=== PATIENT | female | born 1970 | race Caucasian/White ===

== ENCOUNTER 2017-08-28 12:02 | Emergency (ER) | payer BC ==
--- NOTE | 2017-08-28 12:58 | RAD REPORT ---
EXAM DESCRIPTION: CT - Head Brain Wo Cont - 08/28/2017 12:39 pm CLINICAL HISTORY: Numbness left-sided COMPARISON: 2015 TECHNIQUE: Computed axial tomography of the head was obtained. IV contrast was not requested. All CT scans are performed using dose optimization technique as appropriate and may include automated exposure control or mA/KV adjustment according to patient size. FINDINGS: An intracranial bleed is not seen . The ventricles are normal in caliber. No extra-axial fluid collection is noted. Fluid within the sinuses/ mastoids is not seen. IMPRESSION: No acute intracranial abnormality is seen. If patient's symptoms persist MRI of the bra in would be recommended.
--- NOTE | 2017-08-28 13:27 | RAD REPORT ---
EXAM DESCRIPTION: RAD - Chest Single View - 08/28/2017 1:04 pm CLINICAL HISTORY: Left-sided chest pain COMPARISON: September 2016 TECHNIQUE: AP portable chest image was obtained 1243 hours . FINDINGS: Lung volumes are low. Lung kerr are clear. No failure or volume overload. Lung markings are similar to comparison. Heart and vasculature are normal. No measurable pleural effusion and no pn eumothorax. No gross bony abnormality seen. No acute aortic findings suspected. IMPRESSION: No acute cardiopulmonary process. No significant change from comparison.
--- NOTE | 2017-08-28 13:34 | EKG ---
Test Date: 2017-08-28 Test Time: 12:09:00 Timber Selector: DEVIKA MEASUREMENT RESULTS: Intervals: Rate: 91 CT: 182 QRSD: 92 QT: 368 QTc: 452 [place]: P: 49 CT: 182 QRS: 24 T: 16 INTERPRETIVE STATEMENTS: Normal sinus rhythm Normal ECG Compared to ECG 10/17/2016 19:26:30 No significant changes Electronically Signed On 08-28-17 13:34:09 CDT by Eleazar Maxwell
[2017-08-28 14:02] LABS: Absolute Monocytes 0.7 K/uL (0.1-1.3); Absolute Neutrophil 6.9 K/uL (1.8-8.0); Basophils % 0.2 % (0-1.3); Eosinophils % 1.1 % (0-4.4); Hematocrit 40.4 % (36.0-45.0); Lymphocytes % 20.4 % (15.3-44.8); MCH 26.6 pg (27.0-35.0); MPV 9.1 fL (7.6-11.3); Monocytes % 7.3 % (3.3-12.3); RBC Red Blood Cell Count 4.99 M/uL (3.86-4.86)
[2017-08-28 14:05] LABS: Protime INR 1.01
[2017-08-28 14:09] LABS: Potassium 4.1 mEq/L (3.6-5.0)
[2017-08-28 14:15] LABS: Albumin 3.9 g/dL (3.2-5.5); Bilirubin Direct 0.1 mg/dL (0-0.2); Bilirubin Total 0.5 mg/dL (0.3-1.2); Protein, Total 7.4 g/dL (6.0-8.3)
[2017-08-28] MEDS ORDERED: FENTANYL CITR 100 MCG/2 ML ONE (14:37)
[2017-08-28] MEDS ORDERED: INSULIN -REGULAR HUMAN 50 UNIT/0.5 ML ML ONE ×2 (14:37→18:06)
[2017-08-28] MEDS ORDERED: NA CHLORIDE 0.9% 1,000 ML ONE ×2 (14:37→18:06)
[2017-08-28] MEDS ORDERED: ONDANSETRON 4 MG/2 ML VIAL ONE (16:02)
[2017-08-28] MEDS ORDERED: ASPIRIN 81 MG CHEWABLE TABLET ONE (16:28)
[2017-08-28 17:15] LABS: Urine Blood NEGATIVE (NEG); Urine Glucose 3+ (NEG); Urine Protein 1+ (NEG); Urine Specific Gravity 1.025 (1.005-1.030)
--- NOTE | 2017-08-28 17:22 | ER ---
Nurse's Notes [facility] Name: Elly Clarke Age: 47 yrs Sex: Female : 1970 Arrival Date: 08/28/2017 Time: 12:03 Bed 8 Private MD: Pavel Curran T Diagnosis: Suspected CVA;Hyperglycemia, unspecified Presentation: 08/28 12:04 Presenting complaint: EMS states: at 0300 this morning pt reports numbness to the left sg side, CP, and nausea. pt denies F/V/D, reports chronic pain, chronic pancreatitis, Diabetes, hypertension, changes made in BP medications, new BP medications made but cannot remember the names of the meds, was taken off the propranolol. Transition of care: patient was not received from another setting of care. Onset of symptoms was August 28, 2017. Risk Assessment: Do you want to hurt yourself or someone else? Patient reports no desire to harm self or others. Initial Sepsis Screen: Does the patient meet any 2 criteria? No. Patient's initial sepsis screen is negative. Does the patient have a suspected source of infection? No. Patient's initial sepsis screen is negative. Care prior to arrival: Medication(s) given: ASA, 325 mg, Glucose check: 390. 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 12:04 Method Of Arrival: EMS: [facility] sg 12:04 Acuity: HANNAH 3 sg Historical: - Allergies: 12:10 Claritin (insomnia); sg 12:10 Compazine (Seizures); sg 12:10 Demerol (HEART RACING); sg 12:10 (Hives); sg 12:10 Morphine (RACING HEART); sg 12:10 mushrooms; sg - Home Meds: 12:10 Klonopin 0.5 mg Oral tab 1 tab 2 times per day [Active]; Metformin Oral [Active]; sg Abilify Oral [Active]; Celexa Oral [Active]; tizanidine Oral BID [Active]; - PMHx: 12:10 Arthritis; Chrohns; Chronic pain; Diabetes - NIDDM; Dramatic migraine events; sg Gastroparesis; High Cholesterol; Hypertension; Pancreatitis; spinal stenosis; - PSHx: 12:10 Tonsillectomy; Hysterectomy; Knee surgery; Cholecystectomy; sg - Immunization history:: Adult Immunizations up to date. - Social history:: Smoking status: Patient/guardian denies using tobacco. - Ebola Screening: : Patient negative for fever greater than or equal to 101.5 degrees Fahrenheit, and additional compatible Ebola Virus Disease symptoms Patient denies exposure to infectious person Patient denies travel to an Ebola-affected area in the 21 days before illness onset No symptoms or risks identified at this time. Screenin:12 Abuse screen: Denies threats or abuse. Denies injuries from another. Nutritional sg screening: No deficits noted. Tuberculosis screening: No symptoms or risk factors identified. Never had TB. Fall Risk None identified. 13:00 The patient has not been NPO before screening. The patient is alert, able to follow sg commands. The patient does not exhibit slurred or garbled speech The patient is not exhibiting difficulty speaking. The patient does not exhibit difficulty understanding words. The patient is able to swallow own secretions with no drooling or need for suction. Patient tolerated one teaspoon of water. No drooling, immediate coughing, gurgling, or clearing of the throat was noted. The patient tolerated 90mL of water. No drooling, immediate coughing, gurgling, or clearing of the throat was noted. The patient passed the bedside swallow screening. Oral medications may be given as ordered. Contact Physician for further diet orders. Provider notified of bedside swallow screening results: Lj CHOWDARY. Assessment: 12:10 General: Appears in no apparent distress. comfortable, well groomed, well developed, sg well nourished, Behavior is cooperative, appropriate for age, anxious. Pain: Complains of pain in chest, left arm and left leg Pain currently is 10 out of 10 on a pain scale. Quality of pain is described as aching. Pain: Pain does not radiate. Pain began 0300. Neuro: Level of Consciousness is awake, alert, obeys commands, Oriented to person, place, time, situation, Insulator Technician are equal bilaterally Moves all extremities. Speech is normal, Facial symmetry appears normal. Cardiovascular: Heart tones S1 S2 present Capillary refill is brisk in bilateral fingers Patient's skin is warm and dry. Chest pain is denied. Respiratory: Airway is patent Respiratory effort is even, unlabored, Respiratory pattern is regular, symmetrical. GI: No signs and/or symptoms were reported involving the gastrointestinal system. : No signs and/or symptoms were reported regarding the genitourinary system. EENT: No signs and/or symptoms were reported regarding the EENT system. Derm: Skin is pink, warm \\T\\ dry. Musculoskeletal: Reports numbness in left arm and left leg. 12:10 Neuro: Reports numbness in left arm and left leg describes the sensation in legs as a sg "stepping on sharp pins feeling." Denies weakness blurred vision dizziness, difficulty swallowing, headache photophobia diplopia. 14:38 Reassessment: Patient appears in no apparent distress at this time. Patient and/or sg family updated on plan of care and expected duration. Pain level reassessed. at bedside at this time Patient states symptoms have not improved. 15:50 Reassessment: Patient appears in no apparent distress at this time. Patient and/or sg family updated on plan of care and expected duration. Pain level reassessed. Patient is alert, oriented x 3, equal unlabored respirations, skin warm/dry/pink. pt reports numbness continues, denies worsening s/s at this time, will continue to monitor Patient states symptoms have not improved. 16:20 Reassessment: Patient appears in no apparent distress at this time. Patient and/or sg family updated on plan of care and expected duration. Pain level reassessed. Patient is alert, oriented x 3, equal unlabored respirations, skin warm/dry/pink. pt requesting more pain medication at this time, Lj CHOWDARY notified, awaiting new orders at this time. 17:49 Reassessment: pt assisted to the restroom, pt ambulatory to wheelchair, no problems sg encountered while using the restroom per pt report, pt assisted back to bed, placed back to monitors, bed in low and locked position, call light within reach, srx2, no new orders received at this time. Vital Signs: 12:11 BP 107 / 60; Pulse 90; Resp 19 S; Temp 98.4; Pulse Ox 96% ; Weight 81.65 kg (R); Pain sg 10/10; 17:47 BP 106 / 82; Pulse 78; Resp 16; Pulse Ox 98% on R/A; Pain 6/10; sg Bird Coma Score: 12:20 Eye Response: spontaneous(4). Verbal Response: oriented(5). Motor Response: obeys sg commands(6). Total: 15. NIH Stroke Scale Scores: 16:57 NIHSS Score: 1 jr8 ED Course: 12:03 Patient arrived in ED. sg 12:03 Pavel Curran MD is Private Physician. sg 12:03 Arm band placed on. sg 12:08 Triage completed. sg 12:09 Lj Love PA is PHCP. jr8 12:09 Norman Pollack MD is Attending Physician. jr8 12:10 Patient has correct armband on for positive identification. cafeteria monitor on. Pulse sg ox on. NIBP on. 12:15 EKG done, by echo vascular technologist. reviewed by Lj CHOWDARY. at1 12:[address] via wheelchair. sw 12:38 CT completed. Patient tolerated procedure well. Patient moved back from CT. sj 12:39 CT Head Brain wo Cont In Process Unspecified. EDMS 12:52 Pillow given. bd 12:55 Missed attempt(s): 24 gauge in right hand. Bleeding controlled, band aid applied, dh3 catheter tip intact. 13:03 Missed attempt(s): 24 gauge in right elbow. Bleeding controlled, band aid applied, dh3 catheter tip intact. 13:05 XRAY Chest (1 view) In Process Unspecified. EDMS 13:08 X-ray completed. Portable x-ray completed in exam room. Patient tolerated procedure mh1 well. 13:10 Missed attempt(s): 20 gauge in right upper arm. Bleeding controlled, band aid applied, aa5 catheter tip intact. 13:13 Missed attempt(s): 24 gauge in right upper arm. Bleeding controlled, band aid applied, aa5 catheter tip intact. 13:14 Facundo Martinez, RN is Primary Nurse. sg 13:15 Missed attempt(s): 22 gauge in left forearm. Bleeding controlled, band aid applied, aa5 catheter tip intact. 13:30 Initial lab(s) drawn, by me, sent to lab. Inserted saline lock: 22 gauge in left sv antecubital area, using aseptic technique. ,using aseptic technique. diffusics Blood collected. Flushed left antecubital with 5 ml normal saline. 14:26 Notified Nurse Practitioner and/or Physician Fighting Vehicle Systems Maintainer of a critical lab result(s), aa5 glucose 534. 16:48 Urine collected: clean catch specimen, sediment noted, orange. dh3 18:50 No provider procedures requiring assistance completed. Patient transferred, IV remains sg in place. intact, No redness/swelling at site. Pressure dressing applied. Patient maintains SpO2 saturation greater than 95% on room air. Administered Medications: 14:40 Drug: fentaNYL (PF) 25 mcg Route: IVP; Site: left antecubital; sg 15:45 Follow up: Response: No adverse reaction; Pain is decreased sg 14:40 Drug: NS 0.9% 1000 ml Route: IV; Rate: 1000 ml; Site: left antecubital; sg 14:50 Drug: Insulin Regular Human 10 units {Co-Signature: yesika (Julianne Mariee RN).} Route: sg IVP; Site: left antecubital; 16:34 Follow up: Response: Blood sugar is lowered sg 16:00 Drug: Zofran 4 mg Route: IVP; Site: left antecubital; sg 16:33 Follow up: Response: No adverse reaction; Nausea is decreased sg 16:33 Drug: Aspirin Chewable Tablet 324 mg Route: PO; sg 17:15 Follow up: Response: No adverse reaction sg 17:30 Drug: fentaNYL (PF) 25 mcg Route: IVP; Site: left antecubital; sg 18:00 Drug: Insulin Regular Human 5 units {Co-Signature: sv (Julianne Mariee RN).} Route: sg Sub-Q; Site: right upper arm; 18:00 Drug: Rocephin - (cefTRIAXone) 2 grams Route: IVPB; Infused Over: 30 mins; Site: left sg antecubital; 18:22 Drug: NS 0.9% 1000 ml Route: IV; Rate: 75 ml/hr; Site: left antecubital; sg 18:25 Drug: LanTUS 15 units Route: Sub-Q; Site: right upper arm; Point of Care Testing: Blood Glucose: 16:20 Blood Glucose: 308 mg/dL; dh3 Ranges: Outcome: 17:21 ER care complete, transfer ordered by MD. rushing 18:50 Transferred by ground EMS to [facility], Transfer form completed. sg 18:50 Condition: stable 18:50 Instructed on the need for transfer, safety practices, Demonstrated understanding of instructions. 18:57 Patient left the ED. NIH Stroke Scale - NIH Stroke Score Date: 08/28/2017 Time: 16:57 Total Score = 1 1a. Level of Consciousness (LOC) - 0(Alert) 1b. Level of Consciousness (LOC) (Year \\T\\ Age) - 0(Both) 1c. LOC Commands (Open \\T\\ Closes Eyes/Director Of Quality) - 0(Both) 2. Best Gaze (Lateral Gaze Paresis) - 0(Normal) 3. Visual Field Loss - 0(No visual loss) 4. Facial Palsy - 0(Normal) 5a. Left Arm: Motor (10-second hold) - 0(No drift) 5b. Right Arm: Motor (10-second hold) - 0(No drift) 6a. Left Leg: Motor (5-second hold - always test supine) - 0(No drift) 6b. Right Leg: Motor (5-second hold - always test supine) - 0(No drift) 7. Limb Ataxia (finger/nose \\T\\ heel/salazar - test with eyes open) - 1(Present in one limb) 8. Sensory Loss (pinprick arms/legs/face) - 0(Normal) 9. Best Language: Aphasia (description/naming/reading) - 0(No aphasia) 10. Dysarthria (speech clarity - read or repeat words) - 0(Normal) 11. Extinction and Inattention (visual/tactile/auditory/spatial/personal) - 0(No abnormality) Initials: сергей Addendum: 09/02/2017 17:51 Addendum: Culture Results: Positive urine culture. Phone call Attempt #[address] [facility] who state that patient has been discharged home. PT had no complaints of UTI. Signatures: Dispatcher [employer] EDMS Maribel Marin Stephanie, RN RN sv Facundo Martinez RN RN sg Aliza Tariq Susan sj Calderon, Audri, RN RN earl5 Akiko Meyers RN RN Lj Love PA PA jrDeanna neville, day care provider EKG Tat1 Keily Cuenca Deanna 3 Julianne Mariee RN sv Corrections: (The following items were deleted from the chart) 08/28 14:51 14:40 fentaNYL (PF) 50 mcg IVP in left antecubital sg sg
--- NOTE | 2017-08-28 17:22 | EDPHYS ---
Physician Documentation [facility] Name: Elly Clarke Age: 47 yrs Sex: Female : 1970 Arrival Date: 08/28/2017 Time: 12:03 Bed 8 Private MD: Pavel Curran T ED Physician Norman Pollack HPI: 08/28 13:59 This 47 yrs old Female presents to ER via EMS with complaints of Chest Pain > jr8 29 y/o, Numbness. 13:59 The patient or guardian reports chest pain that is located primarily in the anterior jr8 chest wall, left. Onset: acutely, today. The pain radiates to the left arm. Associated signs and symptoms: Pertinent positives: numbness and weakness of left arm. The chest pain is described as a pressure. Duration: The patient or guardian reports a single episode. Modifying factors: The symptoms are alleviated by nothing. the symptoms are aggravated by nothing. Severity of pain: At its worst the pain was moderate in the emergency department the pain is unchanged. The patient has not experienced similar symptoms in the past. The patient has not recently seen a physician. 14:06 Patient stated that s/s started early this morning around 3 am . jr8 Historical: - Allergies: 12:10 Claritin (insomnia); sg 12:10 Compazine (Seizures); sg 12:10 Demerol (HEART RACING); sg 12:10 (Hives); sg 12:10 Morphine (RACING HEART); sg 12:10 mushrooms; sg - Home Meds: 12:10 Klonopin 0.5 mg Oral tab 1 tab 2 times per day [Active]; Metformin Oral [Active]; sg Abilify Oral [Active]; Celexa Oral [Active]; tizanidine Oral BID [Active]; - PMHx: 12:10 Arthritis; Chrohns; Chronic pain; Diabetes - NIDDM; Dramatic migraine events; sg Gastroparesis; High Cholesterol; Hypertension; Pancreatitis; spinal stenosis; - PSHx: 12:10 Tonsillectomy; Hysterectomy; Knee surgery; Cholecystectomy; sg - Immunization history:: Adult Immunizations up to date. - Social history:: Smoking status: Patient/guardian denies using tobacco. - Ebola Screening: : Patient negative for fever greater than or equal to 101.5 degrees Fahrenheit, and additional compatible Ebola Virus Disease symptoms Patient denies exposure to infectious person Patient denies travel to an Ebola-affected area in the 21 days before illness onset No symptoms or risks identified at this time. ROS: 13:59 Eyes: Negative for injury, pain, redness, and discharge, ENT: Negative for injury, jr8 pain, and discharge, Neck: Negative for injury, pain, and swelling, Respiratory: Negative for shortness of breath, cough, wheezing, and pleuritic chest pain, Abdomen/GI: Negative for abdominal pain, nausea, vomiting, diarrhea, and constipation, Back: Negative for injury and pain, MS/Extremity: Negative for injury and deformity, Skin: Negative for injury, rash, and discoloration. 13:59 Cardiovascular: Positive for chest pain, Negative for edema, orthopnea, palpitations, paroxysmal nocturnal dyspnea. 13:59 Neuro: Positive for numbness, weakness, of the left arm. Exam: 13:59 Eyes: Pupils equal round and reactive to light, extra-ocular motions intact. Lids and jr8 lashes normal. Conjunctiva and sclera are non-icteric and not injected. Cornea within normal limits. Periorbital areas with no swelling, redness, or edema. ENT: Nares patent. No nasal discharge, no septal abnormalities noted. Tympanic membranes are normal and external auditory canals are clear. Oropharynx with no redness, swelling, or masses, exudates, or evidence of obstruction, uvula midline. Mucous membranes moist. Neck: Trachea midline, no thyromegaly or masses palpated, and no cervical lymphadenopathy. Supple, full range of motion without nuchal rigidity, or vertebral point tenderness. No Meningismus. Cardiovascular: Regular rate and rhythm with a normal S1 and S2. No gallops, murmurs, or rubs. Normal PMI, no JVD. No pulse deficits. Respiratory: Lungs have equal breath sounds bilaterally, clear to auscultation and percussion. No rales, rhonchi or wheezes noted. No increased work of breathing, no retractions or nasal flaring. Abdomen/GI: Soft, non-tender, with normal bowel sounds. No distension or tympany. No guarding or rebound. No evidence of tenderness throughout. Back: No spinal tenderness. No costovertebral tenderness. Full range of motion. Skin: Warm, dry with normal turgor. Normal color with no rashes, no lesions, and no evidence of cellulitis. MS/ Extremity: Pulses equal, no cyanosis. Neurovascular intact. Full, normal range of motion. 13:59 Neuro: Orientation: to person, place \T\ time. Mentation: is normal, Memory: is normal, Cranial nerves: CN I not tested, CN II- XII are normal as tested, visual kerr are intact. extraocular movements are intact, Facial palsy and sensory deficits are absent. Nystagmus is absent. Speech is clear and appropriate. Tongue strength is normal, Cerebellar function: normal finger to nose testing, heel to salazar testing is normal, Motor: moves all fours, strength is 5/5 in the right arm, strength is 4/5 in the left arm, Sensation: no obvious gross deficits, seizure activity, is not displayed by the patient, Abnormal movements: there are no abnormal movements. Vital Signs: 12:11 BP 107 / 60; Pulse 90; Resp 19 S; Temp 98.4; Pulse Ox 96% ; Weight 81.65 kg (R); Pain sg 10/10; 17:47 BP 106 / 82; Pulse 78; Resp 16; Pulse Ox 98% on R/A; Pain 6/10; sg NIH Stroke Scale Scores: 16:57 NIHSS Score: 1 jr8 Bird Coma Score: 12:20 Eye Response: spontaneous(4). Verbal Response: oriented(5). Motor Response: obeys sg commands(6). Total: 15. MDM: 12:09 Patient medically screened. 8 16:04 HEART Score: History: Moderately Suspicious (1), ECG: Normal (0), Age: > 45 and < 65 jr8 years (1), Risk Factors: 1 or 2 risk factors (1), [Hypertension] [DM]. The patient was given aspirin in the Emergency Department. Data reviewed: vital signs, nurses notes, lab test result(s), EKG, radiologic studies, CT scan, plain films. 17:18 ED course: Discussed plan of care with Dr. Parker and patient. Patient consented to 8 being transferred since she has metal in abdomen and near spine and kidneys are too bad to do CTA head. Dr. Montenegro accepted at [facility] . ED course: Patient with suspected stroke but well outside TPA window. No TPA given for that reason . 08/28 12:10 Order name: Basic Metabolic Panel; Complete Time: 14:28 08/28 12:10 Order name: BNP; Complete Time: 15:27 08/28 12:10 Order name: CBC with Diff; Complete Time: 14:28 08/28 12:10 Order name: CPK; Complete Time: 14:28 08/28 12:10 Order name: LFT's; Complete Time: 14:28 08/28 12:10 Order name: Magnesium; Complete Time: 14:28 08/28 12:10 Order name: PT-INR; Complete Time: 14:28 08/28 12:10 Order name: Troponin (emerg Dept Use Only); Complete Time: 14:28 08/28 12:10 Order name: XRAY Chest (1 view); Complete Time: 13:28 08/28 12:10 Order name: CT Head Brain wo Cont; Complete Time: 13:12 08/28 16:48 Order name: Urine Microscopic Only; Complete Time: 17:46 3 08/28 17:14 Order name: Urine Dipstick--Ancillary (enter results); Complete Time: 17:21 5 08/28 17:14 Order name: Urine --Ancillary (enter results); Complete Time: 17:21 08/28 17:24 Order name: Urine Culture [facility] 08/28 12:10 Order name: EKG; Complete Time: 12:10 08/28 12:10 Order name: Cardiac monitoring; Complete Time: 13:49 08/28 12:10 Order name: EKG - Nurse/Tech; Complete Time: 13:49 08/28 12:10 Order name: IV Saline Lock; Complete Time: 13:43 08/28 12:10 Order name: Labs collected and sent; Complete Time: 13:43 08/28 12:10 Order name: O2 Per Protocol; Complete Time: 13:49 08/28 12:10 Order name: O2 Sat Monitoring; Complete Time: 13:49 08/28 12:10 Order name: Urine Dipstick-Ancillary (obtain specimen); Complete Time: 14:45 Administered Medications: 14:40 Drug: fentaNYL (PF) 25 mcg Route: IVP; Site: left antecubital; sg 15:45 Follow up: Response: No adverse reaction; Pain is decreased sg 14:40 Drug: NS 0.9% 1000 ml Route: IV; Rate: 1000 ml; Site: left antecubital; sg 14:50 Drug: Insulin Regular Human 10 units {Co-Signature: yesika (Julianne Mariee RN).} Route: sg IVP; Site: left antecubital; 16:34 Follow up: Response: Blood sugar is lowered sg 16:00 Drug: Zofran 4 mg Route: IVP; Site: left antecubital; sg 16:33 Follow up: Response: No adverse reaction; Nausea is decreased sg 16:33 Drug: Aspirin Chewable Tablet 324 mg Route: PO; sg 17:15 Follow up: Response: No adverse reaction sg 17:30 Drug: fentaNYL (PF) 25 mcg Route: IVP; Site: left antecubital; sg 18:00 Drug: Insulin Regular Human 5 units {Co-Signature: sv (Julianne Mariee RN).} Route: sg Sub-Q; Site: right upper arm; 18:00 Drug: Rocephin - (cefTRIAXone) 2 grams Route: IVPB; Infused Over: 30 mins; Site: left sg antecubital; 18:22 Drug: NS 0.9% 1000 ml Route: IV; Rate: 75 ml/hr; Site: left antecubital; sg 18:25 Drug: LanTUS 15 units Route: Sub-Q; Site: right upper arm; sg Point of Care Testing: Blood Glucose: 16:20 Blood Glucose: 308 mg/dL; dh3 Ranges: Critical Glucose Levels:Adult <50 mg/dl or >400 mg/dl <40 mg/dl or >180 mg/dl Disposition: 08/28/17 17:21 Transfer ordered to [facility]. Diagnosis are Suspected CVA, Hyperglycemia, unspecified. - Reason for transfer: Higher level of care. - Accepting physician is Lan. - Condition is Stable. - Problem is new. - Symptoms have improved. NIH Stroke Scale - NIH Stroke Score Date: 08/28/2017 Time: 16:57 Total Score = 1 1a. Level of Consciousness (LOC) - 0(Alert) 1b. Level of Consciousness (LOC) (Year \T\ Age) - 0(Both) 1c. LOC Commands (Open \T\ Closes Eyes/Corner Cutter Machine Operator) - 0(Both) 2. Best Gaze (Lateral Gaze Paresis) - 0(Normal) 3. Visual Field Loss - 0(No visual loss) 4. Facial Palsy - 0(Normal) 5a. Left Arm: Motor (10-second hold) - 0(No drift) 5b. Right Arm: Motor (10-second hold) - 0(No drift) 6a. Left Leg: Motor (5-second hold - always test supine) - 0(No drift) 6b. Right Leg: Motor (5-second hold - always test supine) - 0(No drift) 7. Limb Ataxia (finger/nose \T\ heel/salazar - test with eyes open) - 1(Present in one limb) 8. Sensory Loss (pinprick arms/legs/face) - 0(Normal) 9. Best Language: Aphasia (description/naming/reading) - 0(No aphasia) 10. Dysarthria (speech clarity - read or repeat words) - 0(Normal) 11. Extinction and Inattention (visual/tactile/auditory/spatial/personal) - 0(No abnormality) Initials: jr8 Addendum: 08/30/2017 13:30 Co-signature as Attending Physician, Norman Pollack MD. Signatures: Dispatcher [employer] EDNM Facundo Martinez RN RN Marie Alegria RN RN aa5 Lj Love PA PA jr8 Norman Pollack MD MD Julianne Mariee RN sv Corrections: (The following items were deleted from the chart) 08/28 13:18 13:13 Brain Wo Cont+[email or web address].RAD.[email or web address] ordered. EDNM EDMS 16:58 12:09 NIHSS Score: 0 jr8 jr8 18:57 17:21 08/28/2017 17:21 Transfer ordered to [facility]. sg Diagnosis is Suspected CVA; Hyperglycemia, unspecified. Reason for transfer: Higher level of care. Accepting physician is Lan. Condition is Stable. Problem is new. Symptoms have improved. jr8
[2017-08-28 17:23] LABS: Urine Bacteria 20-50 /HPF (<20); Urine Culture Reflex Order REFLEXED; Urine RBC <5 /HPF (NONE SEEN)
[2017-08-28] MEDS ORDERED: CEFTRIAXONE/SWI 1gm 2 GM/20 ML SYR ONE (18:08)
[2017-08-28] MEDS ORDERED: INSULIN DETEMIR 100 UNIT/1 ML INSULIN SQ ONE (18:48)
[2017-08-28 19:01] VITALS: TEMP 98.4
[2017-08-28 19:02] VITALS: BP 106/82; O2SAT 98
== END 2017-08-28 18:57 | disposition short-term general hospital (02) ==
LOC: ER 12:02
DX: E11.65 Type 2 diabetes mellitus with hyperglycemia (principal); R07.9 Chest pain, unspecified; I10 Essential (primary) hypertension; E78.00 Pure hypercholesterolemia, unspecified; Z88.5 Allergy status to narcotic agent; Z88.8 Allergy status to other drugs, medicaments and biological substances; Z91.018 Allergy to other foods
CPT/HCPCS: 36415; 70450; 71045; 80048; 80076; 81003; 81015; 81025; 82550; 82962; 83735; 83880; 84484; 85025; 85610; 87077; 87086; 87088; 87186; 93005; 96372; 96374; 96375; 99285; J0696; J2405; J3010; J7030

== ENCOUNTER 2017-11-03 18:25 | Emergency (ER) | payer BC, SELFPAY ==
--- OUTSIDE RECORDS SUMMARY | 2017-11-03 18:28 | XMS REPORT ---
:1970 Author Organization [facility] Address [address] [place] [address] Dr. Kumar [address] [place] [address] Care Team Providers Name Role Phone HARINI HUTTON Unavailable Unavailable Problems This patient has no known problems. Allergies, Adverse Reactions, Alerts This patient has no known allergies or adverse reactions. Medications This patient has no known medications. Results Test Description Test Time Test Comments Text Results Atomic Results Result Comments POCT-GLUCOSE METER 2017-09-01 17:07:00 Test Item Value Reference Range Comments POC-GLUCOSE METER (BEAKER) (test 298 mg/dL 70-110 TESTED AT [address] vphf=5053) [place] [id number] POCT-GLUCOSE [id number] 12:11:00 Test Item Value Reference Range Comments POC-GLUCOSE METER (BEAKER) 331 mg/dL 70-110 Notified NAT SOUZA/TESTED AT [facility] (test dyhy=2414) [address] [place], [place] [id number] POCT-GLUCOSE [id number] 10:55:00 Test Item Value Reference Range Comments POC-GLUCOSE METER (BEAKER) 365 mg/dL 70-110 TESTED AT [address] (test qdgd=5173) [place] [id number] POCT-GLUCOSE [id number] 08:44:00 Test Item Value Reference Range Comments POC-GLUCOSE METER (BEAKER) 291 mg/dL 70-110 TESTED AT [address] (test kncq=3443) [place] [address] LIPID [id number] 05:56:00 Test Item Value Reference Range Comments TRIGLYCERIDES (BEAKER) (test hhfn=425) 279 mg/dL CHOLESTEROL (BEAKER) (test dawn=927) 119 mg/dL HDL CHOLESTEROL (BEAKER) (test wbwe=684) 22 mg/dL LDL CHOLESTEROL CALCULATED (BEAKER) (test 41 mg/dL qwjh=722) Triglyceride Reference Range: Low Risk <150 Borderline 150- 199 High Risk 200-499 Very High Risk >=500Cholesterol Reference Range: Low Risk <200 Borderline 200-239 High Risk > 240HDL Cholesterol Reference Range: Low Risk >=60 High Risk <40LDL Cholesterol Reference Range: Optimal <100 Near Optimal 100-129 Borderline 130-159 High 160-189 Very High >=190POCT-GLUCOSE [id number] 21:50:00 Test Item Value Reference Range Comments POC-GLUCOSE METER (BEAKER) 318 mg/dL 70-110 TESTED AT [address] (test plap=8700) [place] [id number] POCT-GLUCOSE [id number] 18:04:00 Test Item Value Reference Range Comments POC-GLUCOSE METER (BEAKER) 238 mg/dL 70-110 TESTED AT [address] (test chej=1712) [facility] [address] POCT-GLUCOSE [id number] 12:22:00 Test Item Value Reference Range Comments POC-GLUCOSE METER (BEAKER) 290 mg/dL 70-110 TESTED AT [address] (test bcua=4954) [facility] [address] POCT-GLUCOSE [id number] 09:20:00 Test Item Value Reference Range Comments POC-GLUCOSE METER (BEAKER) 293 mg/dL 70-110 TESTED AT [address] (test zwhv=2528) [place] [id number] POCT-GLUCOSE [id number] 21:00:00 Test Item Value Reference Range Comments POC-GLUCOSE METER (BEAKER) 225 mg/dL 70-110 TESTED AT [address] (test qhnv=2707) [facility] [address] CT, CAROTID, [id number] 18:01:00FINAL REPORT CT angiogram of the upper chest, neck, and head Comparison: Head CT August 29 Reason for exam: Stroke Discussion: Multiple axial CT images of the upper chest, neck, and head were obtained using CT angiography technique. 2-D and 3-D reconstructed images were provided. 3D MIP images were generated. NASCET criteria are utilized when considering stenosis. Please note that CTA is inherently insensitive in evaluating the cavernous and skullbase portions of the internal carotid arteries because of adjacent bone and venous opacification. Dose modulation, iterative reconstruction, and/or weight based adjustment of the mA/kV was utilized to reduce the radiation doseto as low as reasonably achievable. There are suspected subtle microvascular changes but no specific evidence of acute abnormality. While I see no definitive acute large vessel infarction, please notethat CT is not sensitive in detecting or distinguishing acute ischemic disease. Normal flow upper chest aortic branches. Normal flow cervical segment vertebral arteries. There is mild atherosclerotic left carotid bulb plaque but no stenosis by NASCET criteria. Otherwise unremarkable cervical carotid systems. Normal flow intracranial internal carotid arteries and in the carotid terminus branches proximally. Normal vertebrobasilar and proximal posterior cerebral artery flow. There are prominent posterior communicating arteries. Normal flow intracranial venous drainage pathways. Impressions: Unremarkable CTA upper chest, neck, head. Signed: Iqra Petersen Verified Date/Time: 08/30/2017 18:01:31 Reading Location: [address] Neuro Reading [facility] [id number] 18:01:00FINAL REPORT CT angiogram of the upper chest, neck, and head Comparison: Head CT August 29 Reason for exam: Stroke Discussion: Multiple axial CT images of the upper chest, neck, and head were obtained using CT angiography technique. 2-D and 3-D reconstructed images were provided. 3D MIP images were generated. NASCET criteria are utilized when considering stenosis. Please note that CTA is inherently insensitive in evaluating the cavernous and skullbase portions of the internal carotid arteries because of adjacent bone and venous opacification. Dose modulation, iterative reconstruction, and/or weight based adjustment of the mA/kV was utilized to reduce the radiation doseto as low as reasonably achievable. There are suspected subtle microvascular changes but no specific evidence of acute abnormality. While I see no definitive acute large vessel infarction, please notethat CT is not sensitive in detecting or distinguishing acute ischemic disease. Normal flow upper chest aortic branches. Normal flow cervical segment vertebral arteries. There is mild atherosclerotic left carotid bulb plaque but no stenosis by NASCET criteria. Otherwise unremarkable cervical carotid systems. Normal flow intracranial internal carotid arteries and in the carotid terminus branches proximally. Normal vertebrobasilar and proximal posterior cerebral artery flow. There are prominent posterior communicating arteries. Normal flow intracranial venous drainage pathways. Impressions: Unremarkable CTA upper chest, neck, head. Signed: Iqra Peterseneport Verified Date/Time: 08/30/2017 18:01:31 Reading Location: [facility] [id number] Neuro Reading Room POCT-GLUCOSE [id number] 17:21: 00 Test Item Value Reference Range Comments POC-GLUCOSE METER (BEAKER) 256 mg/dL 70-110 TESTED AT [address] (test lkan=3162) [place] [address] POCT-GLUCOSE [id number] 12:00:00 Test Item Value Reference Range Comments POC-GLUCOSE METER (BEAKER) 289 mg/dL 70-110 TESTED AT [address] (test cmog=9734) [place] [address] BASIC METABOLIC [id number] 10:12:00 Test Item Value Reference Range Comments SODIUM (BEAKER) (test 137 meq/L 136-145 cgbb=212) POTASSIUM (BEAKER) (test 4.1 meq/L 3.5-5.1 gbox=944) CHLORIDE (BEAKER) (test 106 meq/L 98-107 zilu=407) CO2 (BEAKER) (test 24 meq/L 22-29 pxbo=341) BLOOD UREA NITROGEN 11 mg/dL 7-21 (BEAKER) (test igno=303) CREATININE (BEAKER) (test 0.81 mg/dL 0.57-1.25 hxry=673) GLUCOSE RANDOM (BEAKER) 264 mg/dL 70-105 (test jbfs=681) CALCIUM (BEAKER) (test 9.1 mg/dL 8.4-10.2 pazm=786) EGFR (BEAKER) (test 75 mL/min/1.73 sq m ESTIMATED GFR IS NOT qmnm=7094) ACCURATE CREATININE CLEARANCE IN PREDICTING GLOMERULAR FILTRATION RATE. ESTIMATED GFR IS NOT APPLICABLE FOR DIALYSIS PATIENTS. POCT-GLUCOSE [id number] 08:42:00 Test Item Value Reference Range Comments POC-GLUCOSE METER (BEAKER) 259 mg/dL 70-110 TESTED AT [address] (test nemi=0460) [place] [id number] TROPONIN [id number] 06:14:00 Test Item Value Reference Range Comments TROPONIN I (BEAKER) (test uqho=545) < ng/mL 0.00-0.03 Troponin I (TnI) levels must be interpreted in the context of the presenting symptoms and the clinical findings. Elevated TnI levels indicate myocardial damage, but are not specific for ischemic heart disease. Elevated TnI levels are seen in patients with other cardiac conditions (including myocarditis and congestive heart failure), and slight TnI elevations occur in patients with other conditions, including sepsis, renal failure, acidosis, acute neurological disease, and persistent tachyarrhythmia.CBC W/PLT COUNT & AUTO [id number] 06:09:00 Test Item Value Reference Range Comments WHITE BLOOD CELL COUNT (BEAKER) (test gxxl=896) 6.6 K/ L 3.5-10.5 RED BLOOD CELL COUNT (BEAKER) (test rgat=666) 4.40 M/ L 3.93-5.22 HEMOGLOBIN (BEAKER) (test klws=822) 11.8 GM/DL 11.2-15.7 HEMATOCRIT (BEAKER) (test ubzs=704) 36.1 % 34.1-44.9 MEAN CORPUSCULAR VOLUME (BEAKER) (test nfzx=801) 82.0 fL 79.4-94.8 MEAN CORPUSCULAR HEMOGLOBIN (BEAKER) (test 26.8 pg 25.6-32.2 ofjc=816) MEAN CORPUSCULAR HEMOGLOBIN CONC (BEAKER) (test 32.7 GM/DL 32.2-35.5 yfxl=941) RED CELL DISTRIBUTION WIDTH (BEAKER) (test 13.2 % 11.7-14.4 qdrl=582) PLATELET COUNT (BEAKER) (test robs=436) 231 K/CU MM 150-450 MEAN PLATELET VOLUME (BEAKER) (test ogic=346) 10.9 fL 9.4-12.3 NUCLEATED RED BLOOD CELLS (BEAKER) (test 0 /100 WBC 0-0 jwoi=975) NEUTROPHILS RELATIVE PERCENT (BEAKER) (test 50 % xaeh=682) LYMPHOCYTES RELATIVE PERCENT (BEAKER) (test 41 % iqjo=437) MONOCYTES RELATIVE PERCENT (BEAKER) (test 6 % nqeo=384) EOSINOPHILS RELATIVE PERCENT (BEAKER) (test 2 % hmom=388) BASOPHILS RELATIVE PERCENT (BEAKER) (test 1 % ysnc=525) NEUTROPHILS ABSOLUTE COUNT (BEAKER) (test 3.34 K/ L 1.56-6.13 vmbh=999) LYMPHOCYTES ABSOLUTE COUNT (BEAKER) (test 2.67 K/ L 1.18-3.74 tfnw=413) MONOCYTES ABSOLUTE COUNT (BEAKER) (test 0.40 K/ L 0.24-0.36 rfdg=630) EOSINOPHILS ABSOLUTE COUNT (BEAKER) (test 0.15 K/ L 0.04-0.36 vlfv=163) BASOPHILS ABSOLUTE COUNT (BEAKER) (test 0.03 K/ L 0.01-0.08 xrfa=716) IMMATURE GRANULOCYTES-RELATIVE PERCENT (BEAKER) 0 % 0-1 (test hjcv=4157) RAD, CHEST, 1 VIEW, NON [id number] 04:23:00Reason for exam:->chest painShould this be performed at the bedside?->YesFINAL REPORT Comparison examination: None No pneumothorax, focal pulmonary consolidation, or significant pleural effusion. Normal cardiomediastinal contours. Normal skeleton and soft tissues. Impression: No acute abnormality. Signed: Ervin Jenkins Verified Date/Time: 08/30/2017 04:23 :04 Reading Location: [address] Reading Room POCT-GLUCOSE [id number] 21:18:00 Test Item Value Reference Range Comments POC-GLUCOSE METER (BEAKER) 151 mg/dL 70-110 TESTED AT [address] (test nuer=3810) [facility] [address] POCT-GLUCOSE [id number] 17:59:00 Test Item Value Reference Range Comments POC-GLUCOSE METER (BEAKER) 146 mg/dL 70-110 TESTED AT [facility] [address] [facility] (test uyde=9826) [facility] [address] HEMOGLOBIN [id number] 15:56:00 Test Item Value Reference Range Comments HEMOGLOBIN A1C (BEAKER) (test oqjt=266) 13.7 % 4.3-6.1 CT, BRAIN, WITHOUT [id number] 14:52:00FINAL REPORT CT head without contrast. Comparisons: No Reason for exam: Follow up on stroke. Discussion: Multiple axial CT images of the head are provided without contrast evaluated in brain and bone windows. Dose modulation, iterative reconstruction, and/or weight based adjustment of the mA/kV was utilized to reduce the radiation dose to as low as reasonably achievable. There is no CT evidence of intracranial hemorrhage, mass-effect, hydrocephalus, shift, or extra-axial collections. While I see no definitive acute large vessel infarction, please note that CT is not sensitive in detecting or distinguishing acute ischemic disease. The visualized dural sinus regions, orbital contents, paranasal sinuses, bones and surrounding soft tissues are unremarkable. Impressions: 1. No specific evidence of acute intracranial abnormality. Consider follow-up MRI if appropriate. Signed: Iqra Petersen Verified Date/Time: 08/29/2017 14:52:09 Reading Location: [address] Neuro Reading Room POCT-GLUCOSE [id number] 14:17:00 Test Item Value Reference Range Comments POC-GLUCOSE METER (BEAKER) 423 mg/dL 70-110 Notified NAT SOUZA/TESTED AT [facility] (test fkcg=8269) [address] [facility] [address] VITAMIN [id number] 06:48:00 Test Item Value Reference Range Comments VITAMIN B12 (BEAKER) (test adfp=951) 300 pg/mL 213-816 TSH/FREE T4 IF [id number] 06:48:00 Test Item Value Reference Range Comments THYROID STIMULATING HORMONE (BEAKER) (test 1.55 uIU/mL 0.35-4.94 lgea=592) CBC W/PLT COUNT & AUTO [id number] 05:10:00 Test Item Value Reference Range Comments WHITE BLOOD CELL COUNT (BEAKER) (test stmz=327) 8.6 K/ L 3.5-10.5 RED BLOOD CELL COUNT (BEAKER) (test ulmt=900) 4.62 M/ L 3.93-5.22 HEMOGLOBIN (BEAKER) (test oatg=960) 12.2 GM/DL 11.2-15.7 HEMATOCRIT (BEAKER) (test riwz=536) 42.2 % 34.1-44.9 MEAN CORPUSCULAR VOLUME (BEAKER) (test lmaw=023) 91.3 fL 79.4-94.8 MEAN CORPUSCULAR HEMOGLOBIN (BEAKER) (test 26.4 pg 25.6-32.2 ppmp=999) MEAN CORPUSCULAR HEMOGLOBIN CONC (BEAKER) (test 28.9 GM/DL 32.2-35.5 rukg=100) RED CELL DISTRIBUTION WIDTH (BEAKER) (test 13.2 % 11.7-14.4 zfrt=225) PLATELET COUNT (BEAKER) (test jhpb=452) 80 K/CU MM 150-450 MEAN PLATELET VOLUME (BEAKER) (test tkcf=567) 10.9 fL 9.4-12.3 NUCLEATED RED BLOOD CELLS (BEAKER) (test 0 /100 WBC 0-0 oefb=510) NEUTROPHILS RELATIVE PERCENT (BEAKER) (test 45 % jnum=573) LYMPHOCYTES RELATIVE PERCENT (BEAKER) (test 46 % kpfq=855) MONOCYTES RELATIVE PERCENT (BEAKER) (test 6 % hkft=214) EOSINOPHILS RELATIVE PERCENT (BEAKER) (test 2 % vnix=357) BASOPHILS RELATIVE PERCENT (BEAKER) (test 1 % fgmo=886) NEUTROPHILS ABSOLUTE COUNT (BEAKER) (test 3.91 K/ L 1.56-6.13 rroa=399) LYMPHOCYTES ABSOLUTE COUNT (BEAKER) (test 3.95 K/ L 1.18-3.74 ttms=304) MONOCYTES ABSOLUTE COUNT (BEAKER) (test wfav=979) 0.54 K/ L 0.24-0.36 EOSINOPHILS ABSOLUTE COUNT (BEAKER) (test 0.13 K/ L 0.04-0.36 cldl=888) BASOPHILS ABSOLUTE COUNT (BEAKER) (test ysha=182) 0.07 K/ L 0.01-0.08 IMMATURE GRANULOCYTES-RELATIVE PERCENT (BEAKER) 0 % 0-1 (test wbwy=7602) URINALYSIS W/ [id number] 23:32:00 Test Item Value Reference Range Comments COLOR (BEAKER) (test szpe=994) Brown CLARITY (BEAKER) (test hlym=546) Hazy SPECIFIC GRAVITY UA (BEAKER) (test iept=973) 1.016 1.001-1.035 PH UA (BEAKER) (test bzqi=979) 5.0 5.0-8.0 PROTEIN UA (BEAKER) (test smfi=475) 30 mg/dL Negative GLUCOSE UA (BEAKER) (test qrcr=221) 300 mg/dL Negative KETONES UA (BEAKER) (test rein=254) Negative Negative BILIRUBIN UA (BEAKER) (test gjdj=538) Positive Negative BLOOD UA (BEAKER) (test ypaj=493) Negative Negative NITRITE UA (BEAKER) (test aqmd=830) Positive Negative LEUKOCYTE ESTERASE UA (BEAKER) (test vocp=257) Small Negative UROBILINOGEN UA (BEAKER) (test jhvq=090) 3.0 mg/dL 0.2-1.0 RBC UA (BEAKER) (test spjc=158) 2 /HPF WBC UA (BEAKER) (test cetr=125) 24 /HPF BACTERIA (BEAKER) (test xryv=002) Many MUCUS (BEAKER) (test ctci=7005) Rare SQUAMOUS EPITHELIAL (BEAKER) (test tvuu=546) 7 /HPF HYALINE CASTS (BEAKER) (test bnjz=382) 16 /LPF CASTS (BEAKER) (test iftz=8910) 16 /LPF YEAST (BEAKER) (test unzv=7602) Occasional SOURCE(BEAKER) (test umdq=3962) TROPONIN [id number] 23:12:00 Test Item Value Reference Range Comments TROPONIN I (BEAKER) (test tggb=506) < ng/mL 0.00-0.03 Troponin I (TnI) levels must be interpreted in the context of the presenting symptoms and the clinical findings. Elevated TnI levels indicate myocardial damage, but are not specific for ischemic heart disease. Elevated TnI levels are seen in patients with other cardiac conditions (including myocarditis and congestive heart failure), and slight TnI elevations occur in patients with other conditions, including sepsis, renal failure, acidosis, acute neurological disease, and persistent tachyarrhythmia.BASIC METABOLIC [id number] 23:05:00 Test Item Value Reference Range Comments SODIUM (BEAKER) (test 128 meq/L 136-145 hplg=803) POTASSIUM (BEAKER) (test 4.9 meq/L 3.5-5.1 Specimen moderately yrnr=437) hemolyzed CHLORIDE (BEAKER) (test 100 meq/L 98-107 mgft=183) CO2 (BEAKER) (test 13 meq/L 22-29 dhom=401) BLOOD UREA NITROGEN 29 mg/dL 7-21 (BEAKER) (test tkey=655) CREATININE (BEAKER) (test 1.55 mg/dL 0.57-1.25 Specimen moderately gjmn=486) hemolyzed GLUCOSE RANDOM (BEAKER) 326 mg/dL 70-105 (test hmnt=245) CALCIUM (BEAKER) (test 9.6 mg/dL 8.4-10.2 oqai=544) EGFR (BEAKER) (test 36 mL/min/1.73 sq m ESTIMATED GFR IS NOT orcw=9545) ACCURATE CREATININE CLEARANCE IN PREDICTING GLOMERULAR FILTRATION RATE. ESTIMATED GFR IS NOT APPLICABLE FOR DIALYSIS PATIENTS. POCT-GLUCOSE [id number] 20:49:00 Test Item Value Reference Range Comments POC-GLUCOSE METER (BEAKER) 376 mg/dL 70-110 Notified NAT SOUZA/TESTED AT [facility] (test wsmq=0164) [address] [place] [address]
--- OUTSIDE RECORDS SUMMARY | 2017-11-03 18:28 | XMS REPORT | Clinical Summary ---
:1970 Author Organization [facility] Address [address] [place] [address] Phone Care Team Providers Name Role Phone Unavailable Primary Care Provider Unavailable Allergies Active Allergy Reactions Severity Noted Date Comments Loratadine-Pseudoephedrine Other (See Comments) 08/28/2017 hyperactivity Prochlorperazine Other (See Comments) 08/28/2017 Seizures Meperidine Rash Low 08/28/2017 Slfsckboe-Ntqipf-Iuuvsnrf-Scop Itching, Rash Low 08/28/2017 Morphine Rash Low 08/28/2017 Current Medications Prescription Sig. Disp. Refills Start End Date Status Date traMADol (ULTRAM) Take 50 mg by Active 50 mg tablet mouth 2 (two) times daily. butorphanol 1 spray by Nasal Active (STADOL) 10 mg/mL route every 4 nasal spray (four) hours as needed for Pain. amitriptyline Take 10 mg by Active (ELAVIL) 10 MG mouth nightly. tablet tiZANidine Take 4 mg by mouth Active (ZANAFLEX) 2 MG every 6 (six) tablet hours as needed. aspirin 81 MG Take 1 tablet (81 30 tablet 09/03/19 Active chewable tablet mg total) by mouth 8 19 daily. atorvastatin Take 1 tablet (20 30 tablet 09/02/19 Active (LIPITOR) 20 MG mg total) by mouth 8 19 tablet nightly. gabapentin Take 1 capsule 90 capsule 09/02/19 Active (NEURONTIN) 300 MG (300 mg total) by 8 19 capsule mouth 3 (three) times daily. zolpidem (AMBIEN) Take 10 mg by 09/02/19 Discontinued 10 mg tablet mouth every night 18 as needed for Insomnia. promethazine Take 1 tablet 30 tablet 0 09/09/19 (PHENERGAN) 12.5 (12.5 mg total) by 8 18 MG tablet mouth every 6 (six) hours as needed for up to 7 days. zolpidem (AMBIEN) Take 1 tablet (5 30 tablet 0 10/02/19 5 MG tablet mg total) by mouth 8 18 every night as needed for Insomnia for up to 30 days. Max Daily Amount: 5 mg insulin glargine Inject 15 Units 9 mL 0 10/02/19 (LANTUS) 100 subcutaneously 2 8 18 unit/mL injection (two) times daily for 30 days Use as directed. 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);Neuropathic pain after 11/02/2016 Social History Tobacco Use Types Packs/Day Years Used Date Never Smoker Smokeless Tobacco: Never Used Sex Assigned at Date Recorded Not on file Last Filed Vital Signs Vital Sign Reading Time Taken Blood Pressure 129/64 09/01/2017 3:03 PM CDT Pulse 78 09/01/2017 3:03 PM CDT Temperature 36.6 C (97.8 F) 09/01/2017 3:03 PM CDT Respiratory Rate 18 09/01/2017 3:03 PM CDT Oxygen Saturation 94% 09/01/2017 3:03 PM CDT Inhaled Oxygen Concentration - - Weight - - Height - - Body Mass Index - - Plan of Treatment Not on file Results RHYTHM STRIP - SCAN (09/02/2017 12:41 PM)POC-Glucose meter (09/01/2017 4:51 PM) Only the most recent of16 resultswithin the time period is included. Component Value Ref Range POC-Glucose Meter 298 (H)Comment: TESTED AT [facility] [address] [facility] 70 - 110 mg/[place] [address] Specimen Performing Laboratory Blood [facility] [address] [place] [address] Lipid panel (09/01/2017 4:59 AM) Component Value Ref Range Triglycerides 279 mg/dL Cholesterol 119 mg/dL HDL 22 mg/dL LDL Calculated 41 mg/dL Specimen Performing Laboratory Blood [facility] [address] [place] [address] Narrative Triglyceride Reference Range: Low Risk <150 [id number] High Risk 200-499 Very High Risk>=500 Cholesterol Reference Range: Low Risk <200 Ymrstcqkuk250-346 High Risk>240 HDL Cholesterol Reference Range: Low Risk >=60 High Risk <40 LDL Cholesterol Reference Range: Optimal<100 Near Kzprnym132-672 Kobnsjbpnj196-395 [id number] Very High >=190 CTA carotid (08/30/2017 6:05 PM) Specimen Performing Laboratory GE RIS Narrative FINAL REPORT CT angiogram of the upper chest, neck, and head Comparison:Head CT August 29 Reason for exam: Stroke Discussion: Multiple axial CT images of the upper chest, neck, and head were obtained using CT angiography technique. 2-D and 3-D reconstructed images were provided.3D MIPimages were generated. NASCET criteria are utilized when considering stenosis. Please note that CTA is inherently insensitive in evaluating the cavernous and skullbase portions of the internal carotid arteries because of adjacent bone and venous opacification. Dose modulation, iterative reconstruction, and/or weight based adjustment of the mA/kV was utilized to reduce the radiation dose to as low as reasonably achievable. There are [...] CTA upper chest, neck, head. Signed: Iqra Hall MD Report Verified Date/Time:08/30/2017 18:01:31 Reading Location: [address] Neuro Reading Room Procedure Note Interface, External Ris In - 08/31/2017 10:37 PM CDT FINAL REPORT CT angiogram of the upper chest, [...] to as low as reasonably achievable. There are [...] CTA upper chest, neck, head. Signed: Iqra Hall MD Report Verified Date/Time: 08/30/2017 18:01:31 Reading Location: [address] Neuro Reading Room brain (08/30/2017 6:05 PM) Specimen Performing Laboratory Runner RIS Narrative FINAL REPORT CT angiogram of the upper chest, neck, and head Comparison:Head CT August 29 Reason for exam: Stroke Discussion: Multiple axial CT images of the upper chest, neck, and head were obtained using CT angiography technique. 2-D and 3-D reconstructed images were provided.3D MIPimages were generated. NASCET criteria are utilized when considering stenosis. Please note that CTA is inherently insensitive in evaluating the cavernous and skullbase portions of the internal carotid arteries because of adjacent bone and venous opacification. Dose modulation, iterative reconstruction, and/or weight based adjustment of the mA/kV was utilized to reduce the radiation dose to as low as reasonably achievable. There are [...] CTA upper chest, neck, head. Signed: Iqra Hall MD Report Verified Date/Time:08/30/2017 18:01:31 Reading Location: [facility] C013 Neuro Reading Room Procedure Note Interface, External Ris In - 08/30/2017 6:05 PM CDT FINAL REPORT CT angiogram of the upper chest, [...] to as low as reasonably achievable. There are [...] CTA upper chest, neck, head. Signed: Iqra Hall MD Report Verified Date/Time: 08/30/2017 18:01:31 Reading Location: [facility] C013V Neuro Reading Room CARDIOGRAM REPORT - SCAN (08/30/2017 2:50 PM)Basic Metabolic Panel (2017 9:00 AM)Only the most recent of2 resultswithin the time period is included. Component Value Ref Range Sodium 137 136 - 145 meq/L Potassium 4.1 3.5 - 5.1 meq/L Chloride 106 98 - 107 meq/L CO2 24 22 - 29 meq/L BUN 11 7 - 21 mg/dL Creatinine 0.81 0.57 - 1.25 mg/dL Glucose 264 (H) 70 - 105 mg/dL Calcium 9.1 8.4 - 10.2 mg/dL EGFR 75Comment: ESTIMATED GFR IS NOT ACCURATE mL/min/1.73 sq m CREATININE CLEARANCE IN PREDICTING GLOMERULAR FILTRATION RATE. ESTIMATED GFR IS NOT APPLICABLE FOR DIALYSIS PATIENTS. Specimen Performing Laboratory Blood [facility] [address] [address] CBC with platelet count + automated diff (08/30/2017 5:10 AM)Only the most recent of2 resultswithin the time period is included. Component Value Ref Range WBC 6.6 3.5 - 10.5 K/L RBC 4.40 3.93 - 5.22 M/L Hemoglobin 11.8 11.2 - 15.7 GM/DL Hematocrit 36.1 34.1 - 44.9 % MCV 82.0 79.4 - 94.8 fL MCH 26.8 25.6 - 32.2 pg MCHC 32.7 32.2 - 35.5 GM/DL RDW 13.2 11.7 - 14.4 % Platelets 231 150 - 450 K/CU MM MPV 10.9 9.4 - 12.3 fL nRBC 0 0 - 0 /100 WBC % Neutros 50 % % Lymphs 41 % % Monos 6 % % Eos 2 % % Baso 1 % # Neutros 3.34 1.56 - 6.13 K/L # Lymphs 2.67 1.18 - 3.74 K/L # Monos 0.40 (H) 0.24 - 0.36 K/L # Eos 0.15 0.04 - 0.36 K/L # Baso 0.03 0.01 - 0.08 K/L Immature Granulocytes-Relative 0 0 - 1 % Specimen Performing Laboratory Blood [address] [address] Troponin I (08/30/2017 5:10 AM)Only the most recent of2 resultswithin the time period is included. Component Value Ref Range Troponin I <0.01 0.00 - 0.03 ng/mL Specimen Performing Laboratory Blood [address] [address] Narrative Troponin I (TnI) levels must be interpreted [...] failure, acidosis, acute neurological disease, and persistent tachyarrhythmia. CBC with platelet count + automated diff (08/30/2017 5:10 AM)Only the most recent of2 resultswithin the time period is included. Specimen Performing Laboratory Blood Narrative The following orders were created for panel order CBC with platelet count + automated diff. Procedure Abnormality Status --------- ------ CBC with platelet count ...[[id number]]AbnormalFinal result Please view results for these tests on the individual orders. XR chest 1 view portable / bedside (08/30/2017 4:15 AM) Specimen Performing Laboratory GE RIS Narrative FINAL REPORT Comparison examination: None No pneumothorax, focal pulmonary consolidation, or significant pleural effusion. Normal cardiomediastinal contours. Normal skeleton and soft tissues. Impression: No acute abnormality. Signed: Ervin Jenkins MD Report Verified Date/Time:08/30/2017 04:23:04 Reading Location: [address] Reading Room Procedure Note Interface, External Ris In - 08/30/2017 4:25 AM CDT FINAL REPORT Comparison examination: None No pneumothorax, focal pulmonary consolidation, or significant pleural effusion. Normal cardiomediastinal contours. Normal skeleton and soft tissues. Impression: No acute abnormality. Signed: Ervin Jenkins MD Report Verified Date/Time: 08/30/2017 04:23:04 Reading Location: [address] Reading Room 2D Echo W/Doppler(CW/PW/Color) (08/29/2017 3:24 PM) Component Value Ref Range Ejection Fraction Specimen Performing Laboratory [facility] E[facility] MKCKESSON CPACS Narrative Transthoracic Echocardiography Report (TTE) Demographics Patient Name RHONA CORNEJO Date of Study 08/29/2017 ALESIA [id number] Female Visit Number [id number] Room Number [id number] Number Date of Birth1970Referring Physician Vipul Riley Age47 year(s)Vehicle And Equipment Cleaner Laura Quijanoerpreting Bebeto Manning Physician Procedure Type of Study TTE procedure:2DECHO W DOPPLER(CW/PW/COLOR) (Pending Discharge) Indications:Suspected cardiac source of emboli. Clinical History HTN Contrast Medium: Bubble Study. Height: 67 inches Weight: 96.62 kg (213 lbs) BSA: 2.08 m^2 BMI: 33.36 kg/m^2 HR: 75 bpm BP: 104/57 mmHg Summary IV saline contrast injection was negative for a PFO (patent foramen ovale) at rest and post Valsalva . Regular sinus rhythm during the exam. The left ventricle is chamber size (by PSLAX dimension) is normal (male - LVIDd 4.2-5.8cm) . Mild concentric LV hypertrophy. All of the LV segments contract normally . Global LV systolic function normal . Estimated LVEF by qualitative assessment is normal (60%) . Normal (cardiac index 2-3 L/min/m2) cardiac output state at rest is noted. Grade 1 diastolic dysfunction (impaired relaxation and low-normal LA pressure). Otherwise, essentially normal exam. Previous Study No prior exam available for comparison. Signature Findings Rhythm/BPRegular sinus rhythm during the exam. Left Ventricle The left ventricle is chamber size (by PSLAX dimension) is normal (male - LVIDd 4.2-5.8cm) . Mild concentric LV hypertrophy. All of the LV segments contract normally . Global LV systolic function normal . Estimated LVEF by qualitative assessment is normal (60%) . Normal (cardiac index 2-3 L/min /m2) cardiac output state at rest is noted. Grade 1 diastolic dysfunction (impaired relaxation and low-normal LA pressure). Left AtriumLA size is normal (16-34 ml/m2) . Right VentricleThe right ventricular chamber size and systolic function are within normal limits. Right Atrium RA cavity size is normal . Atrial SeptumIV saline contrast injection was negative for a PFO (patent foramen ovale) at rest and post Valsalva . Aortic Valve Normal AoV structure and function. Mitral Valve Normal MV structure. Tricuspid ValveTV structure is normal. Unable to estimate peak systolic PA pressure; inadequate TR velocity signal. Pulmonic Valve Normal PV structure and function. AortaAortic root size (SInus of Valsalva diameter) is normal . Proximal ascending aorta size is normal . PericardiumNo significant pericardial effusion is visualized. IVC/SVC/PA/PV/PleuralThe right upper pulmonary vein (RUPV) is normal . The estimated RA pressure by IVC dynamics 0-5mmHg . Chambers/Structures Left Atrium LA Volume: 47.52 ml LA Area: 16.98 cm^ 2 LA Vol. Index: 23 ml/m^2 Left Ventricle LVIDd: 4.38 cm LV Septum Diastolic: 1.44 cm LV PW Diastolic: 1.33 cm LVOT Diameter: 2.25 cm Right Ventricle TAPSE: 1.6 cm Aorta Ao Root S of Nicole.: 3.22 cmAscending Aorta: 3.52 cm Doppler/Quantitative Measurements Mitral Valve MV Peak E-Wave: 0.61 m/sMV Peak A-Wave: 0.78 m/s E/ A Ratio: 0.78 Peak Gradient: 1.48 mmHg Deceleration Time: 246.6 msec MV Hay. Peak: Tissue Doppler E' Lateral Velocity: 0.1 m/sE/E': 5.88 LVOT Peak Velocity: 0.91 m/s Peak Gradient: 3.32 mmHg Mean Velocity: 0.62 m/s Mean Gradient: 1.79 mmHg LVOT Diameter: 2.25 cmLVOT VTI: 14.65 cm LVOT Area: 3.98 cm^2LVOT SV:58.22 ml LVOT CO: 4.37 l/min LVOT CI: 2.1 l/min/m^2 Procedure Note Interface, External Ris In - 08/30/2017 2:07 PM CDT Transthoracic Echocardiography Report (TTE) Demographics Patient Name RHONA CORNEJO Date of Study 08/29/2017 ALESIA Gender Female Visit Number [id number] Race Unknown Room Number [id number] Number Date of 1970 Referring Physician Vipul Riley Age 47 year(s) Vehicle And Equipment Cleaner Animal Trainer Supervisor Cailin Hernandez Interpreting Bebeto Manning, Physician Procedure Type of Study TTE procedure:2DECHO W DOPPLER(CW/PW/COLOR) (Pending Discharge) Indications:Suspected cardiac source of emboli. Clinical History HTN Contrast Medium: Bubble Study. Height: 67 inches Weight: 96.62 kg (213 lbs) BSA: 2.08 m^2 BMI: 33.36 kg/m^2 HR: 75 bpm BP: 104/57 mmHg Summary IV saline contrast injection was negative for a PFO (patent foramen ovale) at rest and post Valsalva . Regular sinus rhythm during the exam. The left ventricle is chamber size (by PSLAX dimension) is normal (male - LVIDd 4.2-5.8cm) . Mild concentric LV hypertrophy. All of the LV segments contract normally . Global LV systolic function normal . Estimated LVEF by qualitative assessment is normal (60%) . Normal (cardiac index 2-3 L/min/m2) cardiac output state at rest is noted. Grade 1 diastolic dysfunction (impaired relaxation and low-normal LA pressure). Otherwise, essentially normal exam. Previous Study No prior exam available for comparison. Signature Findings Rhythm/BP Regular sinus rhythm during the exam. Left Ventricle The left ventricle is chamber size (by PSLAX dimension) is normal (male - LVIDd 4.2-5.8cm) . Mild concentric LV hypertrophy. All of the LV segments contract normally . Global LV systolic function normal . Estimated LVEF by qualitative assessment is normal (60%) . Normal (cardiac index 2-3 L/min/m2) cardiac output state at rest is noted. Grade 1 diastolic dysfunction (impaired relaxation and low-normal LA pressure). Left Atrium LA size is normal (16-34 ml/m2) . Right Ventricle The right ventricular chamber size and systolic function are within normal limits. Right Atrium RA cavity size is normal . Atrial Septum IV saline contrast injection was negative for a PFO (patent foramen ovale) at rest and post Valsalva . Aortic Valve Normal AoV structure and function. Mitral Valve Normal MV structure. Tricuspid Valve TV structure is normal. Unable to estimate peak systolic PA pressure; inadequate TR velocity signal. Pulmonic Valve Normal PV structure and function. Aorta Aortic root size (SInus of Valsalva diameter) is normal . Proximal ascending aorta size is normal . Pericardium No significant pericardial effusion is visualized. IVC/SVC/PA/PV/Pleural The right upper pulmonary vein (RUPV) is normal . The estimated RA pressure by IVC dynamics 0-5mmHg . Chambers/Structures Left Atrium LA Volume: 47.52 ml LA Area: 16.98 cm^2 LA Vol. Index: 23 ml/m^2 Left Ventricle LVIDd: 4.38 cm LV Septum Diastolic: 1.44 cm LV PW Diastolic: 1.33 cm LVOT Diameter: 2.25 cm Right Ventricle TAPSE: 1.6 cm Aorta Ao Root S of Nicole.: 3.22 cm Ascending Aorta: 3.52 cm Doppler/Quantitative Measurements Mitral Valve MV Peak E-Wave: 0.61 m/s MV Peak A-Wave: 0.78 m/s E/A Ratio: 0.78 Peak Gradient: 1.48 mmHg Deceleration Time: 246.6 msec MV Hay. Peak: Tissue Doppler E' Lateral Velocity: 0.1 m/s E/E': 5.88 LVOT Peak Velocity: 0.91 m/s Peak Gradient: 3.32 mmHg Mean Velocity: 0.62 m/s Mean Gradient: 1.79 mmHg LVOT Diameter: 2.25 cm LVOT VTI: 14.65 cm LVOT Area: 3.98 cm^2 LVOT SV:58.22 ml LVOT CO: 4.37 l/min LVOT CI: 2.1 l/min/m^2 CT brain without IV contrast (08/29/2017 1:41 PM) Specimen Performing Laboratory [facility] Narrative FINAL REPORT CT head without contrast. Comparisons: No [...] intracranial hemorrhage, mass-effect, hydrocephalus, shift, or extra-axial collections.While I see no definitive acute large vessel infarction, please note that CT is not sensitive in detecting or distinguishing acute ischemic disease.The visualized dural sinus regions, orbital contents, paranasal sinuses, bones and surrounding soft tissues are unremarkable. Impressions: 1. No specific evidence of acute intracranial abnormality. Consider follow-up MRI if appropriate. Signed: Iqra Hall MD Report Verified Date/Time:08/29/2017 14:52:09 Reading Location: [facility] C0[facility] Neuro Reading Room Procedure Note Interface, External Ris In - 08/29/2017 2:54 PM CDT FINAL REPORT CT head without contrast. Comparisons: No [...] Consider follow-up MRI if appropriate. Signed: Iqra Hall MD Report Verified Date/Time: 08/29/2017 14:52:09 Reading Location: [address] Neuro Reading Room PHERAL VASCULAR REPORT - SCAN (08/29/2017 10:20 AM)Carotid doppler bilateral (08/29/2017 8:57 AM) Component Value Ref Range Ejection Fraction Specimen Performing Laboratory [facility] ECHO HEART[facility] MKCKESSON CPACS Impressions Right Impression 1. The internal, common and external carotid arteries are within normal limits. 2. The vertebral artery flow is antegrade and normal. 3. The subclavian artery is within normal limits where visualized. Left Impression 1. The internal, common and external carotid arteries are within normal limits. 2. The vertebral artery flow is antegrade and normal. 3. The subclavian artery is within normal limits where visualized. Conclusions Summary Carotid duplex scanning and color flow imaging were performed bilaterally. The arteries were well visualized and no areas of stenosis were found bilaterally. Doppler flow velocities were within normal range bilaterally. The vertebral artery flow was antegrade and normal bilaterally. Signature Velocities are measured in cm/s ; Diameters are measured in cm Narrative PV LAB - Carotid Duplex Study Demographics Patient Name Tone CORNEJO of Study 08/29/2017 ALESIA [id number] Age 47 Visit Number [id number] Gender Female Accession Number [id number] [facility] 1970 [id number] Physician SonographerMando Giordano MD, [place] Physician LIZETH Procedure Type of Study: Cerebral: Carotid, CAROTID DOPPLER, BILATERAL. Indications for Study:Pre-syncope . Patient Status:Routine. Study Location:Vascular Lab. Technical Quality:Good visualization. Risk Factors History of Disease +---------+----+ + !Diagnosis!Date!Comments ! +---------+----+ + !Other!!Left arm weakness ! +---------+----+ + - The patient's risk factor(s) include: obesity and arterial hypertension. Procedure Note Interface, External Ris In - 08/29/2017 9:53 AM CDT PV LAB - Carotid Duplex Study Demographics Patient Name RHONA CORNEJO Date of Study 08/29/2017 ALESIA Age 47 Visit Number [id number] Gender Female Accession Number [id number] Date of 1970 Referring [facility] Room Number 2261 Physician Vehicle And Equipment Cleaner Mando Giordano MD, [place] Physician RPVI Procedure Type of Study: Cerebral: Carotid, CAROTID DOPPLER, BILATERAL. Indications for Study:Pre-syncope . Patient Status:Routine. Study Location:Vascular Lab. Technical Quality:Good visualization. Risk Factors History of Disease +---------+----+ + !Diagnosis!Date!Comments ! +---------+----+ + !Other ! !Left arm weakness ! +---------+----+ + - The patient's risk factor(s) include: obesity and arterial hypertension. Impressions Right Impression 1. The internal, common and external carotid arteries are within normal limits. 2. The vertebral artery flow is antegrade and normal. 3. The subclavian artery is within normal limits where visualized. Left Impression 1. The internal, common and external carotid arteries are within normal limits. 2. The vertebral artery flow is antegrade and normal. 3. The subclavian artery is within normal limits where visualized. Conclusions Summary Carotid duplex scanning and color flow imaging were performed bilaterally. The arteries were well visualized and no areas of stenosis were found bilaterally. Doppler flow velocities were within normal range bilaterally. The vertebral artery flow was antegrade and normal bilaterally. Signature Velocities are measured in cm/s ; Diameters are measured in cm TSH/Free T4 If Indicated (08/29/2017 4:55 AM) Component Value Ref Range TSH 1.55 0.35 - 4.94 uIU/mL Specimen Performing Laboratory Blood [address] [address] Hemoglobin A1c (08/29/2017 4:55 AM) Component Value Ref Range Hemoglobin A1C 13.7 (H) 4.3 - 6.1 % Specimen Performing Laboratory [address] [address] Vitamin B12 (08/29/2017 4:55 AM) Component Value Ref Range Vitamin B12 300 213 - 816 pg/mL Specimen Performing Laboratory [address] [address] Urinalysis w/Microscopic (08/28/2017 11:16 PM) Component Value Ref Range Color, UA Brown Clarity, UA Hazy Specific Newborn, UA 1.016 1.001 - 1.035 pH, UA 5.0 5.0 - 8.0 Protein, UA 30 mg/dL (A) Negative Glucose, UA 300 mg/dL (A) Negative Ketones, UA Negative Negative Bilirubin, UA Positive (A) Negative Blood, UA Negative Negative Nitrite, UA Positive (A) Negative Leukocytes, UA Small (A) Negative Urobilinogen, UA 3.0 (H) 0.2 - 1.0 mg/dL RBC, UA 2 /HPF WBC, UA 24 /HPF Bacteria, UA Many Mucus Rare Squam Epithel, UA 7 /HPF Hyaline Casts, UA 16 /LPF Casts 16 /LPF Yeast Occasional Specimen Source Specimen Performing Laboratory Urine [facility] [address] [address] ECG 12 lead (08/28/2017 9:44 PM) Specimen Performing Laboratory GE MUSE Narrative Ventricular Rate 69 BPM Atrial Rate 69 BPM P-R Interval 182 ms QRS Duration 88 ms Q-T Interval 410 ms QTC Calculation(Bazett) 439 ms P Dennison 19 degrees R Dennison 18 degrees T Dennison 21 degrees Normal sinus rhythm Normal ECG No previous ECGs available Confirmed by MD GARCIA D. RICHARD ([id number]) on 08/29/2017 10:54:52 AM Procedure Note Interface, External Ris In - 08/29/2017 10:54 AM CDT Ventricular Rate 69 BPM Atrial Rate 69 BPM P-R Interval 182 ms QRS Duration 88 ms Q-T Interval 410 ms QTC Calculation(Bazett) 439 ms P Dennison 19 degrees R Dennison 18 degrees T Dennison 21 degrees Normal sinus rhythm Normal ECG No previous ECGs available Confirmed by MD GARCIA D. RICHARD ([id number]) on 08/29/2017 10:54:52 AM after 11/02/2016
[2017-11-03] MEDS ORDERED: PROMETHAZINE 25 MG TABLET ONE (19:30)
[2017-11-03] MEDS ORDERED: TRAMADOL HCL 50 MG TAB ONE (19:31)
--- NOTE | 2017-11-03 20:17 | RAD REPORT ---
EXAM DESCRIPTION: RAD - Lumbar Spine 3 Views - 11/03/2017 7:54 pm CLINICAL HISTORY: Back pain FINDINGS: The alignment of the lumbar spine is satisfactory. No fracture or dislocation is seen. Mild disc space narrowing involves L5-S1
--- NOTE | 2017-11-03 20:25 | ER ---
Nurse's Notes [facility] Name: Elly Clarke Age: 47 yrs Sex: Female : 1970 Arrival Date: 11/03/2017 Time: 18:28 Bed 30 Private MD: Pavel Curran T Diagnosis: Chronic Back Pain;Migraine Headache Presentation: 11/03 18:47 Presenting complaint: Patient states: Migraine and low back pain after mechanical fall hb from standing onto buttocks 2 weeks ago. Transition of care: patient was not received from another setting of care. Onset of symptoms is unknown. Risk Assessment: Do you want to hurt yourself or someone else? Patient reports no desire to harm self or others. Care prior to arrival: Medication(s) given: Motrin, at 1230. 18:47 Method Of Arrival: Ambulatory hb 18:47 Acuity: HANNAH 3 hb 19:04 Initial Sepsis Screen: Does the patient meet any 2 criteria? No. Patient's initial rv sepsis screen is negative. Does the patient have a suspected source of infection? No. Patient's initial sepsis screen is negative. 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 N/A - Hysterectomy hb Historical: - Allergies: 18:49 Claritin (insomnia); hb 18:49 Compazine (Seizures); hb 18:49 Demerol (HEART RACING); hb 18:49 (Hives); hb 18:49 Morphine (RACING HEART); hb 18:49 mushrooms; hb - Home Meds: 18:49 Abilify Oral [Active]; Celexa Oral [Active]; Klonopin 0.5 mg Oral tab 1 tab 2 times per hb day [Active]; Metformin Oral [Active]; tizanidine Oral BID [Active]; - PMHx: 18:49 Chrohns; Chronic pain; Diabetes - NIDDM; Dramatic migraine events; Gastroparesis; High hb Cholesterol; Hypertension; Pancreatitis; spinal stenosis; Arthritis; Migraines; - PSHx: 18:49 Hysterectomy; Knee surgery; Cholecystectomy; Tonsillectomy; hb - Immunization history:: Adult Immunizations up to date. - Social history:: Smoking status: Patient/guardian denies using tobacco. - Ebola Screening: : No symptoms or risks identified at this time. Screenin:03 Abuse screen: Denies threats or abuse. Denies injuries from another. Nutritional rv screening: No deficits noted. Tuberculosis screening: No symptoms or risk factors identified. Fall Risk None identified. Assessment: 19:02 General: Appears in no apparent distress. comfortable, Behavior is calm, cooperative, rv appropriate for age. Pain: Complains of pain in back. Neuro: Level of Consciousness is awake, alert, obeys commands, Oriented to person, place, time, situation. Cardiovascular: Capillary refill < 3 seconds. Respiratory: Airway is patent. GI: No signs and/or symptoms were reported involving the gastrointestinal system. : No signs and/or symptoms were reported regarding the genitourinary system. EENT: No signs and/or symptoms were reported regarding the EENT system. Derm: Skin is intact. Musculoskeletal: No signs and/or symptoms reported regarding the musculoskeletal system. Vital Signs: 18:49 BP 149 / 100; Pulse 88; Resp 16; Temp 97.2; Pulse Ox 100% on R/A; Pain 8/10; hb 19:21 BP 169 / 115; Pulse 94; Pulse Ox 98% on R/A; rv 20:17 BP 141 / 101; Pulse 94; Pulse Ox 98% ; rv ED Course: 18:28 Patient arrived in ED. rg4 18:28 Pavel Curran MD is Private Physician. rg4 18:48 Triage completed. hb 18:49 Arm band placed on right wrist. hb 18:53 Fran Santiago PA is PHCP. jmm 18:53 Wil Patterson MD is Attending Physician. jmm 18:59 Bed in low position. Call light in reach. Side rails up X 1. Pulse ox on. NIBP on. jp3 19:29 Urine --Ancillary (enter results) Sent. rv 19:29 Urine Dipstick--Ancillary (enter results) Sent. rv 19:54 X-ray completed. Patient tolerated procedure well. Patient moved back from radiology. 1 20:18 Awaiting radiology results. rv 20:24 Pavel Curran MD is Referral Physician. [facility] 20:43 No provider procedures requiring assistance completed. Patient did not have IV access rv during this emergency room visit. Administered Medications: 19:29 Drug: traMADol 50 mg Route: PO; rv 19:44 Follow up: Response: No adverse reaction; Pain is decreased rv 19:29 Drug: Promethazine 25 mg Route: PO; rv 19:43 Follow up: Response: No adverse reaction rv Outcome: 20:24 Discharge ordered by MD. spears 20:43 Discharged to home ambulatory. rv 20:43 Condition: good 20:43 Discharge instructions given to patient, Instructed on discharge instructions, follow up and referral plans. medication usage, Prescriptions given X 3. 20:43 Patient left the ED. rv Signatures: Fran Santiago PA PA jmm Harvey, Martha mh1 Radha Mancuso, RN RN Lety Lopez rg4 Karan Christian, NAT RN rv Bebeto Jacobs jp3
--- NOTE | 2017-11-03 20:25 | EDPHYS ---
Physician Documentation [facility] Name: Elly Clarke Age: 47 yrs Sex: Female : 1970 Arrival Date: 11/03/2017 Time: 18:28 Bed 30 Private MD: Pavel Curran T ED Physician Wil Patterson HPI: 11/03 19:11 This 47 yrs old Female presents to ER via Ambulatory with complaints of jmm MIGRAINE, Back Pain. 19:11 The patient presents with pain that is chronic. The symptoms are located in the low jmm back. Onset: The symptoms/episode began/occurred acutely, 2 week(s) ago. The pain does not radiate. Associated signs and symptoms: Pertinent positives: headache, Pertinent negatives: fever. 19:11 This is a 47 year old female with a history of chronic back pain, migraine headache, jmm DM, that presents to the ED with lower back pain which was exacerbated after she fell on her buttocks 2 weeks prior. Patient also complains of migraine headache which is similar in nature to previous headache. Patient denies numbness weakness, urinary retention or fecal incontinence. . 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 LMP N/A - Hysterectomy hb Historical: - Allergies: 18:49 Claritin (insomnia); hb 18:49 Compazine (Seizures); hb 18:49 Demerol (HEART RACING); hb 18:49 (Hives); hb 18:49 Morphine (RACING HEART); hb 18:49 mushrooms; hb - Home Meds: 18:49 Abilify Oral [Active]; Celexa Oral [Active]; Klonopin 0.5 mg Oral tab 1 tab 2 times per hb day [Active]; Metformin Oral [Active]; tizanidine Oral BID [Active]; - PMHx: 18:49 Chrohns; Chronic pain; Diabetes - NIDDM; Dramatic migraine events; Gastroparesis; High hb Cholesterol; Hypertension; Pancreatitis; spinal stenosis; Arthritis; Migraines; - PSHx: 18:49 Hysterectomy; Knee surgery; Cholecystectomy; Tonsillectomy; hb - Immunization history:: Adult Immunizations up to date. - Social history:: Smoking status: Patient/guardian denies using tobacco. - Ebola Screening: : No symptoms or risks identified at this time. ROS: 19:11 Constitutional: Negative for fever, chills, and weight loss, Cardiovascular: Negative [facility] for chest pain, palpitations, and edema, Respiratory: Negative for shortness of breath, cough, wheezing, and pleuritic chest pain, Abdomen/GI: Negative for abdominal pain, nausea, vomiting, diarrhea, and constipation. 19:11 Back: Positive for pain at rest, pain with movement. 19:11 Neuro: Positive for headache. 19:11 All other systems are negative. Exam: 19:11 Head/Face: atraumatic. Chest/axilla: Normal chest wall appearance and motion. [facility] Cardiovascular: Regular rate and rhythm. No edema appreciated Respiratory: Normal respirations, no respiratory distress appreciated Abdomen/GI: Non distended, soft 19:11 Constitutional: The patient appears in no acute distress, alert, awake. 19:11 Back: pain, that is moderate, ROM is painful, vertebral tenderness, is not appreciated, right paraspinal tenderness. 19:11 Musculoskeletal/extremity: ROM: intact in all extremities. 19:11 Skin: Appearance: Color: normal in color. 19:11 Neuro: Orientation: is normal, Mentation: is normal, Memory: is normal, Gait: is steady. 19:11 Psych: Behavior/mood is pleasant, cooperative. Vital Signs: 18:49 BP 149 / 100; Pulse 88; Resp 16; Temp 97.2; Pulse Ox 100% on R/A; Pain 8/10; hb 19:21 BP 169 / 115; Pulse 94; Pulse Ox 98% on R/A; rv 20:17 BP 141 / 101; Pulse 94; Pulse Ox 98% ; rv MDM: 19:11 Patient medically screened. [facility] 19:33 Data reviewed: vital signs, nurses notes. [facility] 20:20 ED course: Patient's PE findings are not concerning for cord compression or cauda jmm equina. Patient has a steady gait. Migraine is similar to previous headache. . 20:23 Counseling: I had a detailed discussion with the patient and/or guardian regarding: the [facility] historical points, exam findings, and any diagnostic results supporting the discharge/admit diagnosis, radiology results, the need for outpatient follow up, to return to the emergency department if symptoms worsen or persist or if there are any questions or concerns that arise at home. 11/03 19:02 Order name: Urine Dipstick--Ancillary (enter results) rg2 11/03 19:02 Order name: Urine --Ancillary (enter results) [facility] 11/03 19:34 Order name: XRAY Lumbar Spine (3 Views) [facility] 11/03 20:17 Order name: RAD; Complete Time: 20:23 EDMS Administered Medications: 19:29 Drug: traMADol 50 mg Route: PO; rv 19:44 Follow up: Response: No adverse reaction; Pain is decreased rv 19:29 Drug: Promethazine 25 mg Route: PO; rv 19:43 Follow up: Response: No adverse reaction rv Disposition: 11/04 07:08 Co-signature as Attending Physician, Wil Patterson MD. rn Disposition: 11/03/17 20:24 Discharged to Home. Impression: Chronic Back Pain, Migraine Headache. - Condition is Stable. - Discharge Instructions: Chronic Back Pain, Migraine Headache. - Prescriptions for Ultram 50 mg Oral Tablet - take 1 tablet by ORAL route every 6 hours As needed; 20 tablet. Zanaflex 4 mg Oral Tablet - take 1 tablet by ORAL route every 8 hours As needed; 20 tablet. promethazine 25 mg Oral Tablet - take 1 tablet by ORAL route every 6 hours As needed; 20 tablet. - Medication Reconciliation Form, Thank You Letter, Antibiotic Education, Prescription Opioid Use form. - Follow up: Pavel Curran MD; When: 2 - 3 days; Reason: Recheck today's complaints, Continuance of care, Re-evaluation by your physician. Signatures: Dispatcher [employer] EDMS Fran Santiago PA PA [facility] Wil Patterson MD MD rn Baxter, Heather, RN RN hb Vicente, Ronaldo, RN RN rv Corrections: (The following items were deleted from the chart) 11/03 20:43 20:24 11/03/2017 20:24 Discharged to Home. Impression: Chronic Back Pain; Migraine rv Headache. Condition is Stable. Forms are Medication Reconciliation Form, Thank You Letter, Antibiotic Education, Prescription Opioid Use. Follow up: Pavel Curran; When: 2 - 3 days; Reason: Recheck today's complaints, Continuance of care, Re-evaluation by your physician. [facility]
[2017-11-03 20:48] VITALS: TEMP 97.2; O2SAT 98
[2017-11-03 20:49] VITALS: BP 141/101
[2017-11-03 21:06] LABS: Urine Blood NEGATIVE (NEG); Urine Glucose 2+ (NEG); Urine Protein NEGATIVE (NEG); Urine pH 5.5 (5.0-7.0)
== END 2017-11-03 20:43 | disposition home or self-care (01) ==
LOC: ER 18:25
DX: G43.909 Migraine, unspecified, not intractable, without status migrainosus (principal); I10 Essential (primary) hypertension; E11.9 Type 2 diabetes mellitus without complications; E78.00 Pure hypercholesterolemia, unspecified; Z88.5 Allergy status to narcotic agent; Z88.6 Allergy status to analgesic agent; Z91.018 Allergy to other foods
CPT/HCPCS: 72100; 81003; 81025; 99284

== ENCOUNTER 2017-12-04 14:45 | Emergency (ER) | payer OTHER, SELFPAY ==
--- OUTSIDE RECORDS SUMMARY | 2017-12-04 14:48 | XMS REPORT | Clinical Summary ---
:1970 [facility] Address [address] [place] [address] Phone Care Team Providers Name Role Phone Unavailable Primary Care Provider Unavailable Allergies Active Allergy Reactions Severity Noted Date Comments Loratadine-Pseudoephedrine Other (See Comments) 08/28/2017 hyperactivity Prochlorperazine Other (See Comments) 08/28/2017 Seizures Meperidine Rash Low 08/28/2017 Sfcwpwswp-Ukluyk-Hivyiuqm-Scop Itching, Rash Low 08/28/2017 Morphine Rash Low [...] due to diabetes mellitus (HCC);Neuropathic pain after 12/03/2016 Social History Tobacco Use Types Packs/Day Years [...] Range POC-Glucose Meter 298 (H)Comment: TESTED AT [facility] [address] [facility] 70 - 110 mg/[place] [address] Specimen Performing Laboratory Blood [facility] [address] [place] [address] Lipid panel (09/01/2017 4:59 AM) Component Value Ref Range Triglycerides 279 mg/dL Cholesterol 119 mg/dL HDL 22 mg/dL LDL Calculated 41 mg/dL Specimen Performing Laboratory Blood [facility] [address] [place] [address] Narrative Triglyceride Reference Range: Low Risk <150 [id number] High Risk 200-499 Very High Risk>=500 Cholesterol Reference Range: Low Risk <200 [id number] High Risk>240 HDL Cholesterol Reference Range: Low Risk >=60 High Risk <40 LDL Cholesterol Reference Range: Optimal<100 Near [id number] Dlmhjlasjy222-290 Iqvd603-233 Very High >=190 CTA carotid (08/30/2017 6:05 [...] MD Report Verified Date/Time:08/30/2017 18:01:31 Reading Location: [address] Neuro Reading Room Procedure Note Interface, [...] Report Verified Date/Time: 08/30/2017 18:01:31 Reading Location: [address] Neuro Reading Room brain (08/30/2017 6:05 PM) Specimen Performing Laboratory [facility] RIS Narrative FINAL REPORT CT angiogram of [...] MD Report Verified Date/Time:08/30/2017 18:01:31 Reading Location: [facility] C013 Neuro Reading Room Procedure Note Interface, [...] Report Verified Date/Time: 08/30/2017 18:01:31 Reading Location: [facility] C013V Neuro Reading Room CARDIOGRAM REPORT - [...] DIALYSIS PATIENTS. Specimen Performing Laboratory Blood [facility] [address] [address] CBC with platelet count + automated diff [...] - 1 % Specimen Performing Laboratory Blood [address] [address] Troponin I (08/30/2017 5:10 AM)Only the most recent of2 resultswithin the time period is included. Component Value Ref Range Troponin I <0.01 0.00 - 0.03 ng/mL Specimen Performing Laboratory Blood [address] [address] Narrative Troponin I (TnI) levels must be [...] Status --------- ------ CBC with platelet count ...[[id number]]AbnormalFinal result Please view results for these tests on the individual orders. XR chest 1 view portable / bedside (08/30/2017 4:15 AM) Specimen Performing Laboratory GE RIS Narrative FINAL REPORT Comparison examination: None No pneumothorax, focal pulmonary consolidation, or significant pleural effusion. Normal cardiomediastinal contours. Normal skeleton and soft tissues. Impression: No acute abnormality. Signed: Ervin Jenkins MD Report Verified Date/Time:08/30/2017 04:23:04 Reading Location: [address] Reading Room Procedure Note Interface, External Ris In - 08/30/2017 4:25 AM CDT FINAL REPORT Comparison examination: None No pneumothorax, focal pulmonary consolidation, or significant pleural effusion. Normal cardiomediastinal contours. Normal skeleton and soft tissues. Impression: No acute abnormality. Signed: Ervin Jenkins MD Report Verified Date/Time: 08/30/2017 04:23:04 Reading Location: [address] Reading Room 2D Echo W/Doppler(CW/PW/Color) (08/29/2017 3:24 PM) Component Value Ref Range Ejection Fraction Specimen Performing Laboratory [facility] ECHO HEARTLAB MKCKESSON CPACS Narrative Transthoracic Echocardiography Report (TTE) Demographics Patient Name RHONA CORNEJO Date of Study 08/29/2017 [place] [id number] Female Visit Number [id number] Room Number [id number] Number Date of Birth1970Referring Physician Vipul Riley Age47 year(s)Modern Languages Professor Laura Quijanoerpreting Bebeto Manning Physician Procedure Type [...] Study 08/29/2017 [place] Gender Female Visit Number [id number] Race Unknown Room Number 2261 Number Date of 1970 Referring Physician Vipul Riley Age 47 year(s) Modern Languages Professor Hvac Technician Cailin Hernandez Interpreting Bebeto Manning, Physician Procedure [...] contrast (08/29/2017 1:41 PM) Specimen Performing Laboratory [facility] Narrative FINAL REPORT CT head without contrast. [...] MD Report Verified Date/Time:08/29/2017 14:52:09 Reading Location: [facility] C0[facility] Neuro Reading Room Procedure Note [...] Report Verified Date/Time: 08/29/2017 14:52:09 Reading Location: [address] Neuro Reading Room PHERAL VASCULAR REPORT - SCAN (08/29/2017 10:20 AM)Carotid doppler bilateral (08/29/2017 8:57 AM) Component Value Ref Range Ejection Fraction Specimen Performing Laboratory [facility] ECHO HEARTLAB MKCKESSON CPACS Impressions [...] Name Tone CORNEJO of Study 08/29/2017 [place] [id number] Age 47 Visit Number [id number] Gender Female Accession Number [id number] [facility] 1970 [facility] Phys[facility] SonographerMando Giordano MD, [place] [...] Study 08/29/2017 [place] Age 47 Visit Number [id number] Gender Female Accession Number [id number] Date of [address] [facility] Room Number 2261 Physician Modern Languages Professor Mando Giordano MD, [place] Physician RPVI Procedure [...] - 4.94 uIU/mL Specimen Performing Laboratory Blood [address] [address] Hemoglobin A1c (08/29/2017 4:55 AM) Component Value Ref Range Hemoglobin A1C 13.7 (H) 4.3 - 6.1 % Specimen Performing Laboratory [address] [address] Vitamin B12 (08/29/2017 4:55 AM) Component Value Ref Range Vitamin B12 300 213 - 816 pg/mL Specimen Performing Laboratory [address] [address] Urinalysis w/Microscopic (08/28/2017 11:16 PM) Component Value Ref Range Color, UA Brown Clarity, UA Hazy Specific [place], UA 1.016 1.001 - 1.035 pH, UA [...] Specimen Source Specimen Performing Laboratory Urine [facility] [address] [address] ECG 12 lead (08/28/2017 9:44 PM) Specimen Performing Laboratory GE MUSE Narrative Ventricular Rate 69 BPM Atrial Rate 69 BPM P-R Interval 182 ms QRS Duration 88 ms Q-T Interval 410 ms QTC Calculation(Bazett) 439 ms P [place] 19 degrees R [place] 18 degrees T [place] 21 degrees Normal sinus rhythm Normal ECG No previous ECGs available Confirmed by MD GARCIA D. RICHARD ([id number]) on 08/29/2017 10:54:52 AM Procedure Note Interface, External Ris In - 08/29/2017 10:54 AM CDT Ventricular Rate 69 BPM Atrial Rate 69 BPM P-R Interval 182 ms QRS Duration 88 ms Q-T Interval 410 ms QTC Calculation(Bazett) 439 ms P [place] 19 degrees R [place] 18 degrees T [place] 21 degrees Normal sinus rhythm Normal ECG No previous ECGs available Confirmed by MD GARCIA D. RICHARD ([id number]) on 08/29/2017 10:54:52 AM after 12/03/2016
--- OUTSIDE RECORDS SUMMARY | 2017-12-04 14:48 | XMS REPORT ---
:1970 Author Organization [facility] Address [address] [place] [address] Dr. Kumar [address] [place] [address] Care Team Providers Name Role Phone HARINI [...] (BEAKER) (test 298 mg/dL 70-110 TESTED AT [address] styd=3141) [place] [id number] POCT-GLUCOSE [id number] 12:11:00 Test Item Value Reference Range Comments POC-GLUCOSE METER (BEAKER) 331 mg/dL 70-110 Notified NAT SOUZA/TESTED AT [facility] (test ubvn=1916) [address] [place], [place] [id number] POCT-GLUCOSE [id number] 10:55:00 Test Item Value Reference Range Comments POC-GLUCOSE METER (BEAKER) 365 mg/dL 70-110 TESTED AT [address] (test ahxk=8477) [place] [id number] POCT-GLUCOSE [id number] 08:44:00 Test Item Value Reference Range Comments POC-GLUCOSE METER (BEAKER) 291 mg/dL 70-110 TESTED AT [address] (test olmw=6407) [place] [address] LIPID [id number] 05:56:00 Test Item Value Reference Range Comments TRIGLYCERIDES (BEAKER) (test xhmv=610) 279 mg/dL CHOLESTEROL (BEAKER) (test orbi=957) 119 mg/dL HDL CHOLESTEROL (BEAKER) (test cluy=205) 22 mg/dL LDL CHOLESTEROL CALCULATED (BEAKER) (test 41 mg/dL tems=168) Triglyceride Reference Range: Low Risk <150 Borderline 150- 199 High Risk 200-499 Very High Risk >=500Cholesterol Reference Range: Low Risk <200 Borderline 200-239 High Risk > 240HDL Cholesterol Reference Range: Low Risk >=60 High Risk <40LDL Cholesterol Reference Range: Optimal <100 Near Optimal 100-129 Borderline 130-159 High 160-189 Very High >=190POCT-GLUCOSE [id number] 21:50:00 Test Item Value Reference Range Comments POC-GLUCOSE METER (BEAKER) 318 mg/dL 70-110 TESTED AT [address] (test gqcr=3604) [place] [id number] POCT-GLUCOSE [id number] 18:04:00 Test Item Value Reference Range Comments POC-GLUCOSE METER (BEAKER) 238 mg/dL 70-110 TESTED AT [address] (test xlgz=4510) [facility] [address] POCT-GLUCOSE [id number] 12:22:00 Test Item Value Reference Range Comments POC-GLUCOSE METER (BEAKER) 290 mg/dL 70-110 TESTED AT [address] (test xyqe=0515) [facility] [address] POCT-GLUCOSE [id number] 09:20:00 Test Item Value Reference Range Comments POC-GLUCOSE METER (BEAKER) 293 mg/dL 70-110 TESTED AT [address] (test apdi=1463) [place] [id number] POCT-GLUCOSE [id number] 21:00:00 Test Item Value Reference Range Comments POC-GLUCOSE METER (BEAKER) 225 mg/dL 70-110 TESTED AT [address] (test vjpm=3072) [facility] [address] [address], CAROTID, [id number] 18:01:00FINAL REPORT CT angiogram of the upper [...] Petersen Verified Date/Time: 08/30/2017 18:01:31 Reading Location: [address] Neuro Reading Room [facility] [id number] 18:01:00FINAL REPORT CT angiogram of the upper [...] [place] Verified Date/Time: 08/30/2017 18:01:31 Reading Location: [facility] C013V Neuro Reading Room POCT-GLUCOSE [id number] 17:21: 00 Test Item Value Reference Range Comments POC-GLUCOSE METER (BEAKER) 256 mg/dL 70-110 TESTED AT [address] (test pmdt=1474) [place] [address] POCT-GLUCOSE [id number] 12:00:00 Test Item Value Reference Range Comments POC-GLUCOSE METER (BEAKER) 289 mg/dL 70-110 TESTED AT [address] (test xvdw=8549) [place] [address] BASIC METABOLIC [id number] 10:12:00 Test Item Value Reference Range Comments SODIUM (BEAKER) (test 137 meq/L 136-145 dnxz=819) POTASSIUM (BEAKER) (test 4.1 meq/L 3.5-5.1 lyjm=647) CHLORIDE (BEAKER) (test 106 meq/L 98-107 ywpk=371) CO2 (BEAKER) (test 24 meq/L 22-29 nihh=809) BLOOD UREA NITROGEN 11 mg/dL 7-21 (BEAKER) (test nhio=227) CREATININE (BEAKER) (test 0.81 mg/dL 0.57-1.25 sivh=720) GLUCOSE RANDOM (BEAKER) 264 mg/dL 70-105 (test moyc=657) CALCIUM (BEAKER) (test 9.1 mg/dL 8.4-10.2 qcxr=176) EGFR (BEAKER) (test 75 mL/min/1.73 sq m ESTIMATED GFR IS NOT vzcy=6488) ACCURATE CREATININE CLEARANCE IN PREDICTING GLOMERULAR FILTRATION RATE. ESTIMATED GFR IS NOT APPLICABLE FOR DIALYSIS PATIENTS. POCT-GLUCOSE [id number] 08:42:00 Test Item Value Reference Range Comments POC-GLUCOSE METER (BEAKER) 259 mg/dL 70-110 TESTED AT [address] (test ouoq=9102) [place] [id number] TROPONIN [id number] 06:14:00 Test Item Value Reference Range Comments TROPONIN I (BEAKER) (test jroa=950) < ng/mL 0.00-0.03 Troponin I (TnI) levels [...] and persistent tachyarrhythmia.CBC W/PLT COUNT & AUTO [id number] 06:09:00 Test Item Value Reference Range Comments WHITE BLOOD CELL COUNT (BEAKER) (test yngu=432) 6.6 K/ L 3.5-10.5 RED BLOOD CELL COUNT (BEAKER) (test talw=071) 4.40 M/ L 3.93-5.22 HEMOGLOBIN (BEAKER) (test ohdc=533) 11.8 GM/DL 11.2-15.7 HEMATOCRIT (BEAKER) (test pifa=268) 36.1 % 34.1-44.9 MEAN CORPUSCULAR VOLUME (BEAKER) (test kftc=906) 82.0 fL 79.4-94.8 MEAN CORPUSCULAR HEMOGLOBIN (BEAKER) (test 26.8 pg 25.6-32.2 nibd=993) MEAN CORPUSCULAR HEMOGLOBIN CONC (BEAKER) (test 32.7 GM/DL 32.2-35.5 krkw=888) RED CELL DISTRIBUTION WIDTH (BEAKER) (test 13.2 % 11.7-14.4 adtd=512) PLATELET COUNT (BEAKER) (test ejgy=887) 231 K/CU MM 150-450 MEAN PLATELET VOLUME (BEAKER) (test xmqb=678) 10.9 fL 9.4-12.3 NUCLEATED RED BLOOD CELLS (BEAKER) (test 0 /100 WBC 0-0 cmlv=125) NEUTROPHILS RELATIVE PERCENT (BEAKER) (test 50 % tofq=981) LYMPHOCYTES RELATIVE PERCENT (BEAKER) (test 41 % rfxt=483) MONOCYTES RELATIVE PERCENT (BEAKER) (test 6 % iith=005) EOSINOPHILS RELATIVE PERCENT (BEAKER) (test 2 % vzon=617) BASOPHILS RELATIVE PERCENT (BEAKER) (test 1 % satg=893) NEUTROPHILS ABSOLUTE COUNT (BEAKER) (test 3.34 K/ L 1.56-6.13 osze=902) LYMPHOCYTES ABSOLUTE COUNT (BEAKER) (test 2.67 K/ L 1.18-3.74 srnj=338) MONOCYTES ABSOLUTE COUNT (BEAKER) (test 0.40 K/ L 0.24-0.36 oezz=150) EOSINOPHILS ABSOLUTE COUNT (BEAKER) (test 0.15 K/ L 0.04-0.36 ybdl=807) BASOPHILS ABSOLUTE COUNT (BEAKER) (test 0.03 K/ L 0.01-0.08 ylor=115) IMMATURE GRANULOCYTES-RELATIVE PERCENT (BEAKER) 0 % 0-1 (test musn=0270) RAD, CHEST, 1 VIEW, NON [id number] 04:23:00Reason for exam:->chest painShould this be performed at the bedside?->YesFINAL REPORT Comparison examination: None No pneumothorax, focal pulmonary consolidation, or significant pleural effusion. Normal cardiomediastinal contours. Normal skeleton and soft tissues. Impression: No acute abnormality. Signed: Ervin Jenkins Verified Date/Time: 08/30/2017 04:23 :04 Reading Location: [address] Reading Room POCT-GLUCOSE [id number] 21:18:00 Test Item Value Reference Range Comments POC-GLUCOSE METER (BEAKER) 151 mg/dL 70-110 TESTED AT [address] (test fqgq=0002) [facility] [address] POCT-GLUCOSE [id number] 17:59:00 Test Item Value Reference Range Comments POC-GLUCOSE METER (BEAKER) 146 mg/dL 70-110 TESTED AT [facility] [address] [facility] (test asvw=0805) [facility] [address] HEMOGLOBIN [id number] 15:56:00 Test Item Value Reference Range Comments HEMOGLOBIN A1C (BEAKER) (test keoe=905) 13.7 % 4.3-6.1 CT, BRAIN, WITHOUT [id number] 14:52:00FINAL REPORT CT head without contrast. Comparisons: [...] Petersen Verified Date/Time: 08/29/2017 14:52:09 Reading Location: [address] Neuro Reading Room POCT-GLUCOSE [id number] 14:17:00 Test Item Value Reference Range Comments POC-GLUCOSE METER (BEAKER) 423 mg/dL 70-110 Notified NAT SOUZA/TESTED AT [facility] (test xqib=1551) [address] [facility] [address] VITAMIN [id number] 06:48:00 Test Item Value Reference Range Comments VITAMIN B12 (BEAKER) (test amox=083) 300 pg/mL 213-816 TSH/FREE T4 IF [id number] 06:48:00 Test Item Value Reference Range Comments THYROID STIMULATING HORMONE (BEAKER) (test 1.55 uIU/mL 0.35-4.94 lfvj=812) CBC W/PLT COUNT & AUTO [id number] 05:10:00 Test Item Value Reference Range Comments WHITE BLOOD CELL COUNT (BEAKER) (test kleo=954) 8.6 K/ L 3.5-10.5 RED BLOOD CELL COUNT (BEAKER) (test ikip=876) 4.62 M/ L 3.93-5.22 HEMOGLOBIN (BEAKER) (test raou=583) 12.2 GM/DL 11.2-15.7 HEMATOCRIT (BEAKER) (test zbcx=954) 42.2 % 34.1-44.9 MEAN CORPUSCULAR VOLUME (BEAKER) (test yprk=398) 91.3 fL 79.4-94.8 MEAN CORPUSCULAR HEMOGLOBIN (BEAKER) (test 26.4 pg 25.6-32.2 nsah=984) MEAN CORPUSCULAR HEMOGLOBIN CONC (BEAKER) (test 28.9 GM/DL 32.2-35.5 yiqd=409) RED CELL DISTRIBUTION WIDTH (BEAKER) (test 13.2 % 11.7-14.4 lokr=759) PLATELET COUNT (BEAKER) (test lngi=757) 80 K/CU MM 150-450 MEAN PLATELET VOLUME (BEAKER) (test wwjm=504) 10.9 fL 9.4-12.3 NUCLEATED RED BLOOD CELLS (BEAKER) (test 0 /100 WBC 0-0 cgxj=964) NEUTROPHILS RELATIVE PERCENT (BEAKER) (test 45 % qxpn=032) LYMPHOCYTES RELATIVE PERCENT (BEAKER) (test 46 % bkgc=541) MONOCYTES RELATIVE PERCENT (BEAKER) (test 6 % swef=310) EOSINOPHILS RELATIVE PERCENT (BEAKER) (test 2 % trpt=692) BASOPHILS RELATIVE PERCENT (BEAKER) (test 1 % ozpt=395) NEUTROPHILS ABSOLUTE COUNT (BEAKER) (test 3.91 K/ L 1.56-6.13 hprr=867) LYMPHOCYTES ABSOLUTE COUNT (BEAKER) (test 3.95 K/ L 1.18-3.74 umps=084) MONOCYTES ABSOLUTE COUNT (BEAKER) (test wjoz=236) 0.54 K/ L 0.24-0.36 EOSINOPHILS ABSOLUTE COUNT (BEAKER) (test 0.13 K/ L 0.04-0.36 uvyr=300) BASOPHILS ABSOLUTE COUNT (BEAKER) (test xtyy=633) 0.07 K/ L 0.01-0.08 IMMATURE GRANULOCYTES-RELATIVE PERCENT (BEAKER) 0 % 0-1 (test jqcn=2050) URINALYSIS W/ [id number] 23:32:00 Test Item Value Reference Range Comments COLOR (BEAKER) (test plmt=799) Brown CLARITY (BEAKER) (test vmun=636) Hazy SPECIFIC GRAVITY UA (BEAKER) (test atlm=497) 1.016 1.001-1.035 PH UA (BEAKER) (test ohqs=804) 5.0 5.0-8.0 PROTEIN UA (BEAKER) (test wdxp=790) 30 mg/dL Negative GLUCOSE UA (BEAKER) (test lobf=363) 300 mg/dL Negative KETONES UA (BEAKER) (test jxcr=874) Negative Negative BILIRUBIN UA (BEAKER) (test foah=091) Positive Negative BLOOD UA (BEAKER) (test yapt=246) Negative Negative NITRITE UA (BEAKER) (test tcps=360) Positive Negative LEUKOCYTE ESTERASE UA (BEAKER) (test wjjj=611) Small Negative UROBILINOGEN UA (BEAKER) (test ybge=644) 3.0 mg/dL 0.2-1.0 RBC UA (BEAKER) (test fpck=990) 2 /HPF WBC UA (BEAKER) (test qszh=841) 24 /HPF BACTERIA (BEAKER) (test idhi=973) Many MUCUS (BEAKER) (test xkbk=6139) Rare SQUAMOUS EPITHELIAL (BEAKER) (test cdaa=076) 7 /HPF HYALINE CASTS (BEAKER) (test czne=226) 16 /LPF CASTS (BEAKER) (test yshk=6740) 16 /LPF YEAST (BEAKER) (test javi=5043) Occasional SOURCE(BEAKER) (test nkqd=0593) TROPONIN [id number] 23:12:00 Test Item Value Reference Range Comments TROPONIN I (BEAKER) (test ljrn=255) < ng/mL 0.00-0.03 Troponin I (TnI) levels [...] acute neurological disease, and persistent tachyarrhythmia.BASIC METABOLIC [id number] 23:05:00 Test Item Value Reference Range Comments SODIUM (BEAKER) (test 128 meq/L 136-145 wjaf=686) POTASSIUM (BEAKER) (test 4.9 meq/L 3.5-5.1 Specimen moderately nudl=541) hemolyzed CHLORIDE (BEAKER) (test 100 meq/L 98-107 gxez=974) CO2 (BEAKER) (test 13 meq/L 22-29 zipu=039) BLOOD UREA NITROGEN 29 mg/dL 7-21 (BEAKER) (test wpqa=923) CREATININE (BEAKER) (test 1.55 mg/dL 0.57-1.25 Specimen moderately rrti=376) hemolyzed GLUCOSE RANDOM (BEAKER) 326 mg/dL 70-105 (test nznt=860) CALCIUM (BEAKER) (test 9.6 mg/dL 8.4-10.2 roxd=166) EGFR (BEAKER) (test 36 mL/min/1.73 sq m ESTIMATED GFR IS NOT hqhn=9374) ACCURATE CREATININE CLEARANCE IN PREDICTING GLOMERULAR FILTRATION RATE. ESTIMATED GFR IS NOT APPLICABLE FOR DIALYSIS PATIENTS. POCT-GLUCOSE [id number] 20:49:00 Test Item Value Reference Range Comments POC-GLUCOSE METER (BEAKER) 376 mg/dL 70-110 Notified NAT SOUZA/TESTED AT [facility] (test ydjt=3338) [address] [place] [address]
[2017-12-04] MEDS ORDERED: ONDANSETRON 4 MG/2 ML VIAL ONE (15:34)
[2017-12-04] MEDS ORDERED: NA CHLORIDE 0.9% 1,000 ML ONE (15:34)
[2017-12-04] MEDS ORDERED: FENTANYL CITR 100 MCG/2 ML ONE (15:45)
[2017-12-04 15:56] LABS: Urine Blood NEGATIVE (NEG); Urine Glucose TRACE (NEG); Urine Protein TRACE (NEG); Urine pH 5.5 (5.0-7.0)
[2017-12-04 16:29] LABS: Absolute Lymphocytes (CBC) 3.9 K/uL (0.7-4.9); Absolute Monocytes 0.6 K/uL (0.1-1.3); Absolute Neutrophil 5.7 K/uL (1.8-8.0); Basophils % 0.7 % (0-1.3); Eosinophils % 2.2 % (0-4.4); Hematocrit 46.4 % (36.0-45.0); Lymphocytes % 36.9 % (15.3-44.8); MCH 27.3 pg (27.0-35.0); MCV 81.5 fL (80-100); MPV 9.6 fL (7.6-11.3); Monocytes % 5.8 % (3.3-12.3); RBC Red Blood Cell Count 5.69 M/uL (3.86-4.86)
[2017-12-04 16:33] LABS: ALT/SGPT 40 U/L (12-78); AST/SGOT 30 U/L (15-37); Albumin 4.2 g/dL (3.4-5.0); Alkaline Phosphatase 104 U/L (45-117); Amylase Level 38 U/L (25-115); BUN Blood Urea Nitrogen 12 mg/dL (7-18); Bicarbonate 24 mmol/L (21-32); Bilirubin Direct < 0.1 mg/dL (0-0.2); Bilirubin Total 0.5 mg/dL (0.2-1.0); Glucose Level 310 mg/dL (74-106); Lipase 180 U/L (73-393); Potassium 4.6 mmol/L (3.5-5.1); Protein, Total 8.2 g/dL (6.4-8.2); Sodium Level 135 mmol/L (136-145)
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
--- NOTE | 2017-12-04 18:57 | ER ---
Nurse's Notes [facility] Name: Elly Clarke Age: 47 yrs Sex: Female : 1970 Arrival Date: 12/04/2017 Time: 14:48 Bed 28 Private MD: Pavel Curarn T Diagnosis: Generalized abdominal pain Presentation: 12/04 14:53 Presenting complaint: Patient states: Abdominal cramping that started yesterday. Normal aj bowel habits. Patient also reports sore throat, grandson DX with strep throat recently. Transition of care: patient was not received from another setting of care. Onset of symptoms was December 04, 2017. Risk Assessment: Do you want to hurt yourself or someone else? Patient reports no desire to harm self or others. Initial Sepsis Screen: Does the patient meet any 2 criteria? No. Patient's initial sepsis screen is negative. Does the patient have a suspected source of infection? No. Patient's initial sepsis screen is negative. Care prior to arrival: None. 14:53 Method Of Arrival: Ambulatory 14:53 Acuity: HANNAH 3 aj Triage Assessment: 14:55 General: Appears in no apparent distress. comfortable, Behavior is calm, cooperative, aj appropriate for age. Pain: Complains of pain in umbilical area, right upper quadrant and left upper quadrant. EENT: Reports pain when swallowing. Neuro: Level of Consciousness is awake, alert, obeys commands, Oriented to person, place, time, situation, Appropriate for age. Respiratory: Airway is patent Respiratory effort is even, unlabored, Respiratory pattern is regular, symmetrical. GI: Abdomen is non-distended, obese. GI: Reports upper abdominal pain. Derm: Skin is intact, is healthy with good turgor, Skin is pink, warm \T\ dry. normal. 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 - Hysterectomy aj Historical: - Allergies: 14:55 Claritin (insomnia); aj 14:55 Compazine (Seizures); aj 14:55 Demerol (HEART RACING); aj 14:55 (Hives); aj 14:55 Morphine (RACING HEART); aj 14:55 mushrooms; aj - Home Meds: 14:55 Abilify Oral [Active]; Celexa Oral [Active]; Klonopin 0.5 mg Oral tab 1 tab 2 times per aj day [Active]; Metformin Oral [Active]; tizanidine Oral BID [Active]; - PMHx: 14:55 Arthritis; Chrohns; Chronic pain; Diabetes - NIDDM; Dramatic migraine events; aj Gastroparesis; High Cholesterol; Hypertension; Migraines; Pancreatitis; spinal stenosis; - PSHx: 14:55 Hysterectomy; Knee surgery; Cholecystectomy; Tonsillectomy; aj - Immunization history:: Adult Immunizations up to date. - Social history:: Smoking status: Patient/guardian denies using tobacco. - Ebola Screening: : Patient negative for fever greater than or equal to 101.5 degrees Fahrenheit, and additional compatible Ebola Virus Disease symptoms Patient denies exposure to infectious person Patient denies travel to an Ebola-affected area in the 21 days before illness onset No symptoms or risks identified at this time. Screenin:46 Abuse screen: Denies threats or abuse. Denies injuries from another. Nutritional mg2 screening: No deficits noted. Tuberculosis screening: No symptoms or risk factors identified. Fall Risk IV access (20 points). Assessment: 15:46 General: Appears uncomfortable, Behavior is calm, cooperative. Pain: Complains of pain mg2 in left upper quadrant and right upper quadrant Pain does not radiate. Pain currently is 10 out of 10 on a pain scale. Quality of pain is described as aching, Pain began gradually, Is intermittent. Neuro: Level of Consciousness is awake, alert, obeys commands, Oriented to person, place, time, situation. Cardiovascular: Capillary refill < 3 seconds Patient's skin is warm and dry. Respiratory: Airway is patent Respiratory effort is even, unlabored, Respiratory pattern is. GI: Abdomen is non-distended, Reports lower abdominal pain, upper abdominal pain. : Urine is clear. EENT: No signs and/or symptoms were reported regarding the EENT system. Derm: Skin is intact, Skin is pink, warm \T\ dry. normal. Musculoskeletal: No signs and/or symptoms reported regarding the musculoskeletal system. 16:12 Reassessment: Patient appears in no apparent distress at this time. Patient and/or mg2 family updated on plan of care and expected duration. Pain level reassessed. Patient is alert, oriented x 3, equal unlabored respirations, skin warm/dry/pink. 17:52 Reassessment: patient sent to ct scan. mg2 19:14 GI: Bowel sounds present X 4 quads. Abd is soft. mg2 Vital Signs: 14:55 BP 146 / 91; Pulse 109; Resp 16; Temp 98.6; Pulse Ox 98% on R/A; Weight 97.07 kg; aj Height 5 ft. 7 in. (170.18 cm); 16:09 BP 130 / 88; Pulse 92; Resp 18; Pulse Ox 95% on R/A; mg2 17:33 BP 130 / 96; Pulse 85; Resp 18; Pulse Ox 100% on R/A; Pain 2/10; mg2 18:30 BP 129 / 78; Pulse 80; Resp 18; Pulse Ox 100% on R/A; Pain 0/10; mg2 14:55 Body Mass Index 33.52 (97.07 kg, 170.18 cm) aj ED Course: 14:48 Patient arrived in ED. sb2 14:48 Pavel Curran MD is Private Physician. sb2 14:54 Triage completed. aj 14:55 Arm band placed on right wrist. Patient placed in an exam room. aj 14:57 Cookie Walker FNP-C is PHCP. kb 14:57 George Stern MD is Attending Physician. kb 15:05 Urine collected: clean catch specimen, clear, drea colored, Amount Voided: 20mL. jp3 15:06 Kong Brock, NAT is Primary Nurse. mg2 15:25 Bed in low position. Call light in reach. Side rails up X 1. Warm blanket given. jp3 15:46 Inserted saline lock: 24 gauge in left wrist, using aseptic technique. Blood collected. mg2 16:15 Throat Culture Sent. mg2 17:[address] via wheelchair. vr 17:56 CT Abd/Pelvis - W/Contrast In Process Unspecified. EDMS 18:07 Inserted saline lock: 22 gauge in right antecubital area, using aseptic technique. by mg2 NAT Zarate. 18:58 IV discontinued, intact, bleeding controlled, No redness/swelling at site. Pressure jp3 dressing applied, 24-gauge removed. 19:05 IV discontinued, intact, bleeding controlled, No redness/swelling at site. Pressure jp3 dressing applied, 22-gauge in Right Arm. 19:14 No provider procedures requiring assistance completed. mg2 19:14 IV discontinued. mg2 Administered Medications: 15:37 Drug: NS 0.9% 1000 ml Route: IV; Rate: 1000 ml; Site: left wrist; mg2 19:22 Follow up: Response: No adverse reaction; IV Status: Completed infusion mg2 15:37 Drug: Zofran 4 mg Route: IVP; Site: right wrist; mg2 16:41 Follow up: Response: No adverse reaction; Marked relief of symptoms mg2 15:45 Drug: fentaNYL (PF) 50 mcg Route: IVP; Site: left wrist; mg2 16:41 Follow up: Response: No adverse reaction; Marked relief of symptoms mg2 18:06 Drug: fentaNYL (PF) 50 mcg Route: IVP; Site: right antecubital; mg2 19:07 Follow up: Response: No adverse reaction; Marked relief of symptoms mg2 Point of Care Testing: Blood Glucose: 17:33 Blood Glucose: 274 mg/dL; mg2 Ranges: Outcome: 18:55 Discharge ordered by . kb 19:14 Discharged to home ambulatory. mg2 19:14 Condition: stable 19:14 Discharge instructions given to patient, Instructed on discharge instructions, follow up and referral plans. medication usage, Demonstrated understanding of instructions, follow-up care, medications, Prescriptions given X 2. 19:21 Patient left the ED. mg2 Signatures: Dispatcher [employer] EDMS Cookie Walker, CUSTODIAN-C CUSTODIAN-CkDeanna Kyle, RN Fátima Castellon Sheri sb2 Kong Brock RN RN mg2 Bebeto Jacobs jp3
--- NOTE | 2017-12-04 18:57 | EDPHYS ---
Physician Documentation [facility] Name: Elly Clarke Age: 47 yrs Sex: Female : 1970 Arrival Date: 12/04/2017 Time: 14:48 Bed 28 Private MD: Pavel Curran T ED Physician George Stern HPI: 12/04 15:50 This 47 yrs old Female presents to ER via Ambulatory with complaints of kb Abdominal Pain, Cough, Fever. 15:50 The patient presents with abdominal pain that is diffuse. Onset: The symptoms/episode kb began/occurred last night. The symptoms do not radiate. Associated signs and symptoms: Pertinent positives: nausea, sore throat. The symptoms are described as constant. Modifying factors: The symptoms are alleviated by nothing, the symptoms are aggravated by pressure. Severity of pain: At its worst the pain was moderate in the emergency department the pain is unchanged. The patient has experienced similar episodes in the past. The patient has not recently seen a physician. 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 N/A - Hysterectomy aj Historical: - Allergies: 14:55 Claritin (insomnia); aj 14:55 Compazine (Seizures); aj 14:55 Demerol (HEART RACING); aj 14:55 (Hives); aj 14:55 Morphine (RACING HEART); aj 14:55 mushrooms; aj - Home Meds: 14:55 Abilify Oral [Active]; Celexa Oral [Active]; Klonopin 0.5 mg Oral tab 1 tab 2 times per aj day [Active]; Metformin Oral [Active]; tizanidine Oral BID [Active]; - PMHx: 14:55 Arthritis; Chrohns; Chronic pain; Diabetes - NIDDM; Dramatic migraine events; aj Gastroparesis; High Cholesterol; Hypertension; Migraines; Pancreatitis; spinal stenosis; - PSHx: 14:55 Hysterectomy; Knee surgery; Cholecystectomy; Tonsillectomy; aj - Immunization history:: Adult Immunizations up to date. - Social history:: Smoking status: Patient/guardian denies using tobacco. - Ebola Screening: : Patient negative for fever greater than or equal to 101.5 degrees Fahrenheit, and additional compatible Ebola Virus Disease symptoms Patient denies exposure to infectious person Patient denies travel to an Ebola-affected area in the 21 days before illness onset No symptoms or risks identified at this time. ROS: 15:46 Constitutional: Negative for fever, chills, and weight loss, Cardiovascular: Negative kb for chest pain, palpitations, and edema, Respiratory: Negative for shortness of breath, cough, wheezing, and pleuritic chest pain, Back: Negative for injury and pain, : Negative for injury, bleeding, discharge, and swelling, MS/Extremity: Negative for injury and deformity, Skin: Negative for injury, rash, and discoloration, Neuro: Negative for headache, weakness, numbness, tingling, and seizure. 15:46 Abdomen/GI: Positive for abdominal pain, nausea, Negative for vomiting, diarrhea, constipation. 15:48 ENT: Positive for sore throat. kb Exam: 15:46 Constitutional: This is a well developed, well nourished patient who is awake, alert, kb and in no acute distress. Head/Face: Normocephalic, atraumatic. ENT: Nares patent. No nasal discharge, no septal abnormalities noted. Tympanic membranes are normal and external auditory canals are clear. Oropharynx with no redness, swelling, or masses, exudates, or evidence of obstruction, uvula midline. Mucous membranes moist. Neck: Trachea midline, no thyromegaly or masses palpated, and no cervical lymphadenopathy. Supple, full range of motion without nuchal rigidity, or vertebral point tenderness. No Meningismus. Chest/axilla: Normal chest wall appearance and motion. Nontender with no deformity. No lesions are appreciated. Cardiovascular: Regular rate and rhythm with a normal S1 and S2. No gallops, murmurs, or rubs. Normal PMI, no JVD. No pulse deficits. Respiratory: Lungs have equal breath sounds bilaterally, clear to auscultation and percussion. No rales, rhonchi or wheezes noted. No increased work of breathing, no retractions or nasal flaring. Skin: Warm, dry with normal turgor. Normal color with no rashes, no lesions, and no evidence of cellulitis. MS/ Extremity: Pulses equal, no cyanosis. Neurovascular intact. Full, normal range of motion. Neuro: Awake and alert, GCS 15, oriented to person, place, time, and situation. Cranial nerves II-XII grossly intact. Motor strength 5/5 in all extremities. Sensory grossly intact. Cerebellar exam normal. Normal gait. 15:46 Abdomen/GI: Inspection: abdomen appears normal, Bowel sounds: normal, in all quadrants, Palpation: soft, in all quadrants, moderate abdominal tenderness, in all quadrants. Vital Signs: 14:55 BP 146 / 91; Pulse 109; Resp 16; Temp 98.6; Pulse Ox 98% on R/A; Weight 97.07 kg; aj Height 5 ft. 7 in. (170.18 cm); 16:09 BP 130 / 88; Pulse 92; Resp 18; Pulse Ox 95% on R/A; mg2 17:33 BP 130 / 96; Pulse 85; Resp 18; Pulse Ox 100% on R/A; Pain 2/10; mg2 18:30 BP 129 / 78; Pulse 80; Resp 18; Pulse Ox 100% on R/A; Pain 0/10; mg2 14:55 Body Mass Index 33.52 (97.07 kg, 170.18 cm) aj MDM: 14:57 Patient medically screened. kb 15:48 Data reviewed: vital signs, nurses notes. Data interpreted: Pulse oximetry: on room air kb is 98 %. Interpretation: normal. 18:55 Counseling: I had a detailed discussion with the patient and/or guardian regarding: the kb historical points, exam findings, and any diagnostic results supporting the discharge/admit diagnosis, lab results, radiology results, the need for outpatient follow up, a family practitioner, to return to the emergency department if symptoms worsen or persist or if there are any questions or concerns that arise at home. 12/04 15:21 Order name: Amylase, Serum; Complete Time: 16:35 kb 12/04 15:21 Order name: Basic Metabolic Panel; Complete Time: 16:35 kb 12/04 15:21 Order name: CBC with Diff; Complete Time: 16:31 kb 12/04 15:21 Order name: Hepatic Function; Complete Time: 16:35 kb 12/04 15:21 Order name: Lipase; Complete Time: 16:35 kb 12/04 15:21 Order name: Strep; Complete Time: 15:56 kb 12/04 15:51 Order name: Urine Dipstick--Ancillary (enter results); Complete Time: 15:57 eb 12/04 15:51 Order name: Urine --Ancillary (enter results); Complete Time: 15:57 eb 12/04 15:56 Order name: Throat Culture EDMS 12/04 17:18 Order name: CT Abd/Pelvis - W/Contrast; Complete Time: 18:46 kb 12/04 15:21 Order name: IV Saline Lock; Complete Time: 15:26 kb 12/04 15:21 Order name: Labs collected and sent; Complete Time: 15:26 kb 12/04 15:21 Order name: Urine Dipstick-Ancillary (obtain specimen); Complete Time: 15:26 kb 12/04 17:18 Order name: Blood Glucose Level; Complete Time: 17:33 kb Administered Medications: 15:37 Drug: NS 0.9% 1000 ml Route: IV; Rate: 1000 ml; Site: left wrist; mg2 19:22 Follow up: Response: No adverse reaction; IV Status: Completed infusion mg2 15:37 Drug: Zofran 4 mg Route: IVP; Site: right wrist; mg2 16:41 Follow up: Response: No adverse reaction; Marked relief of symptoms mg2 15:45 Drug: fentaNYL (PF) 50 mcg Route: IVP; Site: left wrist; mg2 16:41 Follow up: Response: No adverse reaction; Marked relief of symptoms mg2 18:06 Drug: fentaNYL (PF) 50 mcg Route: IVP; Site: right antecubital; mg2 19:07 Follow up: Response: No adverse reaction; Marked relief of symptoms mg2 Point of Care Testing: Blood Glucose: 17:33 Blood Glucose: 274 mg/dL; mg2 Ranges: Critical Glucose Levels:Adult <50 mg/dl or >400 mg/dl <40 mg/dl or >180 mg/dl Disposition: 12/04/17 18:55 Discharged to Home. Impression: Generalized abdominal pain. - Condition is Stable. - Discharge Instructions: Abdominal Pain, Adult, [id number]. - Prescriptions for Zofran 4 mg Oral Tablet - take 1 tablet by ORAL route every 6 hours As needed; 20 tablet. Tramadol 50 mg Oral Tablet - take 1 tablet by ORAL route every 8 hours as needed; 12 tablet. - Medication Reconciliation Form, Thank You Letter, Antibiotic Education, Prescription Opioid Use form. - Follow up: Private Physician; When: 2 - 3 days; Reason: Recheck today's complaints, Continuance of care, Re-evaluation by your physician. Follow up: Emergency Department; When: As needed; Reason: Worsening of condition. Signatures: Dispatcher [employer] EDMS Cookie Walker, TRADING MANAGER-C TRADING MANAGER-Kyleb Deanna Ramachandran, RN RN aj Kong Brock, RN RN mg2 Corrections: (The following items were deleted from the chart) 19:21 18:55 12/04/2017 18:55 Discharged to Home. Impression: Generalized abdominal pain. mg2 Condition is Stable. Forms are Medication Reconciliation Form, Thank You Letter, Antibiotic Education, Prescription Opioid Use. Follow up: Private Physician; When: 2 - 3 days; Reason: Recheck today's complaints, Continuance of care, Re-evaluation by your physician. Follow up: Emergency Department; When: As needed; Reason: Worsening of condition. kb
[2017-12-04 19:41] VITALS: TEMP 98.6
[2017-12-04 19:44] VITALS: BP 130/96; O2SAT 100
== END 2017-12-04 19:21 | disposition home or self-care (01) ==
LOC: ER 14:45
DX: R10.84 Generalized abdominal pain (principal); I10 Essential (primary) hypertension; E11.9 Type 2 diabetes mellitus without complications; E78.00 Pure hypercholesterolemia, unspecified; Z88.1 Allergy status to other antibiotic agents; Z88.5 Allergy status to narcotic agent; Z88.8 Allergy status to other drugs, medicaments and biological substances; Z91.018 Allergy to other foods
CPT/HCPCS: 36415; 74177; 80048; 80076; 81003; 81025; 82150; 82962; 83690; 85025; 87070; 87081; 99284; J2405; J3010; J7030; Q9967

== ENCOUNTER 2018-02-07 18:35 | Emergency (ER) | payer OTHER ==
--- OUTSIDE RECORDS SUMMARY | 2018-02-07 18:37 | XMS REPORT | Clinical Summary ---
:1970 Author Organization [facility] Address [address] [place] [address] Care Team Providers Name Role Phone Pavel Curran MD Primary Care Provider Allergies Active Allergy Reactions Severity Noted Date Comments Loratadine-Pseudoephedrine Other (See Comments) 08/28/2017 hyperactivity Prochlorperazine Other (See Comments) 08/28/2017 Seizures Meperidine Rash Low 08/28/2017 Kkrexolav-Ljdocv-Ubzxidpn-Scop Itching, Rash Low 08/28/2017 Morphine Rash Low 08/28/2017 Medications Medication Sig Dispensed Refills Start End Date Status Date traMADol (ULTRAM) Take 50 mg by 0 Active 50 mg tablet mouth 2 (two) times daily. butorphanol 1 spray by Nasal 0 Active (STADOL) 10 mg/mL route every 4 nasal spray (four) hours as needed for Pain. amitriptyline Take 10 mg by 0 Active (ELAVIL) 10 MG mouth nightly. tablet tiZANidine Take 4 mg by mouth 0 Active (ZANAFLEX) 2 MG every 6 (six) [...] daily. 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 Last Filed Vital Signs Vital Sign Reading [...] - Plan of Treatment Not on file Procedures Procedure Name Priority Date/Time Associated Comments Diagnosis RHYTHM STRIP - SCAN 09/02/2017 12:41 PM CDT POCT-GLUCOSE METER Routine 09/01/2017 4:51 Results for this PM CDT procedure are in the results section. POCT-GLUCOSE METER Routine 09/01/2017 12:05 Results for this PM CDT procedure are in the results section. POCT-GLUCOSE METER Routine 09/01/2017 10:52 Results for this AM CDT procedure are in the results section. POCT-GLUCOSE METER Routine 09/01/2017 7:45 Results for this AM CDT procedure are in the results section. LIPID PANEL Routine 09/01/2017 4:59 Results for this AM CDT procedure are in the results section. POCT-GLUCOSE METER Routine 08/31/2017 9:43 Results for this PM CDT procedure are in the results section. POCT-GLUCOSE METER Routine 08/31/2017 5:29 Results for this PM CDT procedure are in the results section. POCT-GLUCOSE METER Routine 08/31/2017 12:19 Results for this PM CDT procedure are in the results section. POCT-GLUCOSE METER Routine 08/31/2017 7:26 Results for this AM CDT procedure are in the results section. POCT-GLUCOSE METER Routine 08/30/2017 8:58 Results for this PM CDT procedure are in the results section. CT/CTA BRAIN Routine 08/30/2017 6:05 Results for this PM CDT procedure are in the results section. CT/CTA CAROTID Routine 08/30/2017 6:05 Results for this PM CDT procedure are in the results section. POCT-GLUCOSE METER Routine 08/30/2017 4:58 Results for this PM CDT procedure are in the results section. ECHOCARDIOGRAM REPORT 08/30/2017 2:50 - SCAN PM CDT POCT-GLUCOSE METER Routine 08/30/2017 11:55 Results for this AM CDT procedure are in the results section. BASIC METABOLIC PANEL Routine 08/30/2017 9:00 Results for this (7) AM CDT procedure are in the results section. POCT-GLUCOSE METER Routine 08/30/2017 8:04 Results for this AM CDT procedure are in the results section. CBC W/PLT COUNT & AUTO Routine 08/30/2017 5:10 Results for this DIFFERENTIAL AM CDT procedure are in the results section. TROPONIN I Routine 08/30/2017 5:10 Results for this AM CDT procedure are in the results section. CBC W/PLT COUNT & AUTO Routine 08/30/2017 5:10 Results for this DIFFERENTIAL AM CDT procedure are in the results section. XR CHEST 1 VIEW STAT 08/30/2017 4:15 Results for this PORTABLE/BEDSIDE AM CDT procedure are in the results section. POCT-GLUCOSE METER Routine 08/29/2017 9:07 Results for this PM CDT procedure are in the results section. POCT-GLUCOSE METER Routine 08/29/2017 5:51 Results for this PM CDT procedure are in the results section. 2D ECHO W/ DOPPLER Routine 08/29/2017 3:24 Results for this (CW/PW/COLOR) PM CDT procedure are in the results section. POCT-GLUCOSE METER Routine 08/29/2017 2:13 Results for this PM CDT procedure are in the results section. CT BRAIN WITHOUT IV Routine 08/29/2017 1:41 Results for this CONTRAST PM CDT procedure are in the results section. PERIPHERAL VASCULAR 08/29/2017 10:20 REPORT - SCAN AM CDT CAROTID DOPPLER Routine 08/29/2017 8:57 Results for this BILATERAL AM CDT procedure are in the results section. CBC W/PLT COUNT & AUTO Routine 08/29/2017 4:55 Results for this DIFFERENTIAL AM CDT procedure are in the results section. VITAMIN B12 Routine 08/29/2017 4:55 Results for this AM CDT procedure are in the results section. TSH/FREE T4 IF Routine 08/29/2017 4:55 Results for this INDICATED AM CDT procedure are in the results section. HEMOGLOBIN A1C AP Routine 08/29/2017 4:55 Results for this AM CDT procedure are in the results section. CBC W/PLT COUNT & AUTO Routine 08/29/2017 4:55 Results for this DIFFERENTIAL AM CDT procedure are in the results section. URINALYSIS W/ Routine 08/28/2017 11:16 Results for this MICROSCOPIC PM CDT procedure are in the results section. TROPONIN I STAT 08/28/2017 10:36 Results for this PM CDT procedure are in the results section. BASIC METABOLIC PANEL Routine 08/28/2017 10:36 Results for this (7) PM CDT procedure are in the results section. ECG 12-LEAD Routine 08/28/2017 9:44 Results for this PM CDT procedure are in the results section. POCT-GLUCOSE METER Routine 08/28/2017 8:33 Results for this PM CDT procedure are in the results section. after 02/06/2017 Results RHYTHM STRIP - SCAN (09/02/2017 12:41 PM CDT) Narrative Performed At POC-Glucose meter (09/01/2017 4:51 PM CDT)Only the most recent of16 resultswithin the time period is included. POC-Glucose Meter 298 (H)Comment: TESTED AT 70 - 110 mg/dL [facility] [address] [place], [place] [id number] Specimen Blood Performing Organization Address [facility] [place] Phone Number [address] [phone] [place] Lipid panel (09/01/2017 4:59 AM CDT) Triglycerides 279 mg/dL [facility] Cholesterol 119 mg/dL [facility] HDL 22 mg/dL [facility] LDL Calculated 41 mg/dL [facility] Specimen Blood Narrative Performed At [facility] Triglyceride Reference Range: Low Risk <150 [id number] High Risk 200-499 Very High Risk>=500 Cholesterol Reference Range: Low Risk <200 [id number] High Risk>240 HDL Cholesterol Reference Range: Low Risk >=60 High Risk <40 LDL Cholesterol Reference Range: Optimal<100 Near [id number] Tlffsvkfes247-124 Ivqh461-343 Very High >=[address] [facility] [place] Phone Number [address] [phone] [place] CTA carotid (08/30/2017 6:05 PM CDT) Narrative Performed At FINAL REPORT [facility] CT angiogram of the upper chest, neck, [...] upper chest, neck, head. Signed: Iqra Petersen MD Report Verified Date/Time:08/30/2017 18:01:31 Reading Location: [facility] C013 Neuro Reading Room Procedure Note [...] upper chest, neck, head. Signed: Iqra Petersen MD Report Verified Date/Time: 08/30/2017 18:01:31 Reading Location: [facility] C013 Neuro Reading Room Performing Organization Address City/State/Zipcode Phone Number [facility] CTA brain (08/30/2017 6:05 PM CDT) Narrative Performed At FINAL REPORT [facility] CT angiogram of the upper chest, neck, [...] upper chest, neck, head. Signed: Iqra Petersen MD Report Verified Date/Time:08/30/2017 18:01:31 Reading Location: [facility] B1 C013 Neuro Reading Room Procedure Note Interface, [...] upper chest, neck, head. Signed: Iqra Petersen MD Report Verified Date/Time: 08/30/2017 18:01:31 Reading Location: [address] Neuro Reading Room Performing Organization Address City/State/Zipcode Phone Number [facility] ECHOCARDIOGRAM REPORT - SCAN (08/30/2017 2:50 PM CDT) Narrative Performed At Basic Metabolic Panel (08/30/2017 9:00 AM CDT)Only the most recent of2 resultswithin the time period is included. Sodium 137 136 - 145 meq/L [facility] Potassium 4.1 3.5 - 5.1 meq/L [facility] Chloride 106 98 - 107 meq/L [facility] CO2 24 22 - 29 meq/L [facility] BUN 11 7 - 21 mg/dL [facility] Creatinine 0.81 0.57 - 1.25 mg/dL [facility] Glucose 264 (H) 70 - 105 mg/dL [facility] Calcium 9.1 8.4 - 10.2 mg/dL [facility] EGFR 75Comment: ESTIMATED GFR IS mL/min/1.73 sq m [facility] NOT ACCURATE [facility] CLEARANCE IN PREDICTING GLOMERULAR FILTRATION RATE. ESTIMATED GFR IS NOT APPLICABLE FOR DIALYSIS PATIENTS. Specimen Blood Performing Organization Address City/State/Zipcode Phone Number [facility] [address] [place] [address] CENTER CBC with platelet count + automated diff (08/30/2017 5:10 AM CDT)Only the most recent of2 resultswithin the time period is included. WBC 6.6 3.5 - 10.5 K/L [facility] RBC 4.40 3.93 - 5.22 M/L [facility] Hemoglobin 11.8 11.2 - 15.7 GM/DL [facility] Hematocrit 36.1 34.1 - 44.9 % [facility] MCV 82.0 79.4 - 94.8 fL [facility] MCH 26.8 25.6 - 32.2 pg [facility] MCHC 32.7 32.2 - 35.5 GM/DL [facility] RDW 13.2 11.7 - 14.4 % [facility] Platelets 231 150 - 450 K/CU MM [facility] MPV 10.9 9.4 - 12.3 fL [facility] nRBC 0 0 - 0 /100 WBC [facility] % Neutros 50 % [facility] % Lymphs 41 % [facility] % Monos 6 % [facility] % Eos 2 % [facility] % Baso 1 % [facility] # Neutros 3.34 1.56 - 6.13 K/L [facility] # Lymphs 2.67 1.18 - 3.74 K/L [facility] # Monos 0.40 (H) 0.24 - 0.36 K/L [facility] # Eos 0.15 0.04 - 0.36 K/L [facility] # Baso 0.03 0.01 - 0.08 K/L [facility] Immature Granulocytes-Relative 0 0 - 1 % [facility] Specimen Blood Performing Organization Address City/[facility]/Zipcode Phone Number [address] [address] [place] Troponin I (08/30/2017 5:10 AM CDT)Only the most recent of2 resultswithin the time period is included. Troponin I <0.01 0.00 - 0.03 ng/mL [facility] Specimen Blood Narrative Performed At [facility] Troponin I (TnI) levels must be interpreted [...] acidosis, acute neurological disease, and persistent tachyarrhythmia. Performing Organization Address City/State/Zipcode Phone Number [address] [address] [place] XR chest 1 view portable / bedside (08/30/2017 4:15 AM CDT) Narrative Performed At FINAL REPORT [facility] Comparison examination: None No pneumothorax, focal pulmonary consolidation, or significant pleural effusion. Normal cardiomediastinal contours. Normal skeleton and soft tissues. Impression: No acute abnormality. Signed: Ervin Jenkins MD Report Verified Date/Time:08/30/2017 04:23:04 Reading Location: [address] Reading Room Procedure Note Interface, External Ris In - 08/30/2017 4:25 AM CDT FINAL REPORT Comparison examination: None No pneumothorax, focal pulmonary consolidation, or significant pleural effusion. Normal cardiomediastinal contours. Normal skeleton and soft tissues. Impression: No acute abnormality. Signed: Ervin Jenkins MD Report Verified Date/Time: 08/30/2017 04:23:04 Reading Location: [address] Reading Room Performing Organization Address City/State/Zipcode Phone Number [facility] 2D Echo W/Doppler(CW/PW/Color) (08/29/2017 3:24 PM CDT) Ejection Fraction [facility]airyMEM[facility] Narrative Performed At Transthoracic Echocardiography Report (TTE) [facility] Demographics Patient Name RHONA CORNEJO Date of Study 08/29/2017 ALES[place] [id number] GenderFemale Visit Number [id number] Unknown [id number] Room Number [id number] Number Date of Birth1970Referring Physician Vipul Riley Age47 year(s)Steam Fitter AndreatIrosalie Manning Physician Procedure Type of Study TTE [...] left ventricle is chamber size (by PSLAX di mension) is normal (male - LVIDd 4.2-5.8cm) . Mi ld concentric LV hypertrophy. All of the LV se gments contract normally . Global LV systolic fu nction normal . Estimated LVEF by qualitative as sessment is normal (60%) . No rmal (cardiac index 2-3 L/min/m2) cardiac output st ate at rest is noted. Grade 1 diastolic dy sfunction (impaired relaxation and low-normal LA pr essure). Left AtriumLA size is normal (16-34 ml/m2) . Right VentricleThe right ventricular chamber size and systolic fu nction are within normal limits. Right Atrium RA cavity size is normal . Atrial SeptumIV saline contrast injection was negative for a PFO (p atent foramen ovale) at rest and post Valsalva . Aortic Valve Normal AoV structure and function. Mitral Valve Normal MV structure. Tricuspid ValveTV structure is normal. Un able to estimate peak systolic PA pressure; in adequate TR velocity signal. Pulmonic Valve Normal PV structure and function. AortaAortic root size (SInus of Valsalva diameter) is no rmal . Pr oximal ascending aorta size is normal . PericardiumNo significant pericardial effusion is visualized. IVC/SVC/PA/PV/PleuralThe right upper pulmonary vein (RUPV) is normal . 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 Comparisons: No Reason [...] follow-up MRI if appropriate. Signed: Iqra Petersen MD Report Verified Date/Time:08/29/2017 14:52:09 Reading Location: [address] Neuro Reading Room Procedure Note Interface, [...] follow-up MRI if appropriate. Signed: Iqra Petersen MD Report Verified Date/Time: 08/29/2017 14:52:09 Reading Location: [address] Neuro Reading Room Performing Organization Address City/State/Zipcode Phone Number [facility] PERIPHERAL VASCULAR REPORT - SCAN (08/29/2017 10:20 AM CDT) Narrative Performed At Carotid doppler bilateral (08/29/2017 8:57 AM CDT) Ejection Fraction [facility] E[facility]ART[facility] MKCKESSON CPACS Impressions Performed At Right Impression [facility] MKCKESSON CPACS 1. The internal, common and external carotid [...] ; Diameters are measured in cm Narrative Performed At PV LAB - Carotid Duplex Study [facility] MKCKESSON [facility] Demographics Patient Name Tone CORNEJO of Study 08/29/2017 ALESIA [id number] Age 47 Visit Number [id number] GenderFemale Accession Number [id number] Date of 1970 [facility] Number [id number] Physician SonographerMando Giordano MD, [place] [...] Study 08/29/2017 ALESIA Age 47 Visit Number [id number] Gender Female Accession Number [id number] Date of 1970 Referring [facility] Room Number [id number] Physician Steam Fitter Mando Giordano MD, [place] Physician RPVI Procedure [...] cm/s ; Diameters are measured in cm Performing Organization Address City/[facility] Phone Number [facility] MKCKESSON CPACS TSH/Free T4 If Indicated (08/29/2017 4:55 AM CDT) TSH 1.55 0.35 - 4.94 uIU/mL [facility] Specimen Blood Performing Organization Address City/[facility] Phone Number [address] [address] [phone] CENTER Hemoglobin A1c (08/29/2017 4:55 AM CDT) Hemoglobin A1C 13.7 (H) 4.3 - 6.1 % [facility] Specimen Blood Performing Organization Address City/[facility]/Zipcode Phone Number [address] [address] [place] Vitamin B12 (08/29/2017 4:55 AM CDT) Vitamin B12 300 213 - 816 pg/mL [facility] Specimen Blood Performing Organization Address [facility] Phone Number [address] [address] [place] Urinalysis w/Microscopic (08/28/2017 11:16 PM CDT) Color, UA Brown [facility] Clarity, UA Hazy [facility] Specific [place], UA 1.016 1.001 - 1.035 [facility] pH, UA 5.0 5.0 - 8.0 [facility] Protein, UA 30 mg/dL (A) Negative [facility] Glucose, UA 300 mg/dL (A) Negative [facility] Ketones, UA Negative Negative [facility] Bilirubin, UA Positive (A) Negative [facility] Blood, UA Negative Negative [facility] Nitrite, UA Positive (A) Negative [facility] Leukocytes, UA Small (A) Negative [facility] Urobilinogen, UA 3.0 (H) 0.2 - 1.0 mg/dL [facility] RBC, UA 2 /HPF [facility] WBC, UA 24 /HPF [facility] Bacteria, UA Many [facility] Mucus Rare [facility] Squam Epithel, UA 7 /HPF [facility] Hyaline Casts, UA 16 /LPF [facility] Casts 16 /LPF [facility] Yeast Occasional [facility] Specimen Source [facility] Specimen Urine Performing Organization Address City/State/Zipcode Phone Number [facility] [address] [place] [address] CENTER ECG 12 lead (08/28/2017 9:44 PM CDT) Narrative Performed At Ventricular Rate 69 BPM GE MUSE Atrial Rate 69 BPM P-R Interval 182 ms QRS Duration 88 ms Q-T Interval 410 ms QTC Calculation(Bazett) 439 ms P [place] 19 degrees R [place]one 18 degrees T [place] 21 degrees Normal sinus rhythm Normal ECG No previous ECGs available Confirmed by MD GARCIA D. RICHARD ([id number]) on 08/29/2017 10:54:52 AM Procedure Note Interface, External Ris In - 08/29/2017 10:54 AM CDT Ventricular Rate 69 BPM Atrial Rate 69 BPM P-R Interval 182 ms QRS Duration 88 ms Q-T Interval 410 ms QTC Calculation(Bazett) 439 ms P [place] 19 degrees R [place] 18 degrees T [place] 21 degrees Normal sinus rhythm Normal ECG No previous ECGs available Confirmed by MD GARCIA D. RICHARD ([id number]) on 08/29/2017 10:54:52 AM Performing Organization Address City/State/Zipcode Phone Number GE MUSE after 02/06/2017 Insurance Payer Benefit Plan / Subscriber ID Type Phone Address Group BLUE CROSS/BLUE BCBS PPO POS EPO xxxxxxxxxxxx PPO [phone] [address] [place] [address] ([place]) [place] [address] Advance Directives For more information, please contact:[place] [phone] HernadezjacquesTall[place], [place] [phone] Code Status Date Activated Date Inactivated Comments Full Code 08/28/2017 9:21 PM 09/01/2017 8:22 PM This code status was determined by: Patient
--- OUTSIDE RECORDS SUMMARY | 2018-02-07 18:38 | XMS REPORT ---
:1970 Author Organization [facility] Address [address] [place] [address] Dr. Kumar [address] [place] [address] Care Team Providers Name Role Phone HARINI [...] (BEAKER) (test 298 mg/dL 70-110 TESTED AT [address] lkpp=0921) [place] [id number] POCT-GLUCOSE [id number] 12:11:00 Test Item Value Reference Range Comments POC-GLUCOSE METER (BEAKER) 331 mg/dL 70-110 Notified NAT SOUZA/TESTED AT [facility] (test jtko=3796) [address] [place], [place] [id number] POCT-GLUCOSE [id number] 10:55:00 Test Item Value Reference Range Comments POC-GLUCOSE METER (BEAKER) 365 mg/dL 70-110 TESTED AT [address] (test emfv=6528) [place] [id number] POCT-GLUCOSE [id number] 08:44:00 Test Item Value Reference Range Comments POC-GLUCOSE METER (BEAKER) 291 mg/dL 70-110 TESTED AT [address] (test aamq=2153) [place] [address] LIPID [id number] 05:56:00 Test Item Value Reference Range Comments TRIGLYCERIDES (BEAKER) (test hpio=962) 279 mg/dL CHOLESTEROL (BEAKER) (test kgju=346) 119 mg/dL HDL CHOLESTEROL (BEAKER) (test lmnf=084) 22 mg/dL LDL CHOLESTEROL CALCULATED (BEAKER) (test 41 mg/dL enkw=961) Triglyceride Reference Range: Low Risk <150 Borderline 150- 199 High Risk 200-499 Very High Risk >=500Cholesterol Reference Range: Low Risk <200 Borderline 200-239 High Risk > 240HDL Cholesterol Reference Range: Low Risk >=60 High Risk <40LDL Cholesterol Reference Range: Optimal <100 Near Optimal 100-129 Borderline 130-159 High 160-189 Very High >=190POCT-GLUCOSE [id number] 21:50:00 Test Item Value Reference Range Comments POC-GLUCOSE METER (BEAKER) 318 mg/dL 70-110 TESTED AT [address] (test ywmk=5913) [place] [id number] POCT-GLUCOSE [id number] 18:04:00 Test Item Value Reference Range Comments POC-GLUCOSE METER (BEAKER) 238 mg/dL 70-110 TESTED AT [address] (test knfo=2301) [facility] [address] POCT-GLUCOSE [id number] 12:22:00 Test Item Value Reference Range Comments POC-GLUCOSE METER (BEAKER) 290 mg/dL 70-110 TESTED AT [address] (test xuax=1291) [facility] [address] POCT-GLUCOSE [id number] 09:20:00 Test Item Value Reference Range Comments POC-GLUCOSE METER (BEAKER) 293 mg/dL 70-110 TESTED AT [address] (test tsla=0598) [place] [id number] POCT-GLUCOSE [id number] 21:00:00 Test Item Value Reference Range Comments POC-GLUCOSE METER (BEAKER) 225 mg/dL 70-110 TESTED AT [address] (test hodu=0671) [facility] [address] [address], CAROTID, [id number] 18:01:00FINAL REPORT CT angiogram of the upper [...] Petersen Verified Date/Time: 08/30/2017 18:01:31 Reading Location: [address] Neuro Reading Room [facility] [id number] 18:01:00FINAL REPORT CT angiogram of the upper [...] [place] Verified Date/Time: 08/30/2017 18:01:31 Reading Location: [facility] C013V Neuro Reading Room POCT-GLUCOSE [id number] 17:21: 00 Test Item Value Reference Range Comments POC-GLUCOSE METER (BEAKER) 256 mg/dL 70-110 TESTED AT [address] (test aqvs=9779) [place] [address] POCT-GLUCOSE [id number] 12:00:00 Test Item Value Reference Range Comments POC-GLUCOSE METER (BEAKER) 289 mg/dL 70-110 TESTED AT [address] (test jyxn=2866) [place] [address] BASIC METABOLIC [id number] 10:12:00 Test Item Value Reference Range Comments SODIUM (BEAKER) (test 137 meq/L 136-145 ozxw=898) POTASSIUM (BEAKER) (test 4.1 meq/L 3.5-5.1 xdgd=958) CHLORIDE (BEAKER) (test 106 meq/L 98-107 auwq=024) CO2 (BEAKER) (test 24 meq/L 22-29 ovoj=846) BLOOD UREA NITROGEN 11 mg/dL 7-21 (BEAKER) (test skee=238) CREATININE (BEAKER) (test 0.81 mg/dL 0.57-1.25 pryf=242) GLUCOSE RANDOM (BEAKER) 264 mg/dL 70-105 (test odlg=288) CALCIUM (BEAKER) (test 9.1 mg/dL 8.4-10.2 yrxq=193) EGFR (BEAKER) (test 75 mL/min/1.73 sq m ESTIMATED GFR IS NOT xval=7032) ACCURATE CREATININE CLEARANCE IN PREDICTING GLOMERULAR FILTRATION RATE. ESTIMATED GFR IS NOT APPLICABLE FOR DIALYSIS PATIENTS. POCT-GLUCOSE [id number] 08:42:00 Test Item Value Reference Range Comments POC-GLUCOSE METER (BEAKER) 259 mg/dL 70-110 TESTED AT [address] (test dekt=5672) [place] [id number] TROPONIN [id number] 06:14:00 Test Item Value Reference Range Comments TROPONIN I (BEAKER) (test hapn=641) < ng/mL 0.00-0.03 Troponin I (TnI) levels [...] and persistent tachyarrhythmia.CBC W/PLT COUNT & AUTO [id number] 06:09:00 Test Item Value Reference Range Comments WHITE BLOOD CELL COUNT (BEAKER) (test ekht=828) 6.6 K/ L 3.5-10.5 RED BLOOD CELL COUNT (BEAKER) (test scuh=295) 4.40 M/ L 3.93-5.22 HEMOGLOBIN (BEAKER) (test jrje=232) 11.8 GM/DL 11.2-15.7 HEMATOCRIT (BEAKER) (test hxje=312) 36.1 % 34.1-44.9 MEAN CORPUSCULAR VOLUME (BEAKER) (test tghm=833) 82.0 fL 79.4-94.8 MEAN CORPUSCULAR HEMOGLOBIN (BEAKER) (test 26.8 pg 25.6-32.2 yjnu=514) MEAN CORPUSCULAR HEMOGLOBIN CONC (BEAKER) (test 32.7 GM/DL 32.2-35.5 lauc=115) RED CELL DISTRIBUTION WIDTH (BEAKER) (test 13.2 % 11.7-14.4 pmsi=831) PLATELET COUNT (BEAKER) (test lowj=777) 231 K/CU MM 150-450 MEAN PLATELET VOLUME (BEAKER) (test krkj=636) 10.9 fL 9.4-12.3 NUCLEATED RED BLOOD CELLS (BEAKER) (test 0 /100 WBC 0-0 fxjp=457) NEUTROPHILS RELATIVE PERCENT (BEAKER) (test 50 % coog=084) LYMPHOCYTES RELATIVE PERCENT (BEAKER) (test 41 % dgdx=662) MONOCYTES RELATIVE PERCENT (BEAKER) (test 6 % mryz=692) EOSINOPHILS RELATIVE PERCENT (BEAKER) (test 2 % wpct=075) BASOPHILS RELATIVE PERCENT (BEAKER) (test 1 % koto=707) NEUTROPHILS ABSOLUTE COUNT (BEAKER) (test 3.34 K/ L 1.56-6.13 iwbb=780) LYMPHOCYTES ABSOLUTE COUNT (BEAKER) (test 2.67 K/ L 1.18-3.74 lfme=417) MONOCYTES ABSOLUTE COUNT (BEAKER) (test 0.40 K/ L 0.24-0.36 gwvc=560) EOSINOPHILS ABSOLUTE COUNT (BEAKER) (test 0.15 K/ L 0.04-0.36 zsqe=259) BASOPHILS ABSOLUTE COUNT (BEAKER) (test 0.03 K/ L 0.01-0.08 aqvh=521) IMMATURE GRANULOCYTES-RELATIVE PERCENT (BEAKER) 0 % 0-1 (test qqlo=6922) RAD, CHEST, 1 VIEW, NON [id number] 04:23:00Reason for exam:->chest painShould this be performed at the bedside?->YesFINAL REPORT Comparison examination: None No pneumothorax, focal pulmonary consolidation, or significant pleural effusion. Normal cardiomediastinal contours. Normal skeleton and soft tissues. Impression: No acute abnormality. Signed: Ervin Jenkins Verified Date/Time: 08/30/2017 04:23 :04 Reading Location: [address] Reading Room POCT-GLUCOSE [id number] 21:18:00 Test Item Value Reference Range Comments POC-GLUCOSE METER (BEAKER) 151 mg/dL 70-110 TESTED AT [address] (test mron=8161) [facility] [address] POCT-GLUCOSE [id number] 17:59:00 Test Item Value Reference Range Comments POC-GLUCOSE METER (BEAKER) 146 mg/dL 70-[address] [facility] [address] [facility] (test jetx=2401) [facility] [address] HEMOGLOBIN [id number] 15:56:00 Test Item Value Reference Range Comments HEMOGLOBIN A1C (BEAKER) (test znop=412) 13.7 % 4.3-6.1 CT, BRAIN, WITHOUT [id number] 14:52:00FINAL REPORT CT head without contrast. Comparisons: [...] Petersen Verified Date/Time: 08/29/2017 14:52:09 Reading Location: [address] Neuro Reading Room POCT-GLUCOSE [id number] 14:17:00 Test Item Value Reference Range Comments POC-GLUCOSE METER (BEAKER) 423 mg/dL 70-110 Notified NAT SOUZA/TESTED AT [facility] (test nihg=7122) [address] [facility] [address] VITAMIN [id number] 06:48:00 Test Item Value Reference Range Comments VITAMIN B12 (BEAKER) (test ovsy=023) 300 pg/mL 213-816 TSH/FREE T4 IF [id number] 06:48:00 Test Item Value Reference Range Comments THYROID STIMULATING HORMONE (BEAKER) (test 1.55 uIU/mL 0.35-4.94 ebhu=946) CBC W/PLT COUNT & AUTO [id number] 05:10:00 Test Item Value Reference Range Comments WHITE BLOOD CELL COUNT (BEAKER) (test pbve=677) 8.6 K/ L 3.5-10.5 RED BLOOD CELL COUNT (BEAKER) (test ilcq=697) 4.62 M/ L 3.93-5.22 HEMOGLOBIN (BEAKER) (test ekwl=493) 12.2 GM/DL 11.2-15.7 HEMATOCRIT (BEAKER) (test jmem=098) 42.2 % 34.1-44.9 MEAN CORPUSCULAR VOLUME (BEAKER) (test roel=498) 91.3 fL 79.4-94.8 MEAN CORPUSCULAR HEMOGLOBIN (BEAKER) (test 26.4 pg 25.6-32.2 ffri=706) MEAN CORPUSCULAR HEMOGLOBIN CONC (BEAKER) (test 28.9 GM/DL 32.2-35.5 kqtf=928) RED CELL DISTRIBUTION WIDTH (BEAKER) (test 13.2 % 11.7-14.4 lmqd=792) PLATELET COUNT (BEAKER) (test oekf=193) 80 K/CU MM 150-450 MEAN PLATELET VOLUME (BEAKER) (test dbbj=802) 10.9 fL 9.4-12.3 NUCLEATED RED BLOOD CELLS (BEAKER) (test 0 /100 WBC 0-0 xkhg=117) NEUTROPHILS RELATIVE PERCENT (BEAKER) (test 45 % rudz=905) LYMPHOCYTES RELATIVE PERCENT (BEAKER) (test 46 % iawz=210) MONOCYTES RELATIVE PERCENT (BEAKER) (test 6 % rpsk=738) EOSINOPHILS RELATIVE PERCENT (BEAKER) (test 2 % dtzz=004) BASOPHILS RELATIVE PERCENT (BEAKER) (test 1 % tswd=585) NEUTROPHILS ABSOLUTE COUNT (BEAKER) (test 3.91 K/ L 1.56-6.13 nmmd=543) LYMPHOCYTES ABSOLUTE COUNT (BEAKER) (test 3.95 K/ L 1.18-3.74 vvbk=431) MONOCYTES ABSOLUTE COUNT (BEAKER) (test pqah=527) 0.54 K/ L 0.24-0.36 EOSINOPHILS ABSOLUTE COUNT (BEAKER) (test 0.13 K/ L 0.04-0.36 xyoi=066) BASOPHILS ABSOLUTE COUNT (BEAKER) (test wzge=515) 0.07 K/ L 0.01-0.08 IMMATURE GRANULOCYTES-RELATIVE PERCENT (BEAKER) 0 % 0-1 (test vtvx=6838) URINALYSIS W/ [id number] 23:32:00 Test Item Value Reference Range Comments COLOR (BEAKER) (test cyeu=501) Brown CLARITY (BEAKER) (test lael=153) Hazy SPECIFIC GRAVITY UA (BEAKER) (test eqex=155) 1.016 1.001-1.035 PH UA (BEAKER) (test zmjo=723) 5.0 5.0-8.0 PROTEIN UA (BEAKER) (test irpi=263) 30 mg/dL Negative GLUCOSE UA (BEAKER) (test igry=015) 300 mg/dL Negative KETONES UA (BEAKER) (test bdso=797) Negative Negative BILIRUBIN UA (BEAKER) (test bggw=063) Positive Negative BLOOD UA (BEAKER) (test lned=607) Negative Negative NITRITE UA (BEAKER) (test zkrv=143) Positive Negative LEUKOCYTE ESTERASE UA (BEAKER) (test ecpe=256) Small Negative UROBILINOGEN UA (BEAKER) (test tsuz=498) 3.0 mg/dL 0.2-1.0 RBC UA (BEAKER) (test rejs=202) 2 /HPF WBC UA (BEAKER) (test gknj=745) 24 /HPF BACTERIA (BEAKER) (test ncjq=924) Many MUCUS (BEAKER) (test lvjf=4818) Rare SQUAMOUS EPITHELIAL (BEAKER) (test xkra=832) 7 /HPF HYALINE CASTS (BEAKER) (test gzvf=856) 16 /LPF CASTS (BEAKER) (test cgbp=3587) 16 /LPF YEAST (BEAKER) (test vvgi=9909) Occasional SOURCE(BEAKER) (test mqsl=5346) TROPONIN [id number] 23:12:00 Test Item Value Reference Range Comments TROPONIN I (BEAKER) (test kpyt=262) < ng/mL 0.00-0.03 Troponin I (TnI) levels [...] acute neurological disease, and persistent tachyarrhythmia.BASIC METABOLIC [id number] 23:05:00 Test Item Value Reference Range Comments SODIUM (BEAKER) (test 128 meq/L 136-145 imcu=706) POTASSIUM (BEAKER) (test 4.9 meq/L 3.5-5.1 Specimen moderately zrht=144) hemolyzed CHLORIDE (BEAKER) (test 100 meq/L 98-107 anim=362) CO2 (BEAKER) (test 13 meq/L 22-29 enns=021) BLOOD UREA NITROGEN 29 mg/dL 7-21 (BEAKER) (test dpkt=451) CREATININE (BEAKER) (test 1.55 mg/dL 0.57-1.25 Specimen moderately zrvt=611) hemolyzed GLUCOSE RANDOM (BEAKER) 326 mg/dL 70-105 (test eoud=624) CALCIUM (BEAKER) (test 9.6 mg/dL 8.4-10.2 wvoq=807) EGFR (BEAKER) (test 36 mL/min/1.73 sq m ESTIMATED GFR IS NOT pihd=8123) ACCURATE CREATININE CLEARANCE IN PREDICTING GLOMERULAR FILTRATION RATE. ESTIMATED GFR IS NOT APPLICABLE FOR DIALYSIS PATIENTS. POCT-GLUCOSE [id number] 20:49:00 Test Item Value Reference Range Comments POC-GLUCOSE METER (BEAKER) 376 mg/dL 70-110 Notified NAT SOUZA/TESTED AT [facility] (test ytgw=4237) [address] [place] [address]
[2018-02-07] MEDS ORDERED: NA CHLORIDE 0.9% 1,000 ML ONE (20:26)
[2018-02-07] MEDS ORDERED: FENTANYL CITR 100 MCG/2 ML ONE (20:26)
[2018-02-07] MEDS ORDERED: ONDANSETRON 4 MG/2 ML VIAL ONE (20:26)
[2018-02-07 20:58] LABS: Absolute Lymphocytes (CBC) 2.4 K/uL (0.7-4.9); Absolute Monocytes 0.5 K/uL (0.1-1.3); Absolute Neutrophil 2.5 K/uL (1.8-8.0); Basophils % 0.6 % (0-1.3); Eosinophils % 0.9 % (0-4.4); Hematocrit 41.3 % (36.0-45.0); Lymphocytes % 44.7 % (15.3-44.8); MCH 27.1 pg (27.0-35.0); MCV 80.6 fL (80-100); Monocytes % 8.3 % (3.3-12.3); RBC Red Blood Cell Count 5.13 M/uL (3.86-4.86)
[2018-02-07 21:15] LABS: ALT/SGPT 39 U/L (12-78); AST/SGOT 18 U/L (15-37); Albumin 3.1 g/dL (3.4-5.0); Alkaline Phosphatase 118 U/L (45-117); BUN Blood Urea Nitrogen 10 mg/dL (7-18); Bicarbonate 26 mmol/L (21-32); Bilirubin Direct < 0.1 mg/dL (0-0.2); Bilirubin Total 0.2 mg/dL (0.2-1.0); Glucose Level 383 mg/dL (74-106); Lipase 244 U/L (73-393); Potassium 3.4 mmol/L (3.5-5.1); Protein, Total 6.8 g/dL (6.4-8.2); Sodium Level 137 mmol/L (136-145)
[2018-02-07] MEDS ORDERED: PROMETHAZINE 25 MG/ML VIAL ONE (21:42)
[2018-02-07] MEDS ORDERED: NA CHLORIDE 0.9% 50 ML IV ONE (21:43)
--- NOTE | 2018-02-07 22:04 | EDPHYS ---
Physician Documentation [facility] Name: Elly Clarke Age: 47 yrs Sex: Female : 1970 Arrival Date: 02/07/2018 Time: 18:52 Bed 23 Private MD: Pavel Curran T ED Physician Wil Patterson HPI: 02/07 20:00 This 47 yrs old Female presents to ER via Ambulatory with complaints of pm1 Abdominal Pain, vomiting and diarrhea. 20:00 The patient presents with abdominal pain in the left upper quadrant. Onset: The pm1 symptoms/episode began/occurred 2 day(s) ago. The symptoms do not radiate. Associated signs and symptoms: Pertinent positives: nausea, vomiting, and diarrhea, Pertinent negatives: chest pain, dysuria, fever, shortness of breath. The symptoms are described as crampy. Modifying factors: The symptoms are alleviated by nothing, the symptoms are aggravated by nothing. Severity of pain: in the emergency department the pain is actually worse. The patient has experienced similar episodes in the past, multiple times. The patient has not recently seen a physician. Patient's family with the same symptoms of vomiting and diarrhea for the past few days. She is one of three in the family with the "stomach virus". 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 - Hysterectomy aj Historical: - Allergies: 18:57 Claritin (insomnia); aj 18:57 Compazine (Seizures); aj 18:57 Demerol (HEART RACING); aj 18:57 (Hives); aj 18:57 Morphine (RACING HEART); aj 18:57 mushrooms; aj - Home Meds: 18:57 Abilify Oral [Active]; Celexa Oral [Active]; Klonopin 0.5 mg Oral tab 1 tab 2 times per aj day [Active]; Metformin Oral [Active]; tizanidine Oral BID [Active]; gabapentin oral oral [Active]; - PMHx: 18:57 Arthritis; Chrohns; Chronic pain; Diabetes - NIDDM; Dramatic migraine events; aj Gastroparesis; High Cholesterol; Hypertension; Migraines; Pancreatitis; spinal stenosis; - PSHx: 18:57 Hysterectomy; Knee surgery; Cholecystectomy; Tonsillectomy; aj - Immunization history:: Adult Immunizations up to date. - Social history:: Smoking status: Patient/guardian denies using tobacco. - Ebola Screening: : Patient negative for fever greater than or equal to 101.5 degrees Fahrenheit, and additional compatible Ebola Virus Disease symptoms Patient denies exposure to infectious person Patient denies travel to an Ebola-affected area in the 21 days before illness onset No symptoms or risks identified at this time. ROS: 20:00 Constitutional: Negative for fever, chills, and weight loss, Eyes: Negative for injury, pm1 pain, redness, and discharge, ENT: Negative for injury, pain, and discharge, Neck: Negative for injury, pain, and swelling, Cardiovascular: Negative for chest pain, palpitations, and edema, Respiratory: Negative for shortness of breath, cough, wheezing, and pleuritic chest pain, Back: Negative for injury and pain. 20:00 : Negative for injury, bleeding, discharge, and swelling, MS/Extremity: Negative for injury and deformity, Skin: Negative for injury, rash, and discoloration. 20:00 Neuro: Negative for headache, weakness, numbness, tingling, and seizure. 20:00 Abdomen/GI: Positive for abdominal pain, nausea, vomiting, and diarrhea. Exam: 20:00 Constitutional: This is a well developed, well nourished patient who is awake, alert, pm1 and in no acute distress. Head/Face: Normocephalic, atraumatic. Eyes: Pupils equal round and reactive to light, extra-ocular motions intact. Lids and lashes normal. Conjunctiva and sclera are non-icteric and not injected. Cornea within normal limits. Periorbital areas with no swelling, redness, or edema. ENT: Nares patent. No nasal discharge, no septal abnormalities noted. Tympanic membranes are normal and external auditory canals are clear. Oropharynx with no redness, swelling, or masses, exudates, or evidence of obstruction, uvula midline. Mucous membranes moist. Neck: Trachea midline, no thyromegaly or masses palpated, and no cervical lymphadenopathy. Supple, full range of motion without nuchal rigidity, or vertebral point tenderness. No Meningismus. Chest/axilla: Normal chest wall appearance and motion. Nontender with no deformity. No lesions are appreciated. Cardiovascular: Regular rate and rhythm with a normal S1 and S2. No gallops, murmurs, or rubs. Normal PMI, no JVD. No pulse deficits. Respiratory: Lungs have equal breath sounds bilaterally, clear to auscultation and percussion. No rales, rhonchi or wheezes noted. No increased work of breathing, no retractions or nasal flaring. Abdomen/GI: Soft, non-tender, with normal bowel sounds. No distension or tympany. No guarding or rebound. No evidence of tenderness throughout. Back: No spinal tenderness. No costovertebral tenderness. Full range of motion. Skin: Warm, dry with normal turgor. Normal color with no rashes, no lesions, and no evidence of cellulitis. MS/ Extremity: Pulses equal, no cyanosis. Neurovascular intact. Full, normal range of motion. 20:00 Neuro: Orientation: is normal, Motor: is normal, moves all fours, Sensation: is normal, no obvious gross deficits. Vital Signs: 18:57 BP 159 / 96; Pulse 103; Resp 19; Temp 98.0; Pulse Ox 98% on R/A; Weight 95.25 kg; aj Height 5 ft. 7 in. (170.18 cm); 18:57 Body Mass Index 32.89 (95.25 kg, 170.18 cm) aj MDM: 19:13 Patient medically screened. pm1 20:00 Data reviewed: vital signs. pm1 22:02 Data interpreted: Pulse oximetry: on room air is 98 %. Interpretation: normal. pm1 Counseling: I had a detailed discussion with the patient and/or guardian regarding: the historical points, exam findings, and any diagnostic results supporting the discharge/admit diagnosis, lab results, the need for outpatient follow up, to return to the emergency department if symptoms worsen or persist or if there are any questions or concerns that arise at home. 02/07 20:12 Order name: Basic Metabolic Panel; Complete Time: 21:18 pm1 02/07 20:12 Order name: CBC with Diff; Complete Time: 21:11 pm1 02/07 20:12 Order name: Hepatic Function; Complete Time: 21:18 pm1 02/07 20:12 Order name: Lipase; Complete Time: 21:18 pm1 02/07 21:37 Order name: Urine Dipstick--Ancillary (enter results); Complete Time: 22:09 ms 02/07 21:43 Order name: Urine --Ancillary (enter results) ms 02/07 20:12 Order name: IV Saline Lock; Complete Time: 20:34 pm1 02/07 20:12 Order name: Labs collected and sent; Complete Time: 20:34 pm1 02/07 20:13 Order name: Urine Dipstick-Ancillary (obtain specimen); Complete Time: 21:38 pm1 02/07 20:13 Order name: Urine Test (obtain specimen); Complete Time: 21:38 pm1 Administered Medications: 20:33 Drug: Zofran 4 mg Route: IVP; Site: right forearm; mg2 22:16 Follow up: Response: Nausea is decreased tl3 20:34 Drug: NS 0.9% 1000 ml Route: IV; Rate: 1000 ml; Site: right forearm; mg2 22:17 Follow up: IV Status: Completed infusion; IV Intake: 500ml tl3 20:34 Drug: fentaNYL (PF) 25 mcg Route: IVP; Site: right forearm; mg2 22:17 Follow up: Response: Pain is decreased tl3 21:40 Drug: Phenergan 25 mg Route: IVP; Site: right forearm; mg2 22:16 Follow up: Response: No adverse reaction; Nausea is decreased tl3 Disposition: 22:28 Co-signature as Attending Physician, Wil Patterson MD. rn Disposition: 02/07/18 22:04 Discharged to Home. Impression: Diarrhea, unspecified, Vomiting, viral gastroenteritis. - Condition is Stable. - Discharge Instructions: Food Choices to Help Relieve Diarrhea, Adult, Diarrhea, Adult, Nausea and Vomiting, Adult, Viral Gastroenteritis, Adult. - Prescriptions for Phenergan 25 mg Rectal Suppository - insert 1 suppository by RECTAL route every 6 hours As needed; 12 suppository. promethazine 25 mg Oral Tablet - take 1 tablet by ORAL route every 6 hours As needed; 20 tablet. - Medication Reconciliation Form, Thank You Letter, Antibiotic Education, Prescription Opioid Use form. - Follow up: Emergency Department; When: As needed; Reason: Worsening of condition. Follow up: Private Physician; When: 2 - 3 days; Reason: Recheck today's complaints, Continuance of care, Re-evaluation by your physician. - Problem is new. - Symptoms have improved. Signatures: Dispatcher [employer] EDDeanna Martins RN RN aj Nieto, Roman, MD MD rn Marinas, Patrick, DENTAL EQUIPMENT MECHANIC DENTAL EQUIPMENT MECHANIC pm1 Heather, Che, RN RN tl3 Kong Brock, RN RN mg2 Corrections: (The following items were deleted from the chart) 22:19 22:04 02/07/2018 22:04 Discharged to Home. Impression: Diarrhea, unspecified; Vomiting; tl3 viral gastroenteritis. Condition is Stable. Forms are Medication Reconciliation Form, Thank You Letter, Antibiotic Education, Prescription Opioid Use. Follow up: Emergency Department; When: As needed; Reason: Worsening of condition. Follow up: Private Physician; When: 2 - 3 days; Reason: Recheck today's complaints, Continuance of care, Re-evaluation by your physician. Problem is new. Symptoms have improved. pm1
--- NOTE | 2018-02-07 22:04 | ER ---
Nurse's Notes [facility] Name: Elly Clarke Age: 47 yrs Sex: Female : 1970 Arrival Date: 02/07/2018 Time: 18:52 Bed 23 Private MD: Pavel Curran T Diagnosis: Diarrhea, unspecified;Vomiting;viral gastroenteritis Presentation: 02/07 18:55 Presenting complaint: Patient states: Upper abdominal pain and N/V since Thursday. aj Transition of care: patient was not received from another setting of care. Onset of symptoms was February 03, 2018. Risk Assessment: Do you want to hurt yourself or someone else? Patient reports no desire to harm self or others. Initial Sepsis Screen: Does the patient meet any 2 criteria? No. Patient's initial sepsis screen is negative. Does the patient have a suspected source of infection? No. Patient's initial sepsis screen is negative. Care prior to arrival: None. 18:55 Method Of Arrival: Ambulatory aj 18:55 Acuity: HANNAH 3 aj Triage Assessment: 18:57 General: Appears in no apparent distress. comfortable, Behavior is calm, cooperative, aj appropriate for age. Pain: Complains of pain in right upper quadrant and left upper quadrant. Neuro: Level of Consciousness is awake, alert, obeys commands, Oriented to person, place, time, situation, Appropriate for age. Respiratory: Airway is patent Respiratory effort is even, unlabored, Respiratory pattern is regular, symmetrical. GI: Reports upper abdominal pain, nausea, vomiting. Derm: Skin is intact, is healthy with good turgor, Skin is dry, Skin is normal, Skin temperature is warm. 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 N/A - Hysterectomy aj Historical: - Allergies: 18:57 Claritin (insomnia); aj 18:57 Compazine (Seizures); aj 18:57 Demerol (HEART RACING); aj 18:57 (Hives); aj 18:57 Morphine (RACING HEART); aj 18:57 mushrooms; aj - Home Meds: 18:57 Abilify Oral [Active]; Celexa Oral [Active]; Klonopin 0.5 mg Oral tab 1 tab 2 times per aj day [Active]; Metformin Oral [Active]; tizanidine Oral BID [Active]; gabapentin oral oral [Active]; - PMHx: 18:57 Arthritis; Chrohns; Chronic pain; Diabetes - NIDDM; Dramatic migraine events; aj Gastroparesis; High Cholesterol; Hypertension; Migraines; Pancreatitis; spinal stenosis; - PSHx: 18:57 Hysterectomy; Knee surgery; Cholecystectomy; Tonsillectomy; aj - Immunization history:: Adult Immunizations up to date. - Social history:: Smoking status: Patient/guardian denies using tobacco. - Ebola Screening: : Patient negative for fever greater than or equal to 101.5 degrees Fahrenheit, and additional compatible Ebola Virus Disease symptoms Patient denies exposure to infectious person Patient denies travel to an Ebola-affected area in the 21 days before illness onset No symptoms or risks identified at this time. Screenin:40 Abuse screen: Denies threats or abuse. Nutritional screening: No deficits noted. tl3 Tuberculosis screening: No symptoms or risk factors identified. Fall Risk None identified. Assessment: 19:40 General: Appears uncomfortable, well groomed, well developed, well nourished, Behavior tl3 is calm, cooperative, appropriate for age. Pain: Complains of pain in abdomen and left upper quadrant and right upper quadrant. Neuro: Level of Consciousness is awake, alert, obeys commands, Oriented to person, place, time, situation, Appropriate for age. Cardiovascular: Patient's skin is warm and dry. Respiratory: Airway is patent. GI: Bowel sounds present X 4 quads. Abd is soft and non tender. : No signs and/or symptoms were reported regarding the genitourinary system. EENT: No signs and/or symptoms were reported regarding the EENT system. Derm: No signs and/or symptoms reported regarding the dermatologic system. 22:16 Reassessment: Patient and/or family updated on plan of care and expected duration. Pain tl3 level reassessed. Patient is alert, oriented x 3, equal unlabored respirations, skin warm/dry/pink. pt in no distress. Vital Signs: 18:57 BP 159 / 96; Pulse 103; Resp 19; Temp 98.0; Pulse Ox 98% on R/A; Weight 95.25 kg; aj Height 5 ft. 7 in. (170.18 cm); 18:57 Body Mass Index 32.89 (95.25 kg, 170.18 cm) ED Course: 18:52 Patient arrived in ED. mr 18:53 Pavel Curran MD is Private Physician. mr 18:56 Triage completed. aj 18:57 Arm band placed on left wrist. Patient placed in waiting room, Patient notified of wait aj time. 19:11 Che Romero, RN is Primary Nurse. tl3 19:13 Jose A Leung, [email or web address] is PHCP. pm1 19:13 Wil Patterson MD is Attending Physician. pm1 19:40 Patient has correct armband on for positive identification. Bed in low position. Call tl3 light in reach. Pulse ox on. NIBP on. 19:40 No provider procedures requiring assistance completed. tl3 20:00 Inserted saline lock: 20 gauge in right antecubital area, using aseptic technique. tl3 Blood collected. 22:18 IV discontinued, intact, bleeding controlled, No redness/swelling at site. Pressure tl3 dressing applied. Administered Medications: 20:33 Drug: Zofran 4 mg Route: IVP; Site: right forearm; mg2 22:16 Follow up: Response: Nausea is decreased tl3 20:34 Drug: NS 0.9% 1000 ml Route: IV; Rate: 1000 ml; Site: right forearm; mg2 22:17 Follow up: IV Status: Completed infusion; IV Intake: 500ml tl3 20:34 Drug: fentaNYL (PF) 25 mcg Route: IVP; Site: right forearm; mg2 22:17 Follow up: Response: Pain is decreased tl3 21:40 Drug: Phenergan 25 mg Route: IVP; Site: right forearm; mg2 22:16 Follow up: Response: No adverse reaction; Nausea is decreased tl3 Intake: 22:17 IV: 500ml; Total: 500ml. tl3 Outcome: 22:04 Discharge ordered by . pm1 22:18 Discharged to home ambulatory. tl3 22:18 Condition: stable 22:18 Discharge instructions given to patient, Instructed on discharge instructions, follow up and referral plans. medication usage, Demonstrated understanding of instructions, follow-up care, medications, Prescriptions given X 2. 22:19 Patient left the ED. tl3 Signatures: Deanna Ramachandran, RN NAT catherine Ronald Angelika mr MadhuJose A, TANKER DRIVER TANKER DRIVER pm1 Che Romero, RN RN tl3 Kong Brock RN RN mg2
[2018-02-07 22:07] LABS: Urine Blood NEGATIVE (NEG); Urine Glucose NEGATIVE (NEG); Urine Protein NEGATIVE (NEG)
[2018-02-08 00:44] VITALS: BP 159/96; TEMP 98; O2SAT 98
== END 2018-02-07 22:19 | disposition home or self-care (01) ==
LOC: ER 18:35
DX: A08.4 Viral intestinal infection, unspecified (principal); E78.00 Pure hypercholesterolemia, unspecified; E11.43 Type 2 diabetes mellitus with diabetic autonomic (poly)neuropathy; K31.84 Gastroparesis; K50.90 Crohn's disease, unspecified, without complications; I10 Essential (primary) hypertension; M19.90 Unspecified osteoarthritis, unspecified site; G89.29 Other chronic pain; Z79.84 Long term (current) use of oral hypoglycemic drugs; Z79.899 Other long term (current) drug therapy
CPT/HCPCS: 36415; 80048; 80076; 81003; 81025; 83690; 85025; 96361; 96374; 96375; 99284; J2405; J2550; J3010; J7030

== ENCOUNTER 2018-04-13 17:01 | Emergency (ER) | payer OTHER ==
--- OUTSIDE RECORDS SUMMARY | 2018-04-13 17:05 | XMS REPORT | Clinical Summary ---
:1970 Author Organization [facility] [employer] Address [address] [place] [address] Care Team Providers Name Role Phone Pavel Curran MD Primary Care Provider Allergies Active Allergy Reactions Severity Noted Date Comments Loratadine-Pseudoephedrine Other (See Comments) 08/28/2017 hyperactivity Prochlorperazine Other (See Comments) 08/28/2017 Seizures Meperidine Rash Low 08/28/2017 Quupdmvja-Wonnsg-Cefkffaq-Scop Itching, Rash Low 08/28/2017 Morphine Rash Low [...] (Primary Dx); 09/01/2017 Medicine MD Neurological symptoms; Elvaercesia, Left arm weakness; Jamilah Left arm numbness; MD Alisa Brachial plexopathy; 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 after 04/12/2017 Results RHYTHM STRIP - SCAN (09/02/2017 12:41 PM CDT) Narrative Performed At POC-Glucose meter (09/01/2017 4:51 PM CDT)Only the most recent of16 resultswithin the time period is included. POC-Glucose Meter 298 (H)Comment: TESTED AT 70 - 110 mg/dL [facility] [address] [place], [place] [id number] Specimen Blood Performing Organization Address [facility] [place] [address] [phone] [place] Lipid panel (09/01/2017 4:59 AM CDT) Triglycerides 279 mg/dL [facility] Cholesterol 119 mg/dL [facility] HDL 22 mg/dL [facility] LDL Calculated 41 mg/dL [facility] Specimen Blood Narrative Performed At [facility] Triglyceride Reference Range: Low Risk <150 [id number] High Risk 200-499 Very High Risk>=500 Cholesterol Reference Range: Low Risk <200 [id number] High Risk>240 HDL Cholesterol Reference Range: Low Risk >=60 High Risk <40 LDL Cholesterol Reference Range: Optimal<100 Near Tdalijo250-273 [id number] Cufq364-518 Very High >=190 Performing Organization Address [facility] [place] Number [address] [phone] [place] CTA carotid (08/30/2017 6:05 PM CDT) Narrative Performed At FINAL REPORT Remical[facility] CT angiogram of the upper chest, neck, [...] MD Report Verified Date/Time:08/30/2017 18:01:31 Reading Location: [facility] C013 Neuro Reading Room Procedure Note [...] Report Verified Date/Time: 08/30/2017 18:01:31 Reading Location: [facility] C013 Neuro Reading Room Performing Organization Address City/State/Zipcode Phone Number [facility] CTA brain (08/30/2017 6:05 PM CDT) Narrative Performed At FINAL REPORT [facility] CT angiogram of the upper chest, [...] MD Report Verified Date/Time:08/30/2017 18:01:31 Reading Location: [facility] B1 C013 Neuro Reading Room Procedure Note [...] Report Verified Date/Time: 08/30/2017 18:01:31 Reading Location: [address] Neuro Reading Room Performing Organization Address City/State/Zipcode Phone Number [facility] ECHOCARDIOGRAM REPORT - SCAN (08/30/2017 2:50 PM CDT) Narrative Performed At Basic Metabolic Panel (08/30/2017 9:00 AM CDT)Only the most recent of2 resultswithin the time period is included. Sodium 137 136 - 145 meq/L [facility] Potassium 4.1 3.5 - 5.1 meq/L [facility] Chloride 106 98 - 107 meq/L [facility] CO2 24 22 - 29 meq/L [facility] BUN 11 7 - 21 mg/dL [facility] Creatinine 0.81 0.57 - 1.25 mg/dL [facility] Glucose 264 (H) 70 - 105 mg/dL [facility] Calcium 9.1 8.4 - 10.2 mg/dL [facility] EGFR 75Comment: ESTIMATED GFR IS mL/min/1.73 sq m [facility] NOT ACCURATE [facility] CLEARANCE IN PREDICTING GLOMERULAR FILTRATION RATE. ESTIMATED GFR IS NOT APPLICABLE FOR DIALYSIS PATIENTS. Specimen Blood Performing Organization Address City/State/Zipcode Phone Number [facility] [address] [place] [address] CENTER CBC with platelet count + automated diff (08/30/2017 5:10 AM CDT)Only the most recent of2 resultswithin the time period is included. WBC 6.6 3.5 - 10.5 K/L [facility] RBC 4.40 3.93 - 5.22 M/L [facility] Hemoglobin 11.8 11.2 - 15.7 GM/DL [facility] Hematocrit 36.1 34.1 - 44.9 % [facility] MCV 82.0 79.4 - 94.8 fL [facility] MCH 26.8 25.6 - 32.2 pg [facility] MCHC 32.7 32.2 - 35.5 GM/DL [facility] RDW 13.2 11.7 - 14.4 % [facility] Platelets 231 150 - 450 K/CU MM [facility] MPV 10.9 9.4 - 12.3 fL [facility] nRBC 0 0 - 0 /100 WBC [facility] % Neutros 50 % [facility] % Lymphs 41 % [facility] % Monos 6 % [facility] % Eos 2 % [facility] % Baso 1 % [facility] # Neutros 3.34 1.56 - 6.13 K/L [facility] # Lymphs 2.67 1.18 - 3.74 K/L [facility] # Monos 0.40 (H) 0.24 - 0.36 K/L [facility] # Eos 0.15 0.04 - 0.36 K/L [facility] # Baso 0.03 0.01 - 0.08 K/L [facility] Immature Granulocytes-Relative 0 0 - 1 % [facility] Specimen Blood Performing Organization Address City/[facility]/Zipcode Phone Number [address] [address] [phone] [place] Troponin I (08/30/2017 5:10 AM CDT)Only the most recent of2 resultswithin the time period is included. Troponin I <0.01 0.00 - 0.03 ng/mL [facility] Specimen Blood Narrative Performed At [facility] Troponin I (TnI) levels must be interpreted [...] tachyarrhythmia. Performing Organization Address City/State/Zipcode Phone Number [address] [phone] [place] XR chest 1 view portable / bedside (08/30/2017 4:15 AM CDT) Narrative Performed At FINAL REPORT [facility] Comparison examination: None No pneumothorax, focal pulmonary consolidation, or significant pleural effusion. Normal cardiomediastinal contours. Normal skeleton and soft tissues. Impression: No acute abnormality. Signed: Ervin Jenkins MD Report Verified Date/Time:08/30/2017 04:23:04 Reading Location: [address] Reading Room Procedure Note Interface, External Ris In - 08/30/2017 4:25 AM CDT FINAL REPORT Comparison examination: None No pneumothorax, focal pulmonary consolidation, or significant pleural effusion. Normal cardiomediastinal contours. Normal skeleton and soft tissues. Impression: No acute abnormality. Signed: Ervin Jenkins MD Report Verified Date/Time: 08/30/2017 04:23:04 Reading Location: [address] Reading Room Performing Organization Address City/State/Zipcode Phone Number [facility] 2D Echo W/Doppler(CW/PW/Color) (08/29/2017 3:24 PM CDT) Ejection Fraction [facility] Narrative Performed At Transthoracic Echocardiography Report (TTE) [facility] Demographics Patient Name RHONA CORNEJO Date of Study 08/29/2017 ALESIA [id number] GenderFemale Visit Number [id number] Unknown [id number] Room Number [id number] Number Date of Birth1970Referring Physician Vipul Riley Age47 year(s)Electric Cell Tender AndreatIrosalie Manning Physician Procedure Type of Study [...] Study 08/29/2017 ALESIA Gender Female Visit Number [id number] Race Unknown Room Number 2261 Number Date of 1970 Referring Physician Vipul Riley Age 47 year(s) Electric Cell Tender Test Department Helper Cailin Hernandez Interpreting Bebeto Manning, Physician Procedure [...] City/State/Zipcode Phone Number [facility] CT brain without IV contrast (08/29/2017 1:41 PM CDT) Narrative Performed At FINAL REPORT Remicalm CT head without contrast. Comparisons: No Reason [...] MD Report Verified Date/Time:08/29/2017 14:52:09 Reading Location: [address] Neuro Reading Room Procedure Note Interface, [...] Report Verified Date/Time: 08/29/2017 14:52:09 Reading Location: [address] Neuro Reading Room Performing Organization Address City/State/Zipcode Phone Number [facility] PERIPHERAL VASCULAR REPORT - SCAN (08/29/2017 10:20 AM CDT) Narrative Performed At Carotid doppler bilateral (08/29/2017 8:57 AM CDT) Ejection Fraction [facility]ACS Impressions Performed At Right Impression [facility] 1. The internal, [...] At PV LAB - Carotid Duplex Study [facility] Demographics Patient Name Tone CORNEJO of Study 08/29/2017 ALESIA [id number] Age 47 Visit Number [id number] GenderFemale Accession Number [id number] Date of 1970 [facility] Number [id number] Physician SonographerMando Giordano MD, [...] Study 08/29/2017 ALESIA Age 47 Visit Number [id number] Gender Female Accession Number [id number] Date of 1970 Referring [facility] Room Number [id number] Physician Electric Cell Tender Mando Giordano MD, [place] Physician RPVI Procedure [...] are measured in cm Performing Organization Address City/[facility] Cent[facility] Phone Number [facility] TSH/Free T4 If Indicated (08/29/2017 4:55 AM CDT) TSH 1.55 0.35 - 4.94 uIU/mL [facility] Specimen Blood Performing Organization Address City/[facility] Cent[facility] Phone Number [address] [phone] CENTER Hemoglobin A1c (08/29/2017 4:55 AM CDT) Hemoglobin A1C 13.7 (H) 4.3 - 6.1 % [facility] Specimen Blood Performing Organization Address City/[facility]/Zipcode Phone Number [address] [address] [place] Vitamin B12 (08/29/2017 4:55 AM CDT) Vitamin B12 300 213 - 816 pg/mL [facility] Specimen Blood Performing Organization Address [facility] Centerconj Phone Number [address] [address] [phone] [place] Urinalysis w/Microscopic (08/28/2017 11:16 PM CDT) Color, UA Brown [facility] Clarity, UA Hazy [facility] Specific [place], UA 1.016 1.001 - 1.035 [facility] pH, UA 5.0 5.0 - 8.0 [facility] Protein, UA 30 mg/dL (A) Negative [facility] Glucose, UA 300 mg/dL (A) Negative [facility] Ketones, UA Negative Negative [facility] Bilirubin, UA Positive (A) Negative [facility] Blood, UA Negative Negative [facility] Nitrite, UA Positive (A) Negative [facility] Leukocytes, UA Small (A) Negative [facility] Urobilinogen, UA 3.0 (H) 0.2 - 1.0 mg/dL [facility] RBC, UA 2 /HPF [facility] WBC, UA 24 /HPF [facility] Bacteria, UA Many [facility] Mucus Rare [facility] Squam Epithel, UA 7 /HPF [facility] Hyaline Casts, UA 16 /LPF [facility] Casts 16 /LPF [facility] Yeast Occasional [facility] Specimen Source [facility] Specimen Urine Performing Organization Address City/State/Zipcode Phone Number [facility] [address] [place] [address] [phone] CENTER ECG 12 lead (08/28/2017 9:44 PM CDT) Narrative Performed At Ventricular Rate 69 BPM GE MUSE Atrial Rate 69 BPM P-R Interval 182 ms QRS Duration 88 ms Q-T Interval 410 ms QTC Calculation(Bazett) 439 ms P [place] 19 degrees R [place] 18 degrees T [place] 21 degrees Normal sinus rhythm Normal ECG No previous ECGs available Confirmed by MD GARCIA D. RICHARD ([id number]) on 08/29/2017 10:54:52 AM Procedure Note Interface, External Ris In - 08/29/2017 10:54 AM CDT Ventricular Rate 69 BPM Atrial Rate 69 BPM P-R Interval 182 ms QRS Duration 88 ms Q-T Interval 410 ms QTC Calculation(Bazett) 439 ms P [place] 19 degrees R [place] 18 degrees T [place] 21 degrees Normal sinus rhythm Normal ECG No previous ECGs available Confirmed by MD GARCIA D. RICHARD ([id number]) on 08/29/2017 10:54:52 AM Performing Organization Address City/State/Zipcode Phone Number DARRYL MUSE after 04/12/2017 Insurance Payer Benefit Plan / Subscriber ID Type Phone Address Group BLUE CROSS/BLUE BCBS PPO POS EPO xxxxxxxxxxxx PPO [phone] [address] [place] [address] (Leslie) [place] [address] Advance Directives For more information, please contact:[place] [phone] [place], [place] [phone] Code Status Date Activated Date Inactivated Comments Full Code 08/28/2017 9:21 PM 09/01/2017 8:22 PM This code status was determined by: Patient
--- OUTSIDE RECORDS SUMMARY | 2018-04-13 17:05 | XMS REPORT ---
:1970 Author Organization [facility] Address [address] [place] [address] Dr. Kumar [address] [place] [address] Care Team Providers Name Role Phone HARINI [...] (BEAKER) (test 298 mg/dL 70-110 TESTED AT [address] lipg=3323) [place] [id number] POCT-GLUCOSE [id number] 12:11:00 Test Item Value Reference Range Comments POC-GLUCOSE METER (BEAKER) 331 mg/dL 70-110 Notified NAT SOUZA/TESTED AT [facility] (test qukb=9304) [address] [place], [place] [id number] POCT-GLUCOSE [id number] 10:55:00 Test Item Value Reference Range Comments POC-GLUCOSE METER (BEAKER) 365 mg/dL 70-110 TESTED AT [address] (test rlej=0073) [place] [id number] POCT-GLUCOSE [id number] 08:44:00 Test Item Value Reference Range Comments POC-GLUCOSE METER (BEAKER) 291 mg/dL 70-110 TESTED AT [address] (test lnjh=5860) [place] [address] LIPID [id number] 05:56:00 Test Item Value Reference Range Comments TRIGLYCERIDES (BEAKER) (test yhnm=024) 279 mg/dL CHOLESTEROL (BEAKER) (test wjqq=020) 119 mg/dL HDL CHOLESTEROL (BEAKER) (test xihw=179) 22 mg/dL LDL CHOLESTEROL CALCULATED (BEAKER) (test 41 mg/dL ibil=131) Triglyceride Reference Range: Low Risk <150 Borderline 150- 199 High Risk 200-499 Very High Risk >=500Cholesterol Reference Range: Low Risk <200 Borderline 200-239 High Risk > 240HDL Cholesterol Reference Range: Low Risk >=60 High Risk <40LDL Cholesterol Reference Range: Optimal <100 Near Optimal 100-129 Borderline 130-159 High 160-189 Very High >=190POCT-GLUCOSE [id number] 21:50:00 Test Item Value Reference Range Comments POC-GLUCOSE METER (BEAKER) 318 mg/dL 70-110 TESTED AT [address] (test uavj=7433) [place] [id number] POCT-GLUCOSE [id number] 18:04:00 Test Item Value Reference Range Comments POC-GLUCOSE METER (BEAKER) 238 mg/dL 70-110 TESTED AT [address] (test jmyk=8132) [facility] [address] POCT-GLUCOSE [id number] 12:22:00 Test Item Value Reference Range Comments POC-GLUCOSE METER (BEAKER) 290 mg/dL 70-110 TESTED AT [address] (test tujl=5922) [facility] [address] POCT-GLUCOSE [id number] 09:20:00 Test Item Value Reference Range Comments POC-GLUCOSE METER (BEAKER) 293 mg/dL 70-110 TESTED AT [address] (test tzhs=3558) [place] [id number] POCT-GLUCOSE [id number] 21:00:00 Test Item Value Reference Range Comments POC-GLUCOSE METER (BEAKER) 225 mg/dL 70-110 TESTED AT [address] (test xvhb=6084) [facility] [address] [address], CAROTID, [id number] 18:01:00FINAL REPORT CT angiogram of the upper [...] [place] Verified Date/Time: 08/30/2017 18:01:31 Reading Location: [address] Neuro Reading Room [facility] [id number] 18:01:00FINAL REPORT CT angiogram of the upper [...] [place] Verified Date/Time: 08/30/2017 18:01:31 Reading Location: [facility] C013V Neuro Reading Room POCT-GLUCOSE [id number] 17:21: 00 Test Item Value Reference Range Comments POC-GLUCOSE METER (BEAKER) 256 mg/dL 70-110 TESTED AT [address] (test wyto=4883) [place] [address] POCT-GLUCOSE [id number] 12:00:00 Test Item Value Reference Range Comments POC-GLUCOSE METER (BEAKER) 289 mg/dL 70-110 TESTED AT [address] (test fuxp=6987) [place] [address] BASIC METABOLIC [id number] 10:12:00 Test Item Value Reference Range Comments SODIUM (BEAKER) (test 137 meq/L 136-145 tydp=664) POTASSIUM (BEAKER) (test 4.1 meq/L 3.5-5.1 najo=368) CHLORIDE (BEAKER) (test 106 meq/L 98-107 ztap=157) CO2 (BEAKER) (test 24 meq/L 22-29 kldz=025) BLOOD UREA NITROGEN 11 mg/dL 7-21 (BEAKER) (test qvup=303) CREATININE (BEAKER) (test 0.81 mg/dL 0.57-1.25 hivz=349) GLUCOSE RANDOM (BEAKER) 264 mg/dL 70-105 (test zicr=568) CALCIUM (BEAKER) (test 9.1 mg/dL 8.4-10.2 degb=728) EGFR (BEAKER) (test 75 mL/min/1.73 sq m ESTIMATED GFR IS NOT ysao=2911) ACCURATE CREATININE CLEARANCE IN PREDICTING GLOMERULAR FILTRATION RATE. ESTIMATED GFR IS NOT APPLICABLE FOR DIALYSIS PATIENTS. POCT-GLUCOSE [id number] 08:42:00 Test Item Value Reference Range Comments POC-GLUCOSE METER (BEAKER) 259 mg/dL 70-110 TESTED AT [address] (test puff=6672) [place] [id number] TROPONIN [id number] 06:14:00 Test Item Value Reference Range Comments TROPONIN I (BEAKER) (test nmgq=128) < ng/mL 0.00-0.03 Troponin I (TnI) levels [...] and persistent tachyarrhythmia.CBC W/PLT COUNT & AUTO [id number] 06:09:00 Test Item Value Reference Range Comments WHITE BLOOD CELL COUNT (BEAKER) (test hkrr=852) 6.6 K/ L 3.5-10.5 RED BLOOD CELL COUNT (BEAKER) (test somg=255) 4.40 M/ L 3.93-5.22 HEMOGLOBIN (BEAKER) (test irnh=256) 11.8 GM/DL 11.2-15.7 HEMATOCRIT (BEAKER) (test abws=745) 36.1 % 34.1-44.9 MEAN CORPUSCULAR VOLUME (BEAKER) (test bljt=344) 82.0 fL 79.4-94.8 MEAN CORPUSCULAR HEMOGLOBIN (BEAKER) (test 26.8 pg 25.6-32.2 abye=191) MEAN CORPUSCULAR HEMOGLOBIN CONC (BEAKER) (test 32.7 GM/DL 32.2-35.5 uhzj=588) RED CELL DISTRIBUTION WIDTH (BEAKER) (test 13.2 % 11.7-14.4 hdgt=269) PLATELET COUNT (BEAKER) (test egzs=198) 231 K/CU MM 150-450 MEAN PLATELET VOLUME (BEAKER) (test sskk=894) 10.9 fL 9.4-12.3 NUCLEATED RED BLOOD CELLS (BEAKER) (test 0 /100 WBC 0-0 fioa=971) NEUTROPHILS RELATIVE PERCENT (BEAKER) (test 50 % dckg=291) LYMPHOCYTES RELATIVE PERCENT (BEAKER) (test 41 % uinq=000) MONOCYTES RELATIVE PERCENT (BEAKER) (test 6 % euxa=701) EOSINOPHILS RELATIVE PERCENT (BEAKER) (test 2 % cztd=169) BASOPHILS RELATIVE PERCENT (BEAKER) (test 1 % xwkx=057) NEUTROPHILS ABSOLUTE COUNT (BEAKER) (test 3.34 K/ L 1.56-6.13 qbbf=720) LYMPHOCYTES ABSOLUTE COUNT (BEAKER) (test 2.67 K/ L 1.18-3.74 rcpc=518) MONOCYTES ABSOLUTE COUNT (BEAKER) (test 0.40 K/ L 0.24-0.36 lece=180) EOSINOPHILS ABSOLUTE COUNT (BEAKER) (test 0.15 K/ L 0.04-0.36 ztkd=827) BASOPHILS ABSOLUTE COUNT (BEAKER) (test 0.03 K/ L 0.01-0.08 nyot=493) IMMATURE GRANULOCYTES-RELATIVE PERCENT (BEAKER) 0 % 0-1 (test zncl=0849) RAD, CHEST, 1 VIEW, NON [id number] 04:23:00Reason for exam:->chest painShould this be performed at the bedside?->YesFINAL REPORT Comparison examination: None No pneumothorax, focal pulmonary consolidation, or significant pleural effusion. Normal cardiomediastinal contours. Normal skeleton and soft tissues. Impression: No acute abnormality. Signed: Ervin Jenkins Verified Date/Time: 08/30/2017 04:23 :04 Reading Location: [address] Reading Room POCT-GLUCOSE [id number] 21:18:00 Test Item Value Reference Range Comments POC-GLUCOSE METER (BEAKER) 151 mg/dL 70-110 TESTED AT [address] (test isxv=4342) [facility] [address] POCT-GLUCOSE [id number] 17:59:00 Test Item Value Reference Range Comments POC-GLUCOSE METER (BEAKER) 146 mg/dL 70-110 TESTED AT [facility] [address] [facility] (test iree=9144) [facility] [address] HEMOGLOBIN [id number] 15:56:00 Test Item Value Reference Range Comments HEMOGLOBIN A1C (BEAKER) (test qfud=635) 13.7 % 4.3-6.1 CT, BRAIN, WITHOUT [id number] 14:52:00FINAL REPORT CT head without contrast. Comparisons: [...] [place] Verified Date/Time: 08/29/2017 14:52:09 Reading Location: [address] Neuro Reading Room POCT-GLUCOSE [id number] 14:17:00 Test Item Value Reference Range Comments POC-GLUCOSE METER (BEAKER) 423 mg/dL 70-110 Notified NAT SOUZA/TESTED AT [facility] (test kwyk=8637) [address] [facility] [address] VITAMIN [id number] 06:48:00 Test Item Value Reference Range Comments VITAMIN B12 (BEAKER) (test lbnr=414) 300 pg/mL 213-816 TSH/FREE T4 IF [id number] 06:48:00 Test Item Value Reference Range Comments THYROID STIMULATING HORMONE (BEAKER) (test 1.55 uIU/mL 0.35-4.94 fboq=883) CBC W/PLT COUNT & AUTO [id number] 05:10:00 Test Item Value Reference Range Comments WHITE BLOOD CELL COUNT (BEAKER) (test hzhf=300) 8.6 K/ L 3.5-10.5 RED BLOOD CELL COUNT (BEAKER) (test gfbw=312) 4.62 M/ L 3.93-5.22 HEMOGLOBIN (BEAKER) (test msvf=903) 12.2 GM/DL 11.2-15.7 HEMATOCRIT (BEAKER) (test zzvq=738) 42.2 % 34.1-44.9 MEAN CORPUSCULAR VOLUME (BEAKER) (test mvve=063) 91.3 fL 79.4-94.8 MEAN CORPUSCULAR HEMOGLOBIN (BEAKER) (test 26.4 pg 25.6-32.2 mquq=947) MEAN CORPUSCULAR HEMOGLOBIN CONC (BEAKER) (test 28.9 GM/DL 32.2-35.5 tvhu=128) RED CELL DISTRIBUTION WIDTH (BEAKER) (test 13.2 % 11.7-14.4 xwes=951) PLATELET COUNT (BEAKER) (test mvow=166) 80 K/CU MM 150-450 MEAN PLATELET VOLUME (BEAKER) (test hztv=988) 10.9 fL 9.4-12.3 NUCLEATED RED BLOOD CELLS (BEAKER) (test 0 /100 WBC 0-0 esfs=866) NEUTROPHILS RELATIVE PERCENT (BEAKER) (test 45 % vwbm=692) LYMPHOCYTES RELATIVE PERCENT (BEAKER) (test 46 % xbhk=755) MONOCYTES RELATIVE PERCENT (BEAKER) (test 6 % mrio=432) EOSINOPHILS RELATIVE PERCENT (BEAKER) (test 2 % zuva=623) BASOPHILS RELATIVE PERCENT (BEAKER) (test 1 % ficg=040) NEUTROPHILS ABSOLUTE COUNT (BEAKER) (test 3.91 K/ L 1.56-6.13 kywz=226) LYMPHOCYTES ABSOLUTE COUNT (BEAKER) (test 3.95 K/ L 1.18-3.74 fhpk=216) MONOCYTES ABSOLUTE COUNT (BEAKER) (test fyji=390) 0.54 K/ L 0.24-0.36 EOSINOPHILS ABSOLUTE COUNT (BEAKER) (test 0.13 K/ L 0.04-0.36 conf=276) BASOPHILS ABSOLUTE COUNT (BEAKER) (test sgcq=779) 0.07 K/ L 0.01-0.08 IMMATURE GRANULOCYTES-RELATIVE PERCENT (BEAKER) 0 % 0-1 (test yerf=9439) URINALYSIS W/ [id number] 23:32:00 Test Item Value Reference Range Comments COLOR (BEAKER) (test xwgb=875) Brown CLARITY (BEAKER) (test ycrh=587) Hazy SPECIFIC GRAVITY UA (BEAKER) (test odxn=750) 1.016 1.001-1.035 PH UA (BEAKER) (test kijw=752) 5.0 5.0-8.0 PROTEIN UA (BEAKER) (test qcxk=398) 30 mg/dL Negative GLUCOSE UA (BEAKER) (test eqqz=144) 300 mg/dL Negative KETONES UA (BEAKER) (test bxph=588) Negative Negative BILIRUBIN UA (BEAKER) (test oaod=096) Positive Negative BLOOD UA (BEAKER) (test mnrk=254) Negative Negative NITRITE UA (BEAKER) (test sija=915) Positive Negative LEUKOCYTE ESTERASE UA (BEAKER) (test fnxd=532) Small Negative UROBILINOGEN UA (BEAKER) (test zjbq=708) 3.0 mg/dL 0.2-1.0 RBC UA (BEAKER) (test esfq=589) 2 /HPF WBC UA (BEAKER) (test rwoo=124) 24 /HPF BACTERIA (BEAKER) (test zaad=634) Many MUCUS (BEAKER) (test fvkp=6346) Rare SQUAMOUS EPITHELIAL (BEAKER) (test rxaf=898) 7 /HPF HYALINE CASTS (BEAKER) (test ojyn=586) 16 /LPF CASTS (BEAKER) (test lcri=2973) 16 /LPF YEAST (BEAKER) (test fcod=4920) Occasional SOURCE(BEAKER) (test xbll=8188) TROPONIN [id number] 23:12:00 Test Item Value Reference Range Comments TROPONIN I (BEAKER) (test dpiy=983) < ng/mL 0.00-0.03 Troponin I (TnI) levels [...] acute neurological disease, and persistent tachyarrhythmia.BASIC METABOLIC [id number] 23:05:00 Test Item Value Reference Range Comments SODIUM (BEAKER) (test 128 meq/L 136-145 jgwj=908) POTASSIUM (BEAKER) (test 4.9 meq/L 3.5-5.1 Specimen moderately diwk=943) hemolyzed CHLORIDE (BEAKER) (test 100 meq/L 98-107 hivk=755) CO2 (BEAKER) (test 13 meq/L 22-29 nlcb=515) BLOOD UREA NITROGEN 29 mg/dL 7-21 (BEAKER) (test iktt=293) CREATININE (BEAKER) (test 1.55 mg/dL 0.57-1.25 Specimen moderately kznq=702) hemolyzed GLUCOSE RANDOM (BEAKER) 326 mg/dL 70-105 (test uish=015) CALCIUM (BEAKER) (test 9.6 mg/dL 8.4-10.2 ojli=948) EGFR (BEAKER) (test 36 mL/min/1.73 sq m ESTIMATED GFR IS NOT usld=7874) ACCURATE CREATININE CLEARANCE IN PREDICTING GLOMERULAR FILTRATION RATE. ESTIMATED GFR IS NOT APPLICABLE FOR DIALYSIS PATIENTS. POCT-GLUCOSE [id number] 20:49:00 Test Item Value Reference Range Comments POC-GLUCOSE METER (BEAKER) 376 mg/dL 70-110 Notified NAT SOZUA/TESTED AT [facility] (test bctd=2979) [address] [place] [address]
[2018-04-13] MEDS ORDERED: NA CHLORIDE 0.9% 1,000 ML ONE (18:13)
[2018-04-13] MEDS ORDERED: ONDANSETRON 4 MG/2 ML VIAL ONE ×2 (18:13→19:12)
[2018-04-13] MEDS ORDERED: FENTANYL CITR 100 MCG/2 ML ONE (18:13)
[2018-04-13 18:24] LABS: Urine Blood NEGATIVE (NEG); Urine Glucose 2+ (NEG); Urine Protein NEGATIVE (NEG)
[2018-04-13 18:31] LABS: Absolute Monocytes 0.5 K/uL (0.1-1.3); Absolute Neutrophil 4.6 K/uL (1.8-8.0); Basophils % 0.6 % (0-1.3); Eosinophils % 0.8 % (0-4.4); Hematocrit 43.5 % (36.0-45.0); Lymphocytes % 36.3 % (15.3-44.8); MPV 8.7 fL (7.6-11.3); Monocytes % 6.3 % (3.3-12.3); RBC Red Blood Cell Count 5.54 M/uL (3.86-4.86)
[2018-04-13 18:55] LABS: ALT/SGPT 27 U/L (12-78); AST/SGOT 13 U/L (15-37); Albumin 3.5 g/dL (3.4-5.0); Alkaline Phosphatase 113 U/L (45-117); BUN Blood Urea Nitrogen 8 mg/dL (7-18); Bicarbonate 26 mmol/L (21-32); Bilirubin Direct < 0.1 mg/dL (0-0.2); Bilirubin Total 0.2 mg/dL (0.2-1.0); Glucose Level 319 mg/dL (74-106); Lipase 240 U/L (73-393); Potassium 3.5 mmol/L (3.5-5.1); Protein, Total 7.6 g/dL (6.4-8.2); Sodium Level 139 mmol/L (136-145)
[2018-04-13] MEDS ORDERED: metroNIDAZOLE 500 MG TABLET ONE (19:21)
[2018-04-13] MEDS ORDERED: CIPROFLOXACIN HCL 500 MG TAB ONE (19:21)
--- NOTE | 2018-04-13 20:01 | ER ---
Nurse's Notes [facility] Name: Elly Clarke Age: 48 yrs Sex: Female : 1970 Arrival Date: 04/13/2018 Time: 17:03 Bed 30 Private MD: Pavel Curran T Diagnosis: Crohn's disease [regional enteritis];Abdominal and pelvic pain Presentation: 04/13 17:24 Presenting complaint: Patient states: N/V/D for 3 days with "stabbing pain" to abdomen. aj Transition of care: patient was not received from another setting of care. Onset of symptoms was April 10, 2018. Risk Assessment: Do you want to hurt yourself or someone else? Patient reports no desire to harm self or others. Initial Sepsis Screen: Does the patient meet any 2 criteria? No. Patient's initial sepsis screen is negative. Does the patient have a suspected source of infection? No. Patient's initial sepsis screen is negative. Care prior to arrival: None. 17:24 Method Of Arrival: Ambulatory aj 17:24 Acuity: HANNAH 3 aj Triage Assessment: 17:29 General: Appears in no apparent distress. comfortable, Behavior is calm, cooperative, aj appropriate for age. Pain: Complains of pain in abdomen. Neuro: Level of Consciousness is awake, alert, obeys commands, Oriented to person, place, time, situation, Appropriate for age. Respiratory: Airway is patent Respiratory effort is even, unlabored, Respiratory pattern is regular, symmetrical. GI: Reports lower abdominal pain, upper abdominal pain, diarrhea, nausea, vomiting. Derm: Skin is intact, is healthy with good turgor, Skin is pink, warm \\T\\ dry. normal. DICTAPHONE TYPIST: 20:18 LMP N/A - Hysterectomy tl3 Historical: - Allergies: 17:29 Claritin (insomnia); aj 17:29 Compazine (Seizures); aj 17:29 Demerol (HEART RACING); aj 17:29 (Hives); aj 17:29 Morphine (RACING HEART); aj 17:29 mushrooms; aj - Home Meds: 17:29 Abilify Oral [Active]; Celexa Oral [Active]; Klonopin 0.5 mg Oral tab 1 tab 2 times per aj day [Active]; gabapentin Oral [Active]; Metformin Oral [Active]; tizanidine Oral BID [Active]; - PMHx: 17:29 Arthritis; Chrohns; Chronic pain; Diabetes - NIDDM; Dramatic migraine events; aj Gastroparesis; High Cholesterol; Hypertension; Migraines; Pancreatitis; spinal stenosis; - PSHx: 17:29 Hysterectomy; Knee surgery; Tonsillectomy; Cholecystectomy; aj - Immunization history:: Adult Immunizations up to date. - Social history:: Smoking status: Patient/guardian denies using tobacco. - Ebola Screening: : Patient negative for fever greater than or equal to 101.5 degrees Fahrenheit, and additional compatible Ebola Virus Disease symptoms Patient denies exposure to infectious person Patient denies travel to an Ebola-affected area in the 21 days before illness onset No symptoms or risks identified at this time. Screenin:45 Abuse screen: Denies threats or abuse. Nutritional screening: No deficits noted. tl3 Tuberculosis screening: No symptoms or risk factors identified. Fall Risk None identified. Assessment: 18:45 General: Appears distressed, uncomfortable, well groomed, well developed, well tl3 nourished, Behavior is calm, cooperative, appropriate for age. Pain: Complains of pain in abdomen diffusely and abdomen Pain currently is 10 out of 10 on a pain scale. Neuro: Level of Consciousness is awake, alert, Oriented to person, place, time, situation, Appropriate for age. Cardiovascular: Patient's skin is warm and dry. Respiratory: Airway is patent Respiratory effort is even, unlabored, Respiratory pattern is regular, symmetrical. GI: Bowel sounds present X 4 quads. Abdomen is tender to palpation X 4 quads. : Urine is clear. EENT: No signs and/or symptoms were reported regarding the EENT system. Derm: No signs and/or symptoms reported regarding the dermatologic system. 19:27 Reassessment: No changes from previously documented assessment. Patient and/or family tl3 updated on plan of care and expected duration. Pain level reassessed. Patient is alert, oriented x 3, equal unlabored respirations, skin warm/dry/pink. pt reports pain returning. 20:16 Reassessment: Patient appears in no apparent distress at this time. No changes from tl3 previously documented assessment. Patient and/or family updated on plan of care and expected duration. Pain level reassessed. Patient is alert, oriented x 3, equal unlabored respirations, skin warm/dry/pink. Vital Signs: 17:29 BP 172 / 101; Pulse 110; Resp 20; Temp 99.1; Pulse Ox 97% on R/A; Weight 96.16 kg; aj Height 5 ft. 7 in. (170.18 cm); 19:14 BP 152 / 102; Pulse 90; Resp 18; Pulse Ox 95% on R/A; mg2 19:27 BP 172 / 117; Pulse 88; Resp 18; Pulse Ox 97% on R/A; tl3 20:16 BP 184 / 127; Pulse 89; Resp 18; Pulse Ox 100% on R/A; tl3 17:29 Body Mass Index 33.20 (96.16 kg, 170.18 cm) aj ED Course: 17:03 Patient arrived in ED. sb2 17:03 Pavel Curran MD is Private Physician. sb2 17:24 Deanna Ramachandran, RN is Primary Nurse. aj 17:24 Lj Love PA is PHCP. jr8 17:24 Norman Pollack MD is Attending Physician. jr8 17:25 Triage completed. aj 17:29 Arm band placed on left wrist. Patient placed in an exam room, on a stretcher. aj 17:59 Che Romero, NAT is Primary Nurse. tl3 18:45 Patient has correct armband on for positive identification. Bed in low position. Call tl3 light in reach. Side rails up X 1. Pulse ox on. NIBP on. 18:45 No provider procedures requiring assistance completed. Initial lab(s) drawn, by wv, tl3 sent to lab. Inserted saline lock: 24 gauge in left wrist, using aseptic technique. Blood collected. 20:16 IV discontinued, intact, bleeding controlled, No redness/swelling at site. Pressure tl3 dressing applied. 20:22 Basic Metabolic Panel Sent. tl3 20:22 CBC with Diff Sent. tl3 20:22 Creatinine for Radiology Sent. tl3 20:22 Hepatic Function Sent. tl3 20:22 Lipase Sent. tl3 20:22 Urine --Ancillary (enter results) Sent. tl3 20:22 Urine Dipstick--Ancillary (enter results) Sent. tl3 Administered Medications: 18:32 Drug: fentaNYL (PF) 50 mcg Route: IVP; Infused Over: 2 mins; Site: left wrist; tl3 19:28 Follow up: Response: No adverse reaction; Pain is decreased tl3 18:33 Drug: NS 0.9% 1000 ml Route: IV; Rate: 1000 ml; Site: left wrist; Delivery: Primary tl3 tubing; 20:22 Follow up: IV Status: Completed infusion; IV Intake: 500ml tl3 18:33 Drug: Zofran 4 mg Route: IVP; Infused Over: 2 mins; Site: left wrist; tl3 19:29 Follow up: Response: No adverse reaction tl3 19:03 Not Given (Duplicate Order): Zofran 4 mg IVP once; over 2 minutes mg2 19:04 Drug: Zofran 4 mg Route: IVP; Site: left wrist; mg2 19:28 Follow up: Response: No adverse reaction tl3 19:13 Drug: Cipro 500 mg Route: PO; mg2 19:28 Follow up: Response: No adverse reaction tl3 19:13 Drug: Flagyl 500 mg Route: PO; mg2 19:28 Follow up: Response: No adverse reaction tl3 20:00 Drug: fentaNYL (PF) 50 mcg Route: IVP; Infused Over: 2 mins; Site: left wrist; tl3 20:21 Follow up: Response: Medication administered at discharge. tl3 Intake: 20:22 IV: 500ml; Total: 500ml. tl3 Outcome: 19:58 Discharge ordered by . jr8 20:16 Discharged to home with family. tl3 20:16 Condition: stable 20:16 Discharge instructions given to patient, Instructed on discharge instructions, follow up and referral plans. Demonstrated understanding of instructions, follow-up care, Prescriptions given X 2. 20:21 Patient left the ED. tl3 Signatures: Deanna Ramachandran RN RN Lj Bourgeois PA PA jr8 Frida Aranda sb2 Che Romero RN RN tl3 Kong Brock RN RN mg2 Corrections: (The following items were deleted from the chart) 19:16 19:14 Pulse 90bpm; Resp 18bpm; Pulse Ox 95% RA; mg2 mg2 20:19 20:18 LMP 2018 tl3 tl3
--- NOTE | 2018-04-13 20:02 | EDPHYS ---
Physician Documentation [facility] Name: Elly Clarke Age: 48 yrs Sex: Female : 1970 Arrival Date: 04/13/2018 Time: 17:03 Bed 30 Private MD: Pavel Curran T ED Physician Norman Pollack HPI: 04/13 17:37 This 48 yrs old Female presents to ER via Ambulatory with complaints of jr8 Abdominal Pain - crohn's. 17:37 The patient presents with abdominal pain that is diffuse. Onset: The symptoms/episode jr8 began/occurred gradually, 3 day(s) ago. The symptoms do not radiate. Associated signs and symptoms: Pertinent positives: nausea, vomiting, and diarrhea. The symptoms are described as crampy. Modifying factors: The symptoms are alleviated by nothing, the symptoms are aggravated by nothing. Severity of pain: At its worst the pain was moderate in the emergency department the pain is unchanged. The patient has experienced similar episodes in the past, a few times. The patient has not recently seen a physician. history of Crohn's disease. Feels that she is having another flare up. Currently switching GI doctors to one in outing. 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 N/A - Hysterectomy tl3 Historical: - Allergies: 17:29 Claritin (insomnia); aj 17:29 Compazine (Seizures); aj 17:29 Demerol (HEART RACING); aj 17:29 (Hives); aj 17:29 Morphine (RACING HEART); aj 17:29 mushrooms; aj - Home Meds: 17:29 Abilify Oral [Active]; Celexa Oral [Active]; Klonopin 0.5 mg Oral tab 1 tab 2 times per aj day [Active]; gabapentin Oral [Active]; Metformin Oral [Active]; tizanidine Oral BID [Active]; - PMHx: 17:29 Arthritis; Chrohns; Chronic pain; Diabetes - NIDDM; Dramatic migraine events; aj Gastroparesis; High Cholesterol; Hypertension; Migraines; Pancreatitis; spinal stenosis; - PSHx: 17:29 Hysterectomy; Knee surgery; Tonsillectomy; Cholecystectomy; aj - Immunization history:: Adult Immunizations up to date. - Social history:: Smoking status: Patient/guardian denies using tobacco. - Ebola Screening: : Patient negative for fever greater than or equal to 101.5 degrees Fahrenheit, and additional compatible Ebola Virus Disease symptoms Patient denies exposure to infectious person Patient denies travel to an Ebola-affected area in the 21 days before illness onset No symptoms or risks identified at this time. ROS: 17:37 Eyes: Negative for injury, pain, redness, and discharge, ENT: Negative for injury, jr8 pain, and discharge, Neck: Negative for injury, pain, and swelling, Cardiovascular: Negative for chest pain, palpitations, and edema, Respiratory: Negative for shortness of breath, cough, wheezing, and pleuritic chest pain, Back: Negative for injury and pain, MS/Extremity: Negative for injury and deformity, Skin: Negative for injury, rash, and discoloration, Neuro: Negative for headache, weakness, numbness, tingling, and seizure. 17:37 Abdomen/GI: Positive for abdominal pain, nausea, vomiting, and diarrhea, Negative for abdominal distension, anorexia, dysphagia, hematemesis, black/tarry stool, rectal pain, rectal bleeding, bowel incontinence, flatulence. Exam: 17:37 Eyes: Pupils equal round and reactive to light, extra-ocular motions intact. Lids and jr8 lashes normal. Conjunctiva and sclera are non-icteric and not injected. Cornea within normal limits. Periorbital areas with no swelling, redness, or edema. ENT: Nares patent. No nasal discharge, no septal abnormalities noted. Tympanic membranes are normal and external auditory canals are clear. Oropharynx with no redness, swelling, or masses, exudates, or evidence of obstruction, uvula midline. Mucous membranes moist. Neck: Trachea midline, no thyromegaly or masses palpated, and no cervical lymphadenopathy. Supple, full range of motion without nuchal rigidity, or vertebral point tenderness. No Meningismus. Cardiovascular: Regular rate and rhythm with a normal S1 and S2. No gallops, murmurs, or rubs. Normal PMI, no JVD. No pulse deficits. Respiratory: Lungs have equal breath sounds bilaterally, clear to auscultation and percussion. No rales, rhonchi or wheezes noted. No increased work of breathing, no retractions or nasal flaring. Back: No spinal tenderness. No costovertebral tenderness. Full range of motion. Skin: Warm, dry with normal turgor. Normal color with no rashes, no lesions, and no evidence of cellulitis. MS/ Extremity: Pulses equal, no cyanosis. Neurovascular intact. Full, normal range of motion. Neuro: Awake and alert, GCS 15, oriented to person, place, time, and situation. Cranial nerves II-XII grossly intact. Motor strength 5/5 in all extremities. Sensory grossly intact. Cerebellar exam normal. Normal gait. 17:37 Abdomen/GI: Inspection: obese Bowel sounds: active, all quadrants, Palpation: soft, in all quadrants, mild abdominal tenderness, in the abdomen diffusely, mass, is not appreciated, rebound tenderness, is not appreciated, voluntary guarding, is not appreciated, involuntary guarding, is not appreciated, no appreciated organomegaly, Indicators: McBurney's point is not tender, Turcios's sign is negative, Rovsing's sign is negative, Liver: tenderness, is not appreciated. Vital Signs: 17:29 BP 172 / 101; Pulse 110; Resp 20; Temp 99.1; Pulse Ox 97% on R/A; Weight 96.16 kg; aj Height 5 ft. 7 in. (170.18 cm); 19:14 BP 152 / 102; Pulse 90; Resp 18; Pulse Ox 95% on R/A; mg2 19:27 BP 172 / 117; Pulse 88; Resp 18; Pulse Ox 97% on R/A; tl3 20:16 BP 184 / 127; Pulse 89; Resp 18; Pulse Ox 100% on R/A; tl3 17:29 Body Mass Index 33.20 (96.16 kg, 170.18 cm) aj MDM: 17:25 Patient medically screened. [facility] 19:57 Data reviewed: vital signs, nurses notes, lab test result(s), and as a result, I will [facility] discharge patient. Data interpreted: Pulse oximetry: on room air is 97 %. Interpretation: normal. 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 Response to treatment: the patient's symptoms have markedly improved after treatment. 04/13 17:35 Order name: Basic Metabolic Panel [facility] 04/13 17:35 Order name: CBC with Diff 04/13 17:35 Order name: Creatinine for Radiology 04/13 17:35 Order name: Hepatic Function 04/13 17:35 Order name: Lipase [facility] 04/13 18:12 Order name: Urine Dipstick--Ancillary (enter results) ms 04/13 18:12 Order name: Urine --Ancillary (enter results) ms 04/13 18:25 Order name: Urine --Ancillary; Complete Time: 18:28 EDMS 04/13 18:25 Order name: Urine Dipstick-Ancillary; Complete Time: 18:28 EDMS 04/13 18:34 Order name: CBC with Automated Diff; Complete Time: 18:34 EDMS 04/13 18:55 Order name: Creatinine (Radiology Only); Complete Time: 19:00 EDMS 04/13 18:56 Order name: Basic Metabolic Panel; Complete Time: 19:00 EDMS 04/13 18:56 Order name: Liver (Hepatic) Function; Complete Time: 19:00 EDMS 04/13 18:56 Order name: Lipase; Complete Time: 19:00 EDMS 04/13 17:35 Order name: IV Saline Lock; Complete Time: 18:33 [facility] 04/13 17:35 Order name: Labs collected and sent; Complete Time: 18:33 [facility] Administered Medications: 18:32 Drug: fentaNYL (PF) 50 mcg Route: IVP; Infused Over: 2 mins; Site: left wrist; tl3 19:28 Follow up: Response: No adverse reaction; Pain is decreased tl3 18:33 Drug: NS 0.9% 1000 ml Route: IV; Rate: 1000 ml; Site: left wrist; Delivery: Primary tl3 tubing; 20:22 Follow up: IV Status: Completed infusion; IV Intake: 500ml tl3 18:33 Drug: Zofran 4 mg Route: IVP; Infused Over: 2 mins; Site: left wrist; tl3 19:29 Follow up: Response: No adverse reaction tl3 19:03 Not Given (Duplicate Order): Zofran 4 mg IVP once; over 2 minutes mg2 19:04 Drug: Zofran 4 mg Route: IVP; Site: left wrist; mg2 19:28 Follow up: Response: No adverse reaction tl3 19:13 Drug: Cipro 500 mg Route: PO; mg2 19:28 Follow up: Response: No adverse reaction tl3 19:13 Drug: Flagyl 500 mg Route: PO; mg2 19:28 Follow up: Response: No adverse reaction tl3 20:00 Drug: fentaNYL (PF) 50 mcg Route: IVP; Infused Over: 2 mins; Site: left wrist; tl3 20:21 Follow up: Response: Medication administered at discharge. tl3 Disposition: 04/13/18 19:58 Discharged to Home. Impression: Crohn's disease [regional enteritis], Abdominal and pelvic pain. - Condition is Stable. - Discharge Instructions: Abdominal Pain, Adult. - Prescriptions for Cipro 500 mg Oral Tablet - take 1 tablet by ORAL route every 12 hours for 10 days; 20 tablet. Flagyl 500 mg Oral Tablet - take 1 tablet by ORAL route every 6 hours for 10 days; 40 tablet. Zofran 4 mg Oral Tablet - take 1 tablet by ORAL route every 12 hours As needed; 20 tablet. - Medication Reconciliation Form, Thank You Letter, Antibiotic Education, Prescription Opioid Use form. - Follow up: Private Physician; When: 5 - 6 days; Reason: Recheck today's complaints, Continuance of care, Re-evaluation by your physician. - Problem is new. - Symptoms have improved. Addendum: 04/16/2018 01:35 Co-signature as Attending Physician, Norman Pollack MD. g s Signatures: Dispatcher [employer] EDMS Deanna Ramachandran RN Lj Potter PA PA jr8 Norman Pollack MD MD Che Romero RN RN tl3 Kong Brock RN RN mg2 Corrections: (The following items were deleted from the chart) 04/13 20:21 19:58 04/13/2018 19:58 Discharged to Home. Impression: Crohn's disease [regional tl3 enteritis]; Abdominal and pelvic pain. Condition is Stable. Forms are Medication Reconciliation Form, Thank You Letter, Antibiotic Education, Prescription Opioid Use. Follow up: Private Physician; When: 5 - 6 days; Reason: Recheck today's complaints, Continuance of care, Re-evaluation by your physician. Problem is new. Symptoms have improved. jr8
[2018-04-13 21:06] VITALS: BP 184/127; O2SAT 100
[2018-04-13 21:17] VITALS: TEMP 99.5
== END 2018-04-13 20:21 | disposition home or self-care (01) ==
LOC: ER 17:01
DX: K50.90 Crohn's disease, unspecified, without complications (principal); R10.2 Pelvic and perineal pain; E78.00 Pure hypercholesterolemia, unspecified; I10 Essential (primary) hypertension; E11.43 Type 2 diabetes mellitus with diabetic autonomic (poly)neuropathy; K31.84 Gastroparesis; M19.90 Unspecified osteoarthritis, unspecified site; G89.29 Other chronic pain; Z79.84 Long term (current) use of oral hypoglycemic drugs; Z79.899 Other long term (current) drug therapy
CPT/HCPCS: 36415; 80048; 80076; 81003; 81025; 83690; 85025; 96361; 96374; 96375; 99284; J2405; J3010; J7030

== ENCOUNTER 2018-08-15 09:11 | Emergency (ER) | payer OTHER ==
--- OUTSIDE RECORDS SUMMARY | 2018-08-15 09:14 | XMS REPORT | Clinical Summary ---
:1970 Author Organization [facility] Address [address] [place] [address] Care Team Providers Name Role Phone Pavel Curran MD Primary Care Provider Allergies Active Allergy Reactions Severity Noted Date Comments Loratadine-Pseudoephedrine Other (See Comments) 08/28/2017 hyperactivity Prochlorperazine Other (See Comments) 08/28/2017 Seizures Meperidine Rash Low 08/28/2017 Bbisunzml-Umoxsg-Neroolcc-Scop Itching, Rash Low 08/28/2017 Morphine Rash Low [...] to diabetes mellitus (HCC); Neuropathic pain after 08/14/2017 Social History Tobacco Use Types Packs/Day Years [...] procedure are in the results section. after 08/14/2017 Results RHYTHM STRIP - SCAN (09/02/2017 12:41 PM CDT) Narrative Performed At POC-Glucose meter (09/01/2017 4:51 PM CDT)Only the most recent of16 resultswithin the time period is included. POC-Glucose Meter 298 (H)Comment: TESTED AT 70 - 110 mg/dL [facility] [address] [place], [place] [id number] Specimen Blood Performing Organization Address [facility] Phone Number [address] [phone] [place] Lipid panel (09/01/2017 4:59 AM CDT) Triglycerides 279 mg/dL [facility] Cholesterol 119 mg/dL [facility] HDL 22 mg/dL [facility] LDL Calculated 41 mg/dL [facility] Specimen Blood Narrative Performed At [facility] Triglyceride Reference Range: Low Risk <150 [id number] High Risk 200-499 Very High Risk>=500 Cholesterol Reference Range: Low Risk <200 Uwiqwvbdbs115-059 High Risk>240 HDL Cholesterol Reference Range: Low Risk >=60 High Risk <40 LDL Cholesterol Reference Range: Optimal<100 Near Hohgjok635-254 Orycglabpg653-871 [id number] Very High >=190 Performing Organization Address [facility] Phone Number [address] [phone] [place] CTA carotid (08/30/2017 6:05 PM CDT) Specimen Narrative Performed At FINAL REPORT [facility] angiogram of the upper chest, neck, [...] MD Report Verified Date/Time:08/30/2017 18:01:31 Reading Location: [address] Neuro Reading Room Procedure Note Interface, [...] Report Verified Date/Time: 08/30/2017 18:01:31 Reading Location: [facility] Neuro Reading Room Performing Organization Address City/State/Zipcode Phone Number [employer] [facility] CTA brain (08/30/2017 6:05 PM CDT) Specimen Narrative Performed At FINAL REPORT [employer] [facility] CT angiogram of the upper [...] MD Report Verified Date/Time:08/30/2017 18:01:31 Reading Location: [facility] Neuro Reading Room Procedure Note Interface, External [...] Verified Date/Time: 08/30/2017 18:01:31 Reading Location: [address] Neuro Reading Room Performing Organization Address City/State/Zipcode Phone Number [facility] ECHOCARDIOGRAM REPORT - SCAN (08/30/2017 2:50 PM CDT) Narrative Performed At Basic Metabolic Panel (08/30/2017 9:00 AM CDT)Only the most recent of2 resultswithin the time period is included. Sodium 137 136 - 145 meq/L [facility] Potassium 4.1 3.5 - 5.1 meq/L [facility] Chloride 106 98 - 107 meq/L [facility] CO2 24 22 - 29 meq/L [facility] BUN 11 7 - 21 mg/dL [facility] Creatinine 0.81 0.57 - 1.25 mg/dL [facility] Glucose 264 (H) 70 - 105 mg/dL [facility] Calcium 9.1 8.4 - 10.2 mg/dL [facility] EGFR 75Comment: ESTIMATED GFR IS mL/min/1.73 sq m [facility] NOT ACCURATE [facility] CLEARANCE IN PREDICTING GLOMERULAR FILTRATION RATE. ESTIMATED GFR IS NOT APPLICABLE FOR DIALYSIS PATIENTS. Specimen Blood Performing Organization Address City/State/Zipcode Phone Number [facility] [address] [place] [address] CENTER CBC with platelet count + automated diff (08/30/2017 5:10 AM CDT)Only the most recent of2 resultswithin the time period is included. WBC 6.6 3.5 - 10.5 K/L [facility] RBC 4.40 3.93 - 5.22 M/L [facility] Hemoglobin 11.8 11.2 - 15.7 GM/DL [facility] Hematocrit 36.1 34.1 - 44.9 % [facility] MCV 82.0 79.4 - 94.8 fL [facility] MCH 26.8 25.6 - 32.2 pg [facility] MCHC 32.7 32.2 - 35.5 GM/DL [facility] RDW 13.2 11.7 - 14.4 % [facility] Platelets 231 150 - 450 K/CU MM [facility] MPV 10.9 9.4 - 12.3 fL [facility] nRBC 0 0 - 0 /100 WBC [facility] % Neutros 50 % [facility] % Lymphs 41 % [facility] % Monos 6 % [facility] % Eos 2 % [facility] % Baso 1 % [facility] # Neutros 3.34 1.56 - 6.13 K/L [facility] # Lymphs 2.67 1.18 - 3.74 K/L [facility] # Monos 0.40 (H) 0.24 - 0.36 K/L [facility] # Eos 0.15 0.04 - 0.36 K/L [facility] # Baso 0.03 0.01 - 0.08 K/L [facility] Immature Granulocytes-Relative 0 0 - 1 % [facility] Specimen Blood Performing Organization Address City/State/[facility] Phone Number [address] [address] CENTER Troponin I (08/30/2017 5:10 AM CDT)Only the most recent of2 resultswithin the time period is included. Troponin I <0.01 0.00 - 0.03 ng/mL [facility] Specimen Blood Narrative Performed At [facility] Troponin I (TnI) levels must be interpreted [...] tachyarrhythmia. Performing Organization Address City/State/Zipcode Phone Number [address] [address] [phone] [place] XR chest 1 view portable / bedside (08/30/2017 4:15 AM CDT) Specimen Narrative Performed At FINAL REPORT [facility] Comparison examination: None No pneumothorax, focal pulmonary consolidation, or significant pleural effusion. Normal cardiomediastinal contours. Normal skeleton and soft tissues. Impression: No acute abnormality. Signed: Ervin Jenkins MD Report Verified Date/Time:08/30/2017 04:23:04 Reading Location: [address] Reading Room Procedure Note Interface, External Ris In - 08/30/2017 4:25 AM CDT FINAL REPORT Comparison examination: None No pneumothorax, focal pulmonary consolidation, or significant pleural effusion. Normal cardiomediastinal contours. Normal skeleton and soft tissues. Impression: No acute abnormality. Signed: Ervin Jenkins MD Report Verified Date/Time: 08/30/2017 04:23:04 Reading Location: [address] Reading Room Performing Organization Address City/State/Zipcode Phone Number [facility] 2D Echo W/Doppler(CW/PW/Color) (08/29/2017 3:24 PM CDT) Ejection Fraction [facility] Total EclipseON [facility] Specimen Narrative Performed At Transthoracic Echocardiography Report (TTE) [facility] SkemA [facility] Demographics Patient Name RHONA CORNEJO Date of Study 08/29/2017 AL[place] [id number] GenderFemale Visit Number [id number] Unknown [id number] Room Number [id number] Number Date of Birth1970Referring Physician Vipul Riley Age47 year(s)Human Resources Clerk AnalystIrosalie ArauzpreCipriano Manning Physician Procedure Type of Study TTE [...] Study 08/29/2017 ALES[place] Gender Female Visit Number [id number] Race Unknown Room Number 2261 Number Date of 1970 Referring Physician Vipul Riley Age 47 year(s) Human Resources Clerk Flanging Roll Operator Cailin Hernandez Interpreting Bebeto Manning Physician Procedure Type of Study [...] City/State/Zipcode Phone Number [facility] MKCKESSON [facility] CT brain without IV contrast (08/29/2017 1:41 PM CDT) Specimen Narrative Performed At FINAL REPORT [facility] head without contrast. Comparisons: No Reason [...] Report Verified Date/Time:08/29/2017 14:52:09 Reading Location: [address] Neuro Reading Room Procedure Note Interface, [...] Verified Date/Time: 08/29/2017 14:52:09 Reading Location: [address] Neuro Reading Room Performing Organization Address City/State/Zipcode Phone Number [facility] PERIPHERAL VASCULAR REPORT - SCAN (08/29/2017 10:20 AM CDT) Narrative Performed At Carotid doppler bilateral (08/29/2017 8:57 AM CDT) Ejection Fraction [facility] MKCKESSON [facility] Specimen Impressions Performed At Right Impression [facility] MKCKESSON [facility] 1. The internal, [...] At PV LAB - Carotid Duplex Study [facility] Demographics Patient Name Tone CORNEJO of Study 08/29/2017 [place] [id number] Age 47 Visit Number [id number] GenderFemale Accession Number [id number] Date of [address] [facility] Number [id number] Physician SonographerFalisa Giordano MD, [place] Physician LIZETH Procedure Type [...] Study 08/29/2017 ALESIA Age 47 Visit Number [id number] Gender Female Accession Number [id number] Date of 1970 Referring [facility] Room Number 2261 Physician Human Resources Clerk Mando Giordano MD, [place] Physician RPVI Procedure [...] are measured in cm Performing Organization Address City/[facility] Phone Number [facility] MKCKESSON [facility] TSH/Free T4 If Indicated (08/29/2017 4:55 AM CDT) TSH 1.55 0.35 - 4.94 uIU/mL [facility] Specimen Blood Performing Organization Address City/State/Zipcode Phone Number [address] [address] CENTER Hemoglobin A1c (08/29/2017 4:55 AM CDT) Hemoglobin A1C 13.7 (H) 4.3 - 6.1 % [facility] Specimen Blood Performing Organization Address City/[facility] Mex[facility] Phone Number [address] [address] [phone] [place] Vitamin B12 (08/29/2017 4:55 AM CDT) Vitamin B12 300 213 - 816 pg/mL [facility] Specimen Blood Performing Organization Address [facility] Phone Number [address] [address] [phone] [place] Urinalysis w/Microscopic (08/28/2017 11:16 PM CDT) Color, UA Brown [facility] Clarity, UA Hazy [facility] Specific [place], UA 1.016 1.001 - 1.035 [facility] pH, UA 5.0 5.0 - 8.0 [facility] Protein, UA 30 mg/dL (A) Negative [facility] Glucose, UA 300 mg/dL (A) Negative [facility] Ketones, UA Negative Negative [facility] Bilirubin, UA Positive (A) Negative [facility] Blood, UA Negative Negative [facility] Nitrite, UA Positive (A) Negative [facility] Leukocytes, UA Small (A) Negative [facility] Urobilinogen, UA 3.0 (H) 0.2 - 1.0 mg/dL [facility] RBC, UA 2 /HPF [facility] WBC, UA 24 /HPF [facility] Bacteria, UA Many [facility] Mucus Rare [facility] Squam Epithel, UA 7 /HPF [facility] Hyaline Casts, UA 16 /LPF [facility] Casts 16 /LPF [facility] Yeast Occasional [facility] Specimen Source [facility] Specimen Urine Performing Organization Address City/State/Zipcode Phone Number [facility] [address] [place] [address] CENTER ECG 12 lead (08/28/2017 9:44 PM CDT) Specimen Narrative Performed At Ventricular Rate 69 BPM GE MUSE Atrial Rate 69 BPM P-R Interval 182 ms QRS Duration 88 ms Q-T Interval 410 ms QTC Calculation(Bazett) 439 ms P [place] 19 degrees R [place] 18 degrees T [place] 21 degrees Normal sinus rhythm Normal ECG No previous ECGs available Confirmed by MD GARCIA D. RICHARD ([id number]) on 08/29/2017 10:54:52 AM Procedure Note Interface, External Ris In - 08/29/2017 10:54 AM CDT Ventricular Rate 69 BPM Atrial Rate 69 BPM P-R Interval 182 ms QRS Duration 88 ms Q-T Interval 410 ms QTC Calculation(Bazett) 439 ms P [place] 19 degrees R [place] 18 degrees T [place] 21 degrees Normal sinus rhythm Normal ECG No previous ECGs available Confirmed by MD GARCIA D. RICHARD ([id number]) on 08/29/2017 10:54:52 AM Performing Organization Address City/State/Zipcode Phone Number GE MUSE after 08/14/2017 Insurance Payer Benefit Plan / Subscriber ID Type Phone Address Group BLUE CROSS/BLUE BCBS PPO POS EPO xxxxxxxxxxxx PPO [phone] [address] [place] [address] ([place]) [place] [address] Advance Directives For more information, please contact:[place] [address], [place] [phone] Code Status Date Activated Date Inactivated Comments Full Code 08/28/2017 9:21 PM 09/01/2017 8:22 PM This code status was determined by: Patient
--- OUTSIDE RECORDS SUMMARY | 2018-08-15 09:14 | XMS REPORT ---
:1970 Author Organization [facility] Address [address] [place] [address] Dr. Kumar [address] [place] [address] Care Team Providers Name Role Phone HARINI [...] (BEAKER) (test 298 mg/dL 70-110 TESTED AT [address] licw=1580) [place] [id number] POCT-GLUCOSE [id number] 12:11:00 Test Item Value Reference Range Comments POC-GLUCOSE METER (BEAKER) 331 mg/dL 70-110 Notified NAT SOUZA/TESTED AT [facility] (test agws=7779) [address] [place], [place] [id number] POCT-GLUCOSE [id number] 10:55:00 Test Item Value Reference Range Comments POC-GLUCOSE METER (BEAKER) 365 mg/dL 70-110 TESTED AT [address] (test mqxv=8099) [place] [id number] POCT-GLUCOSE [id number] 08:44:00 Test Item Value Reference Range Comments POC-GLUCOSE METER (BEAKER) 291 mg/dL 70-110 TESTED AT [address] (test cxlq=3045) [place] [address] LIPID [id number] 05:56:00 Test Item Value Reference Range Comments TRIGLYCERIDES (BEAKER) (test lvqs=147) 279 mg/dL CHOLESTEROL (BEAKER) (test twtx=704) 119 mg/dL HDL CHOLESTEROL (BEAKER) (test xcpd=422) 22 mg/dL LDL CHOLESTEROL CALCULATED (BEAKER) (test 41 mg/dL awax=385) Triglyceride Reference Range: Low Risk <150 Borderline 150- 199 High Risk 200-499 Very High Risk >=500Cholesterol Reference Range: Low Risk <200 Borderline 200-239 High Risk > 240HDL Cholesterol Reference Range: Low Risk >=60 High Risk <40LDL Cholesterol Reference Range: Optimal <100 Near Optimal 100-129 Borderline 130-159 High 160-189 Very High >=190POCT-GLUCOSE [id number] 21:50:00 Test Item Value Reference Range Comments POC-GLUCOSE METER (BEAKER) 318 mg/dL 70-110 TESTED AT [address] (test nkec=1482) [place] [id number] POCT-GLUCOSE [id number] 18:04:00 Test Item Value Reference Range Comments POC-GLUCOSE METER (BEAKER) 238 mg/dL 70-110 TESTED AT [address] (test krjk=1399) [facility] [address] POCT-GLUCOSE [id number] 12:22:00 Test Item Value Reference Range Comments POC-GLUCOSE METER (BEAKER) 290 mg/dL 70-110 TESTED AT [address] (test zdzi=4358) [facility] [address] POCT-GLUCOSE [id number] 09:20:00 Test Item Value Reference Range Comments POC-GLUCOSE METER (BEAKER) 293 mg/dL 70-110 TESTED AT [address] (test phwz=3908) [place] [id number] POCT-GLUCOSE [id number] 21:00:00 Test Item Value Reference Range Comments POC-GLUCOSE METER (BEAKER) 225 mg/dL 70-110 TESTED AT [address] (test qdqn=8398) [facility] [address] CT, CAROTID, [id number] 18:01:00FINAL REPORT CT angiogram of the upper [...] Petersen Verified Date/Time: 08/30/2017 18:01:31 Reading Location: [address] Neuro Reading Room ER [facility] [id number] 18:01:00FINAL REPORT CT angiogram of the upper [...] [place] Verified Date/Time: 08/30/2017 18:01:31 Reading Location: [facility] C013V Neuro Reading Room POCT-GLUCOSE [id number] 17:21: 00 Test Item Value Reference Range Comments POC-GLUCOSE METER (BEAKER) 256 mg/dL 70-110 TESTED AT [address] (test sykc=5825) [place] [address] POCT-GLUCOSE [id number] 12:00:00 Test Item Value Reference Range Comments POC-GLUCOSE METER (BEAKER) 289 mg/dL 70-110 TESTED AT [address] (test kujk=7067) [place] [address] BASIC METABOLIC [id number] 10:12:00 Test Item Value Reference Range Comments SODIUM (BEAKER) (test 137 meq/L 136-145 kgdc=822) POTASSIUM (BEAKER) (test 4.1 meq/L 3.5-5.1 xwvr=123) CHLORIDE (BEAKER) (test 106 meq/L 98-107 yawe=148) CO2 (BEAKER) (test 24 meq/L 22-29 supp=586) BLOOD UREA NITROGEN 11 mg/dL 7-21 (BEAKER) (test mbvq=099) CREATININE (BEAKER) (test 0.81 mg/dL 0.57-1.25 ccxb=456) GLUCOSE RANDOM (BEAKER) 264 mg/dL 70-105 (test bpxv=844) CALCIUM (BEAKER) (test 9.1 mg/dL 8.4-10.2 abbv=889) EGFR (BEAKER) (test 75 mL/min/1.73 sq m ESTIMATED GFR IS NOT zcve=7494) ACCURATE CREATININE CLEARANCE IN PREDICTING GLOMERULAR FILTRATION RATE. ESTIMATED GFR IS NOT APPLICABLE FOR DIALYSIS PATIENTS. POCT-GLUCOSE [id number] 08:42:00 Test Item Value Reference Range Comments POC-GLUCOSE METER (BEAKER) 259 mg/dL 70-110 TESTED AT [address] (test pujc=2812) [place] [id number] TROPONIN [id number] 06:14:00 Test Item Value Reference Range Comments TROPONIN I (BEAKER) (test pood=539) < ng/mL 0.00-0.03 Troponin I (TnI) levels [...] and persistent tachyarrhythmia.CBC W/PLT COUNT & AUTO [id number] 06:09:00 Test Item Value Reference Range Comments WHITE BLOOD CELL COUNT (BEAKER) (test ofqp=466) 6.6 K/ L 3.5-10.5 RED BLOOD CELL COUNT (BEAKER) (test vcxx=258) 4.40 M/ L 3.93-5.22 HEMOGLOBIN (BEAKER) (test ufcm=914) 11.8 GM/DL 11.2-15.7 HEMATOCRIT (BEAKER) (test dxcm=291) 36.1 % 34.1-44.9 MEAN CORPUSCULAR VOLUME (BEAKER) (test gkbu=140) 82.0 fL 79.4-94.8 MEAN CORPUSCULAR HEMOGLOBIN (BEAKER) (test 26.8 pg 25.6-32.2 dqmt=905) MEAN CORPUSCULAR HEMOGLOBIN CONC (BEAKER) (test 32.7 GM/DL 32.2-35.5 hawu=217) RED CELL DISTRIBUTION WIDTH (BEAKER) (test 13.2 % 11.7-14.4 qzzb=228) PLATELET COUNT (BEAKER) (test yhkv=507) 231 K/CU MM 150-450 MEAN PLATELET VOLUME (BEAKER) (test awee=231) 10.9 fL 9.4-12.3 NUCLEATED RED BLOOD CELLS (BEAKER) (test 0 /100 WBC 0-0 srhz=705) NEUTROPHILS RELATIVE PERCENT (BEAKER) (test 50 % umlk=404) LYMPHOCYTES RELATIVE PERCENT (BEAKER) (test 41 % wzai=670) MONOCYTES RELATIVE PERCENT (BEAKER) (test 6 % xozb=150) EOSINOPHILS RELATIVE PERCENT (BEAKER) (test 2 % gylc=285) BASOPHILS RELATIVE PERCENT (BEAKER) (test 1 % hrcs=217) NEUTROPHILS ABSOLUTE COUNT (BEAKER) (test 3.34 K/ L 1.56-6.13 qrdf=165) LYMPHOCYTES ABSOLUTE COUNT (BEAKER) (test 2.67 K/ L 1.18-3.74 ykfw=682) MONOCYTES ABSOLUTE COUNT (BEAKER) (test 0.40 K/ L 0.24-0.36 ywpd=827) EOSINOPHILS ABSOLUTE COUNT (BEAKER) (test 0.15 K/ L 0.04-0.36 zurv=390) BASOPHILS ABSOLUTE COUNT (BEAKER) (test 0.03 K/ L 0.01-0.08 cgho=496) IMMATURE GRANULOCYTES-RELATIVE PERCENT (BEAKER) 0 % 0-1 (test wymu=2439) RAD, CHEST, 1 VIEW, NON [id number] 04:23:00Reason for exam:->chest painShould this be performed at the bedside?->YesFINAL REPORT Comparison examination: None No pneumothorax, focal pulmonary consolidation, or significant pleural effusion. Normal cardiomediastinal contours. Normal skeleton and soft tissues. Impression: No acute abnormality. Signed: Ervin Jenkins Verified Date/Time: 08/30/2017 04:23 :04 Reading Location: [address] Reading Room POCT-GLUCOSE [id number] 21:18:00 Test Item Value Reference Range Comments POC-GLUCOSE METER (BEAKER) 151 mg/dL 70-110 TESTED AT [address] (test splu=6972) [facility] [address] POCT-GLUCOSE [id number] 17:59:00 Test Item Value Reference Range Comments POC-GLUCOSE METER (BEAKER) 146 mg/dL 70-110 TESTED AT [facility] [address] (test txgk=2867) [facility] [address] HEMOGLOBIN [id number] 15:56:00 Test Item Value Reference Range Comments HEMOGLOBIN A1C (BEAKER) (test mvzk=841) 13.7 % 4.3-6.1 CT, BRAIN, WITHOUT [id number] 14:52:00FINAL REPORT CT head without contrast. Comparisons: [...] [place]en Verified Date/Time: 08/29/2017 14:52:09 Reading Location: [address] Neuro Reading Room POCT-GLUCOSE [id number] 14:17:00 Test Item Value Reference Range Comments POC-GLUCOSE METER (BEAKER) 423 mg/dL 70-110 Notified NAT SOUZA/TESTED AT [facility] (test eixe=7149) [address] [facility] [address] VITAMIN [id number] 06:48:00 Test Item Value Reference Range Comments VITAMIN B12 (BEAKER) (test imfx=967) 300 pg/mL 213-816 TSH/FREE T4 IF [id number] 06:48:00 Test Item Value Reference Range Comments THYROID STIMULATING HORMONE (BEAKER) (test 1.55 uIU/mL 0.35-4.94 uavh=523) CBC W/PLT COUNT & AUTO [id number] 05:10:00 Test Item Value Reference Range Comments WHITE BLOOD CELL COUNT (BEAKER) (test oydl=885) 8.6 K/ L 3.5-10.5 RED BLOOD CELL COUNT (BEAKER) (test cfen=619) 4.62 M/ L 3.93-5.22 HEMOGLOBIN (BEAKER) (test ztvl=519) 12.2 GM/DL 11.2-15.7 HEMATOCRIT (BEAKER) (test dqca=740) 42.2 % 34.1-44.9 MEAN CORPUSCULAR VOLUME (BEAKER) (test ltkd=622) 91.3 fL 79.4-94.8 MEAN CORPUSCULAR HEMOGLOBIN (BEAKER) (test 26.4 pg 25.6-32.2 ycwj=316) MEAN CORPUSCULAR HEMOGLOBIN CONC (BEAKER) (test 28.9 GM/DL 32.2-35.5 xqfr=284) RED CELL DISTRIBUTION WIDTH (BEAKER) (test 13.2 % 11.7-14.4 vjzt=367) PLATELET COUNT (BEAKER) (test cxbb=478) 80 K/CU MM 150-450 MEAN PLATELET VOLUME (BEAKER) (test veld=068) 10.9 fL 9.4-12.3 NUCLEATED RED BLOOD CELLS (BEAKER) (test 0 /100 WBC 0-0 giln=787) NEUTROPHILS RELATIVE PERCENT (BEAKER) (test 45 % cmwx=540) LYMPHOCYTES RELATIVE PERCENT (BEAKER) (test 46 % tadw=438) MONOCYTES RELATIVE PERCENT (BEAKER) (test 6 % iyba=640) EOSINOPHILS RELATIVE PERCENT (BEAKER) (test 2 % rkps=235) BASOPHILS RELATIVE PERCENT (BEAKER) (test 1 % mcel=771) NEUTROPHILS ABSOLUTE COUNT (BEAKER) (test 3.91 K/ L 1.56-6.13 ngxf=663) LYMPHOCYTES ABSOLUTE COUNT (BEAKER) (test 3.95 K/ L 1.18-3.74 pval=068) MONOCYTES ABSOLUTE COUNT (BEAKER) (test fgnj=800) 0.54 K/ L 0.24-0.36 EOSINOPHILS ABSOLUTE COUNT (BEAKER) (test 0.13 K/ L 0.04-0.36 dfdg=138) BASOPHILS ABSOLUTE COUNT (BEAKER) (test ouzs=088) 0.07 K/ L 0.01-0.08 IMMATURE GRANULOCYTES-RELATIVE PERCENT (BEAKER) 0 % 0-1 (test xzgp=8113) URINALYSIS W/ [id number] 23:32:00 Test Item Value Reference Range Comments COLOR (BEAKER) (test ugxj=305) Brown CLARITY (BEAKER) (test qgip=809) Hazy SPECIFIC GRAVITY UA (BEAKER) (test pwub=688) 1.016 1.001-1.035 PH UA (BEAKER) (test bqug=000) 5.0 5.0-8.0 PROTEIN UA (BEAKER) (test gstq=660) 30 mg/dL Negative GLUCOSE UA (BEAKER) (test ilwf=277) 300 mg/dL Negative KETONES UA (BEAKER) (test srph=257) Negative Negative BILIRUBIN UA (BEAKER) (test wcnq=296) Positive Negative BLOOD UA (BEAKER) (test grxg=727) Negative Negative NITRITE UA (BEAKER) (test znnb=145) Positive Negative LEUKOCYTE ESTERASE UA (BEAKER) (test oour=774) Small Negative UROBILINOGEN UA (BEAKER) (test zhkc=107) 3.0 mg/dL 0.2-1.0 RBC UA (BEAKER) (test zlvb=633) 2 /HPF WBC UA (BEAKER) (test bcra=149) 24 /HPF BACTERIA (BEAKER) (test qpjx=106) Many MUCUS (BEAKER) (test zbqs=7173) Rare SQUAMOUS EPITHELIAL (BEAKER) (test drpy=293) 7 /HPF HYALINE CASTS (BEAKER) (test sobg=981) 16 /LPF CASTS (BEAKER) (test bfxq=3944) 16 /LPF YEAST (BEAKER) (test xuzs=4474) Occasional SOURCE(BEAKER) (test uqsd=1520) TROPONIN [id number] 23:12:00 Test Item Value Reference Range Comments TROPONIN I (BEAKER) (test xtei=514) < ng/mL 0.00-0.03 Troponin I (TnI) levels [...] acute neurological disease, and persistent tachyarrhythmia.BASIC METABOLIC [id number] 23:05:00 Test Item Value Reference Range Comments SODIUM (BEAKER) (test 128 meq/L 136-145 lasp=292) POTASSIUM (BEAKER) (test 4.9 meq/L 3.5-5.1 Specimen moderately vifi=060) hemolyzed CHLORIDE (BEAKER) (test 100 meq/L 98-107 fiyb=932) CO2 (BEAKER) (test 13 meq/L 22-29 mepf=238) BLOOD UREA NITROGEN 29 mg/dL 7-21 (BEAKER) (test iayo=023) CREATININE (BEAKER) (test 1.55 mg/dL 0.57-1.25 Specimen moderately woeq=718) hemolyzed GLUCOSE RANDOM (BEAKER) 326 mg/dL 70-105 (test txvo=974) CALCIUM (BEAKER) (test 9.6 mg/dL 8.4-10.2 iaad=129) EGFR (BEAKER) (test 36 mL/min/1.73 sq m ESTIMATED GFR IS NOT wvvx=2826) ACCURATE CREATININE CLEARANCE IN PREDICTING GLOMERULAR FILTRATION RATE. ESTIMATED GFR IS NOT APPLICABLE FOR DIALYSIS PATIENTS. POCT-GLUCOSE [id number] 20:49:00 Test Item Value Reference Range Comments POC-GLUCOSE METER (BEAKER) 376 mg/dL 70-110 Notified NAT SOUZA/TESTED AT [facility] (test fmiq=0981) [address] [place] [address]
[2018-08-15 10:31] LABS: Urine Blood NEGATIVE (NEG); Urine Glucose 2+ (NEG); Urine Protein 2+ (NEG); Urine Specific Gravity 1.015 (1.005-1.030); Urine pH 5.5 (5.0-7.0)
[2018-08-15] MEDS ORDERED: KETOROLAC 30 MG/ML INJ ONE (10:31)
[2018-08-15 10:49] LABS: Absolute Lymphocytes (CBC) 3.4 K/uL (0.7-4.9); Absolute Monocytes 0.6 K/uL (0.1-1.3); Absolute Neutrophil 3.7 K/uL (1.8-8.0); Basophils % 1.2 % (0-1.3); Eosinophils % 2.5 % (0-4.4); Hematocrit 42.4 % (36.0-45.0); Lymphocytes % 42.9 % (15.3-44.8); MPV 9.4 fL (7.6-11.3); Monocytes % 7.2 % (3.3-12.3); RBC Red Blood Cell Count 5.25 M/uL (3.86-4.86)
[2018-08-15] MEDS ORDERED: ONDANSETRON 4 MG/2 ML VIAL ONE (11:11)
[2018-08-15 11:17] LABS: Urine Bacteria 20-50 /HPF (<20); Urine Culture Reflex Order REFLEXED; Urine RBC <5 /HPF (NONE SEEN)
[2018-08-15 11:23] LABS: ALT/SGPT 30 U/L (12-78); AST/SGOT 25 U/L (15-37); Albumin 3.3 g/dL (3.4-5.0); Alkaline Phosphatase 135 U/L (45-117); BUN Blood Urea Nitrogen 9 mg/dL (7-18); Bicarbonate 27 mmol/L (21-32); Bilirubin Direct < 0.1 mg/dL (0-0.2); Bilirubin Total 0.3 mg/dL (0.2-1.0); Lipase 138 U/L (73-393); Potassium 3.9 mmol/L (3.5-5.1); Protein, Total 7.5 g/dL (6.4-8.2)
[2018-08-15 11:25] LABS: Sodium Level 137 mmol/L (136-145)
[2018-08-15 11:27] LABS: Glucose Level 537 mg/dL (74-106)
[2018-08-15] MEDS ORDERED: NA CHLORIDE 0.9% 1,000 ML ONE (11:47)
[2018-08-15] MEDS ORDERED: INSULIN -REGULAR HUMAN 50 UNIT/0.5 ML ML ONE (11:47)
--- NOTE | 2018-08-15 11:57 | RAD REPORT ---
EXAM DESCRIPTION: RAD - Chest Pa And Lat (2 Views) - 08/15/2018 10:44 am CLINICAL HISTORY: COUGH Chest pain. COMPARISON: Chest Single View dated 08/28/2017; Abdomen Acute Series dated 06/10/2017; Chest Single Vie w dated 10/17/2016; Chest Single View dated 08/24/2015 FINDINGS: The lungs are clear. The heart is normal in size. No displaced fractures. IMPRESSION: No acute or concerning finding suspected.
[2018-08-15] MEDS ORDERED: DIPHENHYDRAMINE 50 MG/ML VIAL ONE (12:29)
[2018-08-15] MEDS ORDERED: HALOPERIDOL LACT 5 MG/ML INJ ONE (12:29)
--- NOTE | 2018-08-15 13:19 | EDPHYS ---
Physician Documentation [facility] Name: Elly Clarke Age: 48 yrs Sex: Female : 1970 Arrival Date: 08/15/2018 Time: 09:13 Bed 17 Private MD: ED Physician Norman Pollack HPI: 08/15 13:10 This 48 yrs old Female presents to ER via Ambulatory with complaints of gs Abdominal Pain, Cough. 13:10 The patient presents with abdominal pain in the lower abdomen. gs 13:13 Onset: The symptoms/episode began/occurred yesterday. The symptoms do not radiate. gs Associated signs and symptoms: Pertinent negatives:. 13:13 Associated signs and symptoms: Pertinent negatives: blood in stools, vomiting, vomiting gs blood. The symptoms are described as crampy. Severity of pain: At its worst the pain was moderate in the emergency department the pain is unchanged. The patient has experienced similar episodes in the past, multiple times. 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 - Hysterectomy em Historical: - Allergies: 09:40 Claritin (insomnia); em 09:40 Compazine (Seizures); em 09:40 Demerol (HEART RACING); em 09:40 (Hives); em 09:40 Morphine (RACING HEART); em 09:40 mushrooms; em - Home Meds: 09:40 Abilify Oral [Active]; Celexa Oral [Active]; gabapentin Oral [Active]; Klonopin 0.5 mg em Oral tab 1 tab 2 times per day [Active]; Metformin Oral [Active]; tizanidine Oral BID [Active]; - PMHx: 09:40 Arthritis; Chrohns; Chronic pain; Diabetes - NIDDM; Dramatic migraine events; em Gastroparesis; High Cholesterol; Hypertension; Migraines; Pancreatitis; spinal stenosis; - PSHx: 09:40 Hysterectomy; Appendectomy; Cholecystectomy; Tonsillectomy; em - Immunization history:: Adult Immunizations up to date. - Social history:: Smoking status: unknown. - Ebola Screening: : Patient negative for fever greater than or equal to 101.5 degrees Fahrenheit, and additional compatible Ebola Virus Disease symptoms Patient denies exposure to infectious person Patient denies travel to an Ebola-affected area in the 21 days before illness onset No symptoms or risks identified at this time. ROS: 13:13 All other systems are negative. gs 13:13 Respiratory: Positive for cough, SEEN BY PCP. gs Exam: 13:13 Head/Face: Normocephalic, atraumatic. Eyes: Pupils equal round and reactive to light, gs extra-ocular motions intact. Lids and lashes normal. Conjunctiva and sclera are non-icteric and not injected. Cornea within normal limits. Periorbital areas with no swelling, redness, or edema. ENT: Nares patent. No nasal discharge, no septal abnormalities noted. Tympanic membranes are normal and external auditory canals are clear. Oropharynx with no redness, swelling, or masses, exudates, or evidence of obstruction, uvula midline. Mucous membranes moist. Neck: Trachea midline, no thyromegaly or masses palpated, and no cervical lymphadenopathy. Supple, full range of motion without nuchal rigidity, or vertebral point tenderness. No Meningismus. Chest/axilla: Normal chest wall appearance and motion. Nontender with no deformity. No lesions are appreciated. Cardiovascular: Regular rate and rhythm with a normal S1 and S2. No gallops, murmurs, or rubs. Normal PMI, no JVD. No pulse deficits. Respiratory: Lungs have equal breath sounds bilaterally, clear to auscultation and percussion. No rales, rhonchi or wheezes noted. No increased work of breathing, no retractions or nasal flaring. Back: No spinal tenderness. No costovertebral tenderness. Full range of motion. Skin: Warm, dry with normal turgor. Normal color with no rashes, no lesions, and no evidence of cellulitis. MS/ Extremity: Pulses equal, no cyanosis. Neurovascular intact. Full, normal range of motion. Neuro: Awake and alert, GCS 15, oriented to person, place, time, and situation. Cranial nerves II-XII grossly intact. Motor strength 5/5 in all extremities. Sensory grossly intact. Cerebellar exam normal. Normal gait. 13:13 Constitutional: The patient appears alert, awake. 13:13 Abdomen/GI: Palpation: mild abdominal tenderness, in the right lower quadrant and left lower quadrant, rebound tenderness, is not appreciated. Vital Signs: 09:40 BP 134 / 77; Pulse 97; Resp 18; Temp 98.3(O); Pulse Ox 98% on R/A; Pain 10/10; em 10:53 BP 125 / 72; Pulse 95; Resp 18; Pulse Ox 95% on R/A; em 12:29 BP 112 / 75; Pulse 88; Resp 18; Temp 98.2(O); Pulse Ox 95% on R/A; Pain 9/10; mh5 13:36 BP 118 / 68; Pulse 86; Resp 18; Pulse Ox 95% on R/A; Pain 10/10; em MDM: 09:43 Patient medically screened. 13:13 Differential diagnosis: non-specific abd pain, urinary tract infection. Data reviewed: vital signs, nurses notes. Counseling: I had a detailed discussion with the patient and/or guardian regarding: the historical points, exam findings, and any diagnostic results supporting the discharge/admit diagnosis, the need for outpatient follow up. Response to treatment: the patient's symptoms have markedly improved after treatment, the patient's condition has returned to base line. 08/15 10:02 Order name: Basic Metabolic Panel; Complete Time: 12:18 08/15 10:02 Order name: CBC with Diff; Complete Time: 11:04 08/15 10:02 Order name: Hepatic Function; Complete Time: 12:18 08/15 10:02 Order name: Lipase; Complete Time: 12:18 08/15 10:02 Order name: Urine Microscopic Only; Complete Time: 11:22 08/15 10:04 Order name: Urine Dipstick--Ancillary (enter results); Complete Time: 11:04 08/15 10:02 Order name: XRAY Chest Pa And Lat (2 Views); Complete Time: 12:18 08/15 11:19 Order name: Urine Culture [facility] 08/15 12:41 Order name: Glucose, Ancillary Testing; Complete Time: 13:27 [facility] 08/15 10:02 Order name: IV Saline Lock; Complete Time: 10:49 08/15 10:02 Order name: Labs collected and sent; Complete Time: 10:48 08/15 10:02 Order name: Urine Dipstick-Ancillary (obtain specimen); Complete Time: 10:10 08/15 10:02 Order name: Urine Test (obtain specimen); Complete Time: 10:10 08/15 12:33 Order name: Fingerstick Glucose; Complete Time: 12:39 gs Administered Medications: 10:40 Drug: TORadol - Ketorolac 15 mg Route: IVP; Site: left antecubital; iw 10:55 Follow up: Response: No adverse reaction; Pain is unchanged, physician notified em 11:05 Drug: Zofran 4 mg Route: IVP; Site: left antecubital; iw 12:12 Follow up: Response: No adverse reaction; Nausea is decreased em 11:47 Drug: NS 0.9% 1000 ml Route: IV; Rate: 1 bolus; Site: left antecubital; iw 13:37 Follow up: IV Status: Completed infusion; IV Intake: 1000ml em 11:47 Drug: Insulin Regular Human 5 units {Co-Signature: em (Storm Chaparro LVN).} Route: IVP; iw Site: left antecubital; 13:37 Follow up: Response: No adverse reaction; Blood sugar is lowered em 12:20 Not Given (Patient Refused; states, "it made me anxious for 2 days"): HALdol 2.5 mg IVP em once 12:21 Not Given (Physician Discretion): Benadryl 25 mg IVP once em Point of Care Testing: Blood Glucose: 12:40 Blood Glucose: 404 mg/dL; em Ranges: Critical Glucose Levels:Adult <50 mg/dl or >400 mg/dl <40 mg/dl or >180 mg/dl Disposition: 08/15/18 13:18 Discharged to Home. Impression: Crohn's disease [regional enteritis]. - Condition is Stable. - Discharge Instructions: Crohn Disease. - Prescriptions for Pentasa 500 mg Oral capsule, extended release - take 2 capsule by ORAL route 4 times per day; 80 capsule. - Medication Reconciliation Form, Thank You Letter, Antibiotic Education, Prescription Opioid Use form. - Follow up: Private Physician; When: 2 - 3 days; Reason: Re-evaluation by your physician. Signatures: Dispatcher [employer] Storm Valentine LVN LVN em Kenisha Prince RN RN iw Norman Pollack MD MD Storm Chaparro LVN em Corrections: (The following items were deleted from the chart) 13:52 13:18 08/15/2018 13:18 Discharged to Home. Impression: Crohn's disease [regional em enteritis]. Condition is Stable. Forms are Medication Reconciliation Form, Thank You Letter, Antibiotic Education, Prescription Opioid Use. Follow up: Private Physician; When: 2 - 3 days; Reason: Re-evaluation by your physician. gs
--- NOTE | 2018-08-15 13:19 | ER ---
Nurse's Notes [facility] Name: Elly Clarke Age: 48 yrs Sex: Female : 1970 Arrival Date: 08/15/2018 Time: 09:13 Bed 17 [facility] MD: Diagnosis: Crohn's disease [regional enteritis] Presentation: 08/15 09:36 Presenting complaint: Patient states: abd pain that started last night, reports nausea em and diarrhea, hx of Crohns, also reports waking up this morning with a cough and was coughing up blood. Transition of care: patient was not received from another setting of care. Onset of symptoms was August 14, 2018. Risk Assessment: Do you want to hurt yourself or someone else? Patient reports no desire to harm self or others. Initial Sepsis Screen: Does the patient meet any 2 criteria? No. Patient's initial sepsis screen is negative. Does the patient have a suspected source of infection? No. Patient's initial sepsis screen is negative. Care prior to arrival: None. 09:36 Method Of Arrival: Ambulatory em 09:50 Acuity: HANNAH 3 iw Triage Assessment: 09:40 General: Appears in no apparent distress. uncomfortable, Behavior is cooperative, em Denies fever. Pain: Complains of pain in suprapubic area Pain currently is 10 out of 10 on a pain scale. GI: Abdomen is flat. 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:40 LMP N/A - Hysterectomy em Historical: - Allergies: 09:40 Claritin (insomnia); em 09:40 Compazine (Seizures); em 09:40 Demerol (HEART RACING); em 09:40 (Hives); em 09:40 Morphine (RACING HEART); em 09:40 mushrooms; em - Home Meds: 09:40 Abilify Oral [Active]; Celexa Oral [Active]; gabapentin Oral [Active]; Klonopin 0.5 mg em Oral tab 1 tab 2 times per day [Active]; Metformin Oral [Active]; tizanidine Oral BID [Active]; - PMHx: 09:40 Arthritis; Chrohns; Chronic pain; Diabetes - NIDDM; Dramatic migraine events; em Gastroparesis; High Cholesterol; Hypertension; Migraines; Pancreatitis; spinal stenosis; - PSHx: 09:40 Hysterectomy; Appendectomy; Cholecystectomy; Tonsillectomy; em - Immunization history:: Adult Immunizations up to date. - Social history:: Smoking status: unknown. - Ebola Screening: : Patient negative for fever greater than or equal to 101.5 degrees Fahrenheit, and additional compatible Ebola Virus Disease symptoms Patient denies exposure to infectious person Patient denies travel to an Ebola-affected area in the 21 days before illness onset No symptoms or risks identified at this time. Screenin:42 Abuse screen: Denies threats or abuse. Nutritional screening: No deficits noted. em Tuberculosis screening: No symptoms or risk factors identified. Fall Risk None identified. Assessment: 09:40 General: Appears in no apparent distress. uncomfortable, Behavior is calm, cooperative, em Reports chills for 12-24 hours. Pain: Complains of pain in suprapubic area Pain currently is 8 out of 10 on a pain scale. Pain began 1 day ago. Neuro: Level of Consciousness is awake, alert, obeys commands, Oriented to person, place, time, situation. Cardiovascular: Denies chest pain, Capillary refill < 3 seconds. Respiratory: Reports cough that is productive, bloody Airway is patent Respiratory effort is even, unlabored, Respiratory pattern is regular, symmetrical, Breath sounds are clear bilaterally. Denies shortness of breath pain with cough. GI: Abdomen is round non-distended, Bowel sounds present X 4 quads. Abd is soft X 4 quads Abdomen is tender to palpation in right lower quadrant and left lower quadrant. : Denies burning with urination. EENT: Denies nasal congestion, nasal discharge. Derm: Skin is intact, is healthy with good turgor, Skin is pink, warm \\T\\ dry. Musculoskeletal: Capillary refill < 3 seconds, Range of motion: intact in all extremities. 10:50 Reassessment: request pain medication, states Toradol did not help, provider notified. em 11:30 Reassessment: Patient appears in no apparent distress at this time. Patient and/or em family updated on plan of care and expected duration. Pain level reassessed. Patient is alert, oriented x 3, equal unlabored respirations, skin warm/dry/pink. request pain medication, provider notified, no new orders received. 12:30 Reassessment: reports Haldol makes her anxious for 2 days and does not like the way if em feels, medication not given, provider notified, no new orders received. 13:43 Reassessment: provider at bedside. em Vital Signs: 09:40 BP 134 / 77; Pulse 97; Resp 18; Temp 98.3(O); Pulse Ox 98% on R/A; Pain 10/10; em 10:53 BP 125 / 72; Pulse 95; Resp 18; Pulse Ox 95% on R/A; em 12:29 BP 112 / 75; Pulse 88; Resp 18; Temp 98.2(O); Pulse Ox 95% on R/A; Pain 9/10; mh5 13:36 BP 118 / 68; Pulse 86; Resp 18; Pulse Ox 95% on R/A; Pain 10/10; em ED Course: 09:13 Patient arrived in ED. as 09:24 Norman Pollack MD is Attending Physician. gs 09:40 Arm band placed on. em 09:42 Patient has correct armband on for positive identification. Placed in gown. Bed in low em position. Call light in reach. Pulse ox on. NIBP on. 09:50 Triage completed. iw 10:40 Initial lab(s) drawn, by me, sent to lab. Inserted saline lock: 22 gauge in left em antecubital area, using aseptic technique. Blood collected. 10:43 XRAY Chest Pa And Lat (2 Views) In Process Unspecified. EDMS 11:23 Notified ED physician of a critical lab result(s). glucose 537. em 11:46 Kenisha Prince, RN is Primary Nurse. iw 13:51 No provider procedures requiring assistance completed. IV discontinued, intact, em bleeding controlled, No redness/swelling at site. Pressure dressing applied. Administered Medications: 10:40 Drug: TORadol - Ketorolac 15 mg Route: IVP; Site: left antecubital; iw 10:55 Follow up: Response: No adverse reaction; Pain is unchanged, physician notified em 11:05 Drug: Zofran 4 mg Route: IVP; Site: left antecubital; iw 12:12 Follow up: Response: No adverse reaction; Nausea is decreased em 11:47 Drug: NS 0.9% 1000 ml Route: IV; Rate: 1 bolus; Site: left antecubital; iw 13:37 Follow up: IV Status: Completed infusion; IV Intake: 1000ml em 11:47 Drug: Insulin Regular Human 5 units {Co-Signature: em (Storm Chaparro SCALDER).} Route: IVP; Site: left antecubital; 13:37 Follow up: Response: No adverse reaction; Blood sugar is lowered em 12:20 Not Given (Patient Refused; states, "it made me anxious for 2 days"): HALdol 2.5 mg IVP em once 12:21 Not Given (Physician Discretion): Benadryl 25 mg IVP once em Point of Care Testing: Blood Glucose: 12:40 Blood Glucose: 404 mg/dL; em Ranges: Intake: 13:37 IV: 1000ml; Total: 1000ml. em Outcome: 13:18 Discharge ordered by . 13:51 Discharged to home ambulatory. em 13:51 Condition: good 13:51 Discharge instructions given to patient, Instructed on discharge instructions, follow up and referral plans. medication usage, Demonstrated understanding of instructions, follow-up care, medications, Prescriptions given X 1. 13:52 Patient left the ED. em Signatures: Dispatcher [employer] Storm Valentine, SCALDER SCALDER em Lashell Boykin Irene, RN RN Glory Boykin 5 Norman Pollack MD MD Storm Chaparro SCALDER em Corrections: (The following items were deleted from the chart) 11:17 09:23 Kenisha Prince, RN is Primary Nurse. em
[2018-08-15 15:28] VITALS: O2SAT 95
[2018-08-15 15:30] VITALS: TEMP 98.2
[2018-08-15 15:31] VITALS: BP 118/68
== END 2018-08-15 13:52 | disposition home or self-care (01) ==
LOC: ER 09:11
DX: K50.90 Crohn's disease, unspecified, without complications (principal); I10 Essential (primary) hypertension; E11.9 Type 2 diabetes mellitus without complications; E78.00 Pure hypercholesterolemia, unspecified; Z88.5 Allergy status to narcotic agent; Z88.8 Allergy status to other drugs, medicaments and biological substances; Z91.018 Allergy to other foods
CPT/HCPCS: 36415; 71046; 80048; 80076; 81003; 81015; 82962; 83690; 85025; 87086; 87088; 96361; 96374; 96375; 99284; J1630; J2405; J7030

== ENCOUNTER 2018-09-26 05:58 | Emergency (ER) | payer OTHER ==
[2011-12-22 05:16] VITALS: BP 114/69
--- OUTSIDE RECORDS SUMMARY | 2018-09-26 06:01 | XMS REPORT | Clinical Summary ---
:1970 Author Organization [facility] Address [address] [place] [address] Care Team Providers Name Role Phone Pavel Curran MD Primary Care Provider Allergies Active Allergy Reactions Severity Noted Date Comments Loratadine-Pseudoephedrine Other (See Comments) 08/28/2017 hyperactivity Prochlorperazine Other (See Comments) 08/28/2017 Seizures Meperidine Rash Low 08/28/2017 Sesucbooi-Chfcvl-Oayoatnj-Scop Itching, Rash Low 08/28/2017 Morphine Rash Low 08/28/2017 Medications Medication Sig Dispensed Refills Start Date End Date Status traMADol (ULTRAM) Take 50 mg by mouth 0 Active 50 mg tablet 2 (two) times daily. butorphanol 1 spray by Nasal 0 Active (STADOL) 10 mg/mL route every 4 (four) nasal spray hours as needed for Pain. amitriptyline Take 10 mg by mouth 0 Active (ELAVIL) 10 MG nightly. tablet tiZANidine Take 4 mg by mouth 0 Active (ZANAFLEX) 2 MG every 6 (six) hours tablet as needed. aspirin 81 MG Take 1 tablet (81 mg 30 tablet 09/02/2017 chewable tablet total) by mouth 9 daily. atorvastatin Take 1 tablet (20 mg 30 tablet 09/01/2017 (LIPITOR) 20 MG total) by mouth 9 tablet nightly. gabapentin Take 1 capsule (300 90 capsule 09/01/2017 (NEURONTIN) 300 MG mg total) by mouth 3 9 capsule (three) times daily. zolpidem (AMBIEN) 5 Take 1 tablet (5 mg 30 tablet 0 09/01/2017 MG tablet total) by mouth 8 every night as needed for Insomnia for up to 30 days. Max Daily Amount: 5 mg insulin glargine Inject 15 Units 9 mL 0 09/01/2017 (LANTUS) 100 subcutaneously 2 8 unit/mL injection (two) times daily for 30 days Use as directed. Active Problems Problem Noted Date Left sided numbness 08/29/2017 Neurological symptoms 08/28/2017 Social History Tobacco Use Types Packs/Day Years Used Date Never Smoker Smokeless Tobacco: Never Used Sex Assigned at Date Recorded Not on file Job Start Date Occupation Industry Not on file Not on file Not on file Travel History Travel Start Travel End No recent travel history available. Last Filed Vital Signs Not on file Plan of Treatment Not on file Results Not on fileafter 09/25/2017 Insurance Payer Benefit Plan / Subscriber ID Type Phone Address Group BLUE CROSS/BLUE BCBS PPO POS EPO xxxxxxxxxxxx PPO [phone] [address] [place] [address] (Home) [place] [address] Advance Directives For more information, please contact:[address] [phone] Code Status Date Activated Date Inactivated Comments Full Code 08/28/2017 9:21 PM 09/01/2017 8:22 PM This code status was determined by: Patient
--- OUTSIDE RECORDS SUMMARY | 2018-09-26 06:02 | XMS REPORT ---
:1970 Author Organization [facility] Address [address] [place] [address] [address]. [address] [place] [address] Care Team Providers Name Role Phone HARINI [...] (BEAKER) (test 298 mg/dL 70-110 TESTED AT [address] hdfz=1017) [place] [id number] POCT-GLUCOSE [id number] 12:11:00 Test Item Value Reference Range Comments POC-GLUCOSE METER (BEAKER) 331 mg/dL 70-110 Notified NAT SOUZA/TESTED AT [facility] (test thkc=0782) [address] [place], [place] [id number] POCT-GLUCOSE [id number] 10:55:00 Test Item Value Reference Range Comments POC-GLUCOSE METER (BEAKER) 365 mg/dL 70-110 TESTED AT [address] (test juha=0240) [place] [id number] POCT-GLUCOSE [id number] 08:44:00 Test Item Value Reference Range Comments POC-GLUCOSE METER (BEAKER) 291 mg/dL 70-110 TESTED AT [address] (test nlwb=3241) [place] [address] LIPID [id number] 05:56:00 Test Item Value Reference Range Comments TRIGLYCERIDES (BEAKER) (test iqje=903) 279 mg/dL CHOLESTEROL (BEAKER) (test sijk=492) 119 mg/dL HDL CHOLESTEROL (BEAKER) (test idrb=817) 22 mg/dL LDL CHOLESTEROL CALCULATED (BEAKER) (test 41 mg/dL tozw=123) Triglyceride Reference Range: Low Risk <150 Borderline 150- 199 High Risk 200-499 Very High Risk >=500Cholesterol Reference Range: Low Risk <200 Borderline 200-239 High Risk > 240HDL Cholesterol Reference Range: Low Risk >=60 High Risk <40LDL Cholesterol Reference Range: Optimal <100 Near Optimal 100-129 Borderline 130-159 High 160-189 Very High >=190POCT-GLUCOSE [id number] 21:50:00 Test Item Value Reference Range Comments POC-GLUCOSE METER (BEAKER) 318 mg/dL 70-110 TESTED AT [address] (test ygmq=3912) [place] [id number] POCT-GLUCOSE [id number] 18:04:00 Test Item Value Reference Range Comments POC-GLUCOSE METER (BEAKER) 238 mg/dL 70-110 TESTED AT [address] (test pwnb=8363) [facility] [address] POCT-GLUCOSE [id number] 12:22:00 Test Item Value Reference Range Comments POC-GLUCOSE METER (BEAKER) 290 mg/dL 70-110 TESTED AT [address] (test weox=5930) [facility] [address] POCT-GLUCOSE [id number] 09:20:00 Test Item Value Reference Range Comments POC-GLUCOSE METER (BEAKER) 293 mg/dL 70-110 TESTED AT [address] (test ntgz=0620) [place] [id number] POCT-GLUCOSE [id number] 21:00:00 Test Item Value Reference Range Comments POC-GLUCOSE METER (BEAKER) 225 mg/dL 70-110 TESTED AT [address] (test buto=0949) [facility] [address] CT, CAROTID, [id number] 18:01:00FINAL REPORT CT angiogram of the upper [...] Verified Date/Time: 08/30/2017 18:01:31 Reading Location: [address] Neuro Reading Room [facility] [id number] 18:01:00FINAL REPORT CT angiogram of the upper [...] [place] Verified Date/Time: 08/30/2017 18:01:31 Reading Location: [facility] C013V Neuro Reading Room POCT-GLUCOSE [id number] 17:21: 00 Test Item Value Reference Range Comments POC-GLUCOSE METER (BEAKER) 256 mg/dL 70-110 TESTED AT [address] (test xilk=3253) [place] [address] POCT-GLUCOSE [id number] 12:00:00 Test Item Value Reference Range Comments POC-GLUCOSE METER (BEAKER) 289 mg/dL 70-110 TESTED AT [address] (test rxye=0926) [place] [address] BASIC METABOLIC [id number] 10:12:00 Test Item Value Reference Range Comments SODIUM (BEAKER) (test 137 meq/L 136-145 elck=152) POTASSIUM (BEAKER) (test 4.1 meq/L 3.5-5.1 fzos=454) CHLORIDE (BEAKER) (test 106 meq/L 98-107 wetr=486) CO2 (BEAKER) (test 24 meq/L 22-29 iopc=393) BLOOD UREA NITROGEN 11 mg/dL 7-21 (BEAKER) (test uwio=490) CREATININE (BEAKER) (test 0.81 mg/dL 0.57-1.25 raps=188) GLUCOSE RANDOM (BEAKER) 264 mg/dL 70-105 (test devh=782) CALCIUM (BEAKER) (test 9.1 mg/dL 8.4-10.2 quck=458) EGFR (BEAKER) (test 75 mL/min/1.73 sq m ESTIMATED GFR IS NOT kwlm=8866) ACCURATE CREATININE CLEARANCE IN PREDICTING GLOMERULAR FILTRATION RATE. ESTIMATED GFR IS NOT APPLICABLE FOR DIALYSIS PATIENTS. POCT-GLUCOSE [id number] 08:42:00 Test Item Value Reference Range Comments POC-GLUCOSE METER (BEAKER) 259 mg/dL 70-110 TESTED AT [address] (test nybi=7992) [place] [id number] TROPONIN [id number] 06:14:00 Test Item Value Reference Range Comments TROPONIN I (BEAKER) (test ulkr=642) < ng/mL 0.00-0.03 Troponin I (TnI) levels [...] and persistent tachyarrhythmia.CBC W/PLT COUNT & AUTO [id number] 06:09:00 Test Item Value Reference Range Comments WHITE BLOOD CELL COUNT (BEAKER) (test uzva=341) 6.6 K/ L 3.5-10.5 RED BLOOD CELL COUNT (BEAKER) (test gpso=156) 4.40 M/ L 3.93-5.22 HEMOGLOBIN (BEAKER) (test kccp=974) 11.8 GM/DL 11.2-15.7 HEMATOCRIT (BEAKER) (test vjxk=621) 36.1 % 34.1-44.9 MEAN CORPUSCULAR VOLUME (BEAKER) (test vbyk=414) 82.0 fL 79.4-94.8 MEAN CORPUSCULAR HEMOGLOBIN (BEAKER) (test 26.8 pg 25.6-32.2 zgng=293) MEAN CORPUSCULAR HEMOGLOBIN CONC (BEAKER) (test 32.7 GM/DL 32.2-35.5 qcee=982) RED CELL DISTRIBUTION WIDTH (BEAKER) (test 13.2 % 11.7-14.4 fwmj=118) PLATELET COUNT (BEAKER) (test ibcw=969) 231 K/CU MM 150-450 MEAN PLATELET VOLUME (BEAKER) (test hlud=542) 10.9 fL 9.4-12.3 NUCLEATED RED BLOOD CELLS (BEAKER) (test 0 /100 WBC 0-0 ctqq=909) NEUTROPHILS RELATIVE PERCENT (BEAKER) (test 50 % fqzn=877) LYMPHOCYTES RELATIVE PERCENT (BEAKER) (test 41 % qcnf=860) MONOCYTES RELATIVE PERCENT (BEAKER) (test 6 % sjyj=717) EOSINOPHILS RELATIVE PERCENT (BEAKER) (test 2 % dodb=509) BASOPHILS RELATIVE PERCENT (BEAKER) (test 1 % agfc=977) NEUTROPHILS ABSOLUTE COUNT (BEAKER) (test 3.34 K/ L 1.56-6.13 cfnb=659) LYMPHOCYTES ABSOLUTE COUNT (BEAKER) (test 2.67 K/ L 1.18-3.74 mokn=692) MONOCYTES ABSOLUTE COUNT (BEAKER) (test 0.40 K/ L 0.24-0.36 wyso=530) EOSINOPHILS ABSOLUTE COUNT (BEAKER) (test 0.15 K/ L 0.04-0.36 qhvm=156) BASOPHILS ABSOLUTE COUNT (BEAKER) (test 0.03 K/ L 0.01-0.08 ylge=844) IMMATURE GRANULOCYTES-RELATIVE PERCENT (BEAKER) 0 % 0-1 (test esjl=1431) RAD, CHEST, 1 VIEW, NON [id number] 04:23:00Reason for exam:->chest painShould this be performed at the bedside?->YesFINAL REPORT Comparison examination: None No pneumothorax, focal pulmonary consolidation, or significant pleural effusion. Normal cardiomediastinal contours. Normal skeleton and soft tissues. Impression: No acute abnormality. Signed: Ervin Jenkins Verified Date/Time: 08/30/2017 04:23 :04 Reading Location: [address] Reading Room POCT-GLUCOSE [id number] 21:18:00 Test Item Value Reference Range Comments POC-GLUCOSE METER (BEAKER) 151 mg/dL 70-110 TESTED AT [address] (test zjmm=1167) [facility] [address] POCT-GLUCOSE [id number] 17:59:00 Test Item Value Reference Range Comments POC-GLUCOSE METER (BEAKER) 146 mg/dL 70-[address] [facility] [address] [facility] (test viwi=1565) [facility] [address] HEMOGLOBIN [id number] 15:56:00 Test Item Value Reference Range Comments HEMOGLOBIN A1C (BEAKER) (test poth=941) 13.7 % 4.3-6.1 CT, BRAIN, WITHOUT [id number] 14:52:00FINAL REPORT CT head without contrast. Comparisons: [...] Verified Date/Time: 08/29/2017 14:52:09 Reading Location: [address] Neuro Reading Room POCT-GLUCOSE [id number] 14:17:00 Test Item Value Reference Range Comments POC-GLUCOSE METER (BEAKER) 423 mg/dL 70-110 Notified NAT OSUZA/TESTED AT [facility] (test nndt=2897) [address] [facility] [address] VITAMIN [id number] 06:48:00 Test Item Value Reference Range Comments VITAMIN B12 (BEAKER) (test cvnm=708) 300 pg/mL 213-816 TSH/FREE T4 IF [id number] 06:48:00 Test Item Value Reference Range Comments THYROID STIMULATING HORMONE (BEAKER) (test 1.55 uIU/mL 0.35-4.94 oysq=315) CBC W/PLT COUNT & AUTO [id number] 05:10:00 Test Item Value Reference Range Comments WHITE BLOOD CELL COUNT (BEAKER) (test nguj=305) 8.6 K/ L 3.5-10.5 RED BLOOD CELL COUNT (BEAKER) (test bbex=905) 4.62 M/ L 3.93-5.22 HEMOGLOBIN (BEAKER) (test nzwl=617) 12.2 GM/DL 11.2-15.7 HEMATOCRIT (BEAKER) (test qtjx=527) 42.2 % 34.1-44.9 MEAN CORPUSCULAR VOLUME (BEAKER) (test htcj=748) 91.3 fL 79.4-94.8 MEAN CORPUSCULAR HEMOGLOBIN (BEAKER) (test 26.4 pg 25.6-32.2 rbkl=911) MEAN CORPUSCULAR HEMOGLOBIN CONC (BEAKER) (test 28.9 GM/DL 32.2-35.5 qsfv=733) RED CELL DISTRIBUTION WIDTH (BEAKER) (test 13.2 % 11.7-14.4 fqlz=087) PLATELET COUNT (BEAKER) (test dmnd=321) 80 K/CU MM 150-450 MEAN PLATELET VOLUME (BEAKER) (test mgzx=320) 10.9 fL 9.4-12.3 NUCLEATED RED BLOOD CELLS (BEAKER) (test 0 /100 WBC 0-0 twyz=501) NEUTROPHILS RELATIVE PERCENT (BEAKER) (test 45 % zjou=776) LYMPHOCYTES RELATIVE PERCENT (BEAKER) (test 46 % mcpq=563) MONOCYTES RELATIVE PERCENT (BEAKER) (test 6 % vcyw=638) EOSINOPHILS RELATIVE PERCENT (BEAKER) (test 2 % kwqb=869) BASOPHILS RELATIVE PERCENT (BEAKER) (test 1 % ejck=507) NEUTROPHILS ABSOLUTE COUNT (BEAKER) (test 3.91 K/ L 1.56-6.13 oyvk=776) LYMPHOCYTES ABSOLUTE COUNT (BEAKER) (test 3.95 K/ L 1.18-3.74 eprq=458) MONOCYTES ABSOLUTE COUNT (BEAKER) (test zhfw=056) 0.54 K/ L 0.24-0.36 EOSINOPHILS ABSOLUTE COUNT (BEAKER) (test 0.13 K/ L 0.04-0.36 wvji=297) BASOPHILS ABSOLUTE COUNT (BEAKER) (test ijrg=691) 0.07 K/ L 0.01-0.08 IMMATURE GRANULOCYTES-RELATIVE PERCENT (BEAKER) 0 % 0-1 (test ckuj=9771) URINALYSIS W/ [id number] 23:32:00 Test Item Value Reference Range Comments COLOR (BEAKER) (test pubg=177) Brown CLARITY (BEAKER) (test makf=179) Hazy SPECIFIC GRAVITY UA (BEAKER) (test drur=141) 1.016 1.001-1.035 PH UA (BEAKER) (test nzap=163) 5.0 5.0-8.0 PROTEIN UA (BEAKER) (test xusc=435) 30 mg/dL Negative GLUCOSE UA (BEAKER) (test ojzx=160) 300 mg/dL Negative KETONES UA (BEAKER) (test hkxh=481) Negative Negative BILIRUBIN UA (BEAKER) (test leqa=369) Positive Negative BLOOD UA (BEAKER) (test pphi=753) Negative Negative NITRITE UA (BEAKER) (test vgcn=836) Positive Negative LEUKOCYTE ESTERASE UA (BEAKER) (test whif=498) Small Negative UROBILINOGEN UA (BEAKER) (test mdpq=768) 3.0 mg/dL 0.2-1.0 RBC UA (BEAKER) (test kzaa=297) 2 /HPF WBC UA (BEAKER) (test peme=904) 24 /HPF BACTERIA (BEAKER) (test xotk=618) Many MUCUS (BEAKER) (test bgxt=7448) Rare SQUAMOUS EPITHELIAL (BEAKER) (test fuzj=763) 7 /HPF HYALINE CASTS (BEAKER) (test gyts=399) 16 /LPF CASTS (BEAKER) (test rtac=7026) 16 /LPF YEAST (BEAKER) (test cyxs=0369) Occasional SOURCE(BEAKER) (test xhtp=3743) TROPONIN [id number] 23:12:00 Test Item Value Reference Range Comments TROPONIN I (BEAKER) (test vxnh=895) < ng/mL 0.00-0.03 Troponin I (TnI) levels [...] acute neurological disease, and persistent tachyarrhythmia.BASIC METABOLIC [id number] 23:05:00 Test Item Value Reference Range Comments SODIUM (BEAKER) (test 128 meq/L 136-145 asrf=063) POTASSIUM (BEAKER) (test 4.9 meq/L 3.5-5.1 Specimen moderately aujd=089) hemolyzed CHLORIDE (BEAKER) (test 100 meq/L 98-107 fmlt=027) CO2 (BEAKER) (test 13 meq/L 22-29 hmuo=808) BLOOD UREA NITROGEN 29 mg/dL 7-21 (BEAKER) (test wvwk=746) CREATININE (BEAKER) (test 1.55 mg/dL 0.57-1.25 Specimen moderately esoi=206) hemolyzed GLUCOSE RANDOM (BEAKER) 326 mg/dL 70-105 (test hctf=945) CALCIUM (BEAKER) (test 9.6 mg/dL 8.4-10.2 reua=788) EGFR (BEAKER) (test 36 mL/min/1.73 sq m ESTIMATED GFR IS NOT jzcx=3808) ACCURATE CREATININE CLEARANCE IN PREDICTING GLOMERULAR FILTRATION RATE. ESTIMATED GFR IS NOT APPLICABLE FOR DIALYSIS PATIENTS. POCT-GLUCOSE [id number] 20:49:00 Test Item Value Reference Range Comments POC-GLUCOSE METER (BEAKER) 376 mg/dL 70-110 Notified NAT SOUZA/TESTED AT [facility] (test dsek=1855) [address] [place] [address]
[2018-09-26] MEDS ORDERED: HYDROCODONE/APAP 10/325 TAB ONE (07:51)
--- NOTE | 2018-09-26 08:17 | RAD REPORT ---
EXAM DESCRIPTION: US - Extremity Venous Uni Ltd - 09/26/2018 8:05 am CLINICAL HISTORY: PAIN Leg swelling and edema. COMPARISON: EXT VENOUS W COMPRESSION SILVIA dated 01/28/2015 FINDINGS: Left lower extremity venous system was interrogated with Doppler technique. Normal flow, c ompressibility and augmentation was noted. There is no DVT present. IMPRESSION: No evidence of left lower extremity deep venous thrombosis.
--- NOTE | 2018-09-26 08:25 | ER ---
Nurse's Notes [facility] Name: Elly Clarke Age: 48 yrs Sex: Female : 1970 Arrival Date: 09/26/2018 Time: 06:02 Bed 13 Private MD: Pavel Curran T Diagnosis: Pain in left foot Presentation: 09/26 06:36 Presenting complaint: Patient states: Pt states she woke up Thursday with foot pain that ea radiates up the leg. Denies injury. Transition of care: patient was not received from another setting of care. Onset of symptoms was September 26, 2018. Risk Assessment: Do you want to hurt yourself or someone else? Patient reports no desire to harm self or others. Initial Sepsis Screen: Does the patient meet any 2 criteria? No. Patient's initial sepsis screen is negative. Does the patient have a suspected source of infection? No. Patient's initial sepsis screen is negative. Care prior to arrival: None. 06:36 Method Of Arrival: Ambulatory ea 06:36 Acuity: HANNAH 4 ea Triage Assessment: 06:45 General: Appears in no apparent distress. ea Historical: - Allergies: 06:42 Claritin (insomnia); ea 06:42 Compazine (Seizures); ea 06:42 Demerol (HEART RACING); ea 06:42 (Hives); ea 06:42 Morphine (RACING HEART); ea 06:42 mushrooms; ea - Home Meds: 06:42 Abilify Oral [Active]; Celexa Oral [Active]; gabapentin Oral [Active]; tizanidine Oral ea BID [Active]; Metformin Oral [Active]; Klonopin 0.5 mg Oral tab 1 tab 2 times per day [Active]; - PMHx: 06:42 spinal stenosis; Pancreatitis; Migraines; Hypertension; High Cholesterol; ea Gastroparesis; Dramatic migraine events; Diabetes - NIDDM; Chronic pain; Chrohns; Arthritis; - PSHx: 06:42 Tonsillectomy; Cholecystectomy; Appendectomy; Hysterectomy; ea - Immunization history:: Adult Immunizations up to date. - Social history:: Smoking status: Patient/guardian denies using tobacco. - Ebola Screening: : No symptoms or risks identified at this time. Screenin:38 Abuse screen: Denies threats or abuse. Nutritional screening: No deficits noted. ea Tuberculosis screening: No symptoms or risk factors identified. Fall Risk None identified. Assessment: 06:43 General: Appears in no apparent distress. Behavior is calm, cooperative, appropriate ea for age. Pain: Complains of pain in left foot Pain radiates to left leg Quality of pain is described as stabbing. Neuro: Level of Consciousness is awake, alert, obeys commands, Oriented to person, place, time, situation. Cardiovascular: Patient's skin is warm and dry. Respiratory: Airway is patent Respiratory effort is even, unlabored, Respiratory pattern is regular, symmetrical. Derm: Skin is pink, warm \T\ dry. 07:00 General: Appears in no apparent distress. Behavior is calm, cooperative. Pain: rb1 Complains of pain in left foot Pain radiates to left leg Pain currently is 8 out of 10 on a pain scale. Quality of pain is described as stabbing. Neuro: Level of Consciousness is awake, alert, obeys commands, Oriented to person, place, time, situation. Cardiovascular: Capillary refill < 3 seconds is brisk. Respiratory: Airway is patent Respiratory effort is even, unlabored, Respiratory pattern is regular, symmetrical. GI: No signs and/or symptoms were reported involving the gastrointestinal system. : No signs and/or symptoms were reported regarding the genitourinary system. Derm: Skin is pink, warm \T\ dry. 07:00 Musculoskeletal: Range of motion: intact in all extremities. rb1 07:45 Reassessment: US is at the pt. bedside. rb1 08:00 Reassessment: Patient appears in no apparent distress at this time. No changes from rb1 previously documented assessment. 08:30 Reassessment: Patient appears in no apparent distress at this time. Patient and/or rb1 family updated on plan of care and expected duration. Pain level reassessed. Patient is alert, oriented x 3, equal unlabored respirations, skin warm/dry/pink. pain 7/10. Vital Signs: 06:42 BP 188 / 108; Pulse 85; Resp 18; Pulse Ox 98% on R/A; Weight 91.17 kg; Height 5 ft. 7 ea in. (170.18 cm); 07:30 BP 173 / 105; Pulse 80; Resp 17; Pulse Ox 96% on R/A; Pain 8/10; rb1 08:30 BP 172 / 105; Pulse 82; Resp 16; Temp 98.3(O); Pulse Ox 97% on R/A; Pain 7/10; rb1 06:42 Body Mass Index 31.48 (91.17 kg, 170.18 cm) ea ED Course: 06:02 Patient arrived in ED. do 06:02 Pavel Curran MD is Private Physician. do 06:07 Kari Walker FNP-C is [facility]. kb 06:07 Norman Pollack MD is Attending Physician. kb 06:37 Triage completed. ea 06:37 Patient has correct armband on for positive identification. Bed in low position. Call ea light in reach. Side rails up X 1. 06:37 Arm band placed on right wrist. Patient placed in an exam room, on a stretcher, on ea pulse oximetry. 07:34 Hortensia Ryder, RN is Primary Nurse. rb1 08:05 Ultrasound completed. Patient tolerated well. Notified ACCOUNTING ADMINISTRATOR/PA KARI. sg3 08:07 US Extremity Venous Unilateral Ltd In Process Unspecified. EDMS 08:24 Pavel Curran MD is Referral Physician. kb 08:45 No provider procedures requiring assistance completed. Patient did not have IV access rb1 during this emergency room visit. Administered Medications: 07:45 Drug: [place] 10 mg-325 mg 1 tabs Route: PO; rb1 08:30 Follow up: Response: No adverse reaction; Pain is decreased rb1 Outcome: 08:25 Discharge ordered by MD. kb 08:45 Discharged to home ambulatory. rb1 08:45 Condition: stable 08:45 Discharge instructions given to patient, Instructed on discharge instructions, follow up and referral plans. medication usage, Demonstrated understanding of instructions, follow-up care, medications, Prescriptions given X 1. 08:46 Patient left the ED. rb1 Signatures: Dispatcher [employer] EDTX Kari Walker FNP-C FNP-Hortensia Castillo RN Shavonne Andrade Elena, RN RN ea Godinez, Sarah sg3 Corrections: (The following items were deleted from the chart) 07:48 07:00 : No signs and/or symptoms were reported regarding the genitourinary system. [id number]
--- NOTE | 2018-09-26 08:26 | EDPHYS ---
Physician Documentation [facility] Name: Elly Clarke Age: 48 yrs Sex: Female : 1970 Arrival Date: 09/26/2018 Time: 06:02 Bed 13 Private MD: Pavel Curran T ED Physician Norman Pollack HPI: 09/26 06:47 This 48 yrs old Female presents to ER via Ambulatory with complaints of Foot kb Pain, Leg Pain. 06:47 The patient presents with pain, that is acute. The complaints affect the left foot. kb Context: The problem was sustained at home, resulted from an unknown cause, the patient can fully bear weight, the patient is able to ambulate, without difficulty. Onset: The symptoms/episode began/occurred 6 day(s) ago. Modifying factors: The symptoms are alleviated by nothing, the symptoms are aggravated by nothing. Associated signs and symptoms: The patient has no apparent associated signs or symptoms. Severity of symptoms: At their worst the symptoms were moderate, in the emergency department the symptoms are unchanged. The patient has not experienced similar symptoms in the past. The patient has not recently seen a physician. Pt reports she woke up with left foot pain on Thursday. States the pain is intermittent and radiates up leg. Reports when the pain comes on it feels like a hammer to the foot or like she's being electrocuted. Denies injury or trauma. Has not had this pain before. 06:52 Has tramadol from pain management that she has been taking without relief. kb Historical: - Allergies: 06:42 Claritin (insomnia); ea 06:42 Compazine (Seizures); ea 06:42 Demerol (HEART RACING); ea 06:42 (Hives); ea 06:42 Morphine (RACING HEART); ea 06:42 mushrooms; ea - Home Meds: 06:42 Abilify Oral [Active]; Celexa Oral [Active]; gabapentin Oral [Active]; tizanidine Oral ea BID [Active]; Metformin Oral [Active]; Klonopin 0.5 mg Oral tab 1 tab 2 times per day [Active]; - PMHx: 06:42 spinal stenosis; Pancreatitis; Migraines; Hypertension; High Cholesterol; ea Gastroparesis; Dramatic migraine events; Diabetes - NIDDM; Chronic pain; Chrohns; Arthritis; - PSHx: 06:42 Tonsillectomy; Cholecystectomy; Appendectomy; Hysterectomy; ea - Immunization history:: Adult Immunizations up to date. - Social history:: Smoking status: Patient/guardian denies using tobacco. - Ebola Screening: : No symptoms or risks identified at this time. ROS: 06:47 Constitutional: Negative for fever, chills, and weight loss, Neck: Negative for injury, kb pain, and swelling, Cardiovascular: Negative for chest pain, palpitations, and edema, Respiratory: Negative for shortness of breath, cough, wheezing, and pleuritic chest pain, Abdomen/GI: Negative for abdominal pain, nausea, vomiting, diarrhea, and constipation, Back: Negative for injury and pain, Skin: Negative for injury, rash, and discoloration, Neuro: Negative for headache, weakness, numbness, tingling, and seizure. 06:47 MS/extremity: Positive for pain, of the left foot. Exam: 06:47 Constitutional: This is a well developed, well nourished patient who is awake, alert, kb and in no acute distress. Head/Face: Normocephalic, atraumatic. Neck: Trachea midline, no thyromegaly or masses palpated, and no cervical lymphadenopathy. Supple, full range of motion without nuchal rigidity, or vertebral point tenderness. No Meningismus. Chest/axilla: Normal chest wall appearance and motion. Nontender with no deformity. No lesions are appreciated. Cardiovascular: Regular rate and rhythm with a normal S1 and S2. No gallops, murmurs, or rubs. Normal PMI, no JVD. No pulse deficits. Respiratory: Lungs have equal breath sounds bilaterally, clear to auscultation and percussion. No rales, rhonchi or wheezes noted. No increased work of breathing, no retractions or nasal flaring. Abdomen/GI: Soft, non-tender, with normal bowel sounds. No distension or tympany. No guarding or rebound. No evidence of tenderness throughout. Back: No spinal tenderness. No costovertebral tenderness. Full range of motion. Skin: Warm, dry with normal turgor. Normal color with no rashes, no lesions, and no evidence of cellulitis. MS/ Extremity: Pulses equal, no cyanosis. Neurovascular intact. Full, normal range of motion. Neuro: Awake and alert, GCS 15, oriented to person, place, time, and situation. Cranial nerves II-XII grossly intact. Motor strength 5/5 in all extremities. Sensory grossly intact. Cerebellar exam normal. Normal gait. Vital Signs: 06:42 BP 188 / 108; Pulse 85; Resp 18; Pulse Ox 98% on R/A; Weight 91.17 kg; Height 5 ft. 7 ea in. (170.18 cm); 07:30 BP 173 / 105; Pulse 80; Resp 17; Pulse Ox 96% on R/A; Pain 8/10; rb1 08:30 BP 172 / 105; Pulse 82; Resp 16; Temp 98.3(O); Pulse Ox 97% on R/A; Pain 7/10; rb1 06:42 Body Mass Index 31.48 (91.17 kg, 170.18 cm) ea MDM: 06:26 Patient medically screened. kb 06:52 Data reviewed: vital signs, nurses notes. Data interpreted: Pulse oximetry: on room air kb is 98 %. Interpretation: normal. 08:24 Counseling: I had a detailed discussion with the patient and/or guardian regarding: the kb historical points, exam findings, and any diagnostic results supporting the discharge/admit diagnosis, radiology results, the need for outpatient follow up, a family practitioner, to return to the emergency department if symptoms worsen or persist or if there are any questions or concerns that arise at home. 06 06:26 Order name: US Extremity Venous Unilateral Ltd; Complete Time: 08:24 kb Administered Medications: 07:45 Drug: [place] 10 mg-325 mg 1 tabs Route: PO; rb1 08:30 Follow up: Response: No adverse reaction; Pain is decreased rb1 Disposition: 19:37 Co-signature as Attending Physician, Norman Pollack MD. Disposition: 09/26/18 08:25 Discharged to Home. Impression: Pain in left foot. - Condition is Stable. - Discharge Instructions: Foot Pain. - Prescriptions for Neurontin 300 mg Oral Capsule - take 1 capsule by ORAL route At bedtime; 20 capsule. - Medication Reconciliation Form, Thank You Letter, Antibiotic Education, Prescription Opioid Use form. - Follow up: Emergency Department; When: As needed; Reason: Worsening of condition. Follow up: Pavel Curran MD; When: 2 - 3 days; Reason: Recheck today's complaints, Continuance of care, Re-evaluation by your physician. Signatures: Dispatcher [employer] EDMS Cookie Walker, JAQUAN-C BATCH WEIGHER-Hortensia Castillo, RN RN Ruthann Guevara RN RN ea Starr, Gregory, MD MD gs Corrections: (The following items were deleted from the chart) 08:46 08:25 09/26/2018 08:25 Discharged to Home. Impression: Pain in left foot. Condition is rb1 Stable. Forms are Medication Reconciliation Form, Thank You Letter, Antibiotic Education, Prescription Opioid Use. Follow up: Emergency Department; When: As needed; Reason: Worsening of condition. Follow up: Pavel Curran; When: 2 - 3 days; Reason: Recheck today's complaints, Continuance of care, Re-evaluation by your physician. kb
== END 2018-09-26 08:46 | disposition home or self-care (01) ==
LOC: ER 05:58
DX: M79.672 Pain in left foot (principal); I10 Essential (primary) hypertension; E78.00 Pure hypercholesterolemia, unspecified; E11.9 Type 2 diabetes mellitus without complications; K50.90 Crohn's disease, unspecified, without complications; Z88.5 Allergy status to narcotic agent; Z88.8 Allergy status to other drugs, medicaments and biological substances; Z79.84 Long term (current) use of oral hypoglycemic drugs
CPT/HCPCS: 93971; 99284

== ENCOUNTER 2018-11-13 21:06 | Emergency (ER) | payer OTHER ==
--- OUTSIDE RECORDS SUMMARY | 2018-11-13 21:08 | XMS REPORT | Clinical Summary ---
:1970 Author Organization [facility] [employer] Address [address] [place] [address] Care Team Providers Name Role Phone Pavel Curran MD Primary Care Provider Allergies Active Allergy Reactions Severity Noted Date Comments Loratadine-Pseudoephedrine Other (See Comments) 08/28/2017 hyperactivity Prochlorperazine Other (See Comments) 08/28/2017 Seizures Meperidine Rash Low 08/28/2017 Obzttztpf-Ajvfag-Uorhmktj-Scop Itching, Rash Low 08/28/2017 Morphine Rash Low 08/28/2017 Medications Medication Sig Dispensed Refills Start Date End Date Status traMADol (ULTRAM) 50 Take 50 mg by 0 Active mg tablet mouth 2 (two) times daily. butorphanol (STADOL) 1 spray by 0 Active 10 mg/mL nasal spray Nasal route every 4 (four) hours as needed for Pain. amitriptyline Take 10 mg by 0 Active (ELAVIL) 10 MG tablet mouth nightly. tiZANidine (ZANAFLEX) Take 4 mg by 0 Active 2 MG tablet mouth every 6 (six) hours as needed. aspirin 81 MG Take 1 tablet 30 tablet 11 09/02/2017 09/02/2018 chewable tablet (81 mg total) by mouth daily. atorvastatin Take 1 tablet 30 tablet 09/01/2017 09/01/2018 (LIPITOR) 20 MG (20 mg total) tablet by mouth nightly. gabapentin Take 1 capsule 90 capsule 09/01/2017 09/01/2018 (NEURONTIN) 300 MG (300 mg total) capsule by mouth 3 (three) times daily. Active Problems Problem Noted Date Left sided [...] Not on file Results Not on fileafter 11/12/2017 Insurance Payer Benefit Plan / Subscriber ID Type Phone Address Group BLUE CROSS/BLUE [employer] PPO POS EPO xxxxxxxxxxxx PPO [phone] [address] [place] [address] (Home) [place] [address] Advance Directives For more information, please contact:[address] [phone] Code Status Date Activated Date Inactivated Comments Full Code 08/28/2017 9:21 PM 09/01/2017 8:22 PM This code status was determined by: Patient
--- OUTSIDE RECORDS SUMMARY | 2018-11-13 21:09 | XMS REPORT ---
:1970 Author Organization [facility] Address [address] [place] [address] Dr. Kumar [address] [place] [address] Care Team Providers Name Role Phone HARINI [...] (BEAKER) (test 298 mg/dL 70-110 TESTED AT [address] wlbq=8356) [place] [id number] POCT-GLUCOSE [id number] 12:11:00 Test Item Value Reference Range Comments POC-GLUCOSE METER (BEAKER) 331 mg/dL 70-110 Notified NAT SOUZA/TESTED AT [facility] (test jxnv=1130) [address] [place], [place] [id number] POCT-GLUCOSE [id number] 10:55:00 Test Item Value Reference Range Comments POC-GLUCOSE METER (BEAKER) 365 mg/dL 70-110 TESTED AT [address] (test rfxt=0646) [place] [id number] POCT-GLUCOSE [id number] 08:44:00 Test Item Value Reference Range Comments POC-GLUCOSE METER (BEAKER) 291 mg/dL 70-110 TESTED AT [address] (test qfik=5362) [place] [address] LIPID [id number] 05:56:00 Test Item Value Reference Range Comments TRIGLYCERIDES (BEAKER) (test sboo=480) 279 mg/dL CHOLESTEROL (BEAKER) (test geup=362) 119 mg/dL HDL CHOLESTEROL (BEAKER) (test dgdw=988) 22 mg/dL LDL CHOLESTEROL CALCULATED (BEAKER) (test 41 mg/dL nqtj=685) Triglyceride Reference Range: Low Risk <150 Borderline 150- 199 High Risk 200-499 Very High Risk >=500Cholesterol Reference Range: Low Risk <200 Borderline 200-239 High Risk > 240HDL Cholesterol Reference Range: Low Risk >=60 High Risk <40LDL Cholesterol Reference Range: Optimal <100 Near Optimal 100-129 Borderline 130-159 High 160-189 Very High >=190POCT-GLUCOSE [id number] 21:50:00 Test Item Value Reference Range Comments POC-GLUCOSE METER (BEAKER) 318 mg/dL 70-110 TESTED AT [address] (test snjn=9457) [place] [id number] POCT-GLUCOSE [id number] 18:04:00 Test Item Value Reference Range Comments POC-GLUCOSE METER (BEAKER) 238 mg/dL 70-110 TESTED AT [address] (test pzek=1225) [facility] [address] POCT-GLUCOSE [id number] 12:22:00 Test Item Value Reference Range Comments POC-GLUCOSE METER (BEAKER) 290 mg/dL 70-110 TESTED AT [address] (test tugf=0388) [facility] [address] POCT-GLUCOSE [id number] 09:20:00 Test Item Value Reference Range Comments POC-GLUCOSE METER (BEAKER) 293 mg/dL 70-110 TESTED AT [address] (test ctsp=3724) [place] [id number] POCT-GLUCOSE [id number] 21:00:00 Test Item Value Reference Range Comments POC-GLUCOSE METER (BEAKER) 225 mg/dL 70-110 TESTED AT [address] (test zaww=6261) [facility] [address] CT, CAROTID, [id number] 18:01:00FINAL REPORT CT angiogram of the upper [...] Petersen Verified Date/Time: 08/30/2017 18:01:31 Reading Location: [address] Neuro Reading Room [facility] [id number] 18:01:00FINAL REPORT CT angiogram of the upper [...] Unremarkable CTA upper chest, neck, head. Signed: Iqar Peterseneport Verified Date/Time: 08/30/2017 18:01:31 Reading Location: [facility] C013V Neuro Reading Room POCT-GLUCOSE [id number] 17:21: 00 Test Item Value Reference Range Comments POC-GLUCOSE METER (BEAKER) 256 mg/dL 70-110 TESTED AT [address] (test qrza=4301) [place] [address] POCT-GLUCOSE [id number] 12:00:00 Test Item Value Reference Range Comments POC-GLUCOSE METER (BEAKER) 289 mg/dL 70-110 TESTED AT [address] (test yeon=5919) [place] [address] BASIC METABOLIC [id number] 10:12:00 Test Item Value Reference Range Comments SODIUM (BEAKER) (test 137 meq/L 136-145 hleh=260) POTASSIUM (BEAKER) (test 4.1 meq/L 3.5-5.1 pxft=686) CHLORIDE (BEAKER) (test 106 meq/L 98-107 lfqv=989) CO2 (BEAKER) (test 24 meq/L 22-29 qnce=813) BLOOD UREA NITROGEN 11 mg/dL 7-21 (BEAKER) (test bpus=495) CREATININE (BEAKER) (test 0.81 mg/dL 0.57-1.25 lkrc=177) GLUCOSE RANDOM (BEAKER) 264 mg/dL 70-105 (test eduk=927) CALCIUM (BEAKER) (test 9.1 mg/dL 8.4-10.2 tnwv=787) EGFR (BEAKER) (test 75 mL/min/1.73 sq m ESTIMATED GFR IS NOT aflz=9958) ACCURATE CREATININE CLEARANCE IN PREDICTING GLOMERULAR FILTRATION RATE. ESTIMATED GFR IS NOT APPLICABLE FOR DIALYSIS PATIENTS. POCT-GLUCOSE [id number] 08:42:00 Test Item Value Reference Range Comments POC-GLUCOSE METER (BEAKER) 259 mg/dL 70-110 TESTED AT [address] (test irge=9828) [place] [id number] TROPONIN [id number] 06:14:00 Test Item Value Reference Range Comments TROPONIN I (BEAKER) (test nebz=498) < ng/mL 0.00-0.03 Troponin I (TnI) levels [...] and persistent tachyarrhythmia.CBC W/PLT COUNT & AUTO [id number] 06:09:00 Test Item Value Reference Range Comments WHITE BLOOD CELL COUNT (BEAKER) (test peeo=147) 6.6 K/ L 3.5-10.5 RED BLOOD CELL COUNT (BEAKER) (test srfu=144) 4.40 M/ L 3.93-5.22 HEMOGLOBIN (BEAKER) (test wrtz=674) 11.8 GM/DL 11.2-15.7 HEMATOCRIT (BEAKER) (test ujon=042) 36.1 % 34.1-44.9 MEAN CORPUSCULAR VOLUME (BEAKER) (test hgak=717) 82.0 fL 79.4-94.8 MEAN CORPUSCULAR HEMOGLOBIN (BEAKER) (test 26.8 pg 25.6-32.2 fhkt=677) MEAN CORPUSCULAR HEMOGLOBIN CONC (BEAKER) (test 32.7 GM/DL 32.2-35.5 crpz=806) RED CELL DISTRIBUTION WIDTH (BEAKER) (test 13.2 % 11.7-14.4 fxmg=102) PLATELET COUNT (BEAKER) (test shiz=804) 231 K/CU MM 150-450 MEAN PLATELET VOLUME (BEAKER) (test qpei=225) 10.9 fL 9.4-12.3 NUCLEATED RED BLOOD CELLS (BEAKER) (test 0 /100 WBC 0-0 jzge=486) NEUTROPHILS RELATIVE PERCENT (BEAKER) (test 50 % tzlo=935) LYMPHOCYTES RELATIVE PERCENT (BEAKER) (test 41 % xncg=860) MONOCYTES RELATIVE PERCENT (BEAKER) (test 6 % uktf=879) EOSINOPHILS RELATIVE PERCENT (BEAKER) (test 2 % ajbw=657) BASOPHILS RELATIVE PERCENT (BEAKER) (test 1 % nbvu=370) NEUTROPHILS ABSOLUTE COUNT (BEAKER) (test 3.34 K/ L 1.56-6.13 xmap=336) LYMPHOCYTES ABSOLUTE COUNT (BEAKER) (test 2.67 K/ L 1.18-3.74 pggw=408) MONOCYTES ABSOLUTE COUNT (BEAKER) (test 0.40 K/ L 0.24-0.36 zcvc=970) EOSINOPHILS ABSOLUTE COUNT (BEAKER) (test 0.15 K/ L 0.04-0.36 xjgh=550) BASOPHILS ABSOLUTE COUNT (BEAKER) (test 0.03 K/ L 0.01-0.08 fggn=973) IMMATURE GRANULOCYTES-RELATIVE PERCENT (BEAKER) 0 % 0-1 (test abfo=3939) RAD, CHEST, 1 VIEW, NON [id number] 04:23:00Reason for exam:->chest painShould this be performed at the bedside?->YesFINAL REPORT Comparison examination: None No pneumothorax, focal pulmonary consolidation, or significant pleural effusion. Normal cardiomediastinal contours. Normal skeleton and soft tissues. Impression: No acute abnormality. Signed: Ervin Jenkins Verified Date/Time: 08/30/2017 04:23 :04 Reading Location: [address] Reading Room POCT-GLUCOSE [id number] 21:18:00 Test Item Value Reference Range Comments POC-GLUCOSE METER (BEAKER) 151 mg/dL 70-110 TESTED AT [address] (test ewui=5889) [facility] [address] POCT-GLUCOSE [id number] 17:59:00 Test Item Value Reference Range Comments POC-GLUCOSE METER (BEAKER) 146 mg/dL 70-[address] [facility] [address] [facility] (test rexg=8403) [facility] [address] HEMOGLOBIN [id number] 15:56:00 Test Item Value Reference Range Comments HEMOGLOBIN A1C (BEAKER) (test naek=079) 13.7 % 4.3-6.1 CT, BRAIN, WITHOUT [id number] 14:52:00FINAL REPORT CT head without contrast. Comparisons: [...] Petersen Verified Date/Time: 08/29/2017 14:52:09 Reading Location: [address] Neuro Reading Room POCT-GLUCOSE [id number] 14:17:00 Test Item Value Reference Range Comments POC-GLUCOSE METER (BEAKER) 423 mg/dL 70-110 Notified NAT SOUZA/TESTED AT [facility] (test louj=8942) [address] [facility] [address] VITAMIN [id number] 06:48:00 Test Item Value Reference Range Comments VITAMIN B12 (BEAKER) (test gope=525) 300 pg/mL 213-816 TSH/FREE T4 IF [id number] 06:48:00 Test Item Value Reference Range Comments THYROID STIMULATING HORMONE (BEAKER) (test 1.55 uIU/mL 0.35-4.94 cujl=044) CBC W/PLT COUNT & AUTO [id number] 05:10:00 Test Item Value Reference Range Comments WHITE BLOOD CELL COUNT (BEAKER) (test cejo=366) 8.6 K/ L 3.5-10.5 RED BLOOD CELL COUNT (BEAKER) (test ovcn=638) 4.62 M/ L 3.93-5.22 HEMOGLOBIN (BEAKER) (test piby=698) 12.2 GM/DL 11.2-15.7 HEMATOCRIT (BEAKER) (test nvdw=749) 42.2 % 34.1-44.9 MEAN CORPUSCULAR VOLUME (BEAKER) (test mhgz=944) 91.3 fL 79.4-94.8 MEAN CORPUSCULAR HEMOGLOBIN (BEAKER) (test 26.4 pg 25.6-32.2 mxvs=365) MEAN CORPUSCULAR HEMOGLOBIN CONC (BEAKER) (test 28.9 GM/DL 32.2-35.5 xnvx=424) RED CELL DISTRIBUTION WIDTH (BEAKER) (test 13.2 % 11.7-14.4 cguv=693) PLATELET COUNT (BEAKER) (test lefz=832) 80 K/CU MM 150-450 MEAN PLATELET VOLUME (BEAKER) (test bpxe=080) 10.9 fL 9.4-12.3 NUCLEATED RED BLOOD CELLS (BEAKER) (test 0 /100 WBC 0-0 ztaw=418) NEUTROPHILS RELATIVE PERCENT (BEAKER) (test 45 % jxue=274) LYMPHOCYTES RELATIVE PERCENT (BEAKER) (test 46 % zmsg=151) MONOCYTES RELATIVE PERCENT (BEAKER) (test 6 % thfx=014) EOSINOPHILS RELATIVE PERCENT (BEAKER) (test 2 % mega=705) BASOPHILS RELATIVE PERCENT (BEAKER) (test 1 % oxmc=283) NEUTROPHILS ABSOLUTE COUNT (BEAKER) (test 3.91 K/ L 1.56-6.13 vbva=252) LYMPHOCYTES ABSOLUTE COUNT (BEAKER) (test 3.95 K/ L 1.18-3.74 cadk=491) MONOCYTES ABSOLUTE COUNT (BEAKER) (test bzek=213) 0.54 K/ L 0.24-0.36 EOSINOPHILS ABSOLUTE COUNT (BEAKER) (test 0.13 K/ L 0.04-0.36 gxiz=602) BASOPHILS ABSOLUTE COUNT (BEAKER) (test tntu=790) 0.07 K/ L 0.01-0.08 IMMATURE GRANULOCYTES-RELATIVE PERCENT (BEAKER) 0 % 0-1 (test chxh=5089) URINALYSIS W/ [id number] 23:32:00 Test Item Value Reference Range Comments COLOR (BEAKER) (test mxcg=010) Brown CLARITY (BEAKER) (test hmxk=873) Hazy SPECIFIC GRAVITY UA (BEAKER) (test xqin=070) 1.016 1.001-1.035 PH UA (BEAKER) (test mywb=590) 5.0 5.0-8.0 PROTEIN UA (BEAKER) (test rjbj=111) 30 mg/dL Negative GLUCOSE UA (BEAKER) (test ercn=992) 300 mg/dL Negative KETONES UA (BEAKER) (test rhxr=652) Negative Negative BILIRUBIN UA (BEAKER) (test vliv=619) Positive Negative BLOOD UA (BEAKER) (test apwk=953) Negative Negative NITRITE UA (BEAKER) (test bqzx=582) Positive Negative LEUKOCYTE ESTERASE UA (BEAKER) (test csnw=350) Small Negative UROBILINOGEN UA (BEAKER) (test ivjj=666) 3.0 mg/dL 0.2-1.0 RBC UA (BEAKER) (test kcis=727) 2 /HPF WBC UA (BEAKER) (test lcuo=761) 24 /HPF BACTERIA (BEAKER) (test jljs=028) Many MUCUS (BEAKER) (test rddq=1801) Rare SQUAMOUS EPITHELIAL (BEAKER) (test yqfc=015) 7 /HPF HYALINE CASTS (BEAKER) (test jsnp=621) 16 /LPF CASTS (BEAKER) (test qrzs=9676) 16 /LPF YEAST (BEAKER) (test zlhn=4284) Occasional SOURCE(BEAKER) (test wndq=7496) TROPONIN [id number] 23:12:00 Test Item Value Reference Range Comments TROPONIN I (BEAKER) (test wwon=976) < ng/mL 0.00-0.03 Troponin I (TnI) levels [...] acute neurological disease, and persistent tachyarrhythmia.BASIC METABOLIC [id number] 23:05:00 Test Item Value Reference Range Comments SODIUM (BEAKER) (test 128 meq/L 136-145 llao=679) POTASSIUM (BEAKER) (test 4.9 meq/L 3.5-5.1 Specimen moderately eadm=294) hemolyzed CHLORIDE (BEAKER) (test 100 meq/L 98-107 orae=831) CO2 (BEAKER) (test 13 meq/L 22-29 gqrc=497) BLOOD UREA NITROGEN 29 mg/dL 7-21 (BEAKER) (test jrew=273) CREATININE (BEAKER) (test 1.55 mg/dL 0.57-1.25 Specimen moderately tzqd=813) hemolyzed GLUCOSE RANDOM (BEAKER) 326 mg/dL 70-105 (test okvy=441) CALCIUM (BEAKER) (test 9.6 mg/dL 8.4-10.2 idcm=469) EGFR (BEAKER) (test 36 mL/min/1.73 sq m ESTIMATED GFR IS NOT xlmx=3657) ACCURATE CREATININE CLEARANCE IN PREDICTING GLOMERULAR FILTRATION RATE. ESTIMATED GFR IS NOT APPLICABLE FOR DIALYSIS PATIENTS. POCT-GLUCOSE [id number] 20:49:00 Test Item Value Reference Range Comments POC-GLUCOSE METER (BEAKER) 376 mg/dL 70-110 Notified NAT SOUZA/TESTED AT [facility] (test sodl=2997) [address] [place] [address]
[2018-11-13] MEDS ORDERED: ONDANSETRON 4 MG/2 ML VIAL ONE ×2 (21:56→23:41)
[2018-11-13] MEDS ORDERED: FENTANYL CITR 100 MCG/2 ML ONE (21:56)
--- NOTE | 2018-11-13 22:17 | RAD REPORT ---
EXAM DESCRIPTION: RAD - Abdomen 1 View (KUB) - 11/13/2018 10:07 pm CLINICAL HISTORY: Abdomen pain. FINDINGS: The bowel gas pattern is unremarkable. A moderate amount of stool is present the colon. No significant abnormal calcification is displayed. Surgical clips right upper quadrant. Metallic fragments right pelvis
[2018-11-13 23:25] LABS: ALT/SGPT 31 U/L (12-78); AST/SGOT 24 U/L (15-37); Albumin 4.1 g/dL (3.4-5.0); Alkaline Phosphatase 108 U/L (45-117); BUN Blood Urea Nitrogen 12 mg/dL (7-18); Bicarbonate 25 mmol/L (21-32); Bilirubin Direct < 0.1 mg/dL (0-0.2); Bilirubin Total 0.3 mg/dL (0.2-1.0); Glucose Level 270 mg/dL (74-106); Lipase 152 U/L (73-393); Sodium Level 139 mmol/L (136-145)
[2018-11-13 23:57] LABS: Absolute Lymphocytes (CBC) 4.6 K/uL (0.7-4.9); Basophils % 0.7 % (0-1.3); Hematocrit 42.9 % (36.0-45.0); Lymphocytes % 49.4 % (15.3-44.8); MPV 8.5 fL (7.6-11.3)
[2018-11-14 00:04] LABS: Urine Blood NEGATIVE (NEG); Urine Glucose TRACE (NEG); Urine Protein TRACE (NEG); Urine Specific Gravity 1.015 (1.005-1.030); Urine pH 5.5 (5.0-7.0)
[2018-11-14 00:20] LABS: Blood Morphology Comment NOT SEEN (NOT SEEN); Platelet Estimate ADEQ
--- NOTE | 2018-11-14 00:27 | ER ---
Nurse's Notes [facility] Name: Elly Clarke Age: 48 yrs Sex: Female : 1970 Arrival Date: 11/13/2018 Time: 21:09 Bed 15 Private MD: Pavel Curran T Diagnosis: Abdominal and pelvic pain Presentation: 11/13 21:23 Presenting complaint: Patient states: abd cramps and vomiting since Thursday. ak1 Transition of care: patient was not received from another setting of care. Onset of symptoms is unknown. Risk Assessment: Do you want to hurt yourself or someone else? Patient reports no desire to harm self or others. Initial Sepsis Screen: Does the patient meet any 2 criteria? No. Patient's initial sepsis screen is negative. Does the patient have a suspected source of infection? No. Patient's initial sepsis screen is negative. Care prior to arrival: None. 21:23 Method Of Arrival: Ambulatory ak1 21:23 Acuity: HANNAH 3 ak1 Triage Assessment: 21:26 General: Appears in no apparent distress. Behavior is calm, cooperative. Pain: ak1 Complains of pain in abdomen. EENT: No signs and/or symptoms were reported regarding the EENT system. Neuro: No deficits noted. GI: Reports lower abdominal pain, upper abdominal pain, cramping, nausea, vomiting. 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 N/A - Hysterectomy ak1 Historical: - Allergies: 21:26 Claritin (insomnia); ak1 21:26 Compazine (Seizures); ak1 21:26 Demerol (HEART RACING); ak1 21:26 (Hives); ak1 21:26 Morphine (RACING HEART); ak1 21:26 mushrooms; ak1 - Home Meds: 21:26 Metformin Oral [Active]; Klonopin 0.5 mg Oral tab 1 tab 2 times per day [Active]; ak1 tizanidine Oral BID [Active]; gabapentin Oral [Active]; Celexa Oral [Active]; Abilify Oral [Active]; tramadol Oral [Active]; - PMHx: 21:26 Arthritis; Chrohns; Chronic pain; Diabetes - NIDDM; Dramatic migraine events; ak1 Gastroparesis; High Cholesterol; Hypertension; Migraines; Pancreatitis; spinal stenosis; - PSHx: 21:26 Tonsillectomy; Cholecystectomy; Appendectomy; Hysterectomy; pancratic sx; knee sx; ak1 - Immunization history:: Adult Immunizations unknown. - Social history:: Smoking status: Patient/guardian denies using tobacco. - Ebola Screening: : No symptoms or risks identified at this time. Screenin:27 Abuse screen: Denies threats or abuse. Denies injuries from another. Nutritional ak1 screening: No deficits noted. Tuberculosis screening: No symptoms or risk factors identified. Fall Risk None identified. Assessment: 21:30 General: Appears in no apparent distress. uncomfortable, Behavior is calm, cooperative, aa1 appropriate for age. Pain: Complains of pain in abdomen Quality of pain is described as crampy, Pain began 2-3 days ago. Neuro: Level of Consciousness is awake, alert, obeys commands, Oriented to person, place, time, situation, Moves all extremities. Gait is steady. Cardiovascular: Heart tones S1 S2 present Rhythm is regular. Respiratory: Airway is patent Respiratory effort is even, unlabored, Respiratory pattern is regular, symmetrical. GI: Abdomen is non-distended, Bowel sounds present X 4 quads. Abd is soft X 4 quads Reports cramping, nausea, vomiting. : No signs and/or symptoms were reported regarding the genitourinary system. EENT: No signs and/or symptoms were reported regarding the EENT system. Derm: Skin is intact, is healthy with good turgor, Skin is pink, warm \T\ dry. Musculoskeletal: Circulation, motion, and sensation intact. Capillary refill < 3 seconds. 22:07 Reassessment: Patient appears in no apparent distress at this time. Patient and/or aa1 family updated on plan of care and expected duration. Pain level reassessed. Patient is alert, oriented x 3, equal unlabored respirations, skin warm/dry/pink. Pt taken to x-ray at this time. 22:15 Reassessment: Pt back from x-ray at this time. aa1 23:40 Reassessment: Patient appears in no apparent distress at this time. Patient and/or aa1 family updated on plan of care and expected duration. Pain level reassessed. Patient is alert, oriented x 3, equal unlabored respirations, skin warm/dry/pink. Pt requesting more pain and nausea medication. Awaiting CBC results. 11/14 00:36 Reassessment: Patient appears in no apparent distress at this time. Patient is alert, aa1 oriented x 3, equal unlabored respirations, skin warm/dry/pink. Discussed d/c \T\ f/u instructions with pt; denies questions or concerns at this time. Ambulatory to lobby with steady gait Patient states feeling better. Patient states symptoms have improved. Vital Signs: 11/13 21:22 BP 158 / 107; Pulse 103; Resp 18; Temp 97.1; Pulse Ox 97% on R/A; Weight 95.25 kg (R); ak1 Height 5 ft. 7 in. (170.18 cm) (R); Pain 8/10; 21:33 BP 150 / 89; Pulse 99; Resp 18; Pulse Ox 96% on R/A; aa1 22:30 BP 162 / 102; Pulse 97; Resp 22; Pulse Ox 94% on R/A; Pain 6/10; aa1 23:40 BP 145 / 104; Pulse 94; Resp 20; Pulse Ox 95% on R/A; Pain 9/10; aa1 21:22 Body Mass Index 32.89 (95.25 kg, 170.18 cm) ak1 ED Course: 21:09 Patient arrived in ED. es 21:10 Pavel Curran MD is Private Physician. es 21:15 [facility] jr8 21:15 Wayne Saavedra MD is Attending Physician. jr8 21:22 Arm band placed on Patient placed in an exam room, on a stretcher, on pulse oximetry, ak1 Patient notified of wait time. 21:23 Triage completed. ak1 21:28 Patient has correct armband on for positive identification. Bed in low position. Call ak1 light in reach. Side rails up X 1. Pulse ox on. NIBP on. 21:31 Abril Oneal, NAT is Primary Nurse. aa1 22:00 Inserted saline lock: 22 gauge in left forearm, using aseptic technique. Blood aa1 collected. 22:08 XRAY KUB In Process Unspecified. EDMS 11/14 00:36 No provider procedures requiring assistance completed. IV discontinued, intact, aa1 bleeding controlled, No redness/swelling at site. Pressure dressing applied. Administered Medications: 11/13 22:00 Drug: Zofran 4 mg Route: IVP; Site: left forearm; aa1 23:00 Follow up: Response: No adverse reaction; Nausea is decreased aa1 22:02 Drug: fentaNYL (PF) 50 mcg Route: IVP; Site: left forearm; aa1 23:00 Follow up: Response: No adverse reaction; Pain is decreased aa1 23:00 Follow up: Response: RASS: Alert and Calm (0) aa1 23:45 Drug: fentaNYL (PF) 50 mcg Route: IVP; Site: left forearm; aa1 11/14 00:36 Follow up: Response: No adverse reaction; Pain is decreased; RASS: Alert and Calm (0) aa1 11/13 23:45 Drug: Zofran 4 mg Route: IVP; Site: left forearm; aa1 11/14 00:35 Follow up: Response: No adverse reaction; Nausea is decreased aa1 Outcome: 00:12 Discharge ordered by . сергей 00:36 Discharged to home ambulatory, with significant other. aa1 00:36 Condition: good 00:36 Discharge instructions given to patient, Instructed on discharge instructions, follow up and referral plans. medication usage, Demonstrated understanding of instructions, follow-up care, medications, Prescriptions given X 1. 00:37 Patient left the ED. aa1 Signatures: Dispatcher [employer] EDAbril Cm RN RN aa1 Lucille Smith Josh, PA PA jr8 Aaliyah Ruiz RN RN ak1 Corrections: (The following items were deleted from the chart) 00:35 11/13 03:50 fentaNYL (PF) 50 mcg IVP in left forearm aa1 aa1
--- NOTE | 2018-11-14 00:30 | EDPHYS ---
Physician Documentation [facility] Name: Elly Clarke Age: 48 yrs Sex: Female : 1970 Arrival Date: 11/13/2018 Time: 21:09 Bed 15 Private MD: Pavel Curran T ED Physician Wayne Saavedra HPI: 11/13 21:56 This 48 yrs old Female presents to ER via Ambulatory with complaints of jr8 Vomiting, Abdominal Pain. 21:56 The patient presents to the emergency department with nausea, vomiting, abdominal pain, jr8 of the abdomen diffusely, described as crampy, and does not radiate. Onset: The symptoms/episode began/occurred gradually, 3 day(s) ago. Possible causes: unknown. The symptoms are aggravated by nothing. The symptoms are alleviated by nothing. Associated signs and symptoms: The patient has no apparent associated signs or symptoms. Severity of symptoms: At their worst the symptoms were moderate in the emergency department the symptoms are unchanged. The patient has experienced similar episodes in the past, several times. The patient has not recently seen a physician. Patient with history of Crohn's disease and chronic abdominal pain. Started with n/v and abdominal discomfort this past Thursday. Stated that she has not had relief with home medications . [employer]: 21:22 LMP N/A - Hysterectomy ak1 Historical: - Allergies: 21:26 Claritin (insomnia); ak1 21:26 Compazine (Seizures); ak1 21:26 Demerol (HEART RACING); ak1 21:26 (Hives); ak1 21:26 Morphine (RACING HEART); ak1 21:26 mushrooms; ak1 - Home Meds: 21:26 Metformin Oral [Active]; Klonopin 0.5 mg Oral tab 1 tab 2 times per day [Active]; ak1 tizanidine Oral BID [Active]; gabapentin Oral [Active]; Celexa Oral [Active]; Abilify Oral [Active]; tramadol Oral [Active]; - PMHx: 21:26 Arthritis; Chrohns; Chronic pain; Diabetes - NIDDM; Dramatic migraine events; ak1 Gastroparesis; High Cholesterol; Hypertension; Migraines; Pancreatitis; spinal stenosis; - PSHx: 21:26 Tonsillectomy; Cholecystectomy; Appendectomy; Hysterectomy; pancratic sx; knee sx; ak1 - Immunization history:: Adult Immunizations unknown. - Social history:: Smoking status: Patient/guardian denies using tobacco. - Ebola Screening: : No symptoms or risks identified at this time. ROS: 21:56 Eyes: Negative for injury, pain, redness, and discharge, ENT: Negative for injury, jr8 pain, and discharge, Neck: Negative for injury, pain, and swelling, Cardiovascular: Negative for chest pain, palpitations, and edema, Respiratory: Negative for shortness of breath, cough, wheezing, and pleuritic chest pain, Back: Negative for injury and pain, MS/Extremity: Negative for injury and deformity, Skin: Negative for injury, rash, and discoloration, Neuro: Negative for headache, weakness, numbness, tingling, and seizure. 21:56 Abdomen/GI: Positive for abdominal pain, nausea and vomiting, abdominal cramps, Negative for abdominal distension, anorexia, dysphagia, hematemesis, black/tarry stool, rectal pain, rectal bleeding, bowel incontinence, flatulence. Exam: 21:56 Eyes: Pupils equal round and reactive to light, extra-ocular motions intact. Lids and jr8 lashes normal. Conjunctiva and sclera are non-icteric and not injected. Cornea within normal limits. Periorbital areas with no swelling, redness, or edema. ENT: Nares patent. No nasal discharge, no septal abnormalities noted. Tympanic membranes are normal and external auditory canals are clear. Oropharynx with no redness, swelling, or masses, exudates, or evidence of obstruction, uvula midline. Mucous membranes moist. Neck: Trachea midline, no thyromegaly or masses palpated, and no cervical lymphadenopathy. Supple, full range of motion without nuchal rigidity, or vertebral point tenderness. No Meningismus. Cardiovascular: Regular rate and rhythm with a normal S1 and S2. No gallops, murmurs, or rubs. Normal PMI, no JVD. No pulse deficits. Respiratory: Lungs have equal breath sounds bilaterally, clear to auscultation and percussion. No rales, rhonchi or wheezes noted. No increased work of breathing, no retractions or nasal flaring. Abdomen/GI: Soft, non-tender, with normal bowel sounds. No distension or tympany. No guarding or rebound. No evidence of tenderness throughout. Back: No spinal tenderness. No costovertebral tenderness. Full range of motion. Skin: Warm, dry with normal turgor. Normal color with no rashes, no lesions, and no evidence of cellulitis. MS/ Extremity: Pulses equal, no cyanosis. Neurovascular intact. Full, normal range of motion. Neuro: Awake and alert, GCS 15, oriented to person, place, time, and situation. Cranial nerves II-XII grossly intact. Motor strength 5/5 in all extremities. Sensory grossly intact. Cerebellar exam normal. Normal gait. Vital Signs: 21:22 BP 158 / 107; Pulse 103; Resp 18; Temp 97.1; Pulse Ox 97% on R/A; Weight 95.25 kg (R); ak1 Height 5 ft. 7 in. (170.18 cm) (R); Pain 8/10; 21:33 BP 150 / 89; Pulse 99; Resp 18; Pulse Ox 96% on R/A; aa1 22:30 BP 162 / 102; Pulse 97; Resp 22; Pulse Ox 94% on R/A; Pain 6/10; aa1 23:40 BP 145 / 104; Pulse 94; Resp 20; Pulse Ox 95% on R/A; Pain 9/10; aa1 21:22 Body Mass Index 32.89 (95.25 kg, 170.18 cm) ak1 MDM: 21:23 Patient medically screened. 8 11/14 00:09 Data reviewed: vital signs, nurses notes, lab test result(s), radiologic studies, plain jr8 films. Data interpreted: Pulse oximetry: on room air is 95 %. Interpretation: normal. Counseling: I had a detailed discussion with the patient and/or guardian regarding: the historical points, exam findings, and any diagnostic results supporting the discharge/admit diagnosis, lab results, radiology results, the need for outpatient follow up, a family practitioner, a fighter pilot, to return to the emergency department if symptoms worsen or persist or if there are any questions or concerns that arise at home. Response to treatment: the patient's symptoms have markedly improved after treatment. ED course: No acute findings on labs or KUB. Abdominal exam initially and upon reassessment was soft and without tenderness, guarding, or peritoneal sings. Recommended f/u with GI and FM to patient which she is good with. 11/13 21:21 Order name: Basic Metabolic Panel [facility] 11/13 21:21 Order name: CBC with Diff; Complete Time: 00:26 [facility] 11/13 21:21 Order name: Hepatic Function; Complete Time: 23:49 [facility] 11/13 21:21 Order name: Lipase; Complete Time: 23:49 [facility] 11/13 21:22 Order name: Basic Metabolic Panel; Complete Time: 23:49 EDMS 11/13 21:21 Order name: IV Saline Lock; Complete Time: 21:53 [facility] 11/13 21:28 Order name: Urine Dipstick--Ancillary (enter results); Complete Time: 00:09 ar5 11/13 21:53 Order name: XRCELESTE MARKSB; Complete Time: 22:42 [facility] 11/13 23:59 Order name: Manual Differential; Complete Time: 00:26 EDMS 11/13 21:21 Order name: Labs collected and sent; Complete Time: 22:51 [facility] 11/13 21:21 Order name: Urine Test (obtain specimen); Complete Time: 21:32 [facility] 11/13 21:21 Order name: Urine Dipstick-Ancillary (obtain specimen); Complete Time: 21:32 Administered Medications: 11/13 22:00 Drug: Zofran 4 mg Route: IVP; Site: left forearm; aa1 23:00 Follow up: Response: No adverse reaction; Nausea is decreased aa1 22:02 Drug: fentaNYL (PF) 50 mcg Route: IVP; Site: left forearm; aa1 23:00 Follow up: Response: No adverse reaction; Pain is decreased aa1 23:00 Follow up: Response: RASS: Alert and Calm (0) aa1 23:45 Drug: fentaNYL (PF) 50 mcg Route: IVP; Site: left forearm; aa1 11/14 00:36 Follow up: Response: No adverse reaction; Pain is decreased; RASS: Alert and Calm (0) aa1 11/13 23:45 Drug: Zofran 4 mg Route: IVP; Site: left forearm; aa1 11/14 00:35 Follow up: Response: No adverse reaction; Nausea is decreased aa1 Disposition: 06:00 Co-signature as Attending Physician, Wayne Saavedra MD I agree with the assessment and tw4 plan of care. Disposition: 11/14/18 00:12 Discharged to Home. Impression: Abdominal and pelvic pain. - Condition is Stable. - Discharge Instructions: Abdominal Pain, Adult, Crohn Disease. - Prescriptions for Zofran 4 mg Oral Tablet - take 1 tablet by ORAL route every 12 hours As needed; 20 tablet. - Medication Reconciliation Form, Thank You Letter, Antibiotic Education, Prescription Opioid Use form. - Follow up: Private Physician; When: 2 - 3 days; Reason: Recheck today's complaints, Continuance of care, Re-evaluation by your physician. - Problem is new. - Symptoms have improved. Signatures: Dispatcher [employer] [facility] Abril Oneal RN RN aa1 Lj Love PA PA jr8 Aaliyah Ruiz RN RN ak1 Wayne Saavedra MD MD tw4 Corrections: (The following items were deleted from the chart) 11/13 22:34 21:22 Creatinine for Radiology+C.LAB.BRZ ordered. [facility] 11/14 00:37 00:12 11/14/2018 00:12 Discharged to Home. Impression: Abdominal and pelvic pain. aa1 Condition is Stable. Forms are Medication Reconciliation Form, Thank You Letter, Antibiotic Education, Prescription Opioid Use. Follow up: Private Physician; When: 2 - 3 days; Reason: Recheck today's complaints, Continuance of care, Re-evaluation by your physician. Problem is new. Symptoms have improved. jr8
[2018-11-14 02:32] VITALS: TEMP 97.1
[2018-11-14 02:39] VITALS: BP 145/104; O2SAT 95
== END 2018-11-14 00:37 | disposition home or self-care (01) ==
LOC: ER 21:06
DX: R10.2 Pelvic and perineal pain (principal); I10 Essential (primary) hypertension; E11.9 Type 2 diabetes mellitus without complications; E78.00 Pure hypercholesterolemia, unspecified; Z88.5 Allergy status to narcotic agent; Z88.8 Allergy status to other drugs, medicaments and biological substances; Z91.018 Allergy to other foods
CPT/HCPCS: 85025; 80048; 36415; 80076; 81003; 83690; 74018; 96375; 96374; 99284; J3010; J2405 ×2

== ENCOUNTER 2018-12-30 20:59 | Emergency (ER) | payer OTHER ==
[2018-12-30] MEDS ORDERED: METOPROLOL TAR 25 MG TAB ONE (23:05)
[2018-12-30] MEDS ORDERED: INSULIN -REGULAR HUMAN 50 UNIT/0.5 ML ML ONE (23:06)
[2018-12-30 23:28] LABS: Barbiturates NEGATIVE (NEGATIVE); Benzodiazepines NEGATIVE (NEGATIVE); Cocaine NEGATIVE (NEGATIVE); METHAMPHETAM NEGATIVE (NEGATIVE); Methadone NEGATIVE (NEGATIVE); Opiates NEGATIVE (NEGATIVE); Phencyclidine NEGATIVE (NEGATIVE); THC Cannibis NEGATIVE (NEGATIVE)
[2018-12-30] MEDS ORDERED: ONDANSETRON 4 MG (ODT) TAB ONE (23:34)
[2018-12-30 23:54] LABS: Urine Bacteria <20 /HPF (<20); Urine Culture Reflex Order NOT NEEDED; Urine RBC <5 /HPF (NONE SEEN)
[2018-12-30 23:57] LABS: Urine Blood NEGATIVE (NEG); Urine Glucose 1+ (NEG); Urine Protein NEGATIVE (NEG); Urine Specific Gravity <1.005 (1.005-1.030); Urine pH 5.5 (5.0-7.0)
--- NOTE | 2018-12-30 23:59 | EDPHYS ---
Physician Documentation [facility] Name: Elly Clarke Age: 48 yrs Sex: Female : 1970 Arrival Date: 12/30/2018 Time: 21:03 Bed 6 Private MD: Pavel Curran T ED Physician Jaswinder Heart HPI: 12/30 22:54 This 48 yrs old Female presents to ER via Ambulatory with complaints of snw Fever, Sore Throat. 22:54 The patient reports fever, denies fever. Onset: The symptoms/episode began/occurred snw suddenly, 2 day(s) ago, and became persistent. Modifying factors: pain management. Associated signs and symptoms: Pertinent positives: abdominal pain, sore throat. Severity of symptoms: At their worst the symptoms were moderate. It is unknown whether or not the patient has had similar symptoms in the past. It is unknown whether or not the patient has recently seen a physician. [employer]: 21:52 LMP N/A - Hysterectomy fc Historical: - Allergies: 21:52 Claritin (insomnia); fc 21:52 Demerol (HEART RACING); fc 21:52 (Hives); fc 21:52 Compazine (Seizures); fc 21:52 Morphine (RACING HEART); fc - Home Meds: 21:52 metformin 500 mg oral tab 1 tab 2 times per day [Active]; tizanidine 2 mg oral cap 2 fc caps twice a day [Active]; tramadol 50 mg oral tab 1 tab three times a day [Active]; Lantus 100 unit/mL Sub-Q soln 60 unit twice a day [Active]; - PMHx: 21:52 Arthritis; Chronic pain; Diabetes - NIDDM; Gastroparesis; High Cholesterol; fc Hypertension; Migraines; spinal stenosis; Pancreatitis; Dramatic migraine events; Chrohns; - PSHx: 21:52 Tonsillectomy; Cholecystectomy; Appendectomy; Hysterectomy; pancratic sx; knee sx; fc - Immunization history:: Last tetanus immunization: unknown, Flu vaccine is not up to date. It has been more than one year since last vaccine. - Social history:: Smoking status: Patient/guardian denies using tobacco, Patient/guardian denies using alcohol, street drugs. - Ebola Screening: : Patient negative for fever greater than or equal to 101.5 degrees Fahrenheit, and additional compatible Ebola Virus Disease symptoms Patient denies exposure to infectious person Patient denies travel to an Ebola-affected area in the 21 days before illness onset. ROS: 22:52 Constitutional: Negative for fever, chills, and weight loss, Eyes: Negative for injury, snw pain, redness, and discharge. 22:52 Neck: Negative for injury, pain, and swelling, Cardiovascular: Negative for chest pain, palpitations, and edema, Respiratory: Negative for shortness of breath, cough, wheezing, and pleuritic chest pain. 22:52 Back: Negative for injury and pain, : Negative for injury, bleeding, discharge, and swelling, MS/Extremity: Negative for injury and deformity, Skin: Negative for injury, rash, and discoloration, Neuro: Negative for headache, weakness, numbness, tingling, and seizure, Psych: Negative for depression, anxiety, suicide ideation, homicidal ideation, and hallucinations. 22:52 ENT: Positive for sore throat. 22:52 Abdomen/GI: Positive for abdominal pain, of the suprapubic area. Exam: 22:51 Head/Face: Normocephalic, atraumatic. Eyes: Pupils equal round and reactive to light, snw extra-ocular motions intact. Lids and lashes normal. Conjunctiva and sclera are non-icteric and not injected. Cornea within normal limits. Periorbital areas with no swelling, redness, or edema. Neck: Trachea midline, no thyromegaly or masses palpated, and no cervical lymphadenopathy. Supple, full range of motion without nuchal rigidity, or vertebral point tenderness. No Meningismus. Chest/axilla: Normal chest wall appearance and motion. Nontender with no deformity. No lesions are appreciated. 22:51 Respiratory: Lungs have equal breath sounds bilaterally, clear to auscultation and percussion. No rales, rhonchi or wheezes noted. No increased work of breathing, no retractions or nasal flaring. Back: No spinal tenderness. No costovertebral tenderness. Full range of motion. 22:51 Constitutional: The patient appears awake, appears drugged 22:51 ENT: External ear(s): are unremarkable, Ear canal(s): are normal, TM's: are normal, Nose: is normal, Mouth: Oral mucosa: dry, Posterior pharynx: is normal, Voice: is normal. 22:51 Cardiovascular: Rate: tachycardic. 22:51 Abdomen/GI: Inspection: abdomen appears normal, obese Bowel sounds: normal, Palpation: mild abdominal tenderness, in the suprapubic area. Vital Signs: 21:52 BP 165 / 116 RA Sitting; Pulse 107; Resp 20; Temp 99.1(O); Pulse Ox 97% on R/A; Weight fc 92.08 kg (R); Height 5 ft. 7 in. (170.18 cm) (R); Pain 8/10; 21:52 BP 170 / 113 LA Sitting; fc 23:00 BP 145 / 90; Pulse 102; Resp 18; Pulse Ox 97% ; ak1 23:44 BP 160 / 94; Pulse 100; Resp 20; Pulse Ox 97% ; ak1 21:52 Body Mass Index 31.79 (92.08 kg, 170.18 cm) fc MDM: 21:57 Patient medically screened. snw 23:59 Data reviewed: vital signs, nurses notes. Data interpreted: Pulse oximetry: on room air snw is 97 %. Interpretation: normal. Counseling: I had a detailed discussion with the patient and/or guardian regarding: the historical points, exam findings, and any diagnostic results supporting the discharge/admit diagnosis, lab results, the need for outpatient follow up, to return to the emergency department if symptoms worsen or persist or if there are any questions or concerns that arise at home. Special discussion: Based on the patient's Hx, exam, and Dx evaluation, there is no indication for emergent surgery or inpatient Tx. It is understood by the patient/guardian that if the Sx's persist or worsen they need to return immediately for re-evaluation. Based on the history and exam findings, there is no indication for further emergent testing or inpatient evaluation. I discussed with the patient/guardian the need to see the primary care provider for further evaluation of the symptoms. 12/31 01:07 Response to treatment: pt is extremely upset that she is not getting Dilaudid for her snw crohn's pain. Pt has repeatedly been asked to stay in her stretcher with siderails up. Pt repeatedly gets up without assistance and slips to dai or floor. Pt demands pain medication for her crohn's because the pain management doctor only gives her tramadol for her knee pain, stadol nose spray for her migraines, and a muscle relaxer for her shoulder and back pain. Demands Dilaudid for her crohn's pain. . 12/30 21:13 Order name: Strep; Complete Time: 23:10 snw 12/30 21:13 Order name: Flu; Complete Time: 23:10 snw 12/30 22:33 Order name: Glucometer Result Nova; Complete Time: 23:04 ak1 12/30 22:56 Order name: Urine Drug Screen; Complete Time: 23:34 snw 12/30 22:56 Order name: Urine Culture snw 12/30 22:56 Order name: Urine Microscopic Only; Complete Time: 23:56 snw 12/30 22:02 Order name: FSBS; Complete Time: 22:33 snw 12/30 22:56 Order name: Urine Dipstick-Ancillary (obtain specimen); Complete Time: 23:00 snw 12/30 23:08 Order name: Throat Culture EDMS 12/30 23:25 Order name: Urine Dipstick--Ancillary (enter results); Complete Time: 23:57 ar5 Administered Medications: 12/30 23:10 Drug: Metoprolol 25 mg Route: PO; ak1 23:47 Follow up: Response: No adverse reaction ak1 23:10 Drug: Insulin Regular Human 5 units {Co-Signature: bb (Bianka Lema RN).} Route: ak1 Sub-Q; Site: left upper arm; 23:48 Follow up: Response: No adverse reaction ak1 23:39 Drug: Zofran 4 mg Route: PO; ak1 23:48 Follow up: Response: No adverse reaction ak1 Disposition: 12/30/18 23:57 Discharged to Home. Impression: Acute pharyngitis, Lower abdominal pain, unspecified, Hyperglycemia, unspecified. - Condition is Stable. - Discharge Instructions: Abdominal Pain, Adult, Diabetes and Sick Day Management, Hyperglycemia, Hypertension, Blood Glucose Monitoring, Adult, Rehydration, Adult. - Medication Reconciliation Form, Thank You Letter, Antibiotic Education, Prescription Opioid Use form. - Follow up: Pavel Curran; When: Tomorrow; Reason: Recheck today's complaints, Continuance of care, Re-evaluation by your physician. Follow up: Emergency Department; When: As needed; Reason: Worsening of condition. Addendum: 01/05/2019 06:55 Co-signature as Attending Physician, Jaswinder Heart MD Available for consultation at p s1 all times . Signatures: Dispatcher [employer] Shira Partida, JAQUAN[facility] [place], RN RN Bianka Esposito RN RN bb Aaliyah Ruiz RN RN akJaswinder Ascencio MD MD [facility] Karan Christian RN RN Bianka Lema RN bb Corrections: (The following items were deleted from the chart) 12/31 00:29 12/30 23:57 12/30/2018 23:57 Discharged to Home. Impression: Acute pharyngitis; Lower bb abdominal pain, unspecified; Hyperglycemia, unspecified. Condition is Stable. Forms are Medication Reconciliation Form, Thank You Letter, Antibiotic Education, Prescription Opioid Use. Follow up: Pavel Curran; When: Tomorrow; Reason: Recheck today's complaints, Continuance of care, Re-evaluation by your physician. Follow up: Emergency Department; When: As needed; Reason: Worsening of condition. snw
--- NOTE | 2018-12-30 23:59 | ER ---
Nurse's Notes [facility] Name: Elly Clarke Age: 48 yrs Sex: Female : 1970 Arrival Date: 12/30/2018 Time: 21:03 Bed 6 Private MD: Pavel Curran T Diagnosis: Acute pharyngitis;Lower abdominal pain, unspecified;Hyperglycemia, unspecified Presentation: 12/30 21:53 Presenting complaint: Patient states: that she is having problems with her crohn's, has fc left knee pain, arm pain, fever and sore throat. All started yesterday. Transition of care: patient was not received from another setting of care. Onset of symptoms was December 29, 2018. Risk Assessment: Do you want to hurt yourself or someone else? Patient reports no desire to harm self or others. Initial Sepsis Screen: Does the patient meet any 2 criteria? HR > 90 bpm. Yes Does the patient have a suspected source of infection? No. Patient's initial sepsis screen is negative. Care prior to arrival: None. 21:53 Method Of Arrival: Ambulatory 21:53 Acuity: HANNAH 3 Triage Assessment: 22:48 General: Appears in no apparent distress. Behavior is anxious, crying. Pain: Complains ak1 of pain in abdomen. EENT: Throat is clear. 22:55 Neuro: Level of Consciousness is awake, alert, obeys commands, Oriented to person, ak1 place, time, situation, Dental Hygiene Instructor are equal bilaterally Moves all extremities. Full function Gait is unsteady, Speech is normal. Cardiovascular: No deficits noted. Respiratory: No deficits noted. GI: Abdomen is round distended, Reports lower abdominal pain, upper abdominal pain. GI:. : No signs and/or symptoms were reported regarding the genitourinary system. Derm: No signs and/or symptoms reported regarding the dermatologic system. Musculoskeletal: No signs and/or symptoms reported regarding the musculoskeletal system. 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 N/A - Hysterectomy fc Historical: - Allergies: 21:52 Claritin (insomnia); fc 21:52 Demerol (HEART RACING); fc 21:52 (Hives); fc 21:52 Compazine (Seizures); fc 21:52 Morphine (RACING HEART); fc - Home Meds: 21:52 metformin 500 mg oral tab 1 tab 2 times per day [Active]; tizanidine 2 mg oral cap 2 fc caps twice a day [Active]; tramadol 50 mg oral tab 1 tab three times a day [Active]; Lantus 100 unit/mL Sub-Q soln 60 unit twice a day [Active]; - PMHx: 21:52 Arthritis; Chronic pain; Diabetes - NIDDM; Gastroparesis; High Cholesterol; fc Hypertension; Migraines; spinal stenosis; Pancreatitis; Dramatic migraine events; Chrohns; - PSHx: 21:52 Tonsillectomy; Cholecystectomy; Appendectomy; Hysterectomy; pancratic sx; knee sx; fc - Immunization history:: Last tetanus immunization: unknown, Flu vaccine is not up to date. It has been more than one year since last vaccine. - Social history:: Smoking status: Patient/guardian denies using tobacco, Patient/guardian denies using alcohol, street drugs. - Ebola Screening: : Patient negative for fever greater than or equal to 101.5 degrees Fahrenheit, and additional compatible Ebola Virus Disease symptoms Patient denies exposure to infectious person Patient denies travel to an Ebola-affected area in the 21 days before illness onset. Screenin:47 Abuse screen: Denies threats or abuse. Denies injuries from another. Nutritional ak1 screening: No deficits noted. Tuberculosis screening: No symptoms or risk factors identified. Fall Risk Gait- Impaired (20 pts.). Assessment: 22:58 Respiratory: Airway is patent Respiratory effort is even, unlabored. ak1 23:17 Reassessment: pt continues to request pain medication. provider informed. pt stated ak1 Stadol and Dilaudid are the only medications she can have. pt with"unsteady" gait and informed that she will need to wait for pain medications due to unsteady gait and no ride home. 12/31 00:05 Reassessment: pt continues to c/o pain, provider notified. pt has no ride at this time. ak1 pt is on home pain management per provider. 00:24 Reassessment: on discharge pt upset states she needs pain medication Shira Sims NP bb notified and at bedside for discussion of need to follow up with her pain management physician. Pt still upset so Dr Heart discussed need for follow-up with pain management physician as well. Pt given discharge instructions and escorted to exit. Vital Signs: 12/30 21:52 BP 165 / 116 RA Sitting; Pulse 107; Resp 20; Temp 99.1(O); Pulse Ox 97% on R/A; Weight fc 92.08 kg (R); Height 5 ft. 7 in. (170.18 cm) (R); Pain 8/10; 21:52 BP 170 / 113 LA Sitting; fc 23:00 BP 145 / 90; Pulse 102; Resp 18; Pulse Ox 97% ; ak1 23:44 BP 160 / 94; Pulse 100; Resp 20; Pulse Ox 97% ; ak1 21:52 Body Mass Index 31.79 (92.08 kg, 170.18 cm) ED Course: 21:03 Patient arrived in ED. mr 21:03 Pavel Curran MD is Private Physician. mr 21:05 Sh[facility] Sim[facility]C [facility]. snw 21:05 Jaswinder Heart MD is Attending Physician. snw 21:53 Arm band placed on Patient placed in an exam room, on a stretcher. fc 21:54 Triage completed. fc 22:33 Aaliyah Ruiz, RN is Primary Nurse. ak1 22:57 Patient has correct armband on for positive identification. Bed in low position. Call ak1 light in reach. Side rails up X2. pt refused to keep BP cuff and pulse ox on. 23:57 Pavel Curran MD is Referral Physician. snw 12/31 00:05 No provider procedures requiring assistance completed. Patient did not have IV access ak1 during this emergency room visit. Administered Medications: 12/30 23:10 Drug: Metoprolol 25 mg Route: PO; ak1 23:47 Follow up: Response: No adverse reaction ak1 23:10 Drug: Insulin Regular Human 5 units {Co-Signature: radha (Bianka Lema RN).} Route: ak1 Sub-Q; Site: left upper arm; 23:48 Follow up: Response: No adverse reaction ak1 23:39 Drug: Zofran 4 mg Route: PO; ak1 23:48 Follow up: Response: No adverse reaction ak1 Outcome: 23:57 Discharge ordered by . snw 12/31 00:05 Condition: good ak1 00:28 Discharged to home ambulatory. bb 00:28 Discharge instructions given to patient, Instructed on discharge instructions, follow up and referral plans. Demonstrated understanding of instructions, follow-up care. 00:29 Patient left the ED. bb Signatures: Shira Sims, JAQUAN-C FIGURINE MAKER-Csnw RonaldAngelika mr Anthony, [place], RN RN fc Bianka Lema RN RN bb Aaliyah Ruiz RN RN ak1 Bianka Lema RN bb
[2018-12-31 01:46] VITALS: TEMP 99.1; O2SAT 97
[2018-12-31 01:49] VITALS: BP 160/94
== END 2018-12-31 00:29 | disposition home or self-care (01) ==
LOC: ER 20:59
DX: E11.65 Type 2 diabetes mellitus with hyperglycemia (principal); J02.9 Acute pharyngitis, unspecified; I10 Essential (primary) hypertension; E78.00 Pure hypercholesterolemia, unspecified; Z79.4 Long term (current) use of insulin; Z88.1 Allergy status to other antibiotic agents; Z88.5 Allergy status to narcotic agent; Z88.8 Allergy status to other drugs, medicaments and biological substances
CPT/HCPCS: 36415; 80307; 81003; 81015; 82962; 87070; 87077; 87081; 87086; 87088; 87186; 87804; 96372; 99283

== ENCOUNTER 2019-01-15 13:27 | Emergency (ER) | payer OTHER ==
[2019-01-15 13:53] LABS: Urine Blood NEGATIVE (NEG); Urine Glucose 1+ (NEG); Urine Protein NEGATIVE (NEG)
[2019-01-15 14:04] LABS: Urine Bacteria <20 /HPF (<20); Urine Culture Reflex Order NOT NEEDED; Urine RBC <5 /HPF (NONE SEEN)
[2019-01-15] MEDS ORDERED: HYDROMORPHONE HCL 1 MG/ML INJ ONE (14:30)
[2019-01-15] MEDS ORDERED: NA CHLORIDE 0.9% 50 ML IV ONE (14:30)
[2019-01-15] MEDS ORDERED: DIPHENHYDRAMINE 50 MG/ML VIAL ONE (14:43)
[2019-01-15 14:57] LABS: Absolute Lymphocytes (CBC) 3.2 K/uL (0.7-4.9); Hematocrit 43.1 % (36.0-45.0); Lymphocytes % 38.7 % (15.3-44.8); MPV 8.2 fL (7.6-11.3); RBC Red Blood Cell Count 5.42 M/uL (3.86-4.86)
[2019-01-15 15:14] LABS: ALT/SGPT 22 U/L (12-78); AST/SGOT 13 U/L (15-37); Albumin 3.8 g/dL (3.4-5.0); Alkaline Phosphatase 89 U/L (45-117); BUN Blood Urea Nitrogen 6 mg/dL (7-18); Bicarbonate 26 mmol/L (21-32); Bilirubin Direct < 0.1 mg/dL (0-0.2); Bilirubin Total 0.2 mg/dL (0.2-1.0); Glucose Level 222 mg/dL (74-106); Lipase 213 U/L (73-393); Potassium 3.2 mmol/L (3.5-5.1); Protein, Total 7.6 g/dL (6.4-8.2); Sodium Level 138 mmol/L (136-145)
--- NOTE | 2019-01-15 15:47 | ER ---
Nurse's Notes [facility] Name: Elly Clarke Age: 48 yrs Sex: Female : 1970 Arrival Date: 01/15/2019 Time: 13:29 Bed 24 Private MD: Diagnosis: Generalized abdominal pain Presentation: 01/15 13:43 Presenting complaint: Patient states: "I think it's deacon Crohns' acting up, but i've had ss abdominal pain and diarrhea for about a week and a half now. The diarrhea has gotten better, but the pain is getting worse.". Transition of care: patient was not received from another setting of care. Onset of symptoms was January 03, 2019. Risk Assessment: Do you want to hurt yourself or someone else? Patient reports no desire to harm self or others. Initial Sepsis Screen: Does the patient meet any 2 criteria? No. Patient's initial sepsis screen is negative. Does the patient have a suspected source of infection? No. Patient's initial sepsis screen is negative. Care prior to arrival: None. 13:43 Method Of Arrival: Ambulatory ss 13:43 Acuity: HANNAH 3 ss Historical: - Allergies: 13:46 Claritin (insomnia); ss 13:46 Compazine (Seizures); ss 13:46 Demerol (HEART RACING); ss 13:46 (Hives); ss 13:46 Morphine (RACING HEART); ss - PMHx: 13:46 Arthritis; Chrohns; Chronic pain; Diabetes - NIDDM; Dramatic migraine events; ss Gastroparesis; High Cholesterol; Hypertension; Migraines; Pancreatitis; spinal stenosis; - PSHx: 13:46 Tonsillectomy; Cholecystectomy; Appendectomy; Hysterectomy; pancratic sx; knee sx; ss - Immunization history:: Adult Immunizations up to date. - Social history:: Smoking status: Patient/guardian denies using tobacco. - Ebola Screening: : Patient denies exposure to infectious person Patient denies travel to an Ebola-affected area in the 21 days before illness onset. Screenin:57 Abuse screen: Denies threats or abuse. Nutritional screening: No deficits noted. em Tuberculosis screening: No symptoms or risk factors identified. Fall Risk None identified. Assessment: 14:01 General: Appears in no apparent distress. comfortable, Behavior is calm, cooperative. em Pain: Complains of pain in abdomen Pain currently is 8 out of 10 on a pain scale. Neuro: Level of Consciousness is awake, alert, obeys commands, Oriented to person, place, time, situation. Cardiovascular: Capillary refill < 3 seconds Patient's skin is warm and dry. Respiratory: Airway is patent Respiratory effort is even, unlabored, Respiratory pattern is regular, symmetrical. GI: Abdomen is flat, Bowel sounds present X 4 quads. Abd is soft X 4 quads Abdomen is tender to palpation X 4 quads. Reports diarrhea, nausea, vomiting. Derm: Skin is intact, is healthy with good turgor, Skin is pink, warm \\T\\ dry. Musculoskeletal: Capillary refill < 3 seconds, Range of motion: intact in all extremities. 15:05 Reassessment: Patient appears in no apparent distress at this time. Patient and/or em family updated on plan of care and expected duration. Pain level reassessed. Patient is alert, oriented x 3, equal unlabored respirations, skin warm/dry/pink. 15:30 Reassessment: Patient appears in no apparent distress at this time. rates pain 4/10, em denies nausea Patient denies pain at this time. Patient states feeling better. Patient states symptoms have improved. 15:41 Reassessment: The previous assessment is accurate. Call light remains within reach. Vital Signs: 13:45 BP 175 / 110; Pulse 75; Pulse Ox 99% on R/A; jp3 13:46 BP 176 / 115; Pulse 81; Resp 16; Temp 97.8(TE); Pulse Ox 100% on R/A; Weight 123.38 kg; ss Height 5 ft. 7 in. (170.18 cm); Pain 8/10; 14:30 BP 154 / 93; Pulse 75; Resp 16; Pulse Ox 97% on R/A; Pain 8/10; em 15:30 BP 160 / 115; Pulse 85; Resp 20; Pulse Ox 99% ; Pain 4/10; em 13:46 Body Mass Index 42.60 (123.38 kg, 170.18 cm) ss 15:30 was unable to take BP medication this morning, reports will go home and take BP em medication if discharged, provider notified ED Course: 13:29 Patient arrived in ED. as 13:31 Storm Chaparro LVN is Primary Nurse. em 13:32 Norman Pollack MD is Attending Physician. 13:45 Triage completed. ss 13:46 Arm band placed on left wrist. ss 13:48 Bed in low position. Call light in reach. Side rails up X 1. Warm blanket given. Verbal jp3 reassurance given. Pulse ox on. NIBP on. 13:50 Urine collected: clean catch specimen, clear, drea colored. Patient maintains SpO2 jp3 saturation greater than 95% on room air. 14:30 Initial lab(s) drawn, by me, sent to lab. Inserted saline lock: 22 gauge in left em antecubital area, using aseptic technique. Blood collected. 16:08 No provider procedures requiring assistance completed. IV discontinued, intact, em bleeding controlled, No redness/swelling at site. Pressure dressing applied. Administered Medications: 14:48 Drug: Benadryl 25 mg Route: IVP; Site: left antecubital; ss 15:30 Follow up: Response: No adverse reaction; Nausea is decreased em 14:50 Drug: Dilaudid 1 mg {Note: given in 50 bag of NS.} Route: IVP; Site: left antecubital; ss 15:30 Follow up: Response: No adverse reaction; Pain is decreased em Outcome: 15:47 Discharge ordered by . 16:09 Discharged to home ambulatory. em 16:09 Condition: good 16:09 Discharge instructions given to patient, Instructed on discharge instructions, follow up and referral plans. Demonstrated understanding of instructions, follow-up care. 16:12 Patient left the ED. em Signatures: Storm Chaparro LVN LVN em Lashell Boykin Shelby, NAT RN Norman Pollack MD MD Bebeto Jacobs jp3
--- NOTE | 2019-01-15 15:48 | EDPHYS ---
Physician Documentation [facility] Name: Elly Clarke Age: 48 yrs Sex: Female : 1970 Arrival Date: 01/15/2019 Time: 13:29 Bed 24 Private MD: ED Physician Norman Pollack HPI: 01/15 16:05 This 48 yrs old Female presents to ER via Ambulatory with complaints of gs Abdominal Pain, Nausea, Diarrhea. 16:05 The patient presents to the emergency department with nausea, vomiting, diarrhea. gs 16:05 Onset: The symptoms/episode began/occurred 1 week(s) ago. Possible causes: flare up of gs bowel problem, Crohn's disease. The symptoms are aggravated by nothing. The symptoms are alleviated by nothing. Associated signs and symptoms: Pertinent negatives: fever. Severity of symptoms: At their worst the symptoms were moderate in the emergency department the symptoms are unchanged. The patient has experienced similar episodes in the past, chronically. Historical: - Allergies: 13:46 Claritin (insomnia); ss 13:46 Compazine (Seizures); ss 13:46 Demerol (HEART RACING); ss 13:46 (Hives); ss 13:46 Morphine (RACING HEART); ss - PMHx: 13:46 Arthritis; Chrohns; Chronic pain; Diabetes - NIDDM; Dramatic migraine events; ss Gastroparesis; High Cholesterol; Hypertension; Migraines; Pancreatitis; spinal stenosis; - PSHx: 13:46 Tonsillectomy; Cholecystectomy; Appendectomy; Hysterectomy; pancratic sx; knee sx; ss - Immunization history:: Adult Immunizations up to date. - Social history:: Smoking status: Patient/guardian denies using tobacco. - Ebola Screening: : Patient denies exposure to infectious person Patient denies travel to an Ebola-affected area in the 21 days before illness onset. ROS: 16:05 All other systems are negative. gs Exam: 16:05 Head/Face: Normocephalic, atraumatic. Eyes: Pupils equal round and reactive to light, gs extra-ocular motions intact. Lids and lashes normal. Conjunctiva and sclera are non-icteric and not injected. Cornea within normal limits. Periorbital areas with no swelling, redness, or edema. ENT: Nares patent. No nasal discharge, no septal abnormalities noted. Tympanic membranes are normal and external auditory canals are clear. Oropharynx with no redness, swelling, or masses, exudates, or evidence of obstruction, uvula midline. Mucous membranes moist. Neck: Trachea midline, no thyromegaly or masses palpated, and no cervical lymphadenopathy. Supple, full range of motion without nuchal rigidity, or vertebral point tenderness. No Meningismus. Chest/axilla: Normal chest wall appearance and motion. Nontender with no deformity. No lesions are appreciated. Cardiovascular: Regular rate and rhythm with a normal S1 and S2. No gallops, murmurs, or rubs. Normal PMI, no JVD. No pulse deficits. Respiratory: Lungs have equal breath sounds bilaterally, clear to auscultation and percussion. No rales, rhonchi or wheezes noted. No increased work of breathing, no retractions or nasal flaring. Back: No spinal tenderness. No costovertebral tenderness. Full range of motion. Skin: Warm, dry with normal turgor. Normal color with no rashes, no lesions, and no evidence of cellulitis. MS/ Extremity: Pulses equal, no cyanosis. Neurovascular intact. Full, normal range of motion. Neuro: Awake and alert, GCS 15, oriented to person, place, time, and situation. Cranial nerves II-XII grossly intact. Motor strength 5/5 in all extremities. Sensory grossly intact. Cerebellar exam normal. Normal gait. 16:05 Constitutional: The patient appears alert, awake. 16:05 Abdomen/GI: Palpation: mild abdominal tenderness, in all quadrants, rebound tenderness, is not appreciated. Vital Signs: 13:45 BP 175 / 110; Pulse 75; Pulse Ox 99% on R/A; jp3 13:46 BP 176 / 115; Pulse 81; Resp 16; Temp 97.8(TE); Pulse Ox 100% on R/A; Weight 123.38 kg; ss Height 5 ft. 7 in. (170.18 cm); Pain 8/10; 14:30 BP 154 / 93; Pulse 75; Resp 16; Pulse Ox 97% on R/A; Pain 8/10; em 15:30 BP 160 / 115; Pulse 85; Resp 20; Pulse Ox 99% ; Pain 4/10; em 13:46 Body Mass Index 42.60 (123.38 kg, 170.18 cm) ss 15:30 was unable to take BP medication this morning, reports will go home and take BP em medication if discharged, provider notified MDM: 14:09 Patient medically screened. gs 16:05 Differential diagnosis: pancreatitis, viral gastroenteritis, gastroenteritis, crohns gs flare. Data reviewed: vital signs, nurses notes, old medical records, lab test result(s). Response to treatment: the patient's symptoms have markedly improved after treatment, the patient's condition has returned to base line, and as a result, I will discharge patient. 01/15 13:32 Order name: Urine Microscopic Only; Complete Time: 14:09 01/15 13:48 Order name: Urine Dipstick--Ancillary (enter results); Complete Time: 14:09 01/15 13:48 Order name: Urine --Ancillary (enter results); Complete Time: 14:09 01/15 14:28 Order name: Basic Metabolic Panel; Complete Time: 15:44 01/15 14:28 Order name: CBC with Diff; Complete Time: 15:44 01/15 14:28 Order name: Hepatic Function; Complete Time: 15:44 01/15 13:32 Order name: Urine Test (obtain specimen); Complete Time: 13:45 01/15 13:32 Order name: Urine Dipstick-Ancillary (obtain specimen); Complete Time: 13:45 01/15 14:28 Order name: Lipase; Complete Time: 15:44 01/15 14:28 Order name: IV Saline Lock; Complete Time: 14:53 01/15 14:28 Order name: Labs collected and sent; Complete Time: 14:53 gs Administered Medications: 14:48 Drug: Benadryl 25 mg Route: IVP; Site: left antecubital; ss 15:30 Follow up: Response: No adverse reaction; Nausea is decreased em 14:50 Drug: Dilaudid 1 mg {Note: given in 50 bag of NS.} Route: IVP; Site: left antecubital; ss 15:30 Follow up: Response: No adverse reaction; Pain is decreased em Disposition: 01/15/19 15:47 Discharged to Home. Impression: Generalized abdominal pain. - Condition is Stable. - Discharge Instructions: Abdominal Pain, Adult. - Medication Reconciliation Form, Thank You Letter, Antibiotic Education, Prescription Opioid Use form. - Follow up: Private Physician; When: 2 - 3 days; Reason: Re-evaluation by your physician. Signatures: Dispatcher [employer] Storm Valentine, Akiko Atkinson LVN, RN RN ss Starr, Gregory, MD MD gs Corrections: (The following items were deleted from the chart) 16:12 15:47 01/15/2019 15:47 Discharged to Home. Impression: Generalized abdominal pain. em Condition is Stable. Forms are Medication Reconciliation Form, Thank You Letter, Antibiotic Education, Prescription Opioid Use. Follow up: Private Physician; When: 2 - 3 days; Reason: Re-evaluation by your physician. gs
[2019-01-15 18:37] VITALS: TEMP 97.8
[2019-01-15 18:41] VITALS: BP 160/115; O2SAT 99
== END 2019-01-15 16:12 | disposition home or self-care (01) ==
LOC: ER 13:27
DX: R10.84 Generalized abdominal pain (principal); I10 Essential (primary) hypertension; Z88.1 Allergy status to other antibiotic agents; Z88.5 Allergy status to narcotic agent; Z88.8 Allergy status to other drugs, medicaments and biological substances
CPT/HCPCS: 85025; 80048; 36415; 81025; 80076; 83690; 96375; 96374; 99284; J1200; J1170; 81003; 81015

== ENCOUNTER 2019-04-11 13:29 | Emergency (ER) | payer OTHER ==
--- OUTSIDE RECORDS SUMMARY | 2019-04-11 13:41 | XMS REPORT ---
:1970 Author Organization [facility] Address [address] [place] [address] Dr. Kumar [address] [place] [address] Care Team Providers Name Role Phone HARINI [...] (BEAKER) (test 298 mg/dL 70-110 TESTED AT [address] vvbr=1179) [place] [id number] POCT-GLUCOSE [id number] 12:11:00 Test Item Value Reference Range Comments POC-GLUCOSE METER (BEAKER) 331 mg/dL 70-110 Notified NAT SOUZA/TESTED AT [facility] (test wkbg=0204) [address] [place], [place] [id number] POCT-GLUCOSE [id number] 10:55:00 Test Item Value Reference Range Comments POC-GLUCOSE METER (BEAKER) 365 mg/dL 70-110 TESTED AT [address] (test ntew=2236) [place] [id number] POCT-GLUCOSE [id number] 08:44:00 Test Item Value Reference Range Comments POC-GLUCOSE METER (BEAKER) 291 mg/dL 70-110 TESTED AT [address] (test pmit=1962) [place] [address] LIPID [id number] 05:56:00 Test Item Value Reference Range Comments TRIGLYCERIDES (BEAKER) (test wwss=795) 279 mg/dL CHOLESTEROL (BEAKER) (test pcqr=111) 119 mg/dL HDL CHOLESTEROL (BEAKER) (test ixgf=461) 22 mg/dL LDL CHOLESTEROL CALCULATED (BEAKER) (test 41 mg/dL mmst=123) Triglyceride Reference Range: Low Risk <150 Borderline 150- 199 High Risk 200-499 Very High Risk >=500Cholesterol Reference Range: Low Risk <200 Borderline 200-239 High Risk > 240HDL Cholesterol Reference Range: Low Risk >=60 High Risk <40LDL Cholesterol Reference Range: Optimal <100 Near Optimal 100-129 Borderline 130-159 High 160-189 Very High >=190POCT-GLUCOSE [id number] 21:50:00 Test Item Value Reference Range Comments POC-GLUCOSE METER (BEAKER) 318 mg/dL 70-110 TESTED AT [address] (test tdsh=7515) [place] [address] POCT-GLUCOSE [id number] 18:04:00 Test Item Value Reference Range Comments POC-GLUCOSE METER (BEAKER) 238 mg/dL 70-110 TESTED AT [address] (test bnrg=4869) [facility] [address] POCT-GLUCOSE [id number] 12:22:00 Test Item Value Reference Range Comments POC-GLUCOSE METER (BEAKER) 290 mg/dL 70-110 TESTED AT [address] (test gkuw=7138) [facility] [address] POCT-GLUCOSE [id number] 09:20:00 Test Item Value Reference Range Comments POC-GLUCOSE METER (BEAKER) 293 mg/dL 70-110 TESTED AT [address] (test mbdb=6416) [place] [address] POCT-GLUCOSE [id number] 21:00:00 Test Item Value Reference Range Comments POC-GLUCOSE METER (BEAKER) 225 mg/dL 70-110 TESTED AT [address] (test pgzo=6222) [facility] [address] CT, CAROTID, [id number] 18:01:00FINAL REPORT CT angiogram of the upper [...] [place] Verified Date/Time: 08/30/2017 18:01:31 Reading Location: [address] Neuro Reading Room [facility] [id number] 18:01:00FINAL REPORT CT angiogram of the upper [...] [place] Verified Date/Time: 08/30/2017 18:01:31 Reading Location: [facility] C013V Neuro Reading Room POCT-GLUCOSE [id number] 17:21: 00 Test Item Value Reference Range Comments POC-GLUCOSE METER (BEAKER) 256 mg/dL 70-110 TESTED AT [address] (test idum=4292) [place] [address] POCT-GLUCOSE [id number] 12:00:00 Test Item Value Reference Range Comments POC-GLUCOSE METER (BEAKER) 289 mg/dL 70-110 TESTED AT [address] (test zsgz=8558) [place] [address] BASIC METABOLIC [id number] 10:12:00 Test Item Value Reference Range Comments SODIUM (BEAKER) (test 137 meq/L 136-145 nqhl=775) POTASSIUM (BEAKER) (test 4.1 meq/L 3.5-5.1 hlra=822) CHLORIDE (BEAKER) (test 106 meq/L 98-107 ibiv=039) CO2 (BEAKER) (test 24 meq/L 22-29 rero=940) BLOOD UREA NITROGEN 11 mg/dL 7-21 (BEAKER) (test qlct=164) CREATININE (BEAKER) (test 0.81 mg/dL 0.57-1.25 oimw=992) GLUCOSE RANDOM (BEAKER) 264 mg/dL 70-105 (test eprf=966) CALCIUM (BEAKER) (test 9.1 mg/dL 8.4-10.2 hvdy=247) EGFR (BEAKER) (test 75 mL/min/1.73 sq m ESTIMATED GFR IS NOT giju=1516) ACCURATE CREATININE CLEARANCE IN PREDICTING GLOMERULAR FILTRATION RATE. ESTIMATED GFR IS NOT APPLICABLE FOR DIALYSIS PATIENTS. POCT-GLUCOSE [id number] 08:42:00 Test Item Value Reference Range Comments POC-GLUCOSE METER (BEAKER) 259 mg/dL 70-110 TESTED AT [address] (test tzki=8610) [place] [address] TROPONIN [id number] 06:14:00 Test Item Value Reference Range Comments TROPONIN I (BEAKER) (test uqns=081) < ng/mL 0.00-0.03 Troponin I (TnI) levels [...] and persistent tachyarrhythmia.CBC W/PLT COUNT & AUTO [id number] 06:09:00 Test Item Value Reference Range Comments WHITE BLOOD CELL COUNT (BEAKER) (test uxqy=101) 6.6 K/ L 3.5-10.5 RED BLOOD CELL COUNT (BEAKER) (test gcop=609) 4.40 M/ L 3.93-5.22 HEMOGLOBIN (BEAKER) (test zzcg=618) 11.8 GM/DL 11.2-15.7 HEMATOCRIT (BEAKER) (test ozzt=189) 36.1 % 34.1-44.9 MEAN CORPUSCULAR VOLUME (BEAKER) (test rccv=276) 82.0 fL 79.4-94.8 MEAN CORPUSCULAR HEMOGLOBIN (BEAKER) (test 26.8 pg 25.6-32.2 ufti=794) MEAN CORPUSCULAR HEMOGLOBIN CONC (BEAKER) (test 32.7 GM/DL 32.2-35.5 euun=225) RED CELL DISTRIBUTION WIDTH (BEAKER) (test 13.2 % 11.7-14.4 sjxp=925) PLATELET COUNT (BEAKER) (test acon=858) 231 K/CU MM 150-450 MEAN PLATELET VOLUME (BEAKER) (test xhig=853) 10.9 fL 9.4-12.3 NUCLEATED RED BLOOD CELLS (BEAKER) (test 0 /100 WBC 0-0 cshr=803) NEUTROPHILS RELATIVE PERCENT (BEAKER) (test 50 % ykhl=801) LYMPHOCYTES RELATIVE PERCENT (BEAKER) (test 41 % hxxl=604) MONOCYTES RELATIVE PERCENT (BEAKER) (test 6 % arhj=772) EOSINOPHILS RELATIVE PERCENT (BEAKER) (test 2 % nywr=748) BASOPHILS RELATIVE PERCENT (BEAKER) (test 1 % uyqj=445) NEUTROPHILS ABSOLUTE COUNT (BEAKER) (test 3.34 K/ L 1.56-6.13 ihgr=008) LYMPHOCYTES ABSOLUTE COUNT (BEAKER) (test 2.67 K/ L 1.18-3.74 bjde=744) MONOCYTES ABSOLUTE COUNT (BEAKER) (test 0.40 K/ L 0.24-0.36 aqid=297) EOSINOPHILS ABSOLUTE COUNT (BEAKER) (test 0.15 K/ L 0.04-0.36 vziy=336) BASOPHILS ABSOLUTE COUNT (BEAKER) (test 0.03 K/ L 0.01-0.08 iwhg=195) IMMATURE GRANULOCYTES-RELATIVE PERCENT (BEAKER) 0 % 0-1 (test siuj=3740) RAD, CHEST, 1 VIEW, NON [id number] 04:23:00Reason for exam:->chest painShould this be performed at the bedside?->YesFINAL REPORT Comparison examination: None No pneumothorax, focal pulmonary consolidation, or significant pleural effusion. Normal cardiomediastinal contours. Normal skeleton and soft tissues. Impression: No acute abnormality. Signed: Ervin Jenkins Verified Date/Time: 08/30/2017 04:23 :04 Reading Location: [address] Reading Room POCT-GLUCOSE [id number] 21:18:00 Test Item Value Reference Range Comments POC-GLUCOSE METER (BEAKER) 151 mg/dL 70-110 TESTED AT [address] (test wldr=5152) [facility] [address] POCT-GLUCOSE [id number] 17:59:00 Test Item Value Reference Range Comments POC-GLUCOSE METER (BEAKER) 146 mg/dL 70-110 TESTED AT [facility] [address] [facility] (test fpwm=3557) [facility] [address] HEMOGLOBIN [id number] 15:56:00 Test Item Value Reference Range Comments HEMOGLOBIN A1C (BEAKER) (test drwb=125) 13.7 % 4.3-6.1 CT, BRAIN, WITHOUT [id number] 14:52:00FINAL REPORT CT head without contrast. Comparisons: [...] Petersen Verified Date/Time: 08/29/2017 14:52:09 Reading Location: [address] Neuro Reading Room POCT-GLUCOSE [id number] 14:17:00 Test Item Value Reference Range Comments POC-GLUCOSE METER (BEAKER) 423 mg/dL 70-110 Notified NAT SOUZA/TESTED AT [facility] (test bgzw=5953) [address] [facility] [address] VITAMIN [id number] 06:48:00 Test Item Value Reference Range Comments VITAMIN B12 (BEAKER) (test iyrw=307) 300 pg/mL 213-816 TSH/FREE T4 IF [id number] 06:48:00 Test Item Value Reference Range Comments THYROID STIMULATING HORMONE (BEAKER) (test 1.55 uIU/mL 0.35-4.94 nwoc=797) CBC W/PLT COUNT & AUTO [id number] 05:10:00 Test Item Value Reference Range Comments WHITE BLOOD CELL COUNT (BEAKER) (test ziac=431) 8.6 K/ L 3.5-10.5 RED BLOOD CELL COUNT (BEAKER) (test psob=530) 4.62 M/ L 3.93-5.22 HEMOGLOBIN (BEAKER) (test ewon=139) 12.2 GM/DL 11.2-15.7 HEMATOCRIT (BEAKER) (test hjpv=120) 42.2 % 34.1-44.9 MEAN CORPUSCULAR VOLUME (BEAKER) (test wcni=458) 91.3 fL 79.4-94.8 MEAN CORPUSCULAR HEMOGLOBIN (BEAKER) (test 26.4 pg 25.6-32.2 vtsy=989) MEAN CORPUSCULAR HEMOGLOBIN CONC (BEAKER) (test 28.9 GM/DL 32.2-35.5 rjgg=142) RED CELL DISTRIBUTION WIDTH (BEAKER) (test 13.2 % 11.7-14.4 ribd=772) PLATELET COUNT (BEAKER) (test kuux=086) 80 K/CU MM 150-450 MEAN PLATELET VOLUME (BEAKER) (test batd=168) 10.9 fL 9.4-12.3 NUCLEATED RED BLOOD CELLS (BEAKER) (test 0 /100 WBC 0-0 gdba=666) NEUTROPHILS RELATIVE PERCENT (BEAKER) (test 45 % nkod=791) LYMPHOCYTES RELATIVE PERCENT (BEAKER) (test 46 % tppf=204) MONOCYTES RELATIVE PERCENT (BEAKER) (test 6 % oqoa=817) EOSINOPHILS RELATIVE PERCENT (BEAKER) (test 2 % ogrm=384) BASOPHILS RELATIVE PERCENT (BEAKER) (test 1 % ztyk=589) NEUTROPHILS ABSOLUTE COUNT (BEAKER) (test 3.91 K/ L 1.56-6.13 eodb=020) LYMPHOCYTES ABSOLUTE COUNT (BEAKER) (test 3.95 K/ L 1.18-3.74 mvkw=076) MONOCYTES ABSOLUTE COUNT (BEAKER) (test phqy=759) 0.54 K/ L 0.24-0.36 EOSINOPHILS ABSOLUTE COUNT (BEAKER) (test 0.13 K/ L 0.04-0.36 tbuc=422) BASOPHILS ABSOLUTE COUNT (BEAKER) (test pxny=037) 0.07 K/ L 0.01-0.08 IMMATURE GRANULOCYTES-RELATIVE PERCENT (BEAKER) 0 % 0-1 (test wmcj=2649) URINALYSIS W/ [id number] 23:32:00 Test Item Value Reference Range Comments COLOR (BEAKER) (test khnj=740) Brown CLARITY (BEAKER) (test xwps=346) Hazy SPECIFIC GRAVITY UA (BEAKER) (test nnzk=464) 1.016 1.001-1.035 PH UA (BEAKER) (test gpqb=052) 5.0 5.0-8.0 PROTEIN UA (BEAKER) (test wsja=606) 30 mg/dL Negative GLUCOSE UA (BEAKER) (test semb=639) 300 mg/dL Negative KETONES UA (BEAKER) (test sppi=033) Negative Negative BILIRUBIN UA (BEAKER) (test jwto=971) Positive Negative BLOOD UA (BEAKER) (test tgxb=242) Negative Negative NITRITE UA (BEAKER) (test hyxd=099) Positive Negative LEUKOCYTE ESTERASE UA (BEAKER) (test ydps=769) Small Negative UROBILINOGEN UA (BEAKER) (test pfmh=516) 3.0 mg/dL 0.2-1.0 RBC UA (BEAKER) (test tfcs=779) 2 /HPF WBC UA (BEAKER) (test zxon=061) 24 /HPF BACTERIA (BEAKER) (test ldok=309) Many MUCUS (BEAKER) (test fqps=7657) Rare SQUAMOUS EPITHELIAL (BEAKER) (test shyz=349) 7 /HPF HYALINE CASTS (BEAKER) (test dwpb=530) 16 /LPF CASTS (BEAKER) (test bhkb=5989) 16 /LPF YEAST (BEAKER) (test xjaj=0062) Occasional SOURCE(BEAKER) (test jmkm=6681) TROPONIN [id number] 23:12:00 Test Item Value Reference Range Comments TROPONIN I (BEAKER) (test ofyq=680) < ng/mL 0.00-0.03 Troponin I (TnI) levels [...] acute neurological disease, and persistent tachyarrhythmia.BASIC METABOLIC [id number] 23:05:00 Test Item Value Reference Range Comments SODIUM (BEAKER) (test 128 meq/L 136-145 yivt=989) POTASSIUM (BEAKER) (test 4.9 meq/L 3.5-5.1 Specimen moderately ityc=042) hemolyzed CHLORIDE (BEAKER) (test 100 meq/L 98-107 pbwt=791) CO2 (BEAKER) (test 13 meq/L 22-29 ygwz=050) BLOOD UREA NITROGEN 29 mg/dL 7-21 (BEAKER) (test gqgq=700) CREATININE (BEAKER) (test 1.55 mg/dL 0.57-1.25 Specimen moderately aplh=899) hemolyzed GLUCOSE RANDOM (BEAKER) 326 mg/dL 70-105 (test xnqu=868) CALCIUM (BEAKER) (test 9.6 mg/dL 8.4-10.2 qvct=117) EGFR (BEAKER) (test 36 mL/min/1.73 sq m ESTIMATED GFR IS NOT nfer=0584) ACCURATE CREATININE CLEARANCE IN PREDICTING GLOMERULAR FILTRATION RATE. ESTIMATED GFR IS NOT APPLICABLE FOR DIALYSIS PATIENTS. POCT-GLUCOSE [id number] 20:49:00 Test Item Value Reference Range Comments POC-GLUCOSE METER (BEAKER) 376 mg/dL 70-110 Notified NAT SOUZA/TESTED AT [facility] (test wlwb=6176) [address] [place] [address]
[2019-04-11 14:43] LABS: Urine Bacteria <20 /HPF (<20); Urine Culture Reflex Order NOT NEEDED; Urine RBC <5 /HPF (NONE SEEN)
--- NOTE | 2019-04-11 14:59 | ER ---
Nurse's Notes [facility] Name: Elly Clarke Age: 49 yrs Sex: Female : 1970 Arrival Date: 04/11/2019 Time: 13:36 Bed 18 Private MD: Diagnosis: Low back pain;Radiculopathy, lumbar region Presentation: 04/11 13:44 Presenting complaint: Patient states: was at [employer] Thursday and there was a lot of iw stairs, has pain to spine, radiates to left leg, shooting pains. Transition of care: patient was not received from another setting of care. Onset of symptoms was April 08, 2019. Risk Assessment: Do you want to hurt yourself or someone else? Patient reports no desire to harm self or others. Initial Sepsis Screen: Does the patient meet any 2 criteria? No. Patient's initial sepsis screen is negative. Does the patient have a suspected source of infection? No. Patient's initial sepsis screen is negative. Care prior to arrival: None. 13:44 Method Of Arrival: Wheelchair iw 13:44 Acuity: HANNAH 4 iw Triage Assessment: 13:56 General: Appears in no apparent distress. comfortable, Behavior is cooperative, bp appropriate for age, anxious. Pain: Complains of pain in back. EENT: No deficits noted. Neuro: No deficits noted. Cardiovascular: No deficits noted. Respiratory: No deficits noted. GI: No signs and/or symptoms were reported involving the gastrointestinal system. : No signs and/or symptoms were reported regarding the genitourinary system. Derm: No deficits noted. Musculoskeletal: Circulation, motion, and sensation intact. Range of motion: intact in all extremities. 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 - Hysterectomy iw Historical: - Allergies: 13:46 Claritin (insomnia); iw 13:46 Compazine (Seizures); iw 13:46 Demerol (HEART RACING); iw 13:46 (Hives); iw 13:46 Morphine (RACING HEART); iw - Home Meds: 13:46 Lantus 100 unit/mL Sub-Q soln 60 unit twice a day [Active]; metformin 500 mg Oral tab 1 iw tab 2 times per day [Active]; tizanidine 2 mg Oral cap 2 caps twice a day [Active]; tramadol 50 mg Oral tab 1 tab three times a day [Active]; - PMHx: 13:46 Arthritis; Chrohns; Chronic pain; Diabetes - NIDDM; Dramatic migraine events; High iw Cholesterol; Hypertension; Migraines; Pancreatitis; Gastroparesis; spinal stenosis; - PSHx: 13:46 Tonsillectomy; Cholecystectomy; Appendectomy; Hysterectomy; pancreatic sx; knee sx; iw - Immunization history:: Adult Immunizations up to date. - Social history:: Smoking status: Patient/guardian denies using tobacco. - Ebola Screening: : Patient negative for fever greater than or equal to 101.5 degrees Fahrenheit, and additional compatible Ebola Virus Disease symptoms Patient denies exposure to infectious person Patient denies travel to an Ebola-affected area in the 21 days before illness onset No symptoms or risks identified at this time. Screenin:57 Abuse screen: Denies threats or abuse. Denies injuries from another. Nutritional bp screening: No deficits noted. Tuberculosis screening: No symptoms or risk factors identified. Fall Risk None identified. Assessment: 13:56 General: SEE TRIAGE NOTE. Neuro: Level of Consciousness is awake, alert, obeys bp commands, Oriented to person, place, time, situation, Appropriate for age Gait is steady. 15:10 Reassessment: PT ON SHOT TIME. bp 15:35 Reassessment: PT D/C HOME AMBULATORY WITH FAMILY, DX WITH MUSCULOSKELETAL PAIN. bp Vital Signs: 13:46 BP 138 / 108; Pulse 69; Resp 16; Temp 97.5; Pulse Ox 98% on R/A; Weight 95.71 kg; iw Height 5 ft. 7 in. (170.18 cm); Pain 7/10; 15:03 BP 120 / 76; Pulse 63; Resp 16; Pulse Ox 99% ; bp 13:46 Body Mass Index 33.05 (95.71 kg, 170.18 cm) iw ED Course: 13:36 Patient arrived in ED. mr 13:44 Shira Sims F[facility]-C [facility] snw 13:44 Wil [place] MD is Attending Physician. snw 13:45 Triage completed. iw 13:46 Arm band placed on. iw 13:56 Real Muro, NAT is Primary Nurse. bp 13:57 Patient has correct armband on for positive identification. Bed in low position. Call bp light in reach. Side rails up X2. 14:25 Urine Culture Sent. lt1 14:25 Urine Microscopic Only Sent. lt1 15:36 No provider procedures requiring assistance completed. Patient did not have IV access bp during this emergency room visit. Administered Medications: 15:10 Drug: TORadol 30 mg Route: IM; Site: left deltoid; bp 15:36 Follow up: Response: Pain is decreased bp Outcome: 14:59 Discharge ordered by MD. nicolas 15:36 Discharged to home ambulatory, with family. bp 15:36 Condition: stable 15:36 Discharge instructions given to patient, Instructed on discharge instructions, follow up and referral plans. medication usage, Demonstrated understanding of instructions, follow-up care, medications, Prescriptions given X 2. 15:37 Patient left the ED. bp Signatures: Shira Sims, [employer]-C [employer] HOSTESS-Kelsyw Angelika Cardenas Kenisha Prince, RN Real Villagomez RN RN bp Tran, Leah lt1
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
[2019-04-11] MEDS ORDERED: KETOROLAC 30 MG/ML INJ ONE (15:14)
[2019-04-11 17:19] VITALS: TEMP 97.5
[2019-04-11 17:21] VITALS: BP 120/76; O2SAT 99
[2019-04-11 20:10] LABS: Urine Blood NEGATIVE (NEG); Urine Glucose 3+ (NEG); Urine Protein NEGATIVE (NEG); Urine Specific Gravity 1.015 (1.005-1.030); Urine pH 5.5 (5.0-7.0)
== END 2019-04-11 15:37 | disposition home or self-care (01) ==
LOC: ER 13:29
DX: M54.16 Radiculopathy, lumbar region (principal); Z88.6 Allergy status to analgesic agent; Z88.8 Allergy status to other drugs, medicaments and biological substances; E11.9 Type 2 diabetes mellitus without complications; I10 Essential (primary) hypertension; E78.00 Pure hypercholesterolemia, unspecified
CPT/HCPCS: 81003; 81015; 87086; 87088; 96372; 99283

== ENCOUNTER 2019-04-24 20:53 | Emergency (ER) | payer OTHER ==
--- OUTSIDE RECORDS SUMMARY | 2019-04-24 20:56 | XMS REPORT ---
:1970 Author Organization [facility] Address [address] [place] [address] [address]. Kumar [address] [place] [address] Care Team Providers Name Role Phone HARINI [...] (BEAKER) (test 298 mg/dL 70-110 TESTED AT [address] tzeo=1988) [place] [id number] POCT-GLUCOSE [id number] 12:11:00 Test Item Value Reference Range Comments POC-GLUCOSE METER (BEAKER) 331 mg/dL 70-110 Notified NAT SOUZA/TESTED AT [facility] (test nzro=8566) [address] [place], [place] [id number] POCT-GLUCOSE [id number] 10:55:00 Test Item Value Reference Range Comments POC-GLUCOSE METER (BEAKER) 365 mg/dL 70-110 TESTED AT [address] (test oulp=2184) [place] [id number] POCT-GLUCOSE [id number] 08:44:00 Test Item Value Reference Range Comments POC-GLUCOSE METER (BEAKER) 291 mg/dL 70-110 TESTED AT [address] (test njzp=9496) [place] [address] LIPID [id number] 05:56:00 Test Item Value Reference Range Comments TRIGLYCERIDES (BEAKER) (test floe=057) 279 mg/dL CHOLESTEROL (BEAKER) (test ydms=371) 119 mg/dL HDL CHOLESTEROL (BEAKER) (test vhnj=206) 22 mg/dL LDL CHOLESTEROL CALCULATED (BEAKER) (test 41 mg/dL nrlb=929) Triglyceride Reference Range: Low Risk <150 Borderline 150- 199 High Risk 200-499 Very High Risk >=500Cholesterol Reference Range: Low Risk <200 Borderline 200-239 High Risk > 240HDL Cholesterol Reference Range: Low Risk >=60 High Risk <40LDL Cholesterol Reference Range: Optimal <100 Near Optimal 100-129 Borderline 130-159 High 160-189 Very High >=190POCT-GLUCOSE [id number] 21:50:00 Test Item Value Reference Range Comments POC-GLUCOSE METER (BEAKER) 318 mg/dL 70-110 TESTED AT [address] (test wiyi=6411) [place] [id number] POCT-GLUCOSE [id number] 18:04:00 Test Item Value Reference Range Comments POC-GLUCOSE METER (BEAKER) 238 mg/dL 70-110 TESTED AT [address] (test jthg=0973) [facility] [address] POCT-GLUCOSE [id number] 12:22:00 Test Item Value Reference Range Comments POC-GLUCOSE METER (BEAKER) 290 mg/dL 70-110 TESTED AT [address] (test jyqc=4631) [facility] [address] POCT-GLUCOSE [id number] 09:20:00 Test Item Value Reference Range Comments POC-GLUCOSE METER (BEAKER) 293 mg/dL 70-110 TESTED AT [address] (test wrec=1774) [place] [address] POCT-GLUCOSE [id number] 21:00:00 Test Item Value Reference Range Comments POC-GLUCOSE METER (BEAKER) 225 mg/dL 70-110 TESTED AT [address] (test vkpu=6356) [facility] [address] [address], CAROTID, [id number] 18:01:00FINAL REPORT CT angiogram of the upper [...] Petersen Verified Date/Time: 08/30/2017 18:01:31 Reading Location: [address] Neuro Reading Room [facility] [id number] 18:01:00FINAL REPORT CT angiogram of the upper [...] Unremarkable CTA upper chest, neck, head. Signed: Irqa Peterseneport Verified Date/Time: 08/30/2017 18:01:31 Reading Location: [facility] C013V Neuro Reading Room POCT-GLUCOSE [id number] 17:21: 00 Test Item Value Reference Range Comments POC-GLUCOSE METER (BEAKER) 256 mg/dL 70-110 TESTED AT [address] (test hggd=9145) [place] [address] POCT-GLUCOSE [id number] 12:00:00 Test Item Value Reference Range Comments POC-GLUCOSE METER (BEAKER) 289 mg/dL 70-110 TESTED AT [address] (test ixij=8157) [place] [address] BASIC METABOLIC [id number] 10:12:00 Test Item Value Reference Range Comments SODIUM (BEAKER) (test 137 meq/L 136-145 kncv=528) POTASSIUM (BEAKER) (test 4.1 meq/L 3.5-5.1 mwqf=293) CHLORIDE (BEAKER) (test 106 meq/L 98-107 ubzw=599) CO2 (BEAKER) (test 24 meq/L 22-29 jcgz=722) BLOOD UREA NITROGEN 11 mg/dL 7-21 (BEAKER) (test lity=408) CREATININE (BEAKER) (test 0.81 mg/dL 0.57-1.25 tckj=268) GLUCOSE RANDOM (BEAKER) 264 mg/dL 70-105 (test mnjc=474) CALCIUM (BEAKER) (test 9.1 mg/dL 8.4-10.2 zruq=372) EGFR (BEAKER) (test 75 mL/min/1.73 sq m ESTIMATED GFR IS NOT anem=3192) ACCURATE CREATININE CLEARANCE IN PREDICTING GLOMERULAR FILTRATION RATE. ESTIMATED GFR IS NOT APPLICABLE FOR DIALYSIS PATIENTS. POCT-GLUCOSE [id number] 08:42:00 Test Item Value Reference Range Comments POC-GLUCOSE METER (BEAKER) 259 mg/dL 70-110 TESTED AT [address] (test lqet=1188) [place] [id number] TROPONIN [id number] 06:14:00 Test Item Value Reference Range Comments TROPONIN I (BEAKER) (test kcwk=406) < ng/mL 0.00-0.03 Troponin I (TnI) levels [...] and persistent tachyarrhythmia.CBC W/PLT COUNT & AUTO [id number] 06:09:00 Test Item Value Reference Range Comments WHITE BLOOD CELL COUNT (BEAKER) (test fevt=158) 6.6 K/ L 3.5-10.5 RED BLOOD CELL COUNT (BEAKER) (test dcfz=055) 4.40 M/ L 3.93-5.22 HEMOGLOBIN (BEAKER) (test sotc=707) 11.8 GM/DL 11.2-15.7 HEMATOCRIT (BEAKER) (test mjmy=016) 36.1 % 34.1-44.9 MEAN CORPUSCULAR VOLUME (BEAKER) (test tdzq=324) 82.0 fL 79.4-94.8 MEAN CORPUSCULAR HEMOGLOBIN (BEAKER) (test 26.8 pg 25.6-32.2 fmqx=652) MEAN CORPUSCULAR HEMOGLOBIN CONC (BEAKER) (test 32.7 GM/DL 32.2-35.5 vjgh=448) RED CELL DISTRIBUTION WIDTH (BEAKER) (test 13.2 % 11.7-14.4 xzjh=545) PLATELET COUNT (BEAKER) (test qyna=587) 231 K/CU MM 150-450 MEAN PLATELET VOLUME (BEAKER) (test qdnd=647) 10.9 fL 9.4-12.3 NUCLEATED RED BLOOD CELLS (BEAKER) (test 0 /100 WBC 0-0 zcha=570) NEUTROPHILS RELATIVE PERCENT (BEAKER) (test 50 % uccc=863) LYMPHOCYTES RELATIVE PERCENT (BEAKER) (test 41 % oipj=866) MONOCYTES RELATIVE PERCENT (BEAKER) (test 6 % ofgr=454) EOSINOPHILS RELATIVE PERCENT (BEAKER) (test 2 % phmq=245) BASOPHILS RELATIVE PERCENT (BEAKER) (test 1 % drsh=028) NEUTROPHILS ABSOLUTE COUNT (BEAKER) (test 3.34 K/ L 1.56-6.13 affm=465) LYMPHOCYTES ABSOLUTE COUNT (BEAKER) (test 2.67 K/ L 1.18-3.74 inlk=897) MONOCYTES ABSOLUTE COUNT (BEAKER) (test 0.40 K/ L 0.24-0.36 gzer=480) EOSINOPHILS ABSOLUTE COUNT (BEAKER) (test 0.15 K/ L 0.04-0.36 ywpz=043) BASOPHILS ABSOLUTE COUNT (BEAKER) (test 0.03 K/ L 0.01-0.08 yhhl=771) IMMATURE GRANULOCYTES-RELATIVE PERCENT (BEAKER) 0 % 0-1 (test fxba=4903) RAD, CHEST, 1 VIEW, NON [id number] 04:23:00Reason for exam:->chest painShould this be performed at the bedside?->YesFINAL REPORT Comparison examination: None No pneumothorax, focal pulmonary consolidation, or significant pleural effusion. Normal cardiomediastinal contours. Normal skeleton and soft tissues. Impression: No acute abnormality. Signed: Ervin Jenkins Verified Date/Time: 08/30/2017 04:23 :04 Reading Location: [address] Reading Room POCT-GLUCOSE [id number] 21:18:00 Test Item Value Reference Range Comments POC-GLUCOSE METER (BEAKER) 151 mg/dL 70-110 TESTED AT [address] (test ygsy=6937) [facility] [address] POCT-GLUCOSE [id number] 17:59:00 Test Item Value Reference Range Comments POC-GLUCOSE METER (BEAKER) 146 mg/dL 70-[address] [facility] [address] [facility] (test pqdr=5892) [facility] [address] HEMOGLOBIN [id number] 15:56:00 Test Item Value Reference Range Comments HEMOGLOBIN A1C (BEAKER) (test quoy=175) 13.7 % 4.3-6.1 CT, BRAIN, WITHOUT [id number] 14:52:00FINAL REPORT CT head without contrast. Comparisons: [...] Petersen Verified Date/Time: 08/29/2017 14:52:09 Reading Location: [address] Neuro Reading Room POCT-GLUCOSE [id number] 14:17:00 Test Item Value Reference Range Comments POC-GLUCOSE METER (BEAKER) 423 mg/dL 70-110 Notified NAT SUOZA/TESTED AT [facility] (test kjck=3245) [address] [facility] [address] VITAMIN [id number] 06:48:00 Test Item Value Reference Range Comments VITAMIN B12 (BEAKER) (test idia=526) 300 pg/mL 213-816 TSH/FREE T4 IF [id number] 06:48:00 Test Item Value Reference Range Comments THYROID STIMULATING HORMONE (BEAKER) (test 1.55 uIU/mL 0.35-4.94 payl=418) CBC W/PLT COUNT & AUTO [id number] 05:10:00 Test Item Value Reference Range Comments WHITE BLOOD CELL COUNT (BEAKER) (test dxqj=956) 8.6 K/ L 3.5-10.5 RED BLOOD CELL COUNT (BEAKER) (test idmx=810) 4.62 M/ L 3.93-5.22 HEMOGLOBIN (BEAKER) (test hqpb=851) 12.2 GM/DL 11.2-15.7 HEMATOCRIT (BEAKER) (test ptpe=429) 42.2 % 34.1-44.9 MEAN CORPUSCULAR VOLUME (BEAKER) (test evrv=528) 91.3 fL 79.4-94.8 MEAN CORPUSCULAR HEMOGLOBIN (BEAKER) (test 26.4 pg 25.6-32.2 szyu=868) MEAN CORPUSCULAR HEMOGLOBIN CONC (BEAKER) (test 28.9 GM/DL 32.2-35.5 ubgj=831) RED CELL DISTRIBUTION WIDTH (BEAKER) (test 13.2 % 11.7-14.4 jhws=640) PLATELET COUNT (BEAKER) (test hrtw=545) 80 K/CU MM 150-450 MEAN PLATELET VOLUME (BEAKER) (test klrf=481) 10.9 fL 9.4-12.3 NUCLEATED RED BLOOD CELLS (BEAKER) (test 0 /100 WBC 0-0 bzal=294) NEUTROPHILS RELATIVE PERCENT (BEAKER) (test 45 % lheb=693) LYMPHOCYTES RELATIVE PERCENT (BEAKER) (test 46 % ymeg=176) MONOCYTES RELATIVE PERCENT (BEAKER) (test 6 % kklo=439) EOSINOPHILS RELATIVE PERCENT (BEAKER) (test 2 % oqsd=897) BASOPHILS RELATIVE PERCENT (BEAKER) (test 1 % lmfi=106) NEUTROPHILS ABSOLUTE COUNT (BEAKER) (test 3.91 K/ L 1.56-6.13 fyzj=473) LYMPHOCYTES ABSOLUTE COUNT (BEAKER) (test 3.95 K/ L 1.18-3.74 pttx=862) MONOCYTES ABSOLUTE COUNT (BEAKER) (test eunf=501) 0.54 K/ L 0.24-0.36 EOSINOPHILS ABSOLUTE COUNT (BEAKER) (test 0.13 K/ L 0.04-0.36 jmwx=821) BASOPHILS ABSOLUTE COUNT (BEAKER) (test mtcs=756) 0.07 K/ L 0.01-0.08 IMMATURE GRANULOCYTES-RELATIVE PERCENT (BEAKER) 0 % 0-1 (test tuje=1744) URINALYSIS W/ [id number] 23:32:00 Test Item Value Reference Range Comments COLOR (BEAKER) (test vdsw=892) Brown CLARITY (BEAKER) (test iprw=564) Hazy SPECIFIC GRAVITY UA (BEAKER) (test mpsm=731) 1.016 1.001-1.035 PH UA (BEAKER) (test qvjk=088) 5.0 5.0-8.0 PROTEIN UA (BEAKER) (test gofl=447) 30 mg/dL Negative GLUCOSE UA (BEAKER) (test bzrr=491) 300 mg/dL Negative KETONES UA (BEAKER) (test tyyi=285) Negative Negative BILIRUBIN UA (BEAKER) (test kfay=972) Positive Negative BLOOD UA (BEAKER) (test xqmn=224) Negative Negative NITRITE UA (BEAKER) (test dlxr=365) Positive Negative LEUKOCYTE ESTERASE UA (BEAKER) (test xmha=591) Small Negative UROBILINOGEN UA (BEAKER) (test kwwp=466) 3.0 mg/dL 0.2-1.0 RBC UA (BEAKER) (test vhtw=373) 2 /HPF WBC UA (BEAKER) (test ctbi=594) 24 /HPF BACTERIA (BEAKER) (test uxgr=210) Many MUCUS (BEAKER) (test mguy=0601) Rare SQUAMOUS EPITHELIAL (BEAKER) (test jzhj=295) 7 /HPF HYALINE CASTS (BEAKER) (test ydgr=994) 16 /LPF CASTS (BEAKER) (test ccwe=2603) 16 /LPF YEAST (BEAKER) (test xmlm=4395) Occasional SOURCE(BEAKER) (test ufrj=6449) TROPONIN [id number] 23:12:00 Test Item Value Reference Range Comments TROPONIN I (BEAKER) (test skow=835) < ng/mL 0.00-0.03 Troponin I (TnI) levels [...] acute neurological disease, and persistent tachyarrhythmia.BASIC METABOLIC [id number] 23:05:00 Test Item Value Reference Range Comments SODIUM (BEAKER) (test 128 meq/L 136-145 yomt=679) POTASSIUM (BEAKER) (test 4.9 meq/L 3.5-5.1 Specimen moderately ogvn=171) hemolyzed CHLORIDE (BEAKER) (test 100 meq/L 98-107 ivaa=016) CO2 (BEAKER) (test 13 meq/L 22-29 eqqu=953) BLOOD UREA NITROGEN 29 mg/dL 7-21 (BEAKER) (test jylm=688) CREATININE (BEAKER) (test 1.55 mg/dL 0.57-1.25 Specimen moderately wcml=550) hemolyzed GLUCOSE RANDOM (BEAKER) 326 mg/dL 70-105 (test fbvw=986) CALCIUM (BEAKER) (test 9.6 mg/dL 8.4-10.2 kxhu=030) EGFR (BEAKER) (test 36 mL/min/1.73 sq m ESTIMATED GFR IS NOT efku=0152) ACCURATE CREATININE CLEARANCE IN PREDICTING GLOMERULAR FILTRATION RATE. ESTIMATED GFR IS NOT APPLICABLE FOR DIALYSIS PATIENTS. POCT-GLUCOSE [id number] 20:49:00 Test Item Value Reference Range Comments POC-GLUCOSE METER (BEAKER) 376 mg/dL 70-110 Notified NAT SOUZA/TESTED AT [facility] (test prvj=2590) [address] [place] [address]
--- NOTE | 2019-04-24 22:34 | EDPHYS ---
Physician Documentation [facility] Name: Elly Clarke Age: 49 yrs Sex: Female : 1970 Arrival Date: 04/24/2019 Time: 20:55 Bed 14 Private MD: ED Physician Wil Patterson HPI: 04/24 22:29 This 49 yrs old Female presents to ER via Ambulatory with complaints of Fall rn Injury, tailbone pain. 22:29 Details of fall: The patient fell from an upright position. rn 22:29 Onset: The symptoms/episode began/occurred 1 week(s) ago. Associated injuries: The rn patient sustained injury to the low back. Severity of symptoms: At their worst the symptoms were mild, in the emergency department the symptoms are unchanged. The patient has not experienced similar symptoms in the past. The patient has not recently seen a physician. Tripped over toy last week, + tailbone pain, hurts to sit, no other injury. No bowel or bladder problems.. 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 N/A - Hysterectomy rv Historical: - Allergies: 21:32 Claritin (insomnia); rv 21:32 Compazine (Seizures); rv 21:32 Demerol (HEART RACING); rv 21:32 (Hives); rv 21:32 Morphine (RACING HEART); rv - Home Meds: 22:23 Lantus 100 unit/mL Sub-Q soln 60 unit twice a day [Active]; metformin 500 mg Oral tab 1 mg2 tab 2 times per day [Active]; tizanidine 2 mg Oral cap 2 caps twice a day [Active]; tramadol 50 mg Oral tab 1 tab three times a day [Active]; - PMHx: 21:32 Arthritis; Chrohns; Chronic pain; Diabetes - NIDDM; Dramatic migraine events; rv Gastroparesis; High Cholesterol; Hypertension; Migraines; Pancreatitis; spinal stenosis; - PSHx: 21:32 Hysterectomy; Knee surgery; Appendectomy; Cholecystectomy; rv - Immunization history:: Adult Immunizations up to date. - Coronavirus screen:: The patient has NOT traveled to [place], [place], or [place] in the past 14 days. Proceed with normal triage process as indicated. The patient has NOT had contact with known/suspected case of Coronavirus? Proceed with normal triage procedures. - Immunization history: Last tetanus immunization: unknown. - Social history:: Smoking status: Patient denies any tobacco usage or history of. - Family history:: not pertinent. - Ebola Screening: : No symptoms or risks identified at this time. - Hospitalizations: : No recent hospitalization is reported. ROS: 22:29 Constitutional: Negative for fever, chills, and weight loss, Back: + tailbone pain and rn injury : Negative for injury, bleeding, discharge, and swelling, MS/Extremity: Negative for injury and deformity, Neuro: Negative for headache, weakness, numbness, tingling, and seizure. Exam: 22:29 Constitutional: This is a well developed, well nourished patient who is awake, alert, rn and in no acute distress. Back: No spinal tenderness. No costovertebral tenderness. Full range of motion. + mild coccyx pain with palpation MS/ Extremity: Pulses equal, no cyanosis. Neurovascular intact. Full, normal range of motion. Equal circumference. Vital Signs: 21:30 BP 158 / 111; Pulse 98; Resp 19; Temp 97; Pulse Ox 98% ; Weight 93.44 kg; Height 5 ft. rv 7 in. (170.18 cm); Pain 7/10; 22:41 BP 145 / 70; Pulse 90; Resp 18; Temp 98; Pulse Ox 100% on R/A; mg2 21:30 Body Mass Index 32.26 (93.44 kg, 170.18 cm) rv [place] Coma Score: 22:21 Eye Response: spontaneous(4). Verbal Response: oriented(5). Motor Response: obeys mg2 commands(6). Total: 15. 22:42 Eye Response: spontaneous(4). Verbal Response: oriented(5). Motor Response: obeys mg2 commands(6). Total: 15. Trauma Score (Adult): 22:21 Eye Response: spontaneous(1); Verbal Response: oriented(1); Motor Response: obeys mg2 commands(2); Systolic BP: > 89 mm Hg(4); Respiratory Rate: 10 to 29 per min(4); [place] Score: 15; Trauma Score: 12 22:42 Eye Response: spontaneous(1); Verbal Response: oriented(1); Motor Response: obeys mg2 commands(2); Systolic BP: > 89 mm Hg(4); Respiratory Rate: 10 to 29 per min(4); Bird Score: 15; Trauma Score: 12 MDM: 22:02 Patient medically screened. rn 22:29 Differential diagnosis: contusion, fracture, sprain. Data reviewed: vital signs, nurses rn notes, radiologic studies, plain films. Test interpretation: by ED physician or midlevel provider: plain radiologic studies, Xray lumbar and coccyx neg for acute fracture. Counseling: I had a detailed discussion with the patient and/or guardian regarding: the historical points, exam findings, and any diagnostic results supporting the discharge/admit diagnosis, radiology results, the need for outpatient follow up, to return to the emergency department if symptoms worsen or persist or if there are any questions or concerns that arise at home. Special discussion: I discussed with the patient/guardian in detail that at this point there is no indication for admission to the hospital. It is understood, however, that if the symptoms persist or worsen the patient needs to return immediately for re-evaluation. 04/24 21:44 Order name: XRAY Lumbar Spine (3 Views) rn 04/24 21:44 Order name: XRAY Sacrum And Coccyx rn Administered Medications: No medications were administered Disposition: 04/24/19 22:32 Discharged to Home. Impression: Contusion of Coccyx. - Condition is Stable. - Discharge Instructions: Tailbone Injury. - Medication Reconciliation Form, Thank You Letter, Antibiotic Education, Prescription Opioid Use form. - Follow up: Private Physician; When: As needed; Reason: Recheck today's complaints, Re-evaluation by your physician. - Problem is new. - Symptoms have improved. Signatures: Dispatcher [employer] EDMS Wil Patterson MD MD rn Gardose, Michele, RN RN mg2 Karan Christian RN RN rv Corrections: (The following items were deleted from the chart) 22:43 22:32 04/24/2019 22:32 Discharged to Home. Impression: Contusion of Coccyx. Condition mg2 is Stable. Forms are Medication Reconciliation Form, Thank You Letter, Antibiotic Education, Prescription Opioid Use. Follow up: Private Physician; When: As needed; Reason: Recheck today's complaints, Re-evaluation by your physician. Problem is new. Symptoms have improved. rn
--- NOTE | 2019-04-24 22:34 | ER ---
Nurse's Notes [facility] Name: Elly Clarke Age: 49 yrs Sex: Female : 1970 Arrival Date: 04/24/2019 Time: 20:55 Bed 14 Private MD: Diagnosis: Contusion of Coccyx Presentation: 04/24 21:27 Presenting complaint: Patient states: last Thursday, fell backwards hitting on my rv bottom and head on carpeted floor. denies LOC and headache after the fall. pain on the tailbone is not going away even doses of tramadol. Transition of care: patient was not received from another setting of care. Onset of symptoms was April 20, 2019 at 08:00. Risk Assessment: Do you want to hurt yourself or someone else? Patient reports no desire to harm self or others. Initial Sepsis Screen: Does the patient meet any 2 criteria? No. Patient's initial sepsis screen is negative. Does the patient have a suspected source of infection? No. Patient's initial sepsis screen is negative. Care prior to arrival: None. 21:27 Method Of Arrival: Ambulatory rv : Acuity: HANNAH 4 rv 22:23 Mechanism of Injury: Fall. mg2 22:24 Trauma event details: Injury occurred in the [facility]. 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 N/A - Hysterectomy rv Trauma Activation: Not Applicable Physician: ED Physician; Name: ; Notified At: ; Arrived At: Physician: General Surgeon; Name: ; Notified At: ; Arrived At: Physician: Radiology; Name: ; Notified At: ; Arrived At: Physician: Respiratory; Name: ; Notified At: ; Arrived At: Physician: Lab; Name: ; Notified At: ; Arrived At: Historical: - Allergies: 21:32 Claritin (insomnia); rv 21:32 Compazine (Seizures); rv 21:32 Demerol (HEART RACING); rv 21:32 (Hives); rv 21:32 Morphine (RACING HEART); rv - Home Meds: 22:23 Lantus 100 unit/mL Sub-Q soln 60 unit twice a day [Active]; metformin 500 mg Oral tab 1 mg2 tab 2 times per day [Active]; tizanidine 2 mg Oral cap 2 caps twice a day [Active]; tramadol 50 mg Oral tab 1 tab three times a day [Active]; - PMHx: 21:32 Arthritis; Chrohns; Chronic pain; Diabetes - NIDDM; Dramatic migraine events; rv Gastroparesis; High Cholesterol; Hypertension; Migraines; Pancreatitis; spinal stenosis; - PSHx: 21:32 Hysterectomy; Knee surgery; Appendectomy; Cholecystectomy; rv - Immunization history:: Adult Immunizations up to date. - Coronavirus screen:: The patient has NOT traveled to [place], [place], or [place] in the past 14 days. Proceed with normal triage process as indicated. The patient has NOT had contact with known/suspected case of Coronavirus? Proceed with normal triage procedures. - Immunization history: Last tetanus immunization: unknown. - Social history:: Smoking status: Patient denies any tobacco usage or history of. - Family history:: not pertinent. - Ebola Screening: : No symptoms or risks identified at this time. - Hospitalizations: : No recent hospitalization is reported. Screenin:20 Abuse screen: Denies threats or abuse. Denies injuries from another. Nutritional mg2 screening: No deficits noted. Tuberculosis screening: No symptoms or risk factors identified. 22:40 Fall Risk Fall in past 12 months (25 points). mg2 Primary Survey: 22:19 NO uncontrolled hemorrhage observed. A: The patient is alert. Airway: patent, No mg2 supplemental oxygen in use on arrival. Breathing/Chest: Respiratory pattern: regular, Respiratory effort: spontaneous, unlabored, Breath sounds: clear. Circulation: Skin color: pink. Disability Alert. Exposure/Environment: All clothing and personal items were removed. Forensic evidence collection is not deemed to be indicated at this time. Items placed in patient belonging bag. There is no evidence of uncontrolled external bleeding. No obvious injuries are noted at this time. A warming method has been applied: A warm blanket has been provided to the patient. 22:40 Reassessment Airway Airway Patent Breathing/Chest Respiratory pattern Circulation Color mg2 [address] Disability Alert. Secondary Survey: 22:19 HEENT: No deficits noted. Gastrointestinal: No deficits noted. : No signs and/or mg2 symptoms were reported regarding the genitourinary system. Musculoskeletal: Reports pain in back. Assessment: 22:17 General: Appears in no apparent distress. comfortable, Behavior is calm, cooperative. mg2 Pain: Complains of pain in back. Neuro: Level of Consciousness is awake, alert, obeys commands, Oriented to person, place, time, situation. EENT: No signs and/or symptoms were reported regarding the EENT system. Cardiovascular: Capillary refill < 3 seconds Patient's skin is warm and dry. Respiratory: Airway is patent Respiratory effort is even, unlabored, Respiratory pattern is regular, symmetrical. GI: No signs and/or symptoms were reported involving the gastrointestinal system. : No signs and/or symptoms were reported regarding the genitourinary system. Derm: Skin is intact, is healthy with good turgor, Skin is pink, warm \T\ dry. normal. Musculoskeletal: Circulation, motion, and sensation intact. Capillary refill < 3 seconds, Reports pain in back. Vital Signs: 21:30 BP 158 / 111; Pulse 98; Resp 19; Temp 97; Pulse Ox 98% ; Weight 93.44 kg; Height 5 ft. rv 7 in. (170.18 cm); Pain 7/10; 22:41 BP 145 / 70; Pulse 90; Resp 18; Temp 98; Pulse Ox 100% on R/A; mg2 21:30 Body Mass Index 32.26 (93.44 kg, 170.18 cm) rv [place] Coma Score: 22:21 Eye Response: spontaneous(4). Verbal Response: oriented(5). Motor Response: obeys mg2 commands(6). Total: 15. 22:42 Eye Response: spontaneous(4). Verbal Response: oriented(5). Motor Response: obeys mg2 commands(6). Total: 15. Trauma Score (Adult): 22:21 Eye Response: spontaneous(1); Verbal Response: oriented(1); Motor Response: obeys mg2 commands(2); Systolic BP: > 89 mm Hg(4); Respiratory Rate: 10 to 29 per min(4); [place] Score: 15; Trauma Score: 12 22:42 Eye Response: spontaneous(1); Verbal Response: oriented(1); Motor Response: obeys mg2 commands(2); Systolic BP: > 89 mm Hg(4); Respiratory Rate: 10 to 29 per min(4); [place] Score: 15; Trauma Score: 12 ED Course: 20:55 Patient arrived in ED. ds1 21:30 Triage completed. rv 21:33 Arm band placed on. rv 21:52 Kong Brock, NAT is Primary Nurse. mg2 22:02 Wil Patterson MD is Attending Physician. rn 22:19 XRAY Lumbar Spine (3 Views) In Process Unspecified. EDMS 22:19 XRAY Sacrum And Coccyx In Process Unspecified. EDMS 22:20 Patient has correct armband on for positive identification. mg2 22:20 Patient maintains SpO2 saturation greater than 95% on room air. mg2 22:23 Thermoregulation: warm blanket given to patient. mg2 22:42 No provider procedures requiring assistance completed. Patient did not have IV access mg2 during this emergency room visit. Administered Medications: No medications were administered Intake: 22:21 PO: 0ml; Total: 0ml. mg2 Outcome: 22:32 Discharge ordered by MD. rn 22:42 Discharged to home ambulatory. mg2 22:42 Condition: stable 22:42 Discharge instructions given to patient, Instructed on discharge instructions, follow up and referral plans. Demonstrated understanding of instructions, follow-up care. 22:43 Patient's length of stay was not longer than 2 hours. mg2 22:43 Patient left the ED. mg2 Signatures: Dispatcher [employer] EDID Consuelo Varela ds1 Wil Patterson MD MD rn Gardose, Michele, RN RN mg2 Karan Christian RN RN rv
[2019-04-24 22:50] VITALS: BP 145/70; TEMP 98; O2SAT 100
--- NOTE | 2019-04-25 07:51 | RAD REPORT ---
EXAM DESCRIPTION: RAD - Lumbar Spine 3 Views - 04/24/2019 10:18 pm CLINICAL HISTORY: Back pain FINDINGS: The alignment of the lumbar spine is satisfactory. No fracture or dislocation is seen. The bones appear osteoporotic Mild spondylosis involves the lumbar spine
--- NOTE | 2019-04-25 07:52 | RAD REPORT ---
EXAM DESCRIPTION: RADSacrum And Coccyx04/24/2019 10:19 pm CLINICAL HISTORY: Back pain status post fall FINDINGS: No fracture is seen. Bones appear osteoporotic
== END 2019-04-24 22:43 | disposition home or self-care (01) ==
LOC: ER 20:53
DX: S30.0XXA Contusion of lower back and pelvis, initial encounter (principal); W18.30XA Fall on same level, unspecified, initial encounter; Y93.9 Activity, unspecified; Y92.9 Unspecified place or not applicable; Z88.6 Allergy status to analgesic agent; E11.9 Type 2 diabetes mellitus without complications; I10 Essential (primary) hypertension
CPT/HCPCS: 72100; 72220; 99284

== ENCOUNTER 2019-07-29 18:04 | Emergency (ER) | payer OTHER ==
--- OUTSIDE RECORDS SUMMARY | 2019-07-29 18:08 | XMS REPORT ---
:1970 Author Organization [facility] t Address [address] [place] [address] Dr. Kumar [address] [place] [id number] Care Team Providers Name Role Phone BRENNEN Unavailable Unavailable Problems This patient has no known problems. Allergies, Adverse Reactions, Alerts This patient has no known allergies or adverse reactions. Medications This patient has no known medications. Results Test Description Test Time Test Comments Text Results Atomic Results Result Comments POCT-GLUCOSE METER 2017-09-01 17:07:00 Test Item Value Reference Range Comments POC-GLUCOSE METER (BEAKER) (test 298 mg/dL 70-110 TESTED AT [address] code = 1538) [facility] [address] POCT-GLUCOSE [id number] 12:11:00 Test Item Value Reference Range Comments POC-GLUCOSE METER (BEAKER) 331 mg/dL 70-110 Notif iefer JOHNS MD/TESTED AT [facility] (test code = 1538) [address] [place] [address] POCT-GLUCOSE [id number] 10:55:00 Test Item Value Reference Range Comments POC-GLUCOSE METER (BEAKER) 365 mg/dL 70-110 TESTE D AT [address] (test code = 1538) [place] [address]30 POCT-GLUCOSE [id number] 08:44:00 Test Item Value Reference Range Comments POC-GLUCOSE METER (BEAKER) 291 mg/dL 70-110 TESTE D AT [address] (test code = 1538) [place] [address]30 LIPID [id number] 05:56:00 Test Item Value Reference Range Comments TRIGLYCERIDES (BEAKER) (test code = 540) 279 mg/dL CHOLESTEROL (BEAKER) (test code = 631) 119 mg/dL HDL CHOLESTEROL (BEAKER) (test code = 976) 22 mg/dL LDL CHOLESTEROL CALCULATED (BEAKER) (test code = 41 mg/dL 633) Triglyceride Reference Range: Low Risk <150 Borderline 150-199 High Risk 200-499 Very High Risk >=500Cholesterol Reference Range: Low Risk <200 Borderline 200-239 High Risk >240HDL Cholesterol Reference Range: Low Risk >=60 High Risk <40LDL Cholesterol Reference Range: Optimal <100 Near Optimal 100-129 Borderline 130-159 High 160-189 Very High >=190POCT-GLUCOSE [id number] 21:50:00 Test Item Value Reference Range Comments POC-GLUCOSE METER (BEAKER) 318 mg/dL 70-110 TESTE D AT [address] (test code = 1538) [place] [address]30 POCT-GLUCOSE [id number] 18:04:00 Test Item Value Reference Range Comments POC-GLUCOSE METER (BEAKER) 238 mg/dL 70-110 TESTE D AT [address] (test code = 1538) [place] [address]30 POCT-GLUCOSE [id number] 12:22:00 Test Item Value Reference Range Comments POC-GLUCOSE METER (BEAKER) 290 mg/dL 70-110 TESTE D AT [address] (test code = 1538) [place] [address]30 POCT-GLUCOSE [id number] 09:20:00 Test Item Value Reference Range Comments POC-GLUCOSE METER (BEAKER) 293 mg/dL 70-110 TESTE D AT [address] (test code = 1538) [place] [address]30 POCT-GLUCOSE [id number] 21:00:00 Test Item Value Reference Range Comments POC-GLUCOSE METER (BEAKER) 225 mg/dL 70-110 TESTE D AT [address] (test code = 1538) [place] [address], CAROTID, [id number] 18:01:00FINAL REPORT CT angiogram of the upper [...] upper chest, neck, head. Signed: Iqra Hall Verified Date/Time: 08/30/2017 18:01:31 Reading Location: [address] Neuro Reading Room , CTANGIO [id number] 18:01:00FINAL REPORT CT angiogram of the upper [...] CTA upper chest, neck, head. Signed: Iqra [place] Verified Date/Time: 08/30/2017 18:01:31 Reading Location: [facility] B1 C013V Neuro Reading Room -GLUCOSE [id number] 17:21:00 Test Item Value Reference Range Comments POC-GLUCOSE METER (BEAKER) 256 mg/dL 70-110 TESTE D AT [address] (test code = 1538) [place] [address]30 POCT-GLUCOSE [id number] 12:00:00 Test Item Value Reference Range Comments POC-GLUCOSE METER (BEAKER) 289 mg/dL 70-110 TESTE D AT [address] (test code = 1538) [place] [address]30 BASIC METABOLIC [id number] 10:12:00 Test Item Value Reference Range Comments SODIUM (BEAKER) (test 137 meq/L 136-145 code = 381) POTASSIUM (BEAKER) (test 4.1 meq/L 3.5-5.1 code = 379) CHLORIDE (BEAKER) (test 106 meq/L 98-107 code = 382) CO2 (BEAKER) (test code = 24 meq/L 22-29 355) BLOOD UREA NITROGEN 11 mg/dL 7-21 (BEAKER) (test code = 354) CREATININE (BEAKER) (test 0.81 mg/dL 0.57-1.25 code = 358) GLUCOSE RANDOM (BEAKER) 264 mg/dL 70-105 (test code = 652) CALCIUM (BEAKER) (test 9.1 mg/dL 8.4-10.2 code = 697) EGFR (BEAKER) (test code 75 mL/min/1.73 sq m EST IMATED GFR IS NOT = 1092) ACCURATE CREA TININE CLEARANCE IN PRE DICTING GLOMERULAR FILTR ATION RATE. ESTIMATED GFR IS NOT APPLICABLE F OR DIALYSIS PATIENT S. POCT-GLUCOSE [id number] 08:42:00 Test Item Value Reference Range Comments POC-GLUCOSE METER (BEAKER) 259 mg/dL 70-110 TESTE D AT [place] [address] [address] (test code = 1538) [facility] [address] TROPONIN [id number] 06:14:00 Test Item Value Reference Range Comments TROPONIN I (BEAKER) (test code = 397) < ng/mL 0.00-0.03 Troponin I (TnI) levels [...] and persistent tachyarrhythmia.CBC W/PLT COUNT & AUTO DIFFERENTIAL 2017-08-30 06:09:00 Test Item Value Reference Range Comments WHITE BLOOD CELL COUNT (BEAKER) (test code = 6.6 K/ L 3.5 -10.5 775) RED BLOOD CELL COUNT (BEAKER) (test code = 761) 4.40 M/ L 3.93-5.22 HEMOGLOBIN (BEAKER) (test code = 410) 11.8 GM/DL 11.2-15.7 HEMATOCRIT (BEAKER) (test code = 411) 36.1 % 34.1-44.9 MEAN CORPUSCULAR VOLUME (BEAKER) (test code = 82.0 fL 79 .4-94.8 753) MEAN CORPUSCULAR HEMOGLOBIN (BEAKER) (test code 26.8 pg 25.6-32.2 = 751) MEAN CORPUSCULAR HEMOGLOBIN CONC (BEAKER) (test 32.7 GM/DL 32.2-35.5 code = 752) RED CELL DISTRIBUTION WIDTH (BEAKER) (test code 13.2 % 11.7-14.4 = 412) PLATELET COUNT (BEAKER) (test code = 756) 231 K/CU MM 150-45 0 MEAN PLATELET VOLUME (BEAKER) (test code = 754) 10.9 fL 9.4-12.3 NUCLEATED RED BLOOD CELLS (BEAKER) (test code = 0 /100 WBC 0-0 413) NEUTROPHILS RELATIVE PERCENT (BEAKER) (test code 50 % = 429) LYMPHOCYTES RELATIVE PERCENT (BEAKER) (test code 41 % = 430) MONOCYTES RELATIVE PERCENT (BEAKER) (test code = 6 % 431) EOSINOPHILS RELATIVE PERCENT (BEAKER) (test code 2 % = 432) BASOPHILS RELATIVE PERCENT (BEAKER) (test code = 1 % 437) NEUTROPHILS ABSOLUTE COUNT (BEAKER) (test code = 3.34 K/ L 1.56-6.13 670) LYMPHOCYTES ABSOLUTE COUNT (BEAKER) (test code = 2.67 K/ L 1.18-3.74 414) MONOCYTES ABSOLUTE COUNT (BEAKER) (test code = 0.40 K/ L 0 .24-0.36 415) EOSINOPHILS ABSOLUTE COUNT (BEAKER) (test code = 0.15 K/ L 0.04-0.36 416) BASOPHILS ABSOLUTE COUNT (BEAKER) (test code = 0.03 K/ L 0 .01-0.08 417) IMMATURE GRANULOCYTES-RELATIVE PERCENT (BEAKER) 0 % 0-1 (test code = 2801) RAD, CHEST, 1 VIEW, NON [id number] 04:23:00Reason for exam:->chest painShould this be performed at the bedside?->YesFINAL REPORT Comparison examination: None No pneumothorax, focal pulmonary co nsolidation, or significant pleural effusion. Normal cardiomediastinal contours. Normal skeleton and soft tissues. Impression: No acute abnormality. Signed: Ervin Jenkins Verified Date/Time: 08/30/2017 04:23:04 Reading Location: [address] Reading Room POCT-GLUCOSE [id number] 21:18:00 Test Item Value Reference Range Comments POC-GLUCOSE METER (BEAKER) 151 mg/dL 70-[address] [facility] [address] [facility] (test code = 1538) [place] [address] POCT-GLUCOSE [id number] 17:59:00 Test Item Value Reference Range Comments POC-GLUCOSE METER (BEAKER) 146 mg/dL 70-110 TESTE D AT [place] [id number] (test code = 1538) [place] [address] HEMOGLOBIN [id number] 15:56:00 Test Item Value Reference Range Comments HEMOGLOBIN A1C (BEAKER) (test code = 368) 13.7 % 4.3-6. 1 CT, BRAIN, WITHOUT [id number] 14:52:00FINAL REPORT CT head without contrast. Comparisons: [...] bones and surrounding soft tissues are unremarkable. Imp ressions: 1. No specific evidence of acute intracranial abnormality. Consider follow-up MRI if appropriate. Signed: Iqra Hall Verified Date/Time: 08/29/2017 14:52:09 Reading Location: [address] Neuro Reading Room POCT-GLUCOSE [id number] 14:17:00 Test Item Value Reference Range Comments POC-GLUCOSE METER ([employer]) 423 mg/dL 70-110 Notif dayday JOHNS MD/TESTED AT [facility] (test code = 1538) [address] [facility] [address] VITAMIN [id number] 06:48:00 Test Item Value Reference Range Comments VITAMIN B12 (BEAKER) (test code = 774) 300 pg/mL 213-816 TSH/FREE T4 IF [id number] 06:48:00 Test Item Value Reference Range Comments THYROID STIMULATING HORMONE (BEAKER) (test code 1.55 uIU/mL 0.35-4.94 = 772) CBC W/PLT COUNT & AUTO [id number] 05:10:00 Test Item Value Reference Range Comments WHITE BLOOD CELL COUNT (BEAKER) (test code = 775) 8.6 K/ L 3.5-10.5 RED BLOOD CELL COUNT (BEAKER) (test code = 761) 4.62 M/ L 3.93-5.22 HEMOGLOBIN (BEAKER) (test code = 410) 12.2 GM/DL 11.2-15.7 HEMATOCRIT (BEAKER) (test code = 411) 42.2 % 34.1-44.9 MEAN CORPUSCULAR VOLUME (BEAKER) (test code = 91.3 fL 79 .4-94.8 753) MEAN CORPUSCULAR HEMOGLOBIN (BEAKER) (test code = 26.4 pg 25.6-32.2 751) MEAN CORPUSCULAR HEMOGLOBIN CONC (BEAKER) (test 28.9 GM/DL 32.2-35.5 code = 752) RED CELL DISTRIBUTION WIDTH (BEAKER) (test code = 13.2 % 11.7-14.4 412) PLATELET COUNT (BEAKER) (test code = 756) 80 K/CU MM 150-45 0 MEAN PLATELET VOLUME (BEAKER) (test code = 754) 10.9 fL 9.4-12.3 NUCLEATED RED BLOOD CELLS (BEAKER) (test code = 0 /100 WBC 0-0 413) NEUTROPHILS RELATIVE PERCENT (BEAKER) (test code 45 % = 429) LYMPHOCYTES RELATIVE PERCENT (BEAKER) (test code 46 % = 430) MONOCYTES RELATIVE PERCENT (BEAKER) (test code = 6 % 431) EOSINOPHILS RELATIVE PERCENT (BEAKER) (test code 2 % = 432) BASOPHILS RELATIVE PERCENT (BEAKER) (test code = 1 % 437) NEUTROPHILS ABSOLUTE COUNT (BEAKER) (test code = 3.91 K/ L 1.56-6.13 670) LYMPHOCYTES ABSOLUTE COUNT (BEAKER) (test code = 3.95 K/ L 1.18-3.74 414) MONOCYTES ABSOLUTE COUNT (BEAKER) (test code = 0.54 K/ L 0 .24-0.36 415) EOSINOPHILS ABSOLUTE COUNT (BEAKER) (test code = 0.13 K/ L 0.04-0.36 416) BASOPHILS ABSOLUTE COUNT (BEAKER) (test code = 0.07 K/ L 0 .01-0.08 417) IMMATURE GRANULOCYTES-RELATIVE PERCENT (BEAKER) 0 % 0-1 (test code = 2801) URINALYSIS W/ [id number] 23:32:00 Test Item Value Reference Range Comments COLOR (BEAKER) (test code = 470) Brown CLARITY (BEAKER) (test code = 469) Hazy SPECIFIC GRAVITY UA (BEAKER) (test code = 468) 1.016 1 .001-1.035 PH UA (BEAKER) (test code = 467) 5.0 5.0-8.0 PROTEIN UA (BEAKER) (test code = 464) 30 mg/dL Negative GLUCOSE UA (BEAKER) (test code = 365) 300 mg/dL Negative KETONES UA (BEAKER) (test code = 371) Negative Negative BILIRUBIN UA (BEAKER) (test code = 462) Positive Negative BLOOD UA (BEAKER) (test code = 461) Negative Negative NITRITE UA (BEAKER) (test code = 465) Positive Negative LEUKOCYTE ESTERASE UA (BEAKER) (test code = 466) Small Negative UROBILINOGEN UA (BEAKER) (test code = 463) 3.0 mg/dL 0.2-1 .0 RBC UA (BEAKER) (test code = 519) 2 /HPF WBC UA (BEAKER) (test code = 520) 24 /HPF BACTERIA (BEAKER) (test code = 517) Many MUCUS (BEAKER) (test code = 1574) Rare SQUAMOUS EPITHELIAL (BEAKER) (test code = 516) 7 /HPF HYALINE CASTS (BEAKER) (test code = 514) 16 /LPF CASTS (BEAKER) (test code = 1579) 16 /LPF YEAST (BEAKER) (test code = 1585) Occasional SOURCE(BEAKER) (test code = 2795) TROPONIN [id number] 23:12:00 Test Item Value Reference Range Comments TROPONIN I (BEAKER) (test code = 397) < ng/mL 0.00-0.03 Troponin I (TnI) levels [...] acute neurological disease, and persistent tachyarrhythmia.BASIC METABOLIC [id number] 23:05:00 Test Item Value Reference Range Comments SODIUM (BEAKER) (test 128 meq/L 136-145 code = 381) POTASSIUM (BEAKER) (test 4.9 meq/L 3.5-5.1 Specime n moderately code = 379) hemolyzed CHLORIDE (BEAKER) (test 100 meq/L 98-107 code = 382) CO2 (BEAKER) (test code = 13 meq/L 22-29 355) BLOOD UREA NITROGEN 29 mg/dL 7-21 (BEAKER) (test code = 354) CREATININE (BEAKER) (test 1.55 mg/dL 0.57-1.25 Specim en moderately code = 358) hemolyzed GLUCOSE RANDOM (BEAKER) 326 mg/dL 70-105 (test code = 652) CALCIUM (BEAKER) (test 9.6 mg/dL 8.4-10.2 code = 697) EGFR (BEAKER) (test code 36 mL/min/1.73 sq m EST IMATED GFR IS NOT = 1092) ACCURATE CREA TININE CLEARANCE IN PRE DICTING GLOMERULAR FILTR ATION RATE. ESTIMATED GFR IS NOT APPLICABLE F OR DIALYSIS PATIENT S. POCT-GLUCOSE [id number] 20:49:00 Test Item Value Reference Range Comments POC-GLUCOSE METER (BEAKER) 376 mg/dL 70-110 Notif dayday JOHNS MD/TESTED AT [facility] (test code = 1538) [address] [place] [address]
[2019-07-29] MEDS ORDERED: PROMETHAZINE INJ 25 MG/ML AMP ONE ×2 (18:47→20:27)
[2019-07-29] MEDS ORDERED: NA CHLORIDE 0.9% 1,000 ML ONE ×2 (18:47→20:27)
[2019-07-29] MEDS ORDERED: FENTANYL CITR 100 MCG/2 ML ONE (19:19)
[2019-07-29 19:21] LABS: ALT/SGPT 27 U/L (12-78); AST/SGOT 15 U/L (15-37); Alkaline Phosphatase 108 U/L (45-117); BUN Blood Urea Nitrogen 10 mg/dL (7-18); Bicarbonate 26 mmol/L (21-32); Bilirubin Direct < 0.1 mg/dL (0-0.2); Bilirubin Total 0.4 mg/dL (0.2-1.0); Glucose Level 341 mg/dL (74-106); Lipase 115 U/L (73-393); Potassium 3.4 mmol/L (3.5-5.1); Sodium Level 134 mmol/L (136-145)
[2019-07-29 19:45] LABS: Absolute Lymphocytes (CBC) 3.4 K/uL (0.7-4.9); Basophils % 0.5 % (0-1.3); Hematocrit 48.1 % (36.0-45.0); Lymphocytes % 32.8 % (15.3-44.8); MPV 9.8 fL (7.6-11.3); RBC Red Blood Cell Count 6.03 M/uL (3.86-4.86)
--- NOTE | 2019-07-29 20:41 | RAD REPORT ---
EXAM DESCRIPTION: CTAbdomen Pelvis W Contrast - 07/29/2019 8:30 pm CLINICAL HISTORY: Abdominal pain. ABD PAIN COMPARISON: Abdomen Pelvis W Contrast dated 12/04/2017; Abdomen Pelvis W Contrast dated 11/23/2016; Abdomen Pelvis W Contrast dated 08/08/2016; Abdomen Pelvis W Contrast dated 04/13/2016 TECHNIQUE: Biphasic CT imaging of the abdomen and pelvis was performed with 100 ml non-ionic IV cont rast. All CT scans are performed using dose optimization technique as appropriate and may include automated exposure control or mA/KV adjustment according to patient size. FINDINGS: The lung bases are clear.Cholecystectomy clips. The liver, spleen, pancreas, adrenal glands and kidneys are within normal limits. No bowel obstruction, free air, free fluid or abscess. Mild sigmoid diverticulosis without diverticul itis. The appendix is normal. No evidence of significant lymphadenopathy. No suspicious bony findings. Urinary bladder wall appears thickened. IMPRESSION: Urinary bladder wall thickening is seen which could indicate cystitis. Sigmoid diverticulosis without diverticulitis.
[2019-07-29 21:12] LABS: Urine Bacteria 20-50 /HPF (<20); Urine Culture Reflex Order REFLEXED; Urine RBC 20-50 /HPF (NONE SEEN)
[2019-07-29] MEDS ORDERED: CEFTRIAXONE/SWI 1gm 1 GM/10 ML SYR ONE (21:25)
[2019-07-29 21:36] LABS: Urine Blood 2+ (NEG); Urine Glucose 2+ (NEG); Urine Protein 2+ (NEG); Urine Specific Gravity 1.015 (1.005-1.030)
--- NOTE | 2019-07-29 21:53 | ER ---
Nurse's Notes [facility] Name: Elly Clarke Age: 49 yrs Sex: Female : 1970 Arrival Date: 07/29/2019 Time: 18:07 Bed 6 Private MD: Pavel Curran T Diagnosis: Dehydration;Cystitis Presentation: 07/28 18:10 Chief complaint: Patient states: abd cramping, n/v since Thu. Coronavirus screen: sv Proceed with normal triage. Patient denies a cough. Patient denies shortness of breath or difficulty breathing. Patient denies measured and/or subjective temperature greater than 100.4F prior to today's visit. Patient denies travel on a cruise ship or to a country the [facility] currently lists as an affected area. Patient denies contact with known and/or suspected case of COVID-19. Ebola Screen: No symptoms or risks identified at this time. Risk Assessment: Do you want to hurt yourself or someone else? Patient reports no desire to harm self or others. Onset of symptoms was July 27, 2019. 18:10 Method Of Arrival: Wheelchair sv 18:10 Acuity: HANNAH 2 sv 18:10 Initial Sepsis Screen: Does the patient meet any 2 criteria? RR > 20 per min. HR > 90 sv bpm. Yes Does the patient have a suspected source of infection? Yes: Acute abdominal pain. Triage Assessment: 18:14 General: Appears distressed, uncomfortable, Behavior is cooperative, appropriate for sv age, anxious. Pain: Complains of pain in abdomen. Neuro: Level of Consciousness is awake, alert, obeys commands. GI: Reports lower abdominal pain, upper abdominal pain, nausea, vomiting. 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 - Social history:: Smoking status: unknown. Screenin:50 Abuse screen: Denies threats or abuse. Nutritional screening: No deficits noted. em Tuberculosis screening: No symptoms or risk factors identified. Fall Risk None identified. Assessment: 18:50 General: Appears in no apparent distress. uncomfortable, ill, Behavior is anxious, em crying. Pain: Complains of pain in abdomen Pain currently is 10 out of 10 on a pain scale. Neuro: Level of Consciousness is awake, alert, obeys commands, Oriented to person, place, time, situation, Appropriate for age. Cardiovascular: Capillary refill < 3 seconds Rhythm is sinus tachycardia. Respiratory: Airway is patent Respiratory effort is even, unlabored, Respiratory pattern is regular, symmetrical, Ventilator assessment:. GI: Abdomen is round non-distended, Bowel sounds Abd is soft X 4 quads Abdomen is tender to palpation X 4 quads. Derm: Skin is intact, is fragile, Skin is clammy, Skin is pink, Skin temperature is cool. Musculoskeletal: Capillary refill < 3 seconds, Range of motion: intact in all extremities. 20:30 Reassessment: Patient appears in no apparent distress at this time. complaints of rr5 nausea and vomiting. ED provider aware with order made and carried out. 21:00 Reassessment: Patient appears in no apparent distress at this time. Patient is alert, rr5 oriented x 3, equal unlabored respirations, skin warm/dry/pink. nausea and vomiting resolved Patient states symptoms have improved. 21:10 Reassessment: Patient appears in no apparent distress at this time. complaints of the rr5 abdominal pain came back. ED provider aware with order and and carried out. 22:00 Reassessment: Patient appears in no apparent distress at this time. Patient is alert, rr5 oriented x 3, equal unlabored respirations, skin warm/dry/pink. for discharge after IV fluid infusion. 22:40 Reassessment: Patient appears in no apparent distress at this time. Patient is alert, rr5 oriented x 3, equal unlabored respirations, skin warm/dry/pink. discharge instruction given and explained without complaints made. Vital Signs: 18:10 BP 154 / 92; Pulse 119; Resp 30; Pulse Ox 100% ; Weight 96.62 kg; Height 5 ft. 7 in. sv (170.18 cm); 19:10 BP 135 / 109; Pulse 122; Resp 31; Temp 98.3; Pulse Ox 99% on R/A; Pain 10/10; bp 20:00 BP 141 / 90; Pulse 95; Resp 17; Pulse Ox 99% on R/A; rr5 21:00 BP 133 / 77; Pulse 85; Resp 19; Pulse Ox 99% ; rr5 22:00 BP 171 / 95; Pulse 89; Resp 16; Temp 98; Pulse Ox 99% ; Pain 5/10; rr5 22:40 BP 161 / 85; Pulse 80; Resp 17; Pulse Ox 100% ; Pain 5/10; rr5 18:10 Body Mass Index 33.36 (96.62 kg, 170.18 cm) sv ED Course: 18:07 Patient arrived in ED. ag5 18:07 Pavel Curran MD is Private Physician. ag5 18:11 Triage completed. sv 18:11 Arm band placed on. sv 18:21 Cookie Walker [facility]C [facility]. kb 18:21 Kam Parker MD is Attending Physician. kb 18:41 Storm Chaparro RN is Primary Nurse. em 18:50 Patient has correct armband on for positive identification. Bed in low position. Call em light in reach. Pulse ox on. NIBP on. 18:50 Initial lab(s) drawn, by me, sent to lab. Inserted saline lock: 20 gauge in left em antecubital area, using aseptic technique. Blood collected. 20:30 CT Abd/Pelvis - IV Contrast Only In Process Unspecified. EDMS 22:40 No provider procedures requiring assistance completed. IV discontinued, intact, rr5 bleeding controlled, No redness/swelling at site. Pressure dressing applied. Administered Medications: 18:50 Drug: NS 0.9% 1000 ml Route: IV; Rate: 1000 ml; Site: left antecubital; em 21:25 Follow up: Response: No adverse reaction; IV Status: Completed infusion; IV Intake: rr5 1000ml 18:50 Drug: Phenergan 12.5 mg Route: IVP; Site: left antecubital; em 19:30 Follow up: Response: No adverse reaction; Marked relief of symptoms rr5 19:12 Drug: fentaNYL (PF) 50 mcg {Note: RASS 0.} Route: IVP; Site: left antecubital; bp 20:10 Follow up: Response: No adverse reaction; RASS: Alert and Calm (0) rr5 20:30 Drug: Phenergan 12.5 mg Route: IVP; Site: left antecubital; rr5 21:30 Follow up: Response: No adverse reaction; Marked relief of symptoms rr5 21:23 Drug: NS 0.9% 1000 ml Route: IV; Rate: 1000 ml; Site: left antecubital; rr5 22:34 Follow up: Response: No adverse reaction; IV Status: Completed infusion; IV Intake: rr5 1000ml 21:23 Drug: fentaNYL (PF) 50 mcg {Note: rass 0.} Route: IVP; Site: left antecubital; rr5 22:20 Follow up: Response: No adverse reaction; Pain is decreased; RASS: Alert and Calm (0) rr5 21:25 Drug: Rocephin 1 grams Route: IV; Rate: bolus; Site: left antecubital; rr5 22:00 Follow up: Response: No adverse reaction; IV Status: Completed infusion; IV Intake: [id number] 21:25 CANCELLED (Duplicate Order): Rocephin 1 grams IV at calculated rate once; Given slow IV rr5 push per pharmacy instructions Intake: 21:25 IV: 1000ml; Total: 1000ml. rr5 22:00 IV: 10ml; Total: 1010ml. rr5 22:34 IV: 1000ml; Total: 2010ml. rr5 Outcome: 21:53 Discharge ordered by . kb 22:40 Discharged to home via wheelchair, with family. rr5 22:40 Condition: stable 22:40 Discharge instructions given to patient, Instructed on discharge instructions, follow up and referral plans. medication usage, Demonstrated understanding of instructions, follow-up care, medications, Prescriptions given X 2. 22:44 Patient left the ED. rr5 Signatures: Dispatcher [employer] EDCookie Savage, BOOKER PARTIDA-Julianne Yusuf RN RN sv Munoz, Edgar, RN RN em Peltier, Brian, RN RN bp Roque, Raymond, RN RN rr5 Dar Minaya ag5 Corrections: (The following items were deleted from the chart) 18:13 18:10 Acuity: HANNAH 3 sv sv 18:14 18:10 Pulse 119bpm; Resp 30bpm; Pulse Ox 100%; 96.62 kg; Height 5 ft. 7 in.; BMI: 33.3; sv sv
--- NOTE | 2019-07-29 21:54 | EDPHYS ---
Physician Documentation [facility] Name: Elly Clarke Age: 49 yrs Sex: Female : 1970 Arrival Date: 07/29/2019 Time: 18:07 Bed 6 Private MD: Pavel Curran T ED Physician Kam Parker HPI: 07/28 19:03 This 49 yrs old Female presents to ER via Wheelchair with complaints of kb Abdominal Pain, Nausea/Vomiting, Dizziness. 19:03 The patient presents with abdominal pain that is diffuse. Onset: The symptoms/episode kb began/occurred 3 day(s) ago. The symptoms do not radiate. Associated signs and symptoms: Pertinent positives: nausea, vomiting, and diarrhea, Pertinent negatives: anorexia, blood in stools, chest pain, constipation, dysuria, fever, headache, hematuria, palpitations, shortness of breath, vaginal discharge, vomiting blood. The symptoms are described as crampy. Modifying factors: The symptoms are alleviated by nothing, the symptoms are aggravated by nothing. Severity of pain: At its worst the pain was moderate in the emergency department the pain is unchanged. The patient has not experienced similar symptoms in the past. The patient has not recently seen a physician. Pt reports n/v/d and abd pain. States she hasn't been able to tolerate anything by mouth in 2 days. c/o abd cramping as well. States this feels different than abd pain she has had in the past from crohns or gastroparesis. Reports she gets dizzy when changing positions.. 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 - Social history:: Smoking status: unknown. ROS: 19:02 Constitutional: Negative for fever, chills, and weight loss, ENT: Negative for injury, kb pain, and discharge, Neck: Negative for injury, pain, and swelling, Cardiovascular: Negative for chest pain, palpitations, and edema, Respiratory: Negative for shortness of breath, cough, wheezing, and pleuritic chest pain, Back: Negative for injury and pain, MS/Extremity: Negative for injury and deformity, Skin: Negative for injury, rash, and discoloration. 19:02 Abdomen/GI: Positive for abdominal pain, nausea, vomiting, and diarrhea, abdominal cramps. 19:02 Neuro: Positive for dizziness, Negative for altered mental status, gait disturbance, headache, hearing loss, loss of consciousness, numbness, seizure activity, speech changes, syncope, near syncope, tingling, tinnitus, tremor, visual changes, weakness. Exam: 21:52 Head/Face: Normocephalic, atraumatic. Chest/axilla: Normal chest wall appearance and kb motion. Nontender with no deformity. No lesions are appreciated. Cardiovascular: Regular rate and rhythm with a normal S1 and S2. No gallops, murmurs, or rubs. Normal PMI, no JVD. No pulse deficits. Respiratory: Lungs have equal breath sounds bilaterally, clear to auscultation and percussion. No rales, rhonchi or wheezes noted. No increased work of breathing, no retractions or nasal flaring. Abdomen/GI: Soft, non-tender, with normal bowel sounds. No distension or tympany. No guarding or rebound. No evidence of tenderness throughout. Skin: Warm, dry with normal turgor. Normal color with no rashes, no lesions, and no evidence of cellulitis. MS/ Extremity: Pulses equal, no cyanosis. Neurovascular intact. Full, normal range of motion. Neuro: Awake and alert, GCS 15, oriented to person, place, time, and situation. Cranial nerves II-XII grossly intact. Motor strength 5/5 in all extremities. Sensory grossly intact. Cerebellar exam normal. Normal gait. 21:52 Constitutional: The patient appears alert, awake, uncomfortable. Vital Signs: 18:10 BP 154 / 92; Pulse 119; Resp 30; Pulse Ox 100% ; Weight 96.62 kg; Height 5 ft. 7 in. sv (170.18 cm); 19:10 BP 135 / 109; Pulse 122; Resp 31; Temp 98.3; Pulse Ox 99% on R/A; Pain 10/10; bp 20:00 BP 141 / 90; Pulse 95; Resp 17; Pulse Ox 99% on R/A; rr5 21:00 BP 133 / 77; Pulse 85; Resp 19; Pulse Ox 99% ; rr5 22:00 BP 171 / 95; Pulse 89; Resp 16; Temp 98; Pulse Ox 99% ; Pain 5/10; rr5 22:40 BP 161 / 85; Pulse 80; Resp 17; Pulse Ox 100% ; Pain 5/10; rr5 18:10 Body Mass Index 33.36 (96.62 kg, 170.18 cm) sv MDM: 18:21 Patient medically screened. kb 19:03 Data reviewed: vital signs, nurses notes. Data interpreted: Pulse oximetry: on room air kb is 100 %. Interpretation: normal. 21:52 Counseling: I had a detailed discussion with the patient and/or guardian regarding: the kb historical points, exam findings, and any diagnostic results supporting the discharge/admit diagnosis, lab results, radiology results, the need for outpatient follow up, a family practitioner, to return to the emergency department if symptoms worsen or persist or if there are any questions or concerns that arise at home. Response to treatment: the patient's symptoms have markedly improved after treatment. 07/28 18:21 Order name: Basic Metabolic Panel; Complete Time: 19:23 kb 07/28 18:21 Order name: CBC with Diff; Complete Time: 19:51 kb 07/28 18:21 Order name: Hepatic Function; Complete Time: 19:23 kb 07/28 18:21 Order name: Lipase; Complete Time: 19:23 kb 07/28 20:51 Order name: Urine Microscopic Only; Complete Time: 21:12 ar5 07/28 21:10 Order name: Urine Dipstick--Ancillary (enter results); Complete Time: 21:46 ar5 07/28 19:52 Order name: CT Abd/Pelvis - IV Contrast Only; Complete Time: 20:45 kb 07/28 21:14 Order name: Urine Culture EDNE 07/28 18:21 Order name: IV Saline Lock; Complete Time: 19:03 kb 07/28 18:21 Order name: Labs collected and sent; Complete Time: 19:03 kb 07/28 20:46 Order name: Urine Dipstick-Ancillary (obtain specimen); Complete Time: 21:09 kb Administered Medications: 18:50 Drug: NS 0.9% 1000 ml Route: IV; Rate: 1000 ml; Site: left antecubital; em 21:25 Follow up: Response: No adverse reaction; IV Status: Completed infusion; IV Intake: rr5 1000ml 18:50 Drug: Phenergan 12.5 mg Route: IVP; Site: left antecubital; em 19:30 Follow up: Response: No adverse reaction; Marked relief of symptoms rr5 19:12 Drug: fentaNYL (PF) 50 mcg {Note: RASS 0.} Route: IVP; Site: left antecubital; bp 20:10 Follow up: Response: No adverse reaction; RASS: Alert and Calm (0) rr5 20:30 Drug: Phenergan 12.5 mg Route: IVP; Site: left antecubital; rr5 21:30 Follow up: Response: No adverse reaction; Marked relief of symptoms rr5 21:23 Drug: NS 0.9% 1000 ml Route: IV; Rate: 1000 ml; Site: left antecubital; rr5 22:34 Follow up: Response: No adverse reaction; IV Status: Completed infusion; IV Intake: rr5 1000ml 21:23 Drug: fentaNYL (PF) 50 mcg {Note: rass 0.} Route: IVP; Site: left antecubital; rr5 22:20 Follow up: Response: No adverse reaction; Pain is decreased; RASS: Alert and Calm (0) rr5 21:25 Drug: Rocephin 1 grams Route: IV; Rate: bolus; Site: left antecubital; rr5 22:00 Follow up: Response: No adverse reaction; IV Status: Completed infusion; IV Intake: [id number] 21:25 CANCELLED (Duplicate Order): Rocephin 1 grams IV at calculated rate once; Given slow IV rr5 push per pharmacy instructions Disposition: 07/29 14:33 Co-signature as Attending Physician, Kam Parker MD I agree with the assessment and zoe plan of care. Disposition: 07/29/19 21:53 Discharged to Home. Impression: Dehydration, Cystitis. - Condition is Stable. - Discharge Instructions: Urinary Tract Infection, Adult, Nesv-hy-Ttzt, Dehydration, Adult, Fimv-kp-Bamv. - Prescriptions for Macrobid 100 mg Oral Capsule - take 1 capsule by ORAL route every 12 hours for 7 days; 14 capsule. promethazine 25 mg Oral Tablet - take 1 tablet by ORAL route every 8 hours As needed; 20 tablet. - Medication Reconciliation Form, Thank You Letter, Antibiotic Education, Prescription Opioid Use form. - Follow up: Emergency Department; When: As needed; Reason: Worsening of condition. Follow up: Private Physician; When: 2 - 3 days; Reason: Recheck today's complaints, Continuance of care, Re-evaluation by your physician. Signatures: Dispatcher [employer] EDMS Cookie Walker, JAQUAN-C CARGO INSPECTOR-Julianne Yusuf, RN RN Kam Rodriguez MD MD cha Munoz, Edgar, RN RN Real Pierson RN RN Bebeto Jordan, RN RN rr5 Corrections: (The following items were deleted from the chart) 07/28 21:25 21:25 Rocephin 1 grams IV at calculated rate once; Given slow IV push per pharmacy rr5 instructions ordered. kb 22:44 21:53 07/29/2019 21:53 Discharged to Home. Impression: Dehydration; Cystitis. Condition rr5 is Stable. Forms are Medication Reconciliation Form, Thank You Letter, Antibiotic Education, Prescription Opioid Use. Follow up: Emergency Department; When: As needed; Reason: Worsening of condition. Follow up: Private Physician; When: 2 - 3 days; Reason: Recheck today's complaints, Continuance of care, Re-evaluation by your physician. kb
[2019-07-29 23:52] VITALS: TEMP 98.3; O2SAT 99
[2019-07-30 00:08] VITALS: BP 133/77
== END 2019-07-29 22:44 | disposition home or self-care (01) ==
LOC: ER 18:04
DX: E86.0 Dehydration (principal); N30.90 Cystitis, unspecified without hematuria; I10 Essential (primary) hypertension; Z88.5 Allergy status to narcotic agent; Z88.8 Allergy status to other drugs, medicaments and biological substances; R11.2 Nausea with vomiting, unspecified
CPT/HCPCS: 96365; 96361; 87088; 85025; 87086; 80048; 36415; 80076; 83690; 74177; 96375; 99284; Q9967; J2550 ×2; J3010; J0696; J7030 ×2; 81003; 81015

== ENCOUNTER 2019-08-18 17:00 | Emergency (ER) | payer OTHER ==
--- OUTSIDE RECORDS SUMMARY | 2019-08-18 17:33 | XMS REPORT | Summary of Care ---
:1970 Author Organization [facility] Address [address] [place] [id number] Care Team Providers Name Role Phone Fahad Curran Primary Care Provider Reason for Visit Reason Comments Error Encounter Details Date Type Department Care Team Description 08/06/2019 Telephone ACCESS CENTER Apoorva Barragan RN Error [address] [phone] [place] [address] Allergies Active Allergy Reactions Severity Noted Date Comments Loratadine Palpitations 04/22/2015 Prochlorperazine Edisylate Other - See comments 2015 seizures Meperidine Hcl Rash 04/22/2015 Npkppnkfs-Ijroww-Fqzgomjo-Scop Anaphylaxis 04/22/2015 Morphine Rash 04/22/2015 Mushroom Hives 03/28/2016 documented as of this encounter (statuses as of 08/06/2019) Medications Medication Sig Dispensed Refills Start Date End Date Status ARIPiprazole (ABILIFY) Take 2 mg by 0 Active 2 mg tablet mouth daily. tiZANidine (ZANAFLEX) 4 Take 4 mg by 0 Active mg capsule mouth 2 (two) times daily. citalopram (CELEXA) 40 Take 40 mg by 0 Active mg tablet mouth daily. clonazePAM (KLONOPIN) Take by mouth 2 0 Active 0.5 mg disintegrating (two) times daily tablet as needed for Anxiety. ZN GLUC/PUMP SEED Take by mouth. 0 Active OIL/SAW PAL (PROPALMEX ORAL) propranolol (INDERAL) Take 60 mg by 0 Active 60 mg tablet mouth daily. butorphanol (STADOL) 10 Use 1 [place] in 0 Active mg/mL nasal spray each nostril as needed for Pain. METFORMIN HCL Take 500 mg by 0 A ctive (METFORMIN ORAL) mouth 2 (two) times daily. HYDROcodone-acetaminoph Take 1 Tab by 30 Tab 0 04/28/2015 Active en (NORCO) 10-325 mg mouth every 6 tablet (six) hours as needed for Pain (scale 4-6) or Pain (scale 7-10). zolpidem 12.5 mg CR Take 12.5 mg by 0 Active tablet mouth at bedtime as needed for Sleep. metroNIDAZOLE (FLAGYL) Take 1 tablet by 30 tablet 0 03/29/2016 Active 500 mg tablet mouth every 8 (eight) hours. levoFLOXacin 500 mg Take 1 tablet by 10 tablet 0 03/29/2016 Active tablet mouth every 24 (twenty-four) hours. traMADOL 50 mg tablet Take 2 tablets by 60 tablet 1 06/01/2016 Active mouth every 6 (six) hours as needed for Pain (scale 4-6) or Pain (scale 7-10). acetaminophen 650 mg CR Take 1 tablet by 20 tablet 0 0 Active tabletIndications: mouth every 8 Migraine equivalent (eight) hours as needed for Pain or Fever. brompheniramine-pseudoe Take 10 mL by 120 mL 0 08/04/2019 Active phedrine-DM (BROMFED mouth 4 (four) DM) 2-30-10 mg/5 mL times daily as syrupIndications: Cough needed for Cough. Bismuth Subsalicylate Take 1 tablet by 30 tablet 1 08/04/2019 Active (PEPTO-BISMOL) 262 mg mouth 4 (four) tabletIndications: times daily as Loose stools needed (diarrhea). proMETHazine 25 mg Take 1 tablet by 30 tablet 0 08/04/2019 Active tabletIndications: mouth every 6 Nausea (six) hours as needed for Nausea and Vomiting (N/V). 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 documented as of this encounter Last Filed Vital Signs Not on filedocumented in this encounter Plan of Treatment Health Maintenance Due Date Last Done Comments PNEUMOCOCCAL 0-64 YEARS COMBINED 1975 SERIES (1 of 1 - PPSV23) EYE EXAM 1979 LDL-C 1979 URINE MICROALBUMIN 1979 DTaP,Tdap,and Td Vaccines (1 - 02/22/1980 Tdap) FOOT EXAM 1987 PAP SMEAR 1990 Breast Cancer Screening 2009 (MAMMOGRAM) HgA1C 09/26/2016 03/28/2016 CREATININE (SERUM) 08/24/2017 08/24/2016, 05/31/2016, 05/30/2016, Additional history exists COLONOSCOPY 2019 Zoster Recombinant Vaccine 2019 (SHINGRIX) (1 of 2) INFLUENZA VACCINE (Season Ended) 2019 06/01/2016 documented as of this encounter Results Not on filedocumented in this encounter
--- OUTSIDE RECORDS SUMMARY | 2019-08-18 17:33 | XMS REPORT | Summary of Care ---
:1970 Author Organization [facility] Address [address] [place] [id number] Care Team Providers Name Role Phone Fahad Curran Primary Care Provider Reason for Visit Reason Comments Results Encounter Details Date Type Department Care Team Description 08/05/2019 Telephone ACCESS CENTER Jinny Box RN Results [address] [phone] [place] [address] Allergies Active Allergy Reactions Severity Noted Date Comments Loratadine Palpitations 04/22/2015 Prochlorperazine Edisylate Other - See comments 2015 seizures Meperidine Hcl Rash 04/22/2015 Gtknmfeet-Fkaavr-Njmufewi-Scop Anaphylaxis 04/22/2015 Morphine Rash 04/22/2015 Mushroom Hives [...] mouth daily. butorphanol (STADOL) 10 Use 1 [place] in 0 Active mg/mL nasal spray each [...]
--- OUTSIDE RECORDS SUMMARY | 2019-08-18 17:33 | XMS REPORT ---
:1970 Author Organization [facility] t Address [address] [place] [address] Care Team Providers Name Role Phone Laurel JOHNS Attending Clinician Unavailable Isauro JOHNS Attending Clinician Unavailable BRENNEN Attending Clinician Unavailable BRENNEN Admitting Clinician Unavailable Problems This patient has no known problems. Allergies, Adverse Reactions, Alerts This patient has no known allergies or adverse reactions. Medications This patient has no known medications. Procedures This patient has no known procedures. Encounters Start End Encounter Admission Attending Care Care Encounter Source Date/Time Date/Time Type Type Clinicians Facility Department ID 2019-08-06 2019-08-06 Telephone IQRA Barragan [id number] 00:00:00 00:00:00 Apoorva GREGORY [id number] [place] [id number] 2019-08-06 2019-08-06 Telephone IQRA [id number] 00:00:00 00:00:00 Jinny GREGORY [id number] 2019-08-05 2019-08-05 Telephone IQRA [id number] 00:00:00 00:00:00 Jinny ZHOUY [id number] [place] [id number] Results Test Description Test Time Test Comments Results Result Comments Source POCT-GLUCOSE METER 2017-09-01 17:07:00 Test Item Value Reference Range Interpretation Comme nts POC-GLUCOSE METER ([facility]) (test 298 mg/dL 70-110 H TESTED AT [address] code = 1538) [facility] 7703 0 POCT-GLUCOSE [id number] 12:11:00 Test Item Value Reference Range Interpretation Comments POC-GLUCOSE METER 331 mg/dL 70-110 H Notified Rina Low MD/TESTED ([facility]) (test code = AT [address] 1538) [facility] 7703 0 POCT-GLUCOSE [id number] 10:55:00 Test Item Value Reference Range Interpretation Comments POC-GLUCOSE METER 365 mg/dL 70-110 H TESTED AT [place] [address] ([facility]) (test code = ELIZABETH Flynn [facility] 1538) [address] POCT-GLUCOSE [id number] 08:44:00 Test Item Value Reference Range Interpretation Comments POC-GLUCOSE METER 291 mg/dL 70-110 H TESTED AT [place] [address] ([facility]) (test code = ELIZABETH Flynn [facility] 1538) [address] LIPID [id number] 05:56:00 Test Item Value Reference Range Interpretation Comments TRIGLYCERIDES ([facility]) (test code = 279 mg/dL 540) CHOLESTEROL ([facility]) (test code = 119 mg/dL 631) HDL CHOLESTEROL ([facility]) (test code 22 mg/dL = 976) LDL CHOLESTEROL CALCULATED ([facility]) 41 mg/dL (test code = 633) Triglyceride Reference Range: Low Risk <150 Borderline 150-199 High Risk 200-499 Very High Risk >=500Cholesterol Reference Range: Low Risk <200 Borderline 200-239 High Risk >240HDL Cholesterol Reference Range: Low Risk >=60 High Risk <40LDL Cholesterol Reference Range: Optimal <100 Near Optimal 100-129 Borderline 130-159 High 160-189 Very High >=190POCT-GLUCOSE [id number] 21:50:00 Test Item Value Reference Range Interpretation Comments POC-GLUCOSE METER 318 mg/dL 70-110 H TESTED AT [place] [address] ([facility]) (test code = ELIZABETH Flynn [facility] 1538) [address] POCT-GLUCOSE [id number] 18:04:00 Test Item Value Reference Range Interpretation Comments POC-GLUCOSE METER 238 mg/dL 70-110 H TESTED AT [place] [address] ([facility]) (test code = ELIZABETH [place] 1538) [address] POCT-GLUCOSE [id number] 12:22:00 Test Item Value Reference Range Interpretation Comments POC-GLUCOSE METER 290 mg/dL 70-110 H TESTED AT [place] [address] ([facility]) (test code = ELIZABETH [place] 1538) [address] POCT-GLUCOSE [id number] 09:20:00 Test Item Value Reference Range Interpretation Comments POC-GLUCOSE METER 293 mg/dL 70-110 H TESTED AT [place] [address] ([facility]) (test code = ELIZABETH [place] 1538) [address] POCT-GLUCOSE [id number] 21:00:00 Test Item Value Reference Range Interpretation Comments POC-GLUCOSE METER 225 mg/dL 70-110 H TESTED AT [place] [address] ([facility]) (test code = ELIZABETH [place] 1538) [address] CT, CAROTID, [id number] 18:01:00FINAL REPORT CT angiogram of the upper [...] Hall Verified Date/Time: 08/30/2017 18:01:31 Reading Location: [address] Neuro Reading Room , CTANGIO [id number] 18:01:00FINAL REPORT CT angiogram of the upper [...] Hall Verified Date/Time: 08/30/2017 18:01:31 Reading Location: [address] Neuro Reading Room -GLUCOSE [id number] 17:21:00 Test Item Value Reference Range Interpretation Comments POC-GLUCOSE METER 256 mg/dL 70-[address] [facility] 67 (JESSICA) (test code = ELIAZBETH [place] 1538 [address] POCT-GLUCOSE [id number] 12:00:00 Test Item Value Reference Range Interpretation Comments POC-GLUCOSE METER 289 mg/dL 70-110 H TESTED AT [place] [address] ([facility]) (test code = ELIZABETH [place] 1538) [address] BASIC METABOLIC [id number] 10:12:00 Test Item Value Reference Range Interpretation Comments SODIUM (BEAKER) 137 meq/L 136-145 (test code = 381) POTASSIUM (BEAKER) 4.1 meq/L 3.5-5.1 (test code = 379) CHLORIDE (BEAKER) 106 meq/L 98-107 (test code = 382) CO2 (BEAKER) (test 24 meq/L 22-29 code = 355) BLOOD UREA NITROGEN 11 mg/dL 7-21 (BEAKER) (test code = 354) CREATININE (BEAKER) 0.81 mg/dL 0.57-1.25 (test code = 358) GLUCOSE RANDOM 264 mg/dL 70-105 H (BEAKER) (test code = 652) CALCIUM (BEAKER) 9.1 mg/dL 8.4-10.2 (test code = 697) EGFR (BEAKER) (test 75 mL/min/1.73 ESTIMA JENY GFR IS code = 1092) sq m NOT ACCURATE CREATININE CLEARANCE IN PREDICTING GLOMERULAR FILTRATION RATE . ESTIMATED GFR I S NOT APPLICABLE FOR DIALYSIS PATIEN TS. POCT-GLUCOSE [id number] 08:42:00 Test Item Value Reference Range Interpretation Comments POC-GLUCOSE METER 259 mg/dL 70-110 H TESTED AT [place] [id number] ([facility]) (test code = ELIZABETH Flynn [place] 1538) [address] TROPONIN [id number] 06:14:00 Test Item Value Reference Range Interpretation Comments TROPONIN I (BEAKER) (test code = [...] 2017-08-30 06:09:00 Test Item Value Reference Range Interpretation Comments WHITE BLOOD CELL COUNT (BEAKER) 6.6 K/ L 3.5-10.5 (test code = 775) RED BLOOD CELL COUNT (BEAKER) 4.40 M/ L 3.93-5.22 (test code = 761) HEMOGLOBIN (BEAKER) (test code = 11.8 GM/DL 11.2-15.7 410) HEMATOCRIT (BEAKER) (test code = 36.1 % 34.1-44.9 411) MEAN CORPUSCULAR VOLUME (BEAKER) 82.0 fL 79.4-94.8 (test code = 753) MEAN CORPUSCULAR HEMOGLOBIN 26.8 pg 25.6-32.2 (BEAKER) (test code = 751) MEAN CORPUSCULAR HEMOGLOBIN CONC 32.7 GM/DL 32.2-35.5 (BEAKER) (test code = 752) RED CELL DISTRIBUTION WIDTH 13.2 % 11.7-14.4 (BEAKER) (test code = 412) PLATELET COUNT (BEAKER) (test 231 K/CU MM 150-450 code = 756) MEAN PLATELET VOLUME (BEAKER) 10.9 fL 9.4-12.3 (test code = 754) NUCLEATED RED BLOOD CELLS 0 /100 WBC 0-0 (BEAKER) (test code = 413) NEUTROPHILS RELATIVE PERCENT 50 % (BEAKER) (test code = 429) LYMPHOCYTES RELATIVE PERCENT 41 % (BEAKER) (test code = 430) MONOCYTES RELATIVE PERCENT 6 % (BEAKER) (test code = 431) EOSINOPHILS RELATIVE PERCENT 2 % (BEAKER) (test code = 432) BASOPHILS RELATIVE PERCENT 1 % (BEAKER) (test code = 437) NEUTROPHILS ABSOLUTE COUNT 3.34 K/ L 1.56-6.13 (BEAKER) (test code = 670) LYMPHOCYTES ABSOLUTE COUNT 2.67 K/ L 1.18-3.74 (BEAKER) (test code = 414) MONOCYTES ABSOLUTE COUNT (BEAKER) 0.40 K/ L 0.24-0.36 H (test code = 415) EOSINOPHILS ABSOLUTE COUNT 0.15 K/ L 0.04-0.36 (BEAKER) (test code = 416) BASOPHILS ABSOLUTE COUNT (BEAKER) 0.03 K/ L 0.01-0.08 (test code = 417) IMMATURE GRANULOCYTES-RELATIVE 0 % 0-1 PERCENT (JESSICA) (test code = 2801) RAD, CHEST, 1 VIEW, NON [id number] 04:23:00Reason for exam:->chest painShould this be performed at the bedside?->YesFINAL REPORT Comparison examination: None No pneumothorax, focal pulmonary co nsolidation, or significant pleural effusion. Normal cardiomediastinal contours. Normal skeleton and soft tissues. Impression: No acute abnormality. Signed: Ervin Jenkins MDReport Verified Date/Time: 08/30/2017 04:23:04 Reading Location: [address] Reading Room POCT-GLUCOSE [id number] 21:18:00 Test Item Value Reference Range Interpretation Comments POC-GLUCOSE METER 151 mg/dL 70-110 H TESTED AT [place] [address] ([facility]) (test code = [facility] 1538) [address] POCT-GLUCOSE [id number] 17:59:00 Test Item Value Reference Range Interpretation Comments POC-GLUCOSE METER 146 mg/dL 70-110 H TESTED AT [place] [address] ([facility]) (test code = [facility] 1538) [address] HEMOGLOBIN [id number] 15:56:00 Test Item Value Reference Range Interpretation Comments HEMOGLOBIN A1C ([facility]) (test code = 13.7 % 4.3-6.1 H 368) CT, BRAIN, WITHOUT [id number] 14:52:00FINAL REPORT CT head without contrast. Comparisons: [...] Hall Verified Date/Time: 08/29/2017 14:52:09 Reading Location: [facility] C013V Neuro Reading Room POCT-GLUCOSE [id number] 14:17:00 Test Item Value Reference Range Interpretation Comments POC-GLUCOSE METER 423 mg/dL 70-110 Notified R N MD/TESTED (BEAKER) (test code = AT [facility] [address] [facility] 1538) [place] [address] VITAMIN [id number] 06:48:00 Test Item Value Reference Range Interpretation Comments VITAMIN B12 (BEAKER) (test code = 300 pg/mL 213-816 774) TSH/FREE T4 IF [id number] 06:48:00 Test Item Value Reference Range Interpretation Comments THYROID STIMULATING HORMONE 1.55 uIU/mL 0.35-4.94 (BEAKER) (test code = 772) CBC W/PLT COUNT & AUTO [id number] 05:10:00 Test Item Value Reference Range Interpretation Comments WHITE BLOOD CELL COUNT (BEAKER) 8.6 K/ L 3.5-10.5 (test code = 775) RED BLOOD CELL COUNT (BEAKER) 4.62 M/ L 3.93-5.22 (test code = 761) HEMOGLOBIN (BEAKER) (test code = 12.2 GM/DL 11.2-15.7 410) HEMATOCRIT (BEAKER) (test code = 42.2 % 34.1-44.9 411) MEAN CORPUSCULAR VOLUME (BEAKER) 91.3 fL 79.4-94.8 (test code = 753) MEAN CORPUSCULAR HEMOGLOBIN 26.4 pg 25.6-32.2 (BEAKER) (test code = 751) MEAN CORPUSCULAR HEMOGLOBIN CONC 28.9 GM/DL 32.2-35.5 L (BEAKER) (test code = 752) RED CELL DISTRIBUTION WIDTH 13.2 % 11.7-14.4 (BEAKER) (test code = 412) PLATELET COUNT (BEAKER) (test code 80 K/CU MM 150-450 L = 756) MEAN PLATELET VOLUME (BEAKER) 10.9 fL 9.4-12.3 (test code = 754) NUCLEATED RED BLOOD CELLS (BEAKER) 0 /100 WBC 0-0 (test code = 413) NEUTROPHILS RELATIVE PERCENT 45 % (BEAKER) (test code = 429) LYMPHOCYTES RELATIVE PERCENT 46 % (BEAKER) (test code = 430) MONOCYTES RELATIVE PERCENT 6 % (BEAKER) (test code = 431) EOSINOPHILS RELATIVE PERCENT 2 % (BEAKER) (test code = 432) BASOPHILS RELATIVE PERCENT 1 % (BEAKER) (test code = 437) NEUTROPHILS ABSOLUTE COUNT 3.91 K/ L 1.56-6.13 (BEAKER) (test code = 670) LYMPHOCYTES ABSOLUTE COUNT 3.95 K/ L 1.18-3.74 H (BEAKER) (test code = 414) MONOCYTES ABSOLUTE COUNT (BEAKER) 0.54 K/ L 0.24-0.36 H (test code = 415) EOSINOPHILS ABSOLUTE COUNT 0.13 K/ L 0.04-0.36 (BEAKER) (test code = 416) BASOPHILS ABSOLUTE COUNT (BEAKER) 0.07 K/ L 0.01-0.08 (test code = 417) IMMATURE GRANULOCYTES-RELATIVE 0 % 0-1 PERCENT (BEAKER) (test code = 2801) URINALYSIS W/ [id number] 23:32:00 Test Item Value Reference Range Interpretation Comments COLOR (BEAKER) (test code = 470) Brown CLARITY (BEAKER) (test code = 469) Hazy SPECIFIC GRAVITY UA (BEAKER) (test 1.016 1.001-1.035 code = 468) PH UA (BEAKER) (test code = 467) 5.0 5.0-8.0 PROTEIN UA (BEAKER) (test code = 30 mg/dL Negative A 464) GLUCOSE UA (BEAKER) (test code = 300 mg/dL Negative A 365) KETONES UA (BEAKER) (test code = Negative Negative 371) BILIRUBIN UA (BEAKER) (test code = Positive Negative A 462) BLOOD UA (BEAKER) (test code = Negative Negative 461) NITRITE UA (BEAKER) (test code = Positive Negative A 465) LEUKOCYTE ESTERASE UA (BEAKER) Small Negative A (test code = 466) UROBILINOGEN UA (BEAKER) (test 3.0 mg/dL 0.2-1.0 H code = 463) RBC UA (BEAKER) (test code = 519) 2 /HPF WBC UA (BEAKER) (test code = 520) 24 /HPF BACTERIA (BEAKER) (test code = Many 517) MUCUS (BEAKER) (test code = 1574) Rare SQUAMOUS EPITHELIAL (BEAKER) (test 7 /HPF code = 516) HYALINE CASTS (BEAKER) (test code 16 /LPF = 514) CASTS (BEAKER) (test code = 1579) 16 /LPF YEAST (BEAKER) (test code = 1585) Occasional SOURCE(BEAKER) (test code = 2795) TROPONIN [id number] 23:12:00 Test Item Value Reference Range Interpretation Comments TROPONIN I (BEAKER) (test code = [...] acute neurological disease, and persistent tachyarrhythmia.BASIC METABOLIC [id number] 23:05:00 Test Item Value Reference Range Interpretation Comments SODIUM (BEAKER) 128 meq/L 136-145 L (test code = 381) POTASSIUM (BEAKER) 4.9 meq/L 3.5-5.1 Specimen moderately (test code = 379) hemolyzed CHLORIDE (BEAKER) 100 meq/L 98-107 (test code = 382) CO2 (BEAKER) (test 13 meq/L 22-29 L code = 355) BLOOD UREA NITROGEN 29 mg/dL 7-21 H (BEAKER) (test code = 354) CREATININE (BEAKER) 1.55 mg/dL 0.57-1.25 H Specimen moderately (test code = 358) hemolyzed GLUCOSE RANDOM 326 mg/dL 70-105 H (BEAKER) (test code = 652) CALCIUM (BEAKER) 9.6 mg/dL 8.4-10.2 (test code = 697) EGFR (BEAKER) (test 36 mL/min/1.73 ESTIMA JENY GFR IS code = 1092) sq m NOT ACCURATE CREATININE CLEARANCE IN PREDICTING GLOMERULAR FILTRATION RATE . ESTIMATED GFR I S NOT APPLICABLE FOR DIALYSIS PATIEN TS. POCT-GLUCOSE [id number] 20:49:00 Test Item Value Reference Range Interpretation Comments POC-GLUCOSE METER 376 mg/dL 70-110 H Notified R Devante SOUZA/TESTED (JESSICA) (test code = AT [facility] [address] [address]) [facility] [address]
--- OUTSIDE RECORDS SUMMARY | 2019-08-18 17:33 | XMS REPORT | Summary of Care ---
:1970 Author Organization [facility] - [facility] Address [address] [place] [address] Care Team Providers Name Role Phone Fahad Curran Primary Care Provider Reason for Visit Reason Comments Nausea Headache Chills Cough Diarrhea Encounter Details Date Type Department Care Team Description 08/04/2019 Urgent Care [facility] Family Rl Chaparro MD [address] [place] [address] Migraine equivalent (Primary Dx); [place] [address], Acute Care [facility] Loss of taste; [address] [facility] Asa [facility]ley Nausea; [place], [place] Cough; [address] Dehydration; [phone] Loose stools Allergies Active Allergy Reactions Severity Noted Date Comments Loratadine Palpitations 04/22/2015 Prochlorperazine Edisylate Other - See comments 2015 seizures Meperidine Hcl Rash 04/22/2015 Zlbotbbyd-Odcjwa-Vdvhitbi-Scop Anaphylaxis 04/22/2015 Morphine Rash 04/22/2015 Mushroom Hives 03/28/2016 documented as of this encounter (statuses as of 08/04/2019) Medications Medication Sig Dispensed Refills Start Date End Date Status ARIPiprazole Take 2 mg by 0 Acti ve (ABILIFY) 2 mg mouth daily. tablet tiZANidine Take 4 mg by 0 Active (ZANAFLEX) 4 mg mouth 2 (two) capsule times daily. citalopram (CELEXA) Take 40 mg by 0 Active 40 mg tablet mouth daily. clonazePAM Take by 0 Active (KLONOPIN) 0.5 mg mouth 2 (two) disintegrating times daily tablet as needed for Anxiety. ZN GLUC/PUMP SEED Take by 0 Ac tive OIL/SAW PAL mouth. (PROPALMEX ORAL) propranolol Take 60 mg by 0 Acti ve (INDERAL) 60 mg mouth daily. tablet butorphanol Use 1 Omar 0 Active (STADOL) 10 mg/mL in each nasal spray nostril as needed for Pain. METFORMIN HCL Take 500 mg 0 Acti ve (METFORMIN ORAL) by mouth 2 (two) times daily. HYDROcodone-acetami Take 1 Tab by 30 Tab 0 04/28/2015 Active nophen (NORCO) mouth every 6 10-325 mg tablet (six) hours as needed for Pain (scale 4-6) or Pain (scale 7-10). zolpidem 12.5 mg CR Take 12.5 mg 0 Active tablet by mouth at bedtime as needed for Sleep. metroNIDAZOLE Take 1 tablet 30 tablet 0 03/29/2016 A ctive (FLAGYL) 500 mg by mouth tablet every 8 (eight) hours. levoFLOXacin 500 mg Take 1 tablet 10 tablet 0 03/29/2016 Active tablet by mouth every 24 (twenty-four) hours. traMADOL 50 mg Take 2 60 tablet 1 06/01/2016 Acti ve tablet tablets by mouth every 6 (six) hours as needed for Pain (scale 4-6) or Pain (scale 7-10). acetaminophen 650 Take 1 tablet 20 tablet 0 08/04/2019 Active mg CR by mouth tabletIndications: every 8 Migraine equivalent (eight) hours as needed for Pain or Fever. brompheniramine-pse Take 10 mL by 120 mL 0 08/04/2019 Active udoephedrine-DM mouth 4 (BROMFED DM) (four) times 2-30-10 mg/5 mL daily as syrupIndications: needed for Cough Cough. Bismuth Take 1 tablet 30 tablet 1 08/04/2019 Activ e Subsalicylate by mouth 4 (PEPTO-BISMOL) 262 (four) times mg daily as tabletIndications: needed Loose stools (diarrhea). proMETHazine 25 mg Take 1 tablet 30 tablet 0 08/04/2019 Active tabletIndications: by mouth Nausea every 6 (six) hours as needed for Nausea and Vomiting (N/V). proMETHazine 25 mg Take 1 tablet 30 tablet 0 03/29/2016 Discontinued tablet by mouth 0 (Reorder) every 6 (six) hours as needed for Nausea and Vomiting (N/V). 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 documented as of this encounter (statuses as of 08/04/2019) Immunizations Name Administration Dates Next Due Influenza [...] of this encounter Last Filed Vital Signs Vital Sign Reading Time Taken Comments Blood Pressure 133/91 08/04/2019 2:56 PM CDT Pulse 107 08/04/2019 2:47 PM CDT Temperature 37.1 C (98.7 F) 08/04/2019 2:47 PM CDT Respiratory Rate 20 08/04/2019 2:47 PM CDT Oxygen Saturation 100% 08/04/2019 2:47 PM CDT Inhaled Oxygen Concentration - - Weight 98 kg (216 lb) 08/04/2019 2:47 PM CDT Height 170.2 cm (5' 7") 08/04/2019 2:47 PM CDT Body Mass Index 33.83 08/04/2019 2:47 PM CDT documented in this encounter Patient Instructions Patient InstructionsEdJosr elmore MD - 08/04/2019 3:00 PM CDTSelf Care Guidelines pending COVID-19 Screen Result - Increase fluid intake - Self quarantine until otherwise instructed - Call clinic/911 or go to ER should symptoms worsen or fail to improve - Sipping on warm water with lemon juice is effective at helping clear post nasal drip from back of throat -Turn on hot shower water, close the bathroom door, sit down, and inhale the steam -Use a vaporizer/humidifier to increase humidity in rooms -Use Tylenol as directed on bottle for pain/fever. - Steph [place] Day/Night Cold and Flu Severe is a good multi symptom cold medication, however do nottake extra Tylenol in addition to these. -Sipping hot water or warm drinks may be more soothing to the nasal passages than ice cold drinks. -Avoid extremely cool and dry air. -Nasal saline rinses may provide temporary relief of congestion and help remove post nasal drip fromback of throat (use distilled water only) -Drinking 8 or more 8-oz glasses of water, juice, or noncaffeinated beverages daily may help to thinmucous secretions and replace fluid losses. -Home-care measures to relieve throat symptoms include warm saline gargles, which may reduce associated edema; lozenges; popsicles; and cold and slushy beverages. -An upright or semiupright posture, such as sleeping with the head and shoulders raised, may decrease cough related to pharyngeal secretions. documented in this encounter Progress Notes Josr Chaparro MD - 08/04/2019 3:00 PM CDT Cc: Chief Complaint Patient presents with Nausea Headache Chills Cough Elly Clarke is a 49 year old female presents with PMH migraine, Crohn and as noted below presents with c/o GERBER, cough, chills, loss of taste, loose stools and nausea. Patient reports Sx started about a week ago, was seen at external ER, diagnosed and treated for UTI, received IV fluid x 4 bags at the time and discharged home on antibiotics, which she is currently taking. Patient lives with her family, all doing well. Patient denies known sick contacts or exposure to COVID-19. She denies recent travel, domestic or international. Allergies Elly is allergic to claritin [loratadine]; compazine [prochlorperazine edisylate]; demerol [meperidine hcl]; [hehgczuql-wmzphs-wxqvznhi-scop]; morphine; and mushroom. Medications Outpatient Medications Prior to Visit Medication Sig Dispense Refill traMADOL 50 mg tablet Take 2 tablets by mouth every 6 (six) hours as needed for Pain (scale 4-6)or Pain (scale 7-10). 60 tablet 1 levoFLOXacin 500 mg tablet Take 1 tablet by mouth every 24 (twenty-four) hours. 10 tablet 0 metroNIDAZOLE (FLAGYL) 500 mg tablet Take 1 tablet by mouth every 8 (eight) hours. 30 tablet 0 proMETHazine 25 mg tablet Take 1 tablet by mouth every 6 (six) hours as needed for Nausea and Vomiting (N/V). 30 tablet 0 zolpidem 12.5 mg CR tablet Take 12.5 mg by mouth at bedtime as needed for Sleep. HYDROcodone-acetaminophen (NORCO) 10-325 mg tablet Take 1 Tab by mouth every 6 (six) hours as needed for Pain (scale 4-6) or Pain (scale 7-10). 30 Tab 0 ARIPiprazole (ABILIFY) 2 mg tablet Take 2 mg by mouth daily. butorphanol (STADOL) 10 mg/mL nasal spray Use 1 Omar in each nostril as needed for Pain. citalopram (CELEXA) 40 mg tablet Take 40 mg by mouth daily. METFORMIN HCL (METFORMIN ORAL) Take 500 mg by mouth 2 (two) times daily. propranolol (INDERAL) 60 mg tablet Take 60 mg by mouth daily. tiZANidine (ZANAFLEX) 4 mg capsule Take 4 mg by mouth 2 (two) times daily. ZN GLUC/PUMP SEED OIL/SAW PAL (PROPALMEX ORAL) Take by mouth. clonazePAM (KLONOPIN) 0.5 mg disintegrating tablet Take by mouth 2 (two) times daily as needed for Anxiety. No facility-administered medications prior to visit. Histories Past Medical History: Diagnosis Date Arthritis Crohn's colitis Endometriosis H/O: hysterectomy HTN (hypertension) Hx of non-insulin dependent diabetes mellitus Migraine Pancreatitis Past Surgical History: Procedure Laterality Date COLONOSCOPY N/A 04/26/2015 Surgeon: Clement Sarmiento MD; [place] [facility] [place] N[place]A 11/29/2015 Surgeon: Facundo Faria [place]; [place] [facility] [place],FULGURATE/EXCISE LESIONS age 15-20 Multiple for endometriosis TONSILLECTOMY TOTAL ABDOMINAL HYSTERECTOMY TOTAL KNEE ARTHROPLASTY Social History Socioeconomic History Marital status: Spouse name: Not on file Number of children: Not on file Years of education: Not on file Highest education level: Not on file Occupational History Not on file Social Needs Financial resource strain: Not on file Food insecurity: Worry: Not on file Inability: Not on file Transportation needs: Medical: Not on file Non-medical: Not on file Tobacco Use Smoking status: Never Smoker Smokeless tobacco: Never Used Substance and Sexual Activity Alcohol use: Not on file Drug use: Not on file Sexual activity: Not on file Lifestyle Physical activity: Days per week: Not on file Minutes per session: Not on file Stress: Not on file Relationships Social connections: Talks on phone: Not on file Gets together: Not on file Attends zoroastrianism service: Not on file Active member of club or organization: Not on file Attends meetings of clubs or organizations: Not on file Relationship status: Not on file Intimate partner violence: Fear of current or ex partner: Not on file Emotionally abused: Not on file Physically abused: Not on file Forced sexual activity: Not on file Other Topics Concern Not on file Social History Narrative Not on file No family history on file. Review of Systems Constitutional: Negative for chills and fever. HENT: Negative for congestion, postnasal drip, rhinorrhea and sore throat. Respiratory: Positive for cough. Negative for chest tightness and shortness of breath. Cardiovascular: Negative for chest pain and palpitations. Gastrointestinal: Positive for diarrhea. Musculoskeletal: Negative for arthralgias and myalgias. Neurological: Positive for headaches. Negative for weakness. Vital Signs BP (!) 133/91 (BP Location: Left arm, Patient Position: Sitting, BP CUFF SIZE: Adult Large) | [id number] | Temp 37.1 C (98.7 F) (Oral) | Resp 20 | Ht 5' 7" (1.702 m) | Wt 216 lb (98 kg) | [id number]% | BMI 33.83 kg/m Physical Exam Constitutional: She is oriented to person, place, and time. No distress. Eyes: Pupils are equal, round, and reactive to light. EOM are normal. Neck: Normal range of motion. Neck supple. Cardiovascular: Normal rate and regular rhythm. Pulmonary/Chest: Effort normal and breath sounds normal. Abdominal: Soft. Bowel sounds are normal. There is no tenderness. Musculoskeletal: Normal range of motion. Neurological: She is alert and oriented to person, place, and time. Skin: Skin is warm and dry. Capillary refill takes less than 2 seconds. Pallor: Psychiatric: She has a normal mood and affect. Her behavior is normal. Nursing note and vitals reviewed. Assessment/Plan Migraine equivalent - Complicated by dehydration, s/p IV NS x 4. Encouraged to maintain good hydration - acetaminophen 650 mg CR tablet; Take 1 tablet by mouth every 8 (eight) hours as needed for Pain orFever. Dispense: 20 tablet; Refill: 0 Cough - kfdplsdcbhnkhtg-rmeyogzpchcludi-TQ (BROMFED DM) 2-30-10 mg/5 mL syrup; Take 10 mL by mouth 4 (four) times daily as needed for Cough. Dispense: 120 mL; Refill: 0 Loss of taste - Anticipatory guidance discussed - CORONAVIRUS COVID-19 TESTING; Future - CORONAVIRUS COVID-19 TESTING Nausea - proMETHazine 25 mg tablet; Take 1 tablet by mouth every 6 (six) hours as needed for Nausea and Vomiting (N/V). Dispense: 30 tablet; Refill: 0 Loose stools - Bismuth Subsalicylate (PEPTO-BISMOL) 262 mg tablet; Take 1 tablet by mouth 4 (four) times daily asneeded (diarrhea). Dispense: 30 tablet; Refill: 1 Preventive Care: Medication reconciliation, patient education and anticipatory guidance completed. All questions and concerns addressed. AVS given, handout on Dehydration and Headache provided. Return if symptoms worsen or fail to improve. Follow up with PCP as scheduled . Josr Chaparro MD, MPH, [facility] Shirt Line Operator, Department of Family Medicine [facility] [address] [place] [address] [address] [place] [id number] Office: 08/04/2019 3:56 PM documented in this encounter Plan of Treatment Name Type Priority Associated Diagnoses Order S chedule CORONAVIRUS COVID-19 LAB Routine Loss of tas te Expected: 08/04/2019, TESTING Nausea Expires: 2020 Health Maintenance Due Date Last Done Comments [...] Results Not on filedocumented in this encounter Visit Diagnoses Diagnosis Migraine equivalent - Primary Variants of migraine, not elsewhere clas sified, without mention of intractable migraine without mention of status migra inosus Loss of taste Disturbances of sensation of smell and t aste Nausea Nausea alone Cough Dehydration Loose stools Abnormal feces documented in this encounter
--- OUTSIDE RECORDS SUMMARY | 2019-08-18 17:33 | XMS REPORT | Summary of Care ---
:1970 Author Organization [facility] - [facility] Address [address] [place] [address] Care Team Providers Name Role Phone Fahad Curran Primary Care Provider Reason for Visit Reason Comments Results Encounter Details Date Type Department Care Team Description 08/06/2019 Telephone [facility] Jinny Box RN Results [address] [phone] [place] [address] Allergies Active Allergy Reactions Severity Noted Date Comments Loratadine Palpitations 04/22/2015 Prochlorperazine Edisylate Other - See comments 2015 seizures Meperidine Hcl Rash 04/22/2015 Bbyjvbjcn-Emfgof-Gfssdful-Scop Anaphylaxis 04/22/2015 Morphine Rash 04/22/2015 Mushroom Hives [...] mouth daily. butorphanol (STADOL) 10 Use 1 [place] in 0 Active mg/mL nasal spray each [...]
--- OUTSIDE RECORDS SUMMARY | 2019-08-18 17:33 | XMS REPORT | Summary of Care ---
:1970 Author Organization [facility] - [facility] Address [address] [place] [address] Care Team Providers Name Role Phone Fahad Curran Primary Care Provider Reason for Visit Reason Comments Results Encounter Details Date Type Department Care Team Description 08/05/2019 Telephone [facility] Family Medicine Josr Hernández MD Results - [address] [place] [address] [place] [address] [phone] Allergies Active Allergy Reactions Severity Noted Date Comments Loratadine Palpitations 04/22/2015 Prochlorperazine Edisylate Other - See comments 2015 seizures Meperidine Hcl Rash 04/22/2015 Scyqvofen-Sfibox-Dywjfdho-Scop Anaphylaxis 04/22/2015 Morphine Rash 04/22/2015 Mushroom Hives 03/28/2016 documented as of this encounter (statuses as of 08/05/2019) Medications Medication Sig Dispensed Refills Start Date [...] mouth daily. 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
--- OUTSIDE RECORDS SUMMARY | 2019-08-18 17:33 | XMS REPORT | Summary of Care ---
:1970 Author Organization [facility] - [facility] Address [address] [place] [address] Care Team Providers Name Role Phone Fahad Curran Primary Care Provider Reason for Visit Reason Comments Results Encounter Details Date Type Department Care Team Description 08/05/2019 Telephone ACCESS CENTER Jinny Box RN Results [address] [phone] [place] [address] Allergies Active Allergy Reactions Severity Noted Date Comments Loratadine Palpitations 04/22/2015 Prochlorperazine Edisylate Other - See comments 2015 seizures Meperidine Hcl Rash 04/22/2015 Eodsqdhtv-Nplmfr-Szhmsgfn-Scop Anaphylaxis 04/22/2015 Morphine Rash 04/22/2015 Mushroom Hives [...] mouth daily. butorphanol (STADOL) 10 Use 1 [place] in 0 Active mg/mL nasal spray each [...]
--- OUTSIDE RECORDS SUMMARY | 2019-08-18 17:33 | XMS REPORT | Summary of Care ---
:1970 Author Organization [facility] - [facility] Address [address] [place] [address] Care Team Providers Name Role Phone Fahad Curran Primary Care Provider Reason for Visit Reason Comments Results Encounter Details Date Type Department Care Team Description 08/05/2019 Telephone [facility] Family Medicine Josr Hernández MD Results - [address] [place] [address] [place] [address] [phone] Allergies Active Allergy Reactions Severity Noted Date Comments Loratadine Palpitations 04/22/2015 Prochlorperazine Edisylate Other - See comments 2015 seizures Meperidine Hcl Rash 04/22/2015 Ssznytxmc-Leuynd-Njstxppc-Scop Anaphylaxis 04/22/2015 Morphine Rash 04/22/2015 Mushroom Hives [...] mouth daily. butorphanol (STADOL) 10 Use 1 [place] in 0 Active mg/mL nasal spray each [...]
--- OUTSIDE RECORDS SUMMARY | 2019-08-18 17:33 | XMS REPORT | Clinical Summary ---
:1970 Author Organization [facility] Address [address] [place] [address] Care Team Providers Name Role Phone Fahad Curran MD Primary Care Provider Allergies Active Allergy Reactions Severity Noted Date Comments Loratadine-Pseudoephedrine Other (See Comments) 2017 hyperactivity Prochlorperazine Other (See Comments) 08/28/2017 Sei [place] Meperidine Rash Low 08/28/2017 Jguhypnst-Lqclaf-Iwolopcq-Scop Itching, Rash Low 8 Morphine Rash Low 08/28/2017 Medications Medication Sig Dispensed Refills Start Date End Date Status traMADol (ULTRAM) 50 Take 50 mg by 0 Active mg tablet mouth 2 (two) times daily. butorphanol (STADOL) 1 spray by 0 Active 10 mg/mL nasal spray Nasal route every 4 (four) hours as needed for Pain. amitriptyline Take 10 mg by 0 Ac tive (ELAVIL) 10 MG tablet mouth nightly. tiZANidine (ZANAFLEX) Take 4 mg by 0 Active 2 MG tablet mouth every 6 (six) hours as needed. aspirin 81 MG Take 1 tablet 30 tablet 11 09/02/2017 09/02/2018 chewable tablet (81 mg total) by mouth daily. atorvastatin Take 1 tablet 30 tablet 09/01/2017 09/01/2018 E xpired (LIPITOR) 20 MG (20 mg total) tablet by mouth nightly. gabapentin Take 1 capsule 90 capsule 09/01/2017 09/01/2018 E xpired (NEURONTIN) 300 MG (300 mg total) capsule [...] Not on file Results Not on fileafter 08/17/2018 Insurance Payer Benefit Plan / Subscriber ID Type Phone Address Group BLUE CROSS/BLUE BCBS PPO POS EPO xxxxxxxxxxxx PPO [phone] [address] [place] [address] (Home) [place] [address] Advance Directives For more information, please contact:[place] [address] [address] [place], [place] [phone] Code Status Date Activated Date Inactivated Comments Full Code 08/28/2017 9:21 PM 09/01/2017 8:22 PM This code status was determined by: Patient
[2019-08-18] MEDS ORDERED: ONDANSETRON 4 MG/2 ML VIAL ONE (18:20)
[2019-08-18] MEDS ORDERED: FENTANYL CITR 100 MCG/2 ML ONE (18:20)
[2019-08-18] MEDS ORDERED: NA CHLORIDE 0.9% 1,000 ML ONE (18:20)
[2019-08-18] MEDS ORDERED: PROMETHAZINE INJ 25 MG/ML AMP ONE (18:51)
[2019-08-18] MEDS ORDERED: HYDROMORPHONE HCL 1 MG/ML INJ ONE ×2 (18:54→19:38)
[2019-08-18 19:33] LABS: Urine Blood NEGATIVE (NEG); Urine Glucose 2+ (NEG); Urine Protein 2+ (NEG); Urine Specific Gravity 1.015 (1.005-1.030); Urine pH 5.5 (5.0-7.0)
[2019-08-18 19:39] LABS: ALT/SGPT 27 U/L (12-78); AST/SGOT 15 U/L (15-37); Albumin 3.4 g/dL (3.4-5.0); Alkaline Phosphatase 81 U/L (45-117); BUN Blood Urea Nitrogen 12 mg/dL (7-18); Bicarbonate 22 mmol/L (21-32); Bilirubin Direct < 0.1 mg/dL (0-0.2); Bilirubin Total 0.4 mg/dL (0.2-1.0); Glucose Level 382 mg/dL (74-106); Lipase 155 U/L (73-393); Protein, Total 7.7 g/dL (6.4-8.2); Sodium Level 139 mmol/L (136-145)
[2019-08-18 19:41] LABS: Basophils % 0.8 % (0-1.3); Hematocrit 41.1 % (36.0-45.0); RBC Red Blood Cell Count 5.24 M/uL (3.86-4.86)
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
--- NOTE | 2019-08-18 21:19 | ER ---
Nurse's Notes [facility] Name: Elly Clarke Age: 49 yrs Sex: Female : 1970 Arrival Date: 08/18/2019 Time: 17:02 Bed 4 Private MD: Diagnosis: Abdominal and pelvic pain Presentation: 08/17 17:33 Chief complaint: Patient states: RLQ pain since around July 29, 2019 N/V/D. Pt reports jl7 seeing Dr. Curran today and Dr. Curran read the CT report that was done and the report read "The appendix is normal." Pt states "I had my appendix out when I was 11.". Coronavirus screen: Proceed with normal triage. Patient denies a cough. Patient denies shortness of breath or difficulty breathing. Patient denies measured and/or subjective temperature greater than 100.4F prior to today's visit. Patient denies travel on a cruise ship or to a country the [facility] currently lists as an affected area. Patient denies contact with known and/or suspected case of COVID-19. Ebola Screen: No symptoms or risks identified at this time. Initial Sepsis Screen: Does the patient meet any 2 criteria? No. Patient's initial sepsis screen is negative. Does the patient have a suspected source of infection? No. Patient's initial sepsis screen is negative. Risk Assessment: Do you want to hurt yourself or someone else? Patient reports no desire to harm self or others. Onset of symptoms was July 29, 2019. Care prior to arrival: None. 17:33 Method Of Arrival: Wheelchair [facility] 17:33 Acuity: HANNAH 3 jl7 Triage Assessment: 17:37 General: Appears in no apparent distress. uncomfortable, ill, Behavior is cooperative, jl7 anxious. Pain: Complains of pain in right lower quadrant Pain currently is 8 out of 10 on a pain scale. GI: Reports diarrhea, nausea, vomiting. [employer]: 17:37 LMP N/A - Hysterectomy jl7 Historical: - Allergies: 17:37 Claritin (insomnia); jl7 17:37 Compazine (Seizures); jl7 17:37 Demerol (HEART RACING); jl7 17:37 (Hives); jl7 17:37 Morphine (RACING HEART); jl7 - Home Meds: 17:37 Lantus 100 unit/mL Sub-Q soln 60 unit twice a day [Active]; metformin 500 mg Oral tab 1 jl7 tab 2 times per day [Active]; tizanidine 2 mg Oral cap 2 caps twice a day [Active]; tramadol 50 mg Oral tab 1 tab three times a day [Active]; - PMHx: 17:37 Arthritis; Chrohns; Chronic pain; Diabetes - NIDDM; Dramatic migraine events; jl7 Gastroparesis; High Cholesterol; Hypertension; Migraines; Pancreatitis; spinal stenosis; - PSHx: 17:37 Hysterectomy; Knee surgery; Appendectomy; Cholecystectomy; jl7 - Immunization history:: Adult Immunizations up to date. - Social history:: Smoking status: Patient denies any tobacco usage or history of. Screenin:00 Abuse screen: Denies threats or abuse. Denies injuries from another. Nutritional bp screening: No deficits noted. Tuberculosis screening: No symptoms or risk factors identified. Fall Risk None identified. Assessment: 18:00 General: SEE TRIAGE NOTE. GI: Abdomen is non-distended. bp 18:50 Reassessment: PHLEBOTOMY CONTACTED FOR LAB DRAW. bp 19:06 Reassessment: PHLEBOTOMY AT B/S FOR REDRAW. bp 19:10 Reassessment: Patient appears in no apparent distress at this time. Patient and/or jb4 family updated on plan of care and expected duration. Pain level reassessed. Patient is alert, oriented x 3, equal unlabored respirations, skin warm/dry/pink. 19:30 Reassessment: Pt refusing to go to CT unless she receives pain medication. Reports jb4 prior dose of medication did not help at all. Provider notified, see MAR for orders. 20:30 Reassessment: Patient appears in no apparent distress at this time. Patient and/or jb4 family updated on plan of care and expected duration. Pain level reassessed. Patient is alert, oriented x 3, equal unlabored respirations, skin warm/dry/pink. Pt reports pain has decreased to 5/10 Patient states feeling better. 21:29 Reassessment: Patient appears in no apparent distress at this time. Patient and/or jb4 family updated on plan of care and expected duration. Pain level reassessed. Patient is alert, oriented x 3, equal unlabored respirations, skin warm/dry/pink. PT reports pain is still present but has decreased to a 4/10. Pt verbalized understanding of d/c and follow up instructions. Denies questions or concerns. Ambulated out of ED with steady gait. Patient states feeling better. Vital Signs: 17:33 BP 147 / 104; Pulse 120; Resp 21 S; Temp 98.6(O); Pulse Ox 97% on R/A; Weight 92.99 kg jl7 (R); Height 5 ft. 7 in. (170.18 cm) (R); Pain 8/10; 18:49 BP 155 / 111; Pulse 112; Resp 16; Pulse Ox 98% ; bp 19:46 BP 168 / 92; Pulse 102; Resp 18; Pulse Ox 100% on R/A; mg2 20:20 BP 150 / 87; Pulse 100; Resp 16; Pulse Ox 97% on R/A; jb4 21:30 BP 156 / 102; Pulse 96; Resp 16; Pulse Ox 98% on R/A; Pain 4/10; jb4 17:33 Body Mass Index 32.11 (92.99 kg, 170.18 cm) jl7 ED Course: 17:02 Patient arrived in ED. as 17:36 Triage completed. jl7 17:37 Arm band placed on right wrist. jl7 17:44 Lj Love PA is PHCP. jr8 17:44 George Stern MD is Attending Physician. jr8 17:54 Real Muro, NAT is Primary Nurse. bp 18:00 Patient has correct armband on for positive identification. Bed in low position. Call bp light in reach. Side rails up X2. 18:10 Inserted saline lock: 20 gauge in left antecubital area, using aseptic technique. Blood bp collected. 20:07 CT Abd/Pelvis - IV Contrast Only In Process Unspecified. EDMS 21:17 Gunner Ruiz MD is Referral Physician. jr8 Administered Medications: 18:10 Drug: NS 0.9% 1000 ml Route: IV; Rate: 1000 ml; Site: left antecubital; bp 18:10 Drug: Zofran (Ondansetron) 4 mg Route: IVP; Site: left antecubital; bp 18:48 Follow up: Response: Nausea is decreased bp 18:10 Drug: fentaNYL (PF) 50 mcg Route: IVP; Site: left antecubital; bp 18:48 Follow up: Response: No adverse reaction; Pain is decreased bp 18:45 Drug: Promethazine 12.5 mg Route: IVP; Site: left antecubital; bp 18:49 Follow up: Response: Nausea is decreased bp 18:45 Drug: Dilaudid 1 mg Route: IVP; Site: left antecubital; bp 20:23 Follow up: Response: No adverse reaction mg2 19:37 Drug: Dilaudid 1 mg {Note: Rass score 0.} Route: IVP; Site: left antecubital; jb4 20:23 Follow up: Response: No adverse reaction mg2 Outcome: 21:18 Discharge ordered by . сергей 21:30 Patient left the ED. sg Signatures: Dispatcher [employer] EDMS Facundo Martinez RN RN Lashell Benitez Josh, PA PA jr8 Yonis Cameron RN RN jb4 Nighat Peraza RN RN jl7 Real Muro RN RN bp Kong Brock RN RN mg2
--- NOTE | 2019-08-18 21:19 | EDPHYS ---
Physician Documentation [facility] Name: Elly Clarke Age: 49 yrs Sex: Female : 1970 Arrival Date: 08/18/2019 Time: 17:02 Bed 4 Private MD: ED Physician George Stern HPI: 08/17 19:15 This 49 yrs old Female presents to ER via Wheelchair with complaints of jr8 Vomiting, Abdominal Pain. 19:15 The patient presents to the emergency department with nausea, vomiting, abdominal pain. jr8 Onset: The symptoms/episode began/occurred gradually, 2 week(s) ago, and became worse and became persistent. Possible causes: unknown. The symptoms are aggravated by nothing. The symptoms are alleviated by nothing. Associated signs and symptoms: The patient has no apparent associated signs or symptoms. Severity of symptoms: At their worst the symptoms were moderate in the emergency department the symptoms are unchanged. The patient has not experienced similar symptoms in the past. The patient has been recently seen by a physician:. 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 CHECKER: 17:37 LMP N/A - Hysterectomy jl7 Historical: - Allergies: 17:37 Claritin (insomnia); jl7 17:37 Compazine (Seizures); jl7 17:37 Demerol (HEART RACING); jl7 17:37 (Hives); jl7 17:37 Morphine (RACING HEART); jl7 - Home Meds: 17:37 Lantus 100 unit/mL Sub-Q soln 60 unit twice a day [Active]; metformin 500 mg Oral tab 1 jl7 tab 2 times per day [Active]; tizanidine 2 mg Oral cap 2 caps twice a day [Active]; tramadol 50 mg Oral tab 1 tab three times a day [Active]; - PMHx: 17:37 Arthritis; Chrohns; Chronic pain; Diabetes - NIDDM; Dramatic migraine events; jl7 Gastroparesis; High Cholesterol; Hypertension; Migraines; Pancreatitis; spinal stenosis; - PSHx: 17:37 Hysterectomy; Knee surgery; Appendectomy; Cholecystectomy; jl7 - Immunization history:: Adult Immunizations up to date. - Social history:: Smoking status: Patient denies any tobacco usage or history of. ROS: 19:15 Eyes: Negative for injury, pain, redness, and discharge, ENT: Negative for injury, jr8 pain, and discharge, Neck: Negative for injury, pain, and swelling, Cardiovascular: Negative for chest pain, palpitations, and edema, Respiratory: Negative for shortness of breath, cough, wheezing, and pleuritic chest pain, Back: Negative for injury and pain, MS/Extremity: Negative for injury and deformity, Skin: Negative for injury, rash, and discoloration, Neuro: Negative for headache, weakness, numbness, tingling, and seizure. 19:15 Abdomen/GI: Positive for abdominal pain, nausea and vomiting, Negative for diarrhea, constipation, abdominal cramps, abdominal distension. Exam: 19:15 Eyes: Pupils equal round and reactive to light, extra-ocular motions intact. Lids and jr8 lashes normal. Conjunctiva and sclera are non-icteric and not injected. Cornea within normal limits. Periorbital areas with no swelling, redness, or edema. ENT: Nares patent. No nasal discharge, no septal abnormalities noted. Tympanic membranes are normal and external auditory canals are clear. Oropharynx with no redness, swelling, or masses, exudates, or evidence of obstruction, uvula midline. Mucous membranes moist. Neck: Trachea midline, no thyromegaly or masses palpated, and no cervical lymphadenopathy. Supple, full range of motion without nuchal rigidity, or vertebral point tenderness. No Meningismus. Cardiovascular: Regular rate and rhythm with a normal S1 and S2. No gallops, murmurs, or rubs. Normal PMI, no JVD. No pulse deficits. Respiratory: Lungs have equal breath sounds bilaterally, clear to auscultation and percussion. No rales, rhonchi or wheezes noted. No increased work of breathing, no retractions or nasal flaring. Back: No spinal tenderness. No costovertebral tenderness. Full range of motion. Skin: Warm, dry with normal turgor. Normal color with no rashes, no lesions, and no evidence of cellulitis. MS/ Extremity: Pulses equal, no cyanosis. Neurovascular intact. Full, normal range of motion. Neuro: Awake and alert, GCS 15, oriented to person, place, time, and situation. Cranial nerves II-XII grossly intact. Motor strength 5/5 in all extremities. Sensory grossly intact. Cerebellar exam normal. Normal gait. 19:15 Abdomen/GI: Inspection: obese Bowel sounds: active, all quadrants, Palpation: soft, in all quadrants, moderate abdominal tenderness, in the right lower quadrant, mass, is not appreciated, rebound tenderness, is not appreciated, voluntary guarding, is elicited in the right lower quadrant, involuntary guarding, is not appreciated, no appreciated organomegaly, Indicators: McBurney's point is not tender, Turcios's sign is negative, Rovsing's sign is negative, Liver: tenderness, is not appreciated. Vital Signs: 17:33 BP 147 / 104; Pulse 120; Resp 21 S; Temp 98.6(O); Pulse Ox 97% on R/A; Weight 92.99 kg jl7 (R); Height 5 ft. 7 in. (170.18 cm) (R); Pain 8/10; 18:49 BP 155 / 111; Pulse 112; Resp 16; Pulse Ox 98% ; bp 19:46 BP 168 / 92; Pulse 102; Resp 18; Pulse Ox 100% on R/A; mg2 20:20 BP 150 / 87; Pulse 100; Resp 16; Pulse Ox 97% on R/A; jb4 21:30 BP 156 / 102; Pulse 96; Resp 16; Pulse Ox 98% on R/A; Pain 4/10; jb4 17:33 Body Mass Index 32.11 (92.99 kg, 170.18 cm) jl7 MDM: 17:44 Patient medically screened. jr8 21:15 Data reviewed: vital signs, nurses notes, lab test result(s), radiologic studies, CT jr8 scan. Data interpreted: Pulse oximetry: on room air is 97 %. Interpretation: normal. 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 Response to treatment: the patient's symptoms have markedly improved after treatment. Special discussion: Based on the patient's Hx, exam, and Dx evaluation, there is no indication for emergent surgery or inpatient Tx. It is understood by the patient/guardian that if the Sx's persist or worsen they need to return immediately for re-evaluation. 08/17 17:44 Order name: Basic Metabolic Panel; Complete Time: 19:48 08/17 17:44 Order name: CBC with Diff; Complete Time: 19:48 08/17 17:44 Order name: Hepatic Function; Complete Time: 19:48 08/17 17:44 Order name: Lipase; Complete Time: 19:48 08/17 18:51 Order name: Urine Dipstick--Ancillary (enter results); Complete Time: 19:48 tt3 08/17 19:03 Order name: CT Abd/Pelvis - IV Contrast Only; Complete Time: 21:14 08/17 17:44 Order name: IV Saline Lock; Complete Time: 18:21 08/17 17:44 Order name: Labs collected and sent; Complete Time: 18:20 08/17 17:44 Order name: Urine Dipstick-Ancillary (obtain specimen); Complete Time: 18:48 08/17 18:22 Order name: Labs - recollect needed: light green and lavender need recollected.; tt3 Complete Time: 19:05 Administered Medications: 18:10 Drug: NS 0.9% 1000 ml Route: IV; Rate: 1000 ml; Site: left antecubital; bp 18:10 Drug: Zofran (Ondansetron) 4 mg Route: IVP; Site: left antecubital; bp 18:48 Follow up: Response: Nausea is decreased bp 18:10 Drug: fentaNYL (PF) 50 mcg Route: IVP; Site: left antecubital; bp 18:48 Follow up: Response: No adverse reaction; Pain is decreased bp 18:45 Drug: Promethazine 12.5 mg Route: IVP; Site: left antecubital; bp 18:49 Follow up: Response: Nausea is decreased bp 18:45 Drug: Dilaudid 1 mg Route: IVP; Site: left antecubital; bp 20:23 Follow up: Response: No adverse reaction mg2 19:37 Drug: Dilaudid 1 mg {Note: Rass score 0.} Route: IVP; Site: left antecubital; jb4 20:23 Follow up: Response: No adverse reaction mg2 Disposition: 08/18 12:34 Co-signature as Attending Physician, George Stern MD I agree with the assessment and kdr plan of care. Disposition: 08/18/19 21:18 Discharged to Home. Impression: Abdominal and pelvic pain. - Condition is Stable. - Discharge Instructions: Abdominal Pain, Adult. - Medication Reconciliation Form, Thank You Letter, Antibiotic Education, Prescription Opioid Use form. - Follow up: Gunner Ruiz MD; When: 2 - 3 days; Reason: Recheck today's complaints, Continuance of care, Re-evaluation by your physician. - Problem is new. - Symptoms have improved. Signatures: Dispatcher [employer] EDMS Facundo Martinez RN RN sg George Stern MD MD [facility] Lj Love PA PA jr8 Yonis Cameron RN RN jb4 Nighat Peraza RN RN jl7 Real Muro RN RN bp [place] tt3 Kong Brock RN mg2 Corrections: (The following items were deleted from the chart) 08/17 21:30 21:18 08/18/2019 21:18 Discharged to Home. Impression: Abdominal and pelvic pain. sg Condition is Stable. Forms are Medication Reconciliation Form, Thank You Letter, Antibiotic Education, Prescription Opioid Use. Follow up: Gunner Ruiz; When: 2 - 3 days; Reason: Recheck today's complaints, Continuance of care, Re-evaluation by your physician. Problem is new. Symptoms have improved. jr8
[2019-08-18 21:52] VITALS: TEMP 98.6
[2019-08-18 21:58] VITALS: BP 156/102; O2SAT 98
== END 2019-08-18 21:30 | disposition home or self-care (01) ==
LOC: ER 17:00
DX: R10.9 Unspecified abdominal pain (principal); R10.2 Pelvic and perineal pain; G89.29 Other chronic pain; E11.9 Type 2 diabetes mellitus without complications; Z88.6 Allergy status to analgesic agent; Z88.8 Allergy status to other drugs, medicaments and biological substances; Z79.4 Long term (current) use of insulin
CPT/HCPCS: 85025; 80048; 36415; 80076; 81003; 83690; 74177; 96375; 96374; 99284; Q9967; J2550; J3010; J1170 ×2; J7030; J2405

== ENCOUNTER 2019-09-17 19:43 | Emergency (ER) | payer OTHER ==
--- OUTSIDE RECORDS SUMMARY | 2019-09-17 19:46 | XMS REPORT | Clinical Summary ---
:1970 [facility] Address [address] [place] [address] Care Team Providers Name Role Phone Fahad Curran MD Primary Care Provider Allergies Active Allergy Reactions Severity Noted Date Comments Loratadine-Pseudoephedrine Other (See Comments) 2017 hyperactivity Prochlorperazine Other (See Comments) 08/28/2017 i chelsea Meperidine Rash Low 08/28/2017 Mrlffszcv-Cvsxok-Gaebpdek-Scop Itching, Rash Low 8 Morphine Rash Low 08/28/2017 Medications Medication Sig Dispensed Refills Start Date End Date Status traMADol (ULTRAM) 50 mg Take 50 mg by 0 Active tablet mouth 2 (two) times daily. butorphanol (STADOL) 10 1 spray by Nasal 0 Active mg/mL nasal spray route every 4 (four) hours as needed for Pain. amitriptyline (ELAVIL) Take 10 mg by 0 Active 10 MG tablet mouth nightly. tiZANidine (ZANAFLEX) 2 Take 4 mg by 0 Active MG tablet mouth every 6 (six) hours as needed. Active Problems Problem Noted Date Left sided [...] Not on file Results Not on fileafter 09/16/2018 Insurance Payer Benefit Plan / Subscriber ID Type Phone Address Group BLUE CROSS/BLUE BCBS PPO POS EPO xxxxxxxxxxxx PPO [phone] [address] [place] [address] Advance Directives For more information, please contact:[place] [id number] [facility] Services[facility] [address] [place], [place] [phone] Code Status Date Activated Date Inactivated Comments Full Code 08/28/2017 9:21 PM 09/01/2017 8:22 PM This code status was determined by: Patient
--- OUTSIDE RECORDS SUMMARY | 2019-09-17 19:47 | XMS REPORT | Continuity of Care Document ---
:1970 Author Organization [facility] t Address [address] [place] [address] Care Team Providers Name Role Phone Fahad Curran MD Primary Care Physician Olinda SOUZA S Attending Clinician Laurel JOHNS Attending Clinician Unavailable Isauro JOHNS Attending Clinician Unavailable BRENNEN Attending Clinician Unavailable BRENNEN Admitting Clinician Unavailable Problems Condition Condition Condition Status Onset Resolution Last Treating Co mments Source Name Details Category Date Date Treatment Clinician Date Left sided Left sided Disease Active [facility] numbness [facility] 08-29 [facility] - [facility]: Medical 00 [facility] Neurologic Neurologic Disease Active [facility] 08-28 [facility] - symptoms symptoms 00:00: Medica l 00 Center Allergies, Adverse Reactions, Alerts Allergy Allergy Status Severity Reaction(s) Onset Inactive Treating Comm ents Source Name Type Date Date Clinician Baldo Shorti Active Other (See hyperacti [facility] ne-Pseud ty to Comments) 08-28 [facility] - oephedri adverse 00:00: Medical ne reaction 00 [facility] Procpricilla Shorti Active Other (See Seizures [facility] perazine ty to Comments) 08-28 [facility] - adverse 00:00: Medical reaction 00 Center s Meperidi Propensi Active Rash [facility] ne ty to 08-28 [facility] - adverse 00:00: Medical reaction 00 [facility] s Phenobar Drug Active Itching, [facility] b-Hyoscy Allergy Rash 08-28 [facility] - -Atropin 00:00: Medical e-Scop 00 [facility] Morphine Propensi Active Rash [facility] St ty to 08-28 [facility] - adverse 00:00: Medical reaction 00 [facility] s Social History Social Habit Start Date Stop Date Quantity Comments Source Sex Assigned At [facility] Smoking Status Start Date Stop Date [facility] Ordered Filled Start Stop Current Ordering Indication Dosage Frequency Signature Comments Components Source Medication Medication Date Date Medication? Clinician (SIG) Name Name butorphanol Yes 1{spray [address] [facility] (STADOL) 10 08-28 } Nasal [facility] - mg/mL nasal 22:25: route Medic al spray 24 every 4 Center (four) hours as needed for Pain. amitriptyli Yes 10mg QD Take [address] [facility] ne (ELAVIL) 08-28 by mouth [facility] - 10 MG 22:25: nightly. Medical tablet 24 Center tiZANidine Yes 4mg Take [address] (ZANAFLEX) 08-28 by mouth [facility] - 2 MG tablet 22:25: every 6 Med ical 24 (six) Center hours as needed. traMADol Yes 50mg Q.5D Take [address] [facility] (ULTRAM) 50 08-28 by mouth 2 Yu kes - mg tablet 22:25: (two) Medical 23 times Center daily. Procedures This patient has no known procedures. Encounters Start End Encounter Admission Attending Care Care Encounter Source Date/Time Date/Time Type Type Clinicians Facility Department ID 2019-08-21 2019-08-22 [facility] [id number] 23:48:04 02:26:00 Jose Cruz Suarez [id number] [place] [id number] [place] [id number] 2019-08-06 2019-08-06 Telephone IQRA Barragan [id number] 00:00:00 00:00:00 Apoorva [facility] [id number] [facility] [id number] 2019-08-06 2019-08-06 Telephone IQRA Box [id number] 00:00:00 00:00:00 Jinny [facility] [id number] [facility] [id number] 2019-08-05 2019-08-05 Telephone IQRA Box [id number] 00:00:00 00:00:00 Jinny JENKINS [id number] [facility] [id number] Results Test Description Test Time Test Comments Results Result Comments Source POCT-GLUCOSE METER 2017-09-01 17:07:00 Test Item Value Reference Range Interpretation Comme nts POC-GLUCOSE METER ([facility]) (test 298 mg/dL 70-110 H TESTED AT [address] code = 1538) [facility] 7[address] 0 POCT-GLUCOSE [id number] 12:11:00 Test Item Value Reference Range Interpretation Comments POC-GLUCOSE METER 331 mg/dL 70-110 H Notified Rina Low MD/TESTED ([facility]) (test code = AT [address] 1538) [facility] 7703 0 POCT-GLUCOSE [id number] 10:55:00 Test Item Value Reference Range Interpretation Comments POC-GLUCOSE METER 365 mg/dL 70-110 H TESTED AT [place] [address] ([facility]) (test code = ELIZABETH Flynn [facility] 1538) [id number] POCT-GLUCOSE [id number] 08:44:00 Test Item Value Reference Range Interpretation Comments POC-GLUCOSE METER 291 mg/dL 70-110 H TESTED AT [place] [address] ([facility]) (test code = ELIZABETH Flynn [facility] 1538) [address] LIPID [id number] 05:56:00 Test Item Value Reference Range Interpretation Comments TRIGLYCERIDES ([facility]) (test code = 279 mg/dL 540) CHOLESTEROL ([facility]) (test code = 119 mg/dL 631) HDL CHOLESTEROL ([facility]) (test code 22 mg/dL = 976) LDL CHOLESTEROL CALCULATED ([facility]) 41 mg/dL (test code = 633) Triglyceride Reference Range: Low Risk <150 Borderline 150-199 High Risk 200-499 Very High Risk >=500Cholesterol Reference Range: Low Risk <200 Borderline 200-239 High Risk >240HDL Cholesterol Reference Range: Low Risk >=60 High Risk <40LDL Cholesterol Reference Range: Optimal <100 Near Optimal 100-129 Borderline 130-159 High 160-189 Very High >=190POCT-GLUCOSE [id number] 21:50:00 Test Item Value Reference Range Interpretation Comments POC-GLUCOSE METER 318 mg/dL 70-110 H TESTED AT [place] [address] ([facility]) (test code = ELIZABETH Flynn [place] 1538) [address] POCT-GLUCOSE [id number] 18:04:00 Test Item Value Reference Range Interpretation Comments POC-GLUCOSE METER 238 mg/dL 70-110 H TESTED AT [place] [address] ([facility]) (test code = ELIZABETH Flynn [place] 1538) [address] POCT-GLUCOSE [id number] 12:22:00 Test Item Value Reference Range Interpretation Comments POC-GLUCOSE METER 290 mg/dL 70-110 H TESTED AT [place] [address] ([facility]) (test code = ELIZABETH Flynn [place] 1538) [address] POCT-GLUCOSE [id number] 09:20:00 Test Item Value Reference Range Interpretation Comments POC-GLUCOSE METER 293 mg/dL 70-110 H TESTED AT [place] [address] ([facility]) (test code = ELIZABETH Flynn [place] 1538) [address] POCT-GLUCOSE [id number] 21:00:00 Test Item Value Reference Range Interpretation Comments POC-GLUCOSE METER 225 mg/dL 70-110 H TESTED AT [place] [address] ([facility]) (test code = ELIZABETH Flynn [place] 1538) [address] CT, CAROTID, [id number] 18:01:00FINAL REPORT CT angiogram of the upper [...] Petersen Verified Date/Time: 08/30/2017 18:01:31 Reading Location: [address] Neuro Reading Room , CTANGIO [id number] 18:01:00FINAL REPORT CT angiogram of the upper [...] [place] Verified Date/Time: 08/30/2017 18:01:31 Reading Location: [address] Neuro Reading Room -GLUCOSE [id number] 17:21:00 Test Item Value Reference Range Interpretation Comments POC-GLUCOSE METER 256 mg/dL 70-[address] [facility] 6720 (BEAKER) (test code = ELIZABETH Flynn [facility] 1538) [address] POCT-GLUCOSE [id number] 12:00:00 Test Item Value Reference Range Interpretation Comments POC-GLUCOSE METER 289 mg/dL 70-[address] [facility] 6720 (BEAKER) (test code = ELIZABETH Flynn [facility] 1538) [address] BASIC METABOLIC [id number] 10:12:00 Test Item Value Reference Range Interpretation [...] NOT APPLICABLE FOR DIALYSIS PATIEN TS. POCT-GLUCOSE [id number] 08:42:00 Test Item Value Reference Range Interpretation Comments POC-GLUCOSE METER 259 mg/dL 70-[address] [facility] 6720 (BEAKER) (test code = ELIZABETH [place] 1538) [address] TROPONIN [id number] 06:14:00 Test Item Value Reference Range Interpretation [...] 0-1 PERCENT (BEAKER) (test code = 2801) RAD, CHEST, 1 VIEW, NON [id number] 04:23:00Reason for exam:->chest painShould this be performed at the bedside?->YesFINAL REPORT Comparison examination: None No pneumothorax, focal pulmonary co nsolidation, or significant pleural effusion. Normal cardiomediastinal contours. Normal skeleton and soft tissues. Impression: No acute abnormality. Signed: Ervin Jenkins Verified Date/Time: 08/30/2017 04:23:04 Reading Location: [address] Reading Room POCT-GLUCOSE [id number] 21:18:00 Test Item Value Reference Range Interpretation Comments POC-GLUCOSE METER 151 mg/dL 70-[address] [facility] 6720 ([facility]) (test code = ELIZABETH Flynn [place] 1538) [address] POCT-GLUCOSE [id number] 17:59:00 Test Item Value Reference Range Interpretation Comments POC-GLUCOSE METER 146 mg/dL 70-[address] [facility] 6720 ([facility]) (test code = ELIZABETH Flynn [place] 1538) [address] HEMOGLOBIN [id number] 15:56:00 Test Item Value Reference Range Interpretation Comments HEMOGLOBIN A1C (BEAKER) (test code = 13.7 % 4.3-6.1 H 368) CT, BRAIN, WITHOUT [id number] 14:52:00FINAL REPORT CT head without contrast. Comparisons: [...] Petersen Verified Date/Time: 08/29/2017 14:52:09 Reading Location: [address] Neuro Reading Room POCT-GLUCOSE [id number] 14:17:00 Test Item Value Reference Range Interpretation Comments POC-GLUCOSE METER 423 mg/dL 70-110 Notified Rina Low MD/TESTED (JESSICA) (test code = AT [facility] 67[address] [facility] 1538) [facility] 7[address] 0 VITAMIN [id number] 06:48:00 Test Item Value Reference Range Interpretation Comments VITAMIN B12 (JESSICA) (test code = 300 pg/mL 213-816 774) TSH/FREE T4 IF [id number] 06:48:00 Test Item Value Reference Range Interpretation Comments THYROID STIMULATING HORMONE 1.55 uIU/mL 0.35-4.94 (JESSICA) (test code = 772) CBC W/PLT COUNT & AUTO [id number] 05:10:00 Test Item Value Reference Range Interpretation Comments [facility] BLOOD CE[facility] 8.6 K/ L 3.5-10.5 (test code = 775) RED BLOOD CELL COUNT ([facility]) 4.62 M/ L 3.93-5.22 (test code = [...] (BEAKER) (test code = 2801) URINALYSIS W/ [id number] 23:32:00 Test Item Value Reference Range Interpretation [...] Occasional SOURCE(BEAKER) (test code = 2795) TROPONIN [id number] 23:12:00 Test Item Value Reference Range Interpretation [...] acute neurological disease, and persistent tachyarrhythmia.BASIC METABOLIC [id number] 23:05:00 Test Item Value Reference Range Interpretation [...] NOT APPLICABLE FOR DIALYSIS PATIEN TS. POCT-GLUCOSE [id number] 20:49:00 Test Item Value Reference Range Interpretation Comments POC-GLUCOSE METER 376 mg/dL 70-110 H Notified R Devante SOUZA/TESTED (BEAKER) (test code = AT [facility] [address] [address]25) [facility] 7[address] 0
--- OUTSIDE RECORDS SUMMARY | 2019-09-17 19:50 | XMS REPORT | Summary of Care ---
:1970 Author Organization [facility] - [facility] Address [address] [place] [id number] Care Team Providers Name Role Phone Fahad Curran Primary Care Provider Reason for Referral Other (MANFRED) Status Reason Specialty Diagnoses / Referred By Referred To Procedures Contact Contact New Request Diagnoses Chronic abdominal pain Jose Cruz Prakash, Guillermina, Procedures Discharge Follow-up: Specialty Provider AMY RATLIFF; 3-5 Days MD Amy Kelly MD [address] [facility] [address] [id number] [address] [place], [place] Phone: [phone] Phone: Fax: Reason for Visit Reason Comments Abdominal Pain Vomiting Auth/Cert Status Reason Specialty Diagnoses / Referred By Referred To Procedures Contact Contact Emergency Medicine [facility] Em ergency Dept [address] [facility] [place] [address] Fax: Encounter Details Date Type Department Care Team Description 08/21/2019 - Emergency ADC-Emergency Jose Cruz Prakash Chronic abdo neelam pain (Primary Dx); 08/22/2019 Department MD Nica Fever in adult; [address] [place] [address] Dr [address] [facility] Nausea, vomiting and diarrhe a; [place] [address] [id number] Uncontrolled type 2 diabetes mellitus wi th hyperglycemia [phone] [place] [address] [phone] Allergies Active Allergy Reactions Severity Noted Date Comments Loratadine Palpitations 04/22/2015 Prochlorperazine Edisylate Other - See comments 2015 seizures Meperidine Hcl Rash 04/22/2015 Jonhhsrgc-Zjclhz-Sowktnni-Scop Anaphylaxis 04/22/2015 Morphine Rash 04/22/2015 Mushroom Hives 03/28/2016 documented as of this encounter (statuses as of 08/22/2019) Medications Medication Sig Dispensed Refills Start Date [...] mouth daily. butorphanol (STADOL) 10 Use 1 [place] in 0 Active mg/mL nasal spray each [...] as needed for Nausea and Vomiting (N/V). carvediloL 12.5 mg Take 12.5 mg by 0 Active tablet mouth 2 (two) times daily with meals. dicyclomine 20 mg Take 1 tablet by 20 tablet 0 08/22/2019 Active tabletIndications: mouth every 6 Fever in adult (six) hours as needed for Abdominal pain. proMETHazine 25 mg Take 1 tablet by 12 tablet 0 08/22/2019 Active tabletIndications: mouth every 6 Nausea, vomiting and (six) hours as diarrhea needed for Nausea and Vomiting (N/V). dicyclomine 20 mg Take 1 tablet by 20 tablet 0 08/22/2019 Active tabletIndications: mouth every 6 Chronic abdominal pain (six) hours as needed for Abdominal pain. 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 COVID-19 Exposure Response Date Recorded In the last month, have you been in contact with No / Unsure 08/21/2019 11:49 PM CDT someone who was confirmed or suspected to have Coronavirus / COVID-19? documented as of this encounter Last Filed Vital Signs Vital Sign Reading Time Taken Comments Blood Pressure 165/127 08/22/2019 2:00 AM CDT Pulse 99 08/22/2019 2:00 AM CDT Temperature 37.5 C (99.5 F) 08/21/2019 11:58 PM CDT Respiratory Rate 14 08/22/2019 2:00 AM CDT Oxygen Saturation 97% 08/22/2019 2:00 AM CDT Inhaled Oxygen Concentration - - Weight 93 kg (205 lb) 08/21/2019 11:58 PM CDT Height - - Body Mass Index 32.11 08/04/2019 2:47 PM CDT documented in this encounter Discharge Instructions Jose Cruz Mcmullen MD - 08/22/2019 DIAGNOSIS Diagnoses that have been ruled out: None Diagnoses that are still under consideration: None Final diagnoses: Fever in adult Chronic abdominal pain Nausea, vomiting and diarrhea Uncontrolled type 2 diabetes mellitus with hyperglycemia NO LIFE-THREATENING FINDINGS ON TODAY'S EXAM. PROCEDURES IN THE ER TODAY: Orders Placed This Encounter Procedures COVID-19 (ID NOW RAPID TESTING) CBC WITH DIFF COMP. METABOLIC PANEL (34735) LIPASE BLOOD CULTURE SCREEN BLOOD CULTURE SCREEN URINALYSIS CBC WITH DIFFERENTIAL MEDICATIONS ADMINISTERED IN THE ER TODAY AND DISCHARGE MEDICATIONS: Orders Placed This Encounter Medications proMETHazine (PHENERGAN) 25 mg in NaCl 0.9% (NS) 50 mL piggyback FENTanyl PF (SUBLIMAZE (PF)) injection 75 mcg carvediloL 12.5 mg tablet FENTanyl PF (SUBLIMAZE (PF)) injection 50 mcg dicyclomine 20 mg tablet insulin regular human (HUMULIN R) injection 5 Units proMETHazine 25 mg tablet dicyclomine 20 mg tablet FOLLOW-UP RECOMMENDATIONS: RECOMMEND FOLLOW-UP WITH YOUR PRIMARY CARE PROVIDER OR WITH DR RATLIFF GASTROENTEROLOGY SPECIALIST IN 2-5 DAYS, ESPECIALLY IF NO IMPROVEMENT IN SYMPTOMS. MAY FOLLOW-UP WITH A PROVIDER OF YOUR CHOICE, SUCH : 1. A PHYSICIAN OF YOUR CHOICE 2. [facility], . LOCATIONS IN [facility] 3. [facility], [address] [place], [place]; [phone] OR, IF YOU WISH TO FOLLOW-UP WITHIN THE [facility], MAY TRY THESE OPTIONS (CLINIC APPOINTMENTS AVAILABLE ON [id number] BASIS): 1. SCHEDULE AN APPOINTMENT ONLINE AT [facility] 2. OR CALL THE [facility] ACCESS CENTER AT OR 3. OR CALL YOUR [facility] PHYSICIAN'S OFFICE DIRECTLY IF YOU ARE ALREADY AN ESTABLISHED [facility] PATIENT. RETURN TO ER FOR WORSENING OF SYMPTOMS documented in this encounter Plan of Treatment Name Type Priority Associated Diagnoses Date/Ti me BLOOD CULTURE SCREEN LAB STAT Fever in adult 08/21 12:18 AM CDT BLOOD CULTURE SCREEN LAB STAT Fever in adult 08/21 12:18 AM CDT Name Type Priority Associated Diagnoses Order S chedule BLOOD CULTURE SCREEN LAB Routine Fever in adult ONCE for 1 Occurrences starting 2019 until 08/22/2019 BLOOD CULTURE SCREEN LAB Routine Fever in adult ONCE for 1 Occurrences starting 2019 until 08/22/2019 Health Maintenance Due Date Last Done Comments PNEUMOCOCCAL 0-64 YEARS COMBINED 1975 SERIES (1 of 1 - PPSV23) EYE EXAM 1979 LDL-C 1979 URINE MICROALBUMIN 1979 DTaP,Tdap,and Td Vaccines (1 - 02/22/1980 Tdap) FOOT EXAM 1987 PAP SMEAR 1990 Breast Cancer Screening 2009 (MAMMOGRAM) HgA1C 09/26/2016 03/28/2016 COLONOSCOPY 2019 Zoster Recombinant Vaccine 2019 (SHINGRIX) (1 of 2) INFLUENZA VACCINE (Season Ended) 2019 06/01/2016 CREATININE (SERUM) 08/21/2020 08/22/2019, 08/24/2016, 05/31/2016, Additional history exists documented as of this encounter Procedures Procedure Name Priority Date/Time Associated Comments Diagnosis POCT GLUCOSE Routine 08/22/2019 2:05 Results for this (AUTOMATED) AM CDT procedure are i n the results section. CBC WITH DIFFERENTIAL STAT 08/22/2019 12:18 Fever in adult Results for this AM CDT procedure are i n the results section. CBC WITH DIFFERENTIAL STAT 08/22/2019 12:18 Fever in adult Results for this AM CDT procedure are i n the results section. COMP. METABOLIC PANEL STAT 08/22/2019 12:18 Fever in adult Results for this (20218) AM CDT procedure are i n the results section. LIPASE STAT 08/22/2019 12:18 Fever in adult Results f or this AM CDT procedure are i n the results section. URINALYSIS STAT 08/22/2019 12:05 Fever in adult Results f or this AM CDT procedure are i n the results section. COVID-19 (ID NOW STAT 08/22/2019 12:04 Fever in adult Resul ts for this RAPID TESTING) AM CDT procedure are in the results section. ASSIGNMENT OF Routine 08/21/2019 11:32 BENEFITS PM CDT NOTICE OF PRIVACY Routine 08/21/2019 11:32 PRACTICES PM CDT CONSENT/REFUSAL FOR Routine 08/21/2019 11:31 DIAGNOSIS AND PM CDT TREATMENT documented in this encounter Results POCT GLUCOSE (AUTOMATED) (08/22/2019 2:05 AM CDT) Pathologist Sig nature POCT GLU 290 (H) 70 - 110 mg/dL [facility] Specimen Blood Performing Organization Address City/State/Zipcode Phone Number [facility] CLIA: [id number], [address] [place], [place] [address] CBC WITH DIFFERENTIAL (08/22/2019 12:18 AM CDT) Pathologist Sig nature WBC 10.90 4.30 - 11.10 [facility] 10*3/L [facility] RBC 5.17 3.93 - 5.25 [facility] 10*6/L [facility] HGB 13.6 11.6 - 15.0 [facility] g/dL [facility] HCT 40.8 35.7 - 45.2 % [facility] MCV 78.9 (L) 80.6 - 95.5 fL [facility] MCH 26.3 25.9 - 32.8 pg [facility] MCHC 33.3 31.6 - 35.1 [facility] g/dL [facility] RDW-SD 37.7 (L) 39.0 - 49.9 fL [facility] RDW-CV 13.3 12.0 - 15.5 % [facility] PLT 259 166 - 358 [facility] 10*3/L [facility] MPV 11.2 9.5 - 12.9 fL [facility] NRBC/100 WBC 0.0 0.0 - 10.0 /100 [facility] WBCs [facility] NRBC x10^3 <0.01 10*3/L [facility] GRAN MAT (NEUT) % 57.4 % [facility] IMM GRAN % 0.50 % [facility] LYMPH % 33.7 % [facility] MONO % 6.6 % [facility] EOS % 1.3 % [facility] BASO % 0.5 % [facility] GRAN MAT x10^3(ANC) 6.27 1.88 - 7.09 [facility] 10*3/uL [facility] IMM GRAN x10^3 0.05 0.00 - 0.06 [facility] 10*3/uL [facility] LYMPH x10^3 3.67 (H) 1.32 - 3.29 [facility] 10*3/uL [facility] MONO x10^3 0.72 0.33 - 0.92 [facility] 10*3/uL [facility] EOS x10^3 0.14 0.03 - 0.39 [facility] 10*3/uL [facility] BASO x10^3 0.05 0.01 - 0.07 [facility] 10*3/uL [facility] Specimen Blood - VENOUS Performing Organization Address City/State/Zipcode Phone Number [facility] CLIA: [id number], [address] [place], [place] [address] LIPASE (08/22/2019 12:18 AM CDT) Pathologist Sig nature LIPASE 174 0 - 220 U/L [facility] Specimen Blood - VENOUS Performing Organization Address City/State/Zipcode Phone Number [facility] CLIA: [id number], [address] [place], [place] [address] COMP. METABOLIC PANEL (19048) (08/22/2019 12:18 AM CDT) Pathologist Sig nature NA 139 135 - 145 [facility] mmol/L [facility] K 4.5 3.5 - 5.0 [facility] mmol/L [facility] CL 103 98 - 108 mmol/L [facility] CO2 TOTAL 25 23 - 31 mmol/L [facility] AGAP 11 2 - 16 [facility] BUN 7 7 - 23 mg/dL [facility] GLUCOSE 312 (H) 70 - 110 mg/dL [facility] CREATININE 0.55 0.50 - 1.04 [facility] mg/dL [facility] TOTAL BILI 0.7 0.1 - 1.1 mg/dL [facility] CALCIUM 10.0 8.6 - 10.6 [facility] mg/dL [facility] T PROTEIN 8.4 (H) 6.3 - 8.2 g/dL [facility] ALBUMIN 4.7 3.5 - 5.0 g/dL [facility] ALK PHOS 82 34 - 122 U/L [facility] ALTv 18 5 - 35 U/L [facility] AST(SGOT) 34 13 - 40 U/L [facility] eGFR Calculation 117.0 mL/min/1.73m2 [facility] (Non-[facility] [place]) eGFR Calculation 141.8 mL/min/1.73m2 [facility] () [facility] Specimen Blood - VENOUS Narrative Performed At Association of Glomerular Filtration Rate (GFR) [facility] and Staging of Kidney Disease* + + +- + | GFR (mL/min/1.73 m2) | With Kidney Damage | Without Kidney Damage + + +- + | >90 | Stage one | Normal + + +- + | 60-89 | Stage two | Decreased GFR + + +- + | 30-59 | Stage three | Stage three + + +- + | 15-29 | Stage four | Stage four + + +- + | <15 (or dialysis) | Stage five | Stage five + + +- + *Each stage assumes the associated GFR level has been in effect for at least three months. Stages 1 to 5, with or without kidney disease, indicate chronic kidney disease. Notes: Determination of stages one and two (with eGFR >59mL/min/1.73 m2) requires estimation of kidney damage for at least three months as defined by structural or functional abnormalities of the kidney, manifested by either: Pathological abnormalities or Markers of kidney damage (including abnormalities in the composition of the blood or urine or abnormalities in imaging tests). Performing Organization Address [facility] Phone Number [facility] CLIA: [id number], [address] [place] [address] URINALYSIS (08/22/2019 12:05 AM CDT) APPEARANCE Clear Clear [facility] COLOR Straw (A) Yellow [facility] PH 6.0 4.8 - 8.0 [facility] SP GRAVITY 1.005 1.003 - 1.030 [facility] GLU U QUAL 500 mg/dL (A) Normal [facility] BLOOD NegativeComment: Negative [facility] INTERFERENCE FROM HOSPITAL LABORATORY ASCORBIC ACID MAY CAUSE FALSE NEGATIVE RESULT KETONES Negative Negative [facility] PROTEIN Negative Negative [facility] UROBILIN Normal Normal [facility] BILIRUBIN Negative Negative [facility] NITRITE Negative Negative [facility] [place] Negative Negative [facility] RBC/HPF <1 0 - 3 HPF [facility] WBC/HPF 1 0 - 5 HPF [facility] BACTERIA Few (A) Negative [facility] MUCOUS Slight (A) Negative LPF [facility] SQ EPITH 1 HPF [facility] Specimen Urine - URINE, CLEAN CATCH Performing Organization Address [facility] Phone Number [facility] CLIA: [id number], [address] [place], [place] [address] COVID-19 (ID NOW RAPID TESTING) (08/22/2019 12:04 AM CDT) Pathologist [facility] SARS-CoV-2 Rapid ID Not Detected Not Detected [facility] Specimen Swab - NASOPHARYNGEAL SWAB Narrative Performed At [facility] [facility] COVID-19 Assay is an isothermal nucleic [facility] acid amplification test intended for the qualitative detection of nucleic acid from SARS-CoV-2 viral RNA in nasopharyngeal ([employer]) specimens. It is used under Emergency Use Authorization (EUA) by FDA. The limit of detection (LOD) of the assay is 125 Genome Equivalents/mL. A positive result is indicative of the presence of SARS-CoV-2 RNA. Clinical correlation with patient history and other diagnostic information is necessary to determine patient infection status. A negative (Not Detected) result does not preclude SARS-CoV-2 infection. In patients with clinical symptoms and other tests that are consistent with SARS-CoV-2 infection, negative results should be treated as presumptive negative and a new specimen should be tested with alternative PCR molecular test. Invalid: Please collect a new specimen for repeat patient testing if clinically indicated. Performing Organization Address City/State/Zipcode Phone Number [facility] CLIA: [id number], [address] [place], [place] [address] documented in this encounter Visit Diagnoses Diagnosis Chronic abdominal pain - Primary Abdominal pain, unspecified site Fever in adult Nausea, vomiting and diarrhea Nausea with vomiting Uncontrolled type 2 diabetes mellitus wi th hyperglycemia documented in this encounter Administered Medications Medication Order MAR Action Action Date Dose Rate Site FENTanyl PF (SUBLIMAZE (PF)) Given 08/22/2019 2:05 AM CDT 50 mc g injection 50 mcg 50 mcg, Slow IV Push, ONCE, 1 dose, 08/22/19 at 0230, Routine FENTanyl PF (SUBLIMAZE (PF)) injection 75 Given 08/22/2019 12:20 AM CDT 75 mcg mcg 75 mcg, Slow IV Push, ONCE, 1 dose, 08/22/19 at 0115, Routine insulin regular human (HUMULIN R) Given 08/22/2019 2:05 AM CDT 5 Units Abdomen-SC injection 5 Units 5 Units, Subcutaneous, ONCE, 1 dose, 08/22/19 at 0300, Routine proMETHazine (PHENERGAN) 25 mg in NaCl 0.9% Given 08/22/2019 12:20 AM CDT 25 mg (NS) 50 mL piggyback 25 mg, IV Piggyback, ONCE, 1 dose, 08/22/19 at 0115, 50 mL documented in this encounter [phone] [id number] (Work) documented as of this encounter"
[2019-09-17] MEDS ORDERED: PROMETHAZINE INJ 25 MG/ML AMP ONE ×2 (20:40→21:17)
[2019-09-17] MEDS ORDERED: NA CHLORIDE 0.9% 1,000 ML ONE (20:40)
[2019-09-17] MEDS ORDERED: FENTANYL CITR 100 MCG/2 ML ONE (20:40)
[2019-09-17 20:43] LABS: Absolute Lymphocytes (CBC) 2.5 K/uL (0.7-4.9); Basophils % 1.1 % (0-1.3); Hematocrit 41.3 % (36.0-45.0); Lymphocytes % 33.3 % (15.3-44.8); MPV 9.3 fL (7.6-11.3); RBC Red Blood Cell Count 5.16 M/uL (3.86-4.86)
[2019-09-17 20:58] LABS: ALT/SGPT 23 U/L (12-78); AST/SGOT 17 U/L (15-37); Albumin 3.6 g/dL (3.4-5.0); Alkaline Phosphatase 100 U/L (45-117); BUN Blood Urea Nitrogen 11 mg/dL (7-18); Bicarbonate 25 mmol/L (21-32); Bilirubin Direct < 0.1 mg/dL (0-0.2); Bilirubin Total 0.3 mg/dL (0.2-1.0); Glucose Level 337 mg/dL (74-106); Lipase 259 U/L (73-393); Potassium 3.9 mmol/L (3.5-5.1); Sodium Level 138 mmol/L (136-145)
[2019-09-17] MEDS ORDERED: HYDROMORPHONE HCL 1 MG/ML INJ ONE (21:18)
--- NOTE | 2019-09-17 23:44 | ER ---
Nurse's Notes [facility] Name: Elly Clarke Age: 49 yrs Sex: Female : 1970 Arrival Date: 09/17/2019 Time: 20:01 Bed 5 Private MD: Pavel Curran T; Justino Gupta M Diagnosis: Unspecified abdominal pain Presentation: 09/16 20:06 Chief complaint: Patient states: Mid abd pain with N/V/D for over [address] gonzalez BENEDICT Has more tests ordered for . No fever. Coronavirus screen: Proceed with normal triage. Patient denies a cough. Patient denies shortness of breath or difficulty breathing. Patient denies measured and/or subjective temperature greater than 100.4F prior to today's visit. Patient denies travel on a cruise ship or to a country the [facility] currently lists as an affected area. Patient denies contact with known and/or suspected case of COVID-19. Initial Sepsis Screen: Does the patient meet any 2 criteria? HR > 90 bpm. No. Patient's initial sepsis screen is negative. Risk Assessment: Do you want to hurt yourself or someone else? Patient reports no desire to harm self or others. Onset of symptoms was July 18, 2019. 20:06 Method Of Arrival: Wheelchair ll1 20:06 Acuity: HANNAH 3 ll1 20:54 Ebola Screen: No symptoms or risks identified at this time. Initial Sepsis Screen: Does mg2 the patient have a suspected source of infection? No. Patient's initial sepsis screen is negative. Historical: - Allergies: 20:04 Claritin (insomnia); ll1 20:04 Compazine (Seizures); ll1 20:04 (Hives); ll1 20:04 Demerol (HEART RACING); ll1 20:04 Morphine (RACING HEART); ll1 - Home Meds: 20:55 Lantus 100 unit/mL Sub-Q soln 60 unit twice a day [Active]; metformin 500 mg Oral tab 1 mg2 tab 2 times per day [Active]; tizanidine 2 mg Oral cap 2 caps twice a day [Active]; tramadol 50 mg Oral tab 1 tab three times a day [Active]; - PMHx: 20:04 Arthritis; Chrohns; Chronic pain; Diabetes - NIDDM; Dramatic migraine events; ll1 Gastroparesis; High Cholesterol; Hypertension; Migraines; Pancreatitis; spinal stenosis; - PSHx: 20:04 Hysterectomy; Knee surgery; Appendectomy; Cholecystectomy; ll1 - Immunization history:: Flu vaccine status is unknown. - Social history:: Patient/guardian denies using alcohol, street drugs, tobacco products, Smoking status: unknown. Screenin:53 Abuse screen: Denies threats or abuse. Denies injuries from another. Nutritional mg2 screening: No deficits noted. Tuberculosis screening: No symptoms or risk factors identified. Fall Risk IV access (20 points). Assessment: 20:30 General: Appears uncomfortable, Behavior is cooperative, crying. mg2 20:30 Pain: Complains of pain in abdomen Pain currently is 10 out of 10 on a pain scale. mg2 Quality of pain is described as aching, Pain began gradually, Is intermittent. Neuro: Level of Consciousness is awake, alert, obeys commands, Oriented to person, place, time, situation. Cardiovascular: Capillary refill < 3 seconds Patient's skin is warm and dry. Respiratory: Airway is patent Respiratory effort is even, unlabored, Respiratory pattern is regular, symmetrical. GI: Reports lower abdominal pain, upper abdominal pain, nausea, vomiting. : No signs and/or symptoms were reported regarding the genitourinary system. EENT: Derm: Skin is intact, is healthy with good turgor, Skin is pink, warm \T\ dry. normal. Musculoskeletal: Circulation, motion, and sensation intact. Capillary refill < 3 seconds. 22:13 Reassessment: Patient appears in no apparent distress at this time. Patient and/or mg2 family updated on plan of care and expected duration. Pain level reassessed. Patient is alert, oriented x 3, equal unlabored respirations, skin warm/dry/pink. Patient states feeling better. 22:29 Reassessment: Patient appears in no apparent distress at this time. mg2 Vital Signs: 20:08 BP 137 / 88; Pulse 115; Resp 18; Temp 97.0; Pulse Ox 100% ; Pain 8/10; ll1 22:29 BP 140 / 90; Pulse 112; Resp 18; Pulse Ox 100% on R/A; mg2 23:35 BP 146 / 89; Pulse 102; Resp 19; Temp 97.5(TE); Pulse Ox 100% ; mg2 ED Course: 20:01 Patient arrived in ED. es 20:04 Jose A Leung, [id number] is PHCP. pm1 20:04 Kam Parker MD is Attending Physician. pm1 20:04 Kong Brock, NAT is Primary Nurse. mg2 20:04 Arm band placed on Patient placed in an exam room, on a stretcher. ll1 20:07 Triage completed. ll1 20:35 Inserted saline lock: 22 gauge in left antecubital area, using aseptic technique. Blood ll1 collected. 20:41 Pavel Curran MD is Private Physician. sg 20:41 Justino Gupta MD is Private Physician. sg 20:54 Patient has correct armband on for positive identification. Pulse ox on. NIBP on. Door mg2 closed. Warm blanket given. 20:54 No provider procedures requiring assistance completed. mg2 22:16 CT Abd/Pelvis - IV Contrast Only In Process Unspecified. EDMS 23:43 Justino Gupta MD is Referral Physician. pm1 06 00:04 IV discontinued, intact, bleeding controlled, No redness/swelling at site. Pressure mg2 dressing applied. Administered Medications: 09/16 20:40 Drug: Phenergan 12.5 mg Route: IVP; Site: left antecubital; mg2 22:14 Follow up: Response: No adverse reaction; Marked relief of symptoms mg2 20:42 Drug: fentaNYL (PF) 50 mcg Route: IVP; Site: left antecubital; mg2 22:14 Follow up: Response: No adverse reaction; Marked relief of symptoms; RASS: Alert and mg2 Calm (0) 20:49 Drug: NS 0.9% 1000 ml Route: IV; Rate: 1000 ml; Site: left antecubital; mg2 22:14 Follow up: Response: No adverse reaction; IV Status: Completed infusion; IV Intake: mg2 1000ml 21:15 Drug: Phenergan 12.5 mg Route: IVP; Site: left antecubital; ah 22:14 Follow up: Response: No adverse reaction; Marked relief of symptoms mg2 21:16 Drug: Dilaudid 1 mg Route: IVP; Site: left antecubital; ah 22:14 Follow up: Response: No adverse reaction; Marked relief of symptoms mg2 23:57 Drug: Dilaudid 1 mg Route: IVP; Site: left antecubital; mg2 23:57 Follow up: Response: No adverse reaction; Medication administered at discharge. mg2 Intake: 22:14 IV: 1000ml; Total: 1000ml. mg2 Outcome: 23:43 Discharge ordered by . pm1 09/17 00:03 Discharged to home via wheelchair. mg2 Discharge instructions given to patient, Instructed on discharge instructions, follow up and referral plans. medication usage, Demonstrated understanding of instructions, follow-up care, medications, Prescriptions given X 1. 00:03 Condition: stable mg2 00:04 Patient left the ED. mg2 Signatures: Dispatcher [employer] EDMS Facundo Martinez RN RN Lucille Paige Patrick, NP COMMODITY ANALYST pm1 Kong Brock RN RN mg2 Emmy Maxwell RN RN Dimas Tomlin RN RN ll1
--- NOTE | 2019-09-17 23:44 | EDPHYS ---
Physician Documentation [facility] Name: Elly Clarke Age: 49 yrs Sex: Female : 1970 Arrival Date: 09/17/2019 Time: 20:01 Bed 5 Private MD: Pavel Curran T; Justino Gupta M ED Physician Kam Parker HPI: 09/16 20:16 This 49 yrs old Female presents to ER via Wheelchair with complaints of pm1 Abdominal Pain, Nausea/Vomiting. 20:16 The patient presents with abdominal pain in the upper abdomen. Onset: The pm1 symptoms/episode began/occurred 2 month(s) ago. The symptoms do not radiate. Associated signs and symptoms: Pertinent positives: nausea and vomiting, Pertinent negatives: chest pain, diarrhea, fever, shortness of breath. The symptoms are described as sharp. Modifying factors: The symptoms are alleviated by nothing, the symptoms are aggravated by nothing. Severity of pain: in the emergency department the pain is actually worse. The patient has experienced similar episodes in the past, multiple times. The patient has been recently seen by a physician: Dr. Gupta. Had endoscopy and colonoscopy completed within the last 3 weeks. Historical: - Allergies: 20:04 Claritin (insomnia); ll1 20:04 Compazine (Seizures); ll1 20:04 (Hives); ll1 20:04 Demerol (HEART RACING); ll1 20:04 Morphine (RACING HEART); ll1 - Home Meds: 20:55 Lantus 100 unit/mL Sub-Q soln 60 unit twice a day [Active]; metformin 500 mg Oral tab 1 mg2 tab 2 times per day [Active]; tizanidine 2 mg Oral cap 2 caps twice a day [Active]; tramadol 50 mg Oral tab 1 tab three times a day [Active]; - PMHx: 20:04 Arthritis; Chrohns; Chronic pain; Diabetes - NIDDM; Dramatic migraine events; ll1 Gastroparesis; High Cholesterol; Hypertension; Migraines; Pancreatitis; spinal stenosis; - PSHx: 20:04 Hysterectomy; Knee surgery; Appendectomy; Cholecystectomy; ll1 - Immunization history:: Flu vaccine status is unknown. - Social history:: Patient/guardian denies using alcohol, street drugs, tobacco products, Smoking status: unknown. ROS: 20:16 Constitutional: Negative for fever, chills, and weight loss, Cardiovascular: Negative pm1 for chest pain, palpitations, and edema, Respiratory: Negative for shortness of breath, cough, wheezing, and pleuritic chest pain. 20:16 Back: Negative for injury and pain, : Negative for injury, bleeding, discharge, and swelling, MS/Extremity: Negative for injury and deformity, Skin: Negative for injury, rash, and discoloration, Neuro: Negative for headache, weakness, numbness, tingling, and seizure. 20:16 Abdomen/GI: Positive for abdominal pain, nausea and vomiting, Negative for diarrhea, constipation. Exam: 20:16 Constitutional: This is a well developed, well nourished patient who is awake, alert, pm1 and in no acute distress. Head/Face: Normocephalic, atraumatic. Chest/axilla: Normal chest wall appearance and motion. Nontender with no deformity. No lesions are appreciated. 20:16 Back: No spinal tenderness. No costovertebral tenderness. Full range of motion. Skin: Warm, dry with normal turgor. Normal color with no rashes, no lesions, and no evidence of cellulitis. MS/ Extremity: Pulses equal, no cyanosis. Neurovascular intact. Full, normal range of motion. 20:16 Cardiovascular: Rate: normal, Rhythm: regular, Pulses: no pulse deficits are appreciated. 20:16 Respiratory: Exam negative for acute changes, respiratory distress, shortness of breath. 20:16 Abdomen/GI: Inspection: abdomen appears normal, Palpation: soft, in all quadrants, mild abdominal tenderness, in the epigastric area, mass, is not appreciated, rebound tenderness, is not appreciated. 20:16 Neuro: Exam negative for acute changes, Orientation: is normal, Mentation: is normal, Motor: is normal, moves all fours. Vital Signs: 20:08 BP 137 / 88; Pulse 115; Resp 18; Temp 97.0; Pulse Ox 100% ; Pain 8/10; ll1 22:29 BP 140 / 90; Pulse 112; Resp 18; Pulse Ox 100% on R/A; mg2 23:35 BP 146 / 89; Pulse 102; Resp 19; Temp 97.5(TE); Pulse Ox 100% ; mg2 MDM: 20:06 Patient medically screened. pm1 23:42 Data reviewed: vital signs. Data interpreted: Pulse oximetry: on room air is 100 %. pm1 Interpretation: normal. 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 23:47 ED course: Patient reports that Tramadol and Bentyl do not work well for her pain at pm1 home as prescribed by Candy, but codeine sometimes works. Reports that she just ran out of her Zofran, but Phenergan PO works better. Instructed patient to follow up with Dr. Gupta for additional tests. Patient recently had colonoscopy and EGD within the past 3 weeks with him. 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 Unable to prescribe any narcotic medications because she pm1 had Stadol and tramadol 28 days filled to her on 09/06/2019. 09/16 20:11 Order name: Basic Metabolic Panel; Complete Time: 21:07 pm1 09/16 20:11 Order name: CBC with Diff; Complete Time: 21:07 pm1 09/16 20:11 Order name: Hepatic Function; Complete Time: 21:07 pm1 09/16 20:11 Order name: Lipase; Complete Time: 21:07 pm1 09/16 20:11 Order name: CT Abd/Pelvis - IV Contrast Only pm1 09/16 20:11 Order name: IV Saline Lock; Complete Time: 20:49 pm1 09/16 20:11 Order name: Labs collected and sent; Complete Time: 20:49 pm1 Administered Medications: 20:40 Drug: Phenergan 12.5 mg Route: IVP; Site: left antecubital; mg2 22:14 Follow up: Response: No adverse reaction; Marked relief of symptoms mg2 20:42 Drug: fentaNYL (PF) 50 mcg Route: IVP; Site: left antecubital; mg2 22:14 Follow up: Response: No adverse reaction; Marked relief of symptoms; RASS: Alert and mg2 Calm (0) 20:49 Drug: NS 0.9% 1000 ml Route: IV; Rate: 1000 ml; Site: left antecubital; mg2 22:14 Follow up: Response: No adverse reaction; IV Status: Completed infusion; IV Intake: mg2 1000ml 21:15 Drug: Phenergan 12.5 mg Route: IVP; Site: left antecubital; 22:14 Follow up: Response: No adverse reaction; Marked relief of symptoms mg2 21:16 Drug: Dilaudid 1 mg Route: IVP; Site: left antecubital; 22:14 Follow up: Response: No adverse reaction; Marked relief of symptoms mg2 23:57 Drug: Dilaudid 1 mg Route: IVP; Site: left antecubital; mg2 23:57 Follow up: Response: No adverse reaction; Medication administered at discharge. mg2 Disposition: 09/17 04:24 Co-signature as Attending Physician, Kam Parker MD I agree with the assessment and zoe plan of care. Disposition: 09/17/19 23:43 Discharged to Home. Impression: Unspecified abdominal pain. - Condition is Stable. - Discharge Instructions: Abdominal Pain, Adult. - Prescriptions for promethazine 25 mg Oral Tablet - take 1 tablet by ORAL route every 6 hours As needed; 20 tablet. - Medication Reconciliation Form, Thank You Letter, Antibiotic Education, Prescription Opioid Use form. - Follow up: Justino Gupta MD; When: 2 - 3 days; Reason: Recheck today's complaints, Continuance of care, Re-evaluation by your physician. - Problem is new. - Symptoms have improved. Signatures: Dispatcher [employer] EDKam Sparks MD MD cha Marinas, Patrick, SYSTEM TECHNOLOGIST SYSTEM TECHNOLOGIST pm1 Kong Brock RN RN [facility] [place] Emmy Maxwell RN RN Dimas Tomlin RN RN 1 Corrections: (The following items were deleted from the chart) 00:04 09/16 23:43 09/17/2019 23:43 Discharged to Home. Impression: Unspecified abdominal mg2 pain. Condition is Stable. Forms are Medication Reconciliation Form, Thank You Letter, Antibiotic Education, Prescription Opioid Use. Follow up: Justino Gupta; When: 2 - 3 days; Reason: Recheck today's complaints, Continuance of care, Re-evaluation by your physician. Problem is new. Symptoms have improved. pm1
[2019-09-18] MEDS ORDERED: HYDROMORPHONE HCL 1 MG/ML INJ ONE (00:02)
[2019-09-18 00:34] VITALS: BP 140/90; O2SAT 100
[2019-09-18 00:35] VITALS: TEMP 97
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
== END 2019-09-18 00:04 | disposition home or self-care (01) ==
LOC: ER 19:43
DX: R10.10 Upper abdominal pain, unspecified (principal); R11.2 Nausea with vomiting, unspecified; I10 Essential (primary) hypertension; E11.9 Type 2 diabetes mellitus without complications; E78.00 Pure hypercholesterolemia, unspecified; Z79.4 Long term (current) use of insulin; Z88.1 Allergy status to other antibiotic agents; Z88.5 Allergy status to narcotic agent; Z88.8 Allergy status to other drugs, medicaments and biological substances
CPT/HCPCS: 96361; 85025; 80048; 36415; 80076; 83690; 74177; 96375; 96374; 99284; Q9967; J2550 ×2; J3010; J1170 ×2; J7030

== ENCOUNTER 2019-12-16 10:55 | Emergency (ER) | payer SELFPAY ==
--- OUTSIDE RECORDS SUMMARY | 2019-12-16 10:57 | XMS REPORT | Continuity of Care Document ---
:1970 Author Organization [facility] t Address [address] [place] [address] Care Team Providers Name Role Phone Fahad [...] numbness 08-29 [facility] - 00:[facility]: Medical 00 [facility] Neurologic Neurologic Disease Active [facility] 08-28 [facility] - symptoms symptoms 00:00: Medica l 00 Center Allergies, Adverse Reactions, Alerts Allergy Allergy Status Severity Reaction(s) Onset Inactive Treating Comm ents Source Name Type Date Date Clinician Baldo Shorti Active Other (See hyperacti [facility] ne-Pseud ty to Comments) 08-28 vity [facility] - oephedri adverse 00:00: Medical ne reaction 00 [facility] Procpricilla Shorti Active Other (See Seizures [facility] perazine ty to Comments) 08-28 [facility] - adverse 00:00: Medical reaction 00 Center s Meperidi Propensi Active Rash [facility] ne ty to 08-28 [facility] - adverse 00:00: Medical reaction 00 [facility] Phenobar Drug Active Itching, [facility] b-Hyoscy Allergy Rash 08-28 [facility] - -Atropin 00:00: Medical e-Scop 00 [facility] Morphine Propensi Active Rash [facility] ty to 08-28 [facility] - adverse 00:00: Medical reaction 00 [facility] Social History Social Habit Start Date Stop Date Quantity Comments Source Sex Assigned At [facility] Smoking Status Start Date Stop Date Source [facility] Medications Ordered Filled Start Stop Current Ordering [...] Clinicians Facility Department ID 2019-08-21 2019-08-22 [facility] [id number] 23:48:04 02:26:00 Jose Cruz Suarez [id number] [place] [id number] [place] [id number] 2019-08-06 2019-08-06 Telephone IQRA Barragan [id number] 00:00:00 00:00:00 Apoorva [facility] [id number] [facility] [id number] 2019-08-06 2019-08-06 Telephone IQRA Box [id number] 00:00:00 00:00:00 Jinny [facility] [id number] [facility] [id number] 2019-08-05 2019-08-05 Telephone IQRA Box [id number] 00:00:00 00:00:00 Jinny [facility] [id number] [facility] [id number] Results Test Description Test Time Test Comments Results Result Comments Source POCT-GLUCOSE METER 2017-09-01 17:07:00 Test Item Value Reference Range Interpretation Comme nts POC-GLUCOSE METER ([facility]) (test 298 mg/dL 70-110 H TESTED AT [address] code = 1538) [facility] 7[address] 0 POCT-GLUCOSE [id number] 12:11:00 Test Item Value Reference Range Interpretation Comments POC-GLUCOSE METER 331 mg/dL 70-110 H Notified Rina Low MD/TESTED ([facility]) (test code = AT [address] 1538) [facility] 7703 0 POCT-GLUCOSE [id number] 10:55:00 Test Item Value Reference Range Interpretation Comments POC-GLUCOSE METER 365 mg/dL 70-110 H TESTED AT [place] [address] ([facility]) (test code = ELIZABETH Flynn [facility] 1538) [address] POCT-GLUCOSE [id number] 08:44:00 Test Item Value Reference Range Interpretation Comments POC-GLUCOSE METER 291 mg/dL 70-110 H TESTED AT [place] [address] ([facility]) (test code = ELIZABETH Flynn [facility] 1538) [address] LIPID [id number] 05:56:00 Test Item Value Reference Range Interpretation Comments TRIGLYCERIDES ([facility]) (test code = 279 mg/dL 540) CHOLESTEROL ([facility]) (test code = 119 mg/dL 631) HDL CHOLESTEROL ([facility]) (test code 22 mg/dL = 976) LDL CHOLESTEROL CALCULATED ([facility]) 41 mg/dL (test code = 633) Triglyceride Reference Range: Low Risk <150 Borderline 150-199 High Risk 200-499 Very High Risk >=500Cholesterol Reference Range: Low Risk <200 Borderline 200-239 High Risk >240HDL Cholesterol Reference Range: Low Risk >=60 High Risk <40LDL Cholesterol Reference Range: Optimal <100 Near Optimal 100-129 Borderline 130-159 High 160-189 Very High >=190POCT-GLUCOSE [id number] 21:50:00 Test Item Value Reference Range Interpretation Comments POC-GLUCOSE METER 318 mg/dL 70-110 H TESTED AT [place] [address] ([facility]) (test code = ELIZABETH Flynn [place] 1538) [address] POCT-GLUCOSE [id number] 18:04:00 Test Item Value Reference Range Interpretation Comments POC-GLUCOSE METER 238 mg/dL 70-110 H TESTED AT [place] [address] ([facility]) (test code = ELIZABETH Flynn [place] 1538) [address] POCT-GLUCOSE [id number] 12:22:00 Test Item Value Reference Range Interpretation Comments POC-GLUCOSE METER 290 mg/dL 70-110 H TESTED AT [place] [address] ([facility]) (test code = ELIZABETH Flynn [place] 1538) [address] POCT-GLUCOSE [id number] 09:20:00 Test Item Value Reference Range Interpretation Comments POC-GLUCOSE METER 293 mg/dL 70-110 H TESTED AT [place] [address] ([facility]) (test code = ELIZABETH Flynn [place] 1538) [address] POCT-GLUCOSE [id number] 21:00:00 Test Item Value Reference Range Interpretation Comments POC-GLUCOSE METER 225 mg/dL 70-110 H TESTED AT [place] [address] ([facility]) (test code = ELIZABETH Flynn [place] 1538) [address] CT, CAROTID, [id number] 18:01:00FINAL REPORT CT angiogram of the upper [...] Petersen Verified Date/Time: 08/30/2017 18:01:31 Reading Location: [address] Neuro Reading Room , CTANGIO [id number] 18:01:00FINAL REPORT CT angiogram of the upper [...] [place] Verified Date/Time: 08/30/2017 18:01:31 Reading Location: [address] Neuro Reading Room -GLUCOSE [id number] 17:21:00 Test Item Value Reference Range Interpretation Comments POC-GLUCOSE METER 256 mg/dL 70-110 H TESTED AT [facility] 6720 (BEAKER) (test code = ELIZABETH Flynn [facility] 1538) [address] POCT-GLUCOSE [id number] 12:00:00 Test Item Value Reference Range Interpretation Comments POC-GLUCOSE METER 289 mg/dL 70-110 H TESTED AT [facility] 6720 (BEAKER) (test code = ELIZABETH Flynn [facility] 1538) [address] BASIC METABOLIC [id number] 10:12:00 Test Item Value Reference Range Interpretation [...] NOT APPLICABLE FOR DIALYSIS PATIEN TS. POCT-GLUCOSE [id number] 08:42:00 Test Item Value Reference Range Interpretation Comments POC-GLUCOSE METER 259 mg/dL 70-110 H TESTED AT [facility] 6720 (BEAKER) (test code = ELIZABETH [place] 1538) [address] TROPONIN [id number] 06:14:00 Test Item Value Reference Range Interpretation [...] = 2801) RAD, CHEST, 1 VIEW, NON [id number] 04:23:00Reason for exam:->chest painShould this be performed at the bedside?->YesFINAL REPORT Comparison examination: None No pneumothorax, focal pulmonary co nsolidation, or significant pleural effusion. Normal cardiomediastinal contours. Normal skeleton and soft tissues. Impression: No acute abnormality. Signed: Ervin Jenkins Verified Date/Time: 08/30/2017 04:23:04 Reading Location: [address] Reading Room POCT-GLUCOSE [id number] 21:18:00 Test Item Value Reference Range Interpretation Comments POC-GLUCOSE METER 151 mg/dL 70-110 H TESTED AT [facility] 6720 ([facility]) (test code = ELIZABETH [place] 1538) [address] POCT-GLUCOSE [id number] 17:59:00 Test Item Value Reference Range Interpretation Comments POC-GLUCOSE METER 146 mg/dL 70-110 H TESTED AT [facility] 6720 ([facility]) (test code = ELIZABETH [place] 1538) [address] HEMOGLOBIN [id number] 15:56:00 Test Item Value Reference Range Interpretation Comments HEMOGLOBIN A1C (BEAKER) (test code = 13.7 % 4.3-6.1 H 368) CT, BRAIN, WITHOUT [id number] 14:52:00FINAL REPORT CT head without contrast. Comparisons: [...] Petersen Verified Date/Time: 08/29/2017 14:52:09 Reading Location: [address] Neuro Reading Room POCT-GLUCOSE [id number] 14:17:00 Test Item Value Reference Range Interpretation Comments POC-GLUCOSE METER 423 mg/dL 70-110 Notified Rina Low MD/TESTED (JESSICA) (test code = AT [facility] [address] [facility] 1538) [facility] 7703 0 VITAMIN [id number] 06:48:00 Test Item Value Reference Range Interpretation Comments VITAMIN B12 (JESSICA) (test code = 300 pg/mL 213-816 774) TSH/FREE T4 IF [id number] 06:48:00 Test Item Value Reference Range Interpretation Comments THYROID STIMULATING HORMONE 1.55 uIU/mL 0.35-4.94 (JESSICA) (test code = 772) CBC W/PLT COUNT & AUTO [id number] 05:10:00 Test Item Value Reference Range Interpretation Comments WHITE BLOOD CELL COUNT ([facility] 8.6 K/ L 3.5-10.5 (test code = 775) RED BLOOD CELL COUNT ([facility]) 4.62 M/ L 3.93-5.22 (test [...] (BEAKER) (test code = 2801) URINALYSIS W/ [id number] 23:32:00 Test Item Value Reference Range Interpretation [...] Occasional SOURCE(BEAKER) (test code = 2795) TROPONIN [id number] 23:12:00 Test Item Value Reference Range Interpretation [...] acute neurological disease, and persistent tachyarrhythmia.BASIC METABOLIC [id number] 23:05:00 Test Item Value Reference Range Interpretation [...] NOT APPLICABLE FOR DIALYSIS PATIEN TS. POCT-GLUCOSE [id number] 20:49:00 Test Item Value Reference Range Interpretation Comments POC-GLUCOSE METER 376 mg/dL 70-110 H Notified R Devante SOUZA/TESTED (BEAKER) (test code = AT [facility] [address] [address]) [facility] 7[address] 0
--- OUTSIDE RECORDS SUMMARY | 2019-12-16 10:57 | XMS REPORT | Clinical Summary ---
:1970 Author [facility] Address [address] [place] [address] Care Team Providers Name Role Phone Fahad Curran MD Primary Care Provider Allergies Active Allergy Reactions Severity Noted Date Comments Loratadine-Pseudoephedrine Other (See Comments) 2017 hyperactivity Prochlorperazine Other (See Comments) 08/28/2017 Sei chelsea Meperidine Rash Low 08/28/2017 Tnlsowmsg-Betdbi-Oewkdlfu-Scop Itching, Rash Low 8 Morphine Rash Low [...] Not on file Results Not on fileafter 12/15/2018 Insurance Payer Benefit Plan / Subscriber ID Type Phone Address Group BLUE CROSS/BLUE BCBS PPO POS EPO xxxxxxxxxxxx PPO [phone] [address] [place] [address] Advance Directives For more information, please contact:[place] [phone] [facility] Centerruf[facility] [address] [place], [place] [phone] Code Status Date Activated Date Inactivated Comments Full Code 08/28/2017 9:21 PM 09/01/2017 8:22 PM This code status was determined by: Patient
[2019-12-16] MEDS ORDERED: BUTORPHANOL 1 MG/ML INJ IV ONE (11:30)
[2019-12-16] MEDS ORDERED: ONDANSETRON 4 MG/2 ML VIAL ONE ×2 (11:37→12:56)
[2019-12-16] MEDS ORDERED: NA CHLORIDE 0.9% 1,000 ML ONE (11:37)
--- NOTE | 2019-12-16 11:59 | RAD REPORT ---
EXAM DESCRIPTION: CT - Head Brain Wo Cont - 12/16/2019 11:39 am CLINICAL HISTORY: HEADACHE, multiple falls COMPARISON: Head Brain Wo Cont dated 08/28/2017 TECHNIQUE: Axial 5 mm thick images of the head were obtained without IV contrast. All CT scans are performed using dose optimization technique as appropriate and may include automated exposure control or mA/KV adjustment according to patient size. FINDINGS: No intracranial hemorrhage, mass, edema or shift of mid-line structures. No acute infarcti on changes seen. No abnormal extra-axial fluid collections. Ventricles are normal. Mastoid air cells and visualized portions of the paranasal sinuses are clear. No acute bony findings. No significant changes from comparison. IMPRESSION: Negative non-contrast CT head examination.
[2019-12-16] MEDS ORDERED: NA CHLORIDE 0.9% 500 ML ONE (12:56)
[2019-12-16] MEDS ORDERED: BUTORPHANOL 1 MG/ML INJ ONE (13:54)
--- NOTE | 2019-12-16 14:30 | ER ---
Nurse's Notes [facility] Name: Elly Clarke Age: 49 yrs Sex: Female : 1970 Arrival Date: 12/16/2019 Time: 10:58 Bed 20 Private MD: Pavel Curran T Diagnosis: Migraine Presentation: 12/15 11:01 Chief complaint: Patient states: started with a migraine yesterday and then started sv feeling dizzy and has had mx falls since yesterday. Coronavirus screen: Client denies travel out of the [place] in the last 14 days. At this time, the client does not indicate any symptoms associated with coronavirus-19. Ebola Screen: No symptoms or risks identified at this time. Risk Assessment: Do you want to hurt yourself or someone else? Patient reports no desire to harm self or others. Onset of symptoms was December 15, 2019. 11:01 Method Of Arrival: Wheelchair sv 11:01 Acuity: HANNAH 2 sv 11:03 Initial Sepsis Screen: Does the patient meet any 2 criteria? No. Patient's initial sv sepsis screen is negative. Does the patient have a suspected source of infection? No. Patient's initial sepsis screen is negative. Triage Assessment: 11:38 Headache History: The patient has had previous headaches and this one is similar to ca1 previous episodes. General: Appears. Pain: Also complains of nausea, dizziness. 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 - Social history:: Smoking status: . Screenin:16 Abuse screen: Denies threats or abuse. Denies injuries from another. Nutritional ca1 screening: No deficits noted. Tuberculosis screening: No symptoms or risk factors identified. Fall Risk IV access (20 points). Assessment: 11:15 Reassessment: Informed Dr Stern of the pt's reason for visit and vitals at this time. sv 11:16 General: Appears in no apparent distress. uncomfortable, Behavior is calm, cooperative, ca1 appropriate for age. Pain: Complains of pain in forehead Pain does not radiate. Pain currently is 8 out of 10 on a pain scale. Pain began 2-3 days ago. Neuro: Level of Consciousness is awake, alert, obeys commands, Oriented to person, place, time, situation, Reports dizziness, headache. Cardiovascular: Heart tones S1 S2 present Capillary refill < 3 seconds Patient's skin is warm and dry. Respiratory: Airway is patent Respiratory effort is even, unlabored, Respiratory pattern is regular, symmetrical, Breath sounds are clear bilaterally. GI: Abdomen is round non-distended, Bowel sounds present X 4 quads. Abd is soft and non tender X 4 quads. Reports nausea. : No signs and/or symptoms were reported regarding the genitourinary system. EENT: No signs and/or symptoms were reported regarding the EENT system. Derm: Skin is intact, is healthy with good turgor, Skin is pink, warm \\T\\ dry. Musculoskeletal: Circulation, motion, and sensation intact. Capillary refill < 3 seconds. 11:36 Reassessment: PT at CT. ca1 12:10 Reassessment: Patient appears in no apparent distress at this time. Patient and/or ca1 family updated on plan of care and expected duration. Pain level reassessed. Patient is alert, oriented x 3, equal unlabored respirations, skin warm/dry/pink. Patient states feeling better. 12:47 Reassessment: Pt states, "my migraine and nausea is coming back". Notified provider. VO ca1 meds ordered and given. 13:50 Reassessment: Patient appears in no apparent distress at this time. Patient and/or ca1 family updated on plan of care and expected duration. Pain level reassessed. Patient is alert, oriented x 3, equal unlabored respirations, skin warm/dry/pink. 14:44 Reassessment: Pt states, "I am still dizzy. Nausea and headache better but still ca1 dizzy". Appears with unsteady gait going to the restroom. Notified provider. VO meclizine 25MG. 15:12 Reassessment: Patient appears in no apparent distress at this time. Patient is alert, ca1 oriented x 3, equal unlabored respirations, skin warm/dry/pink. Patient states feeling better. Patient states symptoms have improved. Vital Signs: 11:03 BP 73 / 55; Pulse 66; Resp 18; Temp 97; Pulse Ox 95% ; sv 11:22 BP 95 / 63; Pulse 66; Resp 18 S; Pulse Ox 99% ; ca1 11:50 BP 107 / 63; Pulse 67; Resp 16 S; Pulse Ox 99% on R/A; ca1 12:10 BP 101 / 56; Pulse 55; Resp 16 S; Pulse Ox 95% on R/A; ca1 12:12 Pain 4/10; ca1 13:30 BP 102 / 69; Pulse 55; Resp 15 S; Pulse Ox 95% on R/A; ca1 14:30 BP 110 / 78; Pulse 65; Resp 15 S; Pulse Ox 100% on R/A; ca1 15:13 BP 112 / 75; Pulse 65; Resp 15 S; Pulse Ox 99% on R/A; ca1 ED Course: 10:58 Patient arrived in ED. mr 10:58 Pavel Curran MD is Private Physician. mr 11:02 Triage completed. sv 11:03 Arm band placed on. sv 11:11 Patient placed in an exam room, on a stretcher, on pulse oximetry. sv 11:15 George Stern MD is Attending Physician. kdr 11:16 Patient has correct armband on for positive identification. Placed in gown. Bed in low ca1 position. Call light in reach. Side rails up X2. Pulse ox on. NIBP on. Door closed. Noise minimized. Lights dimmed. Warm blanket given. 11:19 Katia Wan, RN is Primary Nurse. ca1 11:32 Initial lab(s) drawn, by me, held in ED. Inserted saline lock: 22 gauge in left ca1 antecubital area, using aseptic technique. Blood collected. 11:39 CT Head Brain wo Cont In Process Unspecified. EDMS 14:29 Pavel Curran MD is Referral Physician. kdr 15:13 No provider procedures requiring assistance completed. IV discontinued, intact, ca1 bleeding controlled, No redness/swelling at site. Pressure dressing applied. Administered Medications: 11:32 Drug: NS 0.9% 1000 ml Route: IV; Rate: 1 bolus; Site: left antecubital; ca1 12:37 Follow up: Response: No adverse reaction; IV Status: Completed infusion; IV Intake: ca1 1000ml 11:35 Drug: Zofran (Ondansetron) 4 mg Route: IVP; Site: left antecubital; ca1 12:12 Follow up: Response: No adverse reaction; Nausea is decreased ca1 11:50 Drug: Stadol 1 mg Route: IVP; Site: left antecubital; ca1 12:12 Follow up: Pain 4/10 Adult; Response: No adverse reaction; Pain is decreased; RASS: ca1 Alert and Calm (0) 12:44 Drug: NS 0.9% 500 ml Route: IV; Rate: bolus; Site: left antecubital; ca1 13:30 Follow up: Response: No adverse reaction; IV Status: Completed infusion; IV Intake: ca1 500ml 12:46 Drug: Zofran (Ondansetron) 4 mg Route: IVP; Site: left antecubital; ca1 14:37 Follow up: Response: No adverse reaction; Nausea is decreased ca1 13:45 Drug: Stadol 0.5 mg {Note: rass 0.} Route: IVP; Site: left antecubital; ca1 14:38 Follow up: Response: No adverse reaction; Pain is decreased; RASS: Alert and Calm (0) ca1 14:46 Drug: Meclizine 25 mg Route: PO; ca1 15:12 Follow up: Response: No adverse reaction; Marked relief of symptoms ca1 Intake: 12:37 IV: 1000ml; Total: 1000ml. ca1 13:30 IV: 500ml; Total: 1500ml. ca1 Outcome: 14:29 Discharge ordered by . kdr 15:13 Discharged to home via wheelchair, with family. ca1 15:13 Condition: stable 15:13 Discharge instructions given to patient, Instructed on discharge instructions, follow up and referral plans. no drinking with medication, no driving heavy equipment, medication usage, Demonstrated understanding of instructions, follow-up care, medications, Prescriptions given X 2. 15:14 Patient left the ED. ca1 Signatures: Dispatcher [employer] EDJulianne Palacios RN RN sv George Stern MD MD kdr Rivera, Mary mr Acob, Cheryl, RN RN ca1 Corrections: (The following items were deleted from the chart) 11:06 11:01 Acuity: HANNAH 3 sv sv 12:22 12:10 Reassessment: Patient appears in no apparent distress at this time. Patient ca1 and/or family updated on plan of care and expected duration. Pain level reassessed. Patient is alert, oriented x 3, equal unlabored respirations, skin warm/dry/pink. ca1
--- NOTE | 2019-12-16 14:30 | EDPHYS ---
Physician Documentation [facility] Name: Elly Clarke Age: 49 yrs Sex: Female : 1970 Arrival Date: 12/16/2019 Time: 10:58 Bed 20 Private MD: Pavel Curran T ED Physician George Stern HPI: 12/15 14:32 This 49 yrs old Female presents to ER via Wheelchair with complaints of kdr Headache, Dizziness, Fall Injury. 14:32 The patient complains of pain to the top of head and forehead. The patient describes kdr the headache as aching, constant, pounding, a pressure, unrelenting. Onset: The symptoms/episode began/occurred yesterday. Associated signs and symptoms: Pertinent positives: dizziness, Pertinent negatives: neck stiffness, paresthesias, Photophobia rash, sinus congestion, sinus tenderness, vision changes, vision loss, vomiting. Severity of symptoms: At its worst the pain was severe, incapacitating, just prior to arrival, "similar to past headaches", in the emergency department the pain has improved, mildly. Headache History: The patient has had previous headaches and this one is similar to previous episodes, and this one is more severe than previous episodes. The symptoms are alleviated by nothing. the symptoms are aggravated by nothing. The patient has experienced similar episodes in the past, multiple times. The patient has not recently seen a physician. 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 - Social history:: Smoking status: . ROS: 14:32 Constitutional: Negative for fever, chills, and weight loss, Eyes: Negative for injury, kdr pain, redness, and discharge, Neck: Negative for injury, pain, and swelling, Cardiovascular: Negative for chest pain, palpitations, and edema, Respiratory: Negative for shortness of breath, cough, wheezing, and pleuritic chest pain, Abdomen/GI: Negative for abdominal pain, nausea, vomiting, diarrhea, and constipation, Back: Negative for injury and pain, : Negative for injury, bleeding, discharge, and swelling, MS/Extremity: Negative for injury and deformity, Skin: Negative for injury, rash, and discoloration, Psych: Negative for depression, anxiety, suicide ideation, homicidal ideation, and hallucinations, Allergy/Immunology: Negative for hives, rash, and allergies, Endocrine: Negative for neck swelling, polydipsia, polyuria, polyphagia, and marked weight changes, Hematologic/Lymphatic: Negative for swollen nodes, abnormal bleeding, and unusual bruising. 14:32 Neuro: Positive for headache. Exam: 14:32 Constitutional: This is a well developed, well nourished patient who is awake, alert, kdr and in no acute distress. Head/Face: Normocephalic, atraumatic. Eyes: Pupils equal round and reactive to light, extra-ocular motions intact. Lids and lashes normal. Conjunctiva and sclera are non-icteric and not injected. Cornea within normal limits. Periorbital areas with no swelling, redness, or edema. Neck: Trachea midline, no thyromegaly or masses palpated, and no cervical lymphadenopathy. Supple, full range of motion without nuchal rigidity, or vertebral point tenderness. No Meningismus. Chest/axilla: Normal chest wall appearance and motion. Nontender with no deformity. No lesions are appreciated. Cardiovascular: Regular rate and rhythm with a normal S1 and S2. No gallops, murmurs, or rubs. Normal PMI, no JVD. No pulse deficits. Respiratory: Lungs have equal breath sounds bilaterally, clear to auscultation and percussion. No rales, rhonchi or wheezes noted. No increased work of breathing, no retractions or nasal flaring. Abdomen/GI: Soft, non-tender, with normal bowel sounds. No distension or tympany. No guarding or rebound. No evidence of tenderness throughout. Back: No spinal tenderness. No costovertebral tenderness. Full range of motion. Skin: Warm, dry with normal turgor. Normal color with no rashes, no lesions, and no evidence of cellulitis. MS/ Extremity: Pulses equal, no cyanosis. Neurovascular intact. Full, normal range of motion. Neuro: Awake and alert, GCS 15, oriented to person, place, time, and situation. Cranial nerves II-XII grossly intact. Motor strength 5/5 in all extremities. Sensory grossly intact. Cerebellar exam normal. Normal gait. Psych: Awake, alert, with orientation to person, place and time. Behavior, mood, and affect are within normal limits. Vital Signs: 11:03 BP 73 / 55; Pulse 66; Resp 18; Temp 97; Pulse Ox 95% ; sv 11:22 BP 95 / 63; Pulse 66; Resp 18 S; Pulse Ox 99% ; ca1 11:50 BP 107 / 63; Pulse 67; Resp 16 S; Pulse Ox 99% on R/A; ca1 12:10 BP 101 / 56; Pulse 55; Resp 16 S; Pulse Ox 95% on R/A; ca1 12:12 Pain 4/10; ca1 13:30 BP 102 / 69; Pulse 55; Resp 15 S; Pulse Ox 95% on R/A; ca1 14:30 BP 110 / 78; Pulse 65; Resp 15 S; Pulse Ox 100% on R/A; ca1 15:13 BP 112 / 75; Pulse 65; Resp 15 S; Pulse Ox 99% on R/A; ca1 MDM: 14:29 Patient medically screened. kdr 14:32 Data reviewed: vital signs, nurses notes. Counseling: I had a detailed discussion with kdr the patient and/or guardian regarding: the historical points, exam findings, and any diagnostic results supporting the discharge/admit diagnosis, the need for outpatient follow up. ED course: The patient was much improved with the interventions given. She was happy with the care provided and the plan for discharge and follow-up. 12/15 11:23 Order name: CT Head Brain wo Cont kdr Administered Medications: 11:32 Drug: NS 0.9% 1000 ml Route: IV; Rate: 1 bolus; Site: left antecubital; ca1 12:37 Follow up: Response: No adverse reaction; IV Status: Completed infusion; IV Intake: ca1 1000ml 11:35 Drug: Zofran (Ondansetron) 4 mg Route: IVP; Site: left antecubital; ca1 12:12 Follow up: Response: No adverse reaction; Nausea is decreased ca1 11:50 Drug: Stadol 1 mg Route: IVP; Site: left antecubital; ca1 12:12 Follow up: Pain 4/10 Adult; Response: No adverse reaction; Pain is decreased; RASS: ca1 Alert and Calm (0) 12:44 Drug: NS 0.9% 500 ml Route: IV; Rate: bolus; Site: left antecubital; ca1 13:30 Follow up: Response: No adverse reaction; IV Status: Completed infusion; IV Intake: ca1 500ml 12:46 Drug: Zofran (Ondansetron) 4 mg Route: IVP; Site: left antecubital; ca1 14:37 Follow up: Response: No adverse reaction; Nausea is decreased ca1 13:45 Drug: Stadol 0.5 mg {Note: rass 0.} Route: IVP; Site: left antecubital; ca1 14:38 Follow up: Response: No adverse reaction; Pain is decreased; RASS: Alert and Calm (0) ca1 14:46 Drug: Meclizine 25 mg Route: PO; ca1 15:12 Follow up: Response: No adverse reaction; Marked relief of symptoms ca1 Disposition: 12/16/19 14:29 Discharged to Home. Impression: Migraine. - Condition is Stable. - Discharge Instructions: Migraine Headache, [id number], Dizziness, [id number]. - Prescriptions for Tramadol 50 mg Oral Tablet - take 1 tablet by ORAL route every 8 hours as needed; 12 tablet. Meclizine 25 mg Oral Tablet - take 1 tablet by ORAL route every 8 hours As needed; 30 tablet. - Medication Reconciliation Form, Thank You Letter, Prescription Opioid Use form. - Follow up: Pavel Curran MD; When: 2 - 3 days; Reason: If symptoms return, Further diagnostic work-up, Recheck today's complaints, Continuance of care, Re-evaluation by your physician. - Problem is an acute exacerbation. - Symptoms have improved. Signatures: Dispatcher [employer] Julinane Zheng RN RN sv Rittger, Kevin, MD MD kdr Williams, Irene, RN RN iw Katia Wan RN RN ca1 Corrections: (The following items were deleted from the chart) 15:14 14:29 12/16/2019 14:29 Discharged to Home. Impression: Migraine. Condition is Stable. ca1 Forms are Medication Reconciliation Form, Thank You Letter, Antibiotic Education, Prescription Opioid Use. Follow up: Pavel Curran; When: 2 - 3 days; Reason: If symptoms return, Further diagnostic work-up, Recheck today's complaints, Continuance of care, Re-evaluation by your physician. Problem is an acute exacerbation. Symptoms have improved. kdr
[2019-12-16] MEDS ORDERED: MECLIZINE HCL 12.5 MG TAB ONE (14:55)
[2019-12-16 19:00] VITALS: TEMP 97
[2019-12-16 19:15] VITALS: BP 112/75; O2SAT 99
== END 2019-12-16 15:14 | disposition home or self-care (01) ==
LOC: ER 10:55
DX: G43.909 Migraine, unspecified, not intractable, without status migrainosus (principal); I10 Essential (primary) hypertension; W19.XXXA Unspecified fall, initial encounter; Y93.9 Activity, unspecified; Y92.9 Unspecified place or not applicable; Z88.5 Allergy status to narcotic agent; Z88.6 Allergy status to analgesic agent; Z88.8 Allergy status to other drugs, medicaments and biological substances
CPT/HCPCS: 70450; 96361; 96374; 96375; 99284; J0595; J2405; J7030; J7040; J8597

== ENCOUNTER 2019-12-19 11:15 | Emergency (ER) | payer SELFPAY ==
--- OUTSIDE RECORDS SUMMARY | 2019-12-19 11:23 | XMS REPORT | Continuity of Care Document ---
:1970 Author Organization [facility] t Address [address] [place] [address] Care Team Providers Name Role Phone Fahad [...] numbness 08-29 [facility] - 00:00: Medical 00 [place] Neurologic Neurologic Disease Active C [facility] al 08-28 [facility] - symptoms symptoms 00:00: Medica l 00 Center Allergies, Adverse Reactions, Alerts Allergy Allergy Status Severity Reaction(s) Onset Inactive Treating Comm ents Source Name Type Date Date Clinician Baldo Shorti Active Other (See hyperacti [facility] ne-Pseud ty to Comments) 08-28 vity [facility] - oephedri adverse 00:00: Medical ne reaction 00 [place] s Procpricilla Shorti Active Other (See Seizures [facility] perazine ty to Comments) 08-28 [facility] - adverse 00:00: Medical reaction 00 Center s Meperidi Propensi Active Rash [facility] ne ty to 08-28 [facility] - adverse 00:00: Medical reaction 00 [place] s Phenobar Drug Active Itching, [facility] b-Hyoscy Allergy Rash 08-28 [facility] - -Atropin 00:00: Medical e-Scop 00 [place] Morphine Propensi Active Rash [facility] St ty to 08-28 [facility] - adverse 00:00: Medical reaction 00 [place] s Social History Social Habit Start Date Stop Date Quantity Comments Source Sex Assigned At [facility] Smoking Status Start Date Stop Date Source [facility] [place] Medications Ordered Filled Start Stop Current Ordering [...] Clinicians Facility Department ID 2019-08-21 2019-08-22 [facility] [id number] 23:48:04 02:26:00 Jose Cruz Suarez [id number] [place] [id number] [place] [id number] 2019-08-06 2019-08-06 Telephone IQRA Barragan [id number] 00:00:00 00:00:00 Apoorva JENKINS [id number] [facility] [id number] 2019-08-06 2019-08-06 Telephone IQRA Box [id number] 00:00:00 00:00:00 Jinny JENKINS [id number] HOSPITAL [id number] 2019-08-05 2019-08-05 Telephone IQRA Box [id number] 00:00:00 00:00:00 Jinny JENKINS [id number] [facility] [id number] Results Test Description Test Time Test Comments Results Result Comments Source POCT-GLUCOSE METER 2017-09-01 17:07:00 Test Item Value Reference Range Interpretation Comme nts POC-GLUCOSE METER ([facility]) (test 298 mg/dL 70-110 H TESTED AT [address] code = 1538) [facility] 7703 0 POCT-GLUCOSE [id number] 12:11:00 Test Item Value Reference Range Interpretation Comments POC-GLUCOSE METER 331 mg/dL 70-110 H Notified Rina Low MD/TESTED ([facility]) (test code = AT [address] 1538) [facility] 7703 0 POCT-GLUCOSE [id number] 10:55:00 Test Item Value Reference Range Interpretation Comments POC-GLUCOSE METER 365 mg/dL 70-110 H TESTED AT [place] [address] ([facility]) (test code = EL[facility]ABETH Flynn [facility] 1538) [address] POCT-GLUCOSE [id number] 08:44:00 Test Item Value Reference Range Interpretation Comments POC-GLUCOSE METER 291 mg/dL 70-110 H TESTED AT [place] [address] ([facility]) (test code = [facility]ETH Flynn [facility] 1538) [address] LIPID [id number] 05:56:00 Test Item Value Reference Range Interpretation Comments TRIGLYCERIDES ([facility]) (test code = 279 mg/dL 540) CHOLESTEROL ([facility]) (test code = 119 mg/dL 631) HDL CHOLESTEROL ([facility]) (test code 22 mg/dL = 976) LDL CHOLESTEROL CALCULATED ([facility]) 41 mg/dL (test code = 633) Triglyceride Reference Range: Low Risk <150 Borderline 150-199 High Risk 200-499 Very High Risk >=500Cholesterol Reference Range: Low Risk <200 Borderline 200-239 High Risk >240HDL Cholesterol Reference Range: Low Risk >=60 High Risk <40LDL Cholesterol Reference Range: Optimal <100 Near Optimal 100-129 Borderline 130-159 High 160-189 Very High >=190POCT-GLUCOSE [id number] 21:50:00 Test Item Value Reference Range Interpretation Comments POC-GLUCOSE METER 318 mg/dL 70-110 H TESTED AT [place] [address] ([facility]) (test code = ELIZABETH Flynn [place] 1538) [address] POCT-GLUCOSE [id number] 18:04:00 Test Item Value Reference Range Interpretation Comments POC-GLUCOSE METER 238 mg/dL 70-110 H TESTED AT [place] [address] ([facility]) (test code = ELIZABETH Flynn [place] 1538) [address] POCT-GLUCOSE [id number] 12:22:00 Test Item Value Reference Range Interpretation Comments POC-GLUCOSE METER 290 mg/dL 70-110 H TESTED AT [place] [address] ([facility]) (test code = ELIZABETH Flynn [place] 1538) [address] POCT-GLUCOSE [id number] 09:20:00 Test Item Value Reference Range Interpretation Comments POC-GLUCOSE METER 293 mg/dL 70-110 H TESTED AT [place] [address] ([facility]) (test code = ELIZABETH Flynn [place] 1538) [address] POCT-GLUCOSE [id number] 21:00:00 Test Item Value Reference Range Interpretation Comments POC-GLUCOSE METER 225 mg/dL 70-110 H TESTED AT [place] [address] ([facility]) (test code = ELIZABETH Flynn [place] 1538) [address] CT, CAROTID, [id number] 18:01:00FINAL REPORT CT angiogram of the upper [...] Petersen Verified Date/Time: 08/30/2017 18:01:31 Reading Location: [address] Neuro Reading Room , CTANGIO [id number] 18:01:00FINAL REPORT CT angiogram of the upper [...] [place] Verified Date/Time: 08/30/2017 18:01:31 Reading Location: [address] Neuro Reading Room -GLUCOSE [id number] 17:21:00 Test Item Value Reference Range Interpretation Comments POC-GLUCOSE METER 256 mg/dL 70-110 H TESTED AT [facility] [address] (BEAKER) (test code = [facility]ABETH Flynn [facility] 1538) [address] POCT-GLUCOSE [id number] 12:00:00 Test Item Value Reference Range Interpretation Comments POC-GLUCOSE METER 289 mg/dL 70-110 H TESTED AT [facility] [address] (BEAKER) (test code = [facility] 1538) [address] BASIC METABOLIC [id number] 10:12:00 Test Item Value Reference Range Interpretation [...] NOT APPLICABLE FOR DIALYSIS PATIEN TS. POCT-GLUCOSE [id number] 08:42:00 Test Item Value Reference Range Interpretation Comments POC-GLUCOSE METER 259 mg/dL 70-110 H TESTED AT [facility] [address] (BEAKER) (test code = [facility]ETH [place] 1538) [address] TROPONIN [id number] 06:14:00 Test Item Value Reference Range Interpretation [...] = 2801) RAD, CHEST, 1 VIEW, NON [id number] 04:23:00Reason for exam:->chest painShould this be performed at the bedside?->YesFINAL REPORT Comparison examination: None No pneumothorax, focal pulmonary co nsolidation, or significant pleural effusion. Normal cardiomediastinal contours. Normal skeleton and soft tissues. Impression: No acute abnormality. Signed: Ervin Jenkins Verified Date/Time: 08/30/2017 04:23:04 Reading Location: [address] Reading Room POCT-GLUCOSE [id number] 21:18:00 Test Item Value Reference Range Interpretation Comments POC-GLUCOSE METER 151 mg/dL 70-110 H TESTED AT [facility] [address] ([facility]) (test code = ELIZABETH Flynn [place] 1538) [address] POCT-GLUCOSE [id number] 17:59:00 Test Item Value Reference Range Interpretation Comments POC-GLUCOSE METER 146 mg/dL 70-110 H TESTED AT [facility] [address] ([facility]) (test code = ELIZABETH Flynn [place] 1538) [address] HEMOGLOBIN [id number] 15:56:00 Test Item Value Reference Range Interpretation Comments HEMOGLOBIN A1C (BEAKER) (test code = 13.7 % 4.3-6.1 H 368) CT, BRAIN, WITHOUT [id number] 14:52:00FINAL REPORT CT head without contrast. Comparisons: [...] Petersen Verified Date/Time: 08/29/2017 14:52:09 Reading Location: [address] Neuro Reading Room POCT-GLUCOSE [id number] 14:17:00 Test Item Value Reference Range Interpretation Comments POC-GLUCOSE METER 423 mg/dL 70-110 Notified Rina Low MD/TESTED ([facility]ESS[facility]) (test code = AT [facility] [address] [facility] 1538) [facility] 7703 0 VITAMIN [id number] 06:48:00 Test Item Value Reference Range Interpretation Comments VITAMIN B12 ([facility]ESSICA) (test code = 300 pg/mL 213-816 774) TSH/FREE T4 IF [id number] 06:48:00 Test Item Value Reference Range Interpretation Comments THYROID STIMULATING HORMONE 1.55 uIU/mL 0.35-4.94 (JESSICA) (test code = 772) CBC W/PLT COUNT & AUTO [id number] 05:10:00 Test Item Value Reference Range Interpretation Comments WH[facility] BLOOD CELL COUNT ([facility] 8.6 K/ L 3.5-10.5 (test code = 775) RED BLOOD CELL COUNT ([facility]) 4.62 M/ L 3.93-5.22 (test code = [...] (BEAKER) (test code = 2801) URINALYSIS W/ [id number] 23:32:00 Test Item Value Reference Range Interpretation [...] Occasional SOURCE(BEAKER) (test code = 2795) TROPONIN [id number] 23:12:00 Test Item Value Reference Range Interpretation [...] acute neurological disease, and persistent tachyarrhythmia.BASIC METABOLIC [id number] 23:05:00 Test Item Value Reference Range Interpretation [...] NOT APPLICABLE FOR DIALYSIS PATIEN TS. POCT-GLUCOSE [id number] 20:49:00 Test Item Value Reference Range Interpretation Comments POC-GLUCOSE METER 376 mg/dL 70-110 H Notified R Devante SOUZA/TESTED (BEAKER) (test code = AT [facility] [address] [address]) [facility] 7703 0
--- OUTSIDE RECORDS SUMMARY | 2019-12-19 11:23 | XMS REPORT | Clinical Summary ---
:1970 [facility] Address [address] [place] [address] Care Team Providers Name Role Phone Fahad Curran MD Primary Care Provider Allergies Active Allergy Reactions Severity Noted Date Comments Loratadine-Pseudoephedrine Other (See Comments) 2017 hyperactivity Prochlorperazine Other (See Comments) 08/28/2017 Sei chelsea Meperidine Rash Low 08/28/2017 Slyceviut-Ulxdlv-Slgthtau-Scop Itching, Rash Low 8 Morphine Rash Low [...] Not on file Results Not on fileafter 12/18/2018 Insurance Payer Benefit Plan / Subscriber ID Type Phone Address Group BLUE CROSS/BLUE BCBS PPO POS EPO xxxxxxxxxxxx PPO [phone] [address] [place] [address] Advance Directives For more information, please contact:[place] [phone] [facility] [address] [place], [place] [phone] Code Status Date Activated Date Inactivated Comments Full Code 08/28/2017 9:21 PM 09/01/2017 8:22 PM This code status was determined by: Patient
[2019-12-19] MEDS ORDERED: PROMETHAZINE INJ 25 MG/ML AMP ONE (12:04)
[2019-12-19] MEDS ORDERED: BUTORPHANOL 1 MG/ML INJ ONE ×2 (12:04→17:22)
[2019-12-19] MEDS ORDERED: NA CHLORIDE 0.9% 1,000 ML ONE ×2 (12:04→13:53)
--- NOTE | 2019-12-19 12:17 | RAD REPORT ---
EXAM DESCRIPTION: RAD - Chest Single View - 12/19/2019 12:10 pm CLINICAL HISTORY: CHEST PAIN Chest pain. COMPARISON: Abdomen 1 View (KUB) dated 11/13/2018; Chest Pa And Lat (2 Views) dated 08/15/2018; Chest Single View dated 08/28/2017; Abdomen Acute Series dated 06/10/2017 FINDINGS: Portable technique limits examination quality. The lungs are underinflated but grossly clear. The heart is normal in size. No displaced fractures. IMPRESSION: Underinflated lungs.
[2019-12-19 12:21] LABS: Absolute Lymphocytes (CBC) 2.7 K/uL (0.7-4.9); Basophils % 0.6 % (0-1.3); Hematocrit 44.4 % (36.0-45.0); Lymphocytes % 24.8 % (15.3-44.8); RBC Red Blood Cell Count 5.49 M/uL (3.86-4.86)
[2019-12-19 12:22] LABS: Protime INR 0.98
--- NOTE | 2019-12-19 12:22 | RAD REPORT ---
EXAM DESCRIPTION: CT - Head Brain Wo Cont - 12/19/2019 12:12 pm CLINICAL HISTORY: HEADACHE Headache, drowsiness, history of fall COMPARISON: Head Brain Wo Cont dated 12/16/2019; Head Brain Wo Cont dated 08/28/2017 TECHNIQUE: All CT scans are performed using dose optimization technique as appropriate and may inclu de automated exposure control or mA/KV adjustment according to patient size. FINDINGS: No intracranial hemorrhage, hydrocephalus or extra-axial fluid collection.No areas of brai n edema or evidence of midline shift. The paranasal sinuses and mastoids are clear. The calvarium is intact. Small left posterior scalp hem atoma. IMPRESSION: No acute intracranial abnormality.
[2019-12-19 12:42] LABS: Albumin 3.6 g/dL (3.4-5.0); Bilirubin Direct 0.1 mg/dL (0-0.2); Bilirubin Total 0.4 mg/dL (0.2-1.0); Magnesium 1.8 mg/dL (1.8-2.4); Potassium 4.5 mmol/L (3.5-5.1); Protein, Total 8.1 g/dL (6.4-8.2); Troponin (Emerg Dept Use Only) 0.04 ng/mL (0.0-0.045)
[2019-12-19] MEDS ORDERED: INSULIN -REGULAR HUMAN 50 UNIT/0.5 ML ML ONE ×2 (13:53→16:23)
--- NOTE | 2019-12-19 17:20 | ER ---
Nurse's Notes [facility] Name: Elly Clarke Age: 49 yrs Sex: Female : 1970 Arrival Date: 12/19/2019 Time: 11:17 Bed 5 Private MD: Pavel Curran T Diagnosis: Hyperglycemia, unspecified;Migraine Presentation: 12/18 11:42 Chief complaint: Patient states: has had a migraine, nausea, dizziness and keep falling iw because she is so dizzy, room spins when she lifts her head, symptoms started , was seen here Thursday, was feeling better but now symptoms have returned. Coronavirus screen: At this time, the client does not indicate any symptoms associated with coronavirus-19. Ebola Screen: Patient negative for fever greater than or equal to 101.5 degrees Fahrenheit, and additional compatible Ebola Virus Disease symptoms Patient denies exposure to infectious person. Patient denies travel to an Ebola-affected area in the 21 days before illness onset. No symptoms or risks identified at this time. Initial Sepsis Screen: Does the patient meet any 2 criteria? No. Patient's initial sepsis screen is negative. Does the patient have a suspected source of infection? No. Patient's initial sepsis screen is negative. Risk Assessment: Do you want to hurt yourself or someone else? Patient reports no desire to harm self or others. Onset of symptoms was December 15, 2019. 11:42 Method Of Arrival: Wheelchair iw 11:42 Acuity: HANNAH 3 iw Triage Assessment: 11:45 Headache History: The patient has had previous headaches and this one is similar to bp previous episodes. General: Appears distressed, uncomfortable, obese, Behavior is cooperative, appropriate for age, anxious, crying. Pain: Complains of pain in head Pain currently is 10 out of 10 on a pain scale. Pain began 2-3 days ago. Also complains of nausea. EENT: No deficits noted. Neuro: Level of Consciousness is awake, alert, obeys commands, Oriented to person, place, time, situation, Appropriate for age Reports headache. Cardiovascular: No deficits noted. Respiratory: No deficits noted. GI: No signs and/or symptoms were reported involving the gastrointestinal system. : No signs and/or symptoms were reported regarding the genitourinary system. Derm: No deficits noted. Musculoskeletal: No deficits noted. MILLER KILN DRIED SALT: 11:44 LMP N/A - iw Historical: - Allergies: 11:44 Claritin (insomnia); iw 11:44 Compazine (Seizures); iw 11:44 Demerol (HEART RACING); iw 11:44 (Hives); iw 11:44 Morphine (RACING HEART); iw - Home Meds: :44 tizanidine 2 mg Oral cap 2 caps twice a day [Active]; iw - PMHx: 11:44 Arthritis; Chrohns; Chronic pain; Diabetes - NIDDM; Dramatic migraine events; iw Gastroparesis; High Cholesterol; Hypertension; Migraines; Pancreatitis; spinal stenosis; - PSHx: 11:44 Hysterectomy; Knee surgery; Appendectomy; Cholecystectomy; iw - Immunization history:: Adult Immunizations not up to date. - Social history:: Smoking status: Patient denies any tobacco usage or history of. Screenin:45 Abuse screen: Denies threats or abuse. Denies injuries from another. Nutritional bp screening: No deficits noted. Tuberculosis screening: No symptoms or risk factors identified. Fall Risk None identified. Assessment: 11:45 General: SEE TRIAGE NOTE. Pain: Complains of pain in head. bp 13:30 Reassessment: BGL GROSSLY ABNORMAL, IVF INFUSING. bp 15:00 Reassessment: BGL IMPROVED. VS STABLE ON MONITOR. bp 16:00 Reassessment: PT MILDLY HYPOTENSIVE ON MONITOR. ALL CURRENT ORDERS COMPLETED, REPEAT bp BGL PENDING. 17:00 Reassessment: BGL IMPROVED 308, LMP NOTIFIED. bp 17:40 Reassessment: PT D/C HOME VIA W/C, DX WITH HYPERGLYCEMIA AND MIGRAINE. bp Vital Signs: 11:45 BP 83 / 59; Pulse 63; Resp 16 S; Temp 96.9; Pulse Ox 98% on R/A; Weight 93.89 kg; iw Height 5 ft. 9 in. (175.26 cm); Pain 8/10; 12:30 BP 86 / 53; Pulse 63; Resp 13; Pulse Ox 98% ; bp 13:30 BP 96 / 51; Pulse 70; Resp 13; Pulse Ox 99% ; bp 15:00 BP 108 / 70; Pulse 73; Resp 14; Pulse Ox 100% ; bp 16:00 BP 96 / 54; Pulse 98; Resp 20; Pulse Ox 100% ; bp 17:00 BP 101 / 62; Pulse 80; Resp 18; Pulse Ox 93% ; bp 11:45 Body Mass Index 30.57 (93.89 kg, 175.26 cm) ED Course: 11:17 Patient arrived in ED. mr 11:18 Pavel Curran MD is Private Physician. mr 11:33 [facility] pm1 11:33 Wil Patterson MD is Attending Physician. pm1 11:44 Triage completed. iw 11:45 Arm band placed on. iw 11:45 Patient has correct armband on for positive identification. Bed in low position. Call bp light in reach. Side rails up X2. 11:49 Real Muro, NAT is Primary Nurse. bp 12:00 Inserted saline lock: 20 gauge in left antecubital area, using aseptic technique. Blood bp collected. 12:05 XRAY Chest (1 view) In Process Unspecified. EDMS 12:12 CT Head Brain wo Cont In Process Unspecified. EDMS 12:57 EKG done, by ED staff, reviewed by Jose A Leung NP. dh3 17:40 No provider procedures requiring assistance completed. IV discontinued, intact, bp bleeding controlled, No redness/swelling at site. Pressure dressing applied. Administered Medications: 12:00 Drug: Stadol 1 mg Route: IVP; Site: left antecubital; bp 13:36 Follow up: Response: Pain is decreased bp 12:00 Drug: Phenergan 12.5 mg Route: IVP; Site: left antecubital; bp 13:36 Follow up: Response: No adverse reaction bp 12:00 Drug: NS 0.9% 1000 ml Route: IV; Rate: 1000 ml; Site: left antecubital; bp 17:43 Follow up: IV Status: Completed infusion; IV Intake: 1000ml bp 13:30 Drug: Insulin Regular Human 10 units {Co-Signature: em (Storm Chaparro RN).} Route: IVP; bp Site: left antecubital; 16:06 Follow up: Response: Blood sugar is lowered bp 13:30 Drug: NS 0.9% 1000 ml Route: IV; Rate: 1000 ml; Site: left antecubital; bp 17:43 Follow up: IV Status: Completed infusion; IV Intake: 1000ml bp 16:24 Drug: Insulin Regular Human 5 units {Co-Signature: iw Alexander Prince RN).} Route: IVP; bp Site: left antecubital; 17:17 Follow up: Response: Blood sugar is lowered bp 17:15 Drug: Stadol 1 mg Route: IVP; Site: left antecubital; bp 17:43 Follow up: Response: Pain is decreased bp Intake: 17:43 IV: 1000ml; Total: 1000ml. bp 17:43 IV: 1000ml; Total: 2000ml. bp Outcome: 17:20 Discharge ordered by . pm1 17:40 Discharged to home via wheelchair. bp 17:40 Condition: stable 17:40 Discharge instructions given to patient, Instructed on discharge instructions, follow up and referral plans. medication usage, Demonstrated understanding of instructions, follow-up care, medications, Prescriptions given X 2. 17:44 Patient left the ED. bp Signatures: Dispatcher [employer] NARESH RonaldAngelika Irene, RN RN iw Jose A Leung, MASTER OCEAN MASTER OCEAN pm1 Sejal Starkey 3 Real Muro RN RN bp Storm Chaparro RN Kenisha Prince RN iw Corrections: (The following items were deleted from the chart) 11:47 11:45 Pulse 63bpm; Resp 16bpm; Spontaneous; Pulse Ox 98% RA; Temp 96.9F; 93.89 kg; iw Height 5 ft. 9 in.; BMI: 30.5; Pain 8/10; iw
--- NOTE | 2019-12-19 17:20 | EDPHYS ---
Physician Documentation [facility] Name: Elly Clarke Age: 49 yrs Sex: Female : 1970 Arrival Date: 12/19/2019 Time: 11:17 Bed 5 Private MD: Pavel Curran T ED Physician Wil Patterson HPI: 12/18 12:03 This 49 yrs old Female presents to ER via Wheelchair with complaints of pm1 Headache, Nausea, Dizziness. 12:03 The patient complains of pain to the top of head and forehead. The patient describes pm1 the headache as constant, throbbing. Onset: The symptoms/episode began/occurred 4 day(s) ago. Associated signs and symptoms: Pertinent positives: dizziness, nausea, vomiting, Chest pain with standing up. Severity of symptoms: in the emergency department the pain is actually worse. Headache History: Other Has seen her pain management for the same headache is typically given Stadol for her pain. The symptoms are alleviated by nothing. the symptoms are aggravated by lights, noise. The patient has been recently seen at the [facility] Emergency Department, for similar complaints CT scan was performed. 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 - Social history:: Smoking status: Patient denies any tobacco usage or history of. ROS: 12:03 Constitutional: Negative for fever, chills, and weight loss, Respiratory: Negative for pm1 shortness of breath, cough, wheezing, and pleuritic chest pain. 12:03 Back: Negative for injury and pain, MS/Extremity: Negative for injury and deformity, Skin: Negative for injury, rash, and discoloration. 12:03 Cardiovascular: Positive for chest pain, Negative for edema, palpitations. 12:03 Abdomen/GI: Positive for nausea and vomiting, Negative for abdominal pain, diarrhea. 12:03 Neuro: Positive for dizziness, headache. Exam: 12:03 Constitutional: This is a well developed, well nourished patient who is awake, alert, pm1 and in no acute distress. Head/Face: Normocephalic, atraumatic. Neck: Trachea midline, no thyromegaly or masses palpated, and no cervical lymphadenopathy. Supple, full range of motion without nuchal rigidity, or vertebral point tenderness. No Meningismus. Chest/axilla: Normal chest wall appearance and motion. Nontender with no deformity. No lesions are appreciated. Cardiovascular: Regular rate and rhythm with a normal S1 and S2. No gallops, murmurs, or rubs. Normal PMI, no JVD. No pulse deficits. Respiratory: Lungs have equal breath sounds bilaterally, clear to auscultation and percussion. No rales, rhonchi or wheezes noted. No increased work of breathing, no retractions or nasal flaring. 12:03 Back: No spinal tenderness. No costovertebral tenderness. Full range of motion. Skin: Warm, dry with normal turgor. Normal color with no rashes, no lesions, and no evidence of cellulitis. MS/ Extremity: Pulses equal, no cyanosis. Neurovascular intact. Full, normal range of motion. 12:03 Abdomen/GI: Exam negative for acute changes, Inspection: abdomen appears normal, Palpation: abdomen is soft and non-tender, in all quadrants. 12:03 Neuro: Exam negative for acute changes, Orientation: is normal, Mentation: is normal, Motor: is normal, moves all fours. Vital Signs: 11:45 BP 83 / 59; Pulse 63; Resp 16 S; Temp 96.9; Pulse Ox 98% on R/A; Weight 93.89 kg; iw Height 5 ft. 9 in. (175.26 cm); Pain 8/10; 12:30 BP 86 / 53; Pulse 63; Resp 13; Pulse Ox 98% ; bp 13:30 BP 96 / 51; Pulse 70; Resp 13; Pulse Ox 99% ; bp 15:00 BP 108 / 70; Pulse 73; Resp 14; Pulse Ox 100% ; bp 16:00 BP 96 / 54; Pulse 98; Resp 20; Pulse Ox 100% ; bp 17:00 BP 101 / 62; Pulse 80; Resp 18; Pulse Ox 93% ; bp 11:45 Body Mass Index 30.57 (93.89 kg, 175.26 cm) iw MDM: 11:39 Patient medically screened. pm1 13:03 ED course: Anion gap = 10. Corrected sodium due to hyperglycemia = 138. pm1 15:57 Data reviewed: vital signs. Data interpreted: Pulse oximetry: on room air is 100 %. pm1 Interpretation: normal. 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 17:24 ED course: CODING AND REIMBURSEMENT SPECIALIST Aware reviewed. Patient has finished her tramadol from 12/16/2019. pm1 12/18 11:46 Order name: Basic Metabolic Panel; Complete Time: 12:57 pm1 12/18 11:46 Order name: CBC with Diff; Complete Time: 12:27 pm1 12/18 11:46 Order name: LFT's; Complete Time: 12:57 pm1 12/18 11:46 Order name: Magnesium; Complete Time: 12:57 pm1 12/18 11:46 Order name: NT PRO-BNP; Complete Time: 12:57 pm1 12/18 11:46 Order name: PT-INR; Complete Time: 12:27 pm1 12/18 11:46 Order name: Troponin (emerg Dept Use Only); Complete Time: 12:57 pm1 12/18 11:46 Order name: XRAY Chest (1 view); Complete Time: 12:21 pm1 12/18 11:46 Order name: CT Head Brain wo Cont; Complete Time: 12:27 pm1 12/18 15:19 Order name: Glucose, Ancillary Testing; Complete Time: 15:37 EDMS 12/18 17:25 Order name: Glucose, Ancillary Testing; Complete Time: 17:34 EDMS 12/18 11:46 Order name: EKG; Complete Time: 11:47 pm1 12/18 11:46 Order name: Cardiac monitoring; Complete Time: 12:08 pm1 12/18 11:46 Order name: EKG - Nurse/Tech; Complete Time: 13:05 pm1 12/18 11:46 Order name: IV Saline Lock; Complete Time: 12:08 pm1 12/18 11:46 Order name: Labs collected and sent; Complete Time: 12:08 pm1 12/18 11:46 Order name: O2 Per Protocol; Complete Time: 11:50 pm1 12/18 11:46 Order name: O2 Sat Monitoring; Complete Time: 11:49 pm1 12/18 14:45 Order name: Glucose Level; Complete Time: 15:11 pm1 Administered Medications: 12:00 Drug: Stadol 1 mg Route: IVP; Site: left antecubital; bp 13:36 Follow up: Response: Pain is decreased bp 12:00 Drug: Phenergan 12.5 mg Route: IVP; Site: left antecubital; bp 13:36 Follow up: Response: No adverse reaction bp 12:00 Drug: NS 0.9% 1000 ml Route: IV; Rate: 1000 ml; Site: left antecubital; bp 17:43 Follow up: IV Status: Completed infusion; IV Intake: 1000ml bp 13:30 Drug: Insulin Regular Human 10 units {Co-Signature: em (Storm Chaparro RN).} Route: IVP; bp Site: left antecubital; 16:06 Follow up: Response: Blood sugar is lowered bp 13:30 Drug: NS 0.9% 1000 ml Route: IV; Rate: 1000 ml; Site: left antecubital; bp 17:43 Follow up: IV Status: Completed infusion; IV Intake: 1000ml bp 16:24 Drug: Insulin Regular Human 5 units {Co-Signature: iw (Kenisha Prince RN).} Route: IVP; bp Site: left antecubital; 17:17 Follow up: Response: Blood sugar is lowered bp 17:15 Drug: Stadol 1 mg Route: IVP; Site: left antecubital; bp 17:43 Follow up: Response: Pain is decreased bp Disposition: 17:49 Co-signature as Attending Physician, Wil Patterson MD. rn Disposition: 12/19/19 17:20 Discharged to Home. Impression: Hyperglycemia, unspecified, Migraine. - Condition is Stable. - Discharge Instructions: Migraine Headache, Hyperglycemia, Blood Glucose Monitoring, Adult, Diabetes and Exercise. - Prescriptions for Tramadol 50 mg Oral Tablet - take 1 tablet by ORAL route every 8 hours as needed; 12 tablet. promethazine 25 mg Oral Tablet - take 1 tablet by ORAL route every 6 hours As needed; 20 tablet. - Medication Reconciliation Form, Thank You Letter, Antibiotic Education, Prescription Opioid Use form. - Follow up: Emergency Department; When: As needed; Reason: Worsening of condition. Follow up: Private Physician; When: 2 - 3 days; Reason: Recheck today's complaints, Continuance of care, Re-evaluation by your physician. - Problem is new. - Symptoms have improved. Signatures: Dispatcher [employer] Kenisha Gil RN RN iw Wil Patterson MD MD rn Marinas, Patrick, KRZYSZTOF DEMAND GENERATOR MANAGER pm1 Real Muro RN RN bp Storm Chaparro RN em Kenisha Prince RN iw Corrections: (The following items were deleted from the chart) 17:44 17:20 12/19/2019 17:20 Discharged to Home. Impression: Hyperglycemia, unspecified; bp Migraine. Condition is Stable. Forms are Medication Reconciliation Form, Thank You Letter, Antibiotic Education, Prescription Opioid Use. Follow up: Emergency Department; When: As needed; Reason: Worsening of condition. Follow up: Private Physician; When: 2 - 3 days; Reason: Recheck today's complaints, Continuance of care, Re-evaluation by your physician. Problem is new. Symptoms have improved. pm1
[2019-12-19 18:11] VITALS: TEMP 96.9
[2019-12-19 18:17] VITALS: BP 101/62; O2SAT 93
--- NOTE | 2019-12-20 12:18 | EKG ---
Test Date: 2019-12-19 Test Time: 12:57:52 C Software Engineer: JAYJAY MEASUREMENT RESULTS: Intervals: Rate: 67 ND: 158 QRSD: 94 QT: 466 QTc: 492 [place]: P: 6 ND: 158 QRS: -25 T: 56 INTERPRETIVE STATEMENTS: Normal sinus rhythm Prolonged QT Abnormal ECG Compared to ECG 08/28/2017 12:09:00 Prolonged QT interval now present Electronically Signed On 12-20-19 12:15:14 CDT by Surendra Zhang
== END 2019-12-19 17:44 | disposition home or self-care (01) ==
LOC: ER 11:15
DX: G43.909 Migraine, unspecified, not intractable, without status migrainosus (principal); E11.65 Type 2 diabetes mellitus with hyperglycemia; I10 Essential (primary) hypertension
CPT/HCPCS: 36415; 70450; 71045; 80048; 80076; 82947; 83735; 83880; 84484; 85025; 85610; 93005; 96361; 96374; 96375; 99284; J0595; J2550; J7030

== ENCOUNTER 2020-02-29 15:08 | Emergency (ER) | payer SELFPAY ==
[2011-12-22 05:16] VITALS: BP 114/69
--- OUTSIDE RECORDS SUMMARY | 2020-02-29 15:13 | XMS REPORT | Continuity of Care Document ---
:1970 Author Organization [facility] t Address [address] [place] [address] Care Team Providers Name Role Phone Fahad [...] numbness 08-29 [facility] - 00:00: Medical 00 [facility] Neurologic Neurologic Disease Active [facility] 08-28 [facility] - symptoms symptoms 00:00: Medica l 00 Center Allergies, Adverse Reactions, Alerts Allergy Allergy Status Severity Reaction(s) Onset Inactive Treating Comm ents Source Name Type Date Date Clinician Baldo Shorti Active Other (See hyperacti [facility] ne-Pseud ty to Comments) 08-28 vity [facility] - oephedri adverse 00:00: Medical ne reaction 00 [facility] Procpricilla Shorti Active Other (See Seizures [facility] perazine ty to Comments) 08-28 [facility] - adverse 00:00: Medical reaction 00 Center s Meperidi Propensi Active Rash [facility] ty to 08-28 [facility] - adverse 00:00: Medical reaction 00 Center s Phenobar Drug Active Itching, [facility] b-Hyoscy Allergy Rash 08-28 [facility] - -Atropin 00:00: Medical e-Scop 00 Center Morphine Propensi Active Rash [facility] ty to 08-28 [facility] - adverse 00:00: Medical reaction 00 Center s Social History Social Habit Start Date Stop Date Quantity Comments Source Sex Assigned At [facility] Tobacco use and 2017-08-28 2017-08-28 Never used [facility] kes - exposure 00:00:00 00:00:00 [facility] Smoking Status Start Date Stop Date Source Never smoker [facility] Medications Ordered Filled Start Stop Current Ordering Indication Dosage Frequency Signature Comments Components Source Medication Medication Date Date Medication? Clinician (SIG) Name Name traMADol 2017- Yes 50mg Q.5D Take [address] [facility] (ULTRAM) 50 6-05 by mouth 2 Yu kes - mg tablet 18:22: (two) Medical 22 times Center daily. butorphanol 2018-0 Yes 1{spray [address] [facility] (STADOL) 10 6-05 } Nasal [facility] - mg/mL nasal 18:22: route Medic al spray 22 every 4 Center (four) hours as needed for Pain. amitriptyli 2017-0 Yes 10mg QD Take [address] [facility] (ELAVIL) 6-05 by mouth Luke s - 10 MG 18:22: nightly. Medical tablet 22 Center tiZANidine Yes 4mg Take [address] (ZANAFLEX) 6-05 by mouth [facility] - 2 MG tablet 18:22: every 6 Med ical 22 (six) Center hours as needed. Procedures This patient has no known procedures. Plan of Care Planned Activity Planned Date Details Comments Source Future Scheduled 2020-09-[address] [facility] - Test 00:00:00 (procedure) [code = Medical Center 69688296] Future Scheduled 2019-11-29 INFLUENZA VACCINE (#1) [facility] Test 00:00:00 [code = INFLUENZA Medical Ce nter VACCINE (#1)] Future Scheduled 2017-11-[address] - Test 00:00:00 measurement [facility] (procedure) [code = 65202107] Future Scheduled [address] [facility] - Test 00:00:00 malignant neoplasm of [facility] cervix (procedure) [code = 043764295] Future Scheduled [address] DIABETIC EYE EXAM [facility] - Test 00:00:00 [code = DIABETIC EYE Medical Center EXAM] Future Scheduled 1979 Urine screening for [facility] - Test 00:00:00 protein (procedure) [facility] [code = 426710132] Future Scheduled [address] [facility] - Test 00:00:00 0-64 YRS (1 of 1 - Medical C enter PPSV23) [code = PNEUMOCOCCAL VACCINE 0-64 YRS (1 of 1 - PPSV23)] Future Scheduled [address] [facility] - Test 00:00:00 malignant neoplasm of [facility] breast (procedure) [code = 755650964] Future Scheduled [address] [facility] - Test 00:00:00 malignant neoplasm of [facility] colon (procedure) [code = 456647236] Encounters Start End Encounter Admission Attending Care Care Encounter Source Date/Time Date/Time Type Type Clinicians Facility Department ID 2019-08-21 2019-08-22 Emergency [facility] [id number] 23:48:04 02:26:00 Jose Cruz Suarez [id number] [place] [id number] [place] [id number] 2019-08-06 2019-08-06 Telephone IQRA Barragan [id number] 00:00:00 00:00:00 Apoorva JENKINS [id number]686 [id number] 2019-08-06 2019-08-06 Telephone IQRA Box [id number] 00:00:00 00:00:00 Jinny JENKINS [id number]686 [id number] 2019-08-05 2019-08-05 Telephone IQ[facility] Box [id number] 00:00:00 00:00:00 Jinny JENKINS [id number] [facility] [id number] Results Test Description Test Time Test Comments Results Result Comments Source POCT-GLUCOSE METER 2017-09-01 17:07:00 Test Item Value Reference Range Interpretation Comme nts POC-GLUCOSE METER ([facility]) (test 298 mg/dL 70-110 H TESTED AT [address] code = 1538) [facility] 7[address] 0 POCT-GLUCOSE [id number] 12:11:00 Test Item Value Reference Range Interpretation Comments POC-GLUCOSE METER 331 mg/dL 70-110 H Notified Rina Low MD/TESTED ([facility]) (test code = AT [address] 1538) [facility] 7703 0 POCT-GLUCOSE [id number] 10:55:00 Test Item Value Reference Range Interpretation Comments POC-GLUCOSE METER 365 mg/dL 70-110 H TESTED AT [place] [address] ([facility]) (test code = ELIZABETH Flynn [facility] 1538) [id number] POCT-GLUCOSE [id number] 08:44:00 Test Item Value Reference Range Interpretation Comments POC-GLUCOSE METER 291 mg/dL 70-110 H TESTED AT [place] [address] ([facility]) (test code = CHRISTROXANNE Flynn [facility] 1538) [address] LIPID [id number] 05:56:00 Test Item Value Reference Range Interpretation Comments TRIGLYCERIDES ([facility]) (test code = 279 mg/dL 540) CHOLESTEROL ([facility]) (test code = 119 mg/dL 631) HDL CHOLESTEROL ([facility]) (test code 22 mg/dL = 976) LDL CHOLESTEROL CALCULATED ([facility]) 41 mg/dL (test code = 633) Triglyceride Reference Range: Low Risk <150 Borderline 150-199 High Risk 200-499 Very High Risk >=500Cholesterol Reference Range: Low Risk <200 Borderline 200-239 High Risk >240HDL Cholesterol Reference Range: Low Risk >=60 High Risk <40LDL Cholesterol Reference Range: Optimal <100 Near Optimal 100-129 Borderline 130-159 High 160-189 Very High >=190POCT-GLUCOSE [id number] 21:50:00 Test Item Value Reference Range Interpretation Comments POC-GLUCOSE METER 318 mg/dL 70-110 H TESTED AT [place] [address] ([facility]) (test code = ELIZABETH Flynn [facility] 1538) [address] POCT-GLUCOSE [id number] 18:04:00 Test Item Value Reference Range Interpretation Comments POC-GLUCOSE METER 238 mg/dL 70-110 H TESTED AT [place] [address] ([facility]) (test code = ELIZABETH Flynn [facility] 1538) [address] POCT-GLUCOSE [id number] 12:22:00 Test Item Value Reference Range Interpretation Comments POC-GLUCOSE METER 290 mg/dL 70-110 H TESTED AT [place] [address] ([facility]) (test code = ELIZABETH Flynn [facility] 1538) [address] POCT-GLUCOSE [id number] 09:20:00 Test Item Value Reference Range Interpretation Comments POC-GLUCOSE METER 293 mg/dL 70-110 H TESTED AT [place] [address] ([facility]) (test code = ELIZABETH Flynn [facility] 1538) [address] POCT-GLUCOSE [id number] 21:00:00 Test Item Value Reference Range Interpretation Comments POC-GLUCOSE METER 225 mg/dL 70-110 H TESTED AT [place] [address] ([facility]) (test code = ELIZABETH Flynn [facility] 1538) [address] CT, CAROTID, [id number] 18:01:00FINAL REPORT CT angiogram of the upper [...] Petersen Verified Date/Time: 08/30/2017 18:01:31 Reading Location: [address] Neuro Reading Room , CTANGIO [id number] 18:01:00FINAL REPORT CT angiogram of the upper [...] Petersen Verified Date/Time: 08/30/2017 18:01:31 Reading Location: [address] Neuro Reading Room -GLUCOSE [id number] 17:21:00 Test Item Value Reference Range Interpretation Comments POC-GLUCOSE METER 256 mg/dL 70-[address] [facility] 67[address] [facility] (test code = [facility] 1538) [address] POCT-GLUCOSE [id number] 12:00:00 Test Item Value Reference Range Interpretation Comments POC-GLUCOSE METER 289 mg/dL 70-110 H TESTED AT [place] [address] ([facility] (test code = [facility] 1538) [address] BASIC METABOLIC [id number] 10:12:00 Test Item Value Reference Range Interpretation [...] NOT APPLICABLE FOR DIALYSIS PATIEN TS. POCT-GLUCOSE [id number] 08:42:00 Test Item Value Reference Range Interpretation Comments POC-GLUCOSE METER 259 mg/dL 70-[address] [facility] 6720 (BEAKER) (test code = [facility] 1538) [address] TROPONIN [id number] 06:14:00 Test Item Value Reference Range Interpretation [...] = 2801) RAD, CHEST, 1 VIEW, NON [id number] 04:23:00Reason for exam:->chest painShould this be performed at the bedside?->YesFINAL REPORT Comparison examination: None No pneumothorax, focal pulmonary co nsolidation, or significant pleural effusion. Normal cardiomediastinal contours. Normal skeleton and soft tissues. Impression: No acute abnormality. Signed: Ervin Jenkins Verified Date/Time: 08/30/2017 04:23:04 Reading Location: [address] Reading Room POCT-GLUCOSE [id number] 21:18:00 Test Item Value Reference Range Interpretation Comments POC-GLUCOSE METER 151 mg/dL 70-[address] [facility] 67 ([facility]) (test code = [facility] 1538) [address] POCT-GLUCOSE [id number] 17:59:00 Test Item Value Reference Range Interpretation Comments POC-GLUCOSE METER 146 mg/dL 70-[address] [facility] 6720 ([facility]) (test code = [facility] 1538) [address] HEMOGLOBIN [id number] 15:56:00 Test Item Value Reference Range Interpretation Comments HEMOGLOBIN A1C ([facility]) (test code = 13.7 % 4.3-6.1 H 368) CT, BRAIN, WITHOUT [id number] 14:52:00FINAL REPORT CT head without contrast. Comparisons: [...] Petersen Verified Date/Time: 08/29/2017 14:52:09 Reading Location: [facility] C013V Neuro Reading Room POCT-GLUCOSE [id number] 14:17:00 Test Item Value Reference Range Interpretation Comments POC-GLUCOSE METER 423 mg/dL 70-110 Notified R Devante SOU[facility]TESTED [facility] (test code = AT [facility] [address] [facility] 1538) [facility] 7703 0 VITAMIN [id number] 06:48:00 Test Item Value Reference Range Interpretation Comments VITAMIN B12 (BEAKER) (test code = 300 pg/mL 213-816 774) TSH/FREE T4 IF [id number] 06:48:00 Test Item Value Reference Range Interpretation Comments THYROID STIMULATING HORMONE 1.55 uIU/mL 0.35-4.94 (BEAKER) (test code = 772) CBC W/PLT COUNT & AUTO [id number] 05:10:00 Test Item Value Reference Range Interpretation [...] (BEAKER) (test code = 2801) URINALYSIS W/ [id number] 23:32:00 Test Item Value Reference Range Interpretation [...] Occasional SOURCE(BEAKER) (test code = 2795) TROPONIN [id number] 23:12:00 Test Item Value Reference Range Interpretation [...] acute neurological disease, and persistent tachyarrhythmia.BASIC METABOLIC [id number] 23:05:00 Test Item Value Reference Range Interpretation [...] hemolyzed GLUCOSE RANDOM 326 mg/dL 70-105 H (JESSICA) (test code = 652) CALCIUM (JESSICA) 9.6 mg/dL 8.4-10.2 (test code = 697) EGFR (JESSICA) (test 36 mL/min/1.73 ESTIMA JENY GFR IS code = 1092) sq m NOT ACCURATE CREATININE CLEARANCE IN PREDICTING GLOMERULAR FILTRATION RATE . ESTIMATED GFR I S NOT APPLICABLE FOR DIALYSIS PATIEN TS. POCT-GLUCOSE [id number] 20:49:00 Test Item Value Reference Range Interpretation Comments POC-GLUCOSE METER 376 mg/dL 70-110 H Notified R N /TESTED (JESSICA) (test code = AT [facility] [address] [facility] 5967) [facility] 7703 0
--- OUTSIDE RECORDS SUMMARY | 2020-02-29 15:13 | XMS REPORT | Clinical Summary ---
:1970 Author [facility] Address [address] [place] [address] Care Team Providers Name Role Phone Fahad Curran MD Primary Care Provider Allergies Active Allergy Reactions Severity Noted Date Comments Loratadine-Pseudoephedrine Other (See Comments) 2017 hyperactivity Prochlorperazine Other (See Comments) 08/28/2017 Sei zures Meperidine Rash Low 08/28/2017 Bjrtozwdp-Nvxfcw-Glxpgokw-Scop Itching, Rash Low 8 Morphine Rash Low [...] Not on file Last Filed Vital Signs Not on file Plan of Treatment Health Maintenance Due Date Last Done Comments BREAST CANCER SCREENING 1970 COLON CANCER SCREENING COLONOSCOPY 1969 PNEUMOCOCCAL VACCINE 0-64 YRS (1 of 1 - PPSV23) 1975 DIABETIC EYE EXAM 1979 URINE MICROALBUMIN 1979 CERVICAL CANCER SCREENING PAP ONLY (Age 21-65) 1990 HEMOGLOBIN A1C 11/29/2017 08/29/2017 INFLUENZA VACCINE (#1) 2019 LIPID PANEL 09/01/2020 09/01/2017 Results Not on fileafter 02/28/2019 Insurance Payer Benefit Plan / Subscriber ID Effective Dates Phone Addre ss Type Group BLUE BCBS PPO POS [id number]-Riky [phone] [address] [address] PPO CROSS/BLUE EPO CHOICE t 2 [facility] [phone] ([place]) [place] [address] Advance Directives For more information, please contact: [phone] Code Status Date Activated Date Inactivated Comments Full Code 08/28/2017 9:21 PM 09/01/2017 8:22 PM This code status was determined by: Patient
[2020-02-29] MEDS ORDERED: METOCLOPRAMIDE 10 MG/2mL INJ ONE (18:56)
[2020-02-29] MEDS ORDERED: KETOROLAC 30 MG/ML INJ ONE (18:56)
[2020-02-29] MEDS ORDERED: NA CHLORIDE 0.9% 1,000 ML ONE (18:56)
[2020-02-29] MEDS ORDERED: DIPHENHYDRAMINE 50 MG/ML VIAL ONE (18:56)
--- NOTE | 2020-02-29 19:33 | ER ---
Nurse's Notes [facility] Name: Elly Clarke Age: 50 yrs Sex: Female : 1970 Arrival Date: 02/29/2020 Time: 15:10 Bed 15 Private MD: Diagnosis: Migraine Presentation: 02/28 15:36 Chief complaint: Patient states: Migraine since Thursday last week. Hx of migraines. ca1 Reports neck pain, sees pain doctor, but has not been able to. Coronavirus screen:. Ebola Screen: Patient negative for fever greater than or equal to 101.5 degrees Fahrenheit, and additional compatible Ebola Virus Disease symptoms Patient denies exposure to infectious person. Patient denies travel to an Ebola-affected area in the 21 days before illness onset. No symptoms or risks identified at this time. Initial Sepsis Screen: Does the patient meet any 2 criteria? No. Patient's initial sepsis screen is negative. Does the patient have a suspected source of infection? No. Patient's initial sepsis screen is negative. Risk Assessment: Do you want to hurt yourself or someone else? Patient reports no desire to harm self or others. Onset of symptoms was February 29, 2020. 15:36 Method Of Arrival: Ambulatory ca1 15:36 Acuity: HANNAH 3 ca1 Triage Assessment: 23:26 Headache History: The patient has had previous headaches and this one is more severe zb than previous episodes. 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 - Hysterectomy ca1 Historical: - Allergies: 15:39 Claritin (insomnia); ca1 15:39 Compazine (Seizures); ca1 15:39 Demerol (HEART RACING); ca1 15:39 Morphine (RACING HEART); ca1 15:39 (Hives); ca1 - Home Meds: 15:39 metformin 500 mg Oral tab 1 tab 2 times per day [Active]; tizanidine 2 mg Oral cap 2 ca1 caps twice a day [Active]; tramadol 50 mg Oral tab 1 tab three times a day [Active]; - PMHx: 15:39 Arthritis; Chrohns; Chronic pain; Diabetes - NIDDM; Dramatic migraine events; ca1 Gastroparesis; High Cholesterol; Hypertension; Migraines; Pancreatitis; spinal stenosis; - PSHx: 15:39 Hysterectomy; Knee surgery; Appendectomy; Cholecystectomy; ca1 - Immunization history:: Adult Immunizations up to date, Flu vaccine is not up to date. - Social history:: Smoking status: Patient denies any tobacco usage or history of. Screenin:30 Abuse screen: Denies threats or abuse. Denies injuries from another. Nutritional zb screening: No deficits noted. Tuberculosis screening: No symptoms or risk factors identified. Fall Risk None identified. Assessment: 18:29 General: Appears comfortable, Behavior is calm, cooperative, appropriate for age. Pain: zb Complains of pain in top of head Pain currently is 10 out of 10 on a pain scale. Quality of pain is described as aching, pressure, Pain began 2-3 days ago. Is continuous, Also complains of nausea, photophobia. Neuro: Level of Consciousness is awake, alert, obeys commands, Oriented to person, place, time, situation, Reports headache top of head photophobia Denies blurred vision. 18:29 Cardiovascular: Heart tones S1 S2 Capillary refill < 3 seconds in bilateral fingers zb Patient's skin is warm and dry. Respiratory: Airway is patent Respiratory effort is even, unlabored, Respiratory pattern is regular. GI: No signs and/or symptoms were reported involving the gastrointestinal system. : No signs and/or symptoms were reported regarding the genitourinary system. EENT: No signs and/or symptoms were reported regarding the EENT system. Derm: Skin is intact, is healthy with good turgor, Skin is normal. Musculoskeletal: Circulation, motion, and sensation intact. Range of motion: intact in all extremities. 19:57 Reassessment: discharge pending medication. zb 20:12 Reassessment: discharge pending shot time. jd3 Vital Signs: 15:36 BP 166 / 89; Pulse 91; Resp 18 S; Temp 97.5(TE); Pulse Ox 100% on R/A; Weight 93.44 kg ca1 (R); Height 5 ft. 7 in. (170.18 cm) (R); Pain 8/10; 15:36 Body Mass Index 32.26 (93.44 kg, 170.18 cm) ca1 [place] Coma Score: 19:37 Eye Response: spontaneous(4). Verbal Response: oriented(5). Motor Response: obeys kb commands(6). Total: 15. ED Course: 15:10 Patient arrived in ED. as 15:38 Triage completed. ca1 15:39 [facility] kb 15:39 George Stern MD is Attending Physician. kb 15:39 Arm band placed on right wrist. ca1 18:29 Tori Avendaño RN is Primary Nurse. zb 19:00 Missed attempt(s): 20 gauge in left antecubital area. Bleeding controlled, band aid jd3 applied, catheter tip intact. 19:10 Missed attempt(s): 20 gauge in left antecubital area. Bleeding controlled, band aid jd3 applied, catheter tip intact. 19:18 Missed attempt(s): 20 gauge in right antecubital area. Bleeding controlled, band aid jd3 applied, catheter tip intact. 20:30 Patient has correct armband on for positive identification. Call light in reach. Side zb rails up X 1. 20:30 No provider procedures requiring assistance completed. Patient did not have IV access zb during this emergency room visit. Administered Medications: 19:20 Not Given (Other Intervention Used): NS 0.9% 1000 ml IV at 1000 ml once jd3 19:20 Not Given (Physician Discretion): TORadol - Ketorolac 15 mg IVP once jd3 19:21 Not Given (Physician Discretion): Reglan 10 mg IVP once; over 1 to 2 minutes jd3 19:21 Not Given (Physician Discretion): Benadryl 12.5 mg IVP once jd3 19:56 Drug: Ondansetron (Zofran) 4 mg Route: PO; zb 19:56 Drug: Decadron 10 mg Route: IM; Site: right gluteus; zb 20:11 Drug: Stadol 1 mg Route: IM; Site: left gluteus; zb Outcome: 19:31 Discharge ordered by . kb 20:45 Discharged to home ambulatory. zb 20:45 Condition: stable 20:45 Discharge instructions given to patient, Instructed on discharge instructions, follow up and referral plans. medication usage, Demonstrated understanding of instructions, follow-up care, medications, Prescriptions given X 1. 20:50 Patient left the ED. zb Signatures: Cookie Walker FNP-C FNP-Lashell Toledo Jonathon, RN RN jd3 Katia Wan RN RN ca1 Brown, Tori, RN RN zb Corrections: (The following items were deleted from the chart) 23:31 18:29 Neuro: Level of Consciousness is awake, alert, obeys commands, Oriented to zb person, place, time, situation, Reports headache top of head photophobia zb 23:32 18:29 Pain: Complains of pain in top of head Quality of pain is described as aching, zb pressure, Pain began 2-3 days ago. Is continuous, Also complains of nausea, photophobia, zb
--- NOTE | 2020-02-29 19:33 | EDPHYS ---
Physician Documentation [facility] Name: Elly Clarke Age: 50 yrs Sex: Female : 1970 Arrival Date: 02/29/2020 Time: 15:10 Bed 15 Private MD: ED Physician George Stern HPI: 02/28 19:35 This 50 yrs old Female presents to ER via Ambulatory with complaints of kb Headache. 19:35 The patient complains of pain to the top of head. The patient describes the headache as kb constant. Onset: The symptoms/episode began/occurred 1 week(s) ago. Associated signs and symptoms: Pertinent positives: nausea, Photophobia vomiting. Severity of symptoms: At its worst the pain was moderate, in the emergency department the pain is unchanged. Headache History: The patient has had previous headaches and this one is similar to previous episodes. The symptoms are alleviated by nothing. the symptoms are aggravated by lights, noise. The patient has experienced similar episodes in the past, chronically. The patient has not recently seen a physician. 19:35 Pt states she has had a migraine for a week. States she normally gets medication from pain management, but she lost her insurance and doesn't have the money to go. . 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 ca1 Historical: - Allergies: 15:39 Claritin (insomnia); ca1 15:39 Compazine (Seizures); ca1 15:39 Demerol (HEART RACING); ca1 15:39 Morphine (RACING HEART); ca1 15:39 (Hives); ca1 - Home Meds: 15:39 metformin 500 mg Oral tab 1 tab 2 times per day [Active]; tizanidine 2 mg Oral cap 2 ca1 caps twice a day [Active]; tramadol 50 mg Oral tab 1 tab three times a day [Active]; - PMHx: 15:39 Arthritis; Chrohns; Chronic pain; Diabetes - NIDDM; Dramatic migraine events; ca1 Gastroparesis; High Cholesterol; Hypertension; Migraines; Pancreatitis; spinal stenosis; - PSHx: 15:39 Hysterectomy; Knee surgery; Appendectomy; Cholecystectomy; ca1 - Immunization history:: Adult Immunizations up to date, Flu vaccine is not up to date. - Social history:: Smoking status: Patient denies any tobacco usage or history of. ROS: 19:37 Constitutional: Negative for fever, chills, and weight loss, Cardiovascular: Negative kb for chest pain, palpitations, and edema, Respiratory: Negative for shortness of breath, cough, wheezing, and pleuritic chest pain, Abdomen/GI: Negative for abdominal pain, nausea, vomiting, diarrhea, and constipation, MS/Extremity: Negative for injury and deformity, Skin: Negative for injury, rash, and discoloration. 19:37 Neuro: Positive for headache. Exam: 19:37 Constitutional: This is a well developed, well nourished patient who is awake, alert, kb and in no acute distress. Head/Face: Normocephalic, atraumatic. Eyes: Pupils equal round and reactive to light, extra-ocular motions intact. Lids and lashes normal. Conjunctiva and sclera are non-icteric and not injected. Cornea within normal limits. Periorbital areas with no swelling, redness, or edema. Chest/axilla: Normal chest wall appearance and motion. Nontender with no deformity. No lesions are appreciated. Cardiovascular: Regular rate and rhythm with a normal S1 and S2. No gallops, murmurs, or rubs. Normal PMI, no JVD. No pulse deficits. Respiratory: Lungs have equal breath sounds bilaterally, clear to auscultation and percussion. No rales, rhonchi or wheezes noted. No increased work of breathing, no retractions or nasal flaring. Abdomen/GI: Soft, non-tender, with normal bowel sounds. No distension or tympany. No guarding or rebound. No evidence of tenderness throughout. Skin: Warm, dry with normal turgor. Normal color with no rashes, no lesions, and no evidence of cellulitis. MS/ Extremity: Pulses equal, no cyanosis. Neurovascular intact. Full, normal range of motion. Neuro: Awake and alert, GCS 15, oriented to person, place, time, and situation. Cranial nerves II-XII grossly intact. Motor strength 5/5 in all extremities. Sensory grossly intact. Cerebellar exam normal. Normal gait. Vital Signs: 15:36 BP 166 / 89; Pulse 91; Resp 18 S; Temp 97.5(TE); Pulse Ox 100% on R/A; Weight 93.44 kg ca1 (R); Height 5 ft. 7 in. (170.18 cm) (R); Pain 8/10; 15:36 Body Mass Index 32.26 (93.44 kg, 170.18 cm) ca1 [place] Coma Score: 19:37 Eye Response: spontaneous(4). Verbal Response: oriented(5). Motor Response: obeys kb commands(6). Total: 15. MDM: 15:39 Patient medically screened. kb 19:37 Data reviewed: vital signs, nurses notes. Data interpreted: Pulse oximetry: on room air kb is 100 %. Interpretation: normal. Counseling: I had a detailed discussion with the patient and/or guardian regarding: the historical points, exam findings, and any diagnostic results supporting the discharge/admit diagnosis, the need for outpatient follow up, a family practitioner, to return to the emergency department if symptoms worsen or persist or if there are any questions or concerns that arise at home. Administered Medications: 19:20 Not Given (Other Intervention Used): NS 0.9% 1000 ml IV at 1000 ml once jd3 19:20 Not Given (Physician Discretion): TORadol - Ketorolac 15 mg IVP once jd3 19:21 Not Given (Physician Discretion): Reglan 10 mg IVP once; over 1 to 2 minutes jd3 19:21 Not Given (Physician Discretion): Benadryl 12.5 mg IVP once jd3 19:56 Drug: Ondansetron (Zofran) 4 mg Route: PO; zb 19:56 Drug: Decadron 10 mg Route: IM; Site: right gluteus; zb 20:11 Drug: Stadol 1 mg Route: IM; Site: left gluteus; zb Disposition: 03/01 07:20 Co-signature as Attending Physician, George Stern MD I agree with the assessment and kdr plan of care. Disposition: 02/29/20 19:31 Discharged to Home. Impression: Migraine. - Condition is Stable. - Discharge Instructions: Migraine Headache, [id number]. - Prescriptions for Zofran 4 mg Oral Tablet - take 1 tablet by ORAL route every 6 hours As needed; 20 tablet. - Medication Reconciliation Form, Thank You Letter, Antibiotic Education, Prescription Opioid Use form. - Follow up: Emergency Department; When: As needed; Reason: Worsening of condition. Follow up: Private Physician; When: 2 - 3 days; Reason: Recheck today's complaints, Continuance of care, Re-evaluation by your physician. Signatures: Cookie Walker, BOOKER YEP-George Boston MD MD kdr Acob, Cheryl, RN RN ca1 Brown, Zipporah, RN RN zb Davies, Jonathon RN jd3 Corrections: (The following items were deleted from the chart) 02/28 19:58 18:36 IV Saline Lock ordered. kb jd3 20:50 19:31 02/29/2020 19:31 Discharged to Home. Impression: Migraine. Condition is Stable. zb Forms are Medication Reconciliation Form, Thank You Letter, Antibiotic Education, Prescription Opioid Use. Follow up: Emergency Department; When: As needed; Reason: Worsening of condition. Follow up: Private Physician; When: 2 - 3 days; Reason: Recheck today's complaints, Continuance of care, Re-evaluation by your physician. kb
[2020-02-29] MEDS ORDERED: dexAMETHasone 10 MG/ML VIAL ONE (20:06)
[2020-02-29] MEDS ORDERED: ONDANSETRON 4 MG (ODT) TAB ONE (20:06)
[2020-02-29] MEDS ORDERED: BUTORPHANOL 1 MG/ML INJ ONE (20:12)
== END 2020-02-29 20:50 | disposition home or self-care (01) ==
LOC: ER 15:08
DX: G43.909 Migraine, unspecified, not intractable, without status migrainosus (principal); I10 Essential (primary) hypertension; E11.9 Type 2 diabetes mellitus without complications; Z88.5 Allergy status to narcotic agent; Z88.8 Allergy status to other drugs, medicaments and biological substances
CPT/HCPCS: 96372; 99283; J0595; J1100; J1200; J2765; J7030

== ENCOUNTER 2020-05-04 14:14 | Emergency (ER) | payer SELFPAY ==
--- OUTSIDE RECORDS SUMMARY | 2020-05-04 14:16 | XMS REPORT | Continuity of Care Document ---
:1970 Author Organization [facility] t Address [address] [place] [address] Care Team Providers Name Role Phone Fahad [...] numbness 08-29 [facility] Neurologic Neurologic Disease Active [facility] 08-28 [facility] - symptoms symptoms 00:00: Medica l 00 Center Allergies, Adverse Reactions, Alerts Allergy Allergy Status Severity Reaction(s) Onset Inactive Treating Comm ents Source Name Type Date Date Clinician [place] Propensi Active Other (See hyperacti [facility]-Pseud [facility] to Comments) 08-28 vity [facility] - oephedri adverse 00:00: Medical ne reaction 00 Center s Procpricilla Garciaensi Active Other (See Seizures [facility] perazine [...] Date Quantity Comments Source Sex Assigned At [facility] Tobacco use and 2017-08-28 2017-08-28 Never used [facility] - exposure 00:00:00 00:00:00 [facility] Smoking Status Start Date Stop Date Source Never smoker [facility] Medications Ordered Filled Start Stop Current Ordering Indication Dosage Frequency Signature Comments Components Source Medication Medication Date Date Medication? Clinician (SIG) Name Name traMADol Yes 50mg Q.5D Take 50 mg [...] Test 00:00:00 (procedure) [code = Medical Center 36002536] Future Scheduled 2019-11-29 INFLUENZA VACCINE (#1) [facility] - Test 00:00:00 [code = INFLUENZA Medical Ce nter VACCINE (#1)] Future Scheduled 2017-11-[address] [facility] - Test 00:00:00 measurement [facility] (procedure) [code = 52127243] Future Scheduled [address] [facility] - Test 00:00:00 [facility] cervix (procedure) [code = 882715484] Future Scheduled 1979 DIABETIC EYE EXAM [facility] - Test 00:00:00 [code = DIABETIC EYE Medical Center EXAM] Future Scheduled 1979 Urine screening for [facility] - Test 00:00:00 protein (procedure) [facility] [code = 820605505] Future Scheduled [address] [facility] - Test 00:00:00 0-64 YRS (1 of 1 - Medical C enter PPSV23) [code = PNEUMOCOCCAL VACCINE 0-64 YRS (1 of 1 - PPSV23)] Future Scheduled [address] [facility] - Test 00:00:00 [facility] breast (procedure) [code = 815420650] Future Scheduled [address] [facility] - Test 00:00:00 [facility] colon (procedure) [code = 515205405] Encounters Start End Encounter Admission Attending Care Care Encounter Source Date/Time Date/Time Type Type Clinicians Facility Department ID 2019-08-21 2019-08-22 Emergency [facility] [id number] 23:48:04 02:26:00 Jose Cruz Suarez [id number] [place] [id number] [place] [id number] 2019-08-06 2019-08-06 Telephone IQRA Barragan [id number] 00:00:00 00:00:00 Apoorva JENKINS [id number] [facility] [id number] 2019-08-06 2019-08-06 Telephone IQRA Box [id number] 00:00:00 00:00:00 Jinny JENKINS [id number] [id number] 2019-08-05 2019-08-05 Telephone [facility] Box [id number] 00:00:00 00:00:00 Jinny JENKINS [id number] [facility] [id number] Results Test Description Test Time Test Comments Results Result Comments Source POCT-GLUCOSE METER 2017-09-01 17:07:00 Test Item Value Reference Range Interpretation Comme nts POC-GLUCOSE METER ([facility]) (test 298 mg/dL 70-110 H TESTED AT [address] code = 1538) [facility] 7[address] 0 POCT-GLUCOSE [id number] 12:11:00 Test Item Value Reference Range Interpretation Comments POC-GLUCOSE METER 331 mg/dL 70-110 H Notified Rina Low MD/TESTED ([facility]) (test code = AT [address] 1538) [facility] 7703 0 POCT-GLUCOSE [id number] 10:55:00 Test Item Value Reference Range Interpretation Comments POC-GLUCOSE METER 365 mg/dL 70-110 H TESTED AT [place] [address] ([facility]) (test code = CHRISTROXANNE Flynn [facility] 1538) [address] POCT-GLUCOSE [id number] 08:44:00 Test Item Value Reference Range Interpretation Comments POC-GLUCOSE METER 291 mg/dL 70-110 H TESTED AT [place] [address] ([facility]) (test code = CHRISTROXANNE Flynn [facility] 1538) [address] LIPID [id number] 05:56:00 Test Item Value Reference Range Interpretation Comments TRIGLYCERIDES ([facility]) (test code = 279 mg/dL 540) CHOLESTEROL ([facility]) (test code = 119 mg/dL 631) HDL CHOLESTEROL ([facility]) (test code 22 mg/dL = 976) LDL CHOLESTEROL CALCULATED ([facility]) 41 mg/dL (test code = 633) Triglyceride Reference Range: Low Risk <150 Borderline 150-199 High Risk 200-499 Very High Risk >=500Cholesterol Reference Range: Low Risk <200 Borderline 200-239 High Risk >240HDL Cholesterol Reference Range: Low Risk >=60 High Risk <40LDL Cholesterol Reference Range: Optimal <100 Near Optimal 100-129 Borderline 130-159 High 160-189 Very High >=190POCT-GLUCOSE [id number] 21:50:00 Test Item Value Reference Range Interpretation Comments POC-GLUCOSE METER 318 mg/dL 70-110 H TESTED AT [place] [address] ([facility]) (test code = ELIZABETH Flynn [facility] 1538) [address] POCT-GLUCOSE [id number] 18:04:00 Test Item Value Reference Range Interpretation Comments POC-GLUCOSE METER 238 mg/dL 70-110 H TESTED AT [place] [address] ([facility]) (test code = ELIZABETH Flynn [facility] 1538) [address] POCT-GLUCOSE [id number] 12:22:00 Test Item Value Reference Range Interpretation Comments POC-GLUCOSE METER 290 mg/dL 70-110 H TESTED AT [place] [address] ([facility]) (test code = ELIZABETH Flynn [facility] 1538) [address] POCT-GLUCOSE [id number] 09:20:00 Test Item Value Reference Range Interpretation Comments POC-GLUCOSE METER 293 mg/dL 70-110 H TESTED AT [place] [address] ([facility]) (test code = ELIZABETH Flynn [facility] 1538) [address] POCT-GLUCOSE [id number] 21:00:00 Test Item Value Reference Range Interpretation Comments POC-GLUCOSE METER 225 mg/dL 70-110 H TESTED AT [place] [address] ([facility]) (test code = ELIZABETH Flynn [facility] 1538) [address] CT, CAROTID, [id number] 18:01:00FINAL REPORT CT angiogram of the upper [...] Petersen Verified Date/Time: 08/30/2017 18:01:31 Reading Location: [address] Neuro Reading Room , CTANGIO [id number] 18:01:00FINAL REPORT CT angiogram of the upper [...] Petersen Verified Date/Time: 08/30/2017 18:01:31 Reading Location: [address] Neuro Reading Room -GLUCOSE [id number] 17:21:00 Test Item Value Reference Range Interpretation Comments POC-GLUCOSE METER 256 mg/dL 70-110 H TESTED AT [facility] 67[facility] (test code = [facility] 1538) [address] POCT-GLUCOSE [id number] 12:00:00 Test Item Value Reference Range Interpretation Comments POC-GLUCOSE METER 289 mg/dL 70-110 H TESTED AT [place] [address] ([facility]) (test code = [facility] 1538) [address] BASIC METABOLIC [id number] 10:12:00 Test Item Value Reference Range Interpretation [...] NOT APPLICABLE FOR DIALYSIS PATIEN TS. POCT-GLUCOSE [id number] 08:42:00 Test Item Value Reference Range Interpretation Comments POC-GLUCOSE METER 259 mg/dL 70-110 H TESTED AT [facility] 6720 (BEAKER) (test code = [facility] 1538) [address] TROPONIN [id number] 06:14:00 Test Item Value Reference Range Interpretation [...] = 2801) RAD, CHEST, 1 VIEW, NON [id number] 04:23:00Reason for exam:->chest painShould this be performed at the bedside?->YesFINAL REPORT Comparison examination: None No pneumothorax, focal pulmonary co nsolidation, or significant pleural effusion. Normal cardiomediastinal contours. Normal skeleton and soft tissues. Impression: No acute abnormality. Signed: Ervin Jenkins Verified Date/Time: 08/30/2017 04:23:04 Reading Location: [address] Reading Room POCT-GLUCOSE [id number] 21:18:00 Test Item Value Reference Range Interpretation Comments POC-GLUCOSE METER 151 mg/dL 70-110 H TESTED AT [facility] 67 ([facility]) (test code = [facility] 1538) [address] POCT-GLUCOSE [id number] 17:59:00 Test Item Value Reference Range Interpretation Comments POC-GLUCOSE METER 146 mg/dL 70-110 H TESTED AT [facility] 6720 ([facility]) (test code = [facility] 1538) [address] HEMOGLOBIN [id number] 15:56:00 Test Item Value Reference Range Interpretation Comments HEMOGLOBIN A1C ([facility]) (test code = 13.7 % 4.3-6.1 H 368) CT, BRAIN, WITHOUT [id number] 14:52:00FINAL REPORT CT head without contrast. Comparisons: [...] Petersen Verified Date/Time: 08/29/2017 14:52:09 Reading Location: [facility] C013V Neuro Reading Room POCT-GLUCOSE [id number] 14:17:00 Test Item Value Reference Range Interpretation Comments POC-GLUCOSE METER 423 mg/dL 70-110 Notified R Devante SOUZA[facility]ED [facility] (test code = AT [facility] [address] [facility] 1538) [facility] 7703 0 VITAMIN [id number] 06:48:00 Test Item Value Reference Range Interpretation Comments VITAMIN B12 ([facility]) (test code = 300 pg/mL 213-816 774) TSH/FREE T4 IF [id number] 06:48:00 Test Item Value Reference Range Interpretation Comments THYROID STIMULATING HORMONE 1.55 uIU/mL 0.35-4.94 ([facility]) (test code = 772) CBC W/PLT COUNT & AUTO [id number] 05:10:00 Test Item Value Reference Range Interpretation [...] ([facility]ER) (test code = 2801) URINALYSIS W/ [id number] 23:32:00 Test Item Value Reference Range Interpretation [...] Occasional SOURCE(BEAKER) (test code = 2795) TROPONIN [id number] 23:12:00 Test Item Value Reference Range Interpretation [...] acute neurological disease, and persistent tachyarrhythmia.BASIC METABOLIC [id number] 23:05:00 Test Item Value Reference Range Interpretation [...] NOT APPLICABLE FOR DIALYSIS PATIEN TS. POCT-GLUCOSE [id number] 20:49:00 Test Item Value Reference Range Interpretation Comments POC-GLUCOSE METER 376 mg/dL 70-110 H Notified R N /TESTED (JESSICA) (test code = AT [facility] [address] [facility] 7091) [facility] 7703 0
--- OUTSIDE RECORDS SUMMARY | 2020-05-04 14:16 | XMS REPORT | Clinical Summary ---
:1970 [facility] Address [address] [place] [address] Care Team Providers Name Role Phone Fahad Curran MD Primary Care Provider Allergies Active Allergy Reactions Severity Noted Date Comments Loratadine-Pseudoephedrine Other (See Comments) 2017 hyperactivity Prochlorperazine Other (See Comments) 08/28/2017 Sei zures Meperidine Rash Low 08/28/2017 Ffyptamas-Ixfijn-Mndfgidd-Scop Itching, Rash Low 8 Morphine Rash Low [...] PANEL 09/01/2020 09/01/2017 Results Not on fileafter 05/04/2019 Insurance Payer Benefit Plan / Subscriber ID Effective Dates Phone Addre ss Type Group BLUE BCBS PPO POS [id number]-Riky [id number] PPO CROSS/BLUE EPO CHOICE t 2 [facility] [id number] ([place]) [place] [address] Advance Directives For more information, please contact: [phone] Code Status Date Activated Date Inactivated Comments Full Code 08/28/2017 9:21 PM 09/01/2017 8:22 PM This code status was determined by: Patient
[2020-05-04] MEDS ORDERED: HYDROMORPHONE HCL 2 MG/ML inj ONE (16:44)
[2020-05-04] MEDS ORDERED: ONDANSETRON 4 MG (ODT) TAB ONE (16:45)
--- NOTE | 2020-05-04 17:11 | EDPHYS ---
Physician Documentation [facility] Name: Elly Clarke Age: 50 yrs Sex: Female : 1970 Arrival Date: 05/04/2020 Time: 14:16 Bed 27 Private MD: Pavel Curran T ED Physician Wil Patterson HPI: 05/04 17:17 This 50 yrs old Female presents to ER via Ambulatory with complaints of jr8 Headache, Neck Pain, <24hrs Old. 17:17 Onset: The symptoms/episode began/occurred gradually, 2 month(s) ago, and became jr8 persistent. Associated signs and symptoms: Pertinent positives: neck stiffness. Headache History: The patient has had previous headaches and this one is similar to previous episodes. The patient has experienced similar episodes in the past, several times. The patient has not recently seen a physician. Patient stated that she lost her insurance and new one will not start till may. Has been out of her medications from pain management for chronic neck pain and migraines. Stated that she tried to get it to go away at home with OTC meds and other prescriptive meds she had in past but was still too bad . 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 - Social history:: Smoking status: Patient denies any tobacco usage or history of. ROS: 17:17 Eyes: Negative for injury, pain, redness, and discharge, ENT: Negative for injury, jr8 pain, and discharge, Cardiovascular: Negative for chest pain, palpitations, and edema, Respiratory: Negative for shortness of breath, cough, wheezing, and pleuritic chest pain, Abdomen/GI: Negative for abdominal pain, nausea, vomiting, diarrhea, and constipation, Back: Negative for injury and pain, MS/Extremity: Negative for injury and deformity, Skin: Negative for injury, rash, and discoloration. 17:17 Neck: Positive for pain with movement, pain at rest, stiffness, Negative for bony tenderness. 17:17 Neuro: Positive for headache. Exam: 17:17 Eyes: Pupils equal round and reactive to light, extra-ocular motions intact. Lids and jr8 lashes normal. Conjunctiva and sclera are non-icteric and not injected. Cornea within normal limits. Periorbital areas with no swelling, redness, or edema. ENT: Nares patent. No nasal discharge, no septal abnormalities noted. Tympanic membranes are normal and external auditory canals are clear. Oropharynx with no redness, swelling, or masses, exudates, or evidence of obstruction, uvula midline. Mucous membranes moist. Cardiovascular: Regular rate and rhythm with a normal S1 and S2. No gallops, murmurs, or rubs. Normal PMI, no JVD. No pulse deficits. Respiratory: Lungs have equal breath sounds bilaterally, clear to auscultation and percussion. No rales, rhonchi or wheezes noted. No increased work of breathing, no retractions or nasal flaring. Abdomen/GI: Soft, non-tender, with normal bowel sounds. No distension or tympany. No guarding or rebound. No evidence of tenderness throughout. Back: No spinal tenderness. No costovertebral tenderness. Full range of motion. Skin: Warm, dry with normal turgor. Normal color with no rashes, no lesions, and no evidence of cellulitis. MS/ Extremity: Pulses equal, no cyanosis. Neurovascular intact. Full, normal range of motion. Neuro: Awake and alert, GCS 15, oriented to person, place, time, and situation. Cranial nerves II-XII grossly intact. Motor strength 5/5 in all extremities. Sensory grossly intact. Cerebellar exam normal. Normal gait. 17:17 Neck: External neck: tenderness, that is mild, of the right trapezius, C-spine: appears grossly normal, Thyroid: appears normal, Trachea: is midline with no obvious abnormalities, ROM/movement: pain, that is mild, with any movement, limited range of motion, is not appreciated, Meningeal signs: are not present, Lymph nodes: no appreciated lymphadenopathy. Vital Signs: 14:32 BP 156 / 110; Pulse 102; Resp 18; Temp 97.5; Pulse Ox 99% on R/A; Weight 93.44 kg; em Height 5 ft. 7 in. (170.18 cm); Pain 9/10; 17:30 BP 165 / 95; Pulse 96; Resp 16 S; Pulse Ox 98% on R/A; ca1 14:32 Body Mass Index 32.26 (93.44 kg, 170.18 cm) em MDM: 16:05 Patient medically screened. jr8 17:10 Data reviewed: vital signs, nurses notes, and as a result, I will discharge patient. jr8 Data interpreted: Pulse oximetry: on room air is 99 %. Interpretation: normal. Counseling: I had a detailed discussion with the patient and/or guardian regarding: the historical points, exam findings, and any diagnostic results supporting the discharge/admit diagnosis, the need for outpatient follow up, a family practitioner, a neurologist, to return to the emergency department if symptoms worsen or persist or if there are any questions or concerns that arise at home. Administered Medications: 16:35 Drug: Dilaudid 2 mg Route: IM; Site: left ventrogluteal; iw 16:42 Drug: Zofran (Ondansetron) 4 mg Route: PO; iw Disposition: 18:24 Co-signature as Attending Physician, Wil Patterson MD. rn Disposition: 05/04/20 17:10 Discharged to Home. Impression: Migraine. - Condition is Stable. - Discharge Instructions: Migraine Headache. - Prescriptions for Ambien 10 mg Oral Tablet - take 1 tablet by ORAL route At bedtime As needed; 20 tablet. Zanaflex 4 mg Oral Tablet - take 1 tablet by ORAL route every 8 hours As needed; 20 tablet. - Medication Reconciliation Form, Thank You Letter, Antibiotic Education, Prescription Opioid Use form. - Follow up: Pavel Curran MD; When: 2 - 3 days; Reason: Recheck today's complaints, Continuance of care, Re-evaluation by your physician. - Problem is new. - Symptoms have improved. Signatures: Storm Chaparro RN RN em Kenisha Prince RN RN iw Wil Patterson MD MD rn Roszak, Josh, PA PA jr8 Katia Wan RN RN ca1 Corrections: (The following items were deleted from the chart) 17:32 17:10 05/04/2020 17:10 Discharged to Home. Impression: Migraine. Condition is Stable. ca1 Forms are Medication Reconciliation Form, Thank You Letter, Antibiotic Education, Prescription Opioid Use. Follow up: Pavel Curran; When: 2 - 3 days; Reason: Recheck today's complaints, Continuance of care, Re-evaluation by your physician. Problem is new. Symptoms have improved. jr8
--- NOTE | 2020-05-04 17:11 | ER ---
Nurse's Notes [facility] Name: Elly Clarke Age: 50 yrs Sex: Female : 1970 Arrival Date: 05/04/2020 Time: 14:16 Bed 27 Private MD: Pavel Curran T Diagnosis: Migraine Presentation: 05/04 14:32 Chief complaint: Patient states: migraine for 2 months, has recently got worse, also em reports N/V, denies fever. Coronavirus screen: Client denies travel out of the [place] in the last 14 days. Ebola Screen: Patient negative for fever greater than or equal to 101.5 degrees Fahrenheit, and additional compatible Ebola Virus Disease symptoms Patient denies exposure to infectious person. Patient denies travel to an Ebola-affected area in the 21 days before illness onset. No symptoms or risks identified at this time. Initial Sepsis Screen: Does the patient meet any 2 criteria? HR > 90 bpm. No. Patient's initial sepsis screen is negative. Does the patient have a suspected source of infection? No. Patient's initial sepsis screen is negative. Risk Assessment: Do you want to hurt yourself or someone else? Patient reports no desire to harm self or others. Onset of symptoms was May 04, 2020. 14:32 Method Of Arrival: Ambulatory em 14:32 Acuity: HANNAH 3 em Triage Assessment: 17:32 General: Appears Behavior is. Pain:. 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 - Social history:: Smoking status: Patient denies any tobacco usage or history of. Screenin:58 Abuse screen: Denies threats or abuse. Denies injuries from another. Nutritional iw screening: No deficits noted. Tuberculosis screening: No symptoms or risk factors identified. Fall Risk None identified. Assessment: 16:58 Reassessment: Patient appears in no apparent distress at this time. Patient and/or iw family updated on plan of care and expected duration. Pain level reassessed. Patient is alert, oriented x 3, equal unlabored respirations, skin warm/dry/pink. 17:30 Reassessment: Patient appears in no apparent distress at this time. Patient is alert, ca1 oriented x 3, equal unlabored respirations, skin warm/dry/pink. Patient states feeling better. Patient states symptoms have improved. Vital Signs: 14:32 BP 156 / 110; Pulse 102; Resp 18; Temp 97.5; Pulse Ox 99% on R/A; Weight 93.44 kg; em Height 5 ft. 7 in. (170.18 cm); Pain 9/10; 17:30 BP 165 / 95; Pulse 96; Resp 16 S; Pulse Ox 98% on R/A; ca1 14:32 Body Mass Index 32.26 (93.44 kg, 170.18 cm) em ED Course: 14:16 Patient arrived in ED. ag5 14:16 Pavel Curran MD is Private Physician. ag5 14:33 Triage completed. em 14:34 Arm band placed on. em 16:04 Lj Love PA is PHCP. jr8 16:04 Wil Patterson MD is Attending Physician. jr8 16:10 Kenisha Prince, NAT is Primary Nurse. iw 16:58 Patient has correct armband on for positive identification. Bed in low position. Call ca1 light in reach. Side rails up X 1. Pulse ox on. NIBP on. Door closed. Noise minimized. Lights dimmed. Warm blanket given. 17:10 Pavel Curran MD is Referral Physician. jr8 17:31 No provider procedures requiring assistance completed. Patient did not have IV access ca1 during this emergency room visit. Administered Medications: 16:35 Drug: Dilaudid 2 mg Route: IM; Site: left ventrogluteal; iw 16:42 Drug: Zofran (Ondansetron) 4 mg Route: PO; iw Outcome: 17:10 Discharge ordered by . jr8 17:31 Discharged to home ambulatory, with significant other. ca1 17:31 Condition: stable 17:31 Discharge instructions given to patient, Instructed on discharge instructions, follow up and referral plans. medication usage, Demonstrated understanding of instructions, follow-up care, medications, Prescriptions given X 2. 17:32 Patient left the ED. ca1 Signatures: Storm Chaparro, RN RN Kenisha Clancy RN RN iw Roszak, Josh, PA PA jr8 Katia Wan RN RN ca1 Rei, Dar ag5 Corrections: (The following items were deleted from the chart) 17:31 16:00 Patient has correct armband on for positive identification. Bed in low position. ca1 Call light in reach. Side rails up X 1. ca1 17:31 16:00 Pulse ox on. NIBP on. ca1 ca1 17:31 16:00 Door closed. Noise minimized. Lights dimmed. Warm blanket given. ca1 ca1
[2020-05-04 17:39] VITALS: TEMP 97.5
[2020-05-04 17:49] VITALS: BP 165/95; O2SAT 98
== END 2020-05-04 17:32 | disposition home or self-care (01) ==
LOC: ER 14:14
DX: G43.909 Migraine, unspecified, not intractable, without status migrainosus (principal); M54.2 Cervicalgia; I10 Essential (primary) hypertension; Z88.5 Allergy status to narcotic agent; Z88.8 Allergy status to other drugs, medicaments and biological substances
CPT/HCPCS: 96372; 99283; J1170

== ENCOUNTER 2020-05-12 18:30 | Emergency (ER) | payer SELFPAY ==
[2020-05-12 19:16] LABS: Absolute Lymphocytes (CBC) 2.8 K/uL (0.7-4.9); Basophils % 0.6 % (0-1.3); Hematocrit 41.1 % (36.0-45.0); Lymphocytes % 32.8 % (15.3-44.8); MPV 9.4 fL (7.6-11.3); RBC Red Blood Cell Count 5.16 M/uL (3.86-4.86)
[2020-05-12] MEDS ORDERED: PROMETHAZINE INJ 25 MG/ML AMP ONE (19:28)
[2020-05-12] MEDS ORDERED: NA CHLORIDE 0.9% 1,000 ML ONE (19:29)
[2020-05-12] MEDS ORDERED: HYDROMORPHONE HCL 1 MG/ML INJ ONE (19:29)
[2020-05-12 19:41] LABS: ALT/SGPT 31 U/L (12-78); AST/SGOT 27 U/L (15-37); Albumin 3.7 g/dL (3.4-5.0); Alkaline Phosphatase 99 U/L (45-117); BUN Blood Urea Nitrogen 9 mg/dL (7-18); Bicarbonate 26 mmol/L (21-32); Bilirubin Direct < 0.1 mg/dL (0-0.2); Bilirubin Total 0.4 mg/dL (0.2-1.0); Glucose Level 338 mg/dL (74-106); Lipase 155 U/L (73-393); Potassium 3.7 mmol/L (3.5-5.1); Sodium Level 137 mmol/L (136-145)
--- NOTE | 2020-05-12 19:44 | RAD REPORT ---
EXAM DESCRIPTION: CTAbdomen Pelvis W Contrast - 05/12/2020 7:34 pm CLINICAL HISTORY: Abdominal pain. ABD PAIN COMPARISON: Abdomen Pelvis W Contrast dated 09/17/2019; Abdomen Pelvis W Contrast dated 08/18/2019 ; Abdomen Pelvis W Contrast dated 07/29/2019; Abdomen Pelvis W Contrast dated 12/04/2017 TECHNIQUE: Biphasic CT imaging of the abdomen and pelvis was performed with 100 ml non-ionic IV cont rast. All CT scans are performed using dose optimization technique as appropriate and may include automated exposure control or mA/KV adjustment according to patient size. FINDINGS: The lung bases are clear. The liver demonstrates diffuse fatty infiltration. Cholecystectomy. Spleen, pancreas, adrenal glands and kidneys are within normal limits. No bowel obstruction, free air, free fluid or abscess. Mild sigmoid diverticulosis is noted without d iverticulitis findings. Appendectomy. No evidence of significant lymphadenopathy. No suspicious bony findings. IMPRESSION: No acute intra-abdominal or pelvic finding.
[2020-05-12 20:01] LABS: Urine Blood NEGATIVE (NEG); Urine Glucose 3+ (NEG); Urine Protein NEGATIVE (NEG); Urine Specific Gravity 1.025 (1.005-1.030)
--- NOTE | 2020-05-12 20:08 | ER ---
Nurse's Notes [facility] Name: Elly Clarke Age: 50 yrs Sex: Female : 1970 Arrival Date: 05/12/2020 Time: 18:34 Bed 20 Private MD: Diagnosis: Unspecified abdominal pain Presentation: 05/12 18:44 Chief complaint: Patient states: Lower abd pain with Nausea and diarrhea for 2 days. No ll1 fever. Believes its a chrom's flare up. Coronavirus screen: Client denies travel out of the [place] in the last 14 days. At this time, the client does not indicate any symptoms associated with coronavirus-19. Ebola Screen: Patient denies travel to an Ebola-affected area in the 21 days before illness onset. Initial Sepsis Screen: Does the patient meet any 2 criteria? HR > 90 bpm. No. Patient's initial sepsis screen is negative. Does the patient have a suspected source of infection? Yes: Acute abdominal pain. Risk Assessment: Do you want to hurt yourself or someone else? Patient reports no desire to harm self or others. Onset of symptoms was May 11, 2020. 18:44 Method Of Arrival: Ambulatory ll1 18:44 Acuity: HANNAH 3 ll1 Historical: - Allergies: 18:44 Claritin (insomnia); ll1 18:44 Compazine (Seizures); ll1 18:44 Demerol (HEART RACING); ll1 18:44 (Hives); ll1 18:44 Morphine (RACING HEART); ll1 - Home Meds: 20:01 metformin 500 mg Oral tab 1 tab 2 times per day [Active]; butorphanol tartrate 10 mg/mL sf nasal spry 1 spray as needed for Migraine [Active]; tizanidine 2 mg Oral cap 2 caps twice a day [Active]; Ambien 10 mg Oral tab 1 tab once daily for Sleep-Onset Insomnia [Active]; clonazepam 1 mg Oral tab 1 tab 2 times per day [Active]; carvedilol oral oral 1 tab 2 times per day [Active]; - PMHx: 18:44 Arthritis; Chrohns; Chronic pain; Diabetes - NIDDM; Dramatic migraine events; ll1 Gastroparesis; High Cholesterol; Hypertension; Migraines; Pancreatitis; spinal stenosis; - PSHx: 18:44 Knee surgery; Appendectomy; Hysterectomy; Cholecystectomy; ll1 - Immunization history:: Flu vaccine is not up to date. - Social history:: Smoking status: Patient denies any tobacco usage or history of. Screenin:00 Abuse screen: Denies threats or abuse. Denies injuries from another. Nutritional sf screening: No deficits noted. Tuberculosis screening: No symptoms or risk factors identified. Never had TB. Possible symptoms: None Risk factors: None. Fall Risk None identified. No fall in past 12 months (0 pts). No secondary diagnosis (0 pts). IV access (20 points). Ambulatory Aid- None/Bed Rest/Nurse Assist (0 pts). Gait- Normal/Bed Rest/Wheelchair (0 pts) Mental Status- Oriented to own ability (0 pts). Total Moreno Fall Scale indicates No Risk (0-24 pts). Assessment: 19:00 General: Appears in no apparent distress. comfortable, Behavior is calm, cooperative, sf appropriate for age. Pain: Complains of pain in suprapubic area, right lower quadrant and left lower quadrant Pain currently is 8 out of 10 on a pain scale. Neuro: No deficits noted. Level of Consciousness is awake, alert, Oriented to person, place, time, situation, Appropriate for age. Cardiovascular: No deficits noted. Patient's skin is warm and dry. Respiratory: No deficits noted. Airway is patent Respiratory effort is even, unlabored, Respiratory pattern is regular, symmetrical. GI: Abdomen is non-distended, Abdomen is tender to palpation in suprapubic area, right lower quadrant and left lower quadrant Reports lower abdominal pain, diarrhea, nausea, vomiting. 19:54 Reassessment: Patient appears in no apparent distress at this time. Patient and/or sf family updated on plan of care and expected duration. Pain level reassessed. Patient is alert, oriented x 3, equal unlabored respirations, skin warm/dry/pink. Reports decrease in nausea, pain down to 5/10 "has taken the edge off". Vitals stable. Patient states symptoms have improved. Pain: Pain currently is 5 out of 10 on a pain scale. Vital Signs: 18:44 BP 152 / 78; Pulse 104; Resp 18; Temp 97.1; Pulse Ox 97% ; Weight 93.44 kg; Height 5 ll1 ft. 7 in. (170.18 cm); Pain 8/10; 19:55 BP 156 / 95; Pulse 87; Resp 18; Pulse Ox 95% ; sf 18:44 Body Mass Index 32.26 (93.44 kg, 170.18 cm) ll1 ED Course: 18:34 Patient arrived in ED. mr 18:43 Arm band placed on Patient placed in an exam room, on a stretcher. ll1 18:46 Triage completed. ll1 18:48 Jose A Leung NP is PHCP. pm1 18:48 Kam Parker MD is Attending Physician. pm1 19:00 Facundo Dunn RN is Primary Nurse. sf 19:00 Patient has correct armband on for positive identification. Bed in low position. Call sf light in reach. Side rails up X 1. Door closed. Noise minimized. Visitors limited. Lights dimmed. Verbal reassurance given. 19:00 Initial lab(s) drawn, by me, sent to lab. Inserted saline lock: 20 gauge in left sf antecubital area, using aseptic technique. Blood collected. 19:34 CT Abd/Pelvis - IV Contrast Only In Process Unspecified. EDMS 19:52 CBC with Diff Sent. sf 20:25 No provider procedures requiring assistance completed. IV discontinued, intact, sf bleeding controlled, No redness/swelling at site. Pressure dressing applied. Administered Medications: 19:12 Drug: NS 0.9% 1000 ml Route: IV; Rate: 1000 ml; Site: left antecubital; sf 20:26 Follow up: Response: No adverse reaction; IV Status: IV converted to saline lock; IV sf Intake: 200ml 19:12 Drug: Dilaudid 1 mg Route: IVP; Site: left antecubital; sf 20:01 Follow up: Response: No adverse reaction; Pain is decreased sf 19:12 Drug: Phenergan 12.5 mg Route: IVP; Site: left antecubital; sf 20:01 Follow up: Response: No adverse reaction; Nausea is decreased sf Intake: 20:26 IV: 200ml; Total: 200ml. sf Outcome: 20:08 Discharge ordered by . pm1 20:29 Condition: stable sf 20:29 Discharge instructions given to patient, Instructed on discharge instructions, follow up and referral plans. medication usage, Demonstrated understanding of instructions, follow-up care, medications, Prescriptions given X 2. 20:29 Discharged to home ambulatory. 20:31 Patient left the ED. Signatures: Dispatcher [employer] EDMS Ronald Angelika LeungJose A, [employer] pm1 Dimas Tomlin RN RN ll1 Facundo Dunn RN RN sf Corrections: (The following items were deleted from the chart) 19:52 19:52 BASIC METABOLIC PANEL+C.LAB.BRZ drawn and sent. EDCO
--- NOTE | 2020-05-12 20:08 | EDPHYS ---
Physician Documentation [facility] Name: Elly Clarke Age: 50 yrs Sex: Female : 1970 Arrival Date: 05/12/2020 Time: 18:34 Bed 20 Private MD: Kam Dunlap HPI: 05/12 19:06 This 50 yrs old Female presents to ER via Ambulatory with complaints of pm1 Abdominal Pain, Nausea, Diarrhea. 19:06 The patient presents with abdominal pain in the lower abdomen. Onset: The pm1 symptoms/episode began/occurred 2 day(s) ago. The symptoms do not radiate. 19:06 Associated signs and symptoms: Pertinent positives: diarrhea, nausea, Pertinent pm1 negatives: chest pain, constipation, dysuria, fever, shortness of breath, vomiting. The symptoms are described as achy. Modifying factors: The symptoms are alleviated by nothing, the symptoms are aggravated by food. Severity of pain: in the emergency department the pain is actually worse. The patient has experienced similar episodes in the past, multiple times, today's symptoms are similar, to previous gastroparesis or Crohns' flare up. The patient has not recently seen a physician. Historical: - Allergies: 18:44 Claritin (insomnia); ll1 18:44 Compazine (Seizures); ll1 18:44 Demerol (HEART RACING); ll1 18:44 (Hives); ll1 18:44 Morphine (RACING HEART); ll1 - Home Meds: 20:01 metformin 500 mg Oral tab 1 tab 2 times per day [Active]; butorphanol tartrate 10 mg/mL sf nasal spry 1 spray as needed for Migraine [Active]; tizanidine 2 mg Oral cap 2 caps twice a day [Active]; Ambien 10 mg Oral tab 1 tab once daily for Sleep-Onset Insomnia [Active]; clonazepam 1 mg Oral tab 1 tab 2 times per day [Active]; carvedilol oral oral 1 tab 2 times per day [Active]; - PMHx: 18:44 Arthritis; Chrohns; Chronic pain; Diabetes - NIDDM; Dramatic migraine events; ll1 Gastroparesis; High Cholesterol; Hypertension; Migraines; Pancreatitis; spinal stenosis; - PSHx: 18:44 Knee surgery; Appendectomy; Hysterectomy; Cholecystectomy; ll1 - Immunization history:: Flu vaccine is not up to date. - Social history:: Smoking status: Patient denies any tobacco usage or history of. ROS: 19:06 Constitutional: Negative for fever, chills, and weight loss, Cardiovascular: Negative pm1 for chest pain, palpitations, and edema, Respiratory: Negative for shortness of breath, cough, wheezing, and pleuritic chest pain. 19:06 Back: Negative for injury and pain, MS/Extremity: Negative for injury and deformity, Skin: Negative for injury, rash, and discoloration. 19:06 Abdomen/GI: Positive for abdominal pain, nausea, diarrhea, Negative for vomiting, constipation. 19:06 Neuro: Positive for headache, Negative for numbness, tingling, weakness. pm1 Exam: 19:06 Constitutional: This is a well developed, well nourished patient who is awake, alert, pm1 and in no acute distress. Head/Face: Normocephalic, atraumatic. Chest/axilla: Normal chest wall appearance and motion. Nontender with no deformity. No lesions are appreciated. Cardiovascular: Regular rate and rhythm with a normal S1 and S2. No gallops, murmurs, or rubs. Normal PMI, no JVD. No pulse deficits. Respiratory: Lungs have equal breath sounds bilaterally, clear to auscultation and percussion. No rales, rhonchi or wheezes noted. No increased work of breathing, no retractions or nasal flaring. 19:06 Back: No spinal tenderness. No costovertebral tenderness. Full range of motion. Skin: Warm, dry with normal turgor. Normal color with no rashes, no lesions, and no evidence of cellulitis. MS/ Extremity: Pulses equal, no cyanosis. Neurovascular intact. Full, normal range of motion. 19:06 Abdomen/GI: Inspection: obese Palpation: soft, in all quadrants, mild abdominal tenderness, in the epigastric area. 19:06 Neuro: Exam negative for acute changes, Orientation: is normal, Mentation: is normal, Motor: is normal, moves all fours. Vital Signs: 18:44 BP 152 / 78; Pulse 104; Resp 18; Temp 97.1; Pulse Ox 97% ; Weight 93.44 kg; Height 5 ll1 ft. 7 in. (170.18 cm); Pain 8/10; 19:55 BP 156 / 95; Pulse 87; Resp 18; Pulse Ox 95% ; sf 18:44 Body Mass Index 32.26 (93.44 kg, 170.18 cm) ll1 MDM: 18:54 Patient medically screened. pm1 20:06 Data reviewed: vital signs. Data interpreted: Pulse oximetry: on room air is 95 %. pm1 Interpretation: normal. Counseling: I had a detailed discussion with the patient and/or guardian regarding: the historical points, exam findings, and any diagnostic results supporting the discharge/admit diagnosis, lab results, radiology results, the need for outpatient follow up, to return to the emergency department if symptoms worsen or persist or if there are any questions or concerns that arise at home. 20:06 ED course: Patient requested refill of her Ambien and clonazepam. [facility] Ambien prescription on 05/04/2020. I will not refill the patient's Ambien or clonazepam. Patient with abdominal pain that I will address. 05/12 18:51 Order name: CBC with Diff pm1 05/12 18:51 Order name: Hepatic Function; Complete Time: 19:50 pm1 05/12 18:51 Order name: Lipase; Complete Time: 19:50 pm1 05/12 18:52 Order name: Basic Metabolic Panel; Complete Time: 19:50 EDMS 05/12 18:52 Order name: CBC with Automated Diff; Complete Time: 19:34 EDMS 05/12 18:51 Order name: IV Saline Lock; Complete Time: 19:08 pm1 05/12 18:51 Order name: Labs collected and sent; Complete Time: 19:08 pm1 05/12 18:51 Order name: CT Abd/Pelvis - IV Contrast Only; Complete Time: 19:50 pm1 05/12 18:58 Order name: Urine Dipstick--Ancillary (enter results); Complete Time: 20:10 mw2 Administered Medications: 19:12 Drug: NS 0.9% 1000 ml Route: IV; Rate: 1000 ml; Site: left antecubital; sf 20:26 Follow up: Response: No adverse reaction; IV Status: IV converted to saline lock; IV sf Intake: 200ml 19:12 Drug: Dilaudid 1 mg Route: IVP; Site: left antecubital; sf 20:01 Follow up: Response: No adverse reaction; Pain is decreased sf 19:12 Drug: Phenergan 12.5 mg Route: IVP; Site: left antecubital; sf 20:01 Follow up: Response: No adverse reaction; Nausea is decreased sf Disposition: 05/13 14:39 Co-signature as Attending Physician, Kam Parker MD I agree with the assessment and zoe plan of care. Disposition: 05/12/20 20:08 Discharged to Home. Impression: Unspecified abdominal pain. - Condition is Stable. - Discharge Instructions: Abdominal Pain, Adult. - Prescriptions for promethazine 25 mg Oral Tablet - take 1 tablet by ORAL route every 6 hours As needed; 20 tablet. Tramadol 50 mg Oral Tablet - take 1 tablet by ORAL route every 8 hours as needed; 12 tablet. - Medication Reconciliation Form, Thank You Letter, Antibiotic Education, Prescription Opioid Use form. - Follow up: Emergency Department; When: As needed; Reason: Worsening of condition. Follow up: Private Physician; When: 2 - 3 days; Reason: Recheck today's complaints, Continuance of care, Re-evaluation by your physician. - Problem is new. - Symptoms have improved. Signatures: Dispatcher [employer] EDNY Kam Parker MD MD cha Marinas, Patrick, KRZYSZTOF DIRECTOR OF LABOR RELATIONS pm1 Dimas Tomlin RN RN ll1 Facundo Dunn RN RN sf Corrections: (The following items were deleted from the chart) 05/12 19:52 18:52 BASIC METABOLIC PANEL+C.LAB.BRZ ordered. [facility] 20:31 20:08 05/12/2020 20:08 Discharged to Home. Impression: Unspecified abdominal pain. sf Condition is Stable. Forms are Medication Reconciliation Form, Thank You Letter, Antibiotic Education, Prescription Opioid Use. Follow up: Emergency Department; When: As needed; Reason: Worsening of condition. Follow up: Private Physician; When: 2 - 3 days; Reason: Recheck today's complaints, Continuance of care, Re-evaluation by your physician. Problem is new. Symptoms have improved. pm1 05/13 00:15 05/12 19:06 Back: Negative for injury and pain, MS/Extremity: Negative for injury and pm1 deformity, Skin: Negative for injury, rash, and discoloration, Neuro: Negative for headache, weakness, numbness, tingling, and seizure, pm1
[2020-05-12 20:35] VITALS: TEMP 97.1
[2020-05-12 20:36] VITALS: BP 156/95; O2SAT 95
== END 2020-05-12 20:31 | disposition home or self-care (01) ==
LOC: ER 18:30
DX: R10.30 Lower abdominal pain, unspecified (principal); E11.43 Type 2 diabetes mellitus with diabetic autonomic (poly)neuropathy; K31.84 Gastroparesis; K50.90 Crohn's disease, unspecified, without complications; I10 Essential (primary) hypertension; E78.00 Pure hypercholesterolemia, unspecified; Z88.1 Allergy status to other antibiotic agents; Z88.5 Allergy status to narcotic agent; Z88.8 Allergy status to other drugs, medicaments and biological substances
CPT/HCPCS: 36415; 74177; 80048; 80076; 81003; 82565; 83690; 85025; 96361; 96374; 96375; 99284; J1170; J2550; J7030; Q9967

== ENCOUNTER 2020-05-23 14:06 | Emergency (ER) | payer SELFPAY ==
--- OUTSIDE RECORDS SUMMARY | 2020-05-23 14:09 | XMS REPORT | Continuity of Care Document ---
:1970 Author Organization [facility] t Address [address] [place] [address] Care Team Providers Name Role Phone Fahad Curran MD Primary Care Physician Isaias DEGROOT S Attending Clinician Nica Prakash MD Attending Clinician Laurel JOHNS Attending Clinician Unavailable [...] ents Source Name Type Date Date Clinician Gerard Bashir Active Other (See Seizures [facility] per[facility] ty to Comments) 08-28 [facility]: Medical reaction 00 Center s Lauryn Shorti Active Rash [facility] ne ty to 08-28 [facility] - adverse 00:00: Medical reaction 00 Center s Phenobar Drug Active Itching, [facility] b-Hyoscy Allergy Rash 08-28 [facility] - -Atropin 00:00: Medical e-Scop 00 Center Morphine Propensi Active Rash [facility] ty to 08-28 [facility] - adverse 00:00: Medical reaction 00 Raymond s Loratadi Propensi Active Other (See hyperacti [facility] St ne-Pseud ty to Comments) 08-28 vity [facility] - oephedri adverse 00:00: Medical ne reaction 00 Center s Social History Social Habit Start Date Stop Date Quantity Comments Source Sex Assigned At [facility] Tobacco use and 2017-08-28 2017-08-28 Never used [facility] kes - exposure 00:00:00 00:00:00 [facility] Center Smoking Status Start Date Stop Date Source [facility] Ordered Filled Start Stop Current Ordering Indication Dosage Frequency Signature Comments Components Source Medication Medication Date Date Medication? Clinician (SIG) Name Name traMADol Yes 50mg Q.5D Take [address] [facility] (ULTRAM) 50 6-05 by mouth 2 Yu kes - mg tablet 18:22: (two) Medical 22 times Center daily. butorphanol 2017- Yes 1{spray [address] [facility] [...] Test 00:00:00 (procedure) [code = Medical Center 99160957] Future Scheduled 2019-11-29 INFLUENZA VACCINE (#1) [facility] - Test 00:00:00 [code = INFLUENZA Medical Ce nter VACCINE (#1)] Future Scheduled 2017-11-[address] [facility] kes - Test 00:00:00 measurement [facility] Center (procedure) [code = 00435212] Future Scheduled [address] [facility] - Test 00:00:00 [facility] cervix (procedure) [code = 024717122] Future Scheduled 1979 DIABETIC EYE EXAM [facility] - Test 00:00:00 [code = DIABETIC EYE Medical Center EXAM] Future Scheduled 1979 Urine screening for [facility] - Test 00:00:00 protein (procedure) Medical Center [code = 487386613] Future Scheduled [address] [facility] - Test 00:00:00 0-64 YRS (1 of 1 - Medical C enter PPSV23) [code = PNEUMOCOCCAL VACCINE 0-64 YRS (1 of 1 - PPSV23)] Future Scheduled [address] [facility] - Test 00:00:00 [facility] breast (procedure) [code = 640656454] Future Scheduled [address] [facility] - Test 00:00:00 [facility] colon (procedure) [code = 625884152] Encounters Start End Encounter Admission Attending Care Care Encounter Source Date/Time Date/Time Type Type Clinicians Facility Department ID 2020-05-19 2020-05-19 Emergency [facility] [id number] 15:45:00 18:07:00 Pastora Suarez [id number] [place] [id number] [place] [address] [id number] 2019-08-21 2019-08-22 Emergency [facility] [id number] 23:48:04 02:26:00 Jose Cruz Suarez [id number] [place] [id number] [place] [id number] 2019-08-06 2019-08-06 Telephone [facility] Barragan [id number] 00:00:00 00:00:00 Apoorva JENKINS [id number] [id number] 2019-08-06 2019-08-06 Telephone [facility] Box [id number] 00:00:00 00:00:00 Jinny JENKINS [id number] [id number] 2019-08-05 2019-08-05 Telephone [facility] Box [id number] 00:00:00 00:00:00 Jinny JENKINS [id number] [id number] Results Test Description Test Time Test Comments Results Result Comments Source POCT-GLUCOSE METER 2017-09-01 17:07:00 Test Item Value Reference Range Interpretation Comme nts POC-GLUCOSE METER ([facility]) (test 298 mg/dL 70-110 [address] = 1538) [facility] 7[address] 0 POCT-GLUCOSE [id number] 12:11:00 Test Item Value Reference Range Interpretation Comments POC-GLUCOSE METER 331 mg/dL 70-110 H Notified Rina Low MD/TESTED ([facility]) (test code = AT [address] 1538) [facility] 7703 0 POCT-GLUCOSE [id number] 10:55:00 Test Item Value Reference Range Interpretation Comments POC-GLUCOSE METER 365 mg/dL 70-110 H TESTED AT [place] [address] ([facility]) (test code = ELIZABETH Flynn [facility] 1538) [address] POCT-GLUCOSE [id number] 08:44:00 Test Item Value Reference Range Interpretation Comments POC-GLUCOSE METER 291 mg/dL 70-110 H TESTED AT [place] [address] ([facility]) (test code = ELIZABETH Flynn [facility] 1538) [address] LIPID [id number] 05:56:00 Test Item Value Reference Range Interpretation Comments TRIGLYCERIDES ([facility]) (test code = 279 mg/dL 540) CHOLESTEROL ([facility]) (test code = 119 mg/dL 631) HDL CHOLESTEROL ([facility]) (test code 22 mg/dL = 976) LDL CHOLESTEROL CALCULATED ([facility]) 41 mg/dL (test code = 633) Triglyceride Reference Range: Low Risk <150 Borderline 150-199 High Risk 200-499 Very High Risk >=500Cholesterol Reference Range: Low Risk <200 Borderline 200-239 High Risk >240HDL Cholesterol Reference Range: Low Risk >=60 High Risk <40LDL Cholesterol Reference Range: Optimal <100 Near Optimal 100-129 Borderline 130-159 High 160-189 Very High >=190POCT-GLUCOSE [id number] 21:50:00 Test Item Value Reference Range Interpretation Comments POC-GLUCOSE METER 318 mg/dL 70-110 H TESTED AT [place] [address] ([facility]) (test code = ELIZABETH Flynn [facility] 1538) [address] POCT-GLUCOSE [id number] 18:04:00 Test Item Value Reference Range Interpretation Comments POC-GLUCOSE METER 238 mg/dL 70-110 H TESTED AT [place] [address] ([facility]) (test code = ELIZABETH Flynn [place] 1538) [address] POCT-GLUCOSE [id number] 12:22:00 Test Item Value Reference Range Interpretation Comments POC-GLUCOSE METER 290 mg/dL 70-110 H TESTED AT [place] [address] ([facility]) (test code = ELIZABETH Flynn [facility] 1538) [address] POCT-GLUCOSE [id number] 09:20:00 Test Item Value Reference Range Interpretation Comments POC-GLUCOSE METER 293 mg/dL 70-110 H TESTED AT [place] [address] ([facility]) (test code = ELIZABETH Flynn [place] 1538) [address] POCT-GLUCOSE [id number] 21:00:00 Test Item Value Reference Range Interpretation Comments POC-GLUCOSE METER 225 mg/dL 70-110 H TESTED AT [place] [address] ([facility]) (test code = ELIZABETH Flynn [place] 1538) [address] CT, CAROTID, [id number] 18:01:00FINAL REPORT CT angiogram of the upper [...] Hall Verified Date/Time: 08/30/2017 18:01:31 Reading Location: [address] Neuro Reading Room , CTANGIO [id number] 18:01:00FINAL REPORT CT angiogram of the upper [...] [place] Verified Date/Time: 08/30/2017 18:01:31 Reading Location: [facility] C013V Neuro Reading Room -GLUCOSE [id number] 17:21:00 Test Item Value Reference Range Interpretation Comments POC-GLUCOSE METER 256 mg/dL 70-110 H TESTED AT [place] [address] (BEAKER) (test code = [facility] 1538) [address] POCT-GLUCOSE [id number] 12:00:00 Test Item Value Reference Range Interpretation Comments POC-GLUCOSE METER 289 mg/dL 70-110 H TESTED AT [place] [address] (BEAKER) (test code = [facility] 1538) [address] BASIC METABOLIC [id number] 10:12:00 Test Item Value Reference Range Interpretation [...] NOT APPLICABLE FOR DIALYSIS PATIEN TS. POCT-GLUCOSE [id number] 08:42:00 Test Item Value Reference Range Interpretation Comments POC-GLUCOSE METER 259 mg/dL 70-110 H TESTED AT [place] [address] [facility] (test code = [facility] 1538) [address] TROPONIN [id number] 06:14:00 Test Item Value Reference Range Interpretation [...] = 2801) RAD, CHEST, 1 VIEW, NON [id number] 04:23:00Reason for exam:->chest painShould this be performed at the bedside?->YesFINAL REPORT Comparison examination: None No pneumothorax, focal pulmonary co nsolidation, or significant pleural effusion. Normal cardiomediastinal contours. Normal skeleton and soft tissues. Impression: No acute abnormality. Signed: Ervin Jenkins Verified Date/Time: 08/30/2017 04:23:04 Reading Location: [address] Reading Room POCT-GLUCOSE [id number] 21:18:00 Test Item Value Reference Range Interpretation Comments POC-GLUCOSE METER 151 mg/dL 70-110 H TESTED AT [place] [address] ([facility]) (test code = [facility] Rina [facility] 1538) [address] POCT-GLUCOSE [id number] 17:59:00 Test Item Value Reference Range Interpretation Comments POC-GLUCOSE METER 146 mg/dL 70-110 H TESTED AT [place] [id number] ([facility]) (test code = [facility] Rina [facility] 1538) [address] HEMOGLOBIN [id number] 15:56:00 Test Item Value Reference Range Interpretation Comments HEMOGLOBIN A1C ([facility]) (test code = 13.7 % 4.3-6.1 H 368) CT, BRAIN, WITHOUT [id number] 14:52:00FINAL REPORT CT head without contrast. Comparisons: [...] Hall Verified Date/Time: 08/29/2017 14:52:09 Reading Location: [address] Neuro Reading Room POCT-GLUCOSE [id number] 14:17:00 Test Item Value Reference Range Interpretation Comments POC-GLUCOSE METER 423 mg/dL 70-110 Notified Rina Low MD/TESTED (JESSICA) (test code = AT [facility] [address] [facility] 1538) [facility] 7703 0 VITAMIN [id number] 06:48:00 Test Item Value Reference Range Interpretation Comments VITAMIN B12 ([facility]) (test code = 300 pg/mL 213-540 264) TSH/FREE T4 IF [id number] 06:48:00 Test Item Value Reference Range Interpretation Comments THYROID STIMULATING HORMONE 1.55 uIU/mL 0.35-4.94 ([facility]) (test code = 772) CBC W/PLT COUNT & AUTO [id number] 05:10:00 Test Item Value Reference Range Interpretation Comments WHITE BLOOD CELL COUNT ([facility]) 8.6 K/ L 3.5-10.5 (test code = 775) RED BLOOD CELL COUNT ([facility]) 4.62 M/ L 3.93-5.22 (test code = 761) HEMOGLOBIN ([facility]) (test code = 12.2 GM/DL 11.2-15.7 410) [...] (BEAKER) (test code = 2801) URINALYSIS W/ [id number] 23:32:00 Test Item Value Reference Range Interpretation [...] Occasional SOURCE(BEAKER) (test code = 2795) TROPONIN [id number] 23:12:00 Test Item Value Reference Range Interpretation [...] acute neurological disease, and persistent tachyarrhythmia.BASIC METABOLIC [id number] 23:05:00 Test Item Value Reference Range Interpretation [...] NOT APPLICABLE FOR DIALYSIS PATIEN TS. POCT-GLUCOSE [id number] 20:49:00 Test Item Value Reference Range Interpretation Comments POC-GLUCOSE METER 376 mg/dL 70-110 H Notified R N /TESTED (BEAKER) (test code = AT [facility] [address] 3[address]) [facility] 7703 0
--- NOTE | 2020-05-23 15:48 | RAD REPORT ---
EXAM DESCRIPTION: CT - Head Brain Wo Cont - 05/23/2020 3:40 pm CLINICAL HISTORY: facial infection;Headache Headache, drowsiness COMPARISON: Head Brain Wo Cont dated 12/19/2019; Head Brain Wo Cont dated 12/16/2019 TECHNIQUE: All CT scans are performed using dose optimization technique as appropriate and may inclu de automated exposure control or mA/KV adjustment according to patient size. FINDINGS: No intracranial hemorrhage, hydrocephalus or extra-axial fluid collection.Mild brain atrop hy is seen.No areas of brain edema or evidence of midline shift. The paranasal sinuses and mastoids are clear. The calvarium is intact. IMPRESSION: No acute intracranial abnormality.
--- NOTE | 2020-05-23 16:09 | EDPHYS ---
Physician Documentation [facility] Name: Elly Clarke Age: 50 yrs Sex: Female : 1970 Arrival Date: 05/23/2020 Time: 14:07 Bed 24 Private MD: ED Physician Wil Patterson HPI: 05/23 16:04 This 50 yrs old Female presents to ER via Ambulatory with complaints of rn Facial Swelling - redness, Abscess. 16:04 the patient presents with a swollen area of the face. Description: erythematous, rn swollen. Onset: The symptoms/episode began/occurred 2 day(s) ago. Possible cause(s): unknown. Associated signs and symptoms: Pertinent positives: headache, swelling, Pertinent negatives: fever. Modifying factors: the symptoms are alleviated by nothing, the symptoms are aggravated by touching. Severity of symptoms: At their worst the symptoms were mild, in the emergency department the symptoms are unchanged. The patient has not experienced similar symptoms in the past. Reports pimple to forehead, "messed with it" the other night while laying down in bed, + increased swelling and redness, triggered a migraine of hers and sensitive to light.. 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 - Hysterectomy ca1 Historical: - Allergies: 14:24 Claritin (insomnia); ca1 14:24 Compazine (Seizures); ca1 14:24 Demerol (HEART RACING); ca1 14:24 (Hives); ca1 14:24 Morphine (RACING HEART); ca1 - Home Meds: 14:24 Ambien 10 mg Oral tab 1 tab once daily for Sleep-Onset Insomnia [Active]; butorphanol ca1 tartrate 10 mg/mL nasal spry 1 spray as needed for Migraine [Active]; carvedilol Oral 1 tab 2 times per day [Active]; clonazepam 1 mg Oral tab 1 tab 2 times per day [Active]; metformin 500 mg Oral tab 1 tab 2 times per day [Active]; tizanidine 2 mg Oral cap 2 caps twice a day [Active]; - PMHx: 14:24 Arthritis; Chronic pain; Chrohns; Diabetes - NIDDM; Dramatic migraine events; ca1 Gastroparesis; High Cholesterol; Hypertension; Migraines; Pancreatitis; spinal stenosis; - PSHx: 14:24 Knee surgery; Appendectomy; Hysterectomy; Cholecystectomy; ca1 - Immunization history:: Flu vaccine is not up to date. - Social history:: Smoking status: Patient denies any tobacco usage or history of. - Family history:: not pertinent. - Hospitalizations: : No recent hospitalization is reported. ROS: 16:04 Constitutional: Negative for fever, chills, and weight loss, Eyes: Negative for injury, rn pain, redness, and discharge, ENT: + facial swelling Cardiovascular: Negative for chest pain, palpitations, and edema, Respiratory: Negative for shortness of breath, cough, wheezing, and pleuritic chest pain, Abdomen/GI: Negative for abdominal pain, nausea, vomiting, diarrhea, and constipation, MS/Extremity: Negative for injury and deformity, Skin: Negative for injury Neuro: + headache, neg for focal weakness/numbness Exam: 16:04 Constitutional: This is a well developed, well nourished patient who is awake, alert, rn and in no acute distress. Head/Face: Normocephalic, atraumatic. Skin: Warm, + between eyebrows area of induration and erythema with central ulceration, no fluctuance, no extension to ocular areas/lids. Neuro: Awake and alert, GCS 15, oriented to person, place, time, and situation. Cranial nerves II-XII grossly intact. Motor strength 5/5 in all extremities. Sensory grossly intact. Cerebellar exam normal. Normal gait. Vital Signs: 14:20 BP 133 / 96; Pulse 89; Resp 16 S; Temp 97.3(TE); Pulse Ox 97% on R/A; Weight 93.44 kg ca1 (R); Height 5 ft. 7 in. (170.18 cm) (R); Pain 7/10; 16:41 BP 104 / 63; Pulse 88; Resp 16; Pulse Ox 93% on R/A; zb 14:20 Body Mass Index 32.26 (93.44 kg, 170.18 cm) ca1 MDM: 15:23 Patient medically screened. rn 16:04 Differential diagnosis: abscess, cellulitis. Data reviewed: vital signs, nurses notes, rn and as a result, I will discharge patient. Counseling: I had a detailed discussion with the patient and/or guardian regarding: the historical points, exam findings, and any diagnostic results supporting the discharge/admit diagnosis, lab results, radiology results, the need for outpatient follow up, to return to the emergency department if symptoms worsen or persist or if there are any questions or concerns that arise at home. Special discussion: I discussed with the patient/guardian in detail that at this point there is no indication for admission to the hospital. It is understood, however, that if the symptoms persist or worsen the patient needs to return immediately for re-evaluation. ED course: No fluctuance, ct head neg for backward extension of infection, will dc home with abx.. 05/23 15:31 Order name: CT Head Brain wo Cont; Complete Time: 15:49 rn 05/23 15:31 Order name: IV Start; Complete Time: 16:01 rn Administered Medications: 16:00 Drug: Clindamycin 600 mg Route: IVPB; Infused Over: 30 mins; Site: left antecubital; zb 16:40 Follow up: Response: No adverse reaction; IV Status: Completed infusion; IV Intake: 50mlzb 16:00 Drug: fentaNYL (PF) 50 mcg Route: IVP; Site: left antecubital; zb 16:40 Follow up: Response: No adverse reaction; Pain is decreased; RASS: Alert and Calm (0) zb 16:00 Drug: Phenergan 12.5 mg Route: IVP; Site: left antecubital; zb 16:41 Follow up: Response: No adverse reaction; Marked relief of symptoms zb Disposition: 05/23/20 16:09 Discharged to Home. Impression: Cellulitis of face. - Condition is Stable. - Discharge Instructions: Cellulitis, Adult. - Prescriptions for Clindamycin HCl 300 mg Oral Capsule - take 1 capsule by ORAL route every 6 hours for 10 days; 40 capsule. Bactrim DS 800- 160 mg Oral Tablet - take 1 tablet by ORAL route every 12 hours for 10 days; 20 tablet. Tramadol 50 mg Oral Tablet - take 1 tablet by ORAL route every 8 hours as needed; 12 tablet. - Medication Reconciliation Form, Thank You Letter, Antibiotic Education, Prescription Opioid Use form. - Follow up: Private Physician; When: As needed; Reason: Recheck today's complaints, Re-evaluation by your physician. - Problem is new. - Symptoms have improved. Signatures: Dispatcher [employer] EDMS Wil Patterson MD MD rn Acob, NAT Montalvo RN, Zipporah, RN RN zb Corrections: (The following items were deleted from the chart) 16:45 16:09 05/23/2020 16:09 Discharged to Home. Impression: Cellulitis of face. Condition is zb Stable. Forms are Medication Reconciliation Form, Thank You Letter, Antibiotic Education, Prescription Opioid Use. Follow up: Private Physician; When: As needed; Reason: Recheck today's complaints, Re-evaluation by your physician. Problem is new. Symptoms have improved. rn
--- NOTE | 2020-05-23 16:09 | ER ---
Nurse's Notes [facility] Name: Elly Clarke Age: 50 yrs Sex: Female : 1970 Arrival Date: 05/23/2020 Time: 14:07 Bed 24 Private MD: Diagnosis: Cellulitis of face Presentation: 05/23 14:20 Chief complaint: Chief complaint: Patient states: abscess between eyebrows x 2 days. ca1 reports pain of face, swelling on both eyes and blurry vision on L eye. 14:20 Coronavirus screen: Client denies travel out of the [place] in the last 14 days. At this ca1 time, the client does not indicate any symptoms associated with coronavirus-19. Ebola Screen: Patient negative for fever greater than or equal to 101.5 degrees Fahrenheit, and additional compatible Ebola Virus Disease symptoms Patient denies exposure to infectious person. Patient denies travel to an Ebola-affected area in the 21 days before illness onset. No symptoms or risks identified at this time. Initial Sepsis Screen: Does the patient meet any 2 criteria? No. Patient's initial sepsis screen is negative. Does the patient have a suspected source of infection? No. Patient's initial sepsis screen is negative. Risk Assessment: Do you want to hurt yourself or someone else? Patient reports no desire to harm self or others. Onset of symptoms was May 23, 2020. 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 - Hysterectomy ca1 Historical: - Allergies: 14:24 Claritin (insomnia); ca1 14:24 Compazine (Seizures); ca1 14:24 Demerol (HEART RACING); ca1 14:24 (Hives); ca1 14:24 Morphine (RACING HEART); ca1 - Home Meds: 14:24 Ambien 10 mg Oral tab 1 tab once daily for Sleep-Onset Insomnia [Active]; butorphanol ca1 tartrate 10 mg/mL nasal spry 1 spray as needed for Migraine [Active]; carvedilol Oral 1 tab 2 times per day [Active]; clonazepam 1 mg Oral tab 1 tab 2 times per day [Active]; metformin 500 mg Oral tab 1 tab 2 times per day [Active]; tizanidine 2 mg Oral cap 2 caps twice a day [Active]; - PMHx: 14:24 Arthritis; Chronic pain; Chrohns; Diabetes - NIDDM; Dramatic migraine events; ca1 Gastroparesis; High Cholesterol; Hypertension; Migraines; Pancreatitis; spinal stenosis; - PSHx: 14:24 Knee surgery; Appendectomy; Hysterectomy; Cholecystectomy; ca1 - Immunization history:: Flu vaccine is not up to date. - Social history:: Smoking status: Patient denies any tobacco usage or history of. - Family history:: not pertinent. - Hospitalizations: : No recent hospitalization is reported. Screenin:11 Abuse screen: Denies threats or abuse. Denies injuries from another. Nutritional zb screening: No deficits noted. Tuberculosis screening: No symptoms or risk factors identified. Fall Risk None identified. Assessment: 15:29 Reassessment: ECP at bedside. zb 16:00 General: Appears in no apparent distress. uncomfortable, Behavior is calm, cooperative, zb appropriate for age. Pain: Complains of pain in face Pain does not radiate. Pain currently is 10 out of 10 on a pain scale. Quality of pain is described as tender, throbbing. Neuro: Level of Consciousness is awake, alert, obeys commands, Oriented to person, place, time, Horticultural Technical Officer are equal bilaterally. Cardiovascular: No deficits noted. Capillary refill < 3 seconds in bilateral Patient's skin is warm and dry. Respiratory: Airway is patent Respiratory effort is even, unlabored, Respiratory pattern is regular, symmetrical. GI: Abdomen is round non-distended. : No signs and/or symptoms were reported regarding the genitourinary system. EENT: Eyes swelling noted. Reports blurred vision in left eye. Derm: Skin is intact, Skin is dry, Skin is normal, Skin temperature is warm Abscess located on forehead is nickel sized, is hot to touch, is red, is raised. Musculoskeletal: Range of motion: intact in all extremities. 16:14 Reassessment: d/c pending completion of IV medication abx. zb 16:44 Reassessment: d/c instructions given. gait steady and even up d/c. zb Vital Signs: 14:20 BP 133 / 96; Pulse 89; Resp 16 S; Temp 97.3(TE); Pulse Ox 97% on R/A; Weight 93.44 kg ca1 (R); Height 5 ft. 7 in. (170.18 cm) (R); Pain 7/10; 16:41 BP 104 / 63; Pulse 88; Resp 16; Pulse Ox 93% on R/A; zb 14:20 Body Mass Index 32.26 (93.44 kg, 170.18 cm) ca1 ED Course: 14:07 Patient arrived in ED. as 14:23 Triage completed. ca1 14:24 Arm band placed on right wrist. ca1 15:23 Wil Patterson MD is Attending Physician. rn 15:29 Tori Avendaño RN is Primary Nurse. zb 15:40 CT Head Brain wo Cont In Process Unspecified. EDMS 16:01 Inserted saline lock: 20 gauge in left antecubital area, using aseptic technique. dh4 16:14 Patient has correct armband on for positive identification. Pulse ox on. NIBP on. Door zb closed. Noise minimized. Warm blanket given. 16:45 No provider procedures requiring assistance completed. IV discontinued, intact, zb bleeding controlled, No redness/swelling at site. Pressure dressing applied. Administered Medications: 16:00 Drug: Clindamycin 600 mg Route: IVPB; Infused Over: 30 mins; Site: left antecubital; zb 16:40 Follow up: Response: No adverse reaction; IV Status: Completed infusion; IV Intake: 50mlzb 16:00 Drug: fentaNYL (PF) 50 mcg Route: IVP; Site: left antecubital; zb 16:40 Follow up: Response: No adverse reaction; Pain is decreased; RASS: Alert and Calm (0) zb 16:00 Drug: Phenergan 12.5 mg Route: IVP; Site: left antecubital; zb 16:41 Follow up: Response: No adverse reaction; Marked relief of symptoms zb Intake: 16:40 IV: 50ml; Total: 50ml. zb Outcome: 16:09 Discharge ordered by . rn 16:45 Discharged to home ambulatory. zb 16:45 Condition: stable 16:45 Discharge instructions given to patient, Instructed on discharge instructions, follow up and referral plans. medication usage, Demonstrated understanding of instructions, follow-up care, medications, Prescriptions given X 3. 16:45 Patient left the ED. zb Signatures: Dispatcher [employer] Lashell Perez Roman, MD MD rn Katia Wan RN RN ca1 Law Skelton 4 Tori Avendaño RN RN zb Corrections: (The following items were deleted from the chart) 14:20 Chief complaint: ca1 ca1
[2020-05-23] MEDS ORDERED: PROMETHAZINE INJ 25 MG/ML AMP ONE (16:10)
[2020-05-23] MEDS ORDERED: FENTANYL CITR 100 MCG/2 ML ONE (16:10)
[2020-05-23] MEDS ORDERED: CLINDAMYCIN 600MG/D5W 600 MG/50 ML BAG IV ONE (16:11)
[2020-05-23 19:01] VITALS: TEMP 97.3
[2020-05-23 19:02] VITALS: BP 104/63; O2SAT 93
== END 2020-05-23 16:45 | disposition home or self-care (01) ==
LOC: ER 14:06
DX: L03.211 Cellulitis of face (principal); E11.43 Type 2 diabetes mellitus with diabetic autonomic (poly)neuropathy; K31.84 Gastroparesis; M19.90 Unspecified osteoarthritis, unspecified site; K50.90 Crohn's disease, unspecified, without complications; G89.29 Other chronic pain; E78.00 Pure hypercholesterolemia, unspecified; I10 Essential (primary) hypertension
CPT/HCPCS: 70450; 96365; 96375; 99284; J2550; J3010

== ENCOUNTER 2020-07-11 03:15 | Emergency (ER) | payer OTHER, SELFPAY ==
--- OUTSIDE RECORDS SUMMARY | 2020-07-11 03:19 | XMS REPORT | Continuity of Care Document ---
:1970 Author Organization [facility] t Address [address] [place] [address] Care Team Providers Name Role Phone Fahad Curran MD Primary Care Physician Doctor Unassigned, Name Attending Clinician Unavailable Isaias DEGROOT S Attending Clinician Olinda SOUZA S Attending Clinician Laurel JOHNS Attending Clinician Unavailable Isauro RN Attending Clinician Unavailable BRENNEN Attending Clinician Unavailable BRENNEN Admitting Clinician Unavailable Problems Condition Condition Condition Status Onset Resolution Last Treating Co mments Source Name Details Category Date Date Treatment Clinician Date Left sided Left sided Disease Active [facility]: [facility] 00 [place] Neurologic Neurologic Disease Active [facility] - symptoms symptoms 00:00: Medica l 00 Center Allergies, Adverse Reactions, Alerts Allergy Allergy Status Severity Reaction(s) Onset Inactive Treating Comm ents Source Name Type Date Date Clinician [place] Propi Active Other (See hyperacti [facility]-Pseud [facility] to Comments) 08-28 [facility] - oephedri adverse 00:00: Medical ne reaction 00 Center s Gerard Bashir Active Other (See Seizures [facility] [...] Date Quantity Comments Source Sex Assigned At [facility] Tobacco use and 2017-08-28 2017-08-28 Never used [facility] kes - exposure 00:00:00 00:00:00 Medical Center Smoking Status Start Date Stop Date Source Never smoker [facility] edical Center Medications Ordered Filled Start Stop Current Ordering Indication Dosage Frequency Signature Comments Components Source Medication Medication Date Date Medication? Clinician (SIG) Name Name traMADol Yes 50mg Q.5D Take [address] [facility] (ULTRAM) 50 6-05 by mouth 2 Yu kes - mg tablet 18:22: (two) Medical 22 times Center daily. butorphanol Yes 1{spray 1 spray by [facility] [...] Test 00:00:00 (procedure) [code = Medical Center 83930762] Future Scheduled 2019-11-29 INFLUENZA VACCINE (#1) [facility] - Test 00:00:00 [code = INFLUENZA Medical Ce nter VACCINE (#1)] Future Scheduled 2017-11-[address] [facility] kes - Test 00:00:00 measurement Medical Center (procedure) [code = 19696485] Future Scheduled [address] [facility] - Test 00:00:00 [facility] cervix (procedure) [code = 351066185] Future Scheduled 1979 DIABETIC EYE EXAM [facility] - Test 00:00:00 [code = DIABETIC EYE Medical Center EXAM] Future Scheduled 1979 Urine screening for [facility] - Test 00:00:00 protein (procedure) Medical Center [code = 562969100] Future Scheduled [address] [facility] - Test 00:00:00 0-64 YRS (1 of 1 - Medical C enter PPSV23) [code = PNEUMOCOCCAL VACCINE 0-64 YRS (1 of 1 - PPSV23)] Future Scheduled [address] [facility] - Test 00:00:00 [facility] breast (procedure) [code = 281412284] Future Scheduled [address] [facility] - Test 00:00:00 [facility] colon (procedure) [code = 423777822] Encounters Start End Encounter Admission Attending Care Care Encounter Source Date/Time Date/Time Type Type Clinicians Facility Department ID 2020-06-17 2020-06-17 Orders Doctor IQRA [id number] 00:00:00 00:00:00 Only Unassigned, GREGORY [id number] [place] [facility] [id number] [id number] 2020-05-19 2020-05-19 Emergency [place], [facility] [id number] 15:45:00 18:07:00 Pastora Suarez [id number] [place] 4.2.7.2.686 [place] [id number] 2019-08-21 2019-08-22 Emergency [facility], [facility] [id number] 23:48:04 02:26:00 Jose Cruz Suarez [id number] [place] 4.2.7.2.686 [place] [id number] 2019-08-06 2019-08-06 Telephone IQRA Barragan [id number] 00:00:00 00:00:00 Apoorva JENKINS 350.1.13.10 [facility] [id number] [id number] 2019-08-06 2019-08-06 Telephone [facility] Box [id number] 00:00:00 00:00:00 Jinny JENKINS 350.1.13.10 [facility] 4.2.7.2.686 [id number] 2019-08-05 2019-08-05 Telephone [facility] Box [id number] 00:00:00 00:00:00 Jinny JENKINS 350.1.13.10 [facility] 4.2.7.2.686 [id number] Results Test Description Test Time Test Comments Results Result Comments Source POCT-GLUCOSE METER 2017-09-01 17:07:00 Test Item Value Reference Range Interpretation Comme nts POC-GLUCOSE METER ([facility]) (test 298 mg/dL 70-110 H TESTED AT [address] code = 1538) [facility] [address] POCT-GLUCOSE [id number] 12:11:00 Test Item Value Reference Range Interpretation Comments POC-GLUCOSE METER 331 mg/dL 70-110 H Notified R Devante SOUZA/TESTED ([facility]) (test code = AT [place] [address] [address] [address]) [facility] 7[address] 0 POCT-GLUCOSE [id number] 10:55:00 Test Item Value Reference Range Interpretation Comments POC-GLUCOSE METER 365 mg/dL 70-110 H TESTED AT [place] [address] ([facility]) (test code = ELIZABETH Flynn [facility] 1538) [address] POCT-GLUCOSE [id number] 08:44:00 Test Item Value Reference Range Interpretation Comments POC-GLUCOSE METER 291 mg/dL 70-110 H TESTED AT [place] [address] ([facility]) (test code = ELIZABETH Flynn [facility] 1538) [address] LIPID [id number] 05:56:00 Test Item Value Reference Range Interpretation Comments TRIGLYCERIDES ([facility]) (test code = 279 mg/dL 540) CHOLESTEROL ([facility]) (test code = 119 mg/dL 631) HDL CHOLESTEROL ([facility]) (test code 22 mg/dL = 976) LDL CHOLESTEROL CALCULATED ([facility]) 41 mg/dL (test code = 633) Triglyceride Reference Range: Low Risk <150 Borderline 150-199 High Risk 200-499 Very High Risk >=500Cholesterol Reference Range: Low Risk <200 Borderline 200-239 High Risk >240HDL Cholesterol Reference Range: Low Risk >=60 High Risk <40LDL Cholesterol Reference Range: Optimal <100 Near Optimal 100-129 Borderline 130-159 High 160-189 Very High >=190POCT-GLUCOSE [id number] 21:50:00 Test Item Value Reference Range Interpretation Comments POC-GLUCOSE METER 318 mg/dL 70-110 H TESTED AT [place] [address] ([facility]) (test code = ELIZABETH Flynn [place] 1538) [address] POCT-GLUCOSE [id number] 18:04:00 Test Item Value Reference Range Interpretation Comments POC-GLUCOSE METER 238 mg/dL 70-110 H TESTED AT [place] [address] ([facility]) (test code = ELIZABETH Flynn [place] 1538) [address] POCT-GLUCOSE [id number] 12:22:00 Test Item Value Reference Range Interpretation Comments POC-GLUCOSE METER 290 mg/dL 70-110 H TESTED AT [place] [address] ([facility]) (test code = CHRISTROXANNE Flynn [place] 1538) [address] POCT-GLUCOSE [id number] 09:20:00 Test Item Value Reference Range Interpretation Comments POC-GLUCOSE METER 293 mg/dL 70-110 H TESTED AT [place] [address] ([facility]) (test code = CHRISTROXANNE Flynn [place] 1538) [address] POCT-GLUCOSE [id number] 21:00:00 Test Item Value Reference Range Interpretation Comments POC-GLUCOSE METER 225 mg/dL 70-110 H TESTED AT [place] [address] ([facility]) (test code = CHRISTROXANNE Flynn [place] 1538) [address] CT, CAROTID, [id number] 18:01:00FINAL REPORT CT angiogram of the upper [...] Petersen Verified Date/Time: 08/30/2017 18:01:31 Reading Location: [address] Neuro Reading Room , CTANGIO [id number] 18:01:00FINAL REPORT CT angiogram of the upper [...] [place] Verified Date/Time: 08/30/2017 18:01:31 Reading Location: [facility] C013V Neuro Reading Room -GLUCOSE [id number] 17:21:00 Test Item Value Reference Range Interpretation Comments POC-GLUCOSE METER 256 mg/dL 70-110 H TESTED AT [place] [address] ([facility]) (test code = CHRISTROXANNE Rina [facility] 1538) [address] POCT-GLUCOSE [id number] 12:00:00 Test Item Value Reference Range Interpretation Comments POC-GLUCOSE METER 289 mg/dL 70-110 H TESTED AT [place] [address] ([facility]) (test code = CHRISTIL Rina [facility] 1538) [address] BASIC METABOLIC [id number] 10:12:00 Test Item Value Reference Range Interpretation [...] NOT APPLICABLE FOR DIALYSIS PATIEN TS. POCT-GLUCOSE [id number] 08:42:00 Test Item Value Reference Range Interpretation Comments POC-GLUCOSE METER 259 mg/dL 70-110 H TESTED AT [facility] 6720 (BEAKER) (test code = ELIZABETH [place] 1538) [address] TROPONIN [id number] 06:14:00 Test Item Value Reference Range Interpretation [...] = 2801) RAD, CHEST, 1 VIEW, NON [id number] 04:23:00Reason for exam:->chest painShould this be performed at the bedside?->YesFINAL REPORT Comparison examination: None No pneumothorax, focal pulmonary co nsolidation, or significant pleural effusion. Normal cardiomediastinal contours. Normal skeleton and soft tissues. Impression: No acute abnormality. Signed: Ervin Jenkins Verified Date/Time: 08/30/2017 04:23:04 Reading Location: [address] Reading Room POCT-GLUCOSE [id number] 21:18:00 Test Item Value Reference Range Interpretation Comments POC-GLUCOSE METER 151 mg/dL 70-110 H TESTED AT [facility] 67[address] ([facility]) (test code = ELIZABETH [place] 1538) [address] POCT-GLUCOSE [id number] 17:59:00 Test Item Value Reference Range Interpretation Comments POC-GLUCOSE METER 146 mg/dL 70-110 H TESTED AT [facility] 67[address] (JESSICA) (test code = ELIZABETH Flynn [facility] 1538) [address] HEMOGLOBIN [id number] 15:56:00 Test Item Value Reference Range Interpretation Comments HEMOGLOBIN A1C (JESSICA) (test code = 13.7 % 4.3-6.1 H 368) CT, BRAIN, WITHOUT [id number] 14:52:00FINAL REPORT CT head without contrast. Comparisons: [...] Petersen Verified Date/Time: 08/29/2017 14:52:09 Reading Location: [address] Neuro Reading Room POCT-GLUCOSE [id number] 14:17:00 Test Item Value Reference Range Interpretation Comments POC-GLUCOSE METER 423 mg/dL 70-110 HH Notified R Devante SOUZA/TESTED (JESSICA) (test code = AT [facility] [address] [facility] 1538) [facility] 7703 0 VITAMIN [id number] 06:48:00 Test Item Value Reference Range Interpretation Comments VITAMIN B12 (JESSICA) (test code = 300 pg/mL 213-840 224) TSH/FREE T4 IF [id number] 06:48:00 Test Item Value Reference Range Interpretation Comments THYROID STIMULATING HORMONE 1.55 uIU/mL 0.35-4.94 (JESSICA) (test code = 772) CBC W/PLT COUNT & AUTO [id number] 05:10:00 Test Item Value Reference Range Interpretation [...] (BEAKER) (test code = 2801) URINALYSIS W/ [id number] 23:32:00 Test Item Value Reference Range Interpretation [...] = 1585) Occasional SOURCE(BEAKER) (test code = 3140) TROPONIN [id number] 23:12:00 Test Item Value Reference Range Interpretation [...] acute neurological disease, and persistent tachyarrhythmia.BASIC METABOLIC [id number] 23:05:00 Test Item Value Reference Range Interpretation [...] NOT APPLICABLE FOR DIALYSIS PATIEN TS. POCT-GLUCOSE [id number] 20:49:00 Test Item Value Reference Range Interpretation Comments POC-GLUCOSE METER 376 mg/dL 70-110 H Notified R Devante SOUZA/TESTED (BEAKER) (test code = AT [facility] [address] [address]) [facility] 7[address] 0
[2020-07-11] MEDS ORDERED: FENTANYL CITR 100 MCG/2 ML ONE ×2 (04:37→10:00)
[2020-07-11] MEDS ORDERED: ONDANSETRON 4 MG (ODT) TAB ONE (04:38)
[2020-07-11] MEDS ORDERED: NA CHLORIDE 0.9% 1,000 ML ONE (04:38)
[2020-07-11] MEDS ORDERED: ASPIRIN 81 MG CHEWABLE TABLET ONE (05:36)
[2020-07-11 05:53] LABS: Absolute Lymphocytes (CBC) 2.3 K/uL (0.7-4.9); Hematocrit 37.6 % (36.0-45.0); Lymphocytes % 46.3 % (15.3-44.8); MPV 9.2 fL (7.6-11.3); RBC Red Blood Cell Count 4.73 M/uL (3.86-4.86)
[2020-07-11] MEDS ORDERED: ONDANSETRON 4 MG/2 ML VIAL ONE (06:12)
[2020-07-11 06:14] LABS: Protime INR 1.01
[2020-07-11] MEDS ORDERED: FAMOTIDINE 20 MG/2 ML VIAL IV ONE (06:22)
[2020-07-11 06:24] LABS: ALT/SGPT 25 U/L (12-78); AST/SGOT 10 U/L (15-37); Albumin 3.1 g/dL (3.4-5.0); Alkaline Phosphatase 105 U/L (45-117); BUN Blood Urea Nitrogen 11 mg/dL (7-18); Bicarbonate 27 mmol/L (21-32); Bilirubin Direct < 0.1 mg/dL (0-0.2); Bilirubin Total 0.2 mg/dL (0.2-1.0); Glucose Level 349 mg/dL (74-106); Magnesium 1.7 mg/dL (1.8-2.4); NT PRO-BNP 49 pg/mL (<125); Potassium 3.7 mmol/L (3.5-5.1); Protein, Total 6.7 g/dL (6.4-8.2); Sodium Level 138 mmol/L (136-145); Troponin (Emerg Dept Use Only) < 0.02 ng/mL (0.0-0.045)
[2020-07-11] MEDS ORDERED: lisinopriL 10 MG TAB ONE (06:37)
--- NOTE | 2020-07-11 06:56 | RAD REPORT ---
EXAM DESCRIPTION: RAD - Chest Single View - 07/11/2020 3:45 am CLINICAL HISTORY: CHEST PAIN COMPARISON: Portable November 2019 TECHNIQUE: AP portable chest image was obtained 07/11/2020 3:45 am . FINDINGS: Lungs are clear. Heart and vasculature are normal. No measurable pleural effusion and no p neumothorax. No acute bony abnormality seen. No acute aortic findings suspected. IMPRESSION: No acute cardiopulmonary process. No significant change from comparison study.
[2020-07-11] MEDS ORDERED: HYDROCODONE/APAP 10/325 TAB ONE (09:58)
[2020-07-11] MEDS ORDERED: PROMETHAZINE INJ 25 MG/ML AMP ONE (09:58)
--- NOTE | 2020-07-11 10:13 | EDPHYS ---
Physician Documentation [facility] Name: Elly Clarke Age: 50 yrs Sex: Female : 1970 Arrival Date: 07/11/2020 Time: 03:16 Bed 30 Private MD: ED Physician George Stern HPI: 07/11 05:51 This 50 yrs old Female presents to ER via Ambulatory with complaints of Chest zoe Pain, Headache, Nausea. 05:51 The patient or guardian reports chest pain that is located primarily in the anterior zoe chest wall, left. Onset: this morning, last night. The pain radiates to Associated signs and symptoms: Pertinent positives: nausea. The chest pain is described as a pressure. Duration: The patient or guardian reports multiple episodes, with no pattern. Modifying factors: The symptoms are alleviated by nothing. the symptoms are aggravated by nothing. Severity of pain: At its worst the pain was mild in the emergency department the pain is unchanged. The patient has not experienced similar symptoms in the past. 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 - Social history:: Smoking status: Patient denies any tobacco usage or history of. - Family history:: not pertinent. ROS: 05:51 Constitutional: Negative for fever, chills, and weight loss, Eyes: Negative for injury, zoe pain, redness, and discharge, ENT: Negative for injury, pain, and discharge, Neck: Negative for injury, pain, and swelling, Respiratory: Negative for shortness of breath, cough, wheezing, and pleuritic chest pain, Abdomen/GI: Negative for abdominal pain, nausea, vomiting, diarrhea, and constipation, Back: Negative for injury and pain, : Negative for injury, bleeding, discharge, and swelling, MS/Extremity: Negative for injury and deformity, Skin: Negative for injury, rash, and discoloration, Neuro: Negative for headache, weakness, numbness, tingling, and seizure, Psych: Negative for depression, anxiety, suicide ideation, homicidal ideation, and hallucinations, Allergy/Immunology: Negative for hives, rash, and allergies, Endocrine: Negative for neck swelling, polydipsia, polyuria, polyphagia, and marked weight changes, Hematologic/Lymphatic: Negative for swollen nodes, abnormal bleeding, and unusual bruising. 05:51 Cardiovascular: Positive for chest pain. Exam: 05:51 Constitutional: This is a well developed, well nourished patient who is awake, alert, zoe and in no acute distress. Head/Face: Normocephalic, atraumatic. Eyes: Pupils equal round and reactive to light, extra-ocular motions intact. Lids and lashes normal. Conjunctiva and sclera are non-icteric and not injected. Cornea within normal limits. Periorbital areas with no swelling, redness, or edema. ENT: Nares patent. No nasal discharge, no septal abnormalities noted. Tympanic membranes are normal and external auditory canals are clear. Oropharynx with no redness, swelling, or masses, exudates, or evidence of obstruction, uvula midline. Mucous membranes moist. Neck: Trachea midline, no thyromegaly or masses palpated, and no cervical lymphadenopathy. Supple, full range of motion without nuchal rigidity, or vertebral point tenderness. No Meningismus. Chest/axilla: Normal chest wall appearance and motion. Nontender with no deformity. No lesions are appreciated. Cardiovascular: Regular rate and rhythm with a normal S1 and S2. No gallops, murmurs, or rubs. Normal PMI, no JVD. No pulse deficits. Respiratory: Lungs have equal breath sounds bilaterally, clear to auscultation and percussion. No rales, rhonchi or wheezes noted. No increased work of breathing, no retractions or nasal flaring. Abdomen/GI: Soft, non-tender, with normal bowel sounds. No distension or tympany. No guarding or rebound. No evidence of tenderness throughout. Back: No spinal tenderness. No costovertebral tenderness. Full range of motion. Skin: Warm, dry with normal turgor. Normal color with no rashes, no lesions, and no evidence of cellulitis. MS/ Extremity: Pulses equal, no cyanosis. Neurovascular intact. Full, normal range of motion. Neuro: Awake and alert, GCS 15, oriented to person, place, time, and situation. Cranial nerves II-XII grossly intact. Motor strength 5/5 in all extremities. Sensory grossly intact. Cerebellar exam normal. Normal gait. Psych: Awake, alert, with orientation to person, place and time. Behavior, mood, and affect are within normal limits. 05:51 Musculoskeletal/extremity: ROM: no acute changes, intact in all extremities, full active range of motion, full passive range of motion, Circulation is intact in all extremities. Sensation intact. Compartment Syndrome exam of affected extremity: is normal. Weight bearing: able to fully bear weight, without difficulty, DVT Exam: No signs of deep vein thrombosis. no pain, no swelling, no tenderness, negative Homans' sign noted on exam, no appreciated bluish discoloration, no erythema, no increased warmth. 06:09 ECG was reviewed by the Attending Physician. [facility] Vital Signs: 03:25 BP 154 / 106; Pulse 93; Resp 18; Temp 98.4(O); Pulse Ox 100% on R/A; Weight 96.62 kg; em Height 5 ft. 7 in. (170.18 cm); Pain 8/10; 04:10 BP 143 / 67; Pulse 82; Resp 20; Pulse Ox 97% ; rr5 05:24 BP 133 / 75; Pulse 80; Resp 19; Pulse Ox 98% ; rr5 05:50 BP 150 / 99; Pulse 76; Resp 18; Pulse Ox 98% ; ea 06:40 BP 148 / 85; Pulse 75; Resp 17; Pulse Ox 99% ; rr5 07:50 BP 122 / 55; Pulse 74; Resp 18; Pulse Ox 98% on R/A; Pain 9/10; ld1 09:07 BP 94 / 73; Pulse 72; Resp 16; Pulse Ox 96% on R/A; ld1 09:46 BP 167 / 84; Pulse 78; Resp 16 S; iw 03:25 Body Mass Index 33.36 (96.62 kg, 170.18 cm) em Procedures: 06:06 Peripheral line: by aseptic technique a peripheral line was placed in the right [facility] external jugular vein. MDM: 04:55 Patient medically screened. zoe 05:54 Differential diagnosis: abnormal EKG, acute myocardial infarction, anxiety, chest wall zoe pain, pancreatitis, peptic ulcer disease, stable angina, unstable angina. HEART Score: History: Slightly Suspicious (0), ECG: Non specific repolarization disturbance / LBTB / PM (1), Age: > 45 and < 65 years (1), Risk Factors: > or = 3 Risk factors for atherosclerotic disease (2), [Hypertension] [DM] [+ Family HX] [Obesity] Troponin: < or = 1 x Normal Limit (0). The patient was given aspirin in the Emergency Department. The patient's deep vein thrombosis risk score was calculated as follows: Total Score: 0. This patient was found to be at low risk for a deep vein thrombosis by using the Well's assessment criteria. The patient's pulmonary embolism risk score was calculated as follows: Total Score: 0-2 points. This patient was found to be at low risk for a pulmonary embolism by using the Well's assessment criteria. [place] Risk Score: 1 - Three or more CAD risk factors, TOTAL SCORE = 1. Data reviewed: vital signs, nurses notes, lab test result(s), EKG, radiologic studies, plain films. Data interpreted: gambling monitor: rate is 98 beats/min, rhythm is regular, Pulse oximetry: on room air is 98 %. Test interpretation: by ED physician or midlevel provider: ECG, plain radiologic studies. Counseling: I had a detailed discussion with the patient and/or guardian regarding: the historical points, exam findings, and any diagnostic results supporting the discharge/admit diagnosis, lab results, radiology results, the need for outpatient follow up, for definitive care, a can cleaner, a family practitioner. 07/11 03:25 Order name: Basic Metabolic Panel; Complete Time: 08:28 em 07/11 03:25 Order name: CBC with Diff; Complete Time: :07/11 03:25 Order name: LFT's; Complete Time: :07/11 03:25 Order name: Magnesium; Complete Time: :07/11 03:25 Order name: NT PRO-BNP; Complete Time: 08:28 07/11 03:25 Order name: PT-INR; Complete Time: 08:07/11 03:25 Order name: Troponin (emerg Dept Use Only); Complete Time: 08:28 em 07/11 03:25 Order name: XRAY Chest (1 view); Complete Time: 08:28 em 07/11 06:05 Order name: Troponin (emerg Dept Use Only): 800am; Complete Time: 08:48 [facility] 07/11 08:08 Order name: D-Dimer; Complete Time: 09:10 kdr 07/11 03:25 Order name: EKG; Complete Time: 03:26 em 07/11 03:25 Order name: Cardiac monitoring; Complete Time: 03:30 em 07/11 03:25 Order name: EKG - Nurse/Tech; Complete Time: 03:30 em 07/11 03:25 Order name: IV Saline Lock; Complete Time: 04:11 em 07/11 03:25 Order name: Labs collected and sent; Complete Time: 04:11 em 07/11 03:25 Order name: O2 Per Protocol; Complete Time: 03:31 em 07/11 03:25 Order name: O2 Sat Monitoring; Complete Time: 03:31 em EC:09 Rate is 90 beats/min. Rhythm is regular. QRS [place] is Normal. HI interval is normal. QRS zoe interval is normal. QT interval is normal. No Q waves. T waves are Normal. No ST changes noted. Clinical impression: NSR w/ Non-specific ST/T Changes and No evidence of ischemia. Interpreted by me. Reviewed by me. Administered Medications: 04:24 Drug: fentaNYL (PF) 25 mcg Route: IVP; Site: left antecubital; ea 05:24 Follow up: Response: No adverse reaction; Pain is unchanged, physician notified; RASS: rr5 Alert and Calm (0) 05:47 Follow up: Response: No adverse reaction ea 04:24 Drug: Zofran (Ondansetron) 4 mg Route: IVP; Site: left antecubital; ea 05:47 Follow up: Response: No adverse reaction ea 05:48 Follow up: Response: No adverse reaction rr5 04:24 Drug: NS 0.9% 1000 ml Route: IV; Rate: 1 bolus; Site: left antecubital; ea 05:47 Follow up: Response: No adverse reaction; IV Status: Completed infusion; IV Intake: rr5 1000ml 05:24 Drug: fentaNYL (PF) 25 mcg Route: IVP; Site: left upper arm; ea 06:13 Follow up: Response: No adverse reaction ea 05:55 Drug: Zofran (Ondansetron) 4 mg Route: IVP; Site: left upper arm; rr5 06:13 Follow up: Response: No adverse reaction ea 05:58 Drug: Aspirin Chewable Tablet 324 mg Route: PO; ea 06:29 Follow up: Response: No adverse reaction rr5 06:07 Drug: Pepcid (famotidine) 20 mg Route: IVP; Site: left upper arm; ea 09:00 Follow up: Response: No adverse reaction iw 06:40 Drug: Lisinopril 10 mg Route: PO; rr5 07:40 Follow up: Response: No adverse reaction iw 09:38 Drug: [place] (HYDROcodone-acetaminophen) 10 mg-325 mg 1 tabs Route: PO; ld1 09:58 Follow up: Response: No adverse reaction ld1 09:38 Drug: Promethazine 12.5 mg Route: IVP; Site: left antecubital; ld1 09:58 Follow up: Response: No adverse reaction ld1 09:38 Drug: fentaNYL (PF) 25 mcg Route: IVP; Site: left antecubital; ld1 09:58 Follow up: Response: No adverse reaction ld1 Disposition: 07/11/20 10:12 Discharged to Home. Impression: Chest pain, unspecified, Type 2 diabetes mellitus. - Condition is Stable. - Discharge Instructions: Nonspecific Chest Pain, Nonspecific Chest Pain, [id number], Aspirin and Your Heart, Type 2 Diabetes Mellitus, Self Care, Adult, Type 2 Diabetes Mellitus, Self Care, Pediatric. - Prescriptions for Lisinopril 10 mg Oral Tablet - take 1 tablet by ORAL route once daily; 20 tablet. clonazepam 1 mg Oral tablet - take 1 tablet by ORAL route 3 times per day As needed For anxiety; 9 tablet. Tramadol 50 mg Oral Tablet - take 1 tablet by ORAL route every 8 hours as needed; 12 tablet. - Medication Reconciliation Form, Thank You Letter, Antibiotic Education, Prescription Opioid Use, SBAR form form. - Follow up: Private Physician; When: 2 - 3 days; Reason: Recheck today's complaints, Re-evaluation by your physician. - Problem is new. - Symptoms have improved. Signatures: Dispatcher [employer] EDKam Sparks MD MD cha Rittger, Kevin, MD MD kdr Chaparro, Storm, RN RN Kenisha Clancy, RN RN iw Ruthann Puentes, RN RN Bebeto Anna, RN RN rr5 Shirley Stone, NAT RN ld1 Corrections: (The following items were deleted from the chart) 10:16 10:12 07/11/2020 10:12 Discharged to Home. Impression: Chest pain, unspecified; Type 2 iw diabetes mellitus. Condition is Stable. Discharge Instructions: Nonspecific Chest Pain, Nonspecific Chest Pain, [id number], Aspirin and Your Heart, Type 2 Diabetes Mellitus, Self Care, Adult, Type 2 Diabetes Mellitus, Self Care, Pediatric. Prescriptions for Lisinopril 10 mg Oral Tablet - take 1 tablet by ORAL route once daily; 20 tablet, clonazepam 1 mg Oral tablet - take 1 tablet by ORAL route 3 times per day As needed For anxiety; 9 tablet, Tramadol 50 mg Oral Tablet - take 1 tablet by ORAL route every 8 hours as needed; 12 tablet. and Forms are SBAR form, Medication Reconciliation Form, Thank You Letter, Antibiotic Education, Prescription Opioid Use. Follow up: Private Physician; When: 2 - 3 days; Reason: Recheck today's complaints, Re-evaluation by your physician. Problem is new. Symptoms have improved. kdr
--- NOTE | 2020-07-11 10:13 | ER ---
Nurse's Notes [facility] Name: Elly Clarke Age: 50 yrs Sex: Female : 1970 Arrival Date: 07/11/2020 Time: 03:16 Bed 30 Private MD: Diagnosis: Chest pain, unspecified;Type 2 diabetes mellitus Presentation: 07/11 03:25 Chief complaint: Patient states: received the J\T\J vaccine on Thursday on the left arm, em has developed left sided chest pain that radiates into left arm and mago. legs, also reports body aches, nausea and headache, denies shortness of breath or fever. Coronavirus screen: Client denies travel out of the [place] in the last 14 days. Ebola Screen: Patient negative for fever greater than or equal to 101.5 degrees Fahrenheit, and additional compatible Ebola Virus Disease symptoms Patient denies exposure to infectious person. Patient denies travel to an Ebola-affected area in the 21 days before illness onset. No symptoms or risks identified at this time. Initial Sepsis Screen: Does the patient meet any 2 criteria? HR > 90 bpm. No. Patient's initial sepsis screen is negative. Does the patient have a suspected source of infection? No. Patient's initial sepsis screen is negative. Risk Assessment: Do you want to hurt yourself or someone else? Patient reports no desire to harm self or others. Onset of symptoms was July 09, 2020. 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 - Social history:: Smoking status: Patient denies any tobacco usage or history of. - Family history:: not pertinent. Screenin:50 Abuse screen: Denies threats or abuse. Denies injuries from another. Nutritional rr5 screening: No deficits noted. Tuberculosis screening: No symptoms or risk factors identified. Fall Risk IV access (20 points). Total More[place] Fall Scale indicates No Risk (0-24 pts). Assessment: 04:09 General: Appears in no apparent distress. uncomfortable, ill, Behavior is calm, rr5 cooperative, appropriate for age. Pain: Complains of pain in chest Pain radiates to left arm Pain currently is 8 out of 10 on a pain scale. Quality of pain is described as aching, Pain began gradually, Is intermittent. Neuro: Level of Consciousness is awake, alert, obeys commands, Oriented to person, place, time, situation. Cardiovascular: Reports chest pain, Capillary refill < 3 seconds Patient's skin is warm and dry. Respiratory: Airway is patent Respiratory effort is even, unlabored, Respiratory pattern is regular, symmetrical. GI: Abdomen is round obese, Reports nausea, vomiting. : No signs and/or symptoms were reported regarding the genitourinary system. EENT: No signs and/or symptoms were reported regarding the EENT system. Derm: Skin is intact, is healthy with good turgor, Skin temperature is warm. Musculoskeletal: Capillary refill < 3 seconds, Reports pain in chest, left arm, right leg and left leg. 05:10 Reassessment: Patient appears in no apparent distress at this time. Patient is alert, rr5 oriented x 3, equal unlabored respirations, skin warm/dry/pink. laboratory staff informed for recollect. 06:30 Reassessment: Patient appears in no apparent distress at this time. Patient is alert, rr5 oriented x 3, equal unlabored respirations, skin warm/dry/pink. awaiting for result, then for reassessment by ED provider Patient states feeling better. Patient states symptoms have improved. 07:50 Reassessment: Patient and/or family updated on plan of care and expected duration. Pain ld1 level reassessed. 07:50 Pain: Complains of pain in forehead Pain radiates to right leg and left leg Pain ld1 currently is 9 out of 10 on a pain scale. Quality of pain is described as tingling, throbbing, Pain began gradually, Is intermittent. Neuro: Level of Consciousness is awake, alert, obeys commands, Oriented to person, place, time, situation. Cardiovascular: Capillary refill < 3 seconds Patient's skin is warm and dry. Respiratory: Airway is patent Respiratory effort is even, unlabored, Respiratory pattern is regular, symmetrical. GI: Abdomen is round obese, Reports nausea. : No deficits noted. EENT: No deficits noted. Derm: Skin is intact, is healthy with good turgor, Skin temperature is warm. 07:50 Reassessment: Notified ERP of headache and bilateral leg pain level 9/10. No new orders ld1 at this time. 08:38 Reassessment: Patient appears in no apparent distress at this time. pt still c/o mago iw leg pain ,states the fentanyl worked for a while but pain has come back. D-dimer sent to lab. 09:59 Reassessment: ERP at bedside discussing POC. ld1 Vital Signs: 03:25 BP 154 / 106; Pulse 93; Resp 18; Temp 98.4(O); Pulse Ox 100% on R/A; Weight 96.62 kg; em Height 5 ft. 7 in. (170.18 cm); Pain 8/10; 04:10 BP 143 / 67; Pulse 82; Resp 20; Pulse Ox 97% ; rr5 05:24 BP 133 / 75; Pulse 80; Resp 19; Pulse Ox 98% ; rr5 05:50 BP 150 / 99; Pulse 76; Resp 18; Pulse Ox 98% ; ea 06:40 BP 148 / 85; Pulse 75; Resp 17; Pulse Ox 99% ; rr5 07:50 BP 122 / 55; Pulse 74; Resp 18; Pulse Ox 98% on R/A; Pain 9/10; ld1 09:07 BP 94 / 73; Pulse 72; Resp 16; Pulse Ox 96% on R/A; ld1 09:46 BP 167 / 84; Pulse 78; Resp 16 S; iw 03:25 Body Mass Index 33.36 (96.62 kg, 170.18 cm) em ED Course: 03:16 Patient arrived in ED. ag3 03:23 Bebeto Cid, RN is Primary Nurse. rr5 03:28 Triage completed. em 03:29 Arm band placed on. em 03:45 XRAY Chest (1 view) In Process Unspecified. EDMS 04:08 Patient has correct armband on for positive identification. Bed in low position. Call rr5 light in reach. Side rails up X2. nurse monitoring on. Pulse ox on. NIBP on. 04:08 Inserted saline lock: 24 gauge in left upper arm, using aseptic technique. Blood rr5 collected. 04:55 Kam Parker MD is Attending Physician. zoe 05:48 Inserted saline lock: 20 gauge in right EJ, using aseptic technique. ,using aseptic rr5 technique. by dr. parker Blood collected. 06:34 Attending Physician role handed off by Kam Parker MD kdr 06:34 George Stern MD is Attending Physician. kdr 06:40 No provider procedures requiring assistance completed. Patient maintains SpO2 rr5 saturation greater than 95% on room air. 08:02 Troponin (emerg Dept Use Only): 800am Sent. ld1 08:39 Inserted saline lock: 20 gauge in left antecubital area, using aseptic technique. iw 09:12 Primary Nurse role handed off by Bebeto Cid RN sv 09:36 Shirley Stone, NAT is Primary Nurse. ld1 10:01 IV discontinued, bleeding controlled, No redness/swelling at site. ld1 Administered Medications: 04:24 Drug: fentaNYL (PF) 25 mcg Route: IVP; Site: left antecubital; ea 05:24 Follow up: Response: No adverse reaction; Pain is unchanged, physician notified; RASS: rr5 Alert and Calm (0) 05:47 Follow up: Response: No adverse reaction ea 04:24 Drug: Zofran (Ondansetron) 4 mg Route: IVP; Site: left antecubital; ea 05:47 Follow up: Response: No adverse reaction ea 05:48 Follow up: Response: No adverse reaction rr5 04:24 Drug: NS 0.9% 1000 ml Route: IV; Rate: 1 bolus; Site: left antecubital; ea 05:47 Follow up: Response: No adverse reaction; IV Status: Completed infusion; IV Intake: rr5 1000ml 05:24 Drug: fentaNYL (PF) 25 mcg Route: IVP; Site: left upper arm; ea 06:13 Follow up: Response: No adverse reaction ea 05:55 Drug: Zofran (Ondansetron) 4 mg Route: IVP; Site: left upper arm; rr5 06:13 Follow up: Response: No adverse reaction ea 05:58 Drug: Aspirin Chewable Tablet 324 mg Route: PO; ea 06:29 Follow up: Response: No adverse reaction rr5 06:07 Drug: Pepcid (famotidine) 20 mg Route: IVP; Site: left upper arm; ea 09:00 Follow up: Response: No adverse reaction iw 06:40 Drug: Lisinopril 10 mg Route: PO; rr5 07:40 Follow up: Response: No adverse reaction iw 09:38 Drug: [place] (HYDROcodone-acetaminophen) 10 mg-325 mg 1 tabs Route: PO; ld1 09:58 Follow up: Response: No adverse reaction ld1 09:38 Drug: Promethazine 12.5 mg Route: IVP; Site: left antecubital; ld1 09:58 Follow up: Response: No adverse reaction ld1 09:38 Drug: fentaNYL (PF) 25 mcg Route: IVP; Site: left antecubital; ld1 09:58 Follow up: Response: No adverse reaction ld1 Intake: 05:47 IV: 1000ml; Total: 1000ml. rr5 Outcome: 10:00 Condition: stable ld1 10:00 Discharge instructions given to patient, Instructed on discharge instructions, medication usage, Demonstrated understanding of instructions, follow-up care, medications. 10:01 Discharged to home ambulatory. ld1 10:12 Discharge ordered by . kdr 10:16 Patient left the ED. iw Signatures: Dispatcher [employer] Julianne Zheng RN RN sv Anderson, Corey, MD MD cha Rittger, Kevin, MD MD kdr Munoz, Edgar, RN RN em Williams, Irene, RN RN Ruthann Puentes RN RN ea Gomez, Alice 3 Bebeto Cid RN RN rr5 Shirley Stone RN RN ld1 Corrections: (The following items were deleted from the chart) 06:26 03:25 Chief complaint: Patient states: received the J\T\J vaccine one Thursday on the left em arm, has developed left sided chest pain that radiates into left arm and mago. legs, also reports body aches, nausea and headache, denies shortness of breath or fever em
[2020-07-11 10:53] VITALS: TEMP 98.4
[2020-07-11 11:01] VITALS: O2SAT 96
[2020-07-11 11:02] VITALS: BP 167/84
--- NOTE | 2020-07-12 07:38 | EKG ---
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
== END 2020-07-11 10:16 | disposition home or self-care (01) ==
LOC: ER 03:15
PROC: 05HP33Z Insertion of Infusion Device into Right External Jugular Vein, Percutaneous Approach (ICD-10-PCS; principal; 2020-07-11)
DX: R07.9 Chest pain, unspecified (principal); E11.9 Type 2 diabetes mellitus without complications; I10 Essential (primary) hypertension; Z88.1 Allergy status to other antibiotic agents; Z88.5 Allergy status to narcotic agent; Z88.8 Allergy status to other drugs, medicaments and biological substances
CPT/HCPCS: 36415; 71045; 80048; 80076; 83735; 83880; 84484; 85025; 85379; 85610; 93005; 99285; J2405; J2550; J3010; J7030

== ENCOUNTER 2020-07-17 14:14 | Emergency (ER) | payer OTHER, SELFPAY ==
--- OUTSIDE RECORDS SUMMARY | 2020-07-17 14:19 | XMS REPORT | Continuity of Care Document ---
:1970 Author Organization [facility] t Address [address] [place] [address] Care Team Providers Name Role Phone Fahad [...] numbness 08-29 [facility] - [facility]: Medical 00 [place] [facility] Neurologic Disease Active C HI St [...] Comments Source Sex Assigned At [facility] Tobacco use and 2017-08-28 2017-08-28 Never used [facility] - exposure 00:00:00 00:00:00 Medical Center Smoking Status Start Date Stop Date Source Never smoker [facility] edical Center Medications Ordered Filled Start [...] Test 00:00:00 (procedure) [code = Medical Center 34059119] Future Scheduled 2019-11-29 INFLUENZA VACCINE (#1) [facility] Test 00:00:00 [code = INFLUENZA Medical Ce nter VACCINE (#1)] Future Scheduled 2017-11-[address] [facility] - Test 00:[facility]00 measurement [facility] (procedure) [code = 18902833] Future Scheduled [address] [facility] - Test 00:00:00 [facility] cervix (procedure) [code = 233381409] Future Scheduled 1979 DIABETIC EYE EXAM [facility] - Test 00:00:00 [code = DIABETIC EYE Medical Center EXAM] Future Scheduled 1979 Urine screening for [facility] - Test 00:00:00 protein (procedure) Medical Center [code = 888334187] Future Scheduled [address] [facility] - Test 00:00:00 0-64 YRS (1 of 1 - Medical C enter PPSV23) [code = PNEUMOCOCCAL VACCINE 0-64 YRS (1 of 1 - PPSV23)] Future Scheduled [address] [facility] - Test 00:00:00 [facility] breast (procedure) [code = 210856934] Future Scheduled [address] [facility] - Test 00:00:00 [facility] colon (procedure) [code = 364225349] Encounters Start End Encounter Admission Attending Care Care Encounter Source Date/Time Date/Time Type Type Clinicians Facility Department ID 2020-06-17 2020-06-17 Orders Doctor IQRA [id number] 00:00:00 00:00:00 Only Unassigned, GREGORY [id number] [place] [facility] [id number] [id number] 2020-05-19 2020-05-19 Emergency [place], [facility] [id number] 15:45:00 18:07:00 Pastora Suarez 350.1.13.10 [place] 4.2.7.2.686 [place] [id number] 2019-08-21 2019-08-22 Emergency [facility], [facility] [id number] 23:48:04 02:26:00 Jose Cruz Suarez 350.1.13.10 [place] 4.2.7.2.686 [place] [id number] 2019-08-06 2019-08-06 Telephone IQRA Barragan [id number] 00:00:00 00:00:00 Apoorva JENKINS 350.1.13.10 [facility] 4.2.7.2.686 [id number] 2019-08-06 2019-08-06 Telephone [facility] Box [id number] 00:00:00 00:00:00 Jinny JENKINS 350.1.13.10 [facility] 4.2.7.2.686 [id number] 2019-08-05 2019-08-05 Telephone [facility] Box [id number] 00:00:00 00:00:00 Jinny JENKINS 350.1.13.10 [facility] 4.2.7.2.686 [id number] Results Test Description Test Time Test Comments Results Result Comments Source POCT-GLUCOSE METER 2017-09-01 17:07:00 Test Item Value Reference Range Interpretation Comme nts POC-GLUCOSE METER ([facility]) (test 298 mg/dL 70-110 H TESTED AT [address] code = 1538) [facility] 7[address] 0 POCT-GLUCOSE [id number] 12:11:00 Test Item Value Reference Range Interpretation Comments POC-GLUCOSE METER 331 mg/dL 70-110 H Notified R Devante SOUZA/TESTED ([facility]) (test code = AT [place] [address] [address] [address]38) [facility] 7703 0 POCT-GLUCOSE [id number] 10:55:00 Test Item Value Reference Range Interpretation Comments POC-GLUCOSE METER 365 mg/dL 70-110 H TESTED AT [place] [address] ([facility]) (test code = ELIZABETH Flynn [facility] 1538) [address] POCT-GLUCOSE [id number] 08:44:00 Test Item Value Reference Range Interpretation Comments POC-GLUCOSE METER 291 mg/dL 70-110 H TESTED AT [place] [address] ([facility]) (test code = ELIZABETH Flynn [facility] 1538) [address] LIPID [id number] 05:56:00 Test Item Value Reference Range Interpretation [...] Borderline 130-159 High 160-189 Very High >=190POCT-GLUCOSE [id number] 21:50:00 Test Item Value Reference Range Interpretation Comments POC-GLUCOSE METER 318 mg/dL 70-110 H TESTED AT [place] [address] ([facility]) (test code = ELIZABETH Flynn [place] 1538) [address] POCT-GLUCOSE [id number] 18:04:00 Test Item Value Reference Range Interpretation Comments POC-GLUCOSE METER 238 mg/dL 70-110 H TESTED AT [place] [address] ([facility]) (test code = ELIZABETH Flynn [place] 1538) [address] POCT-GLUCOSE [id number] 12:22:00 Test Item Value Reference Range Interpretation Comments POC-GLUCOSE METER 290 mg/dL 70-110 H TESTED AT [place] [address] ([facility]) (test code = ELIZABETH Flynn [place] 1538) [address] POCT-GLUCOSE [id number] 09:20:00 Test Item Value Reference Range Interpretation Comments POC-GLUCOSE METER 293 mg/dL 70-110 H TESTED AT [place] [address] ([facility]) (test code = ELIZABETH Flynn [place] 1538) [address] POCT-GLUCOSE [id number] 21:00:00 Test Item Value Reference Range Interpretation Comments POC-GLUCOSE METER 225 mg/dL 70-110 H TESTED AT [place] [address] ([facility]) (test code = CHRISTROXANNE Flynn [place] 1538) [address] CT, CTANGIO [id number] 18:01:00FINAL REPORT CT angiogram of the upper [...] Petersen Verified Date/Time: 08/30/2017 18:01:31 Reading Location: [address] Neuro Reading Room , CAROTID, [id number] 18:01:00FINAL REPORT CT angiogram of the upper [...] [place] Verified Date/Time: 08/30/2017 18:01:31 Reading Location: [facility] C013V Neuro Reading Room -GLUCOSE [id number] 17:21:00 Test Item Value Reference Range Interpretation Comments POC-GLUCOSE METER 256 mg/dL 70-110 H TESTED AT [place] [address] ([facility] (test code = CHRISTROXANNE Rina [facility] 1538) [address] POCT-GLUCOSE [id number] 12:00:00 Test Item Value Reference Range Interpretation Comments POC-GLUCOSE METER 289 mg/dL 70-110 H TESTED AT [place] [address] ([facility]) (test code = CHRISTWI Rina [facility] 1538) [address] BASIC METABOLIC [id number] 10:12:00 Test Item Value Reference Range Interpretation [...] NOT APPLICABLE FOR DIALYSIS PATIEN TS. POCT-GLUCOSE [id number] 08:42:00 Test Item Value Reference Range Interpretation Comments POC-GLUCOSE METER 259 mg/dL 70-110 H TESTED AT [facility] 6720 (BEAKER) (test code = ELIZABETH [place] 1538) [address] TROPONIN [id number] 06:14:00 Test Item Value Reference Range Interpretation [...] = 2801) RAD, CHEST, 1 VIEW, NON [id number] 04:23:00Reason for exam:->chest painShould this be performed at the bedside?->YesFINAL REPORT Comparison examination: None No pneumothorax, focal pulmonary co nsolidation, or significant pleural effusion. Normal cardiomediastinal contours. Normal skeleton and soft tissues. Impression: No acute abnormality. Signed: Ervin Jenkins Verified Date/Time: 08/30/2017 04:23:04 Reading Location: [address] Reading Room POCT-GLUCOSE [id number] 21:18:00 Test Item Value Reference Range Interpretation Comments POC-GLUCOSE METER 151 mg/dL 70-110 H TESTED AT [facility] 6720 ([facility]) (test code = ELIZABETH [place] 1538) [address] POCT-GLUCOSE [id number] 17:59:00 Test Item Value Reference Range Interpretation Comments POC-GLUCOSE METER 146 mg/dL 70-110 H TESTED AT [facility] 6720 (JESSICA) (test code = ELIZABETH Flynn [facility] 1538) [address] HEMOGLOBIN [id number] 15:56:00 Test Item Value Reference Range Interpretation Comments HEMOGLOBIN A1C (JESSICA) (test code = 13.7 % 4.3-6.1 H 368) CT, BRAIN, WITHOUT [id number] 14:52:00FINAL REPORT CT head without contrast. Comparisons: [...] Petersen Verified Date/Time: 08/29/2017 14:52:09 Reading Location: [address] Neuro Reading Room POCT-GLUCOSE [id number] 14:17:00 Test Item Value Reference Range Interpretation Comments POC-GLUCOSE METER 423 mg/dL 70-110 HH Notified R Devante SOUZA/TESTED (JESSICA) (test code = AT [facility] [address] [facility] 1538) [facility] 7703 0 VITAMIN [id number] 06:48:00 Test Item Value Reference Range Interpretation Comments VITAMIN B12 (JESSICA) (test code = 300 pg/mL 213-382 054) TSH/FREE T4 IF [id number] 06:48:00 Test Item Value Reference Range Interpretation Comments THYROID STIMULATING HORMONE 1.55 uIU/mL 0.35-4.94 (JESSICA) (test code = 772) CBC W/PLT COUNT & AUTO [id number] 05:10:00 Test Item Value Reference Range Interpretation [...] (BEAKER) (test code = 2801) URINALYSIS W/ [id number] 23:32:00 Test Item Value Reference Range Interpretation [...] = 1585) Occasional SOURCE(BEAKER) (test code = 6992) TROPONIN [id number] 23:12:00 Test Item Value Reference Range Interpretation [...] acute neurological disease, and persistent tachyarrhythmia.BASIC METABOLIC [id number] 23:05:00 Test Item Value Reference Range Interpretation [...] NOT APPLICABLE FOR DIALYSIS PATIEN TS. POCT-GLUCOSE [id number] 20:49:00 Test Item Value Reference Range Interpretation Comments POC-GLUCOSE METER 376 mg/dL 70-110 H Notified R Devante SOUZA/TESTED (BEAKER) (test code = AT [facility] [address] [address]) [facility] 7703 0
[2020-07-17] MEDS ORDERED: METOCLOPRAMIDE 10 MG/2mL INJ ONE (17:15)
[2020-07-17] MEDS ORDERED: HYDROMORPHONE HCL 0.5 MG/0.5 ML INJ ONE ×2 (17:16→19:03)
[2020-07-17] MEDS ORDERED: LORazepam 2 MG/ML VIAL ONE (17:16)
[2020-07-17] MEDS ORDERED: DIPHENHYDRAMINE 50 MG/ML VIAL ONE (17:16)
[2020-07-17] MEDS ORDERED: NA CHLORIDE 0.9% 1,000 ML ONE (17:17)
[2020-07-17 17:18] LABS: Absolute Lymphocytes (CBC) 2.7 K/uL (0.7-4.9); Basophils % 0.7 % (0-1.3); Hematocrit 42.7 % (36.0-45.0); Lymphocytes % 40.2 % (15.3-44.8); MPV 9.2 fL (7.6-11.3)
[2020-07-17 17:25] LABS: Protime INR 1.01
--- NOTE | 2020-07-17 17:49 | RAD REPORT ---
EXAM DESCRIPTION: RAD - Chest Single View - 07/17/2020 5:23 pm CLINICAL HISTORY: weakness, sob Chest pain. COMPARISON: Chest Single View dated 07/11/2020; Chest Single View dated 12/19/2019; Abdomen 1 View (KU B) dated 11/13/2018; Chest Pa And Lat (2 Views) dated 08/15/2018 FINDINGS: Portable technique limits examination quality. The lungs are grossly clear. The heart is normal in size. No displaced fractures. IMPRESSION: No acute intrathoracic process suspected.
[2020-07-17 17:50] LABS: ALT/SGPT 30 U/L (12-78); Albumin 3.6 g/dL (3.4-5.0); Alkaline Phosphatase 112 U/L (45-117); BUN Blood Urea Nitrogen 9 mg/dL (7-18); Bicarbonate 28 mmol/L (21-32); Bilirubin Direct < 0.1 mg/dL (0-0.2); Bilirubin Total 0.3 mg/dL (0.2-1.0); Glucose Level 273 mg/dL (74-106); NT PRO-BNP 115 pg/mL (<125); Protein, Total 7.8 g/dL (6.4-8.2); Sodium Level 139 mmol/L (136-145); Troponin (Emerg Dept Use Only) < 0.02 ng/mL (0.0-0.045)
[2020-07-17 18:00] LABS: AST/SGOT 17 U/L (15-37); Magnesium 1.7 mg/dL (1.8-2.4)
[2020-07-17] MEDS ORDERED: clonazePAM 1 MG TAB ONE (18:00)
--- NOTE | 2020-07-17 19:45 | ER ---
Nurse's Notes [facility] Name: Elly Clarke Age: 50 yrs Sex: Female : 1970 Arrival Date: 07/17/2020 Time: 14:16 Bed 27 Private MD: Pavel Curran T Diagnosis: Radiculopathy;Syncope and collapse Presentation: 07/17 14:30 Chief complaint: EMS states: pt had her J\T\J vaccine last Thursday and since then has felt iw dizzy, light headed, headache, chills , and she said she fainted twice today . Pt states she also has pain shooting down her left arm, same as it was last week, when she fainted she fell and landed on her back/butt and now she has back pain, has been having shooting pains in her legs since last week. Ebola Screen: Patient negative for fever greater than or equal to 101.5 degrees Fahrenheit, and additional compatible Ebola Virus Disease symptoms Patient denies exposure to infectious person. Patient denies travel to an Ebola-affected area in the 21 days before illness onset. No symptoms or risks identified at this time. 14:30 Method Of Arrival: EMS: [facility] iw 14:30 Acuity: HANNAH 3 iw 14:49 Coronavirus screen: At this time, the client does not indicate any symptoms associated iw with coronavirus-19. Initial Sepsis Screen: Does the patient meet any 2 criteria? No. Patient's initial sepsis screen is negative. Does the patient have a suspected source of infection? No. Patient's initial sepsis screen is negative. Risk Assessment: Do you want to hurt yourself or someone else? Patient reports no desire to harm self or others. Onset of symptoms was July 09, 2020. Historical: - Allergies: 14:53 Claritin (insomnia); iw 14:53 Compazine (Seizures); iw 14:53 Demerol (HEART RACING); iw 14:53 (Hives); iw 14:53 Morphine (RACING HEART); iw - Home Meds: 14:53 Ambien 10 mg Oral tab 1 tab once daily for Sleep-Onset Insomnia [Active]; butorphanol iw tartrate 10 mg/mL nasal spry 1 spray as needed for Migraine [Active]; carvedilol Oral 1 tab 2 times per day [Active]; clonazepam 1 mg Oral tab 1 tab 2 times per day [Active]; metformin 500 mg Oral tab 1 tab 2 times per day [Active]; tizanidine 2 mg Oral cap 2 caps twice a day [Active]; - PMHx: 14:53 Arthritis; Chrohns; Chronic pain; Diabetes - NIDDM; Dramatic migraine events; iw Gastroparesis; High Cholesterol; Hypertension; Migraines; Pancreatitis; spinal stenosis; - PSHx: 14:53 Knee surgery; Hysterectomy; Appendectomy; Cholecystectomy; iw - Immunization history:: Adult Immunizations up to date. - Social history:: Smoking status: Patient denies any tobacco usage or history of. Screenin:30 Abuse screen: Denies threats or abuse. Nutritional screening: No deficits noted. aa5 Tuberculosis screening: No symptoms or risk factors identified. Fall Risk None identified. Assessment: 16:30 General: Appears uncomfortable, Behavior is anxious, crying. Pain: Complains of pain in aa5 mago arms, mago legs, and head Pain currently is 10 out of 10 on a pain scale. Is continuous. Neuro: Level of Consciousness is awake, alert, obeys commands, Oriented to person, place, time, situation. Cardiovascular: Heart tones S1 S2 present Patient's skin is warm and dry. Rhythm is regular. Respiratory: Airway is patent Respiratory effort is even, unlabored, Respiratory pattern is regular, symmetrical. GI: Abdomen is round Bowel sounds present X 4 quads. Abd is soft and non tender X 4 quads. Reports nausea. : No signs and/or symptoms were reported regarding the genitourinary system. EENT: No signs and/or symptoms were reported regarding the EENT system. Derm: Skin is pink, warm \T\ dry. Musculoskeletal: Range of motion: intact in all extremities. 17:20 Reassessment: Patient is alert, oriented x 3, equal unlabored respirations, skin aa5 warm/dry/pink. Patient states feeling better. 17:20 General: Appears comfortable, Behavior is calm, cooperative. aa5 18:40 Reassessment: Patient is alert, oriented x 3, equal unlabored respirations, skin aa5 warm/dry/pink. Pt c/o increased pain, pt requesting more pain medication, PA was notified. . 19:00 Reassessment: Patient appears in no apparent distress at this time. Patient and/or jb4 family updated on plan of care and expected duration. Pain level reassessed. Patient is alert, oriented x 3, equal unlabored respirations, skin warm/dry/pink. 19:47 Reassessment: Patient appears in no apparent distress at this time. Patient and/or jb4 family updated on plan of care and expected duration. Pain level reassessed. Patient is alert, oriented x 3, equal unlabored respirations, skin warm/dry/pink. PT ambulated to the restroom with steady gait, d/c pending completion of IV fluids. 20:32 Reassessment: Patient appears in no apparent distress at this time. Patient and/or jb4 family updated on plan of care and expected duration. Pain level reassessed. Patient is alert, oriented x 3, equal unlabored respirations, skin warm/dry/pink. Pt decided to stop IV fluids. Received approximately 650ml. Verbalized understanding of D/c and follow up instructions. Assisted to lobby to wait for ride home via wheelchair. Vital Signs: 14:49 BP 124 / 93; Pulse 86; Resp 16; Temp 98.4; Pulse Ox 100% on R/A; Weight 97.07 kg; iw Height 5 ft. 7 in. (170.18 cm); 16:30 BP 114 / 74; Pulse 86; Resp 16 S; Pulse Ox 97% on R/A; aa5 18:45 BP 122 / 79; Pulse 79; Resp 16 S; Pulse Ox 96% on R/A; aa5 19:30 BP 133 / 91; Pulse 79; Resp 16; Pulse Ox 96% on R/A; jb4 20:15 BP 130 / 95; Pulse 85; Resp 16; Pulse Ox 100% on R/A; jb4 14:49 Body Mass Index 33.52 (97.07 kg, 170.18 cm) ED Course: 14:16 Patient arrived in ED. am2 14:16 Pavel Curran MD is Private Physician. am2 14:30 Triage completed. iw 14:53 Arm band placed on. iw 16:27 Fran Santiago PA is PHCP. [facility] 16:27 Wil Patterson MD is Attending Physician. [facility] 16:30 Patient has correct armband on for positive identification. Bed in low position. Call aa5 light in reach. Side rails up X2. 16:36 Marie Alegria, NAT is Primary Nurse. aa5 16:54 Initial lab(s) drawn, by me, sent to lab. Inserted saline lock: 20 gauge in left jp3 antecubital area, using aseptic technique. Blood collected. Patient maintains SpO2 saturation greater than 95% on room air. 17:20 20 G to L AC dc'd, mild swelling noted to IV site. aa5 17:23 XRAY Chest (1 view) In Process Unspecified. EDMS 17:45 Inserted saline lock: 24 gauge in left hand, using aseptic technique. aa5 19:00 Report given to Yonis Amezcua RN. aa5 19:44 Pavel Curran MD is Referral Physician. [facility] 20:33 No provider procedures requiring assistance completed. IV discontinued, intact, jb4 bleeding controlled, No redness/swelling at site. Pressure dressing applied. Administered Medications: Discontinued: NS 0.9% 1000 ml IV at 1 bolus Per protocol; 1000 mL bolus 16:42 CANCELLED (other medication used): Zofran (Ondansetron) 4 mg IVP once; over 2 minutes jm 16:42 CANCELLED (different dose used): Dilaudid (HYDROmorphone) 2 mg IVP once; put in bolus jmm 17:00 Drug: NS 0.9% 1000 ml Route: IV; Rate: 1 bolus; Site: left antecubital; aa5 17:47 Follow up: Infusion continued to L hand aa5 20:34 Follow up: Response: No adverse reaction; IV Status: Order to discontinue infusion; IV jb4 Intake: 650ml 17:00 Drug: Reglan (metoCLOPramide) 20 mg Route: IVP; Site: left antecubital; aa5 17:20 Follow up: Response: No adverse reaction aa5 17:02 Drug: Dilaudid (HYDROmorphone) 0.5 mg Route: IVP; Site: left antecubital; aa5 17:20 Follow up: Response: No adverse reaction aa5 17:02 Drug: diphenhydrAMINE 25 mg Route: IVP; Site: left antecubital; aa5 17:20 Follow up: Response: No adverse reaction aa5 17:40 Drug: clonazePAM 1 mg Route: PO; aa5 18:40 Follow up: Response: No adverse reaction aa5 17:50 Not Given (Patient Refused): Ativan (LORazepam) 1 mg IVP once aa5 18:48 Drug: Dilaudid (HYDROmorphone) 0.5 mg Route: IVP; Site: left hand; aa5 19:08 Follow up: Response: No adverse reaction; Pain is decreased aa5 Intake: 20:34 IV: 650ml; Total: 650ml. jb4 Outcome: 19:44 Discharge ordered by . tory 20:33 Discharged to home ambulatory. jb4 20:33 Condition: stable 20:33 Discharge instructions given to patient, Instructed on discharge instructions, follow up and referral plans. medication usage, Demonstrated understanding of instructions, follow-up care, medications, Prescriptions given X 3. 20:35 Patient left the ED. jb4 Signatures: Dispatcher [employer] EDMS Fran Santiago PA PA jmm Williams, Irene, RN RN iw aMrie Alegria RN RN aa5 Yonis Cameron RN RN jb4 Deanna Rahman am2 Bebeto Jacobs jp3 Corrections: (The following items were deleted from the chart) 14:51 14:30 Chief complaint: EMS states: pt had her J\T\J vaccine last Thursday and since then iw has felt dizzy, light headed, headache, chills , and she said she fainted twice today iw 20:34 20:34 Response: No adverse reaction; IV Status: Completed infusion; IV Intake: 650ml [id number]
--- NOTE | 2020-07-17 19:45 | EDPHYS ---
Physician Documentation [facility] Name: Elly Clarke Age: 50 yrs Sex: Female : 1970 Arrival Date: 07/17/2020 Time: 14:16 Bed 27 Private MD: Pavel Curran T ED Physician Wil Patterson HPI: 07/17 16:39 This 50 yrs old Female presents to ER via EMS with complaints of General jmm Weakness, Back Pain, body aches. 16:39 The patient has experienced syncope, collapsed. Onset: The symptoms/episode jmm began/occurred acutely, today. Modifying factors: The patient symptoms are alleviated by nothing, the patient symptoms are aggravated by nothing. This is a 50 year old female with a history of crohns disease, dm, that presents to the ED with complaints of fatigue, body aches, left arm pain, left leg pain worsening since a vaccination 1 week ago. . Historical: - Allergies: 14:53 Claritin (insomnia); iw 14:53 Compazine (Seizures); iw 14:53 Demerol (HEART RACING); iw 14:53 (Hives); iw 14:53 Morphine (RACING HEART); iw - Home Meds: 14:53 Ambien 10 mg Oral tab 1 tab once daily for Sleep-Onset Insomnia [Active]; butorphanol iw tartrate 10 mg/mL nasal spry 1 spray as needed for Migraine [Active]; carvedilol Oral 1 tab 2 times per day [Active]; clonazepam 1 mg Oral tab 1 tab 2 times per day [Active]; metformin 500 mg Oral tab 1 tab 2 times per day [Active]; tizanidine 2 mg Oral cap 2 caps twice a day [Active]; - PMHx: 14:53 Arthritis; Chrohns; Chronic pain; Diabetes - NIDDM; Dramatic migraine events; iw Gastroparesis; High Cholesterol; Hypertension; Migraines; Pancreatitis; spinal stenosis; - PSHx: 14:53 Knee surgery; Hysterectomy; Appendectomy; Cholecystectomy; iw - Immunization history:: Adult Immunizations up to date. - Social history:: Smoking status: Patient denies any tobacco usage or history of. ROS: 16:39 Constitutional: Negative for fever, chills, and weight loss, Cardiovascular: Negative jmm for chest pain, palpitations, and edema. 16:39 Respiratory: Positive for shortness of breath. 16:39 MS/extremity: Positive for pain. 16:39 Neuro: Positive for headache. 16:39 All other systems are negative. Exam: 16:39 Constitutional: This is a well developed, well nourished patient who is awake, alert, jmm and in no acute distress. Head/Face: atraumatic. Eyes: EOMI, no conjunctival erythema appreciated ENT: Moist Mucus Membranes Neck: Trachea midline, Supple Chest/axilla: Normal chest wall appearance and motion. Cardiovascular: Regular rate and rhythm. No edema appreciated Respiratory: Normal respirations, no respiratory distress appreciated Abdomen/GI: Non distended, soft Back: Normal ROM Skin: General appearance color normal MS/ Extremity: Moves all extremities, no obvious deformities appreciated, no edema noted to the lower extremities Neuro: Awake and alert, normal gait Psych: Behavior is normal, Mood is normal, Patient is cooperative and pleasant 18:03 ECG was reviewed by the Attending Physician. [facility] Vital Signs: 14:49 BP 124 / 93; Pulse 86; Resp 16; Temp 98.4; Pulse Ox 100% on R/A; Weight 97.07 kg; iw Height 5 ft. 7 in. (170.18 cm); 16:30 BP 114 / 74; Pulse 86; Resp 16 S; Pulse Ox 97% on R/A; aa5 18:45 BP 122 / 79; Pulse 79; Resp 16 S; Pulse Ox 96% on R/A; aa5 19:30 BP 133 / 91; Pulse 79; Resp 16; Pulse Ox 96% on R/A; jb4 20:15 BP 130 / 95; Pulse 85; Resp 16; Pulse Ox 100% on R/A; jb4 14:49 Body Mass Index 33.52 (97.07 kg, 170.18 cm) iw MDM: 16:39 Patient medically screened. [facility] 19:43 Data reviewed: vital signs, nurses notes. Counseling: I had a detailed discussion with [facility] the patient and/or guardian regarding: the historical points, exam findings, and any diagnostic results supporting the discharge/admit diagnosis, lab results, radiology results, the need for outpatient follow up, to return to the emergency department if symptoms worsen or persist or if there are any questions or concerns that arise at home. ED course: Patient states feeling much better. Advised to follow up with pcp and otherwise given strict return precautions. patient understood and agrees with the plan of care. . 07/17 16:41 Order name: Basic Metabolic Panel; Complete Time: 18:02 [facility] 07/17 16:41 Order name: CBC with Diff; Complete Time: 17:33 [facility] 07/17 16:41 Order name: LFT's; Complete Time: 18:02 [facility] 07/17 16:41 Order name: Magnesium; Complete Time: 18:02 [facility] 07/17 16:41 Order name: NT PRO-BNP; Complete Time: 18:02 [facility] 07/17 16:41 Order name: PT-INR; Complete Time: 17:33 [facility] 07/17 16:41 Order name: Troponin (emerg Dept Use Only); Complete Time: 18:02 [facility] 07/17 16:41 Order name: XRAY Chest (1 view); Complete Time: 17:50 [facility] 07/17 16:45 Order name: D-Dimer; Complete Time: 17:33 [facility] 07/17 16:41 Order name: EKG; Complete Time: 16:42 [facility] 07/17 16:41 Order name: Cardiac monitoring; Complete Time: 17:51 [facility] 07/17 16:41 Order name: EKG - Nurse/Tech; Complete Time: 17:51 [facility] 07/17 16:41 Order name: IV Saline Lock; Complete Time: 16:55 [facility] 07/17 16:41 Order name: Labs collected and sent; Complete Time: 16:55 [facility] 07/17 16:41 Order name: O2 Per Protocol; Complete Time: 16:55 [facility] 07/17 16:41 Order name: O2 Sat Monitoring; Complete Time: 16:55 jmm EC:03 Rate is 81 beats/min. Rhythm is regular. QRS [place] is Normal. [place] interval is normal. QRS jmm interval is normal. QT interval is normal. No Q waves. T waves are Normal. No ST changes noted. Reviewed by me. Administered Medications: Discontinued: NS 0.9% 1000 ml IV at 1 bolus Per protocol; 1000 mL bolus 16:42 CANCELLED (other medication used): Zofran (Ondansetron) 4 mg IVP once; over 2 minutes [facility] 16:42 CANCELLED (different dose used): Dilaudid (HYDROmorphone) 2 mg IVP once; put in bolus [facility] 17:00 Drug: NS 0.9% 1000 ml Route: IV; Rate: 1 bolus; Site: left antecubital; aa5 17:47 Follow up: Infusion continued to L hand aa5 20:34 Follow up: Response: No adverse reaction; IV Status: Order to discontinue infusion; IV jb4 Intake: 650ml 17:00 Drug: Reglan (metoCLOPramide) 20 mg Route: IVP; Site: left antecubital; aa5 17:20 Follow up: Response: No adverse reaction aa5 17:02 Drug: Dilaudid (HYDROmorphone) 0.5 mg Route: IVP; Site: left antecubital; aa5 17:20 Follow up: Response: No adverse reaction aa5 17:02 Drug: diphenhydrAMINE 25 mg Route: IVP; Site: left antecubital; aa5 17:20 Follow up: Response: No adverse reaction aa5 17:40 Drug: clonazePAM 1 mg Route: PO; aa5 18:40 Follow up: Response: No adverse reaction aa5 17:50 Not Given (Patient Refused): Ativan (LORazepam) 1 mg IVP once aa5 18:48 Drug: Dilaudid (HYDROmorphone) 0.5 mg Route: IVP; Site: left hand; aa5 19:08 Follow up: Response: No adverse reaction; Pain is decreased aa5 Disposition: 07/18 09:37 Co-signature as Attending Physician, Wil Patterson MD. rn Disposition: 07/17/20 19:44 Discharged to Home. Impression: Radiculopathy, Syncope and collapse. - Condition is Stable. - Discharge Instructions: Cervical Radiculopathy, Sciatica, Syncope. - Prescriptions for clonazepam 1 mg Oral tablet - take 1 tablet by ORAL route 3 times per day; 12 tablet. Ultram 50 mg Oral Tablet - take 1 tablet by ORAL route every 6 hours As needed; 12 tablet. promethazine 25 mg Oral Tablet - take 1 tablet by ORAL route every 6 hours As needed; 30 tablet. - Medication Reconciliation Form, Thank You Letter, Antibiotic Education, Prescription Opioid Use form. - Follow up: Pavel Curran MD; When: 2 - 3 days; Reason: Recheck today's complaints, Continuance of care, Re-evaluation by your physician. Signatures: Dispatcher [employer] EDMS Fran Santiago PA PA [facility] Kenisha Prince, NAT RN Wil Miguel MD MD rn Calderon, Audri, RN RN aa5 Yonis Cameron, NAT RN jb4 Corrections: (The following items were deleted from the chart) 07/17 16:42 16:41 Zofran (Ondansetron) 4 mg IVP once; over 2 minutes ordered. [facility] 16:42 16:41 Dilaudid (HYDROmorphone) 2 mg IVP once; put in bolus ordered. [facility] 20:35 19:44 07/17/2020 19:44 Discharged to Home. Impression: Radiculopathy; Syncope and jb4 collapse. Condition is Stable. Forms are Medication Reconciliation Form, Thank You Letter, Antibiotic Education, Prescription Opioid Use. Follow up: Pavel Curran; When: 2 - 3 days; Reason: Recheck today's complaints, Continuance of care, Re-evaluation by your physician. xena
[2020-07-17 21:09] VITALS: TEMP 98.4
[2020-07-17 21:20] VITALS: BP 130/95; O2SAT 100
--- NOTE | 2020-07-18 16:11 | EKG ---
Test Date: 2020-07-17 Test Time: 17:08:30 Reed Maker: PARI MEASUREMENT RESULTS: Intervals: Rate: 81 OK: 164 QRSD: 86 QT: 380 QTc: 441 [place]: P: 32 OK: 164 QRS: 17 T: 29 INTERPRETIVE STATEMENTS: Normal sinus rhythm Normal ECG Compared to ECG 07/11/2020 03:28:07 Myocardial infarct finding no longer present Electronically Signed On 07-18-20 16:07:09 CDT by Surendra Zhang
== END 2020-07-17 20:35 | disposition home or self-care (01) ==
LOC: ER 14:14
DX: M54.10 Radiculopathy, site unspecified (principal); I10 Essential (primary) hypertension; Z88.5 Allergy status to narcotic agent; Z88.8 Allergy status to other drugs, medicaments and biological substances
CPT/HCPCS: 36415; 71045; 80048; 80076; 83735; 83880; 84484; 85025; 85379; 85610; 93005; 99284; J1170; J1200; J2765; J7030

== ENCOUNTER 2020-07-21 17:12 | Emergency (ER) | payer OTHER, SELFPAY ==
--- OUTSIDE RECORDS SUMMARY | 2020-07-21 17:15 | XMS REPORT | Continuity of Care Document ---
:1970 Author Organization [facility] t Address [address] [place] [address] Care Team Providers Name Role Phone Fahad [...] numbness 08-29 [facility] - 00:00: Medical 00 [facility] Neurologic Disease Active C HI St [...] Date Quantity Comments Source Sex Assigned At [facility] Tobacco use and 2017-08-28 2017-08-28 Never used [facility] kes - exposure 00:00:00 00:00:00 [...] Test 00:00:00 (procedure) [code = Medical Center 30210971] Future Scheduled 2019-11-29 INFLUENZA VACCINE (#1) [facility] - Test 00:00:00 [code = INFLUENZA Medical Ce nter VACCINE (#1)] Future Scheduled 2017-11-[address] [facility] - Test 00:00[facility]00 measurement [facility] (procedure) [code = 02308036] Future Scheduled [address] [facility] - Test 00[facility]00[facility]00 [facility] cervix (procedure) [code = 383236295] Future Scheduled 1979 DIABETIC EYE EXAM [facility] - Test 00:00:00 [code = DIABETIC EYE Medical Center EXAM] Future Scheduled 1979 Urine screening for [facility] - Test 00:00:00 protein (procedure) Medical Center [code = 443097362] Future Scheduled [address] [facility] - Test 00:00:00 0-64 YRS (1 of 1 - Medical C enter PPSV23) [code = PNEUMOCOCCAL VACCINE 0-64 YRS (1 of 1 - PPSV23)] Future Scheduled [address] [facility] - Test 00:00:00 [facility] breast (procedure[facility] [code = 749700805] Future Scheduled [address] [facility] - Test 00:00:00 [facility] colon (procedure) [code = 374669648] Encounters Start End Encounter Admission Attending Care Care Encounter Source Date/Time Date/Time Type Type Clinicians Facility Department ID 2020-06-17 2020-06-17 Orders Doctor [facility]RA [id number] 00:00:00 00:00:00 Only Unassigned, GREGORY [id number] [place] [facility] [id number] [id number] 2020-05-19 2020-05-19 Emergency [place], [facility] [id number] 15:45:00 18:07:00 Pastora Suarez [id number] [place] 4.2.7.2.686 [place] [id number] 2019-08-21 2019-08-22 Emergency [facility], [facility] [id number] 23:48:04 02:26:00 Jose Cruz Suarez [id number] [place] 4.2.7.2.686 [place] [id number] 2019-08-06 2019-08-06 Telephone IQRA Barragan [id number] 00:00:00 00:00:00 Apoorva JENKINS [id number] [facility] [id number] [id number] 2019-08-06 2019-08-06 Telephone [facility] [place] [id number] 00:00:00 00:00:00 Jinny JENKINS [id number] [facility] [id number] [id number] 2019-08-05 2019-08-05 Telephone [facility] Box [id number] 00:00:00 00:00:00 Jinny JENKINS [id number] [facility] 4.2.7.2.686 [id number] Results Test Description Test Time Test Comments Results Result Comments Source POCT-GLUCOSE METER 2017-09-01 17:07:00 Test Item Value Reference Range Interpretation Comme nts POC-GLUCOSE METER ([facility]) (test 298 mg/dL 70-110 H TESTED AT [address] code = 1538) [facility] 7[address] 0 POCT-GLUCOSE [id number] 12:11:00 Test Item Value Reference Range Interpretation Comments POC-GLUCOSE METER 331 mg/dL 70-110 H Notified R Devante SOUZA/TESTED ([facility]) (test code = AT [place] [address] [address] [address]38) [facility] 7703 0 POCT-GLUCOSE [id number] 10:55:00 Test Item Value Reference Range Interpretation Comments POC-GLUCOSE METER 365 mg/dL 70-110 H TESTED AT [place] [address] ([facility]) (test code = ELIZABETH Flynn [facility] 1538) [address] POCT-GLUCOSE [id number] 08:44:00 Test Item Value Reference Range Interpretation Comments POC-GLUCOSE METER 291 mg/dL 70-110 H TESTED AT [place] [address] ([facility]) (test code = ELIZABETH Flynn [facility] 1538) [address] LIPID [id number] 05:56:00 Test Item Value Reference Range Interpretation Comments TRIGLYCERIDES ([facility]) (test code = 279 mg/dL 540) CHOLESTEROL ([facility]) (test code = 119 mg/dL 631) HDL CHOLESTEROL ([facility]) (test code 22 mg/dL = 976) LDL CHOLESTEROL CALCULATED ([facility]) 41 mg/dL (test code = 633) Triglyceride Reference Range: Low Risk <150 Borderline 150-199 High Risk 200-499 Very High Risk >=500Cholesterol Reference Range: Low Risk <200 Borderline 200-239 High Risk >240HDL Cholesterol Reference Range: Low Risk >=60 High Risk <40LDL Cholesterol Reference Range: Optimal <100 Near Optimal 100-129 Borderline 130-159 High 160-189 Very High >=190POCT-GLUCOSE [id number] 21:50:00 Test Item Value Reference Range Interpretation Comments POC-GLUCOSE METER 318 mg/dL 70-110 H TESTED AT [place] [address] ([facility]) (test code = ELIZABETH Flynn [place] 1538) [address] POCT-GLUCOSE [id number] 18:04:00 Test Item Value Reference Range Interpretation Comments POC-GLUCOSE METER 238 mg/dL 70-110 H TESTED AT [place] [address] ([facility]) (test code = ELIZABETH Flynn [place] 1538) [address] POCT-GLUCOSE [id number] 12:22:00 Test Item Value Reference Range Interpretation Comments POC-GLUCOSE METER 290 mg/dL 70-110 H TESTED AT [place] [address] ([facility]) (test code = ELIZABETH Flynn [place] 1538) [address] POCT-GLUCOSE [id number] 09:20:00 Test Item Value Reference Range Interpretation Comments POC-GLUCOSE METER 293 mg/dL 70-110 H TESTED AT [place] [address] ([facility]) (test code = ELIZABETH Flynn [place] 1538) [address] POCT-GLUCOSE [id number] 21:00:00 Test Item Value Reference Range Interpretation Comments POC-GLUCOSE METER 225 mg/dL 70-110 H TESTED AT [place] [address] ([facility]) (test code = CHRISTROXANNE Flynn [place] 1538) [address] CT, CTANGIO [id number] 18:01:00FINAL REPORT CT angiogram of the upper [...] Petersen Verified Date/Time: 08/30/2017 18:01:31 Reading Location: [address] Neuro Reading Room , CAROTID, [id number] 18:01:00FINAL REPORT CT angiogram of the upper [...] [place] Verified Date/Time: 08/30/2017 18:01:31 Reading Location: [facility] C013V Neuro Reading Room -GLUCOSE [id number] 17:21:00 Test Item Value Reference Range Interpretation Comments POC-GLUCOSE METER 256 mg/dL 70-110 H TESTED AT [place] [address] ([facility] (test code = CHRISTROXANNE Rina [facility] 1538) [address] POCT-GLUCOSE [id number] 12:00:00 Test Item Value Reference Range Interpretation Comments POC-GLUCOSE METER 289 mg/dL 70-110 H TESTED AT [place] [address] ([facility]) (test code = CHRISTCA Rina [facility] 1538) [address] BASIC METABOLIC [id number] 10:12:00 Test Item Value Reference Range Interpretation [...] NOT APPLICABLE FOR DIALYSIS PATIEN TS. POCT-GLUCOSE [id number] 08:42:00 Test Item Value Reference Range Interpretation Comments POC-GLUCOSE METER 259 mg/dL 70-[address] [facility] [address] (BEAKER) (test code = ELIZABETH [place] 1538) [address] TROPONIN [id number] 06:14:00 Test Item Value Reference Range Interpretation [...] = 2801) RAD, CHEST, 1 VIEW, NON [id number] 04:23:00Reason for exam:->chest painShould this be performed at the bedside?->YesFINAL REPORT Comparison examination: None No pneumothorax, focal pulmonary co nsolidation, or significant pleural effusion. Normal cardiomediastinal contours. Normal skeleton and soft tissues. Impression: No acute abnormality. Signed: Ervin Jenkins Verified Date/Time: 08/30/2017 04:23:04 Reading Location: [address] Reading Room POCT-GLUCOSE [id number] 21:18:00 Test Item Value Reference Range Interpretation Comments POC-GLUCOSE METER 151 mg/dL 70-[address] [facility] [address] ([facility]) (test code = ELIZABETH [place] 1538) [address] POCT-GLUCOSE [id number] 17:59:00 Test Item Value Reference Range Interpretation Comments POC-GLUCOSE METER 146 mg/dL 70-[address] [facility] [address] (JESSICA) (test code = ELIZABETH Flynn [facility] 1538) [address] HEMOGLOBIN [id number] 15:56:00 Test Item Value Reference Range Interpretation Comments HEMOGLOBIN A1C (JESSICA) (test code = 13.7 % 4.3-6.1 H 368) CT, BRAIN, WITHOUT [id number] 14:52:00FINAL REPORT CT head without contrast. Comparisons: [...] Petersen Verified Date/Time: 08/29/2017 14:52:09 Reading Location: [address] Neuro Reading Room POCT-GLUCOSE [id number] 14:17:00 Test Item Value Reference Range Interpretation Comments POC-GLUCOSE METER 423 mg/dL 70-110 HH Notified R Devante SOUZA/TESTED (JESSICA) (test code = AT [facility] [address] [address]38) [facility] 7703 0 VITAMIN [id number] 06:48:00 Test Item Value Reference Range Interpretation Comments VITAMIN B12 (JESSICA) (test code = 300 pg/mL 213-602 554) TSH/FREE T4 IF [id number] 06:48:00 Test Item Value Reference Range Interpretation Comments THYROID STIMULATING HORMONE 1.55 uIU/mL 0.35-4.94 (JESSICA) (test code = 772) CBC W/PLT COUNT & AUTO [id number] 05:10:00 Test Item Value Reference Range Interpretation [...] (BEAKER) (test code = 2801) URINALYSIS W/ [id number] 23:32:00 Test Item Value Reference Range Interpretation [...] = 1585) Occasional SOURCE(BEAKER) (test code = 4712) TROPONIN [id number] 23:12:00 Test Item Value Reference Range Interpretation [...] acute neurological disease, and persistent tachyarrhythmia.BASIC METABOLIC [id number] 23:05:00 Test Item Value Reference Range Interpretation [...] NOT APPLICABLE FOR DIALYSIS PATIEN TS. POCT-GLUCOSE [id number] 20:49:00 Test Item Value Reference Range Interpretation Comments POC-GLUCOSE METER 376 mg/dL 70-110 H Notified R Devante SOUZA/TESTED (BEAKER) (test code = AT [facility] [address] [address]) [facility] 7703 0
--- NOTE | 2020-07-21 19:16 | RAD REPORT ---
EXAM DESCRIPTION: CT - CTHCSPWOC - 07/21/2020 7:06 pm CLINICAL HISTORY: Trauma, head and neck injury. PAIN COMPARISON: SOFT TISSUE NECK W CONTRAST dated 08/03/2010 TECHNIQUE: Axial 5 mm thick images of the head were obtained. Axial 2 mm thick images of the cervical spine were obtained with sagittal and coronal reconstruction images generated and reviewed. All CT scans are performed using dose optimization technique as appropriate and may include automated exposure control or mA/KV adjustment according to patient size. FINDINGS: CT HEAD WITHOUT CONTRAST: No acute hemorrhage, hydrocephalus or extra-axial collection is identified.No areas of brain edema or midline shift. The paranasal sinuses and mastoids are clear.The calvarium is intact. CT CERVICAL SPINE WITHOUT CONTRAST: No fracture or subluxation.Mild lower cervical degenerative changes.No prevertebral soft tissues swel ling is identified. IMPRESSION: No acute intracranial or cervical spine findings.
--- NOTE | 2020-07-21 19:19 | RAD REPORT ---
EXAM DESCRIPTION: CT - CTFB CLINICAL HISTORY: right jaw pain Facial pain and swelling COMPARISON: No comparisons TECHNIQUE: Axial 2 mm thick images of the face were obtained with sagittal and coronal reconstructio n images. All CT scans are performed using dose optimization technique as appropriate and may include automated exposure control or mA/KV adjustment according to patient size. FINDINGS: No acute facial bone fracture is seen.The mandible is intact. The globes and orbital contents are grossly unremarkable.The paranasal sinuses and mastoids are clear . IMPRESSION: Negative for facial bone fracture.
[2020-07-21 19:45] LABS: Absolute Lymphocytes (CBC) 2.7 K/uL (0.7-4.9); Basophils % 0.5 % (0-1.3); Hematocrit 39.3 % (36.0-45.0); Lymphocytes % 35.5 % (15.3-44.8); RBC Red Blood Cell Count 4.99 M/uL (3.86-4.86)
[2020-07-21 19:52] LABS: Protime INR 1.03
[2020-07-21] MEDS ORDERED: PROMETHAZINE INJ 25 MG/ML AMP ONE (19:56)
[2020-07-21] MEDS ORDERED: HYDROMORPHONE HCL 0.5 MG/0.5 ML INJ ONE ×2 (19:57→21:24)
--- NOTE | 2020-07-21 20:03 | RAD REPORT ---
EXAM DESCRIPTION: RAD - Chest Single View - 07/21/2020 7:39 pm CLINICAL HISTORY: CHEST PAIN Chest pain. COMPARISON: Chest Single View dated 07/17/2020; Chest Single View dated 07/11/2020; Chest Single View dated 12/19/2019; Abdomen 1 View (KUB) dated 11/13/2018 FINDINGS: Portable technique limits examination quality. The lungs are grossly clear. The heart is normal in size. No displaced fractures. IMPRESSION: No acute intrathoracic process suspected.
[2020-07-21 20:04] LABS: ALT/SGPT 29 U/L (12-78); AST/SGOT 11 U/L (15-37); Albumin 3.6 g/dL (3.4-5.0); Alkaline Phosphatase 118 U/L (45-117); BUN Blood Urea Nitrogen 11 mg/dL (7-18); Bicarbonate 28 mmol/L (21-32); Bilirubin Direct < 0.1 mg/dL (0-0.2); Bilirubin Total 0.3 mg/dL (0.2-1.0); Glucose Level 335 mg/dL (74-106); Magnesium 1.7 mg/dL (1.8-2.4); NT PRO-BNP 28 pg/mL (<125); Potassium 3.8 mmol/L (3.5-5.1); Protein, Total 7.6 g/dL (6.4-8.2); Sodium Level 138 mmol/L (136-145); Troponin (Emerg Dept Use Only) < 0.02 ng/mL (0.0-0.045)
--- NOTE | 2020-07-21 20:25 | ER ---
Nurse's Notes [facility] Name: Elly Clarke Age: 50 yrs Sex: Female : 1970 Arrival Date: 07/21/2020 Time: 17:15 Bed 20 Private MD: Diagnosis: Syncope and collapse;Superficial injury of head-contusion and abrasion forehead and right mandible;Contusion of right shoulder Presentation: 07/21 17:38 Chief complaint: Patient states: Still having GERBER, cold inside, nausea, chills, pains to ll1 both legs since 07/09/20. States it hasn't gotten better. States she started passing out last week. Passed out today and hit the coffee table. Abrasion to R side of forehead. Bruising R chin/jaw. R shoulder pain and redness. States she got the J\T\J covid shot 07/09/20, then all these symptoms started. Coronavirus screen: Client denies travel out of the [place] in the last 14 days. chills, congestion, cough unrelated to allergies, diarrhea, fatigue, headache, muscle pain, nausea, runny nose, shaking with chills, Client presents with at least one sign or symptom that may indicate coronavirus-19. Standard/surgical mask placed on the client. Ebola Screen: Patient denies travel to an Ebola-affected area in the 21 days before illness onset. Initial Sepsis Screen: Does the patient meet any 2 criteria? HR > 90 bpm. No. Patient's initial sepsis screen is negative. Does the patient have a suspected source of infection? No. Patient's initial sepsis screen is negative. Risk Assessment: Do you want to hurt yourself or someone else? Patient reports no desire to harm self or others. Onset of symptoms was July 09, 2020. 17:38 Method Of Arrival: Wheelchair ll1 17:38 Acuity: HANNAH 3 ll1 Triage Assessment: 17:46 General: Appears distressed, uncomfortable, Behavior is cooperative, appropriate for ll1 age, crying. Pain: Complains of pain in head Quality of pain is described as aching, Aggravated by increased activity. 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 Full function Gait is steady, Speech is normal, Facial symmetry appears normal, Reports headache paresthesias a syncopal episode weakness. Cardiovascular: Reports fatigue, lightheadedness, nausea, shortness of breath, syncope, Capillary refill < 3 seconds Clubbing of nail beds is absent JVD is absent Patient's skin is warm and dry. Respiratory: No deficits noted. GI: Abdomen is round Bowel sounds present X 4 quads. Reports nausea. Derm: pain R jaw area with bruising Reports pain abrasion R forehead. Injury Description: Head injury Bruise. Historical: - Allergies: 17:45 Claritin (insomnia); ll1 17:45 Compazine (Seizures); ll1 17:45 Demerol (HEART RACING); ll1 17:45 (Hives); ll1 17:45 Morphine (RACING HEART); ll1 - Home Meds: 19:46 tizanidine 2 mg Oral cap 2 caps twice a day [Active]; metformin 500 mg Oral tab 1 tab 2 sf times per day [Active]; clonazepam 1 mg Oral tab 1 tab 2 times per day [Active]; carvedilol Oral 1 tab 2 times per day [Active]; butorphanol tartrate 10 mg/mL nasal spry 1 spray as needed for Migraine [Active]; Ambien 10 mg Oral tab 1 tab once daily for Sleep-Onset Insomnia [Active]; - PMHx: 17:45 Arthritis; Chrohns; Chronic pain; Diabetes - NIDDM; Dramatic migraine events; ll1 Gastroparesis; High Cholesterol; Hypertension; Migraines; Pancreatitis; spinal stenosis; insomnia; Anxiety; - PSHx: 17:45 Knee surgery; Hysterectomy; Appendectomy; Cholecystectomy; ll1 - Immunization history:: Client reports receiving the 1st dose of the Covid vaccine, Flu vaccine is not up to date. - Social history:: Smoking status: Patient denies any tobacco usage or history of. Screenin:15 Abuse screen: Denies threats or abuse. Denies injuries from another. Nutritional sf screening: No deficits noted. Tuberculosis screening: No symptoms or risk factors identified. Fall Risk Fall in past 12 months (25 points). No secondary diagnosis (0 pts). IV access (20 points). Ambulatory Aid- None/Bed Rest/Nurse Assist (0 pts). Gait- Normal/Bed Rest/Wheelchair (0 pts) Mental Status- Oriented to own ability (0 pts). Total Moreno Fall Scale indicates High Risk Score (45 or more points). Fall prevention measures have been instituted. Side Rails Up X 2 Placed Close to Nursing Station Frequent Obs/Assessments Occuring. Assessment: 19:15 General: Appears uncomfortable, obese, Behavior is cooperative, crying, fussy. Pain: sf Complains of pain in face Pain currently is 9 out of 10 on a pain scale. Neuro: No deficits noted. Level of Consciousness is awake, alert, Oriented to person, place, time, situation. Cardiovascular: No deficits noted. Patient's skin is warm and dry. Rhythm is sinus rhythm. Respiratory: No deficits noted. Airway is patent Respiratory effort is even, unlabored, Respiratory pattern is regular, symmetrical. GI: No deficits noted. No signs and/or symptoms were reported involving the gastrointestinal system. : No deficits noted. No signs and/or symptoms were reported regarding the genitourinary system. Derm: No deficits noted. No signs and/or symptoms reported regarding the dermatologic system. Musculoskeletal: No deficits noted. No signs and/or symptoms reported regarding the musculoskeletal system. 20:55 Reassessment: Patient appears in no apparent distress at this time. Patient and/or sf family updated on plan of care and expected duration. Pain level reassessed. Patient is alert, oriented x 3, equal unlabored respirations, skin warm/dry/pink. Patient states feeling better. Patient states symptoms have improved. 21:43 Reassessment: Patient appears in no apparent distress at this time. Patient and/or sf family updated on plan of care and expected duration. Pain level reassessed. Patient is alert, oriented x 3, equal unlabored respirations, skin warm/dry/pink. Patient states feeling better. Patient states symptoms have improved. Vital Signs: 17:38 BP 139 / 104; Pulse 99; Resp 17; Temp 97.3; Pulse Ox 97% ; Weight 97.07 kg; Height 5 ll1 ft. 7 in. (170.18 cm); Pain 9/10; 19:30 BP 119 / 71; Pulse 85; Resp 16; Pulse Ox 96% ; sf 20:30 BP 151 / 93; Pulse 87; Resp 16; Pulse Ox 94% ; sf 20:55 Pain 6/10; sf 21:00 BP 118 / 68; Pulse 86; Resp 16; Pulse Ox 93% ; sf 21:30 BP 131 / 81; Pulse 84; Resp 16; Pulse Ox 93% ; sf 17:38 Body Mass Index 33.52 (97.07 kg, 170.18 cm) ll1 ED Course: 17:15 Patient arrived in ED. ds1 17:43 Triage completed. ll1 17:45 Arm band placed on. ll1 18:33 Dimas Tomlin RN is Primary Nurse. ll1 18:35 [facility] Leung [facility]. pm1 18:35 Kam Parker MD is Attending Physician. pm1 19:06 CT Head C Spine In Process Unspecified. EDMS 19:07 CT Facial Bones W/O Con In Process Unspecified. EDMS 19:15 Patient has correct armband on for positive identification. Bed in low position. Call sf light in reach. Side rails up X2. desk monitor on. Pulse ox on. NIBP on. Door closed. Noise minimized. Visitors limited. Lights dimmed. Warm blanket given. Verbal reassurance given. 19:20 XRAY Chest (1 view) Sent. sf 19:21 X-ray(s) taken. sf 19:30 Initial lab(s) drawn, by sc, sent to lab. Inserted saline lock: 20 gauge in left sf antecubital area, using aseptic technique. Blood collected. 19:39 XRAY Chest (1 view) In Process Unspecified. EDMS 20:15 Primary Nurse role handed off by Dimas Tomlin RN tt3 20:57 EKG done, by ED staff, reviewed by Jose A Leung NP. sf 21:43 No provider procedures requiring assistance completed. sf 22:00 IV discontinued, intact, bleeding controlled, No redness/swelling at site. Pressure sf dressing applied. Administered Medications: 19:42 Drug: Phenergan (promethazine) 12.5 mg {Note: mixed in 10 ml flush.} Route: IVP; Site: sf left antecubital; 21:01 Follow up: Response: No adverse reaction sf 19:43 Drug: Dilaudid (HYDROmorphone) 0.5 mg Route: IVP; Site: left antecubital; sf 21:02 Follow up: Response: No adverse reaction sf 20:53 Drug: NS 0.9% 1000 ml Route: IV; Rate: 1000 ml; Site: left antecubital; sf 22:00 Follow up: Response: No adverse reaction; IV Status: Completed infusion; IV Intake: sf 1000ml 21:07 Drug: Dilaudid (HYDROmorphone) 0.5 mg Route: IVP; Site: left antecubital; sf 21:44 Follow up: Response: No adverse reaction; Pain is decreased sf Intake: 22:00 IV: 1000ml; Total: 1000ml. sf Outcome: 20:25 Discharge ordered by MD. pm1 21:42 Discharged to home ambulatory. sf 21:42 Condition: stable 21:42 Discharge instructions given to patient, Instructed on discharge instructions, follow up and referral plans. medication usage, Demonstrated understanding of instructions, follow-up care, medications, Prescriptions given X 3. 22:02 Patient left the ED. sf Signatures: Dispatcher [employer] EDLA Consuelo Varela ds1 Jose A Leung, HOPPER OPERATOR HOPPER OPERATOR pm1 Dimas Tomlin RN RN ll1 [place] tt3 Facundo Dunn RN RN sf Corrections: (The following items were deleted from the chart) 19:20 19:12 To radiology for Chest Single View+[email or web address]. sf sf
--- NOTE | 2020-07-21 20:25 | EDPHYS ---
Physician Documentation [facility] Name: Elly Clarke Age: 50 yrs Sex: Female : 1970 Arrival Date: 07/21/2020 Time: 17:15 Bed 20 Private MD: ED Physician Kam Parker HPI: 07/21 19:06 This 50 yrs old Female presents to ER via Wheelchair with complaints of pm1 Passed Out Prior To Arrival, Fall Injury. 19:06 The patient has experienced syncope. Onset: The symptoms/episode began/occurred Since pm1 getting covid vaccine on 07/09/2020. Context: Just prior to the episode the patient experienced Patient reports continuous GERBER, chills, nausea, and body aches since vaccination. Associated injury: Head/face: forehead and right jaw, abrasion, contusion, Right upper extremity: anterior aspect of right shoulder, pain. Associated signs and symptoms: Pertinent positives: Decreased appetite and poor PO intake, Pertinent negatives: chest pain, diarrhea, shortness of breath, vomiting. The patient has been recently seen at the [facility] Emergency Department, this week, for similar complaints. Historical: - Allergies: 17:45 Claritin (insomnia); ll1 17:45 Compazine (Seizures); ll1 17:45 Demerol (HEART RACING); ll1 17:45 (Hives); ll1 17:45 Morphine (RACING HEART); ll1 - Home Meds: 19:46 tizanidine 2 mg Oral cap 2 caps twice a day [Active]; metformin 500 mg Oral tab 1 tab 2 sf times per day [Active]; clonazepam 1 mg Oral tab 1 tab 2 times per day [Active]; carvedilol Oral 1 tab 2 times per day [Active]; butorphanol tartrate 10 mg/mL nasal spry 1 spray as needed for Migraine [Active]; Ambien 10 mg Oral tab 1 tab once daily for Sleep-Onset Insomnia [Active]; - PMHx: 17:45 Arthritis; Chrohns; Chronic pain; Diabetes - NIDDM; Dramatic migraine events; ll1 Gastroparesis; High Cholesterol; Hypertension; Migraines; Pancreatitis; spinal stenosis; insomnia; Anxiety; - PSHx: 17:45 Knee surgery; Hysterectomy; Appendectomy; Cholecystectomy; ll1 - Immunization history:: Client reports receiving the 1st dose of the Covid vaccine, Flu vaccine is not up to date. - Social history:: Smoking status: Patient denies any tobacco usage or history of. ROS: 19:06 Eyes: Negative for injury, pain, redness, and discharge, ENT: Negative for injury, pm1 pain, and discharge, Neck: Negative for injury, pain, and swelling, Cardiovascular: Negative for chest pain, palpitations, and edema, Respiratory: Negative for shortness of breath, cough, wheezing, and pleuritic chest pain. 19:06 : Negative for injury, bleeding, discharge, and swelling, MS/Extremity: Negative for injury and deformity, Skin: Negative for injury, rash, and discoloration. 19:06 Constitutional: Positive for body aches, chills, poor PO intake, Negative for fever. 19:06 Abdomen/GI: Positive for nausea, Negative for abdominal pain, vomiting, diarrhea. 19:06 Back: Positive for Chronic low back pain from herniated discs. 19:06 Neuro: Positive for headache, syncope, Negative for numbness, tingling, weakness. Exam: 19:06 Abdomen/GI: Exam negative for acute changes, Inspection: abdomen appears normal, pm1 Palpation: abdomen is soft and non-tender, in all quadrants. 19:06 Constitutional: This is a well developed, well nourished patient who is awake, alert, and in no acute distress. Neck: Trachea midline, no thyromegaly or masses palpated, and no cervical lymphadenopathy. Supple, full range of motion without nuchal rigidity, or vertebral point tenderness. No Meningismus. Chest/axilla: Normal chest wall appearance and motion. Nontender with no deformity. No lesions are appreciated. Cardiovascular: Regular rate and rhythm with a normal S1 and S2. No gallops, murmurs, or rubs. Normal PMI, no JVD. No pulse deficits. Respiratory: Lungs have equal breath sounds bilaterally, clear to auscultation and percussion. No rales, rhonchi or wheezes noted. No increased work of breathing, no retractions or nasal flaring. Back: No spinal tenderness. No costovertebral tenderness. Full range of motion. Skin: Warm, dry with normal turgor. Normal color with no rashes, no lesions, and no evidence of cellulitis. MS/ Extremity: Pulses equal, no cyanosis. Neurovascular intact. Full, normal range of motion. 19:06 Neuro: Exam negative for acute changes, Orientation: is normal, Mentation: is normal, Motor: moves all fours, Sensation: is normal, no obvious gross deficits. 19:06 Psych: Behavior/mood is anxious, Affect is animated, Oriented to person, place, time, Patient has no thoughts/intents to harm self or others. Vital Signs: 17:38 BP 139 / 104; Pulse 99; Resp 17; Temp 97.3; Pulse Ox 97% ; Weight 97.07 kg; Height 5 ll1 ft. 7 in. (170.18 cm); Pain 9/10; 19:30 BP 119 / 71; Pulse 85; Resp 16; Pulse Ox 96% ; sf 20:30 BP 151 / 93; Pulse 87; Resp 16; Pulse Ox 94% ; sf 20:55 Pain 6/10; sf 21:00 BP 118 / 68; Pulse 86; Resp 16; Pulse Ox 93% ; sf 21:30 BP 131 / 81; Pulse 84; Resp 16; Pulse Ox 93% ; sf 17:38 Body Mass Index 33.52 (97.07 kg, 170.18 cm) ll1 MDM: 18:41 Patient medically screened. zoe 20:23 Data reviewed: vital signs. Data interpreted: Pulse oximetry: on room air is 96 %. pm1 Interpretation: normal. Counseling: I had a detailed discussion with the patient and/or guardian regarding: the historical points, exam findings, and any diagnostic results supporting the discharge/admit diagnosis, lab results, radiology results, the need for outpatient follow up, to return to the emergency department if symptoms worsen or persist or if there are any questions or concerns that arise at home. 20:36 [facility] with recent prescriptions for tramadol and pm1 clonazepam on 07/11 and 07/17. Overdose risk score of 400 on PMPAware. Patient is asking for refill of these medications for discharge today due to her anxiety and pain. Patient is high risk for potentially overdosing. Discussed with my attending and does not recommend prescribing those medications and she needs to follow up with her PCP who can prescribe and monitor her for those medications. 20:48 ED course: Discussed [employer] TWISTER aware with patient. Patient agreed to going home on a pm1 prescription for hydroxyzine, phenergan, and tizanidine. Patient used to get pain management treatment from [facility]. 07/21 18:44 Order name: Basic Metabolic Panel; Complete Time: 20:22 pm07/21 18:44 Order name: CBC with Diff; Complete Time: 19:53 pm07/21 18:44 Order name: LFT's; Complete Time: 20:22 pm07/21 18:44 Order name: Magnesium; Complete Time: 20:22 pm07/21 18:44 Order name: NT PRO-BNP; Complete Time: 20:22 pm07/21 18:44 Order name: PT-INR; Complete Time: 19:56 pm07/21 18:44 Order name: Troponin (emerg Dept Use Only); Complete Time: 20:22 pm07/21 18:44 Order name: XRAY Chest (1 view); Complete Time: 20:07 pm07/21 18:44 Order name: CT Head C Spine; Complete Time: 19:22 pm07/21 18:44 Order name: CT Facial Bones W/O Con; Complete Time: 19:22 pm07/21 18:44 Order name: EKG; Complete Time: 18:46 pm07/21 18:44 Order name: Cardiac monitoring; Complete Time: 19:35 pm07/21 18:44 Order name: EKG - Nurse/Tech; Complete Time: 21:02 pm07/21 18:44 Order name: IV Saline Lock; Complete Time: 19:35 pm07/21 18:44 Order name: Labs collected and sent; Complete Time: 19:35 pm07/21 18:44 Order name: O2 Per Protocol; Complete Time: 19:35 pm07/21 18:44 Order name: O2 Sat Monitoring; Complete Time: 19:35 pm1 Administered Medications: 19:42 Drug: Phenergan (promethazine) 12.5 mg {Note: mixed in 10 ml flush.} Route: IVP; Site: sf left antecubital; 21:01 Follow up: Response: No adverse reaction sf 19:43 Drug: Dilaudid (HYDROmorphone) 0.5 mg Route: IVP; Site: left antecubital; sf 21:02 Follow up: Response: No adverse reaction sf 20:53 Drug: NS 0.9% 1000 ml Route: IV; Rate: 1000 ml; Site: left antecubital; sf 22:00 Follow up: Response: No adverse reaction; IV Status: Completed infusion; IV Intake: sf 1000ml 21:07 Drug: Dilaudid (HYDROmorphone) 0.5 mg Route: IVP; Site: left antecubital; sf 21:44 Follow up: Response: No adverse reaction; Pain is decreased sf Disposition: 07/22 08:12 Co-signature as Attending Physician, Kam Parker MD I agree with the assessment and zoe plan of care. Disposition: 07/21/20 20:25 Discharged to Home. Impression: Syncope and collapse, Superficial injury of head - contusion and abrasion forehead and right mandible, Contusion of right shoulder. - Condition is Stable. - Discharge Instructions: Abrasion, Contusion, Facial or Scalp Contusion, Head Injury, Adult, Syncope. - Prescriptions for tizanidine 2 mg Oral tablet - take 1 tablet by ORAL route every 6 hours As needed as needed not to exceed 3 doses in 24 hours; 20 tablet. promethazine 25 mg Oral Tablet - take 1 tablet by ORAL route every 6 hours As needed; 20 tablet. Hydroxyzine HCl 25 mg Oral Tablet - take 1 tablet by ORAL route every 6 hours As needed; 12 tablet. - Medication Reconciliation Form, Thank You Letter, Antibiotic Education, Prescription Opioid Use, SBAR form form. - Follow up: Emergency Department; When: As needed; Reason: Worsening of condition. Follow up: Private Physician; When: 2 - 3 days; Reason: Recheck today's complaints, Continuance of care, Re-evaluation by your physician. - Problem is new. - Symptoms have improved. Signatures: Dispatcher [employer] Kam Corrales MD MD cha Marinas, Patrick, TREE MARKER TREE MARKER pm1 Dimas Tomlin RN RN ll1 Facundo Dunn RN RN sf Corrections: (The following items were deleted from the chart) 07/21 21:03 18:44 Orthostatics ordered. pm1 sf 22:02 20:25 07/21/2020 20:25 Discharged to Home. Impression: Syncope and collapse; sf Superficial injury of head - contusion and abrasion forehead and right mandible; Contusion of right shoulder. Condition is Stable. Forms are SBAR form, Medication Reconciliation Form, Thank You Letter, Antibiotic Education, Prescription Opioid Use. Follow up: Emergency Department; When: As needed; Reason: Worsening of condition. Follow up: Private Physician; When: 2 - 3 days; Reason: Recheck today's complaints, Continuance of care, Re-evaluation by your physician. Problem is new. Symptoms have improved. pm1
[2020-07-21] MEDS ORDERED: NA CHLORIDE 0.9% 1,000 ML ONE (21:08)
[2020-07-21 22:11] VITALS: TEMP 97.3
[2020-07-21 22:16] VITALS: O2SAT 93
[2020-07-21 22:17] VITALS: BP 131/81
--- NOTE | 2020-07-22 08:15 | EKG ---
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
== END 2020-07-21 22:02 | disposition home or self-care (01) ==
LOC: ER 17:12
DX: S00.81XA Abrasion of other part of head, initial encounter (principal); S40.011A Contusion of right shoulder, initial encounter; I10 Essential (primary) hypertension; E11.9 Type 2 diabetes mellitus without complications; Z88.5 Allergy status to narcotic agent; Z88.8 Allergy status to other drugs, medicaments and biological substances
CPT/HCPCS: 36415; 70450; 70486; 71045; 72125; 76377; 80048; 80076; 83735; 83880; 84484; 85025; 85610; 93005; 96361; 96374; 96375; 99285; J1170; J2550; J7030

== ENCOUNTER 2020-08-13 15:05 | Emergency (ER) | payer OTHER, SELFPAY ==
--- OUTSIDE RECORDS SUMMARY | 2020-08-13 15:10 | XMS REPORT | Continuity of Care Document ---
:1970 Author Organization [facility] t Address [address] [place] [address] Care Team Providers Name Role Phone Bina SOUZA [place] Primary Care Physician Eugenia FIELD REPRESENTATIVE/HEALTH EDUCATION, F Attending Clinician Doctor Unassigned, Name Attending Clinician Unavailable Isaias [...] Active [facility] 08-28 Luelaine - symptoms symptoms 00:00: Medica l 00 Center Allergies, Adverse Reactions, Alerts Allergy Allergy Status Severity Reaction(s) Onset Inactive Treating Comm ents Source Name Type Date Date Clinician Loratadi Propensi Active Other (See hyperacti [facility] to Comments) 08-28 [facility] - oephedri adverse 00:00: Medical ne reaction 00 Center s Prochlor Propensi Active Other (See Seizures [facility] perazine ty to Comments) 08-28 [facility] - adverse 00:00: Medical reaction 00 Center s Meperidi Propensi Active Rash [facility] ne ty to 08-28 [facility] - adverse 00:00: Medical reaction 00 Center s Phenobar Drug Active Itching, [facility] b-Hyoscy Allergy Rash 08-28 [facility] - -Atropin 00:00: Medical e-[facility] Center Morphine Propensi Active Rash [facility] ty to 08-28 [facility] - adverse 00:00: Medical reaction Center s Social History Social Habit Start Date Stop Date Quantity Comments Source Sex Assigned At [facility] Tobacco use and 2017-08-28 2017-08-28 Never used [facility] - exposure 00:00:00 00:00:00 [facility] Center Smoking Status Start Date Stop Date Source Never smoker [facility] Medications Ordered Filled Start Stop Current Ordering Indication Dosage Frequency Signature Comments Components Source Medication Medication Date Date Medication? Clinician (SIG) Name Name traMADol 2017- Yes 50mg Q.5D Take [address] [facility] (ULTRAM) 50 6-05 by mouth 2 Yu kes - mg tablet 18:22: (two) Medical 22 times Center daily. butorphanol 2017-0 Yes 1{spray [address] [facility] (STADOL) 10 6-05 } Nasal [facility] - mg/mL nasal 18:22: route Medic al spray 22 every 4 Center (four) hours as needed for Pain. amitriptyli 2018- Yes 10mg QD Take 10 mg [facility] [...] Comments Source Future Scheduled 2020-09-01 Lipid panel [facility] - Test 00:00:00 (procedure) [code = [facility] 53222148] Future Scheduled 2019-11-29 INFLUENZA VACCINE (#1) [facility] - Test 00:00:00 [code = INFLUENZA Medical Ce nter VACCINE (#1)] Future Scheduled 2017-11-[address] [facility] - Test 00:00:00 measurement [facility] Center (procedure) [code = 79778026] Future Scheduled [address] [facility] - Test 00:00:00 malignant [facility]oplasm of [facility] cervix (procedure) [code = 593882618] Future Scheduled 1979 DIABETIC EYE EXAM [facility] - Test 00:00:00 [code = DIABETIC EYE Medical Center EXAM] Future Scheduled 1979 Urine screening for [facility] - Test 00:00:00 protein (procedure) [facility] Center [code = 440915613] Future Scheduled [address] [facility] - Test 00:00:00 0-64 YRS (1 of 1 - Medical C enter PPSV23) [code = PNEUMOCOCCAL VACCINE 0-64 YRS (1 of 1 - PPSV23)] Future Scheduled [address] [facility] - Test 00:00:00 malignant neoplasm of [facility] breast (procedure) [code = 923636174] Future Scheduled [address] [facility] - Test 00:00:00 malignant neoplasm of [facility] colon (procedure) [code = 779444738] Encounters Start End Encounter Admission Attending Care Care Encounter Source Date/Time Date/Time Type Type Clinicians Facility Department ID 2020-08-05 2020-08-05 Emergency [facility] [id number] 20:44:00 23:55:00 Gopi Suarez [id number] [place] 4.2.7.2.686 [place] [id number] 2020-07-22 2020-07-22 Emergency [facility] [id number] 17:17:00 20:14:00 Gopi Suarez [id number] [place] 4.2.7.2.686 [place] [id number] 2020-06-17 2020-06-17 Orders Doctor ESCALONA [id number] 00:00:00 00:00:00 Only Unassigned, GREGORY 350.1.13.[address] [place] [address]686 [id number] 2020-05-19 2020-05-19 Emergency Esparza, [facility] [id number] 15:45:00 18:07:00 Pastora Curielton [id number] [place] 4.2.7.2.686 [place] [id number] 2019-08-21 2019-08-22 Emergency [facility] [id number] 23:48:04 02:26:00 Jose Cruz [place] 350.1.13.[address]686 [place] [id number] [id number] 2019-08-06 2019-08-06 Telephone IQRA Barragan [id number] 00:00:00 00:00:00 Apoorva JENKNIS [address].13.[address]686 [id number] 2019-08-06 2019-08-06 Telephone IsauroIQRA [id number] 00:00:00 00:00:00 Jinny JENKINS [address].13.[address]686 [id number] [id number] 2019-08-05 2019-08-05 Telephone IQRA Box [id number] 00:00:00 00:00:00 Jinny JENKINS [address].13.[address]686 [id number] [id number] Results Test Description Test Time Test Comments Results Result Comments Source POCT-GLUCOSE METER 2017-09-01 17:07:00 Test Item Value Reference Range Interpretation Comme edilia POC-GLUCOSE METER (JESSICA) (test 298 mg/dL 70-[address] [facility] [address] [facility] code = 1538) [facility] [address] POCT-GLUCOSE [id number] 12:11:00 Test Item Value Reference Range Interpretation Comments POC-GLUCOSE METER 331 mg/dL 70-110 H Notified R N MD/TESTED ([facility]) (test code = AT [facility] [address] 1538) [place] [address] POCT-GLUCOSE [id number] 10:55:00 Test Item Value Reference Range Interpretation Comments POC-GLUCOSE METER 365 mg/dL 70-110 H TESTED AT [place] [address] ([facility]) (test code = ELIZABETH Flynn [facility] 1538) [address] POCT-GLUCOSE [id number] 08:44:00 Test Item Value Reference Range Interpretation Comments POC-GLUCOSE METER 291 mg/dL 70-110 H TESTED AT [place] [address] ([facility]) (test code = ELIZABETH Flynn [facility] 1538) [address] LIPID [id number] 05:56:00 Test Item Value Reference Range Interpretation Comments TRIGLYCERIDES ([facility]) (test code = 279 mg/dL 540) CHOLESTEROL ([facility]) (test code = 119 mg/dL 631) HDL CHOLESTEROL ([facility]) (test code 22 mg/dL = 976) LDL CHOLESTEROL CALCULATED ([facility]) 41 mg/dL (test code = 633) Triglyceride Reference Range: Low Risk <150 Borderline 150-199 High Risk 200-499 Very High Risk >=500Cholesterol Reference Range: Low Risk <200 Borderline 200-239 High Risk >240HDL Cholesterol Reference Range: Low Risk >=60 High Risk <40LDL Cholesterol Reference Range: Optimal <100 Near Optimal 100-129 Borderline 130-159 High 160-189 Very High >=190POCT-GLUCOSE [id number] 21:50:00 Test Item Value Reference Range Interpretation Comments POC-GLUCOSE METER 318 mg/dL 70-110 H TESTED AT [place] [address] ([facility]) (test code = ELIZABETH Flynn [facility] 1538) [address] POCT-GLUCOSE [id number] 18:04:00 Test Item Value Reference Range Interpretation Comments POC-GLUCOSE METER 238 mg/dL 70-110 H TESTED AT [place] [address] ([facility]) (test code = ELIZABETH Flynn [facility] 1538) [address] POCT-GLUCOSE [id number] 12:22:00 Test Item Value Reference Range Interpretation Comments POC-GLUCOSE METER 290 mg/dL 70-110 H TESTED AT [place] [address] ([facility]) (test code = ELIZABETH [place] 1538) [address] POCT-GLUCOSE [id number] 09:20:00 Test Item Value Reference Range Interpretation Comments POC-GLUCOSE METER 293 mg/dL 70-[address] [facility] Sathish (JESSICA) (test code = ELIZABETH [place] 1538) [address] POCT-GLUCOSE [id number] 21:00:00 Test Item Value Reference Range Interpretation Comments POC-GLUCOSE METER 225 mg/dL 70-[address] [facility] Sathish (JESSICA) (test code = ELIZABETH [place] 1538) [address] CT, CAROTID, [id number] 18:01:00FINAL REPORT CT angiogram of the upper [...] Petersen Verified Date/Time: 08/30/2017 18:01:31 Reading Location: [address] Neuro Reading Room , CTANGIO [id number] 18:01:00FINAL REPORT CT angiogram of the upper [...] Petersen Verified Date/Time: 08/30/2017 18:01:31 Reading Location: [address] Neuro Reading Room -GLUCOSE [id number] 17:21:00 Test Item Value Reference Range Interpretation Comments POC-GLUCOSE METER 256 mg/dL 70-110 H TESTED AT [place] [address] ([facility]) (test code = ELIZABETH Flynn [facility] 1538) [address] POCT-GLUCOSE [id number] 12:00:00 Test Item Value Reference Range Interpretation Comments POC-GLUCOSE METER 289 mg/dL 70-[address] [facility] 6720 ([facility]) (test code = ELIZABETH Flynn [facility] 1538) [address] BASIC METABOLIC [id number] 10:12:00 Test Item Value Reference Range Interpretation [...] NOT APPLICABLE FOR DIALYSIS PATIEN TS. POCT-GLUCOSE [id number] 08:42:00 Test Item Value Reference Range Interpretation Comments POC-GLUCOSE METER 259 mg/dL 70-[address] [facility] 6720 ([facility]) (test code = [facility] 1538) [address] TROPONIN [id number] 06:14:00 Test Item Value Reference Range Interpretation [...] = 2801) RAD, CHEST, 1 VIEW, NON [id number] 04:23:00Reason for exam:->chest painShould this be performed at the bedside?->YesFINAL REPORT Comparison examination: None No pneumothorax, focal pulmonary co nsolidation, or significant pleural effusion. Normal cardiomediastinal contours. Normal skeleton and soft tissues. Impression: No acute abnormality. Signed: Ervin Jenkins Verified Date/Time: 08/30/2017 04:23:04 Reading Location: [address] Reading Room POCT-GLUCOSE [id number] 21:18:00 Test Item Value Reference Range Interpretation Comments POC-GLUCOSE METER 151 mg/dL 70-110 H TESTED AT [place] [address] ([facility]) (test code = ELIZABETH Flynn [place] 1538) [address] POCT-GLUCOSE [id number] 17:59:00 Test Item Value Reference Range Interpretation Comments POC-GLUCOSE METER 146 mg/dL 70-110 H TESTED AT [place] [address] ([facility]) (test code = ELIZABETH Flynn [facility] 1538) [address] HEMOGLOBIN [id number] 15:56:00 Test Item Value Reference Range Interpretation Comments HEMOGLOBIN A1C ([facility]) (test code = 13.7 % 4.3-6.1 H 368) CT, BRAIN, WITHOUT [id number] 14:52:00FINAL REPORT CT head without contrast. Comparisons: [...] Petersen Verified Date/Time: 08/29/2017 14:52:09 Reading Location: [facility] C0[facility] Neuro Reading Room POCT-GLUCOSE [id number] 14:17:00 Test Item Value Reference Range Interpretation Comments POC-GLUCOSE METER 423 mg/dL 70-110 Notified R Devante SOUZA/TESTED (BEAKER) (test code = AT [facility] [address] [facility] 5617) [place] [address] VITAMIN [id number] 06:48:00 Test Item Value Reference Range Interpretation Comments VITAMIN B12 (BEAKER) (test code = 300 pg/mL 213-816 774) TSH/FREE T4 IF [id number] 06:48:00 Test Item Value Reference Range Interpretation Comments THYROID STIMULATING HORMONE 1.55 uIU/mL 0.35-4.94 (BEAKER) (test code = 772) CBC W/PLT COUNT & AUTO [id number] 05:10:00 Test Item Value Reference Range Interpretation [...] (BEAKER) (test code = 2801) URINALYSIS W/ [id number] 23:32:00 Test Item Value Reference Range Interpretation [...] Occasional SOURCE(BEAKER) (test code = 2795) TROPONIN [id number] 23:12:00 Test Item Value Reference Range Interpretation [...] acute neurological disease, and persistent tachyarrhythmia.BASIC METABOLIC [id number] 23:05:00 Test Item Value Reference Range Interpretation [...] NOT APPLICABLE FOR DIALYSIS PATIEN TS. POCT-GLUCOSE [id number] 20:49:00 Test Item Value Reference Range Interpretation Comments POC-GLUCOSE METER 376 mg/dL 70-110 H Notified R Devante SOUZA/TESTED (BEAKER) (test code = AT [facility] [address] [address]) [facility] [address]
[2020-08-13 18:14] LABS: Urine Blood Negative (Negative); Urine Glucose 3+ (Negative); Urine Protein Trace (Negative); Urine Specific Gravity 1.025 (1.005-1.030); Urine pH 5.5 (5.0-7.0)
[2020-08-13 18:29] LABS: Absolute Lymphocytes (CBC) 2.2 K/uL (0.7-4.9); Basophils % 0.7 % (0-1.3); Hematocrit 43.7 % (36.0-45.0); Lymphocytes % 36.3 % (15.3-44.8); MPV 9.3 fL (7.6-11.3)
[2020-08-13 18:32] LABS: ALT/SGPT 26 U/L (12-78); AST/SGOT 12 U/L (15-37); Albumin 3.7 g/dL (3.4-5.0); Alkaline Phosphatase 101 U/L (45-117); BUN Blood Urea Nitrogen 15 mg/dL (7-18); Bicarbonate 27 mmol/L (21-32); Bilirubin Direct < 0.1 mg/dL (0-0.2); Bilirubin Total 0.3 mg/dL (0.2-1.0); Glucose Level 301 mg/dL (74-106); Lipase 193 U/L (73-393); Potassium 3.6 mmol/L (3.5-5.1); Protein, Total 7.9 g/dL (6.4-8.2); Sodium Level 137 mmol/L (136-145)
[2020-08-13] MEDS ORDERED: ONDANSETRON 4 MG/2 ML VIAL ONE (18:34)
[2020-08-13] MEDS ORDERED: NA CHLORIDE 0.9% 1,000 ML ONE (18:34)
[2020-08-13] MEDS ORDERED: HYDROMORPHONE HCL 1 MG/ML INJ ONE (18:40)
[2020-08-13] MEDS ORDERED: PROMETHAZINE INJ 25 MG/ML AMP ONE (18:40)
[2020-08-13] MEDS ORDERED: FAMOTIDINE 20 MG/2 ML VIAL IV ONE (18:41)
--- NOTE | 2020-08-13 19:08 | ER ---
Nurse's Notes [facility] Name: Elly Clarke Age: 50 yrs Sex: Female : 1970 Arrival Date: 08/13/2020 Time: 15:08 Bed 16 Private MD: Diagnosis: Gastroparesis Presentation: 08/13 15:18 Chief complaint: Patient states: my gastroparesis is acting up. Abdominal pain since ca1 yesterday. Nausea and little diarrhea. Shooting pain both legs since the last time I was here. Coronavirus screen: Client denies travel out of the [place] in the last 14 days. diarrhea, nausea, Client presents with at least one sign or symptom that may indicate coronavirus-19. Standard/surgical mask placed on the client. Provider contacted for isolation considerations. Ebola Screen: Patient negative for fever greater than or equal to 101.5 degrees Fahrenheit, and additional compatible Ebola Virus Disease symptoms Patient denies exposure to infectious person. Patient denies travel to an Ebola-affected area in the 21 days before illness onset. No symptoms or risks identified at this time. Initial Sepsis Screen: Does the patient meet any 2 criteria? No. Patient's initial sepsis screen is negative. Does the patient have a suspected source of infection? No. Patient's initial sepsis screen is negative. Risk Assessment: Do you want to hurt yourself or someone else? Patient reports no desire to harm self or others. Onset of symptoms was August 13, 2020. 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: 15:22 LMP N/A - Hysterectomy ca1 Historical: - Allergies: 15:21 Compazine (Seizures); ca1 15:21 Demerol (HEART RACING); ca1 15:21 (Hives); ca1 15:21 Morphine (RACING HEART); ca1 15:21 Claritin (insomnia); ca1 - Home Meds: 15:21 Ambien 10 mg Oral tab 1 tab once daily for Sleep-Onset Insomnia [Active]; butorphanol ca1 tartrate 10 mg/mL nasal spry 1 spray as needed for Migraine [Active]; clonazepam 1 mg Oral tab 1 tab 2 times per day [Active]; metformin 500 mg Oral tab 1 tab 2 times per day [Active]; tizanidine 2 mg Oral cap 2 caps twice a day [Active]; carvedilol Oral 1 tab 2 times per day [Active]; - PMHx: 15:21 Anxiety; Chrohns; insomnia; Hypertension; High Cholesterol; Gastroparesis; Dramatic ca1 migraine events; Diabetes - NIDDM; Chronic pain; Arthritis; Pancreatitis; Migraines; spinal stenosis; - PSHx: 15:21 Hysterectomy; Knee surgery; Appendectomy; Cholecystectomy; ca1 - Immunization history:: Sai and asi. - Social history:: Smoking status: Patient denies any tobacco usage or history of. - Family history:: not pertinent. Screenin:49 Abuse screen: Denies threats or abuse. Denies injuries from another. Nutritional tr6 screening: No deficits noted. Tuberculosis screening: No symptoms or risk factors identified. Fall Risk None identified. Assessment: 18:00 General: pt rolling around in bed, crying loudly, and clutching her abdomen. Pt states tr6 that she has not had diarrhea so she does not believe that this is a chrons flare up, but instead her gastroporesis. pt states that usually dilaudid works best for pain. MD informed. General: Appears distressed, uncomfortable, obese, Behavior is cooperative, crying, inappropriate for age. Pain: Complains of pain in c/o abdominal pain. pt states "I have gastroporesis". Neuro: No deficits noted. Cardiovascular: No deficits noted. Respiratory: No deficits noted. GI: Bowel sounds present X 4 quads. Abdomen is tender to palpation in lower abdomen Reports lower abdominal pain. : No deficits noted. EENT: No deficits noted. Derm: No deficits noted. Musculoskeletal: No deficits noted. 19:01 Reassessment: MD Skelton at bedside. Pt resting comfortably in bed. pt in no distress tr6 and reports that pain has greatly improved. Vital Signs: 15:18 BP 136 / 90; Pulse 91; Resp 15 S; Temp 97.6(TE); Pulse Ox 100% on R/A; Weight 93.89 kg ca1 (R); Height 5 ft. 7 in. (170.18 cm) (R); Pain 8/10; 18:57 Pulse 87; Resp 18; Pulse Ox 94% on R/A; tr6 19:30 Pulse 87; Resp 20; Pulse Ox 96% on R/A; kg 15:18 Body Mass Index 32.42 (93.89 kg, 170.18 cm) ca1 ED Course: 15:08 Patient arrived in ED. ds1 15:20 Triage completed. ca1 15:21 Arm band placed on right wrist. ca1 17:31 Barrington Skelton MD is Attending Physician. ma2 17:46 Citlali Gaitan, NAT is Primary Nurse. tr6 18:00 Inserted saline lock: 20 gauge in left antecubital area, using aseptic technique. Blood tr6 collected. 18:50 No provider procedures requiring assistance completed. tr6 19:02 Patient has correct armband on for positive identification. Bed in low position. Call tr6 light in reach. 19:31 IV discontinued, intact, bleeding controlled, No redness/swelling at site. Pressure kg dressing applied. Administered Medications: 17:58 Not Given (n/a): Zofran (Ondansetron) 4 mg IVP once; over 2 minutes ma2 18:18 Drug: NS 0.9% 1000 ml Route: IV; Rate: 1 bolus; Site: left antecubital; tr6 19:32 Follow up: Response: No adverse reaction; IV Status: Completed infusion; IV Intake: kg 1000ml 18:29 Drug: Pepcid (famotidine) 20 mg Route: IVP; Site: left antecubital; tr6 19:32 Follow up: Response: No adverse reaction; Marked relief of symptoms kg 18:29 Drug: Dilaudid (HYDROmorphone) 1 mg Route: IVP; Site: left antecubital; tr6 19:32 Follow up: Response: No adverse reaction; Marked relief of symptoms kg 18:29 Drug: Phenergan (promethazine) 25 mg Route: IVP; Site: left antecubital; tr6 19:34 Follow up: Response: No adverse reaction; Marked relief of symptoms kg 19:09 CANCELLED (Patient Refused): Insulin Regular Human 50 units IVP once ma2 19:17 Drug: Insulin Regular Human 5 units {Co-Signature: [email or web address] (Florencio Hunt RN).} Route: tr6 IVP; Site: left antecubital; 19:30 Follow up: Response: No adverse reaction kg Intake: 19:32 IV: 1000ml; Total: 1000ml. kg Outcome: 19:07 Discharge ordered by . ma2 19:31 Discharged to home ambulatory. kg 19:31 Condition: improved 19:31 Discharge instructions given to patient, Instructed on discharge instructions, follow up and referral plans. Demonstrated understanding of instructions, follow-up care, medications, Prescriptions given X 3. 19:34 Patient left the ED. kg Signatures: Consuelo Varela ds1 Barrington Skelton MD MD ma2 Katia Wan RN RN ca1 Citlali Gaitan RN RN tr6 Debbie Rodríguez kg Florencio Hunt RN [email or web address]
--- NOTE | 2020-08-13 19:08 | EDPHYS ---
Physician Documentation [facility] Name: Elly Clarke Age: 50 yrs Sex: Female : 1970 Arrival Date: 08/13/2020 Time: 15:08 Bed 16 Private MD: ED Physician Barrington Skelton HPI: 08/13 17:58 This 50 yrs old Female presents to ER via Ambulatory with complaints of ma2 Abdominal Pain, Leg Pain. 17:58 The complaints affect the abdomen. Onset: The symptoms/episode began/occurred ma2 gradually, 3 day(s) ago. Severity of symptoms: At their worst the symptoms were moderate, in the emergency department the symptoms are unchanged. The patient has experienced similar episodes in the past. has epigastric pain and similar to prior episodes of gastroperesis . 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 - Hysterectomy ca1 Historical: - Allergies: 15:21 Compazine (Seizures); ca1 15:21 Demerol (HEART RACING); ca1 15:21 (Hives); ca1 15:21 Morphine (RACING HEART); ca1 15:21 Claritin (insomnia); ca1 - Home Meds: 15:21 Ambien 10 mg Oral tab 1 tab once daily for Sleep-Onset Insomnia [Active]; butorphanol ca1 tartrate 10 mg/mL nasal spry 1 spray as needed for Migraine [Active]; clonazepam 1 mg Oral tab 1 tab 2 times per day [Active]; metformin 500 mg Oral tab 1 tab 2 times per day [Active]; tizanidine 2 mg Oral cap 2 caps twice a day [Active]; carvedilol Oral 1 tab 2 times per day [Active]; - PMHx: 15:21 Anxiety; Chrohns; insomnia; Hypertension; High Cholesterol; Gastroparesis; Dramatic ca1 migraine events; Diabetes - NIDDM; Chronic pain; Arthritis; Pancreatitis; Migraines; spinal stenosis; - PSHx: 15:21 Hysterectomy; Knee surgery; Appendectomy; Cholecystectomy; ca1 - Immunization history:: Sai and sai. - Social history:: Smoking status: Patient denies any tobacco usage or history of. - Family history:: not pertinent. ROS: 17:58 Constitutional: Negative for fever, chills, and weight loss. ma2 17:58 All other systems are negative. Exam: 17:58 Constitutional: This is a well developed, well nourished patient who is awake, alert, ma2 and in no acute distress. Chest/axilla: Normal chest wall appearance and motion. Nontender with no deformity. No lesions are appreciated. Cardiovascular: Regular rate and rhythm with a normal S1 and S2. No gallops, murmurs, or rubs. Normal PMI, no JVD. No pulse deficits. Respiratory: Lungs have equal breath sounds bilaterally, clear to auscultation and percussion. No rales, rhonchi or wheezes noted. No increased work of breathing, no retractions or nasal flaring. Abdomen/GI: Soft, non-tender, with normal bowel sounds. No distension or tympany. No guarding or rebound. No evidence of tenderness throughout. Skin: Warm, dry with normal turgor. Normal color with no rashes, no lesions, and no evidence of cellulitis. MS/ Extremity: Pulses equal, no cyanosis. Neurovascular intact. Full, normal range of motion. Neuro: Awake and alert, GCS 15, oriented to person, place, time, and situation. Cranial nerves II-XII grossly intact. Motor strength 5/5 in all extremities. Sensory grossly intact. Cerebellar exam normal. Normal gait. Vital Signs: 15:18 BP 136 / 90; Pulse 91; Resp 15 S; Temp 97.6(TE); Pulse Ox 100% on R/A; Weight 93.89 kg ca1 (R); Height 5 ft. 7 in. (170.18 cm) (R); Pain 8/10; 18:57 Pulse 87; Resp 18; Pulse Ox 94% on R/A; tr6 19:30 Pulse 87; Resp 20; Pulse Ox 96% on R/A; kg 15:18 Body Mass Index 32.42 (93.89 kg, 170.18 cm) ca1 MDM: 17:50 Patient medically screened. ma2 19:07 Differential diagnosis: contusion, abrasion, tendonitis. Data reviewed: vital signs, ma2 nurses notes. Counseling: I had a detailed discussion with the patient and/or guardian regarding: the historical points, exam findings, and any diagnostic results supporting the discharge/admit diagnosis, the presence of at least one elevated blood pressure reading (>120/80) during this emergency department visit. Response to treatment: the patient's symptoms have markedly improved after treatment. 08/13 17:30 Order name: Basic Metabolic Panel; Complete Time: 18:59 ma2 08/13 17:30 Order name: CBC with Diff ma2 08/13 17:30 Order name: Hepatic Function; Complete Time: 18:59 ma2 08/13 17:30 Order name: Lipase; Complete Time: 18:59 ma2 08/13 18:13 Order name: Urine Dipstick-Ancillary; Complete Time: 18:59 EDMS 08/13 17:30 Order name: IV Saline Lock; Complete Time: 18:18 ma2 08/13 17:30 Order name: Labs collected and sent; Complete Time: 18:18 ma2 08/13 17:30 Order name: Urine Dipstick-Ancillary (obtain specimen); Complete Time: 18:18 ma2 Administered Medications: 17:58 Not Given (n/a): Zofran (Ondansetron) 4 mg IVP once; over 2 minutes ma2 18:18 Drug: NS 0.9% 1000 ml Route: IV; Rate: 1 bolus; Site: left antecubital; tr6 19:32 Follow up: Response: No adverse reaction; IV Status: Completed infusion; IV Intake: kg 1000ml 18:29 Drug: Pepcid (famotidine) 20 mg Route: IVP; Site: left antecubital; tr6 19:32 Follow up: Response: No adverse reaction; Marked relief of symptoms kg 18:29 Drug: Dilaudid (HYDROmorphone) 1 mg Route: IVP; Site: left antecubital; tr6 19:32 Follow up: Response: No adverse reaction; Marked relief of symptoms kg 18:29 Drug: Phenergan (promethazine) 25 mg Route: IVP; Site: left antecubital; tr6 19:34 Follow up: Response: No adverse reaction; Marked relief of symptoms kg 19:09 CANCELLED (Patient Refused): Insulin Regular Human 50 units IVP once ma2 19:17 Drug: Insulin Regular Human 5 units {Co-Signature: [email or web address] (Florencio uHnt RN).} Route: tr6 IVP; Site: left antecubital; 19:30 Follow up: Response: No adverse reaction kg Disposition: 08/13/20 19:07 Discharged to Home. Impression: Gastroparesis. - Condition is Stable. - Discharge Instructions: Gastroparesis. - Prescriptions for promethazine 25 mg Oral Tablet - take 1 tablet by ORAL route every 6 hours As needed; 20 tablet. buspirone 5 mg Oral tablet - take 1 tablet by ORAL route 3 times per day; 60 tablet. Diclofenac Sodium 75 mg Oral Tablet Sustained Release - take 1 tablet by ORAL route 2 times per day; 30 tablet. - Medication Reconciliation Form, Thank You Letter, Antibiotic Education, Prescription Opioid Use form. - Follow up: Private Physician; When: Tomorrow; Reason: Continuance of care. Signatures: Dispatcher [employer] EDMS Barrington Skelton MD MD ma2 Katia Wan RN RN ca1 Citlali Gaitan RN RN tr6 Debbie Rodríguez kg, RN jm8 Corrections: (The following items were deleted from the chart) 19:09 19:06 Insulin Regular Human 50 units IVP once ordered. tx2 [facility] 19:34 19:07 08/13/2020 19:07 Discharged to Home. Impression: Gastroparesis. Condition is kg Stable. Discharge Instructions: Gastroparesis. Prescriptions for promethazine 25 mg Oral Tablet - take 1 tablet by ORAL route every 6 hours As needed; 20 tablet. and Forms are Medication Reconciliation Form, Thank You Letter, Antibiotic Education, Prescription Opioid Use. Follow up: Private Physician; When: Tomorrow; Reason: Continuance of care. tx2
[2020-08-13] MEDS ORDERED: INSULIN -REGULAR HUMAN 50 UNIT/0.5 ML ML ONE (19:34)
[2020-08-13 20:34] VITALS: BP 136/90; TEMP 97.6
[2020-08-13 20:35] VITALS: O2SAT 96
== END 2020-08-13 19:34 | disposition home or self-care (01) ==
LOC: ER 15:05
DX: E11.43 Type 2 diabetes mellitus with diabetic autonomic (poly)neuropathy (principal); K31.84 Gastroparesis; F41.9 Anxiety disorder, unspecified; K50.90 Crohn's disease, unspecified, without complications; G47.00 Insomnia, unspecified; I10 Essential (primary) hypertension; E78.00 Pure hypercholesterolemia, unspecified; G89.29 Other chronic pain; M19.90 Unspecified osteoarthritis, unspecified site
CPT/HCPCS: 36415; 80048; 80076; 81003; 83690; 85025; 96361; 96374; 96375; 99284; J1170; J2405; J2550; J7030

== ENCOUNTER 2020-10-06 16:22 | Emergency (ER) | payer OTHER ==
--- OUTSIDE RECORDS SUMMARY | 2020-10-06 16:25 | XMS REPORT | Continuity of Care Document ---
:1970 Author Organization [facility] t Address [address] [place] [address] Care Team Providers Name Role Phone Bina SOUZA [place] Primary Care Physician Eugenia GENETIC PHYSICIAN, F Attending Clinician Doctor Unassigned, Name Attending [...] Date Quantity Comments Source Sex Assigned At [facility] Tobacco use and 2017-08-28 2017-08-28 Never used [facility] - exposure 00:00:00 00:00:00 [facility] Smoking Status Start Date Stop Date Source Never smoker [facility] Medications Ordered Filled Start Stop [...] Clinicians Facility Department ID 2020-08-05 2020-08-05 Emergency DEV Bello [id number] 20:44:00 23:55:00 Gopi Suarez [id number] [place] [id number] [place] [id number] 2020-07-22 2020-07-22 [facility] [id number] 17:17:00 20:14:00 Gopi Suarez [id number] [place] 4.2.7.2.686 [place] [id number] 2020-06-17 2020-06-17 Orders Doctor IQRA [id number] 00:00:00 00:00:00 Only Unassigned, GREGORY [id number] [place] [facility] 4.2.7.2.686 [id number] 2020-05-19 2020-05-19 Emergency [facility] [id number] 15:45:00 18:07:00 Pastora Suarez [id number] [place] 4.2.7.2.686 [place] [id number] 2019-08-21 2019-08-22 Emergency [facility] [id number] 23:48:04 02:26:00 Jose Cruz Suarez [id number] [place] 4.2.7.2.686 [place] [id number] 2019-08-06 2019-08-06 Telephone IQRA Barragan [id number] 00:00:00 00:00:00 Apoorva JENKINS [id number] [facility] 4.2.7.2.686 [id number] 2019-08-06 2019-08-06 Telephone IQRA Box [id number] 00:00:00 00:00:00 Jinny JENKINS [id number] [facility] 4.2.7.2.686 [id number] 2019-08-05 2019-08-05 Telephone IQRA Box [id number] 00:00:00 00:00:00 Jinny JENKINS [id number] [facility] 4.2.7.2.686 [id number] Results Test Description Test Time Test Comments Results Result Comments Source POCT-GLUCOSE METER 2017-09-01 17:07:00 Test Item Value Reference Range Interpretation Comme nts POC-GLUCOSE METER ([facility]) (test 298 mg/dL 70-110 [address]) [facility] 7703 0 POCT-GLUCOSE [id number] 12:11:00 Test Item Value Reference Range Interpretation Comments POC-GLUCOSE METER 331 mg/dL 70-110 H Notified R Devante SOUZA/TESTED ([facility]) (test code = AT [address] 1538) [facility] 7703 0 POCT-GLUCOSE [id number] 10:55:00 Test Item Value Reference Range Interpretation Comments POC-GLUCOSE METER 365 mg/dL 70-110 H TESTED AT [place] [address] ([facility]) (test code = ELIZABETH Flynn [facility] 1538) [address] POCT-GLUCOSE [id number] 08:44:00 Test Item Value Reference Range Interpretation Comments POC-GLUCOSE METER 291 mg/dL 70-110 H TESTED AT [place] [address] ([facility]) (test code = ELIZABETH Flynn [facility] 1538) [address] LIPID [id number] 05:56:00 Test Item Value Reference Range Interpretation Comments TRIGLYCERIDES ([facility]) (test code = 279 mg/dL 540) CHOLESTEROL ([facility]) (test code = 119 mg/dL 631) HDL CHOLESTEROL ([facility]) (test code 22 mg/dL = 976) LDL CHOLESTEROL CALCULATED ([facility]) 41 mg/dL (test code = 633) Triglyceride Reference Range: Low Risk <150 Borderline 150-199 High Risk 200-499 Very High Risk >=500Cholesterol Reference Range: Low Risk <200 Borderline 200-239 High Risk >240HDL Cholesterol Reference Range: Low Risk >=60 High Risk <40LDL Cholesterol Reference Range: Optimal <100 Near Optimal 100-129 Borderline 130-159 High 160-189 Very High >=190POCT-GLUCOSE [id number] 21:50:00 Test Item Value Reference Range Interpretation Comments POC-GLUCOSE METER 318 mg/dL 70-110 H TESTED AT [facility] 6720 ([facility]) (test code = ELIZABETH [place] 1538) [address] POCT-GLUCOSE [id number] 18:04:00 Test Item Value Reference Range Interpretation Comments POC-GLUCOSE METER 238 mg/dL 70-110 H TESTED AT [facility] 67[address] ([facility]) (test code = ELIZABETH [place] 1538) [address] POCT-GLUCOSE [id number] 12:22:00 Test Item Value Reference Range Interpretation Comments POC-GLUCOSE METER 290 mg/dL 70-110 H TESTED AT [facility] 67 ([facility]) (test code = ELIZABETH [place] 1538) [address] POCT-GLUCOSE [id number] 09:20:00 Test Item Value Reference Range Interpretation Comments POC-GLUCOSE METER 293 mg/dL 70-110 H TESTED AT [place] [address] ([facility]) (test code = ELIZABETH [place] 1538) [address] POCT-GLUCOSE [id number] 21:00:00 Test Item Value Reference Range Interpretation Comments POC-GLUCOSE METER 225 mg/dL 70-110 H TESTED AT [place] [address] ([facility]) (test code = ELIZABETH Flynn [place] 1538) [address] CT, CAROTID, [id number] 18:01:00FINAL REPORT CT angiogram of the upper [...] Petersen Verified Date/Time: 08/30/2017 18:01:31 Reading Location: [address] Neuro Reading Room , CTANG [id number] 18:01:00FINAL REPORT CT angiogram of the upper [...] Petersen Verified Date/Time: 08/30/2017 18:01:31 Reading Location: [address] Neuro Reading Room -GLUCOSE [id number] 17:21:00 Test Item Value Reference Range Interpretation Comments POC-GLUCOSE METER 256 mg/dL 70-110 H TESTED AT [facility] 6720 (BEAKER) (test code = ELIZABETH Flynn [place] 1538) [address] POCT-GLUCOSE [id number] 12:00:00 Test Item Value Reference Range Interpretation Comments POC-GLUCOSE METER 289 mg/dL 70-110 H TESTED AT [facility] 6720 (BEAKER) (test code = [facility] Rina [facility] 1538) [address] BASIC METABOLIC [id number] 10:12:00 Test Item Value Reference Range Interpretation [...] NOT APPLICABLE FOR DIALYSIS PATIEN TS. POCT-GLUCOSE [id number] 08:42:00 Test Item Value Reference Range Interpretation Comments POC-GLUCOSE METER 259 mg/dL 70-110 H TESTED AT [facility] 6720 (BEAKER) (test code = [facility] Rina [facility] 1538) [address] TROPONIN [id number] 06:14:00 Test Item Value Reference Range Interpretation [...] = 2801) RAD, CHEST, 1 VIEW, NON [id number] 04:23:00Reason for exam:->chest painShould this be performed at the bedside?->YesFINAL REPORT Comparison examination: None No pneumothorax, focal pulmonary co nsolidation, or significant pleural effusion. Normal cardiomediastinal contours. Normal skeleton and soft tissues. Impression: No acute abnormality. Signed: Ervin Jenkins Verified Date/Time: 08/30/2017 04:23:04 Reading Location: [address] Reading Room POCT-GLUCOSE [id number] 21:18:00 Test Item Value Reference Range Interpretation Comments POC-GLUCOSE METER 151 mg/dL 70-110 H TESTED AT [facility] 67 ([facility]) (test code = ELIZABETH Flynn [facility] 1538) [address] POCT-GLUCOSE [id number] 17:59:00 Test Item Value Reference Range Interpretation Comments POC-GLUCOSE METER 146 mg/dL 70-110 H TESTED AT [facility] 6720 ([facility]) (test code = [facility] 1538) [address] HEMOGLOBIN [id number] 15:56:00 Test Item Value Reference Range Interpretation Comments HEMOGLOBIN A1C ([facility]) (test code = 13.7 % 4.3-6.1 H 368) CT, BRAIN, WITHOUT [id number] 14:52:00FINAL REPORT CT head without contrast. Comparisons: [...] Petersen Verified Date/Time: 08/29/2017 14:52:09 Reading Location: [facility] C013V Neuro Reading Room POCT-GLUCOSE [id number] 14:17:00 Test Item Value Reference Range Interpretation Comments POC-GLUCOSE METER 423 mg/dL 70-110 Notified Rina Low MD/TESTED (JESSICA) (test code = AT [facility] 67[address] [facility] 1538) [facility] 7703 0 VITAMIN [id number] 06:48:00 Test Item Value Reference Range Interpretation Comments VITAMIN B12 (BEAKER) (test code = 300 pg/mL 213-816 774) TSH/FREE T4 IF [id number] 06:48:00 Test Item Value Reference Range Interpretation Comments THYROID STIMULATING HORMONE 1.55 uIU/mL 0.35-4.94 (BEAKER) (test code = 772) CBC W/PLT COUNT & AUTO [id number] 05:10:00 Test Item Value Reference Range Interpretation [...] (BEAKER) (test code = 2801) URINALYSIS W/ [id number] 23:32:00 Test Item Value Reference Range Interpretation [...] Occasional SOURCE(BEAKER) (test code = 2795) TROPONIN [id number] 23:12:00 Test Item Value Reference Range Interpretation [...] acute neurological disease, and persistent tachyarrhythmia.BASIC METABOLIC [id number] 23:05:00 Test Item Value Reference Range Interpretation [...] NOT APPLICABLE FOR DIALYSIS PATIEN TS. POCT-GLUCOSE [id number] 20:49:00 Test Item Value Reference Range Interpretation Comments POC-GLUCOSE METER 376 mg/dL 70-110 H Notified R Devante SOUZA/TESTED (JESSICA) (test code = AT [facility] [address]) [facility] 8683 0
[2020-10-06 17:57] LABS: Absolute Lymphocytes (CBC) 2.5 K/uL (0.7-4.9); Basophils % 0.6 % (0-1.3); Hematocrit 42.6 % (36.0-45.0); Lymphocytes % 34.8 % (15.3-44.8); RBC Red Blood Cell Count 5.34 M/uL (3.86-4.86)
[2020-10-06] MEDS ORDERED: PROMETHAZINE INJ 25 MG/ML AMP ONE ×2 (18:10→20:52)
[2020-10-06] MEDS ORDERED: HYDROMORPHONE HCL 1 MG/ML INJ ONE ×2 (18:11→19:38)
[2020-10-06] MEDS ORDERED: NA CHLORIDE 0.9% 1,000 ML ONE (18:11)
[2020-10-06 18:18] LABS: ALT/SGPT 24 U/L (12-78); AST/SGOT 12 U/L (15-37); Albumin 3.7 g/dL (3.4-5.0); Alkaline Phosphatase 108 U/L (45-117); BUN Blood Urea Nitrogen 8 mg/dL (7-18); Bicarbonate 27 mmol/L (21-32); Bilirubin Direct < 0.1 mg/dL (0-0.2); Bilirubin Total 0.3 mg/dL (0.2-1.0); Glucose Level 318 mg/dL (74-106); Lipase 119 U/L (73-393); Potassium 3.7 mmol/L (3.5-5.1); Protein, Total 7.8 g/dL (6.4-8.2); Sodium Level 137 mmol/L (136-145)
[2020-10-06] MEDS ORDERED: METRONIDAZOLE 500mg IVPB 500 MG/100 ML BAG IV ONE (20:30)
[2020-10-06] MEDS ORDERED: CIPROFLOXACIN HCL 500 MG TAB ONE (20:30)
--- NOTE | 2020-10-06 20:56 | EDPHYS ---
Physician Documentation [facility] Name: Elly Clarke Age: 50 yrs Sex: Female : 1970 Arrival Date: 10/06/2020 Time: 16:25 Bed 19 Private MD: ED Physician Wayne Saavedra HPI: 10/06 16:59 This 50 yrs old Female presents to ER via Ambulatory with complaints of pm1 Abdominal Pain, Nausea/Vomiting/Diarrhea, Headache. 16:59 The patient presents with abdominal pain in the lower abdomen. Onset: The pm1 symptoms/episode began/occurred yesterday. The symptoms do not radiate. Associated signs and symptoms: Pertinent positives: nausea, vomiting, and diarrhea, Pertinent negatives: dysuria, fever. The symptoms are described as crampy. Modifying factors: The symptoms are alleviated by nothing, the symptoms are aggravated by nothing. Severity of pain: in the emergency department the pain is unchanged. The patient has experienced similar episodes in the past, today's symptoms are similar, to previous Crohns' flare up. The patient has not recently seen a physician. 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 - Social history:: Smoking status: Patient denies any tobacco usage or history of. ROS: 16:59 Constitutional: Negative for fever, chills, and weight loss, Cardiovascular: Negative pm1 for chest pain, palpitations, and edema, Respiratory: Negative for shortness of breath, cough, wheezing, and pleuritic chest pain. 16:59 Back: Negative for injury and pain, : Negative for injury, bleeding, discharge, and swelling, MS/Extremity: Negative for injury and deformity, Skin: Negative for injury, rash, and discoloration, Neuro: Negative for headache, weakness, numbness, tingling, and seizure. 16:59 Abdomen/GI: Positive for abdominal pain, nausea, vomiting, and diarrhea, Negative for constipation. 16:59 All other systems are negative. Exam: 16:59 Constitutional: This is a well developed, well nourished patient who is awake, alert, pm1 and in no acute distress. Head/Face: Normocephalic, atraumatic. 16:59 Back: No spinal tenderness. No costovertebral tenderness. Full range of motion. Skin: Warm, dry with normal turgor. Normal color with no rashes, no lesions, and no evidence of cellulitis. MS/ Extremity: Pulses equal, no cyanosis. Neurovascular intact. Full, normal range of motion. 16:59 Eyes: Periorbital structures: appear normal, Extraocular movements: no acute changes, Conjunctiva: no acute changes, no injection, Sclera: no acute changes, icterus, is not appreciated. 16:59 ENT: Mouth: Lips: normal, Oral mucosa: normal, pink and intact, moist. 16:59 Cardiovascular: Exam negative for acute changes, Rate: normal, Rhythm: regular, Pulses: no pulse deficits are appreciated. 16:59 Respiratory: Exam negative for acute changes, respiratory distress, shortness of breath. 16:59 Abdomen/GI: Exam negative for acute changes, Inspection: abdomen appears normal, Palpation: abdomen is soft and non-tender, in all quadrants. 16:59 Neuro: Exam negative for acute changes, Orientation: is normal, Mentation: is normal, Motor: is normal, moves all fours. Vital Signs: 16:38 BP 154 / 109; Pulse 114; Resp 16 S; Temp 97.9; Pulse Ox 100% on R/A; Weight 96.16 kg ca1 (R); Height 5 ft. 7 in. (170.18 cm) (R); Pain 8/10; 17:38 BP 138 / 98; Pulse 101; Resp 19; Pulse Ox 96% ; rb3 18:30 BP 157 / 97; Pulse 104; Resp 17; Pulse Ox 96% ; rb3 19:15 BP 151 / 70; Pulse 106; Resp 18; Pulse Ox 98% ; Pain 10/10; rr5 20:15 BP 149 / 89; Pulse 99; Resp 18; Pulse Ox 97% ; Pain 10/10; rr5 21:17 BP 145 / 70; Pulse 95; Resp 16; Pulse Ox 98% ; Pain 4/10; rr5 16:38 Body Mass Index 33.20 (96.16 kg, 170.18 cm) ca1 MDM: 16:53 Patient medically screened. pm1 19:36 Data reviewed: vital signs. Data interpreted: Pulse oximetry: on room air is 96 %. pm1 Interpretation: normal. 20:55 Counseling: I had a detailed discussion with the patient and/or guardian regarding: the pm1 historical points, exam findings, and any diagnostic results supporting the discharge/admit diagnosis, lab results, the need for outpatient follow up, to return to the emergency department if symptoms worsen or persist or if there are any questions or concerns that arise at home. 21:02 ED course: PMPaware reviewed. Patient received pain medicine from pain management in pm1 August 2020, therefore I will not give narcotic pain prescription. 10/06 16:55 Order name: Basic Metabolic Panel; Complete Time: 18:25 pm10/06 16:55 Order name: CBC with Diff; Complete Time: 18:25 pm10/06 16:55 Order name: Hepatic Function; Complete Time: 18:25 pm10/06 16:55 Order name: Lipase; Complete Time: 18:25 pm10/06 16:55 Order name: IV Saline Lock; Complete Time: 17:59 pm1 10/06 16:55 Order name: Labs collected and sent; Complete Time: 17:59 pm1 Administered Medications: 17:58 Drug: NS 0.9% 1000 ml Route: IV; Rate: 1000 ml; Site: left upper arm; rb3 20:00 Follow up: Response: No adverse reaction; IV Status: Completed infusion; IV Intake: rr5 1000ml 17:58 Drug: Dilaudid (HYDROmorphone) 1 mg Route: IVP; Site: left upper arm; rb3 18:12 Follow up: Response: No adverse reaction; Pain is decreased rb3 17:58 Drug: Phenergan (promethazine) 12.5 mg Route: IVP; Site: left upper arm; rb3 18:12 Follow up: Response: No adverse reaction; Nausea is decreased rb3 19:19 Drug: Dilaudid (HYDROmorphone) 1 mg {Note: rass 0.} Route: IVP; Site: left upper arm; rr5 20:20 Follow up: Response: No adverse reaction; Pain is decreased; RASS: Alert and Calm (0) rr5 20:29 Drug: Flagyl (metroNIDAZOLE) 500 mg Volume: 100 ml; Route: IVPB; Rate: 200 ml/hr; rr5 Infused Over: 30 mins; Site: left upper arm; 21:05 Follow up: Response: No adverse reaction; IV Status: Completed infusion; IV Intake: rr5 100ml 20:29 Drug: Cipro (ciprofloxacin) 500 mg Route: PO; rr5 21:14 Follow up: Response: No adverse reaction rr5 20:37 Drug: Phenergan (promethazine) 12.5 mg Route: IVP; Site: left antecubital; rr5 21:14 Follow up: Response: No adverse reaction rr5 Disposition Summary: 10/06/20 20:56 Discharge Ordered Location: Home pm1 Problem: new pm1 Symptoms: have improved pm1 Condition: Stable pm1 Diagnosis - Abdominal pain, unspecified pm1 Followup: pm1 - With: Emergency Department - When: As needed - Reason: Worsening of condition Followup: pm1 - With: Private Physician - When: 2 - 3 days - Reason: Recheck today's complaints, Continuance of care, Re-evaluation by your physician Discharge Instructions: - Discharge Summary Sheet pm1 - Abdominal Pain, Adult pm1 - Crohn's Disease pm1 Forms: - Medication Reconciliation Form pm1 - Thank You Letter pm1 - Antibiotic Education pm1 - Prescription Opioid Use pm1 Prescriptions: - Flagyl 500 mg Oral Tablet - take 1 tablet by ORAL route every 8 hours for 10 days; 30 tablet; Refills: 0, pm1 Product Selection Permitted - Cipro 500 mg Oral Tablet - take 1 tablet by ORAL route every 12 hours for 10 days; 20 tablet; Refills: 0, pm1 Product Selection Permitted - promethazine 25 mg Oral Tablet - take 1 tablet by ORAL route every 6 hours As needed; 20 tablet; Refills: 0, pm1 Product Selection Permitted - Diclofenac Sodium 75 mg Oral tablet,delayed release (DR/EC) - take 1 tablet by ORAL route 2 times per day As needed; 30 tablet; Refills: 0, pm1 Product Selection Permitted Signatures: Dispatcher [employer] EDJose A Mckay NP NATURAL GAS PLANT SUPERVISOR pm1 Bebeto Cid, RN RN rr5 Katia Wan, RN RN ca1 Hortensia Ryder, RN RN rb3
--- NOTE | 2020-10-06 20:56 | ER ---
Nurse's Notes [facility] Name: Elly Clarke Age: 50 yrs Sex: Female : 1970 Arrival Date: 10/06/2020 Time: 16:25 Bed 19 Private MD: Diagnosis: Abdominal pain, unspecified Presentation: 10/06 16:38 Chief complaint: Patient states: Hx of Crohn's. Feel like I have a flare up since ca1 yesterday. Lower abdominal pain, nausea and diarrhe. Coronavirus screen: Client denies travel out of the [place] in the last 14 days. diarrhea, nausea, Client presents with at least one sign or symptom that may indicate coronavirus-19. Standard/surgical mask placed on the client. Provider contacted for isolation considerations. Ebola Screen: Patient negative for fever greater than or equal to 101.5 degrees Fahrenheit, and additional compatible Ebola Virus Disease symptoms Patient denies exposure to infectious person. Patient denies travel to an Ebola-affected area in the 21 days before illness onset. No symptoms or risks identified at this time. Initial Sepsis Screen: Does the patient meet any 2 criteria? No. Patient's initial sepsis screen is negative. Does the patient have a suspected source of infection? No. Patient's initial sepsis screen is negative. Risk Assessment: Do you want to hurt yourself or someone else? Patient reports no desire to harm self or others. Onset of symptoms was October 06, 2020. 16:38 Method Of Arrival: Ambulatory ca1 16:38 Acuity: HANNAH 2 ca1 DELIVERY REP: 16:40 LMP N/A - Hysterectomy ca1 Historical: - Allergies: 16:40 Claritin (insomnia); ca1 16:40 Compazine (Seizures); ca1 16:40 Demerol (HEART RACING); ca1 16:40 (Hives); ca1 16:40 Morphine (RACING HEART); ca1 - PMHx: 16:40 Anxiety; Arthritis; Chrohns; Chronic pain; Diabetes - NIDDM; Dramatic migraine events; ca1 Gastroparesis; High Cholesterol; Hypertension; insomnia; Migraines; Pancreatitis; spinal stenosis; - Immunization history:: Client reports receiving the 1st dose of the Covid vaccine, larissa and larissa. - Social history:: Smoking status: Patient denies any tobacco usage or history of. Screenin:45 Abuse screen: Denies threats or abuse. Nutritional screening: No deficits noted. rb3 Tuberculosis screening: No symptoms or risk factors identified. Fall Risk None identified. Assessment: 16:45 General: Appears uncomfortable, Behavior is calm, cooperative. Pain: Complains of pain rb3 in abdomen Pain currently is 9 out of 10 on a pain scale. Neuro: Level of Consciousness is awake, alert, obeys commands, Oriented to person, place, time, situation. Cardiovascular: Patient's skin is warm and dry. Respiratory: Airway is patent Respiratory effort is even, unlabored, Respiratory pattern is regular, symmetrical. GI: Abd is soft Abdomen is tender to palpation in right lower quadrant and left lower quadrant Reports nausea. : No signs and/or symptoms were reported regarding the genitourinary system. 17:44 Reassessment: Patient appears in no apparent distress at this time. No changes from rb3 previously documented assessment. 18:39 Reassessment: Patient appears in no apparent distress at this time. Patient and/or rb3 family updated on plan of care and expected duration. Pain level reassessed. Patient is alert, oriented x 3, equal unlabored respirations, skin warm/dry/pink. 19:15 Reassessment: Patient appears in no apparent distress at this time. Patient is alert, rr5 oriented x 3, equal unlabored respirations, skin warm/dry/pink. complaints of abdominal pain, ED provider aware with order made and carriedout. 20:15 Reassessment: Patient appears in no apparent distress at this time. Patient is alert, rr5 oriented x 3, equal unlabored respirations, skin warm/dry/pink. 21:17 Reassessment: Patient appears in no apparent distress at this time. Patient is alert, rr5 oriented x 3, equal unlabored respirations, skin warm/dry/pink. discharge instruction given and explained without complaints made. Vital Signs: 16:38 BP 154 / 109; Pulse 114; Resp 16 S; Temp 97.9; Pulse Ox 100% on R/A; Weight 96.16 kg ca1 (R); Height 5 ft. 7 in. (170.18 cm) (R); Pain 8/10; 17:38 BP 138 / 98; Pulse 101; Resp 19; Pulse Ox 96% ; rb3 18:30 BP 157 / 97; Pulse 104; Resp 17; Pulse Ox 96% ; rb3 19:15 BP 151 / 70; Pulse 106; Resp 18; Pulse Ox 98% ; Pain 10/10; rr5 20:15 BP 149 / 89; Pulse 99; Resp 18; Pulse Ox 97% ; Pain 10/10; rr5 21:17 BP 145 / 70; Pulse 95; Resp 16; Pulse Ox 98% ; Pain 4/10; rr5 16:38 Body Mass Index 33.20 (96.16 kg, 170.18 cm) ca1 ED Course: 16:25 Patient arrived in ED. bp1 16:40 Triage completed. ca1 16:40 Arm band placed on right wrist. ca1 16:42 Jose A Leung NP is PHCP. pm1 16:42 Wayne Saavedra MD is Attending Physician. pm1 16:45 Patient has correct armband on for positive identification. Bed in low position. Call rb3 light in reach. Side rails up X 1. Pulse ox on. NIBP on. Warm blanket given. 16:47 Hortensia Ryder, RN is Primary Nurse. rb3 17:36 Missed attempt(s): 20 gauge in left antecubital area. Bleeding controlled, band aid rb3 applied, catheter tip intact. 17:45 Inserted saline lock: 22 gauge in left upper arm, using aseptic technique. Blood rb3 collected. 19:39 Primary Nurse role handed off by Hortensia Ryder, RN tt3 19:50 Bebeto Cid, NAT is Primary Nurse. rr5 21:18 No provider procedures requiring assistance completed. IV discontinued, intact, rr5 bleeding controlled, No redness/swelling at site. Pressure dressing applied. Administered Medications: 17:58 Drug: NS 0.9% 1000 ml Route: IV; Rate: 1000 ml; Site: left upper arm; rb3 20:00 Follow up: Response: No adverse reaction; IV Status: Completed infusion; IV Intake: rr5 1000ml 17:58 Drug: Dilaudid (HYDROmorphone) 1 mg Route: IVP; Site: left upper arm; rb3 18:12 Follow up: Response: No adverse reaction; Pain is decreased rb3 17:58 Drug: Phenergan (promethazine) 12.5 mg Route: IVP; Site: left upper arm; rb3 18:12 Follow up: Response: No adverse reaction; Nausea is decreased rb3 19:19 Drug: Dilaudid (HYDROmorphone) 1 mg {Note: rass 0.} Route: IVP; Site: left upper arm; rr5 20:20 Follow up: Response: No adverse reaction; Pain is decreased; RASS: Alert and Calm (0) rr5 20:29 Drug: Flagyl (metroNIDAZOLE) 500 mg Volume: 100 ml; Route: IVPB; Rate: 200 ml/hr; rr5 Infused Over: 30 mins; Site: left upper arm; 21:05 Follow up: Response: No adverse reaction; IV Status: Completed infusion; IV Intake: rr5 100ml 20:29 Drug: Cipro (ciprofloxacin) 500 mg Route: PO; rr5 21:14 Follow up: Response: No adverse reaction rr5 20:37 Drug: Phenergan (promethazine) 12.5 mg Route: IVP; Site: left antecubital; rr5 21:14 Follow up: Response: No adverse reaction rr5 Intake: 20:00 IV: 1000ml; Total: 1000ml. rr5 21:05 IV: 100ml; Total: 1100ml. rr5 Outcome: 20:56 Discharge ordered by . pm1 21:18 Discharged to home ambulatory. rr5 21:18 Condition: stable 21:18 Discharge instructions given to patient, Instructed on discharge instructions, follow up and referral plans. medication usage, Demonstrated understanding of instructions, follow-up care, medications, Prescriptions given X 4. 21:18 Patient left the ED. rr5 Signatures: Jose A Leung NP FOOTBALL PAD REPAIRER pm1 Bebeto Cid RN RN rr5 Katia Wan RN RN ca1 Bree Wilburn Tyler tt3 Hortensia Ryder RN RN rb3
[2020-10-06 21:36] VITALS: TEMP 97.9
[2020-10-06 21:50] VITALS: BP 145/70; O2SAT 98
== END 2020-10-06 21:18 | disposition home or self-care (01) ==
LOC: ER 16:22
DX: R10.30 Lower abdominal pain, unspecified (principal); R11.2 Nausea with vomiting, unspecified; I10 Essential (primary) hypertension; Z88.5 Allergy status to narcotic agent; Z88.8 Allergy status to other drugs, medicaments and biological substances
CPT/HCPCS: 85025; 80048; 36415; 80076; 83690; 99284; J2550 ×2; J1170 ×2; J7030

== ENCOUNTER 2020-10-09 12:41 | Emergency (ER) | payer OTHER ==
--- OUTSIDE RECORDS SUMMARY | 2020-10-09 12:45 | XMS REPORT | Continuity of Care Document ---
:1970 Author Organization [facility] t Address [address] [place] [address] Care Team Providers Name Role Phone Bina SOUZA [place] Primary Care Physician Eugenia ANTHROPOLOGICAL LINGUIST, F Attending Clinician Doctor Unassigned, Name Attending [...] Date Quantity Comments Source Sex Assigned At [facility] Tobacco use and 2017-08-28 2017-08-28 Never used [facility] - exposure 00:00:00 00:00:00 [facility] Smoking Status Start Date Stop Date Source Never smoker [facility] Medications Ordered Filled Start Stop Current [...] 2020-08-05 2020-08-05 Emergency DEV Bello [id number] 20:44:00 23:55:00 Gopi Suarez [id number] [place] 4.2.7.2.686 [place] [id number] 084 2020-07-22 2020-07-22 [facility] [id number] 17:17:00 20:14:00 Gopi Suarez [id number] [place] 4.2.7.2.686 [place] [id number] 084 2020-06-17 2020-06-17 Orders Doctor IQRA [id number] 00:00:00 00:00:00 Only Unassigned, GREGORY 350.1.13.10 [place] [facility] 4.2.7.2.686 [id number] 2020-05-19 2020-05-19 Emergency [facility] [id number] 15:45:00 18:07:00 Pastora Suarez [id number] [place] 4.2.7.2.686 [place] [id number] 084 2019-08-21 2019-08-22 Emergency [facility] [id number] 23:48:04 02:26:00 Jose Cruz Suarez 350.1.13.10 [place] 4.2.7.2.686 [place] [phone] 084 2019-08-06 2019-08-06 Telephone IQRA Barragan [id number] 00:00:00 00:00:00 Apoorva JENKINS 350.1.13.10 [facility] 4.2.7.2.686 [id number] 2019-08-06 2019-08-06 Telephone IQRA Box [id number] 00:00:00 00:00:00 Jinny JENKINS 350.1.13.10 [facility] 4.2.7.2.686 [id number] 2019-08-05 2019-08-05 Telephone IQRA Box [id number] 00:00:00 00:00:00 Jinny JENKINS 350.1.13.10 [facility] 4.2.7.2.686 [id number] [id number] Results Test Description Test Time Test Comments Results Result Comments Source POCT-GLUCOSE METER 2017-09-01 17:07:00 Test Item Value Reference Range Interpretation Comme nts POC-GLUCOSE METER ([facility]) (test 298 mg/dL 70-110 [address]) [facility] 7[address] POCT-GLUCOSE [id number] 12:11:00 Test Item Value Reference Range Interpretation Comments POC-GLUCOSE METER 331 mg/dL 70-110 H Notified R Devante SOUZA/TESTED ([facility]) (test code = AT [address] 1538) [facility] 7[address] 0 POCT-GLUCOSE [id number] 10:55:00 Test Item Value Reference Range Interpretation Comments POC-GLUCOSE METER 365 mg/dL 70-110 H TESTED AT [place] [address] ([facility]) (test code = ELIZABETH Flynn [facility] 1538) [id number] POCT-GLUCOSE [id number] 08:44:00 Test Item Value Reference Range Interpretation Comments POC-GLUCOSE METER 291 mg/dL 70-110 H TESTED AT [place] [address] ([facility]) (test code = ELIZABETH Flynn [facility] 1538) [address] LIPID [id number] 05:56:00 Test Item Value Reference Range Interpretation Comments TRIGLYCERIDES ([facility]) (test code = 279 mg/dL 540) CHOLESTEROL ([facility]) (test code = 119 mg/dL 631) HDL CHOLESTEROL ([facility]) (test code 22 mg/dL = 976) LDL CHOLESTEROL CALCULATED ([facility]) 41 mg/dL (test code = 633) Triglyceride Reference Range: Low Risk <150 Borderline 150-199 High Risk 200-499 Very High Risk >=500Cholesterol Reference Range: Low Risk <200 Borderline 200-239 High Risk >240HDL Cholesterol Reference Range: Low Risk >=60 High Risk <40LDL Cholesterol Reference Range: Optimal <100 Near Optimal 100-129 Borderline 130-159 High 160-189 Very High >=190POCT-GLUCOSE [id number] 21:50:00 Test Item Value Reference Range Interpretation Comments POC-GLUCOSE METER 318 mg/dL 70-110 H TESTED AT [facility] 6720 ([facility]) (test code = ELIZABETH [place] 1538) [address] POCT-GLUCOSE [id number] 18:04:00 Test Item Value Reference Range Interpretation Comments POC-GLUCOSE METER 238 mg/dL 70-110 H TESTED AT [facility] 6720 ([facility]) (test code = ELIZABETH [place] 1538) [address] POCT-GLUCOSE [id number] 12:22:00 Test Item Value Reference Range Interpretation Comments POC-GLUCOSE METER 290 mg/dL 70-110 H TESTED AT [facility] 67 ([facility]) (test code = ELIZABETH [place] 1538) [address] POCT-GLUCOSE [id number] 09:20:00 Test Item Value Reference Range Interpretation Comments POC-GLUCOSE METER 293 mg/dL 70-110 H TESTED AT [place] [address] ([facility]) (test code = ELIZABETH [place] 1538) [address] POCT-GLUCOSE [id number] 21:00:00 Test Item Value Reference Range Interpretation Comments POC-GLUCOSE METER 225 mg/dL 70-110 H TESTED AT [place] [address] ([facility]) (test code = ELIZABETH Flynn [place] 1538) [address] CT, CAROTID, [id number] 18:01:00FINAL REPORT CT angiogram of the upper [...] Petersen Verified Date/Time: 08/30/2017 18:01:31 Reading Location: [address] Neuro Reading Room , CTANG [id number] 18:01:00FINAL REPORT CT angiogram of the upper [...] Petersen Verified Date/Time: 08/30/2017 18:01:31 Reading Location: [address] Neuro Reading Room -GLUCOSE [id number] 17:21:00 Test Item Value Reference Range Interpretation Comments POC-GLUCOSE METER 256 mg/dL 70-110 H TESTED AT [facility] 6720 (BEAKER) (test code = ELIZABETH [place] 1538) [address] POCT-GLUCOSE [id number] 12:00:00 Test Item Value Reference Range Interpretation Comments POC-GLUCOSE METER 289 mg/dL 70-110 H TESTED AT [facility] 6720 (BEAKER) (test code = [facility] Rina [facility] 1538) [address] BASIC METABOLIC [id number] 10:12:00 Test Item Value Reference Range Interpretation [...] NOT APPLICABLE FOR DIALYSIS PATIEN TS. POCT-GLUCOSE [id number] 08:42:00 Test Item Value Reference Range Interpretation Comments POC-GLUCOSE METER 259 mg/dL 70-110 H TESTED AT [facility] 6720 (BEAKER) (test code = [facility] Rina [facility] 1538) [address] TROPONIN [id number] 06:14:00 Test Item Value Reference Range Interpretation [...] = 2801) RAD, CHEST, 1 VIEW, NON [id number] 04:23:00Reason for exam:->chest painShould this be performed at the bedside?->YesFINAL REPORT Comparison examination: None No pneumothorax, focal pulmonary co nsolidation, or significant pleural effusion. Normal cardiomediastinal contours. Normal skeleton and soft tissues. Impression: No acute abnormality. Signed: Ervin Jenkins Verified Date/Time: 08/30/2017 04:23:04 Reading Location: [address] Reading Room POCT-GLUCOSE [id number] 21:18:00 Test Item Value Reference Range Interpretation Comments POC-GLUCOSE METER 151 mg/dL 70-110 H TESTED AT [facility] 67 ([facility]) (test code = ELIZABETH Flynn [facility] 1538) [address] POCT-GLUCOSE [id number] 17:59:00 Test Item Value Reference Range Interpretation Comments POC-GLUCOSE METER 146 mg/dL 70-110 H TESTED AT [facility] 6720 ([facility]) (test [facility] = [facility] 1538) [address] HEMOGLOBIN [id number] 15:56:00 Test Item Value Reference Range Interpretation Comments HEMOGLOBIN A1C ([facility]) (test code = 13.7 % 4.3-6.1 H 368) CT, BRAIN, WITHOUT [id number] 14:52:00FINAL REPORT CT head without contrast. Comparisons: [...] Petersen Verified Date/Time: 08/29/2017 14:52:09 Reading Location: [facility] C013V Neuro Reading Room POCT-GLUCOSE [id number] 14:17:00 Test Item Value Reference Range Interpretation Comments POC-GLUCOSE METER 423 mg/dL 70-110 Notified Rina Low MD/TESTED (JESSICA) (test code = AT [facility] 67[address] [facility] 1538) [facility] 7703 0 VITAMIN [id number] 06:48:00 Test Item Value Reference Range Interpretation Comments VITAMIN B12 (BEAKER) (test code = 300 pg/mL 213-816 774) TSH/FREE T4 IF [id number] 06:48:00 Test Item Value Reference Range Interpretation Comments THYROID STIMULATING HORMONE 1.55 uIU/mL 0.35-4.94 (BEAKER) (test code = 772) CBC W/PLT COUNT & AUTO [id number] 05:10:00 Test Item Value Reference Range Interpretation [...] (BEAKER) (test code = 2801) URINALYSIS W/ [id number] 23:32:00 Test Item Value Reference Range Interpretation [...] Occasional SOURCE(BEAKER) (test code = 2795) TROPONIN [id number] 23:12:00 Test Item Value Reference Range Interpretation [...] acute neurological disease, and persistent tachyarrhythmia.BASIC METABOLIC [id number] 23:05:00 Test Item Value Reference Range Interpretation [...] NOT APPLICABLE FOR DIALYSIS PATIEN TS. POCT-GLUCOSE [id number] 20:49:00 Test Item Value Reference Range Interpretation Comments POC-GLUCOSE METER 376 mg/dL 70-110 H Notified R Devante SOUZA/TESTED (JESSICA) (test code = AT [facility] [address] 3079) [facility] 5233 0
[2020-10-09 14:25] LABS: Absolute Lymphocytes (CBC) 2.3 K/uL (0.7-4.9); Basophils % 0.5 % (0-1.3); Hematocrit 38.8 % (36.0-45.0); MPV 8.8 fL (7.6-11.3); RBC Red Blood Cell Count 4.89 M/uL (3.86-4.86)
[2020-10-09 14:28] LABS: Urine Blood Negative (Negative); Urine Glucose 2+ (Negative); Urine Protein Negative (Negative)
[2020-10-09] MEDS ORDERED: HYDROMORPHONE HCL 2 MG/ML inj ONE ×2 (14:40→16:02)
[2020-10-09] MEDS ORDERED: PROMETHAZINE INJ 25 MG/ML AMP ONE (14:40)
[2020-10-09] MEDS ORDERED: NA CHLORIDE 0.9% 1,000 ML ONE (14:41)
--- NOTE | 2020-10-09 14:44 | RAD REPORT ---
EXAM DESCRIPTION: CTAbdomen Pelvis W Contrast - 10/09/2020 2:32 pm CLINICAL HISTORY: Abdominal pain. ABD PAIN COMPARISON: Abdomen Pelvis W Contrast dated 05/12/2020; Abdomen Pelvis W Contrast dated 09/17/2019 ; Abdomen Pelvis W Contrast dated 08/18/2019; Abdomen Pelvis W Contrast dated 07/29/2019 TECHNIQUE: Biphasic CT imaging of the abdomen and pelvis was performed with 100 ml non-ionic IV cont rast. All CT scans are performed using dose optimization technique as appropriate and may include automated exposure control or mA/KV adjustment according to patient size. FINDINGS: The lung bases are clear. Hepatomegaly. No focal liver lesions are identified. Cholecystectomy. Moderate stool in the colon. No bowel obstruction. A few colonic diverticula. No evidence acute diver ticulitis. No evidence of active inflammatory changes involving either the small bowel or colon. Dwight endectomy. No evidence of significant lymphadenopathy. Metallic foreign bodies present in the right hip and musculature. No acute fractures. IMPRESSION: No acute intra-abdominal or pelvic finding. Incidental findings as noted above.
[2020-10-09 14:56] LABS: ALT/SGPT 30 U/L (12-78); AST/SGOT 20 U/L (15-37); Albumin 3.3 g/dL (3.4-5.0); Alkaline Phosphatase 106 U/L (45-117); BUN Blood Urea Nitrogen 12 mg/dL (7-18); Bicarbonate 25 mmol/L (21-32); Bilirubin Direct < 0.1 mg/dL (0-0.2); Bilirubin Total 0.2 mg/dL (0.2-1.0); Glucose Level 284 mg/dL (74-106); Lipase 147 U/L (73-393); Potassium 3.8 mmol/L (3.5-5.1); Protein, Total 6.9 g/dL (6.4-8.2); Sodium Level 139 mmol/L (136-145)
--- NOTE | 2020-10-09 16:43 | EDPHYS ---
Physician Documentation [facility] Name: Elly Clarke Age: 50 yrs Sex: Female : 1970 Arrival Date: 10/09/2020 Time: 12:47 Bed 23 Private MD: ED Physician Wil Patterson HPI: 10/09 13:39 This 50 yrs old Female presents to ER via Ambulatory with complaints of pm1 Crohns flare up. 13:39 The patient presents with abdominal pain in the lower abdomen. Onset: The pm1 symptoms/episode began/occurred 4 day(s) ago. The symptoms do not radiate. Associated signs and symptoms: Pertinent positives: nausea, vomiting, and diarrhea, blood in stool today. The symptoms are described as achy, crampy. Modifying factors: The symptoms are alleviated by nothing, the symptoms are aggravated by nothing. Severity of pain: in the emergency department the pain is actually worse. The patient has experienced similar episodes in the past, multiple times. The patient has been recently seen at the [facility], for similar complaints labs were performed, was given a prescription for pain medications, was given a prescription for an antiemetic. 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/A - Hysterectomy ap3 Historical: - Allergies: 13:06 Claritin (insomnia); hb 13:06 Compazine (Seizures); hb 13:06 Demerol (HEART RACING); hb 13:06 (Hives); hb 13:06 Morphine (RACING HEART); hb - Home Meds: 14:59 Ambien 10 mg Oral tab 1 tab once daily for Sleep-Onset Insomnia [Active]; butorphanol ap3 tartrate 10 mg/mL nasal spry 1 spray as needed for Migraine [Active]; carvedilol Oral 1 tab 2 times per day [Active]; clonazepam 1 mg Oral tab 1 tab 2 times per day [Active]; metformin 500 mg Oral tab 1 tab 2 times per day [Active]; tizanidine 2 mg Oral cap 2 caps twice a day [Active]; - PMHx: 13:06 Anxiety; Arthritis; Chrohns; Chronic pain; Diabetes - NIDDM; Dramatic migraine events; hb Gastroparesis; High Cholesterol; Hypertension; insomnia; Migraines; Pancreatitis; spinal stenosis; - Immunization history:: Client reports receiving the 2nd dose of the Covid vaccine. - Social history:: Smoking status: Patient denies any tobacco usage or history of. ROS: 13:39 Constitutional: Negative for fever, chills, and weight loss, Eyes: Negative for injury, pm1 pain, redness, and discharge, ENT: Negative for injury, pain, and discharge, Neck: Negative for injury, pain, and swelling, Cardiovascular: Negative for chest pain, palpitations, and edema, Respiratory: Negative for shortness of breath, cough, wheezing, and pleuritic chest pain. 13:39 Back: Negative for injury and pain, : Negative for injury, bleeding, discharge, and swelling, MS/Extremity: Negative for injury and deformity, Skin: Negative for injury, rash, and discoloration, Neuro: Negative for headache, weakness, numbness, tingling, and seizure. 13:39 Abdomen/GI: Positive for abdominal pain, nausea, vomiting, and diarrhea, rectal bleeding. Exam: 13:39 Constitutional: This is a well developed, well nourished patient who is awake, alert, pm1 and in no acute distress. Head/Face: Normocephalic, atraumatic. 13:39 Back: No spinal tenderness. No costovertebral tenderness. Full range of motion. Skin: Warm, dry with normal turgor. Normal color with no rashes, no lesions, and no evidence of cellulitis. MS/ Extremity: Pulses equal, no cyanosis. Neurovascular intact. Full, normal range of motion. 13:39 Eyes: Exam is negative for acute changes, Periorbital structures: appear normal, Extraocular movements: intact throughout, Conjunctiva: no acute changes, no injection. 13:39 ENT: Exam is negative for acute changes, Mouth: Lips: normal, Oral mucosa: normal, pink and intact, moist. 13:39 Cardiovascular: Exam negative for acute changes, Rate: normal, Rhythm: regular, Pulses: no pulse deficits are appreciated. 13:39 Respiratory: Exam negative for acute changes, respiratory distress, shortness of breath. 13:39 Abdomen/GI: Inspection: obese Palpation: abdomen is soft and non-tender, in all quadrants, Rectal exam: 13:39 Neuro: Exam negative for acute changes, Orientation: is normal, Mentation: is normal, Motor: is normal, moves all fours. 15:56 Abdomen/GI: Rectal exam: rectal tone normal, Stool: brown, guaiac negative, pm1 hemorrhoid(s), external, with inflammation, without bleeding, without thrombosis, without pain, tenderness, is not appreciated, Deanna JOHNS, abrasions present 12 o'clock of anus. Vital Signs: 13:05 BP 167 / 101; Pulse 94; Resp 16; Temp 97.9; Pulse Ox 100% on R/A; Pain 8/10; hb 14:55 BP 151 / 100; Pulse 94; Resp 17; Pulse Ox 98% on R/A; ap3 15:54 BP 149 / 112; Pulse 76; Resp 16; Pulse Ox 98% on R/A; ap3 MDM: 13:31 Patient medically screened. pm1 16:36 ED course: PMPAware reviewed. Patient asking for ambien and clonazepam refills since pm1 she does not currently have a PCP. Patient received a 20 day prescription for ambien on 10/01/2020. I will not prescribe the patient clonazepam or ambien. She is here for abdominal pain and I will treat that. On FIRST COOK aware patient currently does not have any narcotics but has sedatives remaining. Will give the patient tramadol for pain which she reports is effective for her pain. 17:20 Data reviewed: vital signs. Data interpreted: Pulse oximetry: on room air is 98 %. pm1 Interpretation: normal. 17:22 ED course: Patient currently on abx. Pending urine culture before changing or adding pm1 abx therapy. Patient denies urinary symptoms. 10/09 13:31 Order name: Basic Metabolic Panel; Complete Time: 14:57 pm1 10/09 13:31 Order name: CBC with Diff; Complete Time: 14:38 pm1 10/09 13:31 Order name: Hepatic Function; Complete Time: 14:57 pm1 10/09 13:31 Order name: Lipase; Complete Time: 14:57 pm1 10/09 13:32 Order name: Urine Microscopic Only; Complete Time: 17:20 pm1 10/09 14:27 Order name: Urine Dipstick-Ancillary; Complete Time: 14:38 EDMS 10/09 13:31 Order name: IV Saline Lock; Complete Time: 14:28 pm1 10/09 13:31 Order name: Labs collected and sent; Complete Time: 14:28 pm1 10/09 13:31 Order name: CT Abd/Pelvis - IV Contrast Only; Complete Time: 14:45 pm1 10/09 15:56 Order name: Shawna; Complete Time: 17:20 mt 10/09 17:10 Order name: Urine Culture EDUT 10/09 13:32 Order name: Urine Dipstick-Ancillary (obtain specimen); Complete Time: 15:01 pm1 Administered Medications: 14:27 Drug: Dilaudid (HYDROmorphone) 1 mg {Note: patient awake, alert. Pain is 8/10 pain.} ap3 Route: IVP; Site: left forearm; 17:23 Follow up: Response: No adverse reaction; Pain is decreased; RASS: Alert and Calm (0) ap3 14:28 Drug: Phenergan (promethazine) 12.5 mg Route: IVP; Site: left forearm; ap3 17:23 Follow up: Response: No adverse reaction; Nausea is decreased ap3 14:28 Drug: NS 0.9% 1000 ml Route: IV; Rate: 1000 ml; Site: left forearm; ap3 17:23 Follow up: Response: No adverse reaction; IV Status: Completed infusion ap3 Disposition: 18:40 Co-signature as Attending Physician, Wil Patterson MD I agree with the assessment and rn plan of care. Attestation: The patient's history, exam findings, diagnostics, and a summary of any interventions or procedures was reviewed in detail with Jose A Leung NP. Disposition Summary: 10/09/20 16:42 Discharge Ordered Location: Home pm1 Problem: new pm1 Symptoms: have improved pm1 Condition: Stable pm1 Diagnosis - Abdominal pain, unspecified pm1 Followup: pm1 - With: Emergency Department - When: As needed - Reason: Worsening of condition Followup: pm1 - With: Private Physician - When: 2 - 3 days - Reason: Recheck today's complaints, Continuance of care, Re-evaluation by your physician Discharge Instructions: - Discharge Summary Sheet pm1 - Abdominal Pain, Adult pm1 - Crohn's Disease pm1 Forms: - Medication Reconciliation Form pm1 - Thank You Letter pm1 - Antibiotic Education pm1 - Prescription Opioid Use pm1 Prescriptions: - Tramadol 50 mg Oral Tablet - take 1 tablet by ORAL route every 8 hours as needed; 12 tablet; Refills: 0, pm1 Product Selection Permitted - promethazine 25 mg Oral Tablet - take 1 tablet by ORAL route every 6 hours As needed; 20 tablet; Refills: 0, pm1 Product Selection Permitted Signatures: Dispatcher [employer] Wil Desir MD MD rn Marinas, Patrick, PATENT EXAMINER PATENT EXAMINER pm1 Radha Mancuso RN RN Deanna Barajas RN RN ap3 Corrections: (The following items were deleted from the chart) 15:01 13:32 Urine Test ordered. pm1 ap3
--- NOTE | 2020-10-09 16:43 | ER ---
Nurse's Notes [facility] Name: Elly Clarke Age: 50 yrs Sex: Female : 1970 Arrival Date: 10/09/2020 Time: 12:47 Bed 23 Private MD: Diagnosis: Abdominal pain, unspecified Presentation: 10/09 13:05 Chief complaint: Lower abdominal pain x 5 days, rectal bleeding since this morning. hb Seen in ED for same s/s this weekend, on Cipro and Flagyl Day 3. Coronavirus screen: Client presents with at least one sign or symptom that may indicate coronavirus-19. Standard/surgical mask placed on the client. Provider contacted for isolation considerations. Ebola Screen: No symptoms or risks identified at this time. Initial Sepsis Screen: Does the patient meet any 2 criteria? HR > 90 bpm. No. Patient's initial sepsis screen is negative. Does the patient have a suspected source of infection? No. Patient's initial sepsis screen is negative. Risk Assessment: Do you want to hurt yourself or someone else? Patient reports no desire to harm self or others. Onset of symptoms was October 02, 2020. 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 N/A - Hysterectomy ap3 Historical: - Allergies: 13:06 Claritin (insomnia); hb 13:06 Compazine (Seizures); hb 13:06 Demerol (HEART RACING); hb 13:06 (Hives); hb 13:06 Morphine (RACING HEART); hb - Home Meds: 14:59 Ambien 10 mg Oral tab 1 tab once daily for Sleep-Onset Insomnia [Active]; butorphanol ap3 tartrate 10 mg/mL nasal spry 1 spray as needed for Migraine [Active]; carvedilol Oral 1 tab 2 times per day [Active]; clonazepam 1 mg Oral tab 1 tab 2 times per day [Active]; metformin 500 mg Oral tab 1 tab 2 times per day [Active]; tizanidine 2 mg Oral cap 2 caps twice a day [Active]; - PMHx: 13:06 Anxiety; Arthritis; Chrohns; Chronic pain; Diabetes - NIDDM; Dramatic migraine events; hb Gastroparesis; High Cholesterol; Hypertension; insomnia; Migraines; Pancreatitis; spinal stenosis; - Immunization history:: Client reports receiving the 2nd dose of the Covid vaccine. - Social history:: Smoking status: Patient denies any tobacco usage or history of. Screenin:58 Abuse screen: Denies threats or abuse. Nutritional screening: No deficits noted. ap3 Tuberculosis screening: No symptoms or risk factors identified. Fall Risk None identified. Assessment: 14:25 General: Appears in no apparent distress. uncomfortable, Behavior is calm, cooperative, ap3 appropriate for age. 14:25 Pain: Complains of pain in abdomen Pain does not radiate. Pain currently is 7 out of 10 ap3 on a pain scale. Pain began suddenly, weeks ago. Neuro: Level of Consciousness is awake, alert, obeys commands, Oriented to person, place, time, situation, Appropriate for age Moves all extremities. Gait is steady, Speech is normal. Cardiovascular: Capillary refill < 3 seconds. Respiratory: Airway is patent Respiratory effort is even, unlabored, Respiratory pattern is regular, symmetrical. GI: Bowel sounds present X 4 quads. Abd is soft and non tender X 4 quads. GI: Reports rectal bleeding, bloody stool, since 10/09/20. : No signs and/or symptoms were reported regarding the genitourinary system. Vital Signs: 13:05 BP 167 / 101; Pulse 94; Resp 16; Temp 97.9; Pulse Ox 100% on R/A; Pain 8/10; hb 14:55 BP 151 / 100; Pulse 94; Resp 17; Pulse Ox 98% on R/A; ap3 15:54 BP 149 / 112; Pulse 76; Resp 16; Pulse Ox 98% on R/A; ap3 ED Course: 12:47 Patient arrived in ED. mr 13:06 Triage completed. hb 13:06 Arm band placed on. hb 13:19 Jose A Leung, [id number] is PHCP. pm1 13:19 Wil Patterson MD is Attending Physician. pm1 13:37 Deanna Barajas, NAT is Primary Nurse. ap3 14:[address] via wheelchair. ap3 14:32 CT Abd/Pelvis - IV Contrast Only In Process Unspecified. EDMS 14:58 Patient has correct armband on for positive identification. Bed in low position. Call ap3 light in reach. Side rails up X2. Pulse ox on. NIBP on. Door closed. Noise minimized. 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 ap3 17:22 IV discontinued, intact, bleeding controlled, No redness/swelling at site. Pressure ap3 dressing applied. Administered Medications: 14:27 Drug: Dilaudid (HYDROmorphone) 1 mg {Note: patient awake, alert. Pain is 8/10 pain.} ap3 Route: IVP; Site: left forearm; 17:23 Follow up: Response: No adverse reaction; Pain is decreased; RASS: Alert and Calm (0) ap3 14:28 Drug: Phenergan (promethazine) 12.5 mg Route: IVP; Site: left forearm; ap3 17:23 Follow up: Response: No adverse reaction; Nausea is decreased ap3 14:28 Drug: NS 0.9% 1000 ml Route: IV; Rate: 1000 ml; Site: left forearm; ap3 17:23 Follow up: Response: No adverse reaction; IV Status: Completed infusion ap3 Outcome: 16:42 Discharge ordered by MD. pm1 17:22 Discharged to home ambulatory. ap3 17:22 Condition: good 17:22 Discharge instructions given to patient, Instructed on discharge instructions, follow up and referral plans. medication usage, Demonstrated understanding of instructions, follow-up care, medications, Prescriptions given X 2. 17:23 Patient left the ED. ap3 Signatures: Dispatcher [employer] NARESH RonaldAngelika mr LeungJose A, CONTINUITY COORDINATOR CONTINUITY COORDINATOR pm1 Radha Mancuso RN RN Deanna Barajas RN RN ap3
[2020-10-09 17:10] LABS: Urine Bacteria >50 /HPF (<20); Urine RBC <5 /HPF (NONE SEEN)
[2020-10-09 18:06] VITALS: TEMP 97.9
[2020-10-09 18:07] VITALS: O2SAT 98
[2020-10-09 18:10] VITALS: BP 149/112
== END 2020-10-09 17:23 | disposition home or self-care (01) ==
LOC: ER 12:41
DX: R10.30 Lower abdominal pain, unspecified (principal); K50.90 Crohn's disease, unspecified, without complications; I10 Essential (primary) hypertension; E11.9 Type 2 diabetes mellitus without complications; Z88.5 Allergy status to narcotic agent; Z88.8 Allergy status to other drugs, medicaments and biological substances
CPT/HCPCS: 96361; 87088; 85025; 87086; 80048; 36415; 80076; 82272; 83690; 74177; 96375; 96374; 99284; Q9967; J2550; J1170 ×2; J7030; 81003; 81015

== ENCOUNTER 2020-10-20 00:32 | Emergency (ER) | payer OTHER ==
--- OUTSIDE RECORDS SUMMARY | 2020-10-20 00:37 | XMS REPORT | Continuity of Care Document ---
:1970 Author Organization [facility] t Address [address] [place] [address] Care Team Providers Name Role Phone Bina SOUZA [place] Primary Care Physician Eugenia JACKER, F Attending Clinician Doctor Unassigned, Name Attending [...] Date Quantity Comments Source Sex Assigned At [facility] Tobacco use and 2017-08-28 2017-08-28 Never used [facility] - exposure 00:00:00 00:00:00 [facility] Smoking Status Start Date Stop Date Source Never smoker [facility] Medications Ordered Filled Start Stop Current [...] 2020-08-05 2020-08-05 Emergency DEV Bello 1.2.840.114 [id number] 20:44:00 23:55:00 Gopi Suarez 350.1.13.10 [place] 4.2.7.2.686 [place] [id number] 2020-07-22 2020-07-22 [facility] 1.2.840.114 [id number] 17:17:00 20:14:00 Gopi Suarez 350.1.13.10 [place] 4.2.7.2.686 [place] [id number] 2020-06-17 2020-06-17 Orders Doctor IQRA [id number] [id number] 00:00:00 00:00:00 Only Unassigned, GREGORY 350.1.13.10 [facility] 4.2.7.2.686 [id number] 2020-05-19 2020-05-19 Emergency [facility] [id number] 15:45:00 18:07:00 Pastora Suarez 350.1.13.10 [place] 4.2.7.2.686 [place] [id number] 2019-08-21 2019-08-22 Emergency [facility] [id number] 23:48:04 02:26:00 Jose Cruz Suarez 350.1.13.10 [place] 4.2.7.2.686 [place] [id number] 2019-08-06 2019-08-06 Telephone IQRA Barragan 1.2.840.114 [id number] 00:00:00 00:00:00 Apoorva [facility]ENK[facility]13.10 [facility] 4.2.7.2.686 [id number] 2019-08-06 2019-08-06 Telephone IQRA Box [id number] 00:00:00 00:00:00 Jinny JENKINS 350.1.13.10 [facility] 4.2.7.2.686 [id number] 2019-08-05 2019-08-05 Telephone IQRA Box [id number] 00:00:00 00:00:00 Jinny JENKINS 350.1.13.10 [facility] 4.2.7.2.686 [id number] Results Test Description Test Time Test Comments Results Result Comments Source POCT-GLUCOSE METER 2017-09-01 17:07:00 Test Item Value Reference Range Interpretation Comme nts POC-GLUCOSE METER ([facility]) (test 298 mg/dL 70-110 [address]) [facility] 7703 0 POCT-GLUCOSE [id number] 12:11:00 Test Item Value Reference Range Interpretation Comments POC-GLUCOSE METER 331 mg/dL 70-110 H Notified R Devante SOUZA/TESTED ([facility]) (test code = AT [address] 1538) [facility] 7703 0 POCT-GLUCOSE [id number] 10:55:00 Test Item Value Reference Range Interpretation Comments POC-GLUCOSE METER 365 mg/dL 70-110 H TESTED AT [place] [address] ([facility]) (test code = ELIZABETH Flynn [facility] 1538) [address] POCT-GLUCOSE [id number] 08:44:00 Test Item Value Reference Range Interpretation Comments POC-GLUCOSE METER 291 mg/dL 70-110 H TESTED AT [place] [address] ([facility]) (test code = ELIZABETH Flynn [facility] 1538) [address] LIPID [id number] 05:56:00 Test Item Value Reference Range Interpretation Comments TRIGLYCERIDES ([facility]) (test code = 279 mg/dL 540) CHOLESTEROL ([facility]) (test code = 119 mg/dL 631) HDL CHOLESTEROL ([facility]) (test code 22 mg/dL = 976) LDL CHOLESTEROL CALCULATED ([facility]) 41 mg/dL (test code = 633) Triglyceride Reference Range: Low Risk <150 Borderline 150-199 High Risk 200-499 Very High Risk >=500Cholesterol Reference Range: Low Risk <200 Borderline 200-239 High Risk >240HDL Cholesterol Reference Range: Low Risk >=60 High Risk <40LDL Cholesterol Reference Range: Optimal <100 Near Optimal 100-129 Borderline 130-159 High 160-189 Very High >=190POCT-GLUCOSE [id number] 21:50:00 Test Item Value Reference Range Interpretation Comments POC-GLUCOSE METER 318 mg/dL 70-[address] [facility] [address] ([facility]) (test code = ELIZABETH [place] 1538) [address] POCT-GLUCOSE [id number] 18:04:00 Test Item Value Reference Range Interpretation Comments POC-GLUCOSE METER 238 mg/dL 70-[address] [facility] [address] ([facility]) (test code = ELIZABETH [place] 1538) [address] POCT-GLUCOSE [id number] 12:22:00 Test Item Value Reference Range Interpretation Comments POC-GLUCOSE METER 290 mg/dL 70-[address] [facility] [address] ([facility]) (test code = ELIZABETH [place] 1538) [address] POCT-GLUCOSE [id number] 09:20:00 Test Item Value Reference Range Interpretation Comments POC-GLUCOSE METER 293 mg/dL 70-110 H TESTED AT [place] [address] ([facility]) (test code = ELIZABETH [place] 1538) [address] POCT-GLUCOSE [id number] 21:00:00 Test Item Value Reference Range Interpretation Comments POC-GLUCOSE METER 225 mg/dL 70-110 H TESTED AT [place] [address] ([facility]) (test code = ELIZABETH Flynn [place] 1538) [address] CT, CAROTID, [id number] 18:01:00FINAL REPORT CT angiogram of the upper [...] Petersen Verified Date/Time: 08/30/2017 18:01:31 Reading Location: [address] Neuro Reading Room , CTANG [id number] 18:01:00FINAL REPORT CT angiogram of the upper [...] Petersen Verified Date/Time: 08/30/2017 18:01:31 Reading Location: [address] Neuro Reading Room -GLUCOSE [id number] 17:21:00 Test Item Value Reference Range Interpretation Comments POC-GLUCOSE METER 256 mg/dL 70-[address] [facility] (BEAKER) (test code = ELIZABETH Flynn [place] 1538) [address] POCT-GLUCOSE [id number] 12:00:00 Test Item Value Reference Range Interpretation Comments POC-GLUCOSE METER 289 mg/dL 70-[address] [facility] (BEAKER) (test code = [facility] Rina [facility] 1538) [address] BASIC METABOLIC [id number] 10:12:00 Test Item Value Reference Range Interpretation [...] NOT APPLICABLE FOR DIALYSIS PATIEN TS. POCT-GLUCOSE [id number] 08:42:00 Test Item Value Reference Range Interpretation Comments POC-GLUCOSE METER 259 mg/dL 70-[address] [facility] (BEAKER) (test code = [facility] Rina [facility] 1538) [address] TROPONIN [id number] 06:14:00 Test Item Value Reference Range Interpretation [...] = 2801) RAD, CHEST, 1 VIEW, NON [id number] 04:23:00Reason for exam:->chest painShould this be performed at the bedside?->YesFINAL REPORT Comparison examination: None No pneumothorax, focal pulmonary co nsolidation, or significant pleural effusion. Normal cardiomediastinal contours. Normal skeleton and soft tissues. Impression: No acute abnormality. Signed: Ervin Jenkins Verified Date/Time: 08/30/2017 04:23:04 Reading Location: [address] Reading Room POCT-GLUCOSE [id number] 21:18:00 Test Item Value Reference Range Interpretation Comments POC-GLUCOSE METER 151 mg/dL 70-[address] [facility] ([facility]) (test code = ELIZABETH Flynn [facility] 1538) [address] POCT-GLUCOSE [id number] 17:59:00 Test Item Value Reference Range Interpretation Comments POC-GLUCOSE METER 146 mg/dL 70-[address] [facility] ([facility]) (test code = [facility] 1538) [address] HEMOGLOBIN [id number] 15:56:00 Test Item Value Reference Range Interpretation Comments HEMOGLOBIN A1C ([facility]) (test code = 13.7 % 4.3-6.1 H 368) CT, BRAIN, WITHOUT [id number] 14:52:00FINAL REPORT CT head without contrast. Comparisons: [...] Petersen Verified Date/Time: 08/29/2017 14:52:09 Reading Location: [facility] C013V Neuro Reading Room POCT-GLUCOSE [id number] 14:17:00 Test Item Value Reference Range Interpretation Comments POC-GLUCOSE METER 423 mg/dL 70-110 Notified Rina Low MD/TESTED (JESSICA) (test code = AT [facility] [address] [facility] 1538) [facility] 7703 0 VITAMIN [id number] 06:48:00 Test Item Value Reference Range Interpretation Comments VITAMIN B12 (BEAKER) (test code = 300 pg/mL 213-816 774) TSH/FREE T4 IF [id number] 06:48:00 Test Item Value Reference Range Interpretation Comments THYROID STIMULATING HORMONE 1.55 uIU/mL 0.35-4.94 (BEAKER) (test code = 772) CBC W/PLT COUNT & AUTO [id number] 05:10:00 Test Item Value Reference Range Interpretation [...] (BEAKER) (test code = 2801) URINALYSIS W/ [id number] 23:32:00 Test Item Value Reference Range Interpretation [...] Occasional SOURCE(BEAKER) (test code = 2795) TROPONIN [id number] 23:12:00 Test Item Value Reference Range Interpretation [...] acute neurological disease, and persistent tachyarrhythmia.BASIC METABOLIC [id number] 23:05:00 Test Item Value Reference Range Interpretation [...] NOT APPLICABLE FOR DIALYSIS PATIEN TS. POCT-GLUCOSE [id number] 20:49:00 Test Item Value Reference Range Interpretation Comments POC-GLUCOSE METER 376 mg/dL 70-110 H Notified R Devante SOUZA/TESTED (JESSICA) (test code = AT [facility] [address] 5079) [facility] 8053 0
[2020-10-20 01:44] LABS: Urine Blood 3+ (Negative); Urine Glucose 2+ (Negative); Urine Protein Negative (Negative); Urine Specific Gravity 1.015 (1.005-1.030)
[2020-10-20 02:02] LABS: Urine Specific Gravity/Preg 1.015 (1.005-1.030)
[2020-10-20 03:05] LABS: Absolute Lymphocytes (CBC) 3.7 K/uL (0.7-4.9); Basophils % 1.1 % (0-1.3); Hematocrit 41.8 % (36.0-45.0); Lymphocytes % 40.4 % (15.3-44.8); MPV 8.4 fL (7.6-11.3); RBC Red Blood Cell Count 5.25 M/uL (3.86-4.86)
[2020-10-20] MEDS ORDERED: HYDROMORPHONE HCL 1 MG/ML INJ ONE ×2 (03:48→05:54)
[2020-10-20] MEDS ORDERED: NA CHLORIDE 0.9% 1,000 ML ONE ×2 (03:48→08:40)
[2020-10-20] MEDS ORDERED: PROMETHAZINE INJ 25 MG/ML AMP ONE ×3 (03:48→11:01)
[2020-10-20 03:49] LABS: ALT/SGPT 49 U/L (12-78); Albumin 3.7 g/dL (3.4-5.0); Alkaline Phosphatase 123 U/L (45-117); BUN Blood Urea Nitrogen 14 mg/dL (7-18); Bicarbonate 26 mmol/L (21-32); Bilirubin Direct < 0.1 mg/dL (0-0.2); Bilirubin Total 0.3 mg/dL (0.2-1.0); Lipase 229 U/L (73-393); Protein, Total 7.7 g/dL (6.4-8.2); Sodium Level 136 mmol/L (136-145)
[2020-10-20 03:50] LABS: AST/SGOT 33 U/L (15-37); Glucose Level 415 mg/dL (74-106); Potassium 4.3 mmol/L (3.5-5.1)
[2020-10-20] MEDS ORDERED: FAMOTIDINE 20 MG/2 ML VIAL IV ONE (05:14)
--- NOTE | 2020-10-20 07:18 | ER ---
Nurse's Notes [facility] Name: Elly Clarke Age: 50 yrs Sex: Female : 1970 Arrival Date: 10/20/2020 Time: 00:37 Bed 18 Private MD: Pavel Curran T Diagnosis: Vomiting;GI Bleed/ Gastrointestinal hemorrhage, unspecified;Crohn's disease, unspecified, without complications;Type 2 diabetes mellitus with hyperglycemia-poorly controlled;Gastroparesis Presentation: 10/20 01:12 Chief complaint: Patient states: she is having abdominal pain, nausea and vomiting bb starting today. Coronavirus screen: vomiting. Client presents with at least one sign or symptom that may indicate coronavirus-19. Standard/surgical mask placed on the client. Ebola Screen: No symptoms or risks identified at this time. Initial Sepsis Screen: Does the patient meet any 2 criteria? No. Patient's initial sepsis screen is negative. Does the patient have a suspected source of infection? No. Patient's initial sepsis screen is negative. Risk Assessment: Do you want to hurt yourself or someone else? Patient reports no desire to harm self or others. Onset of symptoms was October 19, 2020. 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/A - Hysterectomy bb Historical: - Allergies: 01:15 Claritin (insomnia); bb 01:15 Compazine (Seizures); bb 01:15 Demerol (HEART RACING); bb 01:15 (Hives); bb 01:15 Morphine (RACING HEART); bb - Home Meds: 01:15 Ambien 10 mg Oral tab 1 tab once daily for Sleep-Onset Insomnia [Active]; butorphanol bb tartrate 10 mg/mL nasal spry 1 spray as needed for Migraine [Active]; carvedilol Oral 1 tab 2 times per day [Active]; clonazepam 1 mg Oral tab 1 tab 2 times per day [Active]; metformin 500 mg Oral tab 1 tab 2 times per day [Active]; tizanidine 2 mg Oral cap 2 caps twice a day [Active]; - PMHx: 01:15 Anxiety; Arthritis; Chrohns; Chronic pain; Diabetes - NIDDM; Dramatic migraine events; bb Gastroparesis; High Cholesterol; Hypertension; insomnia; Migraines; Pancreatitis; spinal stenosis; - Immunization history:: Adult Immunizations up to date, Client reports receiving the 1st dose of the Covid vaccine. - Social history:: Smoking status: Patient denies any tobacco usage or history of. Screenin:57 Abuse screen: Denies threats or abuse. Nutritional screening: No deficits noted. ea Tuberculosis screening: No symptoms or risk factors identified. Fall Risk Assessment: 02:58 General: Appears uncomfortable, Behavior is crying, restless. Pain: Complains of pain ea in abdomen. Neuro: Level of Consciousness is awake, alert, obeys commands, Oriented to person, place, time. Respiratory: Airway is patent Respiratory effort is even, unlabored, Respiratory pattern is regular, symmetrical. GI: Abdomen is round. Derm: Skin is pink, warm \T\ dry. 03:44 Reassessment: Patient and/or family updated on plan of care and expected duration. Pain ea level reassessed. Patient is alert, oriented x 3, equal unlabored respirations, skin warm/dry/pink. 05:16 Reassessment: pt to CT scan via wheelchair accompanied by line maintenance technician. bb 05:51 Reassessment: Patient and/or family updated on plan of care and expected duration. Pain ea level reassessed. Patient is alert, oriented x 3, equal unlabored respirations, skin warm/dry/pink. 06:26 Reassessment: Patient and/or family updated on plan of care and expected duration. Pain ea level reassessed. Patient is alert, oriented x 3, equal unlabored respirations, skin warm/dry/pink. 07:00 Reassessment: Patient and/or family updated on plan of care and expected duration. Pain ea level reassessed. Patient is alert, oriented x 3, equal unlabored respirations, skin warm/dry/pink. Provider at bedside updating pt on plan of care. 07:53 Reassessment: Patient is sitting up in bed, talking on the phone. Patient is A/O X's 4. ap3 Respirations are even and unlabored at this time. Bed is locked in lowest position, side rails are up Xs 1. Call light is within reach. Patient states patient is improved. 09:19 Reassessment: called report to receiving facility. ap3 11:04 GI: ap3 11:05 GI: Abdomen is tender to palpation in suprapubic area. ap3 Vital Signs: 01:12 BP 176 / 106; Pulse 110; Resp 20 S; Temp 100(O); Pulse Ox 100% on R/A; Weight 94.8 kg bb (R); Height 5 ft. 7 in. (170.18 cm) (R); Pain 8/10; 02:10 BP 144 / 89; Pulse 102; Resp 20; Pulse Ox 99% on R/A; tt3 04:15 BP 154 / 94; Pulse 105; Resp 20 S; Temp 98.4(O); Pulse Ox 96% on R/A; bb 07:54 BP 163 / 101; Pulse 98; Resp 19; Pulse Ox 97% on R/A; ap3 01:12 Body Mass Index 32.73 (94.80 kg, 170.18 cm) bb ED Course: 00:37 Patient arrived in ED. am2 00:38 Pavel Curran MD is Private Physician. am2 01:15 Triage completed. bb 01:15 Arm band placed on Patient placed in waiting room, Patient notified of wait time. bb 02:46 Justin Oshea MD is Attending Physician. [facility] 02:55 Ruthann Puentes, NAT is Primary Nurse. ea 02:57 Inserted saline lock: 20 gauge in left antecubital area, using aseptic technique. Blood ea collected. 02:58 Patient has correct armband on for positive identification. Bed in low position. Call ea light in reach. Side rails up X 1. 05:36 CT Abd/Pelvis - IV Contrast Only In Process Unspecified. EDMS 07:12 Attending Physician role handed off by Justin Oshea MD zoe 07:12 Kam Parker MD is Attending Physician. zoe 07:15 initiated a transfer with Molly from the [facility]. eb 07:49 per Polly from the [facility], [facility] is declining eb the transfer due to being at capacity / She will try [facility]. 07:53 per Molly at the [facility], Denia Daniel Cheryl is declining the eb transfer due to being at capacity. She will try [facility]. 08:[address] commissioner for [facility] with Dr. Keith agrawal for patient transfer consultation. 08:45 administrative approval given by Molly Major Rn// patient has been accepted to [facility] Medical Floor [address]m. Dr. Christie has accepted the patient in transfer/ report to be called to [phone]. 11:04 No provider procedures requiring assistance completed. Patient transferred, IV remains ap3 in place. Administered Medications: 03:31 Drug: Dilaudid (HYDROmorphone) 1 mg Route: IVP; Site: left antecubital; ea 04:00 Follow up: Response: No adverse reaction ea 03:31 Drug: Phenergan (promethazine) 12.5 mg Route: IVP; Site: left antecubital; ea 04:00 Follow up: Response: No adverse reaction ea 04:56 Drug: Pepcid (famotidine) 20 mg Route: IVP; Site: left antecubital; ea 05:44 Follow up: Response: No adverse reaction ea 05:43 Drug: Dilaudid (HYDROmorphone) 1 mg Route: IVP; Site: left antecubital; ea 06:26 Follow up: Response: No adverse reaction; Pain is decreased ea 06:19 Drug: NS 0.9% 1000 ml Route: IV; Rate: 1000 ml; Site: left antecubital; ea 07:37 Follow up: IV Status: Completed infusion; IV Intake: 1000ml ap3 07:37 Drug: ProTONIX (pantoprazole) 80 mg Route: IVP; Site: left antecubital; ap3 08:13 Follow up: Response: No adverse reaction ap3 08:00 Drug: ProTONIX (pantoprazole) 8 mg/hr Route: IV; Rate: 25 ml/hr; Site: left antecubital;ap3 11:06 Follow up: IV Status: Infusion continued upon transfer ap3 08:30 Drug: Flagyl (metroNIDAZOLE) 500 mg Volume: 100 ml; Route: IVPB; Rate: 200 ml/hr; ap3 Infused Over: 30 mins; Site: left antecubital; 08:58 Follow up: IV Status: Completed infusion ap3 08:30 Drug: Dilaudid (HYDROmorphone) 1 mg Route: IVP; Site: left antecubital; ap3 08:58 Follow up: Response: No adverse reaction; Pain is decreased ap3 08:30 Drug: Phenergan (promethazine) 12.5 mg Route: IVP; Site: left antecubital; ap3 08:57 Follow up: Response: No adverse reaction; Nausea is decreased ap3 08:31 Drug: NS 0.9% 1000 ml Route: IV; Rate: 125 ml/hr; Site: left antecubital; ap3 11:05 Follow up: Response: No adverse reaction; IV Status: Completed infusion ap3 11:05 Follow up: IV Status: Infusion continued upon transfer ap3 08:31 Drug: Cipro (ciprofloxacin) 400 mg Volume: 200 ml; Route: IVPB; Infused Over: 60 mins; ap3 Site: left antecubital; 11:05 Follow up: Response: No adverse reaction ap3 11:05 Follow up: Response: No adverse reaction ap3 11:06 Follow up: IV Status: Completed infusion ap3 11:19 Drug: Insulin Regular Human 10 units {Co-Signature: ap3 (Deanna Barajas RN).} Route: bp IVP; Site: left antecubital; Intake: 07:37 IV: 1000ml; Total: 1000ml. ap3 Outcome: 07:18 ER care complete, transfer ordered by MD. enriquez 11:04 Transferred by ground EMS ap3 11:04 Condition: good 11:04 Discharge instructions given to patient, Instructed on the need for transfer, Demonstrated understanding of instructions. 11:20 Patient left the ED. ap3 Signatures: Dispatcher [employer] Kam Corrales MD MD cha Ballard, Brenda RN Deanna Anderson Elena, RN RN ea Peltier, Brian, RN RN bp Prokisch, Amanda, RN RN ap3 Botello, Elizabeth eb Holmes, Maurice, MD MD 7 [place] 3 Deanna Barajas RN ap3
--- NOTE | 2020-10-20 07:18 | EDPHYS ---
Physician Documentation [facility] Name: Elly Clarke Age: 50 yrs Sex: Female : 1970 Arrival Date: 10/20/2020 Time: 00:37 Bed 18 Private MD: Pavel Curran T ED Physician Kam Parker HPI: 10/20 03:15 This 50 yrs old Female presents to ER via Ambulatory with complaints of mh7 Abdominal Pain, Epigastric Pain, Vomiting - blood, Bloody Stools. 03:15 The patient presents to the emergency department with nausea, that is moderate, mh7 vomiting, that is intermittent, described as blood streaked, clear fluid, diarrhea, that is intermittent, abdominal pain, of the suprapubic area, right lower quadrant and left lower quadrant. Onset: The symptoms/episode began/occurred 2 day(s) ago. Possible causes: flare up of bowel problem, Crohn's disease. The symptoms are aggravated by nothing. The symptoms are alleviated by nothing. Associated signs and symptoms: Pertinent positives: abdominal pain, nausea, vomiting, Pertinent negatives: anorexia, belching, constipation, dysuria, fever, flatulence, hematuria, vaginal discharge. Severity of symptoms: At their worst the symptoms were moderate yesterday, in the emergency department the symptoms are unchanged. The patient has experienced similar episodes in the past, multiple times. 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 - Hysterectomy bb Historical: - Allergies: 01:15 Claritin (insomnia); bb 01:15 Compazine (Seizures); bb 01:15 Demerol (HEART RACING); bb 01:15 (Hives); bb 01:15 Morphine (RACING HEART); bb - Home Meds: 01:15 Ambien 10 mg Oral tab 1 tab once daily for Sleep-Onset Insomnia [Active]; butorphanol bb tartrate 10 mg/mL nasal spry 1 spray as needed for Migraine [Active]; carvedilol Oral 1 tab 2 times per day [Active]; clonazepam 1 mg Oral tab 1 tab 2 times per day [Active]; metformin 500 mg Oral tab 1 tab 2 times per day [Active]; tizanidine 2 mg Oral cap 2 caps twice a day [Active]; - PMHx: 01:15 Anxiety; Arthritis; Chrohns; Chronic pain; Diabetes - NIDDM; Dramatic migraine events; bb Gastroparesis; High Cholesterol; Hypertension; insomnia; Migraines; Pancreatitis; spinal stenosis; - Immunization history:: Adult Immunizations up to date, Client reports receiving the 1st dose of the Covid vaccine. - Social history:: Smoking status: Patient denies any tobacco usage or history of. ROS: 03:15 Constitutional: Negative for fever, chills, and weight loss, Eyes: Negative for injury, mh7 pain, redness, and discharge, ENT: Negative for injury, pain, and discharge, Neck: Negative for injury, pain, and swelling, Cardiovascular: Negative for chest pain, palpitations, and edema, Respiratory: Negative for shortness of breath, cough, wheezing, and pleuritic chest pain, Back: Negative for injury and pain, : Negative for injury, bleeding, discharge, and swelling, MS/Extremity: Negative for injury and deformity, Skin: Negative for injury, rash, and discoloration, Neuro: Negative for headache, weakness, numbness, tingling, and seizure, Psych: Negative for depression, anxiety, suicide ideation, homicidal ideation, and hallucinations, Allergy/Immunology: Negative for hives, rash, and allergies, Endocrine: Negative for neck swelling, polydipsia, polyuria, polyphagia, and marked weight changes, Hematologic/Lymphatic: Negative for swollen nodes, abnormal bleeding, and unusual bruising. Exam: 03:15 Constitutional: This is a well developed, well nourished patient who is awake, alert, mh7 and in no acute distress. Head/Face: Normocephalic, atraumatic. Eyes: Pupils equal round and reactive to light, extra-ocular motions intact. Lids and lashes normal. Conjunctiva and sclera are non-icteric and not injected. Cornea within normal limits. Periorbital areas with no swelling, redness, or edema. Neck: Trachea midline, no thyromegaly or masses palpated, and no cervical lymphadenopathy. Supple, full range of motion without nuchal rigidity, or vertebral point tenderness. No Meningismus. Chest/axilla: Normal chest wall appearance and motion. Nontender with no deformity. No lesions are appreciated. Cardiovascular: Regular rate and rhythm with a normal S1 and S2. No gallops, murmurs, or rubs. Normal PMI, no JVD. No pulse deficits. Respiratory: Lungs have equal breath sounds bilaterally, clear to auscultation and percussion. No rales, rhonchi or wheezes noted. No increased work of breathing, no retractions or nasal flaring. 03:15 Back: No spinal tenderness. No costovertebral tenderness. Full range of motion. Skin: Warm, dry with normal turgor. Normal color with no rashes, no lesions, and no evidence of cellulitis. MS/ Extremity: Pulses equal, no cyanosis. Neurovascular intact. Full, normal range of motion. Neuro: Awake and alert, GCS 15, oriented to person, place, time, and situation. Cranial nerves II-XII grossly intact. Motor strength 5/5 in all extremities. Sensory grossly intact. Cerebellar exam normal. Normal gait. Psych: Awake, alert, with orientation to person, place and time. Behavior, mood, and affect are within normal limits. 03:15 Abdomen/GI: Inspection: abdomen appears normal, Bowel sounds: normal, in all quadrants, Palpation: moderate abdominal tenderness, in the suprapubic area, right lower quadrant and left lower quadrant, mass, is not appreciated, rebound tenderness, is not appreciated, voluntary guarding, is not appreciated, involuntary guarding, is not appreciated, no appreciated organomegaly, Indicators: McBurney's point is not tender, Turcios's sign is negative, Rovsing's sign is negative, Obturator sign is negative, Psoas sign is negative, Liver: no appreciated palpable abnormalities, Hernia: not appreciated. 07:18 ECG was reviewed by the Attending Physician. [facility] Vital Signs: 01:12 BP 176 / 106; Pulse 110; Resp 20 S; Temp 100(O); Pulse Ox 100% on R/A; Weight 94.8 kg bb (R); Height 5 ft. 7 in. (170.18 cm) (R); Pain 8/10; 02:10 BP 144 / 89; Pulse 102; Resp 20; Pulse Ox 99% on R/A; tt3 04:15 BP 154 / 94; Pulse 105; Resp 20 S; Temp 98.4(O); Pulse Ox 96% on R/A; bb 07:54 BP 163 / 101; Pulse 98; Resp 19; Pulse Ox 97% on R/A; ap3 01:12 Body Mass Index 32.73 (94.80 kg, 170.18 cm) MDM: 07:11 Transition of care: After a detail discussion of the patient's case, care is 7 transferred to Kam Parker MD. 07:12 Patient medically screened. [facility] 07:12 Differential diagnosis: Nonspecific abd pain, gastritis, pancreatitis, gastroenteritis. [facility] Data reviewed: vital signs, nurses notes, lab test result(s), EKG, radiologic studies, plain films. Data interpreted: hall monitor: rate is 105 beats/min, rhythm is regular, Pulse oximetry: is not applicable for this patient encounter. Test interpretation: by ED physician or midlevel provider: ECG, plain radiologic studies. Counseling: I had a detailed discussion with the patient and/or guardian regarding: the historical points, exam findings, and any diagnostic results supporting the discharge/admit diagnosis, lab results, radiology results, the need to transfer to another facility, for higher level of care, [facility] does not immediately have the required specialist. 10/20 01:43 Order name: Urine Dipstick-Ancillary; Complete Time: 04:45 [facility] 10/20 01:54 Order name: Urine --Ancillary (enter results); Complete Time: 04:45 tt3 10/20 02:45 Order name: Basic Metabolic Panel; Complete Time: 04:45 10/20 02:45 Order name: CBC with Diff; Complete Time: 04:45 10/20 02:45 Order name: Hepatic Function; Complete Time: 04:45 10/20 02:45 Order name: Lipase; Complete Time: 04:45 10/20 04:51 Order name: CT Abd/Pelvis - IV Contrast Only 10/20 06:53 Order name: Type And Screen [facility] 10/20 07:03 Order name: COVID-19 : Document "Date of Symptom Onset" if Symptomatic. 10/20 09:15 Order name: SARS-COV-2 RT PCR [facility] 10/20 02:45 Order name: IV Saline Lock; Complete Time: 02:55 10/20 02:45 Order name: Labs collected and sent; Complete Time: 02:55 10/20 07:02 Order name: EKG - Nurse/Tech; Complete Time: 07:19 [facility] EC:18 Rate is 100 beats/min. Rhythm is regular. QRS Blaine is Normal. VA interval is normal. zoe QRS interval is normal. QT interval is normal. No Q waves. T waves are Normal. No ST changes noted. Clinical impression: NSR w/ Non-specific ST/T Changes and No evidence of ischemia. Interpreted by me. Reviewed by me. Administered Medications: 03:31 Drug: Dilaudid (HYDROmorphone) 1 mg Route: IVP; Site: left antecubital; ea 04:00 Follow up: Response: No adverse reaction ea 03:31 Drug: Phenergan (promethazine) 12.5 mg Route: IVP; Site: left antecubital; ea 04:00 Follow up: Response: No adverse reaction ea 04:56 Drug: Pepcid (famotidine) 20 mg Route: IVP; Site: left antecubital; ea 05:44 Follow up: Response: No adverse reaction ea 05:43 Drug: Dilaudid (HYDROmorphone) 1 mg Route: IVP; Site: left antecubital; ea 06:26 Follow up: Response: No adverse reaction; Pain is decreased ea 06:19 Drug: NS 0.9% 1000 ml Route: IV; Rate: 1000 ml; Site: left antecubital; ea 07:37 Follow up: IV Status: Completed infusion; IV Intake: 1000ml ap3 07:37 Drug: ProTONIX (pantoprazole) 80 mg Route: IVP; Site: left antecubital; ap3 08:13 Follow up: Response: No adverse reaction ap3 08:00 Drug: ProTONIX (pantoprazole) 8 mg/hr Route: IV; Rate: 25 ml/hr; Site: left antecubital;ap3 11:06 Follow up: IV Status: Infusion continued upon transfer ap3 08:30 Drug: Flagyl (metroNIDAZOLE) 500 mg Volume: 100 ml; Route: IVPB; Rate: 200 ml/hr; ap3 Infused Over: 30 mins; Site: left antecubital; 08:58 Follow up: IV Status: Completed infusion ap3 08:30 Drug: Dilaudid (HYDROmorphone) 1 mg Route: IVP; Site: left antecubital; ap3 08:58 Follow up: Response: No adverse reaction; Pain is decreased ap3 08:30 Drug: Phenergan (promethazine) 12.5 mg Route: IVP; Site: left antecubital; ap3 08:57 Follow up: Response: No adverse reaction; Nausea is decreased ap3 08:31 Drug: NS 0.9% 1000 ml Route: IV; Rate: 125 ml/hr; Site: left antecubital; ap3 11:05 Follow up: Response: No adverse reaction; IV Status: Completed infusion ap3 11:05 Follow up: IV Status: Infusion continued upon transfer ap3 08:31 Drug: Cipro (ciprofloxacin) 400 mg Volume: 200 ml; Route: IVPB; Infused Over: 60 mins; ap3 Site: left antecubital; 11:05 Follow up: Response: No adverse reaction ap3 11:05 Follow up: Response: No adverse reaction ap3 11:06 Follow up: IV Status: Completed infusion ap3 11:19 Drug: Insulin Regular Human 10 units {Co-Signature: ap3 (Deanna Barajas RN).} Route: bp IVP; Site: left antecubital; Disposition Summary: 10/20/20 07:18 Transfer Ordered Transfer Location: [facility] zoe Reason: Higher level of care zoe Condition: Stable zoe Problem: new zoe Symptoms: have improved zoe Accepting Physician: celina moscoso(10/20/20 11:20) ap3 Diagnosis - Vomiting zoe - GI Bleed/ Gastrointestinal hemorrhage, unspecified zoe - Crohn's disease, unspecified, without complications zoe - Type 2 diabetes mellitus with hyperglycemia - poorly controlled(10/20/20 08:24) zoe - Gastroparesis zoe Forms: - Medication Reconciliation Form zoe - SBAR form zoe Signatures: Dispatcher [employer] EDMS Kam Parker MD MD cha Ballard, Brenda RN Ruthann Davis RN Real Hyman ea, RN RN bp Prokisch, Amanda, RN RN ap3 Justin Oshea MD MD [facility] Deanna Barajas RN ap3 Corrections: (The following items were deleted from the chart) 08:05 07:04 CORONAVIRUS ordered. EDMS EDMS 08:24 07:18 [facility] zoe zoe 08:24 07:18 Type 2 diabetes mellitus with hyperglycemia zoe oze 08:36 08:24 [facility] zoe zoe 08:36 08:36 [facility] zoe zoe 11:20 08:36 [facility] zoe ap3
[2020-10-20] MEDS ORDERED: PANTOPRAZOLE 40 MG INJ ONE (07:39)
[2020-10-20] MEDS ORDERED: PANTOPRAZOLE INJ 80 MG in NA CHLORIDE 0.9% 250 ML IV SCH (08:00)
[2020-10-20] MEDS ORDERED: CIPROFLOXACIN 400mg IV 400 MG/200 ML BAG IV ONE (08:40)
[2020-10-20] MEDS ORDERED: METRONIDAZOLE 500mg IVPB 500 MG/100 ML BAG IV ONE (08:40)
[2020-10-20] MEDS ORDERED: HYDROMORPHONE HCL 2 MG/ML inj ONE (08:40)
[2020-10-20] MEDS ORDERED: INSULIN -REGULAR HUMAN 50 UNIT/0.5 ML ML ONE (09:12)
[2020-10-20 12:07] VITALS: TEMP 98.4
[2020-10-20 12:08] VITALS: BP 163/101; O2SAT 97
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
--- NOTE | 2020-10-23 12:42 | EKG ---
Test Date: 2020-10-20 Test Time: 07:11:21 Lining Stamper: RODO MEASUREMENT RESULTS: Intervals: Rate: 100 OK: 176 QRSD: 78 QT: 348 QTc: 448 Hagan: P: 51 OK: 176 QRS: 31 T: 32 INTERPRETIVE STATEMENTS: Normal sinus rhythm Low voltage QRS Cannot rule out Anterior infarct, age undetermined Abnormal ECG Compared to ECG 07/21/2020 20:57:55 Low QRS voltage now present Myocardial infarct finding still present Electronically Signed On 10-23-20 12:37:57 CDT by Surendra Zhang
== END 2020-10-20 11:20 | disposition short-term general hospital (02) ==
LOC: ER 00:32
DX: K92.2 Gastrointestinal hemorrhage, unspecified (principal); K50.90 Crohn's disease, unspecified, without complications; E11.65 Type 2 diabetes mellitus with hyperglycemia; E11.43 Type 2 diabetes mellitus with diabetic autonomic (poly)neuropathy; K31.84 Gastroparesis; Z20.822 Contact with and (suspected) exposure to COVID-19
CPT/HCPCS: 96365; 96367; 96361; 93005; 85025; 80048; 36415; 86900; 86850; 81025; 86901; 80076; 81003; 83690; 74177; 96375; 99285; U0003; Q9967; J2550 ×3; C9113; J1170 ×3; J7050; J7030 ×2; J0744

== ENCOUNTER 2020-10-24 10:25 | Emergency (ER) | payer OTHER ==
--- OUTSIDE RECORDS SUMMARY | 2020-10-24 10:29 | XMS REPORT | Continuity of Care Document ---
:1970 Author Organization [facility] t Address 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, F Attending Clinician Doctor Unassigned, Name Attending [...] Tobacco use and 2017-08-28 2017-08-28 Never used [facility] - exposure 00:00:00 00:00:00 [facility] Smoking Status Start Date Stop Date Source Never smoker [facility] Medications Ordered Filled Start Stop Current Ordering [...] Date/Time Type Type Clinicians Facility Department ID 2020-10-20 Inpatient U [facility] MED 1205 Mem oria 11:58:00 [facility] 2020-08-05 2020-08-05 [facility] [id number] 20:44:00 23:55:00 Gopi Suarez [id number] [place] 4.2.7.2.686 [place] [id number] 2020-07-22 2020-07-22 Emergency [facility] [id number] 17:17:00 20:14:00 Gopi Suarez [id number] [place] [id number] [place] [id number] 2020-06-17 2020-06-17 Orders Doctor IQRA [id number] 00:00:00 00:00:00 Only Unassigned, GREGORY [id number] [facility] 4.2.7.2.686 [id number] 2020-05-19 2020-05-19 Emergency [facility] [id number] 15:45:00 18:07:00 Pastora [place]ielton [id number] [place] [id number] [place] [id number] 2019-08-21 2019-08-22 Emergency [facility] [id number] 23:48:04 02:26:00 Jose Cruz Nica [place] [id number] [place] 4.2.7.2.686 [place] [id number] 2019-08-06 2019-08-06 Telephone IQRA Barragan [id number] 00:00:00 00:00:00 Apoorva JENKINS [id number] [facility] 42.7.2.686 [id number] 2019-08-06 2019-08-06 Telephone IQRA Box [id number] 00:00:00 00:00:00 Jinny JENKINS [address].13.[address] [id number] 2019-08-05 2019-08-05 Telephone IQRA Box [id number] 00:00:00 00:00:00 Jinny JENKINS [id number] [facility] [id number] [id number] Results Test Description Test Time Test Comments Results Result Comments Source POCT-GLUCOSE METER 2017-09-01 17:07:00 Test Item Value Reference Range Interpretation Comme nts POC-GLUCOSE METER ([facility]) (test 298 mg/dL 70-110 [address] = 1538) [facility] 7703 0 POCT-GLUCOSE [id number] 12:11:00 Test Item Value Reference Range Interpretation Comments POC-GLUCOSE METER 331 mg/dL 70-110 H Notified Rina Low MD/TESTED ([facility]) (test code = AT [address] 1538) [facility] 7703 0 POCT-GLUCOSE [id number] 10:55:00 Test Item Value Reference Range Interpretation Comments POC-GLUCOSE METER 365 mg/dL 70-110 H TESTED AT [place] [address] ([facility]) (test code = ELIZABETH Flynn [facility] 1538) [id number] POCT-GLUCOSE [id number] 08:44:00 Test Item Value Reference Range Interpretation Comments POC-GLUCOSE METER 291 mg/dL 70-110 H TESTED AT [place] [address] ([facility]) (test code = ELIZABETH Flynn [facility] 1538) [address] LIPID [id number] 05:56:00 Test Item Value Reference Range Interpretation Comments TRIGLYCERIDES ([facility]) (test code = 279 mg/dL 540) CHOLESTEROL ([facility]) (test code = 119 mg/dL 631) HDL CHOLESTEROL ([facility]) (test code 22 mg/dL = 976) LDL CHOLESTEROL CALCULATED ([facility]) 41 mg/dL (test code = 633) Triglyceride Reference Range: Low Risk <150 Borderline 150-199 High Risk 200-499 Very High Risk >=500Cholesterol Reference Range: Low Risk <200 Borderline 200-239 High Risk >240HDL Cholesterol Reference Range: Low Risk >=60 High Risk <40LDL Cholesterol Reference Range: Optimal <100 Near Optimal 100-129 Borderline 130-159 High 160-189 Very High >=190POCT-GLUCOSE [id number] 21:50:00 Test Item Value Reference Range Interpretation Comments POC-GLUCOSE METER 318 mg/dL 70-110 H TESTED AT [place] [address] ([facility]) (test code = ELIZABETH Flynn [facility] 1538) [id number] POCT-GLUCOSE [id number] 18:04:00 Test Item Value Reference Range Interpretation Comments POC-GLUCOSE METER 238 mg/dL 70-110 H TESTED AT [place] [address] ([facility]) (test code = ELIZABETH Flynn [facility] 1538) [address] POCT-GLUCOSE [id number] 12:22:00 Test Item Value Reference Range Interpretation Comments POC-GLUCOSE METER 290 mg/dL 70-110 H TESTED AT [place] [address] ([facility]) (test code = ELIZABETH Flynn [facility] 1538) [address] POCT-GLUCOSE [id number] 09:20:00 Test Item Value Reference Range Interpretation Comments POC-GLUCOSE METER 293 mg/dL 70-110 H TESTED AT [place] [address] ([facility]) (test code = ELIZABETH Flynn [facility] 1538) [address] POCT-GLUCOSE [id number] 21:00:00 Test Item Value Reference Range Interpretation Comments POC-GLUCOSE METER 225 mg/dL 70-110 H TESTED AT [place] [address] ([facility]) (test code = ELIZABETH Flynn [facility] 1538) [address] CT, CAROTID, [id number] 18:01:00FINAL REPORT CT angiogram of the upper [...] Petersen Verified Date/Time: 08/30/2017 18:01:31 Reading Location: [address] Neuro Reading Room , [facility] [id number] 18:01:00FINAL REPORT CT angiogram of the upper [...] Petersen Verified Date/Time: 08/30/2017 18:01:31 Reading Location: [address] Neuro Reading Room -GLUCOSE [id number] 17:21:00 Test Item Value Reference Range Interpretation Comments POC-GLUCOSE METER 256 mg/dL 70-110 H TESTED AT [place] [address] ([facility]) (test code = [facility] 1538) [id number] POCT-GLUCOSE [id number] 12:00:00 Test Item Value Reference Range Interpretation Comments POC-GLUCOSE METER 289 mg/dL 70-110 H TESTED AT [place] [address] ([facility]) (test code = [facility] 1538) [address] BASIC METABOLIC [id number] 10:12:00 Test Item Value Reference Range Interpretation [...] NOT APPLICABLE FOR DIALYSIS PATIEN TS. POCT-GLUCOSE [id number] 08:42:00 Test Item Value Reference Range Interpretation Comments POC-GLUCOSE METER 259 mg/dL 70-110 H TESTED AT [place] [address] ([facility]) (test code = [facility] 1538) [id number] TROPONIN [id number] 06:14:00 Test Item Value Reference Range Interpretation [...] = 2801) RAD, CHEST, 1 VIEW, NON [id number] 04:23:00Reason for exam:->chest painShould this be performed at the bedside?->YesFINAL REPORT Comparison examination: None No pneumothorax, focal pulmonary co nsolidation, or significant pleural effusion. Normal cardiomediastinal contours. Normal skeleton and soft tissues. Impression: No acute abnormality. Signed: Ervin Jenkins Verified Date/Time: 08/30/2017 04:23:04 Reading Location: [address] Reading Room POCT-GLUCOSE [id number] 21:18:00 Test Item Value Reference Range Interpretation Comments POC-GLUCOSE METER 151 mg/dL 70-110 H TESTED AT [place] [address] ([facility]) (test code = [facility] 1538) [id number] POCT-GLUCOSE [id number] 17:59:00 Test Item Value Reference Range Interpretation Comments POC-GLUCOSE METER 146 mg/dL 70-110 H TESTED AT [place] [address] ([facility]) (test code = [facility] 1538) [address]77 HEMOGLOBIN [id number] 15:56:00 Test Item Value Reference Range Interpretation Comments HEMOGLOBIN A1C ([facility]) (test code = 13.7 % 4.3-6.1 H 368) CT, BRAIN, WITHOUT [id number] 14:52:00FINAL REPORT CT head without contrast. Comparisons: [...] Petersen Verified Date/Time: 08/29/2017 14:52:09 Reading Location: [address] Neuro Reading Room POCT-GLUCOSE [id number] 14:17:00 Test Item Value Reference Range Interpretation Comments POC-GLUCOSE METER 423 mg/dL 70-110 Notified R N MD/TESTED ([facility]) (test code = AT [facility] [address] [facility] 1538) [facility] 7703 0 VITAMIN [id number] 06:48:00 Test Item Value Reference Range Interpretation Comments VITAMIN B12 (BEAKER) (test code = 300 pg/mL 213-816 774) TSH/FREE T4 IF [id number] 06:48:00 Test Item Value Reference Range Interpretation Comments THYROID STIMULATING HORMONE 1.55 uIU/mL 0.35-4.94 ([facility]) (test code = 772) CBC W/PLT COUNT & AUTO [id number] 05:10:00 Test Item Value Reference Range Interpretation [...] (BEAKER) (test code = 2801) URINALYSIS W/ [id number] 23:32:00 Test Item Value Reference Range Interpretation [...] Occasional SOURCE(BEAKER) (test code = 2795) TROPONIN [id number] 23:12:00 Test Item Value Reference Range Interpretation [...] acute neurological disease, and persistent tachyarrhythmia.BASIC METABOLIC [id number] 23:05:00 Test Item Value Reference Range Interpretation [...] NOT APPLICABLE FOR DIALYSIS PATIEN TS. POCT-GLUCOSE [id number] 20:49:00 Test Item Value Reference Range Interpretation Comments POC-GLUCOSE METER 376 mg/dL 70-110 H Notified Rina Low MD/MIKKI (JESSICA) (test code = AT [facility] [address] [address]) [facility] 7703 0
[2020-10-24 12:26] LABS: Urine Blood 3+ (Negative); Urine Glucose 2+ (Negative); Urine Protein Negative (Negative)
[2020-10-24 14:23] LABS: Absolute Lymphocytes (CBC) 2.8 K/uL (0.7-4.9); Basophils % 0.4 % (0-1.3); Hematocrit 42.5 % (36.0-45.0); MPV 8.5 fL (7.6-11.3); RBC Red Blood Cell Count 5.31 M/uL (3.86-4.86)
[2020-10-24] MEDS ORDERED: PROMETHAZINE INJ 25 MG/ML AMP ONE (14:31)
[2020-10-24] MEDS ORDERED: FENTANYL CITR 100 MCG/2 ML ONE ×2 (14:32→16:57)
[2020-10-24] MEDS ORDERED: NA CHLORIDE 0.9% 1,000 ML ONE (14:32)
[2020-10-24] MEDS ORDERED: FAMOTIDINE 20 MG/2 ML VIAL IV ONE (14:32)
[2020-10-24 14:38] LABS: ALT/SGPT 29 U/L (12-78); AST/SGOT 11 U/L (15-37); Albumin 3.9 g/dL (3.4-5.0); Alkaline Phosphatase 116 U/L (45-117); BUN Blood Urea Nitrogen 15 mg/dL (7-18); Bicarbonate 25 mmol/L (21-32); Bilirubin Direct < 0.1 mg/dL (0-0.2); Bilirubin Total 0.3 mg/dL (0.2-1.0); Glucose Level 357 mg/dL (74-106); Lipase 288 U/L (73-393); Potassium 3.5 mmol/L (3.5-5.1); Protein, Total 8.2 g/dL (6.4-8.2); Sodium Level 137 mmol/L (136-145)
--- NOTE | 2020-10-24 16:45 | EDPHYS ---
Physician Documentation [facility] Name: Elly Clarke Age: 50 yrs Sex: Female : 1970 Arrival Date: 10/24/2020 Time: 10:28 Bed 28 Private MD: ED Physician Wil Patterson HPI: 10/24 14:05 This 50 yrs old Female presents to ER via Ambulatory with complaints of cp Abdominal Pain, Nausea/Vomiting. 14:05 The patient presents to the emergency department with nausea, that is moderate, cp vomiting, that is continuous, diarrhea, that is continuous, abdominal pain, of the abdomen diffusely. 14:05 Onset: The symptoms/episode began/occurred 1 week(s) ago. cp 14:05 Possible causes: flare up of bowel problem, Crohn's disease. 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/A - Hysterectomy kg Historical: - Allergies: 11:26 (Hives); kg 11:26 Morphine (RACING HEART); kg 11:26 Demerol (HEART RACING); kg 11:26 Compazine (Seizures); kg 11:26 Claritin (insomnia); kg - Home Meds: 11:26 Ambien 10 mg Oral tab 1 tab once daily for Sleep-Onset Insomnia [Active]; butorphanol kg tartrate 10 mg/mL nasal spry 1 spray as needed for Migraine [Active]; carvedilol Oral 1 tab 2 times per day [Active]; tizanidine 2 mg Oral cap 2 caps twice a day [Active]; clonazepam 1 mg Oral tab 1 tab 2 times per day [Active]; 11:30 Humulin N Pen 100 unit/mL (3 mL) Sub-Q inpn 5 units after meals [Active]; insulin kg detemir U-100 100 unit/mL (3 mL) subcutaneous inpn 30 unit twice a day [Active]; amlodipine 10 mg tab 1 tab [Active]; metformin 500 mg Oral tab 1 tab 2 times per day [Active]; Flagyl 500 mg Oral tab 1 tab 3 times per day [Active]; Inderal LA 60 mg Oral Cs24 1 cap once daily [Active]; Depakote 250 mg Oral TbEC 1 tab [Active]; Cipro 500 mg Oral tab 1 tab TID [Active]; Celexa 20 mg Oral tab 1 tab once daily [Active]; Abilify 30 mg oral tab 1 tab [Active]; - PMHx: 11:30 spinal stenosis; Pancreatitis; Migraines; insomnia; Hypertension; High Cholesterol; kg Gastroparesis; Dramatic migraine events; Diabetes - NIDDM; Chronic pain; Chrohns; Arthritis; Anxiety; - PSHx: 11:30 Cholecystectomy; Total abdominal hysterectomy; Tonsillectomy; Knee sx x 2; tumor kg removed from septum; - Immunization history:: Adult Immunizations not up to date, Client reports receiving the 1st dose of the Covid vaccine, Sai \\T\\ Sai . - Social history:: Smoking status: Patient denies any tobacco usage or history of. ROS: 14:10 Constitutional: Negative for body aches, chills, fever. cp 14:10 Eyes: Negative for injury, pain, redness, and discharge. cp 14:10 ENT: Negative for ear pain, sore throat, difficulty swallowing, difficulty handling secretions. 14:10 Cardiovascular: Negative for chest pain. 14:10 Respiratory: Negative for cough, shortness of breath, wheezing. 14:10 Abdomen/GI: Positive for abdominal pain, nausea, vomiting, and diarrhea, Negative for constipation, hematemesis, black/tarry stool, rectal bleeding. 14:10 Back: Negative for radiated pain. 14:10 Neuro: Negative for altered mental status, headache, weakness. 14:10 All other systems are negative. Exam: 14:10 Head/Face: Normocephalic, atraumatic. cp 14:10 Constitutional: The patient appears in no acute distress, alert, awake, non-toxic, well developed, well nourished, obese. 14:10 Eyes: Periorbital structures: appear normal, Conjunctiva: normal, no exudate, no injection, Sclera: no appreciated abnormality, Lids and lashes: appear normal, bilaterally. 14:10 ENT: External ear(s): are unremarkable, Nose: is normal, Mouth: Lips: moist, Oral mucosa: moist, Posterior pharynx: Airway: no evidence of obstruction, patent. 14:10 Chest/axilla: Inspection: normal, Palpation: is normal, no crepitus, no tenderness. cp 14:10 Cardiovascular: Rate: tachycardic, Rhythm: regular. 14:10 Respiratory: the patient does not display signs of respiratory distress, Respirations: normal, no use of accessory muscles, no retractions, labored breathing, is not present, Breath sounds: are clear throughout, no decreased breath sounds, no stridor, no wheezing. 14:10 Abdomen/GI: Inspection: abdomen appears normal, Bowel sounds: active, all quadrants, cp Palpation: soft, in all quadrants, severe abdominal tenderness, in all quadrants, rebound tenderness, is not appreciated, voluntary guarding, is elicited in all quadrants. 14:10 Back: CVA tenderness, is absent. 14:10 Skin: no rash present. 14:10 Neuro: Orientation: to person, place \\T\\ time. Mentation: is normal. Vital Signs: 08:00 BP 133 / 94; Pulse 109; Resp 20; Temp 100.0(O); Pulse Ox 99% on R/A; Weight 97.52 kg kg (M); Height 5 ft. 7 in. (170.18 cm) (R); 13:41 BP 173 / 97; Pulse 100; Resp 16; Pulse Ox 100% ; vg1 15:09 BP 141 / 94; Pulse 97; Resp 16; Pulse Ox 100% ; vg1 16:44 BP 140 / 90; Pulse 92; Resp 16; Pulse Ox 100% ; vg1 17:00 BP 142 / 88; Pulse 89; Resp 16; Pulse Ox 100% ; vg1 08:00 Body Mass Index 33.67 (97.52 kg, 170.18 cm) kg MDM: 13:31 Patient medically screened. cp 14:00 Differential diagnosis: gastritis, pancreatitis, appendicitis, diverticulitis, viral cp gastroenteritis, gastroenteritis. 16:44 Data reviewed: vital signs, nurses notes, lab test result(s). 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 Response to treatment: VSS. Labs reviewed and negative for significant findings. Patient has been seen in this ED multiple times in the past for similar complaints. Will discharge to home for continued monitoring. 10/24 11:21 Order name: COVID-19 : Document "Date of Symptom Onset" if Symptomatic. kg 10/24 12:25 Order name: Urine Dipstick-Ancillary; Complete Time: 15:34 EDMS 10/24 15:34 Interpretation: Normal except: UGLUC 2+; UKET 1+; UBLD 3+. cp 10/24 13:31 Order name: Basic Metabolic Panel; Complete Time: 15:34 cp 10/24 15:34 Interpretation: Normal except: GLUC 357; GFR 75. cp 10/24 13:31 Order name: CBC with Diff; Complete Time: 15:34 cp 10/24 13:31 Order name: Hepatic Function; Complete Time: 15:34 cp 10/24 13:31 Order name: Lipase; Complete Time: 15:34 cp 10/24 13:31 Order name: IV Saline Lock; Complete Time: 14:02 cp 10/24 13:31 Order name: Labs collected and sent; Complete Time: 14:02 cp Administered Medications: 15:13 Drug: NS 0.9% 1000 ml Route: IV; Rate: 1000 ml; Site: left antecubital; vg1 17:13 Follow up: IV Status: Completed infusion; IV Intake: 1000ml vg1 15:13 Drug: Phenergan (promethazine) 25 mg Route: IVP; Site: left antecubital; vg1 16:30 Follow up: Response: Nausea is decreased vg1 15:15 Drug: Pepcid (famotidine) 20 mg Route: IVP; Site: left antecubital; vg1 16:30 Follow up: Response: No adverse reaction vg1 15:17 Drug: fentaNYL (PF) 25 mcg {Note: rass 0.} Route: IVP; Site: left antecubital; vg1 16:30 Follow up: Response: No adverse reaction; Pain is unchanged, physician notified vg1 16:36 Drug: NovoLIN R (insulin regular human) 10 units {Co-Signature: ss (Akiko Meyers RN).} vg1 Route: Sub-Q; Site: right lower abdomen; 17:13 Follow up: Response: No adverse reaction vg1 16:37 Drug: fentaNYL (PF) 25 mcg {Note: rass 0.} Route: IVP; Site: left antecubital; vg1 17:13 Follow up: Response: No adverse reaction; Pain is decreased vg1 16:41 Not Given (Patient Refused; Pt stated "I cant have Ativan, makes me all wired up"): vg1 Ativan (LORazepam) 0.5 mg PO once Disposition Summary: 10/24/20 16:44 Discharge Ordered Location: Home cp Problem: an ongoing problem cp Symptoms: have improved cp Condition: Stable cp Diagnosis - Abdominal pain, unspecified cp - Nausea with vomiting, unspecified cp Followup: cp - With: Private Physician - When: 1 - 2 days - Reason: Recheck today's complaints Discharge Instructions: - Discharge Summary Sheet cp - Abdominal Pain, Adult cp - Nausea and Vomiting, Adult cp Forms: - Medication Reconciliation Form cp - Thank You Letter cp - Antibiotic Education cp - Prescription Opioid Use cp Prescriptions: - promethazine 25 mg Oral Tablet - take 1 tablet by ORAL route every 6 hours As needed; 20 tablet; Refills: 0, cp Product Selection Permitted Addendum: 10/27/2020 07:02 Co-signature as Attending Physician, Wil Patterson MD. r n Signatures: Dispatcher [employer] EDMS Wil Patterson MD MD rn Kam Charles PA PA cp Fátima Johnson RN RN vg1 Debbie Rodríguez RN RN kg Akiko Meyers RN ss Corrections: (The following items were deleted from the chart) 10/24 11:36 11:26 Home Meds: metformin 500 mg Oral tab 1 tab 2 times per day; kg kg
--- NOTE | 2020-10-24 16:45 | ER ---
Nurse's Notes [facility] Name: Elly Clarke Age: 50 yrs Sex: Female : 1970 Arrival Date: 10/24/2020 Time: 10:28 Bed 28 Private MD: Diagnosis: Abdominal pain, unspecified;Nausea with vomiting, unspecified Presentation: 10/24 08:00 Initial Sepsis Screen: Does the patient meet any 2 criteria? No. Patient's initial kg sepsis screen is negative. Does the patient have a suspected source of infection? No. Patient's initial sepsis screen is negative. Risk Assessment: Do you want to hurt yourself or someone else? Patient reports no desire to harm self or others. Onset of symptoms was October 18, 2020. 08:00 Acuity: HANNAH 3 kg 11:21 Chief complaint: Patient states: Abdominal pain, vomiting blood, diarrhea starting kg 10/18. Pt was in the ER 10/19 and transferred to [place]. D/C'd from [place] Sunday 10/22 and diagnosed with Crohns. Pt started taking Cipro and Flagyl and hasnt gotten any better. Coronavirus screen: Client denies travel out of the [place] in the last 14 days. At this time, unable to obtain information related to travel outside the [place] At this time, the client does not indicate any symptoms associated with coronavirus-19. Ebola Screen: Patient negative for fever greater than or equal to 101.5 degrees Fahrenheit, and additional compatible Ebola Virus Disease symptoms Patient denies exposure to infectious person. Patient denies travel to an Ebola-affected area in the 21 days before illness onset. 11:21 Method Of Arrival: Ambulatory kg Triage Assessment: 11:30 General: Appears uncomfortable, Behavior is calm, cooperative, appropriate for age, kg restless. Pain: Complains of pain in suprapubic area. GI: Reports lower abdominal pain, diarrhea, nausea, vomiting. 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:38 LMP N/A - Hysterectomy kg Historical: - Allergies: 11:26 (Hives); kg 11:26 Morphine (RACING HEART); kg 11:26 Demerol (HEART RACING); kg 11:26 Compazine (Seizures); kg 11:26 Claritin (insomnia); kg - Home Meds: 11:26 Ambien 10 mg Oral tab 1 tab once daily for Sleep-Onset Insomnia [Active]; butorphanol kg tartrate 10 mg/mL nasal spry 1 spray as needed for Migraine [Active]; carvedilol Oral 1 tab 2 times per day [Active]; tizanidine 2 mg Oral cap 2 caps twice a day [Active]; clonazepam 1 mg Oral tab 1 tab 2 times per day [Active]; 11:30 Humulin N Pen 100 unit/mL (3 mL) Sub-Q inpn 5 units after meals [Active]; insulin kg detemir U-100 100 unit/mL (3 mL) subcutaneous inpn 30 unit twice a day [Active]; amlodipine 10 mg tab 1 tab [Active]; metformin 500 mg Oral tab 1 tab 2 times per day [Active]; Flagyl 500 mg Oral tab 1 tab 3 times per day [Active]; Inderal LA 60 mg Oral Cs24 1 cap once daily [Active]; Depakote 250 mg Oral TbEC 1 tab [Active]; Cipro 500 mg Oral tab 1 tab TID [Active]; Celexa 20 mg Oral tab 1 tab once daily [Active]; Abilify 30 mg oral tab 1 tab [Active]; - PMHx: 11:30 spinal stenosis; Pancreatitis; Migraines; insomnia; Hypertension; High Cholesterol; kg Gastroparesis; Dramatic migraine events; Diabetes - NIDDM; Chronic pain; Chrohns; Arthritis; Anxiety; - PSHx: 11:30 Cholecystectomy; Total abdominal hysterectomy; Tonsillectomy; Knee sx x 2; tumor kg removed from septum; - Immunization history:: Adult Immunizations not up to date, Client reports receiving the 1st dose of the Covid vaccine, Sai \\T\\ Sai . - Social history:: Smoking status: Patient denies any tobacco usage or history of. Screenin:37 Abuse screen: Denies threats or abuse. Denies injuries from another. Nutritional kg screening: No deficits noted. Tuberculosis screening: No symptoms or risk factors identified. Fall Risk None identified. Assessment: 13:40 General: Appears in no apparent distress. uncomfortable, Behavior is calm, cooperative. vg1 Pain: Complains of pain in suprapubic area Pain currently is 10 out of 10 on a pain scale. Pain began 6 days ago Noted to be crying, grimacing, guarding, moaning. Neuro: Level of Consciousness is awake, alert, obeys commands, Oriented to person, place, time, situation. Cardiovascular: Patient's skin is warm and dry. Respiratory: Airway is patent Respiratory effort is even, unlabored. GI: Abdomen is round non-distended, Stools are reported to be loose, diarrhea. Abdomen is tender to palpation in suprapubic area Reports diarrhea, nausea, vomiting, blood in vomit. : No signs and/or symptoms were reported regarding the genitourinary system. EENT: No signs and/or symptoms were reported regarding the EENT system. Derm: Skin is intact, Skin is pink, warm \\T\\ dry. Musculoskeletal: Circulation, motion, and sensation intact. 14:45 Reassessment: Patient appears in no apparent distress at this time. No changes from vg1 previously documented assessment. Patient and/or family updated on plan of care and expected duration. Pain level reassessed. Patient is alert, oriented x 3, equal unlabored respirations, skin warm/dry/pink. 17:13 Reassessment: Patient appears in no apparent distress at this time. Patient and/or vg1 family updated on plan of care and expected duration. Pain level reassessed. Patient is alert, oriented x 3, equal unlabored respirations, skin warm/dry/pink. Patient states feeling better. Vital Signs: 08:00 BP 133 / 94; Pulse 109; Resp 20; Temp 100.0(O); Pulse Ox 99% on R/A; Weight 97.52 kg kg (M); Height 5 ft. 7 in. (170.18 cm) (R); 13:41 BP 173 / 97; Pulse 100; Resp 16; Pulse Ox 100% ; vg1 15:09 BP 141 / 94; Pulse 97; Resp 16; Pulse Ox 100% ; vg1 16:44 BP 140 / 90; Pulse 92; Resp 16; Pulse Ox 100% ; vg1 17:00 BP 142 / 88; Pulse 89; Resp 16; Pulse Ox 100% ; vg1 08:00 Body Mass Index 33.67 (97.52 kg, 170.18 cm) kg ED Course: 10:28 Patient arrived in ED. as 11:26 Triage completed. kg 11:37 Patient has correct armband on for positive identification. kg 13:28 Fátima Johnson, RN is Primary Nurse. vg1 13:29 Kam Charles PA is PHCP. cp 13:29 Wil Patterson MD is Attending Physician. cp 13:42 Arm band placed on. vg1 14:02 Initial lab(s) drawn, by me, sent to lab. Inserted saline lock: 22 gauge in left vg1 antecubital area, using aseptic technique. Blood collected. 14:15 IV discontinued, intact, bleeding controlled, No redness/swelling at site. Pressure vg1 dressing applied, IV infiltrated. 14:58 Missed attempt(s): 22 gauge in left antecubital area. Bleeding controlled, band aid mb4 applied, catheter tip intact. 14:58 Missed attempt(s): 22 gauge in left antecubital area. Bleeding controlled, band aid mb4 applied, catheter tip intact. 15:17 Inserted saline lock: 22 gauge in left antecubital area, using aseptic technique. vg1 ,using aseptic technique. Completed by NAT Wharton via ultrasound. 17:15 No provider procedures requiring assistance completed. IV discontinued, intact, vg1 bleeding controlled, No redness/swelling at site. Pressure dressing applied. Administered Medications: 15:13 Drug: NS 0.9% 1000 ml Route: IV; Rate: 1000 ml; Site: left antecubital; vg1 17:13 Follow up: IV Status: Completed infusion; IV Intake: 1000ml vg1 15:13 Drug: Phenergan (promethazine) 25 mg Route: IVP; Site: left antecubital; vg1 16:30 Follow up: Response: Nausea is decreased vg1 15:15 Drug: Pepcid (famotidine) 20 mg Route: IVP; Site: left antecubital; vg1 16:30 Follow up: Response: No adverse reaction vg1 15:17 Drug: fentaNYL (PF) 25 mcg {Note: rass 0.} Route: IVP; Site: left antecubital; vg1 16:30 Follow up: Response: No adverse reaction; Pain is unchanged, physician notified vg1 16:36 Drug: NovoLIN R (insulin regular human) 10 units {Co-Signature: ss (Akiko Meyers RN).} vg1 Route: Sub-Q; Site: right lower abdomen; 17:13 Follow up: Response: No adverse reaction vg1 16:37 Drug: fentaNYL (PF) 25 mcg {Note: rass 0.} Route: IVP; Site: left antecubital; vg1 17:13 Follow up: Response: No adverse reaction; Pain is decreased vg1 16:41 Not Given (Patient Refused; Pt stated "I cant have Ativan, makes me all wired up"): vg1 Ativan (LORazepam) 0.5 mg PO once Intake: 17:13 IV: 1000ml; Total: 1000ml. vg1 Outcome: 16:44 Discharge ordered by MD. cp 17:15 Discharged to home ambulatory. vg1 17:15 Condition: stable 17:15 Discharge instructions given to patient, Instructed on discharge instructions, follow up and referral plans. medication usage, Demonstrated understanding of instructions, follow-up care, medications, Prescriptions given X 1. 17:15 Patient left the ED. vg1 Signatures: Lashell Boykin Corey, PA PA cp Baxter, Mackenzie mb4 Fátima Johnson RN RN vg1 Debbie Rodríguez RN RN kg Akiko Meyers RN ss Corrections: (The following items were deleted from the chart) 11:36 11:21 Chief complaint: Patient states: Abdominal pain, vomiting blood, diarrhea kg starting 10/18. Pt was in the ER 10/19 and transferred to [place]. D/C'd from [place] Sunday 10/22 and diagnosed with Crohns. Pt started taking Cipro and Flagyl and hasnt gotten any better. kg 11:36 11:26 Home Meds: metformin 500 mg Oral tab 1 tab 2 times per day; kg kg
[2020-10-24] MEDS ORDERED: LORAZEPAM 0.5 MG TABLET ONE (16:56)
[2020-10-24] MEDS ORDERED: INSULIN -REGULAR HUMAN 50 UNIT/0.5 ML ML ONE (16:57)
[2020-10-25 13:17] VITALS: O2SAT 100
[2020-10-25 13:22] VITALS: BP 142/88
== END 2020-10-24 17:15 | disposition home or self-care (01) ==
LOC: ER 10:25
DX: R11.2 Nausea with vomiting, unspecified (principal); I10 Essential (primary) hypertension; E11.43 Type 2 diabetes mellitus with diabetic autonomic (poly)neuropathy; K31.84 Gastroparesis; Z79.4 Long term (current) use of insulin; Z20.822 Contact with and (suspected) exposure to COVID-19; Z88.5 Allergy status to narcotic agent; Z88.8 Allergy status to other drugs, medicaments and biological substances
CPT/HCPCS: 96361; 85025; 80048; 36415; 80076; 81003; 83690; 96375; 96372; 96374; 99284; J2550; J3010 ×2; J7030

== ENCOUNTER 2020-11-09 22:57 | Emergency (ER) | payer OTHER ==
[2011-12-22 05:16] VITALS: BP 114/69
--- OUTSIDE RECORDS SUMMARY | 2020-11-10 00:21 | XMS REPORT | Continuity of Care Document ---
:1970 Author Organization [facility] t Address [address] [place] [address] Care Team Providers Name Role Phone Bina SOUZA Patton Primary Care Physician Cristina Burns Attending Clinician Eugenia YEP, F Attending Clinician Doctor Unassigned, Name Attending [...] Source Name Type Date Date Clinician [place] Propensi Active Other (See hyperacti [facility] [...] Tobacco use and 2017-08-28 2017-08-28 Never used [facility] - exposure 00:00:00 00:00:00 [facility] Smoking Status Start Date Stop Date Source Never smoker [facility] Medications Ordered Filled Start Stop Current [...] Clinicians Facility Department ID 2020-10-20 Inpatient U [facility] 1205 Mem oria 11:58:00 [facility] 2020-11-02 2020-11-02 Emergency Amari Wilder [facility] [id number] 13:53:00 20:06:00 Cristina Suarez 350.1.13.10 [place] 4.2.7.2.686 [place] [id number] 2020-08-05 2020-08-05 [facility] [id number] 20:44:00 23:55:00 Haileekm Isaac Erick 350.1.13.10 [place] 4.2.7.2.686 [place] [id number] 2020-07-22 2020-07-[address] [facility] 1.2.840.114 [id number] 17:17:00 20:14:00 Gopi Isaac Erick 350.1.13.10 [place] 4.2.7.2.686 [place] [id number] 2020-06-17 2020-06-17 Orders Doctor IQRA [id number] 00:00:00 00:00:00 Only Unassigned, GERGORY 350.1.13.10 [place] [facility] 4.2.7.2.686 [id number] 2020-05-19 2020-05-[address] [facility] [id number] 15:45:00 18:07:00 Pastora S Erick 350.1.13.10 [place] 4.2.7.2.686 [place] [id number] 2019-08-21 2019-08-22 Emergency [facility] [id number] 23:48:04 02:26:00 Jose Cruz Suarez 350.1.13.10 [place] 4.2.7.2.686 [place] [id number] 2019-08-06 2019-08-06 Telephone IQRA Barragan 1.2.840.114 [id number] 00:00:00 00:00:00 Apoorva JENKINS 350.1.13.10 HOSPITAL 4.2.7.2.686 [id number] 2019-08-06 2019-08-06 Telephone IQRA Box [id number] 00:00:00 00:00:00 Jinny JENKINS 350.1.13.10 HOSPITAL 4.2.7.2.686 [id number] 2019-08-05 2019-08-05 Telephone IQRA Box [id number] 00:00:00 00:00:00 Jinny JENKINS 350.1.13.10 [facility] 4.2.7.2.686 [id number] Results Test Description Test Time Test Comments Results Result Comments Source POCT-GLUCOSE METER 2017-09-01 17:07:00 Test Item Value Reference Range Interpretation Comme nts POC-GLUCOSE METER ([facility]) (test 298 mg/dL 70-110 H TESTED AT [address] code = 1538) [facility] 7703 0 POCT-GLUCOSE [id number] 12:11:00 Test Item Value Reference Range Interpretation Comments POC-GLUCOSE METER 331 mg/dL 70-110 H Notified R Devante SOUZA/TESTED ([facility]) (test code = AT [address] 1538) [facility] 7703 0 POCT-GLUCOSE [id number] 10:55:00 Test Item Value Reference Range Interpretation Comments POC-GLUCOSE METER 365 mg/dL 70-110 H TESTED AT [place] [address] ([facility]) (test code = ELIZABETH Flynn [facility] 1538) [address] POCT-GLUCOSE [id number] 08:44:00 Test Item Value Reference Range Interpretation Comments POC-GLUCOSE METER 291 mg/dL 70-110 H TESTED AT [place] [address] ([facility]) (test code = ELIZABETH Flynn [facility] 1538) [address] LIPID [id number] 05:56:00 Test Item Value Reference Range Interpretation Comments TRIGLYCERIDES ([facility]) (test code = 279 mg/dL 540) CHOLESTEROL ([facility]) (test code = 119 mg/dL 631) HDL CHOLESTEROL ([facility]) (test code 22 mg/dL = 976) LDL CHOLESTEROL CALCULATED ([facility]) 41 mg/dL (test code = 633) Triglyceride Reference Range: Low Risk <150 Borderline 150-199 High Risk 200-499 Very High Risk >=500Cholesterol Reference Range: Low Risk <200 Borderline 200-239 High Risk >240HDL Cholesterol Reference Range: Low Risk >=60 High Risk <40LDL Cholesterol Reference Range: Optimal <100 Near Optimal 100-129 Borderline 130-159 High 160-189 Very High >=190POCT-GLUCOSE [id number] 21:50:00 Test Item Value Reference Range Interpretation Comments POC-GLUCOSE METER 318 mg/dL 70-110 H TESTED AT [place] [address] ([facility]) (test code = ELIZABETH Flynn [place] 1538) [address] POCT-GLUCOSE [id number] 18:04:00 Test Item Value Reference Range Interpretation Comments POC-GLUCOSE METER 238 mg/dL 70-110 H TESTED AT [place] [address] ([facility]) (test code = ELIZABETH Flynn [place] 1538) [address] POCT-GLUCOSE [id number] 12:22:00 Test Item Value Reference Range Interpretation Comments POC-GLUCOSE METER 290 mg/dL 70-110 H TESTED AT [place] [address] ([facility]) (test code = ELIZABETH Flynn [place] 1538) [address] POCT-GLUCOSE [id number] 09:20:00 Test Item Value Reference Range Interpretation Comments POC-GLUCOSE METER 293 mg/dL 70-110 H TESTED AT [place] [address] ([facility]) (test code = ELIZABETH Flynn [place] 1538) [address] POCT-GLUCOSE [id number] 21:00:00 Test Item Value Reference Range Interpretation Comments POC-GLUCOSE METER 225 mg/dL 70-110 H TESTED AT [place] [address] ([facility]) (test code = ELIZABETH Flynn [place] 1538) [address] CT, CAROTID, [id number] 18:01:00FINAL REPORT CT angiogram of the upper [...] Hall Verified Date/Time: 08/30/2017 18:01:31 Reading Location: [address] Neuro Reading Room , CTANGIO [id number] 18:01:00FINAL REPORT CT angiogram of the upper [...] [place] Verified Date/Time: 08/30/2017 18:01:31 Reading Location: [facility] C013V Neuro Reading Room -GLUCOSE [id number] 17:21:00 Test Item Value Reference Range Interpretation Comments POC-GLUCOSE METER 256 mg/dL 70-[address] [facility] 6720 (BEAKER) (test code = ELIZABETH Flynn [facility] 1538) [address] POCT-GLUCOSE [id number] 12:00:00 Test Item Value Reference Range Interpretation Comments POC-GLUCOSE METER 289 mg/dL 70-110 H TESTED AT [place] [address] (BEAKER) (test code = ELIZABETH Flynn [facility] 1538) [address] BASIC METABOLIC [id number] 10:12:00 Test Item Value Reference Range Interpretation [...] NOT APPLICABLE FOR DIALYSIS PATIEN TS. POCT-GLUCOSE [id number] 08:42:00 Test Item Value Reference Range Interpretation Comments POC-GLUCOSE METER 259 mg/dL 70-[address] [facility] 6720 (BEAKER) (test code = ELIZABETH [place] 1538) [address] TROPONIN [id number] 06:14:00 Test Item Value Reference Range Interpretation [...] = 2801) RAD, CHEST, 1 VIEW, NON [id number] 04:23:00Reason for exam:->chest painShould this be performed at the bedside?->YesFINAL REPORT Comparison examination: None No pneumothorax, focal pulmonary co nsolidation, or significant pleural effusion. Normal cardiomediastinal contours. Normal skeleton and soft tissues. Impression: No acute abnormality. Signed: Ervin Jenkins Verified Date/Time: 08/30/2017 04:23:04 Reading Location: [address] Reading Room POCT-GLUCOSE [id number] 21:18:00 Test Item Value Reference Range Interpretation Comments POC-GLUCOSE METER 151 mg/dL 70-[address] [facility] 6720 ([facility]) (test code = [facility] 1538) [address] POCT-GLUCOSE [id number] 17:59:00 Test Item Value Reference Range Interpretation Comments POC-GLUCOSE METER 146 mg/dL 70-[address] [facility] 6720 ([facility]) (test code = [facility] MARYVALE Rina [facility] 1538) [address] HEMOGLOBIN [id number] 15:56:00 Test Item Value Reference Range Interpretation Comments HEMOGLOBIN A1C (BEAKER) (test code = 13.7 % 4.3-6.1 H 368) CT, BRAIN, WITHOUT [id number] 14:52:00FINAL REPORT CT head without contrast. Comparisons: [...] Hall Verified Date/Time: 08/29/2017 14:52:09 Reading Location: [address] Neuro Reading Room POCT-GLUCOSE [id number] 14:17:00 Test Item Value Reference Range Interpretation Comments POC-GLUCOSE METER 423 mg/dL 70-110 Notified Rina Low MD/TESTED (JESSICA) (test code = AT [facility] 67[address] [facility] 1538) [facility] 7703 0 VITAMIN [id number] 06:48:00 Test Item Value Reference Range Interpretation Comments VITAMIN B12 (CARLADARRION) (test code = 300 pg/mL 213-816 774) TSH/FREE T4 IF [id number] 06:48:00 Test Item Value Reference Range Interpretation Comments THYROID STIMULATING HORMONE 1.55 uIU/mL 0.35-4.94 (JESSICA) (test code = 772) CBC W/PLT COUNT & AUTO [id number] 05:10:00 Test Item Value Reference Range Interpretation Comments WHITE BLOOD CELL COUNT ([facility]) 8.6 K/ L 3.5-10.5 (test code = 775) RED BLOOD CELL COUNT ([facility]) 4.62 M/ L 3.93-5.22 (test [...] (BEAKER) (test code = 2801) URINALYSIS W/ [id number] 23:32:00 Test Item Value Reference Range Interpretation [...] Occasional SOURCE(BEAKER) (test code = 2795) TROPONIN [id number] 23:12:00 Test Item Value Reference Range Interpretation [...] acute neurological disease, and persistent tachyarrhythmia.BASIC METABOLIC [id number] 23:05:00 Test Item Value Reference Range Interpretation [...] NOT APPLICABLE FOR DIALYSIS PATIEN TS. POCT-GLUCOSE [id number] 20:49:00 Test Item Value Reference Range Interpretation Comments POC-GLUCOSE METER 376 mg/dL 70-110 H Notified R N /TESTED (BEAKER) (test code = AT [facility] [address] [address]4) [facility] 7703 0
== END 2020-11-10 01:32 | disposition left against medical advice (07) ==
LOC: ER 22:57
DX: Z02.9 Encounter for administrative examinations, unspecified (principal)

== ENCOUNTER 2021-01-08 16:53 | Emergency (ER) | payer OTHER ==
[2021-01-08 18:01] LABS: Absolute Lymphocytes (CBC) 5.2 K/uL (0.7-4.9); Basophils % 0.8 % (0-1.3); Hematocrit 45.2 % (36.0-45.0); Lymphocytes % 43.7 % (15.3-44.8); MPV 8.4 fL (7.6-11.3); RBC Red Blood Cell Count 5.59 M/uL (3.86-4.86)
[2021-01-08 18:41] LABS: Blood Morphology Comment NOT SEEN (NOT SEEN); Platelet Estimate ADEQ; White Blood Cell Scan OK (OK)
[2021-01-08 18:41] LABS: ALT/SGPT 21 U/L (12-78); Albumin 3.6 g/dL (3.4-5.0); Alkaline Phosphatase 83 U/L (45-117); BUN Blood Urea Nitrogen 7 mg/dL (7-18); Bicarbonate 27 mmol/L (21-32); Bilirubin Direct < 0.1 mg/dL (0-0.2); Bilirubin Total 0.4 mg/dL (0.2-1.0); Glucose Level 238 mg/dL (74-106); Lipase 100 U/L (73-393); Protein, Total 7.3 g/dL (6.4-8.2); Sodium Level 138 mmol/L (136-145)
[2021-01-08 18:46] LABS: AST/SGOT 26 U/L (15-37); Potassium 3.6 mmol/L (3.5-5.1)
[2021-01-08] MEDS ORDERED: NA CHLORIDE 0.9% 1,000 ML ONE (19:17)
[2021-01-08] MEDS ORDERED: METOCLOPRAMIDE 10 MG/2mL INJ ONE (19:17)
[2021-01-08] MEDS ORDERED: KETOROLAC 30 MG/ML INJ ONE (19:17)
--- NOTE | 2021-01-08 20:24 | RAD REPORT ---
EXAM DESCRIPTION: CTAbdomen Pelvis W Contrast - 01/08/2021 8:14 pm CLINICAL HISTORY: ABD PAIN COMPARISON: Abdomen Pelvis W Contrast dated 10/20/2020; Abdomen Pelvis W Contrast dated 10/09/2020 ; Abdomen Pelvis W Contrast dated 05/12/2020; Abdomen Pelvis W Contrast dated 09/17/2019 TECHNIQUE: CT of the abdomen and pelvis was performed. All CT scans are performed using dose optimization technique as appropriate and may include automated exposure control or mA/KV adjustment according to patient size. FINDINGS: Lower chest: No acute abnormality. Liver: No acute abnormality or suspicious lesions. Biliary: No biliary ductal dilatation. Cholecystectomy . Stomach: No significant focal abnormality. Duodenum: No significant focal abnormality. Pancreas: No significant abnormality. Spleen: No significant abnormality. Adrenal: No suspicious lesions. Kidney/ureter: No hydronephrosis. No renal calculi. Retroperitoneum: No retroperitoneal adenopathy. Vascular: No aneurysm. Bowel: No significant focal abnormality. Diverticulosis without diverticulitis. Peritoneum: No ascites or free air. Bladder: Grossly unremarkable. Reproductive: No adnexal masses. Bones: No acute fracture. Other: Metallic densities which may be shrapnel in the right hemipelvis. IMPRESSION: No acute intra-abdominal or pelvic finding.
--- NOTE | 2021-01-08 20:41 | EDPHYS ---
Physician Documentation [facility] Name: Elly Clarke Age: 50 yrs Sex: Female : 1970 Arrival Date: 01/08/2021 Time: 16:56 Bed 17 Private MD: ED Physician George Stern HPI: 01/08 21:23 This 50 yrs old Female presents to ER via Ambulatory with complaints of kb Abdominal Pain, Nausea. 21:23 The patient presents with abdominal pain in the lower abdomen. Onset: The kb symptoms/episode began/occurred 4 day(s) ago. The symptoms do not radiate. Associated signs and symptoms: Pertinent positives: nausea and vomiting. The symptoms are described as constant. Modifying factors: The symptoms are alleviated by nothing, the symptoms are aggravated by nothing. Severity of pain: At its worst the pain was moderate in the emergency department the pain is unchanged. The patient has experienced similar episodes in the past, multiple times. The patient has not recently seen a physician. Pt reports abd pain, nausea and vomiting that started 4 days ago. States she believes it is her gastroparesis. GLUER: 17:13 LMP N/A - Hysterectomy ss Historical: - Allergies: 17:11 Claritin (insomnia); ss 17:11 Compazine (Seizures); ss 17:11 Demerol (HEART RACING); ss 17:11 (Hives); ss 17:11 Morphine (RACING HEART); ss - Home Meds: 17:11 Ambien 10 mg Oral tab 1 tab once daily for Sleep-Onset Insomnia [Active]; tizanidine 2 ss mg Oral cap 2 caps twice a day [Active]; Insulin Pen [Active]; 18:35 Abilify 30 mg Oral tab 1 tab [Active]; amlodipine 10 mg tab 1 tab [Active]; butorphanol ap3 tartrate 10 mg/mL nasal spry 1 spray as needed for Migraine [Active]; carvedilol Oral 1 tab 2 times per day [Active]; Celexa 20 mg Oral tab 1 tab once daily [Active]; Cipro 500 mg Oral tab 1 tab TID [Active]; clonazepam 1 mg Oral tab 1 tab 2 times per day [Active]; Depakote 250 mg Oral TbEC 1 tab [Active]; Flagyl 500 mg Oral tab 1 tab 3 times per day [Active]; Humulin N Pen 100 unit/mL (3 mL) Sub-Q inpn 5 units after meals [Active]; Inderal LA 60 mg Oral Cs24 1 cap once daily [Active]; insulin detemir U-100 100 unit/mL (3 mL) subcutaneous inpn 30 unit twice a day [Active]; metformin 500 mg Oral tab 1 tab 2 times per day [Active]; - PMHx: 17:11 High Cholesterol; Anxiety; Pancreatitis; spinal stenosis; Migraines; insomnia; Chrohns; ss Dramatic migraine events; Chronic pain; Hypertension; Arthritis; Gastroparesis; Diabetes - NIDDM; - PSHx: 17:11 Cholecystectomy; Knee sx x 2; Tonsillectomy; Total abdominal hysterectomy; tumor ss removed from septum; - Immunization history:: Client reports receiving the 2nd dose of the Covid vaccine. - Social history:: Smoking status: Patient denies any tobacco usage or history of. ROS: 21:22 Constitutional: Negative for fever, chills, and weight loss. kb 21:22 Abdomen/GI: Positive for abdominal pain, nausea and vomiting, Negative for diarrhea. 21:22 All other systems are negative. Exam: 21:22 Constitutional: This is a well developed, well nourished patient who is awake, alert, kb and in no acute distress. Head/Face: Normocephalic, atraumatic. ENT: Moist Mucous membranes Respiratory: Respirations even and unlabored. No increased work of breathing, no retractions or nasal flaring. Skin: Warm, dry with normal turgor. Normal color. MS/ Extremity: Pulses equal, no cyanosis. Neurovascular intact. Full, normal range of motion. Neuro: Awake and alert, GCS 15, oriented to person, place, time, and situation. Moves all extremities. Normal gait. Psych: Awake, alert, with orientation to person, place and time. Behavior, mood, and affect are within normal limits. 21:22 Abdomen/GI: Inspection: abdomen appears normal, Bowel sounds: normal, in all quadrants, Palpation: soft, in all quadrants, mild abdominal tenderness, in the right lower quadrant and left lower quadrant. Vital Signs: 17:13 Pulse 99; Resp 17; Temp 98.0(O); Pulse Ox 99% on R/A; Weight 96.16 kg; Height 5 ft. 7 ss in. (170.18 cm); Pain 7/10; 17:15 BP 152 / 108; ss 17:26 BP 163 / 101 Supine; Pulse 97; Pulse Ox 100% on R/A; ap3 17:26 BP 154 / 100 Sitting; Pulse 95; Pulse Ox 100% ; ap3 17:26 BP 136 / 88 Standing; Pulse 98; Pulse Ox 100% on R/A; ap3 18:37 BP 134 / 86; Pulse 89; Pulse Ox 100% on R/A; ap3 20:00 BP 129 / 78; Pulse 82; Resp 18; Pulse Ox 99% on R/A; lh3 21:25 BP 148 / 86; Pulse 81; Resp 18; Pulse Ox 100% on R/A; lh3 17:13 Body Mass Index 33.20 (96.16 kg, 170.18 cm) ss MDM: 17:16 Patient medically screened. kb 20:00 Data reviewed: vital signs, nurses notes. Data interpreted: Pulse oximetry: on room air kb is 100 %. Interpretation: normal. 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 01/08 17:16 Order name: Basic Metabolic Panel; Complete Time: 18:47 kb 01/08 17:16 Order name: CBC with Diff; Complete Time: 18:45 kb 01/08 17:16 Order name: Hepatic Function; Complete Time: 18:47 kb 01/08 17:16 Order name: Lipase; Complete Time: 18:47 kb 01/08 18:41 Order name: CBC Smear Scan; Complete Time: 18:45 EDMS 01/08 19:45 Order name: CT Abd/Pelvis - IV Contrast Only; Complete Time: 20:27 kb 01/08 17:16 Order name: IV Saline Lock; Complete Time: 18:26 kb 01/08 17:16 Order name: Labs collected and sent; Complete Time: 18:26 kb 01/08 17:27 Order name: Orthostatics; Complete Time: 17:28 kb Administered Medications: 18:59 Drug: NS 0.9% 1000 ml Route: IV; Rate: 1000 ml; Site: left upper arm; ap3 18:59 Drug: Reglan (metoCLOPramide) 10 mg Route: IVP; Site: left upper arm; ap3 19:49 Follow up: Response: No adverse reaction bs2 18:59 Drug: Ketorolac 30 mg Route: IVP; Site: left upper arm; ap3 19:49 Follow up: Response: No adverse reaction bs2 21:09 Drug: Zofran (Ondansetron) 4 mg Route: IVP; Site: left antecubital; bs2 21:11 Follow up: Response: No adverse reaction bs2 21:09 Drug: fentaNYL (PF) 50 mcg Route: IVP; Site: left antecubital; bs2 21:11 Follow up: Response: No adverse reaction bs2 Disposition: 22:57 Co-signature as Attending Physician, George Stern MD I agree with the assessment and kdr plan of care. Disposition Summary: 01/08/21 20:40 Discharge Ordered Location: Home kb Condition: Stable kb Diagnosis - Abdominal pain, Generalized kb Followup: kb - With: Emergency Department - When: As needed - Reason: Worsening of condition, Recheck today's complaints Followup: kb - With: Private Physician - When: 2 - 3 days - Reason: Recheck today's complaints, Continuance of care, Re-evaluation by your physician Discharge Instructions: - Discharge Summary Sheet kb - Abdominal Pain, Adult, [id number] kb Forms: - Medication Reconciliation Form kb - Thank You Letter kb - Antibiotic Education kb - Prescription Opioid Use kb Signatures: Dispatcher [employer] EDUT Cookie Walker, JAQUAN-C [employer] PORTAL DEVELOPER-George Boston MD MD kdr Smirch, Shelby, RN RN ss Deanna Barajas RN RN ap3 Neida Leblanc RN RN bs2 Corrections: (The following items were deleted from the chart) 17:13 17:11 Home Meds: Abilify 30 mg Oral tab 1 tab; ss ss 17:13 17:11 Home Meds: amlodipine 10 mg tab 1 tab; ss ss 17:13 17:11 Home Meds: butorphanol tartrate 10 mg/mL nasal spry 1 spray as needed for ss Migraine; ss 17:13 17:11 Home Meds: Celexa 20 mg Oral tab 1 tab once daily; ss ss
--- NOTE | 2021-01-08 20:41 | ER ---
Nurse's Notes [facility] Name: Elly Clarke Age: 50 yrs Sex: Female : 1970 Arrival Date: 01/08/2021 Time: 16:56 Bed 17 Private MD: Diagnosis: Abdominal pain, Generalized Presentation: 01/08 17:10 Chief complaint: Patient states: "I think it's my gastroparesis." Pt c/o N/V and abd ss cramping that began Thursday. Coronavirus screen: Client denies travel out of the [place] in the last 14 days. Ebola Screen: Patient denies exposure to infectious person. Patient denies travel to an Ebola-affected area in the 21 days before illness onset. Initial Sepsis Screen: Does the patient meet any 2 criteria? No. Patient's initial sepsis screen is negative. Does the patient have a suspected source of infection? No. Patient's initial sepsis screen is negative. Risk Assessment: Do you want to hurt yourself or someone else? Patient reports no desire to harm self or others. Onset of symptoms was January 05, 2021. 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: 17:13 LMP N/A - Hysterectomy ss Historical: - Allergies: 17:11 Claritin (insomnia); ss 17:11 Compazine (Seizures); ss 17:11 Demerol (HEART RACING); ss 17:11 (Hives); ss 17:11 Morphine (RACING HEART); ss - Home Meds: 17:11 Ambien 10 mg Oral tab 1 tab once daily for Sleep-Onset Insomnia [Active]; tizanidine 2 ss mg Oral cap 2 caps twice a day [Active]; Insulin Pen [Active]; 18:35 Abilify 30 mg Oral tab 1 tab [Active]; amlodipine 10 mg tab 1 tab [Active]; butorphanol ap3 tartrate 10 mg/mL nasal spry 1 spray as needed for Migraine [Active]; carvedilol Oral 1 tab 2 times per day [Active]; Celexa 20 mg Oral tab 1 tab once daily [Active]; Cipro 500 mg Oral tab 1 tab TID [Active]; clonazepam 1 mg Oral tab 1 tab 2 times per day [Active]; Depakote 250 mg Oral TbEC 1 tab [Active]; Flagyl 500 mg Oral tab 1 tab 3 times per day [Active]; Humulin N Pen 100 unit/mL (3 mL) Sub-Q inpn 5 units after meals [Active]; Inderal LA 60 mg Oral Cs24 1 cap once daily [Active]; insulin detemir U-100 100 unit/mL (3 mL) subcutaneous inpn 30 unit twice a day [Active]; metformin 500 mg Oral tab 1 tab 2 times per day [Active]; - PMHx: 17:11 High Cholesterol; Anxiety; Pancreatitis; spinal stenosis; Migraines; insomnia; Chrohns; ss Dramatic migraine events; Chronic pain; Hypertension; Arthritis; Gastroparesis; Diabetes - NIDDM; - PSHx: 17:11 Cholecystectomy; Knee sx x 2; Tonsillectomy; Total abdominal hysterectomy; tumor ss removed from septum; - Immunization history:: Client reports receiving the 2nd dose of the Covid vaccine. - Social history:: Smoking status: Patient denies any tobacco usage or history of. Screenin:17 Abuse screen: Denies threats or abuse. Nutritional screening: No deficits noted. ap3 Tuberculosis screening: No symptoms or risk factors identified. 18:35 Fall Risk None identified. ap3 Assessment: 17:24 General: Appears uncomfortable, Behavior is cooperative, appropriate for age. Pain: ap3 Complains of pain in abdomen. 18:34 Neuro: Level of Consciousness is awake, alert, obeys commands, Oriented to person, ap3 place, time, situation, Appropriate for age Moves all extremities. Gait is steady, Speech is normal. Cardiovascular: Denies chest pain. Respiratory: Airway is patent Respiratory effort is even, unlabored, Respiratory pattern is regular, symmetrical. GI: Abdomen is round Bowel sounds present X 4 quads. Abd is soft Abdomen is tender to palpation in right upper quadrant, left upper quadrant and right lower quadrant. : No signs and/or symptoms were reported regarding the genitourinary system. 20:00 Reassessment: No changes from previously documented assessment. Patient and/or family lh3 updated on plan of care and expected duration. Pain level reassessed. Patient is alert, oriented x 3, equal unlabored respirations, skin warm/dry/pink. patient states that she is still in pain. 21:23 Reassessment: No changes from previously documented assessment. Patient and/or family lh3 updated on plan of care and expected duration. Pain level reassessed. Patient is alert, oriented x 3, equal unlabored respirations, skin warm/dry/pink. pt encouraged to get GI test scheduled, due to recent diagnosis. Patient states feeling better. Vital Signs: 17:13 Pulse 99; Resp 17; Temp 98.0(O); Pulse Ox 99% on R/A; Weight 96.16 kg; Height 5 ft. 7 ss in. (170.18 cm); Pain 7/10; 17:15 BP 152 / 108; ss 17:26 BP 163 / 101 Supine; Pulse 97; Pulse Ox 100% on R/A; ap3 17:26 BP 154 / 100 Sitting; Pulse 95; Pulse Ox 100% ; ap3 17:26 BP 136 / 88 Standing; Pulse 98; Pulse Ox 100% on R/A; ap3 18:37 BP 134 / 86; Pulse 89; Pulse Ox 100% on R/A; ap3 20:00 BP 129 / 78; Pulse 82; Resp 18; Pulse Ox 99% on R/A; lh3 21:25 BP 148 / 86; Pulse 81; Resp 18; Pulse Ox 100% on R/A; lh3 17:13 Body Mass Index 33.20 (96.16 kg, 170.18 cm) ss ED Course: 16:56 Patient arrived in ED. ds1 17:11 Triage completed. ss 17:11 Arm band placed on right wrist. ss 17:12 [facility]C [facility] kb 17:12 George Stern MD is Attending Physician. kb 17:17 Deanna Barajas, NAT is Primary Nurse. ap3 18:12 Missed attempt(s): 22 gauge in left antecubital area. Bleeding controlled, band aid ss applied, catheter tip intact. 18:15 Missed attempt(s): 22 gauge in left antecubital area. Bleeding controlled, band aid ss applied, catheter tip intact. 18:18 Inserted saline lock: 18 gauge in left EJ, using aseptic technique. ,using aseptic ss technique. VIA ultrasound. 18:35 No provider procedures requiring assistance completed. ap3 18:36 Patient has correct armband on for positive identification. Bed in low position. Call ap3 light in reach. Side rails up X2. Door closed. Noise minimized. Warm blanket given. 20:14 CT Abd/Pelvis - IV Contrast Only In Process Unspecified. EDMS 21:26 IV discontinued, intact, bleeding controlled, No redness/swelling at site. Pressure lh3 dressing applied. Administered Medications: 18:59 Drug: NS 0.9% 1000 ml Route: IV; Rate: 1000 ml; Site: left upper arm; ap3 18:59 Drug: Reglan (metoCLOPramide) 10 mg Route: IVP; Site: left upper arm; ap3 19:49 Follow up: Response: No adverse reaction bs2 18:59 Drug: Ketorolac 30 mg Route: IVP; Site: left upper arm; ap3 19:49 Follow up: Response: No adverse reaction bs2 21:09 Drug: Zofran (Ondansetron) 4 mg Route: IVP; Site: left antecubital; bs2 21:11 Follow up: Response: No adverse reaction bs2 21:09 Drug: fentaNYL (PF) 50 mcg Route: IVP; Site: left antecubital; bs2 21:11 Follow up: Response: No adverse reaction bs2 Outcome: 20:40 Discharge ordered by . kb 21:25 Discharged to home ambulatory. lh3 21:25 Condition: good 21:25 Discharge instructions given to patient, Instructed on discharge instructions, follow up and referral plans. Demonstrated understanding of instructions, follow-up care. 21:26 Patient left the ED. lh3 Signatures: Dispatcher [employer] EDMS Cookie Walker, [employer] PERFECT BINDER OPERATOR-Consuelo Stover ds1 Akiko Meyers RN RN ss Deanna Barajas RN RN ap3 Neida Leblanc, NAT RN bs2 Ya Sánchez RN RN lh3 Corrections: (The following items were deleted from the chart) 17:13 17:11 Home Meds: Abilify 30 mg Oral tab 1 tab; ss ss 17:13 17:11 Home Meds: amlodipine 10 mg tab 1 tab; ss ss 17:13 17:11 Home Meds: butorphanol tartrate 10 mg/mL nasal spry 1 spray as needed for ss Migraine; ss 17:13 17:11 Home Meds: Celexa 20 mg Oral tab 1 tab once daily; ss ss 17:18 17:17 Fall Risk None identified. ap3 ap3
[2021-01-08] MEDS ORDERED: FENTANYL CITR 100 MCG/2 ML ONE (21:29)
[2021-01-08] MEDS ORDERED: ONDANSETRON 4 MG/2 ML VIAL ONE (21:30)
[2021-01-08 21:42] VITALS: TEMP 98
[2021-01-08 21:48] VITALS: BP 148/86; O2SAT 100
== END 2021-01-08 21:26 | disposition home or self-care (01) ==
LOC: ER 16:53
DX: R10.84 Generalized abdominal pain (principal); K31.84 Gastroparesis; E11.43 Type 2 diabetes mellitus with diabetic autonomic (poly)neuropathy; I10 Essential (primary) hypertension; Z79.4 Long term (current) use of insulin; Z88.5 Allergy status to narcotic agent; Z88.8 Allergy status to other drugs, medicaments and biological substances
CPT/HCPCS: 85025; 80048; 36415; 80076; 83690; 74177; Q9967; J2765; J3010; J7030; J2405

== ENCOUNTER 2021-02-23 14:59 | Emergency (ER) | payer OTHER ==
--- OUTSIDE RECORDS SUMMARY | 2021-02-23 15:08 | XMS REPORT | Continuity of Care Document ---
:1970 Author Organization [facility] t Address [address] [place] [address] Dr. Armas[address] [place] [address] Care Team Providers Name Role Phone Bina SOUZA [place] Primary Care Physician Cristina Burns Attending Clinician Eugenia TENT FINISHER, F Attending Clinician Doctor Unassigned, Name Attending Clinician Unavailable Isaias DEGROOT, S Attending Clinician Olinda SOUZA S Attending Clinician Laurel JOHNS Attending Clinician Unavailable Isauro JOHNS Attending Clinician Unavailable Shankar SOUZA Attending Clinician [facility] Attending Clinician Unavailable BRENNEN Attending Clinician Unavailable BRENNEN Admitting Clinician Unavailable Payers Payer Name Policy Type Policy Number Effective Date Expiration Date [id number] 2020 00:00:00 GROUP AND P[employer]ION [id number] 1989 ADMINISTRATORS 00:00:00 MEDICAID SSI PENDING PENDING 2020 00:00:00 Problems Condition Condition Condition Status Onset Resolution Last Treating Co mments Source Name Details Category Date Date Treatment Clinician Date Migraine Migraine Disease Active Unive rs equivalent equivalent 5-07 it y of 00:00: [place] [facility] Loss of Loss of Disease Active Univers taste taste 5-07 ity of 00:00: [address] Branch Nausea Nausea Disease Active Univers 5-07 ity of 00:00: [place] [address] Medical Branch Cough Cough Disease Active Univers 5-07 ity of 00:00: [place] [facility] Branch Dehydratio Dehydratio Disease Active U nivers n n 5-07 ity of 00:00: [place] [facility] Loose Loose Disease Active Univers stools stools 5-07 ity of 00:00: [place] [facility] Branch Left sided Left sided Disease Active [facility] numbness [facility]02 [facility]: [address] Neurologic Neurologic Disease Active [facility] al al [facility]- [facility] - symptoms symptoms 00:00: Medica l [address] [place] Abdominal Abdominal Disease Active Uni vers pain pain 3-03 ity of 00:00: [place] [facility] Obesity Obesity Disease Active 2015-03 Univers (BMI (BMI 2-29 ity of 30-39.9) 30-39.9) 00:00: [place] [facility] Branch Gastropare Gastropare Disease Active 2015-03 U nivers sis sis 2-29 ity of 00:00: [address] H/O: H/O: Disease Active Univers hysterecto hysterecto 9-09 it y of my my 00:00: [place] [facility] Branch Morbid Morbid Disease Active Univers obesity obesity 8-30 ity of 00:00: [place] [facility] Branch Chronic Chronic Disease Active Univers abdominal abdominal 1-27 ity of pain pain 00:00: [address] Branch HTN HTN Disease Active Univers (hypertens (hypertens 1-25 it y of ion), ion), 00:00: [place] benign benign 00 [facility] 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, 1.5, 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 00 [facility] Allergies, Adverse Reactions, Alerts Allergy Allergy Status Severity Reaction(s) Onset Inactive Treating Comm ents Source Name Type Date Date Clinician Baldo Bashir Active Other (See [address] [facility] ne-Pseud ty to Comments) [...] adverse 00:00: Medical reaction 00 Center s MUSHROOM DRUG Active Hives 2015-03 Univers INGREDI 2-30 ity of 00:00: [place] 00 Medical Branch Mushroom Propensi Active Hives 2015-03 Univer s ty to 2-30 ity of adverse 00:00: [place] reaction 00 Medical s Branch LORATADI DRUG Active Palpitations 201[address] [place] NE INGREDI 1-24 ity of 00:00: [place] 00 Medical Branch PROCHLOR DRUG Active Other-Cmnt 2015-0 Univ ers PERAZINE INGREDI 1-24 ity of EDISYLAT 00:00: [place] E 00 Medical Branch MEPERIDI DRUG Active Rash 2016-0 Univers NE HCL INGREDI 1-24 ity of 00:00: [place] 00 Medical Branch PHENOBAR DRUG Active Anaphylaxis 2015-0 Uni vers B-HYOSCY 1-24 ity of -ATROPIN 00:00: [place] E-SCOP 00 Medical Branch MORPHINE DRUG Active Rash 2016- Univers INGREDI 1-24 ity of 00:00: [place] 00 Medical Branch Loratadi Propensi Active Palpitations 2015-0 Univers ne ty to 1-24 ity of adverse 00:00: [place] reaction 00 Medical s Branch Prochlor Propensi Active Other - See 0 seizures Univers perazine ty to comments 1-24 ity of Edisylat adverse 00:00: [place] e reaction 00 Medical s Branch Meperidi Propensi Active Rash 2015-0 Univer s ne Hcl ty to 1-24 ity of adverse 00:00: [place] reaction 00 Medical s Branch Phenobar Propensi Active Anaphylaxis U nivers b-Hyoscy ty to 1-24 ity of -Atropin adverse 00:00: [place] e-Scop reaction [facility] Morphine Propensi Active Rash Univer s ty to 1-24 ity of adverse 00:00: [place] reaction 00 Medical [facility] Social History Social Habit Start Date Stop Date Quantity Comments Source Exposure to Not sure [facility] SARS-CoV-2 (event) Medica l [place] Tobacco use and 2020-08-05 2020-08-05 Never used [facility] exposure 00:00:00 00:00:00 [facility] Sex [birth year] [facility] 00:00:00 00:00:00 [facility] Smoking Status Start Date Stop Date Source Never smoker [facility] Medications Ordered Filled Start Stop Current Ordering Indication Dosage Frequency Signature Comments Components Source Medication Medication Date Date Medication? Clinician (SIG) Name Name clonazePAM Yes .5mg 0.5 mg, Univ ers (KLONOPIN) 11-03 Oral, TID, ity of tablet 0.5 01:00: [place] dose [place] mg 00 on [facility] Medical 11/02/20 at [place] 1999, Until Discontinu ed, Routine pantoprazol 2020- No 40mg 40 mg, Uni vers e 11-03 Slow IV ity of (PROTONIX) 01:00: 00:10 Push, [place] injection 00 :00 ONCE, 1 Medical 40 mg dose, [facility] 11/02/20 at 2000 NaCl 0.9% 2020- No 1000mL at 999 Uni vers (NS) bolus 11-03 mL/hr, ity of infusion 00:45: 01:05 1,000 mL, [place] 1,000 mL 00 :00 IV Medical Infusion, [place] ONCE, 1 dose, [facility] 11/02/20 at 1945, STAT magnesium 2020- No 2g 2 g, IV Univ ers sulfate in 11-02 Piggyback, it y of water 2 23:45: 00:06 ONCE, 1 [place] gram/50 mL 00 :00 dose, Fri Medi nicole (4 %) 11/02/20 at [place] infusion 2 1845, g Routine iopamidol 2020- No [id number] 120mL 120 mL, Univers (ISOVUE 11-02 Intravenou ity o f 370-500 mL) 23:45: 23:45 s, ONCE, 1 [place] injection 00 :00 dose, Fri Medic al 120 mL 11/02/20 at Branch 1845, Routine proMETHazin 2020- No 12.5mg 12.5 mg, Univers e 11-02 IV ity of (PHENERGAN) 23:15: 23:15 Piggyback, [place] 12.5 mg in 00 :00 ONCE, 1 Medica l NaCl 0.9% dose, Fri Branc h (NS) 50 mL 11/02/20 at piggyback 1815, 50 mL FENTanyl PF 2020- No 50ug 50 mcg, Un [place] (SUBLIMAZE 11-02 Slow IV ity o f (PF)) 22:15: 22:08 Push, [place] injection 00 :00 ONCE, 1 Medical 50 mcg dose, Fri [place] 11/02/20 at 1715, STAT NaCl 0.9% 2020- No 1000mL at 999 Uni vers (NS) bolus 11-02 mL/hr, ity of infusion 22:00: 00:00 1,000 mL, [place] 1,000 mL 00 :00 IV Medical Infusion, [place] ONCE, 1 dose, 11/02/20 at 1700, STAT methylpredn 2020- No 125mg 125 mg, U nivers isolone sod 11-02 Intravenou i ty of succ 22:00: 22:11 s, ONCE, 1 [place] (SOLU-MEDRO 00 :00 dose, Thu Med ical L) 11/02/20 at Branch injection 1700, STAT 125 mg methylPREDN Yes [id number] Take by Univers ISolone 11-02 mouth ity of (MEDROL, 00:00: SEE-INSTRU [place] OBDULIA,) 4 mg 00 CTIONS. Medica l tablets follow Branch package directions traMADoL 50 2020-0 Yes [id number] 50mg Take 1 Univ ers mg tablet 11-02 tablet by ity o f 00:00: mouth [place] 00 every 6 Medical (six) Branch hours as needed for Pain (scale 4-6). Indication s: acute pain pantoprazol Yes [id number] 40mg Take 1 Univers e 40 mg EC 8-06 tablet by ity of tablet 00:00: mouth [place] 00 daily. Medical Branch proMETHazin Yes [id number] 25mg Take 1 Univers e 25 mg 8-06 tablet by ity of tablet 00:00: mouth [place] 00 every 6 Medical (six) Branch hours as needed for Nausea and Vomiting (N/V). FENTanyl PF 2020- No 50ug 50 mcg, Un [place] (SUBLIMAZE 5-10 05-10 Slow IV ity o f (PF)) 05:45: 04:39 Push, [place] injection 00 :00 ONCE, 1 Medical 50 mcg dose, Mon Branch 08/06/20 at 0045, Routine iopamidol 2020- No [id number] 100mL 100 mL, Univers (ISOVUE 5-10 05-10 Intravenou ity o f 370-500 mL) 04:45: 03:27 s, ONCE, 1 [place] injection 00 :00 dose, Sun Medic al 100 mL 08/05/20 at Branch 2345, Routine ondansetron 2020- No 4mg 4 mg, Slow Univers (ZOFRAN 5-10 05-10 IV Push, ity of (PF)) 04:15: 03:17 ONCE, 1 [place] injection 4 00 :00 dose, Sun Med ical mg 08/05/20 at Branch 2315, MANFRED FENTanyl PF 2020- No 50ug 50 mcg, Un [place] (SUBLIMAZE 5-10 05-10 Slow IV ity o f (PF)) 04:15: 03:17 Push, [place] injection 00 :00 ONCE, 1 Medical 50 mcg dose, [place] Branch 08/05/20 at 2315, Routine cefTRIAXone 2020- No 1000mg 1,000 mg, Univers (ROCEPHIN) 5-10 05-10 IV ity of 1,000 mg in 04:00: 03:51 Piggyback, [place] NaCl 0.9% 00 :00 ONCE, 1 Medical (NS) 50 mL dose, Sun Bran ch MINI-BAG 08/05/20 at 2300, 50 mL
Reas on for Anti-Infec tive: Documented Infection< br>Documen jeny Infection Site: Urine
D uration of Therapy: 7 days dicyclomine 2020- No 20mg 20 mg, Uni vers (BENTYL) 5-10 05-10 Intramuscu ity of injection 03:15: 02:50 lar, ONCE, [place] 20 mg 00 :00 1 dose, Medical [place] 08/05/20 Branch at 2215, Routine NaCl 0.9% 2020- No 1000mL at 999 Uni vers (NS) bolus 5-10 05-10 mL/hr, ity of infusion 02:45: 04:21 1,000 mL, [place] 1,000 mL 00 :00 IV Medical Infusion, Branch ONCE, 1 dose, 08/05/20 at 2145, MANFRED NaCl 0.9% 2020- No 1000mL at 999 Uni vers (NS) bolus 5-10 05-10 mL/hr, ity of infusion 02:15: 04:21 1,000 mL, [place] 1,000 mL 00 :00 IV Medical Infusion, Branch ONCE, 1 dose, 08/05/20 at 2115, MANFRED proMETHazin Yes [id number] 25mg Take 1 Univers e 25 mg 5-09 tablet by ity of tablet 00:00: mouth [place] 00 every 6 Medical (six) Branch hours as needed for N/V unresponsi ve to Ondansetro n. zolpidem Yes [id number] 12.5mg Take 1 U nivers 12.5 mg CR 5-09 tablet by ity of tablet 00:00: mouth at [place] 00 bedtime as Medical needed for Branch Sleep. zolpidem Yes [id number] 12.5mg Take 1 U nivers 12.5 mg CR 5-09 tablet by ity of tablet 00:00: mouth at [place] 00 bedtime as Medical needed for Branch Sleep. proMETHazin 2020- No [id number] 25mg Take 1 Univers e 25 mg 5-09 08-06 tablet by ity of tablet 00:00: 00:00 mouth [place] 00 :00 every 6 Medical (six) Branch hours as needed for N/V unresponsi ve to Ondansetro n. dicyclomine 2020- No [id number] 20mg Take 1 Univers 20 mg 08-05 tablet by ity of tablet 00:00: 04:59 mouth 4 [place] 00 :00 (four) Medical times Branch daily for 7 days. cefdinir 2020- No [id number] 300mg Take 1 U nivers 300 mg 08-05 capsule by ity of capsule 00:00: 04:59 mouth 2 [place] 00 :00 (two) Medical times Branch daily for 7 days. insulin No 8U 8 Units, Unive rs regular 07-23 Slow IV ity of human 01:30: 00:52 Push, [place] (HUMULIN R) 00 :00 ONCE, 1 Medic al injection 8 dose, [facility] Units 07/22/20 at 2030, Routine dexamethaso No 10mg 10 mg, IV Univers ne 07-23 Push, ity of (DECADRON 01:15: 00:18 ONCE, 1 [place] PHOSPHATE) 00 :00 dose, [place] Medi nicole injection 07/22/20 at Bran ch 10 mg 2015, STAT NaCl 0.9% 2020- No 1000mL at 999 Uni vers (NS) bolus 07-23 mL/hr, ity of infusion 00:15: 01:01 1,000 mL, [place] 1,000 mL 00 :00 IV Medical Infusion, Branch ONCE, 1 dose, [place] 07/22/20 at 1915, MANFRED ketorolac No 30mg 30 mg, Unive rs (TORADOL) 07-22 Slow IV ity of injection 23:45: 22:55 Push, [place] 30 mg 00 :00 ONCE, 1 Medical dose, [place] Branch 07/22/20 at 1845, Routine
front desk team member approving Restricted medication : MAYTE LAMB metoclopram No 10mg 10 mg, Uni vers meredith HCl 07-22 Slow IV ity of (REGLAN) 23:45: 22:55 Push, [place] injection 00 :00 ONCE, 1 Medical 10 mg dose, [place] Branch 07/22/20 at 1845, MANFRED NaCl 0.9% 2020- No 1000mL at 999 Uni vers (NS) bolus 4-25 04-26 mL/hr, ity of infusion 22:45: 00:17 1,000 mL, [place] 1,000 mL 00 :00 IV Medical Infusion, Branch ONCE, 1 dose, 07/22/20 at 1745, MANFRED ibuprofen 0 Yes [id number] 800mg Take 1 U nivers 800 mg 4-25 tablet by ity of tablet 00:00: mouth [place] 00 every 6 Medical (six) Branch hours as needed for Pain (scale 4-6). traMADoL 50 0 Yes [id number] 50mg Take 1 Univ ers mg tablet 4-25 tablet by ity o f 00:00: mouth [place] 00 every 6 Medical (six) Branch hours as needed for Pain (scale 7-10). Indication s: acute pain ibuprofen 0 Yes [id number] 800mg Take 1 U nivers 800 mg 4-25 tablet by ity of tablet 00:00: mouth [place] 00 every 6 Medical (six) Branch hours as needed for Pain (scale 4-6). traMADoL 50 0 Yes [id number] 50mg Take 1 Univ ers mg tablet 4-25 tablet by ity o f 00:00: mouth [place] 00 every 6 Medical (six) Branch hours as needed for Pain (scale 7-10). Indication s: acute pain ibuprofen 0 Yes [id number] 800mg Take 1 U nivers 800 mg 4-25 tablet by ity of tablet 00:00: mouth [place] 00 every 6 Medical (six) Branch hours as needed for Pain (scale 4-6). traMADoL 50 2020-0 2020- No [id number] 50mg Take 1 Uni vers mg tablet 4-25 08-06 tablet by ity of 00:00: 00:00 mouth [place] 00 :00 every 6 Medical (six) Branch hours as needed for Pain (scale 7-10). Indication s: acute pain traMADoL 50 2020-0 2020- No [id number] 50mg Take 1 Uni vers mg tablet 4-25 04-25 tablet by ity of 00:00: 00:00 mouth [place] 00 :00 every 6 Medical (six) Branch hours as needed for Pain (scale 7-10). Indication s: acute pain ibuprofen 2020-0 2020- No [id number] 800mg Take 1 Univers 800 mg 4-25 04-25 tablet by ity of tablet 00:00: 00:00 mouth [place] 00 :00 every 6 Medical (six) Branch hours as needed for Pain (scale 4-6). NaCl 0.9% 2020- No 1000mL at 999 Uni vers (NS) bolus 05-20 mL/hr, ity of infusion 00:00: 00:05 1,000 mL, [place] 1,000 mL 00 :00 IV Medical Infusion, Branch ONCE, 1 dose, 05/19/20 at 1800, STAT proMETHazin 2020- No 25mg 25 mg, IV Univers e 05-20 Piggyback, ity of (PHENERGAN) 00:00: 00:00 ONCE, 1 [place] 25 mg in 00 :00 dose, Sat Medica l NaCl 0.9% 05/19/20 at Bran ch (NS) 50 mL 1800, 50 piggyback mL FENTanyl PF No 100ug 100 mcg, Univers (SUBLIMAZE 05-20 Slow IV ity o f (PF)) 00:00: 23:04 Push, [place] injection 00 :00 ONCE, 1 Medical 100 mcg dose, Sat Branch 05/19/20 at 1800, STAT proMETHazin 0 Yes [id number] 25mg Take 1 Univers e 25 mg 2-20 tablet by ity of tablet 00:00: mouth [place] 00 every 6 Medical (six) Branch hours as needed for Nausea and Vomiting (N/V). traMADoL 50 2020-0 Yes [id number] 50mg Take 1 Univ ers mg tablet 2-20 tablet by ity o f 00:00: mouth [place] 00 every 6 Medical (six) Branch hours as needed for Pain (scale 7-10). Indication s: acute pain proMETHazin 2020-0 Yes [id number] 25mg Insert 1 Univers e 25 mg 2-20 Suppositor ity of suppository 00:00: y [place] 00 rectum Medical every 4 Branch (four) hours as needed for Nausea and Vomiting (N/V). proMETHazin 2020-0 Yes [id number] 25mg Take 1 Univers e 25 mg 2-20 tablet by ity of tablet 00:00: mouth [place] 00 every 6 Medical (six) Branch hours as needed for Nausea and Vomiting (N/V). traMADoL 50 0 Yes [id number] 50mg Take 1 Univ ers mg tablet 2-20 tablet by ity o f 00:00: mouth [place] 00 every 6 Medical (six) Branch hours as needed for Pain (scale 7-10). Indication s: acute pain proMETHazin 2020-0 Yes [id number] 25mg Insert 1 Univers e 25 mg 2-20 Suppositor ity of suppository 00:00: y into [place] 00 rectum Medical every 4 Branch (four) hours as needed for Nausea and Vomiting (N/V). proMETHazin 0 Yes [id number] 25mg Take 1 Univers e 25 mg 2-20 tablet by ity of tablet 00:00: mouth [place] 00 every 6 Medical (six) Branch hours as needed for Nausea and Vomiting (N/V). traMADoL 50 0 Yes [id number] 50mg Take 1 Univ ers mg tablet 2-20 tablet by ity o f 00:00: mouth [place] 00 every 6 Medical (six) Branch hours as needed for Pain (scale 7-10). Indication s: acute pain proMETHazin 0 Yes [id number] 25mg Insert 1 Univers e 25 mg 2-20 Suppositor ity of suppository 00:00: y into [place] 00 rectum Medical every 4 Branch (four) hours as needed for Nausea and Vomiting (N/V). proMETHazin 0 Yes [id number] 25mg Take 1 Univers e 25 mg 2-20 tablet by ity of tablet 00:00: mouth [place] 00 every 6 Medical (six) Branch hours as needed for Nausea and Vomiting (N/V). traMADoL 50 0 Yes [id number] 50mg Take 1 Univ ers mg tablet 2-20 tablet by ity o f 00:00: mouth [place] 00 every 6 Medical (six) Branch hours as needed for Pain (scale 7-10). Indication s: acute pain proMETHazin 2020-0 Yes [id number] 25mg Insert 1 Univers e 25 mg 2-20 Suppositor ity of suppository 00:00: y into [place] 00 rectum Medical every 4 Branch (four) hours as needed for Nausea and Vomiting (N/V). proMETHazin 2020- No [id number] 25mg Take 1 Univers e 25 mg 2-20 08-06 tablet by ity of tablet 00:00: 00:00 mouth [place] 00 :00 every 6 Medical (six) Branch hours as needed for Nausea and Vomiting (N/V). traMADoL 50 2020- No [id number] 50mg Take 1 Uni vers mg tablet -20 - tablet by ity of 00:00: 00:00 mouth [place] 00 :00 every 6 Medical (six) Branch hours as needed for Pain (scale 7-10). Indication s: acute pain proMETHazin 2020- No [id number] 25mg Insert 1 Univers e 25 mg 2-20 - Suppositor ity o f suppository 00:00: 00:00 y into [place] 00 :00 rectum Medical every 4 Branch (four) hours as needed for Nausea and Vomiting (N/V). ibuprofen 2019-03 Yes [id number] 600mg Take 1 Univers 600 mg 2-12 tablet by ity of tablet 00:00: mouth [place] 00 every 6 Medical (six) Branch hours as needed for Pain (scale 4-6). metFORMIN 2019- Yes [id number] 500mg Take 1 Univers 500 mg 2-12 tablet by ity of tablet 00:00: mouth 2 00 (two) Medical times Branch daily with meals. cyclobenzap 2019- Yes [id number] 10mg Take 1 Univers rine 10 mg 2-12 tablet by ity of tablet 00:00: mouth 3 00 (three) Medical times Branch daily. ibuprofen 2019- Yes [id number] 600mg Take 1 Univers 600 mg 2-12 tablet by ity of tablet 00:00: mouth [place] 00 every 6 Medical (six) Branch hours as needed for Pain (scale 4-6). metFORMIN 2020- Yes [id number] 500mg Take 1 Univers 500 mg 2-12 tablet by ity of tablet 00:00: mouth 2 00 (two) Medical times Branch daily with meals. cyclobenzap 2020- Yes [id number] 10mg Take 1 Univers rine 10 mg 2-12 tablet by ity of tablet 00:00: mouth 3 00 (three) Medical times Branch daily. ibuprofen 2019- Yes [id number] 600mg Take 1 Univers 600 mg 2-12 tablet by ity of tablet 00:00: mouth [place] 00 every 6 Medical (six) Branch hours as needed for Pain (scale 4-6). metFORMIN 2020- Yes [id number] 500mg Take 1 Univers 500 mg 2-12 tablet by ity of tablet 00:00: mouth 2 00 (two) Medical times Branch daily with meals. cyclobenzap 2019- Yes [id number] 10mg Take 1 Univers rine 10 mg 2-12 tablet by ity of tablet 00:00: mouth 3 00 (three) Medical times Branch daily. ibuprofen 2019- Yes [id number] 600mg Take 1 Univers 600 mg 2-12 tablet by ity of tablet 00:00: mouth [place] 00 every 6 Medical (six) Branch hours as needed for Pain (scale 4-6). metFORMIN 2019- Yes [id number] 500mg Take 1 Univers 500 mg 2-12 tablet by ity of tablet 00:00: mouth 2 (two) Medical times Branch daily with meals. cyclobenzap 2019-03 Yes [id number] 10mg Take 1 Univers rine 10 mg 2-12 tablet by ity of tablet 00:00: mouth 3 (three) Medical times Branch daily. ibuprofen 2019- Yes [id number] 600mg Take 1 Univers 600 mg 2-12 tablet by ity of tablet 00:00: mouth 00 every 6 Medical (six) Branch hours as needed for Pain (scale 4-6). metFORMIN 2019- Yes [id number] 500mg Take 1 Univers 500 mg 2-12 tablet by ity of tablet 00:00: mouth 2 00 (two) Medical times Branch daily with meals. cyclobenzap 2019-03 Yes [id number] 10mg Take 1 Univers rine 10 mg 2-12 tablet by ity of tablet 00:00: mouth 3 00 (three) Medical times Branch daily. proMETHazin 2019-03- No [id number] 25mg Take 1 Univers e 25 mg 2-12 02-20 tablet by ity of tablet 00:00: 00:00 mouth [place] 00 :00 every 6 Medical (six) Branch hours as needed for Nausea and Vomiting (N/V). insulin 2019- No 5U 5 Units, Unive rs regular 5-25 05-25 Subcutaneo ity o f human 08:00: 07:05 , ONCE, [place] (HUMULIN R) 00 :00 1 dose, Medic al injection 5 Mon Branch Units 5/25/20 at 0300, Routine FENTanyl PF 2020-0 2020- No 50ug 50 mcg, Un [place] (SUBLIMAZE 5-25 05-25 Slow IV ity o f (PF)) 07:30: 07:05 Push, [place] injection 00 :00 ONCE, 1 Medical 50 mcg dose, [facility] 08/22/19 at 0230, Routine FENTanyl PF 2020-0 2020- No 75ug 75 mcg, Un [place] (SUBLIMAZE 5-25 05-25 Slow IV ity o f (PF)) 06:15: 05:20 Push, [place] injection 00 :00 ONCE, 1 Medical 75 mcg dose, [facility] Branch 08/22/19 at 0115, Routine proMETHazin 2020-0 2020- No 25mg 25 mg, IV Univers e -25 05-25 Piggyback, ity of (PHENERGAN) 06:15: 05:20 ONCE, 1 [place] 25 mg in 00 :00 dose, Mon Medica l NaCl 0.9% 08/22/19 at Bran ch (NS) 50 mL 0115, 50 piggyback mL propranolol 2020-0 Yes 60mg Take 60 mg Univers (INDERAL) 5-25 by mouth ity of 60 mg 05:29: daily. [address] carvediloL 2020-0 Yes 12.5mg Take 12.5 Univers 12.5 mg 5-25 mg by ity of tablet 05:29: mouth 2 [place] [address] ([facility]) [facility] times [place] daily with meals. propranolol 2020-0 Yes 60mg Take 60 mg Univers (INDERAL) 5-25 by mouth ity of 60 mg 05:29: daily. [address] carvediloL 2020-0 Yes 12.5mg Take 12.5 Univers 12.5 mg 5-25 mg by ity of tablet 05:29: mouth 2 [place] [address] ([facility]) [facility] times [place] daily with meals. propranolol 2020-0 Yes 60mg Take 60 mg Univers (INDERAL) 5-25 by mouth ity of 60 mg 05:29: daily. [place] tablet [address] [place] [address] carvediloL 2020-0 Yes 12.5mg Take 12.5 Univers 12.5 mg 5-25 mg by ity of tablet 05:29: mouth 2 [place] [address] ([facility]) [facility] times [place] daily with meals. propranolol 2020-0 Yes 60mg Take 60 mg Univers (INDERAL) 5-25 by mouth ity of 60 mg 05:29: daily. [facility] [place] [facility] 28 [facility] carvediloL 2020-0 Yes 12.5mg Take 12.5 Univers 12.5 mg 5-25 mg by ity of tablet 05:29: mouth 2 [place] [address] ([facility]) [facility] times [place] daily with meals. propranolol 2020-0 Yes 60mg Take 60 mg Univers (INDERAL) 5-25 by mouth ity of 60 mg 05:29: daily. [facility] [place] [facility] 28 [facility] carvediloL 2020-0 Yes 12.5mg Take 12.5 Univers 12.5 mg 5-25 mg by ity of tablet 05:29: mouth 2 [place] [address] ([facility]) [facility] ER daily with meals. propranolol 2020-0 Yes 60mg Take 60 mg Univers (INDERAL) 5-25 by mouth ity of 60 mg 05:29: daily. [address] carvediloL 2020-0 Yes 12.5mg Take 12.5 Univers 12.5 mg 5-25 mg by ity of tablet 05:29: mouth 2 [place] [address] ([facility]) [facility] ER daily with meals. ARIPiprazol 2020-0 Yes 2mg Take 2 mg U nivers e (ABILIFY) 5-25 by mouth ity of 2 mg tablet 05:28: daily. [address] ARIPiprazol 2020-0 Yes 2mg Take 2 mg U nivers e (ABILIFY) 5-25 by mouth ity of 2 mg tablet 05:28: daily. [address] ARIPiprazol 2020-0 Yes 2mg Take 2 mg U nivers e (ABILIFY) 5-25 by mouth ity of 2 mg tablet 05:28: daily. [address] ARIPiprazol 2020-0 Yes 2mg Take 2 mg U nivers e (ABILIFY) 5-25 by mouth ity of 2 mg tablet 05:28: daily. [address] ARIPiprazol 2020-0 Yes 2mg Take 2 mg U nivers e (ABILIFY) 5-25 by mouth ity of 2 mg tablet 05:28: daily. [address] ARIPiprazol 2020-0 Yes 2mg Take 2 mg U nivers e (ABILIFY) 5-25 by mouth ity of 2 mg tablet 05:28: daily. [facility] s 27 Medical Branch dicyclomine 2020-0 Yes [id number] 20mg Take 1 Univers 20 mg 5-25 tablet by ity of tablet 00:00: mouth [place] 00 every 6 Medical (six) Branch hours as needed for Abdominal pain. proMETHazin 2020-0 Yes [id number] 25mg Take 1 U nivers e 25 mg 5-25 tablet by ity of tablet 00:00: mouth [place] 00 every 6 Medical (six) Branch hours as needed for Nausea and Vomiting (N/V). dicyclomine 2020-0 Yes [id number] 20mg Take 1 Univers 20 mg 5-25 tablet by ity of tablet 00:00: mouth [place] 00 every 6 Medical (six) Branch hours as needed for Abdominal pain. dicyclomine 2020-0 Yes [id number] 20mg Take 1 Univers 20 mg 5-25 tablet by ity of tablet 00:00: mouth [place] 00 every 6 Medical (six) Branch hours as needed for Abdominal pain. dicyclomine 2020-0 Yes [id number] 20mg Take 1 Univers 20 mg 5-25 tablet by ity of tablet 00:00: mouth [place] 00 every 6 Medical (six) Branch hours as needed for Abdominal pain. dicyclomine 2020-0 Yes [id number] 20mg Take 1 [facility] 20 mg 5-25 tablet by ity of tablet 00:00: mouth [place] 00 every 6 Medical (six) Branch hours as needed for Abdominal pain. dicyclomine 2020-0 Yes [id number] 20mg Take 1 [facility] 20 mg 5-25 tablet by ity of tablet 00:00: mouth [place] 00 every 6 Medical (six) Branch hours as needed for Abdominal pain. dicyclomine 2020-0 Yes [id number] 20mg Take 1 [facility] 20 mg 5-25 tablet by ity of tablet 00:00: mouth [place] 00 every 6 Medical (six) Branch hours as needed for Abdominal pain. dicyclomine 2020-0 Yes [id number] 20mg Take 1 [facility] 20 mg 5-25 tablet by ity of tablet 00:00: mouth [place] 00 every 6 Medical (six) Branch hours as needed for Abdominal pain. dicyclomine 2020-0 Yes [id number] 20mg Take 1 [facility] 20 mg 5-25 tablet by ity of tablet 00:00: mouth [place] 00 every 6 Medical (six) Branch hours as needed for Abdominal pain. dicyclomine 2020-0 Yes [id number] 20mg Take 1 [facility] 20 mg 5-25 tablet by ity of tablet 00:00: mouth [place] 00 every 6 Medical (six) Branch hours as needed for Abdominal pain. dicyclomine 2020-0 Yes [id number] 20mg Take 1 [facility] 20 mg 5-25 tablet by ity of tablet 00:00: mouth [place] 00 every 6 Medical (six) Branch hours as needed for Abdominal pain. dicyclomine 2020-0 Yes [id number] 20mg Take 1 [facility] 20 mg 5-25 tablet by ity of tablet 00:00: mouth [place] 00 every 6 Medical (six) Branch hours as needed for Abdominal pain. proMETHazin 2019-0 2020- No [id number] 25mg Take 1 [facility] e 25 mg 5-25 02-20 tablet by ity of tablet 00:00: 00:00 mouth [place] 00 :00 every 6 Medical (six) Branch hours as needed for Nausea and Vomiting (N/V). ARIPiprazol 2020-0 Yes 2mg Take 2 mg U nivers e (ABILIFY) 5-07 by mouth ity of 2 mg tablet 19:53: [facility]. [facility] Branch tiZANidine 2020-0 Yes 4mg Take 4 mg [facility] (ZANAFLEX) 5-07 by mouth 2 ity of 4 mg 19:53: (two) [place] capsule 38 times Medical daily. Branch citalopram 2020-0 Yes 40mg Take 40 mg [facility] n[facility] (CELEXA) 40 5-07 by mouth ity of mg tablet 19:53: daily. [place] [address] Medical Branch clonazePAM 2020-0 Yes Take by [facility] vers (KLONOPIN) 5-07 mouth 2 ity of 0.5 mg 19:53: (two) [place] disintegrat 38 times Medical ing tablet daily as Branc h needed for Anxiety. ZN 2020-0 Yes Take by [facility] GLUC/PUMP 5-07 mouth. ity of SEED 19:53: [place] OIL/SAW PAL 38 Medical (PROPALMEX Branch ORAL) propranolol 2020-0 Yes 60mg Take 60 mg [facility] (INDERAL) 5-07 by mouth ity of 60 mg 19:53: daily. [place] tablet 38 Medical Branch butorphanol 2020-0 Yes 1{spray Use 1 [facility] (STADOL) 10 5-07 } Tow in ity of mg/mL nasal 19:53: each [place] spray 38 nostril as Medical needed for Branch Pain. METFORMIN 2020-0 Yes 500mg Take 500 [facility] vers HCL 5-07 mg by ity of (METFORMIN 19:53: mouth [place] ORAL[place] 38 (two) Medical times Branch daily. zolpidem 2020-0 Yes 12.5mg Take 12.5 [facility] 12.5 mg CR 5-07 mg by ity of tablet 19:53: mouth at [place] 38 bedtime as Medical needed for Branch Sleep. ARIPiprazol 2020-0 Yes 2mg Take 2 mg U nivers e (ABILIFY) 5-07 by mouth ity of 2 mg tablet 19:53: [facility]. [facility] tiZAN[facility] 2020-0 Yes 4mg Take 4 mg [facility] (ZANAFLEX) 5-07 by mouth 2 ity of 4 mg 19:53: (two) [place] capsule 38 times Medical daily. Branch citalopram 2020-0 Yes 40mg Take 40 mg U nivers (CELEXA) 40 5-07 by mouth ity of mg tablet 19:53: daily. [place] [address] Medical Branch clonazePAM 2020-0 Yes Take by [facility] vers (KLONOPIN) 5-07 mouth 2 ity of 0.5 mg 19:53: (two) [place] disintegrat 38 times Medical ing tablet daily as Branc h needed for Anxiety. ZN 2020-0 Yes Take by [facility] GLUC/PUMP 5-07 mouth. ity of SEED 19:53: [place] OIL/SAW PAL 38 Medical (PROPALMEX Branch ORAL) propranolol 2020-0 Yes 60mg Take 60 mg [facility] (INDERAL) 5-07 by mouth ity of 60 mg 19:53: daily. [place] tablet 38 Medical Branch butorphanol 2020-0 Yes 1{spray Use 1 [facility] [place] (STADOL) 10 5-07 } Tow in ity of mg/mL nasal 19:53: each [place] spray 38 nostril as Medical needed for Branch Pain. METFORMIN 2020-0 Yes 500mg Take 500 [facility] vers HCL 5-07 mg by ity of (METFORMIN 19:53: mouth 2 [place] ORAL[place] 38 (two) Medical times Branch daily. zolpidem 2020-0 Yes 12.5mg Take 12.5 [facility] 12.5 mg CR 5-07 mg by ity of tablet 19:53: mouth at [place] [address] bedtime as Medical needed for Branch Sleep. ARIPiprazol 2020-0 Yes 2mg Take 2 mg U nivers e (ABILIFY) 5-07 by mouth ity of 2 mg tablet 19:53: daily. [address] Branch tiZANidine 2020-0 Yes 4mg Take 4 mg [facility] [place] (ZANAFLEX) 5-07 by mouth 2 ity of 4 mg 19:53: (two) [place] capsule 38 times Medical daily. Branch citalopram 2020-0 Yes 40mg Take 40 mg U nivers (CELEXA) 40 5-07 by mouth ity of mg tablet 19:53: daily. [address] Branch clonazePAM 2020-0 Yes Take by [facility] vers (KLONOPIN) 5-07 mouth 2 ity of 0.5 mg 19:53: (two) [place] disintegrat 38 times Medical ing tablet daily as Branc h needed for Anxiety. ZN 2020-0 Yes Take by [facility] GLUC/PUMP 5-07 mouth. ity of SEED 19:53: [place] OIL/SAW PAL 38 Medical (PROPALMEX Branch ORAL) propranolol 2020-0 Yes 60mg Take 60 mg [facility] (INDERAL) 5-07 by mouth ity of 60 mg 19:53: daily. [place] tablet Medical Branch butorphanol 2020-0 Yes 1{spray Use 1 [facility] [place] (STADOL) 10 5-07 } Tow in ity of mg/mL nasal 19:53: each [place] spray 38 nostril as Medical needed for Branch Pain. METFORMIN 2020-0 Yes 500mg Take 500 [facility] vers HCL 5-07 mg by ity of (METFORMIN 19:53: mouth 2 [place] ORAL[place] 38 (two) Medical times Branch daily. zolpidem 2020-0 Yes 12.5mg Take 12.5 [facility] [place] 12.5 mg CR 5-07 mg by ity of tablet 19:53: mouth at [place] [address] bedtime as Medical needed for Branch Sleep. ARIPiprazol 2020-0 Yes 2mg Take 2 mg U nivers e (ABILIFY) 5-07 by mouth ity of 2 mg tablet 19:53: daily. [address] Branch tiZANidine 2020-0 Yes 4mg Take 4 mg [facility] [place] (ZANAFLEX) 5-07 by mouth 2 ity of 4 mg 19:53: (two) [place] capsule 38 times Medical daily. Branch citalopram 2020-0 Yes 40mg Take 40 mg U nivers (CELEXA) 40 5-07 by mouth ity of mg tablet 19:53: daily. [place] [address] Medical Branch clonazePAM 2020-0 Yes Take by [facility] vers (KLONOPIN) 5-07 mouth 2 ity of 0.5 mg 19:53: (two) [place] disintegrat 38 times Medical ing tablet daily as Branc h needed for Anxiety. ZN 2020-0 Yes Take by [facility] GLUC/PUMP 5-07 mouth. ity of SEED 19:53: [place] OIL/SAW PAL Medical (PROPALMEX Branch ORAL) propranolol 2020-0 Yes 60mg Take 60 mg [facility] (INDERAL) 5-07 by mouth ity of 60 mg 19:53: daily. [place] tablet Medical Branch butorphanol 2020-0 Yes 1{spray Use 1 [facility] [place] (STADOL) 10 5-07 } Tow in ity of mg/mL nasal 19:53: each [place] spray 38 nostril as Medical needed for Branch Pain. METFORMIN 2020-0 Yes 500mg Take 500 [facility] vers HCL 5-07 mg by ity of (METFORMIN 19:53: mouth 2 [place] ORAL[place] 38 (two) Medical times Branch daily. zolpidem 2020-0 Yes 12.5mg Take 12.5 [facility] [place] 12.5 mg CR 5-07 mg by ity of tablet 19:53: mouth at [place] [address] bedtime as Medical needed for Branch Sleep. ARIPiprazol 2020-0 Yes 2mg Take 2 mg U nivers e (ABILIFY) 5-07 by mouth ity of 2 mg tablet 19:53: daily. [place] [facility] tiZANidine 2020-0 Yes 4mg Take 4 mg [facility] (ZANAFLEX) 5-07 by mouth 2 ity of 4 mg 19:53: (two) [place] capsule 38 times Medical daily. Branch citalopram 2020-0 Yes 40mg Take 40 mg U nivers (CELEXA) 40 5-07 by mouth ity of mg tablet 19:53: daily. [place] [address] Medical Branch clonazePAM 2020-0 Yes Take by [facility] vers (KLONOPIN) 5-07 mouth 2 ity of 0.5 mg 19:53: (two) [place] disintegrat 38 times Medical ing tablet daily as Branc h needed for Anxiety. ZN 2020-0 Yes Take by [facility] GLUC/PUMP 5-07 mouth. ity of SEED 19:53: [place] OIL/SAW PAL 38 Medical (PROPALMEX Branch ORAL) propranolol 2020-0 Yes 60mg Take 60 mg [facility] (INDERAL) 5-07 by mouth ity of 60 mg 19:53: daily. [place] tablet 38 Medical Branch butorphanol 2020-0 Yes 1{spray Use 1 [facility] [place] (STADOL) 10 5-07 } Tow in ity of mg/mL nasal 19:53: each [place] spray 38 nostril as Medical needed for Branch Pain. METFORMIN 2020-0 Yes 500mg Take 500 [facility] vers HCL 5-07 mg by ity of (METFORMIN 19:53: mouth 2 [place] ORAL[place] 38 (two) Medical times Branch daily. zolpidem 2020-0 Yes 12.5mg Take 12.5 [facility] [place] 12.5 mg CR 5-07 mg by ity of tablet 19:53: mouth at [place] [address] bedtime as Medical needed for Branch Sleep. ARIPiprazol 2020-0 Yes 2mg Take 2 mg U nivers e (ABILIFY) 5-07 by mouth ity of 2 mg tablet 19:53: [facility]. [facility] ti[facility] 2020-0 Yes 4mg Take 4 mg [facility] [place] (ZANAFLEX) 5-07 by mouth 2 ity of 4 mg 19:53: (two) [place] capsule 38 times Medical daily. Branch citalopram 2020-0 Yes 40mg Take 40 mg U nivers (CELEXA) 40 5-07 by mouth ity of mg tablet 19:53: daily. [address] Branch clonazePAM 2020-0 Yes Take by [facility] vers (KLONOPIN) 5-07 mouth 2 ity of 0.5 mg 19:53: (two) [place] disintegrat 38 times Medical ing tablet daily as Branc h needed for Anxiety. ZN 2020-0 Yes Take by [facility] GLUC/PUMP 5-07 mouth. ity of SEED 19:53: [place] OIL/SAW PAL 38 Medical (PROPALMEX Branch ORAL) propranolol 2020-0 Yes 60mg Take 60 mg [facility] (INDERAL) 5-07 by mouth ity of 60 mg 19:53: daily. [place] tablet 38 Medical Branch butorphanol 2020-0 Yes 1{spray Use 1 [facility] [place] (STADOL) 10 5-07 } Tow in ity of mg/mL nasal 19:53: each [place] spray 38 nostril as Medical needed for Branch Pain. METFORMIN 2020-0 Yes 500mg Take 500 [facility] vers HCL 5-07 mg by ity of (METFORMIN 19:53: mouth 2 [place] ORAL[place] 38 (two) Medical times Branch daily. zolpidem 2020-0 Yes 12.5mg Take 12.5 [facility] 12.5 mg CR 5-07 mg by ity of tablet 19:53: mouth at [place] [address] bedtime as Medical needed for Branch Sleep. ARIPiprazol 2020-0 Yes 2mg Take 2 mg U nivers e (ABILIFY) 5-07 by mouth ity of 2 mg tablet 19:53: [facility]. [facility] tiZAN[facility] 2020-0 Yes 4mg Take 4 mg [facility] [place] (ZANAFLEX) 5-07 by mouth 2 ity of 4 mg 19:53: (two) [place] capsule 38 times Medical daily. Branch citalopram 2020-0 Yes 40mg Take 40 mg U nivers (CELEXA) 40 5-07 by mouth ity of mg tablet 19:53: daily. [place] [address] Medical Branch clonazePAM 2020-0 Yes Take by [facility] vers (KLONOPIN) 5-07 mouth 2 ity of 0.5 mg 19:53: (two) [place] disintegrat 38 times Medical ing tablet daily as Branc h needed for Anxiety. ZN 2020-0 Yes Take by [facility] GLUC/PUMP 5-07 mouth. ity of SEED 19:53: [place] OIL/SAW PAL 38 Medical (PROPALMEX Branch ORAL) propranolol 2020-0 Yes 60mg Take 60 mg [facility] (INDERAL) 5-07 by mouth ity of 60 mg 19:53: daily. [place] tablet 38 Medical Branch butorphanol 2020-0 Yes 1{spray Use 1 [facility] [place] (STADOL) 10 5-07 } Tow in ity of mg/mL nasal 19:53: each [place] spray 38 nostril as Medical needed for Branch Pain. METFORMIN 2020-0 Yes 500mg Take 500 [facility] vers HCL 5-07 mg by ity of (METFORMIN 19:53: mouth 2 [place] ORAL[place] 38 (two) Medical times Branch daily. zolpidem 2020-0 Yes 12.5mg Take 12.5 [facility] 12.5 mg CR 5-07 mg by ity of tablet 19:53: mouth at [place] 38 bedtime as Medical needed for Branch Sleep. tiZANidine 2020-0 Yes 4mg Take 4 mg [facility] (ZANAFLEX) 5-07 by mouth 2 ity of 4 mg 19:53: (two) [place] capsule 38 times Medical daily. Branch citalopram 2020-0 Yes 40mg Take 40 mg U nivers (CELEXA) 40 5-07 by mouth ity of mg tablet 19:53: daily. [place] [address] Medical Branch clonazePAM 2020-0 Yes Take by [facility] vers (KLONOPIN) 5-07 mouth 2 ity of 0.5 mg 19:53: (two) [place] disintegrat 38 times Medical ing tablet daily as Branc h needed for Anxiety. ZN 2020-0 Yes Take by [facility] GLUC/PUMP 5-07 mouth. ity of SEED 19:53: [place] OIL/SAW [facility] 38 Medical (PROPALMEX Branch ORAL) butorphanol 2020-0 Yes 1{spray Use 1 [facility] [place] (STADOL) 10 5-07 } Tow in ity of mg/mL nasal 19:53: each [place] spray 38 nostril as Medical needed for Branch Pain. METFORMIN 2020-0 Yes 500mg Take 500 [facility] vers HCL 5-07 mg by ity of (METFORMIN 19:53: mouth 2 [place] ORAL[place] 38 (two) Medical times Branch daily. zolpidem 2020-0 Yes 12.5mg Take 12.5 [facility] [place] 12.5 mg CR 5-07 mg by ity of tablet 19:53: mouth at [place] [address] bedtime as Medical needed for Branch Sleep. tiZANidine 2020-0 Yes 4mg Take 4 mg [facility] [place] (ZANAFLEX) 5-07 by mouth 2 ity of 4 mg 19:53: (two) [place] capsule 38 times Medical daily. Branch citalopram 2020-0 Yes 40mg Take 40 mg U nivers (CELEXA) 40 5-07 by mouth ity of mg tablet 19:53: daily. [place] [address] Medical Branch clonazePAM 2020-0 Yes Take by [facility] vers (KLONOPIN) 5-07 mouth 2 ity of 0.5 mg 19:53: (two) [place] disintegrat 38 times Medical ing tablet daily as Branc h needed for Anxiety. ZN 2020-0 Yes Take by [facility] GLUC/PUMP 5-07 mouth. ity of SEED 19:53: [place] OIL/SAW PAL 38 Medical (PROPALMEX Branch ORAL) butorphanol 2020-0 Yes 1{spray Use 1 [facility] [place] (STADOL) 10 5-07 } Tow in ity of mg/mL nasal 19:53: each [place] spray 38 nostril as Medical needed for Branch Pain. METFORMIN 2020-0 Yes 500mg Take 500 [facility] vers HCL 5-07 mg by ity of (METFORMIN 19:53: mouth 2 [place] ORAL[place] 38 (two) Medical times Branch daily. zolpidem 2020-0 Yes 12.5mg Take 12.5 [facility] 12.5 mg CR 5-07 mg by ity of tablet 19:53: mouth at [place] 38 bedtime as Medical needed for Branch Sleep. tiZANidine 2020-0 Yes 4mg Take 4 mg [facility] [place] (ZANAFLEX) 5-07 by mouth 2 ity of 4 mg 19:53: (two) [place] capsule 38 times Medical daily. Branch citalopram 2020-0 Yes 40mg Take 40 mg U nivers (CELEXA) 40 5-07 by mouth ity of mg tablet 19:53: daily. [place] [address] Medical Branch clonazePAM 2020-0 Yes Take by [facility] vers (KLONOPIN) 5-07 mouth 2 ity of 0.5 mg 19:53: (two) [place] disintegrat 38 times Medical ing tablet daily as Branc h needed for Anxiety. ZN 2020-0 Yes Take by [facility] GLUC/PUMP 5-07 mouth. ity of SEED 19:53: [place] OIL/SAW PAL 38 Medical (PROPALMEX Branch ORAL) butorphanol 2020-0 Yes 1{spray Use 1 [facility] [place] (STADOL) 10 5-07 } Tow in ity of mg/mL nasal 19:53: each [place] spray 38 nostril as Medical needed for Branch Pain. METFORMIN 2020-0 Yes 500mg Take 500 [facility] vers HCL 5-07 mg by ity of (METFORMIN 19:53: mouth 2 [place] ORAL[place] 38 (two) Medical times Branch daily. zolpidem 2020-0 Yes 12.5mg Take 12.5 [facility] 12.5 mg CR 5-07 mg by ity of tablet 19:53: mouth at [place] 38 bedtime as Medical needed for Branch Sleep. tiZANidine 2020-0 Yes 4mg Take 4 mg [facility] [place] (ZANAFLEX) 5-07 by mouth 2 ity of 4 mg 19:53: (two) [place] capsule 38 times Medical daily. Branch citalopram 2020-0 Yes 40mg Take 40 mg U nivers (CELEXA) 40 5-07 by mouth ity of mg tablet 19:53: daily. [place] [address] Medical Branch clonazePAM 2020-0 Yes Take by [facility] vers (KLONOPIN) 5-07 mouth 2 ity of 0.5 mg 19:53: (two) [place] disintegrat 38 times Medical ing tablet daily as Branc h needed for Anxiety. ZN 2020-0 Yes Take by [facility] GLUC/PUMP 5-07 mouth. ity of SEED 19:53: [place] OIL/SAW [facility] 38 Medical (PROPALMEX Branch ORAL) butorphanol 2020-0 Yes 1{spray Use 1 [facility] [place] (STADOL) 10 5-07 } Tow in ity of mg/mL nasal 19:53: each [place] spray 38 nostril as Medical needed for Branch Pain. METFORMIN 2020-0 Yes 500mg Take 500 [facility] vers HCL 5-07 mg by ity of (METFORMIN 19:53: mouth 2 [place] ORAL[place] 38 (two) Medical times Branch daily. zolpidem 2020-0 Yes 12.5mg Take 12.5 [facility] [place] 12.5 mg CR 5-07 mg by ity of tablet 19:53: mouth at [place] 38 bedtime as Medical needed for Branch Sleep. tiZANidine 2020-0 Yes 4mg Take 4 mg [facility] [place] (ZANAFLEX) 5-07 by mouth 2 ity of 4 mg 19:53: (two) [place] capsule 38 times Medical daily. Branch citalopram 2020-0 Yes 40mg Take 40 mg U nivers (CELEXA) 40 5-07 by mouth ity of mg tablet 19:53: daily. [place] [address] Medical Branch clonazePAM 2020-0 Yes Take by [facility] vers (KLONOPIN) 5-07 mouth 2 ity of 0.5 mg 19:53: (two) [place] disintegrat 38 times Medical ing tablet daily as Branc h needed for Anxiety. ZN 2020-0 Yes Take by [facility] GLUC/PUMP 5-07 mouth. ity of SEED 19:53: [place] OIL/SAW PAL 38 Medical (PROPALMEX Branch ORAL) butorphanol 2020-0 Yes 1{spray Use 1 [facility] [place] (STADOL) 10 5-07 } Tow in ity of mg/mL nasal 19:53: each [place] spray 38 nostril as Medical needed for Branch Pain. METFORMIN 2020-0 Yes 500mg Take 500 [facility] vers HCL 5-07 mg by ity of (METFORMIN 19:53: mouth 2 [place] ORAL[place] 38 (two) Medical times Branch daily. zolpidem 2020-0 Yes 12.5mg Take 12.5 [facility] [place] 12.5 mg CR 5-07 mg by ity of tablet 19:53: mouth at [place] [address] bedtime as Medical needed for Branch Sleep. tiZANidine 2020-0 Yes 4mg Take 4 mg [facility] [place] (ZANAFLEX) 5-07 by mouth 2 ity of 4 mg 19:53: (two) [place] capsule 38 times Medical daily. Branch citalopram 2020-0 Yes 40mg Take 40 mg U nivers (CELEXA) 40 5-07 by mouth ity of mg tablet 19:53: daily. [place] [address] Medical Branch clonazePAM 2020-0 Yes Take by [facility] vers (KLONOPIN) 5-07 mouth 2 ity of 0.5 mg 19:53: (two) [place] disintegrat 38 times Medical ing tablet daily as Branc h needed for Anxiety. ZN 2020-0 Yes Take by [facility] GLUC/PUMP 5-07 mouth. ity of SEED 19:53: [place] OIL/SAW PAL 38 Medical (PROPALMEX Branch ORAL) butorphanol 2020-0 Yes 1{spray Use 1 [facility] [place] (STADOL) 10 5-07 } Tow in ity of mg/mL nasal 19:53: each [place] spray 38 nostril as Medical needed for Branch Pain. METFORMIN 2020-0 Yes 500mg Take 500 [facility] vers HCL 5-07 mg by ity of (METFORMIN 19:53: mouth 2 [place] ORAL[place] 38 (two) Medical times Branch daily. zolpidem 2020-0 Yes 12.5mg Take 12.5 [facility] [place] 12.5 mg CR 5-07 mg by ity of tablet 19:53: mouth at [place] [address] bedtime as Medical needed for Branch Sleep. acetaminoph 2020-0 Yes [id number] 650mg Take 1 [facility] en 650 mg 5-07 tablet by ity o f CR tablet 00:00: mouth [place] 00 every 8 Medical (eight) Branch hours as needed for Pain or Fever. bromphenira 2020-0 Yes [id number] 10mL Take 10 mL [facility] mine-pseudo 5-07 by mouth 4 it y of ephedrine-D 00:00: (four) [place] M (BROMFED 00 times Medical DM) 2-30-10 daily as Bran ch mg/5 mL needed for syrup Cough. Bismuth 2020-0 Yes [id number] 262mg Take 1 [facility] Subsalicyla 5-07 tablet by ity of te 00:00: mouth 4 [place] (PEPTO-BISM 00 (four) Medica l OL) 262 mg times Branch tablet daily as needed (diarrhea) . proMETHazin 2020-0 Yes [id number] 25mg Take 1 [facility] e 25 mg 5-07 tablet by ity of tablet 00:00: mouth [place] 00 every 6 Medical (six) Branch hours as needed for Nausea and Vomiting (N/V). acetaminoph 2020-0 Yes [id number] 650mg Take 1 [facility] en 650 mg 5-07 tablet by ity o f CR tablet 00:00: mouth [place] 00 every 8 Medical (eight) Branch hours as needed for Pain or Fever. bromphenira 2020-0 Yes [id number] 10mL Take 10 mL [facility] mine-pseudo 5-07 by mouth 4 it y of ephedrine-D 00:00: (four) [place] M (BROMFED 00 times Medical DM) 2-30-10 daily as Bran ch mg/5 mL needed for syrup Cough. Bismuth 2020-0 Yes [id number] 262mg Take 1 [facility] Subsalicyla 5-07 tablet by ity of te 00:00: mouth 4 [place] (PEPTO-BISM 00 (four) Medica l OL) 262 mg times Branch tablet daily as needed (diarrhea) . proMETHazin 2020-0 Yes [id number] 25mg Take 1 [facility] e 25 mg 5-07 tablet by ity of tablet 00:00: mouth [place] 00 every 6 Medical (six) Branch hours as needed for Nausea and Vomiting (N/V). acetaminoph 2020-0 Yes [id number] 650mg Take 1 [facility] en 650 mg 5-07 tablet by ity o f CR tablet 00:00: mouth [place] 00 every 8 Medical (eight) Branch hours as needed for Pain or Fever. bromphenira 2020-0 Yes [id number] 10mL Take 10 mL [facility] mine-pseudo 5-07 by mouth 4 it y of ephedrine-D 00:00: (four) [place] M (BROMFED 00 times Medical DM) 2-30-10 daily as Bran ch mg/5 mL needed for syrup Cough. Bismuth 2020-0 Yes [id number] 262mg Take 1 [facility] Subsalicyla 5-07 tablet by ity of te 00:00: mouth 4 [place] (PEPTO-BISM 00 (four) Medica l OL) 262 mg times Branch tablet daily as needed (diarrhea) . proMETHazin 2020-0 Yes [id number] 25mg Take 1 [facility] e 25 mg 5-07 tablet by ity of tablet 00:00: mouth [place] 00 every 6 Medical (six) Branch hours as needed for Nausea and Vomiting (N/V). acetaminoph 2020-0 Yes [id number] 650mg Take 1 [facility] en 650 mg 5-07 tablet by ity o f CR tablet 00:00: mouth [place] 00 every 8 Medical (eight) Branch hours as needed for Pain or Fever. bromphenira 2020-0 Yes [id number] 10mL Take 10 mL [facility] mine-pseudo 5-07 by mouth 4 it y of ephedrine-D 00:00: (four) [place] M (BROMFED 00 times Medical DM) 2-30-10 daily as Bran ch mg/5 mL needed for syrup Cough. Bismuth 2020-0 Yes [id number] 262mg Take 1 [facility] Subsalicyla 5-07 tablet by ity of te 00:00: mouth 4 [place] (PEPTO-BISM 00 (four) Medica l OL) 262 mg times Branch tablet daily as needed (diarrhea) . proMETHazin 2020-0 Yes [id number] 25mg Take 1 [facility] e 25 mg 5-07 tablet by ity of tablet 00:00: mouth [place] 00 every 6 Medical (six) Branch hours as needed for Nausea and Vomiting (N/V). acetaminoph 2020-0 Yes [id number] 650mg Take 1 [facility] en 650 mg 5-07 tablet by ity o f CR tablet 00:00: mouth [place] 00 every 8 Medical (eight) Branch hours as needed for Pain or Fever. bromphenira 2020-0 Yes [id number] 10mL Take 10 mL [facility] mine-pseudo 5-07 by mouth 4 it y of ephedrine-D 00:00: (four) [place] M (BROMFED 00 times Medical DM) 2-30-10 daily as Bran ch mg/5 mL needed for syrup Cough. Bismuth 2020-0 Yes [id number] 262mg Take 1 [facility] Subsalicyla 5-07 tablet by ity of te 00:00: mouth 4 [place] (PEPTO-BISM 00 (four) Medica l OL) 262 mg times Branch tablet daily as needed (diarrhea) . proMETHazin 2020-0 Yes [id number] 25mg Take 1 [facility] e 25 mg 5-07 tablet by ity of tablet 00:00: mouth [place] 00 every 6 Medical (six) Branch hours as needed for Nausea and Vomiting (N/V). acetaminoph 2020-0 Yes [id number] 650mg Take 1 [facility] en 650 mg 5-07 tablet by ity o f CR tablet 00:00: mouth [place] 00 every 8 Medical (eight) Branch hours as needed for Pain or Fever. bromphenira 2020-0 Yes [id number] 10mL Take 10 mL [facility] mine-pseudo 5-07 by mouth 4 it y of ephedrine-D 00:00: (four) [place] M (BROMFED 00 times Medical DM) 2-30-10 daily as Bran ch mg/5 mL needed for syrup Cough. Bismuth 2020-0 Yes [id number] 262mg Take 1 [facility] Subsalicyla 5-07 tablet by ity of te 00:00: mouth 4 [place] (PEPTO-BISM 00 (four) Medica l OL) 262 mg times Branch tablet daily as needed (diarrhea) . proMETHazin 2020-0 Yes [id number] 25mg Take 1 [facility] e 25 mg 5-07 tablet by ity of tablet 00:00: mouth [place] 00 every 6 Medical (six) Branch hours as needed for Nausea and Vomiting (N/V). acetaminoph 2020-0 Yes [id number] 650mg Take 1 [facility] en 650 mg 5-07 tablet by ity o f CR tablet 00:00: mouth [place] 00 every 8 Medical (eight) Branch hours as needed for Pain or Fever. bromphenira 2020-0 Yes [id number] 10mL Take 10 mL [facility] mine-pseudo 5-07 by mouth 4 it y of ephedrine-D 00:00: (four) [place] M (BROMFED 00 times Medical DM) 2-30-10 daily as Bran ch mg/5 mL needed for syrup Cough. Bismuth 2020-0 Yes [id number] 262mg Take 1 [facility] Subsalicyla 5-07 tablet by ity of te 00:00: mouth 4 [place] (PEPTO-BISM 00 (four) Medica l OL) 262 mg times Branch tablet daily as needed (diarrhea) . proMETHazin 2020-0 Yes [id number] 25mg Take 1 [facility] e 25 mg 5-07 tablet by ity of tablet 00:00: mouth [place] 00 every 6 Medical (six) Branch hours as needed for Nausea and Vomiting (N/V). acetaminoph 2020-0 Yes [id number] 650mg Take 1 [facility] en 650 mg 5-07 tablet by ity o f CR tablet 00:00: mouth [place] 00 every 8 Medical (eight) Branch hours as needed for Pain or Fever. bromphenira 2020-0 Yes [id number] 10mL Take 10 mL [facility] mine-pseudo 5-07 by mouth 4 it y of ephedrine-D 00:00: (four) [place] M (BROMFED 00 times Medical DM) 2-30-10 daily as Bran ch mg/5 mL needed for syrup Cough. Bismuth 2020-0 Yes [id number] 262mg Take 1 [facility] Subsalicyla 5-07 tablet by ity of te 00:00: mouth 4 [place] (PEPTO-BISM 00 (four) Medica l OL) 262 mg times Branch tablet daily as needed (diarrhea) . proMETHazin 2020-0 Yes [id number] 25mg Take 1 [facility] e 25 mg 5-07 tablet by ity of tablet 00:00: mouth [place] 00 every 6 Medical (six) Branch hours as needed for Nausea and Vomiting (N/V). acetaminoph 2020-0 Yes [id number] 650mg Take 1 [facility] en 650 mg 5-07 tablet by ity o f CR tablet 00:00: mouth [place] 00 every 8 Medical (eight) Branch hours as needed for Pain or Fever. bromphenira 2020-0 Yes [id number] 10mL Take 10 mL [facility] mine-pseudo 5-07 by mouth 4 it y of ephedrine-D 00:00: (four) [place] M (BROMFED 00 times Medical DM) 2-30-10 daily as Bran ch mg/5 mL needed for syrup Cough. Bismuth 2020-0 Yes [id number] 262mg Take 1 [facility] Subsalicyla 5-07 tablet by ity of te 00:00: mouth 4 [place] (PEPTO-BISM 00 (four) Medica l OL) 262 mg times Branch tablet daily as needed (diarrhea) . acetaminoph 2020-0 Yes [id number] 650mg Take 1 Univers en 650 mg 5-07 tablet by ity o f CR tablet 00:00: mouth [place] 00 every 8 Medical (eight) Branch hours as needed for Pain or Fever. bromphenira 2020-0 Yes [id number] 10mL Take 10 mL Univers mine-pseudo 5-07 by mouth 4 it y of ephedrine-D 00:00: ([place] (BROMFED 00 times Medical DM) 2-30-10 daily as Bran ch mg/5 mL needed for syrup Cough. Bismuth 2020-0 Yes [id number] 262mg Take 1 Un chauncey Subsalicyla 5-07 tablet by ity of te 00:00: mouth 4 [place] (PEPTO-BISM 00 (four) Medica l OL) 262 mg times Branch tablet daily as needed (diarrhea) . acetaminoph 2020-0 Yes [id number] 650mg Take 1 Univers en 650 mg 5-07 tablet by ity o f CR tablet 00:00: mouth [place] 00 every 8 Medical (eight) Branch hours as needed for Pain or Fever. bromphenira 2020-0 Yes [id number] 10mL Take 10 mL Univers mine-pseudo 5-07 by mouth 4 it y of ephedrine-D 00:00: (four[place] (BROMFED 00 times Medical DM) 2-30-10 daily as Bran ch mg/5 mL needed for syrup Cough. Bismuth 2020-0 Yes [id number] 262mg Take 1 Un [facility]ce[facility] Subsalicyla 5-07 tablet by ity of te 00:00: mouth 4 [place] (PEPTO-BISM 00 (four) Medica l OL) 262 mg times Branch tablet daily as needed (diarrhea) . acetaminoph 2020-0 Yes [id number] 650mg Take 1 Univers en 650 mg 5-07 tablet by ity o f CR tablet 00:00: mouth [place] 00 every 8 Medical (eight) Branch hours as needed for Pain or Fever. bromphenira 2020-0 Yes [id number] 10mL Take 10 mL Univers mine-pseudo 5-07 by mouth 4 it y of ephedrine-D 00:00: (four[place] (BROMFED 00 times Medical DM) 2-30-10 daily as Bran ch mg/5 mL needed for syrup Cough. Bismuth 2020-0 Yes [id number] 262mg Take 1 Un [facility] Subsalicyla 5-07 tablet by ity of te 00:00: mouth 4 [place] (PEPTO-BISM 00 (four) Medica l OL) 262 mg times Branch tablet daily as needed (diarrhea) . acetaminoph 2020-0 Yes [id number] 650mg Take 1 Univers en 650 mg 5-07 tablet by ity o f CR tablet 00:00: mouth [place] 00 every 8 Medical (eight) Branch hours as needed for Pain or Fever. bromphenira 2020-0 Yes [id number] 10mL Take 10 mL Univers mine-pseudo 5-07 by mouth 4 it y of ephedrine-D 00:00: (four[place] (BROMFED 00 times Medical DM) 2-30-10 daily as Bran ch mg/5 mL needed for syrup Cough. Bismuth 2020-0 Yes [id number] 262mg Take 1 [facility] Subsalicyla 5-07 tablet by ity of te 00:00: mouth 4 [place] (PEPTO-BISM 00 (four) Medica l OL) 262 mg times Branch tablet daily as needed (diarrhea) . proMETHazin 2019-0 2020- No [id number] 25mg Take 1 Univers e 25 mg 5-07 02-20 tablet by ity of tablet 00:00: 00:00 mouth [place] 00 :00 every 6 Medical (six) Branch hours as needed for Nausea and Vomiting (N/V). traMADol 2017- Yes 50mg Q.5D Take [address] [facility] (ULTRAM) 50 6-05 by mouth 2 [facility] - mg tablet 18:22: (two) Medical 22 times Center daily. butorphanol 2018-0 Yes 1{spray [address] [facility] (STADOL) 10 6-05 } Nasal [facility] - mg/mL nasal 18:22: route Medic al spray 22 every 4 Center (four) hours as needed for Pain. amitriptyli 2018-0 Yes 10mg QD Take [address] [facility] (ELAVIL) 6-05 by mouth [facility] - 10 MG 18:22: nightly. Medical tablet 22 Center tiZANidine 2018-0 Yes 4mg Take [address] [facility] [address] [facility] (ZANAFLEX) 6-05 by mouth [facility] - 2 MG tablet 18:22: every 6 Med ical 22 (six) Center hours as needed. traMADol 2018-0 Yes 50mg Q.5D Take [address] [facility] (ULTRAM) 50 6-05 by mouth 2 [facility] - mg tablet 18:22: (two) Medical 22 times Center daily. butorphanol 2018-0 Yes 1{spray [address] [facility] (STADOL) 10 6-05 } Nasal [facility] - mg/mL nasal 18:22: route Medic al spray 22 every 4 Center (four) hours as needed for Pain. amitriptyli 2018-0 Yes 10mg QD Take [address] [facility] (ELAVIL) 6-05 by mouth [facility] - 10 MG 18:22: nightly. Medical tablet 22 Center tiZANidine 2018-0 Yes 4mg Take [address] [facility] [address] [facility] (ZANAFLEX) 6-05 by mouth [facility] - 2 MG tablet 18:22: every 6 Med ical 22 (six) Center hours as needed. traMADOL 50 2017-0 Yes 100mg Take 2 Uni vers mg tablet 3-05 tablets by ity of 00:00: mouth [place] 00 every 6 Medical (six) Branch hours as needed for Pain (scale 4-6) or Pain (scale 7-10). traMADOL 50 2017-0 Yes 100mg Take 2 Uni vers mg tablet 3-05 tablets by ity of 00:00: mouth [place] 00 every 6 Medical (six) Branch hours as needed for Pain (scale 4-6) or Pain (scale 7-10). traMADOL 50 2017-0 Yes 100mg Take 2 Uni vers mg tablet 3-05 tablets by ity of 00:00: mouth [place] 00 every 6 Medical (six) Branch hours as needed for Pain (scale 4-6) or Pain (scale 7-10). traMADOL 50 2017 Yes 100mg Take 2 Uni vers mg tablet 3-05 tablets by ity of 00:00: mouth [place] 00 every 6 Medical (six) Branch hours as needed for Pain (scale 4-6) or Pain (scale 7-10). traMADOL 50 Yes 100mg Take 2 Uni vers mg tablet 3-05 tablets by ity of 00:00: mouth [place] 00 every 6 Medical (six) Branch hours as needed for Pain (scale 4-6) or Pain (scale 7-10). traMADOL 50 Yes 100mg Take 2 Uni vers mg tablet 3-05 tablets by ity of 00:00: mouth [place] 00 every 6 Medical (six) Branch hours as needed for Pain (scale 4-6) or Pain (scale 7-10). traMADOL 50 Yes 100mg Take 2 Uni vers mg tablet 3-05 tablets by ity of 00:00: mouth [place] 00 every 6 Medical (six) Branch hours as needed for Pain (scale 4-6) or Pain (scale 7-10). traMADOL 50 Yes 100mg Take 2 Uni vers mg tablet 3-05 tablets by ity of 00:00: mouth [place] 00 every 6 Medical (six) Branch hours as needed for Pain (scale 4-6) or Pain (scale 7-10). traMADOL 50 2016-2020- No 100mg Take 2 [facility] mg tablet 3-05 02-20 tablets by ity of 00:00: 00:00 mouth [place] 00 :00 every 6 Medical (six) Branch hours as needed for Pain (scale 4-6) or Pain (scale 7-10). metroNIDAZO 2015- Yes 500mg Take 1 Uni vers LE (FLAGYL) 2-31 tablet by ity of 500 mg 00:00: mouth [place] tablet 00 every 8 Medical (eight) Branch hours. levoFLOXaci 2015- Yes 500mg Take 1 Uni vers n 500 mg 2-31 tablet by ity of tablet 00:00: mouth [place] 00 every 24 Medical (twenty-fo Branch ur) hours. metroNIDAZO 2015- Yes 500mg Take 1 Uni vers LE (FLAGYL) 2-31 tablet by ity of 500 mg 00:00: mouth [place] tablet 00 every 8 Medical (eight) Branch hours. levoFLOXaci 2015- Yes 500mg Take 1 Uni vers n 500 mg 2-31 tablet by ity of tablet 00:00: mouth [place] 00 every 24 Medical (twenty-fo Branch ur) hours. metroNIDAZO 2015- Yes 500mg Take 1 Uni vers LE (FLAGYL) 2-31 tablet by ity of 500 mg 00:00: mouth [place] tablet 00 every 8 Medical (eight) Branch hours. levoFLOXaci 2015- Yes 500mg Take 1 Uni vers n 500 mg 2-31 tablet by ity of tablet 00:00: mouth [place] 00 every 24 Medical (twenty-fo Branch ur) hours. metroNIDAZO 2015- Yes 500mg Take 1 Uni vers LE (FLAGYL) 2-31 tablet by ity of 500 mg 00:00: mouth [place] tablet 00 every 8 Medical (eight) Branch hours. levoFLOXaci 2015-03 Yes 500mg Take 1 Uni vers n 500 mg 2-31 tablet by ity of tablet 00:00: mouth [place] 00 every 24 Medical (twenty-fo Branch ur) hours. metroNIDAZO 2015-03 Yes 500mg Take 1 Uni vers LE (FLAGYL) 2-31 tablet by ity of 500 mg 00:00: mouth [place] tablet 00 every 8 Medical (eight) Branch hours. levoFLOXaci 2015- Yes 500mg Take 1 Uni vers n 500 mg 2-31 tablet by ity of tablet 00:00: mouth [place] 00 every 24 Medical (twenty-fo Branch ur) hours. metroNIDAZO 2015- Yes 500mg Take 1 Uni vers LE (FLAGYL) 2-31 tablet by ity of 500 mg 00:00: mouth [place] tablet 00 every 8 Medical (eight) Branch hours. levoFLOXaci 2015- Yes 500mg Take 1 Uni vers n 500 mg 2-31 tablet by ity of tablet 00:00: mouth [place] 00 every 24 Medical (twenty-fo Branch ur) hours. metroNIDAZO 2015- Yes 500mg Take 1 Uni vers LE (FLAGYL) 2-31 tablet by ity of 500 mg 00:00: mouth [place] tablet 00 every 8 Medical (eight) Branch hours. levoFLOXaci 2015- Yes 500mg Take 1 Uni vers n 500 mg 2-31 tablet by ity of tablet 00:00: mouth [place] 00 every 24 Medical (twenty-fo Branch ur) hours. metroNIDAZO 2015-03 Yes 500mg Take 1 Uni vers LE (FLAGYL) 2-31 tablet by ity of 500 mg 00:00: mouth [place] tablet 00 every 8 Medical (eight) Branch hours. levoFLOXaci 2015-03 Yes 500mg Take 1 Uni vers n 500 mg 2-31 tablet by ity of tablet 00:00: mouth [place] 00 every 24 Medical (twenty-fo Branch ur) hours. metroNIDAZO 2015-03 Yes 500mg Take 1 Uni vers LE (FLAGYL) 2-31 tablet by ity of 500 mg 00:00: mouth [place] tablet 00 every 8 Medical (eight) Branch hours. levoFLOXaci 2015-03 Yes 500mg Take 1 Uni vers n 500 mg 2-31 tablet by ity of tablet 00:00: mouth [place] 00 every 24 Medical (twenty-fo Branch ur) hours. metroNIDAZO 2015-03 Yes 500mg Take 1 Uni vers LE (FLAGYL) 2-31 tablet by ity of 500 mg 00:00: mouth [place] tablet 00 every 8 Medical (eight) Branch hours. levoFLOXaci 2015-03 Yes 500mg Take 1 Uni vers n 500 mg 2-31 tablet by ity of tablet 00:00: mouth [place] 00 every 24 Medical (twenty-fo Branch ur) hours. metroNIDAZO 2015-03 Yes 500mg Take 1 Uni vers LE (FLAGYL) 2-31 tablet by ity of 500 mg 00:00: mouth [place] tablet 00 every 8 Medical (eight) Branch hours. levoFLOXaci 2015-03 Yes 500mg Take 1 Uni vers n 500 mg 2-31 tablet by ity of tablet 00:00: mouth [place] 00 every 24 Medical (twenty-fo Branch ur) hours. metroNIDAZO 2015-03 Yes 500mg Take 1 Uni vers LE (FLAGYL) 2-31 tablet by ity of 500 mg 00:00: mouth [place] tablet 00 every 8 Medical (eight) Branch hours. levoFLOXaci 2015-03 Yes 500mg Take 1 Uni vers n 500 mg 2-31 tablet by ity of tablet 00:00: mouth [place] 00 every 24 Medical (twenty-fo Branch ur) hours. metroNIDAZO 2015-03 Yes 500mg Take 1 Uni vers LE (FLAGYL) 2-31 tablet by ity of 500 mg 00:00: mouth [place] tablet 00 every 8 Medical (eight) Branch hours. levoFLOXaci 2015-03 Yes 500mg Take 1 Uni vers n 500 mg 2-31 tablet by ity of tablet 00:00: mouth [place] 00 every 24 Medical (twenty-fo Branch ur) hours. proMETHazin 2015-03 2020- No 25mg Take 1 Uni vers e 25 mg 2-31 05-07 tablet by ity of tablet 00:00: 00:00 mouth [place] 00 :00 every 6 Medical (six) Branch hours as needed for Nausea and Vomiting (N/V). HYDROcodone Yes 1{tbl} Take 1 Tab Univers -acetaminop 1-30 by mouth ity of hen (NORCO) 00:00: every 6 [place] 10-325 mg 00 (six) Medical tablet hours as Branch needed for Pain (scale 4-6) or Pain (scale 7-10). HYDROcodone 0 Yes 1{tbl} Take 1 Tab Univers -acetaminop 1-30 by mouth ity of hen (NORCO) 00:00: every 6 [place] 10-325 mg 00 (six) Medical tablet hours as Branch needed for Pain (scale 4-6) or Pain (scale 7-10). HYDROcodone Yes 1{tbl} Take 1 Tab Univers -acetaminop 1-30 by mouth ity of hen (NORCO) 00:00: every 6 [place] 10-325 mg 00 (six) Medical tablet hours as Branch needed for Pain (scale 4-6) or Pain (scale 7-10). HYDROcodone Yes 1{tbl} Take 1 Tab Univers -acetaminop 1-30 by mouth ity of hen (NORCO) 00:00: every 6 [place] 10-325 mg 00 (six) Medical tablet hours as Branch needed for Pain (scale 4-6) or Pain (scale 7-10). HYDROcodone 0 Yes 1{tbl} Take 1 Tab Univers -acetaminop 1-30 by mouth ity of hen (NORCO) 00:00: every 6 [place] 10-325 mg 00 (six) Medical tablet hours as Branch needed for Pain (scale 4-6) or Pain (scale 7-10). HYDROcodone 0 Yes 1{tbl} Take 1 Tab Univers -acetaminop 1-30 by mouth ity of hen (NORCO) 00:00: every 6 [place] 10-325 mg 00 (six) Medical tablet hours as Branch needed for Pain (scale 4-6) or Pain (scale 7-10). HYDROcodone Yes 1{tbl} Take 1 Tab Univers -acetaminop 1-30 by mouth ity of hen (NORCO) 00:00: every 6 [place] 10-325 mg 00 (six) Medical tablet hours as Branch needed for Pain (scale 4-6) or Pain (scale 7-10). HYDROcodone Yes 1{tbl} Take 1 Tab Univers -acetaminop 1-30 by mouth ity of hen (NORCO) 00:00: every 6 [place] 10-325 mg 00 (six) Medical tablet hours as Branch needed for Pain (scale 4-6) or Pain (scale 7-10). HYDROcodone 2015-2020- No 1{tbl} Take 1 Tab Univers -acetaminop 1-30 02-20 by mouth ity of hen (NORCO) 00:00: 00:00 every 6 [place] 10-325 mg 00 :00 (six) Medical tablet hours as Branch needed for Pain (scale 4-6) or Pain (scale 7-10). Immunizations Ordered Filled Immunization Date Status Comments [facility] e Immunization Name Name Influenza Virus 2016-06-01 Completed Universit y of Vaccine [facility] IM 3+ 00:00:00 [facility] Influenza Virus 2016-06-01 Completed Universit y of Vaccine [facility] IM 3+ 00:00:00 [facility] Influenza Virus 2016-06-01 Completed Universit y of Vaccine [facility] IM 3+ 00:00:00 [facility] Influenza Virus 2016-06-01 Completed Universit y of Vaccine [facility] IM 3+ 00:00:00 [facility] Influenza Virus 2016-06-01 Completed Universit y of Vaccine [facility] IM 3+ 00:00:00 [facility] Influenza Virus 2016-06-01 Completed Universit y of Vaccine Quad IM 3+ 00:00:00 [facility] Influenza Virus 2016-06-01 Completed Universit y of Vaccine [facility] IM 3+ 00:00:00 [facility] Influenza Virus 2016-06-01 Completed Universit y of Vaccine [facility] IM 3+ 00:00:00 [facility] Influenza Virus 2016-06-01 Completed Universit y of Vaccine [facility] IM 3+ 00:00:00 [facility] Influenza Virus 2016-06-01 Completed Universit y of Vaccine Quad IM 3+ 00:00:00 [facility] Influenza Virus 2016-06-01 Completed Universit y of Vaccine Quad IM 3+ 00:00:00 [facility] Branch Influenza Virus 2016-06-01 Completed Universit y of Vaccine Quad IM 3+ 00:00:00 [facility] Branch Influenza Virus 2016-06-01 Completed Universit y of Vaccine Quad IM 3+ 00:00:00 [facility] Vital Signs Vital Name Observation Time Observation Value Comments Source Systolic blood 2020-11-03 00:30:00 141 mm[Hg] Univer sity of pressure [facility] Branch Diastolic blood 2020-11-03 00:30:00 85 mm[Hg] Unive rsity of pressure [facility] Branch Heart rate 2020-11-03 00:30:00 83 /min Universi ty of [facility] Respiratory rate 2020-11-03 00:30:00 13 /min Univ ersity of [facility] Branch Oxygen saturation in 2020-11-03 00:30:00 97 /min University of Arterial blood by [facility] Pulse oximetry Branch Body temperature 2020-11-02 18:48:00 37 Stella [facility] [place] [facility] Body weight 2020-11-02 18:48:00 93.441 kg Universi ty of [facility] Branch BMI 2020-11-02 18:48:00 32.26 kg/m2 Universi ty of [facility] Systolic blood 2020-11-03 00:30:00 141 mm[Hg] Univer sity of pressure [facility] Branch Diastolic blood 2020-11-03 00:30:00 85 mm[Hg] Unive rsity of pressure [facility] Branch Heart rate 2020-11-03 00:30:00 83 /min [facility] [place] [facility] Respiratory rate 2020-11-03 00:30:00 13 /min Univ ersity of [facility] Branch Oxygen saturation in 2020-11-03 00:30:00 97 /min University of Arterial blood by [facility] Pulse oximetry Branch Body temperature 2020-11-02 18:48:00 37 Stella [facility] [place] [facility] Body weight 2020-11-02 18:48:00 93.441 kg Universi ty of [facility] BMI 2020-11-02 18:48:00 32.26 kg/m2 [facility] [place] [facility] Systolic blood 2020-08-06 04:05:00 155 mm[Hg] Univer sity of pressure [place] [facility] Diastolic blood 2020-08-06 04:05:00 101 mm[Hg] Unive rsity of pressure [place] [facility] Heart rate 2020-08-06 04:05:00 92 /min [facility] [place] [facility] Respiratory rate 2020-08-06 04:05:00 19 /min [facility] ers[facility] [place] [facility] Oxygen saturation in 2020-08-06 04:05:00 99 /min University of Arterial blood by [place] [facility]ole Pulse oximetry Branch Body temperature 2020-08-06 01:37:00 36.89 Stella [facility] [place] [facility] Body height 2020-08-06 01:37:00 170.2 cm [facility] [place] [facility] Body weight 2020-08-06 01:37:00 93.895 kg [facility] [place] [facility] BMI 2020-08-06 01:37:00 32.42 kg/m2 [facility] [place] [facility] Systolic blood 2020-08-06 04:05:00 155 mm[Hg] Univer sity of pressure [place] [facility] Diastolic blood 2020-08-06 04:05:00 101 mm[Hg] Unive rsity of pressure [place] [facility] Heart rate 2020-08-06 04:05:00 92 /min [facility] [place] [facility] Respiratory rate 2020-08-06 04:05:00 19 /min Univ ersity [facility] [place] [facility] Oxygen saturation in 2020-08-06 04:05:00 99 /min University of Arterial blood by [place] [facility] nicole Pulse oximetry Branch Body temperature 2020-08-06 01:37:00 36.89 Stella [facility] [place] [facility] Body height 2020-08-06 01:37:00 170.2 cm [facility] [place] [facility] Body weight 2020-08-06 01:37:00 93.895 kg [facility] [place] [facility] BMI 2020-08-06 01:37:00 32.42 kg/m2 [facility] [place] [facility] Systolic blood 2020-07-23 01:00:00 140 mm[Hg] Univer sity of pressure [place] [facility] Diastolic blood 2020-07-23 01:00:00 80 mm[Hg] Unive rsity of pressure [place] [facility] Heart rate 2020-07-23 01:00:00 63 /min [facility]i ty [facility] [place] [facility] Respiratory rate 2020-07-23 01:00:00 18 /min Univ ersity [facility] [place] [facility] Oxygen saturation in 2020-07-23 01:00:00 97 /min University of Arterial blood by [place] [facility] nicole Pulse oximetry Branch Body temperature 2020-07-22 22:18:00 37.11 Stella [facility] [place] [facility] Body weight 2020-07-22 22:18:00 97.07 kg [facility]i [facility] [place] [facility] BMI 2020-07-22 22:18:00 33.52 kg/m2 [facility] [place] [facility] Systolic blood 2020-07-23 01:00:00 140 mm[Hg] Univer sity of pressure [place] [facility] Diastolic blood 2020-07-23 01:00:00 80 mm[Hg] Unive rsity of pressure [place] [facility] Heart rate 2020-07-23 01:00:00 63 /min [facility]i [facility] [place] [facility] Respiratory rate 2020-07-23 01:00:00 18 /min Univ ersity [facility] [place] [facility] Oxygen saturation in 2020-07-23 01:00:00 97 /min University of Arterial blood by [place] [facility]ole Pulse oximetry Branch Body temperature 2020-07-22 22:18:00 37.11 Stella [facility] [place] [facility] Body weight 2020-07-22 22:18:00 97.07 kg [facility] [place] [facility] BMI 2020-07-22 22:18:00 33.52 kg/m2 [facility] [place] [facility] Systolic blood 2020-05-20 00:00:00 156 mm[Hg] Univer sity of pressure [place] [facility] Diastolic blood 2020-05-20 00:00:00 94 mm[Hg] Unive rsity of pressure [place] [facility] Heart rate 2020-05-20 00:00:00 90 /min [facility] [place] [facility] Respiratory rate 2020-05-20 00:00:00 18 /min Univ ersity [facility] [place] [facility] Oxygen saturation in 2020-05-20 00:00:00 96 /min University of Arterial blood by [place] [facility]ole Pulse oximetry Branch Body temperature 2020-05-19 21:37:00 37.11 Stella [facility] [place] [facility] Body height 2020-05-19 21:37:00 170.2 cm [facility] [place] [facility] Body weight 2020-05-19 21:37:00 93.441 kg [facility] [place] [facility] BMI 2020-05-19 21:37:00 32.26 kg/m2 [facility] [place] [facility] Systolic blood 2020-05-20 00:00:00 156 mm[Hg] Univer sity of pressure [place] [facility] Diastolic blood 2020-05-20 00:00:00 94 mm[Hg] Unive rsity of pressure [place] [facility] Heart rate 2020-05-20 00:00:00 90 /min [facility] [place] [facility] Respiratory rate 2020-05-20 00:00:00 18 /min [facility] [place] [facility] Oxygen saturation in 2020-05-20 00:00:00 96 /min University of Arterial blood by [place] [facility]ole Pulse oximetry Branch Body temperature 2020-05-19 21:37:00 37.11 Stella [facility] [place] [facility] Body height 2020-05-19 21:37:00 170.2 cm [facility] [place] [facility] Body weight 2020-05-19 21:37:00 93.441 kg [facility] [place] [facility] BMI 2020-05-19 21:37:00 32.26 kg/m2 [facility] [place] [facility] Systolic blood 2019-08-22 07:00:00 165 mm[Hg] Univer sity of pressure [place] [facility] Diastolic blood 2019-08-22 07:00:00 127 mm[Hg] Unive rsity of pressure [place] [facility] Heart rate 2019-08-22 07:00:00 99 /min [facility] [place] [facility] Respiratory rate 2019-08-22 07:00:00 14 /min [facility] [place] [facility] Oxygen saturation in 2019-08-22 07:00:00 97 /min [facility] Arterial blood by [place] [facility] Pulse oximetry Branch Body temperature 2019-08-22 04:58:00 37.5 Stella [facility] [place] [facility] Body weight 2019-08-22 04:58:00 92.987 kg [facility] [place] [facility] BMI 2019-08-22 04:58:00 32.11 kg/m2 [facility]i ty of [facility] Systolic blood 2019-08-22 07:00:00 165 mm[Hg] Univer sity of pressure [facility] Branch Diastolic blood 2019-08-22 07:00:00 127 mm[Hg] Unive rsity of pressure [facility] Heart rate 2019-08-22 07:00:00 99 /min [facility]i ty of [facility] Respiratory rate 2019-08-22 07:00:00 14 /min Univ ersity of [facility] Oxygen saturation in 2019-08-22 07:00:00 97 /min University of Arterial blood by [facility] Pulse oximetry Branch Body temperature 2019-08-22 04:58:00 37.5 Stella [facility] [address] Body weight 2019-08-22 04:58:[address] [facility] BMI 2019-08-22 04:58:00 32.11 kg/m2 Universi ty of [facility] Systolic blood 2019-08-04 19:56:00 133 mm[Hg] Univer sity of pressure [facility] Diastolic blood 2019-08-04 19:56:00 91 mm[Hg] Unive rsity of pressure [facility] Heart rate 2019-08-04 19:47:00 107 /min [facility]i ty of [facility] Body temperature 2019-08-04 19:47:00 37.06 Stella [facility] [address] Respiratory rate 2019-08-04 19:47:00 20 /min Univ ersity of [facility] Body height 2019-08-04 19:47:00 170.[address] [facility] Body weight 2019-08-04 19:47:[address] [facility] BMI 2019-08-04 19:47:00 33.83 kg/m2 [facility]i ty of [facility] Oxygen saturation in 2019-08-04 19:47:00 100 /min [facility] of Arterial blood by [facility] Pulse oximetry Branch Procedures Procedure Date / Time Performing Clinician Source Performed CT ABDOMEN PELVIS W 2020-11-02 22:44:07 Amari Maza [facility] [place] CONTRAST [facility] Branch MAGNESIUM 2020-11-02 22:10:00 Amari Maza [place] [facility] TROPONIN I 2020-11-02 22:10:00 Amari Maza [facility] COMP. METABOLIC PANEL 2020-11-02 22:10:[address] [facility] ([id number]) Medical Branch CBC WITH DIFF 2020-11-02 22:10:00 Amari Maza [facility] o [facility] URINALYSIS 2020-11-02 22:10:00 Amari Maza [facility] NOTICE OF PRIVACY 2020-11-02 18:42:52 Doctor Unassigned, [facility] PRACTICES [facility] CONSENT/REFUSAL FOR 2020-11-02 18:39:42 Doctor Unassigned, [facility] DIAGNOSIS AND TREATMENT [facility] CT ABDOMEN PELVIS W 2020-08-06 03:33:07 Mayte Lamb [facility] CONTRAST Medical Branch COVID-19 (ID NOW RAPID 2020-08-06 02:57:00 Mayte Lamb [facility] TESTING) Medical Branch LIPASE 2020-08-06 02:22:00 Mayte Lamb [facility] COMP. METABOLIC PANEL 2020-08-06 02:22:00 Mayte Lamb [facility] ([id number]) [facility] [place] CBC WITH DIFF 2020-08-06 02:22:00 Mayte Lamb [facility] LACTIC ACID WHOLE BLOOD 2020-08-06 02:22:00 Mayte Lamb [facility] URINALYSIS 2020-08-06 01:42:00 Jose Cruz Prakash [facility] CONSENT/REFUSAL FOR 2020-08-06 01:26:13 Doctor Unassigned, [facility] DIAGNOSIS AND TREATMENT [facility] COVID-19 (ID NOW RAPID 2020-07-23 00:39:00 Mayte Lamb [facility] TESTING) Medical Branch CT CERVICAL SPINE WO 2020-07-22 23:06:25 Mayte Lamb [facility] CONTRAST Medical Branch CT HEAD WO CONTRAST 2020-07-22 23:06:25 Mayte Lamb [facility] XR CHEST 1 VW 2020-07-22 22:53:06 Mayte Lamb [facility] LIPASE 2020-07-22 22:51:00 Mayte Lamb [facility] TROPONIN I 2020-07-22 22:51:00 Mayte Lamb [facility] FREE T4 2020-07-22 22:51:00 Mayte Lamb [facility] THYROID STIMULATING 2020-07-22 22:51:00 Hailee Lamb Isaac [facility] HORMONE [facility] HEPATIC FUNCTION PANEL 2020-07-22 22:51:00 Mayte Lamb [facility] ([id number]) (ALB,T.PRO,BILI Medical Branch T,BU/BC,ALT,AST,ALK PHOS) BASIC METABOLIC PANEL 2020-07-22 22:51:00 Mayte Lamb [facility] (NA, K, CL, CO2, GLUCOSE, Medica l Branch BUN, CREATININE, CA) CBC WITH DIFF 2020-07-22 22:51:00 Mayte Lamb [facility] URINALYSIS 2020-07-22 22:51:00 Mayte Lamb [facility] N-TERMINAL PRO-BNP 2020-07-22 22:51:00 Mayte Lamb [facility] POCT GLUCOSE (AUTOMATED) 2020-07-22 22:17:00 Doctor Shy, [facility] Name [facility] CONSENT/REFUSAL FOR 2020-07-22 22:08:56 Doctor Shy [facility] DIAGNOSIS AND TREATMENT [place] [facility] MEDICATION CORRESPONDENCE 2020-06-17 05:01:00 Doctor Shy, [facility] [place] [facility] [place] LIPASE 2020-05-19 22:05:00 Pastora Esparza [facility] COMP. METABOLIC PANEL 2020-05-19 22:05:[address] [facility] ([id number]) Medical Branch CBC WITH DIFF 2020-05-19 22:05:00 Pastora Epsarza [facility] URINALYSIS 2020-05-19 22:05:00 Pastora Esparza [facility] NOTICE OF PRIVACY 2020-05-19 21:27:02 Doctor Shy, [facility] [place] Medical Branch CONSENT/REFUSAL FOR 2020-05-19 21:26:36 Doctor Shy [facility] DIAGNOSIS AND TREATMENT [place] [facility] [place] POCT GLUCOSE (AUTOMATED) 2019-08-22 07:05:00 Jose Cruz Prakash [facility] LIPASE 2019-08-22 05:18:00 Jose Cruz Prakash [facility] COMP. METABOLIC PANEL 2019-08-22 05:18:00 Jose Cruz Prakash [facility] ([id number]) Medical Branch CBC WITH DIFFERENTIAL 2019-08-22 05:18:00 Jose Cruz Prakash [facility] URINALYSIS 2019-08-22 05:05:00 Jose Cruz Prakash [facility] COVID-19 (ID NOW RAPID 2019-08-22 05:04:00 Jose Cruz Prakash [facility] TESTING) Medical Branch ASSIGNMENT OF BENEFITS 2019-08-22 04:32:23 Doctor Shy [facility] Name [facility] [place] NOTICE OF PRIVACY 2019-08-22 04:32:08 Doctor Shy [facility] [place] [facility] CONSENT/REFUSAL FOR 2019-08-22 04:31:55 Doctor Shy [facility] DIAGNOSIS AND TREATMENT [place] [facility] Encounters Start End Encounter Admission Attending Care Care Encounter Source Date/Time Date/Time Type Type Clinicians Facility Department ID 2021-01-28 Emergency [facility] [id number] [facility] 2021-01-27 Emergency [facility] [id number] [facility]:59[facility]27 Emergency [facility] [id number] [facility]:07[facility]-01-27 Emergency [facility] [id number] Univers 00:15:[address] [facility] 2021-01-26 Emergency [facility] [id number] Univers 10:55:[address] [facility] 2021-01-24 Emergency [facility] [id number] Univers 22:08:[address] [facility] 2020-10-20 Inpatient U [facility] MED [id number] Mem oria 11:58:00 l [facility] 2020-11-02 2020-11-02 Emergency Amari Maza [facility] [id number] Univers 13:53:00 20:06:00 Cristina [place] 350.1.13.10 i ty of [place] 4.2.7.2.686 [facility] [id number] [address] 2020-11-02 2020-11-02 Emergency Amari Maza [facility] 1.2.840.114 [id number] 13:53:00 20:06:00 Cristina [place] 350.1.13.10 [place] 4.2.7.2.686 [place] [id number] [facility] 2020-08-05 2020-08-05 [facility] 1.2.840.114 [id number] Univers 20:44:00 23:55:00 Haileeo Isaac [place] 350.1.13.10 ity of [place] 4.2.7.2.686 [facility] [id number] [address] 2020-08-05 2020-08-05 [facility] 1.2.840.114 [id number] 20:44:00 23:55:00 Folbrunildao F [place] 350.1.13.10 [place] 4.2.7.2.686 [place] [phone] [facility] 2020-07-22 2020-07-22 [facility] 1.2.840.114 [id number] Univers 17:17:00 20:14:00 Folusho F [place] 350.1.13.10 ity of [place] 4.2.7.2.[address] [facility] [id number] [place] [address] Branch 2020-07-22 2020-07-22 Emergency Ibtinaunle, [facility] 1.2.840.114 [id number] 17:17:00 20:14:00 Annachrissy Gray Erick 350.1.13.10 [place] 4.2.7.2.686 [place] [id number] [facility] 2020-06-17 2020-06-17 Orders Doctor ESCALONA 1.2.840.114 [id number] [facility] 00:00:00 00:00:00 Only Unassigned, GREGORY 350.1.13.10 ity of [place] [facility] [address] [place] [address] [phone] [place] [address] Branch 2020-06-17 2020-06-17 Orders Doctor ESCALONA 1.2.840.114 [id number] 00:00:00 00:00:00 Only Unassigned, GREGORY 350.1.13.10 [place] [facility] 4.2.7.2.68 [id number] [facility] 2020-05-19 2020-05-19 Emergency [facility] [id number] [facility] 15:45:00 18:07:00 Pastora Yousif [place]rick 350.1.13.10 i ty of [place] [address] [place] [address] [phone] [place] [address] Branch 2020-05-19 2020-05-19 Emergency [place], [facility] [id number] 15:45:00 18:07:00 Pastora Yousif [place]rick 350.1.13.10 [place] [address] [place] [address] [id number] [facility] 2019-08-21 2019-08-22 Emergency [facility], [facility] [id number] [facility] 23:48:04 02:26:00 Jose Cruz Suarez 350.1.13.10 ity of [place] [address].7.[address] [place] [address] [phone] [place] [address] Branch 2019-08-21 2019-08-22 Emergency [facility], [facility] [id number] 23:48:04 02:26:00 Jose Cruz Suarez 350.1.13.10 [place] 4.2.7.2.686 [place] [id number] 084 2019-08-06 2019-08-06 Telephone IQRA Barragan 1.2.840.114 [id number] [facility] 00:00:00 00:00:00 Apoorva GREGORY 350.1.13.10 it y of HOSPITAL 4.2.7.2.686 Roberto as [phone] [address] 2019-08-06 2019-08-06 Telephone IQRA Box [id number] [facility] 00:00:00 00:00:00 Jinny GREGORY 350.1.13.10 it y of HOSPITAL 4.2.7.2.686 Roberto as [id number] [address] 2019-08-06 2019-08-06 Telephone IQRA Barragan 1.2.840.114 [id number] 00:00:00 00:00:00 Apoorva GREGORY 350.1.13.10 [facility] 4.2.7.2.686 [id number] 019 2019-08-06 2019-08-06 Telephone IQRA Box [id number] 00:00:00 00:00:00 Jinny GREGORY 350.1.13.10 [facility] 4.2.7.2.686 [id number] 019 2019-08-05 2019-08-05 Telephone Shankar [facility] 1.2.840.114 [id number] [facility] 00:00:00 00:00:00 [facility] 350.1.13.10 it y of [place] 4.2.7.2.686 Roberto as Professio [id number] [address] Office Building One 2019-08-05 2019-08-05 Telephone IQRA Box [id number] Univers 00:00:00 00:00:00 Jinny ZHOUY 350.1.13.10 it y of [facility] 4.2.7.2.686 Roberto as [id number] [address] 2019-08-05 2019-08-05 Telephone IQRA Box [id number] 00:00:00 00:00:00 Jinny JENKINS 350.1.13.10 [facility] 4.2.7.2.686 [id number] 019 2019-08-04 2019-08-04 Urgent Pob1, Acute Care Clinic [facility] 1. 2.840.114 [id number] Univers 14:42:35 15:59:50 [facility] 350.1.13.10 ity [facility] 4.2.7.2.686 Roberto as Professio [phone] [place] [address] Branch [address] 2019-08-04 2019-08-04 Outpatient R [facility] [id number] Univers 15:00:00 15:00:00 [facility] 2019-08-04 2019-08-04 Outpatient R [facility] [id number] Univers 09:40:00 09:40:00 [facility] Results Test Test Test Results Result Source Description Time Comments Comments CT ABDOMEN 2020-10- 1. ?No bowel [facility] of PELVIS W 06 obstruction, [place] [facility] CONTRAST 23:22:24 appendicitis, free air, B ranch free fluid, or focalloculated intraperitoneal fluid collections.2. Limited stool throughout the colon with multiple colonic air-fluidlevels present. Findings are suggestive of an enterocolitis or colitis.Please correlate clinically and with history.3. Status post cholecystectomy. RL: 135 END OF REPORT ORDERING PHYSICIAN:Amari TOM CLINICAL INFORMATION: ? Abdominal pain, acute, nonlocalized COMPARISON: 08/05/2020 Technique: ? CT of the abdomen and pelvis was performed after theadministration of IV contrast. No p.o. contrast was used. Multiplanarreformats were also obtained. This study was performed according to ALARAprinciple for radiation dose reduction. Findings: There is no evidence of obstructive uropathy. No suspicious renalparenchymal abnormalities are seen. Gallbladder surgically absent. Liver,spleen, adrenal glands, and pancreas show no evidence of grossabnormalities. There is no bowel obstruction. There is no appendicitis.Liquid stool is seen throughout the colon with multiple colonic air-fluidlevels present. No free air or free fluid is seen in the upper pelvis. Nopathologically enlarged lymph nodes are seen in the abdomen or pelvis. Lungbases are clear. No suspicious focal osseous lesions are seen. [facility], Radiant Results Inft User - 11/02/2020 6:23 PM CDT ORDERING PHYSICIAN:Amari MAZA CLINICAL INFORMATION: Abdominal pain, acute, nonlocalized COMPARISON: 08/05/2020Technique: CT of the abdomen and pelvis was performed after theadministration of IV contrast. No p.o. contrast was used. Multiplanarreformats were also obtained. This study was performed according to ALARAprinciple for radiation dose reduction.Findings:There is no evidence of obstructive uropathy. No suspicious renalparenchymal abnormalities are seen. Gallbladder surgically absent. Liver,spleen, adrenal glands, and pancreas show no evidence of grossabnormalities. There is no bowel obstruction. There is no appendicitis.Liquid stool is seen throughout the colon with multiple colonic air-fluidlevels present. No free air or free fluid is seen in the upper pelvis. Nopathologically enlarged lymph nodes are seen in the abdomen or pelvis. Lungbases are clear. No suspicious focal osseous lesions are seen.IMPRESSION1. No bowel obstruction, appendicitis, free air, free fluid, or focalloculated intraperitoneal fluid collections.2. Limited stool throughout the colon with multiple colonic air-fluidlevels present. Findings are suggestive of an enterocolitis or colitis.Please correlate clinically and with history.3. Status post cholecystectomy.RL: 135END OF REPORT ONIN I 2020-11-02 22:49:10 Test Item Value Reference Range Interpretation Comme nts TROPONIN I (test code = 0.000 ng/mL See_Comment [Au tomated message] The 0568174257) system which nerated this result tra nsmitted reference range : <=0.034. The reference r farrah was not used to int erpret this result as normal/abnormal . FALLON (test code = FALLON) Reference (Normal) Range (defined by the 99th percentile reference limit): <= 0.034 ng/mL Note: Cardiac troponin begins to rise 3-4 hours after the onset of ischemia. Repeat in 4-6 hours if the sample was drawn within 3-4 hours of the onset of the symptom and found normal. Diagnosis of myocardial injury is made with acute changes in cTn concentrations with at least one serial sample above the 99th percentile upper reference limit (URL), taken together with the patient's clinical presentation. Biotin has been reported to cause a negative bias, interpret results relative to patient's use of biotin. Lab Interpretation Normal (test code = 46949-0) [facility]02 Test Item Value Reference Range Interpretation Comments APPEARANCE (test code = Clear Clear 0665699236) COLOR (test code = Yellow Yellow 3544070088) PH (test code = 4.8-8.0 5905664702) SP GRAVITY (test code = 1.003-1.030 5931073213) GLU U QUAL (test code = 50 mg/dL Normal A 9754189920) BLOOD (test code = 3+ Negative A 0423863493) KETONES (test code = Negative Negative 6180813972) PROTEIN (test code = Negative Negative 2887-8) UROBILIN (test code = Normal Normal 2480100046) BILIRUBIN (test code = Negative Negative 2039421364) NITRITE (test code = Negative Negative 3540888531) LEUK PARTH (test code = 25/uL Negative A 6887809729) RBC/HPF (test code = See_Comment [Autom ated message] 0781234564) The system obopay generated this result transmitted ref erence range: 0 - 3 HP F. The reference range was not used to int erpret this result as normal/abnormal . WBC/HPF (test code = See_Comment [Autom ated message] 7340392923) The system obopay generated this result transmitted ref erence range: 0 - 5 HP F. The reference range was not used to int erpret this result as normal/abnormal . BACTERIA (test code = Negative Negative 4348595729) MUCOUS (test code = Slight Negative LPF A 5528273327) SQ EPITH (test code = HPF 3816234021) Lab Interpretation (test Abnormal code = 12250-3) [facility] 22[facility]38:26 Test Item Value Reference Range Interpretation Comments MAGNESIUM (test code = 6076218267) 1.4 mg/dL 1.7-2.4 L Lab Interpretation (test code = Abnormal 78763-1) [facility]. METABOLIC PANEL (97338)2020-11-02 22:38:11 Test Item Value Reference Range Interpretation Comments NA (test code = 139 mmol/L 135-145 1353278462) K (test code = 3.7 mmol/L 3.5-5.0 7075027779) CL (test code = 102 mmol/L 98-108 0842759111) CO2 TOTAL (test code = 24 mmol/L 23-31 6342042347) AGAP (test code = 2-16 6882506018) BUN (test code = 16 mg/dL 7-23 1271457208) GLUCOSE (test code = 183 mg/dL 70-110 H 7369759077) CREATININE (test code = 0.64 mg/dL 0.50-1.04 9559556743) TOTAL BILI (test code = 0.2 mg/dL 0.1-1.6 0203992450) CALCIUM (test code = 10.4 mg/dL 8.6-10.6 8857018048) T PROTEIN (test code = 8.5 g/dL 6.3-8.2 H 2866345347) ALBUMIN (test code = 4.8 g/dL 3.5-5.0 5376192505) ALK PHOS (test code = 103 U/L 34-122 6692960249) ALTv (test code = 20 U/L 5-35 1742-6) AST(SGOT) (test code = 21 U/L 13-40 6127874187) eGFR (test code = mL/min/1.73m2 6807845176) FALLON (test code = FALLON) Association of Glomerular Filtration Rate (GFR) and Staging of Kidney Disease* + --+ --+ ------+| GFR (mL/min/1.73 m2) ?| With Kidney Damage ?| ?Without Kidney Damage+ --------+ --------+ +| ?>90 ?| ?Stage one ?| ? Normal ?+ ---+ ---+ -------+| ?60-89 ?| ?Stage two ?| ? Decreased GFR ? + --+ --+ ------+| ?30-59 ?| ?Stage three ?| ? Stage three ? + --+ --+ ------+| ?15-29 ?| ?Stage four ? | ? Stage four ?+ ---+ ---+ -------+| ?<15 (or dialysis) ? ?| ?Stage five ? | ? Stage five ?+ ---+ ---+ -------+ *Each stage assumes the associated GFR level has been in effect for at least three months. ?Stages 1 to 5, with or without kidney disease, indicate chronic kidney disease. Notes: Determination of stages one and two (with eGFR >59mL/min/1.73 m2) requires estimation of kidney damage for at least three months as defined by structural or functional abnormalities of the kidney, manifested by either:Pathological abnormalities or Markers of kidney damage (including abnormalities in the composition of the blood or urine or abnormalities in imaging tests). Lab Interpretation Abnormal (test code = 21164-6) [facility] WITH [id number] 22:33:08 Test Item Value Reference Range Interpretation Comments WBC (test code = See_Comment [Automated 4560-2) message] The sy stem which generated this result transmitted reference range : 4.30 - 11.10 10*3/?L. The reference range was not used to interpret this result as normal/abnormal . RBC (test code = See_Comment [Automated 812-8) message] The sy stem which generated this result transmitted reference range : 3.93 - 5.25 10*6/?L. The reference range was not used to interpret this result as normal/abnormal . HGB (test code = 13.5 g/dL 11.6-15.0 718-7) HCT (test code = 42.2 % 35.7-45.2 4544-3) MCV (test code = 80.8 fL 80.6-95.5 787-2) MCH (test code = 25.9 pg 25.9-32.8 785-6) MCHC (test code = 32.0 g/dL 31.6-35.1 786-4) RDW-SD (test code = 38.5 fL 39.0-49.9 L 38974-2) RDW-CV (test code = 13.3 % 12.0-15.5 788-0) PLT (test code = See_Comment [Automated 777-3) message] The sy stem which generated this result transmitted reference range : 166 - 358 10*3/ ?L. The reference r farrah was not used to interpret this result as normal/abnormal . MPV (test code = 10.5 fL 9.5-12.9 39394-5) NRBC/100 WBC (test See_Comment [Automat ed code = 6448440444) message] The system which generated this result transmitted reference range : 0.0 - 10.0 /100 WBCs. The refer ence range was not u sed to interpret th is result as normal/abnormal . NRBC x10^3 (test code <0.01 See_Comment [Auto mated = 0304348768) message] The s ystem which generated this result transmitted reference range : 10*3/?L. The reference range was not used to interpret this result as normal/abnormal . GRAN MAT (NEUT) % 52.3 % (test code = 770-8) IMM GRAN % (test code 0.40 % = 4412572163) LYMPH % (test code = 37.8 % 736-9) MONO % (test code = 7.3 % 5905-5) EOS % (test code = 1.7 % 713-8) BASO % (test code = 0.5 % 706-2) GRAN MAT x10^3(ANC) 5.25 10*3/uL 1.88-7.09 (test code = 8847937679) IMM GRAN x10^3 (test 0.04 10*3/uL 0.00-0.06 code = 4224760918) LYMPH x10^3 (test code 3.79 10*3/uL 1.32-3.29 H = 731-0) MONO x10^3 (test code 0.73 10*3/uL 0.33-0.92 = 742-7) EOS x10^3 (test code = 0.17 10*3/uL 0.03-0.39 711-2) BASO x10^3 (test code 0.05 10*3/uL 0.01-0.07 = 704-7) Lab Interpretation Abnormal (test code = 49551-3) [facility]-19 (ID NOW RAPID TESTING)2020-08-06 03:39:43 Test Item Value Reference Range Interpretation Comments SARS-CoV-2 Rapid ID NOW Not Detected Not Detected (test code = 64406-3) FALLON (test code = FALLON) ID NOW COVID-19 Assay is an isothermal nucleic acid amplification test intended for the qualitative detection of nucleic acid from SARS-CoV-2 viral RNA in nasopharyngeal (EDGE BONDER) specimens. It is used under Emergency Use Authorization (EUA) by FDA. The limit of detection (LOD) of the assay is 125 Genome Equivalents/mL. A positive result is indicative of the presence of SARS-CoV-2 RNA. ?Clinical correlation with patient history and other diagnostic [...] for repeat patient testing if clinically indicated. Lab Interpretation Normal (test code = 81356-7) [facility]. METABOLIC PANEL (67803)2020-08-06 03:11:02 Test Item Value Reference Range Interpretation Comments NA (test code = 138 mmol/L 135-145 9478199150) K (test code = 4.6 mmol/L 3.5-5.0 9504850810) CL (test code = 102 mmol/L 98-108 7881511915) CO2 TOTAL (test code = 23 mmol/L 23-31 9590002803) AGAP (test code = 2-16 0396345682) BUN (test code = 17 mg/dL 7-23 8032969485) GLUCOSE (test code = 477 mg/dL 70-110 HH 9054050959) CREATININE (test code = 0.70 mg/dL 0.50-1.04 3865513520) TOTAL BILI (test code = 0.6 mg/dL 0.1-1.7 6579900860) CALCIUM (test code = 9.4 mg/dL 8.6-10.6 9167028447) T PROTEIN (test code = 7.4 g/dL 6.3-8.2 6726153480) ALBUMIN (test code = 4.4 g/dL 3.5-5.0 9663293530) ALK PHOS (test code = 113 U/L 34-122 6024491014) ALTv (test code = 22 U/L 5-35 1742-6) AST(SGOT) (test code = 35 U/L 13-40 3818725963) eGFR (test code = mL/min/1.73m2 3011124463) FALLON (test code = FALLON) Association of Glomerular Filtration Rate (GFR) and Staging of Kidney Disease* + --+ --+ ------+| GFR (mL/min/1.73 m2) ?| With Kidney Damage ?| ?Without Kidney Damage+ --------+ --------+ +| ?>90 ?| ?Stage one ?| ? Normal ?+ ---+ ---+ -------+| ?60-89 ?| ?Stage two ?| ? Decreased GFR ? + --+ --+ ------+| ?30-59 ?| ?Stage three ?| ? Stage three ? + --+ --+ ------+| ?15-29 ?| ?Stage four ? | ? Stage four ?+ ---+ ---+ -------+| ?<15 (or dialysis) ? ?| ?Stage five ? | ? Stage five ?+ ---+ ---+ -------+ *Each stage assumes the associated GFR level has been in effect for at least three months. ?Stages 1 to 5, with or without kidney disease, indicate chronic kidney disease. Notes: Determination of stages one and two (with eGFR >59mL/min/1.73 m2) requires estimation of kidney damage for at least three months as defined by structural or functional abnormalities of the kidney, manifested by either:Pathological abnormalities or Markers of kidney damage (including abnormalities in the composition of the blood or urine or abnormalities in imaging tests). Lab Interpretation Abnormal (test code = 49505-1) [facility] [id number] 03:07:41 Test Item Value Reference Range Interpretation Comments LIPASE (test code = 5140430987) 169 U/L 0-220 Lab Interpretation (test code = Normal 84237-7) [facility] Nvgnpzeumdbi0514-90-87 02:40:54 Test Item Value Reference Range Interpretation Comments WBC (test code = See_Comment [Automated 6690-2) message] The sy stem which generated this result transmitted reference range : 4.30 - 11.10 10*3/?L. The reference range was not used to interpret this result as normal/abnormal . RBC (test code = See_Comment H [Automated 789-8) message] The sy stem which generated this result transmitted reference range : 3.93 - 5.25 10*6/?L. The reference range was not used to interpret this result as normal/abnormal . HGB (test code = 13.6 g/dL 11.6-15.0 718-7) HCT (test code = 41.6 % 35.7-45.2 4544-3) MCV (test code = 78.8 fL 80.6-95.5 L 787-2) MCH (test code = 25.8 pg 25.9-32.8 L 785-6) MCHC (test code = 32.7 g/dL 31.6-35.1 786-4) RDW-SD (test code = 38.2 fL 39.0-49.9 L 14009-0) RDW-CV (test code = 13.5 % 12.0-15.5 788-0) PLT (test code = See_Comment [Automated 777-3) message] The sy stem which generated this result transmitted reference range : 166 - 358 10*3/ ?L. The reference r farrah was not used to interpret this result as normal/abnormal . MPV (test code = 10.7 fL 9.5-12.9 71601-6) NRBC/100 WBC (test See_Comment [Automat ed code = 1795170002) message] The system which generated this result transmitted reference range : 0.0 - 10.0 /100 WBCs. The refer ence range was not u sed to interpret th is result as normal/abnormal . NRBC x10^3 (test code <0.01 See_Comment [Auto mated = 2646620710) message] The s ystem which generated this result transmitted reference range : 10*3/?L. The reference range was not used to interpret this result as normal/abnormal . GRAN MAT (NEUT) % 62.1 % (test code = 770-8) IMM GRAN % (test code 0.70 % = 4461627978) LYMPH % (test code = 29.4 % 736-9) MONO % (test code = 5.2 % 5905-5) EOS % (test code = 1.9 % 713-8) BASO % (test code = 0.7 % 706-2) GRAN MAT x10^3(ANC) 6.64 10*3/uL 1.88-7.09 (test code = 7184693848) IMM GRAN x10^3 (test 0.07 10*3/uL 0.00-0.06 H code = 9242142726) LYMPH x10^3 (test code 3.14 10*3/uL 1.32-3.29 = 731-0) MONO x10^3 (test code 0.56 10*3/uL 0.33-0.92 = 742-7) EOS x10^3 (test code = 0.20 10*3/uL 0.03-0.39 711-2) BASO x10^3 (test code 0.07 10*3/uL 0.01-0.07 = 704-7) Lab Interpretation Abnormal (test code = 40091-6) [facility] [id number] 02:27:55 Test Item Value Reference Range Interpretation Comments LACTIC ACID (test code = 2.34 mmol/L 0.50-2.20 H 8442344659) Lab Interpretation (test code = Abnormal 29183-2) [facility] 02:03:28 Test Item Value Reference Range Interpretation Comments APPEARANCE (test code = Cloudy Clear A 5939700035) COLOR (test code = Yellow Yellow 2648630954) PH (test code = 4.8-8.0 6719894486) SP GRAVITY (test code = 1.003-1.030 H 9141090194) GLU U QUAL (test code = 500 mg/dL Normal A 4677052230) BLOOD (test code = Negative Negative 2363900894) KETONES (test code = Negative Negative 4456421527) PROTEIN (test code = Negative Negative 2887-8) UROBILIN (test code = Normal Normal 7350316214) BILIRUBIN (test code = Negative Negative 2309232652) NITRITE (test code = Negative Negative 9792620705) [place] (test code = 250/uL Negative A 3262988528) RBC/HPF (test code = See_Comment [Autom ated message] 2745088632) The system obopay generated this result transmit jeny reference range : 0 - 3 HPF. The refe rence range was not u sed to interpret th is result as normal/abnormal . WBC/HPF (test code = See_Comment H [Autom ated message] 5562214764) The system obopay generated this result transmit jeny reference range : 0 - 5 HPF. The refe rence range was not u sed to interpret th is result as normal/abnormal . BACTERIA (test code = Few Negative A 8558456672) MUCOUS (test code = Slight Negative LPF A 0870976714) SQ EPITH (test code = HPF 7768041888) Lab Interpretation (test Abnormal code = 33096-0) [facility]2020-07-23 01:04:25 Test Item Value Reference Range Interpretation Comments SARS-CoV-2 Rapid ID NOW Not Detected Not Detected (test code = 12386-4) FALLON (test code = FALLON) ID NOW COVID-19 Assay is an isothermal nucleic acid amplification test intended for the qualitative detection of nucleic acid from SARS-CoV-2 viral RNA in nasopharyngeal (EDGE BONDER) specimens. It is used under Emergency Use Authorization (EUA) by FDA. The limit of detection (LOD) of the assay is 125 Genome Equivalents/mL. A positive result is indicative of the presence of SARS-CoV-2 RNA. ?Clinical correlation with patient history and other diagnostic [...] for repeat patient testing if clinically indicated. Lab Interpretation Normal (test code = 57620-8) [facility] [id number] 23:54:39 Test Item Value Reference Range Interpretation Comments TSH (test code = See_Comment [Automated message] 8470388497) The system obopay generated this result transmitted ref erence range: 0.45 - 4 .70 mIU/L. The refe rence range was not u sed to interpret this result as normal/abnor mal. Lab Interpretation (test Normal code = 24777-5) [facility] [id number] 23:43:00 Test Item Value Reference Range Interpretation Comments FREE T4 (test code = See_Comment [Autom ated message] 1317858306) The system obopay generated this result transmitted ref erence range: 0.78 - 2 .20 ng/dL:. The ref erence range was not u sed to interpret this result as normal/abnor mal. Lab Interpretation (test Normal code = 98679-2) [facility] Metabolic Panel (NA, K, CL, CO2, GLUCOSE, BUN, CREATININE, CA)2020-07-22 23:41:03 Test Item Value Reference Range Interpretation Comments NA (test code = 136 mmol/L 135-145 2336106744) K (test code = 4.0 mmol/L 3.5-5.0 3431302251) CL (test code = 97 mmol/L 98-108 L 4154425907) CO2 TOTAL (test code = 30 mmol/L 23-31 1886486816) AGAP (test code = 2-16 9378818408) BUN (test code = 10 mg/dL 7-23 0772491061) GLUCOSE (test code = 483 mg/dL 70-110 HH 5626459660) CREATININE (test code = 0.64 mg/dL 0.50-1.04 3629783279) CALCIUM (test code = 9.5 mg/dL 8.6-10.6 6272776484) eGFR (test code = mL/min/1.73m2 6876023911) FALLON (test code = FALLON) Association of Glomerular Filtration Rate (GFR) and Staging of Kidney Disease* + --+ --+ ------+| GFR (mL/min/1.73 m2) ?| With Kidney Damage ?| ?Without Kidney Damage+ --------+ --------+ +| ?>90 ?| ?Stage one ?| ? Normal ?+ ---+ ---+ -------+| ?60-89 ?| ?Stage two ?| ? Decreased GFR ? + --+ --+ ------+| ?30-59 ?| ?Stage three ?| ? Stage three ? + --+ --+ ------+| ?15-29 ?| ?Stage four ? | ? Stage four ?+ ---+ ---+ -------+| ?<15 (or dialysis) ? ?| ?Stage five ? | ? Stage five ?+ ---+ ---+ -------+ *Each stage assumes the associated GFR level has been in effect for at least three months. ?Stages 1 to 5, with or without kidney disease, indicate chronic kidney disease. Notes: Determination of stages one and two (with eGFR >59mL/min/1.73 m2) requires estimation of kidney damage for at least three months as defined by structural or functional abnormalities of the kidney, manifested by either:Pathological abnormalities or Markers of kidney damage (including abnormalities in the composition of the blood or urine or abnormalities in imaging tests). Lab Interpretation Abnormal (test code = 86145-3) [facility] (ALB, T.PRO, BILI T, BU/BC, ALT, AST, ALK PHOS)2020-07-22 23:40:08 Test Item Value Reference Range Interpretation Comments TOTAL BILI (test code = 0137438928) 0.3 mg/dL 0.1-1.1 BILI UNCON (test code = 0776384696) 0.2 mg/dL 0.1-1.1 BILI CONJ (test code = 6802503614) 0.0 mg/dL 0.0-0.3 T PROTEIN (test code = 7423805447) 6.4 g/dL 6.3-8.2 ALBUMIN (test code = 2970741333) 3.9 g/dL 3.5-5.0 ALK PHOS (test code = 8695639011) 125 U/L 34-122 H ALTv (test code = 1742-6) 21 U/L 5-35 AST(SGOT) (test code = 8798113420) 19 U/L 13-40 Lab Interpretation (test code = Abnormal 62309-4) [facility] [id number] 23:40:08 Test Item Value Reference Range Interpretation Comments NT-proBNP (test code 73 pg/mL See_Comment [Autom ated = 0024605614) message] The system which generated this result transmitted reference range : <=125. The reference range was not used to interpret this result as normal/abnormal . FALLON (test code = FALLON) Biotin has been reported to cause a negative bias, interpret results relative to patient's use of biotin. Lab Interpretation Normal (test code = 20700-0) [facility] CenterTrop[facility] [id number] 23:40:08 Test Item Value Reference Range Interpretation Comments TROPONIN I (test 0.001 ng/mL See_Comment [Automated code = 4320643174) message] The system which generated this result transmitted reference range : <=0.034. The reference range was not used to interpret this result as normal/abnormal . FALLON (test code = Equal or Less than FALLON) 0.034 ng/ml---Normal ?Note: Cardiac troponin begins to rise 3-4 hours after the onset of ischemia. Repeat in 4-6 hours if the sample was drawn within 3-4 hours of the onset of the symptom and found normal. Between 0.035 and 0.120 ng/mL--- Borderline. Questionable myocardial injury or necrosis ? ?Note: Serial measurement may be necessary to confirm or exclude the diagnosis of myocardial injury or necrosis; Clinical correlation (symptoms, EKGs, imaging studies, and others) required; Repeat in 4-6 hours if clinically indicated. ? Equal or Higher than 0.121 ng/mL---Abnormal. Myocardial Injury or Necrosis Likely ? Biotin has been reported to cause a negative bias, interpret results relative to patient's use of biotin. ? Lab Interpretation Normal (test code = 34991-7) [facility] 23:22:59 Test Item Value Reference Range Interpretation Comments LIPASE (test code = 4029961691) 141 U/L 0-220 Lab Interpretation (test code = Normal 38963-6) [facility]inalysis2021-[facility] 23:20:48 Test Item Value Reference Range Interpretation Comments APPEARANCE (test code = Clear Clear 1646018784) COLOR (test code = Straw Yellow A 3264556324) PH (test code = 4.8-8.0 7933535258) SP GRAVITY (test code = 1.003-1.030 0318111562) GLU U QUAL (test code = 500 mg/dL Normal A 8745176125) BLOOD (test code = Negative Negative 1656591184) KETONES (test code = Negative Negative 1628024845) PROTEIN (test code = Negative Negative 2887-8) UROBILIN (test code = Normal Normal 8660918992) BILIRUBIN (test code = Negative Negative 4741531387) NITRITE (test code = Negative Negative 5483823947) LEUK PARTH (test code = Negative Negative 1974490477) RBC/HPF (test code = See_Comment [Autom ated message] 4476160875) The system obopay generated this result transmit jeny reference range : 0 - 3 HPF. The refe rence range was not u sed to interpret th is result as normal/abnormal . WBC/HPF (test code = See_Comment [Autom ated message] 3471798641) The system obopay generated this result transmit jeny reference range : 0 - 5 HPF. The refe rence range was not u sed to interpret th is result as normal/abnormal . BACTERIA (test code = Negative Negative 4433683592) SQ EPITH (test code = HPF 3462321612) Lab Interpretation (test Abnormal code = 75514-3) [facility] with [id number] 23:01:38 Test Item Value Reference Range Interpretation Comments WBC (test code = See_Comment [Automated 1100-2) message] The sy stem which generated this result transmitted reference range : 4.30 - 11.10 10*3/?L. The reference range was not used to interpret this result as normal/abnormal . RBC (test code = See_Comment [Automated 729-8) message] The sy stem which generated this result transmitted reference range : 3.93 - 5.25 10*6/?L. The reference range was not used to interpret this result as normal/abnormal . HGB (test code = 12.6 g/dL 11.6-15.0 718-7) HCT (test code = 39.1 % 35.7-45.2 4544-3) MCV (test code = 80.8 fL 80.6-95.5 787-2) MCH (test code = 26.0 pg 25.9-32.8 785-6) MCHC (test code = 32.2 g/dL 31.6-35.1 786-4) RDW-SD (test code = 37.3 fL 39.0-49.9 L 57610-8) RDW-CV (test code = 12.8 % 12.0-15.5 788-0) PLT (test code = See_Comment [Automated 777-3) message] The sy stem which generated this result transmitted reference range : 166 - 358 10*3/ ?L. The reference r farrah was not used to interpret this result as normal/abnormal . MPV (test code = 10.8 fL 9.5-12.9 83585-4) NRBC/100 WBC (test See_Comment [Automat ed code = 0076862919) message] The system which generated this result transmitted reference range : 0.0 - 10.0 /100 WBCs. The refer ence range was not u sed to interpret th is result as normal/abnormal . NRBC x10^3 (test code <0.01 See_Comment [Auto mated = 4431922377) message] The s ystem which generated this result transmitted reference range : 10*3/?L. The reference range was not used to interpret this result as normal/abnormal . GRAN MAT (NEUT) % 55.0 % (test code = 770-8) IMM GRAN % (test code 0.30 % = 5193244985) LYMPH % (test code = 35.6 % 736-9) MONO % (test code = 7.2 % 5905-5) EOS % (test code = 1.4 % 713-8) BASO % (test code = 0.5 % 706-2) GRAN MAT x10^3(ANC) 3.20 10*3/uL 1.88-7.09 (test code = 4148358733) IMM GRAN x10^3 (test <0.03 0.00-0.06 code = 4153949635) LYMPH x10^3 (test code 2.07 10*3/uL 1.32-3.29 = 731-0) MONO x10^3 (test code 0.42 10*3/uL 0.33-0.92 = 742-7) EOS x10^3 (test code = 0.08 10*3/uL 0.03-0.39 711-2) BASO x10^3 (test code 0.03 10*3/uL 0.01-0.07 = 704-7) Lab Interpretation Abnormal (test code = 60813-4) [facility]2020-07-22 22:21:14 Test Item Value Reference Range Interpretation Comments POCT GLU (test code = 4489358976) 428 mg/dL 70-110 H Lab Interpretation (test code = Abnormal 80010-4) [facility]. METABOLIC PANEL (51178)2020-05-19 22:32:00 Test Item Value Reference Range Interpretation Comments NA (test code = 137 mmol/L 135-145 1373677199) K (test code = 4.0 mmol/L 3.5-5 1241646741) CL (test code = 102 mmol/L 98-108 6299937246) CO2 TOTAL (test code = 25 mmol/L 23-31 0096504091) AGAP (test code = 2-16 3187378844) BUN (test code = 11 mg/dL 7-23 1443060449) GLUCOSE (test code = 270 mg/dL 70-110 H 5593698817) CREATININE (test code = 0.51 mg/dL 0.5-1.04 9631198281) TOTAL BILI (test code = 0.5 mg/dL 0.1-1.4 3113636873) CALCIUM (test code = 9.0 mg/dL 8.6-10.6 7321050432) T PROTEIN (test code = 7.4 g/dL 6.3-8.2 4355766668) ALBUMIN (test code = 4.4 g/dL 3.5-5 5700107507) ALK PHOS (test code = 96 U/L 34-122 7710543846) ALTv (test code = 18 U/L 5-35 1742-6) AST(SGOT) (test code = 21 U/L 13-40 8762494618) eGFR Calculation mL/min/1.73m2 (Non-) (test code = 4775180518) eGFR Calculation mL/min/1.73m2 () (test code = 3369733987) FALLON (test code = FALLON) Association of Glomerular Filtration Rate (GFR) and Staging of Kidney Disease* + --+ --+ ------+| GFR (mL/min/1.73 m2) ?| With Kidney Damage ?| ?Without Kidney Damage+ --------+ --------+ +| ?>90 ?| ?Stage one ?| ? Normal ?+ ---+ ---+ -------+| ?60-89 ?| ?Stage two ?| ? Decreased GFR ? + --+ --+ ------+| ?30-59 ?| ?Stage three ?| ? Stage three ? + --+ --+ ------+| ?15-29 ?| ?Stage four ? | ? Stage four ?+ ---+ ---+ -------+| ?<15 (or dialysis) ? ?| ?Stage five ? | ? Stage five ?+ ---+ ---+ -------+ *Each stage assumes the associated GFR level has been in effect for at least three months. ?Stages 1 to 5, with or without kidney disease, indicate chronic kidney disease. Notes: Determination of stages one and two (with eGFR >59mL/min/1.73 m2) requires estimation of kidney damage for at least three months as defined by structural or functional abnormalities of the kidney, manifested by either:Pathological abnormalities or Markers of kidney damage (including abnormalities in the composition of the blood or urine or abnormalities in imaging tests). Lab Interpretation Abnormal (test code = 47477-7) [facility] 22:32:00 Test Item Value Reference Range Interpretation Comments LIPASE (test code = 0490553723) 121 U/L 0-220 Lab Interpretation (test code = Normal 75383-6) [facility] 22:30:00 Test Item Value Reference Range Interpretation Comments APPEARANCE (test code = Hazy Clear A 9349939159) COLOR (test code = Yellow Yellow 1495259593) PH (test code = 4.8-8.0 8254353678) SP GRAVITY (test code = 1.003-1.030 7439325539) GLU U QUAL (test code = 500 mg/dL Normal A 3451014353) BLOOD (test code = 1+ Negative A 5593394055) KETONES (test code = Negative Negative 7924935117) PROTEIN (test code = 30 mg/dL Negative A 2887-8) UROBILIN (test code = Normal Normal 5052223654) BILIRUBIN (test code = Negative Negative 8494697038) NITRITE (test code = Negative Negative 3541930124) LEUK PARTH (test code = 75/uL Negative A 7090034406) RBC/HPF (test code = See_Comment H [Autom ated message] 3178426998) The system obopay generated this result transmit jeny reference range : 0 - 3 HPF. The refe rence range was not u sed to interpret th is result as normal/abnormal . WBC/HPF (test code = See_Comment H [Autom ated message] 1906445603) The system obopay generated this result transmit jeny reference range : 0 - 5 HPF. The refe rence range was not u sed to interpret th is result as normal/abnormal . BACTERIA (test code = Few Negative A 5366928364) MUCOUS (test code = Slight Negative LPF A 3413678543) SQ EPITH (test code = HPF 8155065038) Lab Interpretation (test Abnormal code = 85408-0) [facility] WITH [id number] 22:14:00 Test Item Value Reference Range Interpretation Comments WBC (test code = See_Comment [Automated 0390-2) message] The sy stem which generated this result transmitted reference range : 4.30 - 11.10 10*3/?L. The reference range was not used to interpret this result as normal/abnormal . RBC (test code = See_Comment [Automated 789-8) message] The sy stem which generated this result transmitted reference range : 3.93 - 5.25 10*6/?L. The reference range was not used to interpret this result as normal/abnormal . HGB (test code = 12.7 g/dL 11.6-15 718-7) HCT (test code = 39.5 % 35.7-45.2 4544-3) MCV (test code = 80.1 fL 80.6-95.5 L 787-2) MCH (test code = 25.8 pg 25.9-32.8 L 785-6) MCHC (test code = 32.2 g/dL 31.6-35.1 786-4) RDW-SD (test code = 37.7 fL 39-49.9 L 50655-6) RDW-CV (test code = 13.0 % 12-15.5 788-0) PLT (test code = See_Comment [Automated 777-3) message] The sy stem which generated this result transmitted reference range : 166 - 358 10*3/ ?L. The reference r farrah was not used to interpret this result as normal/abnormal . MPV (test code = 11.1 fL 9.5-12.9 38467-6) NRBC/100 WBC (test See_Comment [Automat ed code = 2469051728) message] The system which generated this result transmitted reference range : 0.0 - 10.0 /100 WBCs. The refer ence range was not u sed to interpret th is result as normal/abnormal . NRBC x10^3 (test code <0.01 See_Comment [Auto mated = 2350655840) message] The s ystem which generated this result transmitted reference range : 10*3/?L. The reference range was not used to interpret this result as normal/abnormal . GRAN MAT (NEUT) % 49.2 % (test code = 770-8) IMM GRAN % (test code 0.70 % = 4447930204) LYMPH % (test code = 41.0 % 736-9) MONO % (test code = 7.0 % 5905-5) EOS % (test code = 1.5 % 713-8) BASO % (test code = 0.6 % 706-2) GRAN MAT x10^3(ANC) 4.07 10*3/uL 1.88-7.09 (test code = 2585368868) IMM GRAN x10^3 (test 0.06 10*3/uL 0-0.06 code = 1226746667) LYMPH x10^3 (test code 3.39 10*3/uL 1.32-3.29 H = 731-0) MONO x10^3 (test code 0.58 10*3/uL 0.33-0.92 = 742-7) EOS x10^3 (test code = 0.12 10*3/uL 0.03-0.39 711-2) BASO x10^3 (test code 0.05 10*3/uL 0.01-0.07 = 704-7) Lab Interpretation Abnormal (test code = 87590-9) [facility] 07:08:00 Test Item Value Reference Range Interpretation Comments POCT GLU (test code = 9497188835) 290 mg/dL 70-110 H Lab Interpretation (test code = Abnormal 14431-9) [facility]COMP[facility]OLIC [facility]EL (69062)2019-08-22 05:49:00 Test Item Value Reference Range Interpretation Comments NA (test code = 139 mmol/L 135-145 5863005642) K (test code = 4.5 mmol/L 3.5-5 3725876748) CL (test code = 103 mmol/L 98-108 7874699895) CO2 TOTAL (test code = 25 mmol/L 23-31 1124049748) AGAP (test code = 2-16 7441437873) BUN (test code = 7 mg/dL 7-23 1208226179) GLUCOSE (test code = 312 mg/dL 70-110 H 9071881957) CREATININE (test code = 0.55 mg/dL 0.5-1.04 3611204923) TOTAL BILI (test code = 0.7 mg/dL 0.1-1.1 0819591942) CALCIUM (test code = 10.0 mg/dL 8.6-10.6 0923059499) T PROTEIN (test code = 8.4 g/dL 6.3-8.2 H 0882839914) ALBUMIN (test code = 4.7 g/dL 3.5-5 2160160752) ALK PHOS (test code = 82 U/L 34-122 2577661443) ALTv (test code = 18 U/L 5-35 1742-6) AST(SGOT) (test code = 34 U/L 13-40 5787659087) eGFR Calculation mL/min/1.73m2 (Non-) (test code = 5417525112) eGFR Calculation mL/min/1.73m2 () (test code = 5691211818) FALLON (test code = FALLON) Association of Glomerular Filtration Rate (GFR) and Staging of Kidney Disease* + --+ --+ ------+| GFR (mL/min/1.73 m2) ?| With Kidney Damage ?| ?Without Kidney Damage+ --------+ --------+ +| ?>90 ?| ?Stage one ?| ? Normal ?+ ---+ ---+ -------+| ?60-89 ?| ?Stage two ?| ? Decreased GFR ? + --+ --+ ------+| ?30-59 ?| ?Stage three ?| ? Stage three ? + --+ --+ ------+| ?15-29 ?| ?Stage four ? | ? Stage four ?+ ---+ ---+ -------+| ?<15 (or dialysis) ? ?| ?Stage five ? | ? Stage five ?+ ---+ ---+ -------+ *Each stage assumes the associated GFR level has been in effect for at least three months. ?Stages 1 to 5, with or without kidney disease, indicate chronic kidney disease. Notes: Determination of stages one and two (with eGFR >59mL/min/1.73 m2) requires estimation of kidney damage for at least three months as defined by structural or functional abnormalities of the kidney, manifested by either:Pathological abnormalities or Markers of kidney damage (including abnormalities in the composition of the blood or urine or abnormalities in imaging tests). Lab Interpretation Abnormal (test code = 80999-3) [facility] 05:49:00 Test Item Value Reference Range Interpretation Comments LIPASE (test code = 3728755569) 174 U/L 0-220 Lab Interpretation (test code = Normal 44986-1) [facility]CB WITH [id number] 05:35:00 Test Item Value Reference Range Interpretation Comments WBC (test code = See_Comment [Automated 1090-2) message] The sy stem which generated this result transmitted reference range : 4.30 - 11.10 10*3/?L. The reference range was not used to interpret this result as normal/abnormal . RBC (test code = See_Comment [Automated 619-8) message] The sy stem which generated this result transmitted reference range : 3.93 - 5.25 10*6/?L. The reference range was not used to interpret this result as normal/abnormal . HGB (test code = 13.6 g/dL 11.6-15 718-7) HCT (test code = 40.8 % 35.7-45.2 4544-3) MCV (test code = 78.9 fL 80.6-95.5 L 787-2) MCH (test code = 26.3 pg 25.9-32.8 785-6) MCHC (test code = 33.3 g/dL 31.6-35.1 786-4) RDW-SD (test code = 37.7 fL 39-49.9 L 09813-3) RDW-CV (test code = 13.3 % 12-15.5 788-0) PLT (test code = See_Comment [Automated 777-3) message] The sy stem which generated this result transmitted reference range : 166 - 358 10*3/ ?L. The reference r farrah was not used to interpret this result as normal/abnormal . MPV (test code = 11.2 fL 9.5-12.9 46330-3) NRBC/100 WBC (test See_Comment [Automat ed code = 0644539449) message] The system which generated this result transmitted reference range : 0.0 - 10.0 /100 WBCs. The refer ence range was not u sed to interpret th is result as normal/abnormal . NRBC x10^3 (test code <0.01 See_Comment [Auto mated = 0959064696) message] The s ystem which generated this result transmitted reference range : 10*3/?L. The reference range was not used to interpret this result as normal/abnormal . GRAN MAT (NEUT) % 57.4 % (test code = 770-8) IMM GRAN % (test code 0.50 % = 7922064937) LYMPH % (test code = 33.7 % 736-9) MONO % (test code = 6.6 % 5905-5) EOS % (test code = 1.3 % 713-8) BASO % (test code = 0.5 % 706-2) GRAN MAT x10^3(ANC) 6.27 10*3/uL 1.88-7.09 (test code = 5747430026) IMM GRAN x10^3 (test 0.05 10*3/uL 0-0.06 code = 1326352592) LYMPH x10^3 (test code 3.67 10*3/uL 1.32-3.29 H = 731-0) MONO x10^3 (test code 0.72 10*3/uL 0.33-0.92 = 742-7) EOS x10^3 (test code = 0.14 10*3/uL 0.03-0.39 711-2) BASO x10^3 (test code 0.05 10*3/uL 0.01-0.07 = 704-7) Lab Interpretation Abnormal (test code = 05324-3) [facility]ID [facility]2019-08-22 05:28:00 Test Item Value Reference Range Interpretation Comments SARS-CoV-2 Rapid ID NOW Not Detected Not Detected (test code = 11446-6) FALLON (test code = FALLON) ID NOW COVID-19 Assay is an isothermal nucleic acid amplification test intended for the qualitative detection of nucleic acid from SARS-CoV-2 viral RNA in nasopharyngeal (EDGE BONDER) specimens. It is used under Emergency Use Authorization (EUA) by FDA. The limit of detection (LOD) of the assay is 125 Genome Equivalents/mL. A positive result is indicative of the presence of SARS-CoV-2 RNA. ?Clinical correlation with patient history and other diagnostic [...] for repeat patient testing if clinically indicated. Lab Interpretation Normal (test code = 19244-7) [facility]2020-[facility] 05:20:00 Test Item Value Reference Range Interpretation Comments APPEARANCE (test code = Clear Clear 3304767157) COLOR (test code = Straw Yellow A 6915613286) PH (test code = 4.8-8.0 6043610530) SP GRAVITY (test code = 1.003-1.030 4162199683) GLU U QUAL (test code = 500 mg/dL Normal A 8937787796) BLOOD (test code = Negative Negative INTERFERE NCE FROM 8818974322) ASCORBIC ACID M AY CAUSE FALSE NEG ATIVE RESULT KETONES (test code = Negative Negative 2805088744) PROTEIN (test code = Negative Negative 2887-8) UROBILIN (test code = Normal Normal 8096224838) BILIRUBIN (test code = Negative Negative 3106464001) NITRITE (test code = Negative Negative 7443712600) LEUK PARTH (test code = Negative Negative 8865527975) RBC/HPF (test code = <1 See_Comment [Autom ated message] 8559090103) The system obopay generated this result transmitted ref erence range: 0 - 3 HP F. The reference range was not used to int erpret this result as normal/abnormal . WBC/HPF (test code = See_Comment [Autom ated message] 1850596037) The system obopay generated this result transmitted ref erence range: 0 - 5 HP F. The reference range was not used to int erpret this result as normal/abnormal . BACTERIA (test code = Few Negative A 7352921527) MUCOUS (test code = Slight Negative LPF A 0857861483) SQ EPITH (test code = HPF 7144840028) Lab Interpretation Abnormal (test code = 94130-9) [facility] [id number] 17:07:00 Test Item Value Reference Range Interpretation Comments POC-GLUCOSE METER 298 mg/dL 70-110 H TESTED AT [place] [address] ([facility]) (test code = ELIZABETH Flynn [place] [address]) [address] POCT-GLUCOSE [id number] 12:11:00 Test Item Value Reference Range Interpretation Comments POC-GLUCOSE METER 331 mg/dL 70-110 H Notified R Devante SOUZA/TESTED ([facility]) (test code = AT [facility] [address] [facility] [address] POCT-GLUCOSE [id number] 10:55:00 Test Item Value Reference Range Interpretation Comments POC-GLUCOSE METER 365 mg/dL 70-110 H TESTED AT [place] [address] ([facility]) (test code = ELIZABETH Flynn [facility] 1538) [id number] POCT-GLUCOSE [id number] 08:44:00 Test Item Value Reference Range Interpretation Comments POC-GLUCOSE METER 291 mg/dL 70-110 H TESTED AT [place] [address] ([facility]) (test code = ELIZABETH Flynn [facility] 1538) [address] LIPID [id number] 05:56:00 Test Item Value Reference Range Interpretation Comments TRIGLYCERIDES ([facility]) (test code = 279 mg/dL 540) CHOLESTEROL ([facility]) (test code = 119 mg/dL 631) HDL CHOLESTEROL ([facility]) (test code 22 mg/dL = 976) LDL CHOLESTEROL CALCULATED ([facility]) 41 mg/dL (test code = 633) Triglyceride Reference Range: Low Risk <150 Borderline 150-199 High Risk 200-499 Very High Risk >=500Cholesterol Reference Range: Low Risk <200 Borderline 200-239 High Risk >240HDL Cholesterol Reference Range: Low Risk >=60 High Risk <40LDL Cholesterol Reference Range: Optimal <100 Near Optimal 100-129 Borderline 130-159 High 160-189 Very High >=190POCT-GLUCOSE [id number] 21:50:00 Test Item Value Reference Range Interpretation Comments POC-GLUCOSE METER 318 mg/dL 70-110 H TESTED AT [place] [address] ([facility]) (test code = ELIZABETH Flynn [facility] 1538) [address] POCT-GLUCOSE [id number] 18:04:00 Test Item Value Reference Range Interpretation Comments POC-GLUCOSE METER 238 mg/dL 70-110 H TESTED AT [place] [address] ([facility]) (test code = ELIZABETH Flynn [facility] 1538) [address] POCT-GLUCOSE [id number] 12:22:00 Test Item Value Reference Range Interpretation Comments POC-GLUCOSE METER 290 mg/dL 70-110 H TESTED AT [place] [address] ([facility]) (test code = ELIZABETH Flynn [facility] 1538) [id number] POCT-GLUCOSE [id number] 09:20:00 Test Item Value Reference Range Interpretation Comments POC-GLUCOSE METER 293 mg/dL 70-110 H TESTED AT [place] [address] ([facility]) (test code = ELIZABETH Flynn [facility] 1538) [address] POCT-GLUCOSE [id number] 21:00:00 Test Item Value Reference Range Interpretation Comments POC-GLUCOSE METER 225 mg/dL 70-110 H TESTED AT [place] [address] CRISTIANE) (test code = ELIZABETH PALACIOS [place] 1537) [address] CT, CAROTID, [id number] 18:01:00FINAL REPORT CT angiogram of the upper [...] Verified Date/Time: 08/30/2017 18:01:31 Reading Location: [address] Neuro Reading Room , CTANGIO [id number] 18:01:00FINAL REPORT CT angiogram of the upper [...] Hall Verified Date/Time: 08/30/2017 18:01:31 Reading Location: [facility] C0[facility] Neuro Reading Room -GLUCOSE [id number] 17:21:00 Test Item Value Reference Range Interpretation Comments POC-GLUCOSE METER 256 mg/dL 70-110 H TESTED AT [place] [address] ([facility] (test code = [facility] 1538) [address] POCT-GLUCOSE [id number] 12:00:00 Test Item Value Reference Range Interpretation Comments POC-GLUCOSE METER 289 mg/dL 70-110 H TESTED AT [place] [address] [facility] (test code = [facility] 1538) [address] BASIC METABOLIC [id number] 10:12:00 Test Item Value Reference Range Interpretation [...] NOT APPLICABLE FOR DIALYSIS PATIEN TS. POCT-GLUCOSE [id number] 08:42:00 Test Item Value Reference Range Interpretation Comments POC-GLUCOSE METER 259 mg/dL 70-110 H TESTED AT [facility] 6720 ([facility]) (test code = ELIZABETH PALACIOS [place] 1538) [address] TROPONIN [id number] 06:14:00 Test Item Value Reference Range Interpretation Comments TROPONIN I (AKER) (test code = 397) < ng/mL 0.00-0.03 [...] = 2801) RAD, CHEST, 1 VIEW, NON [id number] 04:23:00Reason for exam:->chest painShould this be performed at the bedside?->YesFINAL REPORT Comparison examination: None No pneumothorax, focal pulmonary co nsolidation, or significant pleural effusion. Normal cardiomediastinal contours. Normal skeleton and soft tissues. Impression: No acute abnormality. Signed: Ervin Jenkins Verified Date/Time: 08/30/2017 04:23:04 Reading Location: [address] Reading Room POCT-GLUCOSE [id number] 21:18:00 Test Item Value Reference Range Interpretation Comments POC-GLUCOSE METER 151 mg/dL 70-110 H TESTED AT [facility] 6720 (BEAKER) (test code = ELIZABETH Flynn [facility] 1538) [address] POCT-GLUCOSE [id number] 17:59:00 Test Item Value Reference Range Interpretation Comments POC-GLUCOSE METER 146 mg/dL 70-110 H TESTED AT [facility] 6720 ([facility]) (test code = ELIZABETH Flynn [facility] 1538) [address] HEMOGLOBIN [id number] 15:56:00 Test Item Value Reference Range Interpretation Comments HEMOGLOBIN A1C ([facility]) (test code = 13.7 % 4.3-6.1 H 368) CT, BRAIN, WITHOUT [id number] 14:52:00FINAL REPORT CT head without contrast. Comparisons: [...] Hall Verified Date/Time: 08/29/2017 14:52:09 Reading Location: [address] Neuro Reading Room POCT-GLUCOSE [id number] 14:17:00 Test Item Value Reference Range Interpretation Comments POC-GLUCOSE METER 423 mg/dL 70-110 HH Notified Rina Low MD/TESTED (JESSICA) (test code = AT [facility] [address] [place] [address] 1538) [facility] 7703 0 VITAMIN [id number] 06:48:00 Test Item Value Reference Range Interpretation Comments VITAMIN B12 ([facility]) (test code = 300 pg/mL 213-826 040) TSH/FREE T4 IF [id number] 06:48:00 Test Item Value Reference Range Interpretation Comments THYROID STIMULATING HORMONE 1.55 uIU/mL 0.35-4.94 (BEAKER) (test code = 772) CBC W/PLT COUNT & AUTO [id number] 05:10:00 Test Item Value Reference Range Interpretation [...] (BEAKER) (test code = 2801) URINALYSIS W/ [id number] 23:32:00 Test Item Value Reference Range Interpretation [...] = 1585) Occasional SOURCE(BEAKER) (test code = 0071) TROPONIN [id number] 23:12:00 Test Item Value Reference Range Interpretation [...] acute neurological disease, and persistent tachyarrhythmia.BASIC METABOLIC [id number] 23:05:00 Test Item Value Reference Range Interpretation [...] NOT APPLICABLE FOR DIALYSIS PATIEN TS. POCT-GLUCOSE [id number] 20:49:00 Test Item Value Reference Range Interpretation Comments POC-GLUCOSE METER 376 mg/dL 70-110 H Notified R Devante SOUZA/TESTED (BEAKER) (test code = AT [facility] [address] [address]) [facility] 7703 0"
[2021-02-23 18:52] LABS: Basophils % 0.5 % (0-1.3); Hematocrit 38.9 % (36.0-45.0); Lymphocytes % 34.2 % (15.3-44.8); MPV 8.3 fL (7.6-11.3); RBC Red Blood Cell Count 4.86 M/uL (3.86-4.86)
[2021-02-23] MEDS ORDERED: METOCLOPRAMIDE 10 MG/2mL INJ ONE (18:54)
[2021-02-23] MEDS ORDERED: FENTANYL CITR 100 MCG/2 ML ONE (18:54)
[2021-02-23] MEDS ORDERED: NA CHLORIDE 0.9% 1,000 ML ONE (18:55)
[2021-02-23 19:06] LABS: Protime INR 1.03
[2021-02-23 19:09] LABS: ALT/SGPT 25 U/L (12-78); AST/SGOT 11 U/L (15-37); Albumin 3.7 g/dL (3.4-5.0); Alkaline Phosphatase 93 U/L (45-117); BUN Blood Urea Nitrogen 16 mg/dL (7-18); Bicarbonate 28 mmol/L (21-32); Bilirubin Direct < 0.1 mg/dL (0-0.2); Bilirubin Total 0.2 mg/dL (0.2-1.0); Glucose Level 185 mg/dL (74-106); Lipase 233 U/L (73-393); Potassium 3.8 mmol/L (3.5-5.1); Protein, Total 8.1 g/dL (6.4-8.2); Sodium Level 143 mmol/L (136-145)
--- NOTE | 2021-02-23 20:28 | RAD REPORT ---
EXAM DESCRIPTION: CTAbdomen Pelvis Wo Contrast - 02/23/2021 8:20 pm CLINICAL HISTORY: ABD PAIN COMPARISON: Abdomen Pelvis W Contrast dated 01/08/2021; Abdomen Pelvis W Contrast dated ; Abdomen Pelvis W Contrast dated 10/09/2020; Abdomen Pelvis W Contrast dated 05/12/2020 TECHNIQUE: CT of the abdomen and pelvis was performed. All CT scans are performed using dose optimization technique as appropriate and may include automated exposure control or mA/KV adjustment according to patient size. FINDINGS: Lower chest: No acute abnormality. Liver: No acute abnormality or suspicious lesions. Biliary: Cholecystectomy. Stomach: No significant focal abnormality. Duodenum: No significant focal abnormality. Pancreas: No significant abnormality. Spleen: No significant abnormality. Adrenal: No suspicious lesions. Kidney/ureter: No hydronephrosis. No renal calculi. Retroperitoneum: No retroperitoneal adenopathy. Vascular: No aneurysm. Bowel: No significant focal abnormality. Diverticulosis. Peritoneum: No ascites or free air. Small fat containing ventral hernia. Bladder: Grossly unremarkable. Reproductive: No adnexal masses. Bones: No acute fracture. Shrapnel in the right hemipelvis. Other: n/a IMPRESSION: No acute intra-abdominal or pelvic finding.
--- NOTE | 2021-02-23 21:01 | EDPHYS ---
Physician Documentation [facility] Name: Elly Clarke Age: 51 yrs Sex: Female : 1970 Arrival Date: 02/23/2021 Time: 15:01 Bed 11 Private MD: BARRERA Physician Justin Oshea HPI: 02/23 18:40 This 51 yrs old Female presents to ER via Ambulatory with complaints of crohns flare, cp Pain All Over, Nausea. 18:40 The patient presents with abdominal pain in the periumbilical area. cp 18:40 Onset: The symptoms/episode began/occurred today. The symptoms do not radiate. cp Associated signs and symptoms: Pertinent positives: nausea, Pertinent negatives: diarrhea, fever, active vomiting. The symptoms are described as constant. The patient has experienced similar episodes in the past, chronically, Patient with history of Crohn's and gastroparesis. [employer]: 16:00 LMP N/A - iw Historical: - Allergies: 15:43 Claritin (insomnia); iw 15:43 Compazine (Seizures); iw 15:43 Demerol (HEART RACING); iw 15:43 (Hives); iw 15:43 Morphine (RACING HEART); iw - PMHx: 15:43 Anxiety; Arthritis; Chrohns; Chronic pain; Hypertension; Diabetes - NIDDM; Dramatic iw migraine events; Gastroparesis; High Cholesterol; insomnia; Migraines; Pancreatitis; spinal stenosis; - PSHx: 15:43 Cholecystectomy; Knee sx x 2; Tonsillectomy; Total abdominal hysterectomy; tumor iw removed from septum; - Immunization history:: Adult Immunizations unknown. - Social history:: Smoking status: unknown. ROS: 18:45 Constitutional: Negative for body aches, chills, fever, poor PO intake. cp 18:45 Eyes: Negative for injury, pain, redness, and discharge. cp 18:45 ENT: Negative for ear pain, sore throat, difficulty swallowing, difficulty handling secretions. 18:45 Cardiovascular: Negative for chest pain, palpitations. 18:45 Respiratory: Negative for cough, shortness of breath, wheezing. 18:45 Abdomen/GI: Positive for abdominal pain, nausea, Negative for vomiting, diarrhea, constipation. 18:45 : Negative for urinary symptoms. 18:45 Neuro: Negative for altered mental status, headache, weakness. 18:45 All other systems are negative. Exam: 18:50 Constitutional: The patient appears in no acute distress, alert, awake, non-toxic, well cp developed, well nourished. 18:50 Head/Face: Normocephalic, atraumatic. cp 18:50 Eyes: Periorbital structures: appear normal, Conjunctiva: normal, no exudate, Sclera: no appreciated abnormality, Lids and lashes: appear normal, bilaterally. 18:50 ENT: External ear(s): are unremarkable, Nose: is normal, Mouth: Lips: moist, Oral mucosa: moist, Posterior pharynx: Airway: no evidence of obstruction, patent. 18:50 Chest/axilla: Inspection: normal, Palpation: is normal, no crepitus, no tenderness. 18:50 Cardiovascular: Rate: tachycardic, Rhythm: regular. 18:50 Respiratory: the patient does not display signs of respiratory distress, Respirations: normal, no use of accessory muscles, no retractions, labored breathing, is not present, Breath sounds: are clear throughout, no decreased breath sounds, no stridor, no wheezing. 18:50 Abdomen/GI: Inspection: obese Bowel sounds: active, all quadrants, Palpation: soft, in all quadrants, severe abdominal tenderness, in the umbilical area, rebound tenderness, is not appreciated, voluntary guarding, is elicited in the umbilical area. 18:50 Back: CVA tenderness, is absent. Vital Signs: 15:41 BP 165 / 120; Pulse 114; Resp 19; Temp 97.9; Pulse Ox 98% on R/A; Weight 94.35 kg; iw Height 5 ft. 7 in. (170.18 cm); Pain 10/10; 18:59 BP 155 / 95; Pulse 95; Resp 18; Pulse Ox 99% on R/A; mh5 19:49 BP 140 / 71; Pulse 86; Resp 16; Pulse Ox 96% on R/A; iw 21:16 BP 149 / 95; Pulse 84; Resp 16 S; Pulse Ox 100% on R/A; Pain 4/10; bb 15:41 Body Mass Index 32.58 (94.35 kg, 170.18 cm) iw MDM: 18:25 Patient medically screened. zoe 19:00 Differential diagnosis: bowel obstruction, diverticulitis, gastritis, non-specific abd cp pain, pancreatitis, Perf. Duodenal Ulcer, Perf. Gastric Ulcer, Peritonitis, Ureterolithiasis, urinary tract infection. 21:00 Data reviewed: vital signs, nurses notes, lab test result(s), radiologic studies, CT cp scan. 21:00 Counseling: I had a detailed discussion with the patient and/or guardian regarding: the cp historical points, exam findings, and any diagnostic results supporting the discharge/admit diagnosis, lab results, radiology results, the need for outpatient follow up, a collection officer, to return to the emergency department if symptoms worsen or persist or if there are any questions or concerns that arise at home. Response to treatment: the patient's symptoms have markedly improved after treatment, VSS. Pain and nausea markedly improved. Will discharge to home for continued monitoring. 02/23 18:33 Order name: Basic Metabolic Panel; Complete Time: 19:39 cp 02/23 19:39 Interpretation: Normal except: GLUC 185; GFR 63. 02/23 18:33 Order name: CBC with Diff; Complete Time: 19:39 cp 02/23 19:39 Interpretation: Normal except: MCV 79.9; MCH 26.4. 02/23 18:33 Order name: Hepatic Function; Complete Time: 19:39 cp 02/23 18:33 Order name: Lipase; Complete Time: 19:39 cp 02/23 18:36 Order name: Magnesium; Complete Time: 19:39 cp 02/23 18:36 Order name: PT-INR; Complete Time: 19:39 cp 02/23 18:33 Order name: IV Saline Lock; Complete Time: 18:47 cp 02/23 18:33 Order name: Labs collected and sent; Complete Time: 18:47 cp 02/23 20:17 Order name: Abdomen ; Complete Time: 20:32 EDMS 02/23 20:32 Interpretation: Report reviewed. 02/23 20:33 Order name: PO challenge; Complete Time: 20:49 cp Administered Medications: 19:45 Drug: NS 0.9% 1000 ml Route: IV; Rate: 1 bolus; Site: right antecubital; iw 21:17 Follow up: IV Status: Order to discontinue infusion; IV Intake: 300ml bb 19:45 Drug: fentaNYL (PF) 50 mcg Route: IVP; Site: right antecubital; iw 20:49 Follow up: Response: No adverse reaction; Marked relief of symptoms; Pain is decreased ss 19:45 Drug: Pepcid (famotidine) 20 mg Route: IVP; Site: right antecubital; iw 20:50 Follow up: Response: No adverse reaction ss 19:45 Drug: Reglan (metoCLOPramide) 10 mg Route: IVP; Site: right antecubital; iw 20:49 Follow up: Response: No adverse reaction; Marked relief of symptoms ss Disposition Summary: 02/23/21 21:00 Discharge Ordered Location: Home cp Problem: an ongoing problem cp Symptoms: have improved cp Condition: Stable cp Diagnosis - Abdominal pain, unspecified cp - Gastroparesis cp Followup: cp - With: Gregorio Minaya MD - When: 2 - 3 days - Reason: Recheck today's complaints Discharge Instructions: - Discharge Summary Sheet cp - Abdominal Pain, Adult cp - Gastroparesis cp Forms: - Medication Reconciliation Form cp - Thank You Letter cp - Antibiotic Education cp - Prescription Opioid Use cp Prescriptions: - Protonix 40 mg Oral Tablet - take 1 tablet by ORAL route once daily; 30 tablet; Refills: 0, Product cp Selection Permitted - Reglan 10 mg Oral Tablet - take 1 tablet by ORAL route every 6 hours take 30 minutes before meals and at cp bedtime; 30 tablet; Refills: 0, Product Selection Permitted Addendum: 02/24/2021 23:21 Co-signature as Attending Physician, Justin Oshea MD. [facility] Signatures: Dispatcher [employer] Kam Corrales MD MD cha Williams, Irene, RN RN Kam Charles PA PA Justin Oshea MD MD [facility] Bianka Lema RN Akiko Meyers RN ss Corrections: (The following items were deleted from the chart) 02/23 20:17 19:41 Abdomen Pelvis W Con+CT.RAD.BRZ ordered. NARESH INFANTE
--- NOTE | 2021-02-23 21:01 | ER ---
[facility] Name: Elly Clarke Age: 51 yrs Sex: Female : 1970 Arrival Date: 02/23/2021 Time: 15:01 Bed 11 Private MD: Diagnosis: Abdominal pain, unspecified;Gastroparesis Presentation: 02/23 15:41 Chief complaint: Patient states: upper abd pain radiating out, started Thursday after a iw bowel prep, hx of Crohns and gastroparesis, had endoscopy on Thursday and was told she wasn't digesting her food properly , was told to talk to her pain mgmt doctor for pain medicine. Coronavirus screen: At this time, the client does not indicate any symptoms associated with coronavirus-19. Ebola Screen: Patient negative for fever greater than or equal to 101.5 degrees Fahrenheit, and additional compatible Ebola Virus Disease symptoms Patient denies exposure to infectious person. Patient denies travel to an Ebola-affected area in the 21 days before illness onset. No symptoms or risks identified at this time. Initial Sepsis Screen: Does the patient meet any 2 criteria? No. Patient's initial sepsis screen is negative. Does the patient have a suspected source of infection? No. Patient's initial sepsis screen is negative. Risk Assessment: Do you want to hurt yourself or someone else? Patient reports no desire to harm self or others. Onset of symptoms was February 18, 2021. 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 - Social history:: Smoking status: unknown. Screenin:47 Abuse screen: Denies threats or abuse. Denies injuries from another. Nutritional iw screening: No deficits noted. Tuberculosis screening: No symptoms or risk factors identified. Fall Risk IV access (20 points). Assessment: 18:45 General: Appears uncomfortable, Behavior is cooperative, anxious, crying. Pain: iw Complains of pain in abdomen. Neuro: Level of Consciousness is awake, alert, obeys commands, Oriented to person, place, time, situation, Moves all extremities. Full function. GI: Abdomen is non-distended, obese, Reports upper abdominal pain, nausea. Derm: Skin is intact, is healthy with good turgor. Musculoskeletal: Range of motion: intact in all extremities. 19:47 Reassessment: Patient appears in no apparent distress at this time. Patient and/or iw family updated on plan of care and expected duration. Pain level reassessed. Patient is alert, oriented x 3, equal unlabored respirations, skin warm/dry/pink. 21:16 Reassessment: Patient is alert, oriented x 3, equal unlabored respirations, skin bb warm/dry/pink. pt verbalized understanding of and agrees to plan of care discharge instructions given pt ambulated with steady gait to exit Patient states feeling better. Patient states symptoms have improved. Vital Signs: 15:41 BP 165 / 120; Pulse 114; Resp 19; Temp 97.9; Pulse Ox 98% on R/A; Weight 94.35 kg; iw Height 5 ft. 7 in. (170.18 cm); Pain 10/10; 18:59 BP 155 / 95; Pulse 95; Resp 18; Pulse Ox 99% on R/A; mh5 19:49 BP 140 / 71; Pulse 86; Resp 16; Pulse Ox 96% on R/A; iw 21:16 BP 149 / 95; Pulse 84; Resp 16 S; Pulse Ox 100% on R/A; Pain 4/10; bb 15:41 Body Mass Index 32.58 (94.35 kg, 170.18 cm) iw ED Course: 15:01 Patient arrived in ED. as 15:43 Triage completed. iw 15:45 Arm band placed on. iw 18:23 Kam Charles PA is PHCP. cp 18:23 Kam Parker MD is Attending Physician. cp 18:47 PT-INR Sent. mh5 18:47 Basic Metabolic Panel Sent. 5 18:47 CBC with Diff Sent. 5 18:47 Hepatic Function Sent. [facility] 18:48 Lipase Sent. [facility] 18:48 Initial lab(s) drawn, by me, sent to lab. Inserted saline lock: 22 gauge in left [facility] antecubital area, using aseptic technique. Blood collected. 18:49 Patient has correct armband on for positive identification. Bed in low position. Call [facility] light in reach. Side rails up X2. Pulse ox on. NIBP on. 18:52 Kenisha Prince, RN is Primary Nurse. iw 19:11 Justin Oshea MD is Attending Physician. cp 19:36 Inserted saline lock: 24 gauge in right antecubital area, using aseptic technique. ds4 20:20 Abdomen In Process Unspecified. EDMS 20:58 Gregorio Minaya MD is Referral Physician. cp 21:16 No provider procedures requiring assistance completed. IV discontinued, intact, bb bleeding controlled, No redness/swelling at site. Pressure dressing applied. Administered Medications: 19:45 Drug: NS 0.9% 1000 ml Route: IV; Rate: 1 bolus; Site: right antecubital; iw 21:17 Follow up: IV Status: Order to discontinue infusion; IV Intake: 300ml bb 19:45 Drug: fentaNYL (PF) 50 mcg Route: IVP; Site: right antecubital; iw 20:49 Follow up: Response: No adverse reaction; Marked relief of symptoms; Pain is decreased ss 19:45 Drug: Pepcid (famotidine) 20 mg Route: IVP; Site: right antecubital; iw 20:50 Follow up: Response: No adverse reaction ss 19:45 Drug: Reglan (metoCLOPramide) 10 mg Route: IVP; Site: right antecubital; iw 20:49 Follow up: Response: No adverse reaction; Marked relief of symptoms ss Intake: 21:17 IV: 300ml; Total: 300ml. bb Outcome: 21:00 Discharge ordered by . cp 21:18 Discharged to home ambulatory. bb 21:18 Condition: stable 21:18 Discharge instructions given to patient, Instructed on discharge instructions, follow up and referral plans. medication usage, Demonstrated understanding of instructions, follow-up care, medications, Prescriptions given X 2. 21:18 Patient left the ED. bb Signatures: Dispatcher [employer] Lashell Preez Brenda, RN RN bb Kenisha Prince RN RN iw Smirch, Shelby, RN RN ss Mario Leggett 4 Kam Charles PA PA cp Martinez, Maria [facility]
[2021-02-23 21:23] VITALS: TEMP 97.9
[2021-02-23 21:28] VITALS: BP 149/95; O2SAT 100
== END 2021-02-23 21:18 | disposition home or self-care (01) ==
LOC: ER 14:59
DX: E11.43 Type 2 diabetes mellitus with diabetic autonomic (poly)neuropathy (principal); K31.84 Gastroparesis; I10 Essential (primary) hypertension; Z88.5 Allergy status to narcotic agent; Z88.8 Allergy status to other drugs, medicaments and biological substances
CPT/HCPCS: 96361; 85025; 80048; 36415; 83735; 85610; 80076; 83690; 74176; 96375; 96374; 99284; J2765; J3010; J7030

== ENCOUNTER 2021-03-31 14:39 | Emergency (ER) | payer OTHER ==
--- OUTSIDE RECORDS SUMMARY | 2021-03-31 14:46 | XMS REPORT | Continuity of Care Document ---
:1970 Author Organization [facility] t Address [address] [place] [address] Care Team Providers Name Role Phone Fahad Curran MD Primary Care Physician BEST Attending Clinician Unavailable Best YEP Attending Clinician Cristina Burns Attending Clinician DEBORAH Attending Clinician Unavailable Eugenia YEP, F Attending Clinician Doctor Unassigned, Name Attending Clinician Unavailable Isaias DEGROOT, S Attending Clinician Olinda SOUZA S Attending Clinician Laurel JOHNS Attending Clinician Unavailable Isauro JOHNS Attending Clinician Unavailable Shankar SOUZA Attending Clinician [facility] Attending Clinician Unavailable BRENNEN Attending Clinician Unavailable DEBORAH Admitting Clinician Unavailable BRENNEN Admitting Clinician Unavailable Payers Payer Name Policy Type Policy Number Effective Date Expiration Date [facility] [id number] 2020 00:00:00 GROUP AND PENSION [id number] 1989 ADMINISTRATORS 00:00:00 MEDICAID SSI PENDING PENDING 2020 00:00:00 Problems Condition Condition Condition Status Onset Resolution Last Treating Co mments Source Name Details Category Date Date Treatment Clinician Date Migraine Migraine Disease Active Unive rs equivalent equivalent 5-07 it y of 00:00: [place] [facility] Loss of Loss of Disease Active Univers taste taste 5-07 ity of 00:00: [place] [facility] Nausea Nausea Disease Active Univers 5-07 ity of 00:00: [place] [facility] Cough Cough Disease Active Univers 5-07 ity of 00:00: [place] [facility] Dehydratio Dehydratio Disease Active U nivers n n 5-07 ity of 00:00: [place] [facility] Loose Loose Disease Active Univers stools stools 5-07 ity of 00:00: [place] [facility] Left sided Left sided Disease Active [facility] numbness numbness 6-02 [facility] - [facility]: Medical [address] [place] [address] Neurologic Neurologic Disease Active [facility] al al 6-01 [facility] - symptoms symptoms 00:00: Medica l 00 [place] Abdominal Abdominal Disease Active Uni vers pain pain 3-03 ity of 00:00: [place] [facility] Obesity Obesity Disease Active 2015-03 Univers (BMI (BMI 2-29 ity of 30-39.9) 30-39.9) 00:00: [place] [facility] Gastropare Gastropare Disease Active 2015-03 U nivers sis sis 2-29 ity of 00:00: [place] [facility] H/O: H/O: Disease Active Univers hysterecto hysterecto 9-09 it y of my my 00:00: [place] [facility] Morbid Morbid Disease Active Univers obesity obesity 8-30 ity of 00:00: [place] [facility] Chronic Chronic Disease Active Univers abdominal abdominal 1-27 ity of pain pain 00:00: [place] [facility] HTN HTN Disease Active Univers (hypertens (hypertens 1-25 it y of ion), ion), 00:00: [place] benign benign [address] 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 00 Medical Branch Allergies, Adverse Reactions, Alerts Allergy Allergy Status [...] 08-28 [facility] - -Atropin 00:00: Medical e-Scop [place] Morphine Propensi Active Rash [facility] ty to 08-28 [facility] - adverse 00:00: Medical reaction 00 [place] MUSHROOM DRUG Active Hives 2015-03 Univers INGREDI 2-30 ity of 00:00: [place] 00 Medical Branch Mushroom Propensi Active Hives 2015-03 Univer s ty to 2-30 ity of adverse 00:00: [place] reaction 00 Medical s Branch LORATADI DRUG Active Palpitations Un [place] NE INGREDI 1-24 ity of 00:00: [place] 00 Medical Branch PROCHLOR DRUG Active Other-Cmnt Univ ers PERAZINE INGREDI 1-24 ity of EDISYLAT 00:00: [place] E 00 Medical Branch MEPERIDI DRUG Active Rash Univers NE HCL INGREDI 1-24 ity of 00:00: [place] 00 Medical Branch PHENOBAR DRUG Active Anaphylaxis Uni vers B-HYOSCY 1-24 ity of -ATROPIN 00:00: [place] E-SCOP 00 Medical Branch MORPHINE DRUG Active Rash Univers INGREDI 1-24 ity of 00:00: [place] 00 Medical Branch Loratadi Propensi Active Palpitations Univers ne ty to 1-24 ity of adverse 00:00: [place] reaction 00 Medical s Branch Prochlor Propensi Active Other - See seizures Univers perazine ty to comments 1-24 ity of Edisylat adverse 00:00: [place] e reaction 00 Medical s [place] Meperidi Propensi Active Rash Univer s ne Hcl ty to 1-24 ity of adverse 00:00: [place] reaction 00 [facility] s [place] Phenobar Propensi Active Anaphylaxis U nivers b-Hyoscy ty to 1-24 ity of -Atropin adverse 00:00: [place] e-Scop reaction Medical s [place] Morphine Propensi Active Rash Univer s ty to 1-24 ity of adverse 00:00: [place] reaction 00 Medical s [place] Social History Social Habit Start Date Stop Date Quantity Comments Source Exposure to Not sure [facility] SARS-CoV-2 (event) [facility] l [place] Tobacco use and 2015-11-25 2015-11-25 Never used [facility] exposure 00:00:00 00:00:[address] [facility] Sex [birth year] [facility] 00:00:00 00:00:[address] [facility] Smoking Status Start Date Stop Date Source Never smoker [facility] Medications Ordered Filled Start Stop Current Ordering Indication Dosage Frequency Signature Comments Components Source Medication Medication Date Date Medication? Clinician (SIG) Name Name HYDROcodone 2021- No 1{tbl} 1 tablet, Univers acetaminop 03-30 Oral, ONCE i ty of hen (NORCO) 01:15: 00:19 NOW, 1 [place] as 10-325 mg 00 :00 dose, On Medica l tablet 1 Thu [place] tablet 03/29/21 at 1915, Routine clonazePAM Yes .5mg 0.5 mg, Univ ers (KLONOPIN) 11-03 Oral, TID, ity of tablet 0.5 01:00: First dose [place] mg 00 on [facility] Medical 11/02/20 at Branch 1999, Until Discontinu ed, Routine pantoprazol 2020- No 40mg 40 mg, Uni vers e 11-03 Slow IV ity of (PROTONIX) 01:00: 00:10 Push, [place] injection 00 :00 ONCE, 1 Medical 40 mg dose, [facility] 11/02/20 at 1999 NaCl 0.9% 2020- No 1000mL at 999 Uni vers (NS) bolus 11-03 mL/hr, ity of infusion 00:45: 01:05 1,000 mL, [place] as 1,000 mL 00 :00 IV Medical Infusion, [place] ONCE, 1 dose, 11/02/20 at 1945, STAT magnesium 2020- No 2g 2 g, IV Univ ers sulfate in 11-02 Piggyback, it y of water 2 23:45: 00:06 ONCE, 1 [place] gram/50 mL 00 :00 dose, Fri Medi nicole (4 %) 11/02/20 at [place] infusion 2 1845, g Routine iopamidol 2020- No [id number] 120mL 120 mL, Univers (ISOVUE 11-02 Intravenou ity o f 370-500 mL) 23:45: 23:45 s, ONCE, 1 [place] injection 00 :00 dose, Fri Medic al 120 mL 11/02/20 at [place] 1845, Routine proMETHazin 2020- No 12.5mg 12.5 mg, Univers e 11-02 IV ity of (PHENERGAN) 23:15: 23:15 Piggyback, [place] 12.5 mg in 00 :00 ONCE, 1 Medica l NaCl 0.9% dose, Thu Branc h (NS) 50 mL 11/02/20 at piggyback 1815, 50 mL FENTanyl PF 2020- No 50ug 50 mcg, Un [place]ce[place] (SUBLIMAZE 11-02 Slow IV ity o f (PF)) 22:15: 22:08 Push, [place] injection 00 :00 ONCE, 1 Medical 50 mcg dose, Fri [place] 11/02/20 at 1715, STAT NaCl 0.9% 2020- No 1000mL at 999 Uni vers (NS) bolus 11-02 mL/hr, ity of infusion 22:00: 00:00 1,000 mL, [place] as 1,000 mL 00 :00 IV Medical Infusion, [place] ONCE, 1 dose, 11/02/20 at 1700, STAT methylpredn 2020- No 125mg 125 mg, U nivers isolone sod 11-02 Intravenou i ty of succ 22:00: 22:11 s, ONCE, 1 [place] (SOLU-MEDRO 00 :00 dose, Fri Med ical L) 11/02/20 at Branch injection 1700, STAT 125 mg methylPREDN 0 Yes [id number] Take by Univers ISolone 8-06 mouth ity of (MEDROL, 00:00: SEE-INSTRU [place] as OBDULIA,) 4 mg 00 CTIONS. Medica l tablets follow Branch package directions traMADoL 50 0 Yes [id number] 50mg Take 1 Univ ers mg tablet 8-06 tablet by ity o f 00:00: mouth [place] 00 every 6 Medical (six) Branch hours as needed for Pain (scale 4-6). Indication s: acute pain pantoprazol Yes [id number] 40mg Take 1 Univers e 40 mg EC 8-06 tablet by ity of tablet 00:00: mouth [place] 00 daily. Medical Branch proMETHazin Yes [id number] 25mg Take 1 Univers e 25 mg 8-06 tablet by ity of tablet 00:00: mouth [place] 00 every 6 Medical (six) Branch hours as needed for Nausea and Vomiting (N/V). methylPREDN 0 Yes [id number] Take by Univers ISolone 8-06 mouth ity of (MEDROL, 00:00: SEE-INSTRU [place] as OBDULIA,) 4 mg 00 CTIONS. Medica l tablets follow Branch package directions traMADoL 50 0 Yes [id number] 50mg Take 1 Univ ers mg tablet 8-06 tablet by ity o f 00:00: mouth [place] 00 every 6 Medical (six) Branch hours as needed for Pain (scale 4-6). Indication s: acute pain pantoprazol Yes [id number] 40mg Take 1 Univers e 40 mg EC 8-06 tablet by ity of tablet 00:00: mouth [place] 00 daily. Medical Branch proMETHazin Yes [id number] 25mg Take 1 Univers e 25 mg [...] 08/06/20 at 0045, Routine iopamidol 2020- No [id number] 100mL 100 mL, Univers (ISOVUE 5-10 05-10 Intravenou ity o f 370-500 mL) 04:45: 03:27 s, ONCE, 1 [place] injection 00 :00 dose, [place] Medic al 100 mL 08/05/20 at Branch 2345, Routine ondansetron 2020- No 4mg 4 mg, Slow Univers (ZOFRAN 5 05-10 IV Push, ity of (PF)) 04:15: 03:17 ONCE, 1 [place] injection 4 00 :00 dose, [place] Med ical mg 08/05/20 at Branch 2315, MANFRED FENTanyl PF No 50ug 50 mcg, Un chauncey (SUBLIMAZE 5 05-10 Slow IV ity o f (PF)) 04:15: 03:17 Push, [place] injection 00 :00 ONCE, 1 Medical 50 mcg dose, [facility] 08/05/20 at 2315, Routine cefTRIAXone No 1000mg 1,000 mg, Univers (ROCEPHIN) 5 05-10 IV ity of 1,000 mg in 04:00: 03:51 Piggyback, [place] NaCl 0.9% 00 :00 ONCE, 1 Medical (NS) 50 mL dose, [facility] ch MINI-BAG 08/05/20 at 2300, 50 mL
Reas on for Anti-Infec tive: Documented Infection< br>Documen jeny Infection Site: Urine
D uration of Therapy: 7 days dicyclomine No 20mg 20 mg, Uni vers (BENTYL) 5-10 05-10 Intramuscu ity of injection 03:15: 02:50 lar, ONCE, [place] 20 mg 00 :00 1 dose, Medical [place] 08/05/20 [place] at 2215, Routine NaCl 0.9% 2020- No 1000mL at 999 Uni vers (NS) bolus 5-10 05-10 mL/hr, ity of infusion 02:45: 04:21 1,000 mL, [place] 1,000 mL 00 :00 IV Medical Infusion, [place] ONCE, 1 dose, [place] 08/05/20 at 2145, MANFRED NaCl 0.9% 2020- No 1000mL at 999 Uni vers (NS) bolus 5-10 05-10 mL/hr, ity of infusion 02:15: 04:21 1,000 mL, [place] 1,000 mL 00 :00 IV Medical Infusion, Branch ONCE, 1 dose, [place] 08/05/20 at 2115, MANFRED proMETHazin Yes [id number] 25mg Take 1 Univers e 25 mg 5-09 tablet by ity of tablet 00:00: mouth [place] 00 every 6 Medical (six) Branch hours as needed for N/V unresponsi ve to Ondansetro n. zolpidem Yes [id number] 12.5mg Take 1 U nivers 12.5 mg CR 5-09 tablet by ity of tablet 00:00: mouth at [place] 00 bedtime as Medical needed for Branch Sleep. zolpidem Yes [id number] 12.5mg Take 1 U nivers 12.5 mg CR 5-09 tablet by ity of tablet 00:00: mouth at [place] 00 bedtime as Medical needed for Branch Sleep. zolpidem Yes [id number] 12.5mg Take 1 U nivers 12.5 mg CR 5-09 tablet by ity of tablet 00:00: mouth at [place] 00 bedtime as Medical needed for Branch Sleep. proMETHazin 2020- No [id number] 25mg Take 1 Univers e 25 mg 5-09 08-06 tablet by ity of tablet 00:00: 00:00 mouth [place] 00 :00 every 6 Medical (six) Branch hours as needed for N/V unresponsi ve to Ondansetro n. dicyclomine 2020- No [id number] 20mg Take 1 Univers 20 mg -12 02-17 tablet by ity of tablet 00:00: 04:59 mouth 4 [place] 00 :00 (four) Medical times Branch daily for 7 days. cefdinir 2020- No [id number] 300mg Take 1 U nivers 300 mg 08-05-17 capsule by ity of capsule 00:00: 04:59 mouth 2 [place] 00 :00 (two) Medical times Branch daily for 7 days. insulin 2020- No 8U 8 Units, Unive rs regular 07-23 Slow IV ity of human 01:30: 00:52 Push, [place] (HUMULIN R) 00 :00 ONCE, 1 Medic al injection 8 dose, [facility] Units 07/22/20 at 2030, Routine dexamethaso 2020- No 10mg 10 mg, IV Univers ne 07-23 Push, ity of (DECADRON 01:15: 00:18 ONCE, 1 [place] PHOSPHATE) 00 :00 dose, [place] Medi nicole injection 07/22/20 at Bran ch 10 mg 2015, STAT NaCl 0.9% 2020- No 1000mL at 999 Uni vers (NS) bolus 07-23- mL/hr, ity of infusion 00:15: 01:01 1,000 mL, [place] 1,000 mL 00 :00 IV Medical Infusion, Branch ONCE, 1 dose, [place] 07/22/20 at 1915, MANFRED ketorolac 2020- No 30mg 30 [facility], [facility] 07-22 Slow IV ity of injection 23:45: 22:55 Push, [place] 30 mg 00 :00 ONCE, 1 Medical dose, [facility] 07/22/20 at 1845, Routine
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 Indication s: acute pain ibuprofen 2020-0 Yes [id number] 800mg Take 1 U nivers 800 mg [...] (scale 7-10). Indication s: acute pain ibuprofen Yes [id number] 800mg Take 1 U nivers 800 mg 4-25 tablet by ity of tablet 00:00: mouth [place] 00 every 6 Medical (six) Branch hours as needed for Pain (scale 4-6). ibuprofen Yes [id number] 800mg Take 1 U nivers 800 mg 4-25 tablet by ity of tablet 00:00: mouth [place] 00 every 6 Medical (six) Branch hours as needed for Pain (scale 4-6). traMADoL 50 0 2020- No [id number] 50mg Take 1 Uni [...] 7-10). Indication s: acute pain ibuprofen 0 2020- No [id number] 800mg Take 1 Univers 800 mg 4-25 04-25 tablet by ity of tablet 00:00: 00:00 mouth [place] 00 :00 every 6 Medical (six) Branch hours as needed for Pain (scale 4-6). NaCl 0.9% 2020- No 1000mL at 999 Uni vers (NS) bolus 2-21 02-21 mL/hr, ity of infusion 00:00: 00:05 1,000 [...] mL 1800, 50 piggyback mL FENTanyl PF 2020- No 100ug 100 mcg, Univers (SUBLIMAZE 05-20 Slow IV ity o f (PF)) 00:00: 23:04 Push, [place] injection 00 :00 ONCE, 1 Medical 100 mcg dose, Sat Branch 05/19/20 at 1800, STAT proMETHazin Yes [id number] 25mg Take 1 Univers e 25 mg 2-20 tablet by ity of tablet 00:00: mouth [place] 00 every 6 Medical (six) Branch hours as needed for Nausea and Vomiting (N/V). traMADoL 50 Yes [id number] 50mg Take 1 Univ ers mg tablet 2-20 tablet by ity o f 00:00: mouth [place] 00 every 6 Medical (six) Branch hours as needed for Pain (scale 7-10). Indication s: acute pain proMETHazin Yes [id number] 25mg Insert 1 Univers e 25 mg 2-20 Suppositor ity of suppository 00:00: y [place] 00 rectum Medical every 4 Branch (four) hours as needed for Nausea and Vomiting (N/V). proMETHazin Yes [id number] 25mg Take 1 Univers e 25 mg 2-20 tablet by ity of tablet 00:00: mouth [place] 00 every 6 Medical (six) Branch hours as needed for Nausea and Vomiting (N/V). traMADoL 50 Yes [id number] 50mg Take 1 Univ ers mg tablet 2-20 tablet by ity o f 00:00: mouth [place] 00 every 6 Medical (six) Branch hours as needed for Pain (scale 7-10). Indication s: acute pain proMETHazin 0 Yes [id number] 25mg Insert 1 Univers e 25 mg 2-20 Suppositor ity of suppository 00:00: y into [place] 00 rectum Medical every 4 Branch (four) hours as needed for Nausea and Vomiting (N/V). proMETHazin 0 Yes [id number] 25mg Take 1 Univers e 25 mg [...] (scale 7-10). Indication s: acute pain proMETHazin Yes [id number] 25mg Insert 1 Univers e 25 mg 2-20 Suppositor ity of suppository 00:00: y into [place] 00 rectum Medical every 4 Branch (four) hours as needed for Nausea and Vomiting (N/V). proMETHazin Yes [id number] 25mg Take 1 Univers e 25 mg [...] Indication s: acute pain proMETHazin 0 Yes [id number] 25mg Insert 1 Univers e 25 mg 2-20 Suppositor ity of suppository 00:00: y into [place] 00 rectum Medical every 4 Branch (four) hours as needed for Nausea and Vomiting (N/V). proMETHazin 2020- No [id number] 25mg Take 1 Univers e 25 mg 2-20 08-06 tablet by ity of tablet 00:00: 00:00 mouth [place] 00 :00 every 6 Medical (six) Branch hours as needed for Nausea and Vomiting (N/V). traMADoL 50 0 2020- No [id number] 50mg Take 1 Uni vers mg tablet 2-20 08- tablet by ity of 00:00: 00:00 mouth [place] 00 :00 every 6 Medical (six) Branch hours as needed for Pain (scale 7-10). Indication s: acute pain proMETHazin 2020-0 202- No [id number] 25mg Insert 1 Univers e 25 mg 2-20 - Suppositor ity o f suppository 00:00: 00:00 y into [place] as 00 :00 rectum Medical every 4 Branch (four) hours as needed for Nausea and Vomiting (N/V). ibuprofen 2020- Yes [id number] 600mg Take 1 Univers 600 mg 2-12 tablet by ity of tablet 00:00: mouth [place] 00 every 6 Medical (six) Branch hours as needed for Pain (scale 4-6). metFORMIN 2019- Yes [id number] 500mg Take 1 Univers 500 mg 2-12 tablet by ity of tablet 00:00: mouth 2 00 (two) Medical times Branch daily with meals. cyclobenzap 2019-03 Yes [id number] 10mg Take 1 Univers rine 10 mg 2-12 tablet by ity of tablet 00:00: mouth 3 (three) Medical times Branch daily. ibuprofen 2019- Yes [id number] 600mg Take 1 Univers 600 mg 2-12 tablet by ity of tablet 00:00: mouth [place] 00 every 6 Medical (six) Branch hours as needed for Pain (scale 4-6). metFORMIN 2019-1 Yes [id number] 500mg Take 1 Univers 500 mg 2-12 tablet by ity of tablet 00:00: mouth 2 (two) Medical times Branch daily with meals. cyclobenzap 2020- Yes [id number] 10mg Take 1 Univers rine 10 mg 2-12 tablet by ity of tablet 00:00: mouth 3 00 (three) Medical times Branch daily. ibuprofen 2020- Yes [id number] 600mg Take 1 Univers 600 mg 2-12 tablet by ity of tablet 00:00: mouth [place] 00 every 6 Medical (six) Branch hours as needed for Pain (scale 4-6). metFORMIN 2020- Yes [id number] 500mg Take 1 Univers 500 mg 2-12 tablet by ity of tablet 00:00: mouth 2 00 (two) Medical times Branch daily with meals. cyclobenzap 2020- Yes [id number] 10mg Take 1 Univers rine 10 mg 2-12 tablet by ity of tablet 00:00: mouth 3 00 (three) Medical times Branch daily. ibuprofen 2020- Yes [id number] 600mg Take 1 Univers 600 mg 2-12 tablet by ity of tablet 00:00: mouth [place] 00 every 6 Medical (six) Branch hours as needed for Pain (scale 4-6). metFORMIN 2019- Yes [id number] 500mg Take 1 Univers 500 mg 2-12 tablet by ity of tablet 00:00: mouth 2 00 (two) Medical times Branch daily with meals. cyclobenzap 2019-03 Yes [id number] 10mg Take 1 Univers rine 10 mg 2-12 tablet by ity of tablet 00:00: mouth 3 00 (three) Medical times Branch daily. ibuprofen 2019- Yes [id number] 600mg Take 1 Univers 600 mg 2-12 tablet by ity of tablet 00:00: mouth [place] 00 every 6 Medical (six) Branch hours as needed for Pain (scale 4-6). metFORMIN 2019- Yes [id number] 500mg Take 1 Univers 500 mg 2-12 tablet by ity of tablet 00:00: mouth 2 00 (two) Medical times Branch daily with meals. cyclobenzap 2019-03 Yes [id number] 10mg Take 1 Univers rine 10 mg 2-12 tablet by ity of tablet 00:00: mouth 3 00 (three) Medical times Branch daily. ibuprofen 2019- Yes [id number] 600mg Take 1 Univers 600 mg 2-12 tablet by ity of tablet 00:00: mouth [place] 00 every 6 Medical (six) Branch hours as needed for Pain (scale 4-6). metFORMIN 2019- Yes [id number] 500mg Take 1 Univers 500 mg 2-12 tablet by ity of tablet 00:00: mouth 2 00 (two) Medical times Branch daily with meals. cyclobenzap 2019-03 Yes [id number] 10mg Take 1 Univers rine 10 mg 2-12 tablet by ity of tablet 00:00: mouth 3 00 (three) Medical times Branch daily. proMETHazin 2019-03- No [id number] 25mg Take 1 Univers e 25 mg 2-12 02-20 tablet by ity of tablet 00:00: 00:00 mouth [place] 00 :00 every 6 Medical (six) Branch hours as needed for Nausea and Vomiting (N/V). insulin 2020-0 2020- No 5U 5 Units, Unive rs regular -25 05-25 Subcutaneo ity o f human 08:00: 07:05 , ONCE, [place] (HUMULIN R) 00 :00 1 dose, Medic al injection 5 [facility] Branch Units 08/22/19 at 0300, Routine FENTanyl PF 2019-0 2020- No 50ug 50 mcg, Un [place] (SUBLIMAZE 5-25 05-25 Slow IV ity o f (PF)) 07:30: 07:05 Push, [place] injection 00 :00 ONCE, 1 Medical 50 mcg dose, [facility] Branch 08/22/19 at 0230, Routine FENTanyl PF 2019-0 2020- No 75ug 75 mcg, Un [place] (SUBLIMAZE 5-25 05-25 Slow IV ity o f (PF)) 06:15: 05:20 Push, [place] injection 00 :00 ONCE, 1 Medical 75 mcg dose, [facility] Branch 08/22/19 at 0115, Routine proMETHazin 2019-0 2020- No 25mg 25 mg, IV Univers e 08-21 05-25 Piggyback, ity of (PHENERGAN) 06:15: 05:20 ONCE, 1 [place] 25 mg in 00 :00 dose, Mon Medica l NaCl 0.9% 08/22/19 at Bran ch (NS) 50 mL 0115, 50 piggyback mL propranolol 2020-0 Yes 60mg Take 60 mg Univers (INDERAL) 5-25 by mouth ity of 60 mg 05:29: daily. [place] tablet 28 Medical Branch carvediloL 2020-0 Yes 12.5mg Take 12.5 Univers 12.5 mg 5-25 mg by ity of tablet 05:29: mouth 2 [place] [address] (two) Medical times [place] daily with meals. propranolol 2020-0 Yes 60mg Take 60 mg Univers (INDERAL) 5-25 by mouth ity of 60 mg 05:29: daily. [place] tablet 28 Medical Branch carvediloL 2020-0 Yes 12.5mg Take 12.5 Univers 12.5 mg 5-25 mg by ity of tablet 05:29: mouth 2 [place] [address] (two) Medical times [place] daily with meals. propranolol 2020-0 Yes 60mg Take 60 mg Univers (INDERAL) 5-25 by mouth ity of 60 mg 05:29: daily. [place] tablet [address] [facility] carvediloL 2020-0 Yes 12.5mg Take 12.5 Univers 12.5 mg 5-25 mg by ity of tablet 05:29: mouth 2 [place] [address] ([facility] times [place] daily with meals. propranolol 2020-0 Yes 60mg Take 60 mg Univers (INDERAL) 5-25 by mouth ity of 60 mg 05:29: daily. [place] tablet [address] [facility] carvediloL 2020-0 Yes 12.5mg Take 12.5 Univers 12.5 mg 5-25 mg by ity of tablet 05:29: mouth 2 [place] [address] ([facility]) [facility] daily with meals. propranolol 2020-0 Yes 60mg Take 60 mg Univers (INDERAL) 5-25 by mouth ity of 60 mg 05:29: daily. [facility] [address] [facility] carvediloL 2020-0 Yes 12.5mg Take 12.5 Univers 12.5 mg 5-25 mg by ity of tablet 05:29: mouth 2 [place] [address] ([facility] daily with meals. propranolol 2020-0 Yes 60mg Take 60 mg Univers (INDERAL) 5-25 by mouth ity of 60 mg 05:29: daily. [address] carvediloL 2020-0 Yes 12.5mg Take 12.5 Univers 12.5 mg 5-25 mg by ity of tablet 05:29: mouth 2 [place] [address] ([facility]) [facility] daily with meals. ARIPiprazol 2020-0 Yes 2mg Take 2 mg U nivers e (ABILIFY) 5-25 by mouth ity of 2 mg tablet 05:28: daily. [address] ARIPiprazol 2020-0 Yes 2mg Take 2 mg U nivers e (ABILIFY) 5-25 by mouth ity of 2 mg tablet 05:28: daily. [address] ARIPiprazol 2020-0 Yes 2mg Take 2 mg U nivers e (ABILIFY) 5-25 by mouth ity of 2 mg tablet 05:28: daily. [address] ARIPiprazol 2020-0 Yes 2mg Take 2 mg U nivers e (ABILIFY) 5-25 by mouth ity of 2 mg tablet 05:28: daily. [address] ARIPiprazol 2020-0 Yes 2mg Take 2 mg U nivers e (ABILIFY) 5-25 by mouth ity of 2 mg tablet 05:28: daily. [address] ARIPiprazol 2020-0 Yes 2mg Take 2 mg U nivers e (ABILIFY) 5-25 by mouth ity of 2 mg tablet 05:28: daily. [address] propranolol 2020-0 Yes 60mg Take 60 mg Univers (INDERAL) 5-25 by mouth ity of 60 mg 00:29: daily. [place] tablet [address] [place] [address] Branch carvediloL 2020-0 Yes 12.5mg Take 12.5 Univers 12.5 mg 5-25 mg by ity of tablet 00:29: mouth 2 [place] [address] (two) Medical times Branch daily with meals. ARIPiprazol 2020-0 Yes 2mg Take 2 mg U nivers e (ABILIFY) 5-25 by mouth ity of 2 mg tablet 00:28: daily. [address] dicyclomine 2020-0 Yes [id number] 20mg Take 1 Univers 20 mg 5-25 tablet by ity of tablet 00:00: mouth [place] 00 every 6 Medical (six) Branch hours as needed for Abdominal pain. proMETHazin 2020-0 Yes [id number] 25mg Take 1 U nivers e 25 mg 5-25 tablet by ity of tablet 00:00: mouth [place] 00 every 6 Medical (six) Branch hours as needed for Nausea and Vomiting (N/V). dicyclomine 2020-0 Yes [id number] 20mg Take 1 Univers 20 mg 5-25 tablet by ity of tablet 00:00: mouth [place] 00 every 6 Medical (six) Branch hours as needed for Abdominal pain. dicyclomine 2020-0 Yes [id number] 20mg Take 1 Univers 20 mg 5-25 tablet by ity of tablet 00:00: mouth [place] 00 every 6 Medical (six) Branch hours as needed for Abdominal pain. dicyclomine 2020-0 Yes [id number] 20mg Take 1 [facility] 20 mg 5-25 tablet by ity of tablet 00:00: mouth [place] 00 every 6 Medical (six) Branch hours as needed for Abdominal pain. dicyclomine 2020-0 Yes [id number] 20mg Take 1 [facility] 20 mg 5-25 tablet by ity of tablet 00:00: mouth [place] 00 every 6 Medical (six) Branch hours as needed for Abdominal pain. dicyclomine 2020-0 Yes [id number] 20mg Take 1 [facility] 20 mg 5-25 tablet by ity of tablet 00:00: mouth [place] 00 every 6 Medical (six) Branch hours as needed for Abdominal pain. dicyclomine 2020-0 Yes [id number] 20mg Take 1 [facility] 20 mg 5-25 tablet by ity of tablet 00:00: mouth [place] 00 every 6 Medical (six) Branch hours as needed for Abdominal pain. dicyclomine 2020-0 Yes [id number] 20mg Take 1 [facility] 20 mg 5-25 tablet by ity of tablet 00:00: mouth [place] 00 every 6 Medical (six) Branch hours as needed for Abdominal pain. dicyclomine 2020-0 Yes [id number] 20mg Take 1 [facility] 20 mg 5-25 tablet by ity of tablet 00:00: mouth [place] 00 every 6 Medical (six) Branch hours as needed for Abdominal pain. dicyclomine 2020-0 Yes [id number] 20mg Take 1 [facility] 20 mg 5-25 tablet by ity of tablet 00:00: mouth [place] 00 every 6 Medical (six) Branch hours as needed for Abdominal pain. dicyclomine 2020-0 Yes [id number] 20mg Take 1 [facility] 20 mg 5-25 tablet by ity of tablet 00:00: mouth [place] 00 every 6 Medical (six) Branch hours as needed for Abdominal pain. dicyclomine 2020-0 Yes [id number] 20mg Take 1 [facility] 20 mg 5-25 tablet by ity of tablet 00:00: mouth [place] 00 every 6 Medical (six) Branch hours as needed for Abdominal pain. dicyclomine 2020-0 Yes [id number] 20mg Take 1 [facility] 20 mg 5-25 tablet by ity of tablet 00:00: mouth [place] 00 every 6 Medical (six) Branch hours as needed for Abdominal pain. dicyclomine 2020-0 Yes [id number] 20mg Take 1 [facility] 20 mg 5-25 tablet by ity of tablet 00:00: mouth [place] 00 every 6 Medical (six) Branch hours as needed for Abdominal pain. proMETHazin 2020-0 2021- No [id number] 25mg Take 1 [facility] e 25 mg 5-25 02-20 tablet by ity of tablet 00:00: 00:00 mouth [place] 00 :00 every 6 Medical (six) Branch hours as needed for Nausea and Vomiting (N/V). ARIPiprazol 2020-0 Yes 2mg Take 2 mg U nivers e (ABILIFY) 5-07 by mouth ity of 2 mg tablet 19:53: daily. [place] [address] Medical Branch tiZANidine 2020-0 Yes 4mg Take 4 mg [facility] (ZANAFLEX) 5-07 by mouth 2 ity of 4 mg 19:53: (two) [place] capsule 38 times Medical daily. Branch citalopram 2020-0 Yes 40mg Take 40 mg [facility] (CELEXA) 40 5-07 by mouth ity of mg tablet 19:53: daily. [place] [address] Medical Branch clonazePAM 2020-0 Yes Take by [facility] vers (KLONOPIN) 5-07 mouth 2 ity of 0.5 mg 19:53: (two) [place] disintegrat 38 times Medical ing tablet daily as Branc h needed for Anxiety. ZN 2020-0 Yes Take by [facility] GLUC/PUMP 5-07 mouth. ity of SEED 19:53: [place] OIL/SAW PAL 38 Medical (PROPALMEX Branch ORAL) propranolol 2020-0 Yes 60mg Take 60 mg [facility] (INDERAL) 5-07 by mouth ity of 60 mg 19:53: daily. [place] tablet Medical Branch butorphanol 2020-0 Yes 1{spray Use 1 [facility] (STADOL) 10 5-07 } Rhodelia in ity of mg/mL nasal 19:53: each [place] spray 38 nostril as Medical needed for Branch Pain. METFORMIN 2020-0 Yes 500mg Take 500 [facility] vers HCL 5-07 mg by [facility] of (METFORMIN 19:53: [place] ORAL[place] 38 (two) Medical times Branch daily. zolpidem 2020-0 Yes 12.5mg Take 12.5 [facility] 12.5 mg CR 5-07 mg by ity of tablet 19:53: mouth at [place] [address] bedtime as Medical needed for Branch Sleep. ARIPiprazol 2020-0 Yes 2mg Take 2 mg U nivers e (ABILIFY) 5-07 by mouth ity of 2 mg tablet 19:53: daily. [place] [address] Medical Branch tiZANidine 2020-0 Yes 4mg Take 4 mg [facility] (ZANAFLEX) 5-07 by mouth 2 ity of 4 mg 19:53: (two) [place] capsule 38 times Medical daily. Branch citalopram 2020-0 Yes 40mg Take 40 mg [facility] (CELEXA) 40 5-07 by mouth ity of mg tablet 19:53: daily. [place] [address] Medical Branch clonazePAM 2020-0 Yes Take by [facility] vers (KLONOPIN) 5-07 mouth 2 ity of 0.5 mg 19:53: (two) [place] disintegrat 38 times Medical ing tablet daily as Branc h needed for Anxiety. ZN 2020-0 Yes Take by [facility] GLUC/PUMP 5-07 mouth. ity of SEED 19:53: [place] OIL/SAW PAL 38 Medical (PROPALMEX Branch ORAL) propranolol 2020-0 Yes 60mg Take 60 mg [facility] (INDERAL) 5-07 by mouth ity of 60 mg 19:53: daily. [place] tablet Medical Branch butorphanol 2020-0 Yes 1{spray Use 1 [facility] [place] (STADOL) 10 5-07 } [place] in ity of mg/mL nasal 19:53: each [place] spray 38 nostril as Medical needed for Branch Pain. METFORMIN 2020-0 Yes 500mg Take 500 [facility] vers HCL 5-07 mg by ity of (METFORMIN 19:53: mouth [place] ORAL[place] 38 (two) Medical times Branch daily. zolpidem 2020-0 Yes 12.5mg Take 12.5 [facility] [place] 12.5 mg CR 5-07 mg by ity of tablet 19:53: mouth at [place] [address] bedtime as Medical needed for Branch Sleep. ARIPiprazol 2020-0 Yes 2mg Take 2 mg [facility] n[facility] e (ABILIFY) 5-07 by mouth ity of 2 mg tablet 19:53: daily. [place] 38 [facility] Branch tiZANidine 2020-0 Yes 4mg Take 4 mg [facility] [place] (ZANAFLEX) 5-07 by mouth 2 ity of 4 mg 19:53: (two) [place] capsule 38 times Medical daily. Branch citalopram 2020-0 Yes 40mg Take 40 mg [facility] (CELEXA) 40 5-07 by mouth ity of mg tablet 19:53: daily. [place] [address] Medical Branch clonazePAM 2020-0 Yes Take by [...] mouth ity of 60 mg 19:53: daily. [place] tablet 38 Medical Branch butorphanol 2020-0 Yes 1{spray Use 1 [facility] [place] (STADOL) 10 5-07 } [place] in ity of mg/mL nasal 19:53: each [place] spray 38 nostril as Medical needed for Branch Pain. METFORMIN 2020-0 Yes 500mg Take 500 [facility] vers HCL 5-07 mg by ity of (METFORMIN 19:53: mouth 2 [place] ORAL[place] 38 (two) Medical times Branch daily. zolpidem 2020-0 Yes 12.5mg Take 12.5 [facility] [place] 12.5 mg CR 5-07 mg by ity of tablet 19:53: mouth at [place] [address] bedtime as Medical needed for Branch Sleep. ARIPiprazol 2020-0 Yes 2mg Take 2 mg [facility] nivers e (ABILIFY) 5-07 by mouth ity of 2 mg tablet 19:53: [facility]. [facility] tiZANidine 2020-0 Yes 4mg Take 4 mg [facility] [place] (ZANAFLEX) 5-07 by mouth 2 ity of 4 mg 19:53: (two) [place] capsule 38 times Medical daily. Branch citalopram 2020-0 Yes 40mg Take 40 mg U nivers (CELEXA) 40 5-07 by mouth ity of mg tablet 19:53: daily. [address] Branch clonazePAM 2020-0 Yes Take by [facility] vers (KLONOPIN) 5-07 mouth 2 ity of 0.5 mg 19:53: (two) [place] disintegrat 38 times Medical ing tablet daily as Branc h needed for Anxiety. ZN 2020-0 Yes Take by [facility] GLUC/PUMP 5-07 mouth. ity of SEED 19:53: [place] OIL/SAW PAL 38 Medical (PROPALMEX Branch ORAL) propranolol 2020-0 Yes 60mg Take 60 mg [facility] (INDERAL) 5-07 by mouth ity of 60 mg 19:53: daily. [place] tablet 38 Medical Branch butorphanol 2020-0 Yes 1{spray Use 1 [facility] [place] (STADOL) 10 5-07 } [place] in ity of mg/mL nasal 19:53: each [place] spray 38 nostril as Medical needed for Branch Pain. METFORMIN 2020-0 Yes 500mg Take 500 [facility] vers HCL 5-07 mg by ity of (METFORMIN 19:53: mouth [place] ORAL[place] 38 (two) Medical times Branch daily. zolpidem 2020-0 Yes 12.5mg Take 12.5 [facility] [place] 12.5 mg CR 5-07 mg by ity of tablet 19:53: mouth at [place] [address] bedtime as Medical needed for Branch Sleep. ARIPiprazol 2020-0 Yes 2mg Take 2 mg U nivers e (ABILIFY) 5-07 by mouth ity of 2 mg tablet 19:53: daily. [facility] tiZANidine 2020-0 Yes 4mg Take 4 mg [facility] [place] (ZANAFLEX) 5-07 by mouth 2 ity of 4 mg 19:53: (two) [place] capsule 38 times Medical daily. Branch citalopram 2020-0 Yes 40mg Take 40 mg U nivers (CELEXA) 40 5-07 by mouth ity of mg tablet 19:53: daily. [place] [address] Medical Branch clonazePAM 2020-0 Yes Take by [facility] vers (KLONOPIN) 5-07 mouth 2 ity of 0.5 mg 19:53: (two) [place] disintegrat 38 times Medical ing tablet daily as Branc h needed for Anxiety. ZN 2020-0 Yes Take by [facility] GLUC/PUMP 5-07 mouth. ity of SEED 19:53: [place] OIL/SAW PAL 38 Medical (PROPALMEX Branch ORAL) propranolol 2020-0 Yes 60mg Take 60 mg [facility] (INDERAL) 5-07 by mouth ity of 60 mg 19:53: daily. [place] tablet 38 Medical Branch butorphanol 2020-0 Yes 1{spray Use 1 [facility] [place] (STADOL) 10 5-07 } [place] in ity of mg/mL nasal 19:53: each [place] spray 38 nostril as Medical needed for Branch Pain. METFORMIN 2020-0 Yes 500mg Take 500 [facility] vers HCL 5-07 mg by ity of (METFORMIN 19:53: mouth 2 [place] ORAL[place] 38 (two) Medical times Branch daily. zolpidem 2020-0 Yes 12.5mg Take 12.5 [facility] [place] 12.5 mg CR 5-07 mg by ity of tablet 19:53: mouth at [place] [address] bedtime as Medical needed for Branch Sleep. ARIPiprazol 2020-0 Yes 2mg Take 2 mg U nivers e (ABILIFY) 5-07 by mouth ity of 2 mg tablet 19:53: daily. [facility] tiZANidine 2020-0 Yes 4mg Take 4 mg [facility] [place] (ZANAFLEX) 5-07 by mouth 2 ity of 4 mg 19:53: (two) [place] capsule 38 times Medical daily. Branch citalopram 2020-0 Yes 40mg Take 40 mg [facility] nivers (CELEXA) 40 5-07 by mouth ity of mg tablet 19:53: daily. [place] [address] Medical Branch clonazePAM 2020-0 Yes Take by [facility] vers (KLONOPIN) 5-07 mouth 2 ity of 0.5 mg 19:53: (two) [place] disintegrat 38 times Medical ing tablet daily as Branc h needed for Anxiety. ZN 2020-0 Yes Take by [facility] GLUC/PUMP 5-07 mouth. ity of SEED 19:53: [place] OIL/SAW PAL 38 Medical (PROPALMEX Branch ORAL) propranolol 2020-0 Yes 60mg Take 60 mg [facility] (INDERAL) 5-07 by mouth ity of 60 mg 19:53: daily. [place] tablet 38 Medical Branch butorphanol 2020-0 Yes 1{spray Use 1 [facility] [place] (STADOL) 10 5-07 } [place] in ity of mg/mL nasal 19:53: each [place] spray 38 nostril as Medical needed for Branch Pain. METFORMIN 2020-0 Yes 500mg Take 500 [facility] vers HCL 5-07 mg by ity of (METFORMIN 19:53: mouth 2 [place] ORAL[place] 38 (two) Medical times Branch daily. zolpidem 2020-0 Yes 12.5mg Take 12.5 [facility] [place] 12.5 mg CR 5-07 mg by ity of tablet 19:53: mouth at [place] [address] bedtime as Medical needed for Branch Sleep. ARIPiprazol 2020-0 Yes 2mg Take 2 mg U nivers e (ABILIFY) 5-07 by mouth ity of 2 mg tablet 19:53: daily. [place] 38 [facility] Branch tiZANidine 2020-0 Yes 4mg Take 4 mg [facility] [place] (ZANAFLEX) 5-07 by mouth 2 ity of 4 mg 19:53: (two) [place] capsule 38 times Medical daily. Branch citalopram 2020-0 Yes 40mg Take 40 mg U nivers (CELEXA) 40 5-07 by mouth ity of mg tablet 19:53: daily. [place] [address] Medical Branch clonazePAM 2020-0 Yes Take by [facility] vers (KLONOPIN) 5-07 mouth 2 ity of 0.5 mg 19:53: (two) [place] disintegrat 38 times Medical ing tablet daily as Branc h needed for Anxiety. ZN 2020-0 Yes Take by [facility] GLUC/PUMP 5-07 mouth. ity of SEED 19:53: [place] OIL/SAW PAL 38 Medical (PROPALMEX Branch ORAL) propranolol 2020-0 Yes 60mg Take 60 mg [facility] (INDERAL) 5-07 by mouth ity of 60 mg 19:53: daily. [place] tablet Medical Branch butorphanol 2020-0 Yes 1{spray Use 1 [facility] [place] (STADOL) 10 5-07 } [place] in ity of mg/mL nasal 19:53: each [place] spray 38 nostril as Medical needed for Branch Pain. METFORMIN 2020-0 Yes 500mg Take 500 [facility] vers HCL 5-07 mg by ity of (METFORMIN 19:53: mouth 2 [place] ORAL[place] 38 (two) Medical times Branch daily. zolpidem 2020-0 Yes 12.5mg Take 12.5 [facility] [place] 12.5 mg CR 5-07 mg by ity of tablet 19:53: mouth at [place] 38 bedtime as Medical needed for Branch Sleep. tiZANidine 2020-0 Yes 4mg Take 4 mg [facility] [place] (ZANAFLEX) 5-07 by mouth 2 ity of 4 mg 19:53: (two) [place] capsule 38 times Medical daily. Branch citalopram 2020-0 Yes 40mg Take 40 mg U nivers (CELEXA) 40 5-07 by mouth ity of mg tablet 19:53: daily. [place] [address] Medical Branch clonazePAM 2020-0 Yes Take by [...] 1 [facility] [place] (STADOL) 10 5-07 } [place] in ity of mg/mL nasal 19:53: each [...] by ity of tablet 19:53: mouth at [place] [address] bedtime as Medical needed for Branch Sleep. tiZANidine 2020-0 Yes 4mg Take 4 mg [facility] [place] (ZANAFLEX) 5-07 by mouth 2 ity of 4 mg 19:53: (two) [place] capsule 38 times Medical daily. Branch citalopram 2020-0 Yes 40mg Take 40 mg U nivers (CELEXA) 40 5-07 by mouth ity of mg tablet 19:53: daily. [place] [address] Medical Branch clonazePAM 2020-0 Yes Take by [facility] vers (KLONOPIN) 5-07 mouth 2 ity of 0.5 mg 19:53: (two) [place] disintegrat 38 times Medical ing tablet daily as Branc h needed for Anxiety. ZN 2020-0 Yes Take by [facility] GLUC/PUMP 5-07 mouth. ity of SEED 19:53: [place] OIL/SAW PAL 38 Medical (PROPALMEX Branch ORAL) butorphanol 2020-0 Yes 1{spray Use 1 [facility] [place] (STADOL) 10 5-07 } [place] in ity of mg/mL nasal 19:53: each [...] by ity of tablet 19:53: mouth at [place] 38 bedtime as Medical needed for Branch Sleep. tiZANidine 2020-0 Yes 4mg Take 4 mg [facility] [place] (ZANAFLEX) 5-07 by mouth 2 ity of 4 mg 19:53: (two) [place] capsule 38 times Medical daily. Branch citalopram 2020-0 Yes 40mg Take 40 mg U nivers (CELEXA) 40 5-07 by mouth ity of mg tablet 19:53: daily. [place] [address] Medical Branch clonazePAM 2020-0 Yes Take by [...] 1 [facility] [place] (STADOL) 10 5-07 } [place] in ity of mg/mL nasal 19:53: each [place] spray 38 nostril as Medical needed for Branch Pain. METFORMIN 2020-0 Yes 500mg Take 500 [facility] vers HCL 5-07 mg by ity of (METFORMIN 19:53: mouth 2 [place] ORAL[place] 38 (two) Medical times Branch daily. zolpidem 2020-0 Yes 12.5mg Take 12.5 [facility] [place] 12.5 mg CR 5-07 mg by ity of tablet 19:53: mouth at [place] [address] bedtime as Medical needed for Branch Sleep. tiZANidine 2020-0 Yes 4mg Take 4 mg [facility] [place] (ZANAFLEX) 5-07 by mouth 2 ity of 4 mg 19:53: (two) [place] capsule 38 times Medical daily. Branch citalopram 2020-0 Yes 40mg Take 40 mg U nivers (CELEXA) 40 5-07 by mouth ity of mg tablet 19:53: daily. [place] [address] Medical Branch clonazePAM 2020-0 Yes Take by [...] 1 [facility] [place] (STADOL) 10 5-07 } [place] in ity of mg/mL nasal 19:53: each [...] by ity of tablet 19:53: mouth at [place] 38 bedtime as Medical needed for Branch Sleep. tiZANidine 2020-0 Yes 4mg Take 4 mg [facility] [place] (ZANAFLEX) 5-07 by mouth 2 ity of 4 mg 19:53: (two) [place] capsule 38 times Medical daily. Branch citalopram 2020-0 Yes 40mg Take 40 mg U nivers (CELEXA) 40 5-07 by mouth ity of mg tablet 19:53: daily. [place] [address] Medical Branch clonazePAM 2020-0 Yes Take by [facility] vers (KLONOPIN) 5-07 mouth 2 ity of 0.5 mg 19:53: (two) [place] disintegrat 38 times Medical ing tablet daily as Branc h needed for Anxiety. ZN 2020-0 Yes Take by [facility] GLUC/PUMP 5-07 mouth. ity of SEED 19:53: [place] OIL/SAW PAL 38 Medical (PROPALMEX Branch ORAL) butorphanol 2020-0 Yes 1{spray Use 1 [facility] [place] (STADOL) 10 5-07 } [place] in ity of mg/mL nasal 19:53: each [...] by ity of tablet 19:53: mouth at [place] 38 bedtime as Medical needed for Branch Sleep. tiZANidine 2020-0 Yes 4mg Take 4 mg [place] (ZANAFLEX) 5-07 by mouth 2 ity of 4 mg 19:53: (two) [place] capsule 38 times Medical daily. Branch citalopram 2020-0 Yes 40mg Take 40 mg U nivers (CELEXA) 40 5-07 by mouth ity of mg tablet 19:53: daily. [place] [address] Medical Branch clonazePAM 2020-0 Yes Take by [facility] vers (KLONOPIN) 5-07 mouth 2 ity of 0.5 mg 19:53: (two) [place] disintegrat 38 times Medical ing tablet daily as Branc h needed for Anxiety. ZN 2020-0 Yes Take by [facility] GLUC/PUMP 5-07 mouth. ity of SEED 19:53: [place] OIL/SAW PAL 38 Medical (PROPALMEX Branch ORAL) butorphanol 2020-0 Yes 1{spray Use 1 [facility] [place] (STADOL) 10 5-07 } [place] in ity of mg/mL nasal 19:53: each [...] by ity of tablet 19:53: mouth at [place] 38 bedtime as Medical needed for Branch Sleep. tiZANidine 2020-0 Yes 4mg Take 4 mg [facility] [place] (ZANAFLEX) 5-07 by mouth 2 ity of 4 mg 14:53: (two) [place] capsule 38 times Medical daily. Branch citalopram 2020-0 Yes 40mg Take 40 mg U nivers (CELEXA) 40 5-07 by mouth ity of mg tablet 14:53: daily. [place] [address] Medical Branch clonazePAM 2020-0 Yes Take by [facility] vers (KLONOPIN) 5-07 mouth 2 ity of 0.5 mg 14:53: (two) [place] disintegrat 38 times Medical ing tablet daily as Branc h needed for Anxiety. ZN 2020-0 Yes Take by [facility] GLUC/PUMP 5-07 mouth. ity of SEED 14:53: [place] OIL/SAW PAL 38 Medical (PROPALMEX Branch ORAL) butorphanol 2020-0 Yes 1{spray Use 1 [facility] [place] (STADOL) 10 5-07 } [place] in ity of mg/mL nasal 14:53: each [place] spray 38 nostril as Medical needed for Branch Pain. METFORMIN 2020-0 Yes 500mg Take 500 [facility] vers HCL 5-07 mg by ity of (METFORMIN 14:53: mouth 2 [place] ORAL) 38 (two) Medical times Branch daily. zolpidem 2020-0 Yes 12.5mg Take 12.5 [facility] [place] 12.5 mg CR 5-07 mg by ity of tablet 14:53: mouth at [place] 38 bedtime as Medical needed for Branch Sleep. acetaminoph 2020-0 Yes [id number] 650mg Take 1 [facility] en 650 mg 5-07 tablet by ity o f CR tablet 00:00: mouth [place] 00 every 8 Medical (eight) Branch hours as needed for Pain or Fever. bromphenira 2020-0 Yes [id number] 10mL Take 10 mL [facility] mine-pseudo 5-07 by mouth 4 it y of ephedrine-D 00:00: (four) [place] M (BROMFED 00 times Medical DM) 2-30-10 daily as Bran ch mg/5 mL needed for syrup Cough. Bismuth 2020-0 Yes [id number] 262mg Take 1 [facility] Subsalicyla 5-07 tablet by ity of te 00:00: mouth 4 [place] (PEPTO-BISM 00 (four) Medica l OL) 262 mg times Branch tablet daily as needed (diarrhea) . proMETHazin 2020-0 Yes [id number] 25mg Take 1 [facility] e 25 mg 5-07 tablet by ity of tablet 00:00: mouth [place] 00 every 6 Medical (six) Branch hours as needed for Nausea and Vomiting (N/V). acetaminoph 2020-0 Yes [id number] 650mg Take 1 [facility] en 650 mg 5-07 tablet by ity o f CR tablet 00:00: mouth [place] 00 every 8 Medical (eight) Branch hours as needed for Pain or Fever. bromphenira 2020-0 Yes [id number] 10mL Take 10 mL [facility] mine-pseudo 5-07 by mouth 4 it y of ephedrine-D 00:00: (four) [place] M (BROMFED 00 times Medical DM) 2-30-10 daily as Bran ch mg/5 mL needed for syrup Cough. Bismuth 2020-0 Yes [id number] 262mg Take 1 [facility] [place] Subsalicyla 5-07 tablet by ity of te 00:00: mouth 4 [place] (PEPTO-BISM 00 (four) Medica l OL) 262 mg times Branch tablet daily as needed (diarrhea) . proMETHazin 2020-0 Yes [id number] 25mg Take 1 [facility] e 25 mg 5-07 tablet by ity of tablet 00:00: mouth [place] 00 every 6 Medical (six) Branch hours as needed for Nausea and Vomiting (N/V). acetaminoph 2020-0 Yes [id number] 650mg Take 1 [facility] en 650 mg 5-07 tablet by ity o f CR tablet 00:00: mouth [place] 00 every 8 Medical (eight) Branch hours as needed for Pain or Fever. bromphenira 2020-0 Yes [id number] 10mL Take 10 mL [facility] mine-pseudo 5-07 by mouth 4 it y of ephedrine-D 00:00: (four) [place] M (BROMFED 00 times Medical DM) 2-30-10 daily as Bran ch mg/5 mL needed for syrup Cough. Bismuth 2020-0 Yes [id number] 262mg Take 1 [facility] [place] Subsalicyla 5-07 tablet by ity of te 00:00: mouth 4 [place] (PEPTO-BISM 00 (four) Medica l OL) 262 mg times Branch tablet daily as needed (diarrhea) . proMETHazin 2020-0 Yes [id number] 25mg Take 1 [facility] e 25 mg 5-07 tablet by ity of tablet 00:00: mouth [place] 00 every 6 Medical (six) Branch hours as needed for Nausea and Vomiting (N/V). acetaminoph 2020-0 Yes [id number] 650mg Take 1 [facility] en 650 mg 5-07 tablet by ity o f CR tablet 00:00: mouth [place] 00 every 8 Medical (eight) Branch hours as needed for Pain or Fever. bromphenira 2020-0 Yes [id number] 10mL Take 10 mL [facility] mine-pseudo 5-07 by mouth 4 it y of ephedrine-D 00:00: (four) [place] M (BROMFED 00 times Medical DM) 2-30-10 daily as Bran ch mg/5 mL needed for syrup Cough. Bismuth 2020-0 Yes [id number] 262mg Take 1 [facility] [place] Subsalicyla 5-07 tablet by ity of te 00:00: mouth 4 [place] (PEPTO-BISM 00 (four) Medica l OL) 262 mg times Branch tablet daily as needed (diarrhea) . proMETHazin 2020-0 Yes [id number] 25mg Take 1 [facility] e 25 mg 5-07 tablet by ity of tablet 00:00: mouth [place] 00 every 6 Medical (six) Branch hours as needed for Nausea and Vomiting (N/V). acetaminoph 2020-0 Yes [id number] 650mg Take 1 [facility] en 650 mg 5-07 tablet by ity o f CR tablet 00:00: mouth [place] 00 every 8 Medical (eight) Branch hours as needed for Pain or Fever. bromphenira 2020-0 Yes [id number] 10mL Take 10 mL [facility] mine-pseudo 5-07 by mouth 4 it y of ephedrine-D 00:00: (four) [place] M (BROMFED 00 times Medical DM) 2-30-10 daily as Bran ch mg/5 mL needed for syrup Cough. Bismuth 2020-0 Yes [id number] 262mg Take 1 [facility] [place] Subsalicyla 5-07 tablet by ity of te 00:00: mouth 4 [place] (PEPTO-BISM 00 (four) Medica l OL) 262 mg times Branch tablet daily as needed (diarrhea) . proMETHazin 2020-0 Yes [id number] 25mg Take 1 [facility] e 25 mg 5-07 tablet by ity of tablet 00:00: mouth [place] 00 every 6 Medical (six) Branch hours as needed for Nausea and Vomiting (N/V). acetaminoph 2020-0 Yes [id number] 650mg Take 1 [facility] en 650 mg 5-07 tablet by ity o f CR tablet 00:00: mouth [place] 00 every 8 Medical (eight) Branch hours as needed for Pain or Fever. bromphenira 2020-0 Yes [id number] 10mL Take 10 mL [facility] mine-pseudo 5-07 by mouth 4 it y of ephedrine-D 00:00: (four) [place] M (BROMFED 00 times Medical DM) 2-30-10 daily as Bran ch mg/5 mL needed for syrup Cough. Bismuth 2020-0 Yes [id number] 262mg Take 1 [facility] [place] Subsalicyla 5-07 tablet by ity of te 00:00: mouth 4 [place] (PEPTO-BISM 00 (four) Medica l OL) 262 mg times Branch tablet daily as needed (diarrhea) . proMETHazin 2020-0 Yes [id number] 25mg Take 1 [facility] e 25 mg 5-07 tablet by ity of tablet 00:00: mouth [place] 00 every 6 Medical (six) Branch hours as needed for Nausea and Vomiting (N/V). acetaminoph 2020-0 Yes [id number] 650mg Take 1 [facility] en 650 mg 5-07 tablet by ity o f CR tablet 00:00: mouth [place] 00 every 8 Medical (eight) Branch hours as needed for Pain or Fever. bromphenira 2020-0 Yes [id number] 10mL Take 10 mL [facility] mine-pseudo 5-07 by mouth 4 it y of ephedrine-D 00:00: (four) [place] M (BROMFED 00 times Medical DM) 2-30-10 daily as Bran ch mg/5 mL needed for syrup Cough. Bismuth 2020-0 Yes [id number] 262mg Take 1 [facility] [place] Subsalicyla 5-07 tablet by ity of te 00:00: mouth 4 [place] (PEPTO-BISM 00 (four) Medica l OL) 262 mg times Branch tablet daily as needed (diarrhea) . proMETHazin 2020-0 Yes [id number] 25mg Take 1 [facility] e 25 mg 5-07 tablet by ity of tablet 00:00: mouth [place] 00 every 6 Medical (six) Branch hours as needed for Nausea and Vomiting (N/V). acetaminoph 2020-0 Yes [id number] 650mg Take 1 [facility] en 650 mg 5-07 tablet by ity o f CR tablet 00:00: mouth [place] 00 every 8 Medical (eight) Branch hours as needed for Pain or Fever. bromphenira 2020-0 Yes [id number] 10mL Take 10 mL [facility] mine-pseudo 5-07 by mouth 4 it y of ephedrine-D 00:00: (four) [place] M (BROMFED 00 times Medical DM) 2-30-10 daily as Bran ch mg/5 mL needed for syrup Cough. Bismuth 2020-0 Yes [id number] 262mg Take 1 [facility] [place] Subsalicyla 5-07 tablet by ity of te 00:00: mouth 4 [place] (PEPTO-BISM 00 (four) Medica l OL) 262 mg times Branch tablet daily as needed (diarrhea) . proMETHazin 2020-0 Yes [id number] 25mg Take 1 [facility] e 25 mg 5-07 tablet by ity of tablet 00:00: mouth [place] 00 every 6 Medical (six) Branch hours as needed for Nausea and Vomiting (N/V). acetaminoph 2020-0 Yes [id number] 650mg Take 1 [facility] en 650 mg 5-07 tablet by ity o f CR tablet 00:00: mouth [place] 00 every 8 Medical (eight) Branch hours as needed for Pain or Fever. bromphenira 2020-0 Yes [id number] 10mL Take 10 mL [facility] mine-pseudo 5-07 by mouth 4 it y of ephedrine-D 00:00: (four) [place] M (BROMFED 00 times Medical DM) 2-30-10 daily as Bran ch mg/5 mL needed for syrup Cough. Bismuth 2020-0 Yes [id number] 262mg Take 1 [facility] Subsalicyla 5-07 tablet by ity of te 00:00: mouth 4 [place] (PEPTO-BISM 00 (four) Medica l OL) 262 mg times Branch tablet daily as needed (diarrhea) . acetaminoph 2020-0 Yes [id number] 650mg Take 1 [facility] en 650 mg 5-07 tablet by ity o f CR tablet 00:00: mouth [place] 00 every 8 Medical (eight) Branch hours as needed for Pain or Fever. bromphenira 2020-0 Yes [id number] 10mL Take 10 mL [facility] mine-pseudo 5-07 by mouth 4 it y of ephedrine-D 00:00: (four) [place] M (BROMFED 00 times Medical DM) 2-30-10 daily as Bran ch mg/5 mL needed for syrup Cough. Bismuth 2020-0 Yes [id number] 262mg Take 1 [facility] Subsalicyla 5-07 tablet by ity of te 00:00: mouth 4 [place] (PEPTO-BISM 00 (four) Medica l OL) 262 mg times Branch tablet daily as needed (diarrhea) . acetaminoph 2020-0 Yes [id number] 650mg Take 1 Univers en 650 mg 5-07 tablet by ity o f CR tablet 00:00: mouth [place] 00 every 8 Medical (eight) Branch hours as needed for Pain or Fever. bromphenira 2020-0 Yes [id number] 10mL Take 10 mL Univers mine-pseudo 5-07 by mouth 4 it y of ephedrine-D 00:00[place] ([place] (BROMFED 00 times Medical DM) 2-30-10 daily as Bran ch mg/5 mL needed for syrup Cough. Bismuth 2020-0 Yes [id number] 262mg Take 1 Un chauncey Subsalicyla 5-07 tablet by ity of te 00:00: mouth 4 [place] (PEPTO-BISM 00 (four) Medica l OL) 262 mg times Branch tablet daily as needed (diarrhea) . acetaminoph 2020-0 Yes [id number] 650mg Take 1 Univers en 650 mg 5-07 tablet by ity o f CR tablet 00:00: mouth [place] 00 every 8 Medical (eight) Branch hours as needed for Pain or Fever. bromphenira 2020-0 Yes [id number] 10mL Take 10 mL Univers mine-pseudo 5-07 by mouth 4 it y of ephedrine-D 00:00: ([place] (BROMFED 00 times Medical DM) 2-30-10 daily as Bran ch mg/5 mL needed for syrup Cough. Bismuth 2020-0 Yes [id number] 262mg Take 1 Un chauncey Subsalicyla 5-07 tablet by ity of te 00:00: mouth 4 [place] (PEPTO-BISM 00 (four) Medica l OL) 262 mg times Branch tablet daily as needed (diarrhea) . acetaminoph 2020-0 Yes [id number] 650mg Take 1 Univers en 650 mg 5-07 tablet by ity o f CR tablet 00:00: mouth [place] 00 every 8 Medical (eight) Branch hours as needed for Pain or Fever. bromphenira 2020-0 Yes [id number] 10mL Take 10 mL Univers mine-pseudo 5-07 by mouth 4 it y of ephedrine-D 00:00: (four[place] (BROMFED 00 times Medical DM) 2-30-10 daily as Bran ch mg/5 mL needed for syrup Cough. Bismuth 2020-0 Yes [id number] 262mg Take 1 Un chauncey Subsalicyla 5-07 tablet by ity of te 00:00: mouth 4 [place] (PEPTO-BISM 00 (four) Medica l OL) 262 mg times Branch tablet daily as needed (diarrhea) . acetaminoph 2019-0 Yes [id number] 650mg Take 1 Univers en 650 mg 5-07 tablet by ity o f CR tablet 00:00: mouth [place] 00 every 8 Medical (eight) Branch hours as needed for Pain or Fever. bromphenira 2020-0 Yes [id number] 10mL Take 10 mL Univers mine-pseudo 5-07 by mouth 4 it y of ephedrine-D 00:00: (four[place] (BROMFED 00 times Medical DM) 2-30-10 daily as Bran ch mg/5 mL needed for syrup Cough. Bismuth 2019-0 Yes [id number] 262mg Take 1 Un chauncey Subsalicyla 5-07 tablet by ity of te 00:00: mouth 4 [place] (PEPTO-BISM 00 (four) Medica l OL) 262 mg times Branch tablet daily as needed (diarrhea) . proMETHazin 2020- No [id number] 25mg Take 1 Univers e 25 mg 5-07 02-20 tablet by ity of tablet 00:00: 00:00 mouth [place] 00 :00 every 6 Medical (six) Branch hours as needed for Nausea and Vomiting (N/V). traMADol 2018-0 Yes 50mg Q.5D Take 50 [...] (six) Center hours as needed. traMADOL 50 2016-0 Yes 100mg Take 2 Uni vers mg tablet 3-05 tablets by ity of 00:00: mouth [place] 00 every 6 Medical (six) Branch hours as needed for Pain (scale 4-6) or Pain (scale 7-10). traMADOL 50 [id number] Yes 100mg Take 2 Uni vers mg [...] 4-6) or Pain (scale 7-10). traMADOL 50 2017- Yes 100mg Take 2 Uni vers mg tablet 3-05 tablets by ity of 00:00: mouth [place] 00 every 6 Medical (six) Branch hours as needed for Pain (scale 4-6) or Pain (scale 7-10). traMADOL 50 2017- Yes 100mg Take 2 Uni vers mg tablet 3-05 tablets by ity of 00:00: mouth [place] 00 every 6 Medical (six) Branch hours as needed for Pain (scale 4-6) or Pain (scale 7-10). traMADOL 50 2016-0 2020- No 100mg Take 2 Un chauncey mg tablet 3-05 02-20 tablets by ity of 00:00: 00:00 mouth [place] 00 :00 every 6 Medical (six) Branch hours as needed for Pain (scale 4-6) or Pain (scale 7-10). metroNIDAZO 2015-03 Yes 500mg Take 1 Uni [...] needed for Nausea and Vomiting (N/V). HYDROcodone 2016-0 Yes 1{tbl} Take 1 Tab Univers -acetaminop 1-30 by mouth ity of hen (NORCO) 00:00: every 6 [place] 10-325 mg 00 (six) Medical tablet hours as Branch needed for Pain (scale 4-6) or Pain (scale 7-10). HYDROcodone 2016-0 Yes 1{tbl} Take 1 Tab Univers -acetaminop 1-30 by mouth ity of hen (NORCO) 00:00: every 6 [place] 10-325 mg 00 (six) Medical tablet hours as Branch needed for Pain (scale 4-6) or Pain (scale 7-10). HYDROcodone 2016-0 Yes 1{tbl} Take 1 Tab Univers -acetaminop 1-30 by mouth ity of hen (NORCO) 00:00: every 6 [place] 10-325 mg 00 (six) Medical tablet hours as Branch needed for Pain (scale 4-6) or Pain (scale 7-10). HYDROcodone 2016-0 Yes 1{tbl} Take 1 Tab Univers -acetaminop 1-30 by mouth ity of hen (NORCO) 00:00: every 6 [place] 10-325 mg 00 (six) Medical tablet hours as Branch needed for Pain (scale 4-6) or Pain (scale 7-10). HYDROcodone 2016-0 Yes 1{tbl} Take 1 Tab Univers -acetaminop 1-30 by mouth ity of hen (NORCO) 00:00: every 6 [place] 10-325 mg 00 (six) Medical tablet hours as Branch needed for Pain (scale 4-6) or Pain (scale 7-10). HYDROcodone 2016-0 Yes 1{tbl} Take 1 Tab Univers -acetaminop 1-30 by mouth ity of hen (NORCO) 00:00: every 6 [place] 10-325 mg 00 (six) Medical tablet hours as Branch needed for Pain (scale 4-6) or Pain (scale 7-10). HYDROcodone 2016-0 Yes 1{tbl} Take 1 Tab Univers -acetaminop 1-30 by mouth ity of hen (NORCO) 00:00: every 6 [place] as 10-325 mg 00 (six) Medical tablet hours as Branch needed for Pain (scale 4-6) or Pain (scale 7-10). HYDROcodone 2016-0 Yes 1{tbl} Take 1 Tab Univers -acetaminop 1-30 by mouth ity of hen (NORCO) 00:00: every 6 [place] 10-325 mg 00 (six) Medical tablet hours as Branch needed for Pain (scale 4-6) or Pain (scale 7-10). HYDROcodone 2020- No 1{tbl} Take 1 Tab Univers -acetaminop 1-30 02-20 by mouth ity of hen (NORCO) 00:00[place] 6 [place] 10-325 mg 00 :00 (six) Medical tablet hours as Branch needed for Pain (scale 4-6) or Pain (scale 7-10). Immunizations Ordered Filled Immunization Date Status Comments [facility] e Immunization Name Name Influenza Virus 2016-06-01 Completed Universit y of Vaccine Quad IM 3+ 00:00:00 [facility] Influenza Virus 2016-06-01 Completed Universit y of Vaccine Quad IM 3+ 00:00:00 [facility] Influenza Virus 2016-06-01 Completed Universit y of Vaccine [facility] IM 3+ 00:00:00 [facility] Influenza Virus 2016-06-01 Completed Universit y of Vaccine Quad IM 3+ 00:00:00 [facility] Influenza Virus 2016-06-01 Completed Universit y of Vaccine Quad IM 3+ 00:00:00 [facility] Influenza Virus 2016-06-01 Completed Universit y of Vaccine Quad IM 3+ 00:00:00 [facility] Influenza Virus 2016-06-01 Completed Universit y of Vaccine Quad IM 3+ 00:00:00 [facility] Influenza Virus 2016-06-01 Completed Universit y of Vaccine Quad IM 3+ 00:00:00 [facility] Influenza Virus 2016-06-01 Completed Universit y of Vaccine [facility] IM 3+ 00:00:00 [facility] Influenza Virus 2016-06-01 Completed Universit y of Vaccine Quad IM 3+ 00:00:00 [facility] Influenza Virus 2016-06-01 Completed Universit y of Vaccine Quad IM 3+ 00:00:00 [facility] Influenza Virus 2016-06-01 Completed Universit y of Vaccine Quad IM 3+ 00:00:00 [facility] Influenza Virus 2016-06-01 Completed Universit y of Vaccine Quad IM 3+ 00:00:00 [facility] Influenza Virus 2016-06-01 Completed Universit y of Vaccine Quad IM 3+ 00:00:00 [facility] Vital Signs Vital Name Observation Time Observation Value Comments Source Systolic blood 2021-03-30 03:00:00 125 mm[Hg] Univer sity of pressure [facility] Diastolic blood 2021-03-30 03:00:00 74 mm[Hg] Unive rsity of pressure [facility] Heart rate 2021-03-30 03:00:00 100 /min Universi ty of [facility] Respiratory rate 2021-03-30 03:00:00 20 /min Univ ersity of [facility] Oxygen saturation in 2021-03-30 03:00:00 100 /min University of Arterial blood by Fixational nicole Pulse oximetry Branch Body temperature 2021-03-29 23:35:00 36.61 Stella [facility] [place] [facility] [place] [facility] Body height 2021-03-29 23:35:00 160 cm [facility]i ty [facility] [place] [facility] Body weight 2021-03-29 23:35:00 98.884 kg [facility] [place] [facility] BMI 2021-03-29 23:35:00 38.62 kg/m2 [facility] [place] [facility] Systolic blood 2020-11-03 00:30:00 141 mm[Hg] Univer sity of pressure [facility] Diastolic blood 2020-11-03 00:30:00 85 mm[Hg] Unive rsity of pressure [facility] Heart rate 2020-11-03 00:30:00 83 /min [facility]i ty [facility] [place] [facility] Respiratory rate 2020-11-03 00:30:00 13 /min Univ ersity of [place] [facility] Oxygen saturation in 2020-11-03 00:30:00 97 /min University of Arterial blood by Fix[facility] nicole Pulse oximetry Branch Body temperature 2020-11-02 18:48:00 37 Stella Univ ersity of [place] [facility] Body weight 2020-11-02 18:48:00 93.441 kg [facility]i ty [facility] [place] [facility] BMI 2020-11-02 18:48:00 32.26 kg/m2 [facility] [place] [facility] Systolic blood 2020-11-03 00:30:00 141 mm[Hg] Univer sity of pressure [place] [facility] Diastolic blood 2020-11-03 00:30:00 85 mm[Hg] Unive rsity of pressure [place] [facility] Heart rate 2020-11-03 00:30:00 83 /min [facility]i ty [facility] [place] [facility] Respiratory rate 2020-11-03 00:30:00 13 /min Univ ersity of [place] [facility] Oxygen saturation in 2020-11-03 00:30:00 97 /min [facility] of Arterial blood by [place] [facility] Pulse oximetry Branch Body temperature 2020-11-02 18:48:00 37 Stella Univ ersity of [place] [facility] Body weight 2020-11-02 18:48:00 93.441 kg Universi ty [facility] [place] [facility] BMI 2020-11-02 18:48:00 32.26 kg/m2 [facility]i ty [facility] [place] [facility] Systolic blood 2020-08-06 04:05:00 155 mm[Hg] Univer sity of pressure [place] [facility] Diastolic blood 2020-08-06 04:05:00 101 mm[Hg] Unive rsity of pressure [place] [facility] Heart rate 2020-08-06 04:05:00 92 /min Universi ty [facility] [place] [facility] Respiratory rate 2020-08-06 04:05:00 19 /min Univ ersity of [place] [facility] Oxygen saturation in 2020-08-06 04:05:00 99 /min University of Arterial blood by [place] [facility] nicole Pulse oximetry Branch Body temperature 2020-08-06 01:37:00 36.89 Stella Univ ersity of [place] [facility] Body height 2020-08-06 01:37:00 170.2 cm [facility]i ty [facility] [place] [facility] Body weight 2020-08-06 01:37:00 93.895 kg [facility]i ty [facility] [place] [facility] BMI 2020-08-06 01:37:00 32.42 kg/m2 [facility] [place] [facility] Systolic blood 2020-08-06 04:05:00 155 mm[Hg] Univer sity of pressure [place] [facility] Diastolic blood 2020-08-06 04:05:00 101 mm[Hg] Unive rsity of pressure [place] [facility] Heart rate 2020-08-06 04:05:00 92 /min Universi ty [facility] [place] [facility] Respiratory rate 2020-08-06 04:05:00 19 /min Univ ersity of [place] [facility] Oxygen saturation in 2020-08-06 04:05:00 99 /min University of Arterial blood by [facility] nicole Pulse oximetry Branch Body temperature 2020-08-06 01:37:00 36.89 Stella Univ ersity of [place] [facility] Body height 2020-08-06 01:37:00 170.2 cm [facility] [place] [facility] Body weight 2020-08-06 01:37:00 93.895 kg [facility] [place] [facility] BMI 2020-08-06 01:37:00 32.42 kg/m2 [facility] [place] [facility] Systolic blood 2020-07-23 01:00:00 140 mm[Hg] Univer sity of pressure [place] [facility] Diastolic blood 2020-07-23 01:00:00 80 mm[Hg] Unive rsity of pressure [place] [facility] Heart rate 2020-07-23 01:00:00 63 /min [facility]i ty [facility] [place] [facility] Respiratory rate 2020-07-23 01:00:00 18 /min Univ ersity [facility] [place] [facility] Oxygen saturation in 2020-07-23 01:00:00 97 /min University of Arterial blood by [facility] Pulse oximetry Branch Body temperature 2020-07-22 22:18:00 37.11 Stella Univ ersity [facility] [place] [facility] Body weight 2020-07-22 22:18:00 97.07 kg [facility]i ty [facility] [place] [facility] BMI 2020-07-22 22:18:00 33.52 kg/m2 [facility] [place] [facility] Systolic blood 2020-07-23 01:00:00 140 mm[Hg] Univer sity of pressure [place] [facility] Diastolic blood 2020-07-23 01:00:00 80 mm[Hg] Unive rsity of pressure [place] [facility] Heart rate 2020-07-23 01:00:00 63 /min [facility]i ty [facility] [place] [facility] Respiratory rate 2020-07-23 01:00:00 18 /min Univ ersity [facility] [place] [facility] Oxygen saturation in 2020-07-23 01:00:00 97 /min University of Arterial blood by [facility] Pulse oximetry Branch Body temperature 2020-07-22 22:18:00 37.11 Stella Univ ersity [facility] [place] [facility] Body weight 2020-07-22 22:18:00 97.07 kg [facility] [place] [facility] BMI 2020-07-22 22:18:00 33.52 kg/m2 [facility] [place] [facility] Systolic blood 2020-05-20 00:00:00 156 mm[Hg] Univer sity of pressure [place] [facility] Diastolic blood 2020-05-20 00:00:00 94 mm[Hg] Unive rsity of pressure [place] [facility] Heart rate 2020-05-20 00:00:00 90 /min [facility]i ty [facility] [place] [facility] Respiratory rate 2020-05-20 00:00:00 18 /min Univ ersity [facility] [place] [facility] Oxygen saturation in 2020-05-20 00:00:00 96 /min [facility] of Arterial blood by [place] [facility] Pulse oximetry Branch Body temperature 2020-05-19 21:37:00 37.11 Stella Univ ersity [facility] [place] [facility] Body height 2020-05-19 21:37:00 170.2 cm [facility] [place] [facility] Body weight 2020-05-19 21:37:00 93.441 kg [facility] [place] [facility] BMI 2020-05-19 21:37:00 32.26 kg/m2 [facility] [place] [facility] Systolic blood 2020-05-20 00:00:00 156 mm[Hg] Univer sity of pressure [place] [facility] Diastolic blood 2020-05-20 00:00:00 94 mm[Hg] Unive rsity of pressure [place] [facility] Heart rate 2020-05-20 00:00:00 90 /min [facility]i ty [facility] [place] [facility] Respiratory rate 2020-05-20 00:00:00 18 /min Univ ersity [facility] [place] [facility] Oxygen saturation in 2020-05-20 00:00:00 96 /min [facility] of Arterial blood by [place] [facility] Pulse oximetry Branch Body temperature 2020-05-19 21:37:00 37.11 Stella Univ [facility]ity [facility] [place] [facility] Body height 2020-05-19 21:37:00 170.2 cm [facility] [place] [facility] Body weight 2020-05-19 21:37:00 93.441 kg [facility] [place] [facility] BMI 2020-05-19 21:37:00 32.26 kg/m2 [facility] [place] [facility] Systolic blood 2019-08-22 07:00:00 165 mm[Hg] Univer sity of pressure [place] [facility] Diastolic blood 2019-08-22 07:00:00 127 mm[Hg] Unive rsity of pressure [place] [facility] Heart rate 2019-08-22 07:00:00 99 /min [facility]i [facility] [place] [facility] Respiratory rate 2019-08-22 07:00:00 14 /min Univ ersity [facility] [place] [facility] Oxygen saturation in 2019-08-22 07:00:00 97 /min University of Arterial blood by [facility] Pulse oximetry Branch Body temperature 2019-08-22 04:58:00 37.5 Stella Univ [facility] [place] [facility] Body weight 2019-08-22 04:58:00 92.987 kg [facility] [place] [facility] BMI 2019-08-22 04:58:00 32.11 kg/m2 [facility] [place] [facility] Systolic blood 2019-08-22 07:00:00 165 mm[Hg] Univer sity of pressure [place] [facility] Diastolic blood 2019-08-22 07:00:00 127 mm[Hg] Unive rsity of pressure [place] [facility] Heart rate 2019-08-22 07:00:00 99 /min [facility] [place] [facility] Respiratory rate 2019-08-22 07:00:00 14 /min Univ [facility]ity [facility] [place] [facility] Oxygen saturation in 2019-08-22 07:00:00 97 /min University of Arterial blood by [facility] Pulse oximetry Branch Body temperature 2019-08-22 04:58:00 37.5 Stella Univ [facility] [place] [facility] Body weight 2019-08-22 04:58:00 92.987 kg [facility] [place] [facility] BMI 2019-08-22 04:58:00 32.11 kg/m2 [facility] [place] [facility] Systolic blood 2019-08-04 19:56:00 133 mm[Hg] Univer sity of pressure [place] [facility] Diastolic blood 2019-08-04 19:56:00 91 mm[Hg] Unive rsity of pressure [place] [facility] Heart rate 2019-08-04 19:47:00 107 /min [facility] [place] [facility] Body temperature 2019-08-04 19:47:00 37.06 Stella Univ [facility] [place] [facility] Respiratory rate 2019-08-04 19:47:00 20 /min Univ ersity of [facility] Body height 2019-08-04 19:47:00 170.2 cm [facility] Body weight 2019-08-04 19:47:00 97.977 kg [facility] BMI 2019-08-04 19:47:00 33.83 kg/m2 [facility] Oxygen saturation in 2019-08-04 19:47:00 100 /min [facility] blood by [facility] Pulse oximetry Branch Procedures Procedure Date / Time Performing Clinician Source Performed XR CHEST 2 VW 2021-03-30 00:42:57 Krys Jewell [facility] [place] [facility] CONSENT/REFUSAL FOR 2021-03-29 23:21:19 Doctor Unassflor, [facility] DIAGNOSIS AND TREATMENT [place] [facility] CT ABDOMEN PELVIS W 2020-11-02 22:44:07 Amari Maza [facility] Branch MAGNESIUM 2020-11-02 22:10:00 Amari Maza [facility] TROPONIN I 2020-11-02 22:10:00 Amari Maza [facility] COMP. METABOLIC PANEL 2020-11-02 22:10:00 Amari Maza [facility] ([id number]) [facility] CBC WITH DIFF 2020-11-02 22:10:00 Amari Maza [facility] URINALYSIS 2020-11-02 22:10:00 Amari Maza [facility] NOTICE OF PRIVACY 2020-11-02 18:42:52 Doctor Shy, [facility] PRACTICES [place] [facility] [place] CONSENT/REFUSAL FOR 2020-11-02 18:39:42 Doctor Shy, [facility] DIAGNOSIS AND TREATMENT [place] [facility] CT ABDOMEN PELVIS W 2020-08-06 03:33:07 Mayte Lamb [facility] CONTRAST [facility] Branch COVID-19 (ID NOW RAPID 2020-08-06 02:57:00 [facility] Branch LIPASE 2020-08-06 02:22:00 Mayte Lamb [facility] COMP. METABOLIC PANEL 2020-08-06 02:22:00 Mayte Lamb Un [facility] ([id number]) Medical Branch CBC WITH DIFF 2020-08-06 02:22:00 Mayte Lamb [facility] LACTIC ACID WHOLE BLOOD 2020-08-06 02:22:00 Mayte Lamb [facility] URINALYSIS 2020-08-06 01:42:00 Jose Cruz Prakash [facility] CONSENT/REFUSAL FOR 2020-08-06 01:26:13 Doctor Unassigned, [facility] DIAGNOSIS AND TREATMENT [place] [facility] COVID-19 (ID NOW RAPID 2020-07-23 00:39:00 Mayte Lamb [facility] TESTING) [facility] CT CERVICAL SPINE WO 2020-07-22 23:06:25 Mayte Lamb [facility] CONTRAST [facility] CT HEAD WO CONTRAST 2020-07-22 23:06:25 Mayte Lamb [facility] XR CHEST 1 VW 2020-07-22 22:53:06 Mayte Lamb [facility] LIPASE 2020-07-22 22:51:00 Mayte Lamb [facility] TROPONIN I 2020-07-22 22:51:00 Mayte Lamb [facility] FREE T4 2020-07-22 22:51:00 Mayte Lamb [facility] THYROID STIMULATING 2020-07-22 22:51:00 Mayte Lamb [facility] HORMONE [facility] HEPATIC FUNCTION PANEL 2020-07-22 22:51:00 Mayte Lamb [facility] ([id number]) (ALB,T.PRO,BILI [facility] Branch T,BU/BC,ALT,AST,ALK PHOS) BASIC METABOLIC PANEL 2020-07-22 22:51:00 Mayte Lamb [facility] (NA, K, CL, CO2, GLUCOSE, Medica l Branch BUN, CREATININE, CA) CBC WITH DIFF 2020-07-22 22:51:00 Mayte Lamb [facility] URINALYSIS 2020-07-22 22:51:00 Mayte Lamb [facility] N-TERMINAL PRO-BNP 2020-07-22 22:51:00 Mayte Lamb [facility] POCT GLUCOSE (AUTOMATED) 2020-07-22 22:17:00 Doctor Shy, [facility] [place] CONSENT/REFUSAL FOR 2020-07-22 22:08:56 Doctor Shy [facility] DIAGNOSIS AND TREATMENT [facility] MEDICATION CORRESPONDENCE 2020-06-17 05:01:00 Doctor Shy [facility] LIPASE 2020-05-19 22:05:00 Pastora Esparza [facility] COMP. METABOLIC PANEL 2020-05-19 22:05:00 Pastora Esparza [facility] ([id number]) [facility] [place] CBC WITH DIFF 2020-05-19 22:05:00 Pastora Esparza [facility] URINALYSIS 2020-05-19 22:05:00 [facility] NOTICE OF PRIVACY 2020-05-19 21:27:02 Doctor Shy, [facility] PRACTICES [place] [facility] [place] CONSENT/REFUSAL FOR 2020-05-19 21:26:36 Doctor Shy [facility] DIAGNOSIS AND TREATMENT [facility] POCT GLUCOSE (AUTOMATED) 2019-08-22 07:05:00 [facility] 2019-08-22 05:18:00 Jose Cruz Prakash [facility] COMP. METABOLIC PANEL 2019-08-22 05:18:00 Jose Cruz Prakash [facility] ([id number]) [facility] CBC WITH DIFFERENTIAL 2019-08-22 05:18:00 Jose Cruz Prakash [facility] URINALYSIS 2019-08-22 05:05:00 Jose Cruz Prakash [facility] COVID-19 (ID NOW RAPID 2019-08-22 05:04:00 Jose Cruz Prakash [facility] TESTING) Medical Branch ASSIGNMENT OF BENEFITS 2019-08-22 04:32:23 Doctor Unassigned, [facility] [place] [facility] NOTICE OF PRIVACY 2019-08-22 04:32:08 Doctor Unassigned, [facility] PRACTICES [place] [facility] CONSENT/REFUSAL FOR 2019-08-22 04:31:55 Doctor Unassigned, [facility] DIAGNOSIS AND TREATMENT [place] [facility] Encounters Start End Encounter Admission Attending Care Care Encounter Source Date/Time Date/Time Type Type Clinicians Facility Department ID 2021-01-28 Emergency [facility] [id number] Univers 13:42:31 ity of [facility] 2021-01-27 Emergency [facility] [id number] Univers 17:59:52 ity of [facility] 2021-01-27 Emergency [facility] [id number] Univers 15:07:41 ity of [facility] 2021-01-27 Emergency [facility] [id number] Univers 00:15:52 ity of [facility] 2021-01-26 Emergency [facility] [id number] Univers 10:55:23 ity of [facility] 2021-01-24 Emergency [facility] [id number] Univers 22:08:18 ity of [facility] 2021-03-29 2021-03-29 Emergency X JEWELL, [facility] ERT [id number] Univers 17:36:00 21:51:00 KRYS ity of [facility] 2021-03-29 2021-03-29 [facility] [id number] Univers 17:36:00 21:51:00 Krys FITZPATRICK [id number] i ty of [place] [id number] [facility] [id number] [address] 2020-11-02 2020-11-02 Emergency Amari Maza [facility] [id number] Univers 13:53:00 20:06:00 Cristina Fitzpatrick [id number] i ty of [place] [id number] [facility] [id number] [address] 2020-11-02 2020-11-02 Emergency Meño, K [facility] [id number] 13:53:00 20:06:00 Cristina [place] [id number] [place] [id number] [place] [id number] 2020-10-20 2020-10-22 [facility] [facility] 11:58:00 18:52:00 DOUG Sanchez [facility] 2020-08-05 2020-08-05 [facility] [id number] [facility] 20:44:00 23:55:00 Haileeo Isaac Fitzpatrick [id number] ity of [place] [id number] [facility] [id number] [address] 2020-08-05 2020-08-05 Emergency [facility] [id number] 20:44:00 23:55:00 Mayte Fitzpatrick 350.1.13.10 [place] 4.2.7.2.686 [place] [id number] 4 2020-07-22 2020-07-22 Emergency [facility] 1.2.840.114 [id number] [facility] 17:17:00 20:14:00 Mayte Fitzpatrick 350.1.13.10 ity of [place] 4.2.7.2.686 [facility] [phone] [place] [address] [address] 2020-07-22 2020-07-22 [facility] 1.2.840.114 [id number] 17:17:00 20:14:00 Haileeo Isaac Fitzpatrick 350.1.13.10 [place] 4.2.7.2.686 [place] [id number] 084 2020-06-17 2020-06-17 Orders Doctor IQRA 1.2.840.114 [id number] Univers 00:00:00 00:00:00 Only Unassigned, GREGORY 350.1.13.10 ity of [place] [facility] 4.2.7.2.686 Roberto as [id number] [facility] [address] Branch 2020-06-17 2020-06-17 Orders Doctor IQRA 1.2.840.114 [id number] 00:00:00 00:00:00 Only Unassigned, GREGORY 350.1.13.10 [place] [facility] 4.2.7.2.686 [id number] 009 2020-05-19 2020-05-19 Emergency [facility] 1.2.875.936 [id number] [facility] 15:45:00 18:07:00 Pastora Fitzpatrick 350.1.13.10 i [place] of [place] 4[place]7.2.[place] [id number] [facility] 084 Branch 2020-05-19 2020-05-19 Emergency [facility] 1.2.284.434 [id number] 15:45:00 18:07:00 Pastora Fitzpatrick 350.1.13.10 [place] 4.2.7.2.686 [place] [phone] [facility] 2019-08-21 2019-08-22 Emergency [facility] 1.2.465.583 [id number] Univers 23:48:04 02:26:00 Jose Cruz Fitzpatrick 350.1.13.10 ity of [place] 4.2.7.2.686 [facility] [id number] [place] [address] [address] 2019-08-21 2019-08-22 Emergency [facility] 1.2.611.894 [id number] 23:48:04 02:26:00 Jose Cruz Fitzpatrick 350.1.13.10 [place] 4.2.7.2.686 [place] [phone] [facility] 2019-08-06 2019-08-06 Telephone IQRA Barragan 1.2.840.114 [id number] Univers 00:00:00 00:00:00 Apoorva GREGORY 350.1.13.10 it y of [facility] 4.2.7.2.686 Roberto as [id number] [facility] 0[address] 2019-08-06 2019-08-06 Telephone [facility] Box 1.2.251.481 [id number] Univers 00:00:00 00:00:00 Jinny GREGORY 350.1.13.10 it y of HOSPITAL 4.2.7.2.686 Roberto as [id number] [address] 2019-08-06 2019-08-06 Telephone IQRA Barragan 1.2.840.114 [id number] 00:00:00 00:00:00 Apoorva JENKINS 350.1.13.10 HOSPITAL 4.2.7.2.686 [id number] 019 2019-08-06 2019-08-06 Telephone IQRA Box 1.2.011.804 [id number] 00:00:00 00:00:00 Jinny GREGORY 350.1.13.10 HOSPITAL 4.2.7.2.686 [id number] 019 2019-08-05 2019-08-05 Telephone [facility] 1.2.840.114 [id number] [facility] 00:00:00 00:00:00 [facility] 350.1.13.10 it y of [place] 4.2.7.2.686 Roberto as Professio [phone] [place] [address] Office Building [facility] 2019-08-05 2019-08-05 Telephone IQRA Box 1.2.512.860 [id number] [facility] 00:00:00 00:00:00 Jinny GREGORY 350.1.13.10 it y of HOSPITAL 4.2.7.2.686 Roberto as [id number] [address] 2019-08-05 2019-08-05 Telephone [facility] Box 1.2.964.921 [id number] 5231 00:00:00 00:00:00 Jinny GREGORY 350.1.13.10 HOSPITAL 4.2.7.2.686 [id number] 019 2019-08-04 2019-08-04 Urgent Pob1, Acute Care Clinic [facility] 1. 2.840.114 [id number] [facility] 14:42:35 15:59:50 [facility] 350.1.13.10 ity of [place] 4.2.7.2.686 Roberto as Professio [phone] [place] [address] Office Building One 2019-08-04 2019-08-04 Outpatient R [facility] [id number] Univers 15:00:00 15:00:00 [facility] 2019-08-04 2019-08-04 Outpatient R [facility] [id number] -[id number] Univers 09:40:00 09:40:00 [facility] Results Test Test Test Results Result Source Description Time Comments Comments CT ABDOMEN 1. ?No bowel University of PELVIS W [...] No suspicious focal osseous lesions are seen. [facility], Radiant Results Inft User - 11/02/2020 6:23 [...] 0.000 ng/mL See_Comment [Au tomated message] The 3835932263) system which [employer] nerated this result tra nsmitted reference range [...] biotin. Lab Interpretation Normal (test code = 11712-6) [facility] 22:39:02 Test Item Value Reference Range Interpretation Comments APPEARANCE (test code = Clear Clear 7836344518) COLOR (test code = Yellow Yellow 4467713591) PH (test code = 4.8-8.0 6399199905) SP GRAVITY (test code = 1.003-1.030 0043903788) GLU U QUAL (test code = 50 mg/dL Normal A 0475634046) BLOOD (test code = 3+ Negative A 1875345988) KETONES (test code = Negative Negative 2413486624) PROTEIN (test code = Negative Negative 2887-8) UROBILIN (test code = Normal Normal 4485513795) BILIRUBIN (test code = Negative Negative 6793839703) NITRITE (test code = Negative Negative 8630995464) LEUK PARTH (test code = 25/uL Negative A 4528666869) RBC/HPF (test code = See_Comment [Autom ated message] 9707556035) The system [employer] generated this result transmitted ref erence range: 0 - 3 HP F. The reference range was not used to int erpret this result as normal/abnormal . WBC/HPF (test code = See_Comment [Autom ated message] 6030986891) The system [employer] generated this result transmitted ref erence range: 0 - 5 HP F. The reference range was not used to int erpret this result as normal/abnormal . BACTERIA (test code = Negative Negative 9716812278) MUCOUS (test code = Slight Negative LPF A 0044888761) SQ EPITH (test code = HPF 7716401532) Lab Interpretation (test Abnormal code = 56657-0) [facility]2021-[facility]-06 22:38:26 Test Item Value Reference Range Interpretation Comments MAGNESIUM (test code = 0112424702) 1.4 mg/dL 1.7-2.4 L Lab Interpretation (test code = Abnormal 28966-6) [facility]. METABOLIC PANEL (74537)2020-11-02 22:38:11 Test Item Value Reference Range Interpretation Comments NA (test code = 139 mmol/L 135-145 7760294278) K (test code = 3.7 mmol/L 3.5-5.0 9443466397) CL (test code = 102 mmol/L 98-108 9139434449) CO2 TOTAL (test code = 24 mmol/L 23-31 6775169874) AGAP (test code = 2-16 3436694841) BUN (test code = 16 mg/dL 7-23 0284647872) GLUCOSE (test code = 183 mg/dL 70-110 H 1113764972) CREATININE (test code = 0.64 mg/dL 0.50-1.04 1621193907) TOTAL BILI (test code = 0.2 mg/dL 0.1-1.0 1777298712) CALCIUM (test code = 10.4 mg/dL 8.6-10.6 2643646344) T PROTEIN (test code = 8.5 g/dL 6.3-8.2 H 3760202244) ALBUMIN (test code = 4.8 g/dL 3.5-5.0 5423131917) ALK PHOS (test code = 103 U/L 34-122 2807805154) ALTv (test code = 20 U/L 5-35 1742-6) AST(SGOT) (test code = 21 U/L 13-40 1349362998) eGFR (test code = mL/min/1.73m2 5313069010) FALLON (test code = FALLON) Association of [...] tests). Lab Interpretation Abnormal (test code = 22710-5) [facility] WITH [id number] 22:33:08 Test Item Value Reference Range Interpretation Comments WBC (test code = See_Comment [Automated 0090-2) message] The sy stem which generated this [...] (test code = 38.5 fL 39.0-49.9 L 01436-3) RDW-CV (test code = 13.3 % 12.0-15.5 788-0) PLT (test code = See_Comment [Automated 777-3) message] The sy stem which generated this result transmitted reference range : 166 - 358 10*3/ ?L. The reference r farrah was not used to interpret this result as normal/abnormal . MPV (test code = 10.5 fL 9.5-12.9 90046-5) NRBC/100 WBC (test See_Comment [Automat ed code = 1741316994) message] The system which generated this result transmitted reference range : 0.0 - 10.0 /100 WBCs. The refer ence range was not u sed to interpret th is result as normal/abnormal . NRBC x10^3 (test code <0.01 See_Comment [Auto mated = 7994396537) message] The s ystem which generated this result transmitted reference range : 10*3/?L. The reference range was not used to interpret this result as normal/abnormal . GRAN MAT (NEUT) % 52.3 % (test code = 770-8) IMM GRAN % (test code 0.40 % = 3433994842) LYMPH % (test code = 37.8 % 736-9) MONO % (test code = 7.3 % 5905-5) EOS % (test code = 1.7 % 713-8) BASO % (test code = 0.5 % 706-2) GRAN MAT x10^3(ANC) 5.25 10*3/uL 1.88-7.09 (test code = 3180042738) IMM GRAN x10^3 (test 0.04 10*3/uL 0.00-0.06 code = 8733083805) LYMPH x10^3 (test code 3.79 10*3/uL 1.32-3.29 H = 731-0) MONO x10^3 (test code 0.73 10*3/uL 0.33-0.92 = 742-7) EOS x10^3 (test code = 0.17 10*3/uL 0.03-0.39 711-2) BASO x10^3 (test code 0.05 10*3/uL 0.01-0.07 = 704-7) Lab Interpretation Abnormal (test code = 48733-6) [facility] (ID NOW RAPID TESTING)2020-08-06 03:39:43 Test Item Value Reference Range Interpretation Comments SARS-CoV-2 Rapid ID NOW Not Detected Not Detected (test code = 55241-7) FALLON (test code = FALLON) ID NOW COVID-19 Assay is an isothermal nucleic acid amplification test intended for the qualitative detection of nucleic acid from SARS-CoV-2 viral RNA in nasopharyngeal (RECREATION ESTABLISHMENT MANAGER) specimens. It is used under Emergency Use [...] indicated. Lab Interpretation Normal (test code = 75730-3) [facility]. METABOLIC PANEL (99075)2020-08-06 03:11:02 Test Item Value Reference Range Interpretation Comments NA (test code = 138 mmol/L 135-145 7325938088) K (test code = 4.6 mmol/L 3.5-5.0 5766304944) CL (test code = 102 mmol/L 98-108 2588296753) CO2 TOTAL (test code = 23 mmol/L 23-31 9880477734) AGAP (test code = 2-16 7926371838) BUN (test code = 17 mg/dL 7-23 2767330242) GLUCOSE (test code = 477 mg/dL 70-110 HH 4839775940) CREATININE (test code = 0.70 mg/dL 0.50-1.04 2382785993) TOTAL BILI (test code = 0.6 mg/dL 0.1-1.8 8475444582) CALCIUM (test code = 9.4 mg/dL 8.6-10.6 0845206134) T PROTEIN (test code = 7.4 g/dL 6.3-8.2 1071974821) ALBUMIN (test code = 4.4 g/dL 3.5-5.0 7831262102) ALK PHOS (test code = 113 U/L 34-122 0502460080) ALTv (test code = 22 U/L 5-35 1742-6) AST(SGOT) (test code = 35 U/L 13-40 5306588034) eGFR (test code = mL/min/1.73m2 0431517530) FALLON (test code = FALLON) Association of [...] tests). Lab Interpretation Abnormal (test code = 73159-1) [facility] CampusLipase [id number] 03:07:41 Test Item Value Reference Range Interpretation Comments LIPASE (test code = 6380638677) 169 U/L 0-220 Lab Interpretation (test code = Normal 41250-7) [facility]CB with [id number] 02:40:54 Test Item Value Reference Range Interpretation Comments WBC (test code = See_Comment [Automated 4769-2) message] The sy stem which generated this result transmitted reference range : 4.30 - 11.10 10*3/?L. The reference range was not used to interpret this result as normal/abnormal . RBC (test code = See_Comment H [Automated 442-7) message] The sy stem which generated this [...] (test code = 38.2 fL 39.0-49.9 L 65910-1) RDW-CV (test code = 13.5 % 12.0-15.5 788-0) PLT (test code = See_Comment [Automated 777-3) message] The sy stem which generated this result transmitted reference range : 166 - 358 10*3/ ?L. The reference r farrah was not used to interpret this result as normal/abnormal . MPV (test code = 10.7 fL 9.5-12.9 76186-8) NRBC/100 WBC (test See_Comment [Automat ed code = 2175760843) message] The system which generated this result transmitted reference range : 0.0 - 10.0 /100 WBCs. The refer ence range was not u sed to interpret th is result as normal/abnormal . NRBC x10^3 (test code <0.01 See_Comment [Auto mated = 6743535181) message] The s ystem which generated this result transmitted reference range : 10*3/?L. The reference range was not used to interpret this result as normal/abnormal . GRAN MAT (NEUT) % 62.1 % (test code = 770-8) IMM GRAN % (test code 0.70 % = 1379434118) LYMPH % (test code = 29.4 % 736-9) MONO % (test code = 5.2 % 5905-5) EOS % (test code = 1.9 % 713-8) BASO % (test code = 0.7 % 706-2) GRAN MAT x10^3(ANC) 6.64 10*3/uL 1.88-7.09 (test code = 7438313566) IMM GRAN x10^3 (test 0.07 10*3/uL 0.00-0.06 H code = 8239829661) LYMPH x10^3 (test code 3.14 10*3/uL 1.32-3.29 = 731-0) MONO x10^3 (test code 0.56 10*3/uL 0.33-0.92 = 742-7) EOS x10^3 (test code = 0.20 10*3/uL 0.03-0.39 711-2) BASO x10^3 (test code 0.07 10*3/uL 0.01-0.07 = 704-7) Lab Interpretation Abnormal (test code = 25081-7) [facility] CampusLactic Acid Whole [id number] 02:27:55 Test Item Value Reference Range Interpretation Comments LACTIC ACID (test code = 2.34 mmol/L 0.50-2.20 H 8198874031) Lab Interpretation (test code = Abnormal 19298-7) [facility]IS2021-05-10 02:03:28 Test Item Value Reference Range Interpretation Comments APPEARANCE (test code = Cloudy Clear A 9140592867) COLOR (test code = Yellow Yellow 9041807343) PH (test code = 4.8-8.0 3655454617) SP GRAVITY (test code = 1.003-1.030 H 2326261137) GLU U QUAL (test code = 500 mg/dL Normal A 1633446497) BLOOD (test code = Negative Negative 6377204514) KETONES (test code = Negative Negative 1398760390) PROTEIN (test code = Negative Negative 2887-8) UROBILIN (test code = Normal Normal 9256049188) BILIRUBIN (test code = Negative Negative 0698961849) NITRITE (test code = Negative Negative 2600287785) LEUK PARTH (test code = 250/uL Negative A 5324823481) RBC/HPF (test code = See_Comment [Autom ated message] 1955048495) The system GANTEC generated this result transmit jeny reference range : 0 - 3 HPF. The refe rence range was not u sed to interpret th is result as normal/abnormal . WBC/HPF (test code = See_Comment H [Autom ated message] 1166516676) The system GANT[employer] generated this result transmit jeny reference range : 0 - 5 HPF. The refe rence range was not u sed to interpret th is result as normal/abnormal . BACTERIA (test code = Few Negative A 1154952556) MUCOUS (test code = Slight Negative LPF A 2833573372) SQ EPITH (test code = HPF 9327663015) Lab Interpretation (test Abnormal code = 05361-3) [facility] (ID NOW RAPID TESTING)2020-07-23 01:04:25 Test Item Value Reference Range Interpretation Comments SARS-CoV-2 Rapid ID NOW Not Detected Not Detected (test code = 83192-0) FALLON (test code = FALLON) ID NOW COVID-19 Assay is an isothermal nucleic acid amplification test intended for the qualitative detection of nucleic acid from SARS-CoV-2 viral RNA in nasopharyngeal (RECREATION ESTABLISHMENT MANAGER) specimens. It is used under Emergency Use [...] indicated. Lab Interpretation Normal (test code = 33050-0) [facility] CampusTHYROID STIMULATING [id number] 23:54:39 Test Item Value Reference Range Interpretation Comments TSH (test code = See_Comment [Automated message] 0674375085) The system [employer] generated this result transmitted ref erence range: 0.45 - 4 .70 mIU/L. The refe rence range was not u sed to interpret this result as normal/abnor mal. Lab Interpretation (test Normal code = 20789-2) [facility] CampusFREE [id number] 23:43:00 Test Item Value Reference Range Interpretation Comments FREE T4 (test code = See_Comment [Autom ated message] 0130264746) The system [employer] generated this result transmitted ref erence range: 0.78 - 2 .20 ng/dL:. The ref erence range was not u sed to interpret this result as normal/abnor mal. Lab Interpretation (test Normal code = 79388-3) [facility] Metabolic Panel (NA, K, CL, CO2, GLUCOSE, BUN, CREATININE, CA)2020-07-22 23:41:03 Test Item Value Reference Range Interpretation Comments NA (test code = 136 mmol/L 135-145 5888547386) K (test code = 4.0 mmol/L 3.5-5.0 6776024059) CL (test code = 97 mmol/L 98-108 L 1920032103) CO2 TOTAL (test code = 30 mmol/L 23-31 0636504127) AGAP (test code = 2-16 3433758767) BUN (test code = 10 mg/dL 7-23 4266605426) GLUCOSE (test code = 483 mg/dL 70-110 HH 7878886781) CREATININE (test code = 0.64 mg/dL 0.50-1.04 2068948130) CALCIUM (test code = 9.5 mg/dL 8.6-10.6 4732177428) eGFR (test code = mL/min/1.73m2 6160563764) FALLON (test code = FALLON) Association of [...] tests). Lab Interpretation Abnormal (test code = 01149-8) [facility] CampusHepatic Function Panel (ALB, T.PRO, BILI T, BU/BC, ALT, AST, ALK PHOS)2020-07-22 23:40:08 Test Item Value Reference Range Interpretation Comments TOTAL BILI (test code = 6240739232) 0.3 mg/dL 0.1-1.1 BILI UNCON (test code = 1941816650) 0.2 mg/dL 0.1-1.1 BILI CONJ (test code = 2104507434) 0.0 mg/dL 0.0-0.3 T PROTEIN (test code = 2626089304) 6.4 g/dL 6.3-8.2 ALBUMIN (test code = 7423732353) 3.9 g/dL 3.5-5.0 ALK PHOS (test code = 0810975306) 125 U/L 34-122 H ALTv (test code = 1742-6) 21 U/L 5-35 AST(SGOT) (test code = 6947460039) 19 U/L 13-40 Lab Interpretation (test code = Abnormal 31753-2) [facility] CampusN-TERMINAL [id number] 23:40:08 Test Item Value Reference Range Interpretation Comments NT-proBNP (test code 73 pg/mL See_Comment [Autom ated = 1327691399) message] The system which generated this result transmitted reference range : <=125. The reference range was not used to interpret this result as normal/abnormal . FALLON (test code = FALLON) Biotin has been reported to cause a negative bias, interpret results relative to patient's use of biotin. Lab Interpretation Normal (test code = 41577-5) [facility] CampusTroponin [id number] 23:40:08 Test Item Value Reference Range Interpretation Comments TROPONIN I (test 0.001 ng/mL See_Comment [Automated code = 8230535651) message] The system which generated this result [...] ? Lab Interpretation Normal (test code = 92527-4) [facility] CampusLIPASE2021-04-25 23:22:59 Test Item Value Reference Range Interpretation Comments LIPASE (test code = 5772551604) 141 U/L 0-220 Lab Interpretation (test code = Normal 69597-9) [facility] CampusUrinalysis2021-04-25 23:20:48 Test Item Value Reference Range Interpretation Comments APPEARANCE (test code = Clear Clear 3113978278) COLOR (test code = Straw Yellow A 6879368152) PH (test code = 4.8-8.0 0854095838) SP GRAVITY (test code = 1.003-1.030 4386227238) GLU U QUAL (test code = 500 mg/dL Normal A 4488062035) BLOOD (test code = Negative Negative 1459298399) KETONES (test code = Negative Negative 5028680946) PROTEIN (test code = Negative Negative 2887-8) UROBILIN (test code = Normal Normal 7417562109) BILIRUBIN (test code = Negative Negative 9298158613) NITRITE (test code = Negative Negative 5944016746) LEUK PARTH (test code = Negative Negative 1417587977) RBC/HPF (test code = See_Comment [Autom ated message] 7903395695) The system [employer] generated this result transmit jeny reference range : 0 - 3 HPF. The refe rence range was not u sed to interpret th is result as normal/abnormal . WBC/HPF (test code = See_Comment [Autom ated message] 7418469381) The system [employer] h generated this result transmit jeny reference range : 0 - 5 HPF. The refe rence range was not u sed to interpret th is result as normal/abnormal . BACTERIA (test code = Negative Negative 3161740568) SQ EPITH (test code = HPF 4296946996) Lab Interpretation (test Abnormal code = 91518-3) [facility] with [id number] 23:01:38 Test Item Value Reference Range Interpretation [...] (test code = 37.3 fL 39.0-49.9 L 54742-5) RDW-CV (test code = 12.8 % 12.0-15.5 788-0) PLT (test code = See_Comment [Automated 777-3) message] The sy stem which generated this result transmitted reference range : 166 - 358 10*3/ ?L. The reference r farrah was not used to interpret this result as normal/abnormal . MPV (test code = 10.8 fL 9.5-12.9 50956-1) NRBC/100 WBC (test See_Comment [Automat ed code = 4837683944) message] The system which generated this result transmitted reference range : 0.0 - 10.0 /100 WBCs. The refer ence range was not u sed to interpret th is result as normal/abnormal . NRBC x10^3 (test code <0.01 See_Comment [Auto mated = 2391878023) message] The s ystem which generated this result transmitted reference range : 10*3/?L. The reference range was not used to interpret this result as normal/abnormal . GRAN MAT (NEUT) % 55.0 % (test code = 770-8) IMM GRAN % (test code 0.30 % = 1619718914) LYMPH % (test code = 35.6 % 736-9) MONO % (test code = 7.2 % 5905-5) EOS % (test code = 1.4 % 713-8) BASO % (test code = 0.5 % 706-2) GRAN MAT x10^3(ANC) 3.20 10*3/uL 1.88-7.09 (test code = 6634486840) IMM GRAN x10^3 (test <0.03 0.00-0.06 code = 0245819958) LYMPH x10^3 (test code 2.07 10*3/uL 1.32-3.29 = 731-0) MONO x10^3 (test code 0.42 10*3/uL 0.33-0.92 = 742-7) EOS x10^3 (test code = 0.08 10*3/uL 0.03-0.39 711-2) BASO x10^3 (test code 0.03 10*3/uL 0.01-0.07 = 704-7) Lab Interpretation Abnormal (test code = 91923-5) [facility] GLUCOSE (AUTOMATED)2020-07-22 22:21:14 Test Item Value Reference Range Interpretation Comments POCT GLU (test code = 1385288330) 428 mg/dL 70-110 H Lab Interpretation (test code = Abnormal 60232-7) [facility]. METABOLIC PANEL (15471)2020-05-19 22:32:00 Test Item Value Reference Range Interpretation Comments NA (test code = 137 mmol/L 135-145 6578357566) K (test code = 4.0 mmol/L 3.5-5 1362814750) CL (test code = 102 mmol/L 98-108 9896734340) CO2 TOTAL (test code = 25 mmol/L 23-31 8375785344) AGAP (test code = 2-16 3360708038) BUN (test code = 11 mg/dL 7-23 1987551213) GLUCOSE (test code = 270 mg/dL 70-110 H 9369751980) CREATININE (test code = 0.51 mg/dL 0.5-1.04 2738336013) TOTAL BILI (test code = 0.5 mg/dL 0.1-1.9 7501580068) CALCIUM (test code = 9.0 mg/dL 8.6-10.6 6520533508) T PROTEIN (test code = 7.4 g/dL 6.3-8.2 5423032024) ALBUMIN (test code = 4.4 g/dL 3.5-5 6611522222) ALK PHOS (test code = 96 U/L 34-122 5551590548) ALTv (test code = 18 U/L 5-35 1742-6) AST(SGOT) (test code = 21 U/L 13-40 8897757841) eGFR Calculation mL/min/1.73m2 (Non-) (test code = 3012816236) eGFR Calculation mL/min/1.73m2 () (test code = 6951542216) FALLON (test code = FALLON) Association of [...] tests). Lab Interpretation Abnormal (test code = 96396-4) [facility]2021-02-20 22:32:00 Test Item Value Reference Range Interpretation Comments LIPASE (test code = 5496244360) 121 U/L 0-220 Lab Interpretation (test code = Normal 69756-8) [facility]2021-02-20 22:30:00 Test Item Value Reference Range Interpretation Comments APPEARANCE (test code = Hazy Clear A 8957535678) COLOR (test code = Yellow Yellow 6751249318) PH (test code = 4.8-8.0 6795120645) SP GRAVITY (test code = 1.003-1.030 6750262955) GLU U QUAL (test code = 500 mg/dL Normal A 0630027074) BLOOD (test code = 1+ Negative A 1700290981) KETONES (test code = Negative Negative 4849258533) PROTEIN (test code = 30 mg/dL Negative A 2887-8) UROBILIN (test code = Normal Normal 4855128166) BILIRUBIN (test code = Negative Negative 2639881147) NITRITE (test code = Negative Negative 1769290857) LEUK PARTH (test code = 75/uL Negative A 1533913150) RBC/HPF (test code = See_Comment H [Autom ated message] 6494220055) The system [employer] generated this result transmit jeny reference range : 0 - 3 HPF. The refe rence range was not u sed to interpret th is result as normal/abnormal . WBC/HPF (test code = See_Comment H [Autom ated message] 8941291264) The system [employer] generated this result transmit jeny reference range : 0 - 5 HPF. The refe rence range was not u sed to interpret th is result as normal/abnormal . BACTERIA (test code = Few Negative A 3183690850) MUCOUS (test code = Slight Negative LPF A 7738380035) SQ EPITH (test code = HPF 8575365514) Lab Interpretation (test Abnormal code = 48057-7) [facility] WITH [id number] 22:14:00 Test Item Value Reference Range Interpretation Comments WBC (test code = See_Comment [Automated 0090-2) message] The sy stem which generated this [...] (test code = 37.7 fL 39-49.9 L 83854-4) RDW-CV (test code = 13.0 % 12-15.5 788-0) PLT (test code = See_Comment [Automated 777-3) message] The sy stem which generated this result transmitted reference range : 166 - 358 10*3/ ?L. The reference r farrah was not used to interpret this result as normal/abnormal . MPV (test code = 11.1 fL 9.5-12.9 71355-2) NRBC/100 WBC (test See_Comment [Automat ed code = 1223152301) message] The system which generated this result transmitted reference range : 0.0 - 10.0 /100 WBCs. The refer ence range was not u sed to interpret th is result as normal/abnormal . NRBC x10^3 (test code <0.01 See_Comment [Auto mated = 8064572825) message] The s ystem which generated this result transmitted reference range : 10*3/?L. The reference range was not used to interpret this result as normal/abnormal . GRAN MAT (NEUT) % 49.2 % (test code = 770-8) IMM GRAN % (test code 0.70 % = 9140838683) LYMPH % (test code = 41.0 % 736-9) MONO % (test code = 7.0 % 5905-5) EOS % (test code = 1.5 % 713-8) BASO % (test code = 0.6 % 706-2) GRAN MAT x10^3(ANC) 4.07 10*3/uL 1.88-7.09 (test code = 8858445219) IMM GRAN x10^3 (test 0.06 10*3/uL 0-0.06 code = 9002535398) LYMPH x10^3 (test code 3.39 10*3/uL 1.32-3.29 H = 731-0) MONO x10^3 (test code 0.58 10*3/uL 0.33-0.92 = 742-7) EOS x10^3 (test code = 0.12 10*3/uL 0.03-0.39 711-2) BASO x10^3 (test code 0.05 10*3/uL 0.01-0.07 = 704-7) Lab Interpretation Abnormal (test code = 60534-8) [facility]2019-08-22 07:08:00 Test Item Value Reference Range Interpretation Comments POCT GLU (test code = 6180448365) 290 mg/dL 70-110 H Lab Interpretation (test code = Abnormal 38128-7) [facility]. METABOLIC PANEL (16541)2019-08-22 05:49:00 Test Item Value Reference Range Interpretation Comments NA (test code = 139 mmol/L 135-145 2403957620) K (test code = 4.5 mmol/L 3.5-5 3957452098) CL (test code = 103 mmol/L 98-108 4013566127) CO2 TOTAL (test code = 25 mmol/L 23-31 8293251624) AGAP (test code = 2-16 9982561319) BUN (test code = 7 mg/dL 7-23 2768762384) GLUCOSE (test code = 312 mg/dL 70-110 H 3935147543) CREATININE (test code = 0.55 mg/dL 0.5-1.04 6992862842) TOTAL BILI (test code = 0.7 mg/dL 0.1-1.1 7991976319) CALCIUM (test code = 10.0 mg/dL 8.6-10.6 0501584139) T PROTEIN (test code = 8.4 g/dL 6.3-8.2 H 6351007423) ALBUMIN (test code = 4.7 g/dL 3.5-5 1588508068) ALK PHOS (test code = 82 U/L 34-122 6968517581) ALTv (test code = 18 U/L 5-35 1742-6) AST(SGOT) (test code = 34 U/L 13-40 9761943237) eGFR Calculation mL/min/1.73m2 (Non-) (test code = 3430005845) eGFR Calculation mL/min/1.73m2 () (test code = 5165785833) FALLON (test code = FALLON) Association of [...] tests). Lab Interpretation Abnormal (test code = 68651-4) [facility]2020-05-25 05:49:00 Test Item Value Reference Range Interpretation Comments LIPASE (test code = 9292215884) 174 U/L 0-220 Lab Interpretation (test code = Normal 05847-6) [facility] WITH [id number] 05:35:00 Test Item Value Reference Range Interpretation Comments WBC (test code = See_Comment [Automated 1290-2) message] The sy stem which generated this result transmitted reference range : 4.30 - 11.10 10*3/?L. The reference range was not used to interpret this result as normal/abnormal . RBC (test code = See_Comment [Automated 116-8) message] The sy stem which generated this [...] (test code = 37.7 fL 39-49.9 L 07009-3) RDW-CV (test code = 13.3 % 12-15.5 788-0) PLT (test code = See_Comment [Automated 777-3) message] The sy stem which generated this result transmitted reference range : 166 - 358 10*3/ ?L. The reference r farrah was not used to interpret this result as normal/abnormal . MPV (test code = 11.2 fL 9.5-12.9 27496-4) NRBC/100 WBC (test See_Comment [Automat ed code = 9538183824) message] The system which generated this result transmitted reference range : 0.0 - 10.0 /100 WBCs. The refer ence range was not u sed to interpret th is result as normal/abnormal . NRBC x10^3 (test code <0.01 See_Comment [Auto mated = 1089638331) message] The s ystem which generated this result transmitted reference range : 10*3/?L. The reference range was not used to interpret this result as normal/abnormal . GRAN MAT (NEUT) % 57.4 % (test code = 770-8) IMM GRAN % (test code 0.50 % = 7730053271) LYMPH % (test code = 33.7 % 736-9) MONO % (test code = 6.6 % 5905-5) EOS % (test code = 1.3 % 713-8) BASO % (test code = 0.5 % 706-2) GRAN MAT x10^3(ANC) 6.27 10*3/uL 1.88-7.09 (test code = 1194727183) IMM GRAN x10^3 (test 0.05 10*3/uL 0-0.06 code = 9857250253) LYMPH x10^3 (test code 3.67 10*3/uL 1.32-3.29 H = 731-0) MONO x10^3 (test code 0.72 10*3/uL 0.33-0.92 = 742-7) EOS x10^3 (test code = 0.14 10*3/uL 0.03-0.39 711-2) BASO x10^3 (test code 0.05 10*3/uL 0.01-0.07 = 704-7) Lab Interpretation Abnormal (test code = 26467-2) [facility] (ID NOW RAPID TESTING)2019-08-22 05:28:00 Test Item Value Reference Range Interpretation Comments SARS-CoV-2 Rapid ID NOW Not Detected Not Detected (test code = 09392-8) FALLON (test code = FALLON) ID NOW COVID-19 Assay is an isothermal nucleic acid amplification test intended for the qualitative detection of nucleic acid from SARS-CoV-2 viral RNA in nasopharyngeal (RECREATION ESTABLISHMENT MANAGER) specimens. It is used under Emergency Use [...] indicated. Lab Interpretation Normal (test code = 24039-9) [facility]2020-05-25 05:20:00 Test Item Value Reference Range Interpretation Comments APPEARANCE (test code = Clear Clear 7538602387) COLOR (test code = Straw Yellow A 0856013052) PH (test code = 4.8-8.0 6026221726) SP GRAVITY (test code = 1.003-1.030 1808605183) GLU U QUAL (test code = 500 mg/dL Normal A 3142090369) BLOOD (test code = Negative Negative INTERFERE NCE FROM 8520152663) ASCORBIC ACID M AY CAUSE FALSE NEG ATIVE RESULT KETONES (test code = Negative Negative 0071295787) PROTEIN (test code = Negative Negative 2887-8) UROBILIN (test code = Normal Normal 0321939819) BILIRUBIN (test code = Negative Negative 4614029871) NITRITE (test code = Negative Negative 4760399520) LEUK PARTH (test code = Negative Negative 1192417676) RBC/HPF (test code = <1 See_Comment [Autom ated message] 1617562388) The system [employer] generated this result transmitted ref erence range: 0 - 3 HP F. The reference range was not used to int erpret this result as normal/abnormal . WBC/HPF (test code = See_Comment [Autom ated message] 0030288557) The system [employer] generated this result transmitted ref erence range: 0 - 5 HP F. The reference range was not used to int erpret this result as normal/abnormal . BACTERIA (test code = Few Negative A 3292769355) MUCOUS (test code = Slight Negative LPF A 7559401230) SQ EPITH (test code = HPF 0167845394) Lab Interpretation Abnormal (test code = 98278-4) [facility] [id number] 17:07:00 Test Item Value Reference Range Interpretation Comments POC-GLUCOSE METER 298 mg/dL 70-110 H TESTED AT [place] [address] ([facility]) (test code = [facility] [place] [address]) [address] POCT-GLUCOSE [id number] 12:11:00 Test Item Value Reference Range Interpretation Comments POC-GLUCOSE METER 331 mg/dL 70-110 H Notified R Devante SOUZA/TESTED ([facility]) (test code = AT [address] [address]) [facility] [address] POCT-GLUCOSE [id number] 10:55:00 Test Item Value Reference Range Interpretation Comments POC-GLUCOSE METER 365 mg/dL 70-110 H TESTED AT [place] [address] ([facility]) (test code = [facility] [place] [address]) [address] POCT-GLUCOSE [id number] 08:44:00 Test Item Value Reference Range Interpretation Comments POC-GLUCOSE METER 291 mg/dL 70-110 H TESTED AT [place] [address] ([facility]) (test code = [facility] [place] [address]) [address] LIPID [id number] 05:56:00 Test Item Value Reference Range Interpretation Comments TRIGLYCERIDES ([facility]) (test code = 279 mg/dL 540) CHOLESTEROL ([facility]) (test code = 119 mg/dL 631) HDL CHOLESTEROL ([facility]) (test code 22 mg/dL = 976) LDL CHOLESTEROL CALCULATED ([facility]) 41 mg/dL (test code = 633) Triglyceride Reference Range: Low Risk <150 Borderline 150-199 High Risk 200-499 Very High Risk >=500Cholesterol Reference Range: Low Risk <200 Borderline 200-239 High Risk >240HDL Cholesterol Reference Range: Low Risk >=60 High Risk <40LDL Cholesterol Reference Range: Optimal <100 Near Optimal 100-129 Borderline 130-159 High 160-189 Very High >=190POCT-GLUCOSE [id number] 21:50:00 Test Item Value Reference Range Interpretation Comments POC-GLUCOSE METER 318 mg/dL 70-110 H TESTED AT [place] [address] ([facility]) (test code = ELIZABETH Flynn [facility] 1538) [address] POCT-GLUCOSE [id number] 18:04:00 Test Item Value Reference Range Interpretation Comments POC-GLUCOSE METER 238 mg/dL 70-110 H TESTED AT [place] [address] ([facility]) (test code = ELIZABETH [place] [facility] 1538) [address] POCT-GLUCOSE [id number] 12:22:00 Test Item Value Reference Range Interpretation Comments POC-GLUCOSE METER 290 mg/dL 70-110 H TESTED AT [place] [address] ([facility]) (test code = ELIZABETH Flynn [facility] 1538) [address] POCT-GLUCOSE [id number] 09:20:00 Test Item Value Reference Range Interpretation Comments POC-GLUCOSE METER 293 mg/dL 70-110 H TESTED AT [place] [address] ([facility]) (test code = ELIZABETH Flynn [facility] 1538) [address] POCT-GLUCOSE [id number] 21:00:00 Test Item Value Reference Range Interpretation Comments POC-GLUCOSE METER 225 mg/dL 70-110 H TESTED AT [place] [address] ([facility]) (test code = ELIZABETH Flynn [facility] 1538) [address] CT, CAROTID, [id number] 18:01:00FINAL REPORT CT angiogram of the upper [...] Hall Verified Date/Time: 08/30/2017 18:01:31 Reading Location: [address] Neuro Reading Room , CTANGIO [id number] 18:01:00FINAL REPORT CT angiogram of the upper [...] [place] Verified Date/Time: 08/30/2017 18:01:31 Reading Location: [facility] C013V Neuro Reading Room -GLUCOSE [id number] 17:21:00 Test Item Value Reference Range Interpretation Comments POC-GLUCOSE METER 256 mg/dL 70-110 H TESTED AT [place] [address] [facility] (test code = [facility] 1538) [address] POCT-GLUCOSE [id number] 12:00:00 Test Item Value Reference Range Interpretation Comments POC-GLUCOSE METER 289 mg/dL 70-110 H TESTED AT [place] [address] ([facility] (test code = [facility] 1538) [address] BASIC METABOLIC [id number] 10:12:00 Test Item Value Reference Range Interpretation [...] NOT APPLICABLE FOR DIALYSIS PATIEN TS. POCT-GLUCOSE [id number] 08:42:00 Test Item Value Reference Range Interpretation Comments POC-GLUCOSE METER 259 mg/dL 70-110 H TESTED AT [place] [address] (BEAKER) (test code = [facility] 1538) [address] TROPONIN [id number] 06:14:00 Test Item Value Reference Range Interpretation [...] = 2801) RAD, CHEST, 1 VIEW, NON [id number] 04:23:00Reason for exam:->chest painShould this be performed at the bedside?->YesFINAL REPORT Comparison examination: None No pneumothorax, focal pulmonary co nsolidation, or significant pleural effusion. Normal cardiomediastinal contours. Normal skeleton and soft tissues. Impression: No acute abnormality. Signed: Ervin Jenkins Verified Date/Time: 08/30/2017 04:23:04 Reading Location: [address] Reading Room POCT-GLUCOSE [id number] 21:18:00 Test Item Value Reference Range Interpretation Comments POC-GLUCOSE METER 151 mg/dL 70-110 H TESTED AT [place] [address] ([facility]) (test code = ELIZABETH [place] [facility] 1538) [address] POCT-GLUCOSE [id number] 17:59:00 Test Item Value Reference Range Interpretation Comments POC-GLUCOSE METER 146 mg/dL 70-110 H TESTED AT [facility] 6720 ([facility]) (test code = [facility] [place] [facility] 1538) [address] HEMOGLOBIN [id number] 15:56:00 Test Item Value Reference Range Interpretation Comments HEMOGLOBIN A1C ([facility]) (test code = 13.7 % 4.3-6.1 H 368) CT, BRAIN, WITHOUT [id number] 14:52:00FINAL REPORT CT head without contrast. Comparisons: [...] Hall Verified Date/Time: 08/29/2017 14:52:09 Reading Location: [address] Neuro Reading Room POCT-GLUCOSE [id number] 14:17:00 Test Item Value Reference Range Interpretation Comments POC-GLUCOSE METER 423 mg/dL 70-110 Notified R Devante SOUZA/TESTED [facility] (test code = AT [facility] [address] [facility] 9144) [facility] 7[address] 0 VITAMIN [id number] 06:48:00 Test Item Value Reference Range Interpretation Comments VITAMIN B12 (BEAKER) (test code = 300 pg/mL 213816 774) TSH/FREE T4 IF [id number] 06:48:00 Test Item Value Reference Range Interpretation Comments THYROID STIMULATING HORMONE 1.55 uIU/mL 0.35-4.94 (BEAKER) (test code = 772) CBC W/PLT COUNT & AUTO [id number] 05:10:00 Test Item Value Reference Range Interpretation [...] (BEAKER) (test code = 2801) URINALYSIS W/ [id number] 23:32:00 Test Item Value Reference Range Interpretation [...] Occasional SOURCE(BEAKER) (test code = 2795) TROPONIN [id number] 23:12:00 Test Item Value Reference Range Interpretation [...] acute neurological disease, and persistent tachyarrhythmia.BASIC METABOLIC [id number] 23:05:00 Test Item Value Reference Range Interpretation [...] NOT APPLICABLE FOR DIALYSIS PATIEN TS. POCT-GLUCOSE [id number] 20:49:00 Test Item Value Reference Range Interpretation Comments POC-GLUCOSE METER 376 mg/dL 70-110 H Notified R Devante SOUZA/TESTED (JESSICA) (test code = AT [facility] [address] [facility] 2866) [facility] 7703 0"
--- NOTE | 2021-03-31 16:59 | RAD REPORT ---
EXAM DESCRIPTION: CTChest Abd Pelvis Wo Con - 03/31/2021 4:43 pm CLINICAL HISTORY: Chest pain;Pain;Trauma COMPARISON: Abdomen Pelvis Wo Contrast dated 02/23/2021 TECHNIQUE: CT of the chest, abdomen, and pelvis was performed. All CT scans are performed using dose optimization technique as appropriate and may include automated exposure control or mA/KV adjustment according to patient size. FINDINGS: Thorax: Chest Wall: Contusion in the right upper chest wall. Lungs: No acute abnormality. Pleura: Small pleural effusions . [place]/Mediastinum: No lymphadenopathy. Aorta/Pulmonary Arteries: Unremarkable Heart: Normal size. Trace pericardial effusion. Abdomen/Pelvis: Liver: No acute abnormality or suspicious lesions. Biliary: Cholecystectomy Stomach: No significant focal abnormality. Duodenum: No significant focal abnormality. Pancreas: No significant abnormality. Spleen: No significant abnormality. Adrenal: No suspicious lesions. Kidney/ureter: No hydronephrosis. No renal calculi. Retroperitoneum: No retroperitoneal adenopathy. Vascular: No aneurysm. Bowel: No significant focal abnormality. Diverticulosis without diverticulitis. Peritoneum: Trace free fluid. Small fat containing ventral hernia. Bladder: Grossly unremarkable. Reproductive: No adnexal masses. Bones: No acute fracture. Shrapnel is present in the right iliopsoas muscle. Other: n/a IMPRESSION: Subcutaneous edema and skin thickening in the right upper chest wall/breast may represen t contusion. No other significant trauma is identified. Small pleural effusions.
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
[2021-03-31] MEDS ORDERED: HYDROMORPHONE HCL 2 MG/ML inj ONE (17:45)
[2021-03-31 18:03] VITALS: BP 164/106; TEMP 97.6; O2SAT 100
== END 2021-03-31 17:59 | disposition home or self-care (01) ==
LOC: ER 14:39
DX: S30.1XXA Contusion of abdominal wall, initial encounter (principal); S20.20XA Contusion of thorax, unspecified, initial encounter; R07.9 Chest pain, unspecified
CPT/HCPCS: 71250; 74176; 96372; 99283; J1170

== ENCOUNTER 2021-08-08 08:26 | Emergency (ER) | payer OTHER ==
--- OUTSIDE RECORDS SUMMARY | 2021-08-08 08:33 | XMS REPORT | Continuity of Care Document ---
:1970 Author Organization [facility] t Address [address] [place] [address] Care Team Providers Name Role Phone Fahad Curran MD Primary Care Physician Doctor Unassigned, Name Attending Clinician Unavailable JEWELL Attending Clinician Unavailable Jewell SPECIAL EDUCATION TEACHING ASSISTANT Attending Clinician Meño PAC, Cristina Attending Clinician DEBORAH Attending Clinician Unavailable Eugenia YEP, F Attending Clinician Isaias PAC, S Attending Clinician Olinda SOUZA, S Attending Clinician Laurel JOHNS Attending Clinician Unavailable Isauro JOHNS Attending Clinician Unavailable Shankar SOUZA Attending Clinician [facility] Attending Clinician Unavailable BRENNEN Attending Clinician Unavailable JEWELL Admitting Clinician Unavailable DEBORAH Admitting Clinician Unavailable BRENNEN Admitting Clinician Unavailable Payers Payer Name Policy Type Policy Number Effective Date Expiration Date [facility] [id number] 2020 00:00:00 GROUP AND PENSION [id number] 1989 ADMINISTRATORS 00:00:00 MEDICAID SSI PENDING PENDING 2020 00:00:00 Problems Condition Condition Condition Status Onset Resolution Last Treating Co mments Source Name Details Category Date Date Treatment Clinician Date Migraine Migraine Disease Active Unive rs equivalent equivalent 5-07 it y of 00:00: [place] [facility] Loss of Loss of Disease Active Univers taste taste 5-07 ity of 00:00: [place] [facility] Nausea Nausea Disease Active Univers 5-07 ity of 00:00: [place] [facility] Cough Cough Disease Active Univers 5-07 ity of 00:00: [place] [facility] Dehydratio Dehydratio Disease Active U nivers n n 5-07 ity of 00:00: [place] [facility] Loose Loose Disease Active Univers stools stools 5-07 ity of 00:00: [place] [facility] Left sided Left sided Disease Active [facility]02 [facility]: [address] Neurologic Neurologic Disease Active [facility] al al 6[facility]01 [facility] symptoms symptoms 00:00: Medica l 00 [place] Abdominal Abdominal Disease Active Uni vers pain pain 3-03 ity of 00:00: [place] [facility] Obesity Obesity Disease Active 2015-03 Univers (BMI (BMI 2-29 ity of 30-39.9) 30-39.9) 00:00: [place] [facility] Gastropare Gastropare Disease Active 2015-03 U nivers sis sis 2-29 ity of 00:00: [place] [facility] H/O: H/O: Disease Active Univers hysterecto hysterecto 9-09 it y of my my 00:00: [place] [facility] Morbid Morbid Disease Active Univers obesity obesity 8-30 ity of 00:00: [place] [facility] Chronic Chronic Disease Active Univers abdominal abdominal 1-27 ity of pain pain 00:00: [place] [facility] HTN HTN Disease Active Univers (hypertens (hypertens 1-25 it y of ion), ion), 00:00: [place] benign benign 00 [facility] 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, 1.5, 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 00 Medical Branch Allergies, Adverse Reactions, Alerts Allergy Allergy Status Severity Reaction(s) Onset Inactive Treating Comm ents Source Name Type Date Date Clinician Loratadi Propensi Active Other (See hyperacti [facility] ne-Pseud ty to Comments) 08-28 [facility] oephedri adverse [facility]: Medical ne reaction 00 Center s Prochlor Propensi Active Other (See Seizures [facility] perazine ty to Comments) 08-28 [facility] adverse 00:00: Medical reaction 00 Center s Meperidi Propensi Active Rash [facility] ne ty to 08-28 [facility] adverse 00:00: Medical reaction 00 Center s Phenobar Drug Active Itching, [facility] b-[facility] Allergy Rash 08-28 [facility] -Atropin 00:00: Medical e[facility] Morphine Propensi Active Rash [facility] ty to 08-28 [facility] adverse 00:00: Medical reaction 00 [place] s MUSHROOM DRUG Active Hives 2015-03 Univers [...] Medical s Branch Meperidi Propensi Active Rash Univer s ne Hcl ty to 1-24 ity of adverse 00:00: [place] reaction Medical s [place] Phenobar Propensi Active Anaphylaxis U nivers b-Hyoscy ty to 1-24 ity of -Atropin adverse 00:00: [place] e-Scop reaction Medical s [place] Morphine Propensi Active Rash Univer s ty to 1-24 ity of adverse 00:00: [place] reaction 00 Medical s [place] Social History Social Habit Start Date Stop Date Quantity Comments Source Exposure to Not sure [facility] SARS-CoV-2 (event) [facility] Tobacco use and 2015-11-25 2015-11-25 Never used [facility] exposure 00:00:00 00:00:00 [facility] Sex [birth year] [facility] 00:00:00 00:00:00 [facility] Smoking Status Start Date Stop Date Source Never smoker [facility] Medications Ordered Filled Start Stop Current Ordering Indication Dosage Frequency Signature Comments Components Source Medication Medication Date Date Medication? Clinician (SIG) Name Name HYDROcodone 2021- No 1{tbl} 1 tablet, Univers -acetaminop 03-30 Oral, ONCE i ty of hen (NORCO) 01:15: 00:19 NOW, 1 [place] as 10-325 mg 00 :00 dose, On Medica l tablet 1 Thu [place] tablet 03/29/21 at 1915, Routine clonazePAM Yes .5mg 0.5 mg, Univ ers (KLONOPIN) 11-03 Oral, TID, ity of tablet 0.5 01:00: First dose [place] mg 00 on Fri Medical 11/02/20 at Branch 1999, Until Discontinu ed, Routine pantoprazol 2020- No 40mg 40 mg, Uni vers e 11-03 Slow IV ity of (PROTONIX) 01:00: 00:10 Push, [place] injection 00 :00 ONCE, 1 Medical 40 mg dose, [facility] 11/02/20 at 1999 NaCl 0.9% 2020- No 1000mL at 999 Uni vers (NS) bolus 11-03 mL/hr, ity of infusion 00:45: 01:05 1,000 mL, [place] as 1,000 mL 00 :00 IV Medical Infusion, [place] ONCE, 1 dose, 11/02/20 at 1945, STAT magnesium No 2g 2 g, IV Univ ers sulfate in 11-02 Piggyback, it y of water 2 23:45: 00:06 ONCE, 1 [place] gram/50 mL 00 :00 dose, Fri Medi nicole (4 %) 11/02/20 at [place] infusion 2 1845, g Routine iopamidol 2020- No [id number] 120mL 120 mL, Univers (ISOVUE 11-02 Intravenou ity o f 370-500 mL) 23:45: 23:45 s, ONCE, 1 [place] injection 00 :00 dose, Fri Medic al 120 mL 11/02/20 at [place] 1845, Routine proMETHazin No 12.5mg 12.5 mg, Univers e 11-02 [...] ONCE, 1 Medical 50 mcg dose, Fri [place] 11/02/20 at 1715, STAT NaCl 0.9% 2020- No 1000mL at 999 Uni vers (NS) bolus 11-02 mL/hr, ity of infusion 22:00: 00:00 1,000 mL, [place] as 1,000 mL 00 :00 IV Medical Infusion, [place] ONCE, 1 dose, 11/02/20 at 1700, STAT methylpredn 2020- No 125mg 125 mg, U nivers isolone sod 11-02 Intravenou i ty of succ 22:00: 22:11 s, ONCE, 1 [place] (SOLU-MEDRO 00 :00 dose, Fri Med ical L) 11/02/20 at Branch injection 1700, STAT 125 mg methylPREDN 2020-0 Yes [id number] Take by Univers ISolone 8-06 mouth ity [...] (scale 4-6). Indication s: acute pain pantoprazol 2020-0 Yes [id number] 40mg Take 1 Univers e 40 mg EC 8-06 tablet by ity of tablet 00:00: mouth [place] 00 daily. Medical Branch proMETHazin 2020-0 Yes [id number] 25mg Take 1 Univers e 25 mg 8-06 tablet by ity of tablet 00:00: mouth [place] 00 every 6 Medical (six) Branch hours as needed for Nausea and Vomiting (N/V). methylPREDN 2020-0 Yes [id number] Take by Univers ISolone 8-06 mouth ity [...] (scale 4-6). Indication s: acute pain pantoprazol 2020-0 Yes [id number] 40mg Take 1 Univers e 40 mg EC 8-06 tablet by ity of tablet 00:00: mouth [place] 00 daily. Medical Branch proMETHazin 2020-0 Yes [id number] 25mg Take 1 Univers e 25 mg 8-06 tablet by ity of tablet 00:00: mouth [place] 00 every 6 Medical (six) Branch hours as needed for Nausea and Vomiting (N/V). methylPREDN 2020-0 Yes [id number] Take by Univers ISolone 8-06 mouth ity of (MEDROL, 00:00: SEE-INSTRU Roberto as OBDULIA,) 4 mg 00 CTIONS. Medica l tablets follow Branch package directions traMADoL 50 2021-0 Yes [id number] 50mg Take 1 Univ ers mg tablet 8-06 tablet by ity o f 00:00: mouth [place] 00 every 6 Medical (six) Branch hours as needed for Pain (scale 4-6). Indication s: acute pain pantoprazol Yes [id number] 40mg Take 1 Univers e 40 mg EC 8-06 tablet by ity of tablet 00:00: mouth [place] 00 daily. Medical Branch proMETHazin Yes [id number] 25mg Take 1 Univers e 25 mg 8-06 tablet by ity of tablet 00:00: mouth [place] 00 every 6 Medical (six) Branch hours as needed for Nausea and Vomiting (N/V). FENTanyl PF 2020- No 50ug 50 mcg, Un [place] (SUBLIMAZE 5-10 05-10 Slow IV ity o f (PF)) 05:45: 04:39 Push, [place] injection 00 :00 ONCE, 1 Medical 50 mcg dose, [facility] 08/06/20 at 0045, Routine iopamidol No [id number] 100mL 100 mL, Univers (ISOVUE 5-10 05-10 [...] :00 ONCE, 1 Medical 50 mcg dose, [facility] 08/05/20 at 2315, Routine cefTRIAXone 2020- No 1000mg 1,000 mg, Univers (ROCEPHIN) 5-10 05-10 IV ity of 1,000 mg in 04:00: 03:51 Piggyback, [place] NaCl 0.9% 00 :00 ONCE, 1 Medical [...] 20 mg 00 :00 1 dose, Medical [place] 08/05/20 Branch at 2215, Routine NaCl 0.9% 2020- No 1000mL at 999 Uni vers (NS) bolus 5-10 05-10 mL/hr, ity of infusion 02:45: 04:21 1,000 mL, [place] as 1,000 mL 00 :00 IV Medical Infusion, Branch ONCE, 1 dose, [place] 08/05/20 at 2145, MANFRED NaCl 0.9% 2020- No 1000mL at 999 Uni vers (NS) bolus 5-10 05-10 mL/hr, ity of infusion 02:15: 04:21 1,000 mL, [place] as 1,000 mL 00 :00 IV Medical Infusion, Branch ONCE, 1 dose, [place] 08/05/20 at 2115, MANFRED proMETHazin Yes [id number] 25mg Take 1 Univers e 25 mg 5-09 tablet by ity of tablet 00:00: mouth [place] 00 every 6 Medical (six) Branch hours as needed for N/V unresponsi ve to Ondansetro n. zolpidem Yes [id number] 12.5mg Take 1 U nivers 12.5 mg CR 5-09 tablet by ity of tablet 00:00: mouth at [place] 00 bedtime as Medical needed for Branch Sleep. zolpidem 2020-0 Yes [id number] 12.5mg Take 1 U nivers 12.5 mg CR 5-09 tablet by ity of tablet 00:00: mouth at [place] 00 bedtime as Medical needed for Branch Sleep. zolpidem 0 Yes [id number] 12.5mg Take 1 U nivers 12.5 mg CR 5-09 tablet by ity of tablet 00:00: mouth at [place] 00 bedtime as Medical needed for Branch Sleep. zolpidem Yes [id number] 12.5mg Take 1 U nivers 12.5 mg CR 08-05 tablet by ity of tablet 00:00: mouth at [place] 00 bedtime as Medical needed for Branch Sleep. proMETHazin 2020- No [id number] 25mg Take 1 Univers e 25 mg 08-05-06 tablet by ity of tablet 00:00: 00:00 mouth [place] 00 :00 every 6 Medical (six) Branch hours as needed for N/V unresponsi ve to Ondansetro n. dicyclomine 2020- No [id number] 20mg Take 1 Univers 20 mg 08-05 tablet by ity of tablet 00:00: 04:59 mouth 4 [place] 00 :00 (four) Medical times Branch daily for 7 days. cefdinir 2020- No [id number] 300mg Take 1 U nivers 300 mg 08-05 capsule by ity of capsule 00:00: 04:59 mouth 2 [place] 00 :00 (two) Medical times Branch daily for 7 days. insulin 2020- No 8U 8 Units, Unive rs regular 07-23 Slow IV ity of human 01:30: 00:52 Push, [place] (HUMULIN R) 00 :00 ONCE, 1 Medic al injection 8 dose, [place] Bra nch Units 07/22/20 at 2030, Routine dexamethaso 2020- No 10mg 10 mg, IV Univers ne 07-23 Push, ity of (DECADRON 01:15: 00:18 ONCE, 1 [place] PHOSPHATE) 00 :00 dose, [place] Medi nicole injection 07/22/20 at Bran ch 10 mg 2015, STAT NaCl 0.9% 2020- No 1000mL at 999 Uni vers (NS) bolus 07-23 mL/hr, ity of infusion 00:15: 01:01 1,000 mL, [place] 1,000 mL 00 :00 IV Medical Infusion, Branch ONCE, 1 dose, [place] 07/22/20 at 1915, MANFRED ketorolac 2020- No 30mg 30 mg, Unive rs (TORADOL) 4-25 04-25 Slow IV ity of injection 23:45: 22:55 Push, [place] 30 mg 00 :00 ONCE, 1 Medical dose, [place] Branch 07/22/20 at 1845, Routine
guardian family member approving Restricted medication : MAYTE LAMB metoclopram 2020- No 10mg 10 mg, Uni vers meredith HCl 07-22-25 Slow IV ity of (REGLAN) 23:45: 22:55 Push, [place] injection 00 :00 ONCE, 1 Medical 10 mg dose, [place] Branch 07/22/20 at 1845, MANFRED NaCl 0.9% 2020- No 1000mL at 999 Uni vers (NS) bolus 07-22 04-26 mL/hr, ity of infusion 22:45: 00:17 1,000 mL, [place] 1,000 mL 00 :00 IV Medical Infusion, Branch ONCE, 1 dose, [place] 07/22/20 at 1745, MANFRED ibuprofen Yes [id number] 800mg Take 1 U nivers 800 mg 4-25 tablet by ity of tablet 00:00: mouth [place] 00 every 6 Medical (six) Branch hours as needed for Pain (scale 4-6). traMADoL 50 Yes [id number] 50mg Take 1 Univ ers mg tablet 4-25 tablet by ity o f 00:00: mouth [place] 00 every 6 Medical (six) Branch hours as needed for Pain (scale 7-10). Indication s: acute pain ibuprofen Yes [id number] 800mg Take 1 U nivers 800 mg 4-25 tablet by ity of tablet 00:00: mouth [place] 00 every 6 Medical (six) Branch hours as needed for Pain (scale 4-6). traMADoL 50 Yes [id number] 50mg Take 1 Univ ers mg tablet 4-25 tablet by ity o f 00:00: mouth [place] 00 every 6 Medical (six) Branch hours as needed for Pain (scale 7-10). Indication s: acute pain ibuprofen Yes [id number] 800mg Take 1 U nivers 800 mg 4-25 tablet by ity of tablet 00:00: mouth [place] 00 every 6 Medical (six) Branch hours as needed for Pain (scale 4-6). ibuprofen Yes [id number] 800mg Take 1 U nivers 800 mg 4-25 tablet by ity of tablet 00:00: mouth [place] 00 every 6 Medical (six) Branch hours as needed for Pain (scale 4-6). ibuprofen 2020- Yes [id number] 800mg Take 1 U nivers 800 mg 4-25 tablet by ity of tablet 00:00: mouth [place] 00 every 6 Medical (six) Branch hours as needed for Pain (scale 4-6). traMADoL 50 2020-2020- No [id number] 50mg Take 1 Uni vers mg tablet 4-25 08-06 tablet by ity of 00:00: 00:00 mouth [place] 00 :00 every 6 Medical (six) Branch hours as needed for Pain (scale 7-10). Indication s: acute pain traMADoL 50 2020-2020- No [id number] 50mg Take 1 Uni vers mg tablet 4-25 04-25 tablet by ity of 00:00: 00:00 mouth [place] 00 :00 every 6 Medical (six) Branch hours as needed for Pain (scale 7-10). Indication s: acute pain ibuprofen 2020- No [id number] 800mg Take 1 Univers 800 mg 4-25 04-25 tablet by ity of tablet 00:00: 00:00 mouth [place] 00 :00 every 6 Medical (six) Branch hours as needed for Pain (scale 4-6). NaCl 0.9% 2020- No 1000mL at 999 Uni vers (NS) bolus 05-2021 mL/hr, ity of infusion 00:00: 00:05 1,000 mL, [place] as 1,000 mL 00 :00 IV Medical Infusion, Branch ONCE, 1 dose, 05/19/20 at 1800, STAT proMETHazin 2020- No 25mg 25 mg, IV Univers e 05-2021 Piggyback, ity of (PHENERGAN) 00:00: 00:00 ONCE, [...] Sat Branch 05/19/20 at 1800, STAT proMETHazin 2020-0 Yes [id number] 25mg Take 1 Univers e 25 mg [...] Indication s: acute pain proMETHazin 2020-0 Yes [id number] 25mg Insert 1 Univers e 25 mg 2-20 Suppositor ity of suppository 00:00: [place] 00 rectum Medical every 4 Branch (four) hours as needed for Nausea and Vomiting (N/V). proMETHazin 2020-0 Yes [id number] 25mg Take 1 Univers e 25 mg [...] Indication s: acute pain proMETHazin 2020-0 Yes [id number] 25mg Insert 1 Univers e 25 mg 2-20 Suppositor ity of suppository 00:00: y into [place] 00 rectum Medical every 4 Branch (four) hours as needed for Nausea and Vomiting (N/V). proMETHazin 2020-0 Yes [id number] 25mg Take 1 Univers e 25 mg [...] Indication s: acute pain proMETHazin 2020-0 Yes [id number] 25mg Insert 1 Univers e 25 mg 2-20 Suppositor ity of suppository 00:00: y into [place] 00 rectum Medical every 4 Branch (four) hours as needed for Nausea and Vomiting (N/V). proMETHazin Yes [id number] 25mg Take 1 Univers e 25 mg [...] 7-10). Indication s: acute pain proMETHazin Yes [id number] 25mg Insert 1 Univers e 25 mg 2-20 Suppositor ity of suppository 00:00: y into [place] 00 rectum Medical every 4 Branch (four) hours as needed for Nausea and Vomiting (N/V). proMETHazin 2020- No [id number] 25mg Take 1 Univers e 25 mg 2-20 08-06 tablet by ity of tablet 00:00: 00:00 mouth [place] 00 :00 every 6 Medical (six) Branch hours as needed for Nausea and Vomiting (N/V). traMADoL 50 2020- No [id number] 50mg Take 1 Uni vers mg tablet 2-20 08-06 tablet by ity of 00:00: 00:00 mouth [place] 00 :00 every 6 Medical (six) Branch hours as needed for Pain (scale 7-10). Indication s: acute pain proMETHazin 2020- No [id number] 25mg Insert 1 Univers e 25 mg 2-20 08-06 Suppositor ity o f suppository 00:00: 00:00 y into [place] as 00 :00 rectum Medical every 4 Branch (four) hours as needed for Nausea and Vomiting (N/V). ibuprofen 2019-03 Yes [id number] 600mg Take 1 Univers 600 mg 2-12 tablet by ity of tablet 00:00: mouth [place] 00 every 6 Medical (six) Branch hours as needed for Pain (scale 4-6). metFORMIN 2019-03 Yes [id number] 500mg Take 1 Univers 500 mg 2-12 tablet by ity of tablet 00:00: mouth 2 00 (two) Medical times Branch daily with meals. cyclobenzap 2020- Yes [id number] 10mg Take 1 Univers rine 10 mg 2-12 tablet by ity of tablet 00:00: mouth 3 (three) Medical times Branch daily. ibuprofen 2020- Yes [id number] 600mg Take 1 Univers 600 mg 2-12 tablet by ity of tablet 00:00: mouth [place] 00 every 6 Medical (six) Branch hours as needed for Pain (scale 4-6). metFORMIN 2020- Yes [id number] 500mg Take 1 Univers 500 mg 2-12 tablet by ity of tablet 00:00: mouth 2 00 (two) Medical times Branch daily with meals. cyclobenzap 2019-03 Yes [id number] 10mg Take 1 Univers rine 10 mg 2-12 tablet by ity of tablet 00:00: mouth 3 (three) Medical times Branch daily. ibuprofen 2019- Yes [id number] 600mg Take 1 Univers 600 mg 2-12 tablet by ity of tablet 00:00: mouth [place] 00 every 6 Medical (six) Branch hours as needed for Pain (scale 4-6). metFORMIN 2020-1 Yes [id number] 500mg Take 1 Univers 500 mg 2-12 tablet by ity of tablet 00:00: mouth 2 (two) Medical times Branch daily with meals. cyclobenzap 2019- Yes [id number] 10mg Take 1 Univers rine 10 mg 2-12 tablet by ity of tablet 00:00: mouth 3 (three) Medical times Branch daily. ibuprofen 2020- Yes [id number] 600mg Take 1 Univers 600 mg 2-12 tablet by ity of tablet 00:00: mouth [place] 00 every 6 Medical (six) Branch hours as needed for Pain (scale 4-6). metFORMIN 2020-1 Yes [id number] 500mg Take 1 Univers 500 mg 2-12 tablet by ity of tablet 00:00: mouth 2 00 (two) Medical times Branch daily with meals. cyclobenzap 2020- Yes [id number] 10mg Take 1 Univers rine 10 mg 2-12 tablet by ity of tablet 00:00: mouth 3 00 (three) Medical times Branch daily. ibuprofen 2020- Yes [id number] 600mg Take 1 Univers 600 mg 2-12 tablet by ity of tablet 00:00: mouth [place] 00 every 6 Medical (six) Branch hours as needed for Pain (scale 4-6). metFORMIN 2020- Yes [id number] 500mg Take 1 Univers 500 mg 2-12 tablet by ity of tablet 00:00: mouth 2 00 (two) Medical times Branch daily with meals. cyclobenzap 2019-03 Yes [id number] 10mg Take 1 Univers rine 10 mg 2-12 tablet by ity of tablet 00:00: mouth 3 [place] 00 (three) Medical times Branch daily. ibuprofen 2019- Yes [id number] 600mg Take 1 Univers 600 mg 2-12 tablet by ity of tablet 00:00: mouth [place] 00 every 6 Medical (six) Branch hours as needed for Pain (scale 4-6). metFORMIN 2019- Yes [id number] 500mg Take 1 Univers 500 mg 2-12 tablet by ity of tablet 00:00: mouth 2 00 (two) Medical times Branch daily with meals. cyclobenzap 2019-03 Yes [id number] 10mg Take 1 Univers rine 10 mg 2-12 tablet by ity of tablet 00:00: mouth 3 00 (three) Medical times Branch daily. ibuprofen 2019- Yes [id number] 600mg Take 1 Univers 600 mg 2-12 tablet by ity of tablet 00:00: mouth [place] 00 every 6 Medical (six) Branch hours as needed for Pain (scale 4-6). metFORMIN 2019- Yes [id number] 500mg Take 1 Univers 500 mg 2-12 tablet by ity of tablet 00:00: mouth 2 00 (two) Medical times Branch daily with meals. cyclobenzap 2019-03 Yes [id number] 10mg Take 1 Univers rine 10 mg 2-12 tablet by ity of tablet 00:00: mouth 3 00 (three) Medical times Branch daily. proMETHazin 2019-03- No [id number] 25mg Take 1 Univers e 25 mg 2-12 02-20 tablet by ity of tablet 00:00: 00:00 mouth [place] 00 :00 every 6 Medical (six) Branch hours as needed for Nausea and Vomiting (N/V). insulin 2019- No 5U 5 Units, Unive rs regular 5-25 05-25 Subcutaneo ity o f human 08:00: 07:05 us, ONCE, [place] (HUMULIN R) 00 :00 1 dose, Medic al injection 5 [facility] Units 08/22/19 at 0300, Routine FENTanyl PF 2019-0 2020- No 50ug 50 mcg, Un [place] (SUBLIMAZE 5-25 05-25 Slow IV ity o f (PF)) 07:30: 07:05 Push, [place] injection 00 :00 ONCE, 1 Medical 50 mcg dose, [facility] Branch 08/22/19 at 0230, Routine FENTanyl PF 2019-0 2020- No 75ug 75 mcg, Un [place] (SUBLIMAZE 5-25 05-25 Slow IV ity o f (PF)) 06:15: 05:20 Push, [place] injection 00 :00 ONCE, 1 Medical 75 mcg dose, [facility] Branch 08/22/19 at 0115, Routine proMETHazin 2019-0 2020- No 25mg 25 mg, IV Univers e 5-25 05-25 Piggyback, ity of (PHENERGAN) 06:15: 05:20 ONCE, 1 [place] 25 mg in 00 :00 dose, Mon Medica l NaCl 0.9% 08/22/19 at Bran ch (NS) 50 mL 0115, 50 piggyback mL propranolol 2020-0 Yes 60mg Take 60 mg Univers (INDERAL) 5-25 by mouth ity of 60 mg 05:29: daily. [address] carvediloL 2020-0 Yes 12.5mg Take 12.5 Univers 12.5 mg 5-25 mg by ity of tablet 05:29: mouth 2 [place] [address] ([facility]) Medical times [place] daily with meals. propranolol 2020-0 Yes 60mg Take 60 mg Univers (INDERAL) 5-25 by mouth ity of 60 mg 05:29: daily. [address] carvediloL 2020-0 Yes 12.5mg Take 12.5 Univers 12.5 mg 5-25 mg by ity of tablet 05:29: mouth 2 [place] [address] ([facility]) [facility] times [place] daily with meals. propranolol 2020-0 Yes 60mg Take 60 mg Univers (INDERAL) 5-25 by mouth ity of 60 mg 05:29: daily. [place] tablet [address] [place] [address] carvediloL 2020-0 Yes 12.5mg Take 12.5 Univers 12.5 mg 5-25 mg by ity of tablet 05:29: mouth 2 [place] [address] (two) Medical times [place] daily with meals. propranolol 2020-0 Yes 60mg Take 60 mg Univers (INDERAL) 5-25 by mouth ity of 60 mg 05:29: daily. [place] tablet 28 [facility] carvediloL 2020-0 Yes 12.5mg Take 12.5 Univers 12.5 mg 5-25 mg by ity of tablet 05:29: mouth 2 [place] [address] ([facility]) [facility] daily with meals. propranolol 2020-0 Yes 60mg Take 60 mg Univers (INDERAL) 5-25 by mouth ity of 60 mg 05:29: daily. [place] tablet [address] [place] [address] carvediloL 2020-0 Yes 12.5mg Take 12.5 Univers 12.5 mg 5-25 mg by ity of tablet 05:29: mouth 2 [place] [address] [address] daily with meals. propranolol 2020-0 Yes 60mg Take 60 mg Univers (INDERAL) 5-25 by mouth ity of 60 mg 05:29: daily. [facility] 28 [facility] carvediloL 2020-0 Yes 12.5mg Take 12.5 Univers 12.5 mg 5-25 mg by ity of tablet 05:29: mouth 2 [place] [address] ([facility]) [facility] daily with meals. ARIPiprazol 2020-0 Yes 2mg Take 2 mg U nivers e (ABILIFY) 5-25 by mouth ity of 2 mg tablet 05:28: daily. [address] ARIPiprazol 2020-0 Yes 2mg Take 2 mg U nivers e (ABILIFY) 5-25 by mouth ity of 2 mg tablet 05:28: daily. [address] ARIPiprazol 2020-0 Yes 2mg Take 2 mg U nivers e (ABILIFY) 5-25 by mouth ity of 2 mg tablet 05:28: daily. [address] ARIPiprazol 2020-0 Yes 2mg Take 2 mg U nivers e (ABILIFY) 5-25 by mouth ity of 2 mg tablet 05:28: daily. [address] ARIPiprazol 2020-0 Yes 2mg Take 2 mg U nivers e (ABILIFY) 5-25 by mouth ity of 2 mg tablet 05:28: daily. [address] ARIPiprazol 2020-0 Yes 2mg Take 2 mg U nivers e (ABILIFY) 5-25 by mouth ity of 2 mg tablet 05:28: daily. [address] propranolol 2020-0 Yes 60mg Take 60 mg Univers (INDERAL) 5-25 by mouth ity of 60 mg 00:29: daily. [address] carvediloL 2020-0 Yes 12.5mg Take 12.5 Univers 12.5 mg 5-25 mg by ity of tablet 00:29: mouth 2 [place] [address] (two) Medical times [place] daily with meals. propranolol 2020-0 Yes 60mg Take 60 mg Univers (INDERAL) 5-25 by mouth ity of 60 mg 00:29: daily. [address] carvediloL 2020-0 Yes 12.5mg Take 12.5 Univers 12.5 mg 5-25 mg by ity of tablet 00:29: mouth 2 [place] [address] (two) Medical times [place] daily with meals. ARIPiprazol 2020-0 Yes 2mg Take 2 mg [facility] n[facility] e (ABILIFY) 5-25 by mouth ity of 2 mg tablet 00:28: daily. [address] ARIPiprazol 2020-0 Yes 2mg Take 2 mg [facility] (ABILIFY) 5-25 by mouth ity of 2 mg tablet 00:28: daily. [address] dicyclomine 2020-0 Yes [id number] 20mg Take 1 [facility] 20 mg 5-25 tablet by ity of tablet 00:00: mouth [place] 00 every 6 Medical (six) Branch hours as needed for Abdominal pain. proMETHazin 2020-0 Yes [id number] 25mg Take 1 [facility] e 25 mg 5-25 tablet by ity of tablet 00:00: mouth [place] 00 every 6 Medical (six) Branch hours as needed for Nausea and Vomiting (N/V). dicyclomine 2020-0 Yes [id number] 20mg Take 1 [facility] 20 mg 5-25 tablet by ity of tablet 00:00: mouth [place] 00 every 6 Medical (six) Branch hours as needed for Abdominal pain. dicyclomine 2020-0 Yes [id number] 20mg Take 1 [facility] 20 mg 5-25 tablet by ity of tablet 00:00: mouth [place] 00 every 6 Medical (six) Branch hours as needed for Abdominal pain. dicyclomine 2020-0 Yes [id number] 20mg Take 1 [facility] 20 mg 5-25 tablet by ity of tablet 00:00: mouth [place] 00 every 6 Medical (six) Branch hours as needed for Abdominal pain. dicyclomine 2020-0 Yes [id number] 20mg Take 1 [facility] 20 mg 5-25 tablet by ity of tablet 00:00: mouth [place] 00 every 6 Medical (six) Branch hours as needed for Abdominal pain. dicyclomine 2020-0 Yes [id number] 20mg Take 1 [facility] 20 mg 5-25 tablet by ity of tablet 00:00: mouth [place] 00 every 6 Medical (six) Branch hours as needed for Abdominal pain. dicyclomine 2020-0 Yes [id number] 20mg Take 1 [facility] 20 mg 5-25 tablet by ity of tablet 00:00: mouth [place] 00 every 6 Medical (six) Branch hours as needed for Abdominal pain. dicyclomine 2020-0 Yes [id number] 20mg Take 1 [facility] 20 mg 5-25 tablet by ity of tablet 00:00: mouth [place] 00 every 6 Medical (six) Branch hours as needed for Abdominal pain. dicyclomine 2020-0 Yes [id number] 20mg Take 1 [facility] 20 mg 5-25 tablet by ity of tablet 00:00: mouth [place] 00 every 6 Medical (six) Branch hours as needed for Abdominal pain. dicyclomine 2020-0 Yes [id number] 20mg Take 1 [facility] 20 mg 5-25 tablet by ity of tablet 00:00: mouth [place] 00 every 6 Medical (six) Branch hours as needed for Abdominal pain. dicyclomine 2020-0 Yes [id number] 20mg Take 1 [facility] 20 mg 5-25 tablet by ity of tablet 00:00: mouth [place] 00 every 6 Medical (six) Branch hours as needed for Abdominal pain. dicyclomine 2020-0 Yes [id number] 20mg Take 1 [facility] 20 mg 5-25 tablet by ity of tablet 00:00: mouth [place] 00 every 6 Medical (six) Branch hours as needed for Abdominal pain. dicyclomine 2020-0 Yes [id number] 20mg Take 1 [facility] 20 mg 5-25 tablet by ity of tablet 00:00: mouth [place] 00 every 6 Medical (six) Branch hours as needed for Abdominal pain. dicyclomine 2020-0 Yes [id number] 20mg Take 1 [facility] 20 mg 5-25 tablet by ity of tablet 00:00: mouth [place] 00 every 6 Medical (six) Branch hours as needed for Abdominal pain. dicyclomine 2020-0 Yes [id number] 20mg Take 1 [facility] 20 mg 5-25 tablet by ity of tablet 00:00: mouth [place] 00 every 6 Medical (six) Branch hours as needed for Abdominal pain. dicyclomine 2020-0 Yes [id number] 20mg Take 1 [facility] 20 mg 5-25 tablet by ity of tablet 00:00: mouth [place] 00 every 6 Medical (six) Branch hours as needed for Abdominal pain. proMETHazin 2019-0 2020- No [id number] 25mg Take 1 [facility] e 25 mg 5-25 02-20 tablet by ity of tablet 00:00: 00:00 mouth [place] 00 :00 every 6 Medical (six) Branch hours as needed for Nausea and Vomiting (N/V). ARIPiprazol 2020-0 Yes 2mg Take 2 mg [facility] (ABILIFY) 5-07 by mouth ity of 2 mg tablet 19:53: [facility]. [place] [facility] tiZANidine 2020-0 Yes 4mg Take 4 mg [facility] (ZANAFLEX) 5-07 by mouth 2 ity of 4 mg 19:53: (two) [place] capsule 38 times Medical daily. Branch citalopram 2020-0 Yes 40mg Take 40 mg [facility] n[facility] (CELEXA) 40 5-07 by mouth ity of mg tablet 19:53: daily. [place] [address] Medical Branch clonazePAM 2020-0 Yes Take by Uni vers (KLONOPIN) 5-07 mouth 2 ity of 0.5 mg 19:53: (two) [place] disintegrat 38 times Medical ing tablet daily as Branc h needed for Anxiety. ZN 2020-0 Yes Take by [facility] GLUC/PUMP 5-07 mouth. ity of SEED 19:53: [place] OIL/SAW PAL 38 Medical (PROPALMEX Branch ORAL) propranolol 2020-0 Yes 60mg Take 60 mg [facility] (INDERAL) 5-07 by mouth ity of 60 mg 19:53: daily. [place] tablet 38 Medical Branch butorphanol 2020-0 Yes 1{spray Use 1 [facility] (STADOL) 10 5-07 } [place] in ity of mg/mL nasal 19:53: each [place] spray 38 nostril as Medical needed for Branch Pain. METFORMIN 2020-0 Yes 500mg Take 500 [facility] vers HCL 5-07 mg by ity of (METFORMIN 19:53: mouth [place] ORAL[place] 38 (two) Medical times Branch daily. zolpidem 2020-0 Yes 12.5mg Take 12.5 [facility] [place] 12.5 mg CR 5-07 mg by ity of tablet 19:53: mouth at [place] [address] bedtime as Medical needed for Branch Sleep. ARIPiprazol 2020-0 Yes 2mg Take 2 mg [facility] e (ABILIFY) 5-07 by mouth ity of 2 mg tablet 19:53: daily. [place] [facility] tiZANidine 2020-0 Yes 4mg Take 4 mg [facility] (ZANAFLEX) 5-07 by mouth 2 ity of 4 mg 19:53: (two) [place] capsule 38 times Medical daily. Branch citalopram 2020-0 Yes 40mg Take 40 mg [facility] n[facility] (CELEXA) 40 5-07 by mouth ity of mg tablet 19:53: daily. [place] [address] Medical Branch clonazePAM 2020-0 Yes Take by [facility] vers (KLONOPIN) 5-07 mouth 2 ity of 0.5 mg 19:53: (two) [place] disintegrat 38 times Medical ing tablet daily as Branc h needed for Anxiety. ZN 2020-0 Yes Take by [facility] GLUC/PUMP 5-07 mouth. ity of SEED 19:53: [place] OIL/SAW PAL 38 Medical (PROPALMEX Branch ORAL) propranolol 2020-0 Yes 60mg Take 60 mg [facility] (INDERAL) 5-07 by mouth ity of 60 mg 19:53: daily. [place] tablet 38 Medical Branch butorphanol 2020-0 Yes 1{spray Use 1 [facility] (STADOL) 10 5-07 } [place] in ity of mg/mL nasal 19:53: each [place] spray 38 nostril as Medical needed for Branch Pain. METFORMIN 2020-0 Yes 500mg Take 500 [facility] vers HCL 5-07 mg by ity of (METFORMIN 19:53: mouth [place] ORAL[place] 38 (two) Medical times Branch daily. zolpidem 2020-0 Yes 12.5mg Take 12.5 [facility] [place] 12.5 mg CR 5-07 mg by ity of tablet 19:53: mouth at [place] [address] bedtime as Medical needed for Branch Sleep. ARIPiprazol 2020-0 Yes 2mg Take 2 mg [facility] n[facility] e (ABILIFY) 5-07 by mouth ity of 2 mg tablet 19:53: daily. [address] Branch tiZANidine 2020-0 Yes 4mg Take 4 mg [facility] (ZANAFLEX) 5-07 by mouth 2 ity of 4 mg 19:53: (two) [place] capsule 38 times Medical daily. Branch citalopram 2020-0 Yes 40mg Take 40 mg U nivers (CELEXA) 40 5-07 by mouth ity of mg tablet 19:53: daily. [address] Branch clonazePAM 2020-0 Yes Take by [facility] vers (KLONOPIN) 5-07 mouth 2 ity of 0.5 mg 19:53: (two) [place] disintegrat 38 times Medical ing tablet daily as Branc h needed for Anxiety. ZN 2020-0 Yes Take by [facility] GLUC/PUMP 5-07 mouth. ity of SEED 19:53: [place] OIL/SAW PAL 38 Medical (PROPALMEX Branch ORAL) propranolol 2020-0 Yes 60mg Take 60 mg [facility] (INDERAL) 5-07 by mouth ity of 60 mg 19:53: daily. [place] tablet Medical Branch butorphanol 2020-0 Yes 1{spray Use 1 [facility] [place] (STADOL) 10 5-07 } [place] in ity of mg/mL nasal 19:53: each [place] spray 38 nostril as Medical needed for Branch Pain. METFORMIN 2020-0 Yes 500mg Take 500 [facility] vers HCL 5-07 mg by ity of (METFORMIN 19:53: mouth 2 [place] ORAL[place] 38 (two) Medical times Branch daily. zolpidem 2020-0 Yes 12.5mg Take 12.5 [facility] [place] 12.5 mg CR 5-07 mg by ity of tablet 19:53: mouth at [place] [address] bedtime as Medical needed for Branch Sleep. ARIPiprazol 2020-0 Yes 2mg Take 2 mg [facility] n[facility] e (ABILIFY) 5-07 by mouth ity of 2 mg tablet 19:53: daily. [address] Branch tiZANidine 2020-0 Yes 4mg Take 4 mg [facility] [place] (ZANAFLEX) 5-07 by mouth 2 ity of 4 mg 19:53: (two) [place] capsule 38 times Medical daily. Branch citalopram 2020-0 Yes 40mg Take 40 mg U nivers (CELEXA) 40 5-07 by mouth ity of mg tablet 19:53: daily. [place] [address] Medical Branch clonazePAM 2020-0 Yes Take by [facility] vers (KLONOPIN) 5-07 mouth 2 ity of 0.5 mg 19:53: (two) [place] disintegrat 38 times Medical ing tablet daily as Branc h needed for Anxiety. ZN 2020-0 Yes Take by [facility] GLUC/PUMP 5-07 mouth. ity of SEED 19:53: [place] OIL/SAW PAL 38 Medical (PROPALMEX Branch ORAL) propranolol 2020-0 Yes 60mg Take 60 mg [facility] (INDERAL) 5-07 by mouth ity of 60 mg 19:53: daily. [place] tablet Medical Branch butorphanol 2020-0 Yes 1{spray Use 1 [facility] [place] (STADOL) 10 5-07 } [place] in ity of mg/mL nasal 19:53: each [place] spray 38 nostril as Medical needed for Branch Pain. METFORMIN 2020-0 Yes 500mg Take 500 [facility] vers HCL 5-07 mg by ity of (METFORMIN 19:53: mouth 2 [place] ORAL[place] 38 (two) Medical times Branch daily. zolpidem 2020-0 Yes 12.5mg Take 12.5 [facility] [place] 12.5 mg CR 5-07 mg by ity of tablet 19:53: mouth at [place] [address] bedtime as Medical needed for Branch Sleep. ARIPiprazol 2020-0 Yes 2mg Take 2 mg [facility] nivers e (ABILIFY) 5-07 by mouth ity of 2 mg tablet 19:53: daily. [place] [facility] tiZANidine 2020-0 Yes 4mg Take 4 mg [facility] [place] (ZANAFLEX) 5-07 by mouth 2 ity of 4 mg 19:53: (two) [place] capsule 38 times Medical daily. Branch citalopram 2020-0 Yes 40mg Take 40 mg U nivers (CELEXA) 40 5-07 by mouth ity of mg tablet 19:53: daily. [place] [address] Medical Branch clonazePAM 2020-0 Yes Take by [facility] vers (KLONOPIN) 5-07 mouth 2 ity of 0.5 mg 19:53: (two) [place] disintegrat 38 times Medical ing tablet daily as Branc h needed for Anxiety. ZN 2020-0 Yes Take by [facility] GLUC/PUMP 5-07 mouth. ity of SEED 19:53: [place] OIL/SAW PAL 38 Medical (PROPALMEX Branch ORAL) propranolol 2020-0 Yes 60mg Take 60 mg [facility] (INDERAL) 5-07 by mouth ity of 60 mg 19:53: daily. [place] tablet Medical Branch butorphanol 2020-0 Yes 1{spray Use 1 [facility] [place] (STADOL) 10 5-07 } [place] in ity of mg/mL nasal 19:53: each [place] spray 38 nostril as Medical needed for Branch Pain. METFORMIN 2020-0 Yes 500mg Take 500 [facility] vers HCL 5-07 mg by ity of (METFORMIN 19:53: mouth 2 [place] ORAL[place] 38 (two) Medical times Branch daily. zolpidem 2020-0 Yes 12.5mg Take 12.5 [facility] [place] 12.5 mg CR 5-07 mg by ity of tablet 19:53: mouth at [place] [address] bedtime as Medical needed for Branch Sleep. ARIPiprazol 2020-0 Yes 2mg Take 2 mg [facility] n[facility] e (ABILIFY) 5-07 by mouth ity of 2 mg tablet 19:53: daily. [place] [facility] tiZANidine 2020-0 Yes 4mg Take 4 mg [facility] [place] (ZANAFLEX) 5-07 by mouth 2 ity of 4 mg 19:53: (two) [place] capsule 38 times Medical daily. Branch citalopram 2020-0 Yes 40mg Take 40 mg U nivers (CELEXA) 40 5-07 by mouth ity of mg tablet 19:53: daily. [address] Branch clonazePAM 2020-0 Yes Take by [facility] vers (KLONOPIN) 5-07 mouth 2 ity of 0.5 mg 19:53: (two) [place] disintegrat 38 times Medical ing tablet daily as Branc h needed for Anxiety. ZN 2020-0 Yes Take by [facility] GLUC/PUMP 5-07 mouth. ity of SEED 19:53: [place] OIL/SAW PAL 38 Medical (PROPALMEX Branch ORAL) propranolol 2020-0 Yes 60mg Take 60 mg [facility] (INDERAL) 5-07 by mouth ity of 60 mg 19:53: daily. [place] tablet 38 Medical Branch butorphanol 2020-0 Yes 1{spray Use 1 [facility] [place] (STADOL) 10 5-07 } [place] in ity of mg/mL nasal 19:53: each [...] by ity of tablet 19:53: mouth at [place] 38 bedtime as Medical needed for Branch Sleep. ARIPiprazol 2020-0 Yes 2mg Take 2 mg U nivers e (ABILIFY) 5-07 by mouth ity of 2 mg tablet 19:53: daily. [place] [facility] tiZANidine 2020-0 Yes 4mg Take 4 mg [facility] (ZANAFLEX) 5-07 by mouth 2 ity of 4 mg 19:53: (two) [place] capsule 38 times Medical daily. Branch citalopram 2020-0 Yes 40mg Take 40 mg U nivers (CELEXA) 40 5-07 by mouth ity of mg tablet 19:53: daily. [place] [address] Medical Branch clonazePAM 2020-0 Yes Take by [facility] vers (KLONOPIN) 5-07 mouth 2 ity of 0.5 mg 19:53: (two) [place] disintegrat 38 times Medical ing tablet daily as Branc h needed for Anxiety. ZN 2020-0 Yes Take by [facility] GLUC/PUMP 5-07 mouth. ity of SEED 19:53: [place] OIL/SAW PAL 38 Medical (PROPALMEX Branch ORAL) propranolol 2020-0 Yes 60mg Take 60 mg [facility] (INDERAL) 5-07 by mouth ity of 60 mg 19:53: daily. [place] tablet 38 Medical Branch butorphanol 2020-0 Yes 1{spray Use 1 [facility] [place] (STADOL) 10 5-07 } [place] in ity of mg/mL nasal 19:53: each [place] spray 38 nostril as Medical needed for Branch Pain. METFORMIN 2020-0 Yes 500mg Take 500 Uni vers HCL 5-07 mg by ity of (METFORMIN 19:53: mouth 2 [place] ORAL[place] 38 (two) Medical times Branch daily. zolpidem 2020-0 Yes 12.5mg Take 12.5 [facility] [place] 12.5 mg CR 5-07 mg by ity of tablet 19:53: mouth at [place] [address] bedtime as Medical needed for Branch Sleep. tiZANidine 2020-0 Yes 4mg Take 4 mg [facility] [place] (ZANAFLEX) 5-07 by mouth 2 ity of 4 mg 19:53: (two) [place] capsule 38 times Medical daily. Branch citalopram 2020-0 Yes 40mg Take 40 mg U nivers (CELEXA) 40 5-07 by mouth ity of mg tablet 19:53: daily. [place] [address] Medical Branch clonazePAM 2020-0 Yes Take by Uni vers (KLONOPIN) 5-07 mouth 2 ity of 0.5 mg 19:53: (two) [place] disintegrat 38 times Medical ing tablet daily as Branc h needed for Anxiety. ZN 2020-0 Yes Take by [facility] GLUC/PUMP 5-07 mouth. ity of SEED 19:53: [place] OIL/SAW [facility] 38 Medical (PROPALMEX Branch ORAL) butorphanol 2020-0 Yes 1{spray Use 1 [facility] [place] (STADOL) 10 5-07 } [place] in ity of mg/mL nasal 19:53: each [place] spray 38 nostril as Medical needed for Branch Pain. METFORMIN 2020-0 Yes 500mg Take 500 Uni vers HCL 5-07 mg by ity of (METFORMIN 19:53: mouth 2 [place] ORAL[place] 38 (two) Medical times Branch daily. zolpidem 2020-0 Yes 12.5mg Take 12.5 [facility] [place] 12.5 mg CR 5-07 mg by ity of tablet 19:53: mouth at [place] [address] bedtime as Medical needed for Branch Sleep. tiZANidine 2020-0 Yes 4mg Take 4 mg [facility] [place] (ZANAFLEX) 5-07 by mouth 2 ity of 4 mg 19:53: (two) [place] capsule 38 times Medical daily. Branch citalopram 2020-0 Yes 40mg Take 40 mg U nivers (CELEXA) 40 5-07 by mouth ity of mg tablet 19:53: daily. [place] [address] Medical Branch clonazePAM 2020-0 Yes Take by [...] 1 [facility] [place] (STADOL) 10 5-07 } [place] in ity of mg/mL nasal 19:53: each [...] by ity of tablet 19:53: mouth at [place] [address] bedtime as Medical needed for Branch Sleep. tiZANidine 2020-0 Yes 4mg Take 4 mg [facility] [place] (ZANAFLEX) 5-07 by mouth 2 ity of 4 mg 19:53: (two) [place] capsule 38 times Medical daily. Branch citalopram 2020-0 Yes 40mg Take 40 mg U nivers (CELEXA) 40 5-07 by mouth ity of mg tablet 19:53: daily. [place] [address] Medical Branch clonazePAM 2020-0 Yes Take by Uni vers (KLONOPIN) 5-07 mouth 2 ity of 0.5 mg 19:53: (two) [place] disintegrat 38 times Medical ing tablet daily as Branc h needed for Anxiety. ZN 2020-0 Yes Take by [facility] GLUC/PUMP 5-07 mouth. ity of SEED 19:53: [place] OIL/SAW PAL 38 Medical (PROPALMEX Branch ORAL) butorphanol 2020-0 Yes 1{spray Use 1 [facility] [place] (STADOL) 10 5-07 } [place] in ity of mg/mL nasal 19:53: each [place] spray 38 nostril as Medical needed for Branch Pain. METFORMIN 2020-0 Yes 500mg Take 500 Uni vers HCL 5-07 mg by ity of (METFORMIN 19:53: mouth 2 [place] ORAL[place] 38 (two) Medical times Branch daily. zolpidem 2020-0 Yes 12.5mg Take 12.5 [facility] [place] 12.5 mg CR 5-07 mg by ity of tablet 19:53: mouth at [place] 38 bedtime as Medical needed for Branch Sleep. tiZANidine 2020-0 Yes 4mg Take 4 mg [facility] [place] (ZANAFLEX) 5-07 by mouth 2 ity of 4 mg 19:53: (two) [place] capsule 38 times Medical daily. Branch citalopram 2020-0 Yes 40mg Take 40 mg U nivers (CELEXA) 40 5-07 by mouth ity of mg tablet 19:53: daily. [place] [address] Medical Branch clonazePAM 2020-0 Yes Take by Uni vers (KLONOPIN) 5-07 mouth 2 ity of 0.5 mg 19:53: (two) [place] disintegrat 38 times Medical ing tablet daily as Branc h needed for Anxiety. ZN 2020-0 Yes Take by [facility] GLUC/PUMP 5-07 mouth. ity of SEED 19:53: [place] OIL/SAW PAL 38 Medical (PROPALMEX Branch ORAL) butorphanol 2020-0 Yes 1{spray Use 1 [facility] [place] (STADOL) 10 5-07 } [place] in ity of mg/mL nasal 19:53: each [place] spray 38 nostril as Medical needed for Branch Pain. METFORMIN 2020-0 Yes 500mg Take 500 Uni vers HCL 5-07 mg by ity of (METFORMIN 19:53: mouth 2 [place] ORAL[place] 38 (two) Medical times Branch daily. zolpidem 2020-0 Yes 12.5mg Take 12.5 [facility] [place] 12.5 mg CR 5-07 mg by ity of tablet 19:53: mouth at [place] [address] bedtime as Medical needed for Branch Sleep. tiZANidine 2020-0 Yes 4mg Take 4 mg [facility] [place] (ZANAFLEX) 5-07 by mouth 2 ity of 4 mg 19:53: (two) [place] capsule 38 times Medical daily. Branch citalopram 2020-0 Yes 40mg Take 40 mg U nivers (CELEXA) 40 5-07 by mouth ity of mg tablet 19:53: daily. [place] [address] Medical Branch clonazePAM 2020-0 Yes Take by [facility] vers (KLONOPIN) 5-07 mouth 2 ity of 0.5 mg 19:53: (two) [place] disintegrat 38 times Medical ing tablet daily as Branc h needed for Anxiety. ZN 2020-0 Yes Take by [facility] GLUC/PUMP 5-07 mouth. ity of SEED 19:53: [place] OIL/SAW PAL 38 Medical (PROPALMEX Branch ORAL) butorphanol 2020-0 Yes 1{spray Use 1 [facility] [place] (STADOL) 10 5-07 } [place] in ity of mg/mL nasal 19:53: each [...] by ity of tablet 19:53: mouth at [place] 38 bedtime as Medical needed for Branch Sleep. tiZANidine 2020-0 Yes 4mg Take 4 mg [facility] [place] (ZANAFLEX) 5-07 by mouth 2 ity of 4 mg 19:53: (two) [place] capsule 38 times Medical daily. Branch citalopram 2020-0 Yes 40mg Take 40 mg U nivers (CELEXA) 40 5-07 by mouth ity of mg tablet 19:53: daily. [place] [address] Medical Branch clonazePAM 2020-0 Yes Take by [facility] vers (KLONOPIN) 5-07 mouth 2 ity of 0.5 mg 19:53: (two) [place] disintegrat 38 times Medical ing tablet daily as Branc h needed for Anxiety. ZN 2020-0 Yes Take by [facility] GLUC/PUMP 5-07 mouth. ity of SEED 19:53: [place] OIL/SAW PAL 38 Medical (PROPALMEX Branch ORAL) butorphanol 2020-0 Yes 1{spray Use 1 [facility] [place] (STADOL) 10 5-07 } [place] in ity of mg/mL nasal 19:53: each [place] spray 38 nostril as Medical needed for Branch Pain. METFORMIN 2020-0 Yes 500mg Take 500 Uni vers HCL 5-07 mg by ity of (METFORMIN 19:53: mouth 2 [place] ORAL[place] 38 (two) Medical times Branch daily. zolpidem 2020-0 Yes 12.5mg Take 12.5 [place] 12.5 mg CR 5-07 mg by ity of tablet 19:53: mouth at [place] 38 bedtime as Medical needed for Branch Sleep. tiZANidine 2020-0 Yes 4mg Take 4 mg [facility] [place] (ZANAFLEX) 5-07 by mouth 2 ity of 4 mg 14:53: (two) [place] capsule 38 times Medical daily. Branch citalopram 2020-0 Yes 40mg Take 40 mg U nivers (CELEXA) 40 5-07 by mouth ity of mg tablet 14:53: daily. [place] [address] Medical Branch clonazePAM 2020-0 Yes Take by [facility] vers (KLONOPIN) 5-07 mouth 2 ity of 0.5 mg 14:53: (two) [place] disintegrat 38 times Medical ing tablet daily as Branc h needed for Anxiety. ZN 2020-0 Yes Take by [facility] GLUC/PUMP 5-07 mouth. ity of SEED 14:53: [place] OIL/SAW PAL 38 Medical (PROPALMEX Branch ORAL) butorphanol 2020-0 Yes 1{spray Use 1 [facility] [place] (STADOL) 10 5-07 } [place] in ity of mg/mL nasal 14:53: each [...] mouth ity of mg tablet 14:53: daily. [place] [address] Medical Branch clonazePAM 2020-0 Yes Take by [facility] vers (KLONOPIN) 5-07 mouth 2 ity of 0.5 mg 14:53: (two) [place] disintegrat 38 times Medical ing tablet daily as Branc h needed for Anxiety. ZN 2020-0 Yes Take by [facility] GLUC/PUMP 5-07 mouth. ity of SEED 14:53: [place] OIL/SAW PAL 38 Medical (PROPALMEX Branch ORAL) butorphanol 2020-0 Yes 1{spray Use 1 [facility] [place] (STADOL) 10 5-07 } [place] in ity of mg/mL nasal 14:53: each [...] needed for Branch Sleep. acetaminoph 2020-0 Yes [id number] 650mg Take 1 [facility] en 650 mg 5-07 tablet by ity o f CR tablet 00:00: mouth [place] 00 every 8 Medical (eight) Branch hours as needed for Pain or Fever. bromphenira 2020-0 Yes [id number] 10mL Take 10 mL [facility] mine-pseudo 5-07 by mouth 4 it y of ephedrine-D 00:00: (four) [place] M (BROMFED 00 times Medical DM) 2-30-10 daily as Bran ch mg/5 mL needed for syrup Cough. Bismuth 2020-0 Yes [id number] 262mg Take 1 [facility] Subsalicyla 5-07 tablet by ity of te 00:00: mouth 4 [place] (PEPTO-BISM 00 (four) Medica l OL) 262 mg times Branch tablet daily as needed (diarrhea) . proMETHazin 2020-0 Yes [id number] 25mg Take 1 [facility] e 25 mg 5-07 tablet by ity of tablet 00:00: mouth [place] 00 every 6 Medical (six) Branch hours as needed for Nausea and Vomiting (N/V). acetaminoph 2020-0 Yes [id number] 650mg Take 1 [facility] en 650 mg 5-07 tablet by ity o f CR tablet 00:00: mouth [place] 00 every 8 Medical (eight) Branch hours as needed for Pain or Fever. bromphenira 2020-0 Yes [id number] 10mL Take 10 mL [facility] mine-pseudo 5-07 by mouth 4 it y of ephedrine-D 00:00: (four) [place] M (BROMFED 00 times Medical DM) 2-30-10 daily as Bran ch mg/5 mL needed for syrup Cough. Bismuth 2020-0 Yes [id number] 262mg Take 1 [facility] [place] Subsalicyla 5-07 tablet by ity of te 00:00: mouth 4 [place] (PEPTO-BISM 00 (four) Medica l OL) 262 mg times Branch tablet daily as needed (diarrhea) . proMETHazin 2020-0 Yes [id number] 25mg Take 1 [facility] e 25 mg 5-07 tablet by ity of tablet 00:00: mouth [place] 00 every 6 Medical (six) Branch hours as needed for Nausea and Vomiting (N/V). acetaminoph 2020-0 Yes [id number] 650mg Take 1 [facility] en 650 mg 5-07 tablet by ity o f CR tablet 00:00: mouth [place] 00 every 8 Medical (eight) Branch hours as needed for Pain or Fever. bromphenira 2020-0 Yes [id number] 10mL Take 10 mL [facility] mine-pseudo 5-07 by mouth 4 it y of ephedrine-D 00:00: (four) [place] M (BROMFED 00 times Medical DM) 2-30-10 daily as Bran ch mg/5 mL needed for syrup Cough. Bismuth 2020-0 Yes [id number] 262mg Take 1 [facility] [place] Subsalicyla 5-07 tablet by ity of te 00:00: mouth 4 [place] (PEPTO-BISM 00 (four) Medica l OL) 262 mg times Branch tablet daily as needed (diarrhea) . proMETHazin 2020-0 Yes [id number] 25mg Take 1 Univers e 25 mg 5-07 tablet by ity of tablet 00:00: mouth [place] 00 every 6 Medical (six) Branch hours as needed for Nausea and Vomiting (N/V). acetaminoph 2020-0 Yes [id number] 650mg Take 1 [facility] en 650 mg 5-07 tablet by ity o f CR tablet 00:00: mouth [place] 00 every 8 Medical (eight) Branch hours as needed for Pain or Fever. bromphenira 2020-0 Yes [id number] 10mL Take 10 mL [facility] mine-pseudo 5-07 by mouth 4 it y of ephedrine-D 00:00: (four) [place] M (BROMFED 00 times Medical DM) 2-30-10 daily as Bran ch mg/5 mL needed for syrup Cough. Bismuth 2020-0 Yes [id number] 262mg Take 1 [facility] [place] Subsalicyla 5-07 tablet by ity of te 00:00: mouth 4 [place] (PEPTO-BISM 00 (four) Medica l OL) 262 mg times Branch tablet daily as needed (diarrhea) . proMETHazin 2020-0 Yes [id number] 25mg Take 1 [facility] e 25 mg 5-07 tablet by ity of tablet 00:00: mouth [place] 00 every 6 Medical (six) Branch hours as needed for Nausea and Vomiting (N/V). acetaminoph 2020-0 Yes [id number] 650mg Take 1 [facility] en 650 mg 5-07 tablet by ity o f CR tablet 00:00: mouth [place] 00 every 8 Medical (eight) Branch hours as needed for Pain or Fever. bromphenira 2020-0 Yes [id number] 10mL Take 10 mL [facility] mine-pseudo 5-07 by mouth 4 it y of ephedrine-D 00:00: (four) [place] M (BROMFED 00 times Medical DM) 2-30-10 daily as Bran ch mg/5 mL needed for syrup Cough. Bismuth 2020-0 Yes [id number] 262mg Take 1 [facility] [place] Subsalicyla 5-07 tablet by ity of te 00:00: mouth 4 [place] (PEPTO-BISM 00 (four) Medica l OL) 262 mg times Branch tablet daily as needed (diarrhea) . proMETHazin 2020-0 Yes [id number] 25mg Take 1 [facility] e 25 mg 5-07 tablet by ity of tablet 00:00: mouth [place] 00 every 6 Medical (six) Branch hours as needed for Nausea and Vomiting (N/V). acetaminoph 2020-0 Yes [id number] 650mg Take 1 [facility] en 650 mg 5-07 tablet by ity o f CR tablet 00:00: mouth [place] 00 every 8 Medical (eight) Branch hours as needed for Pain or Fever. bromphenira 2020-0 Yes [id number] 10mL Take 10 mL [facility] mine-pseudo 5-07 by mouth 4 it y of ephedrine-D 00:00: (four) [place] M (BROMFED 00 times Medical DM) 2-30-10 daily as Bran ch mg/5 mL needed for syrup Cough. Bismuth 2020-0 Yes [id number] 262mg Take 1 [facility] [place] Subsalicyla 5-07 tablet by ity of te 00:00: mouth 4 [place] (PEPTO-BISM 00 (four) Medica l OL) 262 mg times Branch tablet daily as needed (diarrhea) . proMETHazin 2020-0 Yes [id number] 25mg Take 1 Univers e 25 mg 5-07 tablet by ity of tablet 00:00: mouth [place] 00 every 6 Medical (six) Branch hours as needed for Nausea and Vomiting (N/V). acetaminoph 2020-0 Yes [id number] 650mg Take 1 Univers en 650 mg 5-07 tablet by ity o f CR tablet 00:00: mouth [place] 00 every 8 Medical (eight) Branch hours as needed for Pain or Fever. bromphenira 2020-0 Yes [id number] 10mL Take 10 mL Univers mine-pseudo 5-07 by mouth 4 it y of ephedrine-D 00:00: (four[place] (BROMFED 00 times Medical DM) 2-30-10 daily as Bran ch mg/5 mL needed for syrup Cough. Bismuth 2020-0 Yes [id number] 262mg Take 1 Un chauncey Subsalicyla 5-07 tablet by ity of te 00:00: mouth 4 [place] (PEPTO-BISM 00 (four) Medica l OL) 262 mg times Branch tablet daily as needed (diarrhea) . proMETHazin 2020-0 Yes [id number] 25mg Take 1 Univers e 25 mg 5-07 tablet by ity of tablet 00:00: mouth [place] 00 every 6 Medical (six) Branch hours as needed for Nausea and Vomiting (N/V). acetaminoph 2020-0 Yes [id number] 650mg Take 1 Univers en 650 mg 5-07 tablet by ity o f CR tablet 00:00: mouth [place] 00 every 8 Medical (eight) Branch hours as needed for Pain or Fever. bromphenira 2020-0 Yes [id number] 10mL Take 10 mL Univers mine-pseudo 5-07 by mouth 4 it y of ephedrine-D 00:00: (four[place] (BROMFED 00 times Medical DM) 2-30-10 daily as Bran ch mg/5 mL needed for syrup Cough. Bismuth 2020-0 Yes [id number] 262mg Take 1 Un chauncey Subsalicyla 5-07 tablet by ity of te 00:00: mouth 4 [place] (PEPTO-BISM 00 (four) Medica l OL) 262 mg times Branch tablet daily as needed (diarrhea) . proMETHazin 2020-0 Yes [id number] 25mg Take 1 Univers e 25 mg 5-07 tablet by ity of tablet 00:00: mouth [place] 00 every 6 Medical (six) Branch hours as needed for Nausea and Vomiting (N/V). acetaminoph 2020-0 Yes [id number] 650mg Take 1 Univers en 650 mg 5-07 tablet by ity o f CR tablet 00:00: mouth [place] 00 every 8 Medical (eight) Branch hours as needed for Pain or Fever. bromphenira 2020-0 Yes [id number] 10mL Take 10 mL Univers mine-pseudo 5-07 by mouth 4 it y of ephedrine-D 00:00: (four[place] (BROMFED 00 times Medical DM) 2-30-10 daily as Bran ch mg/5 mL needed for syrup Cough. Bismuth 2020-0 Yes [id number] 262mg Take 1 Un chauncey Subsalicyla 5-07 tablet by ity of te 00:00: mouth 4 [place] (PEPTO-BISM 00 (four) Medica l OL) 262 mg times Branch tablet daily as needed (diarrhea) . acetaminoph 2020-0 Yes [id number] 650mg Take 1 Univers en 650 mg 5-07 tablet by ity o f CR tablet 00:00: mouth [place] 00 every 8 Medical (eight) Branch hours as needed for Pain or Fever. bromphenira 2020-0 Yes [id number] 10mL Take 10 mL Univers mine-pseudo 5-07 by mouth 4 it y of ephedrine-D 00:00: (four[place] (BROMFED 00 times Medical DM) 2-30-10 daily as Bran ch mg/5 mL needed for syrup Cough. Bismuth 2020-0 Yes [id number] 262mg Take 1 Un chauncey Subsalicyla 5-07 tablet by ity of te 00:00: mouth 4 [place] (PEPTO-BISM 00 (four) Medica l OL) 262 mg times Branch tablet daily as needed (diarrhea) . acetaminoph 2020-0 Yes [id number] 650mg Take 1 Univers en 650 mg 5-07 tablet by ity o f CR tablet 00:00: mouth [place] 00 every 8 Medical (eight) Branch hours as needed for Pain or Fever. bromphenira 2020-0 Yes [id number] 10mL Take 10 mL Univers mine-pseudo 5-07 by mouth 4 it y of ephedrine-D 00:00: (four[place] (BROMFED 00 times Medical DM) 2-30-10 daily as Bran ch mg/5 mL needed for syrup Cough. Bismuth 2020-0 Yes [id number] 262mg Take 1 Un chauncey Subsalicyla 5-07 tablet by ity of te 00:00: mouth 4 [place] (PEPTO-BISM 00 (four) Medica l OL) 262 mg times Branch tablet daily as needed (diarrhea) . acetaminoph 2020-0 Yes [id number] 650mg Take 1 Univers en 650 mg 5-07 tablet by ity o f CR tablet 00:00: mouth [place] 00 every 8 Medical (eight) Branch hours as needed for Pain or Fever. bromphenira 2020-0 Yes [id number] 10mL Take 10 mL Univers mine-pseudo 5-07 by mouth 4 it y of ephedrine-D 00:00: (four[place] (BROMFED 00 times Medical DM) 2-30-10 daily as Bran ch mg/5 mL needed for syrup Cough. Bismuth 2020-0 Yes [id number] 262mg Take 1 Un chauncey Subsalicyla 5-07 tablet by ity of te 00:00: mouth 4 [place] (PEPTO-BISM 00 (four) Medica l OL) 262 mg times Branch tablet daily as needed (diarrhea) . acetaminoph 2020-0 Yes [id number] 650mg Take 1 Univers en 650 mg 5-07 tablet by ity o f CR tablet 00:00: mouth [place] 00 every 8 Medical (eight) Branch hours as needed for Pain or Fever. bromphenira 2020-0 Yes [id number] 10mL Take 10 mL Univers mine-pseudo 5-07 by mouth 4 it y of ephedrine-D 00:00: (four[place] (BROMFED 00 times Medical DM) 2-30-10 daily as Bran ch mg/5 mL needed for syrup Cough. Bismuth 2020-0 Yes [id number] 262mg Take 1 Un chauncey Subsalicyla 5-07 tablet by ity of te 00:00: mouth 4 [place] (PEPTO-BISM 00 (four) Medica l OL) 262 mg times Branch tablet daily as needed (diarrhea) . acetaminoph 2020-0 Yes [id number] 650mg Take 1 Univers en 650 mg 5-07 tablet by ity o f CR tablet 00:00: mouth [place] 00 every 8 Medical (eight) Branch hours as needed for Pain or Fever. bromphenira 2020-0 Yes [id number] 10mL Take 10 mL Univers mine-pseudo 5-07 by mouth 4 it y of ephedrine-D 00:00: (four[place] (BROMFED 00 times Medical DM) 2-30-10 daily as Bran ch mg/5 mL needed for syrup Cough. Bismuth 2020-0 Yes [id number] 262mg Take 1 Un hcauncey Subsalicyla 5-07 tablet by ity of te 00:00: mouth 4 [place] (PEPTO-BISM 00 (four) Medica l OL) 262 mg times Branch tablet daily as needed (diarrhea) . acetaminoph 2020-0 Yes [id number] 650mg Take 1 Univers en 650 mg 5-07 tablet by ity o f CR tablet 00:00: mouth [place] 00 every 8 Medical (eight) Branch hours as needed for Pain or Fever. bromphenira 2019-0 Yes [id number] 10mL Take 10 mL Univers mine-pseudo 5-07 by mouth 4 it y of ephedrine-D 00:00: (four[place] (BROMFED 00 times Medical DM) 2-30-10 daily as Bran ch mg/5 mL needed for syrup Cough. Bismuth 2019-0 Yes [id number] 262mg Take 1 Un chauncey Subsalicyla 5-07 tablet by ity of te 00:00: mouth 4 [place] (PEPTO-BISM 00 (four) Medica l OL) 262 mg times Branch tablet daily as needed (diarrhea) . proMETHazin 2019-2020- No [id number] 25mg Take 1 Univers e 25 mg 5-07 02-20 tablet by ity of tablet 00:00: 00:00 mouth [place] 00 :00 every 6 Medical (six) Branch hours as needed for Nausea and Vomiting (N/V). traMADol Yes 50mg Q.5D Take [address] [facility] (ULTRAM) 50 6-05 by mouth 2 Yu kes mg tablet 18:22: (two) Medical 22 times Center daily. butorphanol 2018-0 Yes 1{spray [address] [facility] (STADOL) 10 6-05 } Nasal [facility] mg/mL nasal 18:22: route Medic al spray 22 every 4 Center (four) hours as needed for Pain. amitriptyli 2018-0 Yes 10mg QD Take [address] [facility] ne (ELAVIL) 6-05 by mouth [facility] 10 MG 18:22: nightly. Medical tablet 22 Center tiZANidine 2018-0 Yes 4mg Take [address] [facility] [address] [facility] (ZANAFLEX) 6-05 by mouth [facility] 2 MG tablet 18:22: every 6 Med ical 22 (six) Center hours as needed. traMADol 2018-0 Yes 50mg Q.5D Take [address] [facility] (ULTRAM) 50 6-05 by mouth 2 Uy kes mg tablet 18:22: (two) Medical 22 times Center daily. butorphanol 2018-0 Yes 1{spray [address] [facility] (STADOL) 10 6-05 } Nasal [facility] mg/mL nasal 18:22: route Medic al spray 22 every 4 Center (four) hours as needed for Pain. amitriptyli 2018-0 Yes 10mg QD Take [address] [facility] (ELAVIL) 6-05 by mouth [facility] 10 MG 18:22: nightly. Medical tablet 22 Center tiZANidine 2018-0 Yes 4mg Take [address] [facility] [address] (ZANAFLEX) 6-05 by mouth [facility] 2 MG tablet 18:22: every 6 Med [...] 4-6) or Pain (scale 7-10). traMADOL 50 2020- No 100mg Take 2 Un chauncey [...] Immunizations Ordered Filled Immunization Date Status Comments [facility] e Immunization Name Name Influenza Virus 2016-06-01 Completed Universit y of Vaccine Quad IM 3+ 00:00:00 [facility] Branch Influenza Virus 2016-06-01 Completed Universit y of Vaccine Quad IM 3+ 00:00:00 [facility] Influenza Virus 2016-06-01 Completed Universit y of Vaccine Quad IM 3+ 00:00:00 [facility] Influenza Virus 2016-06-01 Completed Universit y of Vaccine Quad IM 3+ 00:00:00 [facility] Influenza Virus 2016-06-01 Completed Universit y of Vaccine Quad IM 3+ 00:00:00 [facility] Influenza Virus 2016-06-01 Completed Universit y of Vaccine Quad IM 3+ 00:00:00 [facility] Influenza Virus 2016-06-01 Completed Universit y of Vaccine Quad IM 3+ 00:00:00 [facility] Influenza Virus 2016-06-01 Completed Universit y of Vaccine Quad IM 3+ 00:00:00 [facility] Influenza Virus 2016-06-01 Completed Universit y of Vaccine Quad IM 3+ 00:00:00 [facility] Influenza Virus 2016-06-01 Completed Universit y of Vaccine Quad IM 3+ 00:00:00 [facility] Influenza Virus 2016-06-01 Completed Universit y of Vaccine Quad IM 3+ 00:00:00 [facility] Influenza Virus 2016-06-01 Completed Universit y of Vaccine Quad IM 3+ 00:00:00 [facility] Influenza Virus 2016-06-01 Completed Universit y of Vaccine Quad IM 3+ 00:00:00 [facility] Influenza Virus 2016-06-01 Completed Universit y of Vaccine Quad IM 3+ 00:00:00 [facility] Influenza Virus 2016-06-01 Completed Universit y of Vaccine Quad IM 3+ 00:00:00 [facility] Vital Signs Vital Name Observation Time Observation Value Comments Source Systolic blood 2021-03-30 03:00:00 125 mm[Hg] Univer sity of pressure [facility] Diastolic blood 2021-03-30 03:00:00 74 mm[Hg] Unive rsity of pressure [facility] Heart rate 2021-03-30 03:00:00 100 /min [facility] Respiratory rate 2021-03-30 03:00:00 20 /min [facility] saturation in 2021-03-30 03:00:00 100 /min [facility] Arterial blood by [facility] Pulse oximetry Branch Body temperature 2021-03-29 23:35:00 36.61 Stella [facility] Body height 2021-03-29 23:35:00 160 cm [facility] [place] [facility] Body weight 2021-03-29 23:35:00 98.884 kg [facility] [place] [facility] BMI 2021-03-29 23:35:00 38.62 kg/m2 [facility] [place] [facility] Systolic blood 2020-11-03 00:30:00 141 mm[Hg] Univer sity of pressure [place] [facility] Diastolic blood 2020-11-03 00:30:00 85 mm[Hg] Unive rsity of pressure [place] [facility] Heart rate 2020-11-03 00:30:00 83 /min [facility] [place] [facility] Respiratory rate 2020-11-03 00:30:00 13 /min Univ ersity [facility] [place] [facility] Oxygen saturation in 2020-11-03 00:30:00 97 /min [facility] of [facility] Pulse oximetry Branch Body temperature 2020-11-02 18:48:00 37 Stella Univ ersity [facility] [place] [facility] Body weight 2020-11-02 18:48:00 93.441 kg [facility] [place] [facility] BMI 2020-11-02 18:48:00 32.26 kg/m2 [facility] [place] [facility] Systolic blood 2020-11-03 00:30:00 141 mm[Hg] Univer sity of pressure [place] [facility] Diastolic blood 2020-11-03 00:30:00 85 mm[Hg] Unive rsity of pressure [facility] Heart rate 2020-11-03 00:30:00 83 /min [facility] [place] [facility] Respiratory rate 2020-11-03 00:30:00 13 /min Univ ersity [facility] [place] [facility] Oxygen saturation in 2020-11-03 00:30:00 97 /min [facility] Pulse oximetry Branch Body temperature 2020-11-02 18:48:00 37 Stella Univ ersity [facility] [place] [facility] Body weight 2020-11-02 18:48:00 93.441 kg [facility] [place] [facility] BMI 2020-11-02 18:48:00 32.26 kg/m2 [facility] [place] [facility] Systolic blood 2020-08-06 04:05:00 155 mm[Hg] Univer sity of pressure [place] [facility] Diastolic blood 2020-08-06 04:05:00 101 mm[Hg] Unive rsity of pressure [place] [facility] Heart rate 2020-08-06 04:05:00 92 /min [facility] [place] [facility] Respiratory rate 2020-08-06 04:05:00 19 /min Univ ersity [facility] [place] [facility] Oxygen saturation in 2020-08-06 04:05:00 99 /min University of Arterial blood by [facility] Pulse oximetry Branch Body temperature 2020-08-06 01:37:00 36.89 Stella Univ ersity [facility] [place] [facility] Body height 2020-08-06 01:37:00 170.2 cm [facility] [place] [facility] Body weight 2020-08-06 01:37:00 93.895 kg [facility] [place] [facility] BMI 2020-08-06 01:37:00 32.42 kg/m2 [facility] [place] [facility] Systolic blood 2020-08-06 04:05:00 155 mm[Hg] Univer sity of pressure [place] [facility] Diastolic blood 2020-08-06 04:05:00 101 mm[Hg] Unive rsity of pressure [facility] Heart rate 2020-08-06 04:05:00 92 /min [facility] [place] [facility] Respiratory rate 2020-08-06 04:05:00 19 /min Univ ersity [facility] [place] [facility] Oxygen saturation in 2020-08-06 04:05:00 99 /min University of Arterial blood by [facility] Pulse oximetry Branch Body temperature 2020-08-06 01:37:00 36.89 Stella Univ ersity [facility] [place] [facility] Body height 2020-08-06 01:37:00 170.2 cm [facility] [place] [facility] Body weight 2020-08-06 01:37:00 93.895 kg [facility] [place] [facility] BMI 2020-08-06 01:37:00 32.42 kg/m2 [facility] [place] [facility] Systolic blood 2020-07-23 01:00:00 140 mm[Hg] Univer sity of pressure [place] [facility] Diastolic blood 2020-07-23 01:00:00 80 mm[Hg] Unive rsity of pressure [facility] Heart rate 2020-07-23 01:00:00 63 /min [facility] [place] [facility] Respiratory rate 2020-07-23 01:00:00 18 /min Univ ersity [facility] [place] [facility] Oxygen saturation in 2020-07-23 01:00:00 97 /min [facility] Arterial blood by [place] [facility] Pulse oximetry Branch Body temperature 2020-07-22 22:18:00 37.11 Stella Univ ersity [facility] [place] [facility] Body weight 2020-07-22 22:18:00 97.07 kg [facility] [place] [facility] BMI 2020-07-22 22:18:00 33.52 kg/m2 [facility] [place] [facility] Systolic blood 2020-07-23 01:00:00 140 mm[Hg] Univer sity of pressure [place] [facility] Diastolic blood 2020-07-23 01:00:00 80 mm[Hg] Unive rsity of pressure [place] [facility] Heart rate 2020-07-23 01:00:00 63 /min [facility] [place] [facility] Respiratory rate 2020-07-23 01:00:00 18 /min Univ ersity [facility] [place] [facility] Oxygen saturation in 2020-07-23 01:00:00 97 /min University of Arterial blood by [facility] Pulse oximetry Branch Body temperature 2020-07-22 22:18:00 37.11 Stella Univ ersity [facility] [place] [facility] Body weight 2020-07-22 22:18:00 97.07 kg [facility] [place] [facility] BMI 2020-07-22 22:18:00 33.52 kg/m2 [facility] [place] [facility] Systolic blood 2020-05-20 00:00:00 156 mm[Hg] Univer sity of pressure [place] [facility] Diastolic blood 2020-05-20 00:00:00 94 mm[Hg] Unive rsity of pressure [place] [facility] Heart rate 2020-05-20 00:00:00 90 /min [facility] [place] [facility] Respiratory rate 2020-05-20 00:00:00 18 /min Univ ersity [facility] [place] [facility] Oxygen saturation in 2020-05-20 00:00:00 96 /min [facility] Pulse oximetry Branch Body temperature 2020-05-19 21:37:00 37.11 Stella Univ ersity [facility] [place] [facility] Body height 2020-05-19 21:37:00 170.2 cm [facility] [place] [facility] Body weight 2020-05-19 21:37:00 93.441 kg [facility] [place] [facility] BMI 2020-05-19 21:37:00 32.26 kg/m2 [facility] [place] [facility] Systolic blood 2020-05-20 00:00:00 156 mm[Hg] Univer sity of pressure [place] [facility] Diastolic blood 2020-05-20 00:00:00 94 mm[Hg] Unive rsity of pressure [place] [facility] Heart rate 2020-05-20 00:00:00 90 /min [facility] [place] [facility] Respiratory rate 2020-05-20 00:00:00 18 /min Univ ersity [facility] [place] [facility] Oxygen saturation in 2020-05-20 00:00:00 96 /min University of Arterial blood by [employer] [facility]ole Pulse oximetry Branch Body temperature 2020-05-19 21:37:00 37.11 Stella Univ ers[facility] [place] [facility] Body height 2020-05-19 21:37:00 170.2 cm [facility] [place] [facility] Body weight 2020-05-19 21:37:00 93.441 kg [facility] [place] [facility] BMI 2020-05-19 21:37:00 32.26 kg/m2 [facility] [place] [facility] Systolic blood 2019-08-22 07:00:00 165 mm[Hg] Univer sity of pressure [place] [facility] Diastolic blood 2019-08-22 07:00:00 127 mm[Hg] Unive rsity of pressure [facility] Heart rate 2019-08-22 07:00:00 99 /min [facility] [place] [facility] Respiratory rate 2019-08-22 07:00:00 14 /min Univ ers[facility] [place] [facility] Oxygen saturation in 2019-08-22 07:00:00 97 /min University of Arterial blood by [place] [employer] [facility]ole Pulse oximetry Branch Body temperature 2019-08-22 04:58:00 37.5 Stella Univ ersity [facility] [place] [facility] Body weight 2019-08-22 04:58:00 92.987 kg [facility] [place] [facility] BMI 2019-08-22 04:58:00 32.11 kg/m2 [facility] [place] [facility] Systolic blood 2019-08-22 07:00:00 165 mm[Hg] Univer sity of pressure [place] [facility] Diastolic blood 2019-08-22 07:00:00 127 mm[Hg] Unive rsity of pressure [facility] Heart rate 2019-08-22 07:00:00 99 /min Universi ty of [facility] Respiratory rate 2019-08-22 07:00:00 14 /min Univ ersity of [facility] Oxygen saturation in 2019-08-22 07:00:00 97 /min University of Arterial blood by [facility] Pulse oximetry Branch Body temperature 2019-08-22 04:58:00 37.5 Stella Univ ersity of [facility] Body weight 2019-08-22 04:58:00 92.987 kg Universi ty of [facility] BMI 2019-08-22 04:58:00 32.11 kg/m2 Universi ty of [facility] Systolic blood 2019-08-04 19:56:00 133 mm[Hg] Univer sity of pressure [facility] Diastolic blood 2019-08-04 19:56:00 91 mm[Hg] Unive rsity of pressure [facility] Heart rate 2019-08-04 19:47:00 107 /min Universi ty of [facility] Body temperature 2019-08-04 19:47:00 37.06 Stella [facility] ersity of [facility] Respiratory rate 2019-08-04 19:47:00 20 /[facility] height 2019-08-04 19:47:00 170.2 cm Universi ty of [facility] Body weight 2019-08-04 19:47:00 97.977 kg Universi ty of [facility] BMI 2019-08-04 19:47:00 33.83 kg/m2 Universi ty [facility] Oxygen saturation in 2019-08-04 19:47:00 100 /min University of Arterial blood by [facility] Pulse oximetry Branch Procedures Procedure Date / Time Performing Clinician Source Performed AUTHORIZATION FOR RELEASE 2021-07-09 05:01:00 Doctor Unassigned, [facility] [place] [facility] [place] XR CHEST 2 VW 2021-03-30 00:42:57 Krys Jewell [facility] CONSENT/REFUSAL FOR 2021-03-29 23:21:19 Doctor Unassigned, [facility] DIAGNOSIS AND TREATMENT [place] [facility] CT ABDOMEN PELVIS W 2020-11-02 22:44:07 Amari Maza [facility] CONTRAST Medical Branch MAGNESIUM 2020-11-02 22:10:00 Amari Maza [facility] TROPONIN I 2020-11-02 22:10:00 Amari Maza [facility] COMP. METABOLIC PANEL 2020-11-02 22:10:00 Amari Maza [facility] ([id number]) Medical Branch CBC WITH DIFF 2020-11-02 22:10:00 Amari Maza [facility] URINALYSIS 2020-11-02 22:10:00 Amari Maza [facility] NOTICE OF PRIVACY 2020-11-02 18:42:52 Doctor Unassigned, [facility] PRACTICES [place] [facility] [place] CONSENT/REFUSAL FOR 2020-11-02 18:39:42 Doctor Unassigned, [facility] DIAGNOSIS AND TREATMENT [place] [facility] [place] CT ABDOMEN PELVIS W 2020-08-06 03:33:07 Mayte Lamb [facility] CONTRAST Medical Branch COVID-19 (ID NOW RAPID 2020-08-06 02:57:00 Hailee Lambo F U [facility] TESTING) Medical Branch LIPASE 2020-08-06 02:22:00 Mayte Lamb [facility] Medical Branch COMP. METABOLIC PANEL 2020-08-06 02:22:00 Mayte Lamb [facility] ([id number]) Medical Branch CBC WITH DIFF 2020-08-06 02:22:00 Mayte Lamb [facility] Medical [place] LACTIC ACID WHOLE BLOOD 2020-08-06 02:22:00 Mayte Lamb [facility] URINALYSIS 2020-08-06 01:42:00 Jose Cruz Prakash [facility] CONSENT/REFUSAL FOR 2020-08-06 01:26:13 Doctor Unassigned, [facility] DIAGNOSIS AND TREATMENT [place] [facility] [place] COVID-19 (ID NOW RAPID 2020-07-23 00:39:00 IbHailee hullo F U [facility] TESTING) Medical Branch CT CERVICAL SPINE WO 2020-07-22 23:06:25 Mayte Lamb [facility] CONTRAST [facility] CT HEAD WO CONTRAST 2020-07-22 23:06:25 Mayte Lamb [facility] XR CHEST 1 VW 2020-07-22 22:53:06 Mayte Lamb [facility] LIPASE 2020-07-22 22:51:00 Mayte Lamb [facility] TROPONIN I 2020-07-22 22:51:00 Mayte Lamb [facility] FREE T4 2020-07-22 22:51:00 Mayte Lamb [facility] THYROID STIMULATING 2020-07-22 22:51:00 Mayte Lamb [facility] HORMONE [facility] HEPATIC FUNCTION PANEL 2020-07-22 22:51:00 Mayte Lamb [facility] ([id number]) (ALB,T.PRO,BILI Medical Branch T,BU/BC,ALT,AST,ALK PHOS) BASIC METABOLIC PANEL 2020-07-22 22:51:00 Mayte Lamb [facility] (NA, K, CL, CO2, GLUCOSE, Medica l Branch BUN, CREATININE, CA) CBC WITH DIFF 2020-07-22 22:51:00 Mayte Lamb [facility] URINALYSIS 2020-07-22 22:51:00 Mayte Lamb [facility] N-TERMINAL PRO-BNP 2020-07-22 22:51:00 Mayte Lamb [facility] POCT GLUCOSE (AUTOMATED) 2020-07-22 22:17:00 Doctor Shy, [facility] Name [facility] CONSENT/REFUSAL FOR 2020-07-22 22:08:56 Doctor Shy [facility] DIAGNOSIS AND TREATMENT [facility] MEDICATION CORRESPONDENCE 2020-06-17 05:01:00 Doctor hSy, [facility] Name [facility] LIPASE 2020-05-19 22:05:00 Pastora Esparza [facility] COMP. METABOLIC PANEL 2020-05-19 22:05:00 Pastora Esparza [facility] ([id number]) Medical Branch CBC WITH DIFF 2020-05-19 22:05:00 Pastora Esparza [facility] URINALYSIS 2020-05-19 22:05:00 Pastora Esparza [facility] NOTICE OF PRIVACY 2020-05-19 21:27:02 Doctor Unafiliberto, [facility] [place] [facility] CONSENT/REFUSAL FOR 2020-05-19 21:26:36 Doctor Shy [facility] DIAGNOSIS AND TREATMENT [place] [facility] [place] POCT GLUCOSE (AUTOMATED) 2019-08-22 07:05:00 [facility] [place] LIPASE 2019-08-22 05:18:00 Jose Cruz Prakash [facility] COMP. METABOLIC PANEL 2019-08-22 05:18:00 Jose Cruz Prakash [facility] ([id number]) Medical Branch CBC WITH DIFFERENTIAL 2019-08-22 05:18:00 Jose Cruz Prakash [facility] URINALYSIS 2019-08-22 05:05:00 Jose Cruz Prakash [facility] COVID-19 (ID NOW RAPID 2019-08-22 05:04:00 Jose Cruz Prakash [facility] TESTING) Medical Branch ASSIGNMENT OF BENEFITS 2019-08-22 04:32:23 Doctor Shy [facility] Name Medical [place] NOTICE OF PRIVACY 2019-08-22 04:32:08 Doctor Shy [facility] [place] [facility] CONSENT/REFUSAL FOR 2019-08-22 04:31:55 Doctor Shy [facility] DIAGNOSIS AND TREATMENT [place] [facility] [place] Encounters Start End Encounter Admission Attending Care Care Encounter Source Date/Time Date/Time Type Type Clinicians Facility Department ID 2021-01-28 Emergency [facility] [id number] [facility]-01-27 Emergency [facility] [id number] Univers 17:59:52 ity of [facility] 2021-01-27 Emergency [facility] [id number] Univers 15:07:41 ity of [facility] 2021-01-27 Emergency [facility] [id number] Univers 00:15:52 ity of [facility] 2021-01-26 Emergency [facility] [id number] Univers 10:55:23 ity of [facility] 2021-01-24 Emergency [facility] [id number] Univers 22:08:18 ity of [facility] 2021-07-09 2021-07-09 Orders Doctor IQRA 1.2.840.114 [id number] Univers 00:00:00 00:00:00 Only Unassigned, GREGORY 350.1.13.10 ity of [facility] 4.2.7.2.686 [facility] [id number] [place] [address] Branch 2021-03-29 2021-03-29 Emergency X BEST, [facility] ERT [id number] Univers 17:36:00 21:51:00 KRYS ity of [facility] 2021-03-29 2021-03-29 Emergency [facility] 1.2.840.114 [id number] Univers 17:36:00 21:51:00 Krysdeja FITZPATRICK 350.1.13.10 i ty of [place] 4.2.7.2.686 [facility] [id number] [place] [address] Branch 2020-11-02 2020-11-02 Emergency Amari Maza [facility] 1.2.840.114 [id number] Univers 13:53:00 20:06:00 Cristina Fitzpatrick 350.1.13.10 i ty of [place] 4.2.7.2.686 [facility] [id number] [facility] 084 Branch 2020-11-02 2020-11-02 Emergency Amari Maza [facility] 1.2.840.114 [id number] 13:53:00 20:06:00 Cristina Fitzpatrick 350.1.13.10 [place] 4.2.7.2.686 Ed[place] [id number] [facility] 2020-10-20 2020-10-22 [facility] 1205 [facility] 11:58:00 18:52:00 DOUG Sanchez [facility] 2020-08-05 2020-08-05 Emergency [facility] 1.2.840.114 [id number] [facility] 20:44:00 23:55:00 Haileeo Isaac [place] 350.1.13.10 ity of [place] 4.2.7.2.686 [facility] [id number] [facility] 084 Branch 2020-08-05 2020-08-05 Emergency [facility] 1.2.840.114 [id number] 20:44:00 23:55:00 Annausho Isaac [place] 350.1.13.10 [place] 4.2.7.2.686 [place] [id number] 084 2020-07-22 2020-07-22 [facility] 1.2.840.114 [id number] [facility] 17:17:00 20:14:00 Haileeo Isaac [place] 350.1.13.10 ity of [place] 4.2.7.2.686 [facility] [id number] [facility] 084 Branch 2020-07-22 2020-07-22 [facility] 1.2.840.114 [id number] 17:17:00 20:14:00 Haileeo Isaac [place] 350.1.13.10 [place] 4.2.7.2.686 [place] [id number] 08 2020-06-17 2020-06-17 Orders Doctor ESCALONA 1.2.840.114 [id number] [facility] 00:00:00 00:00:00 Only Unassigned, GREGORY 350.1.13.10 ity of [facility] [facility] 4.2.7.2.686 Roberto [id number] [facility] 009 Branch 2020-06-17 2020-06-17 Orders Doctor ESCALONA 1.2.840.114 [id number] 00:00:00 00:00:00 Only Unassigned, GREGORY 350.1.13.10 [facility] [facility] 4.2.7.2.686 [id number] 009 2020-05-19 2020-05-19 Emergency Esparza, [facility] 1.2.041.214 [id number] Univers 15:45:00 18:07:00 Pastora Fitzpatrick 350.1.13.10 i ty of [place] 4.2.7.2.686 [facility] [id number] [address] 2020-05-19 2020-05-19 Emergency Esparza, [facility] 1.2.574.352 [id number] 15:45:00 18:07:00 Pastora Fitzpatrick 350.1.13.10 [place] 4.2.7.2.686 [place] [id number] [facility] 2019-08-21 2019-08-22 Emergency [facility] 1.2.265.517 [id number] [facility] 23:48:04 02:26:00 Jose Cruz [place] 350.1.13.10 ity [facility] 4.2.7.2.6 [facility] [id number] [address] 2019-08-21 2019-08-22 Emergency [facility], [facility] 1.2.154.035 [id number] 23:48:04 02:26:00 Jose Cruz Fitz[place] 350.1.13.10 [place] [address] [place] [address] [id number] [facility] 2019-08-06 2019-08-06 Telephone IQRA Barragan 1.2.840.114 [id number] [facility] 00:00:00 00:00:00 Apoorva JENKINS 350.1.13.10 it y [facility] 4.2.7.2.686 Roberto as [id number] [address] 2019-08-06 2019-08-06 Telephone IQRA Box 1.2.091.817 [id number] Univers 00:00:00 00:00:00 Jinny JENKINS 350.1.13.10 it y [facility] 4.2.7.2.686 Roberto as [id number] [address] 2019-08-06 2019-08-06 Telephone IQRA Barragan 1.2.840.114 [id number] 00:00:00 00:00:00 Apoorva JENKINS 350.1.13.10 HOSPITAL 4.2.7.2.686 [id number] 019 2019-08-06 2019-08-06 Telephone IQRA Box 1.2.304.988 [id number] 00:00:00 00:00:00 Jinny JENKINS 350.1.13.10 HOSPITAL 4.2.7.2.686 [id number] 019 2019-08-05 2019-08-05 Telephone Shankar [facility] 1.2.840.114 [id number] Univers 00:00:00 00:00:00 [facility] 350.1.13.10 it y of [place] 4.2.7.2.686 Roberto as Professio [id number] Id dical nal [address] [place] [address] Office [address] One 2019-08-05 2019-08-05 Telephone IQRA Box 1.2.514.016 [id number] Univers 00:00:00 00:00:00 Jinny JENKINS 350.1.13.10 it y of [facility] 4.2.7.2.686 Roberto as [id number] [address] 2019-08-05 2019-08-05 Telephone IQRA Box 1.2.946.023 [id number] 00:00:00 00:00:00 Jinny JENKINS 350.1.13.10 HOSPITAL 4.2.7.2.686 [id number] 019 2019-08-04 2019-08-04 Urgent Pob1, Acute Care Clinic [facility] 1. 2.840.114 [id number] Univers 14:42:35 15:59:50 Care [facility] 350.1.13.10 ity [facility] 4.2.7.2.686 Roberto as Professio [phone] Id dical nal [address] [place] [address] Office [address] 2019-08-04 2019-08-04 Outpatient R [facility] [id number] Univers 15:00:00 15:00:00 ity [facility] 2019-08-04 2019-08-04 Outpatient R [facility] [id number] Univers 09:40:00 09:40:00 ity [facility] Results Test Test Test Results Result Source Description Time Comments Comments CT ABDOMEN 2021-08- 1. ?No bowel University of PELVIS W [...] 0.000 ng/mL See_Comment [Au tomated message] The [id number]) system which ge nerated this result tra nsmitted reference range [...] biotin. Lab Interpretation Normal (test code = 19552-9) [facility] 22[facility]39:02 Test Item Value Reference Range Interpretation Comments APPEARANCE (test code = Clear Clear 0694949626) COLOR (test code = Yellow Yellow 5862629092) PH (test code = 4.8-8.0 8263162774) SP GRAVITY (test code = 1.003-1.030 6152286923) GLU U QUAL (test code = 50 mg/dL Normal A 2633081102) BLOOD (test code = 3+ Negative A 1715083185) KETONES (test code = Negative Negative 6891844469) PROTEIN (test code = Negative Negative 2887-8) UROBILIN (test code = Normal Normal 4533874124) BILIRUBIN (test code = Negative Negative 2178224549) NITRITE (test code = Negative Negative 2513454440) LEUK PARTH (test code = 25/uL Negative A 4864250504) RBC/HPF (test code = See_Comment [Autom ated message] 6943449130) The system [employer] generated this result transmitted ref erence range: 0 - 3 HP F. The reference range was not used to int erpret this result as normal/abnormal . WBC/HPF (test code = See_Comment [Autom ated message] 0007759580) The system [employer] generated this result transmitted ref erence range: 0 - 5 HP F. The reference range was not used to int erpret this result as normal/abnormal . BACTERIA (test code = Negative Negative 8928897626) MUCOUS (test code = Slight Negative LPF A 4173988644) SQ EPITH (test code = HPF 7793394256) Lab Interpretation (test Abnormal code = 72407-7) [facility] 22:38:26 Test Item Value Reference Range Interpretation Comments MAGNESIUM (test code = 9270904064) 1.4 mg/dL 1.7-2.4 L Lab Interpretation (test code = Abnormal 13574-4) [facility] (61451[facility]2020-11-02 22:38:11 Test Item Value Reference Range Interpretation Comments NA (test code = 139 mmol/L 135-145 1971991175) K (test code = 3.7 mmol/L 3.5-5.0 2957428483) CL (test code = 102 mmol/L 98-108 6455438174) CO2 TOTAL (test code = 24 mmol/L 23-31 0972853198) AGAP (test code = 2-16 7119009587) BUN (test code = 16 mg/dL 7-23 3308003589) GLUCOSE (test code = 183 mg/dL 70-110 H 1715370809) CREATININE (test code = 0.64 mg/dL 0.50-1.04 1855859369) TOTAL BILI (test code = 0.2 mg/dL 0.1-1.8 4897145436) CALCIUM (test code = 10.4 mg/dL 8.6-10.6 8466519351) T PROTEIN (test code = 8.5 g/dL 6.3-8.2 H 6996164823) ALBUMIN (test code = 4.8 g/dL 3.5-5.0 0465357843) ALK PHOS (test code = 103 U/L 34-122 9648944721) ALTv (test code = 20 U/L 5-35 1742-6) AST(SGOT) (test code = 21 U/L 13-40 7179352213) eGFR (test code = mL/min/1.73m2 0715488206) FALLON (test code = FALLON) Association of [...] tests). Lab Interpretation Abnormal (test code = 58846-4) [facility] WITH [id number] 22:33:08 Test Item Value Reference Range Interpretation [...] (test code = 38.5 fL 39.0-49.9 L 97681-6) RDW-CV (test code = 13.3 % 12.0-15.5 788-0) PLT (test code = See_Comment [Automated 777-3) message] The sy stem which generated this result transmitted reference range : 166 - 358 10*3/ ?L. The reference r farrah was not used to interpret this result as normal/abnormal . MPV (test code = 10.5 fL 9.5-12.9 05481-7) NRBC/100 WBC (test See_Comment [Automat ed code = 8822169071) message] The system which generated this result transmitted reference range : 0.0 - 10.0 /100 WBCs. The refer ence range was not u sed to interpret th is result as normal/abnormal . NRBC x10^3 (test code <0.01 See_Comment [Auto mated = 8524754373) message] The s ystem which generated this result transmitted reference range : 10*3/?L. The reference range was not used to interpret this result as normal/abnormal . GRAN MAT (NEUT) % 52.3 % (test code = 770-8) IMM GRAN % (test code 0.40 % = 4206115898) LYMPH % (test code = 37.8 % 736-9) MONO % (test code = 7.3 % 5905-5) EOS % (test code = 1.7 % 713-8) BASO % (test code = 0.5 % 706-2) GRAN MAT x10^3(ANC) 5.25 10*3/uL 1.88-7.09 (test code = 1577580941) IMM GRAN x10^3 (test 0.04 10*3/uL 0.00-0.06 code = 8952341573) LYMPH x10^3 (test code 3.79 10*3/uL 1.32-3.29 H = 731-0) MONO x10^3 (test code 0.73 10*3/uL 0.33-0.92 = 742-7) EOS x10^3 (test code = 0.17 10*3/uL 0.03-0.39 711-2) BASO x10^3 (test code 0.05 10*3/uL 0.01-0.07 = 704-7) Lab Interpretation Abnormal (test code = 43555-1) [facility] NOW RAPID TESTING)2020-08-06 03:39:43 Test Item Value Reference Range Interpretation Comments SARS-CoV-2 Rapid ID NOW Not Detected Not Detected (test code = 98264-4) FALLON (test code = FALLON) ID NOW COVID-19 Assay is an isothermal nucleic acid amplification test intended for the qualitative detection of nucleic acid from SARS-CoV-2 viral RNA in nasopharyngeal (INTELLIGENCE DIRECTOR) specimens. It is used under Emergency Use [...] indicated. Lab Interpretation Normal (test code = 49818-9) [facility]OLIC PANEL (97985)2020-08-06 03:11:02 Test Item Value Reference Range Interpretation Comments NA (test code = 138 mmol/L 135-145 9407124707) K (test code = 4.6 mmol/L 3.5-5.0 7977575592) CL (test code = 102 mmol/L 98-108 8467493113) CO2 TOTAL (test code = 23 mmol/L 23-31 4305013448) AGAP (test code = 2-16 4120214653) BUN (test code = 17 mg/dL 7-23 3223621910) GLUCOSE (test code = 477 mg/dL 70-110 HH 2565234504) CREATININE (test code = 0.70 mg/dL 0.50-1.04 8137958529) TOTAL BILI (test code = 0.6 mg/dL 0.1-1.3 6740877540) CALCIUM (test code = 9.4 mg/dL 8.6-10.6 7688181908) T PROTEIN (test code = 7.4 g/dL 6.3-8.2 5242380875) ALBUMIN (test code = 4.4 g/dL 3.5-5.0 7658784598) ALK PHOS (test code = 113 U/L 34-122 0337529311) ALTv (test code = 22 U/L 5-35 1742-6) AST(SGOT) (test code = 35 U/L 13-40 7698920303) eGFR (test code = mL/min/1.73m2 4579609919) FALLON (test code = FALLON) Association of [...] tests). Lab Interpretation Abnormal (test code = 71901-5) [facility] CenterLipase Phjhc6356-29-21 03:07:41 Test Item Value Reference Range Interpretation Comments LIPASE (test code = 4801340387) 169 U/L 0-220 Lab Interpretation (test code = Normal 72648-6) [facility] CenterCB with Gkeyfdixeyzv8835-05-90 02:40:54 Test Item Value Reference Range Interpretation Comments WBC (test code = See_Comment [Automated 2790-2) message] The sy stem which generated this result transmitted reference range : 4.30 - 11.10 10*3/?L. The reference range was not used to interpret this result as normal/abnormal . RBC (test code = See_Comment H [Automated 457-8) message] The sy stem which generated this [...] (test code = 38.2 fL 39.0-49.9 L 60471-3) RDW-CV (test code = 13.5 % 12.0-15.5 788-0) PLT (test code = See_Comment [Automated 777-3) message] The sy stem which generated this result transmitted reference range : 166 - 358 10*3/ ?L. The reference r farrah was not used to interpret this result as normal/abnormal . MPV (test code = 10.7 fL 9.5-12.9 03843-5) NRBC/100 WBC (test See_Comment [Automat ed code = 8754313171) message] The system which generated this result transmitted reference range : 0.0 - 10.0 /100 WBCs. The refer ence range was not u sed to interpret th is result as normal/abnormal . NRBC x10^3 (test code <0.01 See_Comment [Auto mated = 7766283763) message] The s ystem which generated this result transmitted reference range : 10*3/?L. The reference range was not used to interpret this result as normal/abnormal . GRAN MAT (NEUT) % 62.1 % (test code = 770-8) IMM GRAN % (test code 0.70 % = 4475993217) LYMPH % (test code = 29.4 % 736-9) MONO % (test code = 5.2 % 5905-5) EOS % (test code = 1.9 % 713-8) BASO % (test code = 0.7 % 706-2) GRAN MAT x10^3(ANC) 6.64 10*3/uL 1.88-7.09 (test code = 3934873275) IMM GRAN x10^3 (test 0.07 10*3/uL 0.00-0.06 H code = 4592244895) LYMPH x10^3 (test code 3.14 10*3/uL 1.32-3.29 = 731-0) MONO x10^3 (test code 0.56 10*3/uL 0.33-0.92 = 742-7) EOS x10^3 (test code = 0.20 10*3/uL 0.03-0.39 711-2) BASO x10^3 (test code 0.07 10*3/uL 0.01-0.07 = 704-7) Lab Interpretation Abnormal (test code = 92800-6) [facility] CenterLactic Acid Whole Ovglg1038-78-37 02:27:55 Test Item Value Reference Range Interpretation Comments LACTIC ACID (test code = 2.34 mmol/L 0.50-2.20 H 3895092479) Lab Interpretation (test code = Abnormal 86047-7) [facility]IS2021-[facility]-10 02:03:28 Test Item Value Reference Range Interpretation Comments APPEARANCE (test code = Cloudy Clear A 9227022420) COLOR (test code = Yellow Yellow 5168461079) PH (test code = 4.8-8.0 6712592631) SP GRAVITY (test code = 1.003-1.030 H 3340993601) GLU U QUAL (test code = 500 mg/dL Normal A 3308524505) BLOOD (test code = Negative Negative 2021570029) KETONES (test code = Negative Negative 1605139523) PROTEIN (test code = Negative Negative 2887-8) UROBILIN (test code = Normal Normal 1187705494) BILIRUBIN (test code = Negative Negative 8139223943) NITRITE (test code = Negative Negative 3208025229) LEUK PARTH (test code = 250/uL Negative A 7858902798) RBC/HPF (test code = See_Comment [Autom ated message] 2962374494) The system [employer] generated this result transmit jeny reference range : 0 - 3 HPF. The refe rence range was not u sed to interpret th is result as normal/abnormal . WBC/HPF (test code = See_Comment H [Autom ated message] 0872320402) The system [employer] generated this result transmit jeny reference range : 0 - 5 HPF. The refe rence range was not u sed to interpret th is result as normal/abnormal . BACTERIA (test code = Few Negative A 0567413346) MUCOUS (test code = Slight Negative LPF A 4664909512) SQ EPITH (test code = HPF 0842619030) Lab Interpretation (test Abnormal code = 60758-3) [facility] (ID NOW RAPID TESTING)2020-07-23 01:04:25 Test Item Value Reference Range Interpretation Comments SARS-CoV-2 Rapid ID NOW Not Detected Not Detected (test code = 58203-1) FALLON (test code = FALLON) ID NOW COVID-19 Assay is an isothermal nucleic acid amplification test intended for the qualitative detection of nucleic acid from SARS-CoV-2 viral RNA in nasopharyngeal (INTELLIGENCE DIRECTOR) specimens. It is used under Emergency Use [...] indicated. Lab Interpretation Normal (test code = 59747-6) [facility] CenterTHYROID STIMULATING SVAWGCS8269-09-69 23:54:39 Test Item Value Reference Range Interpretation Comments TSH (test code = See_Comment [Automated message] 4027138101) The system [employer] generated this result transmitted ref erence range: 0.45 - 4 .70 mIU/L. The refe rence range was not u sed to interpret this result as normal/abnor mal. Lab Interpretation (test Normal code = 95009-0) [facility] [id number] 23:43:00 Test Item Value Reference Range Interpretation Comments FREE T4 (test code = See_Comment [Autom ated message] 4070162637) The system [employer] generated this result transmitted ref erence range: 0.78 - 2 .20 ng/dL:. The ref erence range was not u sed to interpret this result as normal/abnor mal. Lab Interpretation (test Normal code = 57782-4) [facility] Metabolic Panel (NA, K, CL, CO2, GLUCOSE, BUN, CREATININE, CA)2020-07-22 23:41:03 Test Item Value Reference Range Interpretation Comments NA (test code = 136 mmol/L 135-145 4298368510) K (test code = 4.0 mmol/L 3.5-5.0 3465056533) CL (test code = 97 mmol/L 98-108 L 1075098507) CO2 TOTAL (test code = 30 mmol/L 23-31 0042796003) AGAP (test code = 2-16 0833703027) BUN (test code = 10 mg/dL 7-23 3957376470) GLUCOSE (test code = 483 mg/dL 70-110 HH 1661964552) CREATININE (test code = 0.64 mg/dL 0.50-1.04 9068076131) CALCIUM (test code = 9.5 mg/dL 8.6-10.6 7843128004) eGFR (test code = mL/min/1.73m2 0117459773) FALLON (test code = FALLON) Association of [...] tests). Lab Interpretation Abnormal (test code = 34820-7) [facility] Center[facility]atic Function [facility] (ALB, T.PRO, BILI T, BU/BC, ALT, AST, ALK PHOS)2020-07-22 23:40:08 Test Item Value Reference Range Interpretation Comments TOTAL BILI (test code = 7225659012) 0.3 mg/dL 0.1-1.1 BILI UNCON (test code = 3066595898) 0.2 mg/dL 0.1-1.1 BILI CONJ (test code = 0598410844) 0.0 mg/dL 0.0-0.3 T PROTEIN (test code = 6708097185) 6.4 g/dL 6.3-8.2 ALBUMIN (test code = 0846206950) 3.9 g/dL 3.5-5.0 ALK PHOS (test code = 8231629072) 125 U/L 34-122 H ALTv (test code = 1742-6) 21 U/L 5-35 AST(SGOT) (test code = 6258558432) 19 U/L 13-40 Lab Interpretation (test code = Abnormal 55375-7) [facility] CenterN-TERMINAL DJJ-HHO0306-64-25 23:40:08 Test Item Value Reference Range Interpretation Comments NT-proBNP (test code 73 pg/mL See_Comment [Autom ated = 5051457008) message] The system which generated this result transmitted reference range : <=125. The reference range was not used to interpret this result as normal/abnormal . FALLON (test code = FALLON) Biotin has been reported to cause a negative bias, interpret results relative to patient's use of biotin. Lab Interpretation Normal (test code = 67845-6) [facility] CenterTroponin [id number] 23:40:08 Test Item Value Reference Range Interpretation Comments TROPONIN I (test 0.001 ng/mL See_Comment [Automated code = 3688227833) message] The system which generated this result [...] ? Lab Interpretation Normal (test code = 63012-9) [facility] CenterLIPASE2021-04-25 23:22:59 Test Item Value Reference Range Interpretation Comments LIPASE (test code = 7278346837) 141 U/L 0-220 Lab Interpretation (test code = Normal 18452-3) [facility] CenterUrinalysis2021-04-25 23:20:48 Test Item Value Reference Range Interpretation Comments APPEARANCE (test code = Clear Clear 3404461665) COLOR (test code = Straw Yellow A 3291945762) PH (test code = 4.8-8.0 2632024974) SP GRAVITY (test code = 1.003-1.030 6271659696) GLU U QUAL (test code = 500 mg/dL Normal A 1722975802) BLOOD (test code = Negative Negative 1373247830) KETONES (test code = Negative Negative 6783533937) PROTEIN (test code = Negative Negative 2887-8) UROBILIN (test code = Normal Normal 1912493849) BILIRUBIN (test code = Negative Negative 4394987763) NITRITE (test code = Negative Negative 1162958854) LEUK PARTH (test code = Negative Negative 3971828826) RBC/HPF (test code = See_Comment [Autom ated message] 4595786008) The system [employer] generated this result transmit jeny reference range : 0 - 3 HPF. The refe rence range was not u sed to interpret th is result as normal/abnormal . WBC/HPF (test code = See_Comment [Autom ated message] 4261545916) The system [employer] generated this result transmit jeny reference range : 0 - 5 HPF. The refe rence range was not u sed to interpret th is result as normal/abnormal . BACTERIA (test code = Negative Negative 7236715890) SQ EPITH (test code = HPF 6993897942) Lab Interpretation (test Abnormal code = 84591-5) [facility] with Jprrnokxivoi3431-23-15 23:01:38 Test Item Value Reference Range Interpretation [...] (test code = 37.3 fL 39.0-49.9 L 18874-3) RDW-CV (test code = 12.8 % 12.0-15.5 788-0) PLT (test code = See_Comment [Automated 777-3) message] The sy stem which generated this result transmitted reference range : 166 - 358 10*3/ ?L. The reference r farrah was not used to interpret this result as normal/abnormal . MPV (test code = 10.8 fL 9.5-12.9 80813-6) NRBC/100 WBC (test See_Comment [Automat ed code = 0403471710) message] The system which generated this result transmitted reference range : 0.0 - 10.0 /100 WBCs. The refer ence range was not u sed to interpret th is result as normal/abnormal . NRBC x10^3 (test code <0.01 See_Comment [Auto mated = 6875776363) message] The s ystem which generated this result transmitted reference range : 10*3/?L. The reference range was not used to interpret this result as normal/abnormal . GRAN MAT (NEUT) % 55.0 % (test code = 770-8) IMM GRAN % (test code 0.30 % = 3344717735) LYMPH % (test code = 35.6 % 736-9) MONO % (test code = 7.2 % 5905-5) EOS % (test code = 1.4 % 713-8) BASO % (test code = 0.5 % 706-2) GRAN MAT x10^3(ANC) 3.20 10*3/uL 1.88-7.09 (test code = 5626780197) IMM GRAN x10^3 (test <0.03 0.00-0.06 code = 2739788849) LYMPH x10^3 (test code 2.07 10*3/uL 1.32-3.29 = 731-0) MONO x10^3 (test code 0.42 10*3/uL 0.33-0.92 = 742-7) EOS x10^3 (test code = 0.08 10*3/uL 0.03-0.39 711-2) BASO x10^3 (test code 0.03 10*3/uL 0.01-0.07 = 704-7) Lab Interpretation Abnormal (test code = 42984-3) [facility] GLUCOSE (AUTOMATED)2020-07-22 22:21:14 Test Item Value Reference Range Interpretation Comments POCT GLU (test code = 0193286487) 428 mg/dL 70-110 H Lab Interpretation (test code = Abnormal 04933-6) [facility]. METABOLIC PANEL (80495)2020-05-19 22:32:00 Test Item Value Reference Range Interpretation Comments NA (test code = 137 mmol/L 135-145 8483284196) K (test code = 4.0 mmol/L 3.5-5 4566569190) CL (test code = 102 mmol/L 98-108 9666439196) CO2 TOTAL (test code = 25 mmol/L 23-31 1439949603) AGAP (test code = 2-16 7131808454) BUN (test code = 11 mg/dL 7-23 8907476070) GLUCOSE (test code = 270 mg/dL 70-110 H 2734087247) CREATININE (test code = 0.51 mg/dL 0.5-1.04 2877533801) TOTAL BILI (test code = 0.5 mg/dL 0.1-1.4 3649409351) CALCIUM (test code = 9.0 mg/dL 8.6-10.6 8056443614) T PROTEIN (test code = 7.4 g/dL 6.3-8.2 6862914857) ALBUMIN (test code = 4.4 g/dL 3.5-5 4764969838) ALK PHOS (test code = 96 U/L 34-122 2545850004) ALTv (test code = 18 U/L 5-35 1742-6) AST(SGOT) (test code = 21 U/L 13-40 6769149994) eGFR Calculation mL/min/1.73m2 (Non-) (test code = 9883163895) eGFR Calculation mL/min/1.73m2 () (test code = 5187736597) FALLON (test code = FALLON) Association of [...] tests). Lab Interpretation Abnormal (test code = 09397-2) [facility]00 Test Item Value Reference Range Interpretation Comments LIPASE (test code = 5576617617) 121 U/L 0-220 Lab Interpretation (test code = Normal 16575-5) [facility] 22:30:00 Test Item Value Reference Range Interpretation Comments APPEARANCE (test code = Hazy Clear A 0109576142) COLOR (test code = Yellow Yellow 6277756163) PH (test code = 4.8-8.0 1958499091) SP GRAVITY (test code = 1.003-1.030 2940560361) GLU U QUAL (test code = 500 mg/dL Normal A 2436956774) BLOOD (test code = 1+ Negative A 9165065341) KETONES (test code = Negative Negative 0557436422) PROTEIN (test code = 30 mg/dL Negative A 2887-8) UROBILIN (test code = Normal Normal 8698147402) BILIRUBIN (test code = Negative Negative 1028769927) NITRITE (test code = Negative Negative 6852216525) LEUK PARTH (test code = 75/uL Negative A 8368876973) RBC/HPF (test code = See_Comment H [Autom ated message] 5474838293) The system [employer] generated this result transmit jeny reference range : 0 - 3 HPF. The refe rence range was not u sed to interpret th is result as normal/abnormal . WBC/HPF (test code = See_Comment H [Autom ated message] 9519521658) The system [employer] generated this result transmit jeny reference range : 0 - 5 HPF. The refe rence range was not u sed to interpret th is result as normal/abnormal . BACTERIA (test code = Few Negative A 1659121688) MUCOUS (test code = Slight Negative LPF A 4051195228) SQ EPITH (test code = HPF 0587199760) Lab Interpretation (test Abnormal code = 08648-6) [facility] WITH [id number] 22:14:00 Test Item Value Reference Range Interpretation [...] (test code = 37.7 fL 39-49.9 L 82096-9) RDW-CV (test code = 13.0 % 12-15.5 788-0) PLT (test code = See_Comment [Automated 777-3) message] The sy stem which generated this result transmitted reference range : 166 - 358 10*3/ ?L. The reference r farrah was not used to interpret this result as normal/abnormal . MPV (test code = 11.1 fL 9.5-12.9 21663-5) NRBC/100 WBC (test See_Comment [Automat ed code = 4412246468) message] The system which generated this result transmitted reference range : 0.0 - 10.0 /100 WBCs. The refer ence range was not u sed to interpret th is result as normal/abnormal . NRBC x10^3 (test code <0.01 See_Comment [Auto mated = 1970401672) message] The s [employer] which generated this result transmitted reference range : 10*3/?L. The reference range was not used to interpret this result as normal/abnormal . GRAN MAT (NEUT) % 49.2 % (test code = 770-8) IMM GRAN % (test code 0.70 % = 9729281953) LYMPH % (test code = 41.0 % 736-9) MONO % (test code = 7.0 % 5905-5) EOS % (test code = 1.5 % 713-8) BASO % (test code = 0.6 % 706-2) GRAN MAT x10^3(ANC) 4.07 10*3/uL 1.88-7.09 (test code = 3658857874) IMM GRAN x10^3 (test 0.06 10*3/uL 0-0.06 code = 3724108199) LYMPH x10^3 (test code 3.39 10*3/uL 1.32-3.29 H = 731-0) MONO x10^3 (test code 0.58 10*3/uL 0.33-0.92 = 742-7) EOS x10^3 (test code = 0.12 10*3/uL 0.03-0.39 711-2) BASO x10^3 (test code 0.05 10*3/uL 0.01-0.07 = 704-7) Lab Interpretation Abnormal (test code = 05824-8) [facility]2019-08-22 07:08:00 Test Item Value Reference Range Interpretation Comments POCT GLU (test code = 1579557887) 290 mg/dL 70-110 H Lab Interpretation (test code = Abnormal 20271-4) [facility]OLIC PANEL (12314)2019-08-22 05:49:00 Test Item Value Reference Range Interpretation Comments NA (test code = 139 mmol/L 135-145 9102620244) K (test code = 4.5 mmol/L 3.5-5 8855222652) CL (test code = 103 mmol/L 98-108 9008997583) CO2 TOTAL (test code = 25 mmol/L 23-31 0334443861) AGAP (test code = 2-16 7840716176) BUN (test code = 7 mg/dL 7-23 5341772645) GLUCOSE (test code = 312 mg/dL 70-110 H 2219249395) CREATININE (test code = 0.55 mg/dL 0.5-1.04 3765088904) TOTAL BILI (test code = 0.7 mg/dL 0.1-1.9 5242316317) CALCIUM (test code = 10.0 mg/dL 8.6-10.6 2330115748) T PROTEIN (test code = 8.4 g/dL 6.3-8.2 H 2611194344) ALBUMIN (test code = 4.7 g/dL 3.5-5 7312165390) ALK PHOS (test code = 82 U/L 34-122 8736765145) ALTv (test code = 18 U/L 5-35 1742-6) AST(SGOT) (test code = 34 U/L 13-40 7943890813) eGFR Calculation mL/min/1.73m2 (Non-) (test code = 4682067801) eGFR Calculation mL/min/1.73m2 () (test code = 0081345788) FALLON (test code = FALLON) Association of [...] tests). Lab Interpretation Abnormal (test code = 34937-6) [facility] 05[facility]49[facility]00 Test Item Value Reference Range Interpretation Comments LIPASE (test code = 4144776441) 174 U/L 0-220 Lab Interpretation (test code = Normal 68501-1) [facility] WITH [id number] 05:35:00 Test Item Value Reference Range Interpretation Comments WBC (test code = See_Comment [Automated 1071-2) message] The sy stem which generated this result transmitted reference range : 4.30 - 11.10 10*3/?L. The reference range was not used to interpret this result as normal/abnormal . RBC (test code = See_Comment [Automated 581-8) message] The sy stem which generated this [...] (test code = 37.7 fL 39-49.9 L 62602-3) RDW-CV (test code = 13.3 % 12-15.5 788-0) PLT (test code = See_Comment [Automated 167-3) message] The sy stem which generated this result transmitted reference range : 166 - 358 10*3/ ?L. The reference r farrah was not used to interpret this result as normal/abnormal . MPV (test code = 11.2 fL 9.5-12.9 51559-0) NRBC/100 WBC (test See_Comment [Automat ed code = 6616028080) message] The system which generated this result transmitted reference range : 0.0 - 10.0 /100 WBCs. The refer ence range was not u sed to interpret th is result as normal/abnormal . NRBC x10^3 (test code <0.01 See_Comment [Auto mated = 0434556902) message] The s [employer]stem which generated this result transmitted reference range : 10*3/?L. The reference range was not used to interpret this result as normal/abnormal . GRAN MAT (NEUT) % 57.4 % (test code = 770-8) IMM GRAN % (test code 0.50 % = 8784362311) LYMPH % (test code = 33.7 % 736-9) MONO % (test code = 6.6 % 5905-5) EOS % (test code = 1.3 % 713-8) BASO % (test code = 0.5 % 706-2) GRAN MAT x10^3(ANC) 6.27 10*3/uL 1.88-7.09 (test code = 1925337517) IMM GRAN x10^3 (test 0.05 10*3/uL 0-0.06 code = 6929796021) LYMPH x10^3 (test code 3.67 10*3/uL 1.32-3.29 H = 731-0) MONO x10^3 (test code 0.72 10*3/uL 0.33-0.92 = 742-7) EOS x10^3 (test code = 0.14 10*3/uL 0.03-0.39 711-2) BASO x10^3 (test code 0.05 10*3/uL 0.01-0.07 = 704-7) Lab Interpretation Abnormal (test code = 37621-9) [facility] ([facility] NOW RAPID TESTING)2019-08-22 05:28:00 Test Item Value Reference Range Interpretation Comments SARS-CoV-2 Rapid ID NOW Not Detected Not Detected (test code = 39397-5) FALLON (test code = FALLON) ID NOW COVID-19 Assay is an isothermal nucleic acid amplification test intended for the qualitative detection of nucleic acid from SARS-CoV-2 viral RNA in nasopharyngeal (INTELLIGENCE DIRECTOR) specimens. It is used under Emergency Use [...] indicated. Lab Interpretation Normal (test code = 70130-3) [facility]2020-[facility]-25 05:20:00 Test Item Value Reference Range Interpretation Comments APPEARANCE (test code = Clear Clear 8732734032) COLOR (test code = Straw Yellow A 7901975925) PH (test code = 4.8-8.0 2402375539) SP GRAVITY (test code = 1.003-1.030 9848627763) GLU U QUAL (test code = 500 mg/dL Normal A 9863630395) BLOOD (test code = Negative Negative INTERFERE NCE FROM 5436550630) ASCORBIC ACID M AY CAUSE FALSE NEG ATIVE RESULT KETONES (test code = Negative Negative 4064777627) PROTEIN (test code = Negative Negative 2887-8) UROBILIN (test code = Normal Normal 9855497097) BILIRUBIN (test code = Negative Negative 5338244701) NITRITE (test code = Negative Negative 3290629528) LEUK PARTH (test code = Negative Negative 6866159080) RBC/HPF (test code = <1 See_Comment [Autom ated message] 7993714654) The system [employer] generated this result transmitted ref erence range: 0 - 3 HP F. The reference range was not used to int erpret this result as normal/abnormal . WBC/HPF (test code = See_Comment [Autom ated message] 0101736423) The system [employer] generated this result transmitted ref erence range: 0 - 5 HP F. The reference range was not used to int erpret this result as normal/abnormal . BACTERIA (test code = Few Negative A 8366457210) MUCOUS (test code = Slight Negative LPF A 3536988229) SQ EPITH (test code = HPF 3209753447) Lab Interpretation Abnormal (test code = 95594-1) [facility] [id number] 17:07:00 Test Item Value Reference Range Interpretation Comments POC-GLUCOSE METER 298 mg/dL 70-110 H TESTED AT [place] [address] ([facility]) (test code = ELIZABETH Flynn [facility] 1538) [address] POCT-GLUCOSE [id number] 12:11:00 Test Item Value Reference Range Interpretation Comments POC-GLUCOSE METER 331 mg/dL 70-110 H Notified Rina Low MD/TESTED ([facility]) (test code = AT [address] 1538) [facility] [address] POCT-GLUCOSE [id number] 10:55:00 Test Item Value Reference Range Interpretation Comments POC-GLUCOSE METER 365 mg/dL 70-110 H TESTED AT [place] [address] ([facility]) (test code = CHRIST[place]J Rina [place] [address]) [address] POCT-GLUCOSE [id number] 08:44:00 Test Item Value Reference Range Interpretation Comments POC-GLUCOSE METER 291 mg/dL 70-110 H TESTED AT [place] [address] ([facility]) (test code = ELIZABETH Rina [facility] 1538) [address] LIPID [id number] 05:56:00 Test Item Value Reference Range Interpretation Comments TRIGLYCERIDES ([facility]) (test code = 279 mg/dL 540) CHOLESTEROL ([facility]) (test code = 119 mg/dL 631) HDL CHOLESTEROL ([facility]) (test code 22 mg/dL = 976) LDL CHOLESTEROL CALCULATED ([facility]) 41 mg/dL (test code = 633) Triglyceride Reference Range: Low Risk <150 Borderline 150-199 High Risk 200-499 Very High Risk >=500Cholesterol Reference Range: Low Risk <200 Borderline 200-239 High Risk >240HDL Cholesterol Reference Range: Low Risk >=60 High Risk <40LDL Cholesterol Reference Range: Optimal <100 Near Optimal 100-129 Borderline 130-159 High 160-189 Very High >=190POCT-GLUCOSE [id number] 21:50:00 Test Item Value Reference Range Interpretation Comments POC-GLUCOSE METER 318 mg/dL 70-110 H TESTED AT [facility] 6720 ([facility]) (test code = ELIZABETH [place] 1538) [address] POCT-GLUCOSE [id number] 18:04:00 Test Item Value Reference Range Interpretation Comments POC-GLUCOSE METER 238 mg/dL 70-110 H TESTED AT [facility] 6720 ([facility]) (test code = ELIZABETH [place] 1538) [address] POCT-GLUCOSE [id number] 12:22:00 Test Item Value Reference Range Interpretation Comments POC-GLUCOSE METER 290 mg/dL 70-110 H TESTED AT [place] [address] ([facility]) (test code = ELIZABETH Flynn [place] 1538) [address] POCT-GLUCOSE [id number] 09:20:00 Test Item Value Reference Range Interpretation Comments POC-GLUCOSE METER 293 mg/dL 70-110 H TESTED AT [place] [address] ([facility]) (test code = ELIZABETH [place] 1538) [address] POCT-GLUCOSE [id number] 21:00:00 Test Item Value Reference Range Interpretation Comments POC-GLUCOSE METER 225 mg/dL 70-110 H TESTED AT [place] [address] ([facility]) (test code = ELIZABETH Flynn [place] 1538) [address] CT, CAROTID, [id number] 18:01:00FINAL REPORT CT angiogram of the upper [...] Hall Verified Date/Time: 08/30/2017 18:01:31 Reading Location: [address] Neuro Reading Room , CTANGIO [id number] 18:01:00FINAL REPORT CT angiogram of the upper [...] CTA upper chest, neck, head. Signed: Iqar Hall Verified Date/Time: 08/30/2017 18:01:31 Reading Location: [address] Neuro Reading Room -GLUCOSE [id number] 17:21:00 Test Item Value Reference Range Interpretation Comments POC-GLUCOSE METER 256 mg/dL 70-110 H TESTED AT [facility] 6720 (BEAKER) (test code = [facility] [place] 1538) [address] POCT-GLUCOSE [id number] 12:00:00 Test Item Value Reference Range Interpretation Comments POC-GLUCOSE METER 289 mg/dL 70-110 H TESTED AT [facility] 6720 (BEAKER) (test code = [facility] 1538) [address] BASIC METABOLIC [id number] 10:12:00 Test Item Value Reference Range Interpretation [...] NOT APPLICABLE FOR DIALYSIS PATIEN TS. POCT-GLUCOSE [id number] 08:42:00 Test Item Value Reference Range Interpretation Comments POC-GLUCOSE METER 259 mg/dL 70-110 H TESTED AT [facility] 6720 (BEAKER) (test code = [facility] 1538) [address] TROPONIN [id number] 06:14:00 Test Item Value Reference Range Interpretation [...] = 2801) RAD, CHEST, 1 VIEW, NON [id number] 04:23:00Reason for exam:->chest painShould this be performed at the bedside?->YesFINAL REPORT Comparison examination: None No pneumothorax, focal pulmonary co nsolidation, or significant pleural effusion. Normal cardiomediastinal contours. Normal skeleton and soft tissues. Impression: No acute abnormality. Signed: Ervin Jenkins Verified Date/Time: 08/30/2017 04:23:04 Reading Location: [address] Reading Room POCT-GLUCOSE [id number] 21:18:00 Test Item Value Reference Range Interpretation Comments POC-GLUCOSE METER 151 mg/dL 70-110 H TESTED AT [facility] 6720 ([facility]) (test code = [facility] Rina [facility] 1538) [address] POCT-GLUCOSE [id number] 17:59:00 Test Item Value Reference Range Interpretation Comments POC-GLUCOSE METER 146 mg/dL 70-110 H TESTED AT [facility] 6720 ([facility]) (test code = [facility] 1538) [address] HEMOGLOBIN [id number] 15:56:00 Test Item Value Reference Range Interpretation Comments HEMOGLOBIN A1C ([facility]) (test code = 13.7 % 4.3-6.1 H 368) CT, BRAIN, WITHOUT [id number] 14:52:00FINAL REPORT CT head without contrast. Comparisons: [...] Hall Verified Date/Time: 08/29/2017 14:52:09 Reading Location: [address] Neuro Reading Room POCT-GLUCOSE [id number] 14:17:00 Test Item Value Reference Range Interpretation Comments POC-GLUCOSE METER 423 mg/dL 70-110 Notified Rina Low MD/MIKKI (JESSICA) (test code = AT [facility] 67[address] [facility] 7378) [facility] 7703 0 VITAMIN [id number] 06:48:00 Test Item Value Reference Range Interpretation Comments VITAMIN B12 (BEAKER) (test code = 300 pg/mL 213-816 774) TSH/FREE T4 IF [id number] 06:48:00 Test Item Value Reference Range Interpretation Comments THYROID STIMULATING HORMONE 1.55 uIU/mL 0.35-4.94 (BEAKER) (test code = 772) CBC W/PLT COUNT & AUTO [id number] 05:10:00 Test Item Value Reference Range Interpretation [...] (BEAKER) (test code = 2801) URINALYSIS W/ [id number] 23:32:00 Test Item Value Reference Range Interpretation [...] Occasional SOURCE(BEAKER) (test code = 2795) TROPONIN [id number] 23:12:00 Test Item Value Reference Range Interpretation [...] acute neurological disease, and persistent tachyarrhythmia.BASIC METABOLIC [id number] 23:05:00 Test Item Value Reference Range Interpretation [...] NOT APPLICABLE FOR DIALYSIS PATIEN TS. POCT-GLUCOSE [id number] 20:49:00 Test Item Value Reference Range Interpretation Comments POC-GLUCOSE METER 376 mg/dL 70-110 H Notified R Devante SOUZA/TESTED (JESSICA) (test code = AT [facility] [address] [address]) [facility] 1473 0"
[2021-08-08] MEDS ORDERED: dexAMETHasone 10 MG/ML VIAL ONE (08:56)
[2021-08-08] MEDS ORDERED: FENTANYL CITR 100 MCG/2 ML ONE (08:56)
--- NOTE | 2021-08-08 09:19 | ER ---
Nurse's Notes [facility] Name: Elly Clarke Age: 51 yrs Sex: Female : 1970 Arrival Date: 08/08/2021 Time: 08:28 Bed 11 Private MD: Pavel Curran T Diagnosis: Acute pharyngitis, unspecified Presentation: 08/08 08:32 Chief complaint: Patient states: Cough, sore throat and body aches that began a week ss ago. Grandson was diagnosed with strep last Thursday. 08:33 Coronavirus screen: Client denies travel out of the [place] in the last 14 days. Ebola ss Screen: Patient denies exposure to infectious person. Patient denies travel to an Ebola-affected area in the 21 days before illness onset. Initial Sepsis Screen: Does the patient meet any 2 criteria? No. Patient's initial sepsis screen is negative. Does the patient have a suspected source of infection? No. Patient's initial sepsis screen is negative. Risk Assessment: Do you want to hurt yourself or someone else? Patient reports no desire to harm self or others. Onset of symptoms was August 01, 2021. 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: 08:34 LMP N/A - Hysterectomy ss Historical: - Allergies: 08:34 Claritin (insomnia); ss 08:34 Compazine (Seizures); ss 08:34 Demerol (HEART RACING); ss 08:34 (Hives); ss 08:34 Morphine (RACING HEART); ss - PMHx: 08:34 Diabetes - NIDDM; Migraines; spinal stenosis; Pancreatitis; insomnia; Hypertension; ss High Cholesterol; Gastroparesis; Dramatic migraine events; Chronic pain; Arthritis; Chrohns; Anxiety; - PSHx: 08:34 Knee sx x 2; Cholecystectomy; Tonsillectomy; Total abdominal hysterectomy; tumor ss removed from septum; - Immunization history:: Client reports receiving the 2nd dose of the Covid vaccine. - Social history:: Smoking status: Patient denies any tobacco usage or history of. Screenin:32 Abuse screen: Denies threats or abuse. Denies injuries from another. Nutritional ss screening: No deficits noted. Nutritional screening: On no prescribed diet. Tuberculosis screening: Never had TB. Fall Risk None identified. Assessment: 08:35 General: Appears in no apparent distress. comfortable, Behavior is calm, cooperative, ss Denies fever, feeling ill, fatigue, chills. Pain: Complains of pain in throat Is continuous. Pain: Quality of pain is described as "sore/ burning". Cardiovascular: Capillary refill < 3 seconds is brisk in bilateral fingers. Respiratory: Reports cough that is. Respiratory: Denies shortness of breath labored breathing. GI: Patient currently denies diarrhea, nausea, vomiting. Musculoskeletal: Circulation, motion, and sensation intact. Range of motion: intact in all extremities. 08:50 Reassessment: Verified with RICARDA Peters Fentanyl treatment for sore throat. RICARDA Peters states that patient had told him that she was also having a "Crohn's flare up". 08:57 Reassessment: RASS 0, Pt states that she has a ride home, her daughter. 09:32 Reassessment: Pt verbalizes understanding discharge instructions, states she will wait for her ride in [facility], Is awake, but appears drowsy, states she will rest and take it easy when she gets home. Neuro: [place] Agitation-Sedation Scale (RASS): -1 Drowsy. Respiratory: Airway is patent Respiratory effort is even, unlabored, Respiratory pattern is regular, symmetrical. Derm: Skin is. Vital Signs: 08:33 BP 158 / 87; Pulse 86; Resp 16; Temp 97.8(TE); Pulse Ox 98% on R/A; Weight 107.05 kg; ss Height 5 ft. 7 in. (170.18 cm); Pain 0/10; 08:33 Body Mass Index 36.96 (107.05 kg, 170.18 cm) ED Course: 08:28 Patient arrived in ED. mr 08:29 Pavel Curran MD is Private Physician. mr 08:29 [facility] 08:29 Angel Luis Pelaez DO is Attending Physician. jmm 08:34 Triage completed. 08:34 Arm band placed on right wrist. 08:47 Akiko Meyers, NAT is Primary Nurse. 09:10 SARS-COV-2 RT PCR (Document "Date of Onset" if Symptomatic) Sent. [facility] 09:10 Influenza Screen (a \\T\\ B) Sent. [facility] 09:10 Strep Sent. [facility] 09:18 Pavel Curran MD is Referral Physician. [facility] 09:32 Patient has correct armband on for positive identification. Bed in low position. Call ss light in reach. 09:32 No provider procedures requiring assistance completed. Patient did not have IV access ss during this emergency room visit. Administered Medications: 08:57 Drug: fentaNYL (PF) 25 mcg Route: IM; Site: left deltoid; ss 09:33 Follow up: Response: No adverse reaction; Pain is decreased ss 08:58 Drug: Decadron (dexamethasone) 10 mg Route: IM; Site: right deltoid; ss 09:33 Follow up: Response: No adverse reaction; Pain is decreased ss Medication: 09:32 VIS not applicable for this client. ss Outcome: 09:18 Discharge ordered by . [facility] 09:32 Discharged to home ambulatory. ss 09:32 Condition: improved 09:32 Discharge instructions given to patient, Instructed on discharge instructions, follow up and referral plans. medication usage, Demonstrated understanding of instructions, follow-up care, medications, Prescriptions given X 1. 09:33 Patient left the ED. Signatures: Fran Santiago PA PA jmm Rivera, Mary mr Smirch, Shelby, RN RN Angelika Munoz [facility] Corrections: (The following items were deleted from the chart) 08:34 08:32 Chief complaint: Patient states: Cough, sore throat and body aches that began a ss week ago. ss 10:55 09:00 Reassessment: RASS 0 ss ss 10:59 09:32 Reassessment: Patient appears in no apparent distress at this time. Patient ss and/or family updated on plan of care and expected duration. Pain level reassessed. Patient is alert, oriented x 3, equal unlabored respirations, skin warm/dry/pink. Patient states feeling better. Patient states symptoms have improved. ss
--- NOTE | 2021-08-08 09:20 | EDPHYS ---
Physician Documentation [facility] Name: Elly Clarke Age: 51 yrs Sex: Female : 1970 Arrival Date: 08/08/2021 Time: 08:28 Bed 11 Private MD: Pavel Curran T ED Physician Angel Luis Pelaez HPI: 08/08 09:15 This 51 yrs old Female presents to ER via Ambulatory with complaints of Sore Throat, jmm Cough. 09:15 The patient presents with sore throat. Onset: The symptoms/episode began/occurred jmm gradually. 09:16 Modifying factors: The symptoms are alleviated by nothing, the symptoms are aggravated jmm by nothing. Associated signs and symptoms: Pertinent positives: chills, cough. The patient has experienced similar episodes in the past. [employer] SAL[employer]: 08:34 LMP N/A - Hysterectomy ss Historical: - Allergies: 08:34 Claritin (insomnia); ss 08:34 Compazine (Seizures); ss 08:34 Demerol (HEART RACING); ss 08:34 (Hives); ss 08:34 Morphine (RACING HEART); ss - PMHx: 08:34 Diabetes - NIDDM; Migraines; spinal stenosis; Pancreatitis; insomnia; Hypertension; ss High Cholesterol; Gastroparesis; Dramatic migraine events; Chronic pain; Arthritis; Chrohns; Anxiety; - PSHx: 08:34 Knee sx x 2; Cholecystectomy; Tonsillectomy; Total abdominal hysterectomy; tumor ss removed from septum; - Immunization history:: Client reports receiving the 2nd dose of the Covid vaccine. - Social history:: Smoking status: Patient denies any tobacco usage or history of. ROS: 09:16 Constitutional: Positive for body aches, chills. jmm 09:16 Respiratory: Positive for cough. 09:16 All other systems are negative. Exam: 09:16 Constitutional: This is a well developed, well nourished patient who is awake, alert, jmm and in no acute distress. Head/Face: atraumatic. Eyes: EOMI, no conjunctival erythema appreciated 09:16 Chest/axilla: Normal chest wall appearance and motion. Cardiovascular: Regular rate and rhythm. No edema appreciated Respiratory: Normal respirations, no respiratory distress appreciated Abdomen/GI: Non distended, soft Back: Normal ROM Skin: General appearance color normal MS/ Extremity: Moves all extremities, no obvious deformities appreciated, no edema noted to the lower extremities Neuro: Awake and alert Psych: Behavior is normal, Mood is normal, Patient is cooperative and pleasant 09:16 ENT: Posterior pharynx: erythema, that is mild. Vital Signs: 08:33 BP 158 / 87; Pulse 86; Resp 16; Temp 97.8(TE); Pulse Ox 98% on R/A; Weight 107.05 kg; ss Height 5 ft. 7 in. (170.18 cm); Pain 0/10; 08:33 Body Mass Index 36.96 (107.05 kg, 170.18 cm) ss MDM: 08:[address] [facility] 09:17 Data reviewed: vital signs, nurses notes. Counseling: I had a detailed discussion with [facility] the patient and/or guardian regarding: the historical points, exam findings, and any diagnostic results supporting the discharge/admit diagnosis, the need for outpatient follow up, to return to the emergency department if symptoms worsen or persist or if there are any questions or concerns that arise at home. ED course: Patient is alert and non toxic in appearance in the ED. 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 Patient advised to follow up with pcp and otherwise given strict return precautions. patient understood and agrees with the plan of care. . 08/08 08:39 Order name: Strep; Complete Time: 09:22 [facility] 08/08 08:44 Order name: Influenza Screen (a \\T\\ B); Complete Time: 18:06 [facility] 08/08 08:44 Order name: SARS-COV-2 RT PCR (Document "Date of Onset" if Symptomatic); Complete Time: [facility] 18:06 08/08 09:23 Order name: Throat Culture EDMS Administered Medications: 08:57 Drug: fentaNYL (PF) 25 mcg Route: IM; Site: left deltoid; ss 09:33 Follow up: Response: No adverse reaction; Pain is decreased ss 08:58 Drug: Decadron (dexamethasone) 10 mg Route: IM; Site: right deltoid; ss 09:33 Follow up: Response: No adverse reaction; Pain is decreased ss Disposition: 22:06 Co-signature as Attending Physician, Angel Luis Pelaez DO I was immediately available on-site [facility]3 in the Emergency Department for consultation in the care of the patient.. Disposition Summary: 08/08/21 09:18 Discharge Ordered Location: Home [facility] Condition: Stable [facility] Diagnosis - Acute pharyngitis, unspecified [facility] Followup: [facility] - With: Pavel Curran MD - When: 2 - 3 days - Reason: Recheck today's complaints, Continuance of care, Re-evaluation by your physician Discharge Instructions: - Discharge Summary Sheet [facility] - Pharyngitis [facility] Forms: - Medication Reconciliation Form [facility] - Thank You Letter [facility] - Antibiotic Education [facility] - Prescription Opioid Use [facility] Prescriptions: - cefdinir 300 mg Oral capsule - take 1 capsule by ORAL route every 12 hours for 10 days; 20 capsule; Refills: [facility] 0, Product Selection Permitted Signatures: Dispatcher [employer] Fran Pierson PA PA jmm Smirch, Shelby, RN RN Angel Luis Leonard DO DO ms3
[2021-08-08 10:37] VITALS: BP 158/87; TEMP 97.8; O2SAT 98
== END 2021-08-08 09:33 | disposition home or self-care (01) ==
LOC: ER 08:26
DX: J02.9 Acute pharyngitis, unspecified (principal); R05.9 Cough, unspecified; E11.9 Type 2 diabetes mellitus without complications; I10 Essential (primary) hypertension; Z20.822 Contact with and (suspected) exposure to COVID-19; Z88.5 Allergy status to narcotic agent; Z88.8 Allergy status to other drugs, medicaments and biological substances
CPT/HCPCS: 87070; 87081; 87804 ×2; 96372; 99283; U0003; J3010; J1100

== ENCOUNTER 2022-02-28 13:44 | Emergency (ER) | payer OTHER ==
--- OUTSIDE RECORDS SUMMARY | 2022-02-28 13:53 | XMS REPORT | Continuity of Care Document ---
:[address] [facility] t Address [address] [place] [address] Care Team Providers Name Role Phone Pavel Curran MD Primary Care Physician [phone] Doctor Unassigned, [place] Attending Clinician Unavailable KRYS JEWELL Attending Clinician Unavailable Krys Garcia Attending Clinician Amari Burns Attending Clinician DOUG CABRERA Attending Clinician Unavailable Mayte Linn F Attending Clinician Isaias DEGROOT, Pastora S Attending Clinician Jose Cruz Prakash MD Attending Clinician Laurel JOHNS, Apoorva Attending Clinician Unavailable Jinny Box RN Attending Clinician Unavailable Josr Chaparro MD Attending Clinician Po, [facility] Attending Clinician Unavailable HARINI HUTTON Attending Clinician Unavailable KRYS JEWELL Admitting Clinician Unavailable DOUG CABRERA Admitting Clinician Unavailable HARINI HUTTON Admitting Clinician Unavailable Payers Payer Name Policy Type Policy Number Effective Date Expiration Date Nica [facility]varez [facility] [id number] 2020 00:00:00 [employer] P[employer] [id number] 1989 ADMINISTRATORS 00:00:00 MEDICAID SSI PENDING PENDING 2020 00:00:00 Problems Condition Condition Condition Status Onset Resolution Last Treating Co mments Source Name Details Category Date Date Treatment Clinician Date Migraine Migraine Disease Active Unive rs equivalent equivalent 5-07 it y of 00:00: [place] [address] Medical Branch Loss of Loss of Disease Active Univers taste taste 5-07 ity of 00:00: [address] Branch Nausea Nausea Disease Active 2019- Univers 5-07 ity of 00:00: [place] [address] Medical Branch Cough Cough Disease Active 2019- Univers 5-07 ity of 00:00: [place] [facility] Dehydratio Dehydratio Disease Active U nivers n n 5-07 ity of 00:00: [place] [facility] Loose Loose Disease Active Univers stools stools 5-07 ity of 00:00: [place] [facility] Branch Left sided Left sided Disease Active [facility] numbness [facility] 6[facility]02 [facility] 00:[facility]: Medical [address] [place] [address] Neurologic Neurologic Disease Active [facility] al al 6-01 [facility] symptoms symptoms 00:00: Medica l 00 [place] Abdominal Abdominal Disease Active Uni vers pain pain 3-03 ity of 00:00: [place] [facility] Obesity Obesity Disease Active 2015-03 Univers (BMI (BMI 2-29 ity of 30-39.9) 30-39.9) 00:00: [place] [facility] Branch Gastropare Gastropare Disease Active 2015-03 U nivers sis sis 2-29 ity of 00:00: [place] [facility] Branch H/O: H/O: Disease Active Univers hysterecto hysterecto 9-09 it y of my my 00:00: [place] 00 Medical Branch Morbid Morbid Disease Active Univers obesity obesity 8-30 ity of 00:00: [place] [facility] Chronic Chronic Disease Active Univers abdominal abdominal 1-27 ity of pain pain 00:00: [place] 00 Medical Branch HTN HTN Disease Active Univers (hypertens (hypertens 1-25 it y of ion), ion), 00:00: [place] benign benign 00 Medical Branch 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, [...] 08-28 [facility] adverse 00:00: Medical reaction 00 [place] s Phenobar Drug Active Itching, [facility] Allergy Rash 08-28 [facility] -Atropin 00:00: [facility] Morphine Propensi Active Rash [facility] ty to 08-28 [facility] adverse 00:00: Medical reaction 00 [place] s MUSHROOM DRUG Active Hives 2015-03 Univers INGREDI 2-30 ity of 00:00: [place] [facility] Mushroom Propensi Active Hives 2015-03 Univer s ty to 2-30 ity of adverse 00:00: [place] reaction 00 Medical s Branch LORATADI DRUG Active Palpitations Un [place] NE INGREDI 1-24 ity of 00:00: [place] [facility] PROCHLOR DRUG Active Other-Cmnt Univ ers PERAZINE INGREDI 1-24 ity of EDISYLAT 00:00: [place] E 00 Medical Branch MEPERIDI DRUG Active Rash Univers NE HCL INGREDI 1-24 ity of 00:00: [place] [facility] PHENOBAR DRUG Active Anaphylaxis Uni vers B-HYOSCY 1-24 ity of -ATROPIN 00:00: [place] E-SCOP 00 Medical Branch MORPHINE DRUG Active Rash Univers INGREDI 1-24 ity of 00:00: [place] 00 Medical Branch Loratadi Propensi Active Palpitations Univers ne ty to -24 ity of adverse 00:00: [place] reaction 00 Medical s Branch Prochlor Propensi Active Other - See seizures Univers perazine ty to comments 04-22 ity of Edisylat adverse 00:00: [place] e reaction 00 Medical s Branch Meperidi Propensi Active Rash Univer s ne Hcl ty to 24 ity of adverse 00:00: [place] reaction Medical s Branch Phenobar Propensi Active Anaphylaxis U nivers b-[facility] ty to 24 ity of -Atropin adverse 00:00: [place] e-Scop reaction Medical s Branch Morphine Propensi Active Rash Univer s ty to 24 ity of adverse 00:00: [place] reaction 00 Medical s Branch Social History Social Habit Start Date Stop Date Quantity Comments Source Exposure to Not sure [facility] SARS-CoV-2 (event) [facility] [place] Tobacco use and 2017-08-28 2017-08-[address] [facility] exposure 00:00:00 [facility] Sex Assigned At [address] [address] [facility] 00:[facility] Smoking Status Start Date Stop Date Source Never smoker [facility] Medications Ordered Filled Start Stop Current Ordering Indication Dosage Frequency Signature Comments Components Source Medication Medication Date Date Medication? Clinician (SIG) Name Name HYDROcodone 2021- No 1{tbl} 1 tablet, Univers -acetaminop 03-30 Oral, ONCE i ty of hen (NORCO) 01:15: 00:19 NOW, 1 [place] as 10-325 mg 00 :00 dose, On Medica l tablet 1 Thu [place] tablet 03/29/21 at 1915, Routine clonazePAM Yes .5mg 0.5 mg, Univ ers (KLONOPIN) 11-03 Oral, TID, ity of tablet 0.5 01:00: First dose [place] mg 00 on Fri Medical 11/02/20 at Branch 1999, Until Discontinu ed, Routine pantoprazol 2020- No 40mg 40 mg, Uni vers e 11-03 08 Slow IV ity of (PROTONIX) 01:00: 00:10 Push, [place] injection 00 :00 ONCE, 1 Medical 40 mg dose, Fri Branch 11/02/20 at 2000 NaCl 0.9% 2020- No 1000mL at 999 Uni vers (NS) bolus 11-03 mL/hr, ity of infusion 00:45: 01:05 1,000 mL, [place] 1,000 mL 00 :00 IV Medical Infusion, Branch ONCE, 1 dose, 11/02/20 at 1945, STAT magnesium 2020- No 2g 2 g, IV Univ ers sulfate in 11-02 [place], it y of water 2 23:45: 00:06 ONCE, 1 [place] gram/50 mL 00 :00 dose, Fri Medi nicole (4 %) 11/02/20 at [place] infusion 2 1845, g Routine iopamidol 2020- No [id number] 120mL 120 mL, Univers (ISOVUE 11-02 Intravenou ity o f 370-500 mL) 23:45: 23:45 s, ONCE, 1 [place] injection 00 :00 dose, Fri Medic al 120 mL 11/02/20 at Branch 1845, Routine proMETHazin 2020- No 12.5mg 12.5 mg, Univers e 11-02 IV ity of (PHENERGAN) 23:15: 23:[facility] [place] 12.5 mg in 00 :00 ONCE, 1 Medica l NaCl 0.9% dose, Fri Branc h (NS) 50 mL 11/02/20 at piggyback 1815, 50 mL FENTanyl PF 2020- No 50ug 50 mcg, Un [place] (SUBLIMAZE 11-02 Slow IV ity o f (PF)) 22:15: 22:08 Push, [place] injection 00 :00 ONCE, 1 Medical 50 mcg dose, Fri Branch 11/02/20 at 1715, STAT NaCl 0.9% 2020- No 1000mL at 999 Uni vers (NS) bolus 11-02 mL/hr, ity of infusion 22:00: 00:00 1,000 mL, [place] 1,000 mL 00 :00 IV Medical Infusion, Branch ONCE, 1 dose, 11/02/20 at 1700, STAT methylpredn 2020-0 2020- No 125mg 125 mg, U nivers isolone sod 11-02 08-06 Intravenou i ty of succ 22:00: 22:11 s, ONCE, 1 [place] (SOLU-MEDRO 00 :00 dose, Thu Med ical L) 11/02/20 at Branch injection 1700, STAT 125 mg methylPREDN 2020-0 Yes [id number] Take by Univers ISolone 8-06 mouth ity [...] Indication s: acute pain pantoprazol 2020-0 Yes [id number] 40mg Take 1 Univers e 40 mg EC 8-06 tablet by ity of tablet 00:00: mouth [place] 00 daily. Medical Branch proMETHazin 2020-0 Yes [id number] 25mg Take 1 Univers e 25 mg 8-06 tablet by ity of tablet 00:00: mouth [place] 00 every 6 Medical (six) Branch hours as needed for Nausea and Vomiting (N/V). methylPREDN 2020-0 Yes [id number] Take by Univers ISolone 8-06 mouth ity [...] Indication s: acute pain pantoprazol 2020-0 Yes [id number] 40mg Take 1 Univers e 40 mg EC 8-06 tablet by ity of tablet 00:00: mouth [place] 00 daily. Medical Branch proMETHazin 2020-0 Yes [id number] 25mg Take 1 Univers e 25 mg 8-06 tablet by ity of tablet 00:00: mouth [place] 00 every 6 Medical (six) Branch hours as needed for Nausea and Vomiting (N/V). methylPREDN 202-0 Yes [id number] Take by Univers ISolone 8-06 mouth ity of (MEDROL, 00:00: SEE-INSTRU [place] as OBDULIA,) 4 mg 00 CTIONS. Medica l tablets follow Branch package directions traMADoL 50 Yes [id number] 50mg Take 1 Univ ers mg tablet 8-06 tablet by ity o f 00:00: mouth [place] 00 every 6 Medical (six) Branch hours as needed for Pain (scale 4-6). Indication s: acute pain pantoprazol Yes [id number] 40mg Take 1 Univers e 40 mg EC 8-06 tablet by ity of tablet 00:00: mouth [place] 00 daily. Medical Branch proMETHazin Yes [id number] 25mg Take 1 Univers e 25 mg 8-06 tablet by ity of tablet 00:00: mouth [place] 00 every 6 Medical (six) Branch hours as needed for Nausea and Vomiting (N/V). FENTanyl PF 2020- No 50ug 50 mcg, Un [place] (SUBLIMAZE 5-10 05-10 Slow IV ity o f (PF)) 05:45: 04:39 Push, [place] injection 00 :00 ONCE, 1 Medical 50 mcg dose, [facility] Branch 08/06/20 at 0045, Routine iopamidol 2020- No [id number] 100mL 100 mL, Univers (ISOVUE 5-10 05-10 [...] :00 ONCE, 1 Medical 50 mcg dose, [facility] 08/05/20 at 2315, Routine cefTRIAXone 2020- No 1000mg 1,000 mg, Univers (ROCEPHIN) 5-10 05-10 IV ity of 1,000 mg in 04:00: 03:51 [place] NaCl 0.9% 00 :00 ONCE, 1 Medical (NS) 50 mL dose, [place] Bran ch MINI-BAG 08/05/20 at 2300, 50 mL
Reas on for Anti-Infec tive: Documented Infection< br>Documen jeny Infection Site: Urine
D uration of Therapy: 7 days dicyclomine 2020- No 20mg 20 mg, Uni vers (BENTYL) 5-10 05-10 Intramuscu ity of injection 03:15: 02:50 lar, ONCE, [place] 20 mg 00 :00 1 dose, Medical [place] 08/05/20 Branch at 2215, Routine NaCl 0.9% 2020- No 1000mL at 999 Uni vers (NS) bolus 5-10 05-10 mL/hr, ity of infusion 02:45: 04:21 1,000 mL, [place] 1,000 mL 00 :00 IV Medical Infusion, Branch ONCE, 1 dose, [place] 08/05/20 at 2145, MANFRED NaCl 0.9% 2020- No 1000mL at 999 Uni vers (NS) bolus 5-10 05-10 mL/hr, ity of infusion 02:15: 04:21 1,000 mL, [place] 1,000 mL 00 :00 IV Medical Infusion, Branch ONCE, 1 dose, [place] 08/05/20 at 2115, MANFRED proMETHazin Yes [id number] 25mg Take 1 Univers e 25 mg 5-09 tablet by ity of tablet 00:00: mouth [place] 00 every 6 Medical (six) Branch hours as needed for N/V unresponsi ve to Ondansetro n. zolpidem Yes [id number] 12.5mg Take 1 U nivers 12.5 mg CR 5-09 tablet by ity of tablet 00:00: mouth at [place] 00 bedtime as Medical needed for Branch Sleep. zolpidem Yes [id number] 12.5mg Take 1 U nivers 12.5 mg CR 5-09 tablet by ity of tablet 00:00: mouth at [place] 00 bedtime as Medical needed for Branch Sleep. zolpidem Yes [id number] 12.5mg Take 1 U nivers 12.5 mg CR 5-09 tablet by ity of tablet 00:00: mouth at [place] 00 bedtime as Medical needed for Branch Sleep. zolpidem Yes [id number] 12.5mg Take 1 U nivers 12.5 mg CR 5-09 tablet by ity of tablet 00:00: mouth at [place] 00 bedtime as Medical needed for Branch Sleep. proMETHazin 2020- No [id number] 25mg Take 1 Univers e 25 mg 08-05-06 tablet by ity of tablet 00:00: 00:00 mouth [place] 00 :00 every 6 Medical (six) Branch hours as needed for N/V unresponsi ve to Ondansetro n. dicyclomine 2020- No [id number] 20mg Take 1 Univers 20 mg 08-05 05-17 tablet by ity of tablet 00:00: 04:59 mouth 4 [place] 00 :00 (four) Medical times Branch daily for 7 days. cefdinir 2020- No [id number] 300mg Take 1 U nivers 300 mg 08-05 05-17 capsule by ity of capsule 00:00: 04:59 mouth 2 [place] 00 :00 (two) Medical times Branch daily for 7 days. insulin 2020- No 8U 8 Units, Unive rs regular 07-23 Slow IV ity of human 01:30: 00:52 Push, [place] (HUMULIN R) 00 :00 ONCE, 1 Medic al injection 8 dose, [place] Bra txh Units 07/22/20 at 2030, Routine dexamethaso 2020- [...] IV Medical Infusion, Branch ONCE, 1 dose, [place] 07/22/20 at 1915, MANFRED ketorolac 2020- No 30mg 30 mg, Unive rs (TORADOL) 07-22-25 Slow IV ity of injection 23:45: 22:55 Push, [place] 30 mg 00 :00 ONCE, 1 Medical dose, [facility] 07/22/20 at 1845, Routine
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 Indication s: acute pain ibuprofen Yes [id number] 800mg Take 1 U nivers 800 mg [...] 7-10). Indication s: acute pain ibuprofen Yes [id number] 800mg Take 1 U nivers 800 mg 4-25 tablet by ity of tablet 00:00: mouth [place] 00 every 6 Medical (six) Branch hours as needed for Pain (scale 4-6). ibuprofen Yes [id number] 800mg Take 1 U nivers 800 mg 4-25 tablet by ity of tablet 00:00: mouth [place] 00 every 6 Medical (six) Branch hours as needed for Pain (scale 4-6). ibuprofen Yes [id number] 800mg Take 1 U nivers 800 mg [...] Indication s: acute pain ibuprofen 2020- No [id number] 800mg Take 1 Univers 800 mg 4-25 [...] 2020- No 100ug 100 mcg, Univers (SUBLIMAZE 05-20-20 Slow IV ity o f (PF)) 00:00: 23:04 Push, [place] injection 00 :00 ONCE, 1 Medical 100 mcg dose, Sat Branch 05/19/20 at 1800, STAT proMETHazin 2020-0 Yes [id number] 25mg Take 1 Univers e 25 mg [...] 7-10). Indication s: acute pain proMETHazin Yes [id number] 25mg Insert 1 Univers e 25 mg 2-20 Suppositor ity of suppository 00:00: y into [place] 00 rectum Medical every 4 Branch (four) hours as needed for Nausea and Vomiting (N/V). proMETHazin 2020-0 Yes [id number] 25mg Take 1 Univers e 25 mg [...] Indication s: acute pain proMETHazin 2020-0 Yes [id number] 25mg Insert 1 Univers e 25 mg 2-20 Suppositor ity of suppository 00:00: y into [place] 00 rectum Medical every 4 Branch (four) hours as needed for Nausea and Vomiting (N/V). proMETHazin 2020-0 Yes [id number] 25mg Take 1 Univers e 25 mg 2-20 tablet by ity of tablet 00:00: mouth [place] 00 every 6 Medical (six) Branch hours as needed for Nausea and Vomiting (N/V). traMADoL 50 20200 Yes [id number] 50mg Take 1 Univ ers mg tablet 2-20 tablet by ity o f 00:00: mouth [place] 00 every 6 Medical (six) Branch hours as needed for Pain (scale 7-10). Indication s: acute pain proMETHazin Yes [id number] 25mg Insert 1 Univers e 25 mg 2-20 Suppositor ity of suppository 00:00: y into [place] 00 rectum Medical every 4 Branch (four) hours as needed for Nausea and Vomiting (N/V). proMETHazin Yes [id number] 25mg Take 1 Univers e 25 mg [...] 7-10). Indication s: acute pain proMETHazin Yes [id number] 25mg Insert 1 Univers e 25 mg 2-20 Suppositor ity of suppository 00:00: y into [place] 00 rectum Medical every 4 Branch (four) hours as needed for Nausea and Vomiting (N/V). proMETHazin 2020- No [id number] 25mg Take 1 Univers e 25 mg [...] Indication s: acute pain proMETHazin 2020- No [id number] 25mg Insert 1 Univers e 25 mg 2-20 08-06 Suppositor ity o f suppository 00:00: 00:00 y into [place] as 00 :00 rectum Medical every 4 Branch (four) hours as needed for Nausea and Vomiting (N/V). ibuprofen 2019-03 Yes [id number] 600mg Take 1 Univers 600 mg 2-12 tablet by ity of tablet 00:00: mouth [place] 00 every 6 Medical (six) Branch hours as needed for Pain (scale 4-6). metFORMIN 2020-1 Yes [id number] 500mg Take 1 Univers 500 mg 2-12 tablet by ity of tablet 00:00: mouth 2 00 (two) Medical times Branch daily with meals. cyclobenzap 2020-1 Yes [id number] 10mg Take 1 Univers rine 10 mg 2-12 tablet by ity of tablet 00:00: mouth 3 [place] 00 (three) Medical times Branch daily. ibuprofen 2020-1 Yes [id number] 600mg Take 1 Univers 600 mg 2-12 tablet by ity of tablet 00:00: mouth [place] 00 every 6 Medical (six) Branch hours as needed for Pain (scale 4-6). metFORMIN 2020-1 Yes [id number] 500mg Take 1 Univers 500 mg 2-12 tablet by ity of tablet 00:00: mouth 2 00 (two) Medical times Branch daily with meals. cyclobenzap 2020-1 Yes [id number] 10mg Take 1 Univers rine 10 mg 2-12 tablet by ity of tablet 00:00: mouth 3 00 (three) Medical times Branch daily. ibuprofen 2020-1 Yes [id number] 600mg Take 1 Univers 600 mg 2-12 tablet by ity of tablet 00:00: mouth [place] 00 every 6 Medical (six) Branch hours as needed for Pain (scale 4-6). metFORMIN 2020-1 Yes [id number] 500mg Take 1 Univers 500 mg 2-12 tablet by ity of tablet 00:00: mouth 2 00 (two) Medical times Branch daily with meals. cyclobenzap 2020-1 Yes [id number] 10mg Take 1 Univers rine 10 mg 2-12 tablet by ity of tablet 00:00: mouth 3 00 (three) Medical times Branch daily. ibuprofen 2020-1 Yes [id number] 600mg Take 1 Univers 600 mg 2-12 tablet by ity of tablet 00:00: mouth [place] 00 every 6 Medical (six) Branch hours as needed for Pain (scale 4-6). metFORMIN 2020-1 Yes [id number] 500mg Take 1 Univers 500 mg 2-12 tablet by ity of tablet 00:00: mouth 2 00 (two) Medical times Branch daily with meals. cyclobenzap 2020- Yes [id number] 10mg Take 1 Univers rine 10 mg 2-12 tablet by ity of tablet 00:00: mouth 3 (three) Medical times Branch daily. ibuprofen 2020- Yes [id number] 600mg Take 1 Univers 600 mg 2-12 tablet by ity of tablet 00:00: mouth [place] 00 every 6 Medical (six) Branch hours as needed for Pain (scale 4-6). metFORMIN 2019- Yes [id number] 500mg Take 1 Univers 500 mg 2-12 tablet by ity of tablet 00:00: mouth 2 00 (two) Medical times Branch daily with meals. cyclobenzap 2019-03 Yes [id number] 10mg Take 1 Univers rine 10 mg 2-12 tablet by ity of tablet 00:00: mouth 3 (three) Medical times Branch daily. ibuprofen 2019- Yes [id number] 600mg Take 1 Univers 600 mg 2-12 tablet by ity of tablet 00:00: mouth [place] 00 every 6 Medical (six) Branch hours as needed for Pain (scale 4-6). metFORMIN 2019- Yes [id number] 500mg Take 1 Univers 500 mg 2-12 tablet by ity of tablet 00:00: mouth 2 (two) Medical times Branch daily with meals. cyclobenzap 2019-03 Yes [id number] 10mg Take 1 Univers rine 10 mg 2-12 tablet by ity of tablet 00:00: mouth 3 (three) Medical times Branch daily. ibuprofen 2019- Yes [id number] 600mg Take 1 Univers 600 mg 2-12 tablet by ity of tablet 00:00: mouth [place] 00 every 6 Medical (six) Branch hours as needed for Pain (scale 4-6). metFORMIN 2019- Yes [id number] 500mg Take 1 Univers 500 mg 2-12 tablet by ity of tablet 00:00: mouth 2 (two) Medical times Branch daily with meals. cyclobenzap 2019- Yes [id number] 10mg Take 1 Univers rine 10 mg 2-12 tablet by ity of tablet 00:00: mouth 3 (three) Medical times Branch daily. proMETHazin 2019-03- No [id number] 25mg Take 1 Univers e 25 mg [...] Medic al injection 5 Mon Branch Units 08/22/19 at 0300, Routine FENTanyl PF 2019-0 2020- No 50ug 50 mcg, Un [place] (SUBLIMAZE 5-25 05-25 Slow IV ity o f (PF)) 07:30: 07:05 Push, [place] injection 00 :00 ONCE, 1 Medical 50 mcg dose, [facility] Branch 08/22/19 at 0230, Routine FENTanyl PF 2019-0 2020- No 75ug 75 mcg, Un [place] (SUBLIMAZE 5-25 05-25 Slow IV ity o f (PF)) 06:15: 05:20 Push, [place] injection 00 :00 ONCE, 1 Medical 75 mcg dose, [facility] Branch 08/22/19 at 0115, Routine proMETHazin [...] mouth ity of 60 mg 05:29: daily. [place] tablet 28 Medical Branch carvediloL 2020-0 Yes 12.5mg Take 12.5 Univers 12.5 mg 5-25 mg by ity of tablet 05:29: mouth 2 [place] [address] (two) Medical times [place] daily with meals. propranolol 2020-0 Yes 60mg Take 60 mg Univers (INDERAL) 5-25 by mouth ity of 60 mg 05:29: daily. [place] tablet 28 Medical Branch carvediloL 2020-0 Yes 12.5mg Take 12.5 Univers 12.5 mg 5-25 mg by ity of tablet 05:29: mouth 2 [place] [address] (two) Medical times [place] daily with meals. propranolol 2020-0 Yes 60mg Take 60 mg Univers (INDERAL) 5-25 by mouth ity of 60 mg 05:29: daily. [facility] 28 [facility] carvediloL 2020-0 Yes 12.5mg Take 12.5 Univers 12.5 mg 5-25 mg by ity of tablet 05:29: mouth 2 [place] [address] [facility] times [place] daily with meals. propranolol 2020-0 Yes 60mg Take 60 mg Univers (INDERAL) 5-25 by mouth ity of 60 mg 05:29: daily. [facility] 28 [facility] carvediloL 2020-0 Yes 12.5mg Take 12.5 Univers 12.5 mg 5-25 mg by ity of tablet 05:29: mouth 2 [place] [address] [facility] daily with meals. propranolol 2020-0 Yes 60mg Take 60 mg Univers (INDERAL) 5-25 by mouth ity of 60 mg 05:29: daily. [address] carvediloL 2020-0 Yes 12.5mg Take 12.5 Univers 12.5 mg 5-25 mg by ity of tablet 05:29: mouth 2 [place] [address] ([facility] daily with meals. propranolol 2020-0 Yes 60mg Take 60 mg Univers (INDERAL) 5-25 by mouth ity of 60 mg 05:29: daily. [address] carvediloL 2020-0 Yes 12.5mg Take 12.5 Univers 12.5 mg 5-25 mg by ity of tablet 05:29: mouth 2 [place] [address] ([facility] daily with meals. ARIPiprazol 2020-0 Yes 2mg Take 2 mg U nivers e (ABILIFY) 5-25 by mouth ity of 2 mg tablet 05:28: daily. [address] ARIPiprazol 2020-0 Yes 2mg Take 2 mg U nivers e (ABILIFY) 5-25 by mouth ity of 2 mg tablet 05:28: daily. [address] ARIPiprazol 2020-0 Yes 2mg Take 2 mg U nivers e (ABILIFY) 5-25 by mouth ity of 2 mg tablet 05:28: daily. [address] ARIPiprazol 2020-0 Yes 2mg Take 2 mg U nivers e (ABILIFY) 5-25 by mouth ity of 2 mg tablet 05:28: daily. [address] ARIPiprazol 2020-0 Yes 2mg Take 2 mg U nivers e (ABILIFY) 5-25 by mouth ity of 2 mg tablet 05:28: daily. [address] ARIPiprazol 2020-0 Yes 2mg Take 2 mg U nivers e (ABILIFY) 5-25 by mouth ity of 2 mg tablet 05:28: daily. [address] propranolol 2020-0 Yes 60mg Take 60 mg Univers (INDERAL) 5-25 by mouth ity of 60 mg 00:29: daily. [address] carvediloL 2020-0 Yes 12.5mg Take 12.5 Univers 12.5 mg 5-25 mg by ity of tablet 00:29: mouth 2 [place] [address] (two) Medical times [place] daily with meals. propranolol 2020-0 Yes 60mg Take 60 mg Univers (INDERAL) 5-25 by mouth ity of 60 mg 00:29: daily. [address] carvediloL 2020-0 Yes 12.5mg Take 12.5 Univers 12.5 mg 5-25 mg by ity of tablet 00:29: mouth 2 [place] [address] (two) Medical times [place] daily with meals. ARIPiprazol 2020-0 Yes 2mg Take 2 mg U nivers e (ABILIFY) 5-25 by mouth ity of 2 mg tablet 00:28: daily. [address] ARIPiprazol 2020-0 Yes 2mg Take 2 mg U nivers e (ABILIFY) 5-25 by mouth ity of 2 mg tablet 00:28: daily. [address] dicyclomine 2020-0 Yes [id number] 20mg Take 1 Univers 20 mg 5-25 tablet by ity of tablet 00:00: mouth [place] 00 every 6 Medical (six) Branch hours as needed for Abdominal pain. proMETHazin 2020-0 Yes [id number] 25mg Take 1 U nivers e 25 mg 5-25 tablet by ity of tablet 00:00: mouth [place] 00 every 6 Medical (six) Branch hours as needed for Nausea and Vomiting (N/V). dicyclomine 2020-0 Yes [id number] 20mg Take 1 Univers 20 mg 5-25 tablet by ity of tablet 00:00: mouth [place] 00 every 6 Medical (six) Branch hours as needed for Abdominal pain. dicyclomine 2020-0 Yes [id number] 20mg Take 1 Univers 20 mg 5-25 tablet by ity of tablet 00:00: mouth [place] 00 every 6 Medical (six) Branch hours as needed for Abdominal pain. dicyclomine 2020-0 Yes [id number] 20mg Take 1 Univers 20 mg 5-25 tablet by ity of tablet 00:00: mouth [place] 00 every 6 Medical (six) Branch hours as needed for Abdominal pain. dicyclomine 2020-0 Yes [id number] 20mg Take 1 Univers 20 mg 5-25 tablet by ity of tablet 00:00: mouth [place] 00 every 6 Medical (six) Branch hours as needed for Abdominal pain. dicyclomine 2020-0 Yes [id number] 20mg Take 1 Univers 20 mg 5-25 tablet by ity of tablet 00:00: mouth [place] 00 every 6 Medical (six) Branch hours as needed for Abdominal pain. dicyclomine 2020-0 Yes [id number] 20mg Take 1 Univers 20 mg 5-25 tablet by ity of tablet 00:00: mouth [place] 00 every 6 Medical (six) Branch hours as needed for Abdominal pain. dicyclomine 2020-0 Yes [id number] 20mg Take 1 [facility] 20 mg 5-25 tablet by ity of tablet 00:00: mouth [place] 00 every 6 Medical (six) Branch hours as needed for Abdominal pain. dicyclomine 2020-0 Yes [id number] 20mg Take 1 [facility] 20 mg 5-25 tablet by ity of tablet 00:00: mouth [place] 00 every 6 Medical (six) Branch hours as needed for Abdominal pain. dicyclomine 2020-0 Yes [id number] 20mg Take 1 [facility] 20 mg 5-25 tablet by ity of tablet 00:00: mouth [place] 00 every 6 Medical (six) Branch hours as needed for Abdominal pain. dicyclomine 2020-0 Yes [id number] 20mg Take 1 [facility] 20 mg 5-25 tablet by ity of tablet 00:00: mouth [place] 00 every 6 Medical (six) Branch hours as needed for Abdominal pain. dicyclomine 2020-0 Yes [id number] 20mg Take 1 [facility] 20 mg 5-25 tablet by ity of tablet 00:00: mouth [place] 00 every 6 Medical (six) Branch hours as needed for Abdominal pain. dicyclomine 2020-0 Yes [id number] 20mg Take 1 [facility] 20 mg 5-25 tablet by ity of tablet 00:00: mouth [place] 00 every 6 Medical (six) Branch hours as needed for Abdominal pain. dicyclomine 2020-0 Yes [id number] 20mg Take 1 [facility] 20 mg 5-25 tablet by ity of tablet 00:00: mouth [place] 00 every 6 Medical (six) Branch hours as needed for Abdominal pain. dicyclomine 2020-0 Yes [id number] 20mg Take 1 [facility] 20 mg 5-25 tablet by ity of tablet 00:00: mouth [place] 00 every 6 Medical (six) Branch hours as needed for Abdominal pain. dicyclomine 2020-0 Yes [id number] 20mg Take 1 [facility] 20 mg 5-25 tablet by ity of tablet 00:00: mouth [place] 00 every 6 Medical (six) Branch hours as needed for Abdominal pain. proMETHazin 2019-0 2020- No [id number] 25mg Take 1 [facility] e 25 mg 5-25 02-20 tablet by ity of tablet 00:00: 00:00 mouth [place] 00 :00 every 6 Medical (six) Branch hours as needed for Nausea and Vomiting (N/V). ARIPiprazol 2020-0 Yes 2mg Take 2 mg U nivers e (ABILIFY) 5-07 by mouth ity of 2 mg tablet 19:53: daily. [place] [address] Medical Branch tiZANidine 2020-0 Yes 4mg Take 4 mg [facility] (ZANAFLEX) 5-07 by mouth 2 ity of 4 mg 19:53: (two) [place] capsule 38 times Medical daily. Branch citalopram 2020-0 Yes 40mg Take 40 mg U nivers (CELEXA) 40 5-07 by mouth ity of mg tablet 19:53: daily. [place] [address] Medical Branch clonazePAM 2020-0 Yes Take by [facility] ers (KLONOPIN) 5-07 mouth 2 ity of 0.5 mg 19:53: (two) [place] disintegrat 38 times Medical ing tablet daily as Branc h needed for Anxiety. ZN 2020-0 Yes Take by [facility] GLUC/PUMP 5-07 mouth. ity of SEED 19:53: [place] OIL/SAW PAL 38 Medical (PROPALMEX Branch ORAL) propranolol 2020-0 Yes 60mg Take 60 mg [facility] (INDERAL) 5-07 by mouth ity of 60 mg 19:53: daily. [place] tablet 38 Medical Branch butorphanol 2020-0 Yes 1{spray Use 1 [facility] [place] (STADOL) 10 5-07 } [place] in ity of mg/mL nasal 19:53: each [...] by ity of tablet 19:53: mouth at [place] [address] bedtime as Medical needed for Branch Sleep. ARIPiprazol 2020-0 Yes 2mg Take 2 mg U nivers e (ABILIFY) 5-07 by mouth ity of 2 mg tablet 19:53: [facility]. [facility] tiZAN[facility] 2020-0 Yes 4mg Take 4 mg [facility] [place] (ZANAFLEX) 5-07 by mouth 2 ity of 4 mg 19:53: (two) [place] capsule 38 times Medical daily. Branch citalopram 2020-0 Yes 40mg Take 40 mg U nivers (CELEXA) 40 5-07 by mouth ity of mg tablet 19:53: daily. [place] [address] Medical Branch clonazePAM 2020-0 Yes Take by [facility] ers (KLONOPIN) 5-07 mouth 2 ity of 0.5 mg 19:53: (two) [place] disintegrat 38 times Medical ing tablet daily as Branc h needed for Anxiety. ZN 2020-0 Yes Take by [facility] GLUC/PUMP 5-07 mouth. ity of SEED 19:53: [place] OIL/SAW PAL 38 Medical (PROPALMEX Branch ORAL) propranolol 2020-0 Yes 60mg Take 60 mg [facility] (INDERAL) 5-07 by mouth ity of 60 mg 19:53: daily. [place] tablet 38 Medical Branch butorphanol 2020-0 Yes 1{spray Use 1 [facility] [place] (STADOL) 10 5-07 } [place] in ity of mg/mL nasal 19:53: each [place] spray 38 nostril as Medical needed for Branch Pain. METFORMIN 2020-0 Yes 500mg Take 500 [facility] vers HCL 5-07 mg by ity of (METFORMIN 19:53: [place] ORAL[place] 38 (two) Medical times Branch daily. zolpidem 2020-0 Yes 12.5mg Take 12.5 [facility] [place] 12.5 mg CR 5-07 mg by ity of tablet 19:53: mouth at [place] [address] bedtime as Medical needed for Branch Sleep. ARIPiprazol 2020-0 Yes 2mg Take 2 mg U nivers e (ABILIFY) 5-07 by mouth ity of 2 mg tablet 19:53: daily. [place] 38 [place] Branch tiZANidine 2020-0 Yes 4mg Take 4 mg [facility] [place] (ZANAFLEX) 5-07 by mouth 2 ity of 4 mg 19:53: (two) [place] capsule 38 times Medical daily. Branch citalopram 2020-0 Yes 40mg Take 40 mg U nivers (CELEXA) 40 5-07 by mouth ity of mg tablet 19:53: daily. [place] [address] Medical Branch clonazePAM 2020-0 Yes Take by [facility] ers (KLONOPIN) 5-07 mouth 2 ity of 0.5 mg 19:53: (two) [place] disintegrat 38 times Medical ing tablet daily as Branc h needed for Anxiety. ZN 2020-0 Yes Take by [facility] GLUC/PUMP 5-07 mouth. ity of SEED 19:53: [place] OIL/SAW PAL 38 Medical (PROPALMEX Branch ORAL) propranolol 2020-0 Yes 60mg Take 60 mg [facility] (INDERAL) 5-07 by mouth ity of 60 mg 19:53: daily. [place] tablet 38 Medical Branch butorphanol 2020-0 Yes 1{spray Use 1 [facility] [place] (STADOL) 10 5-07 } [place] in ity of mg/mL nasal 19:53: each [place] spray 38 nostril as Medical needed for Branch Pain. METFORMIN 2020-0 Yes 500mg Take 500 [facility] vers HCL 5-07 mg by ity of (METFORMIN 19:53: mouth [place] ORAL[place] 38 (two) Medical times Branch daily. zolpidem 2020-0 Yes 12.5mg Take 12.5 [facility] [place] 12.5 mg CR 5-07 mg by ity of tablet 19:53: mouth at [place] 38 bedtime as Medical needed for Branch Sleep. ARIPiprazol 2020-0 Yes 2mg Take 2 mg U nivers e (ABILIFY) 5-07 by mouth ity of 2 mg tablet 19:53: daily. [address] Branch tiZANidine 2020-0 Yes 4mg Take 4 mg [facility] [place] (ZANAFLEX) 5-07 by mouth 2 ity of 4 mg 19:53: (two) [place] capsule 38 times Medical daily. Branch citalopram 2020-0 Yes 40mg Take 40 mg U nivers (CELEXA) 40 5-07 by mouth ity of mg tablet 19:53: daily. [place] [address] Medical Branch clonazePAM 2020-0 Yes Take by [facility] ers (KLONOPIN) 5-07 mouth 2 ity of 0.5 mg 19:53: (two) [place] disintegrat 38 times Medical ing tablet daily as Branc h needed for Anxiety. ZN 2020-0 Yes Take by [facility] GLUC/PUMP 5-07 mouth. ity of SEED 19:53: [place] OIL/SAW PAL 38 Medical (PROPALMEX Branch ORAL) propranolol 2020-0 Yes 60mg Take 60 mg [facility] (INDERAL) 5-07 by mouth ity of 60 mg 19:53: daily. [place] tablet Medical Branch butorphanol 2020-0 Yes 1{spray Use 1 [facility] [place] (STADOL) 10 5-07 } [place] in ity of mg/mL nasal 19:53: each [place] spray 38 nostril as Medical needed for Branch Pain. METFORMIN 2020-0 Yes 500mg Take 500 [facility] vers HCL 5-07 mg by ity of (METFORMIN 19:53: mouth 2 [facility] s ORAL) 38 (two) Medical times Branch daily. zolpidem 2020-0 Yes 12.5mg Take 12.5 [facility] [place] 12.5 mg CR 5-07 mg by ity of tablet 19:53: mouth at [place] 38 bedtime as Medical needed for Branch Sleep. ARIPiprazol 2020-0 Yes 2mg Take 2 mg U nivers e (ABILIFY) 5-07 by mouth ity of 2 mg tablet 19:53: daily. [address] Branch tiZANidine 2020-0 Yes 4mg Take 4 mg [facility] [place] (ZANAFLEX) 5-07 by mouth 2 ity of 4 mg 19:53: (two) [place] capsule 38 times Medical daily. Branch citalopram 2020-0 Yes 40mg Take 40 mg U nivers (CELEXA) 40 5-07 by mouth ity of mg tablet 19:53: daily. [place] [address] Medical Branch clonazePAM 2020-0 Yes Take by [facility] ers (KLONOPIN) 5-07 mouth 2 ity of 0.5 mg 19:53: (two) [place] disintegrat 38 times Medical ing tablet daily as Branc h needed for Anxiety. ZN 2020-0 Yes Take by [facility] GLUC/PUMP 5-07 mouth. ity of SEED 19:53: [place] OIL/SAW PAL Medical (PROPALMEX Branch ORAL) propranolol 2020-0 Yes 60mg Take 60 mg [facility] (INDERAL) 5-07 by mouth ity of 60 mg 19:53: daily. [place] tablet Medical Branch butorphanol 2020-0 Yes 1{spray Use 1 [facility] [place] (STADOL) 10 5-07 } [place] in ity of mg/mL nasal 19:53: each [place] spray 38 nostril as Medical needed for Branch Pain. METFORMIN 2020-0 Yes 500mg Take 500 [facility] vers HCL 5-07 mg by ity of (METFORMIN 19:53: mouth [place] ORAL[place] 38 (two) Medical times Branch daily. zolpidem 2020-0 Yes 12.5mg Take 12.5 [facility] [place] 12.5 mg CR 5-07 mg by ity of tablet 19:53: mouth at [place] [address] bedtime as Medical needed for Branch Sleep. ARIPiprazol 2020-0 Yes 2mg Take 2 mg U nivers e (ABILIFY) 5-07 by mouth ity of 2 mg tablet 19:53: daily. [place] [facility] tiZANidine 2020-0 Yes 4mg Take 4 mg [facility] [place] (ZANAFLEX) 5-07 by mouth 2 ity of 4 mg 19:53: (two) [place] capsule 38 times Medical daily. Branch citalopram 2020-0 Yes 40mg Take 40 mg U nivers (CELEXA) 40 5-07 by mouth ity of mg tablet 19:53: daily. [place] [address] Medical Branch clonazePAM 2020-0 Yes Take by [facility] ers (KLONOPIN) 5-07 mouth 2 ity of 0.5 mg 19:53: (two) [place] disintegrat 38 times Medical ing tablet daily as Branc h needed for Anxiety. ZN 2020-0 Yes Take by [facility] GLUC/PUMP 5-07 mouth. ity of SEED 19:53: [place] OIL/SAW PAL 38 Medical (PROPALMEX Branch ORAL) propranolol 2020-0 Yes 60mg Take 60 mg [facility] (INDERAL) 5-07 by mouth ity of 60 mg 19:53: daily. [place] tablet 38 Medical Branch butorphanol 2020-0 Yes 1{spray Use 1 [facility] [place] (STADOL) 10 5-07 } [place] in ity of mg/mL nasal 19:53: each [place] spray 38 nostril as Medical needed for Branch Pain. METFORMIN 2020-0 Yes 500mg Take 500 [facility] vers HCL 5-07 mg by ity of (METFORMIN 19:53: mouth [place] ORAL[place] 38 (two) Medical times Branch daily. zolpidem 2020-0 Yes 12.5mg Take 12.5 [facility] [place] 12.5 mg CR 5-07 mg by ity of tablet 19:53: mouth at [place] [address] bedtime as Medical needed for Branch Sleep. ARIPiprazol 2020-0 Yes 2mg Take 2 mg U nivers e (ABILIFY) 5-07 by mouth ity of 2 mg tablet 19:53: daily. [facility] tiZANidine 2020-0 Yes 4mg Take 4 mg [facility] [place] (ZANAFLEX) 5-07 by mouth 2 ity of 4 mg 19:53: (two) [place] capsule 38 times Medical daily. Branch citalopram 2020-0 Yes 40mg Take 40 mg U nivers (CELEXA) 40 5-07 by mouth ity of mg tablet 19:53: daily. [address] Branch clonazePAM 2020-0 Yes Take by [facility] ers (KLONOPIN) 5-07 mouth 2 ity of 0.5 mg 19:53: (two) [place] disintegrat 38 times Medical ing tablet daily as Branc h needed for Anxiety. ZN 2020-0 Yes Take by [facility] GLUC/PUMP 5-07 mouth. ity of SEED 19:53: [place] OIL/SAW PAL 38 Medical (PROPALMEX Branch ORAL) propranolol 2020-0 Yes 60mg Take 60 mg [facility] (INDERAL) 5-07 by mouth ity of 60 mg 19:53: daily. [place] tablet Medical Branch butorphanol 2020-0 Yes 1{spray Use 1 [facility] [place] (STADOL) 10 5-07 } [place] in ity of mg/mL nasal 19:53: each [...] by ity of tablet 19:53: mouth at [place] 38 bedtime as Medical needed for Branch Sleep. tiZANidine 2020-0 Yes 4mg Take 4 mg [facility] [place] (ZANAFLEX) 5-07 by mouth 2 ity of 4 mg 19:53: (two) [place] capsule 38 times Medical daily. Branch citalopram 2020-0 Yes 40mg Take 40 mg U nivers (CELEXA) 40 5-07 by mouth ity of mg tablet 19:53: daily. [place] [address] Medical Branch clonazePAM 2020-0 Yes Take by [facility] ers (KLONOPIN) 5-07 mouth 2 ity of 0.5 mg 19:53: (two) [place] disintegrat 38 times Medical ing tablet daily as Branc h needed for Anxiety. ZN 2020-0 Yes Take by [facility] GLUC/PUMP 5-07 mouth. ity of SEED 19:53: [place] OIL/SAW PAL 38 Medical (PROPALMEX Branch ORAL) butorphanol 2020-0 Yes 1{spray Use 1 [facility] [place] (STADOL) 10 5-07 } [place] in ity of mg/mL nasal 19:53: each [place] spray 38 nostril as Medical needed for Branch Pain. METFORMIN 2020-0 Yes 500mg Take 500 [facility] vers HCL 5-07 mg by ity of (METFORMIN 19:53: mouth 2 [place] ORAL[place] 38 (two) Medical times Branch daily. zolpidem 2020-0 Yes 12.5mg Take 12.5 [facility] [place] 12.5 mg CR 5-07 mg by ity of tablet 19:53: mouth at [place] 38 bedtime as Medical needed for Branch Sleep. tiZANidine 2020-0 Yes 4mg Take 4 mg [facility] [place] (ZANAFLEX) 5-07 by mouth 2 ity of 4 mg 19:53: (two) [place] capsule 38 times Medical daily. Branch citalopram 2020-0 Yes 40mg Take 40 mg U nivers (CELEXA) 40 5-07 by mouth ity of mg tablet 19:53: daily. [place] [address] Medical Branch clonazePAM 2020-0 Yes Take by [facility] ers (KLONOPIN) 5-07 mouth 2 ity of 0.5 mg 19:53: (two) [place] disintegrat 38 times Medical ing tablet daily as Branc h needed for Anxiety. ZN 2020-0 Yes Take by [facility] GLUC/PUMP 5-07 mouth. ity of SEED 19:53: [place] OIL/SAW PAL 38 Medical (PROPALMEX Branch ORAL) butorphanol 2020-0 Yes 1{spray Use 1 [facility] [place] (STADOL) 10 5-07 } [place] in ity of mg/mL nasal 19:53: each [...] by ity of tablet 19:53: mouth at [place] [address] bedtime as Medical needed for Branch Sleep. tiZANidine 2020-0 Yes 4mg Take 4 mg [facility] [place] (ZANAFLEX) 5-07 by mouth 2 ity of 4 mg 19:53: (two) [place] capsule 38 times Medical daily. Branch citalopram 2020-0 Yes 40mg Take 40 mg U nivers (CELEXA) 40 5-07 by mouth ity of mg tablet 19:53: daily. [place] [address] Medical Branch clonazePAM 2020-0 Yes Take by [facility] ers (KLONOPIN) 5-07 mouth 2 ity of 0.5 mg 19:53: (two) [place] disintegrat 38 times Medical ing tablet daily as Branc h needed for Anxiety. ZN 2020-0 Yes Take by [facility] GLUC/PUMP 5-07 mouth. ity of SEED 19:53: [place] OIL/SAW PAL 38 Medical (PROPALMEX Branch ORAL) butorphanol 2020-0 Yes 1{spray Use 1 [facility] [place] (STADOL) 10 5-07 } [place] in ity of mg/mL nasal 19:53: each [place] spray 38 nostril as Medical needed for Branch Pain. METFORMIN 2020-0 Yes 500mg Take 500 [facility] vers HCL 5-07 mg by ity of (METFORMIN 19:53: mouth 2 [place] ORAL) 38 (two) Medical times Branch daily. zolpidem 2020-0 Yes 12.5mg Take 12.5 [place] 12.5 mg CR 5-07 mg by ity of tablet 19:53: mouth at [place] 38 bedtime as Medical needed for Branch Sleep. tiZANidine 2020-0 Yes 4mg Take 4 mg [facility] [place] (ZANAFLEX) 5-07 by mouth 2 ity of 4 mg 19:53: (two) [place] capsule 38 times Medical daily. Branch citalopram 2020-0 Yes 40mg Take 40 mg U nivers (CELEXA) 40 5-07 by mouth ity of mg tablet 19:53: daily. [place] [address] Medical Branch clonazePAM 2020-0 Yes Take by [facility] ers (KLONOPIN) 5-07 mouth 2 ity of 0.5 mg 19:53: (two) [place] disintegrat 38 times Medical ing tablet daily as Branc h needed for Anxiety. ZN 2020-0 Yes Take by [facility] GLUC/PUMP 5-07 mouth. ity of SEED 19:53: [place] OIL/SAW [facility] 38 Medical (PROPALMEX Branch ORAL) butorphanol 2020-0 Yes 1{spray Use 1 [facility] [place] (STADOL) 10 5-07 } [place] in ity of mg/mL nasal 19:53: each [place] spray 38 nostril as Medical needed for Branch Pain. METFORMIN 2020-0 Yes 500mg Take 500 [facility] vers HCL 5-07 mg by ity of (METFORMIN 19:53: mouth 2 [place] ORAL) 38 (two) Medical times Branch daily. zolpidem 2020-0 Yes 12.5mg Take 12.5 [facility] [place] 12.5 mg CR 5-07 mg by ity of tablet 19:53: mouth at [place] [address] bedtime as Medical needed for Branch Sleep. tiZANidine 2020-0 Yes 4mg Take 4 mg [facility] [place] (ZANAFLEX) 5-07 by mouth 2 ity of 4 mg 19:53: (two) [place] capsule 38 times Medical daily. Branch citalopram 2020-0 Yes 40mg Take 40 mg U nivers (CELEXA) 40 5-07 by mouth ity of mg tablet 19:53: daily. [place] [address] Medical Branch clonazePAM 2020-0 Yes Take by [facility] ers (KLONOPIN) 5-07 mouth 2 ity of 0.5 mg 19:53: (two) [place] disintegrat 38 times Medical ing tablet daily as Branc h needed for Anxiety. ZN 2020-0 Yes Take by [facility] GLUC/PUMP 5-07 mouth. ity of SEED 19:53: [place] OIL/SAW PAL 38 Medical (PROPALMEX Branch ORAL) butorphanol 2020-0 Yes 1{spray Use 1 [facility] [place] (STADOL) 10 5-07 } [place] in ity of mg/mL nasal 19:53: each [...] by ity of tablet 19:53: mouth at [place] 38 bedtime as Medical needed for Branch Sleep. tiZANidine 2020-0 Yes 4mg Take 4 mg [facility] [place] (ZANAFLEX) 5-07 by mouth 2 ity of 4 mg 19:53: (two) [place] capsule 38 times Medical daily. Branch citalopram 2020-0 Yes 40mg Take 40 mg U nivers (CELEXA) 40 5-07 by mouth ity of mg tablet 19:53: daily. [place] [address] Medical Branch clonazePAM 2020-0 Yes Take by [facility] ers (KLONOPIN) 5-07 mouth 2 ity of 0.5 mg 19:53: (two) [place] disintegrat 38 times Medical ing tablet daily as Branc h needed for Anxiety. ZN 2020-0 Yes Take by [facility] GLUC/PUMP 5-07 mouth. ity of SEED 19:53: [place] OIL/SAW PAL 38 Medical (PROPALMEX Branch ORAL) butorphanol 2020-0 Yes 1{spray Use 1 [facility] [place] (STADOL) 10 5-07 } [place] in ity of mg/mL nasal 19:53: each [place] spray 38 nostril as Medical needed for Branch Pain. METFORMIN 2020-0 Yes 500mg Take 500 [facility] vers HCL 5-07 mg by ity of (METFORMIN 19:53: mouth 2 [place] ORAL) 38 (two) Medical times Branch daily. zolpidem 2020-0 Yes 12.5mg Take 12.5 [facility] [place] 12.5 mg CR 5-07 mg by ity of tablet 19:53: mouth at [place] 38 bedtime as Medical needed for Branch Sleep. tiZANidine 2020-0 Yes 4mg Take 4 mg [facility] [place] (ZANAFLEX) 5-07 by mouth 2 ity of 4 mg 14:53: (two) [place] capsule 38 times Medical daily. Branch citalopram 2020-0 Yes 40mg Take 40 mg U nivers (CELEXA) 40 5-07 by mouth ity of mg tablet 14:53: daily. [place] [address] Medical Branch clonazePAM 2020-0 Yes Take by [facility] ers (KLONOPIN) 5-07 mouth 2 ity of 0.5 mg 14:53: (two) [place] disintegrat 38 times Medical ing tablet daily as Branc h needed for Anxiety. ZN 2020-0 Yes Take by [facility] GLUC/PUMP 5-07 mouth. ity of SEED 14:53: [place] OIL/SAW [facility] 38 Medical (PROPALMEX Branch ORAL) butorphanol 2020-0 Yes 1{spray Use 1 [facility] [place] (STADOL) 10 5-07 } [place] in ity of mg/mL nasal 14:53: each [place] spray 38 nostril as Medical needed for Branch Pain. METFORMIN 2020-0 Yes 500mg Take 500 [facility] vers HCL 5-07 mg by ity of (METFORMIN 14:53: mouth 2 [place] ORAL) 38 (two) Medical times Branch daily. zolpidem 2020-0 Yes 12.5mg Take 12.5 [facility] [place] 12.5 mg CR 5-07 mg by ity of tablet 14:53: mouth at [place] [address] bedtime as Medical needed for Branch Sleep. tiZANidine 2020-0 Yes 4mg Take 4 mg [facility] [place] (ZANAFLEX) 5-07 by mouth 2 ity of 4 mg 14:53: (two) [place] capsule 38 times Medical daily. Branch citalopram 2020-0 Yes 40mg Take 40 mg U nivers (CELEXA) 40 5-07 by mouth ity of mg tablet 14:53: daily. [place] [address] Medical Branch clonazePAM 2020-0 Yes Take by [facility] ers (KLONOPIN) 5-07 mouth 2 ity of 0.5 mg 14:53: (two) [place] disintegrat 38 times Medical ing tablet daily as Branc h needed for Anxiety. ZN 2020-0 Yes Take by [facility] GLUC/PUMP 5-07 mouth. ity of SEED 14:53: [place] OIL/SAW PAL 38 Medical (PROPALMEX Branch ORAL) butorphanol 2020-0 Yes 1{spray Use 1 [facility] [place] (STADOL) 10 5-07 } [place] in ity of mg/mL nasal 14:53: each [...] needed for Branch Sleep. acetaminoph 2020-0 Yes [id number] 650mg Take 1 [facility] en 650 mg 5-07 tablet by ity o f CR tablet 00:00: mouth [place] 00 every 8 Medical (eight) Branch hours as needed for Pain or Fever. bromphenira 2020-0 Yes [id number] 10mL Take 10 mL [facility] mine-pseudo 5-07 by mouth 4 it y of ephedrine-D 00:00: (four) [place] M (BROMFED 00 times Medical DM) 2-30-10 daily as Bran ch mg/5 mL needed for syrup Cough. Bismuth 2020-0 Yes [id number] 262mg Take 1 [facility] Subsalicyla 5-07 tablet by ity of te 00:00: mouth 4 [place] (PEPTO-BISM 00 (four) Medica l OL) 262 mg times Branch tablet daily as needed (diarrhea) . proMETHazin 2020-0 Yes [id number] 25mg Take 1 [facility] e 25 mg 5-07 tablet by ity of tablet 00:00: mouth [place] 00 every 6 Medical (six) Branch hours as needed for Nausea and Vomiting (N/V). acetaminoph 2020-0 Yes [id number] 650mg Take 1 [facility] en 650 mg 5-07 tablet by ity o f CR tablet 00:00: mouth [place] 00 every 8 Medical (eight) Branch hours as needed for Pain or Fever. bromphenira 2020-0 Yes [id number] 10mL Take 10 mL [facility] mine-pseudo 5-07 by mouth 4 it y of ephedrine-D 00:00: (four) [place] M (BROMFED 00 times Medical DM) 2-30-10 daily as Bran ch mg/5 mL needed for syrup Cough. Bismuth 2020-0 Yes [id number] 262mg Take 1 [facility] Subsalicyla 5-07 tablet by ity of te 00:00: mouth 4 [place] (PEPTO-BISM 00 (four) Medica l OL) 262 mg times Branch tablet daily as needed (diarrhea) . proMETHazin 2020-0 Yes [id number] 25mg Take 1 [facility] e 25 mg 5-07 tablet by ity of tablet 00:00: mouth [place] 00 every 6 Medical (six) Branch hours as needed for Nausea and Vomiting (N/V). acetaminoph 2020-0 Yes [id number] 650mg Take 1 [facility] en 650 mg 5-07 tablet by ity o f CR tablet 00:00: mouth [place] 00 every 8 Medical (eight) Branch hours as needed for Pain or Fever. bromphenira 2020-0 Yes [id number] 10mL Take 10 mL [facility] mine-pseudo 5-07 by mouth 4 it y of ephedrine-D 00:00: (four) [place] M (BROMFED 00 times Medical DM) 2-30-10 daily as Bran ch mg/5 mL needed for syrup Cough. Bismuth 2020-0 Yes [id number] 262mg Take 1 [facility] [place] Subsalicyla 5-07 tablet by ity of te 00:00: mouth 4 [place] (PEPTO-BISM 00 (four) Medica l OL) 262 mg times Branch tablet daily as needed (diarrhea) . proMETHazin 2020-0 Yes [id number] 25mg Take 1 [facility] e 25 mg 5-07 tablet by ity of tablet 00:00: mouth [place] 00 every 6 Medical (six) Branch hours as needed for Nausea and Vomiting (N/V). acetaminoph 2020-0 Yes [id number] 650mg Take 1 [facility] en 650 mg 5-07 tablet by ity o f CR tablet 00:00: mouth [place] 00 every 8 Medical (eight) Branch hours as needed for Pain or Fever. bromphenira 2020-0 Yes [id number] 10mL Take 10 mL [facility] mine-pseudo 5-07 by mouth 4 it y of ephedrine-D 00:00: (four) [place] M (BROMFED 00 times Medical DM) 2-30-10 daily as Bran ch mg/5 mL needed for syrup Cough. Bismuth 2020-0 Yes [id number] 262mg Take 1 [facility] [place] Subsalicyla 5-07 tablet by ity of te 00:00: mouth 4 [place] (PEPTO-BISM 00 (four) Medica l OL) 262 mg times Branch tablet daily as needed (diarrhea) . proMETHazin 2020-0 Yes [id number] 25mg Take 1 [facility] e 25 mg 5-07 tablet by ity of tablet 00:00: mouth [place] 00 every 6 Medical (six) Branch hours as needed for Nausea and Vomiting (N/V). acetaminoph 2020-0 Yes [id number] 650mg Take 1 [facility] en 650 mg 5-07 tablet by ity o f CR tablet 00:00: mouth [place] 00 every 8 Medical (eight) Branch hours as needed for Pain or Fever. bromphenira 2020-0 Yes [id number] 10mL Take 10 mL [facility] mine-pseudo 5-07 by mouth 4 it y of ephedrine-D 00:00: (four) [place] M (BROMFED 00 times Medical DM) 2-30-10 daily as Bran ch mg/5 mL needed for syrup Cough. Bismuth 2020-0 Yes [id number] 262mg Take 1 [facility] Subsalicyla 5-07 tablet by ity of te 00:00: mouth 4 [place] (PEPTO-BISM 00 (four) Medica l OL) 262 mg times Branch tablet daily as needed (diarrhea) . proMETHazin 2020-0 Yes [id number] 25mg Take 1 [facility] e 25 mg 5-07 tablet by ity of tablet 00:00: mouth [place] 00 every 6 Medical (six) Branch hours as needed for Nausea and Vomiting (N/V). acetaminoph 2020-0 Yes [id number] 650mg Take 1 [facility] en 650 mg 5-07 tablet by ity o f CR tablet 00:00: mouth [place] 00 every 8 Medical (eight) Branch hours as needed for Pain or Fever. bromphenira 2020-0 Yes [id number] 10mL Take 10 mL [facility] mine-pseudo 5-07 by mouth 4 it y of ephedrine-D 00:00: (four) [place] M (BROMFED 00 times Medical DM) 2-30-10 daily as Bran ch mg/5 mL needed for syrup Cough. Bismuth 2020-0 Yes [id number] 262mg Take 1 [facility] Subsalicyla 5-07 tablet by ity of te 00:00: mouth 4 [place] (PEPTO-BISM 00 (four) Medica l OL) 262 mg times Branch tablet daily as needed (diarrhea) . proMETHazin 2020-0 Yes [id number] 25mg Take 1 [facility] e 25 mg 5-07 tablet by ity of tablet 00:00: mouth [place] 00 every 6 Medical (six) Branch hours as needed for Nausea and Vomiting (N/V). acetaminoph 2020-0 Yes [id number] 650mg Take 1 [facility] en 650 mg 5-07 tablet by ity o f CR tablet 00:00: mouth [place] 00 every 8 Medical (eight) Branch hours as needed for Pain or Fever. bromphenira 2020-0 Yes [id number] 10mL Take 10 mL Univers mine-pseudo 5-07 by mouth 4 it y of ephedrine-D 00:00[place] ([place] (BROMF[place] 00 times Medical DM) 2-30-10 daily as Bran ch mg/5 mL needed for syrup Cough. Bismuth 2020-0 Yes [id number] 262mg Take 1 Un chauncey Subsalicyla 5-07 tablet by ity of te 00:00: mouth 4 [place] (PEPTO-BISM 00 (four) Medica l OL) 262 mg times Branch tablet daily as needed (diarrhea) . proMETHazin 2020-0 Yes [id number] 25mg Take 1 Univers e 25 mg 5-07 tablet by ity of tablet 00:00: mouth [place] 00 every 6 Medical (six) Branch hours as needed for Nausea and Vomiting (N/V). acetaminoph 2020-0 Yes [id number] 650mg Take 1 Univers en 650 mg 5-07 tablet by ity o f CR tablet 00:00: mouth [place] 00 every 8 Medical (eight) Branch hours as needed for Pain or Fever. bromphenira 2020-0 Yes [id number] 10mL Take 10 mL Univers mine-pseudo 5-07 by mouth 4 it y of ephedrine-D 00:00: ([place] (BROMFED 00 times Medical DM) 2-30-10 daily as Bran ch mg/5 mL needed for syrup Cough. Bismuth 2020-0 Yes [id number] 262mg Take 1 Un chauncey Subsalicyla 5-07 tablet by ity of te 00:00: mouth 4 [place] (PEPTO-BISM 00 (four) Medica l OL) 262 mg times Branch tablet daily as needed (diarrhea) . proMETHazin 2020-0 Yes [id number] 25mg Take 1 Univers e 25 mg 5-07 tablet by ity of tablet 00:00: mouth [place] 00 every 6 Medical (six) Branch hours as needed for Nausea and Vomiting (N/V). acetaminoph 2020-0 Yes [id number] 650mg Take 1 Univers en 650 mg 5-07 tablet by ity o f CR tablet 00:00: mouth [place] 00 every 8 Medical (eight) Branch hours as needed for Pain or Fever. bromphenira 2020-0 Yes [id number] 10mL Take 10 mL Univers mine-pseudo 5-07 by mouth 4 it y of ephedrine-D 00:00: (four[place] (BROMFED 00 times Medical DM) 2-30-10 daily as Bran ch mg/5 mL needed for syrup Cough. Bismuth 2020-0 Yes [id number] 262mg Take 1 Un chauncey Subsalicyla 5-07 tablet by ity of te 00:00: mouth 4 [place] (PEPTO-BISM 00 (four) Medica l OL) 262 mg times Branch tablet daily as needed (diarrhea) . acetaminoph 2020-0 Yes [id number] 650mg Take 1 Univers en 650 mg 5-07 tablet by ity o f CR tablet 00:00: mouth [place] 00 every 8 Medical (eight) Branch hours as needed for Pain or Fever. bromphenira 2020-0 Yes [id number] 10mL Take 10 mL Univers mine-pseudo 5-07 by mouth 4 it y of ephedrine-D 00:00: (four[place] (BROMFED 00 times Medical DM) 2-30-10 daily as Bran ch mg/5 mL needed for syrup Cough. Bismuth 2020-0 Yes [id number] 262mg Take 1 Un chauncey Subsalicyla 5-07 tablet by ity of te 00:00: mouth 4 [place] (PEPTO-BISM 00 (four) Medica l OL) 262 mg times Branch tablet daily as needed (diarrhea) . acetaminoph 2020-0 Yes [id number] 650mg Take 1 Univers en 650 mg 5-07 tablet by ity o f CR tablet 00:00: mouth [place] 00 every 8 Medical (eight) Branch hours as needed for Pain or Fever. bromphenira 2020-0 Yes [id number] 10mL Take 10 mL Univers mine-pseudo 5-07 by mouth 4 it y of ephedrine-D 00:00: (four[place] (BROMFED 00 times Medical DM) 2-30-10 daily as Bran ch mg/5 mL needed for syrup Cough. Bismuth 2020-0 Yes [id number] 262mg Take 1 Un chauncey Subsalicyla 5-07 tablet by ity of te 00:00: mouth 4 [place] (PEPTO-BISM 00 (four) Medica l OL) 262 mg times Branch tablet daily as needed (diarrhea) . acetaminoph 2020-0 Yes [id number] 650mg Take 1 Univers en 650 mg 5-07 tablet by ity o f CR tablet 00:00: mouth [place] 00 every 8 Medical (eight) Branch hours as needed for Pain or Fever. bromphenira 2020-0 Yes [id number] 10mL Take 10 mL Univers mine-pseudo 5-07 by mouth 4 it y of ephedrine-D 00:00: (four[place] (BROMFED 00 times Medical DM) 2-30-10 daily as Bran ch mg/5 mL needed for syrup Cough. Bismuth 2020-0 Yes [id number] 262mg Take 1 Un chauncey Subsalicyla 5-07 tablet by ity of te 00:00: mouth 4 [place] (PEPTO-BISM 00 (four) Medica l OL) 262 mg times Branch tablet daily as needed (diarrhea) . acetaminoph 2020-0 Yes [id number] 650mg Take 1 Univers en 650 mg 5-07 tablet by ity o f CR tablet 00:00: mouth [place] 00 every 8 Medical (eight) Branch hours as needed for Pain or Fever. bromphenira 2020-0 Yes [id number] 10mL Take 10 mL Univers mine-pseudo 5-07 by mouth 4 it y of ephedrine-D 00:00: (four[place] (BROMFED 00 times Medical DM) 2-30-10 daily as Bran ch mg/5 mL needed for syrup Cough. Bismuth 2020-0 Yes [id number] 262mg Take 1 Un chauncey Subsalicyla 5-07 tablet by ity of te 00:00: mouth 4 [place] (PEPTO-BISM 00 (four) Medica l OL) 262 mg times Branch tablet daily as needed (diarrhea) . acetaminoph 2020-0 Yes [id number] 650mg Take 1 Univers en 650 mg 5-07 tablet by ity o f CR tablet 00:00: mouth [place] 00 every 8 Medical (eight) Branch hours as needed for Pain or Fever. bromphenira 2020-0 Yes [id number] 10mL Take 10 mL Univers mine-pseudo 5-07 by mouth 4 it y of ephedrine-D 00:00: (four[place] (BROMFED 00 times Medical DM) 2-30-10 daily as Bran ch mg/5 mL needed for syrup Cough. Bismuth 2020-0 Yes [id number] 262mg Take 1 Un chauncey Subsalicyla 5-07 tablet by ity of te 00:00: mouth 4 [place] (PEPTO-BISM 00 (four) Medica l OL) 262 mg times Branch tablet daily as needed (diarrhea) . acetaminoph 2020-0 Yes [id number] 650mg Take 1 Univers en 650 mg 5-07 tablet by ity o f CR tablet 00:00: mouth [place] 00 every 8 Medical (eight) Branch hours as needed for Pain or Fever. bromphenira 2020-0 Yes [id number] 10mL Take 10 mL Univers mine-pseudo 5-07 by mouth 4 it y of ephedrine-D 00:00: (four[place] (BROMFED 00 times Medical DM) 2-30-10 daily as Bran ch mg/5 mL needed for syrup Cough. Bismuth 2020-0 Yes [id number] 262mg Take 1 Un chauncey Subsalicyla 5-07 tablet by ity of te 00:00: mouth 4 [place] (PEPTO-BISM 00 (four) Medica l OL) 262 mg times Branch tablet daily as needed (diarrhea) . proMETHazin 2020-0 2020- No [id number] 25mg Take 1 Univers e 25 mg [...] 18:22: nightly. Medical tablet 22 Center tiZANidine 2017-0 Yes 4mg Take 4 mg [facility] I [...] 4-6) or Pain (scale 7-10). traMADOL 50 0 Yes 100mg Take 2 Uni vers mg [...] 24 Medical (twenty-fo Branch ur) hours. proMETHazin 2015- 2020- No 25mg Take 1 Uni vers [...] Immunizations Ordered Filled Immunization Date Status Comments [facility] e Immunization Name Name Influenza Virus 2016-06-01 Completed Universit y of Vaccine Quad IM 3+ 00:00:00 [facility] Influenza Virus 2016-06-01 Completed Universit y of Vaccine Quad IM 3+ 00:00:00 [facility] Influenza Virus 2016-06-01 Completed Universit y of Vaccine Quad IM 3+ 00:00:00 [facility] Influenza Virus 2016-06-01 Completed Universit y of Vaccine Quad IM 3+ 00:00:00 [facility] Influenza Virus 2016-06-01 Completed Universit y of Vaccine Quad IM 3+ 00:00:00 [facility] Influenza Virus 2016-06-01 Completed Universit y of Vaccine Quad IM 3+ 00:00:00 [facility] Influenza Virus 2016-06-01 Completed Universit y of Vaccine Quad IM 3+ 00:00:00 [facility] Influenza Virus 2016-06-01 Completed Universit y of Vaccine Quad IM 3+ 00:00:00 [facility] Influenza Virus 2016-06-01 Completed Universit y of Vaccine Quad IM 3+ 00:00:00 [facility] Influenza Virus 2016-06-01 Completed Universit y of Vaccine Quad IM 3+ 00:00:00 [facility] Influenza Virus 2016-06-01 Completed Universit y of Vaccine Quad IM 3+ 00:00:00 [facility] Influenza Virus 2016-06-01 Completed Universit y of Vaccine Quad IM 3+ 00:00:00 [facility] Influenza Virus 2016-06-01 Completed Universit y of Vaccine Quad IM 3+ 00:00:00 [place] [facility] Influenza Virus 2016-06-01 Completed Universit y of Vaccine Quad IM 3+ 00:00:00 [facility] Branch Influenza Virus 2016-06-01 Completed Universit y of Vaccine Quad IM 3+ 00:00:00 [facility] Branch Vital Signs Vital Name Observation Time Observation Value Comments Source Systolic blood 2021-03-30 03:00:00 125 mm[Hg] Univer sity of pressure [facility] Branch Diastolic blood 2021-03-30 03:00:00 74 mm[Hg] Unive rsity of pressure [facility] Branch Heart rate 2021-03-30 03:00:00 100 /min Universi ty of [facility] Branch Respiratory rate 2021-03-30 03:00:00 20 /min Univ ersity of [place] [facility] Oxygen saturation in 2021-03-30 03:00:00 100 /min University of Arterial blood by [place] [facility] P[facility] oximetry Branch Body temperature 2021-03-29 23:35:00 36.61 Stella [facility] ersity of [place] [facility] Body height 2021-03-29 23:35:00 160 cm Universi ty of [place] [facility] Body weight 2021-03-29 23:35:00 98.884 kg Universi ty of [place] [facility] BMI 2021-03-29 23:35:00 38.62 kg/m2 Universi ty of [place] [facility] Systolic blood 2020-11-03 00:30:00 141 mm[Hg] Univer sity of pressure [facility] Branch Diastolic blood 2020-11-03 00:30:00 85 mm[Hg] Unive rsity of pressure [place] [facility] Heart rate 2020-11-03 00:30:00 83 /min Universi ty of [place] [facility] Respiratory rate 2020-11-03 00:30:00 13 /min Univ ersity of [place] [facility] Oxygen saturation in 2020-11-03 00:30:00 97 /min University of Arterial blood by [place] [employer] [facility] Pulse oximetry Branch Body temperature 2020-11-02 18:48:00 37 Stella [facility] ersity of [place] [facility] Body weight 2020-11-02 18:48:00 93.441 kg Universi ty of [place] [facility] BMI 2020-11-02 18:48:00 32.26 kg/m2 Universi ty of [place] [facility] Systolic blood 2020-11-03 00:30:00 141 mm[Hg] Univer sity of pressure [place] [facility] Diastolic blood 2020-11-03 00:30:00 85 mm[Hg] Unive rsity of pressure [place] [facility] Heart rate 2020-11-03 00:30:00 83 /min Universi ty of [place] [facility] Respiratory rate 2020-11-03 00:30:00 13 /min Univ ersity of [place] [facility] Oxygen saturation in 2020-11-03 00:30:00 97 /min University of Arterial blood by [place] [employer] [facility] Pulse oximetry Branch Body temperature 2020-11-02 18:48:00 37 Stella Univ ersity of [place] [facility] Body weight 2020-11-02 18:48:00 93.441 kg Universi ty of [place] [facility] BMI 2020-11-02 18:48:00 32.26 kg/m2 Universi ty of [place] [facility] Systolic blood 2020-08-06 04:05:00 155 mm[Hg] Univer sity of pressure [place] [facility] Diastolic blood 2020-08-06 04:05:00 101 mm[Hg] Unive rsity of pressure [place] [facility] Heart rate 2020-08-06 04:05:00 92 /min Universi ty of [place] [facility] Respiratory rate 2020-08-06 04:05:00 19 /min Univ ersity of [place] [facility] Oxygen saturation in 2020-08-06 04:05:00 99 /min University of Arterial blood by [place] [employer] [facility] Pulse oximetry Branch Body temperature 2020-08-06 01:37:00 36.89 Stella Univ ersity of [place] [facility] Body height 2020-08-06 01:37:00 170.2 cm Universi ty of [place] [facility] Body weight 2020-08-06 01:37:00 93.895 kg Universi ty of [place] [facility] BMI 2020-08-06 01:37:00 32.42 kg/m2 Universi ty of [place] [facility] Systolic blood 2020-08-06 04:05:00 155 mm[Hg] Univer sity of pressure [place] [facility] Diastolic blood 2020-08-06 04:05:00 101 mm[Hg] Unive rsity of pressure [place] [facility] Heart rate 2020-08-06 04:05:00 92 /min Universi ty of [place] [facility] Respiratory rate 2020-08-06 04:05:00 19 /min Univ ersity of [place] [facility] Oxygen saturation in 2020-08-06 04:05:00 99 /min University of Arterial blood by [facility] Pulse oximetry Branch Body temperature 2020-08-06 01:37:00 36.89 Stella Univ ersity of [place] [facility] Body height 2020-08-06 01:37:00 170.2 cm Universi ty of [place] [facility] Body weight 2020-08-06 01:37:00 93.895 kg Universi ty of [place] [facility] BMI 2020-08-06 01:37:00 32.42 kg/m2 Universi ty of [place] [facility] Systolic blood 2020-07-23 01:00:00 140 mm[Hg] Univer sity of pressure [place] [facility] Diastolic blood 2020-07-23 01:00:00 80 mm[Hg] Unive rsity of pressure [place] [facility] Heart rate 2020-07-23 01:00:00 63 /min Universi ty of [place] [facility] Respiratory rate 2020-07-23 01:00:00 18 /min Univ ersity of [place] [facility] Oxygen saturation in 2020-07-23 01:00:00 97 /min University of Arterial blood by [facility] Pulse oximetry Branch Body temperature 2020-07-22 22:18:00 37.11 Stella Univ ersity of [place] [facility] Body weight 2020-07-22 22:18:00 97.07 kg Universi ty of [place] [facility] BMI 2020-07-22 22:18:00 33.52 kg/m2 Universi ty [facility] [place] [facility] Systolic blood 2020-07-23 01:00:00 140 mm[Hg] Univer sity of pressure [place] [facility] Diastolic blood 2020-07-23 01:00:00 80 mm[Hg] Unive rsity of pressure [place] [facility] Heart rate 2020-07-23 01:00:00 63 /min Universi ty of [place] [facility] Respiratory rate 2020-07-23 01:00:00 18 /min Univ ersity of [place] [facility] Oxygen saturation in 2020-07-23 01:00:00 97 /min University of Arterial blood by [facility] nicole Pulse oximetry Branch Body temperature 2020-07-22 22:18:00 37.11 Stella Univ ersity of [place] [facility] Body weight 2020-07-22 22:18:00 97.07 kg Universi ty of [place] [facility] BMI 2020-07-22 22:18:00 33.52 kg/m2 Universi ty of [place] [facility] Systolic blood 2020-05-20 00:00:00 156 mm[Hg] Univer sity of pressure [place] [facility] Diastolic blood 2020-05-20 00:00:00 94 mm[Hg] Unive rsity of pressure [place] [facility] Heart rate 2020-05-20 00:00:00 90 /min Universi ty of [place] [facility] Respiratory rate 2020-05-20 00:00:00 18 /min Univ ersity of [place] [facility] Oxygen saturation in 2020-05-20 00:00:00 96 /min University of Arterial blood by [place] [employer] [facility]ole Pulse oximetry Branch Body temperature 2020-05-19 21:37:00 37.11 Stella Univ ersity of [place] [facility] Body height 2020-05-19 21:37:00 170.2 cm Universi ty of [place] [facility] Body weight 2020-05-19 21:37:00 93.441 kg Universi ty of [place] [facility] BMI 2020-05-19 21:37:00 32.26 kg/m2 Universi ty of [place] [facility] Systolic blood 2020-05-20 00:00:00 156 mm[Hg] Univer sity of pressure [place] [facility] Diastolic blood 2020-05-20 00:00:00 94 mm[Hg] Unive rsity of pressure [place] [facility] Heart rate 2020-05-20 00:00:00 90 /min Universi ty of [place] [facility] Respiratory rate 2020-05-20 00:00:00 18 /min Univ ersity of [place] [facility] Oxygen saturation in 2020-05-20 00:00:00 96 /min University of Arterial blood by [employer] nicole Pulse oximetry Branch Body temperature 2020-05-19 21:37:00 37.11 Stella Univ ersity of [place] [facility] Body height 2020-05-19 21:37:00 170.2 cm Universi ty of [place] [facility] Body weight 2020-05-19 21:37:00 93.441 kg [facility]i ty [facility] [place] [facility] BMI 2020-05-19 21:37:00 32.26 kg/m2 Universi ty of [place] [facility] Systolic blood 2019-08-22 07:00:00 165 mm[Hg] Univer sity of pressure [place] [facility] Diastolic blood 2019-08-22 07:00:00 127 mm[Hg] Unive rsity of pressure [place] [facility] Heart rate 2019-08-22 07:00:00 99 /min Universi ty of [place] [facility] Respiratory rate 2019-08-22 07:00:00 14 /min Univ ersity of [place] [facility] Oxygen saturation in 2019-08-22 07:00:00 97 /min [facility] of Arterial blood by [place] [facility] Pulse oximetry Branch Body temperature 2019-08-22 04:58:00 37.5 Stella Univ ersity of [place] [facility] Body weight 2019-08-22 04:58:00 92.987 kg Universi ty of [place] [facility] BMI 2019-08-22 04:58:00 32.11 kg/m2 Universi ty of [place] [facility] Systolic blood 2019-08-22 07:00:00 165 mm[Hg] Univer sity of pressure [place] [facility] Diastolic blood 2019-08-22 07:00:00 127 mm[Hg] Unive rsity of pressure [place] [facility] Heart rate 2019-08-22 07:00:00 99 /min Universi ty of [place] [facility] Respiratory rate 2019-08-22 07:00:00 14 /min Univ ersity of [place] [facility] Oxygen saturation in 2019-08-22 07:00:00 97 /min University of Arterial blood by [facility] nicole Pulse oximetry Branch Body temperature 2019-08-22 04:58:00 37.5 Stella Univ ersity of [place] [facility] Body weight 2019-08-22 04:58:00 92.987 kg Universi ty of [place] [facility] BMI 2019-08-22 04:58:00 32.11 kg/m2 Universi ty [facility] [place] [facility] Systolic blood 2019-08-04 19:56:00 133 mm[Hg] Univer sity of pressure [place] [facility] Diastolic blood 2019-08-04 19:56:00 91 mm[Hg] Unive rsity of pressure [place] [facility] Heart rate 2019-08-04 19:47:00 107 /min Universi ty of [place] [facility] Body temperature 2019-08-04 19:47:00 37.06 Stella [facility] Respiratory rate 2019-08-04 19:47:00 20 /min [facility] Body height 2019-08-04 19:47:00 170.2 cm [facility] Body weight 2019-08-04 19:47:00 97.977 kg [facility] BMI 2019-08-04 19:47:00 33.83 kg/m2 [facility] Oxygen saturation in 2019-08-04 19:47:00 100 /min [facility] Arterial blood by [facility] Pulse oximetry Branch Procedures Procedure Date / Time Performing Clinician Source Performed AUTHORIZATION FOR RELEASE 2021-07-09 05:01:00 Doctor Unafiliberto, [facility] Name [facility] [place] XR CHEST 2 VW 2021-03-30 00:42:57 Krys Jewell [facility] CONSENT/REFUSAL FOR 2021-03-29 23:21:19 Doctor Shy, [facility] DIAGNOSIS AND TREATMENT [facility] [place] [facility] ABDOMEN PELVIS W 2020-11-02 22:44:07 Amari Maza [facility] CONTRAST [facility] Branch MAGNESIUM 2020-11-02 22:10:00 Amari Maza [facility] TROPONIN I 2020-11-02 22:10:00 Amari Maza [facility] COMP. METABOLIC PANEL 2020-11-02 22:10:00 Amari Maza [facility] ([id number]) Medical [place] CBC WITH DIFF 2020-11-02 22:10:00 Amari Maza [facility] URINALYSIS 2020-11-02 22:10:00 Amari Maza [facility] NOTICE OF PRIVACY 2020-11-02 18:42:52 Doctor Shy, [facility] PRACTICES [facility] [place] CONSENT/REFUSAL FOR 2020-11-02 18:39:42 Doctor Shy, [facility] DIAGNOSIS AND TREATMENT [facility] [place] [facility] ABDOMEN PELVIS W 2020-08-06 03:33:07 Mayte Lamb [facility] Branch COVID-19 (ID NOW RAPID 2020-08-06 02:57:00 Mayte Lamb [facility] TESTING) Medical Branch LIPASE 2020-08-06 02:22:00 Mayte Lamb [facility] COMP. METABOLIC PANEL 2020-08-06 02:22:00 Mayte Lamb [facility] ([id number]) Medical Branch CBC WITH DIFF 2020-08-06 02:22:00 Mayte Lamb [facility] LACTIC ACID WHOLE BLOOD 2020-08-06 02:22:00 Mayte aLmb [facility] URINALYSIS 2020-08-06 01:42:00 Jose Cruz Prakash [facility] CONSENT/REFUSAL FOR 2020-08-06 01:26:13 Doctor Unassigned, [facility] DIAGNOSIS AND TREATMENT [facility] COVID-19 (ID NOW RAPID 2020-07-23 00:39:00 Mayte Lamb [facility] TESTING) Medical Branch CT CERVICAL SPINE WO 2020-07-22 23:06:25 Mayte Lamb [facility] CONTRAST [facility] CT HEAD WO CONTRAST 2020-07-22 23:06:25 Mayte Lamb [facility] XR CHEST 1 VW 2020-07-22 22:53:06 Mayte Lamb [facility] LIPASE 2020-07-22 22:51:00 Mayte Lamb [facility] TROPONIN I 2020-07-22 22:51:00 Mayte Lamb [facility] FREE T4 2020-07-22 22:51:00 Mayte Lamb [facility] THYROID STIMULATING 2020-07-22 22:51:00 Mayte Lamb [facility] HORMONE [facility] HEPATIC FUNCTION PANEL 2020-07-22 22:51:00 Mayte Lamb [facility] ([id number]) (ALB,T.PRO,BILI Medical Branch T,BU/BC,ALT,AST,ALK PHOS) BASIC METABOLIC PANEL 2020-07-22 22:51:00 Mayte Lamb [facility] (NA, K, CL, CO2, GLUCOSE, Medica l Branch BUN, CREATININE, CA) CBC WITH DIFF 2020-07-22 22:51:00 Mayte Lamb [facility] URINALYSIS 2020-07-22 22:51:00 [facility]-B[facility] 2020-07-22 22:51:00 Eugenia [facility] POCT GLUCOSE (AUTOMATED) 2020-07-22 22:17:00 Doctor Shy, [facility] CONSENT/REFUSAL FOR 2020-07-22 22:08:56 Doctor Shy [facility] DIAGNOSIS AND TREATMENT [facility] MEDICATION CORRESPONDENCE 2020-06-17 05:01:00 Doctor Shy [facility] LIPASE 2020-05-19 22:05:00 Pastora Esparza [facility] COMP. METABOLIC PANEL 2020-05-19 22:05:00 Pastora Esparza [facility] ([id number]) [facility] CBC WITH DIFF 2020-05-19 22:05:00 Pastora Esparza [facility] URINALYSIS 2020-05-19 22:05:00 Pastora Esparza [facility] NOTICE OF PRIVACY 2020-05-19 21:27:02 Doctor Shy, [facility] PRACTICES [facility] CONSENT/REFUSAL FOR 2020-05-19 21:26:36 Doctor Begum [facility] DIAGNOSIS AND TREATMENT [facility] POCT GLUCOSE (AUTOMATED) 2019-08-22 07:05:00 Jose Cruz Prakash [facility] LIPASE 2019-08-22 05:18:00 Jose Cruz Prakash [facility] COMP. METABOLIC PANEL 2019-08-22 05:18:00 Jose Cruz Prakash [facility] ([id number]) Medical Branch CBC WITH DIFFERENTIAL 2019-08-22 05:18:00 Jose Cruz Prakash [facility] URINALYSIS 2019-08-22 05:05:00 Jose Cruz Prakash [facility] COVID-19 (ID NOW RAPID 2019-08-22 05:04:00 Jose Cruz Prakash [facility] TESTING) Medical Branch ASSIGNMENT OF BENEFITS 2019-08-22 04:32:23 [facility]flor[facility] [place] NOTICE OF PRIVACY 2019-08-22 04:32:08 Doctor Shy, [facility] PRACTICES [facility] CONSENT/REFUSAL FOR 2019-08-22 04:31:55 Doctor Shy [facility] DIAGNOSIS AND TREATMENT [facility] Encounters Start End Encounter Admission Attending Care Care Encounter Source Date/Time Date/Time Type Type Clinicians Facility Department ID 2021-01-28 Emergency [facility] [id number] Univers 13:42:31 ity of [facility] 2021-01-27 Emergency [facility] [id number] Univers 17:59:52 ity of [facility] 2021-01-27 Emergency [facility] [id number] Univers 15:07:41 ity of [facility] 2021-01-27 Emergency [facility] [id number] Univers 00:15:52 ity of [facility] 2021-01-26 Emergency [facility] [id number] Univers 10:55:23 ity of [facility] 2021-01-24 Emergency [facility] [id number] Univers 22:08:18 ity of [facility] 2021-07-09 2021-07-09 Orders Doctor ESCALONA [id number] Univers 00:00:00 00:00:00 Only Unassigned, GREGORY [id number] ity of [place] [facility] [id number] Roberto as [id number] [address] 2021-03-29 2021-03-29 Emergency X JEWELL, [facility] ERT [id number] Univers 17:36:00 21:51:00 [facility] 2021-03-29 2021-03-29 Emergency Jewell, [facility] [id number] [facility] 17:36:00 21:51:00 Krys FITZPATRICK [id number] i ty [facility] [id number] [facility] [id number] [place] [address] Branch 2020-11-02 2020-11-02 Emergency Amari Maza [facility] 1.2.840.114 [id number] Univers 13:53:00 20:06:00 Cristina Fitzpatrick 350.1.13.10 i ty of [place] 4.2.7.2.686 [facility] [id number] [place] [address] Branch 2020-11-02 2020-11-02 Emergency Amari Maza [facility] 1.2.840.114 [id number] 13:53:00 20:06:00 Cristina Fitzpatrick 350.1.13.10 [place] [address] [place] [address] [phone] [facility] 2020-10-20 2020-10-22 [facility] U [facility] 1205 [facility] 11:58:00 18:52:00 [facility] 2020-08-05 2020-08-05 [facility] 1.2.840.114 [id number] [facility] 20:44:00 23:55:00 Annabrunildao Isaac CurielMoyers 350.1.13.10 ity of [place] 4.2.7.2.686 [facility] [id number] [address] 2020-08-05 2020-08-05 Emergency [facility] 1.2.840.114 [id number] 20:44:00 23:55:00 Haileeo Isaac [place] 350.1.13.10 [place] 4.2.7.2.686 [place] [id number] 084 2020-07-22 2020-07-22 Emergency [facility] 1.2.840.114 [id number] [facility] 17:17:00 20:14:00 Haileeo Isaac [place] 350.1.13.10 ity of [place] 4.2.7.2.686 [facility] [phone] [place] [address] Branch 2020-07-22 2020-07-22 Emergency Eugenia, [facility] 1.2.840.114 [id number] 17:17:00 20:14:00 Mayte Gray Erick 350.1.13.10 [place] 4.2.7.2.686 [place] [id number] 08 2020-06-17 2020-06-17 Orders Doctor ESCALONA 1.2.840.114 [id number] [facility] 00:00:00 00:00:00 Only Unassigned, GREGORY 350.1.13.10 ity of [place] [facility] 4.2.7.2.686 [facility] [id number] [place] [address] Branch 2020-06-17 2020-06-17 Orders Doctor ESCALONA 1.2.840.114 [id number] 00:00:00 00:00:00 Only Unassigned, GREGORY 350.1.13.10 [place] [facility] 4.2.7.2.68 [id number] [facility] 2020-05-19 2020-05-19 Emergency Esparza, [facility] 1.2.047.108 [id number] [facility] 15:45:00 18:07:00 Pastora Yousif Erick 350.1.13.10 i ty of [place] 4.2.7.2.686 [facility] [id number] [address] 2020-05-19 2020-05-19 Emergency Esparza, [facility] 1.2.610.692 [id number] 15:45:00 18:07:00 Pastora Curielton 350.1.13.10 [place] 4.2.7.2.686 [place] [id number] [facility] 2019-08-21 2019-08-22 Emergency Martanh, [facility] 1.2.213.080 [id number] [facility] 23:48:04 02:26:00 Jose Cruz Nica Erick 350.1.13.10 ity of [place] 4.2.7.2.686 [facility] [id number] [place] [address] Branch 2019-08-21 2019-08-22 [facility] 1.2.277.361 [id number] 23:48:04 02:26:00 Jose Cruz Fitzpatrick 350.1.13.10 [place] 4.2.7.2.686 [place] [id number] 084 2019-08-06 2019-08-06 Telephone IQRA Barragan 1.2.840.114 [id number] Univers 00:00:00 00:00:00 Apoorva GREGORY 350.1.13.10 it y of HOSPITAL 4.2.7.2.686 Roberto as [phone] [address] 2019-08-06 2019-08-06 Telephone IQRA Box 1.2.998.502 [id number] Univers 00:00:00 00:00:00 Jinny GREGORY 350.1.13.10 it y of [facility] 4.2.7.2.686 Roberto as [id number] [address] 2019-08-06 2019-08-06 Telephone IQRA Barragan 1.2.840.114 [id number] 00:00:00 00:00:00 Apoorva GREGORY 350.1.13.10 [facility] 4.2.7.2.686 [id number] 019 2019-08-06 2019-08-06 Telephone IQRA Box 1.2.769.710 [id number] 00:00:00 00:00:00 Jinny GREGORY 350.1.13.10 [facility] 4.2.7.2.686 [id number] 019 2019-08-05 2019-08-05 Telephone [facility] 1.2.840.114 [id number] Univers 00:00:00 00:00:00 [facility] 350.1.13.10 it y of [place] 4.2.7.2.686 Roberto as Professio [id number] [address] One 2019-08-05 2019-08-05 Telephone IQRA Box 1.2.005.299 [id number] Univers 00:00:00 00:00:00 Jinny GREGORY 350.1.13.10 it y of HOSPITAL 4.2.7.2.686 Roberto as [phone] [address] 2019-08-05 2019-08-05 Telephone IQRA Box 1.2.086.416 [id number] 00:00:00 00:00:00 Jinny JENKINS 350.1.13.10 [facility] 4.2.7.2.686 [id number] 019 2019-08-04 2019-08-04 Urgent Pob1, Acute Care Clinic [facility] 1. 2.840.114 [id number] Univers 14:42:35 15:59:50 [facility] Shankar [facility] 350.1.13.10 ity [facility] 4.2.7.2.686 Roberto as Professio [phone] La dical [facility] [address] 2019-08-04 2019-08-04 Outpatient R [facility] [id number] Univers 15:00:00 15:00:00 [facility] Results Test Test Test Results Result Source Description Time Comments Comments CT ABDOMEN 2020-10-28. ?No bowel University of PELVIS W 06 [...] 0.000 ng/mL See_Comment [Au tomated message] The 7252298273) system which nerated this result tra nsmitted [...] biotin. Lab Interpretation Normal (test code = 07401-9) [facility] 22[facility]39:02 Test Item Value Reference Range Interpretation Comments APPEARANCE (test code = Clear Clear 8702084118) COLOR (test code = Yellow Yellow 3294053729) PH (test code = 4.8-8.0 2865725921) SP GRAVITY (test code = 1.003-1.030 6283025988) GLU U QUAL (test code = 50 mg/dL Normal A 2952508613) BLOOD (test code = 3+ Negative A 1545839503) KETONES (test code = Negative Negative 7479138219) PROTEIN (test code = Negative Negative 2887-8) UROBILIN (test code = Normal Normal 9739234712) BILIRUBIN (test code = Negative Negative 5601052002) NITRITE (test code = Negative Negative 5341733304) LEUK PARTH (test code = 25/uL Negative A 1445960535) RBC/HPF (test code = See_Comment [Autom ated message] 6984132088) The system admetricks generated this result transmitted ref erence range: 0 - 3 HP F. The reference range was not used to int erpret this result as normal/abnormal . WBC/HPF (test code = See_Comment [Autom ated message] 7930986262) The system admetricks generated this result transmitted ref erence range: 0 - 5 HP F. The reference range was not used to int erpret this result as normal/abnormal . BACTERIA (test code = Negative Negative 1279432593) MUCOUS (test code = Slight Negative LPF A 1000481553) SQ EPITH (test code = HPF 0142749126) Lab Interpretation (test Abnormal code = 67889-3) [facility] 22:38:26 Test Item Value Reference Range Interpretation Comments MAGNESIUM (test code = 7206034106) 1.4 mg/dL 1.7-2.4 L Lab Interpretation (test code = Abnormal 25819-6) [facility]. METABOLIC PANEL (58852)2020-11-02 22:38:11 Test Item Value Reference Range Interpretation Comments NA (test code = 139 mmol/L 135-145 4200327591) K (test code = 3.7 mmol/L 3.5-5.0 8820264836) CL (test code = 102 mmol/L 98-108 6103955911) CO2 TOTAL (test code = 24 mmol/L 23-31 9358483273) AGAP (test code = 2-16 9550312726) BUN (test code = 16 mg/dL 7-23 5180619493) GLUCOSE (test code = 183 mg/dL 70-110 H 7738957445) CREATININE (test code = 0.64 mg/dL 0.50-1.04 0496381363) TOTAL BILI (test code = 0.2 mg/dL 0.1-1.4 0535970601) CALCIUM (test code = 10.4 mg/dL 8.6-10.6 5483113838) T PROTEIN (test code = 8.5 g/dL 6.3-8.2 H 9433174667) ALBUMIN (test code = 4.8 g/dL 3.5-5.0 7809194737) ALK PHOS (test code = 103 U/L 34-122 7783195320) ALTv (test code = 20 U/L 5-35 1742-6) AST(SGOT) (test code = 21 U/L 13-40 7540851039) eGFR (test code = mL/min/1.73m2 4311693057) FALLON (test code = FALLON) Association of [...] tests). Lab Interpretation Abnormal (test code = 04112-0) [facility] WITH [id number] 22:33:08 Test Item Value Reference Range Interpretation Comments WBC (test code = See_Comment [Automated 8973-2) message] The sy stem which generated this result transmitted reference range : 4.30 - 11.10 10*3/?L. The reference range was not used to interpret this result as normal/abnormal . RBC (test code = See_Comment [Automated 148-8) message] The sy stem which generated this [...] (test code = 38.5 fL 39.0-49.9 L 84639-1) RDW-CV (test code = 13.3 % 12.0-15.5 788-0) PLT (test code = See_Comment [Automated 769-3) message] The sy stem which generated this result transmitted reference range : 166 - 358 10*3/ ?L. The reference r farrah was not used to interpret this result as normal/abnormal . MPV (test code = 10.5 fL 9.5-12.9 65279-6) NRBC/100 WBC (test See_Comment [Automat ed code = 4716500750) message] The system which generated this result transmitted reference range : 0.0 - 10.0 /100 WBCs. The refer ence range was not u sed to interpret th is result as normal/abnormal . NRBC x10^3 (test code <0.01 See_Comment [Auto mated = 2269523166) message] The s ystem which generated this result transmitted reference range : 10*3/?L. The reference range was not used to interpret this result as normal/abnormal . GRAN MAT (NEUT) % 52.3 % (test code = 770-8) IMM GRAN % (test code 0.40 % = 1671523336) LYMPH % (test code = 37.8 % 736-9) MONO % (test code = 7.3 % 5905-5) EOS % (test code = 1.7 % 713-8) BASO % (test code = 0.5 % 706-2) GRAN MAT x10^3(ANC) 5.25 10*3/uL 1.88-7.09 (test code = 6393119984) IMM GRAN x10^3 (test 0.04 10*3/uL 0.00-0.06 code = 6068935728) LYMPH x10^3 (test code 3.79 10*3/uL 1.32-3.29 H = 731-0) MONO x10^3 (test code 0.73 10*3/uL 0.33-0.92 = 742-7) EOS x10^3 (test code = 0.17 10*3/uL 0.03-0.39 711-2) BASO x10^3 (test code 0.05 10*3/uL 0.01-0.07 = 704-7) Lab Interpretation Abnormal (test code = 59637-6) [facility] RAPID TESTING)2020-08-06 03:39:43 Test Item Value Reference Range Interpretation Comments SARS-CoV-2 Rapid ID NOW Not Detected Not Detected (test code = 50635-5) FALLON (test code = FALLON) ID NOW COVID-19 Assay is an isothermal nucleic acid amplification test intended for the qualitative detection of nucleic acid from SARS-CoV-2 viral RNA in nasopharyngeal (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 It is used under Emergency [...] indicated. Lab Interpretation Normal (test code = 26050-2) [facility]. METABOLIC PANEL (88209)2020-08-06 03:11:02 Test Item Value Reference Range Interpretation Comments NA (test code = 138 mmol/L 135-145 1868199272) K (test code = 4.6 mmol/L 3.5-5.0 0014438418) CL (test code = 102 mmol/L 98-108 8692267178) CO2 TOTAL (test code = 23 mmol/L 23-31 9406987908) AGAP (test code = 2-16 0314971533) BUN (test code = 17 mg/dL 7-23 6297237113) GLUCOSE (test code = 477 mg/dL 70-110 HH 3287269069) CREATININE (test code = 0.70 mg/dL 0.50-1.04 3075979810) TOTAL BILI (test code = 0.6 mg/dL 0.1-1.9 3123319588) CALCIUM (test code = 9.4 mg/dL 8.6-10.6 7420379425) T PROTEIN (test code = 7.4 g/dL 6.3-8.2 8767559427) ALBUMIN (test code = 4.4 g/dL 3.5-5.0 8046944039) ALK PHOS (test code = 113 U/L 34-122 1382992844) ALTv (test code = 22 U/L 5-35 1742-6) AST(SGOT) (test code = 35 U/L 13-40 4922500247) eGFR (test code = mL/min/1.73m2 8026443878) FALLON (test code = FALLON) Association of [...] tests). Lab Interpretation Abnormal (test code = 99363-9) [facility] [id number] 03:07:41 Test Item Value Reference Range Interpretation Comments LIPASE (test code = 2281958327) 169 U/L 0-220 Lab Interpretation (test code = Normal 44498-9) [facility] with Gwjxuxjqtehs5955-10-54 02:40:54 Test Item Value Reference Range Interpretation Comments WBC (test code = See_Comment [Automated 9190-2) message] The sy stem which generated this [...] (test code = 38.2 fL 39.0-49.9 L 14109-1) RDW-CV (test code = 13.5 % 12.0-15.5 788-0) PLT (test code = See_Comment [Automated 777-3) message] The sy stem which generated this result transmitted reference range : 166 - 358 10*3/ ?L. The reference r farrah was not used to interpret this result as normal/abnormal . MPV (test code = 10.7 fL 9.5-12.9 28705-6) NRBC/100 WBC (test See_Comment [Automat ed code = 2155593824) message] The system which generated this result transmitted reference range : 0.0 - 10.0 /100 WBCs. The refer ence range was not u sed to interpret th is result as normal/abnormal . NRBC x10^3 (test code <0.01 See_Comment [Auto mated = 7217680676) message] The s ystem which generated this result transmitted reference range : 10*3/?L. The reference range was not used to interpret this result as normal/abnormal . GRAN MAT (NEUT) % 62.1 % (test code = 770-8) IMM GRAN % (test code 0.70 % = 2890957603) LYMPH % (test code = 29.4 % 736-9) MONO % (test code = 5.2 % 5905-5) EOS % (test code = 1.9 % 713-8) BASO % (test code = 0.7 % 706-2) GRAN MAT x10^3(ANC) 6.64 10*3/uL 1.88-7.09 (test code = 0782699005) IMM GRAN x10^3 (test 0.07 10*3/uL 0.00-0.06 H code = 8727748146) LYMPH x10^3 (test code 3.14 10*3/uL 1.32-3.29 = 731-0) MONO x10^3 (test code 0.56 10*3/uL 0.33-0.92 = 742-7) EOS x10^3 (test code = 0.20 10*3/uL 0.03-0.39 711-2) BASO x10^3 (test code 0.07 10*3/uL 0.01-0.07 = 704-7) Lab Interpretation Abnormal (test code = 69953-7) [facility] Whole [id number] 02:27:55 Test Item Value Reference Range Interpretation Comments LACTIC ACID (test code = 2.34 mmol/L 0.50-2.20 H 2207913517) Lab Interpretation (test code = Abnormal 48562-9) [facility]2021-[facility]-10 02:03:28 Test Item Value Reference Range Interpretation Comments APPEARANCE (test code = Cloudy Clear A 5357837640) COLOR (test code = Yellow Yellow 3581939222) PH (test code = 4.8-8.0 2964561899) SP GRAVITY (test code = 1.003-1.030 H 1189968858) GLU U QUAL (test code = 500 mg/dL Normal A 2831110019) BLOOD (test code = Negative Negative 5579227055) KETONES (test code = Negative Negative 4660771329) PROTEIN (test code = Negative Negative 2887-8) UROBILIN (test code = Normal Normal 6308929770) BILIRUBIN (test code = Negative Negative 0452609418) NITRITE (test code = Negative Negative 7381576751) LEUK PARTH (test code = 250/uL Negative A 4497070162) RBC/HPF (test code = See_Comment [Autom ated message] 8568445891) The system admetricks generated this result transmit jeny reference range : 0 - 3 HPF. The refe rence range was not u sed to interpret th is result as normal/abnormal . WBC/HPF (test code = See_Comment H [Autom ated message] 1640437750) The system admetricks generated this result transmit jeny reference range : 0 - 5 HPF. The refe rence range was not u sed to interpret th is result as normal/abnormal . BACTERIA (test code = Few Negative A 2012896033) MUCOUS (test code = Slight Negative LPF A 4154212854) SQ EPITH (test code = HPF 7449825989) Lab Interpretation (test Abnormal code = 49589-0) [facility] NOW RAPID TESTING)2020-07-23 01:04:25 Test Item Value Reference Range Interpretation Comments SARS-CoV-2 Rapid ID NOW Not Detected Not Detected (test code = 75036-0) FALLON (test code = FALLON) ID NOW COVID-19 Assay is an isothermal nucleic acid amplification test intended for the qualitative detection of nucleic acid from SARS-CoV-2 viral RNA in nasopharyngeal (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 It is used under Emergency [...] indicated. Lab Interpretation Normal (test code = 25604-9) [facility] CenterTHYROID STIMULATING [id number] 23:54:39 Test Item Value Reference Range Interpretation Comments TSH (test code = See_Comment [Automated message] 8960674160) The system admetricks generated this result transmitted ref erence range: 0.45 - 4 .70 mIU/L. The refe rence range was not u sed to interpret this result as normal/abnor mal. Lab Interpretation (test Normal code = 46456-0) [facility] [id number] 23:43:00 Test Item Value Reference Range Interpretation Comments FREE T4 (test code = See_Comment [Autom ated message] 6812836672) The system admetricks generated this result transmitted ref erence range: 0.78 - 2 .20 ng/dL:. The ref erence range was not u sed to interpret this result as normal/abnor mal. Lab Interpretation (test Normal code = 58367-2) [facility] Metabolic Panel (NA, K, CL, CO2, GLUCOSE, BUN, CREATININE, CA)2020-07-22 23:41:03 Test Item Value Reference Range Interpretation Comments NA (test code = 136 mmol/L 135-145 9812896666) K (test code = 4.0 mmol/L 3.5-5.0 1323829505) CL (test code = 97 mmol/L 98-108 L 6398509192) CO2 TOTAL (test code = 30 mmol/L 23-31 4655692459) AGAP (test code = 2-16 1683401805) BUN (test code = 10 mg/dL 7-23 9141158294) GLUCOSE (test code = 483 mg/dL 70-110 HH 1295576641) CREATININE (test code = 0.64 mg/dL 0.50-1.04 0936775508) CALCIUM (test code = 9.5 mg/dL 8.6-10.6 5923141956) eGFR (test code = mL/min/1.73m2 5890232158) FALLON (test code = FALLON) Association of [...] tests). Lab Interpretation Abnormal (test code = 29163-1) [facility] (ALB, T.PRO, BILI T, BU/BC, ALT, AST, ALK PHOS)2020-07-22 23:40:08 Test Item Value Reference Range Interpretation Comments TOTAL BILI (test code = 1008768409) 0.3 mg/dL 0.1-1.1 BILI UNCON (test code = 9270915149) 0.2 mg/dL 0.1-1.1 BILI CONJ (test code = 1304678796) 0.0 mg/dL 0.0-0.3 T PROTEIN (test code = 1712963976) 6.4 g/dL 6.3-8.2 ALBUMIN (test code = 8248009707) 3.9 g/dL 3.5-5.0 ALK PHOS (test code = 6710894967) 125 U/L 34-122 H ALTv (test code = 1742-6) 21 U/L 5-35 AST(SGOT) (test code = 7464587332) 19 U/L 13-40 Lab Interpretation (test code = Abnormal 46349-0) [facility] CenterN-TERMINAL [id number] 23:40:08 Test Item Value Reference Range Interpretation Comments NT-proBNP (test code 73 pg/mL See_Comment [Autom ated = 9740367604) message] The system which generated this result transmitted reference range : <=125. The reference range was not used to interpret this result as normal/abnormal . FALLON (test code = FALLON) Biotin has been reported to cause a negative bias, interpret results relative to patient's use of biotin. Lab Interpretation Normal (test code = 42921-7) [facility] CenterTroponin [id number] 23:40:08 Test Item Value Reference Range Interpretation Comments TROPONIN I (test 0.001 ng/mL See_Comment [Automated code = 4616083331) message] The system which generated this result [...] ? Lab Interpretation Normal (test code = 07473-0) [facility]2021-[facility]-25 23:22:59 Test Item Value Reference Range Interpretation Comments LIPASE (test code = 1586376387) 141 U/L 0-220 Lab Interpretation (test code = Normal 77068-4) [facility] CenterUrinalysis2021-04-25 23:20:48 Test Item Value Reference Range Interpretation Comments APPEARANCE (test code = Clear Clear 9874575012) COLOR (test code = Straw Yellow A 4161946805) PH (test code = 4.8-8.0 6919968071) SP GRAVITY (test code = 1.003-1.030 8311527529) GLU U QUAL (test code = 500 mg/dL Normal A 9085059358) BLOOD (test code = Negative Negative 8759504008) KETONES (test code = Negative Negative 9445795870) PROTEIN (test code = Negative Negative 2887-8) UROBILIN (test code = Normal Normal 5964517066) BILIRUBIN (test code = Negative Negative 4420669559) NITRITE (test code = Negative Negative 1860202948) LEUK PARTH (test code = Negative Negative 5533590540) RBC/HPF (test code = See_Comment [Autom ated message] 7432184045) The system admetricks generated this result transmit jeny reference range : 0 - 3 HPF. The refe rence range was not u sed to interpret th is result as normal/abnormal . WBC/HPF (test code = See_Comment [Autom ated message] 6552387176) The system admetricks generated this result transmit jeny reference range : 0 - 5 HPF. The refe rence range was not u sed to interpret th is result as normal/abnormal . BACTERIA (test code = Negative Negative 2313360089) SQ EPITH (test code = HPF 5620532190) Lab Interpretation (test Abnormal code = 77266-1) [facility] with [id number] 23:01:38 Test Item Value Reference Range Interpretation Comments WBC (test code = See_Comment [Automated 90-2) message] The sy stem which generated this result transmitted reference range : 4.30 - 11.10 10*3/?L. The reference range was not used to interpret this result as normal/abnormal . RBC (test code = See_Comment [Automated 524-8) message] The sy stem which generated this [...] (test code = 37.3 fL 39.0-49.9 L 32899-6) RDW-CV (test code = 12.8 % 12.0-15.5 788-0) PLT (test code = See_Comment [Automated 777-3) message] The sy stem which generated this result transmitted reference range : 166 - 358 10*3/ ?L. The reference r farrah was not used to interpret this result as normal/abnormal . MPV (test code = 10.8 fL 9.5-12.9 23012-0) NRBC/100 WBC (test See_Comment [Automat ed code = 6154687597) message] The system which generated this result transmitted reference range : 0.0 - 10.0 /100 WBCs. The refer ence range was not u sed to interpret th is result as normal/abnormal . NRBC x10^3 (test code <0.01 See_Comment [Auto mated = 9310516696) message] The s ystem which generated this result transmitted reference range : 10*3/?L. The reference range was not used to interpret this result as normal/abnormal . GRAN MAT (NEUT) % 55.0 % (test code = 770-8) IMM GRAN % (test code 0.30 % = 3052318960) LYMPH % (test code = 35.6 % 736-9) MONO % (test code = 7.2 % 5905-5) EOS % (test code = 1.4 % 713-8) BASO % (test code = 0.5 % 706-2) GRAN MAT x10^3(ANC) 3.20 10*3/uL 1.88-7.09 (test code = 8561730581) IMM GRAN x10^3 (test <0.03 0.00-0.06 code = 7415039113) LYMPH x10^3 (test code 2.07 10*3/uL 1.32-3.29 = 731-0) MONO x10^3 (test code 0.42 10*3/uL 0.33-0.92 = 742-7) EOS x10^3 (test code = 0.08 10*3/uL 0.03-0.39 711-2) BASO x10^3 (test code 0.03 10*3/uL 0.01-0.07 = 704-7) Lab Interpretation Abnormal (test code = 43809-7) [facility])2020-07-22 22:21:14 Test Item Value Reference Range Interpretation Comments POCT GLU (test code = 0849760514) 428 mg/dL 70-110 H Lab Interpretation (test code = Abnormal 34879-8) [facility]. METABOLIC PANEL (35195)2020-05-19 22:32:00 Test Item Value Reference Range Interpretation Comments NA (test code = 137 mmol/L 135-145 1800815892) K (test code = 4.0 mmol/L 3.5-5 4558446972) CL (test code = 102 mmol/L 98-108 3027487361) CO2 TOTAL (test code = 25 mmol/L 23-31 1243257295) AGAP (test code = 2-16 0842631058) BUN (test code = 11 mg/dL 7-23 6911695955) GLUCOSE (test code = 270 mg/dL 70-110 H 4246392518) CREATININE (test code = 0.51 mg/dL 0.5-1.04 9232961211) TOTAL BILI (test code = 0.5 mg/dL 0.1-1.7 4351910261) CALCIUM (test code = 9.0 mg/dL 8.6-10.6 1054684193) T PROTEIN (test code = 7.4 g/dL 6.3-8.2 1316103635) ALBUMIN (test code = 4.4 g/dL 3.5-5 3719379685) ALK PHOS (test code = 96 U/L 34-122 3536111312) ALTv (test code = 18 U/L 5-35 1742-6) AST(SGOT) (test code = 21 U/L 13-40 3835712223) eGFR Calculation mL/min/1.73m2 (Non-) (test code = 3520518729) eGFR Calculation mL/min/1.73m2 () (test code = 1216171610) FALLON (test code = FALLON) Association of [...] tests). Lab Interpretation Abnormal (test code = 00370-0) [facility] 22:32:00 Test Item Value Reference Range Interpretation Comments LIPASE (test code = 3407979046) 121 U/L 0-220 Lab Interpretation (test code = Normal 31816-8) [facility]2021-[facility]-20 22:30:00 Test Item Value Reference Range Interpretation Comments APPEARANCE (test code = Hazy Clear A 8563365583) COLOR (test code = Yellow Yellow 5961027704) PH (test code = 4.8-8.0 2751632381) SP GRAVITY (test code = 1.003-1.030 1491990130) GLU U QUAL (test code = 500 mg/dL Normal A 2164992002) BLOOD (test code = 1+ Negative A 4581209282) KETONES (test code = Negative Negative 2888575472) PROTEIN (test code = 30 mg/dL Negative A 2887-8) UROBILIN (test code = Normal Normal 1786566502) BILIRUBIN (test code = Negative Negative 4280450152) NITRITE (test code = Negative Negative 9945961574) [place] (test code = 75/uL Negative A 7688116336) RBC/HPF (test code = See_Comment H [Autom ated message] [id number]) The system [employer] generated this result transmit jeny reference range : 0 - 3 HPF. The refe rence range was not u sed to interpret th is result as normal/abnormal . WBC/HPF (test code = See_Comment H [Autom ated message] [id number]) The system admetricks generated this result transmit jeny reference range : 0 - 5 HPF. The refe rence range was not u sed to interpret th is result as normal/abnormal . BACTERIA (test code = Few Negative A 6021418341) MUCOUS (test code = Slight Negative LPF A 2582460818) SQ EPITH (test code = HPF 7874057045) Lab Interpretation (test Abnormal code = 12962-7) [facility] WITH [id number] 22:14:00 Test Item Value Reference Range Interpretation [...] (test code = 37.7 fL 39-49.9 L 91068-3) RDW-CV (test code = 13.0 % 12-15.5 788-0) PLT (test code = See_Comment [Automated 777-3) message] The sy stem which generated this result transmitted reference range : 166 - 358 10*3/ ?L. The reference r farrah was not used to interpret this result as normal/abnormal . MPV (test code = 11.1 fL 9.5-12.9 59815-1) NRBC/100 WBC (test See_Comment [Automat ed code = 0967727322) message] The system which generated this result transmitted reference range : 0.0 - 10.0 /100 WBCs. The refer ence range was not u sed to interpret th is result as normal/abnormal . NRBC x10^3 (test code <0.01 See_Comment [Auto mated = 2285490240) message] The s ystem which generated this result transmitted reference range : 10*3/?L. The reference range was not used to interpret this result as normal/abnormal . GRAN MAT (NEUT) % 49.2 % (test code = 770-8) IMM GRAN % (test code 0.70 % = 5068238804) LYMPH % (test code = 41.0 % 736-9) MONO % (test code = 7.0 % 5905-5) EOS % (test code = 1.5 % 713-8) BASO % (test code = 0.6 % 706-2) GRAN MAT x10^3(ANC) 4.07 10*3/uL 1.88-7.09 (test code = 1420390346) IMM GRAN x10^3 (test 0.06 10*3/uL 0-0.06 code = 0653364245) LYMPH x10^3 (test code 3.39 10*3/uL 1.32-3.29 H = 731-0) MONO x10^3 (test code 0.58 10*3/uL 0.33-0.92 = 742-7) EOS x10^3 (test code = 0.12 10*3/uL 0.03-0.39 711-2) BASO x10^3 (test code 0.05 10*3/uL 0.01-0.07 = 704-7) Lab Interpretation Abnormal (test code = 66913-5) [facility] 07:08:00 Test Item Value Reference Range Interpretation Comments POCT GLU (test code = 0229371076) 290 mg/dL 70-110 H Lab Interpretation (test code = Abnormal 49341-3) [facility]58786[facility]2019-08-22 05:49:00 Test Item Value Reference Range Interpretation Comments NA (test code = 139 mmol/L 135-145 5741082154) K (test code = 4.5 mmol/L 3.5-5 1481027309) CL (test code = 103 mmol/L 98-108 3044059012) CO2 TOTAL (test code = 25 mmol/L 23-31 1985855877) AGAP (test code = 2-16 5140769309) BUN (test code = 7 mg/dL 7-23 4057659449) GLUCOSE (test code = 312 mg/dL 70-110 H 8519686908) CREATININE (test code = 0.55 mg/dL 0.5-1.04 6796928603) TOTAL BILI (test code = 0.7 mg/dL 0.1-1.4 6521741564) CALCIUM (test code = 10.0 mg/dL 8.6-10.6 8065113255) T PROTEIN (test code = 8.4 g/dL 6.3-8.2 H 6507425393) ALBUMIN (test code = 4.7 g/dL 3.5-5 7512831918) ALK PHOS (test code = 82 U/L 34-122 5611034667) ALTv (test code = 18 U/L 5-35 1742-6) AST(SGOT) (test code = 34 U/L 13-40 2182861776) eGFR Calculation mL/min/1.73m2 (Non-) (test code = 2920591417) eGFR Calculation mL/min/1.73m2 () (test code = 3119473981) FALLON (test code = FALLON) Association of [...] tests). Lab Interpretation Abnormal (test code = 54787-7) [facility] Test Item Value Reference Range Interpretation Comments LIPASE (test code = 1189049683) 174 U/L 0-220 Lab Interpretation (test code = Normal 49609-2) [facility] [id number] 05:35:00 Test Item Value Reference Range Interpretation Comments WBC (test code = See_Comment [Automated 7197-2) message] The sy stem which generated this result transmitted reference range : 4.30 - 11.10 10*3/?L. The reference range was not used to interpret this result as normal/abnormal . RBC (test code = See_Comment [Automated 589-3) message] The sy stem which generated this [...] (test code = 37.7 fL 39-49.9 L 91426-9) RDW-CV (test code = 13.3 % 12-15.5 788-0) PLT (test code = See_Comment [Automated 777-3) message] The sy stem which generated this result transmitted reference range : 166 - 358 10*3/ ?L. The reference r farrah was not used to interpret this result as normal/abnormal . MPV (test code = 11.2 fL 9.5-12.9 72232-7) NRBC/100 WBC (test See_Comment [Automat ed code = 6294193398) message] The system which generated this result transmitted reference range : 0.0 - 10.0 /100 WBCs. The refer ence range was not u sed to interpret th is result as normal/abnormal . NRBC x10^3 (test code <0.01 See_Comment [Auto mated = 2441901767) message] The s ystem which generated this result transmitted reference range : 10*3/?L. The reference range was not used to interpret this result as normal/abnormal . GRAN MAT (NEUT) % 57.4 % (test code = 770-8) IMM GRAN % (test code 0.50 % = 0853843915) LYMPH % (test code = 33.7 % 736-9) MONO % (test code = 6.6 % 5905-5) EOS % (test code = 1.3 % 713-8) BASO % (test code = 0.5 % 706-2) GRAN MAT x10^3(ANC) 6.27 10*3/uL 1.88-7.09 (test code = 3780064420) IMM GRAN x10^3 (test 0.05 10*3/uL 0-0.06 code = 0487772826) LYMPH x10^3 (test code 3.67 10*3/uL 1.32-3.29 H = 731-0) MONO x10^3 (test code 0.72 10*3/uL 0.33-0.92 = 742-7) EOS x10^3 (test code = 0.14 10*3/uL 0.03-0.39 711-2) BASO x10^3 (test code 0.05 10*3/uL 0.01-0.07 = 704-7) Lab Interpretation Abnormal (test code = 29457-4) [facility]ID [facility]2019-08-22 05:28:00 Test Item Value Reference Range Interpretation Comments SARS-CoV-2 Rapid ID NOW Not Detected Not Detected (test code = 53141-7) FALLON (test code = FALLON) ID NOW COVID-19 Assay is an isothermal nucleic acid amplification test intended for the qualitative detection of nucleic acid from SARS-CoV-2 viral RNA in nasopharyngeal (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 It is used under Emergency [...] indicated. Lab Interpretation Normal (test code = 76815-2) [facility] 05:20[facility]00 Test Item Value Reference Range Interpretation Comments APPEARANCE (test code = Clear Clear 3299333759) COLOR (test code = Straw Yellow A 1945944390) PH (test code = 4.8-8.0 6157712871) SP GRAVITY (test code = 1.003-1.030 3402343043) GLU U QUAL (test code = 500 mg/dL Normal A 2787968225) BLOOD (test code = Negative Negative INTERFERE NCE FROM 9452448117) ASCORBIC ACID M AY CAUSE FALSE NEG ATIVE RESULT KETONES (test code = Negative Negative 0564201527) PROTEIN (test code = Negative Negative 2887-8) UROBILIN (test code = Normal Normal 7042065013) BILIRUBIN (test code = Negative Negative 0547566284) NITRITE (test code = Negative Negative 9127991988) [place] PARTH (test code = Negative Negative 9875915148) RBC/HPF (test code = <1 See_Comment [Autom ated message] 3478616431) The system [employer]metricks generated this result transmitted ref erence range: 0 - 3 HP F. The reference range was not used to int erpret this result as normal/abnormal . WBC/HPF (test code = See_Comment [Autom ated message] 2307193609) The system [employer] generated this result transmitted ref erence range: 0 - 5 HP F. The reference range was not used to int erpret this result as normal/abnormal . BACTERIA (test code = Few Negative A 1106704424) MUCOUS (test code = Slight Negative LPF A 5880184043) SQ EPITH (test code = HPF 0672597254) Lab Interpretation Abnormal (test code = 33673-5) [facility] [id number] 17:07:00 Test Item Value Reference Range Interpretation Comments POC-GLUCOSE METER 298 mg/dL 70-110 H TESTED AT [place] [address] ([facility]) (test code = ELIZABETH Flynn [place] [address]) [address] POCT-GLUCOSE [id number] 12:11:00 Test Item Value Reference Range Interpretation Comments POC-GLUCOSE METER 331 mg/dL 70-110 H Notified Rina Low MD/TESTED ([facility]) (test code = AT [place] [address] [place] [address]) [facility] [address] POCT-GLUCOSE [id number] 10:55:00 Test Item Value Reference Range Interpretation Comments POC-GLUCOSE METER 365 mg/dL 70-110 H TESTED AT [place] [address] ([facility]) (test code = ELIZABETH [place] [address]) [address] POCT-GLUCOSE [id number] 08:44:00 Test Item Value Reference Range Interpretation Comments POC-GLUCOSE METER 291 mg/dL 70-110 H TESTED AT [place] [address] ([facility]) (test code = EL[place]ABETH Flynn [place] [address]) [address] LIPID [id number] 05:56:00 Test Item Value Reference Range Interpretation Comments TRIGLYCERIDES ([facility]) (test code = 279 mg/dL 540) CHOLESTEROL ([facility]) (test code = 119 mg/dL 631) HDL CHOLESTEROL ([facility]) (test code 22 mg/dL = 976) LDL CHOLESTEROL CALCULATED ([facility]) 41 mg/dL (test code = 633) Triglyceride Reference Range: Low Risk <150 Borderline 150-199 High Risk 200- 499 Very High Risk >=500Cholesterol Reference Range: Low Risk <200 Borderline 200-239 High Risk >240HDL Cholesterol Reference Range: Low Risk >=60 High Risk <40LDL Cholesterol Reference Range: Optimal <100 Near Optimal 100-129 Borderline 130-159 High 160-189 Very High >=190POCT-GLUCOSE [id number] 21:50:00 Test Item Value Reference Range Interpretation Comments POC-GLUCOSE METER 318 mg/dL 70-110 H TESTED AT [place] [address] ([facility]) (test code = ELIZABETH Flynn [facility] 1538) [address] POCT-GLUCOSE [id number] 18:04:00 Test Item Value Reference Range Interpretation Comments POC-GLUCOSE METER 238 mg/dL 70-110 H TESTED AT [place] [address] ([facility]) (test code = ELIZABETH Flynn [facility] 1538) [address] POCT-GLUCOSE [id number] 12:22:00 Test Item Value Reference Range Interpretation Comments POC-GLUCOSE METER 290 mg/dL 70-110 H TESTED AT [place] [address] ([facility]) (test code = ELIZABETH Flynn [facility] 1538) [address] POCT-GLUCOSE [id number] 09:20:00 Test Item Value Reference Range Interpretation Comments POC-GLUCOSE METER 293 mg/dL 70-110 H TESTED AT [place] [address] ([facility]) (test code = ELIZABETH Flynn [place] 15[address]) [address] POCT-GLUCOSE [id number] 21:00:00 Test Item Value Reference Range Interpretation Comments POC-GLUCOSE METER 225 mg/dL 70-110 H TESTED AT [place] [address] ([facility]) (test code = ELIZABETH Flynn [place] 1538) [address] CT, CAROTID, [id number] 18:01:00FINAL REPORT CT angiogram of the upper [...] Hall Verified Date/Time: 08/30/2017 18:01:31 Reading Location: [address] Neuro Reading Room [facility], CTANGIO [id number] 18:01:00FINAL REPORT CT angiogram of the upper [...] [place] Verified Date/Time: 08/30/2017 18:01:31 Reading Location: [facility] C013V Neuro Reading Room POCT-GLUCOSE [id number] 17:21:00 Test Item Value Reference Range Interpretation Comments POC-GLUCOSE METER 256 mg/dL 70-110 H TESTED AT [place] [address] ([facility]) (test code = [facility] 1538) [address] POCT-GLUCOSE [id number] 12:00:00 Test Item Value Reference Range Interpretation Comments POC-GLUCOSE METER 289 mg/dL 70-110 H TESTED AT [place] [address] ([facility]) (test code = [facility] 1538) [address] BASIC METABOLIC [id number] 10:12:00 Test Item Value Reference Range Interpretation [...] NOT APPLICABLE FOR DIALYSIS PATIEN TS. POCT-GLUCOSE [id number] 08:42:00 Test Item Value Reference Range Interpretation Comments POC-GLUCOSE METER 259 mg/dL 70-110 H TESTED AT [facility] 6720 (BEAKER) (test code = [place] 1538) [address] TROPONIN [id number] 06:14:00 Test Item Value Reference Range Interpretation [...] = 2801) RAD, CHEST, 1 VIEW, NON [id number] 04:23:00Reason for exam:->chest painShould this be performed at the bedside?->YesFINAL REPORT Comparison examination: None No pneumothorax, focal pulmonary conso lidation, or significant pleural effusion. Normal cardiomediastinal contours. Normal skeleton and soft tissues. Impression: No acute abnormality. Signed: Ervin Jenkinseperic Verified Date/Time: 08/30/2017 04:23:04 Reading Location: [address] Reading Room POCT-GLUCOSE [id number] 21:18:00 Test Item Value Reference Range Interpretation Comments POC-GLUCOSE METER 151 mg/dL 70-110 H TESTED AT [facility] [address] ([facility]) (test code = ELIZ[place]ETH [place] 1538) [address] POCT-GLUCOSE [id number] 17:59:00 Test Item Value Reference Range Interpretation Comments POC-GLUCOSE METER 146 mg/dL 70-110 H TESTED AT [facility] 6720 (JESSICA) (test code = ELIZABETH [place] [facility] 1538) [address] HEMOGLOBIN [id number] 15:56:00 Test Item Value Reference Range Interpretation Comments HEMOGLOBIN A1C (JESSICA) (test code = 13.7 % 4.3-6.1 H 368) CT, BRAIN, WITHOUT [id number] 14:52:00FINAL REPORT CT head without contrast. Comparisons: No Reason for exam: Follow up on stroke. Discussion: Multiple axial CT images of the head are provided without contrast evaluated in brain and bone windows. Dose modulation, iterative reconstruction, and/or weight based adjustment of the mA/kV was utilized to reduce the radiation dose to as low as reasonably achievable. There isno CT evidence of intracranial hemorrhage, mass-effect, hydrocephalus, [...] Hall Verified Date/Time: 08/29/2017 14:52:09 Reading Location: [address] Neuro Reading Room POCT-GLUCOSE [id number] 14:17:00 Test Item Value Reference Range Interpretation Comments POC-GLUCOSE METER 423 mg/dL 70-110 HH Notified R Devante SOUZA/TESTED (JESSICA) (test code = AT [facility] [address] [facility] [address] VITAMIN [id number] 06:48:00 Test Item Value Reference Range Interpretation Comments VITAMIN B12 (JESSICA) (test code = 300 pg/mL 213-748 094) TSH/FREE T4 IF [id number] 06:48:00 Test Item Value Reference Range Interpretation Comments THYROID STIMULATING HORMONE 1.55 uIU/mL 0.35-4.94 (JESSICA) (test code = 772) CBC W/PLT COUNT & AUTO [id number] 05:10:00 Test Item Value Reference Range Interpretation [...] (BEAKER) (test code = 2801) URINALYSIS W/ [id number] 23:32:00 Test Item Value Reference Range Interpretation [...] = 1585) Occasional SOURCE(BEAKER) (test code = 6895) TROPONIN [id number] 23:12:00 Test Item Value Reference Range Interpretation [...] acute neurological disease, and persistent tachyarrhythmia.BASIC METABOLIC [id number] 23:05:00 Test Item Value Reference Range Interpretation [...] NOT APPLICABLE FOR DIALYSIS PATIEN TS. POCT-GLUCOSE [id number] 20:49:00 Test Item Value Reference Range Interpretation Comments POC-GLUCOSE METER 376 mg/dL 70-110 H Notified R Devante SOUZA/TESTED (BEAKER) (test code = AT [facility] [address] [place] [address]) [facility] [address]"
[2022-02-28 14:58] LABS: Urine Blood Negative (Negative); Urine Glucose Negative (Negative); Urine Protein Negative (Negative); Urine Specific Gravity >=1.030 (1.005-1.030); Urine pH 5.5 (5.0-7.0)
[2022-02-28] MEDS ORDERED: NA CHLORIDE 0.9% 1,000 ML ONE (15:00)
[2022-02-28] MEDS ORDERED: ONDANSETRON 4 MG/2 ML VIAL ONE (15:00)
[2022-02-28] MEDS ORDERED: FAMOTIDINE 20 MG/2 ML VIAL IV ONE (15:02)
[2022-02-28 15:04] LABS: Absolute Lymphocytes (CBC) 2.7 K/uL (0.7-4.9); Hematocrit 39.2 % (36.0-45.0); MCV 79.6 fL (80-100); MPV 8.8 fL (7.6-11.3); RBC Red Blood Cell Count 4.93 M/uL (3.86-4.86)
[2022-02-28 15:12] LABS: Urine Bacteria <20 /HPF (<20); Urine Mucus Slight /HPF (None Seen); Urine RBC <5 /HPF (None Seen)
[2022-02-28 15:14] LABS: Barbiturates NEGATIVE (NEGATIVE); Benzodiazepines NEGATIVE (NEGATIVE); Cocaine NEGATIVE (NEGATIVE); METHAMPHETAM NEGATIVE (NEGATIVE); Methadone NEGATIVE (NEGATIVE); Opiates NEGATIVE (NEGATIVE); Phencyclidine NEGATIVE (NEGATIVE); THC Cannibis NEGATIVE (NEGATIVE)
[2022-02-28 15:23] LABS: Albumin 3.7 g/dL (3.4-5.0); Bilirubin Total 0.2 mg/dL (0.2-1.0); Potassium 3.5 mmol/L (3.5-5.1); Protein, Total 7.8 g/dL (6.4-8.2)
[2022-02-28] MEDS ORDERED: DICYCLOMINE HCL 20 MG/2 ML AMP IM ONE (15:53)
[2022-02-28] MEDS ORDERED: LORazepam 2 MG/ML VIAL ONE (15:53)
--- NOTE | 2022-02-28 16:20 | EDPHYS ---
Physician Documentation [facility] Name: Elly Clarke Age: 52 yrs Sex: Female : 1970 Arrival Date: 02/28/2022 Time: 13:48 Bed 10 Private MD: ED Physician Wil Patterson HPI: 02/28 14:45 This 52 yrs old Female presents to ER via Ambulatory with complaints of Abdominal Pain. cp 14:45 The patient presents with abdominal pain mid abdomen. Onset: The symptoms/episode cp began/occurred 2 day(s) ago. The symptoms do not radiate. Associated signs and symptoms: Pertinent positives: nausea, Pertinent negatives: chest pain, constipation, diarrhea, fever, headache, shortness of breath, active vomiting. The symptoms are described as constant. Severity of pain: in the emergency department the pain is unchanged despite home interventions. The patient has experienced similar episodes in the past, multiple times, patient reports history of gastroparesis. 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 N/A - Hysterectomy kb3 Historical: - Allergies: 14:35 Claritin (insomnia); kb3 14:35 Compazine (Seizures); kb3 14:35 Demerol (HEART RACING); kb3 14:35 (Hives); kb3 14:35 Morphine (RACING HEART); kb3 - PMHx: 14:35 Anxiety; Arthritis; Chrohns; Chronic pain; Diabetes - NIDDM; Dramatic migraine events; kb3 Gastroparesis; High Cholesterol; Hypertension; insomnia; Migraines; Pancreatitis; spinal stenosis; - PSHx: 14:35 Cholecystectomy; Knee sx x 2; Tonsillectomy; Total abdominal hysterectomy; tumor kb3 removed from septum; - Immunization history:: Adult Immunizations up to date, Client reports receiving the 2nd dose of the Covid vaccine, Last tetanus immunization: up to date. - Social history:: Smoking status: Patient denies any tobacco usage or history of. ROS: 14:50 Constitutional: Negative for body aches, chills, fever. cp 14:50 Cardiovascular: Negative for chest pain, palpitations. cp 14:50 Respiratory: Negative for cough, shortness of breath, wheezing. 14:50 Abdomen/GI: Positive for abdominal pain, nausea and vomiting, Negative for diarrhea, constipation, hematemesis, black/tarry stool, rectal bleeding, active vomiting. 14:50 Back: Negative for pain at rest, pain with movement. 14:50 : Negative for urinary symptoms. 14:50 Neuro: Negative for altered mental status, headache, weakness. 14:50 All other systems are negative. Exam: 14:55 Constitutional: The patient appears in no acute distress, alert, awake, cp non-diaphoretic, non-toxic, well developed, well nourished, obese. 14:55 Head/Face: Normocephalic, atraumatic. cp 14:55 Eyes: Periorbital structures: appear normal, Conjunctiva: normal, no exudate, no injection, Sclera: no appreciated abnormality, Lids and lashes: appear normal, bilaterally. 14:55 ENT: External ear(s): are unremarkable, Nose: is normal, Mouth: Lips: moist, Oral mucosa: moist, Posterior pharynx: Airway: no evidence of obstruction, patent. 14:55 Chest/axilla: Inspection: normal. 14:55 Cardiovascular: Rate: tachycardic, Rhythm: regular. 14:55 Respiratory: the patient does not display signs of respiratory distress, Respirations: normal, no use of accessory muscles, no retractions, labored breathing, is not present, Breath sounds: are clear throughout, no decreased breath sounds, no stridor, no wheezing. 14:55 Abdomen/GI: Inspection: obese Bowel sounds: active, all quadrants, Palpation: soft, in all quadrants, moderate abdominal tenderness, in the mid abdomen, rebound tenderness, is not appreciated, involuntary guarding, is not appreciated. 14:55 Back: CVA tenderness, is absent. 14:55 Neuro: Orientation: to person, place \T\ time. Mentation: is normal. Vital Signs: 14:32 BP 145 / 107; Pulse 108; Resp 20; Temp 98.5; Pulse Ox 100% ; Weight 102.97 kg; Height 5 kb3 ft. 7 in. (170.18 cm); Pain 8/10; 14:32 Body Mass Index 35.55 (102.97 kg, 170.18 cm) kb3 MDM: 14:38 Patient medically screened. cp 16:20 Data reviewed: vital signs, nurses notes, lab test result(s). cp 16:20 Differential diagnosis: bowel obstruction, non-specific abd pain, pancreatitis, cp Ureterolithiasis, urinary tract infection, chronic pain, drug seeking behavior. 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 Response to treatment: Vomiting resolved. Patient has been seen in this ED multiple times with requests for narcotic pain meds. Will discharge to home for continued monitoring. Special discussion: Based on the patient's Hx, exam, and Dx evaluation, there is no indication for emergent surgery or inpatient Tx. It is understood by the patient/guardian that if the Sx's persist or worsen they need to return immediately for re-evaluation. 02/28 14:38 Order name: CBC with Diff; Complete Time: 15:26 cp 02/28 16:20 Interpretation: Normal except: RBC 4.93; MCV 79.6; MCH 26.1; RDW 15.5. cp 02/28 14:38 Order name: CMP; Complete Time: 15:26 cp 02/28 16:20 Interpretation: Normal except: GLUC 210; AST 11; GLOB 4.1; A/G 0.9; GFR 68. cp 02/28 14:38 Order name: Lipase; Complete Time: 15:26 cp 02/28 14:38 Order name: Urine Microscopic Only; Complete Time: 15:26 cp 02/28 14:38 Order name: UDS; Complete Time: 15:26 cp 02/28 14:58 Order name: Urine Dipstick-Ancillary; Complete Time: 15:26 EDMS 02/28 14:38 Order name: IV Saline Lock; Complete Time: 14:55 cp 02/28 14:38 Order name: Labs collected and sent; Complete Time: 14:55 cp 02/28 14:38 Order name: Urine Dipstick-Ancillary (obtain specimen); Complete Time: 15:06 cp 02/28 14:38 Order name: Urine Test (obtain specimen); Complete Time: 15:06 cp Administered Medications: 15:05 Drug: NS 0.9% 1000 ml Route: IV; Rate: 1 bolus; Site: left antecubital; jh5 15:06 Drug: Pepcid (famotidine) 20 mg Route: IVP; Site: left antecubital; [facility] 15:06 Drug: Zofran (Ondansetron) 4 mg Route: IVP; Site: left antecubital; [facility] 15:58 Drug: Dicyclomine 20 mg Route: IM; Site: right gluteus; 5 15:58 Drug: Ativan (LORazepam) 0.5 mg Route: IVP; Site: left antecubital; [facility] Disposition Summary: 02/28/22 16:19 Discharge Ordered Location: Home cp Problem: chronic cp Symptoms: are unchanged cp Condition: Stable cp Diagnosis - Abdominal pain, unspecified cp Followup: cp - With: Private Physician - When: 1 - 2 days - Reason: Recheck today's complaints Discharge Instructions: - Discharge Summary Sheet cp - Abdominal Pain, Adult cp - Chronic Pain, Adult cp Forms: - Medication Reconciliation Form cp - Thank You Letter cp - Antibiotic Education cp - Prescription Opioid Use cp Prescriptions: - Zofran 4 mg Oral Tablet - take 1 tablet by ORAL route every 12 hours As needed; 20 tablet; Refills: 0, cp Product Selection Permitted - dicyclomine 20 mg Oral Tablet - take 1 tablet by ORAL route 4 times per day; 30 tablet; Refills: 0, Product cp Selection Permitted Addendum: 03/04/2022 13:53 Co-signature as Attending Physician, Wil Patterson MD. r n Signatures: Dispatcher [employer] Wil Desir MD MD rn Page, Corey, PA PA cp Mer Mishra RN RN jh5 April Hernandez RN RN kb3 Corrections: (The following items were deleted from the chart) 02/28 14:36 14:35 Home Meds: Abilify 30 mg Oral tab 1 tab; kb3 kb3 15:28 15:28 Normal except: GLUC 210; GFR 68; AST 11. cp cp 16:20 15:28 Normal except: GLUC 210; AST 11; GLOB 4.1; A/G 0.9. cp cp
--- NOTE | 2022-02-28 16:20 | ER ---
Nurse's Notes [facility] Name: Elly Clarke Age: 52 yrs Sex: Female : 1970 Arrival Date: 02/28/2022 Time: 13:48 Bed 10 Private MD: Diagnosis: Abdominal pain, unspecified Presentation: 02/28 14:32 Chief complaint: Patient states: Middle lower abdominal pain with N/V/D x2 days. Denies kb3 urinary symptoms. Coronavirus screen: Vaccine status: Patient reports receiving the 2nd dose of the covid vaccine. Client denies travel out of the [place] in the last 14 days. Ebola Screen: Patient negative for fever greater than or equal to 101.5 degrees Fahrenheit, and additional compatible Ebola Virus Disease symptoms Patient denies exposure to infectious person. Patient denies travel to an Ebola-affected area in the 21 days before illness onset. Initial Sepsis Screen: Does the patient meet any 2 criteria? No. Patient's initial sepsis screen is negative. Does the patient have a suspected source of infection? No. Patient's initial sepsis screen is negative. Risk Assessment: Do you want to hurt yourself or someone else? Patient reports no desire to harm self or others. Onset of symptoms was February 26, 2022. 14:32 Method Of Arrival: Ambulatory kb3 14:32 Acuity: HANNAH 3 kb3 Triage Assessment: 14:35 General: Appears in no apparent distress. uncomfortable, Behavior is calm, cooperative. kb3 Pain: Complains of pain in suprapubic area Pain does not radiate. Pain currently is 8 out of 10 on a pain scale. GI: Reports lower abdominal pain, diarrhea, nausea, vomiting. 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/A - Hysterectomy kb3 Historical: - Allergies: 14:35 Claritin (insomnia); kb3 14:35 Compazine (Seizures); kb3 14:35 Demerol (HEART RACING); kb3 14:35 (Hives); kb3 14:35 Morphine (RACING HEART); kb3 - PMHx: 14:35 Anxiety; Arthritis; Chrohns; Chronic pain; Diabetes - NIDDM; Dramatic migraine events; kb3 Gastroparesis; High Cholesterol; Hypertension; insomnia; Migraines; Pancreatitis; spinal stenosis; - PSHx: 14:35 Cholecystectomy; Knee sx x 2; Tonsillectomy; Total abdominal hysterectomy; tumor kb3 removed from septum; - Immunization history:: Adult Immunizations up to date, Client reports receiving the 2nd dose of the Covid vaccine, Last tetanus immunization: up to date. - Social history:: Smoking status: Patient denies any tobacco usage or history of. Vital Signs: 14:32 BP 145 / 107; Pulse 108; Resp 20; Temp 98.5; Pulse Ox 100% ; Weight 102.97 kg; Height 5 kb3 ft. 7 in. (170.18 cm); Pain 8/10; 14:32 Body Mass Index 35.55 (102.97 kg, 170.18 cm) kb3 ED Course: 13:48 Patient arrived in ED. rg4 14:07 Kam Charles PA is PHCP. cp 14:07 Wil Patterson MD is Attending Physician. cp 14:35 Triage completed. kb3 14:35 Arm band placed on right wrist. kb3 14:45 Mer Mishra, NAT is Primary Nurse. 5 Administered Medications: 15:05 Drug: NS 0.9% 1000 ml Route: IV; Rate: 1 bolus; Site: left antecubital; 5 15:06 Drug: Pepcid (famotidine) 20 mg Route: IVP; Site: left antecubital; 5 15:06 Drug: Zofran (Ondansetron) 4 mg Route: IVP; Site: left antecubital; [facility] 15:58 Drug: Dicyclomine 20 mg Route: IM; Site: right gluteus; 5 15:58 Drug: Ativan (LORazepam) 0.5 mg Route: IVP; Site: left antecubital; [facility] Outcome: 16:19 Discharge ordered by . cp 16:49 Patient left the ED. 5 Signatures: Kam Charles PA PA cp Garcia, Rubi rg4 Mer Mishra RN RN 5 April Hernandez RN RN kb3 Corrections: (The following items were deleted from the chart) 14:36 14:35 Home Meds: Abilify 30 mg Oral tab 1 tab; kb3 kb3
[2022-02-28 16:54] VITALS: BP 145/107; TEMP 98.5; O2SAT 100
== END 2022-02-28 16:49 | disposition home or self-care (01) ==
LOC: ER 13:44
DX: R10.30 Lower abdominal pain, unspecified (principal); R11.0 Nausea; I10 Essential (primary) hypertension; E11.9 Type 2 diabetes mellitus without complications; Z88.5 Allergy status to narcotic agent; Z88.8 Allergy status to other drugs, medicaments and biological substances
CPT/HCPCS: 85025; 36415; 83690; 80053; 80307; 96375; 96372; 96374; 99282; J0500; J7030; J2405; 81003; 81015

== ENCOUNTER 2022-03-30 19:06 | Emergency (ER) | payer OTHER ==
--- OUTSIDE RECORDS SUMMARY | 2022-03-30 19:17 | XMS REPORT | Continuity of Care Document ---
:1970 Author Organization [facility] t Address [address] [place] [address] Care Team Providers Name Role Phone Pavel Curran MD Primary Care Physician [phone] Kv[place] Attending Clinician Unavailable Doctor Unassigned, [place] Attending Clinician Unavailable KRYS JEWELL Attending Clinician Unavailable Krys Garcia Attending Clinician Amari Burns Attending Clinician DOUG CABRERA Attending Clinician Unavailable Mayte Linn Attending Clinician Pastora Wick S Attending Clinician Jose Cruz Prakash MD S Attending Clinician Apoorva Barragan RN Attending Clinician Unavailable Jinny Box RN Attending Clinician Unavailable Josr Chaparro MD Attending Clinician [facility] Attending Clinician Unavailable HARINI HUTTON Attending Clinician Unavailable Severns_D Admitting Clinician Unavailable KRYS JEWELL Admitting Clinician Unavailable DOUG CABRERA Admitting Clinician Unavailable HARINI HUTTON Admitting Clinician Unavailable Payers Payer Name Policy Type Policy Number Effective Date Expiration Date Nica alvarez [facility] PPO [id number] 2020 00:00:00 [employer] [id number] 1989 ADMINISTRATORS 00:00:00 MEDICAID SSI PENDING PENDING 2020 00:00:[address] [facility] [id number] Problems Condition Condition Condition Status Onset Resolution Last Treating Co mments Source Name Details Category Date Date Treatment Clinician Date Migraine Migraine Disease Active Unive rs equivalent equivalent 5-07 it y of 00:00: [place] [facility] [place] Loss of Loss of Disease Active 2019- Univers taste taste 5-07 ity of 00:00: [place] [id number] [facility] [place] Nausea Nausea Disease Active 2019- Univers 5-07 ity of 00:00: [place] [address] [facility] [place] Cough Cough Disease Active 2019- Univers 5-07 ity of 00:00: [place] [facility] Dehydratio Dehydratio Disease Active 2019- U nivers n n 5-07 ity of 00:00: [place] [facility] Loose Loose Disease Active 2019- Univers stools stools 5-07 ity of 00:00: [place] [facility] [place] Left sided Left sided Disease Active 2017- [facility] 00:[facility]: Medical [address] [place] [address] Neurologic Neurologic Disease Active [facility] al al 6-01 [facility] symptoms symptoms 00:00: Medica l 00 [place] Abdominal Abdominal Disease Active Uni vers pain pain 3-03 ity of 00:00: [place] 00 Medical Branch Obesity Obesity Disease Active 2015-03 Univers (BMI (BMI 2-29 ity of 30-39.9) 30-39.9) 00:00: [place] [facility] Gastropare Gastropare Disease Active 2015-03 U nivers sis sis 2-29 ity of 00:00: [place] [facility] H/O: H/O: Disease Active Univers hysterecto hysterecto 9-09 it y of my my 00:00: [place] [facility] Morbid Morbid Disease Active Univers obesity obesity 8-30 ity of 00:00: [place] 00 Medical Branch Chronic Chronic Disease Active Univers abdominal abdominal 1-27 ity of pain pain 00:00: Medical Branch HTN HTN Disease Active Univers [...] oephedri adverse 00:00: Medical ne reaction 00 [place] Prochlor Propensi Active Other (See Seizures [facility] perazine ty to Comments) 08-28 [facility] adverse 00:00: Medical reaction 00 [place] Meperidi Propensi Active Rash [facility] ne ty to 08-28 [facility] adverse 00:00: Medical reaction 00 [place] Phenobar Drug Active Itching, [facility] b-[facility]os[facility] Allergy Rash 08-28 [facility] -Atropin 00:00: Medical e-Scop [place] Morphine Propensi Active Rash [facility] ty to 08-28 [facility] adverse 00:00: Medical reaction 00 [place] MUSHROOM DRUG Active Hives 2015-03 Univers [...] 1-24 ity of -ATROPIN 00:00: [place] E-SCOP Medical Branch MORPHINE DRUG Active Rash Univers INGREDI -24 ity of 00:00: [place] 00 Medical Branch Loratadi Propensi Active Palpitations Univers ne ty to -24 ity of adverse 00:00: [place] reaction 00 [facility] Prochlor Propensi Active Other - See seizures Univers perazine ty to comments 04-22 ity of Edisylat adverse 00:00: [place] e reaction 00 Medical Branch Meperidi Propensi Active Rash Univer s ne Hcl ty to 24 ity of adverse 00:00: [place] reaction [facility] Phenobar Propensi Active Anaphylaxis U nivers b-Hyoscy ty to 24 ity of -Atropin adverse 00:00: [place] e-Scop reaction [facility] Morphine Propensi Active Rash Univer s ty to 24 ity of adverse 00:00: [place] reaction 00 [facility] Social History Social Habit Start Date Stop Date Quantity Comments Source Exposure to Not sure [facility] SARS-CoV-2 (event) [facility] Tobacco use and 2017-08-28 2017-08-[address] [email or web address] [address] [facility] exposure 00:00:00 [facility] Sex Assigned At [address] 00:00:00 00:00:00 [facility] Smoking Status Start Date Stop Date Source Never smoker [facility] Medications Ordered Filled Start Stop Current Ordering Indication Dosage Frequency Signature Comments Components Source Medication Medication Date Date Medication? Clinician (SIG) Name Name HYDROcodone 2021- No 1{tbl} 1 tablet, Univers -acetaminop 03-30 Oral, ONCE i ty of hen (NORCO) 01:15: 00:19 NOW, 1 [place] 10-325 mg 00 :00 dose, On Medica l tablet 1 Thu [place] tablet 03/29/21 at 1915, Routine clonazePAM Yes .5mg 0.5 mg, Univ ers (KLONOPIN) 8 Oral, TID, ity of tablet 0.5 01:00: [...] ity of infusion 00:45: 01:05 1,000 mL, [place] 1,000 mL 00 :00 IV Medical Infusion, [place] ONCE, 1 dose, 11/02/20 at 1945, STAT magnesium 2020- No 2g 2 g, IV Univ ers sulfate in 11-02 Piggyback, it y of water 2 23:45: 00:06 ONCE, 1 [place] gram/50 mL 00 :00 dose, Fri Medi nicole (4 %) 11/02/20 at Branch infusion 2 1845, g Routine iopamidol 2020- No [id number] 120mL 120 mL, Univers (ISOVUE 11-02 Intravenou ity o f 370-500 mL) 23:45: 23:45 s, ONCE, 1 [place] injection 00 :00 dose, Fri Medic al 120 mL 11/02/20 at Branch 1845, Routine proMETHazin No 12.5mg 12.5 mg, [...] Branch 11/02/20 at 1715, STAT NaCl 0.9% 0 2020- No 1000mL at 999 Uni vers [...] 1700, STAT 125 mg methylPREDN 2020-0 Yes [id number] Take by Univers ISolone 8-06 mouth ity [...] Indication s: acute pain pantoprazol 2020-0 Yes [id number] 40mg Take 1 Univers e 40 mg EC 8-06 tablet by ity of tablet 00:00: mouth [place] 00 daily. Medical Branch proMETHazin 2020-0 Yes [id number] 25mg Take 1 Univers e 25 mg 8-06 tablet by ity of tablet 00:00: mouth [place] 00 every 6 Medical (six) Branch hours as needed for Nausea and Vomiting (N/V). methylPREDN 2020-0 Yes [id number] Take by Univers ISolone 8-06 mouth ity [...] Indication s: acute pain pantoprazol 2020-0 Yes [id number] 40mg Take 1 Univers e 40 mg EC 8-06 tablet by ity of tablet 00:00: mouth [place] 00 daily. Medical Branch proMETHazin 2020-0 Yes [id number] 25mg Take 1 Univers e 25 mg 8-06 tablet by ity of tablet 00:00: mouth [place] 00 every 6 Medical (six) Branch hours as needed for Nausea and Vomiting (N/V). methylPREDN Yes [id number] Take by Univers ISolone 8-06 mouth ity [...] 4-6). Indication s: acute pain pantoprazol Yes [id number] 40mg Take 1 Univers e 40 mg EC 8-06 tablet by ity of tablet 00:00: mouth 00 daily. Medical Branch proMETHazin Yes [id number] 25mg Take 1 Univers e 25 mg 8-06 tablet by ity of tablet 00:00: mouth [place] 00 every 6 Medical (six) Branch hours as needed for Nausea and Vomiting (N/V). FENTanyl PF 2020- No 50ug 50 mcg, Un [place] (SUBLIMAZE 5-10 05-10 Slow IV ity o f (PF)) 05:45: 04:39 Push, [place] injection 00 :00 ONCE, 1 Medical 50 mcg dose, [facility] Branch 08/06/20 at 0045, Routine iopamidol 2020- No [id number] 100mL 100 mL, Univers (ISOVUE 5-10 05-10 [...] :00 ONCE, 1 Medical 50 mcg dose, [facility] 08/05/20 at 2315, Routine cefTRIAXone 2020- No 1000mg 1,000 mg, Univers (ROCEPHIN) 5-10 05-10 IV ity of 1,000 mg in 04:00: 03:51 Piggyback, [place] NaCl 0.9% 00 :00 ONCE, 1 Medical (NS) 50 mL dose, [facility] MINI-BAG 08/05/20 at 2300, 50 mL
Reas on for Anti-Infec tive: Documented Infection< br>Documen jeny Infection Site: Urine
D uration of Therapy: 7 days dicyclomine 2020- No 20mg 20 mg, Uni vers (BENTYL) 5-10 05-10 Intramuscu ity of injection 03:15: 02:50 [place], ONCE, [place] 20 mg 00 :00 1 dose, Medical [place] 08/05/20 Branch at 2215, Routine NaCl 0.9% 2020- No 1000mL at 999 Uni vers (NS) bolus 5-10 05-10 mL/hr, ity of infusion 02:45: 04:21 1,000 mL, [place] 1,000 mL 00 :00 IV Medical Infusion, [place] ONCE, 1 dose, [place] 08/05/20 at 2145, MANFRED NaCl 0.9% 2020- No 1000mL at 999 Uni vers (NS) bolus 5-10 05-10 mL/hr, ity of infusion 02:15: 04:21 1,000 mL, [place] 1,000 mL 00 :00 IV Medical Infusion, Branch ONCE, 1 dose, [place] 08/05/20 at 2115, MANFRED proMETHazin Yes [id number] 25mg Take 1 Univers e 25 mg 5-09 tablet by ity of tablet 00:00: mouth [place] 00 every 6 Medical (six) Branch hours as needed for N/V unresponsi ve to Ondansetro n. zolpidem Yes [id number] 12.5mg Take 1 U nivers 12.5 mg CR 5-09 tablet by ity of tablet 00:00: mouth at [place] 00 bedtime as Medical needed for Branch Sleep. zolpidem Yes [id number] 12.5mg Take 1 U nivers 12.5 mg CR -09 tablet by ity of tablet 00:00: mouth at [place] 00 bedtime as Medical needed for Branch Sleep. zolpidem Yes [id number] 12.5mg Take 1 U nivers 12.5 mg CR 5-09 tablet by ity of tablet 00:00: mouth at [place] 00 bedtime as Medical needed for Branch Sleep. zolpidem Yes [id number] 12.5mg Take 1 U nivers 12.5 mg CR 5-09 tablet by ity of tablet 00:00: mouth at [place] 00 bedtime as Medical needed for Branch Sleep. proMETHazin 2020- No [id number] 25mg Take 1 Univers e 25 mg 08-05- tablet by ity of tablet 00:00: 00:00 mouth [place] 00 :00 every 6 Medical (six) Branch hours as needed for N/V unresponsi ve to Ondansetro n. dicyclomine 2020- No [id number] 20mg Take 1 Univers 20 mg 08-05-17 tablet by ity of tablet 00:00: 04:59 mouth 4 [place] 00 :00 (four) Medical times Branch daily for 7 days. cefdinir 2020- No [id number] 300mg Take 1 U nivers 300 mg 08-05 05-17 capsule by ity of capsule 00:00: 04:59 mouth 2 [place] 00 :00 (two) Medical times Branch daily for 7 days. insulin 2020- No 8U 8 Units, Unive rs regular 07-23 Slow IV ity of human 01:30: 00:52 Push, [place] (HUMULIN R) 00 :00 ONCE, 1 Medic al injection 8 dose, Sun Bra nch Units 07/22/20 at 2030, Routine dexamethaso 2020- No 10mg 10 mg, IV Univers ne 07-23 Push, ity of (DECADRON 01:15: 00:18 ONCE, 1 [place] PHOSPHATE) 00 :00 dose, [place] Medi nicole injection 07/22/20 at Bran ch 10 mg 2015, STAT NaCl 0.9% 2020- No 1000mL at 999 Uni vers (NS) bolus 4-26 04-26 mL/hr, ity of infusion 00:15: 01:01 1,000 mL, [place] 1,000 mL 00 :00 IV Medical Infusion, Branch ONCE, 1 dose, [place] 07/22/20 at 1915, MANFRED ketorolac 2020- No 30mg 30 mg, Unive rs (TORADOL) 07-22-25 Slow IV ity of injection 23:45: 22:55 Push, [place] 30 mg 00 :00 ONCE, 1 Medical dose, [facility] 07/22/20 at 1845, Routine
membership administrator approving Restricted medication : MAYTE LAMB metoclopram 2020- No 10mg 10 mg, Uni vers meredith HCl 07-22-25 Slow IV ity of (REGLAN) 23:45: 22:55 Push, [place] injection 00 :00 ONCE, 1 Medical 10 mg dose, [facility] 07/22/20 at 1845, MANFRED NaCl 0.9% 2020- No 1000mL at 999 Uni vers (NS) bolus - 04-26 mL/hr, ity of infusion 22:45: 00:17 1,000 mL, [place] 1,000 mL 00 :00 IV Medical Infusion, Branch ONCE, 1 dose, [place] 07/22/20 at 1745, MANFRED ibuprofen Yes [id number] 800mg Take 1 U nivers 800 mg [...] 7-10). Indication s: acute pain ibuprofen Yes [id number] 800mg Take 1 U nivers 800 mg [...] Indication s: acute pain ibuprofen 0 Yes [id number] 800mg Take 1 U nivers 800 mg 4-25 tablet by ity of tablet 00:00: mouth [place] 00 every 6 Medical (six) Branch hours as needed for Pain (scale 4-6). ibuprofen 0 Yes [id number] 800mg Take 1 U nivers 800 mg 4-25 tablet by ity of tablet 00:00: mouth [place] 00 every 6 Medical (six) Branch hours as needed for Pain (scale 4-6). ibuprofen Yes [id number] 800mg Take 1 U nivers 800 mg [...] Indication s: acute pain ibuprofen 2020- No [id number] 800mg Take 1 Univers 800 mg 4-25 04-25 tablet by ity of tablet 00:00: 00:00 mouth [place] 00 :00 every 6 Medical (six) Branch hours as needed for Pain (scale 4-6). NaCl 0.9% 2020- No 1000mL at 999 Uni vers (NS) bolus 05-20- mL/hr, ity of infusion 00:00: 00:05 1,000 [...] Branch 05/19/20 at 1800, STAT proMETHazin Yes [id number] 25mg Take 1 Univers e 25 mg [...] 7-10). Indication s: acute pain proMETHazin Yes [id number] 25mg Insert 1 Univers e 25 mg 2-20 Suppositor ity of suppository 00:00: y [place] 00 rectum Medical every 4 Branch (four) hours as needed for Nausea and Vomiting (N/V). proMETHazin Yes [id number] 25mg Take 1 Univers e 25 mg [...] 7-10). Indication s: acute pain proMETHazin 2020- Yes [id number] 25mg Insert 1 Univers e 25 mg 2-20 Suppositor ity of suppository 00:00: y into [place] 00 rectum Medical every 4 Branch (four) hours as needed for Nausea and Vomiting (N/V). proMETHazin 2020- Yes [id number] 25mg Take 1 Univers e 25 mg [...] Indication s: acute pain proMETHazin 0 Yes [id number] 25mg Insert 1 Univers e 25 mg 2-20 Suppositor ity of suppository 00:00: y into [place] 00 rectum Medical every 4 Branch (four) hours as needed for Nausea and Vomiting (N/V). proMETHazin 0 Yes [id number] 25mg Take 1 Univers e 25 mg [...] 7-10). Indication s: acute pain proMETHazin Yes [id number] 25mg Insert 1 Univers e 25 mg 2-20 Suppositor ity of suppository 00:00: y into [place] 00 rectum Medical every 4 Branch (four) hours as needed for Nausea and Vomiting (N/V). proMETHazin 2020- No [id number] 25mg Take 1 Univers e 25 mg [...] Indication s: acute pain proMETHazin 2020- No [id number] 25mg Insert 1 Univers e 25 mg 2-20 08-06 Suppositor ity o f suppository 00:00: 00:00 y into [place] 00 :00 rectum Medical every 4 Branch (four) hours as needed for Nausea and Vomiting (N/V). ibuprofen 2020-1 Yes [id number] 600mg Take 1 Univers 600 mg 2-12 tablet by ity of tablet 00:00: mouth [place] 00 every 6 Medical (six) Branch hours as needed for Pain (scale 4-6). metFORMIN 2020-1 Yes [id number] 500mg Take 1 Univers 500 mg 2-12 tablet by ity of tablet 00:00: mouth 2 [place] 00 (two) Medical times Branch daily with meals. cyclobenzap 2020-1 Yes [id number] 10mg Take 1 Univers rine 10 mg 2-12 tablet by ity of tablet 00:00: mouth 3 [place] 00 (three) Medical times Branch daily. ibuprofen 2020-1 Yes [id number] 600mg Take 1 Univers 600 mg 2-12 tablet by ity of tablet 00:00: mouth [place] 00 every 6 Medical (six) Branch hours as needed for Pain (scale 4-6). metFORMIN 2020-1 Yes [id number] 500mg Take 1 Univers 500 mg 2-12 tablet by ity of tablet 00:00: mouth 2 00 (two) Medical times Branch daily with meals. cyclobenzap 2020-1 Yes [id number] 10mg Take 1 Univers rine 10 mg 2-12 tablet by ity of tablet 00:00: mouth 3 [place] 00 (three) Medical times Branch daily. ibuprofen 2020-1 Yes [id number] 600mg Take 1 Univers 600 mg 2-12 tablet by ity of tablet 00:00: mouth [place] 00 every 6 Medical (six) Branch hours as needed for Pain (scale 4-6). metFORMIN 2020-1 Yes [id number] 500mg Take 1 Univers 500 mg 2-12 tablet by ity of tablet 00:00: mouth 2 [place] 00 (two) Medical times Branch daily with meals. cyclobenzap 2020-1 Yes [id number] 10mg Take 1 Univers rine 10 mg 2-12 tablet by ity of tablet 00:00: mouth 3 [place] 00 (three) Medical times Branch daily. ibuprofen 2020-1 Yes [id number] 600mg Take 1 Univers 600 mg 2-12 tablet by ity of tablet 00:00: mouth [place] 00 every 6 Medical (six) Branch hours as needed for Pain (scale 4-6). metFORMIN 2020-1 Yes [id number] 500mg Take 1 Univers 500 mg 2-12 tablet by ity of tablet 00:00: mouth 2 00 (two) Medical times Branch daily with meals. cyclobenzap 2019-03 Yes [id number] 10mg Take 1 Univers rine 10 mg 2-12 tablet by ity of tablet 00:00: mouth 3 (three) Medical times Branch daily. ibuprofen 2019- Yes [id number] 600mg Take 1 Univers 600 mg 2-12 tablet by ity of tablet 00:00: mouth [place] 00 every 6 Medical (six) Branch hours as needed for Pain (scale 4-6). metFORMIN 2019-03 Yes [id number] 500mg Take 1 Univers 500 mg 2-12 tablet by ity of tablet 00:00: mouth 2 00 (two) Medical times Branch daily with meals. cyclobenzap 2019-03 Yes [id number] 10mg Take 1 Univers rine 10 mg 2-12 tablet by ity of tablet 00:00: mouth 3 (three) Medical times Branch daily. ibuprofen 2019-03 Yes [id number] 600mg Take 1 Univers 600 mg 2-12 tablet by ity of tablet 00:00: mouth 00 every 6 Medical (six) Branch hours as needed for Pain (scale 4-6). metFORMIN 2019-03 Yes [id number] 500mg Take 1 Univers 500 mg 2-12 tablet by ity of tablet 00:00: mouth 2 (two) Medical times Branch daily with meals. cyclobenzap 2019-03 Yes [id number] 10mg Take 1 Univers rine 10 mg 2-12 tablet by ity of tablet 00:00: mouth 3 (three) Medical times Branch daily. ibuprofen 2019-03 Yes [id number] 600mg Take 1 Univers 600 mg 2-12 tablet by ity of tablet 00:00: mouth [place] 00 every 6 Medical (six) Branch hours as needed for Pain (scale 4-6). metFORMIN 2019- Yes [id number] 500mg Take 1 Univers 500 mg 2-12 tablet by ity of tablet 00:00: mouth 2 (two) Medical times Branch daily with meals. cyclobenzap 2019-03 Yes [id number] 10mg Take 1 Univers rine 10 mg 2-12 tablet by ity of tablet 00:00: mouth 3 (three) Medical times Branch daily. proMETHazin 2019-03- No [id number] 25mg Take 1 Univers e 25 mg 2-12 02-20 tablet by ity of tablet 00:00: 00:00 mouth [place] 00 :00 every 6 Medical (six) Branch hours as needed for Nausea and Vomiting (N/V). insulin 2020-0 2020- No 5U 5 Units, Unive rs regular 5-25 05-25 Subcutaneo ity o f human 08:00: 07:05 , ONCE, [place] (HUMULIN R) 00 :00 1 dose, Medic al injection [address] [facility] Branch Units 08/22/19 at 0300, Routine FENTanyl PF 2019-0 2020- No 50ug 50 mcg, Un [place] (SUBLIMAZE 5-25 05-25 Slow IV ity o f (PF)) 07:30: 07:05 [place], [place] injection 00 :00 ONCE, 1 Medical 50 mcg dose, [facility] Branch 08/22/19 at 0230, Routine FENTanyl PF 2019-0 2020- No 75ug 75 mcg, Un [place] (SUBLIMAZE 5-25 05-25 Slow IV ity o f (PF)) 06:15: 05:20 [place], [place] injection 00 :00 ONCE, 1 Medical 75 mcg dose, [facility] Branch 08/22/19 at 0115, Routine proMETHazin [...] mouth ity of 60 mg 05:29: daily. [place] tablet Medical Branch carvediloL 2020-0 Yes 12.5mg Take 12.5 Univers 12.5 mg 5-25 mg by ity of tablet 05:29: mouth 2 [place] [address] (two) Medical times Branch daily with meals. propranolol 2020-0 Yes 60mg Take 60 mg Univers (INDERAL) 5-25 by mouth ity of 60 mg 05:29: daily. [place] tablet 28 Medical Branch carvediloL 2020-0 Yes 12.5mg Take 12.5 Univers 12.5 mg 5-25 mg by ity of tablet 05:29: mouth 2 [place] [address] (two) Medical times [place] daily with meals. propranolol 2020-0 Yes 60mg Take 60 mg Univers (INDERAL) 5-25 by mouth ity of 60 mg 05:29: daily. [facility] 28 [facility] carvediloL 2020-0 Yes 12.5mg Take 12.5 Univers 12.5 mg 5-25 mg by ity of tablet 05:29: mouth 2 [place] [address] ([facility]) [facility] times [place] daily with meals. propranolol 2020-0 Yes 60mg Take 60 mg Univers (INDERAL) 5-25 by mouth ity of 60 mg 05:29: daily. [facility] 28 [facility] carvediloL 2020-0 Yes 12.5mg Take 12.5 Univers 12.5 mg 5-25 mg by ity of tablet 05:29: mouth 2 [place] [address] ([facility]) [facility] daily with meals. propranolol 2020-0 Yes 60mg Take 60 mg Univers (INDERAL) 5-25 by mouth ity of 60 mg 05:29: daily. [facility] 28 [facility] carvediloL 2020-0 Yes 12.5mg Take 12.5 Univers 12.5 mg 5-25 mg by ity of tablet 05:29: mouth 2 [place] [address] ([facility]) [facility] times [place] daily with meals. propranolol 2020-0 Yes 60mg Take 60 mg Univers (INDERAL) 5-25 by mouth ity of 60 mg 05:29: daily. [facility] 28 [facility] carvediloL 2020-0 Yes 12.5mg Take 12.5 Univers 12.5 mg 5-25 mg by ity of tablet 05:29: mouth 2 [place] [address] ([facility]) [facility] daily with meals. ARIPiprazol 2020-0 Yes 2mg Take 2 mg U nivers e (ABILIFY) 5-25 by mouth ity of 2 mg tablet 05:28: daily. [address] ARIPiprazol 2020-0 Yes 2mg Take 2 mg U nivers e (ABILIFY) 5-25 by mouth ity of 2 mg tablet 05:28: daily. [address] ARIPiprazol 2020-0 Yes 2mg Take 2 mg U nivers e (ABILIFY) 5-25 by mouth ity of 2 mg tablet 05:28: daily. [address] ARIPiprazol 2020-0 Yes 2mg Take 2 mg U nivers e (ABILIFY) 5-25 by mouth ity of 2 mg tablet 05:28: daily. [address] ARIPiprazol 2020-0 Yes 2mg Take 2 mg U nivers e (ABILIFY) 5-25 by mouth ity of 2 mg tablet 05:28: daily. [address] ARIPiprazol 2020-0 Yes 2mg Take 2 mg U nivers e (ABILIFY) 5-25 by mouth ity of 2 mg tablet 05:28: daily. [address] propranolol 2020-0 Yes 60mg Take 60 mg Univers (INDERAL) 5-25 by mouth ity of 60 mg 00:29: daily. [address] carvediloL 2020-0 Yes 12.5mg Take 12.5 Univers 12.5 mg 5-25 mg by ity of tablet 00:29: mouth 2 [place] [address] ([facility]) Medical times [place] daily with meals. propranolol 2020-0 Yes 60mg Take 60 mg Univers (INDERAL) 5-25 by mouth ity of 60 mg 00:29: daily. [address] carvediloL 2020-0 Yes 12.5mg Take 12.5 Univers 12.5 mg 5-25 mg by ity of tablet 00:29: mouth 2 [place] [address] ([facility]) Medical times [place] daily with meals. ARIPiprazol 2020-0 Yes 2mg Take 2 mg U nivers e (ABILIFY) 5-25 by mouth ity of 2 mg tablet 00:28: daily. [address] ARIPiprazol 2020-0 Yes 2mg Take 2 mg U nivers e (ABILIFY) 5-25 by mouth ity of 2 mg tablet 00:28: daily. [address] dicyclomine 2020-0 Yes [id number] 20mg Take 1 Univers 20 mg 5-25 tablet by ity of tablet 00:00: mouth [place] 00 every 6 Medical (six) Branch hours as needed for Abdominal pain. proMETHazin 2020-0 Yes [id number] 25mg Take 1 U nivers e 25 mg 5-25 tablet by ity of tablet 00:00: mouth [place] 00 every 6 Medical (six) Branch hours as needed for Nausea and Vomiting (N/V). dicyclomine 2020-0 Yes [id number] 20mg Take 1 Univers 20 mg 5-25 tablet by ity of tablet 00:00: mouth [place] 00 every 6 Medical (six) Branch hours as needed for Abdominal pain. dicyclomine 2020-0 Yes [id number] 20mg Take 1 Univers 20 mg 5-25 tablet by ity of tablet 00:00: mouth [place] 00 every 6 Medical (six) Branch hours as needed for Abdominal pain. dicyclomine 2020-0 Yes [id number] 20mg Take 1 Univers 20 mg 5-25 tablet by ity of tablet 00:00: mouth [place] 00 every 6 Medical (six) Branch hours as needed for Abdominal pain. dicyclomine 2020-0 Yes [id number] 20mg Take 1 Univers 20 mg 5-25 tablet by ity of tablet 00:00: mouth [place] 00 every 6 Medical (six) Branch hours as needed for Abdominal pain. dicyclomine 2020-0 Yes [id number] 20mg Take 1 Univers 20 mg 5-25 tablet by ity of tablet 00:00: mouth [place] 00 every 6 Medical (six) Branch hours as needed for Abdominal pain. dicyclomine 2020-0 Yes [id number] 20mg Take 1 Univers 20 mg 5-25 tablet by ity of tablet 00:00: mouth [place] 00 every 6 Medical (six) Branch hours as needed for Abdominal pain. dicyclomine 2020-0 Yes [id number] 20mg Take 1 Univers 20 mg 5-25 tablet by ity of tablet 00:00: mouth [place] 00 every 6 Medical (six) Branch hours as needed for Abdominal pain. dicyclomine 2020-0 Yes [id number] 20mg Take 1 Univers 20 mg 5-25 tablet by ity of tablet 00:00: mouth [place] 00 every 6 Medical (six) Branch hours as needed for Abdominal pain. dicyclomine 2020-0 Yes [id number] 20mg Take 1 Univers 20 mg 5-25 tablet by ity of tablet 00:00: mouth [place] 00 every 6 Medical (six) Branch hours as needed for Abdominal pain. dicyclomine 2020-0 Yes [id number] 20mg Take 1 Univers 20 mg 5-25 tablet by ity of tablet 00:00: mouth [place] 00 every 6 Medical (six) Branch hours as needed for Abdominal pain. dicyclomine 2020-0 Yes [id number] 20mg Take 1 [facility] 20 mg 5-25 tablet by ity of tablet 00:00: mouth [place] 00 every 6 Medical (six) Branch hours as needed for Abdominal pain. dicyclomine 2020-0 Yes [id number] 20mg Take 1 [facility] 20 mg 5-25 tablet by ity of tablet 00:00: mouth [place] 00 every 6 Medical (six) Branch hours as needed for Abdominal pain. dicyclomine 2020-0 Yes [id number] 20mg Take 1 [facility] 20 mg 5-25 tablet by ity of tablet 00:00: mouth [place] 00 every 6 Medical (six) Branch hours as needed for Abdominal pain. dicyclomine 2020-0 Yes [id number] 20mg Take 1 [facility] 20 mg 5-25 tablet by ity of tablet 00:00: mouth [place] 00 every 6 Medical (six) Branch hours as needed for Abdominal pain. dicyclomine 2020-0 Yes [id number] 20mg Take 1 [facility] 20 mg 5-25 tablet by ity of tablet 00:00: mouth [place] 00 every 6 Medical (six) Branch hours as needed for Abdominal pain. proMETHazin 2019-0 2020- No [id number] 25mg Take 1 [facility] e 25 mg 5-25 02-20 tablet by ity of tablet 00:00: 00:00 mouth [place] 00 :00 every 6 Medical (six) Branch hours as needed for Nausea and Vomiting (N/V). ARIPiprazol 2020-0 Yes 2mg Take 2 mg U nivers e (ABILIFY) 5-07 by mouth ity of 2 mg tablet 19:53: daily. [place] [address] Medical Branch tiZANidine 2020-0 Yes 4mg Take 4 mg [facility] (ZANAFLEX) 5-07 by mouth 2 ity of 4 mg 19:53: (two) [place] capsule 38 times Medical daily. Branch citalopram 2020-0 Yes 40mg Take 40 mg U nivers (CELEXA) 40 5-07 by mouth ity of mg tablet 19:53: daily. [place] [address] Medical Branch clonazePAM 2020-[address] [facility] ers (KLONOPIN) 5-07 mouth 2 ity of 0.5 mg 19:53: (two) [place] disintegrat 38 times Medical ing tablet daily as Branc h needed for Anxiety. ZN 2020-0 Yes Take by [facility] GLUC/PUMP 5-07 mouth. ity of SEED 19:53: [place] OIL/SAW PAL 38 Medical (PROPALMEX Branch ORAL) propranolol 2020-0 Yes 60mg Take 60 mg [facility] (INDERAL) 5-07 by mouth ity of 60 mg 19:53: daily. [place] tablet Medical Branch butorphanol 2020-0 Yes 1{spray Use 1 [facility] [place] (STADOL) 10 5-07 } [place] in ity of mg/mL nasal 19:53: each [place] spray 38 nostril as Medical needed for Branch Pain. METFORMIN 2020-0 Yes 500mg Take 500 [facility] vers HCL 5-07 mg by ity of (METFORMIN 19:53: [place] ORAL[place] 38 (two) Medical times Branch daily. zolpidem 2020-0 Yes 12.5mg Take 12.5 [facility] [place] 12.5 mg CR 5-07 mg by ity of tablet 19:53: mouth at [place] [address] bedtime as Medical needed for Branch Sleep. ARIPiprazol 2020-0 Yes 2mg Take 2 mg U nivers e (ABILIFY) 5-07 by mouth ity of 2 mg tablet 19:53: daily. [facility] s [address] [place] [address] Branch tiZANidine 2020-0 Yes 4mg Take 4 mg [facility] [place] (ZANAFLEX) 5-07 by mouth 2 ity of 4 mg 19:53: (two) [place] capsule 38 times Medical daily. Branch citalopram 2020-0 Yes 40mg Take 40 mg U nivers (CELEXA) 40 5-07 by mouth ity of mg tablet 19:53: daily. [address] Branch clonazePAM 2020-[address] [facility] ers (KLONOPIN) 5-07 mouth 2 ity of 0.5 mg 19:53: (two) [place] disintegrat 38 times Medical ing tablet daily as Branc h needed for Anxiety. ZN 2020-0 Yes Take by [facility] GLUC/PUMP 5-07 mouth. ity of SEED 19:53: [place] OIL/SAW PAL 38 Medical (PROPALMEX Branch ORAL) propranolol 2020-0 Yes 60mg Take 60 mg [facility] (INDERAL) 5-07 by mouth ity of 60 mg 19:53: daily. [place] tablet Medical Branch butorphanol 2020-0 Yes 1{spray Use 1 [facility] [place] (STADOL) 10 5-07 } [place] in ity of mg/mL nasal 19:53: each [place] spray 38 nostril as Medical needed for Branch Pain. METFORMIN 2020-0 Yes 500mg Take 500 [facility] vers HCL 5-07 mg by ity of (METFORMIN 19:53: mouth [place] ORAL[place] 38 (two) Medical times Branch daily. zolpidem 2020-0 Yes 12.5mg Take 12.5 [place] 12.5 mg CR 5-07 mg by ity of tablet 19:53: mouth at [place] [address] bedtime as Medical needed for Branch Sleep. ARIPiprazol 2020-0 Yes 2mg Take 2 mg U nivers e (ABILIFY) 5-07 by mouth ity of 2 mg tablet 19:53: daily. [facility] tiZANidine 2020-0 Yes 4mg Take 4 mg [place] (ZANAFLEX) 5-07 by mouth 2 ity of 4 mg 19:53: (two) [place] capsule 38 times Medical daily. Branch citalopram 2020-0 Yes 40mg Take 40 mg U nivers (CELEXA) 40 5-07 by mouth ity of mg tablet 19:53: daily. [place] [address] Medical Branch clonazePAM 2020-[address] [facility] ers (KLONOPIN) 5-07 mouth 2 ity of 0.5 mg 19:53: (two) [place] disintegrat 38 times Medical ing tablet daily as Branc h needed for Anxiety. ZN 2020-0 Yes Take by [facility] GLUC/PUMP 5-07 mouth. ity of SEED 19:53: [place] OIL/SAW PAL 38 Medical (PROPALMEX Branch ORAL) propranolol 2020-0 Yes 60mg Take 60 mg [facility] (INDERAL) 5-07 by mouth ity of 60 mg 19:53: daily. [place] tablet 38 Medical Branch butorphanol 2020-0 Yes 1{spray Use 1 [facility] [place] (STADOL) 10 5-07 } [place] in ity of mg/mL nasal 19:53: each [place] spray 38 nostril as Medical needed for Branch Pain. METFORMIN 2020-0 Yes 500mg Take 500 [facility] vers HCL 5-07 mg by ity of (METFORMIN 19:53: mouth [place] ORAL[place] 38 (two) Medical times Branch daily. zolpidem 2020-0 Yes 12.5mg Take 12.5 [place] 12.5 mg CR 5-07 mg by ity of tablet 19:53: mouth at [place] [address] bedtime as Medical needed for Branch Sleep. ARIPiprazol 2020-0 Yes 2mg Take 2 mg U nivers e (ABILIFY) 5-07 by mouth ity of 2 mg tablet 19:53: daily. [address] Branch tiZANidine 2020-0 Yes 4mg Take 4 mg [facility] [place] (ZANAFLEX) 5-07 by mouth 2 ity of 4 mg 19:53: (two) [place] capsule 38 times Medical daily. Branch citalopram 2020-0 Yes 40mg Take 40 mg U nivers (CELEXA) 40 5-07 by mouth ity of mg tablet 19:53: daily. [address] Branch clonazePAM 2020-[address] [facility] ers (KLONOPIN) 5-07 mouth 2 ity of 0.5 mg 19:53: (two) [place] disintegrat 38 times Medical ing tablet daily as Branc h needed for Anxiety. ZN 2020-0 Yes Take by [facility] GLUC/PUMP 5-07 mouth. ity of SEED 19:53: [place] OIL/SAW PAL 38 Medical (PROPALMEX Branch ORAL) propranolol 2020-0 Yes 60mg Take 60 mg [facility] (INDERAL) 5-07 by mouth ity of 60 mg 19:53: daily. [place] tablet Medical Branch butorphanol 2020-0 Yes 1{spray Use 1 [facility] [place] (STADOL) 10 5-07 } [place] in ity of mg/mL nasal 19:53: each [place] spray 38 nostril as Medical needed for Branch Pain. METFORMIN 2020-0 Yes 500mg Take 500 [facility] vers HCL 5-07 mg by ity of (METFORMIN 19:53: mouth 2 [facility] ORAL) 38 (two) Medical times Branch daily. zolpidem 2020-0 Yes 12.5mg Take 12.5 [facility] [place] 12.5 mg CR 5-07 mg by ity of tablet 19:53: mouth at [place] [address] bedtime as Medical needed for Branch Sleep. ARIPiprazol 2020-0 Yes 2mg Take 2 mg U nivers e (ABILIFY) 5-07 by mouth ity of 2 mg tablet 19:53: daily. [address] Branch tiZANidine 2020-0 Yes 4mg Take 4 mg [facility] [place] (ZANAFLEX) 5-07 by mouth 2 ity of 4 mg 19:53: (two) [place] capsule 38 times Medical daily. Branch citalopram 2020-0 Yes 40mg Take 40 mg U nivers (CELEXA) 40 5-07 by mouth ity of mg tablet 19:53: daily. [place] [address] Medical Branch clonazePAM 2020-[address] [facility] ers (KLONOPIN) 5-07 mouth 2 ity of 0.5 mg 19:53: (two) [place] disintegrat 38 times Medical ing tablet daily as Branc h needed for Anxiety. ZN 2020-0 Yes Take by [facility] GLUC/PUMP 5-07 mouth. ity of SEED 19:53: [place] OIL/SAW PAL 38 Medical (PROPALMEX Branch ORAL) propranolol 2020-0 Yes 60mg Take 60 mg [facility] (INDERAL) 5-07 by mouth ity of 60 mg 19:53: daily. [place] tablet Medical Branch butorphanol 2020-0 Yes 1{spray Use 1 [facility] [place] (STADOL) 10 5-07 } [place] in ity of mg/mL nasal 19:53: each [place] spray 38 nostril as Medical needed for Branch Pain. METFORMIN 2020-0 Yes 500mg Take 500 [facility] vers HCL 5-07 mg by ity of (METFORMIN 19:53: mouth [place] ORAL[place] 38 (two) Medical times Branch daily. zolpidem 2020-0 Yes 12.5mg Take 12.5 [facility] [place] 12.5 mg CR 5-07 mg by ity of tablet 19:53: mouth at [place] [address] bedtime as Medical needed for Branch Sleep. ARIPiprazol 2020-0 Yes 2mg Take 2 mg U nivers e (ABILIFY) 5-07 by mouth ity of 2 mg tablet 19:53: daily. [facility] tiZANidine 2020-0 Yes 4mg Take 4 mg [facility] [place] (ZANAFLEX) 5-07 by mouth 2 ity of 4 mg 19:53: (two) [place] capsule 38 times Medical daily. Branch citalopram 2020-0 Yes 40mg Take 40 mg U nivers (CELEXA) 40 5-07 by mouth ity of mg tablet 19:53: daily. [place] [address] Medical Branch clonazePAM 2020-[address] [facility] ers (KLONOPIN) 5-07 mouth 2 ity of 0.5 mg 19:53: (two) [place] disintegrat 38 times Medical ing tablet daily as Branc h needed for Anxiety. ZN 2020-0 Yes Take by [facility] GLUC/PUMP 5-07 mouth. ity of SEED 19:53: [place] OIL/SAW PAL 38 Medical (PROPALMEX Branch ORAL) propranolol 2020-0 Yes 60mg Take 60 mg [facility] (INDERAL) 5-07 by mouth ity of 60 mg 19:53: daily. [place] tablet 38 Medical Branch butorphanol 2020-0 Yes 1{spray Use 1 [facility] [place] (STADOL) 10 5-07 } [place] in ity of mg/mL nasal 19:53: each [place] spray 38 nostril as Medical needed for Branch Pain. METFORMIN 2020-0 Yes 500mg Take 500 [facility] vers HCL 5-07 mg by ity of (METFORMIN 19:53: mouth [place] ORAL[place] 38 (two) Medical times Branch daily. zolpidem 2020-0 Yes 12.5mg Take 12.5 [place] 12.5 mg CR 5-07 mg by ity of tablet 19:53: mouth at [place] [address] bedtime as Medical needed for Branch Sleep. ARIPiprazol 2020-0 Yes 2mg Take 2 mg U nivers e (ABILIFY) 5-07 by mouth ity of 2 mg tablet 19:53: daily. [facility] tiZANidine 2020-0 Yes 4mg Take 4 mg [place] (ZANAFLEX) 5-07 by mouth 2 ity of 4 mg 19:53: (two) [place] capsule 38 times Medical daily. Branch citalopram 2020-0 Yes 40mg Take 40 mg U nivers (CELEXA) 40 5-07 by mouth ity of mg tablet 19:53: daily. [place] [address] Medical Branch clonazePAM 2020-[address] [facility] ers (KLONOPIN) 5-07 mouth 2 ity of 0.5 mg 19:53: (two) [place] disintegrat 38 times Medical ing tablet daily as Branc h needed for Anxiety. ZN 2020-0 Yes Take by [facility] GLUC/PUMP 5-07 mouth. ity of SEED 19:53: [place] OIL/SAW PAL 38 Medical (PROPALMEX Branch ORAL) propranolol 2020-0 Yes 60mg Take 60 mg [facility] (INDERAL) 5-07 by mouth ity of 60 mg 19:53: daily. [place] tablet Medical Branch butorphanol 2020-0 Yes 1{spray Use 1 [facility] [place] (STADOL) 10 5-07 } [place] in ity of mg/mL nasal 19:53: each [place] spray 38 nostril as Medical needed for Branch Pain. METFORMIN 2020-0 Yes 500mg Take 500 [facility] vers HCL 5-07 mg by ity of (METFORMIN 19:53: mouth [place] ORAL[place] 38 (two) Medical times Branch daily. zolpidem 2020-0 Yes 12.5mg Take 12.5 [place] 12.5 mg CR 5-07 mg by ity of tablet 19:53: mouth at [place] 38 bedtime as Medical needed for Branch Sleep. tiZANidine 2020-0 Yes 4mg Take 4 mg [place] (ZANAFLEX) 5-07 by mouth 2 ity of 4 mg 19:53: (two) [place] capsule 38 times Medical daily. Branch citalopram 2020-0 Yes 40mg Take 40 mg U nivers (CELEXA) 40 5-07 by mouth ity of mg tablet 19:53: daily. [place] [address] Medical Branch clonazePAM 2020-[address] [facility] ers (KLONOPIN) 5-07 mouth 2 ity of 0.5 mg 19:53: (two) [place] disintegrat 38 times Medical ing tablet daily as Branc h needed for Anxiety. ZN 2020-0 Yes Take by [facility] GLUC/PUMP 5-07 mouth. ity of SEED 19:53: [place] OIL/SAW PAL 38 Medical (PROPALMEX Branch ORAL) butorphanol 2020-0 Yes 1{spray Use 1 [facility] [place] (STADOL) 10 5-07 } [place] in ity of mg/mL nasal 19:53: each [place] spray 38 nostril as Medical needed for Branch Pain. METFORMIN 2020-0 Yes 500mg Take 500 [facility] vers HCL 5-07 mg by ity of (METFORMIN 19:53: mouth [place] ORAL[place] 38 (two) Medical times Branch daily. zolpidem 2020-0 Yes 12.5mg Take 12.5 [place] 12.5 mg CR 5-07 mg by ity of tablet 19:53: mouth at [place] 38 bedtime as Medical needed for Branch Sleep. tiZANidine 2020-0 Yes 4mg Take 4 mg [facility] [place] (ZANAFLEX) 5-07 by mouth 2 ity of 4 mg 19:53: (two) [place] capsule 38 times Medical daily. Branch citalopram 2020-0 Yes 40mg Take 40 mg U nivers (CELEXA) 40 5-07 by mouth ity of mg tablet 19:53: daily. [place] [address] Medical Branch clonazePAM 2020-[address] [facility] ers (KLONOPIN) 5-07 mouth 2 ity of 0.5 mg 19:53: (two) [place] disintegrat 38 times Medical ing tablet daily as Branc h needed for Anxiety. ZN 2020-0 Yes Take by [facility] GLUC/PUMP 5-07 mouth. ity of SEED 19:53: [place] OIL/SAW PAL 38 Medical (PROPALMEX Branch ORAL) butorphanol 2020-0 Yes 1{spray Use 1 [facility] [place] (STADOL) 10 5-07 } [place] in ity of mg/mL nasal 19:53: each [place] spray 38 nostril as Medical needed for Branch Pain. METFORMIN 2020-0 Yes 500mg Take 500 [facility] vers HCL 5-07 mg by ity of (METFORMIN 19:53: mouth [place] ORAL[place] 38 (two) Medical times Branch daily. zolpidem 2020-0 Yes 12.5mg Take 12.5 [place] 12.5 mg CR 5-07 mg by ity of tablet 19:53: mouth at [place] [address] bedtime as Medical needed for Branch Sleep. tiZANidine 2020-0 Yes 4mg Take 4 mg [facility] [place] (ZANAFLEX) 5-07 by mouth 2 ity of 4 mg 19:53: (two) [place] capsule 38 times Medical daily. Branch citalopram 2020-0 Yes 40mg Take 40 mg U nivers (CELEXA) 40 5-07 by mouth ity of mg tablet 19:53: daily. [place] [address] Medical Branch clonazePAM 2020-[address] [facility] ers (KLONOPIN) 5-07 mouth 2 ity of 0.5 mg 19:53: (two) [place] disintegrat 38 times Medical ing tablet daily as Branc h needed for Anxiety. ZN 2020-0 Yes Take by [facility] GLUC/PUMP 5-07 mouth. ity of SEED 19:53: [place] OIL/SAW PAL 38 Medical (PROPALMEX Branch ORAL) butorphanol 2020-0 Yes 1{spray Use 1 [facility] [place] (STADOL) 10 5-07 } [place] in ity of mg/mL nasal 19:53: each [...] by ity of tablet 19:53: mouth at [place] 38 bedtime as Medical needed for Branch Sleep. tiZANidine 2020-0 Yes 4mg Take 4 mg [place] (ZANAFLEX) 5-07 by mouth 2 ity of 4 mg 19:53: (two) [place] capsule 38 times Medical daily. Branch citalopram 2020-0 Yes 40mg Take 40 mg U nivers (CELEXA) 40 5-07 by mouth ity of mg tablet 19:53: daily. [place] [address] Medical Branch clonazePAM 2020-[address] [facility] ers (KLONOPIN) 5-07 mouth 2 ity of 0.5 mg 19:53: (two) [place] disintegrat 38 times Medical ing tablet daily as Branc h needed for Anxiety. ZN 2020-0 Yes Take by [facility] GLUC/PUMP 5-07 mouth. ity of SEED 19:53: [place] OIL/SAW PAL 38 Medical (PROPALMEX Branch ORAL) butorphanol 2020-0 Yes 1{spray Use 1 [facility] [place] (STADOL) 10 5-07 } [place] in ity of mg/mL nasal 19:53: each [place] spray 38 nostril as Medical needed for Branch Pain. METFORMIN 2020-0 Yes 500mg Take 500 [facility] vers HCL 5-07 mg by ity of (METFORMIN 19:53: mouth 2 [place] ORAL) 38 (two) Medical times Branch daily. zolpidem 2020-0 Yes 12.5mg Take 12.5 [place] 12.5 mg CR 5-07 mg by ity of tablet 19:53: mouth at [place] 38 bedtime as Medical needed for Branch Sleep. tiZANidine 2020-0 Yes 4mg Take 4 mg [facility] [place] (ZANAFLEX) 5-07 by mouth 2 ity of 4 mg 19:53: (two) [place] capsule 38 times Medical daily. Branch citalopram 2020-0 Yes 40mg Take 40 mg U nivers (CELEXA) 40 5-07 by mouth ity of mg tablet 19:53: daily. [place] [address] Medical Branch clonazePAM 2020-[address] [facility] ers (KLONOPIN) 5-07 mouth 2 ity of 0.5 mg 19:53: (two) [place] disintegrat 38 times Medical ing tablet daily as Branc h needed for Anxiety. ZN 2020-0 Yes Take by [facility] GLUC/PUMP 5-07 mouth. ity of SEED 19:53: [place] OIL/SAW PAL 38 Medical (PROPALMEX Branch ORAL) butorphanol 2020-0 Yes 1{spray Use 1 [facility] [place] (STADOL) 10 5-07 } [place] in ity of mg/mL nasal 19:53: each [...] mouth ity of mg tablet 19:53: daily. [place] [address] Medical Branch clonazePAM 2020-[address] [facility] ers (KLONOPIN) 5-07 mouth 2 ity of 0.5 mg 19:53: (two) [place] disintegrat 38 times Medical ing tablet daily as Branc h needed for Anxiety. ZN 2020-0 Yes Take by [facility] GLUC/PUMP 5-07 mouth. ity of SEED 19:53: [place] OIL/SAW PAL 38 Medical (PROPALMEX Branch ORAL) butorphanol 2020-0 Yes 1{spray Use 1 [facility] [place] (STADOL) 10 5-07 } [place] in ity of mg/mL nasal 19:53: each [place] spray 38 nostril as Medical needed for Branch Pain. METFORMIN 2020-0 Yes 500mg Take 500 [facility] vers HCL 5-07 mg by ity of (METFORMIN 19:53: mouth 2 [place] ORAL) 38 (two) Medical times Branch daily. zolpidem 2020-0 Yes 12.5mg Take 12.5 [facility] [place] 12.5 mg CR 5-07 mg by ity of tablet 19:53: mouth at [place] 38 bedtime as Medical needed for Branch Sleep. tiZANidine 2020-0 Yes 4mg Take 4 mg [facility] [place] (ZANAFLEX) 5-07 by mouth 2 ity of 4 mg 14:53: (two) [place] capsule 38 times Medical daily. Branch citalopram 2020-0 Yes 40mg Take 40 mg U nivers (CELEXA) 40 5-07 by mouth ity of mg tablet 14:53: daily. [place] [address] Medical Branch clonazePAM 2020-[address] [facility] ers (KLONOPIN) 5-07 mouth 2 ity of 0.5 mg 14:53: (two) [place] disintegrat 38 times Medical ing tablet daily as Branc h needed for Anxiety. ZN 2020-0 Yes Take by [facility] GLUC/PUMP 5-07 mouth. ity of SEED 14:53: [place] OIL/SAW PAL 38 Medical (PROPALMEX Branch ORAL) butorphanol 2020-0 Yes 1{spray Use 1 [facility] [place] (STADOL) 10 5-07 } [place] in ity of mg/mL nasal 14:53: each [place] spray 38 nostril as Medical needed for Branch Pain. METFORMIN 2020-0 Yes 500mg Take 500 [facility] vers HCL 5-07 mg by ity of (METFORMIN 14:53: mouth 2 [place] ORAL) 38 (two) Medical times Branch daily. zolpidem 2020-0 Yes 12.5mg Take 12.5 [place] 12.5 mg CR 5-07 mg by ity of tablet 14:53: mouth at [place] [address] bedtime as Medical needed for Branch Sleep. tiZANidine 2020-0 Yes 4mg Take 4 mg [facility] [place] (ZANAFLEX) 5-07 by mouth 2 ity of 4 mg 14:53: (two) [place] capsule 38 times Medical daily. Branch citalopram 2020-0 Yes 40mg Take 40 mg U nivers (CELEXA) 40 5-07 by mouth ity of mg tablet 14:53: daily. [place] [address] Medical Branch clonazePAM 2020-0 Yes Take by [facility] ers (KLONOPIN) 5-07 mouth 2 ity of 0.5 mg 14:53: (two) [place] disintegrat 38 times Medical ing tablet daily as Branc h needed for Anxiety. ZN 2020-0 Yes Take by [facility] GLUC/PUMP 5-07 mouth. ity of SEED 14:53: [place] OIL/SAW PAL 38 Medical (PROPALMEX Branch ORAL) butorphanol 2020-0 Yes 1{spray Use 1 [facility] [place] (STADOL) 10 5-07 } [place] in ity of mg/mL nasal 14:53: each [place] spray 38 nostril as Medical needed for [...] needed for Branch Sleep. acetaminoph 2020-0 Yes [id number] 650mg Take 1 [facility] en 650 mg 5-07 tablet by ity o f CR tablet 00:00: mouth [place] 00 every 8 Medical (eight) Branch hours as needed for Pain or Fever. bromphenira 2020-0 Yes [id number] 10mL Take 10 mL [facility] mine-pseudo 5-07 by mouth 4 it y of ephedrine-D 00:00: (four) [place] M (BROMFED 00 times Medical DM) 2-30-10 daily as Bran ch mg/5 mL needed for syrup Cough. Bismuth 2020-0 Yes [id number] 262mg Take 1 [facility] [place] Subsalicyla 5-07 tablet by ity of te 00:00: mouth 4 [place] (PEPTO-BISM 00 (four) Medica l OL) 262 mg times Branch tablet daily as needed (diarrhea) . proMETHazin 2020-0 Yes [id number] 25mg Take 1 [facility] e 25 mg 5-07 tablet by ity of tablet 00:00: mouth [place] 00 every 6 Medical (six) Branch hours as needed for Nausea and Vomiting (N/V). acetaminoph 2020-0 Yes [id number] 650mg Take 1 [facility] en 650 mg 5-07 tablet by ity o f CR tablet 00:00: mouth [place] 00 every 8 Medical (eight) Branch hours as needed for Pain or Fever. bromphenira 2020-0 Yes [id number] 10mL Take 10 mL [facility] mine-pseudo 5-07 by mouth 4 it y of ephedrine-D 00:00: (four) [place] (BROMFED 00 times Medical DM) 2-30-10 daily as Bran ch mg/5 mL needed for syrup Cough. Bismuth 2020-0 Yes [id number] 262mg Take 1 [facility] [place] Subsalicyla 5-07 tablet by ity of te 00:00: mouth 4 [place] (PEPTO-BISM 00 (four) Medica l OL) 262 mg times Branch tablet daily as needed (diarrhea) . proMETHazin 2020-0 Yes [id number] 25mg Take 1 [facility] e 25 mg 5-07 tablet by ity of tablet 00:00: mouth [place] 00 every 6 Medical (six) Branch hours as needed for Nausea and Vomiting (N/V). acetaminoph 2020-0 Yes [id number] 650mg Take 1 [facility] en 650 mg 5-07 tablet by ity o f CR tablet 00:00: mouth [place] 00 every 8 Medical (eight) Branch hours as needed for Pain or Fever. bromphenira 2020-0 Yes [id number] 10mL Take 10 mL [facility] mine-pseudo 5-07 by mouth 4 it y of ephedrine-D 00:00: (four) [place] M (BROMFED 00 times Medical DM) 2-30-10 daily as Bran ch mg/5 mL needed for syrup Cough. Bismuth 2020-0 Yes [id number] 262mg Take 1 [facility] [place] Subsalicyla 5-07 tablet by ity of te 00:00: mouth 4 [place] (PEPTO-BISM 00 (four) Medica l OL) 262 mg times Branch tablet daily as needed (diarrhea) . proMETHazin 2020-0 Yes [id number] 25mg Take 1 [facility] e 25 mg 5-07 tablet by ity of tablet 00:00: mouth [place] 00 every 6 Medical (six) Branch hours as needed for Nausea and Vomiting (N/V). acetaminoph 2020-0 Yes [id number] 650mg Take 1 [facility] en 650 mg 5-07 tablet by ity o f CR tablet 00:00: mouth [place] 00 every 8 Medical (eight) Branch hours as needed for Pain or Fever. bromphenira 2020-0 Yes [id number] 10mL Take 10 mL [facility] mine-pseudo 5-07 by mouth 4 it y of ephedrine-D 00:00: (four) [place] (BROMFED 00 times Medical DM) 2-30-10 daily as Bran ch mg/5 mL needed for syrup Cough. Bismuth 2020-0 Yes [id number] 262mg Take 1 [facility] [place] Subsalicyla 5-07 tablet by ity of te 00:00: mouth 4 [place] (PEPTO-BISM 00 (four) Medica l OL) 262 mg times Branch tablet daily as needed (diarrhea) . proMETHazin 2020-0 Yes [id number] 25mg Take 1 [facility] e 25 mg 5-07 tablet by ity of tablet 00:00: mouth [place] 00 every 6 Medical (six) Branch hours as needed for Nausea and Vomiting (N/V). acetaminoph 2020-0 Yes [id number] 650mg Take 1 [facility] en 650 mg 5-07 tablet by ity o f CR tablet 00:00: mouth [place] 00 every 8 Medical (eight) Branch hours as needed for Pain or Fever. bromphenira 2020-0 Yes [id number] 10mL Take 10 mL [facility] mine-pseudo 5-07 by mouth 4 it y of ephedrine-D 00:00: (four) [place] M (BROMFED 00 times Medical DM) 2-30-10 daily as Bran ch mg/5 mL needed for syrup Cough. Bismuth 2020-0 Yes [id number] 262mg Take 1 [facility] [place] Subsalicyla 5-07 tablet by ity of te 00:00: mouth 4 [place] (PEPTO-BISM 00 (four) Medica l OL) 262 mg times Branch tablet daily as needed (diarrhea) . proMETHazin 2020-0 Yes [id number] 25mg Take 1 [facility] e 25 mg 5-07 tablet by ity of tablet 00:00: mouth [place] 00 every 6 Medical (six) Branch hours as needed for Nausea and Vomiting (N/V). acetaminoph 2020-0 Yes [id number] 650mg Take 1 [facility] en 650 mg 5-07 tablet by ity o f CR tablet 00:00: mouth [place] 00 every 8 Medical (eight) Branch hours as needed for Pain or Fever. bromphenira 2020-0 Yes [id number] 10mL Take 10 mL [facility] mine-pseudo 5-07 by mouth 4 it y of ephedrine-D 00:00: (four) [place] M (BROMFED 00 times Medical DM) 2-30-10 daily as Bran ch mg/5 mL needed for syrup Cough. Bismuth 2020-0 Yes [id number] 262mg Take 1 [facility] [place] Subsalicyla 5-07 tablet by ity of te 00:00: mouth 4 [place] (PEPTO-BISM 00 (four) Medica l OL) 262 mg times Branch tablet daily as needed (diarrhea) . proMETHazin 2020-0 Yes [id number] 25mg Take 1 [facility] e 25 mg 5-07 tablet by ity of tablet 00:00: mouth [place] 00 every 6 Medical (six) Branch hours as needed for Nausea and Vomiting (N/V). acetaminoph 2020-0 Yes [id number] 650mg Take 1 [facility] en 650 mg 5-07 tablet by ity o f CR tablet 00:00: mouth [place] 00 every 8 Medical (eight) Branch hours as needed for Pain or Fever. bromphenira 2020-0 Yes [id number] 10mL Take 10 mL [facility] mine-pseudo 5-07 by mouth 4 it y of ephedrine-D 00:00: (four) [place] (BROMFED 00 times Medical DM) 2-30-10 daily as Bran ch mg/5 mL needed for syrup Cough. Bismuth 2020-0 Yes [id number] 262mg Take 1 [facility] Subsalicyla 5-07 tablet by ity of te 00:00: mouth 4 [place] (PEPTO-BISM 00 (four) Medica l OL) 262 mg times Branch tablet daily as needed (diarrhea) . proMETHazin 2020-0 Yes [id number] 25mg Take 1 Univers e 25 mg 5-07 tablet by ity of tablet 00:00: mouth [place] 00 every 6 Medical (six) Branch hours as needed for Nausea and Vomiting (N/V). acetaminoph 2020-0 Yes [id number] 650mg Take 1 Univers en 650 mg 5-07 tablet by ity o f CR tablet 00:00: mouth [place] 00 every 8 Medical (eight) Branch hours as needed for Pain or Fever. bromphenira 2020-0 Yes [id number] 10mL Take 10 mL Univers mine-pseudo 5-07 by mouth 4 it y of ephedrine-D 00:00: ([place] (BROMFED 00 times Medical DM) 2-30-10 daily as Bran ch mg/5 mL needed for syrup Cough. Bismuth 2020-0 Yes [id number] 262mg Take 1 Un chauncey Subsalicyla 5-07 tablet by ity of te 00:00: mouth 4 [place] (PEPTO-BISM 00 (four) Medica l OL) 262 mg times Branch tablet daily as needed (diarrhea) . proMETHazin 2020-0 Yes [id number] 25mg Take 1 Univers e 25 mg 5-07 tablet by ity of tablet 00:00: mouth [place] 00 every 6 Medical (six) Branch hours as needed for Nausea and Vomiting (N/V). acetaminoph 2020-0 Yes [id number] 650mg Take 1 Univers en 650 mg 5-07 tablet by ity o f CR tablet 00:00: mouth [place] 00 every 8 Medical (eight) Branch hours as needed for Pain or Fever. bromphenira 2020-0 Yes [id number] 10mL Take 10 mL Univers mine-pseudo 5-07 by mouth 4 it y of ephedrine-D 00:00: ([place] (BROMFED 00 times Medical DM) 2-30-10 daily as Bran ch mg/5 mL needed for syrup Cough. Bismuth 2020-0 Yes [id number] 262mg Take 1 Un chauncey Subsalicyla 5-07 tablet by ity of te 00:00: mouth 4 [place] (PEPTO-BISM 00 (four) Medica l OL) 262 mg times Branch tablet daily as needed (diarrhea) . acetaminoph 2020-0 Yes [id number] 650mg Take 1 Univers en 650 mg 5-07 tablet by ity o f CR tablet 00:00: mouth [place] 00 every 8 Medical (eight) Branch hours as needed for Pain or Fever. bromphenira 2020-0 Yes [id number] 10mL Take 10 mL Univers mine-pseudo 5-07 by mouth 4 it y of ephedrine-D 00:00: (four[place] (BROMFED 00 times Medical DM) 2-30-10 daily as Bran ch mg/5 mL needed for syrup Cough. Bismuth 2020-0 Yes [id number] 262mg Take 1 Un chauncey Subsalicyla 5-07 tablet by ity of te 00:00: mouth 4 [place] (PEPTO-BISM 00 (four) Medica l OL) 262 mg times Branch tablet daily as needed (diarrhea) . acetaminoph 2020-0 Yes [id number] 650mg Take 1 Univers en 650 mg 5-07 tablet by ity o f CR tablet 00:00: mouth [place] 00 every 8 Medical (eight) Branch hours as needed for Pain or Fever. bromphenira 2020-0 Yes [id number] 10mL Take 10 mL Univers mine-pseudo 5-07 by mouth 4 it y of ephedrine-D 00:00: (four[place] (BROMFED 00 times Medical DM) 2-30-10 daily as Bran ch mg/5 mL needed for syrup Cough. Bismuth 2020-0 Yes [id number] 262mg Take 1 Un chauncey Subsalicyla 5-07 tablet by ity of te 00:00: mouth 4 [place] (PEPTO-BISM 00 (four) Medica l OL) 262 mg times Branch tablet daily as needed (diarrhea) . acetaminoph 2020-0 Yes [id number] 650mg Take 1 Univers en 650 mg 5-07 tablet by ity o f CR tablet 00:00: mouth [place] 00 every 8 Medical (eight) Branch hours as needed for Pain or Fever. bromphenira 2020-0 Yes [id number] 10mL Take 10 mL Univers mine-pseudo 5-07 by mouth 4 it y of ephedrine-D 00:00: (four[place] (BROMFED 00 times Medical DM) 2-30-10 daily as Bran ch mg/5 mL needed for syrup Cough. Bismuth 2020-0 Yes [id number] 262mg Take 1 Un chauncey Subsalicyla 5-07 tablet by ity of te 00:00: mouth 4 [place] (PEPTO-BISM 00 (four) Medica l OL) 262 mg times Branch tablet daily as needed (diarrhea) . acetaminoph 2020-0 Yes [id number] 650mg Take 1 Univers en 650 mg 5-07 tablet by ity o f CR tablet 00:00: mouth [place] 00 every 8 Medical (eight) Branch hours as needed for Pain or Fever. bromphenira 2020-0 Yes [id number] 10mL Take 10 mL Univers mine-pseudo 5-07 by mouth 4 it y of ephedrine-D 00:00: (four[place] (BROMFED 00 times Medical DM) 2-30-10 daily as Bran ch mg/5 mL needed for syrup Cough. Bismuth 2020-0 Yes [id number] 262mg Take 1 Un chauncey Subsalicyla 5-07 tablet by ity of te 00:00: mouth 4 [place] (PEPTO-BISM 00 (four) Medica l OL) 262 mg times Branch tablet daily as needed (diarrhea) . acetaminoph 2020-0 Yes [id number] 650mg Take 1 Univers en 650 mg 5-07 tablet by ity o f CR tablet 00:00: mouth [place] 00 every 8 Medical (eight) Branch hours as needed for Pain or Fever. bromphenira 2020-0 Yes [id number] 10mL Take 10 mL Univers mine-pseudo 5-07 by mouth 4 it y of ephedrine-D 00:00: (four[place] (BROMFED 00 times Medical DM) 2-30-10 daily as Bran ch mg/5 mL needed for syrup Cough. Bismuth 2020-0 Yes [id number] 262mg Take 1 Un chauncey Subsalicyla 5-07 tablet by ity of te 00:00: mouth 4 [place] (PEPTO-BISM 00 (four) Medica l OL) 262 mg times Branch tablet daily as needed (diarrhea) . acetaminoph 2020-0 Yes [id number] 650mg Take 1 Univers en 650 mg 5-07 tablet by ity o f CR tablet 00:00: mouth [place] 00 every 8 Medical (eight) Branch hours as needed for Pain or Fever. bromphenira 2020-0 Yes [id number] 10mL Take 10 mL Univers mine-pseudo 5-07 by mouth 4 it y of ephedrine-D 00:00: (four[place] (BROMFED 00 times Medical DM) 2-30-10 daily as Bran ch mg/5 mL needed for syrup Cough. Bismuth 2020-0 Yes [id number] 262mg Take 1 Un chauncey Subsalicyla 5-07 tablet by ity of te 00:00: mouth 4 [place] (PEPTO-BISM 00 (four) Medica l OL) 262 mg times Branch tablet daily as needed (diarrhea) . proMETHazin 2020-0 2020- No [id number] 25mg Take 1 Univers e 25 mg 5-09 28-20 tablet by ity of tablet 00:00: 00:00 mouth [place] 00 :00 every 6 Medical (six) Branch hours as needed for Nausea and Vomiting (N/V). amitriptyli 2018-0 Yes 10mg QD Take [address] [facility] (ELAVIL) 6-05 by mouth [place] [facility] 10 MG 18:22: nightly. Medical tablet 22 [place] tiZANidine 2018-0 Yes 4mg Take 4 mg [...] Center (four) hours as needed for Pain. traMADOL 50 2017-0 Yes 100mg Take 2 [...] (scale 4-6) or Pain (scale 7-10). HYDROcodone 2015-0 Yes 1{tbl} Take 1 Tab Univers -acetaminop [...] Immunizations Ordered Filled Immunization Date Status Comments [facility] Immunization Name Name Influenza Virus 2016-06-01 Completed Universit y of Vaccine [facility] IM 3+ 00:00:00 [facility] Influenza Virus 2016-06-01 Completed Universit y of Vaccine [facility] IM 3+ 00:00:00 [facility] Influenza Virus 2016-06-01 Completed Universit y of Vaccine [facility] IM 3+ 00:00:00 [facility] Influenza Virus 2016-06-01 Completed Universit y of Vaccine [facility] IM 3+ 00:00:00 [facility] Influenza Virus 2016-06-01 Completed Universit y of Vaccine [facility] IM 3+ 00:00:00 [facility] Influenza Virus 2016-06-01 Completed Universit y of Vaccine [facility] IM 3+ 00:00:00 [facility] Influenza Virus 2016-06-01 Completed Universit y of Vaccine [facility] IM 3+ 00:00:00 [facility] Influenza Virus 2016-06-01 Completed Universit y of Vaccine [facility] IM 3+ 00:00:00 [facility] Influenza Virus 2016-06-01 Completed Universit y of Vaccine [facility] IM 3+ 00:00:00 [facility] Influenza Virus 2016-06-01 Completed Universit y of Vaccine [facility] IM 3+ 00:00:00 [facility] Influenza Virus 2016-06-01 Completed Universit y of Vaccine [facility] IM 3+ 00:00:00 [facility] Influenza Virus 2016-06-01 Completed Universit y of Vaccine [facility] IM 3+ 00:00:00 [facility] Influenza Virus 2016-06-01 Completed Universit y of Vaccine [facility] IM 3+ 00:00:00 [facility] Influenza Virus 2016-06-01 Completed Universit y of Vaccine [facility] IM 3+ 00:00:00 [facility] Influenza Virus 2016-06-01 Completed Universit y of Vaccine [facility] IM 3+ 00:00:00 [facility] Vital Signs Vital Name Observation Time Observation Value Comments Source Systolic blood 2021-03-30 03:00:00 125 mm[Hg] Univer sity of pressure [facility] Diastolic blood 2021-03-30 03:00:00 74 mm[Hg] Unive rsity of pressure [facility] Heart rate 2021-03-30 03:00:00 100 /min [facility] Respiratory rate 2021-03-30 03:00:00 20 /min [facility] Oxygen saturation in 2021-03-30 03:00:00 100 /min [facility] Arterial blood by [facility] Pulse oximetry [place] Body temperature 2021-03-29 23:35:[address] [facility] height 2021-03-29 23:35:00 160 cm [facility] Body weight 2021-03-29 23:35:00 98.884 kg [facility] BMI 2021-03-29 23:35:00 38.62 kg/m2 [facility] [place] [facility] Systolic blood 2020-11-03 00:30:00 141 mm[Hg] Univer sity of pressure [facility] Diastolic blood 2020-11-03 00:30:00 85 mm[Hg] Unive rsity of pressure [place] [facility] Heart rate 2020-11-03 00:30:00 83 /min [facility] [place] [facility] Respiratory rate 2020-11-03 00:30:00 13 /min Univ ersity of [place] [facility] Oxygen saturation in 2020-11-03 00:30:00 97 /min University of Arterial blood by [employer] nicole Pulse oximetry Branch Body temperature 2020-11-02 18:48:00 37 Stella Univ ersity [facility] [place] [facility] Body weight 2020-11-02 18:48:00 93.441 kg [facility] [place] [facility] BMI 2020-11-02 18:48:00 32.26 kg/m2 [facility] [place] [facility] Systolic blood 2020-11-03 00:30:00 141 mm[Hg] Univer sity of pressure [place] [facility] Diastolic blood 2020-11-03 00:30:00 85 mm[Hg] Unive rsity of pressure [place] [facility] Heart rate 2020-11-03 00:30:00 83 /min [facility] [place] [facility] Respiratory rate 2020-11-03 00:30:00 13 /min Univ ersity [facility] [place] [facility] Oxygen saturation in 2020-11-03 00:30:00 97 /min University of Arterial blood by [employer] nicole Pulse oximetry Branch Body temperature 2020-11-02 18:48:00 37 Stella Univ ersity [facility] [place] [facility] Body weight 2020-11-02 18:48:00 93.441 kg [facility] [place] [facility] BMI 2020-11-02 18:48:00 32.26 kg/m2 [facility] [place] [facility] Systolic blood 2020-08-06 04:05:00 155 mm[Hg] Univer sity of pressure [place] [facility] Diastolic blood 2020-08-06 04:05:00 101 mm[Hg] Unive rsity of pressure [facility] Heart rate 2020-08-06 04:05:00 92 /min [facility] [place] [facility] Respiratory rate 2020-08-06 04:05:00 19 /min Univ ersity of [place] [facility] Oxygen saturation in 2020-08-06 04:05:00 99 /min University of Arterial blood by [employer] nicole Pulse oximetry Branch Body temperature 2020-08-06 01:37:00 36.89 Stella Univ ersity [facility] [place] [facility] Body height 2020-08-06 01:37:00 170.2 cm [facility] [place] [facility] Body weight 2020-08-06 01:37:00 93.895 kg [facility] [place] [facility] BMI 2020-08-06 01:37:00 32.42 kg/m2 [facility] [place] [facility] Systolic blood 2020-08-06 04:05:00 155 mm[Hg] Univer sity of pressure [facility] Diastolic blood 2020-08-06 04:05:00 101 mm[Hg] Unive rsity of pressure [facility] Heart rate 2020-08-06 04:05:00 92 /min [facility] [place] [facility] Respiratory rate 2020-08-06 04:05:00 19 /min Univ ersity [facility] [place] [facility] Oxygen saturation in 2020-08-06 04:05:00 99 /min University of Arterial blood by [employer] nicole Pulse oximetry Branch Body temperature 2020-08-06 01:37:00 36.89 Stella Univ ersity [facility] [place] [facility] Body height 2020-08-06 01:37:00 170.2 cm [facility] [place] [facility] Body weight 2020-08-06 01:37:00 93.895 kg [facility] [place] [facility] BMI 2020-08-06 01:37:00 32.42 kg/m2 [facility] [place] [facility] Systolic blood 2020-07-23 01:00:00 140 mm[Hg] Univer sity of pressure [facility] Diastolic blood 2020-07-23 01:00:00 80 mm[Hg] Unive rsity of pressure [facility] Heart rate 2020-07-23 01:00:00 63 /min [facility] [place] [facility] Respiratory rate 2020-07-23 01:00:00 18 /min Univ ersity [facility] [place] [facility] Oxygen saturation in 2020-07-23 01:00:00 97 /min [facility] of Arterial blood by [place] [facility] nicole Pulse oximetry Branch Body temperature 2020-07-22 22:18:00 37.11 Stella Univ ersity [facility] [place] [facility] Body weight 2020-07-22 22:18:00 97.07 kg [facility] [place] [facility] BMI 2020-07-22 22:18:00 33.52 kg/m2 [facility] [place] [facility] Systolic blood 2020-07-23 01:00:00 140 mm[Hg] Univer sity of pressure [place] [facility] Diastolic blood 2020-07-23 01:00:00 80 mm[Hg] Unive rsity of pressure [facility] Heart rate 2020-07-23 01:00:00 63 /min [facility] [place] [facility] Respiratory rate 2020-07-23 01:00:00 18 /min Univ ersity [facility] [place] [facility] Oxygen saturation in 2020-07-23 01:00:00 97 /min University of Arterial blood by [facility] Pulse oximetry Branch Body temperature 2020-07-22 22:18:00 37.11 Stella Univ ersity [facility] [place] [facility] Body weight 2020-07-22 22:18:00 97.07 kg [facility] [place] [facility] BMI 2020-07-22 22:18:00 33.52 kg/m2 [facility] [place] [facility] Systolic blood 2020-05-20 00:00:00 156 mm[Hg] Univer sity of pressure [place] [facility] Diastolic blood 2020-05-20 00:00:00 94 mm[Hg] Unive rsity of pressure [place] [facility] Heart rate 2020-05-20 00:00:00 90 /min [facility] [place] [facility] Respiratory rate 2020-05-20 00:00:00 18 /min Univ ersity [facility] [place] [facility] Oxygen saturation in 2020-05-20 00:00:00 96 /min University of Arterial blood by [facility] Pulse oximetry Branch Body temperature 2020-05-19 21:37:00 37.11 Stella Univ ersity [facility] [place] [facility] Body height 2020-05-19 21:37:00 170.2 cm [facility] [place] [facility] Body weight 2020-05-19 21:37:00 93.441 kg [facility] [place] [facility] BMI 2020-05-19 21:37:00 32.26 kg/m2 [facility] [place] [facility] Systolic blood 2020-05-20 00:00:00 156 mm[Hg] Univer sity of pressure [place] [facility] Diastolic blood 2020-05-20 00:00:00 94 mm[Hg] Unive rsity of pressure [place] [facility] Heart rate 2020-05-20 00:00:00 90 /min [facility] [place] [facility] Respiratory rate 2020-05-20 00:00:00 18 /min Univ ersity [facility] [place] [facility] Oxygen saturation in 2020-05-20 00:00:00 96 /min University of Arterial blood by [employer] nicole Pulse oximetry Branch Body temperature 2020-05-19 21:37:00 37.11 Stella Univ ersity [facility] [place] [facility] Body height 2020-05-19 21:37:00 170.2 cm [facility] [place] [facility] Body weight 2020-05-19 21:37:00 93.441 kg [facility] [place] [facility] BMI 2020-05-19 21:37:00 32.26 kg/m2 [facility] [place] [facility] Systolic blood 2019-08-22 07:00:00 165 mm[Hg] Univer sity of pressure [place] [facility] Diastolic blood 2019-08-22 07:00:00 127 mm[Hg] Unive rsity of pressure [facility] Heart rate 2019-08-22 07:00:00 99 /min [facility] [place] [facility] Respiratory rate 2019-08-22 07:00:00 14 /min Univ ersity [facility] [place] [facility] Oxygen saturation in 2019-08-22 07:00:00 97 /min University of Arterial blood by [employer] nicole Pulse oximetry Branch Body temperature 2019-08-22 04:58:00 37.5 Stella Univ ersity [facility] [place] [facility] Body weight 2019-08-22 04:58:00 92.987 kg [facility] [place] [facility] BMI 2019-08-22 04:58:00 32.11 kg/m2 [facility] [place] [facility] Systolic blood 2019-08-22 07:00:00 165 mm[Hg] Univer sity of pressure [facility] Diastolic blood 2019-08-22 07:00:00 127 mm[Hg] Unive rsity of pressure [facility] Heart rate 2019-08-22 07:00:00 99 /min [facility] [place] [facility] Respiratory rate 2019-08-22 07:00:00 14 /min [facility] ersity of [facility] Oxygen saturation in 2019-08-22 07:00:00 97 /min University of Arterial blood by [facility] Pulse oximetry Branch Body temperature 2019-08-22 04:58:[address] [facility] ersity of [facility] Body weight 2019-08-22 04:58:00 92.987 kg Universi ty of [facility] BMI 2019-08-22 04:58:00 32.11 kg/m2 Universi ty of [facility] Systolic blood 2019-08-04 19:56:00 133 mm[Hg] Univer sity of pressure [facility] Diastolic blood 2019-08-04 19:56:00 91 mm[facility]Hg] [facility] 2019-08-04 19:47:00 107 /min Universi ty of [facility] Body temperature 2019-08-04 19:47:[address] [facility] rate 2019-08-04 19:47:00 20 /min [facility] ersity [facility] Body height 2019-08-04 19:47:00 170.2 cm Universi ty of [facility] Body weight 2019-08-04 19:47:00 97.977 kg Universi ty of [facility] BMI 2019-08-04 19:47:00 33.83 kg/m2 Universi ty of [facility] Oxygen saturation in 2019-08-04 19:47:00 100 /min University of Arterial blood by [facility] Pulse oximetry Branch Procedures Procedure Date / Time Performing Clinician Source Performed AUTHORIZATION FOR RELEASE 2021-07-09 05:01:00 Doctor Unassigned, [facility] [place] [facility] [place] XR CHEST 2 VW 2021-03-30 00:42:57 Krys Jewell [facility] CONSENT/REFUSAL FOR 2021-03-29 23:21:19 Doctor Unassigned, [facility] DIAGNOSIS AND TREATMENT [place] [facility] CT ABDOMEN PELVIS W 2020-11-02 22:44:07 [facility] CONTRAST [facility] Branch MAGNESIUM 2020-11-02 22:10:00 Amari Maza Clear o f [facility] TROPONIN I 2020-11-02 22:10:00 Amari Maza Cristina Clear o [facility] COMP. METABOLIC PANEL 2020-11-02 22:10:00 Amari Maza [facility] ([id number]) Medical Branch CBC WITH DIFF 2020-11-02 22:10:00 Amari Maza Cristina Clear o [facility] URINALYSIS 2020-11-02 22:10:00 Amari Maza [facility] o [facility] NOTICE OF PRIVACY 2020-11-02 18:42:52 Doctor Unassigned, [facility] PRACTICES [place] [facility] [place] CONSENT/REFUSAL FOR 2020-11-02 18:39:42 Doctor Unassigned, [facility] DIAGNOSIS AND TREATMENT [place] [facility] [place] CT ABDOMEN PELVIS W 2020-08-06 03:33:07 Mayte Lamb [facility] CONTRAST Medical Branch COVID-19 (ID NOW RAPID 2020-08-06 02:57:00 Mayte Lamb [facility] TESTING) Medical Branch LIPASE 2020-08-06 02:22:00 Mayte Lamb [facility] COMP. METABOLIC PANEL 2020-08-06 02:22:00 Mayte Lamb [facility] ([id number]) Medical [place] CBC WITH DIFF 2020-08-06 02:22:00 Mayte Lamb [facility] LACTIC ACID WHOLE BLOOD 2020-08-06 02:22:00 Mayte Lamb [facility] URINALYSIS 2020-08-06 01:42:00 Jose Cruz Prakash [facility] CONSENT/REFUSAL FOR 2020-08-06 01:26:13 Doctor Unassigned, [facility] DIAGNOSIS AND TREATMENT [place] [facility] [place] COVID-19 (ID NOW RAPID 2020-07-23 00:39:00 Mayte Lamb [facility] TESTING) Medical Branch CT CERVICAL SPINE WO 2020-07-22 23:06:25 Mayte Lamb [facility] CONTRAST Medical Branch CT HEAD WO CONTRAST 2020-07-22 23:06:25 Mayte Lamb [facility] XR CHEST 1 VW 2020-07-22 22:53:06 Mayte Lamb [facility] LIPASE 2020-07-22 22:51:00 Mayte Lamb [facility] TROPONIN I 2020-07-22 22:51:00 Mayte Lamb [facility] FREE T4 2020-07-22 22:51:00 Mayte Lamb [facility] THYROID STIMULATING 2020-07-22 22:51:00 Mayte Lamb [facility] HORMONE [facility] HEPATIC FUNCTION PANEL 2020-07-22 22:51:00 Mayte Lamb [facility] ([id number]) (ALB,T.PRO,BILI Medical [place] T,BU/BC,ALT,AST,ALK PHOS) BASIC METABOLIC PANEL 2020-07-22 22:51:00 Mayte Lamb [facility] (NA, K, CL, CO2, GLUCOSE, Medica l Branch BUN, CREATININE, CA) CBC WITH DIFF 2020-07-22 22:51:00 Mayte Lamb [facility] URINALYSIS 2020-07-22 22:51:00 Mayte Lamb [facility] N-TERMINAL PRO-BNP 2020-07-22 22:51:00 Mayte Lamb [facility] POCT GLUCOSE (AUTOMATED) 2020-07-22 22:17:00 Doctor Shy, [facility] Name [facility] CONSENT/REFUSAL FOR 2020-07-22 22:08:56 Doctor Shy, [facility] DIAGNOSIS AND TREATMENT [facility] MEDICATION CORRESPONDENCE 2020-06-17 05:01:00 Doctor Shy, [facility] [place] [facility] [place] LIPASE 2020-05-19 22:05:00 Pastora Esparza [facility] COMP. METABOLIC PANEL 2020-05-19 22:05:00 Pastora Esparza [facility] ([id number]) Medical Branch CBC WITH DIFF 2020-05-19 22:05:00 Pastora Esparza [facility] URINALYSIS 2020-05-19 22:05:00 Pastora Esparza [facility] NOTICE OF PRIVACY 2020-05-19 21:27:02 Doctor Shy [facility] [place] [facility] CONSENT/REFUSAL FOR 2020-05-19 21:26:36 Doctor Shy [facility] DIAGNOSIS AND TREATMENT [place] [facility] [place] POCT GLUCOSE (AUTOMATED) 2019-08-22 07:05:00 [facility] 2019-08-22 05:18:00 Jose Cruz Prakash [facility] COMP. METABOLIC PANEL 2019-08-22 05:18:00 Jose Cruz Prakash [facility] ([id number]) Medical Branch CBC WITH DIFFERENTIAL 2019-08-22 05:18:00 Jose Cruz Prakash [facility] URINALYSIS 2019-08-22 05:05:00 Jose Cruz Prakash [facility] COVID-19 (ID NOW RAPID 2019-08-22 05:04:00 Jose Cruz Prakash [facility] TESTING) Medical Branch ASSIGNMENT OF BENEFITS 2019-08-22 04:32:23 Doctor Begum [facility] Name Medical [place] NOTICE OF PRIVACY 2019-08-22 04:32:08 Doctor Shy [facility] [place] [facility] [place] CONSENT/REFUSAL FOR 2019-08-22 04:31:55 Doctor Shy [facility] DIAGNOSIS AND TREATMENT [place] [facility] [place] Encounters Start End Encounter Admission Attending Care Care Encounter Source Date/Time Date/Time Type Type Clinicians Facility Department ID 2021-01-28 Emergency [facility] [id number] [facility] Emergency [facility] [id number] Univers 17:59[facility] 2021-01-27 Emergency [facility] [id number] Univers [facility]:07[facility] 2021-01-27 Emergency [facility] [id number] Univers 00:15:52 ity of [facility] 2021-01-26 Emergency [facility] [id number] Univers 10:55:23 ity of [facility] 2021-01-24 Emergency [facility] [id number] Univers 22:08:18 ity of [facility] 2021-08-22 2021-08-22 Outpatient [place]_D VFP VFP [id number] 10-16 Village 11:00:00 11:00:00 [id number] Family Practic e 2021-07-09 2021-07-09 Orders Doctor IQRA [id number] Univers 00:00:00 00:00:00 Only Unassigned, GREGORY [id number] ity of [place] [facility] [id number] Roberto as [id number] [place] [id number] Branch 2021-03-29 2021-03-29 Emergency [facility] [id number] Univers 17:36:00 21:51:00 KRYS ity of [facility] 2021-03-29 2021-03-29 Emergency [facility] 1.2.840.114 [id number] Univers 17:36:00 21:51:00 Kryskeo FITZPATRICK 350.1.13.10 i ty of [place] [id number] [place] 060734 Branch 2020-11-02 2020-11-02 Emergency Amari Maza [facility] 1.2.840.114 [id number] Univers 13:53:00 20:06:00 Cristina Fitzpatrick 350.1.13.10 i ty [place] [id number] [place] 060734 Branch 2020-11-02 2020-11-02 Emergency Amari Maza [facility] 1.2.840.114 [id number] 13:53:00 20:06:00 Cristina Fitzpatrick 350.1.13.10 [place] 4.2.7.2.686 [place] [id number] [facility] 2020-10-20 2020-10-22 Inpatient U DEBORAH [facility] 1205 [facility] 11:58:00 18:52:00 DOUG gaby [facility] 2020-08-05 2020-08-05 Emergency [facility] 1.2.840.114 [id number] [facility] 20:44:00 23:55:00 Haileeo Isaac [place] 350.1.13.10 ity of [place] 4.2.7.2.686 [facility] [id number] [facility] 084 Branch 2020-08-05 2020-08-05 Emergency [facility] 1.2.840.114 [id number] 20:44:00 23:55:00 Folusho [place] 350.1.13.10 [place] 4.2.7.2.686 [place] [id number] 08 2020-07-22 2020-07-22 Emergency [facility] 1.2.840.114 [id number] [facility] 17:17:00 20:14:00 Haileeo [place] 350.1.13.10 ity of [place] 4.2.7.2.686 [facility] [id number] [facility] 084 Branch 2020-07-22 2020-07-22 Emergency [facility] 1.2.840.114 [id number] 17:17:00 20:14:00 Haileeo [place] 350.1.13.10 [place] 4.2.7.2.686 [place] [id number] 08 2020-06-17 2020-06-17 Orders Doctor ESCALONA 1.2.840.114 [id number] Univers 00:00:00 00:00:00 Only Unassigned, GREGORY 350.1.13.10 ity of [place] [facility] 4.2.7.2.686 Roberto [id number] [facility] 009 Branch 2020-06-17 2020-06-17 Orders Doctor IQRA 1.2.840.114 [id number] 00:00:00 00:00:00 Only Unassigned, GREGORY 350.1.13.10 [place] [facility] 4.2.7.2.686 [id number] [facility] 2020-05-19 2020-05-19 Emergency [facility] 1.2.475.069 [id number] [facility] 15:45:00 18:07:00 Pastora Fitzpatrick 350.1.13.10 i ty of [place] 4.2.7.2.686 [facility] [id number] [address] 2020-05-19 2020-05-19 Emergency [facility] 1.2.219.396 [id number] 15:45:00 18:07:00 Pastora Cur[place] 350.1.13.10 [place] 4.2.7.2.686 [place] [id number] [facility] 2019-08-21 2019-08-22 Emergency [facility] 1.2.885.009 [id number] [facility] 23:48:04 02:26:00 Jose Cruz [place] 350.1.13.10 ity [facility] 4.2.7.2.686 [facility] [id number] [address] 2019-08-21 2019-08-[address] [facility] 1.2.575.078 [id number] 23:48:04 02:26:00 Jose Cruz Fitz[place] 350.1.13.10 [place] [address] [place] [address] [phone] [facility] 2019-08-06 2019-08-06 Telephone IQRA Barragan 1.2.840.114 [id number] [facility] 00:00:00 00:00:00 Apoorva JENKINS 350.1.13.10 it y of [facility] 4.2.7.2.686 Roberto as [id number] [address] 2019-08-06 2019-08-06 Telephone IQRA Box 1.2.529.449 [id number] Univers 00:00:00 00:00:00 Jinny JENKINS 350.1.13.10 it y [facility] 4.2.7.2.686 Roberto as [phone] [address] 2019-08-06 2019-08-06 Telephone IQRA Barragan 1.2.840.114 [id number] 00:00:00 00:00:00 Apoorva JENKINS 350.1.13.10 HOSPITAL 4.2.7.2.686 [id number] 019 2019-08-06 2019-08-06 Telephone IQRA Box 1.2.429.388 [id number] 00:00:00 00:00:00 Jinny JENKINS 350.1.13.10 [facility] 4.2.7.2.686 [id number] 019 2019-08-05 2019-08-05 [facility]phone [facility] 1.2.840.114 [id number] [facility] 00:00:00 00:00:00 [facility] 350.1.13.10 it y of [place] 4.2.7.2.686 Roberto as Professio [phone] Nj dical nal [address] 2019-08-05 2019-08-05 Telephone IQRA Box 1.2.859.226 [id number] [facility] 00:00:00 00:00:00 Jinny JENKINS 350.1.13.10 it y of [facility] 4.2.7.2.686 Roberto as [phone] [address] 2019-08-05 2019-08-05 Telephone IQRA Box 1.2.450.504 [id number] 00:00:00 00:00:00 Jinny JENKINS 350.1.13.10 [facility] 4.2.7.2.686 [id number] 019 2019-08-04 2019-08-04 Urgent Pob1, Acute Care Clinic [facility] 1. 2.840.114 [id number] Univers 14:42:35 15:59:50 [facility] 350.1.13.10 ity [facility] 4.2.7.2.686 Roberto as Professio [phone] Nj dical nal [address] 2019-08-04 2019-08-04 Outpatient R [facility] [id number] Univers 15:00:00 15:00:00 [facility] Test Test Results Result Source [...] No suspicious focal osseous lesions are seen. [facility], Radiant Results Inft User - 11/02/2020 [...] 0.000 ng/mL See_Comment [Au tomated message] The 5942041312) system which ge nerated this result tra [...] biotin. Lab Interpretation Normal (test code = 90257-2) [facility] 22:39:02 Test Item Value Reference Range Interpretation Comments APPEARANCE (test code = Clear Clear 1167377390) COLOR (test code = Yellow Yellow 7492002509) PH (test code = 4.8-8.0 4267938375) SP GRAVITY (test code = 1.003-1.030 1944716357) GLU U QUAL (test code = 50 mg/dL Normal A 4075547984) BLOOD (test code = 3+ Negative A 4129085708) KETONES (test code = Negative Negative 2691098481) PROTEIN (test code = Negative Negative 2887-8) UROBILIN (test code = Normal Normal 7339900018) BILIRUBIN (test code = Negative Negative 0153690548) NITRITE (test code = Negative Negative 0955808298) LEUK PARTH (test code = 25/uL Negative A 7927529804) RBC/HPF (test code = See_Comment [Autom ated message] 2487337419) The system [employer] generated this result transmitted ref erence range: 0 - 3 HP F. The reference range was not used to int erpret this result as normal/abnormal . WBC/HPF (test code = See_Comment [Autom ated message] 5970995252) The system [employer] generated this result transmitted ref erence range: 0 - 5 HP F. The reference range was not used to int erpret this result as normal/abnormal . BACTERIA (test code = Negative Negative 6211977250) MUCOUS (test code = Slight Negative LPF A 5071915986) SQ EPITH (test code = HPF 6739657574) Lab Interpretation (test Abnormal code = 96303-9) [facility]2021-08-06 22:38:26 Test Item Value Reference Range Interpretation Comments MAGNESIUM (test code = 9968083049) 1.4 mg/dL 1.7-2.4 L Lab Interpretation (test code = Abnormal 77501-2) [facility]vine[facility]. METABOLIC PANEL ([id number])2020-11-02 22:38:11 Test Item Value Reference Range Interpretation Comments NA (test code = 139 mmol/L 135-145 9183677900) K (test code = 3.7 mmol/L 3.5-5.0 7677976966) CL (test code = 102 mmol/L 98-108 1164082327) CO2 TOTAL (test code = 24 mmol/L 23-31 6766490545) AGAP (test code = 2-16 3798094844) BUN (test code = 16 mg/dL 7-23 1922786552) GLUCOSE (test code = 183 mg/dL 70-110 H 8457824629) CREATININE (test code = 0.64 mg/dL 0.50-1.04 9824768468) TOTAL BILI (test code = 0.2 mg/dL 0.1-1.3 1048945367) CALCIUM (test code = 10.4 mg/dL 8.6-10.6 3388833569) T PROTEIN (test code = 8.5 g/dL 6.3-8.2 H 1011186915) ALBUMIN (test code = 4.8 g/dL 3.5-5.0 5272579880) ALK PHOS (test code = 103 U/L 34-122 8387718138) ALTv (test code = 20 U/L 5-35 1742-6) AST(SGOT) (test code = 21 U/L 13-40 4042509961) eGFR (test code = mL/min/1.73m2 4278945388) FALLON (test code = FALLON) Association of [...] tests). Lab Interpretation Abnormal (test code = 86184-0) [facility] WITH [id number] 22:33:08 Test Item Value Reference Range Interpretation Comments WBC (test code = See_Comment [Automated 3863-2) message] The sy stem which generated this [...] (test code = 38.5 fL 39.0-49.9 L 53511-8) RDW-CV (test code = 13.3 % 12.0-15.5 788-0) PLT (test code = See_Comment [Automated 777-3) message] The sy stem which generated this result transmitted reference range : 166 - 358 10*3/ ?L. The reference r farrah was not used to interpret this result as normal/abnormal . MPV (test code = 10.5 fL 9.5-12.9 36191-1) NRBC/100 WBC (test See_Comment [Automat ed code = 0595113279) message] The system which generated this result transmitted reference range : 0.0 - 10.0 /100 WBCs. The refer ence range was not u sed to interpret th is result as normal/abnormal . NRBC x10^3 (test code <0.01 See_Comment [Auto mated = 7361852315) message] The s ystem which generated this result transmitted reference range : 10*3/?L. The reference range was not used to interpret this result as normal/abnormal . GRAN MAT (NEUT) % 52.3 % (test code = 770-8) IMM GRAN % (test code 0.40 % = 7018600820) LYMPH % (test code = 37.8 % 736-9) MONO % (test code = 7.3 % 5905-5) EOS % (test code = 1.7 % 713-8) BASO % (test code = 0.5 % 706-2) GRAN MAT x10^3(ANC) 5.25 10*3/uL 1.88-7.09 (test code = 9354986235) IMM GRAN x10^3 (test 0.04 10*3/uL 0.00-0.06 code = 0280116707) LYMPH x10^3 (test code 3.79 10*3/uL 1.32-3.29 H = 731-0) MONO x10^3 (test code 0.73 10*3/uL 0.33-0.92 = 742-7) EOS x10^3 (test code = 0.17 10*3/uL 0.03-0.39 711-2) BASO x10^3 (test code 0.05 10*3/uL 0.01-0.07 = 704-7) Lab Interpretation Abnormal (test code = 48599-9) [facility]OVID[facility] (ID NOW RAPID TESTING)2020-08-06 03:39:43 Test Item Value Reference Range Interpretation Comments SARS-CoV-2 Rapid ID NOW Not Detected Not Detected (test code = 86371-4) FALLON (test code = FALLON) ID NOW COVID-19 Assay is an isothermal nucleic acid amplification test intended for the qualitative detection of nucleic acid from SARS-CoV-2 viral RNA in nasopharyngeal (VEGETABLE FARMWORKER) specimens. It is used under Emergency Use [...] indicated. Lab Interpretation Normal (test code = 70608-6) [facility]vineCOM. METABOLIC PANEL (44151)2020-08-06 03:11:02 Test Item Value Reference Range Interpretation Comments NA (test code = 138 mmol/L 135-145 0503917761) K (test code = 4.6 mmol/L 3.5-5.0 9325062441) CL (test code = 102 mmol/L 98-108 1079215503) CO2 TOTAL (test code = 23 mmol/L 23-31 3884538689) AGAP (test code = 2-16 2625419978) BUN (test code = 17 mg/dL 7-23 7387514660) GLUCOSE (test code = 477 mg/dL 70-110 6438197906) CREATININE (test code = 0.70 mg/dL 0.50-1.04 8796162738) TOTAL BILI (test code = 0.6 mg/dL 0.1-1.1 4582731980) CALCIUM (test code = 9.4 mg/dL 8.6-10.6 0704802282) T PROTEIN (test code = 7.4 g/dL 6.3-8.2 3215308072) ALBUMIN (test code = 4.4 g/dL 3.5-5.0 3505447914) ALK PHOS (test code = 113 U/L 34-122 8598031102) ALTv (test code = 22 U/L 5-35 1742-6) AST(SGOT) (test code = 35 U/L 13-40 8980655050) eGFR (test code = mL/min/1.73m2 6116675606) FALLON (test code = FALLON) Association of [...] tests). Lab Interpretation Abnormal (test code = 84003-0) [facility]vineLipase [id number] 03:07:41 Test Item Value Reference Range Interpretation Comments LIPASE (test code = 4487779299) 169 U/L 0-220 Lab Interpretation (test code = Normal 48970-3) [facility]vineCBC with Jqfugfbfevcu2834-09-17 02:40:54 Test Item Value Reference Range Interpretation [...] (test code = 38.2 fL 39.0-49.9 L 88080-6) RDW-CV (test code = 13.5 % 12.0-15.5 788-0) PLT (test code = See_Comment [Automated 777-3) message] The sy stem which generated this result transmitted reference range : 166 - 358 10*3/ ?L. The reference r farrah was not used to interpret this result as normal/abnormal . MPV (test code = 10.7 fL 9.5-12.9 34064-9) NRBC/100 WBC (test See_Comment [Automat ed code = 0029247005) message] The system which generated this result transmitted reference range : 0.0 - 10.0 /100 WBCs. The refer ence range was not u sed to interpret th is result as normal/abnormal . NRBC x10^3 (test code <0.01 See_Comment [Auto mated = 8482637119) message] The s ystem which generated this result transmitted reference range : 10*3/?L. The reference range was not used to interpret this result as normal/abnormal . GRAN MAT (NEUT) % 62.1 % (test code = 770-8) IMM GRAN % (test code 0.70 % = 5004722162) LYMPH % (test code = 29.4 % 736-9) MONO % (test code = 5.2 % 5905-5) EOS % (test code = 1.9 % 713-8) BASO % (test code = 0.7 % 706-2) GRAN MAT x10^3(ANC) 6.64 10*3/uL 1.88-7.09 (test code = 3681224973) IMM GRAN x10^3 (test 0.07 10*3/uL 0.00-0.06 H code = 8508115466) LYMPH x10^3 (test code 3.14 10*3/uL 1.32-3.29 = 731-0) MONO x10^3 (test code 0.56 10*3/uL 0.33-0.92 = 742-7) EOS x10^3 (test code = 0.20 10*3/uL 0.03-0.39 711-2) BASO x10^3 (test code 0.07 10*3/uL 0.01-0.07 = 704-7) Lab Interpretation Abnormal (test code = 41136-2) [facility] Acid Whole [id number] 02:27:55 Test Item Value Reference Range Interpretation Comments LACTIC ACID (test code = 2.34 mmol/L 0.50-2.20 H 1448095414) Lab Interpretation (test code = Abnormal 93237-3) [facility]AL[facility]IS2021-05-10 02:03:28 Test Item Value Reference Range Interpretation Comments APPEARANCE (test code = Cloudy Clear A 2102844874) COLOR (test code = Yellow Yellow 9229371518) PH (test code = 4.8-8.0 6805692708) SP GRAVITY (test code = 1.003-1.030 H 8870432599) GLU U QUAL (test code = 500 mg/dL Normal A 5656687742) BLOOD (test code = Negative Negative 6790669477) KETONES (test code = Negative Negative 4257035742) PROTEIN (test code = Negative Negative 2887-8) UROBILIN (test code = Normal Normal 4977736498) BILIRUBIN (test code = Negative Negative 5854521406) NITRITE (test code = Negative Negative 5139460216) LEUK PARTH (test code = 250/uL Negative A 8035359495) RBC/HPF (test code = See_Comment [Autom ated message] 3553133683) The system [employer] generated this result transmit jeny reference range : 0 - 3 HPF. The refe rence range was not u sed to interpret th is result as normal/abnormal . WBC/HPF (test code = See_Comment H [Autom ated message] 5716528260) The system [employer] generated this result transmit jeny reference range : 0 - 5 HPF. The refe rence range was not u sed to interpret th is result as normal/abnormal . BACTERIA (test code = Few Negative A 2826573763) MUCOUS (test code = Slight Negative LPF A 0788287601) SQ EPITH (test code = HPF 6579516657) Lab Interpretation (test Abnormal code = 38947-5) [facility]OVID[facility] (ID NOW RAPID TESTING)2020-07-23 01:04:25 Test Item Value Reference Range Interpretation Comments SARS-CoV-2 Rapid ID NOW Not Detected Not Detected (test code = 60218-4) FALLON (test code = FALLON) ID NOW COVID-19 Assay is an isothermal nucleic acid amplification test intended for the qualitative detection of nucleic acid from SARS-CoV-2 viral RNA in nasopharyngeal (VEGETABLE FARMWORKER) specimens. It is used under Emergency Use [...] indicated. Lab Interpretation Normal (test code = 44086-1) [facility]vineTHYROID STIMULATING [id number] 23:54:39 Test Item Value Reference Range Interpretation Comments TSH (test code = See_Comment [Automated message] 0877571524) The system [employer] generated this result transmitted ref erence range: 0.45 - 4 .70 mIU/L. The refe rence range was not u sed to interpret this result as normal/abnor mal. Lab Interpretation (test Normal code = 69938-4) [facility] [id number] 23:43:00 Test Item Value Reference Range Interpretation Comments FREE T4 (test code = See_Comment [Autom ated message] 2849475125) The system [employer] generated this result transmitted ref erence range: 0.78 - 2 .20 ng/dL:. The ref erence range was not u sed to interpret this result as normal/abnor mal. Lab Interpretation (test Normal code = 08525-0) [facility] (NA, K, CL, CO2, GLUCOSE, BUN, CREATININE, CA)2020-07-22 23:41:03 Test Item Value Reference Range Interpretation Comments NA (test code = 136 mmol/L 135-145 3223663874) K (test code = 4.0 mmol/L 3.5-5.0 2144202444) CL (test code = 97 mmol/L 98-108 L 2543137246) CO2 TOTAL (test code = 30 mmol/L 23-31 1930257193) AGAP (test code = 2-16 7329370048) BUN (test code = 10 mg/dL - 9683018364) GLUCOSE (test code = 483 mg/dL 70-110 6800217811) CREATININE (test code = 0.64 mg/dL 0.50-1.04 2835443587) CALCIUM (test code = 9.5 mg/dL 8.6-10.6 9520637824) eGFR (test code = mL/min/1.73m2 6300750452) FALLON (test code = FALLON) Association of [...] tests). Lab Interpretation Abnormal (test code = 88743-5) [facility]vineHepatic Function Panel (ALB, T.PRO, BILI T, BU/BC, ALT, AST, ALK PHOS)2020-07-22 23:40:08 Test Item Value Reference Range Interpretation Comments TOTAL BILI (test code = 8882565077) 0.3 mg/dL 0.1-1.1 BILI UNCON (test code = 9100463962) 0.2 mg/dL 0.1-1.1 BILI CONJ (test code = 8408345000) 0.0 mg/dL 0.0-0.3 T PROTEIN (test code = 3076591695) 6.4 g/dL 6.3-8.2 ALBUMIN (test code = 8628741757) 3.9 g/dL 3.5-5.0 ALK PHOS (test code = 4641767840) 125 U/L 34-122 H ALTv (test code = 1742-6) 21 U/L 5-35 AST(SGOT) (test code = 8963950838) 19 U/L 13-40 Lab Interpretation (test code = Abnormal 93400-5) [facility]vineN-TERMINAL [id number]-[id number] 23:40:08 Test Item Value Reference Range Interpretation Comments NT-proBNP (test code 73 pg/mL See_Comment [Autom ated = 3847681141) message] The system which generated this result transmitted reference range : <=125. The reference range was not used to interpret this result as normal/abnormal . FALLON (test code = FALLON) Biotin has been reported to cause a negative bias, interpret results relative to patient's use of biotin. Lab Interpretation Normal (test code = 65528-1) [facility] GrapevineTroponin [id number] 23:40:08 Test Item Value Reference Range Interpretation Comments TROPONIN I (test 0.001 ng/mL See_Comment [Automated code = 7206626515) message] The system which generated this result [...] ? Lab Interpretation Normal (test code = 34288-9) [facility]vineLIPASE2021-04-25 23:22:59 Test Item Value Reference Range Interpretation Comments LIPASE (test code = 5738551300) 141 U/L 0-220 Lab Interpretation (test code = Normal 81068-0) [facility] GrapevineUrinalysis2021-04-25 23:20:48 Test Item Value Reference Range Interpretation Comments APPEARANCE (test code = Clear Clear 1682428145) COLOR (test code = Straw Yellow A 6624601712) PH (test code = 4.8-8.0 7444048896) SP GRAVITY (test code = 1.003-1.030 7269989800) GLU U QUAL (test code = 500 mg/dL Normal A 8634685666) BLOOD (test code = Negative Negative 9470291010) KETONES (test code = Negative Negative 3057364573) PROTEIN (test code = Negative Negative 2887-8) UROBILIN (test code = Normal Normal 7744992260) BILIRUBIN (test code = Negative Negative 1284850163) NITRITE (test code = Negative Negative 7595361494) LEUK PARTH (test code = Negative Negative 2327562444) RBC/HPF (test code = See_Comment [Autom ated message] 1280754582) The system [employer] generated this result transmit jeny reference range : 0 - 3 HPF. The refe rence range was not u sed to interpret th is result as normal/abnormal . WBC/HPF (test code = See_Comment [Autom ated message] 2865263934) The system [employer] generated this result transmit jeny reference range : 0 - 5 HPF. The refe rence range was not u sed to interpret th is result as normal/abnormal . BACTERIA (test code = Negative Negative 4921899811) SQ EPITH (test code = HPF 9957148327) Lab Interpretation (test Abnormal code = 32891-5) [facility] with Xnrylopmmxxl3308-28-67 23:01:38 Test Item Value Reference Range Interpretation [...] (test code = 37.3 fL 39.0-49.9 L 56026-2) RDW-CV (test code = 12.8 % 12.0-15.5 788-0) PLT (test code = See_Comment [Automated 777-3) message] The sy stem which generated this result transmitted reference range : 166 - 358 10*3/ ?L. The reference r farrah was not used to interpret this result as normal/abnormal . MPV (test code = 10.8 fL 9.5-12.9 53258-5) NRBC/100 WBC (test See_Comment [Automat ed code = 1537599141) message] The system which generated this result transmitted reference range : 0.0 - 10.0 /100 WBCs. The refer ence range was not u sed to interpret th is result as normal/abnormal . NRBC x10^3 (test code <0.01 See_Comment [Auto mated = 3941298289) message] The s ysteNodej[employer] which generated this result transmitted reference range : 10*3/?L. The reference range was not used to interpret this result as normal/abnormal . GRAN MAT (NEUT) % 55.0 % (test code = 770-8) IMM GRAN % (test code 0.30 % = 1720513559) LYMPH % (test code = 35.6 % 736-9) MONO % (test code = 7.2 % 5905-5) EOS % (test code = 1.4 % 713-8) BASO % (test code = 0.5 % 706-2) GRAN MAT x10^3(ANC) 3.20 10*3/uL 1.88-7.09 (test code = 6581400031) IMM GRAN x10^3 (test <0.03 0.00-0.06 code = 2179140732) LYMPH x10^3 (test code 2.07 10*3/uL 1.32-3.29 = 731-0) MONO x10^3 (test code 0.42 10*3/uL 0.33-0.92 = 742-7) EOS x10^3 (test code = 0.08 10*3/uL 0.03-0.39 711-2) BASO x10^3 (test code 0.03 10*3/uL 0.01-0.07 = 704-7) Lab Interpretation Abnormal (test code = 99237-7) [facility]vinePOCT GLUCOSE (AUTOMATED)2020-07-22 22:21:14 Test Item Value Reference Range Interpretation Comments POCT GLU (test code = 6453891836) 428 mg/dL 70-110 H Lab Interpretation (test code = Abnormal 78586-7) [facility]. METABOLIC PANEL (47797)2020-05-19 22:32:00 Test Item Value Reference Range Interpretation Comments NA (test code = 137 mmol/L 135-145 5440434204) K (test code = 4.0 mmol/L 3.5-5 4135131166) CL (test code = 102 mmol/L 98-108 8034010303) CO2 TOTAL (test code = 25 mmol/L 23-31 2765848284) AGAP (test code = 2-16 0533937739) BUN (test code = 11 mg/dL 7-23 6098380386) GLUCOSE (test code = 270 mg/dL 70-110 H 4137670382) CREATININE (test code = 0.51 mg/dL 0.5-1.04 9847324653) TOTAL BILI (test code = 0.5 mg/dL 0.1-1.4 4479731264) CALCIUM (test code = 9.0 mg/dL 8.6-10.6 7340136011) T PROTEIN (test code = 7.4 g/dL 6.3-8.2 9328207774) ALBUMIN (test code = 4.4 g/dL 3.5-5 1645376709) ALK PHOS (test code = 96 U/L 34-122 9165666325) ALTv (test code = 18 U/L 5-35 1742-6) AST(SGOT) (test code = 21 U/L 13-40 6401601585) eGFR Calculation mL/min/1.73m2 (Non-) (test code = 5594041136) eGFR Calculation mL/min/1.73m2 () (test code = 9523442582) FALLON (test code = FALLON) Association of [...] tests). Lab Interpretation Abnormal (test code = 47691-3) [facility]vineLIPASE2021-02-20 22:32:00 Test Item Value Reference Range Interpretation Comments LIPASE (test code = 4533883573) 121 U/L 0-220 Lab Interpretation (test code = Normal 94586-3) [facility]vineURINALYSIS2021-02-20 22:30:00 Test Item Value Reference Range Interpretation Comments APPEARANCE (test code = Hazy Clear A 8835184878) COLOR (test code = Yellow Yellow 7954059810) PH (test code = 4.8-8.0 6782555613) SP GRAVITY (test code = 1.003-1.030 7244023022) GLU U QUAL (test code = 500 mg/dL Normal A 2240528366) BLOOD (test code = 1+ Negative A 7715770496) KETONES (test code = Negative Negative 4425456949) PROTEIN (test code = 30 mg/dL Negative A 2887-8) UROBILIN (test code = Normal Normal 4069040694) BILIRUBIN (test code = Negative Negative 9801021739) NITRITE (test code = Negative Negative 7761682045) [place] (test code = 75/uL Negative A 6581394126) RBC/HPF (test code = See_Comment H [Autom ated message] [id number]) The system [employer] generated this result transmit jeny reference range : 0 - 3 HPF. The refe rence range was not u sed to interpret th is result as normal/abnormal . WBC/HPF (test code = See_Comment H [Autom ated message] [id number]) The system [employer] generated this result transmit jeny reference range : 0 - 5 HPF. The refe rence range was not u sed to interpret th is result as normal/abnormal . BACTERIA (test code = Few Negative A 1798568979) MUCOUS (test code = Slight Negative LPF A 4319871563) SQ EPITH (test code = HPF 7464939857) Lab Interpretation (test Abnormal code = 46503-3) [facility] WITH [id number] 22:14:00 Test Item Value Reference Range Interpretation [...] (test code = 37.7 fL 39-49.9 L 31565-7) RDW-CV (test code = 13.0 % 12-15.5 788-0) PLT (test code = See_Comment [Automated 777-3) message] The sy stem which generated this result transmitted reference range : 166 - 358 10*3/ ?L. The reference r farrah was not used to interpret this result as normal/abnormal . MPV (test code = 11.1 fL 9.5-12.9 85857-3) NRBC/100 WBC (test See_Comment [Automat ed code = 6122760434) message] The system which generated this result transmitted reference range : 0.0 - 10.0 /100 WBCs. The refer ence range was not u sed to interpret th is result as normal/abnormal . NRBC x10^3 (test code <0.01 See_Comment [Auto mated = 2476078907) message] The s ystem which generated this result transmitted reference range : 10*3/?L. The reference range was not used to interpret this result as normal/abnormal . GRAN MAT (NEUT) % 49.2 % (test code = 770-8) IMM GRAN % (test code 0.70 % = 9891884135) LYMPH % (test code = 41.0 % 736-9) MONO % (test code = 7.0 % 5905-5) EOS % (test code = 1.5 % 713-8) BASO % (test code = 0.6 % 706-2) GRAN MAT x10^3(ANC) 4.07 10*3/uL 1.88-7.09 (test code = 1827948584) IMM GRAN x10^3 (test 0.06 10*3/uL 0-0.06 code = 8309118272) LYMPH x10^3 (test code 3.39 10*3/uL 1.32-3.29 H = 731-0) MONO x10^3 (test code 0.58 10*3/uL 0.33-0.92 = 742-7) EOS x10^3 (test code = 0.12 10*3/uL 0.03-0.39 711-2) BASO x10^3 (test code 0.05 10*3/uL 0.01-0.07 = 704-7) Lab Interpretation Abnormal (test code = 37298-5) [facility]-08-22 07:08:00 Test Item Value Reference Range Interpretation Comments POCT GLU (test code = 1766212217) 290 mg/dL 70-110 H Lab Interpretation (test code = Abnormal 31080-9) [facility] MET[facility]OLIC PANEL (64221)2019-08-22 05:49:00 Test Item Value Reference Range Interpretation Comments NA (test code = 139 mmol/L 135-145 2559089299) K (test code = 4.5 mmol/L 3.5-5 0853865536) CL (test code = 103 mmol/L 98-108 4506138434) CO2 TOTAL (test code = 25 mmol/L 23-31 0705531434) AGAP (test code = 2-16 4686013021) BUN (test code = 7 mg/dL 7-23 9650919350) GLUCOSE (test code = 312 mg/dL 70-110 H 5337043524) CREATININE (test code = 0.55 mg/dL 0.5-1.04 9538357067) TOTAL BILI (test code = 0.7 mg/dL 0.1-1.0 6037303097) CALCIUM (test code = 10.0 mg/dL 8.6-10.6 0395167667) T PROTEIN (test code = 8.4 g/dL 6.3-8.2 H 3256803616) ALBUMIN (test code = 4.7 g/dL 3.5-5 6017567813) ALK PHOS (test code = 82 U/L 34-122 2714086831) ALTv (test code = 18 U/L 5-35 1742-6) AST(SGOT) (test code = 34 U/L 13-40 0075382044) eGFR Calculation mL/min/1.73m2 (Non-) (test code = 4286671952) eGFR Calculation mL/min/1.73m2 () (test code = 3028937227) FALLON (test code = FALLON) Association of [...] tests). Lab Interpretation Abnormal (test code = 35485-4) [facility] 05:49:00 Test Item Value Reference Range Interpretation Comments LIPASE (test code = 9351281745) 174 U/L 0-220 Lab Interpretation (test code = Normal 32461-3) [facility] WITH [id number] 05:35:00 Test Item Value Reference Range Interpretation Comments WBC (test code = See_Comment [Automated 7990-2) message] The sy stem which generated this [...] (test code = 37.7 fL 39-49.9 L 39025-5) RDW-CV (test code = 13.3 % 12-15.5 788-0) PLT (test code = See_Comment [Automated 777-3) message] The sy stem which generated this result transmitted reference range : 166 - 358 10*3/ ?L. The reference r farrah was not used to interpret this result as normal/abnormal . MPV (test code = 11.2 fL 9.5-12.9 94000-4) NRBC/100 WBC (test See_Comment [Automat ed code = 8575554797) message] The system which generated this result transmitted reference range : 0.0 - 10.0 /100 WBCs. The refer ence range was not u sed to interpret th is result as normal/abnormal . NRBC x10^3 (test code <0.01 See_Comment [Auto mated = 3830002297) message] The s ystem which generated this result transmitted reference range : 10*3/?L. The reference range was not used to interpret this result as normal/abnormal . GRAN MAT (NEUT) % 57.4 % (test code = 770-8) IMM GRAN % (test code 0.50 % = 0431253514) LYMPH % (test code = 33.7 % 736-9) MONO % (test code = 6.6 % 5905-5) EOS % (test code = 1.3 % 713-8) BASO % (test code = 0.5 % 706-2) GRAN MAT x10^3(ANC) 6.27 10*3/uL 1.88-7.09 (test code = 6780525313) IMM GRAN x10^3 (test 0.05 10*3/uL 0-0.06 code = 4728399250) LYMPH x10^3 (test code 3.67 10*3/uL 1.32-3.29 H = 731-0) MONO x10^3 (test code 0.72 10*3/uL 0.33-0.92 = 742-7) EOS x10^3 (test code = 0.14 10*3/uL 0.03-0.39 711-2) BASO x10^3 (test code 0.05 10*3/uL 0.01-0.07 = 704-7) Lab Interpretation Abnormal (test code = 82090-7) [facility] (ID NOW RAPID TESTING)2019-08-22 05:28:00 Test Item Value Reference Range Interpretation Comments SARS-CoV-2 Rapid ID NOW Not Detected Not Detected (test code = 18511-1) FALLON (test code = FALLON) ID NOW COVID-19 Assay is an isothermal nucleic acid amplification test intended for the qualitative detection of nucleic acid from SARS-CoV-2 viral RNA in nasopharyngeal (VEGETABLE FARMWORKER) specimens. It is used under Emergency Use [...] indicated. Lab Interpretation Normal (test code = 39436-4) [facility]2020-05-25 05:20:00 Test Item Value Reference Range Interpretation Comments APPEARANCE (test code = Clear Clear 4682750030) COLOR (test code = Straw Yellow A 8616976870) PH (test code = 4.8-8.0 1088151709) SP GRAVITY (test code = 1.003-1.030 6457925044) GLU U QUAL (test code = 500 mg/dL Normal A 4486559060) BLOOD (test code = Negative Negative INTERFERE NCE FROM 2490115534) ASCORBIC ACID M AY CAUSE FALSE NEG ATIVE RESULT KETONES (test code = Negative Negative 3496644769) PROTEIN (test code = Negative Negative 2887-8) UROBILIN (test code = Normal Normal 7689906435) BILIRUBIN (test code = Negative Negative 4272957120) NITRITE (test code = Negative Negative 2344429572) LE[place] PARTH (test code = Negative Negative 0175455546) RBC/HPF (test code = <1 See_Comment [Autom ated message] 9710734361) The system [employer] generated this result transmitted ref erence range: 0 - 3 HP F. The reference range was not used to int erpret this result as normal/abnormal . WBC/HPF (test code = See_Comment [Autom ated message] 8875561631) The system [employer] generated this result transmitted ref erence range: 0 - 5 HP F. The reference range was not used to int erpret this result as normal/abnormal . BACTERIA (test code = Few Negative A 9744158771) MUCOUS (test code = Slight Negative LPF A 8947370820) SQ EPITH (test code = HPF 8782946874) Lab Interpretation Abnormal (test code = 46067-1) [facility] [id number] 17:07:00 Test Item Value Reference Range Interpretation Comments POC-GLUCOSE METER 298 mg/dL 70-110 H TESTED AT [place] [address] ([facility]) (test code = ELIZABETH Flynn [facility] 1538) [address] POCT-GLUCOSE [id number] 12:11:00 Test Item Value Reference Range Interpretation Comments POC-GLUCOSE METER 331 mg/dL 70-110 H Notified Rina Low MD/TESTED ([facility]) (test code = AT [address] 1538) [facility] [address] POCT-GLUCOSE [id number] 10:55:00 Test Item Value Reference Range Interpretation Comments POC-GLUCOSE METER 365 mg/dL 70-110 H TESTED AT [place] [address] ([facility]) (test code = [facility] Rina [facility] 1538) [address] POCT-GLUCOSE [id number] 08:44:00 Test Item Value Reference Range Interpretation Comments POC-GLUCOSE METER 291 mg/dL 70-110 H TESTED AT [place] [address] ([facility]) (test code = CHRISTOK Rina [facility] 1538) [address] LIPID [id number] 05:56:00 Test Item Value Reference Range Interpretation Comments TRIGLYCERIDES ([facility]) (test code = 279 mg/dL 540) CHOLESTEROL ([facility]) (test code = 119 mg/dL 631) HDL CHOLESTEROL ([facility]) (test code 22 mg/dL = 976) LDL CHOLESTEROL CALCULATED ([facility]) 41 mg/dL (test code = 633) Triglyceride Reference Range: Low Risk <150 Borderline 150-199 High Risk 200- 499 Very High Risk >=500Cholesterol Reference Range: Low Risk <200 Borderline 200-239 High Risk >240HDL Cholesterol Reference Range: Low Risk >=60 High Risk <40LDL Cholesterol Reference Range: Optimal <100 Near Optimal 100-129 Borderline 130-159 High 160-189 Very High >=190POCT-GLUCOSE [id number] 21:50:00 Test Item Value Reference Range Interpretation Comments POC-GLUCOSE METER 318 mg/dL 70-110 H TESTED AT [place] [address] ([facility]) (test code = ELIZABETH Rina [facility] 1538) [address] POCT-GLUCOSE [id number] 18:04:00 Test Item Value Reference Range Interpretation Comments POC-GLUCOSE METER 238 mg/dL 70-110 H TESTED AT [place] [address] ([facility]) (test code = ELIZABETH PALACIOS [place] 1538) [address] POCT-GLUCOSE [id number] 12:22:00 Test Item Value Reference Range Interpretation Comments POC-GLUCOSE METER 290 mg/dL 70-110 H TESTED AT [place] [address] ([facility]) (test code = ELIZABETH Flynn [facility] 1538) [address] POCT-GLUCOSE [id number] 09:20:00 Test Item Value Reference Range Interpretation Comments POC-GLUCOSE METER 293 mg/dL 70-110 H TESTED AT [place] [address] ([facility]) (test code = ELIZABETH Flynn [facility] 1538) [address] POCT-GLUCOSE [id number] 21:00:00 Test Item Value Reference Range Interpretation Comments POC-GLUCOSE METER 225 mg/dL 70-110 H TESTED AT [place] [address] ([facility]) (test code = ELIZABETH Flynn [facility] 1538) [address] CT, CAROTID, [id number] 18:01:00FINAL REPORT CT angiogram of the upper [...] Hall Verified Date/Time: 08/30/2017 18:01:31 Reading Location: [address] Neuro Reading Room CT, CTANGGETACHEW [id number] 18:01:00FINAL REPORT CT angiogram of the upper [...] Hall Verified Date/Time: 08/30/2017 18:01:31 Reading Location: [address] Neuro Reading Room POCT-GLUCOSE [id number] 17:21:00 Test Item Value Reference Range Interpretation Comments POC-GLUCOSE METER 256 mg/dL 70-110 H TESTED AT [facility] 28 (JESSICA) (test code = ELIZABETH PALACIOS [place] [address]) [address] POCT-GLUCOSE [id number] 12:00:00 Test Item Value Reference Range Interpretation Comments POC-GLUCOSE METER 289 mg/dL 70-110 H TESTED AT [place] [address] ([facility]) (test code = ELIZABETH Flynn [facility] 1538) [address] BASIC METABOLIC [id number] 10:12:00 Test Item Value Reference Range Interpretation [...] 358) GLUCOSE RANDOM 264 mg/dL 70-105 H (AKER) (test code = 652) CALCIUM (BEAKER) 9.1 mg/dL 8.4-10.2 (test code = 697) EGFR (BEAKER) (test 75 mL/min/1.73 ESTIMA JENY GFR IS code = 1092) sq m NOT ACCURATE CREATININE CLEARANCE IN PREDICTING GLOMERULAR FILTRATION RATE . ESTIMATED GFR I S NOT APPLICABLE FOR DIALYSIS PATIEN TS. POCT-GLUCOSE [id number] 08:42:00 Test Item Value Reference Range Interpretation Comments POC-GLUCOSE METER 259 mg/dL 70-110 H TESTED AT [place] [address] ([facility]) (test code = [facility] 1538) [address] TROPONIN [id number] 06:14:00 Test Item Value Reference Range Interpretation [...] = 2801) RAD, CHEST, 1 VIEW, NON [id number] 04:23:00Reason for exam:->chest painShould this be performed at the bedside?->YesFINAL REPORT Comparison examination: None No pneumothorax, focal pulmonary conso lidation, or significant pleural effusion. Normal cardiomediastinal contours. Normal skeleton and soft tissues. Impression: No acute abnormality. Signed: Ervin Jenkins MDReport Verified Date/Time: 08/30/2017 04:23:04 Reading Location: [address] Reading Room POCT-GLUCOSE [id number] 21:18:00 Test Item Value Reference Range Interpretation Comments POC-GLUCOSE METER 151 mg/dL 70-110 H TEST[facility] AT [place] [address] [facility] (test code = ELIZABETH Flynn [facility] 1538) [address] POCT-GLUCOSE [id number] 17:59:00 Test Item Value Reference Range Interpretation Comments POC-GLUCOSE METER 146 mg/dL 70-110 H TESTED AT [place] [address] ([facility]) (test code = [facility] Rina [facility] 1538) [address] HEMOGLOBIN [id number] 15:56:00 Test Item Value Reference Range Interpretation Comments H[facility]IN A1C [facility] (test code = 13.7 % 4.3-6.1 H 368) CT, BRAIN, WITHOUT [id number] 14:52:00FINAL REPORT CT head without contrast. Comparisons: [...] Hall Verified Date/Time: 08/29/2017 14:52:09 Reading Location: [facility] C013V Neuro Reading Room POCT-GLUCOSE [id number] 14:17:00 Test Item Value Reference Range Interpretation Comments POC-GLUCOSE METER 423 mg/dL 70-110 Notified R Devante MD/TESTED (BEAKER) (test code = AT [facility] [address] [facility] 0378) [facility] 7[address] 0 VITAMIN [id number] 06:48:00 Test Item Value Reference Range Interpretation Comments VITAMIN B12 (BEAKER) (test code = 300 pg/mL 213-816 774) TSH/FREE T4 IF [id number] 06:48:00 Test Item Value Reference Range Interpretation Comments THYROID STIMULATING HORMONE 1.55 uIU/mL 0.35-4.94 (BEAKER) (test code = 772) CBC W/PLT COUNT & AUTO [id number] 05:10:00 Test Item Value Reference Range Interpretation [...] (BEAKER) (test code = 2801) URINALYSIS W/ [id number] 23:32:00 Test Item Value Reference Range Interpretation [...] Occasional SOURCE(BEAKER) (test code = 2795) TROPONIN [id number] 23:12:00 Test Item Value Reference Range Interpretation [...] acute neurological disease, and persistent tachyarrhythmia.BASIC METABOLIC [id number] 23:05:00 Test Item Value Reference Range Interpretation [...] NOT APPLICABLE FOR DIALYSIS PATIEN TS. POCT-GLUCOSE [id number] 20:49:00 Test Item Value Reference Range Interpretation Comments POC-GLUCOSE METER 376 mg/dL 70-110 H Notified R Devante SOUZA/TESTED (JESSICA) (test code = AT [facility] [address] [facility] 8508) [facility] 7703 0"
[2022-03-30 20:24] LABS: Urine Blood Trace-intact (Negative); Urine Glucose Negative (Negative); Urine Protein 1+ (Negative); Urine Specific Gravity 1.015 (1.005-1.030); Urine pH 5.5 (5.0-7.0)
[2022-03-30 20:38] LABS: Urine Bacteria <20 /HPF (<20); Urine Mucus Slight /HPF (None Seen)
[2022-03-30 20:50] LABS: Absolute Lymphocytes (CBC) 2.8 K/uL (0.7-4.9); Hematocrit 39.8 % (36.0-45.0); Lymphocytes % 26.1 % (15.3-44.8); MCV 79.2 fL (80-100); MPV 8.9 fL (7.6-11.3); RBC Red Blood Cell Count 5.02 M/uL (3.86-4.86)
[2022-03-30 21:09] LABS: Albumin 3.5 g/dL (3.4-5.0); Bilirubin Total 0.3 mg/dL (0.2-1.0); Potassium 3.9 mmol/L (3.5-5.1); Protein, Total 7.8 g/dL (6.4-8.2)
--- NOTE | 2022-03-30 21:47 | ER ---
Nurse's Notes [facility] Name: Elly Clarke Age: 52 yrs Sex: Female : 1970 Arrival Date: 03/30/2022 Time: 19:11 Bed 3 Private MD: Diagnosis: Abdominal pain, Generalized;UTI/ Urinary tract infection, site not specified Presentation: 03/30 19:19 Chief complaint: Patient states: I went to [place] for gastroparesis and they told me my kr3 MABLE was greater than 18 and I needed to come to the emergency room for fluids. They tried to start an several IV's without success, the doctor also tried to start an EJ x 3 and was unsuccessful. Chief complaint: Patient states: I was given fentanyl 50 mg, Toradol., and Zofran. Coronavirus screen: Vaccine status: Patient reports receiving the 2nd dose of the covid vaccine. Client denies travel out of the [place] in the last 14 days. Ebola Screen: Patient denies travel to an Ebola-affected area in the 21 days before illness onset. Initial Sepsis Screen: Does the patient meet any 2 criteria? No. Patient's initial sepsis screen is negative. Does the patient have a suspected source of infection? No. Patient's initial sepsis screen is negative. Risk Assessment: Do you want to hurt yourself or someone else? Patient reports no desire to harm self or others. Onset of symptoms was March 29, 2022. 19:19 Method Of Arrival: Ambulatory kr3 19:19 Acuity: HANNAH 3 kr3 Triage Assessment: 19:28 General: Appears in no apparent distress. comfortable, Behavior is calm, cooperative, kr3 appropriate for age. Pain: Complains of pain in abdomen. Historical: - Allergies: 19:27 Claritin (insomnia); kr3 19:27 Compazine (Seizures); kr3 19:27 Demerol (HEART RACING); kr3 19:27 (Hives); kr3 19:27 Morphine (RACING HEART); kr3 - PMHx: 19:27 Anxiety; spinal stenosis; Chronic pain; Arthritis; Chrohns; Diabetes - NIDDM; Dramatic kr3 migraine events; Gastroparesis; High Cholesterol; Hypertension; insomnia; Migraines; Pancreatitis; - PSHx: 19:27 Cholecystectomy; Knee sx x 2; Tonsillectomy; Total abdominal hysterectomy; tumor kr3 removed from septum; mass removed from breast; - Immunization history:: Adult Immunizations not up to date. - Social history:: Smoking status: Patient denies any tobacco usage or history of. Screenin:47 Abuse screen: Denies threats or abuse. Denies injuries from another. Nutritional ha1 screening: No deficits noted. Tuberculosis screening: No symptoms or risk factors identified. 21:47 [facility] ED Fall Risk Assessment (Adult) History of falling in the last 3 months, ha1 including since admission No falls in past 3 months (0 pts) Confusion or Disorientation No (0 pts) Intoxicated or Sedated No (0 pts) Impaired Gait No (0 pts) Mobility Assist Device Used No (0 pt) Altered Elimination No (0 pt) Score/Fall Risk Level 0 - 2 = Low Risk Oriented to surroundings, Maintained a safe environment, Educated pt \T\ family on fall prevention, incl call for assistance when getting out of bed, Hourly rounding (assess needs \T\ fall precautionary measures) done. Assessment: 21:44 General: Appears uncomfortable, Behavior is calm, cooperative. Pain: Complains of pain ha1 in mid epigastric Pain does not radiate. Pain currently is 7 out of 10 on a pain scale. Quality of pain is described as burning. Neuro: Level of Consciousness is awake, alert, obeys commands, Oriented to person, place, time, situation. Cardiovascular: Patient's skin is warm and dry. Respiratory: Airway is patent Trachea midline Respiratory effort is even, unlabored, Respiratory pattern is regular, symmetrical. GI: Abdomen is non-distended, obese, Bowel sounds present X 4 quads. Abd is soft and non tender X 4 quads. : No signs and/or symptoms were reported regarding the genitourinary system. EENT: No deficits noted. No signs and/or symptoms were reported regarding the EENT system. Derm: Skin is pink, warm \T\ dry. Musculoskeletal: Circulation, motion, and sensation intact. Range of motion: intact in all extremities. Vital Signs: 19:19 BP 146 / 116; Pulse 98; Resp 18; Temp 97.5(TE); Pulse Ox 97% ; Weight 110.68 kg; Height kr3 5 ft. 7 in. (170.18 cm); Pain 3/10; 21:46 BP 162 / 89; Pulse 90; Resp 17 S; Pulse Ox 98% on R/A; ha1 19:19 Body Mass Index 38.22 (110.68 kg, 170.18 cm) kr3 ED Course: 19:11 Patient arrived in ED. ja2 19:20 [facility]ira [facility]imes [facility]-C [facility]. snw 19:20 Kam Parker MD is Attending Physician. snw 19:23 Triage completed. kr3 20:44 Initial lab(s) drawn, by me, sent to lab. Inserted saline lock: 22 gauge in left mb4 antecubital area, using aseptic technique. Blood collected. IV discontinued, bleeding controlled, Pressure dressing applied, IV discontinued due to infiltration. 21:37 Agus Hernandes, RN is Primary Nurse. as6 21:43 Arm band placed on. as6 21:47 Patient has correct armband on for positive identification. Placed in gown. Bed in low ha1 position. Call light in reach. Side rails up X 1. 21:53 No provider procedures requiring assistance completed. Patient did not have IV access as6 during this emergency room visit. Administered Medications: 21:52 Drug: Rocephin (cefTRIAXone) 1 grams Route: IM; Site: right ventrogluteal; as6 21:53 Follow up: Response: No adverse reaction as6 Medication: 21:53 VIS not applicable for this client. as6 Outcome: 21:46 Discharge ordered by . snw 21:53 Discharged to home ambulatory. as6 21:53 Discharge instructions given to patient, Instructed on discharge instructions, follow up and referral plans. medication usage, Demonstrated understanding of instructions, follow-up care, medications, Prescriptions given X 2. 21:53 Condition: stable as6 21:53 Patient left the ED. as6 Signatures: Shira Jaimes FNP-C SHADOW [employer]APH WEIGHT OPERATOR-Csnw Xochitl Mancuso mb4 Mer Mina ja2 Agus Hernandes, NAT RN as6 Dee Melchor RN RN ha1 Rowan Mon RN RN kr3
--- NOTE | 2022-03-30 21:47 | EDPHYS ---
Physician Documentation [facility] Name: Elly Clarke Age: 52 yrs Sex: Female : 1970 Arrival Date: 03/30/2022 Time: 19:11 Bed 3 Private MD: ED Physician Kam Parker HPI: 03/30 21:49 This 52 yrs old Female presents to ER via Ambulatory with complaints of Abdominal Pain. snw 21:49 The patient presents with abdominal pain that is diffuse. Onset: The symptoms/episode snw began/occurred acutely. The symptoms do not radiate. Associated signs and symptoms: Pertinent positives: nausea. The symptoms are described as achy. Severity of pain: At its worst the pain was moderate. The patient has experienced similar episodes in the past, chronically. pt was at [facility] and says they asked her to drink salt water and told her to come to the ED because her INR as greater than 18. Pt is not on blood thinners, is not having ecchymosis, gingival bleeding. Historical: - Allergies: 19:27 Claritin (insomnia); kr3 19:27 Compazine (Seizures); kr3 19:27 Demerol (HEART RACING); kr3 19:27 (Hives); kr3 19:27 Morphine (RACING HEART); kr3 - PMHx: 19:27 Anxiety; spinal stenosis; Chronic pain; Arthritis; Chrohns; Diabetes - NIDDM; Dramatic kr3 migraine events; Gastroparesis; High Cholesterol; Hypertension; insomnia; Migraines; Pancreatitis; - PSHx: 19:27 Cholecystectomy; Knee sx x 2; Tonsillectomy; Total abdominal hysterectomy; tumor kr3 removed from septum; mass removed from breast; - Immunization history:: Adult Immunizations not up to date. - Social history:: Smoking status: Patient denies any tobacco usage or history of. ROS: 21:51 Constitutional: Negative for fever, chills, and weight loss, Eyes: Negative for injury, snw pain, redness, and discharge, ENT: Negative for injury, pain, and discharge, Neck: Negative for injury, pain, and swelling, Cardiovascular: Negative for chest pain, palpitations, and edema, Respiratory: Negative for shortness of breath, cough, wheezing, and pleuritic chest pain, Back: Negative for injury and pain, : Negative for injury, bleeding, discharge, and swelling, MS/Extremity: Negative for injury and deformity, Skin: Negative for injury, rash, and discoloration, Neuro: Negative for headache, weakness, numbness, tingling, and seizure, Psych: Negative for depression, anxiety, suicide ideation, homicidal ideation, and hallucinations. 21:51 Abdomen/GI: Positive for abdominal pain, nausea and vomiting. Exam: 21:52 Constitutional: This is a well developed, well nourished patient who is awake, alert, snw and in no acute distress. Head/Face: Normocephalic, atraumatic. Eyes: Pupils equal round and reactive to light, extra-ocular motions intact. Lids and lashes normal. Conjunctiva and sclera are non-icteric and not injected. Cornea within normal limits. Periorbital areas with no swelling, redness, or edema. ENT: Nares patent. No nasal discharge, no septal abnormalities noted. Tympanic membranes are normal and external auditory canals are clear. Oropharynx with no redness, swelling, or masses, exudates, or evidence of obstruction, uvula midline. Mucous membranes moist. Neck: Trachea midline, no thyromegaly or masses palpated, and no cervical lymphadenopathy. Supple, full range of motion without nuchal rigidity, or vertebral point tenderness. No Meningismus. Chest/axilla: Normal chest wall appearance and motion. Nontender with no deformity. No lesions are appreciated. Cardiovascular: Regular rate and rhythm with a normal S1 and S2. No gallops, murmurs, or rubs. Normal PMI, no JVD. No pulse deficits. Respiratory: Lungs have equal breath sounds bilaterally, clear to auscultation and percussion. No rales, rhonchi or wheezes noted. No increased work of breathing, no retractions or nasal flaring. Abdomen/GI: Soft, non-tender, with normal bowel sounds. No distension or tympany. No guarding or rebound. No evidence of tenderness throughout. Back: No spinal tenderness. No costovertebral tenderness. Full range of motion. Skin: Warm, dry with normal turgor. Normal color with no rashes, no lesions, and no evidence of cellulitis. MS/ Extremity: Pulses equal, no cyanosis. Neurovascular intact. Full, normal range of motion. Neuro: Awake and alert, GCS 15, oriented to person, place, time, and situation. Cranial nerves II-XII grossly intact. Motor strength 5/5 in all extremities. Sensory grossly intact. Cerebellar exam normal. Normal gait. Psych: Awake, alert, with orientation to person, place and time. Behavior, mood, and affect are within normal limits. Vital Signs: 19:19 BP 146 / 116; Pulse 98; Resp 18; Temp 97.5(TE); Pulse Ox 97% ; Weight 110.68 kg; Height kr3 5 ft. 7 in. (170.18 cm); Pain 3/10; 21:46 BP 162 / 89; Pulse 90; Resp 17 S; Pulse Ox 98% on R/A; ha1 19:19 Body Mass Index 38.22 (110.68 kg, 170.18 cm) kr3 MDM: 20:26 Patient medically screened. zoe 21:48 Data reviewed: vital signs, nurses notes. Data interpreted: Pulse oximetry: on room air snw is 98 %. Interpretation: normal. Counseling: I had a detailed discussion with the patient and/or guardian regarding: the historical points, exam findings, and any diagnostic results supporting the discharge/admit diagnosis, the presence of at least one elevated blood pressure reading (>120/80) during this emergency department visit, lab results, the need for outpatient follow up, for definitive care, a family practitioner, a umbrella finisher, to return to the emergency department if symptoms worsen or persist or if there are any questions or concerns that arise at home. Special discussion: Based on the patient's Hx, exam, and Dx evaluation, there is no indication for emergent surgery or inpatient Tx. It is understood by the patient/guardian that if the Sx's persist or worsen they need to return immediately for re-evaluation. Based on the history and exam findings, there is no indication for further emergent testing or inpatient evaluation. I discussed with the patient/guardian the need to see the umbrella finisher for further evaluation of the symptoms. I discussed with the patient/guardian the need to see the primary care provider for further evaluation of the symptoms. 03/30 19:33 Order name: CBC with Diff; Complete Time: 21:08 snw 03/30 19:33 Order name: CMP; Complete Time: 21:09 snw 03/30 19:33 Order name: Lipase; Complete Time: 21:09 snw 03/30 19:33 Order name: Urine Culture snw 03/30 19:33 Order name: Urine Microscopic Only; Complete Time: 21:39 snw 03/30 20:24 Order name: Urine Dipstick-Ancillary; Complete Time: 20:28 EDMS 03/30 19:33 Order name: IV Saline Lock; Complete Time: 21:09 snw 03/30 19:33 Order name: Labs collected and sent; Complete Time: 21:09 snw 03/30 19:33 Order name: Urine Dipstick-Ancillary (obtain specimen); Complete Time: 20:24 snw Administered Medications: 21:52 Drug: Rocephin (cefTRIAXone) 1 grams Route: IM; Site: right ventrogluteal; as6 21:53 Follow up: Response: No adverse reaction as6 Disposition Summary: 03/30/22 21:46 Discharge Ordered Location: Home snw Condition: Stable snw Diagnosis - Abdominal pain, Generalized snw - UTI/ Urinary tract infection, site not specified snw Followup: snw - With: Emergency Department - When: As needed - Reason: Worsening of condition Followup: snw - With: Private Physician - When: 2 - 3 days - Reason: Recheck today's complaints, Continuance of care, Re-evaluation by your physician Discharge Instructions: - Discharge Summary Sheet snw - Abdominal Pain, Adult snw - Urinary Tract Infection, Adult snw - Rehydration, Adult snw Forms: - Medication Reconciliation Form snw - Thank You Letter snw - Antibiotic Education snw - Prescription Opioid Use snw - Work release form snw Prescriptions: - Erythromycin 500 mg Oral Tablet - take 1 tablet by ORAL route every 8 hours for 10 days; 30 tablet; Refills: 0, snw Product Selection Permitted - Pepcid 20 mg Oral Tablet - take 1 tablet by ORAL route once daily; 20 tablet; Refills: 0, Product snw Selection Permitted Signatures: Dispatcher [employer] Kam Corrales MD MD cha Waters, Shelly, JAQUAN-C PROBLEM MANAGER-Agus Tilley, RN RN as6 Rowan Mon RN RN kr3
[2022-03-30] MEDS ORDERED: LIDOCAINE 1% MPF 2 ML AMPULE ONE (21:50)
[2022-03-30] MEDS ORDERED: CEFTRIAXONE 1000 MG/VIAL ONE (21:50)
[2022-03-30 22:14] VITALS: TEMP 97.5
[2022-03-30 22:19] VITALS: BP 162/89; O2SAT 98
== END 2022-03-30 21:53 | disposition home or self-care (01) ==
LOC: ER 19:06
DX: N39.0 Urinary tract infection, site not specified (principal); E11.9 Type 2 diabetes mellitus without complications; I10 Essential (primary) hypertension; Z88.5 Allergy status to narcotic agent; Z88.8 Allergy status to other drugs, medicaments and biological substances
CPT/HCPCS: 36415; 80053; 81003; 81015; 83690; 85025; 87077; 87086; 87088; 87186; 96372; 99284

== ENCOUNTER 2022-11-12 16:42 | Emergency (ER) | payer OTHER ==
--- OUTSIDE RECORDS SUMMARY | 2022-11-12 17:03 | XMS REPORT | Continuity of Care Document ---
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 palms of hands gently; Do not shake vigorously . WASTE: F/P - Black; E - Municipal Trash Bin Stable for 28 days at room temperatur e. Expires in days from ____Date Dextrose 0 No 25 mL, Memoria 50% Syringe 7-25 Route: l (D50W) 19:10: IVP, Dosing Weight 96.8, kg, PRN, PRN Blood Glucose Results, Start date: 10/21/20 14:10:00 CDT, Duration: 30 day, Stop date: 11/20/20 14:09:00 CDT Glucagon 2020-0 No 1 mg, Memoria 7-25 Route: IM, l 19:10: PRN, Dosing Weight 96.8, kg, PRN Blood Glucose Results, Start date: 10/21/20 14:10:00 CDT, Duration: 30 day, Stop date: 11/20/20 14:09:00 CDT Insulin 0 No Notes: Memoria Lispro 7-25 (Same as: l 19:10: Humalog) [place] 00 Roll in palms of hands gently; Do not shake vigorously . WASTE: F/P - Black; E - Municipal Trash Bin Stable for 28 days at room temperatur e. Expires in days from ____Date Dextrose No 25 mL, Memoria 50% Syringe 7-25 Route: l (D50W) 19:10: IVP, Daniel 00 Dosing Weight 96.8, kg, PRN, PRN Blood Glucose Results, Start date: 10/21/20 14:10:00 CDT, Duration: 30 day, Stop date: 11/20/20 14:09:00 CDT Glucagon No 1 mg, Memoria 7-25 Route: IM, l 19:10: PRN, Daniel 00 Dosing Weight 96.8, kg, PRN Blood Glucose Results, Start date: 10/21/20 14:10:00 CDT, Duration: 30 day, Stop date: 11/20/20 14:09:00 CDT Insulin No Notes: Memoria Lispro 7-25 (Same as: l 19:10: Humalog) Roll in palms of hands gently; Do not shake vigorously . WASTE: F/P - Black; E - Municipal Trash Bin Stable for 28 days at room temperatur e. Expires in days from ____Date Reglan No Notes: Memoria 7-25 (Same as: l 16:30: Reglan) Daniel Reglan No Notes: Memoria 7-25 (Same as: l 16:30: Reglan) Daniel Reglan No Notes: Memoria 7-25 (Same as: l 16:30: Reglan) pantoprazol No Notes: For Memoria e 7-24 IV push l 21:30: reconstitu [place] 00 te with 10 ml 0.9% sodium chloride and push over 2 minutes. (Same as: Protonix) pantoprazol No Notes: For Memoria e 7-24 IV push l 21:30: reconstitu Daniel 00 te with 10 ml 0.9% sodium chloride and push over 2 minutes. (Same as: Protonix) pantoprazol No Notes: For Memoria e 7-24 IV push l 21:30: reconstitu Daniel 00 te with 10 ml 0.9% sodium chloride and push over 2 minutes. (Same as: Protonix) Cipro No Notes: Do Memoria 7-24 not l 20:00: refrigerat Daniel 00 e Flagyl No Notes: Memoria 7-24 (Same as: l 20:00: Flagyl) Avoid alcohol. Cipro No Notes: Do Memoria 7-24 not l 20:00: refrigerat e Flagyl No Notes: Memoria 7-24 (Same as: l 20:00: Flagyl) Avoid alcohol. Cipro No Notes: Do Memoria 7-24 not l 20:00: refrigerat [place] 00 e Flagyl No Notes: Memoria 7-24 (Same as: l 20:00: Flagyl) Avoid alcohol. Clonazepam No 3 mg, PO, Me moria 7-24 BID, 0 l 19:54: Refill(s) Clonazepam No 3 mg, PO, Me moria 7-24 BID, 0 l 19:54: Refill(s) Clonazepam No 3 mg, PO, Me moria 7-24 BID, 0 l 19:54: Refill(s) Ambien Yes 10 mg, PO, Memor ia 7-24 Bedtime, 0 l 19:53: Refill(s) Ambien Yes 10 mg, PO, Memor ia 7-24 Bedtime, 0 l 19:53: Refill(s) Ambien Yes 10 mg, PO, Memor ia 7-24 Bedtime, 0 l 19:53: Refill(s) Phenergan 0 No 12.5 mg, Jose Luis antonio 7-24 50 mL, l 19:42: Route: IV Daniel 00 Central, Drug form: SOLN, Q6H, Dosing Weight 96.8, kg, PRN Nausea & Vomiting, Start date: 10/20/20 14:42:00 CDT, Duration: 30 day, Stop date: 11/19/20 14:41:00 CDT, 0 Phenergan 2020-0 No 12.5 mg, Jose Luis antonio 7-24 50 mL, l 19:42: Route: IV [place] 00 Central, Drug form: SOLN, Q6H, Dosing Weight 96.8, kg, PRN Nausea & Vomiting, Start date: 10/20/20 14:42:00 CDT, Duration: 30 day, Stop date: 11/19/20 14:41:00 CDT, 0 Phenergan 2020-0 No 12.5 mg, Jose Luis antonio 7-24 50 mL, l 19:42: Route: IV [place] 00 Central, Drug form: SOLN, Q6H, Dosing Weight 96.8, kg, PRN Nausea & Vomiting, Start date: 10/20/20 14:42:00 CDT, Duration: 30 day, Stop date: 11/19/20 14:41:00 CDT, 0 Dilaudid 2020-0 No Notes: Memoria 7-24 Same as l 19:24: Dilaudid [place] Dilaudid 2020-0 No Notes: Memoria 7-24 Same as l 19:24: Dilaudid [place] 00 Dilaudid 2020-0 No Notes: Memoria 7-24 Same as l 19:24: Dilaudid Daniel Dextrose 2020-0 No 12.5 gm, Memor ia 50% Syringe 10-20 25 mL, l (D50W) 19:23: Route: Daniel IVP, Drug Form: INJ, Dosing Weight 96.8, kg, PRN, PRN Blood Glucose Results, Start date: 10/20/20 14:23:00 CDT, Duration: 30 day, Stop date: 11/19/20 14:22:00 CDT, 0 Glucagon 2021-0 No 1 mg, Memoria 7-24 Route: IM, l 19:23: Drug form: [place] 00 PDR/INJ, PRN, Dosing Weight 96.8, kg, PRN Blood Glucose Results, Start date: 10/20/20 14:23:00 CDT, Duration: 30 day, Stop date: 11/19/20 14:22:00 CDT, 0 Insulin 202-0 No Notes: Memoria Lispro 7-24 (Same as: l 19:23: Humalog) [place] 00 Roll in palms of hands gently; Do not shake vigorously . WASTE: F/P - Black; E - Municipal Trash Bin Stable for 28 days at room temperatur e. Expires in days from ____Date Dextrose 2020-0 No 12.5 gm, Memor ia 50% Syringe 10-20 25 mL, l (D50W) 19:23: Route: Daniel 00 IVP, Drug Form: INJ, Dosing Weight 96.8, kg, PRN, PRN Blood Glucose Results, Start date: 10/20/20 14:23:00 CDT, Duration: 30 day, Stop date: 11/19/20 14:22:00 CDT, 0 Glucagon 2020-0 No 1 mg, Memoria 7-24 Route: IM, l 19:23: Drug form: Daniel 00 PDR/INJ, PRN, Dosing Weight 96.8, kg, PRN Blood Glucose Results, Start date: 10/20/20 14:23:00 CDT, Duration: 30 day, Stop date: 11/19/20 14:22:00 CDT, 0 Insulin 2020-0 No Notes: Memoria Lispro 7-24 (Same as: l 19:23: Humalog) [place] 00 Roll in palms of hands gently; Do not shake vigorously . WASTE: F/P - Black; E - Municipal Trash Bin Stable for 28 days at room temperatur e. Expires in days from ____Date Dextrose 2020-0 No 12.5 gm, Memor ia 50% Syringe 7- 25 mL, l (D50W) 19:23: Route: [place] 00 IVP, Drug Form: INJ, Dosing Weight 96.8, kg, PRN, PRN Blood Glucose Results, Start date: 10/20/20 14:23:00 CDT, Duration: 30 day, Stop date: 11/19/20 14:22:00 CDT, 0 Glucagon 2020-0 No 1 mg, Memoria 7-24 Route: IM, l 19:23: Drug form: Daniel 00 PDR/INJ, PRN, Dosing Weight 96.8, kg, PRN Blood Glucose Results, Start date: 10/20/20 14:23:00 CDT, Duration: 30 day, Stop date: 11/19/20 14:22:00 CDT, 0 Insulin 2020-0 No Notes: Memoria Lispro 7-24 (Same as: l 19:23: Humalog) Roll in palms of hands gently; Do not shake vigorously . WASTE: F/P - Black; E - Municipal Trash Bin Stable for 28 days at room temperatur e. Expires in days from ____Date normal No 1,000 mL, Memori a saline 0.9% 7-24 Rate: 75 l IV 1,000 mL 18:34: ml/hr, Herm Infuse over: 13.3 hr, Route: IV, Dosing Weight 96.8 kg, Total Volume: 1,000, Start date: 10/20/20 13:34:00 CDT, Duration: 30 day, Stop date: 11/19/20 13:33:00 CDT, BSA: 2.16 m2, 0 normal 2020-0 No 1,000 mL, Memori a saline 0.9% 7-24 Rate: 75 l IV 1,000 mL 18:34: ml/hr, Herm Infuse over: 13.3 hr, Route: IV, Dosing Weight 96.8 kg, Total Volume: 1,000, Start date: 10/20/20 13:34:00 CDT, Duration: 30 day, Stop date: 11/19/20 13:33:00 CDT, BSA: 2.16 m2, 0 normal 2020-0 No 1,000 mL, Memori a saline 0.9% 7-24 Rate: 75 l IV 1,000 mL 18:34: ml/hr, Infuse over: 13.3 hr, Route: IV, Dosing Weight 96.8 kg, Total Volume: 1,000, Start date: 10/20/20 13:34:00 CDT, Duration: 30 day, Stop date: 11/19/20 13:33:00 CDT, BSA: 2.16 m2, 0 Dextrose 2020-0 No 25 mL, Memoria 50% Syringe 10-20 Route: l (D50W) 18:33: IVP, Dosing Weight 96.8, kg, PRN, PRN Blood Glucose Results, Start date: 10/20/20 13:33:00 CDT, Duration: 30 day, Stop date: 11/19/20 13:32:00 CDT Glucagon 2020-0 No 1 mg, Memoria 10-20 Route: IM, l 18:33: PRN, Dosing Weight 96.8, kg, PRN Blood Glucose Results, Start date: 10/20/20 13:33:00 CDT, Duration: 30 day, Stop date: 11/19/20 13:32:00 CDT Ondansetron 0 No Notes: Jose Luis antonio 10-20 (Same as: l 18:33: Zofran) MEDICATION WASTE Product Size: 4 mg Product Wasted: ___ mg Acetaminoph No Notes: Do M emoria en 10-20 not exceed l 18:33: 4 gm/day. (Same as: Tylenol) Dextrose 2020-0 No 25 mL, Memoria 50% Syringe 10-20 Route: l (D50W) 18:33: IVP, Dosing Weight 96.8, kg, PRN, PRN Blood Glucose Results, Start date: 10/20/20 13:33:00 CDT, Duration: 30 day, Stop date: 11/19/20 13:32:00 CDT Glucagon 2020-0 No 1 mg, Memoria 10-20 Route: IM, l 18:33: PRN, Dosing Weight 96.8, kg, PRN Blood Glucose Results, Start date: 10/20/20 13:33:00 CDT, Duration: 30 day, Stop date: 11/19/20 13:32:00 CDT Ondansetron No Notes: Jose Luis antonio 10-20 (Same as: l 18:33: Zofran) MEDICATION WASTE Product Size: 4 mg Product Wasted: ___ mg Acetaminoph No Notes: Do M emoria en 10-20 not exceed l 18:33: 4 gm/day. (Same as: Tylenol) Dextrose No 25 mL, Memoria 50% Syringe 10-20 Route: l (D50W) 18:33: IVP, Dosing Weight 96.8, kg, PRN, PRN Blood Glucose Results, Start date: 10/20/20 13:33:00 CDT, Duration: 30 day, Stop date: 11/19/20 13:32:00 CDT Glucagon No 1 mg, Memoria 10-20 Route: IM, l 18:33: PRN, Dosing Weight 96.8, kg, PRN Blood Glucose Results, Start date: 10/20/20 13:33:00 CDT, Duration: 30 day, Stop date: 11/19/20 13:32:00 CDT Ondansetron No Notes: Jose Luis antonio 10-20 (Same as: l 18:33: Zofran) MEDICATION WASTE Product Size: 4 mg Product Wasted: ___ mg Acetaminoph No Notes: Do M emoria en 10-20 not exceed l 18:33: 4 gm/day. (Same as: Tylenol) FENTanyl PF 2020- No 50ug 50 mcg, Un [place] (SUBLIMAZE 5-10 05-10 Slow IV ity o f (PF)) 05:45: 04:39 Push, [place] injection 00 :00 ONCE, 1 Medical 50 mcg dose, Mon Branch 08/06/20 at 0045, Routine iopamidol 2020- No [id number] 100mL 100 mL, Univers (ISOVUE 5-10 05-10 Intravenou ity o f 370-500 mL) 04:45: 03:27 s, ONCE, 1 [place] injection 00 :00 dose, [facility] 100 mL 08/05/20 at Branch 2345, Routine ondansetron 2020- No 4mg 4 mg, Slow Univers (ZOFRAN 5-10 05-10 IV Push, ity of (PF)) 04:15: 03:17 ONCE, 1 [place] injection 4 00 :00 dose, [facility] ical mg 08/05/20 at Branch 2315, MANFRED FENTanyl PF No 50ug 50 mcg, Un [place] (SUBLIMAZE 5-10 05-10 Slow IV ity o f (PF)) 04:15: 03:17 Push, [place] injection 00 :00 ONCE, 1 Medical 50 mcg dose, [facility] 08/05/20 at 2315, Routine cefTRIAXone No 1000mg 1,000 mg, Univers (ROCEPHIN) 5 05-10 IV ity of 1,000 mg in 04:00: 03:51 Piggyback, [place] NaCl 0.9% 00 :00 ONCE, 1 Medical (NS) 50 mL dose, [facility] Bran ch MINI-BAG 08/05/20 at 2300, 50 mL
Reas on for Anti-Infec tive: Documented Infection< br>Documen jesse Infection Site: Urine
D uration of Therapy: 7 days dicyclomine No 20mg 20 mg, Uni vers (BENTYL) 5-10 05-10 Intramuscu ity of injection 03:15: 02:50 lar, ONCE, [place] 20 mg 00 :00 1 dose, Medical [facility] 08/05/20 [place] at 2215, Routine NaCl 0.9% 2020- No 1000mL at 999 Uni vers (NS) bolus 5-10 05-10 mL/hr, ity of infusion 02:45: 04:21 1,000 mL, Roberto as 1,000 mL 00 :00 IV Medical Infusion, Branch ONCE, 1 dose, [facility] 08/05/20 at 2145, MANFRED NaCl 0.9% 2020- No 1000mL at 999 Uni vers (NS) bolus 5-10 05-10 mL/hr, ity of infusion 02:15: 04:21 1,000 mL, Roberto as 1,000 mL 00 :00 IV Medical Infusion, Branch ONCE, 1 dose, 08/05/20 at 2115, MANFRED proMETHazin 0 Yes [id number] 25mg Take 1 Univers e 25 mg 5-09 tablet by ity of tablet 00:00: mouth [place] 00 every 6 Medical (six) Branch hours as needed for N/V unresponsi ve to Ondansetro n. zolpidem Yes [id number] 12.5mg Take 1 U nivers 12.5 mg CR 5-09 tablet by ity of tablet 00:00: mouth at [place] 00 bedtime as Medical needed for Branch Sleep. zolpidem 0 Yes [id number] 12.5mg Take 1 U nivers 12.5 mg CR 5-09 tablet by ity of tablet 00:00: mouth at [place] 00 bedtime as Medical needed for Branch Sleep. zolpidem Yes [id number] 12.5mg Take 1 U nivers 12.5 mg CR 5-09 tablet by ity of tablet 00:00: mouth at [place] 00 bedtime as Medical needed for Branch Sleep. zolpidem Yes [id number] 12.5mg Take 1 U nivers 12.5 mg CR 5-09 tablet by ity of tablet 00:00: mouth at [place] 00 bedtime as Medical needed for Branch Sleep. zolpidem Yes [id number] 12.5mg Take 1 U nivers 12.5 mg CR 5-09 tablet by ity of tablet 00:00: mouth at [place] 00 bedtime as Medical needed for Branch Sleep. proMETHazin 2020- No [id number] 25mg Take 1 Univers e 25 mg 5- 08-06 tablet by ity of tablet 00:00: 00:00 mouth [place] 00 :00 every 6 Medical (six) Branch hours as needed for N/V unresponsi ve to Ondansetro n. dicyclomine 2020- No [id number] 20mg Take 1 Univers 20 mg 5-12 02-17 tablet by ity of tablet 00:00: 04:59 mouth 4 [place] 00 :00 (four) Medical times Branch daily for 7 days. cefdinir 0 2020- No [id number] 300mg Take 1 U nivers 300 mg 5-09 05-17 capsule by ity of capsule 00:00: 04:59 mouth 2 [place] 00 :00 (two) Medical times Branch daily for 7 days. insulin No 8U 8 Units, Unive rs regular 07-23 Slow IV ity of human 01:30: 00:52 Push, [place] (HUMULIN R) 00 :00 ONCE, 1 Medic al injection 8 dose, [facility] Units 07/22/20 at 2030, Routine dexamethaso No 10mg 10 mg, IV Univers ne 07-23 Push, ity of (DECADRON 01:15: 00:18 ONCE, 1 [place] PHOSPHATE) 00 :00 dose, [facility] Medi nicole injection 07/22/20 at Bran ch 10 mg 2014, STAT NaCl 0.9% 2020- No 1000mL at 999 Uni vers (NS) bolus 07-23 mL/hr, ity of infusion 00:15: 01:01 1,000 mL, Roberto as 1,000 mL 00 :00 IV Medical Infusion, Branch ONCE, 1 dose, [facility] 07/22/20 at 1915, MANFRED ketorolac No 30mg 30 mg, [facility] ([facility]OL) 07-22 Slow IV ity of injection 23:45: 22:55 Push, [place] 30 mg 00 :00 ONCE, 1 Medical dose, [facility] 07/22/20 at 1845, Routine
vulcan crewmember approving Restricted medication : MAYTE LAMB metoclopram 2020- No 10mg 10 mg, Uni vers meredith HCl 07-22- Slow IV ity of (REGLAN) 23:45: 22:55 Push, [place] injection 00 :00 ONCE, 1 Medical 10 mg dose, [facility] 07/22/20 at 1845, MANFRED NaCl 0.9% 2020- No 1000mL at 999 Uni vers (NS) bolus 07-22- mL/hr, ity of infusion 22:45: 00:17 1,000 mL, Roberto as 1,000 mL 00 :00 IV Medical Infusion, Branch ONCE, 1 dose, [facility] 07/22/20 at 1745, MANFRED ibuprofen Yes [id number] 800mg Take 1 U nivers 800 mg 4-25 tablet by ity of tablet 00:00: mouth [place] 00 every 6 Medical (six) Branch hours as needed for Pain (scale 4-6). traMADoL 50 2020-0 Yes [id number] 50mg Take 1 Univ ers mg tablet 4-25 tablet by ity o f 00:00: mouth [place] 00 every 6 Medical (six) Branch hours as needed for Pain (scale 7-10). Indication s: acute pain ibuprofen 2020-0 Yes [id number] 800mg Take 1 U nivers 800 mg 4-25 tablet by ity of tablet 00:00: mouth [place] 00 every 6 Medical (six) Branch hours as needed for Pain (scale 4-6). traMADoL 50 2020-0 Yes [id number] 50mg Take 1 Univ ers mg tablet 4-25 tablet by ity o f 00:00: mouth [place] 00 every 6 Medical (six) Branch hours as needed for Pain (scale 7-10). Indication s: acute pain ibuprofen 0 Yes [id number] 800mg Take 1 U nivers 800 mg 4-25 tablet by ity of tablet 00:00: mouth [place] 00 every 6 Medical (six) Branch hours as needed for Pain (scale 4-6). ibuprofen 2020-0 Yes [id number] 800mg Take 1 U nivers 800 mg 4-25 tablet by ity of tablet 00:00: mouth [place] 00 every 6 Medical (six) Branch hours as needed for Pain (scale 4-6). ibuprofen 2020-0 Yes [id number] 800mg Take 1 U nivers 800 mg 4-25 tablet by ity of tablet 00:00: mouth [place] 00 every 6 Medical (six) Branch hours as needed for Pain (scale 4-6). ibuprofen 0 Yes [id number] 800mg Take 1 U nivers 800 mg [...] 7-10). Indication s: acute pain traMADoL 50 2022020- No [id number] 50mg Take 1 Uni vers mg tablet 4-25 04-25 tablet by ity of 00:00: 00:00 mouth [place] 00 :00 every 6 Medical (six) Branch hours as needed for Pain (scale 7-10). Indication s: acute pain ibuprofen 2020- No [id number] 800mg Take 1 Univers 800 mg 4-25 [...] 05/19/20 at 1800, STAT proMETHazin 2020-0 Yes [id number] 25mg Take 1 Univers e 25 mg [...] Indication s: acute pain proMETHazin 2020-0 Yes [id number] 25mg Insert 1 Univers e 25 mg 2-20 Suppositor ity of suppository 00:00: y into [place] 00 rectum Medical every 4 Branch (four) hours as needed for Nausea and Vomiting (N/V). proMETHazin 2020-0 Yes [id number] 25mg Take 1 Univers e 25 mg [...] Indication s: acute pain proMETHazin 2020-0 Yes [id number] 25mg Insert 1 Univers e 25 mg 2-20 Suppositor ity of suppository 00:00: y into [place] 00 rectum Medical every 4 Branch (four) hours as needed for Nausea and Vomiting (N/V). proMETHazin 2020-0 Yes [id number] 25mg Take 1 Univers e 25 mg [...] Indication s: acute pain proMETHazin 2020-0 Yes [id number] 25mg Insert 1 Univers e 25 mg 2-20 Suppositor ity of suppository 00:00: y into [place] 00 rectum Medical every 4 Branch (four) hours as needed for Nausea and Vomiting (N/V). proMETHazin 2020-0 Yes [id number] 25mg Take 1 Univers e 25 mg [...] (scale 7-10). Indication s: acute pain proMETHazin 2021-0 Yes [id number] 25mg Insert 1 Univers e 25 mg 2-20 Suppositor ity of suppository 00:00: y into [place] 00 rectum Medical every 4 Branch (four) hours as needed for Nausea and Vomiting (N/V). proMETHazin 2020- No [id number] 25mg Take 1 Univers e 25 mg [...] Indication s: acute pain proMETHazin 2020- No [id number] 25mg Insert 1 Univers e 25 mg 2-20 08-06 Suppositor ity o f suppository 00:00: 00:00 y into [place] as 00 :00 rectum Medical every 4 Branch (four) hours as needed for Nausea and Vomiting (N/V). ibuprofen 2019-03 Yes [id number] 600mg Take 1 Univers 600 mg 2-12 tablet by ity of tablet 00:00: mouth [place] 00 every 6 Medical (six) Branch hours as needed for Pain (scale 4-6). metFORMIN 2019-03 Yes [id number] 500mg Take 1 Univers 500 mg 2-12 tablet by ity of tablet 00:00: mouth 2 00 (two) Medical times Branch daily with meals. cyclobenzap 2019-03 Yes [id number] 10mg Take 1 Univers rine 10 mg 2-12 tablet by ity of tablet 00:00: mouth 3 [place] 00 (three) Medical times Branch daily. ibuprofen 2019-03 Yes [id number] 600mg Take 1 Univers 600 mg 2-12 tablet by ity of tablet 00:00: mouth [place] 00 every 6 Medical (six) Branch hours as needed for Pain (scale 4-6). metFORMIN 2019-03 Yes [id number] 500mg Take 1 Univers 500 mg 2-12 tablet by ity of tablet 00:00: mouth 2 [place] 00 (two) Medical times Branch daily with meals. cyclobenzap 2019-03 Yes [id number] 10mg Take 1 Univers rine 10 mg 2-12 tablet by ity of tablet 00:00: mouth 3 [place] 00 (three) Medical times Branch daily. ibuprofen 2020-1 Yes [id number] 600mg Take 1 Univers 600 mg 2-12 tablet by ity of tablet 00:00: mouth [place] 00 every 6 Medical (six) Branch hours as needed for Pain (scale 4-6). metFORMIN 2020-1 Yes [id number] 500mg Take 1 Univers 500 mg 2-12 tablet by ity of tablet 00:00: mouth 2 [place] 00 (two) Medical times Branch daily with meals. cyclobenzap 2020-1 Yes [id number] 10mg Take 1 Univers rine 10 mg 2-12 tablet by ity of tablet 00:00: mouth 3 00 (three) Medical times Branch daily. ibuprofen 2020-1 Yes [id number] 600mg Take 1 Univers 600 mg 2-12 tablet by ity of tablet 00:00: mouth [place] 00 every 6 Medical (six) Branch hours as needed for Pain (scale 4-6). metFORMIN 2020-1 Yes [id number] 500mg Take 1 Univers 500 mg 2-12 tablet by ity of tablet 00:00: mouth 2 00 (two) Medical times Branch daily with meals. cyclobenzap 2020-1 Yes [id number] 10mg Take 1 Univers rine 10 mg 2-12 tablet by ity of tablet 00:00: mouth 3 00 (three) Medical times Branch daily. ibuprofen 2020-1 Yes [id number] 600mg Take 1 Univers 600 mg 2-12 tablet by ity of tablet 00:00: mouth [place] 00 every 6 Medical (six) Branch hours as needed for Pain (scale 4-6). metFORMIN 2020-1 Yes [id number] 500mg Take 1 Univers 500 mg 2-12 tablet by ity of tablet 00:00: mouth 2 00 (two) Medical times Branch daily with meals. cyclobenzap 2020-1 Yes [id number] 10mg Take 1 Univers rine 10 mg 2-12 tablet by ity of tablet 00:00: mouth 3 [place] 00 (three) Medical times Branch daily. ibuprofen 2020-1 Yes [id number] 600mg Take 1 Univers 600 mg 2-12 tablet by ity of tablet 00:00: mouth [place] 00 every 6 Medical (six) Branch hours as needed for Pain (scale 4-6). metFORMIN 2020- Yes [id number] 500mg Take 1 Univers 500 mg 2-12 tablet by ity of tablet 00:00: mouth 2 [place] 00 (two) Medical times Branch daily with meals. cyclobenzap 2019- Yes [id number] 10mg Take 1 Univers rine 10 mg 2-12 tablet by ity of tablet 00:00: mouth 3 [place] 00 (three) Medical times Branch daily. ibuprofen 2019- Yes [id number] 600mg Take 1 Univers 600 mg 2-12 tablet by ity of tablet 00:00: mouth [place] 00 every 6 Medical (six) Branch hours as needed for Pain (scale 4-6). metFORMIN 2019- Yes [id number] 500mg Take 1 Univers 500 mg 2-12 tablet by ity of tablet 00:00: mouth 2 [place] 00 (two) Medical times Branch daily with meals. cyclobenzap 2019-03 Yes [id number] 10mg Take 1 Univers rine 10 mg 2-12 tablet by ity of tablet 00:00: mouth 3 [place] 00 (three) Medical times Branch daily. ibuprofen 2019-03 Yes [id number] 600mg Take 1 Univers 600 mg 2-12 tablet by ity of tablet 00:00: mouth [place] 00 every 6 Medical (six) Branch hours as needed for Pain (scale 4-6). metFORMIN 2019- Yes [id number] 500mg Take 1 Univers 500 mg 2-12 tablet by ity of tablet 00:00: mouth 2 [place] 00 (two) Medical times Branch daily with meals. cyclobenzap 2019-03 Yes [id number] 10mg Take 1 Univers rine 10 mg 2-12 tablet by ity of tablet 00:00: mouth 3 [place] 00 (three) Medical times Branch daily. proMETHazin 2019-03- No [id number] 25mg Take 1 Univers e 25 mg 2-12 02-20 tablet by ity of tablet 00:00: 00:00 mouth [place] 00 :00 every 6 Medical (six) Branch hours as needed for Nausea and Vomiting (N/V). insulin 2019- No 5U 5 Units, Unive rs regular 5-25 05-25 Subcutaneo ity o f human 08:00: 07:05 , ONCE, [place] (HUMULIN R) 00 :00 1 dose, Medic al injection 5 Mon Branch Units 5/25/20 at 0300, Routine FENTanyl PF 2020-0 2020- No 50ug 50 mcg, Un [facility] (SUBLIMAZE 5-25 05-25 Slow IV ity o f (PF)) 07:30: 07:05 Push, [place] injection 00 :00 ONCE, 1 Medical 50 mcg dose, [facility] 08/22/19 at 0230, Routine FENTanyl PF 2020-0 2020- No 75ug 75 mcg, Un [place] (SUBLIMAZE 5-25 05-25 Slow IV ity o f (PF)) 06:15: 05:20 Push, [place] injection 00 :00 ONCE, 1 Medical 75 mcg dose, [facility] 08/22/19 at 0115, Routine proMETHazin 2020-0 2020- [...] mouth ity of 60 mg 05:29: daily. [address] carvediloL 2020-0 Yes 12.5mg Take 12.5 Univers 12.5 mg 5-25 mg by ity of tablet 05:29: mouth 2 [place] [address] ([facility]) Medical times [place] daily with meals. propranolol 2020-0 Yes 60mg Take 60 mg Univers (INDERAL) 5-25 by mouth ity of 60 mg 05:29: daily. [address] carvediloL 2020-0 Yes 12.5mg Take 12.5 Univers 12.5 mg 5-25 mg by ity of tablet 05:29: mouth 2 [place] [address] ([facility]) Medical times [place] daily with meals. propranolol 2020-0 Yes 60mg Take 60 mg Univers (INDERAL) 5-25 by mouth ity of 60 mg 05:29: daily. [place] tablet [address] [place] [address] carvediloL 2020-0 Yes 12.5mg Take 12.5 Univers 12.5 mg 5-25 mg by ity of tablet 05:29: mouth 2 [place] [address] ([facility]) Medical times [place] daily with meals. propranolol 2020-0 Yes 60mg Take 60 mg Univers (INDERAL) 5-25 by mouth ity of 60 mg 05:29: daily. [facility] [address] [facility] carvediloL 2020-0 Yes 12.5mg Take 12.5 [facility] 12.5 mg 5-25 mg by ity of tablet 05:29: mouth [address] [place] [address] ([facility]) Medical times [place] daily with meals. propranolol 2020-0 Yes 60mg Take 60 mg [facility] (INDERAL) 5-25 by mouth ity of 60 mg 05:29: daily. [place] tablet 28 [facility] carvediloL 2020-0 Yes 12.5mg Take 12.5 [facility] 12.5 mg 5-25 mg by ity of tablet 05:29: mouth [address] [place] [address] [facility] hospital) [facility] daily with meals. propranolol 2020-0 Yes 60mg Take 60 mg [facility] (INDERAL) 5-25 by mouth ity of 60 mg 05:29: daily. [facility] 28 [facility] carvediloL 2020-0 Yes 12.5mg Take 12.5 [facility] 12.5 mg 5-25 mg by ity of tablet 05:29: mouth 2 [place] [address] [address] daily with meals. ARIPiprazol 2020-0 Yes 2mg Take 2 mg U nivers e (ABILIFY) 5-25 by mouth ity of 2 mg tablet 05:28: daily. [address] ARIPiprazol 2020-0 Yes 2mg Take 2 mg U nivers e (ABILIFY) 5-25 by mouth ity of 2 mg tablet 05:28: daily. [address] ARIPiprazol 2020-0 Yes 2mg Take 2 mg U nivers e (ABILIFY) 5-25 by mouth ity of 2 mg tablet 05:28: daily. [address] ARIPiprazol 2020-0 Yes 2mg Take 2 mg U nivers e (ABILIFY) 5-25 by mouth ity of 2 mg tablet 05:28: daily. [address] ARIPiprazol 2020-0 Yes 2mg Take 2 mg U nivers e (ABILIFY) 5-25 by mouth ity of 2 mg tablet 05:28: daily. [address] ARIPiprazol 2020-0 Yes 2mg Take 2 mg U nivers e (ABILIFY) 5-25 by mouth ity of 2 mg tablet 05:28: daily. [address] propranolol 2020-0 Yes 60mg Take 60 mg [facility] (INDERAL) 5-25 by mouth ity of 60 mg 00:29: daily. [address] carvediloL 2020-0 Yes 12.5mg Take 12.5 [facility] 12.5 mg 5-25 mg by ity of tablet 00:29: mouth 2 [place] [address] ([facility]) Medical times [place] daily with meals. propranolol 2020-0 Yes 60mg Take 60 mg [facility] (INDERAL) 5-25 by mouth ity of 60 mg 00:29: daily. [address] carvediloL 2020-0 Yes 12.5mg Take 12.5 [facility] 12.5 mg 5-25 mg by ity of tablet 00:29: mouth 2 [place] [address] ([facility]) Medical times [place] daily with meals. propranolol 2020-0 Yes 60mg Take 60 mg [facility] (INDERAL) 5-25 by mouth ity of 60 mg 00:29: daily. [address] carvediloL 2020-0 Yes 12.5mg Take 12.5 [facility] 12.5 mg 5-25 mg by ity of tablet 00:29: mouth 2 [place] [address] ([facility]) Medical times [place] daily with meals. ARIPiprazol 2020-0 Yes 2mg Take 2 mg U nivers e (ABILIFY) 5-25 by mouth ity of 2 mg tablet 00:28: daily. [address] ARIPiprazol 2020-0 Yes 2mg Take 2 mg U nivers e (ABILIFY) 5-25 by mouth ity of 2 mg tablet 00:28: daily. [address] ARIPiprazol 2020-0 Yes 2mg Take 2 mg U nivers e (ABILIFY) 5-25 by mouth ity of 2 mg tablet 00:28: daily. [address] dicyclomine 2020-0 Yes [id number] 20mg Take 1 [facility] 20 mg 5-25 tablet by ity of tablet 00:00: mouth [place] 00 every 6 Medical (six) Branch hours as needed for Abdominal pain. proMETHazin 2020-0 Yes [id number] 25mg Take 1 U nivers e 25 mg 5-25 tablet by ity of tablet 00:00: mouth [place] 00 every 6 Medical (six) Branch hours as needed for Nausea and Vomiting (N/V). dicyclomine 2020-0 Yes [id number] 20mg Take 1 [facility] 20 mg 5-25 tablet by ity of tablet 00:00: mouth [place] 00 every 6 Medical (six) Branch hours as needed for Abdominal pain. dicyclomine 2020-0 Yes [id number] 20mg Take 1 [facility] 20 mg 5-25 tablet by ity of tablet 00:00: mouth [place] 00 every 6 Medical (six) Branch hours as needed for Abdominal pain. dicyclomine 2020-0 Yes [id number] 20mg Take 1 [facility] 20 mg 5-25 tablet by ity of tablet 00:00: mouth [place] 00 every 6 Medical (six) Branch hours as needed for Abdominal pain. dicyclomine 2020-0 Yes [id number] 20mg Take 1 [facility] 20 mg 5-25 tablet by ity of tablet 00:00: mouth [place] 00 every 6 Medical (six) Branch hours as needed for Abdominal pain. dicyclomine 2020-0 Yes [id number] 20mg Take 1 [facility] 20 mg 5-25 tablet by ity of tablet 00:00: mouth [place] 00 every 6 Medical (six) Branch hours as needed for Abdominal pain. dicyclomine 2020-0 Yes [id number] 20mg Take 1 [facility] 20 mg 5-25 tablet by ity of tablet 00:00: mouth [place] 00 every 6 Medical (six) Branch hours as needed for Abdominal pain. dicyclomine 2020-0 Yes [id number] 20mg Take 1 [facility] 20 mg 5-25 tablet by ity of tablet 00:00: mouth [place] 00 every 6 Medical (six) Branch hours as needed for Abdominal pain. dicyclomine 2020-0 Yes [id number] 20mg Take 1 [facility] 20 mg 5-25 tablet by ity of tablet 00:00: mouth [place] 00 every 6 Medical (six) Branch hours as needed for Abdominal pain. dicyclomine 2020-0 Yes [id number] 20mg Take 1 [facility] 20 mg 5-25 tablet by ity of tablet 00:00: mouth [place] 00 every 6 Medical (six) Branch hours as needed for Abdominal pain. dicyclomine 2020-0 Yes [id number] 20mg Take 1 [facility] 20 mg 5-25 tablet by ity of tablet 00:00: mouth [place] 00 every 6 Medical (six) Branch hours as needed for Abdominal pain. dicyclomine 2020-0 Yes [id number] 20mg Take 1 [facility] 20 mg 5-25 tablet by ity of tablet 00:00: mouth [place] 00 every 6 Medical (six) Branch hours as needed for Abdominal pain. dicyclomine 2020-0 Yes [id number] 20mg Take 1 [facility] 20 mg 5-25 tablet by ity of tablet 00:00: mouth [place] 00 every 6 Medical (six) Branch hours as needed for Abdominal pain. dicyclomine 2020-0 Yes [id number] 20mg Take 1 [facility] 20 mg 5-25 tablet by ity of tablet 00:00: mouth [place] 00 every 6 Medical (six) Branch hours as needed for Abdominal pain. dicyclomine 2020-0 Yes [id number] 20mg Take 1 [facility] 20 mg 5-25 tablet by ity of tablet 00:00: mouth [place] 00 every 6 Medical (six) Branch hours as needed for Abdominal pain. dicyclomine 2020-0 Yes [id number] 20mg Take 1 [facility] 20 mg 5-25 tablet by ity of tablet 00:00: mouth [place] 00 every 6 Medical (six) Branch hours as needed for Abdominal pain. dicyclomine 2020-0 Yes [id number] 20mg Take 1 [facility] 20 mg 5-25 tablet by ity of tablet 00:00: mouth [place] 00 every 6 Medical (six) Branch hours as needed for Abdominal pain. dicyclomine 2020-0 Yes [id number] 20mg Take 1 [facility] 20 mg 5-25 tablet by ity of tablet 00:00: mouth [place] 00 every 6 Medical (six) Branch hours as needed for Abdominal pain. proMETHazin 2019-0 2020- No [id number] 25mg Take 1 Univers e 25 mg [...] mouth ity of mg tablet 19:53: daily. [place] [address] Medical Branch clonazePAM 2020-0 Yes Take by [facility] [place] [facility] ers (KLONOPIN) 5-07 mouth 2 ity of 0.5 mg 19:53: (two) [place] disintegrat 38 times Medical ing tablet daily as Branc h needed for Anxiety. ZN 2020-0 Yes Take by [facility] GLUC/PUMP 5-07 mouth. ity of SEED 19:53: [place] OIL/SAW PAL 38 Medical (PROPALMEX Branch ORAL) propranolol 2020-0 Yes 60mg Take 60 mg [facility] (INDERAL) 5-07 by mouth ity of 60 mg 19:53: daily. [place] tablet 38 Medical Branch butorphanol 2020-0 Yes 1{spray Use 1 [place] (STADOL) 10 5-07 } [place] in ity of mg/mL nasal 19:53: each [place] spray 38 nostril as Medical needed for Branch Pain. METFORMIN 2020-0 Yes 500mg Take 500 Uni vers HCL 5-07 mg by ity of (METFORMIN 19:53: [place] 2 [place] ORAL[place] 38 (two) Medical times Branch daily. zolpidem 2020-0 Yes 12.5mg Take 12.5 [place] 12.5 mg CR 5-07 mg by ity of tablet 19:53: mouth at [place] [address] bedtime as Medical needed for Branch Sleep. ARIPiprazol 2020-0 Yes 2mg Take 2 mg U nivers e (ABILIFY) 5-07 by mouth ity of 2 mg tablet 19:53: daily. [facility] tiZANidine 2020-0 Yes 4mg Take 4 mg [place] (ZANAFLEX) 5-07 by mouth 2 ity of 4 mg 19:53: (two) [place] capsule 38 times Medical daily. Branch citalopram 2020-0 Yes 40mg Take 40 mg U nivers (CELEXA) 40 5-07 by mouth ity of mg tablet 19:53: daily. [place] [address] Medical Branch clonazePAM 2020-0 Yes Take by [facility] [place] [facility] ers (KLONOPIN) 5-07 mouth 2 ity of 0.5 mg 19:53: (two) [place] disintegrat 38 times Medical ing tablet daily as Branc h needed for Anxiety. ZN 2020-0 Yes Take by [facility] GLUC/PUMP 5-07 mouth. ity of SEED 19:53: [place] OIL/SAW PAL 38 Medical (PROPALMEX Branch ORAL) propranolol 2020-0 Yes 60mg Take 60 mg [facility] (INDERAL) 5-07 by mouth ity of 60 mg 19:53: daily. [place] tablet 38 Medical Branch butorphanol 2020-0 Yes 1{spray Use 1 [place] (STADOL) 10 5-07 } [place] in ity of mg/mL nasal 19:53: each [place] spray 38 nostril as Medical needed for Branch Pain. METFORMIN 2020-0 Yes 500mg Take 500 Uni vers HCL 5-07 mg by ity of (METFORMIN 19:53: mouth 2 [place] 38 (two) Medical times Branch daily. zolpidem 2020-0 Yes 12.5mg Take 12.5 [place] 12.5 mg CR 5-07 mg by ity of tablet 19:53: mouth at [place] [address] bedtime as Medical needed for Branch Sleep. ARIPiprazol 2020-0 Yes 2mg Take 2 mg U nivers e (ABILIFY) 5-07 by mouth ity of 2 mg tablet 19:53: daily. [facility] tiZANidine 2020-0 Yes 4mg Take 4 mg [place] (ZANAFLEX) 5-07 by mouth 2 ity of 4 mg 19:53: (two) [place] capsule 38 times Medical daily. Branch citalopram 2020-0 Yes 40mg Take 40 mg U nivers (CELEXA) 40 5-07 by mouth ity of mg tablet 19:53: daily. [place] [address] Medical Branch clonazePAM 2020-0 Yes Take by [facility] [place] [facility] ers (KLONOPIN) 5-07 mouth 2 ity of 0.5 mg 19:53: (two) [place] disintegrat 38 times Medical ing tablet daily as Branc h needed for Anxiety. ZN 2020-0 Yes Take by [facility] GLUC/PUMP 5-07 mouth. ity of SEED 19:53: [place] OIL/SAW PAL 38 Medical (PROPALMEX Branch ORAL) propranolol 2020-0 Yes 60mg Take 60 mg [facility] (INDERAL) 5-07 by mouth ity of 60 mg 19:53: daily. [place] tablet Medical Branch butorphanol 2020-0 Yes 1{spray Use 1 [place] (STADOL) 10 5-07 } [place] in ity of mg/mL nasal 19:53: each [place] spray 38 nostril as Medical needed for Branch Pain. METFORMIN 2020-0 Yes 500mg Take 500 Uni vers HCL 5-07 mg by ity of (METFORMIN 19:53: mouth 2 [place] OR[place] 38 (two) Medical times Branch daily. zolpidem 2020-0 Yes 12.5mg Take 12.5 [place] 12.5 mg CR 5-07 mg by ity of tablet 19:53: mouth at [place] [address] bedtime as Medical needed for Branch Sleep. ARIPiprazol 2020-0 Yes 2mg Take 2 mg U nivers e (ABILIFY) 5-07 by mouth ity of 2 mg tablet 19:53: daily. [facility] tiZANidine 2020-0 Yes 4mg Take 4 mg [place] (ZANAFLEX) 5-07 by mouth 2 ity of 4 mg 19:53: (two) [place] capsule 38 times Medical daily. Branch citalopram 2020-0 Yes 40mg Take 40 mg U nivers (CELEXA) 40 5-07 by mouth ity of mg tablet 19:53: daily. [place] [address] Medical Branch clonazePAM 2020-0 Yes Take by [facility] [place] [facility] ers (KLONOPIN) 5-07 mouth 2 ity of 0.5 mg 19:53: (two) [place] disintegrat 38 times Medical ing tablet daily as Branc h needed for Anxiety. ZN 2020-0 Yes Take by [facility] GLUC/PUMP 5-07 mouth. ity of SEED 19:53: [place] OIL/SAW PAL 38 Medical (PROPALMEX Branch ORAL) propranolol 2020-0 Yes 60mg Take 60 mg [facility] (INDERAL) 5-07 by mouth ity of 60 mg 19:53: daily. [place] tablet 38 Medical Branch butorphanol 2020-0 Yes 1{spray Use 1 [place] (STADOL) 10 5-07 } [place] in ity of mg/mL nasal 19:53: each [place] spray 38 nostril as Medical needed for Branch Pain. METFORMIN 2020-0 Yes 500mg Take 500 Uni vers HCL 5-07 mg by ity of (METFORMIN 19:53: mouth 2 [place] OR[place] 38 (two) Medical times Branch daily. zolpidem 2020-0 Yes 12.5mg Take 12.5 [place] 12.5 mg CR 5-07 mg by ity of tablet 19:53: mouth at [place] [address] bedtime as Medical needed for Branch Sleep. ARIPiprazol 2020-0 Yes 2mg Take 2 mg U nivers e (ABILIFY) 5-07 by mouth ity of 2 mg tablet 19:53: daily. [place] [address] Medical Branch tiZANidine 2020-0 Yes 4mg Take 4 mg [place] (ZANAFLEX) 5-07 by mouth 2 ity of 4 mg 19:53: (two) [place] capsule 38 times Medical daily. Branch citalopram 2020-0 Yes 40mg Take 40 mg U nivers (CELEXA) 40 5-07 by mouth ity of mg tablet 19:53: daily. [address] Branch clonazePAM 2020-0 Yes Take by [facility] [place] [facility] ers (KLONOPIN) 5-07 mouth 2 ity of 0.5 mg 19:53: (two) [place] disintegrat 38 times Medical ing tablet daily as Branc h needed for Anxiety. ZN 2020-0 Yes Take by [facility] GLUC/PUMP 5-07 mouth. ity of SEED 19:53: [place] OIL/SAW PAL 38 Medical (PROPALMEX Branch ORAL) propranolol 2020-0 Yes 60mg Take 60 mg [facility] (INDERAL) 5-07 by mouth ity of 60 mg 19:53: daily. [place] tablet Medical Branch butorphanol 2020-0 Yes 1{spray Use 1 [place] (STADOL) 10 5-07 } [place] in ity of mg/mL nasal 19:53: each [place] spray 38 nostril as Medical needed for Branch Pain. METFORMIN 2020-0 Yes 500mg Take 500 Uni vers HCL 5-07 mg by ity of (METFORMIN 19:53: mouth 2 [facility] 38 (two) Medical times Branch daily. zolpidem 2020-0 Yes 12.5mg Take 12.5 [place] 12.5 mg CR 5-07 mg by ity of tablet 19:53: mouth at [place] [address] bedtime as Medical needed for Branch Sleep. ARIPiprazol 2020-0 Yes 2mg Take 2 mg U nivers e (ABILIFY) 5-07 by mouth ity of 2 mg tablet 19:53: daily. [address] Branch tiZANidine 2020-0 Yes 4mg Take 4 mg [place] (ZANAFLEX) 5-07 by mouth 2 ity of 4 mg 19:53: (two) [place] capsule 38 times Medical daily. Branch citalopram 2020-0 Yes 40mg Take 40 mg U nivers (CELEXA) 40 5-07 by mouth ity of mg tablet 19:53: daily. [place] [address] Medical Branch clonazePAM 2020-0 Yes Take by [facility] [place] [facility] ers (KLONOPIN) 5-07 mouth 2 ity of 0.5 mg 19:53: (two) [place] disintegrat 38 times Medical ing tablet daily as Branc h needed for Anxiety. ZN 2020-0 Yes Take by [facility] GLUC/PUMP 5-07 mouth. ity of SEED 19:53: [place] OIL/SAW PAL 38 Medical (PROPALMEX Branch ORAL) propranolol 2020-0 Yes 60mg Take 60 mg [facility] (INDERAL) 5-07 by mouth ity of 60 mg 19:53: daily. [place] tablet Medical Branch butorphanol 2020-0 Yes 1{spray Use 1 [place] (STADOL) 10 5-07 } [place] in ity of mg/mL nasal 19:53: each [place] spray 38 nostril as Medical needed for Branch Pain. METFORMIN 2020-0 Yes 500mg Take 500 Uni vers HCL 5-07 mg by ity of (METFORMIN 19:53: mouth 2 [place] OR[place] 38 (two) Medical times Branch daily. zolpidem 2020-0 Yes 12.5mg Take 12.5 [place] 12.5 mg CR 5-07 mg by ity of tablet 19:53: mouth at [place] [address] bedtime as Medical needed for Branch Sleep. [...] mouth ity of mg tablet 19:53: daily. [place] [address] Medical Branch clonazePAM 2020-0 Yes Take by [facility] [place] [facility] ers (KLONOPIN) 5-07 mouth 2 ity of 0.5 mg 19:53: (two) [place] disintegrat 38 times Medical ing tablet daily as Branc h needed for Anxiety. ZN 2020-0 Yes Take by [facility] GLUC/PUMP 5-07 mouth. ity of SEED 19:53: [place] OIL/SAW PAL 38 Medical (PROPALMEX Branch ORAL) propranolol 2020-0 Yes 60mg Take 60 mg [facility] (INDERAL) 5-07 by mouth ity of 60 mg 19:53: daily. [place] tablet 38 Medical Branch butorphanol 2020-0 Yes 1{spray Use 1 [place] (STADOL) 10 5-07 } [place] in ity of mg/mL nasal 19:53: each [place] spray 38 nostril as Medical needed for Branch Pain. METFORMIN 2020-0 Yes 500mg Take 500 Uni vers HCL 5-07 mg by ity of (METFORMIN 19:53: mouth 2 [place] ORAL[place] 38 (two) Medical times Branch daily. zolpidem 2020-0 Yes 12.5mg Take 12.5 [place] 12.5 mg CR 5-07 mg by ity of tablet 19:53: mouth at [place] 38 bedtime as Medical needed for Branch Sleep. tiZANidine 2020-0 Yes 4mg Take 4 mg [place] (ZANAFLEX) 5-07 by mouth 2 ity of 4 mg 19:53: (two) [place] capsule 38 times Medical daily. Branch citalopram 2020-0 Yes 40mg Take 40 mg U nivers (CELEXA) 40 5-07 by mouth ity of mg tablet 19:53: daily. [place] [address] Medical Branch clonazePAM 2020-0 Yes Take by [facility] [place] [facility] ers (KLONOPIN) 5-07 mouth 2 ity of 0.5 mg 19:53: (two) [place] disintegrat 38 times Medical ing tablet daily as Branc h needed for Anxiety. ZN 2020-0 Yes Take by [facility] GLUC/PUMP 5-07 mouth. ity of SEED 19:53: [place] OIL/SAW PAL 38 Medical (PROPALMEX Branch ORAL) butorphanol 2020-0 Yes 1{spray Use 1 [place] (STADOL) 10 5-07 } [place] in ity of mg/mL nasal 19:53: each [place] spray 38 nostril as Medical needed for Branch Pain. METFORMIN 2020-0 Yes 500mg Take 500 Uni vers HCL 5-07 mg by ity of (METFORMIN 19:53: mouth 2 [place] OR[place] 38 (two) Medical times Branch daily. zolpidem 2020-0 Yes 12.5mg Take 12.5 [place] 12.5 mg CR 5-07 mg by ity of tablet 19:53: mouth at [place] 38 bedtime as Medical needed for Branch Sleep. tiZANidine 2020-0 Yes 4mg Take 4 mg [place] (ZANAFLEX) 5-07 by mouth 2 ity of 4 mg 19:53: (two) [place] capsule 38 times Medical daily. Branch citalopram 2020-0 Yes 40mg Take 40 mg U nivers (CELEXA) 40 5-07 by mouth ity of mg tablet 19:53: daily. [place] [address] Medical Branch clonazePAM 2020-0 Yes Take by [facility] [place] [facility] ers (KLONOPIN) 5-07 mouth 2 ity of 0.5 mg 19:53: (two) [place] disintegrat 38 times Medical ing tablet daily as Branc h needed for Anxiety. ZN 2020-0 Yes Take by [facility] GLUC/PUMP 5-07 mouth. ity of SEED 19:53: [place] OIL/SAW [facility] 38 Medical (PROPALMEX Branch ORAL) butorphanol 2020-0 Yes 1{spray Use 1 [place] (STADOL) 10 5-07 } [place] in ity of mg/mL nasal 19:53: each [place] spray 38 nostril as Medical needed for Branch Pain. METFORMIN 2020-0 Yes 500mg Take 500 Uni vers HCL 5-07 mg by ity of (METFORMIN 19:53: mouth 2 [place] ORAL[place] 38 (two) Medical times Branch daily. zolpidem 2020-0 Yes 12.5mg Take 12.5 [place] 12.5 mg CR 5-07 mg by ity of tablet 19:53: mouth at [place] [address] bedtime as Medical needed for Branch Sleep. tiZANidine 2020-0 Yes 4mg Take 4 mg [place] (ZANAFLEX) 5-07 by mouth 2 ity of 4 mg 19:53: (two) [place] capsule 38 times Medical daily. Branch citalopram 2020-0 Yes 40mg Take 40 mg U nivers (CELEXA) 40 5-07 by mouth ity of mg tablet 19:53: daily. [place] [address] Medical Branch clonazePAM 2020-0 Yes Take by [facility] [place] [facility] ers (KLONOPIN) 5-07 mouth 2 ity of 0.5 mg 19:53: (two) [place] disintegrat 38 times Medical ing tablet daily as Branc h needed for Anxiety. ZN 2020-0 Yes Take by [facility] GLUC/PUMP 5-07 mouth. ity of SEED 19:53: [place] OIL/SAW PAL 38 Medical (PROPALMEX Branch ORAL) butorphanol 2020-0 Yes 1{spray Use 1 [place] (STADOL) 10 5-07 } [place] in ity of mg/mL nasal 19:53: each [...] by ity of tablet 19:53: mouth at [place] [address] bedtime as Medical needed for Branch Sleep. tiZANidine 2020-0 Yes 4mg Take 4 mg [place] (ZANAFLEX) 5-07 by mouth 2 ity of 4 mg 19:53: (two) [place] capsule 38 times Medical daily. Branch citalopram 2020-0 Yes 40mg Take 40 mg U nivers (CELEXA) 40 5-07 by mouth ity of mg tablet 19:53: daily. [place] [address] Medical Branch clonazePAM 2020-0 Yes Take by [facility] [place] [facility] ers (KLONOPIN) 5-07 mouth 2 ity of 0.5 mg 19:53: (two) [place] disintegrat 38 times Medical ing tablet daily as Branc h needed for Anxiety. ZN 2020-0 Yes Take by [facility] GLUC/PUMP 5-07 mouth. ity of SEED 19:53: [place] OIL/SAW PAL 38 Medical (PROPALMEX Branch ORAL) butorphanol 2020-0 Yes 1{spray Use 1 [place] (STADOL) 10 5-07 } [place] in ity of mg/mL nasal 19:53: each [place] spray 38 nostril as Medical needed for Branch Pain. METFORMIN 2020-0 Yes 500mg Take 500 Uni vers HCL 5-07 mg by ity of (METFORMIN 19:53: mouth 2 [place] OR[place] 38 (two) Medical times Branch daily. zolpidem 2020-0 Yes 12.5mg Take 12.5 [place] 12.5 mg CR 5-07 mg by ity of tablet 19:53: mouth at [place] 38 bedtime as Medical needed for Branch Sleep. tiZANidine 2020-0 Yes 4mg Take 4 mg [place] (ZANAFLEX) 5-07 by mouth 2 ity of 4 mg 19:53: (two) [place] capsule 38 times Medical daily. Branch citalopram 2020-0 Yes 40mg Take 40 mg U nivers (CELEXA) 40 5-07 by mouth ity of mg tablet 19:53: daily. [place] [address] Medical Branch clonazePAM 2020-0 Yes Take by [facility] [place] [facility] ers (KLONOPIN) 5-07 mouth 2 ity of 0.5 mg 19:53: (two) [place] disintegrat 38 times Medical ing tablet daily as Branc h needed for Anxiety. ZN 2020-0 Yes Take by [facility] GLUC/PUMP 5-07 mouth. ity of SEED 19:53: [place] OIL/SAW [facility] 38 Medical (PROPALMEX Branch ORAL) butorphanol 2020-0 Yes 1{spray Use 1 [place] (STADOL) 10 5-07 } [place] in ity of mg/mL nasal 19:53: each [place] spray 38 nostril as Medical needed for Branch Pain. METFORMIN 2020-0 Yes 500mg Take 500 Uni vers HCL 5-07 mg by ity of (METFORMIN 19:53: mouth 2 [place] ORAL[place] 38 (two) Medical times Branch daily. zolpidem 2020-0 Yes 12.5mg Take 12.5 [place] 12.5 mg CR 5-07 mg by ity of tablet 19:53: mouth at [place] 38 bedtime as Medical needed for Branch Sleep. tiZANidine 2020-0 Yes 4mg Take 4 mg [place] (ZANAFLEX) 5-07 by mouth 2 ity of 4 mg 19:53: (two) [place] capsule 38 times Medical daily. Branch citalopram 2020-0 Yes 40mg Take 40 mg U nivers (CELEXA) 40 5-07 by mouth ity of mg tablet 19:53: daily. [place] [address] Medical Branch clonazePAM 2020-0 Yes Take by [facility] [place] [facility] ers (KLONOPIN) 5-07 mouth 2 ity of 0.5 mg 19:53: (two) [place] disintegrat 38 times Medical ing tablet daily as Branc h needed for Anxiety. ZN 2020-0 Yes Take by [facility] GLUC/PUMP 5-07 mouth. ity of SEED 19:53: [place] OIL/SAW PAL 38 Medical (PROPALMEX Branch ORAL) butorphanol 2020-0 Yes 1{spray Use 1 [place] (STADOL) 10 5-07 } [place] in ity of mg/mL nasal 19:53: each [place] spray 38 nostril as Medical needed for Branch Pain. METFORMIN 2020-0 Yes 500mg Take 500 Uni vers HCL 5-07 mg by ity of (METFORMIN 19:53: mouth 2 [place] OR[place] 38 (two) Medical times Branch daily. zolpidem 2020-0 Yes 12.5mg Take 12.5 [place] 12.5 mg CR 5-07 mg by ity of tablet 19:53: mouth at [place] [address] bedtime as Medical needed for Branch Sleep. tiZANidine 2020-0 Yes 4mg Take 4 mg [place] (ZANAFLEX) 5-07 by mouth 2 ity of 4 mg 14:53: (two) [place] capsule 38 times Medical daily. Branch citalopram 2020-0 Yes 40mg Take 40 mg U nivers (CELEXA) 40 5-07 by mouth ity of mg tablet 14:53: daily. [place] [address] Medical Branch clonazePAM 2020-0 Yes Take by [facility] [place] [facility] ers (KLONOPIN) 5-07 mouth 2 ity of 0.5 mg 14:53: (two) [place] disintegrat 38 times Medical ing tablet daily as Branc h needed for Anxiety. ZN 2020-0 Yes Take by [facility] GLUC/PUMP 5-07 mouth. ity of SEED 14:53: [place] OIL/SAW PAL 38 Medical (PROPALMEX Branch ORAL) butorphanol 2020-0 Yes 1{spray Use 1 [place] (STADOL) 10 5-07 } [place] in ity of mg/mL nasal 14:53: each [place] spray 38 nostril as Medical needed for [...] mouth ity of mg tablet 14:53: daily. [place] [address] Medical Branch clonazePAM 2020-0 Yes Take by [facility] [place] [facility] ers (KLONOPIN) 5-07 mouth 2 ity of 0.5 mg 14:53: (two) [place] disintegrat 38 times Medical ing tablet daily as Branc h needed for Anxiety. ZN 2020-0 Yes Take by [facility] GLUC/PUMP 5-07 mouth. ity of SEED 14:53: [place] OIL/SAW PAL 38 Medical (PROPALMEX Branch ORAL) butorphanol 2020-0 Yes 1{spray Use 1 [place] (STADOL) 10 5-07 } [place] in ity of mg/mL nasal 14:53: each [place] spray 38 nostril as Medical needed for Branch Pain. METFORMIN 2020-0 Yes 500mg Take 500 Uni vers HCL 5-07 mg by ity of (METFORMIN 14:53: mouth 2 [place] 38 (two) Medical times Branch daily. zolpidem 2020-0 Yes 12.5mg Take 12.5 [place] 12.5 mg CR 5-07 mg by ity of tablet 14:53: mouth at [place] [address] bedtime as Medical needed for Branch Sleep. tiZANidine 2020-0 Yes 4mg Take 4 mg [place] (ZANAFLEX) 5-07 by mouth 2 ity of 4 mg 14:53: (two) [place] capsule 38 times Medical daily. Branch citalopram 2020-0 Yes 40mg Take 40 mg U nivers (CELEXA) 40 5-07 by mouth ity of mg tablet 14:53: daily. [place] [address] Medical Branch clonazePAM 2020-0 Yes Take by [facility] [place] [facility] ers (KLONOPIN) 5-07 mouth 2 ity of 0.5 mg 14:53: (two) [place] disintegrat 38 times Medical ing tablet daily as Branc h needed for Anxiety. ZN 2020-0 Yes Take by [facility] GLUC/PUMP 5-07 mouth. ity of SEED 14:53: [place] OIL/SAW PAL 38 Medical (PROPALMEX Branch ORAL) butorphanol 2020-0 Yes 1{spray Use 1 Un chauncey (STADOL) 10 5-07 } [place] in ity of mg/mL nasal 14:53: each [...] needed for Branch Sleep. acetaminoph 2020-0 Yes [id number] 650mg Take 1 [facility] en 650 mg 5-07 tablet by ity o f CR tablet 00:00: mouth [place] 00 every 8 Medical (eight) Branch hours as needed for Pain or Fever. bromphenira 2020-0 Yes [id number] 10mL Take 10 mL [facility] mine-pseudo 5-07 by mouth 4 it y of ephedrine-D 00:00: (four[place] (BROMFED 00 times Medical DM) 2-30-10 daily as Bran ch mg/5 mL needed for syrup Cough. Bismuth 2020-0 Yes [id number] 262mg Take 1 Un cha[facility] Subsalicyla 5-07 tablet by ity of te 00:00: mouth 4 [place] (PEPTO-BISM 00 (four) Medica l OL) 262 mg times Branch tablet daily as needed (diarrhea) . proMETHazin 2020-0 Yes [id number] 25mg Take 1 [facility] e 25 mg 5-07 tablet by ity of tablet 00:00: mouth [place] 00 every 6 Medical (six) Branch hours as needed for Nausea and Vomiting (N/V). acetaminoph 2020-0 Yes [id number] 650mg Take 1 [facility] en 650 mg 5-07 tablet by ity o f CR tablet 00:00: mouth [place] 00 every 8 Medical (eight) Branch hours as needed for Pain or Fever. bromphenira 2020-0 Yes [id number] 10mL Take 10 mL [facility] mine-pseudo 5-07 by mouth 4 it y of ephedrine-D 00:00: (four[place] (BROMFED 00 times Medical DM) 2-30-10 daily as Bran ch mg/5 mL needed for syrup Cough. Bismuth 2020-0 Yes [id number] 262mg Take 1 Un cha[facility]ce[facility] Subsalicyla 5-07 tablet by ity of te 00:00: mouth 4 [place] (PEPTO-BISM 00 (four) Medica l OL) 262 mg times Branch tablet daily as needed (diarrhea) . proMETHazin 2020-0 Yes [id number] 25mg Take 1 [facility] e 25 mg 5-07 tablet by ity of tablet 00:00: mouth [place] 00 every 6 Medical (six) Branch hours as needed for Nausea and Vomiting (N/V). acetaminoph 2020-0 Yes [id number] 650mg Take 1 [facility] en 650 mg 5-07 tablet by ity o f CR tablet 00:00: mouth [place] 00 every 8 Medical (eight) Branch hours as needed for Pain or Fever. bromphenira 2020-0 Yes [id number] 10mL Take 10 mL [facility] mine-pseudo 5-07 by mouth 4 it y of ephedrine-D 00:00: (four[place] (BROMFED 00 times Medical DM) 2-30-10 daily as Bran ch mg/5 mL needed for syrup Cough. Bismuth 2020-0 Yes [id number] 262mg Take 1 Un [facility] Subsalicyla 5-07 tablet by ity of te 00:00: mouth 4 [place] (PEPTO-BISM 00 (four) Medica l OL) 262 mg times Branch tablet daily as needed (diarrhea) . proMETHazin 2020-0 Yes [id number] 25mg Take 1 [facility] e 25 mg 5-07 tablet by ity of tablet 00:00: mouth [place] 00 every 6 Medical (six) Branch hours as needed for Nausea and Vomiting (N/V). acetaminoph 2020-0 Yes [id number] 650mg Take 1 [facility] en 650 mg 5-07 tablet by ity o f CR tablet 00:00: mouth [place] 00 every 8 Medical (eight) Branch hours as needed for Pain or Fever. bromphenira 2020-0 Yes [id number] 10mL Take 10 mL [facility] mine-pseudo 5-07 by mouth 4 it y of ephedrine-D 00:00: (four) [place] (BROMFED 00 times Medical DM) 2-30-10 daily as Bran ch mg/5 mL needed for syrup Cough. Bismuth 2020-0 Yes [id number] 262mg Take 1 Un cha[facility] Subsalicyla 5-07 tablet by ity of te 00:00: mouth 4 [place] (PEPTO-BISM 00 (four) Medica l OL) 262 mg times Branch tablet daily as needed (diarrhea) . proMETHazin 2020-0 Yes [id number] 25mg Take 1 [facility] e 25 mg 5-07 tablet by ity of tablet 00:00: mouth [place] 00 every 6 Medical (six) Branch hours as needed for Nausea and Vomiting (N/V). acetaminoph 2020-0 Yes [id number] 650mg Take 1 [facility] en 650 mg 5-07 tablet by ity o f CR tablet 00:00: mouth [place] 00 every 8 Medical (eight) Branch hours as needed for Pain or Fever. bromphenira 2020-0 Yes [id number] 10mL Take 10 mL [facility] mine-pseudo 5-07 by mouth 4 it y of ephedrine-D 00:00: (four) [place] (BROMFED 00 times Medical DM) 2-30-10 daily as Bran ch mg/5 mL needed for syrup Cough. Bismuth 2020-0 Yes [id number] 262mg Take 1 Un cha[facility] Subsalicyla 5-07 tablet by ity of te 00:00: mouth 4 [place] (PEPTO-BISM 00 (four) Medica l OL) 262 mg times Branch tablet daily as needed (diarrhea) . proMETHazin 2020-0 Yes [id number] 25mg Take 1 [facility] e 25 mg 5-07 tablet by ity of tablet 00:00: mouth [place] 00 every 6 Medical (six) Branch hours as needed for Nausea and Vomiting (N/V). acetaminoph 2020-0 Yes [id number] 650mg Take 1 [facility] en 650 mg 5-07 tablet by ity o f CR tablet 00:00: mouth [place] 00 every 8 Medical (eight) Branch hours as needed for Pain or Fever. bromphenira 2020-0 Yes [id number] 10mL Take 10 mL [facility] mine-pseudo 5-07 by mouth 4 it y of ephedrine-D 00:00: (four) [place] (BROMFED 00 times Medical DM) 2-30-10 daily as Bran ch mg/5 mL needed for syrup Cough. Bismuth 2020-0 Yes [id number] 262mg Take 1 [facility] Subsalicyla 5-07 tablet by ity of te 00:00: mouth 4 [place] (PEPTO-BISM 00 (four) Medica l OL) 262 mg times Branch tablet daily as needed (diarrhea) . proMETHazin 2020-0 Yes [id number] 25mg Take 1 [facility] e 25 mg 5-07 tablet by ity of tablet 00:00: mouth [place] 00 every 6 Medical (six) Branch hours as needed for Nausea and Vomiting (N/V). acetaminoph 2020-0 Yes [id number] 650mg Take 1 [facility] en 650 mg 5-07 tablet by ity o f CR tablet 00:00: mouth [place] 00 every 8 Medical (eight) Branch hours as needed for Pain or Fever. bromphenira 2020-0 Yes [id number] 10mL Take 10 mL [facility] mine-pseudo 5-07 by mouth 4 it y of ephedrine-D 00:00: (four) [place] (BROMFED 00 times Medical DM) 2-30-10 daily as Bran ch mg/5 mL needed for syrup Cough. Bismuth 2020-0 Yes [id number] 262mg Take 1 [facility] Subsalicyla 5-07 tablet by ity of te 00:00: mouth 4 [place] (PEPTO-BISM 00 (four) Medica l OL) 262 mg times Branch tablet daily as needed (diarrhea) . proMETHazin 2020-0 Yes [id number] 25mg Take 1 [facility] e 25 mg 5-07 tablet by ity of tablet 00:00: mouth [place] 00 every 6 Medical (six) Branch hours as needed for Nausea and Vomiting (N/V). acetaminoph 2020-0 Yes [id number] 650mg Take 1 [facility] en 650 mg 5-07 tablet by ity o f CR tablet 00:00: mouth [place] 00 every 8 Medical (eight) Branch hours as needed for Pain or Fever. bromphenira 2020-0 Yes [id number] 10mL Take 10 mL [facility] mine-pseudo 5-07 by mouth 4 it y of ephedrine-D 00:00: (four) [place] (BROMFED 00 times Medical DM) 2-30-10 daily as Bran ch mg/5 mL needed for syrup Cough. Bismuth 2020-0 Yes [id number] 262mg Take 1 [facility] Subsalicyla 5-07 tablet by ity of te 00:00: mouth 4 [place] (PEPTO-BISM 00 (four) Medica l OL) 262 mg times Branch tablet daily as needed (diarrhea) . proMETHazin 2020-0 Yes [id number] 25mg Take 1 [facility] e 25 mg 5-07 tablet by ity of tablet 00:00: mouth [place] 00 every 6 Medical (six) Branch hours as needed for Nausea and Vomiting (N/V). acetaminoph 2020-0 Yes [id number] 650mg Take 1 [facility] en 650 mg 5-07 tablet by ity o f CR tablet 00:00: mouth [place] 00 every 8 Medical (eight) Branch hours as needed for Pain or Fever. bromphenira 2020-0 Yes [id number] 10mL Take 10 mL [facility] mine-pseudo 5-07 by mouth 4 it y of ephedrine-D 00:00: (four) [place] (BROMFED 00 times Medical DM) 2-30-10 daily as Bran ch mg/5 mL needed for syrup Cough. Bismuth 2020-0 Yes [id number] 262mg Take 1 [facility] Subsalicyla 5-07 tablet by ity of te 00:00: mouth 4 [place] (PEPTO-BISM 00 (four) Medica l OL) 262 mg times Branch tablet daily as needed (diarrhea) . acetaminoph 2020-0 Yes [id number] 650mg Take 1 [facility] en 650 mg 5-07 tablet by ity o f CR tablet 00:00: mouth [place] 00 every 8 Medical (eight) Branch hours as needed for Pain or Fever. bromphenira 2020-0 Yes [id number] 10mL Take 10 mL [facility] mine-pseudo 5-07 by mouth 4 it y of ephedrine-D 00:00: (four) [place] (BROMFED 00 times Medical DM) 2-30-10 daily as Bran ch mg/5 mL needed for syrup Cough. Bismuth 2020-0 Yes [id number] 262mg Take 1 [facility] Subsalicyla 5-07 tablet by ity of te 00:00: mouth 4 [place] (PEPTO-BISM 00 (four) Medica l OL) 262 mg times Branch tablet daily as needed (diarrhea) . acetaminoph 2020-0 Yes [id number] 650mg Take 1 [facility] en 650 mg 5-07 tablet by ity o f CR tablet 00:00: mouth [place] 00 every 8 Medical (eight) Branch hours as needed for Pain or Fever. bromphenira 2020-0 Yes [id number] 10mL Take 10 mL [facility] mine-pseudo 5-07 by mouth 4 it y of ephedrine-D 00:00: (four) [place] (BROMFED 00 times Medical DM) 2-30-10 daily as Bran ch mg/5 mL needed for syrup Cough. Bismuth 2020-0 Yes [id number] 262mg Take 1 [facility] Subsalicyla 5-07 tablet by ity of te 00:00: mouth 4 [place] (PEPTO-BISM 00 (four) Medica l OL) 262 mg times Branch tablet daily as needed (diarrhea) . acetaminoph 2020-0 Yes [id number] 650mg Take 1 [facility] en 650 mg 5-07 tablet by ity o f CR tablet 00:00: mouth [place] 00 every 8 Medical (eight) Branch hours as needed for Pain or Fever. bromphenira 2020-0 Yes [id number] 10mL Take 10 mL [facility] mine-pseudo 5-07 by mouth 4 it y of ephedrine-D 00:00: (four) [place] (BROMFED 00 times Medical DM) 2-30-10 daily as Bran ch mg/5 mL needed for syrup Cough. Bismuth 2020-0 Yes [id number] 262mg Take 1 [facility] Subsalicyla 5-07 tablet by ity of te 00:00: mouth 4 [place] (PEPTO-BISM 00 (four) Medica l OL) 262 mg times Branch tablet daily as needed (diarrhea) . acetaminoph 2020-0 Yes [id number] 650mg Take 1 [facility] en 650 mg 5-07 tablet by ity o f CR tablet 00:00: mouth [place] 00 every 8 Medical (eight) Branch hours as needed for Pain or Fever. bromphenira 2020-0 Yes [id number] 10mL Take 10 mL [facility] mine-pseudo 5-07 by mouth 4 it y of ephedrine-D 00:00: (four) [place] (BROMFED 00 times Medical DM) 2-30-10 daily as Bran ch mg/5 mL needed for syrup Cough. Bismuth 2020-0 Yes [id number] 262mg Take 1 [facility] Subsalicyla 5-07 tablet by ity of te 00:00: mouth 4 [place] (PEPTO-BISM 00 (four) Medica l OL) 262 mg times Branch tablet daily as needed (diarrhea) . acetaminoph 2020-0 Yes [id number] 650mg Take 1 [facility] en 650 mg 5-07 tablet by ity o f CR tablet 00:00: mouth [place] 00 every 8 Medical (eight) Branch hours as needed for Pain or Fever. bromphenira 2020-0 Yes [id number] 10mL Take 10 mL [facility] mine-pseudo 5-07 by mouth 4 it y of ephedrine-D 00:00: (four) [place] (BROMFED 00 times Medical DM) 2-30-10 daily as Bran ch mg/5 mL needed for syrup Cough. Bismuth 2020-0 Yes [id number] 262mg Take 1 [facility] Subsalicyla 5-07 tablet by ity of te 00:00: mouth 4 [place] (PEPTO-BISM 00 (four) Medica l OL) 262 mg times Branch tablet daily as needed (diarrhea) . acetaminoph 2020-0 Yes [id number] 650mg Take 1 [facility] en 650 mg 5-07 tablet by ity o f CR tablet 00:00: mouth [place] 00 every 8 Medical (eight) Branch hours as needed for Pain or Fever. bromphenira 2020-0 Yes [id number] 10mL Take 10 mL [facility] mine-pseudo 5-07 by mouth 4 it y of ephedrine-D 00:00: (four) [place] (BROMFED 00 times Medical DM) 2-30-10 daily as Bran ch mg/5 mL needed for syrup Cough. Bismuth 2020-0 Yes [id number] 262mg Take 1 [facility] Subsalicyla 5-07 tablet by ity of te 00:00: mouth 4 [place] (PEPTO-BISM 00 (four) Medica l OL) 262 mg times Branch tablet daily as needed (diarrhea) . acetaminoph 2020-0 Yes [id number] 650mg Take 1 [facility] en 650 mg 5-07 tablet by ity o f CR tablet 00:00: mouth [place] 00 every 8 Medical (eight) Branch hours as needed for Pain or Fever. bromphenira 2020-0 Yes [id number] 10mL Take 10 mL [facility] mine-pseudo 5-07 by mouth 4 it y of ephedrine-D 00:00: (four) [place] (BROMFED 00 times Medical DM) 2-30-10 daily as Bran ch mg/5 mL needed for syrup Cough. Bismuth Yes [id number] 262mg Take 1 [facility] Subsalicyla 5-07 tablet by ity of te 00:00: mouth 4 [place] (PEPTO-BISM 00 (four) Medica l OL) 262 mg times Branch tablet daily as needed (diarrhea) . proMETHazin 2020- No [id number] 25mg Take 1 [facility] e 25 mg 5-07 02-20 tablet by ity of tablet 00:00: 00:00 mouth [place] 00 :00 every 6 Medical (six) Branch hours as needed for Nausea and Vomiting (N/V). butorphanol 2018-0 Yes 1{spray 1 spray by [...] 18:22: (two) Medical 22 times Center daily. traMADOL 50 2017-0 Yes 100mg Take 2 [...] as needed for Nausea and Vomiting (N/V). Humulin N No 15 unit, Jose Luis antonio 5-23 0.15 mL, l 19:30: Route: [place] SUB-Q, Drug form: INJ, Q12H, Start date: 08/20/15 14:30:00 CDT, Duration: 30 day, Stop date: 09/19/15 9:00:00 CDT Promethazin Yes 12.5 mg = M emoria e 5-23 1 tab, PO, l Hydrochlori 19:30: Q6H, PRN He rmann de 12.5 MG 00 Nausea & Oral Tablet Vomiting, [Phenergan] X 5 day, # 20 tab, 0 Refill(s) Humulin N No 15 unit, Jose Luis antonio 5-23 0.15 mL, l 19:30: Route: [place] SUB-Q, Drug form: INJ, Q12H, Start date: 08/20/15 14:30:00 CDT, Duration: 30 day, Stop date: 09/19/15 9:00:00 CDT Promethazin Yes 12.5 mg = M emoria e 5-23 1 tab, PO, l Hydrochlori 19:30: Q6H, PRN He rmann de 12.5 MG 00 Nausea & Oral Tablet Vomiting, [Phenergan] X 5 day, # 20 tab, 0 Refill(s) Humulin N No 15 unit, Jose Luis antonio 5-23 0.15 mL, l 19:30: Route: [place] SUB-Q, Drug form: INJ, Q12H, Start date: 08/20/15 14:30:00 CDT, Duration: 30 day, Stop date: 09/19/15 9:00:00 CDT Promethazin 2015- Yes 12.5 mg = M emoria e 5-23 1 tab, PO, l Hydrochlori 19:30: Q6H, PRN He rmann de 12.5 MG 00 Nausea & Oral Tablet Vomiting, [Phenergan] X 5 day, # 20 tab, 0 Refill(s) tramadol No 50 mg, Memoria hydrochlori 5-23 Route: PO, l de 50 MG 19:22: Drug form: Her medrano Oral Tablet 00 TAB, ONCE, Dosing Weight 103.182, kg, Start date: 08/20/15 14:22:00 CDT, Stop date: 08/20/15 14:22:00 CDT tramadol 2015-0 No 50 mg, [facility] hydrochlori 5-23 Route: PO, l de 50 MG 19:22: Drug form: Her medrano Oral Tablet 00 TAB, ONCE, Dosing Weight 103.182, kg, Start date: 08/20/15 14:22:00 CDT, Stop date: 08/20/15 14:22:00 CDT tramadol 2015-0 No 50 mg, [facility] hydrochlori -23 Route: PO, l de 50 MG 19:22: Drug form: Her medrano Oral Tablet 00 TAB, ONCE, Dosing Weight 103.182, kg, Start date: 08/20/15 14:22:00 CDT, Stop date: 08/20/15 14:22:00 CDT Metoclopram No Notes: Jose Luis antonio meredith 5-23 (Same as: l 15:00: Reglan) ketOROLAC 0 No 4 days Memor ia 30 mg/mL 5-23 l injectable 15:00: MEDICATION H ermann solution WASTE Product Size: 30 mg Product Wasted: ___ mg Diphenhydra No Notes: Jose Luis antonio mine 5-23 (Same as: l 15:00: Benadryl) Metoclopram No Notes: Jose Luis antonio meredith 5-23 (Same as: l 15:00: Reglan) ketOROLAC No 4 days Memor ia 30 mg/mL 5-23 l injectable 15:00: MEDICATION H ermann solution 00 WASTE Product Size: 30 mg Product Wasted: ___ mg Diphenhydra No Notes: Jose Luis antonio mine 5-23 (Same as: l 15:00: Benadryl) Metoclopram No Notes: Jose Luis antonio meredith -23 (Same as: l 15:00: Reglan) ketOROLAC No 4 days Memor ia 30 mg/mL 08-19 l injectable 15:00: MEDICATION H ermann solution WASTE Product Size: 30 mg Product Wasted: ___ mg Diphenhydra No Notes: Jose Luis antonio mine 5-23 (Same as: l 15:00: Benadryl) Phenergan No 12.5 mg, Jose Luis antonio 5-23 0.5 mL, l 14:13: Route: IVPB, Drug form: INJ, Q6Hnow, Dosing Weight 103.182, kg, Priority: NOW, Start date: 08/20/15 9:13:00 CDT, Duration: 30 day, Stop date: 09/19/15 3:13:00 CDT Phenergan 2015- No 12.5 mg, Jose Luis antonio 5-23 0.5 mL, l 14:13: Route: IVPB, Drug form: INJ, Q6Hnow, Dosing Weight 103.182, kg, Priority: NOW, Start date: 08/20/15 9:13:00 CDT, Duration: 30 day, Stop date: 09/19/15 3:13:00 CDT Phenergan 2015- No 12.5 mg, Jose Luis antonio 5-23 0.5 mL, l 14:13: Route: IVPB, Drug form: INJ, Q6Hnow, Dosing Weight 103.182, kg, Priority: NOW, Start date: 08/20/15 9:13:00 CDT, Duration: 30 day, Stop date: 09/19/15 3:13:00 CDT 24 HR Yes 250 mg = 1 Memori a Divalproex 5-23 tab, PO, l Sodium 250 14:07: BID, # 60 He rmann MG Extended 49 tab, 1 Release Refill(s) Tablet [Depakote] 24 HR Yes 250 mg = 1 Memori a Divalproex 5-23 tab, PO, l Sodium 250 14:07: BID, # 60 He rmann MG Extended 49 tab, 1 Release Refill(s) Tablet [Depakote] 24 HR Yes 250 mg = 1 Memori a Divalproex 5-23 tab, PO, l Sodium 250 14:07: BID, # 60 He rmann MG Extended 49 tab, 1 Release Refill(s) Tablet [Depakote] Aspirin 81 Yes 81 mg = 1 Me moria MG Chewable 5-23 tab, PO, l Tablet 14:07: Daily, # [place] 42 30 tab, 3 Refill(s) Aspirin 81 Yes 81 mg = 1 Me moria MG Chewable 5-23 tab, PO, l Tablet 14:07: Daily, # [place] 42 30 tab, 3 Refill(s) Aspirin 81 Yes 81 mg = 1 Me moria MG Chewable 5-23 tab, PO, l Tablet 14:07: Daily, # [place] 42 30 tab, 3 Refill(s) 24 HR No 250 mg = 1 Memori a Divalproex 5-23 tab, PO, l Sodium 250 14:04: BID, # 60 He rmann MG Extended 00 tab, 1 Release Refill(s) Tablet [Depakote] Aspirin 81 No 81 mg = 1 Me moria MG Chewable 5-23 tab, PO, l Tablet 14:04: Daily, # [place] 00 30 tab, 3 Refill(s) 24 HR No 250 mg = 1 Memori a Divalproex 5-23 tab, PO, l Sodium 250 14:04: BID, # 60 He rmann MG Extended 00 tab, 1 Release Refill(s) Tablet [Depakote] Aspirin 81 No 81 mg = 1 Me moria MG Chewable 5-23 tab, PO, l Tablet 14:04: Daily, # [place] 00 30 tab, 3 Refill(s) 24 HR No 250 mg = 1 Memori a Divalproex 5-23 tab, PO, l Sodium 250 14:04: BID, # 60 He rmann MG Extended 00 tab, 1 Release Refill(s) Tablet [Depakote] Aspirin 81 2015-0 No 81 mg = 1 Me moria MG Chewable 5-23 tab, PO, l Tablet 14:04: Daily, # 00 30 tab, 3 Refill(s) Aspirin No Notes: Memoria 5-23 Take with l 13:49: food. Aspirin No Notes: [facility] 5-23 Take with l 13:49: food. Aspirin No Notes: [facility] 5-23 Take with l 13:49: food. Ceftriaxone No Notes: Jose Luis antonio 5-22 (Same As: l 20:00: Rocephin). Use with 100 mL NS and infuse over 30 min MEDICATION WASTE Product Size: 1000 mg Product Wasted: ___ mg Ceftriaxone No Notes: Jose Luis antonio 5-22 (Same As: l 20:00: Rocephin). Use with 100 mL NS and infuse over 30 min MEDICATION WASTE Product Size: 1000 mg Product Wasted: ___ mg Ceftriaxone No Notes: Jose Luis antonio 5-22 (Same As: l 20:00: Rocephin). Use with 100 mL NS and infuse over 30 min MEDICATION WASTE Product Size: 1000 mg Product Wasted: ___ mg ketOROLAC 2016-0 No 4 days Memor ia 30 mg/mL 5-22 l injectable 15:09: MEDICATION H ermann solution 00 WASTE Product Size: 30 mg Product Wasted: ___ mg ketOROLAC 2016-0 No 4 days Memor ia 30 mg/mL 5-22 l injectable 15:09: MEDICATION H ermann solution 00 WASTE Product Size: 30 mg Product Wasted: ___ mg ketOROLAC 2016-0 No 4 days Memor ia 30 mg/mL 5-22 l injectable 15:09: MEDICATION H ermann solution 00 WASTE Product Size: 30 mg Product Wasted: ___ mg Propranolol 2015-0 No Notes: Jose Luis antonio 5-22 Give with l 14:00: food. (Same as: Inderal) Clonazepam No Notes: Memor ia 5-22 (Same As: l 14:00: KlonoPIN) [place] 00 Celexa No Notes: Memoria 5-22 (Same As: l 14:00: CeleXA) [place] 00 Abilify No Notes: Memoria 5-22 Non-Formul l 14:00: ricardo Drug. Daniel 00 (Same as: Abilif) Propranolol No Notes: Jose Luis antonio 5-22 Give with l 14:00: food. [place] 00 (Same as: Inderal) Clonazepam No Notes: Memor ia 5-22 (Same As: l 14:00: KlonoPIN) Celexa No Notes: [facility]oria 5-22 (Same As: l 14:00: CeleXA) Abilify No Notes: [facility]oria 5-22 Non-Formul l 14:00: ricardo Drug. [place] 00 (Same as: Abilif) Propranolol No Notes: Jose Luis antonio 5-22 Give with l 14:00: food. [place] 00 (Same as: Inderal) Clonazepam No Notes: Memor ia 5-22 (Same As: l 14:00: KlonoPIN) Celexa No Notes: Memoria 5-22 (Same As: l 14:00: CeleXA) Abilify No Notes: [facility]oria 5-22 Non-Formul l 14:00: ricardo Drug. [place] 00 (Same as: Abili) heparin No Notes: Memoria 5-22 porcine l 13:00: heparin [place] 00 heparin No Notes: Memoria 5-22 porcine l 13:00: heparin [place] 00 heparin No Notes: Memoria 5-22 porcine l 13:00: heparin [place] 00 Ambien No Notes: Memoria 5-22 (Same As: l 09:50: Ambien) [place] 00 Ambien No Notes: Memoria 5-22 (Same As: l 09:50: Ambien) [place] 00 Ambien 2016-0 No Notes: Memoria 5-22 (Same As: l 09:50: Ambien) [place] 00 Ondansetron 2015- No Notes: Jose Luis antonio 5-22 (Same as: l 09:48: Zofran) Daniel 00 MEDICATION WASTE Product Size: 4 mg Product Wasted: ___ mg Ondansetron No Notes: Jose Luis antonio 5-22 (Same as: l 09:48: Zofran) [place] 00 MEDICATION WASTE Product Size: 4 mg Product Wasted: ___ mg Ondansetron No Notes: Jose Luis antonio 5-22 (Same as: l 09:48: Zofran) Daniel 00 MEDICATION WASTE Product Size: 4 mg Product Wasted: ___ mg Regular No 60 units) Jose Luis antonio Insulin, 5-22 WASTE: F/P l Human 100 07:20: - Black; E He rmann UNT/ML 00 - Injectable Municipal Solution Trash Bin Stable for 28 days at room temperatur e Expires in days from ____Date Dextrose No 6.25 gm, Memor ia 50% Syringe 5-22 12.5 mL, l 07:20: Route: [place] 00 IVP, Drug Form: INJ, Dosing Weight 103.182, kg, PRN, PRN Abnormal Lab Result, Start date: 08/19/15 2:20:00 CDT, Duration: 30 day, Stop date: 09/18/15 2:19:00 CDT Regular No 60 units) Jose Luis antonio Insulin, -22 WASTE: F/P l Human 100 07:20: - Black; E Jose rmann UNT/ML 00 - Injectable Municipal Solution Trash Bin Stable for 28 days at room temperatur e Expires in days from ____Date Dextrose No 6.25 gm, Memor ia 50% Syringe 5-22 12.5 mL, l 07:20: Route: [place] 00 IVP, Drug Form: INJ, Dosing Weight 103.182, kg, PRN, PRN Abnormal Lab Result, Start date: 08/19/15 2:20:00 CDT, Duration: 30 day, Stop date: 09/18/15 2:19:00 CDT Regular No 60 units) Jose Luis antonio Insulin, - WASTE: F/P l Human 100 07:20: - Black; E He rmann UNT/ML 00 - Injectable Municipal Solution Trash Bin Stable for 28 days at room temperatur e Expires in days from ____Date Dextrose No 6.25 gm, Memor ia 50% Syringe 08-18 12.5 mL, l 07:20: Route: [place] 00 IVP, Drug Form: INJ, Dosing Weight 103.182, kg, PRN, PRN Abnormal Lab Result, Start date: 08/19/15 2:20:00 CDT, Duration: 30 day, Stop date: 09/18/15 2:19:00 CDT Phenergan No Notes: Do Mem oria 5-22 not give l 07:18: IV push. [place] 00 (Same as: Phenergan) Benadryl No Notes: Memoria 5-22 (Same as: l 07:18: Benadryl) [place] Magnesium No Notes: Memori a Sulfate -22 WASTE: F/P l 07:18: - Sink; E Daniel - Municipal Trash Bin Valproic No Notes: Memoria Acid 100 5-22 Dilute in l MG/ML 07:18: at least [place] Injectable 00 50ml D5W Solution or NS. [Depacon] (Same As: Depacon) Phenergan No Notes: Do Mem oria 5-22 not give l 07:18: IV push. Daniel 00 (Same as: Phenergan) Benadryl No Notes: Memoria 5-22 (Same as: l 07:18: Benadryl) Daniel 00 Magnesium No Notes: Memori a Sulfate 5-22 WASTE: F/P l 07:18: - Sink; E Daniel 00 - Municipal Trash Bin Valproic No Notes: Memoria Acid 100 5-22 Dilute in l MG/ML 07:18: at least [place] Injectable 00 50ml D5W Solution or NS. [Depacon] (Same As: Depacon) Phenergan No Notes: Do Mem oria 5-22 not give l 07:18: IV push. (Same as: Phenergan) Benadryl No Notes: Memoria 5-22 (Same as: l 07:18: Benadryl) Magnesium No Notes: Memori a Sulfate 08-18 WASTE: F/P l 07:18: - Sink; E [place] - [facility] Trash Bin Valproic No Notes: Memoria Acid 100 08-18 Dilute in l MG/ML 07:18: at least Daniel Injectable 00 50ml D5W Solution or NS. [Depacon] (Same As: Depacon) tizanidine Yes PO, BID, 0 M emoria 5-22 Refill(s) l 07:17: tizanidine Yes PO, BID, 0 M emoria 5-22 Refill(s) l 07:17: tizanidine Yes PO, BID, 0 M emoria 5-22 Refill(s) l 07:17: propranolol Yes 60 mg = 1 M emoria 60 mg oral 5-22 cap, PO, l capsule, 06:49: Daily, # Emerita nn extended 00 30 cap, 0 release Refill(s) Belsomra Yes 30, PO, Memori a 5-22 Bedtime, 0 l 06:49: Refill(s) clonazePAM No 0.5 mg = 1 M emoria 0.5 mg oral 5-22 tab, PO, l tablet 06:49: BID, # 30 Dannie n 00 tab, 0 Refill(s) Acetaminoph No See Memori a en 325 MG / 5-22 Instructio l Hydrocodone 06:49: ns, PRN Her medrano Bitartrate 00 Pain, 1 5 MG Oral tab PO Tablet Q12H 15 [[place] day, 0 5/325] Refill(s) aripiprazol Yes 30 mg = 1 M emoria e 30 MG 5-22 tab, PO, l Oral Tablet 06:49: Daily, # Jose rmann [Abilify] 00 30 tab, 0 Refill(s) Sumatriptan Yes See Memori a 5-22 Instructio l 06:49: ns, ONCE, Daniel 00 0 Refill(s) Metformin Yes 500 mg = 1 Me moria hydrochlori 5-22 tab, PO, l de 500 MG 06:49: BID-Meals, He rmann Oral Tablet 00 # 60 tab, 0 Refill(s) Citalopram Yes 20 mg = 1 Me moria 20 MG Oral 5-22 tab, PO, l Tablet 06:49: Daily, # Daniel [Celexa] 00 30 tab, 0 Refill(s) Acetaminoph No See Memori a en 325 MG / 5-22 Instructio l Hydrocodone 06:49: ns, PRN Her medrano Bitartrate 00 Pain, 1 5 MG Oral tab PO Tablet Q12H 15 [[place] day, 0 5/325] Refill(s) aripiprazol Yes 30 mg = 1 M emoria e 30 MG 5-22 tab, PO, l Oral Tablet 06:49: Daily, # Jose rmann [Abilify] 00 30 tab, 0 Refill(s) Sumatriptan Yes See Memori a 08-18 Instructio l 06:49: ns, ONCE, Daniel 00 0 Refill(s) Metformin Yes 500 mg = 1 Me moria hydrochlori 5-22 tab, PO, l de 500 MG 06:49: BID-Meals, He rmann Oral Tablet 00 # 60 tab, 0 Refill(s) Citalopram Yes 20 mg = 1 Me moria 20 MG Oral 5-22 tab, PO, l Tablet 06:49: Daily, # Daniel [Celexa] 00 30 tab, 0 Refill(s) propranolol Yes 60 mg = 1 M emoria 60 mg oral 5-22 cap, PO, l capsule, 06:49: Daily, # Emerita nn extended 00 30 cap, 0 release Refill(s) Belsomra 0 Yes 30, PO, Memori a 5-22 Bedtime, 0 l 06:49: Refill(s) Gilbert 00 clonazePAM No 0.5 mg = 1 M emoria 0.5 mg oral 5-22 tab, PO, l tablet 06:49: BID, # 30 Dannie n 00 tab, 0 Refill(s) Acetaminoph No See Memori a en 325 MG / 5-22 Instructio l Hydrocodone 06:49: ns, PRN Her medrano Bitartrate 00 Pain, 1 5 MG Oral tab PO Tablet Q12H 15 [[place] day, 0 5/325] Refill(s) aripiprazol Yes 30 mg = 1 M emoria e 30 MG 5-22 tab, PO, l Oral Tablet 06:49: Daily, # He rmann [Abilify] 00 30 tab, 0 Refill(s) Sumatriptan Yes See Memori a 5-22 Instructio l 06:49: ns, ONCE, Gilbert 00 0 Refill(s) Metformin Yes 500 mg = 1 Me moria hydrochlori 5-22 tab, PO, l de 500 MG 06:49: BID-Meals, He rmann Oral Tablet 00 # 60 tab, 0 Refill(s) Citalopram Yes 20 mg = 1 Me moria 20 MG Oral 5-22 tab, PO, l Tablet 06:49: Daily, # Gilbert [Celexa] 00 30 tab, 0 Refill(s) propranolol Yes 60 mg = 1 M emoria 60 mg oral 5-22 cap, PO, l capsule, 06:49: Daily, # Emerita nn extended 00 30 cap, 0 release Refill(s) Belsomra Yes 30, PO, Memori a 5-22 Bedtime, 0 l 06:49: Refill(s) Gilbert 00 clonazePAM No 0.5 mg = 1 M emoria 0.5 mg oral 5-22 tab, PO, l tablet 06:49: BID, # 30 Dannie n 00 tab, 0 Refill(s) HYDROcodone Yes 1{tbl} Take 1 Tab Univers [...] 1{tbl} Take 1 Tab Univers -acetaminop 1-30 20 by mouth ity of hen (NOR[place]) 00:00[place] 00:00 [place] 6 [place] 10-325 mg 00 :00 (six) Medical tablet hours as Branch needed for Pain (scale 4-6) or Pain (scale 7-10). Immunizations Ordered Filled Immunization Date Status Comments [facility] e Immunization Name Name Influenza Virus 2016-06-01 Completed Universit y of Vaccine Quad IM 3+ 00:00:00 [facility] Influenza Virus 2016-06-01 Completed Universit y of Vaccine Quad IM 3+ 00:00:00 [facility] Influenza Virus 2016-06-01 Completed Universit y of Vaccine Quad IM 3+ 00:00:00 [facility] Influenza Virus 2016-06-01 Completed Universit y of Vaccine Quad IM 3+ 00:00:00 [facility] Influenza Virus 2016-06-01 Completed Universit y of Vaccine Quad IM 3+ 00:00:00 [facility] Influenza Virus 2016-06-01 Completed Universit y of Vaccine Quad IM 3+ 00:00:00 [facility] Influenza Virus 2016-06-01 Completed Universit y of Vaccine Quad IM 3+ 00:00:00 [facility] Influenza Virus 2016-06-01 Completed Universit y of Vaccine Quad IM 3+ 00:00:00 [facility] Influenza Virus 2016-06-01 Completed Universit y of Vaccine Quad IM 3+ 00:00:00 [facility] Influenza Virus 2016-06-01 Completed Universit y of Vaccine Quad IM 3+ 00:00:00 [facility] Influenza Virus 2016-06-01 Completed Universit y of Vaccine Quad IM 3+ 00:00:00 [facility] Influenza Virus 2016-06-01 Completed Universit y of Vaccine Quad IM 3+ 00:00:00 [facility] Influenza Virus 2016-06-01 Completed Universit y of Vaccine Quad IM 3+ 00:00:00 [facility] Influenza Virus 2016-06-01 Completed Universit y of Vaccine Quad IM 3+ 00:00:00 [facility] Influenza Virus 2016-06-01 Completed Universit y of Vaccine Quad IM 3+ 00:00:00 [facility] Influenza Virus 2016-06-01 Completed Universit y of Vaccine Quad IM 3+ 00:00:00 [facility] Vital Signs Vital Name Observation Time Observation Value Comments Source Systolic blood 2022-05-25 23:16:00 147 mm[Hg] Univer sity of pressure [facility] Diastolic blood 2022-05-25 23:16:00 100 mm[Hg] Unive rsity of pressure [facility] Heart rate 2022-05-25 23:16:00 113 /min Universi ty of [facility] Body temperature 2022-05-25 23:16:00 37.22 Stella Univ ersity of [facility] Respiratory rate 2022-05-25 23:16:00 22 /min Univ ersity of [facility] Body height 2022-05-25 23:16:00 170.2 cm [facility] [place] Body weight 2022-05-25 23:16:00 108.863 kg [facility] BMI 2022-05-25 23:16:00 37.59 kg/m2 Universi ty of [facility] Oxygen saturation in 2022-05-25 23:16:00 98 /min University of [facility] blood by [place] [facility] nicole Pulse oximetry Branch Systolic blood 2021-03-30 03:00:00 125 mm[Hg] Univer sity of pressure [facility] Diastolic blood 2021-03-30 03:00:00 74 mm[Hg] Unive rsity of pressure [facility] Heart rate 2021-03-30 03:00:00 100 /min [facility] [place] Respiratory rate 2021-03-30 03:00:00 20 /min Univ ersity [facility] Oxygen saturation in 2021-03-30 03:00:00 100 /min [facility] of [facility] blood by [place] [facility] nicole Pulse oximetry Branch Body temperature 2021-03-29 23:35:00 36.61 Stella Univ ersity [facility] Body height 2021-03-29 23:35:00 160 cm [facility] Body weight 2021-03-29 23:35:00 98.884 kg [facility] BMI 2021-03-29 23:35:00 38.62 kg/m2 [facility] Systolic blood 2020-11-03 00:30:00 141 mm[Hg] Univer sity of pressure [facility] Diastolic blood 2020-11-03 00:30:00 85 mm[Hg] Unive rsity of pressure [facility] Heart rate 2020-11-03 00:30:00 83 /min [facility]i ty [facility] Respiratory rate 2020-11-03 00:30:00 13 /min Univ ersity of [facility] Oxygen saturation in 2020-11-03 00:30:00 97 /min University of Arterial blood by [facility] nicole Pulse oximetry Branch Body temperature 2020-11-02 18:48:00 37 Stella Univ ersity of [facility] Body weight 2020-11-02 18:48:00 93.441 kg [facility] ty [facility] BMI 2020-11-02 18:48:00 32.26 kg/m2 [facility] Systolic blood 2020-11-03 00:30:00 141 mm[Hg] Univer sity of pressure [facility] Diastolic blood 2020-11-03 00:30:00 85 mm[Hg] Unive rsity of pressure [facility] Heart rate 2020-11-03 00:30:00 83 /min [facility] ty [facility] Respiratory rate 2020-11-03 00:30:00 13 /min Univ ersity of [facility] Oxygen saturation in 2020-11-03 00:30:00 97 /min University of Arterial blood by [facility] Pulse oximetry Branch Body temperature 2020-11-02 18:48:00 37 Stella Univ ersity of [facility] Body weight 2020-11-02 18:48:00 93.441 kg [facility] ty [facility] BMI 2020-11-02 18:48:00 32.26 kg/m2 [facility] Systolic blood 2020-08-06 04:05:00 155 mm[Hg] Univer sity of pressure [facility] Diastolic blood 2020-08-06 04:05:00 101 mm[Hg] Unive rsity of pressure [facility] Heart rate 2020-08-06 04:05:00 92 /min [facility]i ty [facility] Respiratory rate 2020-08-06 04:05:00 19 /min Univ ersity of [facility] Oxygen saturation in 2020-08-06 04:05:00 99 /min [facility] by [place] [facility] Pulse oximetry Branch Body temperature 2020-08-06 01:37:00 36.89 Stella Univ ersity [facility] Body height 2020-08-06 01:37:00 170.2 cm [facility] Body weight 2020-08-06 01:37:00 93.895 kg [facility] BMI 2020-08-06 01:37:00 32.42 kg/m2 [facility] Systolic blood 2020-08-06 04:05:00 155 mm[Hg] Univer sity of pressure [facility] Diastolic blood 2020-08-06 04:05:00 101 mm[Hg] Unive rsity of pressure [facility] Heart rate 2020-08-06 04:05:00 92 /min [facility]i ty [facility] Respiratory rate 2020-08-06 04:05:00 19 /min Univ ersity of [facility] Oxygen saturation in 2020-08-06 04:05:00 99 /min [facility] blood by [place] [facility] Pulse oximetry Branch Body temperature 2020-08-06 01:37:00 36.89 Stella Univ ersity of [facility] Body height 2020-08-06 01:37:00 170.2 cm [facility] Body weight 2020-08-06 01:37:00 93.895 kg [facility] BMI 2020-08-06 01:37:00 32.42 kg/m2 [facility] Systolic blood 2020-07-23 01:00:00 140 mm[Hg] Univer sity of pressure [facility] Diastolic blood 2020-07-23 01:00:00 80 mm[Hg] Unive rsity of pressure [facility] Heart rate 2020-07-23 01:00:00 63 /min [facility]i ty [facility] Respiratory rate 2020-07-23 01:00:00 18 /min Univ ersity of [facility] Oxygen saturation in 2020-07-23 01:00:00 97 /min [facility] blood by [place] [facility] Pulse oximetry Branch Body temperature 2020-07-22 22:18:00 37.11 Stella Univ ersity of [facility] Body weight 2020-07-22 22:18:00 97.07 kg [facility] BMI 2020-07-22 22:18:00 33.52 kg/m2 [facility] Systolic blood 2020-07-23 01:00:00 140 mm[Hg] Univer sity of pressure [facility] Diastolic blood 2020-07-23 01:00:00 80 mm[Hg] Unive rsity of pressure [facility] Heart rate 2020-07-23 01:00:00 63 /min [facility]i ty [facility] Respiratory rate 2020-07-23 01:00:00 18 /min Univ ersity of [facility] Oxygen saturation in 2020-07-23 01:00:00 97 /min [facility] of Ar[facility] blood by [place] [facility] Pulse oximetry Branch Body temperature 2020-07-22 22:18:00 37.11 Stella Univ ersity of [facility] Body weight 2020-07-22 22:18:00 97.07 kg [facility] BMI 2020-07-22 22:18:00 33.52 kg/m2 [facility] Systolic blood 2020-05-20 00:00:00 156 mm[Hg] Univer sity of pressure [facility] Diastolic blood 2020-05-20 00:00:00 94 mm[Hg] Unive rsity of pressure [facility] Heart rate 2020-05-20 00:00:00 90 /min [facility]i ty [facility] Respiratory rate 2020-05-20 00:00:00 18 /min Univ ersity of [facility] Oxygen saturation in 2020-05-20 00:00:00 96 /min University of Ar[facility]ial blood by [place] [facility] nic[facility] Pulse oximetry Branch Body temperature 2020-05-19 21:37:00 37.11 Stella Univ ersity of [facility] Body height 2020-05-19 21:37:00 170.2 cm [facility] Body weight 2020-05-19 21:37:00 93.441 kg [facility] BMI 2020-05-19 21:37:00 32.26 kg/m2 [facility] Systolic blood 2020-05-20 00:00:00 156 mm[Hg] Univer sity of pressure [facility] Diastolic blood 2020-05-20 00:00:00 94 mm[Hg] Unive rsity of pressure [facility] Heart rate 2020-05-20 00:00:00 90 /min [facility]i ty [facility] Respiratory rate 2020-05-20 00:00:00 18 /min Univ ersity of [facility] Oxygen saturation in 2020-05-20 00:00:00 96 /min University of Arterial blood by [facility] nicole Pulse oximetry Branch Body temperature 2020-05-19 21:37:00 37.11 Stella Univ ersity of [facility] Body height 2020-05-19 21:37:00 170.2 cm [facility]i ty [facility] Body weight 2020-05-19 21:37:00 93.441 kg [facility] BMI 2020-05-19 21:37:00 32.26 kg/m2 [facility] Systolic blood 2019-08-22 07:00:00 165 mm[Hg] Univer sity of pressure [facility] Diastolic blood 2019-08-22 07:00:00 127 mm[Hg] Unive rsity of pressure [facility] Heart rate 2019-08-22 07:00:00 99 /min [facility]i ty [facility] Respiratory rate 2019-08-22 07:00:00 14 /min Univ ersity of [facility] Oxygen saturation in 2019-08-22 07:00:00 97 /min University of Arterial blood by [facility] Pulse oximetry Branch Body temperature 2019-08-22 04:58:00 37.5 Stella Univ ersity of [facility] Body weight 2019-08-22 04:58:00 92.987 kg [facility]i ty [facility] BMI 2019-08-22 04:58:00 32.11 kg/m2 [facility] ty [facility] Systolic blood 2019-08-22 07:00:00 165 mm[Hg] Univer sity of pressure [facility] Diastolic blood 2019-08-22 07:00:00 127 mm[Hg] Unive rsity of pressure [facility] Heart rate 2019-08-22 07:00:00 99 /min [facility]i ty [facility] Respiratory rate 2019-08-22 07:00:00 14 /min Univ ersity of [facility] Oxygen saturation in 2019-08-22 07:00:00 97 /min University of Arterial blood by [facility] Pulse oximetry [place] Body temperature 2019-08-22 04:58:00 37.5 Stella [facility] ersity of [facility] Body weight 2019-08-22 04:58:00 92.987 kg Universi ty of [facility] BMI 2019-08-22 04:58:00 32.11 kg/m2 Universi ty of [facility] Systolic blood 2019-08-04 19:56:00 133 mm[Hg] Univer sity of pressure [facility] Diastolic blood 2019-08-04 19:56:00 91 mm[Hg] Unive rsity of pressure [facility] Heart rate 2019-08-04 19:47:00 107 /min Universi ty of [facility] Body temperature 2019-08-04 19:47:00 37.06 Stella [facility] Respiratory rate 2019-08-04 19:47:00 20 /min [facility] Body height 2019-08-04 19:47:00 170.2 cm Universi ty of [facility] Body weight 2019-08-04 19:47:00 97.977 kg Universi ty of [facility] BMI 2019-08-04 19:47:00 33.83 kg/m2 Universi ty [facility] Oxygen saturation in 2019-08-04 19:47:00 100 /min University of Arterial blood by [facility] Pulse oximetry [place] Temperature Oral (F) 2020-10-22 22:11:00 98 F [facility] Heart Rate 2020-10-22 22:11:00 [facility] Respitory Rate 2020-10-22 22:11:00 Memori al [place] Systolic (mm Hg) 2020-10-22 22:11:00 Jose Luis rial [place] Diastolic (mm Hg) 2020-10-22 22:11:00 Mem orial [place] Temperature Oral (F) 2020-10-22 17:10:00 97.8 F [facility] Heart Rate 2020-10-22 17:10:00 [facility] Respitory Rate 2020-10-22 17:10:00 Memori al [place] Systolic (mm Hg) 2020-10-22 17:10:00 Jose Luis rial [place] Diastolic (mm Hg) 2020-10-22 17:10:00 Mem orial [place] Temperature Oral (F) 2020-10-22 12:56:00 98 F [facility] Heart Rate 2020-10-22 12:56:00 [facility] Respitory Rate 2020-10-22 12:56:00 Memori al Daniel Systolic (mm Hg) 2020-10-22 12:56:00 Jose Luis rial [place] Diastolic (mm Hg) 2020-10-22 12:56:00 Mem orial Daniel Height 2020-10-20 17:32:00 170.18 cm [facility] Weight 2020-10-20 17:32:00 [facility] BMI Calculated 2020-10-20 17:32:00 Memori al Daniel Heart Rate 2015-08-20 16:20:00 [facility] Respitory Rate 2015-08-20 16:20:00 Memori al [place] Systolic (mm Hg) 2015-08-20 16:20:00 Jose Luis rial [place] Diastolic (mm Hg) 2015-08-20 16:20:00 Mem orial [place] Respitory Rate 2015-08-20 13:05:00 Memori al Daniel Heart Rate 2015-08-20 13:05:00 [facility] Systolic (mm Hg) 2015-08-20 13:05:00 Jose Luis rial Daniel Diastolic (mm Hg) 2015-08-20 13:05:00 Mem orial [place] Heart Rate 2015-08-20 08:21:00 [facility] Respitory Rate 2015-08-20 08:21:00 Memori al [place] Systolic (mm Hg) 2015-08-20 08:21:00 Jose Luis rial [place] Diastolic (mm Hg) 2015-08-20 08:21:00 Mem orial Daniel BMI Calculated 2015-08-19 06:32:00 Memori al [place] Weight 2015-08-19 06:32:00 [facility] Height 2015-08-19 06:32:00 170.18 cm [facility] Procedures Procedure Date / Time Performing Clinician Source Performed CT ABDOMEN PELVIS W 2022-05-26 01:31:14 Carlos Barrera [facility] LIPASE 2022-05-26 00:14:00 Carlos Barrera [facility] COMP. METABOLIC PANEL 2022-05-26 00:14:00 Carlos Barrera [facility] ([id number]) Medical Branch CBC WITH DIFF 2022-05-26 00:14:00 Carlos Barrera [facility] URINALYSIS 2022-05-26 00:14:00 Bruce [facility] CONSENT/REFUSAL FOR 2022-05-25 22:51:34 Doctor Shy [facility] DIAGNOSIS AND TREATMENT [place] [facility] [place] AUTHORIZATION FOR RELEASE 2021-07-09 05:01:00 Doctor Shy, [facility] [place] XR CHEST 2 VW 2021-03-30 00:42:57 Krys Jewell [facility] CONSENT/REFUSAL FOR 2021-03-29 23:21:19 Doctor Shy [facility] DIAGNOSIS AND TREATMENT [place] [facility] [place] CT ABDOMEN PELVIS W 2020-11-02 22:44:07 Amari Maza [facility] CONTRAST Medical Branch MAGNESIUM 2020-11-02 22:10:00 Amari Maza Cristina [facility] TROPONIN I 2020-11-02 22:10:00 Meño [facility] COMP. METABOLIC PANEL 2020-11-02 22:10:00 Amari Maza [facility] ([id number]) [facility] [place] CBC WITH DIFF 2020-11-02 22:10:00 Amari Maza [facility] URINALYSIS 2020-11-02 22:10:00 Amari Maza [facility] NOTICE OF PRIVACY 2020-11-02 18:42:52 Doctor Shy [facility] PRACTICES [place] [facility] [place] CONSENT/REFUSAL FOR 2020-11-02 18:39:42 Doctor Begum [facility] DIAGNOSIS AND TREATMENT [place] [facility] [place] CT ABDOMEN PELVIS W 2020-08-06 03:33:07 Mayte Lamb [facility] CONTRAST Medical Branch COVID-19 (ID NOW RAPID 2020-08-06 02:57:00 Mayte Lamb [facility] TESTING) Medical Branch LIPASE 2020-08-06 02:22:00 Mayte Lamb [facility] COMP. METABOLIC PANEL 2020-08-06 02:22:00 Mayte Lamb [facility] ([id number]) [facility] CBC WITH DIFF 2020-08-06 02:22:00 Mayte Lamb [facility] LACTIC ACID WHOLE BLOOD 2020-08-06 02:22:00 Mayte Lamb [facility] URINALYSIS 2020-08-06 01:42:00 Jose Cruz Prakash [facility] CONSENT/REFUSAL FOR 2020-08-06 01:26:13 Doctor Unassigned, [facility] DIAGNOSIS AND TREATMENT [place] [facility] COVID-19 (ID NOW RAPID 2020-07-23 00:39:00 Mayte Lamb [facility] TESTING) Medical Branch CT CERVICAL SPINE WO 2020-07-22 23:06:25 Mayte Lamb [facility] CONTRAST [facility] CT HEAD WO CONTRAST 2020-07-22 23:06:25 Mayte Lamb [facility] XR CHEST 1 VW 2020-07-22 22:53:06 Mayte Lamb [facility] LIPASE 2020-07-22 22:51:00 Mayte Lamb [facility] TROPONIN I 2020-07-22 22:51:00 Mayte Lamb [facility] FREE T4 2020-07-22 22:51:00 Mayte Lamb [facility] THYROID STIMULATING 2020-07-22 22:51:00 Mayte Lamb [facility] HORMONE [facility] HEPATIC FUNCTION PANEL 2020-07-22 22:51:00 Mayte Lamb [facility] ([id number]) (ALB,T.PRO,BILI Medical Branch T,BU/BC,ALT,AST,ALK PHOS) BASIC METABOLIC PANEL (NA, 2020-07-22 22:51:00 Mayte Lamb [facility] K, CL, CO2, GLUCOSE, BUN, Medica l Branch CREATININE, CA) CBC WITH DIFF 2020-07-22 22:51:00 Mayte Lamb [facility] URINALYSIS 2020-07-22 22:51:00 Mayte Lamb [facility] N-TERMINAL PRO-BNP 2020-07-22 22:51:00 Mayte Lamb [facility] POCT GLUCOSE (AUTOMATED) 2020-07-22 22:17:00 Doctor Unafiliberto, [facility] Name Medical [place] CONSENT/REFUSAL FOR 2020-07-22 22:08:56 Doctor Shy [facility] DIAGNOSIS AND TREATMENT [facility] MEDICATION CORRESPONDENCE 2020-06-17 05:01:00 Doctor Shy [facility] LIPASE 2020-05-19 22:05:00 Pastora Esparza [facility] COMP. METABOLIC PANEL 2020-05-19 22:05:00 Pastora Esparza [facility] ([id number]) [facility] CBC WITH DIFF 2020-05-19 22:05:00 Pastora Esparza [facility] URINALYSIS 2020-05-19 22:05:00 Pastora Esparza [facility] NOTICE OF PRIVACY 2020-05-19 21:27:02 Doctor Shy, [facility] PRACTICES [place] [facility] [place] CONSENT/REFUSAL FOR 2020-05-19 21:26:36 Doctor Shy [facility] DIAGNOSIS AND TREATMENT [facility] POCT GLUCOSE (AUTOMATED) 2019-08-22 07:05:00 Jose [facility] 2019-08-22 05:18:00 Jose Cruz Prakash [facility] COMP. METABOLIC PANEL 2019-08-22 05:18:00 Jose Cruz Prakash [facility] ([id number]) [facility] CBC WITH DIFFERENTIAL 2019-08-22 05:18:00 Jose Cruz Prakash [facility] URINALYSIS 2019-08-22 05:05:00 Jose Cruz Prakash [facility] Medical Branch COVID-19 (ID NOW RAPID 2019-08-22 05:04:00 Jose Cruz Prakash [facility] TESTING) Medical Branch ASSIGNMENT OF BENEFITS 2019-08-22 04:32:23 Doctor Unassigned, [facility] [place] [facility] NOTICE OF PRIVACY 2019-08-22 04:32:08 Doctor Unassigned, [facility] PRACTICES [place] [facility] CONSENT/REFUSAL FOR 2019-08-22 04:31:55 Doctor Unassigned, [facility] DIAGNOSIS AND TREATMENT [place] [facility] BSO - Total abdominal 2000-08-18 05:00:00 Fidel Webster hysterectomy and bilateral salpingo-oophorectomy Laparoscopic 2000-03-30 00:00:00 Denia medrano cholecystectomy Abdomen repair Denia Sanchez Knee replacement Denia Pandey n Hysterectomy Denia Sanchez Encounters Start End Encounter Admission Attending Care Care Encounter Source Date/Time Date/Time Type Type Clinicians Facility Department ID 2022-04-04 Outpatient [facility] [id number] [place] 13:29:56 [id number] Health 2021-01-28 Emergency [facility] [id number] Univers 13:42:31 ity of [facility] 2021-01-27 Emergency [facility] [id number] Univers 17:59:52 ity of [facility] 2021-01-27 Emergency [facility] [id number] Univers 15:07:41 ity of [facility] 2021-01-27 Emergency [facility] [id number] Univers 00:15:52 ity of [facility] 2021-01-26 Emergency [facility] [id number] Univers 10:55:23 ity of [facility] 2021-01-24 Emergency [facility] [id number] Univers 22:08:18 ity of [facility] 2022-05-25 2022-05-25 Emergency Raj BARRERA MDSAMMI ERT [id number] Univers 17:18:00 21:26:00 CARLOS ity [facility] 2022-05-25 2022-05-25 Emergency Bruce [facility] [id number] Univers 17:18:00 21:26:00 Carlos FITZPATRICK [id number] i ty of [place] [id number] [facility] [id number] [place] [id number] Branch 2021-08-22 2021-08-22 Outpatient Severns_D VFP VFP [id number] 10-16 [facility] 11:00:00 11:00:00 [id number] Family Practic e 2021-07-09 2021-07-09 Orders Doctor IQRA 1.2.840.114 [id number] Univers 00:00:00 00:00:00 Only Unassigned, GREGORY 350.1.13.10 ity of [place] [address].2.7.2.686 Roberto [id number] [place] [address] Branch 2021-03-29 2021-03-29 Emergency [facility] [id number] Univers 17:36:00 21:51:00 KRYS landonholly of [facility] 2021-03-29 2021-03-29 Emergency [facility] 1.2.840.114 [id number] Univers 17:36:00 21:51:00 Krys NANETTE 350.1.13.10 i ty of [place] 4.2.7.2.686 [facility] [phone] [place] [address] Branch 2020-11-02 2020-11-02 Emergency Meño, K [facility] 1.2.840.114 [id number] 13:53:00 20:06:00 Cristina Fitzpatrick 350.1.13.10 [place] 4.2.7.2.686 [place] [id number] [facility] 2020-11-02 2020-11-02 Emergency Meño, K [facility] 1.2.840.114 [id number] Univers 13:53:00 20:06:00 Cristina Fitzpatrick 350.1.13.10 i ty of [place] 4.2.7.[address] [place] [address] [id number] [place] [address] Branch 2020-10-20 2020-10-22 Inpatient [facility] [id number] [facility] 16:58:00 23:52:00 rina Sanchez 05 l [facility] 2020-10-20 2020-10-22 Inpatient [facility]Flavo [facility] [id number] Memoria 16:58:00 23:52:00 r Daniel 05 l [facility] 2020-10-20 2020-10-22 Outpatient Deborah [facility] [id number] 11:58:00 18:52:00 Doug 05 2020-10-20 2020-10-22 [facility] 1205 [place] 11:58:00 18:52:00 DOUG l [facility] 2020-08-05 2020-08-05 Emergency [facility] 1.2.840.114 [id number] 20:44:00 23:55:00 Haileeo Isaac [place] 350.1.13.10 [place] 4.2.7.2.686 [place] [id number] 2020-08-05 2020-08-05 Emergency [facility] 1.2.840.114 [id number] [facility] 20:44:00 23:55:00 Haileeo Isaac [place] 350.1.13.10 ity of [place] 4.2.7.2.686 [facility] [phone] [facility] 084 Branch 2020-07-22 2020-07-22 [facility] 1.2.840.114 83 [id number] 17:17:00 20:14:00 Haileeo Isaac [place] 350.1.13.10 [place] 4.2.7.2.686 [place] [id number] [facility] 2020-07-22 2020-07-22 Emergency [facility] 1.2.840.114 [id number] [facility] 17:17:00 20:14:00 Haileeo Isaac [place] 350.1.13.10 ity [facility] 4.2.7.2.686 [facility] [id number] [place] [id number] Branch 2020-06-17 2020-06-17 Orders Doctor IQRA 1.2.840.114 [id number] 00:00:00 00:00:00 Only Unassigned, GREGORY 350.1.13.10 [place] [facility] 4.2.7.2.686 [id number] 009 2020-06-17 2020-06-17 Orders Doctor IQRA 1.2.840.114 [id number] Univers 00:00:00 00:00:00 Only Unassigned, GREGORY 350.1.13.10 ity of [place] [facility] 4.2.7.2.686 Roberto as [phone] [address] 2020-05-19 2020-05-19 Emergency [facility] 1.2.299.267 [id number] 15:45:00 18:07:00 Pastora S [place] 350.1.13.10 [place] 4.2.7.2.686 [place] [id number] [facility] 2020-05-19 2020-05-19 Emergency [facility] 1.2.461.244 [id number] [facility] 15:45:00 18:07:00 Pastora S [place] 350.1.13.10 i ty of [place] 4.2.7.2.686 [facility] [place] [id number] [address] 2019-08-21 2019-08-22 [facility] 1.2.065.224 [id number] 23:48:04 02:26:00 Jose Cruz Fitz[place] 350.1.13.10 [place] 4.2.7.2.686 [place] [id number] [facility] 2019-08-21 2019-08-22 [facility] 1.2.030.573 [id number] [facility] 23:48:04 02:26:00 Jose Cruz [place] 350.1.13.10 ity of [place] 4.2.7.2.686 [facility] [place] [phone] [place] [address] Branch 2019-08-06 2019-08-06 Telephone IQRA [place] 1.2.840.114 [id number] 00:00:00 00:00:00 Apoorva JENKINS 350.1.13.10 [facility] 4.2.7.2.686 [id number] 019 2019-08-06 2019-08-06 Telephone IQRA Box 1.2.418.882 [id number] 00:00:00 00:00:00 Jinny JENKINS 350.1.13.10 HOSPITAL 4.2.7.2.686 [id number] 019 2019-08-06 2019-08-06 Telephone IQRA [place] 1.2.840.114 [id number] Univers 00:00:00 00:00:00 Apoorva JENKINS 350.1.13.10 it y of HOSPITAL 4.2.7.2.686 Roberto as [phone] [address] 2019-08-06 2019-08-06 Telephone IQRA Box 1.2.680.493 [id number] Univers 00:00:00 00:00:00 Jinny JENKINS 350.1.13.10 it y of HOSPITAL 4.2.7.2.686 Roberto as [id number] [address] 2019-08-05 2019-08-05 Telephone IQRA Box 1.2.298.865 [id number] 00:00:00 00:00:00 Jinny JENKINS 350.1.13.10 HOSPITAL 4.2.7.2.686 [id number] 2019-08-05 2019-08-05 Telephone [facility] 1.2.840.114 [id number] Univers 00:00:00 00:00:00 [facility] 350.1.13.10 it y of [place] 4.2.7.2.686 Roberto as Professio [phone] [address] 2019-08-05 2019-08-05 Telephone QIRA Box 1.2.248.285 [id number] Univers 00:00:00 00:00:00 Jinny JENKINS 350.1.13.10 it y of HOSPITAL 4.2.7.2.686 Roberto as [phone] [address] 2019-08-04 2019-08-04 Urgent Pob1, Acute Care Clinic [facility] 1. 2.840.114 [id number] Univers 14:42:35 15:59:50 [facility] 350.1.13.10 ity of [place] 4.2.7.2.686 Roberto as Professio [id number] [address] Office [facility] 2019-08-04 2019-08-04 Outpatient R [facility] [id number] Univers 15:00:00 15:00:00 ity [facility] 2015-08-19 2015-08-20 [facility] [id number] Memoria 09:48:00 21:03:00 Observatio rina Sanchez 41 l n Patient [facility] 2015-08-19 2015-08-20 [facility] [id number] Memoria 09:48:00 21:03:00 Observatio rina Sanchez 41 l n Patient Hospital [facility] 2015-08-19 2015-08-20 Outpatient Maureen [facility] [id number] 04:48:00 16:03:00 Iqra Anderson Gregorio Results Test Test Test Results Result Source [...] No suspicious focal osseous lesions are seen. [facility], Radiant Results Inft User - 11/02/2020 6:23 [...] 0.000 ng/mL See_Comment [Au tomated message] The 4770527715) system which nerated this result tra nsmitted [...] biotin. Lab Interpretation Normal (test code = 32067-4) [facility] 22[facility]39:02 Test Item Value Reference Range Interpretation Comments APPEARANCE (test code = Clear Clear 5255069577) COLOR (test code = Yellow Yellow 0344665008) PH (test code = 4.8-8.0 1559388195) SP GRAVITY (test code = 1.003-1.030 3646200795) GLU U QUAL (test code = 50 mg/dL Normal A 9792398627) BLOOD (test code = 3+ Negative A 9640424568) KETONES (test code = Negative Negative 6806053859) PROTEIN (test code = Negative Negative 2887-8) UROBILIN (test code = Normal Normal 5014990216) BILIRUBIN (test code = Negative Negative 1709749634) NITRITE (test code = Negative Negative 4597659668) LEUK PARTH (test code = 25/uL Negative A 1299188012) RBC/HPF (test code = See_Comment [Autom ated message] 5025833269) The system [employer] generated this result transmitted ref erence range: 0 - 3 HP F. The reference range was not used to int erpret this result as normal/abnormal . WBC/HPF (test code = See_Comment [Autom ated message] 0486026332) The system [employer] generated this result transmitted ref erence range: 0 - 5 HP F. The reference range was not used to int erpret this result as normal/abnormal . BACTERIA (test code = Negative Negative 1068641114) MUCOUS (test code = Slight Negative LPF A 6497507931) SQ EPITH (test code = HPF 0790193485) Lab Interpretation (test Abnormal code = 07973-9) [facility] 22:38:26 Test Item Value Reference Range Interpretation Comments MAGNESIUM (test code = 2702189911) 1.4 mg/dL 1.7-2.4 L Lab Interpretation (test code = Abnormal 66325-6) [facility]OL[facility] (43648)2020-11-02 22:38:11 Test Item Value Reference Range Interpretation Comments NA (test code = 139 mmol/L 135-145 3185592342) K (test code = 3.7 mmol/L 3.5-5.0 7723057805) CL (test code = 102 mmol/L 98-108 5113517511) CO2 TOTAL (test code = 24 mmol/L 23-31 5703575939) AGAP (test code = 2-16 5319941361) BUN (test code = 16 mg/dL 7-23 3273986137) GLUCOSE (test code = 183 mg/dL 70-110 H 3697213176) CREATININE (test code = 0.64 mg/dL 0.50-1.04 8423547263) TOTAL BILI (test code = 0.2 mg/dL 0.1-1.9 9136023353) CALCIUM (test code = 10.4 mg/dL 8.6-10.6 2929905227) T PROTEIN (test code = 8.5 g/dL 6.3-8.2 H 4609364647) ALBUMIN (test code = 4.8 g/dL 3.5-5.0 6536475716) ALK PHOS (test code = 103 U/L 34-122 9007000678) ALTv (test code = 20 U/L 5-35 1742-6) AST(SGOT) (test code = 21 U/L 13-40 7631846766) eGFR (test code = mL/min/1.73m2 9824899667) FALLON (test code = FALLON) Association of [...] tests). Lab Interpretation Abnormal (test code = 58528-0) [facility] WITH [id number] 22:33:08 Test Item Value Reference Range Interpretation Comments WBC (test code = See_Comment [Automated 8691-2) message] The sy stem which generated this result transmitted reference range : 4.30 - 11.10 10*3/?L. The reference range was not used to interpret this result as normal/abnormal . RBC (test code = See_Comment [Automated 750-8) message] The sy stem which generated this [...] (test code = 38.5 fL 39.0-49.9 L 44299-1) RDW-CV (test code = 13.3 % 12.0-15.5 788-0) PLT (test code = See_Comment [Automated 507-3) message] The sy stem which generated this result transmitted reference range : 166 - 358 10*3/ ?L. The reference r farrah was not used to interpret this result as normal/abnormal . MPV (test code = 10.5 fL 9.5-12.9 81859-1) NRBC/100 WBC (test See_Comment [Automat ed code = 7554607230) message] The system which generated this result transmitted reference range : 0.0 - 10.0 /100 WBCs. The refer ence range was not u sed to interpret th is result as normal/abnormal . NRBC x10^3 (test code <0.01 See_Comment [Auto mated = 3993876336) message] The s ystem which generated this result transmitted reference range : 10*3/?L. The reference range was not used to interpret this result as normal/abnormal . GRAN MAT (NEUT) % 52.3 % (test code = 770-8) IMM GRAN % (test code 0.40 % = 2447292071) LYMPH % (test code = 37.8 % 736-9) MONO % (test code = 7.3 % 5905-5) EOS % (test code = 1.7 % 713-8) BASO % (test code = 0.5 % 706-2) GRAN MAT x10^3(ANC) 5.25 10*3/uL 1.88-7.09 (test code = 4660410689) IMM GRAN x10^3 (test 0.04 10*3/uL 0.00-0.06 code = 5885694525) LYMPH x10^3 (test code 3.79 10*3/uL 1.32-3.29 H = 731-0) MONO x10^3 (test code 0.73 10*3/uL 0.33-0.92 = 742-7) EOS x10^3 (test code = 0.17 10*3/uL 0.03-0.39 711-2) BASO x10^3 (test code 0.05 10*3/uL 0.01-0.07 = 704-7) Lab Interpretation Abnormal (test code = 21219-1) [facility] [id number] 11:29:00 Test Item Value Reference Range Interpretation Comments Creatinine Lvl (test code = Creatinine 0.64 0.50-1.40 Lvl) [facility] [id number] 11:29:00 Test Item Value Reference Range Interpretation Comments Sodium Lvl (test code = Sodium Lvl) 137 135-145 [place] 239741-07-26 11:29:00 Test Item Value Reference Range Interpretation Comments Potassium Lvl (test code = Potassium 3.3 3.5-5.1 Lvl) [place] 239741-07-26 11:29:00 Test Item Value Reference Range Interpretation Comments Chloride Lvl (test code = Chloride Lvl) 105 95-109 [place] 239741-07-26 11:29:00 Test Item Value Reference Range Interpretation Comments CO2 (test code = CO2) 27 24-32 [place] 239741-07-26 11:29:00 Test Item Value Reference Range Interpretation Comments Calcium Lvl (test code = Calcium Lvl) 8.6 8.5-10.5 [place] 239741-07-26 11:29:00 Test Item Value Reference Range Interpretation Comments Albumin Lvl (test code = Albumin Lvl) 3.2 3.5-5.0 [place] 239741-07-26 11:29:00 Test Item Value Reference Range Interpretation Comments ALT (test code = ALT) 31 See_Comment [Auto mated message] The system which ge nerated this result transmit jesse reference range : <=65. The reference range was not used to interpr et this result as laura l/abnormal. [facility]2021-07-26 11:29:00 Test Item Value Reference Range Interpretation Comments AST (test code = AST) 16 See_Comment [Auto mated message] The system which ge nerated this result transmit jesse reference range : <=37. The reference range was not used to interpr et this result as laura l/abnormal. [place] 239741-07-26 11:29:00 Test Item Value Reference Range Interpretation Comments Bili Total (test code = Bili Total) 0.4 0.2-1.3 [place] 239741-07-26 11:29:00 Test Item Value Reference Range Interpretation Comments AGAP (test code = AGAP) 8.3 10.0-20.0 [place] 239741-07-26 11:29:00 Test Item Value Reference Range Interpretation Comments B/C Ratio (test code = B/C Ratio) 11 1 6-25 [place] 239741-07-26 11:29:00 Test Item Value Reference Range Interpretation Comments eGFR (test code = eGFR) 103 [place] 239741-07-26 11:29:00 Test Item Value Reference Range Interpretation Comments Total Protein (test code = Total 6.7 6.4-8.4 Protein) [place] 239741-07-26 11:29:00 Test Item Value Reference Range Interpretation Comments Alk Phos (test code = Alk Phos) 80 39-136 [place] 239741-07-26 11:29:00 Test Item Value Reference Range Interpretation Comments Globulin (test code = Globulin) 3.5 2.7-4.2 [place] 239741-07-26 11:29:00 Test Item Value Reference Range Interpretation Comments A/G Ratio (test code = A/G Ratio) 0.9 1 0.7-1.6 [place] 239741-07-26 11:29:00 Test Item Value Reference Range Interpretation Comments Phosphorus (test code = Phosphorus) 2.9 2.5-4.5 [place] 239741-07-26 11:29:00 Test Item Value Reference Range Interpretation Comments Magnesium Lvl (test code = Magnesium 1.7 1.8-2.4 Lvl) [place] 124571-07-26 11:29:00 Test Item Value Reference Range Interpretation Comments WBC (test code = WBC) 7.4 3.7-10.4 [place] 124571-07-26 11:29:00 Test Item Value Reference Range Interpretation Comments RBC (test code = RBC) 4.67 4.20-5.40 [place] [address]-07-26 11:29:00 Test Item Value Reference Range Interpretation Comments Hgb (test code = Hgb) 12.3 12.0-16.0 [place] [address]-07-26 11:29:00 Test Item Value Reference Range Interpretation Comments Hct (test code = Hct) 36.0 36.0-48.0 [place] [address]-07-26 11:29:00 Test Item Value Reference Range Interpretation Comments MCV (test code = MCV) 77.0 80.0-98.0 [place] 124571-07-26 11:29:00 Test Item Value Reference Range Interpretation Comments MCH (test code = MCH) 26.4 pg 27.0-31.0 [facility]yjossaDNJPINTIUV3249-75-67 11:29:00 Test Item Value Reference Range Interpretation Comments MCHC (test code = MCHC) 34.2 32.0-36.0 [place] 124571-07-26 11:29:00 Test Item Value Reference Range Interpretation Comments RDW (test code = RDW) 14.1 11.5-14.5 [facility]cosXvlnrooSUYFSWWSKY8039-15-22 11:29:00 Test Item Value Reference Range Interpretation Comments Platelet (test code = Platelet) 233 133-450 [facility]cosOquvchcFKHVGUMWPU6605-76-89 11:29:00 Test Item Value Reference Range Interpretation Comments MPV (test code = MPV) 9.1 7.4-10.4 [place] 124571-07-26 11:29:00 Test Item Value Reference Range Interpretation Comments Segs (test code = Segs) 46.1 45.0-75.0 [facility]cosRckzhwmOJWDSBGSWA5884-62-09 11:29:00 Test Item Value Reference Range Interpretation Comments Lymphocytes (test code = Lymphocytes) 40.9 20.0-40.0 [facility]cosIxwskokLPWUBYEIIO2784-52-11 11:29:00 Test Item Value Reference Range Interpretation Comments Monocytes (test code = Monocytes) 7.9 2.0-12.0 [facility]cosTjikrrjMCLUHLAHMR6432-64-73 11:29:00 Test Item Value Reference Range Interpretation Comments Eosinophils (test code = 4.3 See_Comment [A utomated message] The Eosinophils) system which ge nerated this result tra nsmitted reference range : <=4.0. The reference r farrah was not used to int erpret this result as normal/abnormal . [facility]cosWztwlviLCRIQKMEER8456-65-15 11:29:00 Test Item Value Reference Range Interpretation Comments Basophils (test code = 0.8 See_Comment [Aut omated message] The Basophils) system which ge nerated this result tra nsmitted reference range : <=1.0. The reference r farrah was not used to int erpret this result as normal/abnormal . [facility]cosIyjhjpxOKTRCHRWOO2544-91-52 11:29:00 Test Item Value Reference Range Interpretation Comments Neutrophils # (test code = Neutrophils 3.4 1.5-8.1 #) [place] 124571-07-26 11:29:00 Test Item Value Reference Range Interpretation Comments Lymphocytes # (test code = Lymphocytes 3.0 1.0-5.5 #) [place] 239741-07-26 11:29:00 Test Item Value Reference Range Interpretation Comments Glucose Lvl (test code = Glucose Lvl) 215 70-99 [place] 239741-07-26 11:29:00 Test Item Value Reference Range Interpretation Comments BUN (test code = BUN) 7 7-22 [place] 239741-07-26 11:29:00 Test Item Value Reference Range Interpretation Comments Creatinine Lvl (test code = Creatinine 0.64 0.50-1.40 Lvl) [place] 239741-07-26 11:29:00 Test Item Value Reference Range Interpretation Comments Sodium Lvl (test code = Sodium Lvl) 137 135-145 [place] 239741-07-26 11:29:00 Test Item Value Reference Range Interpretation Comments Potassium Lvl (test code = Potassium 3.3 3.5-5.1 Lvl) [place] 239741-07-26 11:29:00 Test Item Value Reference Range Interpretation Comments Chloride Lvl (test code = Chloride Lvl) 105 95-109 [place] 239741-07-26 11:29:00 Test Item Value Reference Range Interpretation Comments CO2 (test code = CO2) 27 24-32 [place] 239741-07-26 11:29:00 Test Item Value Reference Range Interpretation Comments Calcium Lvl (test code = Calcium Lvl) 8.6 8.5-10.5 [place] 124571-07-26 11:29:00 Test Item Value Reference Range Interpretation Comments Monocytes # (test code 0.6 See_Comment [Aut omated message] The = Monocytes #) system which generated this result tra nsmitted reference range : <=0.8. The reference r farrah was not used to int erpret this result as normal/abnormal . [place] 239741-07-26 11:29:00 Test Item Value Reference Range Interpretation Comments Albumin Lvl (test code = Albumin Lvl) 3.2 3.5-5.0 [place] 239741-07-26 11:29:00 Test Item Value Reference Range Interpretation Comments ALT (test code = ALT) 31 See_Comment [Auto mated message] The system which ge nerated this result transmit jesse reference range : <=65. The reference range was not used to interpr et this result as laura l/abnormal. [place] 239741-07-26 11:29:00 Test Item Value Reference Range Interpretation Comments AST (test code = AST) 16 See_Comment [Auto mated message] The system which ge nerated this result transmit jesse reference range : <=37. The reference range was not used to interpr et this result as laura l/abnormal. [place] 239741-07-26 11:29:00 Test Item Value Reference Range Interpretation Comments Bili Total (test code = Bili Total) 0.4 0.2-1.3 [place] 239741-07-26 11:29:00 Test Item Value Reference Range Interpretation Comments AGAP (test code = AGAP) 8.3 10.0-20.0 [place] 239741-07-26 11:29:00 Test Item Value Reference Range Interpretation Comments B/C Ratio (test code = B/C Ratio) 11 1 6-25 [place] 239741-07-26 11:29:00 Test Item Value Reference Range Interpretation Comments eGFR (test code = eGFR) 103 [place] 239741-07-26 11:29:00 Test Item Value Reference Range Interpretation Comments Total Protein (test code = Total 6.7 6.4-8.4 Protein) [place] 239741-07-26 11:29:00 Test Item Value Reference Range Interpretation Comments Alk Phos (test code = Alk Phos) 80 39-136 [facility]2021-07-26 11:29:00 Test Item Value Reference Range Interpretation Comments Globulin (test code = Globulin) 3.5 2.7-4.2 [facility]cosVmxqyrzSZRDNEKDCO4196-86-29 11:29:00 Test Item Value Reference Range Interpretation Comments Eosinophils # (test code 0.3 See_Comment [A utomated message] The = Eosinophils #) system whic h generated this result tra nsmitted reference range : <=0.5. The reference r farrah was not used to int erpret this result as normal/abnormal . [facility]2021-07-26 11:29:00 Test Item Value Reference Range Interpretation Comments A/G Ratio (test code = A/G Ratio) 0.9 1 0.7-1.6 [facility]2021-07-26 11:29:00 Test Item Value Reference Range Interpretation Comments Phosphorus (test code = Phosphorus) 2.9 2.5-4.5 [facility]2021-07-26 11:29:00 Test Item Value Reference Range Interpretation Comments Magnesium Lvl (test code = Magnesium 1.7 1.8-2.4 Lvl) [facility]cosHfsoshnEMDQDQQSLD2079-62-24 11:29:00 Test Item Value Reference Range Interpretation Comments WBC (test code = WBC) 7.4 3.7-10.4 [place] 124571-07-26 11:29:00 Test Item Value Reference Range Interpretation Comments RBC (test code = RBC) 4.67 4.20-5.40 [place] 124571-07-26 11:29:00 Test Item Value Reference Range Interpretation Comments Hgb (test code = Hgb) 12.3 12.0-16.0 [facility]cosFxjgvfxUSRRUHHLKF9176-37-95 11:29:00 Test Item Value Reference Range Interpretation Comments Hct (test code = Hct) 36.0 36.0-48.0 [facility]cosMyhitdnUTHNDKFBGG2533-07-15 11:29:00 Test Item Value Reference Range Interpretation Comments MCV (test code = MCV) 77.0 80.0-98.0 [place] 124571-07-26 11:29:00 Test Item Value Reference Range Interpretation Comments MCH (test code = MCH) 26.4 pg 27.0-31.0 [facility]cosZkyyknoDCUPIUXKUY8727-76-12 11:29:00 Test Item Value Reference Range Interpretation Comments MCHC (test code = MCHC) 34.2 32.0-36.0 [facility]cosYlfpyilLIYWCKZKWS9046-77-20 11:29:00 Test Item Value Reference Range Interpretation Comments Basophils # (test code 0.1 See_Comment [Aut omated message] The = Basophils #) system which generated this result tra nsmitted reference range : <=0.2. The reference r farrah was not used to int erpret this result as normal/abnormal . [place] 124571-07-26 11:29:00 Test Item Value Reference Range Interpretation Comments RDW (test code = RDW) 14.1 11.5-14.5 [place] 124571-07-26 11:29:00 Test Item Value Reference Range Interpretation Comments Platelet (test code = Platelet) 233 133-450 [place] 124571-07-26 11:29:00 Test Item Value Reference Range Interpretation Comments MPV (test code = MPV) 9.1 7.4-10.4 [place] 124571-07-26 11:29:00 Test Item Value Reference Range Interpretation Comments Segs (test code = Segs) 46.1 45.0-75.0 [place] 124571-07-26 11:29:00 Test Item Value Reference Range Interpretation Comments Lymphocytes (test code = Lymphocytes) 40.9 20.0-40.0 [place] 124571-07-26 11:29:00 Test Item Value Reference Range Interpretation Comments Monocytes (test code = Monocytes) 7.9 2.0-12.0 [place] 124571-07-26 11:29:00 Test Item Value Reference Range Interpretation Comments Eosinophils (test code = 4.3 See_Comment [A utomated message] The Eosinophils) system which ge nerated this result tra nsmitted reference range : <=4.0. The reference r farrah was not used to int erpret this result as normal/abnormal . [place] 124571-07-26 11:29:00 Test Item Value Reference Range Interpretation Comments Basophils (test code = 0.8 See_Comment [Aut omated message] The Basophils) system which ge nerated this result tra nsmitted reference range : <=1.0. The reference r farrah was not used to int erpret this result as normal/abnormal . [facility]RxitbnfCYPVIKKFEI2298-84-43 11:29:00 Test Item Value Reference Range Interpretation Comments Neutrophils # (test code = Neutrophils 3.4 1.5-8.1 #) [facility]cosBdnqmseYPDIJZFFVG2372-72-25 11:29:00 Test Item Value Reference Range Interpretation Comments Lymphocytes # (test code = Lymphocytes 3.0 1.0-5.5 #) [place] 124571-07-26 11:29:00 Test Item Value Reference Range Interpretation Comments Microcyte (test code = 1+ *ABN*(10/22/20 Microcyte) 6:29 AM) [place] 124571-07-26 11:29:00 Test Item Value Reference Range Interpretation Comments Monocytes # (test code 0.6 See_Comment [Aut omated message] The = Monocytes #) system which generated this result tra nsmitted reference range : <=0.8. The reference r farrah was not used to int erpret this result as normal/abnormal . [facility]cosAzzhejaTVQAKBWLUM7700-01-82 11:29:00 Test Item Value Reference Range Interpretation Comments Eosinophils # (test code 0.3 See_Comment [A utomated message] The = Eosinophils #) system whic h generated this result tra nsmitted reference range : <=0.5. The reference r farrah was not used to int erpret this result as normal/abnormal . [place] 124571-07-26 11:29:00 Test Item Value Reference Range Interpretation Comments Basophils # (test code 0.1 See_Comment [Aut omated message] The = Basophils #) system which generated this result tra nsmitted reference range : <=0.2. The reference r farrah was not used to int erpret this result as normal/abnormal . [facility]cosKxtpdnoPYBFMDOQFR6351-19-94 11:29:00 Test Item Value Reference Range Interpretation Comments Microcyte (test code = 1+ *ABN*(10/22/20 Microcyte) 6:29 AM) [place] 239741-07-26 11:29:00 Test Item Value Reference Range Interpretation Comments Glucose Lvl (test code = Glucose Lvl) 215 70-99 [place] 239741-07-26 11:29:00 Test Item Value Reference Range Interpretation Comments BUN (test code = BUN) 7 7-22 [place] 239741-07-26 11:29:00 Test Item Value Reference Range Interpretation Comments Creatinine Lvl (test code = Creatinine 0.64 0.50-1.40 Lvl) [place] 239741-07-26 11:29:00 Test Item Value Reference Range Interpretation Comments Sodium Lvl (test code = Sodium Lvl) 137 135-145 [place] 239741-07-26 11:29:00 Test Item Value Reference Range Interpretation Comments Potassium Lvl (test code = Potassium 3.3 3.5-5.1 Lvl) [facility] CampusDeal DecorCRYST[place] [id number] 11:29:00 Test Item Value Reference Range Interpretation Comments Chloride Lvl (test code = Chloride Lvl) 105 95-109 [place] 239741-07-26 11:29:00 Test Item Value Reference Range Interpretation Comments CO2 (test code = CO2) 27 24-32 [place] 239741-07-26 11:29:00 Test Item Value Reference Range Interpretation Comments Calcium Lvl (test code = Calcium Lvl) 8.6 8.5-10.5 [facility] CampusIntelliWare Systems [id number] 11:29:00 Test Item Value Reference Range Interpretation Comments Albumin Lvl (test code = Albumin Lvl) 3.2 3.5-5.0 [facility]Int[facility] [id number] 11:29:00 Test Item Value Reference Range Interpretation Comments ALT (test code = ALT) 31 See_Comment [Auto mated message] The system which ge nerated this result transmit jesse reference range : <=65. The reference range was not used to interpr et this result as laura l/abnormal. [facility] [id number] 11:29:00 Test Item Value Reference Range Interpretation Comments AST (test code = AST) 16 See_Comment [Auto mated message] The system which ge nerated this result transmit jesse reference range : <=37. The reference range was not used to interpr et this result as laura l/abnormal. [facility] [id number] 11:29:00 Test Item Value Reference Range Interpretation Comments Bili Total (test code = Bili Total) 0.4 0.2-1.3 [facility] [id number] 11:29:00 Test Item Value Reference Range Interpretation Comments AGAP (test code = AGAP) 8.3 10.0-20.0 [facility] [id number] 11:29:00 Test Item Value Reference Range Interpretation Comments B/C Ratio (test code = B/C Ratio) 11 1 6-25 [facility]Int[facility] [id number] 11:29:00 Test Item Value Reference Range Interpretation Comments eGFR (test code = eGFR) 103 [place] 239741-07-26 11:29:00 Test Item Value Reference Range Interpretation Comments Total Protein (test code = Total 6.7 6.4-8.4 Protein) [place] 239741-07-26 11:29:00 Test Item Value Reference Range Interpretation Comments Alk Phos (test code = Alk Phos) 80 39-136 [place] 239741-07-26 11:29:00 Test Item Value Reference Range Interpretation Comments Globulin (test code = Globulin) 3.5 2.7-4.2 [place] 239741-07-26 11:29:00 Test Item Value Reference Range Interpretation Comments A/G Ratio (test code = A/G Ratio) 0.9 1 0.7-1.6 [place] 239741-07-26 11:29:00 Test Item Value Reference Range Interpretation Comments Phosphorus (test code = Phosphorus) 2.9 2.5-4.5 [place] 239741-07-26 11:29:00 Test Item Value Reference Range Interpretation Comments Magnesium Lvl (test code = Magnesium 1.7 1.8-2.4 Lvl) [place] 124571-07-26 11:29:00 Test Item Value Reference Range Interpretation Comments WBC (test code = WBC) 7.4 3.7-10.4 [place] 124571-07-26 11:29:00 Test Item Value Reference Range Interpretation Comments RBC (test code = RBC) 4.67 4.20-5.40 [place] 124571-07-26 11:29:00 Test Item Value Reference Range Interpretation Comments Hgb (test code = Hgb) 12.3 12.0-16.0 [place] [address]-07-26 11:29:00 Test Item Value Reference Range Interpretation Comments Hct (test code = Hct) 36.0 36.0-48.0 [place] [address]-07-26 11:29:00 Test Item Value Reference Range Interpretation Comments MCV (test code = MCV) 77.0 80.0-98.0 [place] 124571-07-26 11:29:00 Test Item Value Reference Range Interpretation Comments MCH (test code = MCH) 26.4 pg 27.0-31.0 [place] 124571-07-26 11:29:00 Test Item Value Reference Range Interpretation Comments MCHC (test code = MCHC) 34.2 32.0-36.0 [place] 124571-07-26 11:29:00 Test Item Value Reference Range Interpretation Comments RDW (test code = RDW) 14.1 11.5-14.5 [place] 124571-07-26 11:29:00 Test Item Value Reference Range Interpretation Comments Platelet (test code = Platelet) 233 133-450 [place] 124571-07-26 11:29:00 Test Item Value Reference Range Interpretation Comments MPV (test code = MPV) 9.1 7.4-10.4 [place] 124571-07-26 11:29:00 Test Item Value Reference Range Interpretation Comments Segs (test code = Segs) 46.1 45.0-75.0 [place] 124571-07-26 11:29:00 Test Item Value Reference Range Interpretation Comments Lymphocytes (test code = Lymphocytes) 40.9 20.0-40.0 [place] 124571-07-26 11:29:00 Test Item Value Reference Range Interpretation Comments Monocytes (test code = Monocytes) 7.9 2.0-12.0 [place] 124571-07-26 11:29:00 Test Item Value Reference Range Interpretation Comments Eosinophils (test code = 4.3 See_Comment [A utomated message] The Eosinophils) system which ge nerated this result tra nsmitted reference range : <=4.0. The reference r farrah was not used to int erpret this result as normal/abnormal . [place] 124571-07-26 11:29:00 Test Item Value Reference Range Interpretation Comments Basophils (test code = 0.8 See_Comment [Aut omated message] The Basophils) system which ge nerated this result tra nsmitted reference range : <=1.0. The reference r farrah was not used to int erpret this result as normal/abnormal . [place] 124571-07-26 11:29:00 Test Item Value Reference Range Interpretation Comments Neutrophils # (test code = Neutrophils 3.4 1.5-8.1 #) [place] 124571-07-26 11:29:00 Test Item Value Reference Range Interpretation Comments Lymphocytes # (test code = Lymphocytes 3.0 1.0-5.5 #) [id number] 11:29:00 Test Item Value Reference Range Interpretation Comments Monocytes # (test code 0.6 See_Comment [Aut omated message] The = Monocytes #) system which generated this result tra nsmitted reference range : <=0.8. The reference r farrah was not used to int erpret this result as normal/abnormal . [facility]cosSbwohpoYHVVEHJRVE8295-60-35 11:29:00 Test Item Value Reference Range Interpretation Comments Eosinophils # (test code 0.3 See_Comment [A utomated message] The = Eosinophils #) system whic h generated this result tra nsmitted reference range : <=0.5. The reference r farrah was not used to int erpret this result as normal/abnormal . [facility]cosDltymqgNBTOXOBJYJ8318-39-15 11:29:00 Test Item Value Reference Range Interpretation Comments Basophils # (test code 0.1 See_Comment [Aut omated message] The = Basophils #) system which generated this result tra nsmitted reference range : <=0.2. The reference r farrah was not used to int erpret this result as normal/abnormal . [id number] 11:29:00 Test Item Value Reference Range Interpretation Comments Microcyte (test code = 1+ *ABN*(10/22/20 Microcyte) 6:29 AM) [facility]2021-07-26 11:29:00 Test Item Value Reference Range Interpretation Comments Glucose Lvl (test code = Glucose Lvl) 215 70-99 [facility] [id number] 11:29:00 Test Item Value Reference Range Interpretation Comments BUN (test code = BUN) 7 7- [facility]cosQulzeqrUWVFUCGJRL6678-26-74 21:13:00 Test Item Value Reference Range Interpretation Comments Sed Rate (test code = 12 See_Comment [Auto mated message] The Sed Rate) system which ge nerated this result transmit jesse reference range : <=20. The reference range was not used to interpr et this result as laura l/abnormal. [facility] HospitalBlkabppTLPCXDLNXH5424-75-58 21:13:00 Test Item Value Reference Range Interpretation Comments C-REACTIVE PROTEIN (test code = 5.7 C-REACTIVE PROTEIN) [place] 124571-07-25 21:13:00 Test Item Value Reference Range Interpretation Comments Sed Rate (test code = 12 See_Comment [Auto mated message] The Sed Rate) system which ge nerated this result transmit jesse reference range : <=20. The reference range was not used to interpr et this result as laura l/abnormal. [place] [address]-07-25 21:13:00 Test Item Value Reference Range Interpretation Comments C-REACTIVE PROTEIN (test code = 5.7 C-REACTIVE PROTEIN) [place] [address]-07-25 21:13:00 Test Item Value Reference Range Interpretation Comments Sed Rate (test code = 12 See_Comment [Auto mated message] The Sed Rate) system which ge nerated this result transmit jesse reference range : <=20. The reference range was not used to interpr et this result as laura l/abnormal. [place] [address]-07-25 21:13:00 Test Item Value Reference Range Interpretation Comments C-REACTIVE PROTEIN (test code = 5.7 C-REACTIVE PROTEIN) [place] 239741-07-25 09:07:00 Test Item Value Reference Range Interpretation Comments Glucose Lvl (test code = Glucose Lvl) 298 70-99 [place] 239741-07-25 09:07:00 Test Item Value Reference Range Interpretation Comments BUN (test code = BUN) 11 7-22 [place] 239741-07-25 09:07:00 Test Item Value Reference Range Interpretation Comments Creatinine Lvl (test code = Creatinine 0.63 0.50-1.40 Lvl) [place] 239741-07-25 09:07:00 Test Item Value Reference Range Interpretation Comments Sodium Lvl (test code = Sodium Lvl) 139 135-145 [place] 239741-07-25 09:07:00 Test Item Value Reference Range Interpretation Comments Potassium Lvl (test code = Potassium 4.1 3.5-5.1 Lvl) [place] 239741-07-25 09:07:00 Test Item Value Reference Range Interpretation Comments Chloride Lvl (test code = Chloride Lvl) 106 95-109 [place] 239741-07-25 09:07:00 Test Item Value Reference Range Interpretation Comments CO2 (test code = CO2) 24 24-32 [place] 239741-07-25 09:07:00 Test Item Value Reference Range Interpretation Comments AGAP (test code = AGAP) 13.1 10.0-20.0 [place] 239741-07-25 09:07:00 Test Item Value Reference Range Interpretation Comments Calcium Lvl (test code = Calcium Lvl) 8.6 8.5-10.5 [place] 239741-07-25 09:07:00 Test Item Value Reference Range Interpretation Comments eGFR (test code = eGFR) 104 [facility]cosSiarpjeOXFJXEXCAE9318-26-10 09:07:00 Test Item Value Reference Range Interpretation Comments Segs (test code = Segs) 65.5 45.0-75.0 [place] 124571-07-25 09:07:00 Test Item Value Reference Range Interpretation Comments Lymphocytes (test code = Lymphocytes) 25.3 20.0-40.0 [place] 124571-07-25 09:07:00 Test Item Value Reference Range Interpretation Comments Monocytes (test code = Monocytes) 6.1 2.0-12.0 [place] 124571-07-25 09:07:00 Test Item Value Reference Range Interpretation Comments Eosinophils (test code = 2.4 See_Comment [A utomated message] The Eosinophils) system which ge nerated this result tra nsmitted reference range : <=4.0. The reference r farrah was not used to int erpret this result as normal/abnormal . [facility]cosZdzmqleYTAEZNMXFB7923-99-30 09:07:00 Test Item Value Reference Range Interpretation Comments Basophils (test code = 0.7 See_Comment [Aut omated message] The Basophils) system which ge nerated this result tra nsmitted reference range : <=1.0. The reference r farrah was not used to int erpret this result as normal/abnormal . [facility]cosHcqmzenQTNCVXWOJH1716-21-00 09:07:00 Test Item Value Reference Range Interpretation Comments Neutrophils # (test code = Neutrophils 5.4 1.5-8.1 #) [facility]cosFiuqwkfCQNEUULYZW9253-16-12 09:07:00 Test Item Value Reference Range Interpretation Comments Lymphocytes # (test code = Lymphocytes 2.1 1.0-5.5 #) [place] 124571-07-25 09:07:00 Test Item Value Reference Range Interpretation Comments Monocytes # (test code 0.5 See_Comment [Aut omated message] The = Monocytes #) system which generated this result tra nsmitted reference range : <=0.8. The reference r farrah was not used to int erpret this result as normal/abnormal . [facility]cosLmfghvvHAIMHHDZCS0935-49-34 09:07:00 Test Item Value Reference Range Interpretation Comments Eosinophils # (test code 0.2 See_Comment [A utomated message] The = Eosinophils #) system whic h generated this result tra nsmitted reference range : <=0.5. The reference r farrah was not used to int erpret this result as normal/abnormal . [facility]cosUwowdwhHQRGAKSVZK5570-84-68 09:07:00 Test Item Value Reference Range Interpretation Comments Basophils # (test code 0.1 See_Comment [Aut omated message] The = Basophils #) system which generated this result tra nsmitted reference range : <=0.2. The reference r farrah was not used to int erpret this result as normal/abnormal . [facility]cosLavcmhtDSRRJWBCTT5918-61-97 09:07:00 Test Item Value Reference Range Interpretation Comments Microcyte (test code = 1+ *ABN*(10/21/20 Microcyte) 4:07 AM) [place] 124571-07-25 09:07:00 Test Item Value Reference Range Interpretation Comments WBC (test code = WBC) 8.2 3.7-10.4 [facility]cosLnztgazTKSTTJKCQC2461-85-35 09:07:00 Test Item Value Reference Range Interpretation Comments RBC (test code = RBC) 4.78 4.20-5.40 [place] 124571-07-25 09:07:00 Test Item Value Reference Range Interpretation Comments Hgb (test code = Hgb) 12.8 12.0-16.0 [place] 124571-07-25 09:07:00 Test Item Value Reference Range Interpretation Comments Hct (test code = Hct) 36.8 36.0-48.0 [place] 124571-07-25 09:07:00 Test Item Value Reference Range Interpretation Comments MCV (test code = MCV) 76.9 80.0-98.0 [facility]cosMsmdylcPFACCFGAVG8917-01-76 09:07:00 Test Item Value Reference Range Interpretation Comments MCH (test code = MCH) 26.7 pg 27.0-31.0 [facility] HospitalDqfnqlyAYNXTBRUVD3527-23-52 09:07:00 Test Item Value Reference Range Interpretation Comments MCHC (test code = MCHC) 34.8 32.0-36.0 [facility] MichiganWsyyybdFNZWCNTALF1035-53-28 09:07:00 Test Item Value Reference Range Interpretation Comments RDW (test code = RDW) 14.2 11.5-14.5 [facility] HospitalJpvheawSSVLLQJBKT3585-07-15 09:07:00 Test Item Value Reference Range Interpretation Comments Platelet (test code = Platelet) 245 133-450 [facility] MichiganHyqhqmaUTPBMEPMIM5257-15-26 09:07:00 Test Item Value Reference Range Interpretation Comments MPV (test code = MPV) 8.7 7.4-10.4 [facility] [id number] 09:07:00 Test Item Value Reference Range Interpretation Comments Hgb A1C (test code = Hgb A1C) 13.2 [facility] [id number] 09:07:00 Test Item Value Reference Range Interpretation Comments Glucose Lvl (test code = Glucose Lvl) 298 70-99 [facility] [id number] 09:07:00 Test Item Value Reference Range Interpretation Comments BUN (test code = BUN) 11 7-22 [facility]2021-07-25 09:07:00 Test Item Value Reference Range Interpretation Comments Creatinine Lvl (test code = Creatinine 0.63 0.50-1.40 Lvl) [facility] [id number] 09:07:00 Test Item Value Reference Range Interpretation Comments Sodium Lvl (test code = Sodium Lvl) 139 135-145 [facility]2021-07-25 09:07:00 Test Item Value Reference Range Interpretation Comments Potassium Lvl (test code = Potassium 4.1 3.5-5.1 Lvl) [facility] [id number] 09:07:00 Test Item Value Reference Range Interpretation Comments Chloride Lvl (test code = Chloride Lvl) 106 95-109 [facility]2021-07-25 09:07:00 Test Item Value Reference Range Interpretation Comments CO2 (test code = CO2) 24 24-32 [place] 239741-07-25 09:07:00 Test Item Value Reference Range Interpretation Comments AGAP (test code = AGAP) 13.1 10.0-20.0 [place] 239741-07-25 09:07:00 Test Item Value Reference Range Interpretation Comments Calcium Lvl (test code = Calcium Lvl) 8.6 8.5-10.5 [place] 239741-07-25 09:07:00 Test Item Value Reference Range Interpretation Comments eGFR (test code = eGFR) 104 [facility]cosTxmgjjbOEHBHSZCDI1218-21-32 09:07:00 Test Item Value Reference Range Interpretation Comments Segs (test code = Segs) 65.5 45.0-75.0 [place] 124571-07-25 09:07:00 Test Item Value Reference Range Interpretation Comments Lymphocytes (test code = Lymphocytes) 25.3 20.0-40.0 [place] 124571-07-25 09:07:00 Test Item Value Reference Range Interpretation Comments Monocytes (test code = Monocytes) 6.1 2.0-12.0 [place] 124571-07-25 09:07:00 Test Item Value Reference Range Interpretation Comments Eosinophils (test code = 2.4 See_Comment [A utomated message] The Eosinophils) system which ge nerated this result tra nsmitted reference range : <=4.0. The reference r farrah was not used to int erpret this result as normal/abnormal . [place] 124571-07-25 09:07:00 Test Item Value Reference Range Interpretation Comments Basophils (test code = 0.7 See_Comment [Aut omated message] The Basophils) system which ge nerated this result tra nsmitted reference range : <=1.0. The reference r farrah was not used to int erpret this result as normal/abnormal . [place] 124571-07-25 09:07:00 Test Item Value Reference Range Interpretation Comments Neutrophils # (test code = Neutrophils 5.4 1.5-8.1 #) [place] 124571-07-25 09:07:00 Test Item Value Reference Range Interpretation Comments Lymphocytes # (test code = Lymphocytes 2.1 1.0-5.5 #) [place] 124571-07-25 09:07:00 Test Item Value Reference Range Interpretation Comments Monocytes # (test code 0.5 See_Comment [Aut omated message] The = Monocytes #) system which generated this result tra nsmitted reference range : <=0.8. The reference r farrah was not used to int erpret this result as normal/abnormal . [facility]cosWxfjubjQSQTBRRKMP7958-93-99 09:07:00 Test Item Value Reference Range Interpretation Comments Eosinophils # (test code 0.2 See_Comment [A utomated message] The = Eosinophils #) system whic h generated this result tra nsmitted reference range : <=0.5. The reference r farrah was not used to int erpret this result as normal/abnormal . [place] 124571-07-25 09:07:00 Test Item Value Reference Range Interpretation Comments Basophils # (test code 0.1 See_Comment [Aut omated message] The = Basophils #) system which generated this result tra nsmitted reference range : <=0.2. The reference r farrah was not used to int erpret this result as normal/abnormal . [facility]cosGxqyaofWKHRVMHNRX2105-47-16 09:07:00 Test Item Value Reference Range Interpretation Comments Microcyte (test code = 1+ *ABN*(10/21/20 Microcyte) 4:07 AM) [place] 124571-07-25 09:07:00 Test Item Value Reference Range Interpretation Comments WBC (test code = WBC) 8.2 3.7-10.4 [place] 124571-07-25 09:07:00 Test Item Value Reference Range Interpretation Comments RBC (test code = RBC) 4.78 4.20-5.40 [place] 124571-07-25 09:07:00 Test Item Value Reference Range Interpretation Comments Hgb (test code = Hgb) 12.8 12.0-16.0 [place] 124571-07-25 09:07:00 Test Item Value Reference Range Interpretation Comments Hct (test code = Hct) 36.8 36.0-48.0 [place] 124571-07-25 09:07:00 Test Item Value Reference Range Interpretation Comments MCV (test code = MCV) 76.9 80.0-98.0 [place] 124571-07-25 09:07:00 Test Item Value Reference Range Interpretation Comments MCH (test code = MCH) 26.7 pg 27.0-31.0 [facility]WkwsqitSJMEEUDXHC5763-25-89 09:07:00 Test Item Value Reference Range Interpretation Comments MCHC (test code = MCHC) 34.8 32.0-36.0 [facility]cosIoictisGUYMVVHTBM8015-33-12 09:07:00 Test Item Value Reference Range Interpretation Comments RDW (test code = RDW) 14.2 11.5-14.5 [facility] MichiganGafqkfeOIXANYONGH4378-97-98 09:07:00 Test Item Value Reference Range Interpretation Comments Platelet (test code = Platelet) 245 133-450 [facility] MichiganDubavfbGRYLTRYGCH9151-58-71 09:07:00 Test Item Value Reference Range Interpretation Comments MPV (test code = MPV) 8.7 7.4-10.4 [facility] RPDKZEJXW4645-40-63 09:07:00 Test Item Value Reference Range Interpretation Comments Hgb A1C (test code = Hgb A1C) 13.2 [facility] [id number] 09:07:00 Test Item Value Reference Range Interpretation Comments Glucose Lvl (test code = Glucose Lvl) 298 70-99 [facility]2021-07-25 09:07:00 Test Item Value Reference Range Interpretation Comments BUN (test code = BUN) 11 7-22 [facility]2021-07-25 09:07:00 Test Item Value Reference Range Interpretation Comments Creatinine Lvl (test code = Creatinine 0.63 0.50-1.40 Lvl) [facility]2021-07-25 09:07:00 Test Item Value Reference Range Interpretation Comments Sodium Lvl (test code = Sodium Lvl) 139 135-145 [facility]2021-07-25 09:07:00 Test Item Value Reference Range Interpretation Comments Potassium Lvl (test code = Potassium 4.1 3.5-5.1 Lvl) [facility]2021-07-25 09:07:00 Test Item Value Reference Range Interpretation Comments Chloride Lvl (test code = Chloride Lvl) 106 95-109 [facility]2021-07-25 09:07:00 Test Item Value Reference Range Interpretation Comments CO2 (test code = CO2) 24 24-32 [facility]2021-07-25 09:07:00 Test Item Value Reference Range Interpretation Comments AGAP (test code = AGAP) 13.1 10.0-20.0 [place] 239741-07-25 09:07:00 Test Item Value Reference Range Interpretation Comments Calcium Lvl (test code = Calcium Lvl) 8.6 8.5-10.5 [place] 239741-07-25 09:07:00 Test Item Value Reference Range Interpretation Comments eGFR (test code = eGFR) 104 [facility]xbsoudSFYBTTZLEW3740-32-60 09:07:00 Test Item Value Reference Range Interpretation Comments Segs (test code = Segs) 65.5 45.0-75.0 [place] 124571-07-25 09:07:00 Test Item Value Reference Range Interpretation Comments Lymphocytes (test code = Lymphocytes) 25.3 20.0-40.0 [place] 124571-07-25 09:07:00 Test Item Value Reference Range Interpretation Comments Monocytes (test code = Monocytes) 6.1 2.0-12.0 [place] 124571-07-25 09:07:00 Test Item Value Reference Range Interpretation Comments Eosinophils (test code = 2.4 See_Comment [A utomated message] The Eosinophils) system which ge nerated this result tra nsmitted reference range : <=4.0. The reference r farrah was not used to int erpret this result as normal/abnormal . [place] 124571-07-25 09:07:00 Test Item Value Reference Range Interpretation Comments Basophils (test code = 0.7 See_Comment [Aut omated message] The Basophils) system which ge nerated this result tra nsmitted reference range : <=1.0. The reference r farrah was not used to int erpret this result as normal/abnormal . [facility]cosTrfudqaWBDUYZLZGW0902-11-51 09:07:00 Test Item Value Reference Range Interpretation Comments Neutrophils # (test code = Neutrophils 5.4 1.5-8.1 #) [facility]cosAsdcnqtLUFRDGPYJM8006-68-67 09:07:00 Test Item Value Reference Range Interpretation Comments Lymphocytes # (test code = Lymphocytes 2.1 1.0-5.5 #) [place] 124571-07-25 09:07:00 Test Item Value Reference Range Interpretation Comments Monocytes # (test code 0.5 See_Comment [Aut omated message] The = Monocytes #) system which generated this result tra nsmitted reference range : <=0.8. The reference r farrah was not used to int erpret this result as normal/abnormal . [facility]cosLkmumwpHLQVXLEGPU7008-01-85 09:07:00 Test Item Value Reference Range Interpretation Comments Eosinophils # (test code 0.2 See_Comment [A utomated message] The = Eosinophils #) system whic h generated this result tra nsmitted reference range : <=0.5. The reference r farrah was not used to int erpret this result as normal/abnormal . [facility]cosCkuduzeRLDVLANDMY6435-75-41 09:07:00 Test Item Value Reference Range Interpretation Comments Basophils # (test code 0.1 See_Comment [Aut omated message] The = Basophils #) system which generated this result tra nsmitted reference range : <=0.2. The reference r farrah was not used to int erpret this result as normal/abnormal . [facility]cosTgmyiivLGHEJKZCSI0140-99-15 09:07:00 Test Item Value Reference Range Interpretation Comments Microcyte (test code = 1+ *ABN*(10/21/20 Microcyte) 4:07 AM) [place] 124571-07-25 09:07:00 Test Item Value Reference Range Interpretation Comments WBC (test code = WBC) 8.2 3.7-10.4 [place] 124571-07-25 09:07:00 Test Item Value Reference Range Interpretation Comments RBC (test code = RBC) 4.78 4.20-5.40 [facility]cosEtocznuMOKJEEOWJN0159-80-14 09:07:00 Test Item Value Reference Range Interpretation Comments Hgb (test code = Hgb) 12.8 12.0-16.0 [place] 124571-07-25 09:07:00 Test Item Value Reference Range Interpretation Comments Hct (test code = Hct) 36.8 36.0-48.0 [facility]cosAflghukFRHQSLOSIW2046-83-83 09:07:00 Test Item Value Reference Range Interpretation Comments MCV (test code = MCV) 76.9 80.0-98.0 [place] 124571-07-25 09:07:00 Test Item Value Reference Range Interpretation Comments MCH (test code = MCH) 26.7 pg 27.0-31.0 [facility]iiMPZMFXUDLK0926-38-12 09:07:00 Test Item Value Reference Range Interpretation Comments MCHC (test code = MCHC) 34.8 32.0-36.0 [facility]cosXafbualFUDWBZXBPS7502-35-03 09:07:00 Test Item Value Reference Range Interpretation Comments RDW (test code = RDW) 14.2 11.5-14.5 [facility]SmxawvyWFOEFQQWCJ7729-00-28 09:07:00 Test Item Value Reference Range Interpretation Comments Platelet (test code = Platelet) 245 133-450 [facility] MichiganJmqeuadFRVJXFBAPN5018-07-39 09:07:00 Test Item Value Reference Range Interpretation Comments MPV (test code = MPV) 8.7 7.4-10.4 [facility] TPATKJLQW3237-05-98 09:07:00 Test Item Value Reference Range Interpretation Comments Hgb A1C (test code = Hgb A1C) 13.2 [facility] LVSXG4778-38-84 19:43:00 Test Item Value Reference Range Interpretation Comments Glucose Lvl (test code = Glucose Lvl) 264 70-99 [facility]2021-07-24 19:43:00 Test Item Value Reference Range Interpretation Comments BUN (test code = BUN) 13 7-22 [facility]2021-07-24 19:43:00 Test Item Value Reference Range Interpretation Comments Creatinine Lvl (test code = Creatinine 0.84 0.50-1.40 Lvl) [facility]2021-07-24 19:43:00 Test Item Value Reference Range Interpretation Comments Sodium Lvl (test code = Sodium Lvl) 140 135-145 [facility]2021-07-24 19:43:00 Test Item Value Reference Range Interpretation Comments Potassium Lvl (test code = Potassium 4.3 3.5-5.1 Lvl) [facility]2021-07-24 19:43:00 Test Item Value Reference Range Interpretation Comments Chloride Lvl (test code = Chloride Lvl) 109 95-109 [facility]2021-07-24 19:43:00 Test Item Value Reference Range Interpretation Comments CO2 (test code = CO2) 27 24-32 [facility]2021-07-24 19:43:00 Test Item Value Reference Range Interpretation Comments Calcium Lvl (test code = Calcium Lvl) 9.1 8.5-10.5 [facility]2021-07-24 19:43:00 Test Item Value Reference Range Interpretation Comments AGAP (test code = AGAP) 8.3 10.0-20.0 [facility]2021-07-24 19:43:00 Test Item Value Reference Range Interpretation Comments eGFR (test code = eGFR) 80 [facility]cosAjaqijnMJAVQBMPZB4489-58-17 19:43:00 Test Item Value Reference Range Interpretation Comments WBC (test code = WBC) 7.7 3.7-10.4 [facility]cosDlmlvedPTJAKEQMOG8474-10-33 19:43:00 Test Item Value Reference Range Interpretation Comments RBC (test code = RBC) 4.95 4.20-5.40 [facility]cosZbyrqwyRETBPELBTD9575-15-02 19:43:00 Test Item Value Reference Range Interpretation Comments Hgb (test code = Hgb) 13.0 12.0-16.0 [facility]cosIhqfurhXMBAKDHXUE9200-62-30 19:43:00 Test Item Value Reference Range Interpretation Comments Hct (test code = Hct) 38.3 36.0-48.0 [facility]cosXomwjbsFNKZEBEUBY5027-92-62 19:43:00 Test Item Value Reference Range Interpretation Comments MCV (test code = MCV) 77.3 80.0-98.0 [facility]cosIspynlxQFKBAEJLBL7789-01-42 19:43:00 Test Item Value Reference Range Interpretation Comments MCH (test code = MCH) 26.2 pg 27.0-31.0 [facility]cosVnuizdjQLNUIVJRBV1421-30-91 19:43:00 Test Item Value Reference Range Interpretation Comments MCHC (test code = MCHC) 33.9 32.0-36.0 [facility]cosHyupfspDKDCTJQHYR1587-67-71 19:43:00 Test Item Value Reference Range Interpretation Comments RDW (test code = RDW) 14.1 11.5-14.5 [facility]cosRqoqfpmQNNEOWSESH0322-09-67 19:43:00 Test Item Value Reference Range Interpretation Comments Platelet (test code = Platelet) 246 133-450 [facility]cosZipwgstNTIRDKBJOF1264-47-68 19:43:00 Test Item Value Reference Range Interpretation Comments MPV (test code = MPV) 8.6 7.4-10.4 [place] 9[address]42-07-24 19:43:00 Test Item Value Reference Range Interpretation Comments Segs (test code = Segs) 52.2 45.0-75.0 [place] 124571-07-24 19:43:00 Test Item Value Reference Range Interpretation Comments Lymphocytes (test code = Lymphocytes) 37.2 20.0-40.0 [place] 124571-07-24 19:43:00 Test Item Value Reference Range Interpretation Comments Monocytes (test code = Monocytes) 7.5 2.0-12.0 [place] 124571-07-24 19:43:00 Test Item Value Reference Range Interpretation Comments Eosinophils (test code = 2.7 See_Comment [A utomated message] The Eosinophils) system which ge nerated this result tra nsmitted reference range : <=4.0. The reference r farrah was not used to int erpret this result as normal/abnormal . [place] 124571-07-24 19:43:00 Test Item Value Reference Range Interpretation Comments Basophils (test code = 0.4 See_Comment [Aut omated message] The Basophils) system which ge nerated this result tra nsmitted reference range : <=1.0. The reference r farrah was not used to int erpret this result as normal/abnormal . [facility]cosMbziqurOZHOIZQJTZ7953-15-04 19:43:00 Test Item Value Reference Range Interpretation Comments Neutrophils # (test code = Neutrophils 4.0 1.5-8.1 #) [facility]cosKndcdwwPGJGTFRTKW1745-43-34 19:43:00 Test Item Value Reference Range Interpretation Comments Lymphocytes # (test code = Lymphocytes 2.9 1.0-5.5 #) [facility]cosHdsszlwIVVFAJRWMU9821-07-49 19:43:00 Test Item Value Reference Range Interpretation Comments Monocytes # (test code 0.6 See_Comment [Aut omated message] The = Monocytes #) system which generated this result tra nsmitted reference range : <=0.8. The reference r farrah was not used to int erpret this result as normal/abnormal . [facility]cosTxfkyqpHLTTDNOMXU3039-23-21 19:43:00 Test Item Value Reference Range Interpretation Comments Eosinophils # (test code 0.2 See_Comment [A utomated message] The = Eosinophils #) system whic h generated this result tra nsmitted reference range : <=0.5. The reference r farrah was not used to int erpret this result as normal/abnormal . [facility]cosVsmtfawFVVBSWQTFR8728-95-23 19:43:00 Test Item Value Reference Range Interpretation Comments Microcyte (test code = 1+ *ABN*(10/20/20 Microcyte) 2:43 PM) [place] 239741-07-24 19:43:00 Test Item Value Reference Range Interpretation Comments Glucose Lvl (test code = Glucose Lvl) 264 70-99 [place] 239741-07-24 19:43:00 Test Item Value Reference Range Interpretation Comments BUN (test code = BUN) 13 - [place] 239741-07-24 19:43:00 Test Item Value Reference Range Interpretation Comments Creatinine Lvl (test code = Creatinine 0.84 0.50-1.40 Lvl) [place] 239741-07-24 19:43:00 Test Item Value Reference Range Interpretation Comments Sodium Lvl (test code = Sodium Lvl) 140 135-145 [place] 239741-07-24 19:43:00 Test Item Value Reference Range Interpretation Comments Potassium Lvl (test code = Potassium 4.3 3.5-5.1 Lvl) [facility]2021-07-24 19:43:00 Test Item Value Reference Range Interpretation Comments Chloride Lvl (test code = Chloride Lvl) 109 95-109 [place] 239741-07-24 19:43:00 Test Item Value Reference Range Interpretation Comments CO2 (test code = CO2) 27 24-32 [place] 239741-07-24 19:43:00 Test Item Value Reference Range Interpretation Comments Calcium Lvl (test code = Calcium Lvl) 9.1 8.5-10.5 [place] 239741-07-24 19:43:00 Test Item Value Reference Range Interpretation Comments AGAP (test code = AGAP) 8.3 10.0-20.0 [place] 239741-07-24 19:43:00 Test Item Value Reference Range Interpretation Comments eGFR (test code = eGFR) 80 [place] 124571-07-24 19:43:00 Test Item Value Reference Range Interpretation Comments WBC (test code = WBC) 7.7 3.7-10.4 [facility]cosZguogrlEFDXYHGCIK7951-42-82 19:43:00 Test Item Value Reference Range Interpretation Comments RBC (test code = RBC) 4.95 4.20-5.40 [facility]cosOidhcygGCLMJEXDLE0958-22-65 19:43:00 Test Item Value Reference Range Interpretation Comments Hgb (test code = Hgb) 13.0 12.0-16.0 [facility]cosIptqykuEJKCTEKZIL3919-89-52 19:43:00 Test Item Value Reference Range Interpretation Comments Hct (test code = Hct) 38.3 36.0-48.0 [facility]cosNypidkrCKGOEXIAHX8754-71-41 19:43:00 Test Item Value Reference Range Interpretation Comments MCV (test code = MCV) 77.3 80.0-98.0 [facility]cosNvgblpdKDJSLOQWQP3776-57-55 19:43:00 Test Item Value Reference Range Interpretation Comments MCH (test code = MCH) 26.2 pg 27.0-31.0 [facility]cosGuomkkiMKXLGHILUX6563-17-75 19:43:00 Test Item Value Reference Range Interpretation Comments MCHC (test code = MCHC) 33.9 32.0-36.0 [facility]cosTeejbbdHNCDKUTNMB2902-93-77 19:43:00 Test Item Value Reference Range Interpretation Comments RDW (test code = RDW) 14.1 11.5-14.5 [facility]cosSbxbmeoZAKSPFODGB6434-26-94 19:43:00 Test Item Value Reference Range Interpretation Comments Platelet (test code = Platelet) 246 133-450 [facility]cosWpdqkxsGBSMASZVAC1404-16-67 19:43:00 Test Item Value Reference Range Interpretation Comments MPV (test code = MPV) 8.6 7.4-10.4 [facility]cosRwqhimmDVSPPJMLUF5216-78-04 19:43:00 Test Item Value Reference Range Interpretation Comments Segs (test code = Segs) 52.2 45.0-75.0 [facility]cosBgsvivqJSDPTVNBPR6560-36-77 19:43:00 Test Item Value Reference Range Interpretation Comments Lymphocytes (test code = Lymphocytes) 37.2 20.0-40.0 [facility]cosAnaaexeWPQIVYGNAG2135-85-68 19:43:00 Test Item Value Reference Range Interpretation Comments Monocytes (test code = Monocytes) 7.5 2.0-12.0 [facility]cosIzygdrqRZGESBJEFV6419-74-63 19:43:00 Test Item Value Reference Range Interpretation Comments Eosinophils (test code = 2.7 See_Comment [A utomated message] The Eosinophils) system which ge nerated this result tra nsmitted reference range : <=4.0. The reference r farrah was not used to int erpret this result as normal/abnormal . [facility]cosYofflouFTAQNDJZKY5211-65-70 19:43:00 Test Item Value Reference Range Interpretation Comments Basophils (test code = 0.4 See_Comment [Aut omated message] The Basophils) system which ge nerated this result tra nsmitted reference range : <=1.0. The reference r farrah was not used to int erpret this result as normal/abnormal . [facility]cosYomgjleHRSQRQDKBF7312-32-32 19:43:00 Test Item Value Reference Range Interpretation Comments Neutrophils # (test code = Neutrophils 4.0 1.5-8.1 #) [facility]cosXshgbwnCVJIPJMJVQ7228-38-45 19:43:00 Test Item Value Reference Range Interpretation Comments Lymphocytes # (test code = Lymphocytes 2.9 1.0-5.5 #) [facility]cosMpxewotSSPRWEIVGN2213-25-99 19:43:00 Test Item Value Reference Range Interpretation Comments Monocytes # (test code 0.6 See_Comment [Aut omated message] The = Monocytes #) system which generated this result tra nsmitted reference range : <=0.8. The reference r frarah was not used to int erpret this result as normal/abnormal . [facility]cosWfgxlgwNCTGEGOXGP9194-76-92 19:43:00 Test Item Value Reference Range Interpretation Comments Eosinophils # (test code 0.2 See_Comment [A utomated message] The = Eosinophils #) system whic h generated this result tra nsmitted reference range : <=0.5. The reference r farrah was not used to int erpret this result as normal/abnormal . [facility]cosUrqpgulNJZVOSQPFW5564-27-30 19:43:00 Test Item Value Reference Range Interpretation Comments Microcyte (test code = 1+ *ABN*(10/20/20 Microcyte) 2:43 PM) [place] 239741-07-24 19:43:00 Test Item Value Reference Range Interpretation Comments Glucose Lvl (test code = Glucose Lvl) 264 70-99 [place] 239741-07-24 19:43:00 Test Item Value Reference Range Interpretation Comments BUN (test code = BUN) 13 7-22 [facility]2021-07-24 19:43:00 Test Item Value Reference Range Interpretation Comments Creatinine Lvl (test code = Creatinine 0.84 0.50-1.40 Lvl) [place] 239741-07-24 19:43:00 Test Item Value Reference Range Interpretation Comments Sodium Lvl (test code = Sodium Lvl) 140 135-145 [place] 239741-07-24 19:43:00 Test Item Value Reference Range Interpretation Comments Potassium Lvl (test code = Potassium 4.3 3.5-5.1 Lvl) [facility]2021-07-24 19:43:00 Test Item Value Reference Range Interpretation Comments Chloride Lvl (test code = Chloride Lvl) 109 95-109 [facility]2021-07-24 19:43:00 Test Item Value Reference Range Interpretation Comments CO2 (test code = CO2) 27 24-32 [place] 239741-07-24 19:43:00 Test Item Value Reference Range Interpretation Comments Calcium Lvl (test code = Calcium Lvl) 9.1 8.5-10.5 [facility]2021-07-24 19:43:00 Test Item Value Reference Range Interpretation Comments AGAP (test code = AGAP) 8.3 10.0-20.0 [facility]2021-07-24 19:43:00 Test Item Value Reference Range Interpretation Comments eGFR (test code = eGFR) 80 [facility]cosFsiijhfNJBPKMXJHB0735-33-70 19:43:00 Test Item Value Reference Range Interpretation Comments WBC (test code = WBC) 7.7 3.7-10.4 [place] 124571-07-24 19:43:00 Test Item Value Reference Range Interpretation Comments RBC (test code = RBC) 4.95 4.20-5.40 [place] 124571-07-24 19:43:00 Test Item Value Reference Range Interpretation Comments Hgb (test code = Hgb) 13.0 12.0-16.0 [place] 124571-07-24 19:43:00 Test Item Value Reference Range Interpretation Comments Hct (test code = Hct) 38.3 36.0-48.0 [place] 124571-07-24 19:43:00 Test Item Value Reference Range Interpretation Comments MCV (test code = MCV) 77.3 80.0-98.0 [place] 124571-07-24 19:43:00 Test Item Value Reference Range Interpretation Comments MCH (test code = MCH) 26.2 pg 27.0-31.0 [place] 124571-07-24 19:43:00 Test Item Value Reference Range Interpretation Comments MCHC (test code = MCHC) 33.9 32.0-36.0 [place] 124571-07-24 19:43:00 Test Item Value Reference Range Interpretation Comments RDW (test code = RDW) 14.1 11.5-14.5 [place] 124571-07-24 19:43:00 Test Item Value Reference Range Interpretation Comments Platelet (test code = Platelet) 246 133-450 [place] 124571-07-24 19:43:00 Test Item Value Reference Range Interpretation Comments MPV (test code = MPV) 8.6 7.4-10.4 [place] 124571-07-24 19:43:00 Test Item Value Reference Range Interpretation Comments Segs (test code = Segs) 52.2 45.0-75.0 [place] 124571-07-24 19:43:00 Test Item Value Reference Range Interpretation Comments Lymphocytes (test code = Lymphocytes) 37.2 20.0-40.0 [place] 124571-07-24 19:43:00 Test Item Value Reference Range Interpretation Comments Monocytes (test code = Monocytes) 7.5 2.0-12.0 [place] 124571-07-24 19:43:00 Test Item Value Reference Range Interpretation Comments Eosinophils (test code = 2.7 See_Comment [A utomated message] The Eosinophils) system which ge nerated this result tra nsmitted reference range : <=4.0. The reference r farrah was not used to int erpret this result as normal/abnormal . [place] 124571-07-24 19:43:00 Test Item Value Reference Range Interpretation Comments Basophils (test code = 0.4 See_Comment [Aut omated message] The Basophils) system which ge nerated this result tra nsmitted reference range : <=1.0. The reference r farrah was not used to int erpret this result as normal/abnormal . [facility]cosThjocnrXBZRDSFYCI5164-97-06 19:43:00 Test Item Value Reference Range Interpretation Comments Neutrophils # (test code = Neutrophils 4.0 1.5-8.1 #) [facility]cosEgjgnjrDXREQALCLN8878-97-95 19:43:00 Test Item Value Reference Range Interpretation Comments Lymphocytes # (test code = Lymphocytes 2.9 1.0-5.5 #) [facility]cosKjkoclaODNQBMLSUJ7306-94-47 19:43:00 Test Item Value Reference Range Interpretation Comments Monocytes # (test code 0.6 See_Comment [Aut omated message] The = Monocytes #) system which generated this result tra nsmitted reference range : <=0.8. The reference r farrah was not used to int erpret this result as normal/abnormal . [facility]cosYiceokzEGSLWIZRAQ5388-92-82 19:43:00 Test Item Value Reference Range Interpretation Comments Eosinophils # (test code 0.2 See_Comment [A utomated message] The = Eosinophils #) system whic h generated this result tra nsmitted reference range : <=0.5. The reference r farrah was not used to int erpret this result as normal/abnormal . [facility]cosRtdojipYPNXCRNDYU4004-44-49 19:43:00 Test Item Value Reference Range Interpretation Comments Microcyte (test code = 1+ *ABN*(10/20/20 Microcyte) 2:43 PM) [facility] (ID NOW RAPID TESTING)2020-08-06 03:39:43 Test Item Value Reference Range Interpretation Comments SARS-CoV-2 Rapid ID NOW Not Detected Not Detected (test code = 48088-2) FALLON (test code = FALLON) ID NOW COVID-19 Assay is an isothermal nucleic acid amplification test intended for the qualitative detection of nucleic acid from SARS-CoV-2 viral RNA in nasopharyngeal ([employer]) specimens. It is used under Emergency Use [...] indicated. Lab Interpretation Normal (test code = 01147-3) [facility]. METABOLIC PANEL (80255)2020-08-06 03:11:02 Test Item Value Reference Range Interpretation Comments NA (test code = 138 mmol/L 135-145 3144382684) K (test code = 4.6 mmol/L 3.5-5.0 7504004567) CL (test code = 102 mmol/L 98-108 8115025834) CO2 TOTAL (test code = 23 mmol/L 23-31 3310882306) AGAP (test code = 2-16 1970283311) BUN (test code = 17 mg/dL 7-23 1283520887) GLUCOSE (test code = 477 mg/dL 70-110 HH 7441672492) CREATININE (test code = 0.70 mg/dL 0.50-1.04 1954663196) TOTAL BILI (test code = 0.6 mg/dL 0.1-1.8 0080261263) CALCIUM (test code = 9.4 mg/dL 8.6-10.6 5538772846) T PROTEIN (test code = 7.4 g/dL 6.3-8.2 3024968581) ALBUMIN (test code = 4.4 g/dL 3.5-5.0 3798544704) ALK PHOS (test code = 113 U/L 34-122 3689149819) ALTv (test code = 22 U/L 5-35 1742-6) AST(SGOT) (test code = 35 U/L 13-40 2057237218) eGFR (test code = mL/min/1.73m2 5412489516) FALLON (test code = FALLON) Association of [...] tests). Lab Interpretation Abnormal (test code = 61585-5) [facility] Fzppa6614[facility]23[facility]45 03:07:41 Test Item Value Reference Range Interpretation Comments LIPASE (test code = 4944532986) 169 U/L 0-220 Lab Interpretation (test code = Normal 06703-9) [facility] CenterCB with Pxeeemhheagy2628-86-67 02:40:54 Test Item Value Reference Range Interpretation Comments WBC (test code = See_Comment [Automated 8030-2) message] The sy stem which generated this result transmitted reference range : 4.30 - 11.10 10*3/?L. The reference range was not used to interpret this result as normal/abnormal . RBC (test code = See_Comment H [Automated 947-6) message] The sy stem which generated this [...] (test code = 38.2 fL 39.0-49.9 L 05085-8) RDW-CV (test code = 13.5 % 12.0-15.5 788-0) PLT (test code = See_Comment [Automated 777-3) message] The sy stem which generated this result transmitted reference range : 166 - 358 10*3/ ?L. The reference r farrah was not used to interpret this result as normal/abnormal . MPV (test code = 10.7 fL 9.5-12.9 15898-8) NRBC/100 WBC (test See_Comment [Automat ed code = 5101769647) message] The system which generated this result transmitted reference range : 0.0 - 10.0 /100 WBCs. The refer ence range was not u sed to interpret th is result as normal/abnormal . NRBC x10^3 (test code <0.01 See_Comment [Auto mated = 3164264460) message] The s ystem which generated this result transmitted reference range : 10*3/?L. The reference range was not used to interpret this result as normal/abnormal . GRAN MAT (NEUT) % 62.1 % (test code = 770-8) IMM GRAN % (test code 0.70 % = 3455374971) LYMPH % (test code = 29.4 % 736-9) MONO % (test code = 5.2 % 5905-5) EOS % (test code = 1.9 % 713-8) BASO % (test code = 0.7 % 706-2) GRAN MAT x10^3(ANC) 6.64 10*3/uL 1.88-7.09 (test code = 3886838135) IMM GRAN x10^3 (test 0.07 10*3/uL 0.00-0.06 H code = 4352773466) LYMPH x10^3 (test code 3.14 10*3/uL 1.32-3.29 = 731-0) MONO x10^3 (test code 0.56 10*3/uL 0.33-0.92 = 742-7) EOS x10^3 (test code = 0.20 10*3/uL 0.03-0.39 711-2) BASO x10^3 (test code 0.07 10*3/uL 0.01-0.07 = 704-7) Lab Interpretation Abnormal (test code = 89024-4) [facility] Whole [id number] 02:27:55 Test Item Value Reference Range Interpretation Comments LACTIC ACID (test code = 2.34 mmol/L 0.50-2.20 H 5416793624) Lab Interpretation (test code = Abnormal 96072-5) [facility]20[facility] 02:03:28 Test Item Value Reference Range Interpretation Comments APPEARANCE (test code = Cloudy Clear A 3674036379) COLOR (test code = Yellow Yellow 9803823345) PH (test code = 4.8-8.0 2185247291) SP GRAVITY (test code = 1.003-1.030 H 3487688554) GLU U QUAL (test code = 500 mg/dL Normal A 2408989717) BLOOD (test code = Negative Negative 0035542963) KETONES (test code = Negative Negative 0966382149) PROTEIN (test code = Negative Negative 2887-8) UROBILIN (test code = Normal Normal 3077057891) BILIRUBIN (test code = Negative Negative 9112160756) NITRITE (test code = Negative Negative 1225796990) LEUK PARTH (test code = 250/uL Negative A 0708163447) RBC/HPF (test code = See_Comment [Autom ated message] 7302826215) The system [employer] generated this result transmit jesse reference range : 0 - 3 HPF. The refe rence range was not u sed to interpret th is result as normal/abnormal . WBC/HPF (test code = See_Comment H [Autom ated message] 5516387597) The system [employer] generated this result transmit jesse reference range : 0 - 5 HPF. The refe rence range was not u sed to interpret th is result as normal/abnormal . BACTERIA (test code = Few Negative A 2085185813) MUCOUS (test code = Slight Negative LPF A 1830232969) SQ EPITH (test code = HPF 5106037460) Lab Interpretation (test Abnormal code = 59733-9) [facility] (ID NOW RAPID TESTING)2020-07-23 01:04:25 Test Item Value Reference Range Interpretation Comments SARS-CoV-2 Rapid ID NOW Not Detected Not Detected (test code = 23717-3) FALLON (test code = FALLON) ID NOW COVID-19 Assay is an isothermal nucleic acid amplification test intended for the qualitative detection of nucleic acid from SARS-CoV-2 viral RNA in nasopharyngeal ([employer]) specimens. It is used under Emergency Use [...] indicated. Lab Interpretation Normal (test code = 66119-0) [facility] CenterTHYROID STIMULATING [id number] 23:54:39 Test Item Value Reference Range Interpretation Comments TSH (test code = See_Comment [Automated message] 6484453003) The system [employer] generated this result transmitted ref erence range: 0.45 - 4 .70 mIU/L. The refe rence range was not u sed to interpret this result as normal/abnor mal. Lab Interpretation (test Normal code = 63204-6) [facility] CenterFR [id number] 23:43:00 Test Item Value Reference Range Interpretation Comments FREE T4 (test code = See_Comment [Autom ated message] 5152298635) The system [employer] generated this result transmitted ref erence range: 0.78 - 2 .20 ng/dL:. The ref erence range was not u sed to interpret this result as normal/abnor mal. Lab Interpretation (test Normal code = 98067-6) [facility] Metabolic Panel (NA, K, CL, CO2, GLUCOSE, BUN, CREATININE, CA)2020-07-22 23:41:03 Test Item Value Reference Range Interpretation Comments NA (test code = 136 mmol/L 135-145 1224395139) K (test code = 4.0 mmol/L 3.5-5.0 8517999683) CL (test code = 97 mmol/L 98-108 L 4979791955) CO2 TOTAL (test code = 30 mmol/L 23-31 1600834328) AGAP (test code = 2-16 6753240148) BUN (test code = 10 mg/dL 7-23 6478467840) GLUCOSE (test code = 483 mg/dL 70-110 HH 7117601366) CREATININE (test code = 0.64 mg/dL 0.50-1.04 2998533920) CALCIUM (test code = 9.5 mg/dL 8.6-10.6 1155321913) eGFR (test code = mL/min/1.73m2 9177299127) FALLON (test code = FALLON) Association of [...] tests). Lab Interpretation Abnormal (test code = 49585-3) [facility] CenterHepatic Function Panel (ALB, T.PRO, BILI T, BU/BC, ALT, AST, ALK PHOS)2020-07-22 23:40:08 Test Item Value Reference Range Interpretation Comments TOTAL BILI (test code = 4480676900) 0.3 mg/dL 0.1-1.1 BILI UNCON (test code = 6534600527) 0.2 mg/dL 0.1-1.1 BILI CONJ (test code = 2169744199) 0.0 mg/dL 0.0-0.3 T PROTEIN (test code = 0990650082) 6.4 g/dL 6.3-8.2 ALBUMIN (test code = 6689629518) 3.9 g/dL 3.5-5.0 ALK PHOS (test code = 6088232239) 125 U/L 34-122 H ALTv (test code = 1742-6) 21 U/L 5-35 AST(SGOT) (test code = 6034233971) 19 U/L 13-40 Lab Interpretation (test code = Abnormal 44525-6) [facility] CenterN-TERMINAL [id number] 23:40:08 Test Item Value Reference Range Interpretation Comments NT-proBNP (test code 73 pg/mL See_Comment [Autom ated = 9566440507) message] The system which generated this result transmitted reference range : <=125. The reference range was not used to interpret this result as normal/abnormal . FALLON (test code = FALLON) Biotin has been reported to cause a negative bias, interpret results relative to patient's use of biotin. Lab Interpretation Normal (test code = 44133-4) [facility] CenterTroponin [id number] 23:40:08 Test Item Value Reference Range Interpretation Comments TROPONIN I (test 0.001 ng/mL See_Comment [Automated code = 4659091452) message] The system which generated this result [...] ? Lab Interpretation Normal (test code = 42839-3) [facility] CenterLIPASE2021-04-25 23:22:59 Test Item Value Reference Range Interpretation Comments LIPASE (test code = 6896722781) 141 U/L 0-220 Lab Interpretation (test code = Normal 09471-0) [facility] CenterUrinalysis2021-04-25 23:20:48 Test Item Value Reference Range Interpretation Comments APPEARANCE (test code = Clear Clear 8929066505) COLOR (test code = Straw Yellow A 1178102610) PH (test code = 4.8-8.0 9264281815) SP GRAVITY (test code = 1.003-1.030 0441478187) GLU U QUAL (test code = 500 mg/dL Normal A 1581250759) BLOOD (test code = Negative Negative 9155711148) KETONES (test code = Negative Negative 1872332962) PROTEIN (test code = Negative Negative 2887-8) UROBILIN (test code = Normal Normal 5118836911) BILIRUBIN (test code = Negative Negative 2276415179) NITRITE (test code = Negative Negative 6293181069) LEUK PARTH (test code = Negative Negative 3383393808) RBC/HPF (test code = See_Comment [Autom ated message] 1085173939) The system whic h generated this result transmit jesse reference range : 0 - 3 HPF. The refe rence range was not u sed to interpret th is result as normal/abnormal . WBC/HPF (test code = See_Comment [Autom ated message] 2784159993) The system [employer] generated this result transmit jesse reference range : 0 - 5 HPF. The refe rence range was not u sed to interpret th is result as normal/abnormal . BACTERIA (test code = Negative Negative 9476457668) SQ EPITH (test code = HPF 8055499979) Lab Interpretation (test Abnormal code = 76449-0) [facility] with [id number] 23:01:38 Test Item Value Reference Range Interpretation Comments WBC (test code = See_Comment [Automated 6490-2) message] The sy stem which generated this [...] (test code = 37.3 fL 39.0-49.9 L 69992-0) RDW-CV (test code = 12.8 % 12.0-15.5 788-0) PLT (test code = See_Comment [Automated 777-3) message] The sy stem which generated this result transmitted reference range : 166 - 358 10*3/ ?L. The reference r farrah was not used to interpret this result as normal/abnormal . MPV (test code = 10.8 fL 9.5-12.9 97636-5) NRBC/100 WBC (test See_Comment [Automat ed code = 0010673323) message] The system which generated this result transmitted reference range : 0.0 - 10.0 /100 WBCs. The refer ence range was not u sed to interpret th is result as normal/abnormal . NRBC x10^3 (test code <0.01 See_Comment [Auto mated = 7822329486) message] The s ystem which generated this result transmitted reference range : 10*3/?L. The reference range was not used to interpret this result as normal/abnormal . GRAN MAT (NEUT) % 55.0 % (test code = 770-8) IMM GRAN % (test code 0.30 % = 5334281838) LYMPH % (test code = 35.6 % 736-9) MONO % (test code = 7.2 % 5905-5) EOS % (test code = 1.4 % 713-8) BASO % (test code = 0.5 % 706-2) GRAN MAT x10^3(ANC) 3.20 10*3/uL 1.88-7.09 (test code = 0964570423) IMM GRAN x10^3 (test <0.03 0.00-0.06 code = 6955039077) LYMPH x10^3 (test code 2.07 10*3/uL 1.32-3.29 = 731-0) MONO x10^3 (test code 0.42 10*3/uL 0.33-0.92 = 742-7) EOS x10^3 (test code = 0.08 10*3/uL 0.03-0.39 711-2) BASO x10^3 (test code 0.03 10*3/uL 0.01-0.07 = 704-7) Lab Interpretation Abnormal (test code = 17266-3) [facility]PO[facility] (AUT[facility]ATED)2020-07-22 22:21:14 Test Item Value Reference Range Interpretation Comments POCT GLU (test code = 9873825714) 428 mg/dL 70-110 H Lab Interpretation (test code = Abnormal 60026-5) [facility] CenterCOM. METABOLIC PANEL (51125)2020-05-19 22:32:00 Test Item Value Reference Range Interpretation Comments NA (test code = 137 mmol/L 135-145 7080327128) K (test code = 4.0 mmol/L 3.5-5 1143328536) CL (test code = 102 mmol/L 98-108 7711978699) CO2 TOTAL (test code = 25 mmol/L 23-31 2981599094) AGAP (test code = 2-16 2009227742) BUN (test code = 11 mg/dL 7-23 3414254874) GLUCOSE (test code = 270 mg/dL 70-110 H 5489398879) CREATININE (test code = 0.51 mg/dL 0.5-1.04 3549575703) TOTAL BILI (test code = 0.5 mg/dL 0.1-1.7 1126978845) CALCIUM (test code = 9.0 mg/dL 8.6-10.6 3808324642) T PROTEIN (test code = 7.4 g/dL 6.3-8.2 5341385960) ALBUMIN (test code = 4.4 g/dL 3.5-5 4162551124) ALK PHOS (test code = 96 U/L 34-122 8240302832) ALTv (test code = 18 U/L 5-35 1742-6) AST(SGOT) (test code = 21 U/L 13-40 8241781179) eGFR Calculation mL/min/1.73m2 (Non-) (test code = 7843927532) eGFR Calculation mL/min/1.73m2 () (test code = 7922924700) FALLON (test code = FALLON) Association of [...] tests). Lab Interpretation Abnormal (test code = 41061-7) [facility] CenterL[facility]2021-[facility] 22:32:00 Test Item Value Reference Range Interpretation Comments LIPASE (test code = 5520085069) 121 U/L 0-220 Lab Interpretation (test code = Normal 37308-3) [facility] CenterURIN[facility]YSIS2021-02-20 22:30:00 Test Item Value Reference Range Interpretation Comments APPEARANCE (test code = Hazy Clear A 2217839156) COLOR (test code = Yellow Yellow 9653288800) PH (test code = 4.8-8.0 4134626350) SP GRAVITY (test code = 1.003-1.030 2401841357) GLU U QUAL (test code = 500 mg/dL Normal A 2775212257) BLOOD (test code = 1+ Negative A 9897970238) KETONES (test code = Negative Negative 5764493618) PROTEIN (test code = 30 mg/dL Negative A 2887-8) UROBILIN (test code = Normal Normal 3186183293) BILIRUBIN (test code = Negative Negative 8384182979) NITRITE (test code = Negative Negative 4737625755) LEUK PARTH (test code = 75/uL Negative A 8687766965) RBC/HPF (test code = See_Comment H [Autom ated message] 0664800503) The system [employer] generated this result transmit jesse reference range : 0 - 3 HPF. The refe rence range was not u sed to interpret th is result as normal/abnormal . WBC/HPF (test code = See_Comment H [Autom ated message] 2210680916) The system whic h generated this result transmit jesse reference range : 0 - 5 HPF. The refe rence range was not u sed to interpret th is result as normal/abnormal . BACTERIA (test code = Few Negative A 3755157631) MUCOUS (test code = Slight Negative LPF A 3873877306) SQ EPITH (test code = HPF 7402741068) Lab Interpretation (test Abnormal code = 62945-3) [facility] WITH [id number] 22:14:00 Test Item Value Reference Range Interpretation [...] (test code = 37.7 fL 39-49.9 L 87829-0) RDW-CV (test code = 13.0 % 12-15.5 788-0) PLT (test code = See_Comment [Automated 777-3) message] The sy stem which generated this result transmitted reference range : 166 - 358 10*3/ ?L. The reference r farrah was not used to interpret this result as normal/abnormal . MPV (test code = 11.1 fL 9.5-12.9 95503-8) NRBC/100 WBC (test See_Comment [Automat ed code = 4198747232) message] The system which generated this result transmitted reference range : 0.0 - 10.0 /100 WBCs. The refer ence range was not u sed to interpret th is result as normal/abnormal . NRBC x10^3 (test code <0.01 See_Comment [Auto mated = 1700108684) message] The s ystem which generated this result transmitted reference range : 10*3/?L. The reference range was not used to interpret this result as normal/abnormal . GRAN MAT (NEUT) % 49.2 % (test code = 770-8) IMM GRAN % (test code 0.70 % = 3647677964) LYMPH % (test code = 41.0 % 736-9) MONO % (test code = 7.0 % 5905-5) EOS % (test code = 1.5 % 713-8) BASO % (test code = 0.6 % 706-2) GRAN MAT x10^3(ANC) 4.07 10*3/uL 1.88-7.09 (test code = 1619696026) IMM GRAN x10^3 (test 0.06 10*3/uL 0-0.06 code = 8924662370) LYMPH x10^3 (test code 3.39 10*3/uL 1.32-3.29 H = 731-0) MONO x10^3 (test code 0.58 10*3/uL 0.33-0.92 = 742-7) EOS x10^3 (test code = 0.12 10*3/uL 0.03-0.39 711-2) BASO x10^3 (test code 0.05 10*3/uL 0.01-0.07 = 704-7) Lab Interpretation Abnormal (test code = 07036-1) [facility]2019-08-22 07:08:00 Test Item Value Reference Range Interpretation Comments POCT GLU (test code = 4965308347) 290 mg/dL 70-110 H Lab Interpretation (test code = Abnormal 38844-1) [facility]. METABOLIC PANEL (40132)2019-08-22 05:49:00 Test Item Value Reference Range Interpretation Comments NA (test code = 139 mmol/L 135-145 2964793240) K (test code = 4.5 mmol/L 3.5-5 4284561964) CL (test code = 103 mmol/L 98-108 1306113678) CO2 TOTAL (test code = 25 mmol/L 23-31 8404330311) AGAP (test code = 2-16 3095448037) BUN (test code = 7 mg/dL 7-23 7148588673) GLUCOSE (test code = 312 mg/dL 70-110 H 5233721817) CREATININE (test code = 0.55 mg/dL 0.5-1.04 7426662916) TOTAL BILI (test code = 0.7 mg/dL 0.1-1.1 0568505849) CALCIUM (test code = 10.0 mg/dL 8.6-10.6 7481949593) T PROTEIN (test code = 8.4 g/dL 6.3-8.2 H 9386619001) ALBUMIN (test code = 4.7 g/dL 3.5-5 8768519124) ALK PHOS (test code = 82 U/L 34-122 3013722223) ALTv (test code = 18 U/L 5-35 1742-6) AST(SGOT) (test code = 34 U/L 13-40 9152071566) eGFR Calculation mL/min/1.73m2 (Non-) (test code = 7137888184) eGFR Calculation mL/min/1.73m2 () (test code = 5765390987) FALLON (test code = FALLON) Association of [...] tests). Lab Interpretation Abnormal (test code = 73569-2) [facility]2020-[facility] 05:49:00 Test Item Value Reference Range Interpretation Comments LIPASE (test code = 9162126427) 174 U/L 0-220 Lab Interpretation (test code = Normal 56010-0) [facility] CenterCB WITH [id number] 05:35:00 Test Item Value Reference Range Interpretation Comments WBC (test code = See_Comment [Automated 1690-2) message] The sy stem which generated this result transmitted reference range : 4.30 - 11.10 10*3/?L. The reference range was not used to interpret this result as normal/abnormal . RBC (test code = See_Comment [Automated 355-8) message] The sy stem which generated this [...] (test code = 37.7 fL 39-49.9 L 68980-9) RDW-CV (test code = 13.3 % 12-15.5 788-0) PLT (test code = See_Comment [Automated 982-3) message] The sy stem which generated this result transmitted reference range : 166 - 358 10*3/ ?L. The reference r farrah was not used to interpret this result as normal/abnormal . MPV (test code = 11.2 fL 9.5-12.9 28341-1) NRBC/100 WBC (test See_Comment [Automat ed code = 4542142153) message] The system which generated this result transmitted reference range : 0.0 - 10.0 /100 WBCs. The refer ence range was not u sed to interpret th is result as normal/abnormal . NRBC x10^3 (test code <0.01 See_Comment [Auto mated = 3383763386) message] The s ystem which generated this result transmitted reference range : 10*3/?L. The reference range was not used to interpret this result as normal/abnormal . GRAN MAT (NEUT) % 57.4 % (test code = 770-8) IMM GRAN % (test code 0.50 % = 8987398805) LYMPH % (test code = 33.7 % 736-9) MONO % (test code = 6.6 % 5905-5) EOS % (test code = 1.3 % 713-8) BASO % (test code = 0.5 % 706-2) GRAN MAT x10^3(ANC) 6.27 10*3/uL 1.88-7.09 (test code = 3308941542) IMM GRAN x10^3 (test 0.05 10*3/uL 0-0.06 code = 4930859308) LYMPH x10^3 (test code 3.67 10*3/uL 1.32-3.29 H = 731-0) MONO x10^3 (test code 0.72 10*3/uL 0.33-0.92 = 742-7) EOS x10^3 (test code = 0.14 10*3/uL 0.03-0.39 711-2) BASO x10^3 (test code 0.05 10*3/uL 0.01-0.07 = 704-7) Lab Interpretation Abnormal (test code = 83902-0) [facility]COVID[facility] (ID NOW RAPID TESTING)2019-08-22 05:28:00 Test Item Value Reference Range Interpretation Comments SARS-CoV-2 Rapid ID NOW Not Detected Not Detected (test code = 88710-0) FALLON (test code = FALLON) ID NOW COVID-19 Assay is an isothermal nucleic acid amplification test intended for the qualitative detection of nucleic acid from SARS-CoV-2 viral RNA in nasopharyngeal ([employer]) specimens. It is used under Emergency Use [...] indicated. Lab Interpretation Normal (test code = 99498-8) [facility]UR[facility]IS2020-[facility]-25 05:20:00 Test Item Value Reference Range Interpretation Comments APPEARANCE (test code = Clear Clear 7920219186) COLOR (test code = Straw Yellow A 5842469370) PH (test code = 4.8-8.0 1960963233) SP GRAVITY (test code = 1.003-1.030 0666696604) GLU U QUAL (test code = 500 mg/dL Normal A 3777787727) BLOOD (test code = Negative Negative INTERFERE NCE FROM 5974512763) ASCORBIC ACID M AY CAUSE FALSE NEG ATIVE RESULT KETONES (test code = Negative Negative 0161593818) PROTEIN (test code = Negative Negative 2887-8) UROBILIN (test code = Normal Normal 3059667945) BILIRUBIN (test code = Negative Negative 1721694695) NITRITE (test code = Negative Negative 2700615208) LEUK PARTH (test code = Negative Negative 6744552275) RBC/HPF (test code = <1 See_Comment [Autom ated message] 7066322994) The system [employer] generated this result transmitted ref erence range: 0 - 3 HP F. The reference range was not used to int erpret this result as normal/abnormal . WBC/HPF (test code = See_Comment [Autom ated message] 2477146095) The system [employer] generated this result transmitted ref erence range: 0 - 5 HP F. The reference range was not used to int erpret this result as normal/abnormal . BACTERIA (test code = Few Negative A 8608107059) MUCOUS (test code = Slight Negative LPF A 9541795014) SQ EPITH (test code = HPF 9553618113) Lab Interpretation Abnormal (test code = 77242-9) [facility] [id number] 17:07:00 Test Item Value Reference Range Interpretation Comments POC-GLUCOSE METER 298 mg/dL 70-110 H TESTED AT [place] [address] ([facility]) (test code = [facility] 1538) [address] POCT-GLUCOSE [id number] 12:11:00 Test Item Value Reference Range Interpretation Comments POC-GLUCOSE METER 331 mg/dL 70-110 H Notified R Devante SOUZA/TESTED ([facility]) (test code = AT [address]) [facility] [address] POCT-GLUCOSE [id number] 10:55:00 Test Item Value Reference Range Interpretation Comments POC-GLUCOSE METER 365 mg/dL 70-110 H TESTED AT [place] [address] ([facility]) (test code = [facility] 1538) [address] POCT-GLUCOSE [id number] 08:44:00 Test Item Value Reference Range Interpretation Comments POC-GLUCOSE METER 291 mg/dL 70-110 H TESTED AT [place] [address] ([facility]) (test code = [facility] 1538) [address] LIPID [id number] 05:56:00 Test Item Value Reference Range Interpretation Comments TRIGLYCERIDES ([facility]) (test code = 279 mg/dL 540) CHOLESTEROL ([facility]) (test code = 119 mg/dL 631) HDL CHOLESTEROL ([facility]) (test code 22 mg/dL = 976) LDL CHOLESTEROL CALCULATED ([facility]) 41 mg/dL (test code = 633) Triglyceride Reference Range: Low Risk <150 Borderline 150-199 High Risk 200- 499 Very High Risk >=500Cholesterol Reference Range: Low Risk <200 Borderline 200-239 High Risk >240HDL Cholesterol Reference Range: Low Risk >=60 High Risk <40LDL Cholesterol Reference Range: Optimal <100 Near Optimal 100-129 Borderline 130-159 High 160-189 Very High >=190POCT-GLUCOSE [id number] 21:50:00 Test Item Value Reference Range Interpretation Comments POC-GLUCOSE METER 318 mg/dL 70-110 H TESTED AT [place] [address] ([facility]) (test code = [facility] Flynn [place] 1538) [address] POCT-GLUCOSE [id number] 18:04:00 Test Item Value Reference Range Interpretation Comments POC-GLUCOSE METER 238 mg/dL 70-110 H TESTED AT [place] [address] ([facility]) (test code = [facility] Flynn [place] 1538) [address] POCT-GLUCOSE [id number] 12:22:00 Test Item Value Reference Range Interpretation Comments POC-GLUCOSE METER 290 mg/dL 70-110 H TESTED AT [place] [address] ([facility]) (test code = CHRISTAmvona Rina [place] 1538) [address] POCT-GLUCOSE [id number] 09:20:00 Test Item Value Reference Range Interpretation Comments POC-GLUCOSE METER 293 mg/dL 70-110 H TESTED AT [place] [address] ([facility]) (test code = [facility]ETH Flynn [place] 1538) [address] POCT-GLUCOSE [id number] 21:00:00 Test Item Value Reference Range Interpretation Comments POC-GLUCOSE METER 225 mg/dL 70-110 H TESTED AT [place] [address] ([facility]) (test code = GetBulb Rina [place] 1538) [address] CT, CAROTID, [id number] 18:01:00FINAL REPORT CT angiogram of the upper [...] Verified Date/Time: 08/30/2017 18:01:31 Reading Location: [address] Neuro Reading [facility] [id number] 18:01:00FINAL REPORT CT angiogram of the upper [...] Hall Verified Date/Time: 08/30/2017 18:01:31 Reading Location: [facility] B1 C013V Neuro Reading Room POCT-GLUCOSE [id number] 17:21:00 Test Item Value Reference Range Interpretation Comments POC-GLUCOSE METER 256 mg/dL 70-110 H TESTED AT [place] [address] (BEAKER) (test code = [facility] [place] 1538) [address] POCT-GLUCOSE [id number] 12:00:00 Test Item Value Reference Range Interpretation Comments POC-GLUCOSE METER 289 mg/dL 70-110 H TESTED AT [place] [address] (BEAKER) (test code = [facility] 1538) [address] BASIC METABOLIC [id number] 10:12:00 Test Item Value Reference Range Interpretation [...] 697) EGFR (BEAKER) (test 75 mL/min/1.73 ESTIMA JESSE GFR IS code = 1092) sq m NOT ACCURATE CREATININE CLEARANCE IN PREDICTING GLOMERULAR FILTRATION RATE . ESTIMATED GFR I S NOT APPLICABLE FOR DIALYSIS PATIEN TS. POCT-GLUCOSE [id number] 08:42:00 Test Item Value Reference Range Interpretation Comments POC-GLUCOSE METER 259 mg/dL 70-110 H TESTED AT [facility] 6720 (BEAKER) (test code = [facility] 1538) [address] TROPONIN [id number] 06:14:00 Test Item Value Reference Range Interpretation [...] = 2801) RAD, CHEST, 1 VIEW, NON [id number] 04:23:00Reason for exam:->chest painShould this be performed at the bedside?->YesFINAL REPORT Comparison examination: None No pneumothorax, focal pulmonary conso lidation, or significant pleural effusion. Normal cardiomediastinal contours. Normal skeleton and soft tissues. Impression: No acute abnormality. Signed: Ervin Jenkins Verified Date/Time: 08/30/2017 04:23:04 Reading Location: [address] Reading Room POCT-GLUCOSE [id number] 21:18:00 Test Item Value Reference Range Interpretation Comments POC-GLUCOSE METER 151 mg/dL 70-110 H TESTED AT [facility] 6720 ([facility]) (test [facility] = [facility] 1538) [address] POCT-GLUCOSE [id number] 17:59:00 Test Item Value Reference Range Interpretation Comments POC-GLUCOSE METER 146 mg/dL 70-110 H TESTED AT [facility] 6720 ([facility]) (test code = [facility] Rina [facility] 1538) [address] HEMOGLOBIN [id number] 15:56:00 Test Item Value Reference Range Interpretation Comments HEMOGLOBIN A1C ([facility]) (test code = 13.7 % 4.3-6.1 H 368) CT, BRAIN, WITHOUT [id number] 14:52:00FINAL REPORT CT head without contrast. Comparisons: [...] Verified Date/Time: 08/29/2017 14:52:09 Reading Location: [address] Neuro Reading Room POCT-GLUCOSE [id number] 14:17:00 Test Item Value Reference Range Interpretation Comments POC-GLUCOSE METER 423 mg/dL 70-110 Notified R Devante SOUZA/MIKKI (JESSICA) (test code = AT [facility] 67[address] [facility] 1538) [facility] 7703 0 VITAMIN [id number] 06:48:00 Test Item Value Reference Range Interpretation Comments [facility]IN B12 ([facility] (test code = 300 pg/mL 213816 774) TSH/FREE T4 IF [id number] 06:48:00 Test Item Value Reference Range Interpretation Comments THYROID STIMULATING HORMONE 1.55 uIU/mL 0.35-4.94 ([facility] (test code = 772) CBC W/PLT COUNT & AUTO [id number] 05:10:00 Test Item Value Reference Range Interpretation [...] (BEAKER) (test code = 2801) URINALYSIS W/ [id number] 23:32:00 Test Item Value Reference Range Interpretation [...] Occasional SOURCE(BEAKER) (test code = 2795) TROPONIN [id number] 23:12:00 Test Item Value Reference Range Interpretation [...] acute neurological disease, and persistent tachyarrhythmia.BASIC METABOLIC [id number] 23:05:00 Test Item Value Reference Range Interpretation [...] 697) EGFR (BEAKER) (test 36 mL/min/1.73 ESTIMA JESSE GFR IS code = 1092) sq m NOT ACCURATE CREATININE CLEARANCE IN PREDICTING GLOMERULAR FILTRATION RATE . ESTIMATED GFR I S NOT APPLICABLE FOR DIALYSIS PATIEN TS. POCT-GLUCOSE [id number] 20:49:00 Test Item Value Reference Range Interpretation Comments POC-GLUCOSE METER 376 mg/dL 70-110 H Notified R Devante SOUZA/TESTED (JESSICA) (test code = AT [facility] 6720 [facility] 0426) [facility] 7703 0 CHEM [id number] 08:07:00 Test Item Value Reference Range Interpretation Comments Magnesium Lvl (test code = Magnesium 1.7 1.8-2.4 Lvl) [facility] [id number] 08:07:00 Test Item Value Reference Range Interpretation Comments Phosphorus (test code = Phosphorus) 2.8 2.5-4.5 [facility] MichiganMdcdhtyVMIFFVKINSQS3665-53-74 08:07:00 Test Item Value Reference Range Interpretation Comments AGAP (test code = AGAP) 13.1 10.0-20.0 [facility]CmbadpdGESNLZCKOTXL0269-66-35 08:07:00 Test Item Value Reference Range Interpretation Comments Creatinine Lvl (test code = Creatinine 0.80 0.50-1.40 Lvl) [facility] HospitalBquiopbBDZOSQXSLRMM4791-10-71 08:07:00 Test Item Value Reference Range Interpretation Comments BUN (test code = BUN) 10 7-22 [facility] HospitalFxnbwmiTYLEJUHZDDEI6252-44-14 08:07:00 Test Item Value Reference Range Interpretation Comments Glucose Lvl (test code = Glucose Lvl) 322 70-99 [facility] MichiganSuojmctZSDMENGLLJLV9250-72-88 08:07:00 Test Item Value Reference Range Interpretation Comments Sodium Lvl (test code = Sodium Lvl) 139 135-145 [place] [id number] 08:07:00 Test Item Value Reference Range Interpretation Comments CO2 (test code = CO2) 29 24-32 [facility] MichiganBuomdoxMCLXJTDQXUNP4115-29-38 08:07:00 Test Item Value Reference Range Interpretation Comments Potassium Lvl (test code = Potassium 4.1 3.5-5.1 Lvl) [facility] MichiganXezztslECBGSQLNEMZF7334-23-37 08:07:00 Test Item Value Reference Range Interpretation Comments Chloride Lvl (test code = Chloride Lvl) 101 95-109 [facility] MichiganYkckbeeFLEZHMNSCBUQ4571-25-64 08:07:00 Test Item Value Reference Range Interpretation Comments Calcium Lvl (test code = Calcium Lvl) 8.1 8.5-10.5 [facility] MichiganRaaouebDXVDARTZTJLR2614-85-60 08:07:00 Test Item Value Reference Range Interpretation Comments eGFR (test code = eGFR) 89 [facility]cosCtsmaseOCCKFBNBUO9894-09-93 08:07:00 Test Item Value Reference Range Interpretation Comments Basophils # (test code 0.1 See_Comment [Aut omated message] The = Basophils #) system which generated this result tra nsmitted reference range : <=0.2. The reference r farrah was not used to int erpret this result as normal/abnormal . [facility]cosFsmmqpyFRSWTRTYOH0587-60-79 08:07:00 Test Item Value Reference Range Interpretation Comments Monocytes # (test code 0.5 See_Comment [Aut omated message] The = Monocytes #) system which generated this result tra nsmitted reference range : <=0.8. The reference r farrah was not used to int erpret this result as normal/abnormal . [facility]cosDhdmouyTJQPDORAIW7860-49-97 08:07:00 Test Item Value Reference Range Interpretation Comments Segs-Bands # (test code = Segs-Bands #) 4.0 1.5-8.1 [facility] MarcosGlfcipoJKTEPAHTZU7340-16-85 08:07:00 Test Item Value Reference Range Interpretation Comments Eosinophils # (test code 0.2 See_Comment [A utomated message] The = Eosinophils #) system whic h generated this result tra nsmitted reference range : <=0.5. The reference r farrah was not used to int erpret this result as normal/abnormal . [facility]cosWsbffqnLPSLBVWXEZ6171-81-76 08:07:00 Test Item Value Reference Range Interpretation Comments Lymphocytes # (test code = Lymphocytes 2.9 1.0-5.5 #) [facility] MarcosLjglrfnJXDUPTXOTB0110-05-19 08:07:00 Test Item Value Reference Range Interpretation Comments Basophils (test code = 0.8 See_Comment [Aut omated message] The Basophils) system which ge nerated this result tra nsmitted reference range : <=1.0. The reference r farrah was not used to int erpret this result as normal/abnormal . [facility] MarcosMnlrverBFRPKTZMBC1524-76-25 08:07:00 Test Item Value Reference Range Interpretation Comments Monocytes (test code = Monocytes) 6.7 2.0-12.0 [facility] MarcosQdayzagTCTNECBLYD0833-55-01 08:07:00 Test Item Value Reference Range Interpretation Comments Eosinophils (test code = 2.7 See_Comment [A utomated message] The Eosinophils) system which ge nerated this result tra nsmitted reference range : <=4.0. The reference r farrah was not used to int erpret this result as normal/abnormal . [facility] MarcosJsanyscOZFRNXKLPW2740-47-45 08:07:00 Test Item Value Reference Range Interpretation Comments Segs (test code = Segs) 51.9 45.0-75.0 [facility] MarcosYrxtzliVSYRIZVRFH9529-47-64 08:07:00 Test Item Value Reference Range Interpretation Comments Lymphocytes (test code = Lymphocytes) 37.9 20.0-40.0 [facility] MarcosFczhdjfPKPOSGSXUL1478-62-27 08:07:00 Test Item Value Reference Range Interpretation Comments MCH (test code = MCH) 26.7 pg 27.0-31.0 [facility] MarcosTnwjtdqBXXLBPMKAL2941-00-31 08:07:00 Test Item Value Reference Range Interpretation Comments MCV (test code = MCV) 80.7 80.0-98.0 [facility] MarcosYiwijpgBMNMETORIE1993-73-85 08:07:00 Test Item Value Reference Range Interpretation Comments Hct (test code = Hct) 36.6 36.0-48.0 [facility] MarcosBcaittrDFOVPDCEKV8577-04-29 08:07:00 Test Item Value Reference Range Interpretation Comments Hgb (test code = Hgb) 12.1 12.0-16.0 [facility] MarcosWvazftxMEWTYFTHHP6344-16-59 08:07:00 Test Item Value Reference Range Interpretation Comments WBC (test code = WBC) 7.8 3.7-10.4 [facility] MarcosSkbsqqqSDHPUTLRLG3218-06-13 08:07:00 Test Item Value Reference Range Interpretation Comments RBC (test code = RBC) 4.53 4.20-5.40 [facility] MarcosQlurjspEQCFHXYLWL5386-69-71 08:07:00 Test Item Value Reference Range Interpretation Comments Platelet (test code = Platelet) 228 133-450 [facility] MarcosWunoekyLDIUDHVFMI3310-06-24 08:07:00 Test Item Value Reference Range Interpretation Comments MPV (test code = MPV) 9.0 7.4-10.4 [facility] MarcosMvbigocSJYTWHPEZZ3259-24-57 08:07:00 Test Item Value Reference Range Interpretation Comments MCHC (test code = MCHC) 33.1 32.0-36.0 [facility] MarcosZkumhruXHGIZMOLQM0506-89-15 08:07:00 Test Item Value Reference Range Interpretation Comments RDW (test code = RDW) 13.8 11.5-14.5 [facility]2016-05-23 08:07:00 Test Item Value Reference Range Interpretation Comments Magnesium Lvl (test code = Magnesium 1.7 1.8-2.4 Lvl) [facility]2016-05-23 08:07:00 Test Item Value Reference Range Interpretation Comments Phosphorus (test code = Phosphorus) 2.8 2.5-4.5 [facility] MichiganSavcwvlYQBZZSUXYEAV3128-84-33 08:07:00 Test Item Value Reference Range Interpretation Comments AGAP (test code = AGAP) 13.1 10.0-20.0 [facility] MichiganVldrnlnHFXDZWHCGTFV3363-78-12 08:07:00 Test Item Value Reference Range Interpretation Comments Creatinine Lvl (test code = Creatinine 0.80 0.50-1.40 Lvl) [facility] MichiganFdtaaluFOWMVGHRUYZA5033-94-65 08:07:00 Test Item Value Reference Range Interpretation Comments BUN (test code = BUN) 10 7-22 [facility] MichiganUfdzdswZKLNCGPLWCXY9369-29-87 08:07:00 Test Item Value Reference Range Interpretation Comments Glucose Lvl (test code = Glucose Lvl) 322 70-99 [facility] MichiganMhxwnkrUBGFSFNOJYYA9039-26-11 08:07:00 Test Item Value Reference Range Interpretation Comments Sodium Lvl (test code = Sodium Lvl) 139 135-145 [facility] MichiganIumvgtvMDIFTBIJVABW3419-35-17 08:07:00 Test Item Value Reference Range Interpretation Comments CO2 (test code = CO2) 29 24-32 [facility] MichiganFhueqokJMPHSRIQXCHL7511-10-89 08:07:00 Test Item Value Reference Range Interpretation Comments Potassium Lvl (test code = Potassium 4.1 3.5-5.1 Lvl) [facility] MichiganQosqtkcCQWIIFXQBHBD4314-45-45 08:07:00 Test Item Value Reference Range Interpretation Comments Chloride Lvl (test code = Chloride Lvl) 101 95-109 [facility] MichiganHvadzgjOZAJERDBJCBI6810-84-32 08:07:00 Test Item Value Reference Range Interpretation Comments Calcium Lvl (test code = Calcium Lvl) 8.1 8.5-10.5 [facility] MichiganCbswrwhIYWDLAWMDUVL0017-35-41 08:07:00 Test Item Value Reference Range Interpretation Comments eGFR (test code = eGFR) 89 [facility]cosElgdxnxKAVDNQRCRO7964-34-24 08:07:00 Test Item Value Reference Range Interpretation Comments Basophils # (test code 0.1 See_Comment [Aut omated message] The = Basophils #) system which generated this result tra nsmitted reference range : <=0.2. The reference r farrah was not used to int erpret this result as normal/abnormal . [facility] MarcosQmoyfogLOFHTARGSY6740-76-00 08:07:00 Test Item Value Reference Range Interpretation Comments Monocytes # (test code 0.5 See_Comment [Aut omated message] The = Monocytes #) system which generated this result tra nsmitted reference range : <=0.8. The reference r farrah was not used to int erpret this result as normal/abnormal . [facility] MarcosBrhrxnlDRWYDWHSRD6072-07-61 08:07:00 Test Item Value Reference Range Interpretation Comments Segs-Bands # (test code = Segs-Bands #) 4.0 1.5-8.1 [facility] MarcosIgprwpkDKKNDASJPV4740-44-85 08:07:00 Test Item Value Reference Range Interpretation Comments Eosinophils # (test code 0.2 See_Comment [A utomated message] The = Eosinophils #) system whic h generated this result tra nsmitted reference range : <=0.5. The reference r farrah was not used to int erpret this result as normal/abnormal . [facility] MarcosBtssfefCQTLLVXLDL1329-55-21 08:07:00 Test Item Value Reference Range Interpretation Comments Lymphocytes # (test code = Lymphocytes 2.9 1.0-5.5 #) [facility]cosThftuijXEFCRNJGQM8195-52-71 08:07:00 Test Item Value Reference Range Interpretation Comments Basophils (test code = 0.8 See_Comment [Aut omated message] The Basophils) system which ge nerated this result tra nsmitted reference range : <=1.0. The reference r farrah was not used to int erpret this result as normal/abnormal . [facility] MarcosGocjexgQRIZLEDVHE3528-36-24 08:07:00 Test Item Value Reference Range Interpretation Comments Monocytes (test code = Monocytes) 6.7 2.0-12.0 [facility] MarcosPuukcuvBWYDOYYGUQ5475-44-74 08:07:00 Test Item Value Reference Range Interpretation Comments Eosinophils (test code = 2.7 See_Comment [A utomated message] The Eosinophils) system which ge nerated this result tra nsmitted reference range : <=4.0. The reference r farrah was not used to int erpret this result as normal/abnormal . [facility] MarcosHkibiiyILKLUZDKJE3008-46-98 08:07:00 Test Item Value Reference Range Interpretation Comments Segs (test code = Segs) 51.9 45.0-75.0 [facility]cosThmzinbZYYLQJIBZN5584-60-34 08:07:00 Test Item Value Reference Range Interpretation Comments Lymphocytes (test code = Lymphocytes) 37.9 20.0-40.0 [facility] MarcosGozcpnzNAAHGVWNDJ8606-62-99 08:07:00 Test Item Value Reference Range Interpretation Comments MCH (test code = MCH) 26.7 pg 27.0-31.0 [facility] MarcosXvgkalcJTWVZHYOPT8278-21-31 08:07:00 Test Item Value Reference Range Interpretation Comments MCV (test code = MCV) 80.7 80.0-98.0 [facility] MarcosCebwfpsZZSBUEOSAG6197-71-47 08:07:00 Test Item Value Reference Range Interpretation Comments Hct (test code = Hct) 36.6 36.0-48.0 [facility] MarcosIqjtkjlSYGXCGCCMN7646-47-79 08:07:00 Test Item Value Reference Range Interpretation Comments Hgb (test code = Hgb) 12.1 12.0-16.0 [facility] MarcosYsyuniaYCMPSILFJT7158-22-98 08:07:00 Test Item Value Reference Range Interpretation Comments WBC (test code = WBC) 7.8 3.7-10.4 [facility] MarcosJzqxgacYXUCJIFJSK3550-54-46 08:07:00 Test Item Value Reference Range Interpretation Comments RBC (test code = RBC) 4.53 4.20-5.40 [place] 810006-05-23 08:07:00 Test Item Value Reference Range Interpretation Comments Platelet (test code = Platelet) 228 133-450 [facility] MarcosXnztgjgDOTJWDEIQO9986-98-45 08:07:00 Test Item Value Reference Range Interpretation Comments MPV (test code = MPV) 9.0 7.4-10.4 [facility] MarcosLnohzarDIVKYANXYB4437-07-23 08:07:00 Test Item Value Reference Range Interpretation Comments MCHC (test code = MCHC) 33.1 32.0-36.0 [facility] MarcosZopoykqHGRFCERHIY8021-27-87 08:07:00 Test Item Value Reference Range Interpretation Comments RDW (test code = RDW) 13.8 11.5-14.5 [facility]2016-05-23 08:07:00 Test Item Value Reference Range Interpretation Comments Magnesium Lvl (test code = Magnesium 1.7 1.8-2.4 Lvl) [facility]2016-05-23 08:07:00 Test Item Value Reference Range Interpretation Comments Phosphorus (test code = Phosphorus) 2.8 2.5-4.5 [facility] MichiganNykhemoXVAOZCTKVHNS6338-40-45 08:07:00 Test Item Value Reference Range Interpretation Comments AGAP (test code = AGAP) 13.1 10.0-20.0 [facility] MichiganXyigiozOERPWKEDKNHJ4737-04-15 08:07:00 Test Item Value Reference Range Interpretation Comments Creatinine Lvl (test code = Creatinine 0.80 0.50-1.40 Lvl) [facility] MichiganFqxhtscFXLQLAKHJGOJ8387-77-79 08:07:00 Test Item Value Reference Range Interpretation Comments BUN (test code = BUN) 10 7-22 [facility] MichiganMeklhbbRXULXKTPXJOY4021-06-03 08:07:00 Test Item Value Reference Range Interpretation Comments Glucose Lvl (test code = Glucose Lvl) 322 70-99 [facility] MichiganLojojtlNJDZBZTGZWIJ6869-82-48 08:07:00 Test Item Value Reference Range Interpretation Comments Sodium Lvl (test code = Sodium Lvl) 139 135-145 [facility] MichiganZqcmukmHCUYNJRCVTNL6276-32-56 08:07:00 Test Item Value Reference Range Interpretation Comments CO2 (test code = CO2) 29 24-32 [facility] MichiganMueiqzlOGWBJPINPTJZ6175-49-36 08:07:00 Test Item Value Reference Range Interpretation Comments Potassium Lvl (test code = Potassium 4.1 3.5-5.1 Lvl) [facility] MichiganXtwpqadSUYRCZKNTZAS4144-13-50 08:07:00 Test Item Value Reference Range Interpretation Comments Chloride Lvl (test code = Chloride Lvl) 101 95-109 [facility] MichiganPhsnnwsWCEOLMXFWKTF2442-72-12 08:07:00 Test Item Value Reference Range Interpretation Comments Calcium Lvl (test code = Calcium Lvl) 8.1 8.5-10.5 [facility] MichiganUdyhpyfXMAPVJPLGMAE2774-98-64 08:07:00 Test Item Value Reference Range Interpretation Comments eGFR (test code = eGFR) 89 [facility] MarcosVcewlpuHYTVDTGHHG6639-12-22 08:07:00 Test Item Value Reference Range Interpretation Comments Basophils # (test code 0.1 See_Comment [Aut omated message] The = Basophils #) system which generated this result tra nsmitted reference range : <=0.2. The reference r farrah was not used to int erpret this result as normal/abnormal . [facility] MarcosAmnurccKYSNZCMCRY4117-28-77 08:07:00 Test Item Value Reference Range Interpretation Comments Monocytes # (test code 0.5 See_Comment [Aut omated message] The = Monocytes #) system which generated this result tra nsmitted reference range : <=0.8. The reference r farrah was not used to int erpret this result as normal/abnormal . [facility] MarcosIreqchcARQBBPGMDY5527-76-17 08:07:00 Test Item Value Reference Range Interpretation Comments Segs-Bands # (test code = Segs-Bands #) 4.0 1.5-8.1 [facility] MarcosGulfcieFJRKFEMVTL1724-53-31 08:07:00 Test Item Value Reference Range Interpretation Comments Eosinophils # (test code 0.2 See_Comment [A utomated message] The = Eosinophils #) system whic h generated this result tra nsmitted reference range : <=0.5. The reference r farrah was not used to int erpret this result as normal/abnormal . [place] 810006-05-23 08:07:00 Test Item Value Reference Range Interpretation Comments Lymphocytes # (test code = Lymphocytes 2.9 1.0-5.5 #) [facility] MarcosMnfmbtiXIUEOJWWGZ8571-93-09 08:07:00 Test Item Value Reference Range Interpretation Comments Basophils (test code = 0.8 See_Comment [Aut omated message] The Basophils) system which ge nerated this result tra nsmitted reference range : <=1.0. The reference r farrah was not used to int erpret this result as normal/abnormal . [facility] MarcosEynlttuJAXGTCPNUL2244-80-89 08:07:00 Test Item Value Reference Range Interpretation Comments Monocytes (test code = Monocytes) 6.7 2.0-12.0 [facility] MarcosZhclbgqJQNRZDJLZJ3171-31-83 08:07:00 Test Item Value Reference Range Interpretation Comments Eosinophils (test code = 2.7 See_Comment [A utomated message] The Eosinophils) system which ge nerated this result tra nsmitted reference range : <=4.0. The reference r farrah was not used to int erpret this result as normal/abnormal . [facility] MarcosFxantyfSQIBHMGUCM0164-02-53 08:07:00 Test Item Value Reference Range Interpretation Comments Segs (test code = Segs) 51.9 45.0-75.0 [facility] MarcosQtktgekYGFQDZBMRB1663-30-74 08:07:00 Test Item Value Reference Range Interpretation Comments Lymphocytes (test code = Lymphocytes) 37.9 20.0-40.0 [facility] MarcosNacbjleIJFKVPJFWI3009-72-70 08:07:00 Test Item Value Reference Range Interpretation Comments MCH (test code = MCH) 26.7 pg 27.0-31.0 [facility] MarcosPysmwpdGXWFUGDVCT1373-02-75 08:07:00 Test Item Value Reference Range Interpretation Comments MCV (test code = MCV) 80.7 80.0-98.0 [facility] MarcosLwvouutXZWPQKWOEE0927-79-46 08:07:00 Test Item Value Reference Range Interpretation Comments Hct (test code = Hct) 36.6 36.0-48.0 [facility] MarcosOvhksqsSPBNXENZUC8256-06-28 08:07:00 Test Item Value Reference Range Interpretation Comments Hgb (test code = Hgb) 12.1 12.0-16.0 [facility] MarcosKbazqmuMMUCNVUSZU4796-23-46 08:07:00 Test Item Value Reference Range Interpretation Comments WBC (test code = WBC) 7.8 3.7-10.4 [facility] CampusUbgajpbOIGVITYKFM0993-05-81 08:07:00 Test Item Value Reference Range Interpretation Comments RBC (test code = RBC) 4.53 4.20-5.40 [facility] ZdkjequTCFCIPOASE1379-54-60 08:07:00 Test Item Value Reference Range Interpretation Comments Platelet (test code = Platelet) 228 133-450 [facility] RqlzwmqIZYXCRMRFP0271-94-97 08:07:00 Test Item Value Reference Range Interpretation Comments MPV (test code = MPV) 9.0 7.4-10.4 [facility] AvcwbogMXNOBVBYYW3831-66-79 08:07:00 Test Item Value Reference Range Interpretation Comments MCHC (test code = MCHC) 33.1 32.0-36.0 [facility] MichiganJslrwocKIYEPUMBKM2149-24-84 08:07:00 Test Item Value Reference Range Interpretation Comments RDW (test code = RDW) 13.8 11.5-14.5 [facility] CampusannSPECIAL WYVBIKWRR4432-32-11 15:02:00 Test Item Value Reference Range Interpretation Comments Hgb A1C (test code = Hgb A1C) 13.2 [facility] LZMIOVXOQ2231-45-86 15:02:00 Test Item Value Reference Range Interpretation Comments Hgb A1C (test code = Hgb A1C) 13.2 [facility] IIZCUQMCI0915-93-65 15:02:00 Test Item Value Reference Range Interpretation Comments Hgb A1C (test code = Hgb A1C) 13.2 [facility]annDR[facility] QQZHOR2807-15-35 15:00:00 Test Item Value Reference Range Interpretation Comments UDS Note (test code = See Note (08/19/15 10:00 UDS Note) AM) [facility] HWTEGT8433-47-50 15:00:00 Test Item Value Reference Range Interpretation Comments U Phencyc Scr (test Negative *NA*(08/19/15 code = U Phencyc Scr) 10:00 AM) [facility] ZUPMYO6818-31-08 15:00:00 Test Item Value Reference Range Interpretation Comments U Cannab Scr (test Negative *NA*(08/19/15 code = U Cannab Scr) 10:00 AM) [facility] [id number] 15:00:00 Test Item Value Reference Range Interpretation Comments U Opiate Scr (test Positive *ABN*(08/19/15 code = U Opiate Scr) 10:00 AM) [facility] NBSLYS2815-39-25 15:00:00 Test Item Value Reference Range Interpretation Comments U Cocaine Scr (test Negative *NA*(08/19/15 code = U Cocaine Scr) 10:00 AM) [facility] OLDJIV3868-28-45 15:00:00 Test Item Value Reference Range Interpretation Comments U Amph Scr (test code Negative *NA*(08/19/15 = U Amph Scr) 10:00 AM) [facility] CENPKQ9455-11-33 15:00:00 Test Item Value Reference Range Interpretation Comments U Benzodia Scr (test Negative *NA*(08/19/15 code = U Benzodia Scr) 10:00 AM) [facility] [id number] 15:00:00 Test Item Value Reference Range Interpretation Comments U Fallon Scr (test code Negative *NA*(08/19/15 = U Fallon Scr) 10:00 AM) [facility] [id number] 15:00:00 Test Item Value Reference Range Interpretation Comments UA Turbidity (test code Slight *ABN*(08/19/15 = UA Turbidity) 10:00 AM) [facility] [id number] 15:00:00 Test Item Value Reference Range Interpretation Comments UA Color (test code = Light Yellow UA Color) *NA*(08/19/15 10:00 AM) [facility] [id number] 15:00:00 Test Item Value Reference Range Interpretation Comments UA Spec Grav (test code = UA Spec Grav) 1.006 [facility] [id number] 15:00:00 Test Item Value Reference Range Interpretation Comments UA Protein (test code = UA Negative mg/dL Protein) [facility] [id number] 15:00:00 Test Item Value Reference Range Interpretation Comments UA pH (test code = UA pH) 7.0 5.0-8.0 [facility] [id number] 15:00:00 Test Item Value Reference Range Interpretation Comments UA Ketones (test code = UA Negative mg/dL Ketones) [facility] [id number] 15:00:00 Test Item Value Reference Range Interpretation Comments UA Glucose (test code = UA Negative mg/dL Glucose) [facility] AND [id number] 15:00:00 Test Item Value Reference Range Interpretation Comments UA Leuk Est (test code Large *ABN*(08/19/15 = UA Leuk Est) 10:00 AM) [facility] AND [id number] 15:00:00 Test Item Value Reference Range Interpretation Comments UA Nitrite (test code Positive *ABN*(08/19/15 = UA Nitrite) 10:00 AM) [facility] AND [id number] 15:00:00 Test Item Value Reference Range Interpretation Comments UA Blood (test code = Negative (08/19/15 10:00 UA Blood) AM) [facility] AND [id number] 15:00:00 Test Item Value Reference Range Interpretation Comments UA Bili (test code = Negative *NA*(08/19/15 UA Bili) 10:00 AM) [facility] AND [id number] 15:00:00 Test Item Value Reference Range Interpretation Comments UA WBC (test code = 89 See_Comment [Automa jesse message] The UA WBC) system which ge nerated this result transmit jesse reference range : <=5. The reference range was not used to interpr et this result as laura l/abnormal. [facility] AND [id number] 15:00:00 Test Item Value Reference Range Interpretation Comments UA Bacteria (test code = UA Occasional /HPF Bacteria) [facility] AND [id number] 15:00:00 Test Item Value Reference Range Interpretation Comments UA RBC (test code = 1 See_Comment [Automa jesse message] The UA RBC) system which ge nerated this result transmit jesse reference range : <=2. The reference range was not used to interpr et this result as laura l/abnormal. [facility] AND [id number] 15:00:00 Test Item Value Reference Range Interpretation Comments UA Mucus (test code = UA Mucus) Few /LPF [facility] AND [id number] 15:00:00 Test Item Value Reference Range Interpretation Comments UA Sq Epi (test code = UA Sq Epi) None Seen [facility] AND [id number] 15:00:00 Test Item Value Reference Range Interpretation Comments UA Urobilinogen (test code = UA <=1.0 mg/dL 0.1-1.0 Urobilinogen) [facility] [id number] 15:00:00 Test Item Value Reference Range Interpretation Comments U Preg (test code = U Negative (08/19/15 10:00 Preg) AM) [facility] [id number] 15:00:00 Test Item Value Reference Range Interpretation Comments UDS Note (test code = See Note (08/19/15 10:00 UDS Note) AM) [facility] [id number] 15:00:00 Test Item Value Reference Range Interpretation Comments U Phencyc Scr (test Negative *NA*(08/19/15 code = U Phencyc Scr) 10:00 AM) [facility] [id number] 15:00:00 Test Item Value Reference Range Interpretation Comments U Cannab Scr (test Negative *NA*(08/19/15 code = U Cannab Scr) 10:00 AM) [facility] [id number] 15:00:00 Test Item Value Reference Range Interpretation Comments U Opiate Scr (test Positive *ABN*(08/19/15 code = U Opiate Scr) 10:00 AM) [facility] [id number] 15:00:00 Test Item Value Reference Range Interpretation Comments U Cocaine Scr (test Negative *NA*(08/19/15 code = U Cocaine Scr) 10:00 AM) [facility] [id number] 15:00:00 Test Item Value Reference Range Interpretation Comments U Amph Scr (test code Negative *NA*(08/19/15 = U Amph Scr) 10:00 AM) [facility] [id number] 15:00:00 Test Item Value Reference Range Interpretation Comments U Benzodia Scr (test Negative *NA*(08/19/15 code = U Benzodia Scr) 10:00 AM) [facility] [id number] 15:00:00 Test Item Value Reference Range Interpretation Comments U Fallon Scr (test code Negative *NA*(08/19/15 = U Fallon Scr) 10:00 AM) [facility] [id number] 15:00:00 Test Item Value Reference Range Interpretation Comments UA Turbidity (test code Slight *ABN*(08/19/15 = UA Turbidity) 10:00 AM) [facility] AND [id number] 15:00:00 Test Item Value Reference Range Interpretation Comments UA Color (test code = Light Yellow UA Color) *NA*(08/19/15 10:00 AM) [facility] AND [id number] 15:00:00 Test Item Value Reference Range Interpretation Comments UA Spec Grav (test code = UA Spec Grav) 1.006 [facility] AND [id number] 15:00:00 Test Item Value Reference Range Interpretation Comments UA Protein (test code = UA Negative mg/dL Protein) [facility] AND [id number] 15:00:00 Test Item Value Reference Range Interpretation Comments UA pH (test code = UA pH) 7.0 5.0-8.0 [facility] AND [id number] 15:00:00 Test Item Value Reference Range Interpretation Comments UA Ketones (test code = UA Negative mg/dL Ketones) [facility] AND [id number] 15:00:00 Test Item Value Reference Range Interpretation Comments UA Glucose (test code = UA Negative mg/dL Glucose) [facility] AND [id number] 15:00:00 Test Item Value Reference Range Interpretation Comments UA Leuk Est (test code Large *ABN*(08/19/15 = UA Leuk Est) 10:00 AM) [facility] AND [id number] 15:00:00 Test Item Value Reference Range Interpretation Comments UA Nitrite (test code Positive *ABN*(08/19/15 = UA Nitrite) 10:00 AM) [facility] AND [id number] 15:00:00 Test Item Value Reference Range Interpretation Comments UA Blood (test code = Negative (08/19/15 10:00 UA Blood) AM) [facility] AND [id number] 15:00:00 Test Item Value Reference Range Interpretation Comments UA Bili (test code = Negative *NA*(08/19/15 UA Bili) 10:00 AM) [facility] AND [id number] 15:00:00 Test Item Value Reference Range Interpretation Comments UA WBC (test code = 89 See_Comment [Automa jesse message] The UA WBC) system which ge nerated this result transmit jesse reference range : <=5. The reference range was not used to interpr et this result as laura l/abnormal. [facility] [id number] 15:00:00 Test Item Value Reference Range Interpretation Comments UA Bacteria (test code = UA Occasional /HPF Bacteria) [facility] [id number] 15:00:00 Test Item Value Reference Range Interpretation Comments UA RBC (test code = 1 See_Comment [Automa jesse message] The UA RBC) system which ge nerated this result transmit jesse reference range : <=2. The reference range was not used to interpr et this result as laura l/abnormal. [facility] [id number] 15:00:00 Test Item Value Reference Range Interpretation Comments UA Mucus (test code = UA Mucus) Few /LPF [facility] [id number] 15:00:00 Test Item Value Reference Range Interpretation Comments UA Sq Epi (test code = UA Sq Epi) None [facility]en [facility] [id number] 15:00:00 Test Item Value Reference Range Interpretation Comments UA Urobilinogen (test code = UA <=1.0 mg/dL 0.1-1.0 Urobilinogen) [facility] [id number] 15:00:00 Test Item Value Reference Range Interpretation Comments U Preg (test code = U Negative (08/19/15 10:00 Preg) AM) [facility] [id number] 15:00:00 Test Item Value Reference Range Interpretation Comments UDS Note (test code = See Note (08/19/15 10:00 UDS Note) AM) [facility] [id number] 15:00:00 Test Item Value Reference Range Interpretation Comments U Phencyc Scr (test Negative *NA*(08/19/15 code = U Phencyc Scr) 10:00 AM) [facility] [id number] 15:00:00 Test Item Value Reference Range Interpretation Comments U Cannab Scr (test Negative *NA*(08/19/15 code = U Cannab Scr) 10:00 AM) [facility] [id number] 15:00:00 Test Item Value Reference Range Interpretation Comments U Opiate Scr (test Positive *ABN*(08/19/15 code = U Opiate Scr) 10:00 AM) [facility] [id number] 15:00:00 Test Item Value Reference Range Interpretation Comments U Cocaine Scr (test Negative *NA*(08/19/15 code = U Cocaine Scr) 10:00 AM) [facility] [id number] 15:00:00 Test Item Value Reference Range Interpretation Comments U Amph Scr (test code Negative *NA*(08/19/15 = U Amph Scr) 10:00 AM) [facility] [id number] 15:00:00 Test Item Value Reference Range Interpretation Comments U Benzodia Scr (test Negative *NA*(08/19/15 code = U Benzodia Scr) 10:00 AM) [facility] [id number] 15:00:00 Test Item Value Reference Range Interpretation Comments U Fallon Scr (test code Negative *NA*(08/19/15 = U Fallon Scr) 10:00 AM) [facility] [id number] 15:00:00 Test Item Value Reference Range Interpretation Comments UA Turbidity (test code Slight *ABN*(08/19/15 = UA Turbidity) 10:00 AM) [facility] [id number] 15:00:00 Test Item Value Reference Range Interpretation Comments UA Color (test code = Light Yellow UA Color) *NA*(08/19/15 10:00 AM) [facility] [id number] 15:00:00 Test Item Value Reference Range Interpretation Comments UA Spec Grav (test code = UA Spec Grav) 1.006 [facility] [id number] 15:00:00 Test Item Value Reference Range Interpretation Comments UA Protein (test code = UA Negative mg/dL Protein) [facility] [id number] 15:00:00 Test Item Value Reference Range Interpretation Comments UA pH (test code = UA pH) 7.0 5.0-8.0 [facility] [id number] 15:00:00 Test Item Value Reference Range Interpretation Comments UA Ketones (test code = UA Negative mg/dL Ketones) [facility] [id number] 15:00:00 Test Item Value Reference Range Interpretation Comments UA Glucose (test code = UA Negative mg/dL Glucose) [facility] AND [id number] 15:00:00 Test Item Value Reference Range Interpretation Comments UA Leuk Est (test code Large *ABN*(08/19/15 = UA Leuk Est) 10:00 AM) [facility] AND [id number] 15:00:00 Test Item Value Reference Range Interpretation Comments UA Nitrite (test code Positive *ABN*(08/19/15 = UA Nitrite) 10:00 AM) [facility] AND [id number] 15:00:00 Test Item Value Reference Range Interpretation Comments UA Blood (test code = Negative (08/19/15 10:00 UA Blood) AM) [facility] AND [id number] 15:00:00 Test Item Value Reference Range Interpretation Comments UA Bili (test code = Negative *NA*(08/19/15 UA Bili) 10:00 AM) [facility] AND [id number] 15:00:00 Test Item Value Reference Range Interpretation Comments UA WBC (test code = 89 See_Comment [Automa jesse message] The UA WBC) system which ge nerated this result transmit jesse reference range : <=5. The reference range was not used to interpr et this result as laura l/abnormal. [facility] AND [id number] 15:00:00 Test Item Value Reference Range Interpretation Comments UA Bacteria (test code = UA Occasional /HPF Bacteria) [facility] AND [id number] 15:00:00 Test Item Value Reference Range Interpretation Comments UA RBC (test code = 1 See_Comment [Automa jesse message] The UA RBC) system which ge nerated this result transmit jesse reference range : <=2. The reference range was not used to interpr et this result as laura l/abnormal. [facility] AND [id number] 15:00:00 Test Item Value Reference Range Interpretation Comments UA Mucus (test code = UA Mucus) Few /LPF [facility] AND [id number] 15:00:00 Test Item Value Reference Range Interpretation Comments UA Sq Epi (test code = UA Sq Epi) None Seen [facility] AND [id number] 15:00:00 Test Item Value Reference Range Interpretation Comments UA Urobilinogen (test code = UA <=1.0 mg/dL 0.1-1.0 Urobilinogen) [facility] [id number] 15:00:00 Test Item Value Reference Range Interpretation Comments U Preg (test code = U Negative (08/19/15 10:00 Preg) AM) [facility]2016-05-22 13:12:00 Test Item Value Reference Range Interpretation Comments Phosphorus (test code = Phosphorus) 3.9 2.5-4.5 [facility]2016-05-22 13:12:00 Test Item Value Reference Range Interpretation Comments Magnesium Lvl (test code = Magnesium 2.0 1.8-2.4 Lvl) [facility]2016-05-22 13:12:00 Test Item Value Reference Range Interpretation Comments eGFR (test code = eGFR) 105 [facility]2016-05-22 13:12:00 Test Item Value Reference Range Interpretation Comments AST (test code = AST) 21 See_Comment [Auto mated message] The system which ge nerated this result transmit jesse reference range : <=37. The reference range was not used to interpr et this result as laura l/abnormal. [facility]2016-05-22 13:12:00 Test Item Value Reference Range Interpretation Comments ALT (test code = ALT) 25 See_Comment [Auto mated message] The system which ge nerated this result transmit jesse reference range : <=65. The reference range was not used to interpr et this result as laura l/abnormal. [facility]2016-05-22 13:12:00 Test Item Value Reference Range Interpretation Comments Bili Total (test code = Bili Total) 0.3 0.2-1.3 [facility]2016-05-22 13:12:00 Test Item Value Reference Range Interpretation Comments Alk Phos (test code = Alk Phos) 89 39-136 [facility]2016-05-22 13:12:00 Test Item Value Reference Range Interpretation Comments Albumin Lvl (test code = Albumin Lvl) 3.1 3.5-5.0 [facility]2016-05-22 13:12:00 Test Item Value Reference Range Interpretation Comments Calcium Lvl (test code = Calcium Lvl) 8.6 8.5-10.5 [facility]2016-05-22 13:12:00 Test Item Value Reference Range Interpretation Comments CO2 (test code = CO2) 26 24-32 [facility]2016-05-22 13:12:00 Test Item Value Reference Range Interpretation Comments Total Protein (test code = Total 6.7 6.4-8.4 Protein) [facility]2016-05-22 13:12:00 Test Item Value Reference Range Interpretation Comments Chloride Lvl (test code = Chloride Lvl) 105 95-109 [facility]2016-05-22 13:12:00 Test Item Value Reference Range Interpretation Comments Sodium Lvl (test code = Sodium Lvl) 139 135-145 [facility]2016-05-22 13:12:00 Test Item Value Reference Range Interpretation Comments Potassium Lvl (test code = Potassium 3.8 3.5-5.1 Lvl) [facility]2016-05-22 13:12:00 Test Item Value Reference Range Interpretation Comments Creatinine Lvl (test code = Creatinine 0.69 0.50-1.40 Lvl) [facility]2016-05-22 13:12:00 Test Item Value Reference Range Interpretation Comments BUN (test code = BUN) 8 - [facility]2016-05-22 13:12:00 Test Item Value Reference Range Interpretation Comments Glucose Lvl (test code = Glucose Lvl) 251 70-99 [facility]2016-05-22 13:12:00 Test Item Value Reference Range Interpretation Comments A/G Ratio (test code = A/G Ratio) 0.9 0.7-1.6 [facility]2016-05-22 13:12:00 Test Item Value Reference Range Interpretation Comments Globulin (test code = Globulin) 3.6 2.0-4.0 [place] [id number] 13:12:00 Test Item Value Reference Range Interpretation Comments B/C Ratio (test code = B/C Ratio) 12 - [place] [id number] 13:12:00 Test Item Value Reference Range Interpretation Comments AGAP (test code = AGAP) 11.8 10.0-20.0 [id number] 13:12:00 Test Item Value Reference Range Interpretation Comments Monocytes # (test code 0.5 See_Comment [Aut omated message] The = Monocytes #) system which generated this result tra nsmitted reference range : <=0.8. The reference r farrah was not used to int erpret this result as normal/abnormal . [id number] 13:12:00 Test Item Value Reference Range Interpretation Comments Eosinophils # (test code 0.2 See_Comment [A utomated message] The = Eosinophils #) system whic h generated this result tra nsmitted reference range : <=0.5. The reference r farrah was not used to int erpret this result as normal/abnormal . [id number] 13:12:00 Test Item Value Reference Range Interpretation Comments Lymphocytes # (test code = Lymphocytes 3.3 1.0-5.5 #) [id number] 13:12:00 Test Item Value Reference Range Interpretation Comments Basophils (test code = 0.6 See_Comment [Aut omated message] The Basophils) system which ge nerated this result tra nsmitted reference range : <=1.0. The reference r farrah was not used to int erpret this result as normal/abnormal . [facility]cosWfmcguwDGTXTRLNAQ2622-79-29 13:12:00 Test Item Value Reference Range Interpretation Comments Eosinophils (test code = 2.6 See_Comment [A utomated message] The Eosinophils) system which ge nerated this result tra nsmitted reference range : <=4.0. The reference r farrah was not used to int erpret this result as normal/abnormal . [id number] 13:12:00 Test Item Value Reference Range Interpretation Comments Segs-Bands # (test code = Segs-Bands #) 4.0 1.5-8.1 [facility]cosEhjucjqGYPJHJYNLU0116-30-23 13:12:00 Test Item Value Reference Range Interpretation Comments Monocytes (test code = Monocytes) 6.0 2.0-12.0 [id number] 13:12:00 Test Item Value Reference Range Interpretation Comments Lymphocytes (test code = Lymphocytes) 41.3 20.0-40.0 [id number] 13:12:00 Test Item Value Reference Range Interpretation Comments Segs (test code = Segs) 49.5 45.0-75.0 [facility]cosPwiydrsAFOTKXRXLI9887-82-02 13:12:00 Test Item Value Reference Range Interpretation Comments Platelet (test code = Platelet) 224 133-450 [facility]cosEpxnuetWPTAUMVIUY9702-14-46 13:12:00 Test Item Value Reference Range Interpretation Comments RDW (test code = RDW) 14.1 11.5-14.5 [id number] 13:12:00 Test Item Value Reference Range Interpretation Comments MPV (test code = MPV) 9.0 7.4-10.4 [facility]cosZtzxojsGUDMEYIDFX0761-01-12 13:12:00 Test Item Value Reference Range Interpretation Comments Hct (test code = Hct) 38.9 36.0-48.0 [facility]cosRiecmsqCKHDWYMRGU2146-80-93 13:12:00 Test Item Value Reference Range Interpretation Comments Hgb (test code = Hgb) 12.2 12.0-16.0 [facility]cosNaglsrnUHILFMXCLN1442-24-51 13:12:00 Test Item Value Reference Range Interpretation Comments MCHC (test code = MCHC) 31.3 32.0-36.0 [facility]cosBerzbeoSNLSLXOWRF7964-87-49 13:12:00 Test Item Value Reference Range Interpretation Comments MCH (test code = MCH) 25.6 pg 27.0-31.0 [facility]cosEnzbxemYUDQMNJYSG0696-17-82 13:12:00 Test Item Value Reference Range Interpretation Comments MCV (test code = MCV) 81.7 80.0-98.0 [facility]cosNrpdrepTRJPBHPARV5873-50-80 13:12:00 Test Item Value Reference Range Interpretation Comments RBC (test code = RBC) 4.76 4.20-5.40 [facility]cosSxxdpaoYISQJVOKJD7140-38-81 13:12:00 Test Item Value Reference Range Interpretation Comments WBC (test code = WBC) 8.0 3.7-10.4 [facility]2016-05-22 13:12:00 Test Item Value Reference Range Interpretation Comments Phosphorus (test code = Phosphorus) 3.9 2.5-4.5 [facility] [id number] 13:12:00 Test Item Value Reference Range Interpretation Comments Magnesium Lvl (test code = Magnesium 2.0 1.8-2.4 Lvl) [facility]2016-05-22 13:12:00 Test Item Value Reference Range Interpretation Comments eGFR (test code = eGFR) 105 [facility]2016-05-22 13:12:00 Test Item Value Reference Range Interpretation Comments AST (test code = AST) 21 See_Comment [Auto mated message] The system which ge nerated this result transmit jesse reference range : <=37. The reference range was not used to interpr et this result as laura l/abnormal. [facility]2016-05-22 13:12:00 Test Item Value Reference Range Interpretation Comments ALT (test code = ALT) 25 See_Comment [Auto mated message] The system which ge nerated this result transmit jesse reference range : <=65. The reference range was not used to interpr et this result as laura l/abnormal. [place] 127396-05-22 13:12:00 Test Item Value Reference Range Interpretation Comments Bili Total (test code = Bili Total) 0.3 0.2-1.3 [facility]2016-05-22 13:12:00 Test Item Value Reference Range Interpretation Comments Alk Phos (test code = Alk Phos) 89 39-136 [facility]2016-05-22 13:12:00 Test Item Value Reference Range Interpretation Comments Albumin Lvl (test code = Albumin Lvl) 3.1 3.5-5.0 [facility]2016-05-22 13:12:00 Test Item Value Reference Range Interpretation Comments Calcium Lvl (test code = Calcium Lvl) 8.6 8.5-10.5 [place] 127396-05-22 13:12:00 Test Item Value Reference Range Interpretation Comments CO2 (test code = CO2) 26 24-32 [facility]2016-05-22 13:12:00 Test Item Value Reference Range Interpretation Comments Total Protein (test code = Total 6.7 6.4-8.4 Protein) [facility]2016-05-22 13:12:00 Test Item Value Reference Range Interpretation Comments Chloride Lvl (test code = Chloride Lvl) 105 95-109 [place] 127396-05-22 13:12:00 Test Item Value Reference Range Interpretation Comments Sodium Lvl (test code = Sodium Lvl) 139 135-145 [place] 127396-05-22 13:12:00 Test Item Value Reference Range Interpretation Comments Potassium Lvl (test code = Potassium 3.8 3.5-5.1 Lvl) [place] 127396-05-22 13:12:00 Test Item Value Reference Range Interpretation Comments Creatinine Lvl (test code = Creatinine 0.69 0.50-1.40 Lvl) [facility]2016-05-22 13:12:00 Test Item Value Reference Range Interpretation Comments BUN (test code = BUN) 8 10-18 [place] 127396-05-22 13:12:00 Test Item Value Reference Range Interpretation Comments Glucose Lvl (test code = Glucose Lvl) 251 70-99 [place] 127396-05-22 13:12:00 Test Item Value Reference Range Interpretation Comments A/G Ratio (test code = A/G Ratio) 0.9 0.7-1.6 [place] [address]-05-22 13:12:00 Test Item Value Reference Range Interpretation Comments Globulin (test code = Globulin) 3.6 2.0-4.0 [place] 127396-05-22 13:12:00 Test Item Value Reference Range Interpretation Comments B/C Ratio (test code = B/C Ratio) 12 09-21 [place] 127396-05-22 13:12:00 Test Item Value Reference Range Interpretation Comments AGAP (test code = AGAP) 11.8 10.0-20.0 [facility]RsnusepUAENCGTHVT7127-94-59 13:12:00 Test Item Value Reference Range Interpretation Comments Monocytes # (test code 0.5 See_Comment [Aut omated message] The = Monocytes #) system which generated this result tra nsmitted reference range : <=0.8. The reference r farrah was not used to int erpret this result as normal/abnormal . [facility]cosDlijnzxCSCXUXGOGG0859-04-74 13:12:00 Test Item Value Reference Range Interpretation Comments Eosinophils # (test code 0.2 See_Comment [A utomated message] The = Eosinophils #) system whic h generated this result tra nsmitted reference range : <=0.5. The reference r farrah was not used to int erpret this result as normal/abnormal . [facility]cosBhtwqjaKRNGUQAIZF9207-63-78 13:12:00 Test Item Value Reference Range Interpretation Comments Lymphocytes # (test code = Lymphocytes 3.3 1.0-5.5 #) [facility]cosLknbtdjMHCBZQWIIL1203-74-69 13:12:00 Test Item Value Reference Range Interpretation Comments Basophils (test code = 0.6 See_Comment [Aut omated message] The Basophils) system which ge nerated this result tra nsmitted reference range : <=1.0. The reference r farrah was not used to int erpret this result as normal/abnormal . [facility]cosDpujzmsFZVPHMLTVJ0962-31-28 13:12:00 Test Item Value Reference Range Interpretation Comments Eosinophils (test code = 2.6 See_Comment [A utomated message] The Eosinophils) system which ge nerated this result tra nsmitted reference range : <=4.0. The reference r farrah was not used to int erpret this result as normal/abnormal . [facility]cosHgdldwrFWKXKQSLTD1156-92-67 13:12:00 Test Item Value Reference Range Interpretation Comments Segs-Bands # (test code = Segs-Bands #) 4.0 1.5-8.1 [facility]cosIgaohouJNSPUBWCJM9361-13-87 13:12:00 Test Item Value Reference Range Interpretation Comments Monocytes (test code = Monocytes) 6.0 2.0-12.0 [facility]cosCllucynVDCGLJKCEP4062-03-88 13:12:00 Test Item Value Reference Range Interpretation Comments Lymphocytes (test code = Lymphocytes) 41.3 20.0-40.0 [facility]cosMnrpfimOUWDLOEPYY7494-43-07 13:12:00 Test Item Value Reference Range Interpretation Comments Segs (test code = Segs) 49.5 45.0-75.0 [facility]cosKueowulKEABRMMLIH2040-31-40 13:12:00 Test Item Value Reference Range Interpretation Comments Platelet (test code = Platelet) 224 133-450 [facility]cosDaaaeibBUKBZZYWCS3449-22-51 13:12:00 Test Item Value Reference Range Interpretation Comments RDW (test code = RDW) 14.1 11.5-14.5 [facility]cosJuqaonyZSWQHYGRMV7694-89-28 13:12:00 Test Item Value Reference Range Interpretation Comments MPV (test code = MPV) 9.0 7.4-10.4 [facility]cosMzkekeiZCICWYLMMK6320-39-65 13:12:00 Test Item Value Reference Range Interpretation Comments Hct (test code = Hct) 38.9 36.0-48.0 [facility]cosHbhrvabANWCBFBMIH5011-44-51 13:12:00 Test Item Value Reference Range Interpretation Comments Hgb (test code = Hgb) 12.2 12.0-16.0 [facility]cosNisxwqwKPQKOSIBKO3893-64-16 13:12:00 Test Item Value Reference Range Interpretation Comments MCHC (test code = MCHC) 31.3 32.0-36.0 [facility]cosYysixddPPXLWXMJGD0161-21-37 13:12:00 Test Item Value Reference Range Interpretation Comments MCH (test code = MCH) 25.6 pg 27.0-31.0 [facility]cosPlbrevhGSVNXSLCDG3763-82-29 13:12:00 Test Item Value Reference Range Interpretation Comments MCV (test code = MCV) 81.7 80.0-98.0 [facility]cosRkumonhIXFGJTUROA4049-16-86 13:12:00 Test Item Value Reference Range Interpretation Comments RBC (test code = RBC) 4.76 4.20-5.40 [facility]cosJxtsowzOTJFQLHUMQ9274-78-83 13:12:00 Test Item Value Reference Range Interpretation Comments WBC (test code = WBC) 8.0 3.7-10.4 [facility]2016-05-22 13:12:00 Test Item Value Reference Range Interpretation Comments Phosphorus (test code = Phosphorus) 3.9 2.5-4.5 [facility]2016-05-22 13:12:00 Test Item Value Reference Range Interpretation Comments Magnesium Lvl (test code = Magnesium 2.0 1.8-2.4 Lvl) [facility]2016-05-22 13:12:00 Test Item Value Reference Range Interpretation Comments eGFR (test code = eGFR) 105 [facility]2016-05-22 13:12:00 Test Item Value Reference Range Interpretation Comments AST (test code = AST) 21 See_Comment [Auto mated message] The system which ge nerated this result transmit jesse reference range : <=37. The reference range was not used to interpr et this result as laura l/abnormal. [facility]2016-05-22 13:12:00 Test Item Value Reference Range Interpretation Comments ALT (test code = ALT) 25 See_Comment [Auto mated message] The system which ge nerated this result transmit jesse reference range : <=65. The reference range was not used to interpr et this result as laura l/abnormal. [facility]2016-05-22 13:12:00 Test Item Value Reference Range Interpretation Comments Bili Total (test code = Bili Total) 0.3 0.2-1.3 [facility]2016-05-22 13:12:00 Test Item Value Reference Range Interpretation Comments Alk Phos (test code = Alk Phos) 89 39-136 [facility]2016-05-22 13:12:00 Test Item Value Reference Range Interpretation Comments Albumin Lvl (test code = Albumin Lvl) 3.1 3.5-5.0 [facility]2016-05-22 13:12:00 Test Item Value Reference Range Interpretation Comments Calcium Lvl (test code = Calcium Lvl) 8.6 8.5-10.5 [facility]2016-05-22 13:12:00 Test Item Value Reference Range Interpretation Comments CO2 (test code = CO2) 26 24-32 [facility]2016-05-22 13:12:00 Test Item Value Reference Range Interpretation Comments Total Protein (test code = Total 6.7 6.4-8.4 Protein) [facility]2016-05-22 13:12:00 Test Item Value Reference Range Interpretation Comments Chloride Lvl (test code = Chloride Lvl) 105 95-109 [facility]2016-05-22 13:12:00 Test Item Value Reference Range Interpretation Comments Sodium Lvl (test code = Sodium Lvl) 139 135-145 [facility]2016-05-22 13:12:00 Test Item Value Reference Range Interpretation Comments Potassium Lvl (test code = Potassium 3.8 3.5-5.1 Lvl) [facility]2016-05-22 13:12:00 Test Item Value Reference Range Interpretation Comments Creatinine Lvl (test code = Creatinine 0.69 0.50-1.40 Lvl) [facility]2016-05-22 13:12:00 Test Item Value Reference Range Interpretation Comments BUN (test code = BUN) 8 - [facility]2016-05-22 13:12:00 Test Item Value Reference Range Interpretation Comments Glucose Lvl (test code = Glucose Lvl) 251 70-99 [facility]2016-05-22 13:12:00 Test Item Value Reference Range Interpretation Comments A/G Ratio (test code = A/G Ratio) 0.9 0.7-1.6 [facility]2016-05-22 13:12:00 Test Item Value Reference Range Interpretation Comments Globulin (test code = Globulin) 3.6 2.0-4.0 [facility]2016-05-22 13:12:00 Test Item Value Reference Range Interpretation Comments B/C Ratio (test code = B/C Ratio) 12 - [facility]2016-05-22 13:12:00 Test Item Value Reference Range Interpretation Comments AGAP (test code = AGAP) 11.8 10.0-20.0 [facility]cosFowxibxFRRCJSSMMG6710-48-72 13:12:00 Test Item Value Reference Range Interpretation Comments Monocytes # (test code 0.5 See_Comment [Aut omated message] The = Monocytes #) system which generated this result tra nsmitted reference range : <=0.8. The reference r farrah was not used to int erpret this result as normal/abnormal . [facility]cosLijpzyaYPZJMBCFAI2850-12-54 13:12:00 Test Item Value Reference Range Interpretation Comments Eosinophils # (test code 0.2 See_Comment [A utomated message] The = Eosinophils #) system whic h generated this result tra nsmitted reference range : <=0.5. The reference r farrah was not used to int erpret this result as normal/abnormal . [facility]cosQastppeGRFWAOIZNF9449-14-50 13:12:00 Test Item Value Reference Range Interpretation Comments Lymphocytes # (test code = Lymphocytes 3.3 1.0-5.5 #) [facility]cosSceaoefUOSJKGLAKP0794-68-94 13:12:00 Test Item Value Reference Range Interpretation Comments Basophils (test code = 0.6 See_Comment [Aut omated message] The Basophils) system which ge nerated this result tra nsmitted reference range : <=1.0. The reference r farrah was not used to int erpret this result as normal/abnormal . [facility]cosNgwihafNMABLKOWUI1811-13-64 13:12:00 Test Item Value Reference Range Interpretation Comments Eosinophils (test code = 2.6 See_Comment [A utomated message] The Eosinophils) system which ge nerated this result tra nsmitted reference range : <=4.0. The reference r farrah was not used to int erpret this result as normal/abnormal . [facility]cosJxggdmpQBTDYBNMHR3236-31-26 13:12:00 Test Item Value Reference Range Interpretation Comments Segs-Bands # (test code = Segs-Bands #) 4.0 1.5-8.1 [facility]cosBcjecmkVQEYZADSOA0544-61-80 13:12:00 Test Item Value Reference Range Interpretation Comments Monocytes (test code = Monocytes) 6.0 2.0-12.0 [facility]cosWdaqzqgXOMHKYCDND5919-16-46 13:12:00 Test Item Value Reference Range Interpretation Comments Lymphocytes (test code = Lymphocytes) 41.3 20.0-40.0 [facility]cosTuxycmnCJGSUBVSTY7389-12-97 13:12:00 Test Item Value Reference Range Interpretation Comments Segs (test code = Segs) 49.5 45.0-75.0 [facility]cosOiindyqKDGWRNUEXK5852-76-92 13:12:00 Test Item Value Reference Range Interpretation Comments Platelet (test code = Platelet) 224 133-450 [facility] MarcosHxrcvppAXCFWNEHAD1601-25-98 13:12:00 Test Item Value Reference Range Interpretation Comments RDW (test code = RDW) 14.1 11.5-14.5 [facility]cosTjsayrpBZBZBWIYUK2006-99-12 13:12:00 Test Item Value Reference Range Interpretation Comments MPV (test code = MPV) 9.0 7.4-10.4 [facility]cosNlnyycrQUHAIAIFMH0079-33-13 13:12:00 Test Item Value Reference Range Interpretation Comments Hct (test code = Hct) 38.9 36.0-48.0 [facility]cosMjmhndqCYXFEEGWIU3692-03-05 13:12:00 Test Item Value Reference Range Interpretation Comments Hgb (test code = Hgb) 12.2 12.0-16.0 [facility]cosFvollnrLCASCIVGLV7311-03-94 13:12:00 Test Item Value Reference Range Interpretation Comments MCHC (test code = MCHC) 31.3 32.0-36.0 [facility]cosDqzwadrRKGRXSCXGT5602-30-20 13:12:00 Test Item Value Reference Range Interpretation Comments MCH (test code = MCH) 25.6 pg 27.0-31.0 [facility]cosUyneehuXOPQYHHRWW6870-18-86 13:12:00 Test Item Value Reference Range Interpretation Comments MCV (test code = MCV) 81.7 80.0-98.0 [place] [id number] 13:12:00 Test Item Value Reference Range Interpretation Comments RBC (test code = RBC) 4.76 4.20-5.40 [facility]cosUskwsfpDFNDZUUZVT5632-31-28 13:12:00 Test Item Value Reference Range Interpretation Comments WBC (test code = WBC) 8.0 3.7-10.4 [facility]2016-05-22 12:25:00 Test Item Value Reference Range Interpretation Comments Creatinine Lvl (test code = Creatinine 0.72 0.50-1.40 Lvl) [facility]2016-05-22 12:25:00 Test Item Value Reference Range Interpretation Comments eGFR (test code = eGFR) 100 [facility]cosKrzvzqvOYMROTHWBP8081-14-31 12:25:00 Test Item Value Reference Range Interpretation Comments PTT (test code = PTT) 18.5 s 22.9-35.8 [facility]cosBlrjyxeYMPGLQYPOZ1652-83-95 12:25:00 Test Item Value Reference Range Interpretation Comments Platelet (test code = Platelet) 219 133-450 [facility]2016-05-22 12:25:00 Test Item Value Reference Range Interpretation Comments Creatinine Lvl (test code = Creatinine 0.72 0.50-1.40 Lvl) [facility]2016-05-22 12:25:00 Test Item Value Reference Range Interpretation Comments eGFR (test code = eGFR) 100 [place] [address]-05-22 12:25:00 Test Item Value Reference Range Interpretation Comments PTT (test code = PTT) 18.5 s 22.9-35.8 [place] [address]-05-22 12:25:00 Test Item Value Reference Range Interpretation Comments Platelet (test code = Platelet) 219 133-450 [facility]2016-05-22 12:25:00 Test Item Value Reference Range Interpretation Comments Creatinine Lvl (test code = Creatinine 0.72 0.50-1.40 Lvl) [id number] 12:25:00 Test Item Value Reference Range Interpretation Comments eGFR (test code = eGFR) 100 [facility]ScocxquRLEZFMYVCS4599-36-65 12:25:00 Test Item Value Reference Range Interpretation Comments PTT (test code = PTT) 18.5 s 22.9-35.8 [facility]FtvpnkpUQXUIUHUCL7156-00-41 12:25:00 Test Item Value Reference Range Interpretation Comments Platelet (test code = Platelet) 219 133-450 [facility] Notes Date/Time Note Provider Source 2015-08-19 13:50:00-00:00 Exam: MRI brain without contrast. [facility] INDICATION: Blurry vision, pain. COMPARISON: None. TECHNIQUE: Multiecho multipl ezequiel MR sequences of the brain are obtained without gadolinium. Discussion: No restricted di ffusion. No intracranial hemorrhage. No mass effect. Ventricles are normal in size. A few nonspecific scattered foci of FLAIR hyperintense signal in the deep white matter may be related to a history of migraine headache. Polypoid mucosal thickening in the maxillary sinuses bilaterally. Mucosal thickening in the sphenoid sinuses bilaterally. Mastoid air cells are clear. IMPRESSION: No acute intracranial abnormality. 2015-08-19 13:50:00-00:00 Exam: MRI brain without contrast. [facility] INDICATION: Blurry vision, pain. COMPARISON: None. TECHNIQUE: Multiecho multipl ezequiel MR sequences of the brain are obtained without gadolinium. Discussion: No restricted di ffusion. No intracranial hemorrhage. No mass effect. Ventricles are normal in size. A few nonspecific scattered foci of FLAIR hyperintense signal in the deep white matter may be related to a history of migraine headache. Polypoid mucosal thickening in the maxillary sinuses bilaterally. Mucosal thickening in the sphenoid sinuses bilaterally. Mastoid air cells are clear.
[2022-11-12] MEDS ORDERED: KETOROLAC 30 MG/ML INJ ONE (19:55)
[2022-11-12] MEDS ORDERED: NA CHLORIDE 0.9% 1,000 ML ONE (19:55)
[2022-11-12] MEDS ORDERED: ONDANSETRON 4 MG/2 ML VIAL ONE (19:55)
[2022-11-12] MEDS ORDERED: FAMOTIDINE 20 MG/2 ML VIAL IV ONE (19:55)
[2022-11-12 20:33] LABS: Absolute Lymphocytes (CBC) 3.1 K/uL (0.7-4.9); Hematocrit 40.9 % (36.0-45.0); MCV 80.3 fL (80-100); MPV 9.3 fL (7.6-11.3); Platelets 250 thou/uL (152-406); RBC Red Blood Cell Count 5.09 M/uL (3.86-4.86)
[2022-11-12 20:37] LABS: Albumin 3.7 g/dL (3.4-5.0); Bilirubin Total 0.3 mg/dL (0.2-1.0); Potassium 3.8 mEq/L (3.5-5.1); Protein, Total 8.2 g/dL (6.4-8.2)
--- NOTE | 2022-11-12 21:28 | RAD REPORT ---
EXAM DESCRIPTION: CTAbdomen Pelvis W Contrast - 11/12/2022 9:18 pm CLINICAL HISTORY: Abdominal pain. ABD PAIN COMPARISON: <Comparisons> TECHNIQUE: Biphasic CT imaging of the abdomen and pelvis was performed with 100 ml non-ionic IV cont rast. All CT scans are performed using dose optimization technique as appropriate and may include automated exposure control or mA/KV adjustment according to patient size. FINDINGS: The lung bases are clear. The liver is mildly enlarged in size with diffuse fatty liver. The spleen, pancreas, adrenal glands a nd kidneys are within normal limits. Cholecystectomy clips. No bowel obstruction, free air, free fluid or abscess. Nonvisualized appendix. Moderate stool is pres ent throughout the colon. No evidence of significant lymphadenopathy. No suspicious bony findings. IMPRESSION: No acute intra-abdominal or pelvic finding.
--- NOTE | 2022-11-12 21:40 | ER ---
Nurse's Notes [facility] Name: Elly Clarke Age: 52 yrs Sex: Female : 1970 Arrival Date: 11/12/2022 Time: 16:42 Bed 5 Private MD: Diagnosis: Upper abdominal pain, unspecified Presentation: 11/12 17:13 Chief complaint: Patient states: "I think my pancreas is acting up." Pt reports LUQ cm10 abdominal pain, nausea and vomiting X3 days. Coronavirus screen: Vaccine status: Patient reports receiving the 1st dose of the Covid vaccine. Ebola Screen: Patient denies travel to an Ebola-affected area in the 21 days before illness onset. No symptoms or risks identified at this time. Initial Sepsis Screen: Does the patient meet any 2 criteria? No. Patient's initial sepsis screen is negative. Does the patient have a suspected source of infection? No. Patient's initial sepsis screen is negative. Risk Assessment: Do you want to hurt yourself or someone else? Patient reports no desire to harm self or others. Onset of symptoms was November 12, 2022. 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: 17:15 LMP N/A - Hysterectomy cm10 Historical: - Allergies: 17:12 Claritin (insomnia); cm10 17:12 Compazine (Seizures); cm10 17:12 Demerol (HEART RACING); cm10 17:12 (Hives); cm10 17:12 Morphine (RACING HEART); cm10 - PMHx: 17:12 Anxiety; spinal stenosis; insomnia; Chronic pain; Diabetes - NIDDM; Arthritis; cm10 Gastroparesis; Chrohns; Dramatic migraine events; Migraines; Pancreatitis; Hypertension; High Cholesterol; - PSHx: 17:12 Cholecystectomy; Tonsillectomy; Total abdominal hysterectomy; tumor removed from cm10 septum; Knee sx x 2; mass removed from breast; - Immunization history:: Client reports receiving the 1st dose of the Covid vaccine. - Social history:: Smoking status: Patient denies any tobacco usage or history of. Screenin:50 [facility] ED Fall Risk Assessment (Adult) Score/Fall Risk Level 0 - 2 = Low Risk nj1 Oriented to surroundings, Maintained a safe environment, Hourly rounding (assess needs \\T\\ fall precautionary measures) done. Abuse screen: Denies threats or abuse. Denies injuries from another. Nutritional screening: No deficits noted. Tuberculosis screening: No symptoms or risk factors identified. Assessment: 19:50 General: Appears in no apparent distress. comfortable, Behavior is calm, cooperative, nj1 appropriate for age. Pain: Complains of pain in abdomen Pain currently is 8 out of 10 on a pain scale. 19:50 Neuro: Level of Consciousness is awake, alert, obeys commands, Oriented to person, nj1 place, time, situation. Cardiovascular: Patient's skin is warm and dry. Respiratory: Airway is patent Respiratory effort is even, unlabored. GI: Reports nausea. 22:00 Reassessment: Patient and/or family updated on plan of care and expected duration. Pain mb9 level reassessed. Patient is alert, oriented x 3, equal unlabored respirations, skin warm/dry/pink. Patient states feeling better. Patient states symptoms have improved. Vital Signs: 17:13 BP 142 / 96; Pulse 109; Resp 18; Temp 97.2; Pulse Ox 100% ; Weight 109.77 kg; Height 5 cm10 ft. 7 in. ; Pain 8/10; 20:39 BP 159 / 78; Pulse 55; Resp 18; Pulse Ox 100% on R/A; mb9 22:17 BP 143 / 79; Pulse 62; Resp 18; Pulse Ox 100% on R/A; mb9 17:13 Body Mass Index 37.90 (109.77 kg, 170.18 cm) cm10 17:13 Pain Scale: Adult cm10 ED Course: 16:45 Patient arrived in ED. rg4 16:52 Cookie Walker FNP-C is [facility]. kb 16:54 Jason Patel MD is Attending Physician. kb 17:14 Triage completed. cm10 17:15 Arm band placed on Patient placed in waiting room. cm10 19:50 Patient has correct armband on for positive identification. Bed in low position. Call nj1 light in reach. Provided Education on: fall precautions, call light. 19:50 Missed attempt(s): 22 gauge Bleeding controlled, band aid applied, catheter tip intact. nj1 20:00 Inserted saline lock: 20 gauge in left antecubital area, using aseptic technique. nj1 ,using aseptic technique. Ultrasound guided. Catheter tip well visualized within vasculature during placement. Blood collected. 20:35 Angelika Lowe, RN is Primary Nurse. mb9 20:39 No provider procedures requiring assistance completed. mb9 21:20 CT Abd/Pelvis - IV Contrast Only In Process Unspecified. EDMS 22:20 IV discontinued, intact, bleeding controlled, No redness/swelling at site. Pressure mb9 dressing applied. Administered Medications: 20:00 Drug: NS 0.9% IV 1000 ml Route: IV; Rate: 1 bolus; Site: left antecubital; nj1 22:16 Follow up: IV Status: Completed infusion; IV Intake: 1000ml lg3 20:00 Drug: TORadol - Ketorolac IVP 15 mg Route: IVP; Site: left antecubital; nj1 22:17 Follow up: Response: No adverse reaction lg3 20:00 Drug: Ondansetron IVP 4 mg Route: IVP; Site: left antecubital; nj1 22:16 Follow up: Response: No adverse reaction lg3 20:02 Drug: Famotidine IVP 20 mg Route: IVP; Site: left antecubital; nj1 22:16 Follow up: Response: No adverse reaction lg3 22:15 Drug: Dicyclomine PO 20 mg Route: PO; lg3 22:15 Follow up: Response: No adverse reaction lg3 Medication: 22:20 VIS not applicable for this client. mb9 Intake: 22:16 IV: 1000ml; Total: 1000ml. lg3 Outcome: 21:38 Discharge ordered by . kb 22:20 Discharged to home ambulatory. mb9 22:20 Condition: stable 22:20 Discharge instructions given to patient, Instructed on discharge instructions, follow up and referral plans. Demonstrated understanding of instructions, follow-up care, medications, Prescriptions given X 2. 22:21 Patient left the ED. mb9 Signatures: Dispatcher [employer] EDMS Cookie Walker, JAQUAN-[employer] ASSOCIATE DESIGNER-Lety Peralta rg4 Liz Rosas RN RN lg3 Angelika Lowe, RN RN mb9 Shelley Alicea RN RN nj1 Luciana Boykin RN RN cm10 Corrections: (The following items were deleted from the chart) 20:23 20:19 Inserted saline lock: 20 gauge in left antecubital area, using aseptic technique. nj1 ,using aseptic technique. Ultrasound guided. Catheter tip well visualized within vasculature during placement. Blood collected. nj1
--- NOTE | 2022-11-12 21:40 | EDPHYS ---
Physician Documentation [facility] Name: Elly Clarke Age: 52 yrs Sex: Female : 1970 Arrival Date: 11/12/2022 Time: 16:42 Bed 5 Private MD: ED Physician Jason Patel HPI: 11/12 17:31 This 52 yrs old Female presents to ER via Ambulatory with complaints of Abdominal Pain, kb Nausea. 17:31 The patient presents with abdominal pain in the left upper quadrant. Onset: The kb symptoms/episode began/occurred 3 day(s) ago. The symptoms do not radiate. Associated signs and symptoms: Pertinent positives: nausea, vomiting, and diarrhea, Pertinent negatives: fever. The symptoms are described as constant. Modifying factors: The symptoms are alleviated by nothing, the symptoms are aggravated by nothing. Severity of pain: At its worst the pain was moderate in the emergency department the pain is unchanged. The patient has not experienced similar symptoms in the past. The patient has not recently seen a physician. LATHE TENDER: 17:15 LMP N/A - Hysterectomy cm10 Historical: - Allergies: 17:12 Claritin (insomnia); cm10 17:12 Compazine (Seizures); cm10 17:12 Demerol (HEART RACING); cm10 17:12 (Hives); cm10 17:12 Morphine (RACING HEART); cm10 - PMHx: 17:12 Anxiety; spinal stenosis; insomnia; Chronic pain; Diabetes - NIDDM; Arthritis; cm10 Gastroparesis; Chrohns; Dramatic migraine events; Migraines; Pancreatitis; Hypertension; High Cholesterol; - PSHx: 17:12 Cholecystectomy; Tonsillectomy; Total abdominal hysterectomy; tumor removed from cm10 septum; Knee sx x 2; mass removed from breast; - Immunization history:: Client reports receiving the 1st dose of the Covid vaccine. - Social history:: Smoking status: Patient denies any tobacco usage or history of. ROS: 17:31 Constitutional: Negative for fever, chills, and weight loss. kb 17:31 Abdomen/GI: Positive for abdominal pain, nausea, vomiting, and diarrhea, Negative for constipation. 17:31 All other systems are negative. Exam: 17:31 Constitutional: This is a well developed, well nourished patient who is awake, alert, kb and in no acute distress. Head/Face: Normocephalic, atraumatic. ENT: Moist Mucous membranes Cardiovascular: Regular rate and rhythm with a normal S1 and S2. No gallops, murmurs, or rubs. No pulse deficits. Respiratory: Respirations even and unlabored. No increased work of breathing. Talking in full sentences Skin: Warm, dry with normal turgor. Normal color. MS/ Extremity: Pulses equal, no cyanosis. Neurovascular intact. Full, normal range of motion. Neuro: Awake and alert, GCS 15, oriented to person, place, time, and situation. Moves all extremities. Normal gait. 17:31 Abdomen/GI: Inspection: abdomen appears normal, Bowel sounds: normal, Palpation: soft, in all quadrants, moderate abdominal tenderness, in the left upper quadrant. Vital Signs: 17:13 BP 142 / 96; Pulse 109; Resp 18; Temp 97.2; Pulse Ox 100% ; Weight 109.77 kg; Height 5 cm10 ft. 7 in. ; Pain 8/10; 20:39 BP 159 / 78; Pulse 55; Resp 18; Pulse Ox 100% on R/A; mb9 22:17 BP 143 / 79; Pulse 62; Resp 18; Pulse Ox 100% on R/A; mb9 17:13 Body Mass Index 37.90 (109.77 kg, 170.18 cm) cm10 17:13 Pain Scale: Adult cm10 MDM: 17:04 Patient medically screened. kb 17:33 Differential diagnosis: cholecystitis, Cholelithiasis, gastritis, non-specific abd kb pain, pancreatitis. Data reviewed: vital signs, nurses notes. 21:37 Counseling: I had a detailed discussion with the patient and/or guardian regarding the kb historical points, exam findings, and any diagnostic results supporting the discharge/admit diagnosis, lab results, radiology results, the need for outpatient follow up, a skin washer, to return to the emergency department if symptoms worsen or persist or if there are any questions or concerns that arise at home. 11/12 17:05 Order name: CBC with Diff; Complete Time: 20:37 kb 11/12 17:05 Order name: CMP; Complete Time: 20:38 kb 11/12 17:05 Order name: Lipase; Complete Time: 20:38 kb 11/12 17:05 Order name: CT Abd/Pelvis - IV Contrast Only; Complete Time: 21:33 kb 11/12 17:05 Order name: IV Saline Lock; Complete Time: 20:12 kb 11/12 17:05 Order name: Labs collected and sent; Complete Time: 20:12 kb Administered Medications: 20:00 Drug: NS 0.9% IV 1000 ml Route: IV; Rate: 1 bolus; Site: left antecubital; nj1 22:16 Follow up: IV Status: Completed infusion; IV Intake: 1000ml lg3 20:00 Drug: TORadol - Ketorolac IVP 15 mg Route: IVP; Site: left antecubital; nj1 22:17 Follow up: Response: No adverse reaction lg3 20:00 Drug: Ondansetron IVP 4 mg Route: IVP; Site: left antecubital; nj1 22:16 Follow up: Response: No adverse reaction lg3 20:02 Drug: Famotidine IVP 20 mg Route: IVP; Site: left antecubital; nj1 22:16 Follow up: Response: No adverse reaction lg3 22:15 Drug: Dicyclomine PO 20 mg Route: PO; lg3 22:15 Follow up: Response: No adverse reaction lg3 Disposition: 11/13 10:01 Co-signature as Attending Physician, Jason Patel MD I reviewed the patient's care rt provided by the Advanced Practice Provider and agree with the diagnosis and treatment plan. Disposition Summary: 11/12/22 21:38 Discharge Ordered Location: Home kb Condition: Stable kb Diagnosis - Upper abdominal pain, unspecified kb Followup: kb - With: Emergency Department - When: As needed - Reason: Worsening of condition Followup: kb - With: Private Physician - When: 2 - 3 days - Reason: Recheck today's complaints, Continuance of care, Re-evaluation by your physician Discharge Instructions: - Discharge Summary Sheet kb - Abdominal Pain, Adult, [id number] kb Forms: - Medication Reconciliation Form kb - Thank You Letter kb - Antibiotic Education kb - Prescription Opioid Use kb - Patient Portal Instructions kb - Leadership Thank You Letter kb Prescriptions: - Zofran 4 mg Oral Tablet - take 1 tablet by ORAL route every 6 hours As needed; 12 tablet; Refills: 0, kb Product Selection Permitted - dicyclomine 20 mg Oral Tablet - take 1 tablet by ORAL route 4 times per day As needed; 20 tablet; Refills: 0, kb Product Selection Permitted Signatures: Dispatcher [employer] Cookie Lockhart, HOT DIMPLING MACHINE OPERATOR-C HOT DIMPLING MACHINE OPERATOR-CkLiz Velasco, RN RN lg3 Jason Patel MD MD rt Shelley Alicea RN RN nj1 Lcuiana Boykin RN RN cm10
[2022-11-12] MEDS ORDERED: DICYCLOMINE HCL 10 MG CAP ONE (22:20)
[2022-11-12 23:27] VITALS: TEMP 97.2; O2SAT 100
[2022-11-12 23:30] VITALS: BP 143/79
== END 2022-11-12 22:21 | disposition home or self-care (01) ==
LOC: ER 16:42
DX: R10.12 Left upper quadrant pain (principal); R11.2 Nausea with vomiting, unspecified; I10 Essential (primary) hypertension; Z88.1 Allergy status to other antibiotic agents; Z88.5 Allergy status to narcotic agent; Z88.8 Allergy status to other drugs, medicaments and biological substances
CPT/HCPCS: 85025; 36415; 83690; 80053; 74177; Q9967; J2405; J7030

== ENCOUNTER → 2023-05-16 | Emergency (ER) | payer OTHER ==
[~2023-05-16] MED LIST: CIPROFLOXACIN 400mg IV 400 MG/200 ML BAG IV ONE; HYDROMORPHONE HCL 1 MG/ML INJ ONE; METHYLPREDNISOLONE 125 MG INJ ONE; METRONIDAZOLE 500mg IVPB 500 MG/100 ML BAG IV ONE; NA CHLORIDE 0.9% 1,000 ML ONE; ONDANSETRON 4 MG/2 ML VIAL ONE; PANTOPRAZOLE 40 MG INJ ONE; POTASSIUM 25 MEQ EFFERV TAB ONE; predniSONE 20 MG TAB ONE
--- NOTE | 2023-05-16 16:03 | RAD REPORT ---
EXAM DESCRIPTION: RAD - Chest Single View - 05/16/2023 3:52 pm CLINICAL HISTORY: ABDOMINAL DISTENTION COMPARISON: Chest Single View dated 07/21/2020; Chest Single View dated 07/17/2020; Chest Single View dated 07/11/2020; Chest Single View dated 12/19/2019 FINDINGS: Lines: None. Lungs: Hazy opacities in the lateral left lung base. Pleural: No significant pleural effusions or pneumothorax. Cardiac: The heart size is within normal limits. Mediastinum: Within normal limits. Bones: No acute fractures. Other: None IMPRESSION: Possible early or developing pneumonia in the lateral left lung base. A CT of the abdome n and pelvis is pending. This portion of the long should be visible on that exam.
[2023-05-16 16:10] LABS: Absolute Lymphocytes (CBC) 3.1 K/uL (0.7-4.9); Hematocrit 37.7 % (36.0-45.0); Lymphocytes % 38.4 % (15.3-44.8); MCV 81.5 fL (80-100); MPV 8.8 fL (7.6-11.3); Platelets 228 thou/uL (152-406); RBC Red Blood Cell Count 4.63 M/uL (3.86-4.86)
[2023-05-16 16:32] LABS: Protime INR 1.08
[2023-05-16 16:33] LABS: Specific Gravity < 1.005 (1.005-1.030); Urine Bacteria <20 /HPF (<20); Urine Bilirubin NEGATIVE (Negative); Urine Blood Negative (Negative); Urine Clarity Turbid (Clear); Urine Color Colorless (Yellow); Urine Glucose NEGATIVE (Negative); Urine Protein NEGATIVE (Negative); Urine RBC <5 /HPF (None Seen); Urine Urobilinogen Normal (Normal)
[2023-05-16 16:40] LABS: Albumin 3.2 g/dL (3.4-5.0); Bilirubin Direct 0.1 mg/dL (0-0.2); Bilirubin Indirect, Calculated 0.1 mg/dL (0.2-0.8); Bilirubin Total 0.2 mg/dL (0.2-1.0); Magnesium 1.8 mg/dL (1.6-2.4); Potassium 3.4 mEq/L (3.5-5.1); Protein, Total 7.3 g/dL (6.4-8.2); Troponin High Sensitivity 32.4 pg/mL (<58.9)
--- NOTE | 2023-05-16 17:21 | RAD REPORT ---
EXAM DESCRIPTION: CTAbdomen Pelvis W Contrast - 05/16/2023 5:03 pm CLINICAL HISTORY: ABD PAIN COMPARISON: Abdomen Pelvis W Contrast dated 11/12/2022; Abdomen Pelvis W Contrast dated ; Abdomen Pelvis W Contrast dated 10/20/2020; Abdomen Pelvis W Contrast dated 10/09/2020 TECHNIQUE: CT of the abdomen and pelvis was performed. All CT scans are performed using dose optimization technique as appropriate and may include automated exposure control or mA/KV adjustment according to patient size. FINDINGS: Lower chest: Small nonspecific pleural effusions. Small pericardial effusion. Cardiomegaly . Circumferential thickened distal esophagus could reflect esophagitis. . Liver: Hepatomegaly with steatosis. Biliary: Cholecystectomy. Prominent extrahepatic common bile duct likely related to the postcholecyst ectomy state. Stomach: No significant focal abnormality. Duodenum: No significant focal abnormality. Pancreas: No significant abnormality. Spleen: No significant abnormality. Adrenal: No suspicious lesions. Kidney/ureter: No hydronephrosis. No renal calculi. Retroperitoneum: No retroperitoneal adenopathy. Vascular: No aneurysm. Bowel: No bowel obstruction.. Diverticulosis without diverticulitis. Peritoneum: No ascites or free air. Ventral abdominal wall laxity. Bladder: Grossly unremarkable. Reproductive: Hysterectomy. Bones: No acute fracture. Shrapnel near the right hip. Other: n/a IMPRESSION: No acute intra-abdominal or pelvic finding. Incidental findings as noted above.
--- NOTE | 2023-05-16 17:48 | EDPHYS ---
Physician Documentation [facility] Name: Elly Clarke Age: 53 yrs Sex: Female : 1970 Arrival Date: 05/16/2023 Time: 14:56 Bed 4 Private MD: BARRERA Physician Kam Parker HPI: 05/16 16:48 This 53 yrs old Female presents to ER via Ambulatory with complaints of zoe Nausea/Vomiting/Diarrhea, Bloody Stools. 16:48 The patient presents to the emergency department with nausea, vomiting, diarrhea, zoe abdominal pain, of the right lower quadrant and left lower quadrant, described as constant, crampy. Onset: The symptoms/episode began/occurred 1 day(s) ago. Possible causes: unknown. Possible causes: flare up of bowel problem. The symptoms are aggravated by pressure, food , The symptoms are alleviated by nothing. Associated signs and symptoms: Pertinent positives: abdominal pain, diarrhea, nausea, vomiting. Severity of symptoms: At their worst the symptoms were moderate in the emergency department the symptoms are unchanged. The patient has experienced similar episodes in the past, multiple times. Historical: - Allergies: 15:17 Claritin (insomnia); nj1 15:17 Compazine (Seizures); nj1 15:17 Demerol (HEART RACING); nj1 15:17 (Hives); nj1 15:17 Morphine (RACING HEART); nj1 - PMHx: 15:17 Anxiety; Arthritis; Chrohns; Chronic pain; Diabetes - NIDDM; Dramatic migraine events; nj1 Gastroparesis; High Cholesterol; Hypertension; insomnia; Migraines; Pancreatitis; spinal stenosis; - PSHx: 15:17 Cholecystectomy; Knee sx x 2; mass removed from breast; Tonsillectomy; Total abdominal nj1 hysterectomy; tumor removed from septum; - Immunization history:: Client reports receiving the 1st dose of the Covid vaccine. - Social history:: Smoking status: Patient denies any tobacco usage or history of. ROS: 16:50 Constitutional: Negative for fever, chills, and weight loss, Eyes: Negative for injury, zoe pain, redness, and discharge, ENT: Negative for injury, pain, and discharge, Neck: Negative for injury, pain, and swelling, Cardiovascular: Negative for chest pain, palpitations, and edema, Respiratory: Negative for shortness of breath, cough, wheezing, and pleuritic chest pain, Back: Negative for injury and pain, : Negative for injury, bleeding, discharge, and swelling, MS/Extremity: Negative for injury and deformity, Skin: Negative for injury, rash, and discoloration, Neuro: Negative for headache, weakness, numbness, tingling, and seizure, Psych: Negative for depression, anxiety, suicide ideation, homicidal ideation, and hallucinations, Allergy/Immunology: Negative for hives, rash, and allergies, Endocrine: Negative for neck swelling, polydipsia, polyuria, polyphagia, and marked weight changes, Hematologic/Lymphatic: Negative for swollen nodes, abnormal bleeding, and unusual bruising, 16:50 Abdomen/GI: Positive for abdominal pain, nausea and vomiting, diarrhea, rectal bleeding, of the right lower quadrant and left lower quadrant, Exam: 16:50 Constitutional: This is a well developed, well nourished patient who is awake, alert, zoe and in no acute distress. Head/Face: Normocephalic, atraumatic. Eyes: Pupils equal round and reactive to light, extra-ocular motions intact. Lids and lashes normal. Conjunctiva and sclera are non-icteric and not injected. Cornea within normal limits. Periorbital areas with no swelling, redness, or edema. ENT: Nares patent. No nasal discharge, no septal abnormalities noted. Tympanic membranes are normal and external auditory canals are clear. Oropharynx with no redness, swelling, or masses, exudates, or evidence of obstruction, uvula midline. Mucous membranes moist. Neck: Trachea midline, no thyromegaly or masses palpated, and no cervical lymphadenopathy. Supple, full range of motion without nuchal rigidity, or vertebral point tenderness. No Meningismus. Chest/axilla: Normal chest wall appearance and motion. Nontender with no deformity. No lesions are appreciated. Cardiovascular: Regular rate and rhythm with a normal S1 and S2. No gallops, murmurs, or rubs. Normal PMI, no JVD. No pulse deficits. Respiratory: Lungs have equal breath sounds bilaterally, clear to auscultation and percussion. No rales, rhonchi or wheezes noted. No increased work of breathing, no retractions or nasal flaring. Back: No spinal tenderness. No costovertebral tenderness. Full range of motion. Skin: Warm, dry with normal turgor. Normal color with no rashes, no lesions, and no evidence of cellulitis. MS/ Extremity: Pulses equal, no cyanosis. Neurovascular intact. Full, normal range of motion. Neuro: Awake and alert, GCS 15, oriented to person, place, time, and situation. Cranial nerves II-XII grossly intact. Motor strength 5/5 in all extremities. Sensory grossly intact. Cerebellar exam normal. Normal gait. Psych: Awake, alert, with orientation to person, place and time. Behavior, mood, and affect are within normal limits. 16:50 ECG was reviewed by the Attending Physician. 16:50 Abdomen/GI: Inspection: distension, that is moderate, obese Bowel sounds: normal, Palpation: moderate abdominal tenderness, in the right lower quadrant and left lower quadrant, Rectal exam: rectal tone normal, Stool: guaiac negative, hemorrhoid(s), are not appreciated, mass, is not appreciated, swelling, is not appreciated, tenderness, that is moderate, fecal impaction, is not appreciated, Liver: no appreciated palpable abnormalities, Hernia: not appreciated, Vital Signs: 15:17 BP 125 / 45; Pulse 104; Resp 18; Temp 98.1; Pulse Ox 98% on R/A; Weight 105.69 kg; nj1 Height 5 ft. 7 in. ; Pain 9/10; 16:21 BP 137 / 80; Pulse 96; Resp 16; Pulse Ox 97% on R/A; tl4 18:05 BP 139 / 80; Pulse 96; Resp 18 S; Temp 97.8(TE); Pulse Ox 98% on R/A; Pain 6/10; aa5 19:00 BP 160 / 98; Pulse 87; Resp 16; Pulse Ox 99% on R/A; km8 15:17 Body Mass Index 36.49 (105.69 kg, 170.18 cm) nj1 15:17 Pain Scale: Adult nj1 18:05 Pain Scale: Adult aa5 Bird Coma Score: 16:21 Eye Response: spontaneous(4). Motor Response: obeys commands(6). Verbal Response: tl4 oriented(5). Total: 15. MDM: 15:19 Patient medically screened. zoe 16:52 Differential diagnosis: Nonspecific abd pain, gastritis, pancreatitis, diverticulitis, zoe viral gastroenteritis, gastroenteritis, bowel obstruction, diverticulitis, gastritis, gastroesophageal reflux disease, Irritable bowel syndrome, Mesenteric ischemia or infarction, non-specific abd pain, pancreatitis, Peptic Ulcer Disease, Perf. Duodenal Ulcer. Data reviewed: vital signs, nurses notes, lab test result(s), EKG, radiologic studies, CT scan, plain films. Consideration of Admission/Observation Escalation of care including admission/observation considered. I considered the following discharge prescriptions or medication management in the emergency department Medications were administered in the Emergency Department. See MAR. Independent interpretation of the following test(s) in the Emergency Department EKG: See my EKG interpretation above. 05/16 15:25 Order name: Basic Metabolic Panel; Complete Time: 16:43 05/16 15:25 Order name: CBC with Diff; Complete Time: 16:43 05/16 15:25 Order name: LFT's; Complete Time: 16:43 05/16 15:25 Order name: Magnesium; Complete Time: 16:43 05/16 15:25 Order name: NT PRO-BNP; Complete Time: 16:43 05/16 15:25 Order name: PT-INR; Complete Time: 16:43 05/16 15:25 Order name: Troponin HS; Complete Time: 16:43 05/16 15:25 Order name: Lipase; Complete Time: 16:43 05/16 15:25 Order name: Urinalysis w/ reflexes; Complete Time: 16:43 05/16 15:25 Order name: XRAY Chest (1 view); Complete Time: 16:43 05/16 15:25 Order name: CT Abd/Pelvis - IV Contrast Only; Complete Time: 17:47 05/16 15:25 Order name: EKG; Complete Time: 15:26 05/16 15:25 Order name: Cardiac monitoring; Complete Time: 16:18 05/16 15:25 Order name: EKG - Nurse/Tech; Complete Time: 16:18 05/16 15:25 Order name: IV Saline Lock; Complete Time: 16:56 05/16 15:25 Order name: Labs collected and sent; Complete Time: 16:18 05/16 15:25 Order name: O2 Per Protocol; Complete Time: 16:18 05/16 15:25 Order name: O2 Sat Monitoring; Complete Time: 16:18 [facility] EC:50 Rate is 97 beats/min. Rhythm is regular. QRS [place] is Normal. NV interval is normal. QRS zoe interval is normal. QT interval is normal. No Q waves. T waves are Normal. No ST changes noted. Clinical impression: Normal ECG and No evidence of ischemia. Interpreted by me. Reviewed by me. Administered Medications: 16:02 Not Given (Patient Refused): morphineor iv 2 mg IVP once over 4 mins zoe 16:54 Drug: NS 0.9% IV 1000 ml IV at 1 bolus Per protocol; 1000 mL bolus Route: IV; Rate: 1 aa5 bolus; Site: left upper arm; 19:22 Follow up: IV Status: Completed infusion; IV Intake: 1000ml [facility] 16:54 Drug: Ondansetron IVP 4 mg IVP once; over 2 minutes Route: IVP; Site: left upper arm; aa5 19:23 Follow up: Response: No adverse reaction [facility] 16:54 Drug: HYDROmorphone IVP 1 mg IVP once Route: IVP; Site: left upper arm; aa5 19:23 Follow up: Response: No adverse reaction 18:24 Drug: Ciprofloxacin IVPB 400 mg 200 ml IVPB once over 60 mins Volume: 200 ml; Route: tl4 IVPB; Infused Over: 60 mins; Site: left antecubital; 19:22 Follow up: IV Status: Completed infusion 18:24 Drug: metroNIDAZOLE IVPB 500 mg 100 ml IVPB at 200 ml/hr once over 30 mins Volume: 100 tl4 ml; Route: IVPB; Rate: 200 ml/hr; Infused Over: 30 mins; Site: left antecubital; 18:24 Follow up: Response: No adverse reaction; IV Status: Completed infusion; IV Intake: tl4 200ml 18:28 Drug: Potassium PO Effervescent Tablet 25 mEq PO once; dissolve in 4 ounces of water or aa5 juice Route: PO; 19:23 Follow up: Response: No adverse reaction 18:28 Drug: Pantoprazole IVP 40 mg IVP once Route: IVP; Site: left upper arm; aa5 19:23 Follow up: Response: No adverse reaction 18:28 Drug: MethylPrednisoLONE IVP 125 mg IVP once Route: IVP; Site: left upper arm; aa5 19:23 Follow up: Response: No adverse reaction km8 18:29 Drug: HYDROmorphone IVP 1 mg IVP once Route: IVP; Site: left upper arm; aa5 19:23 Follow up: Response: No adverse reaction km8 18:30 Drug: predniSONE PO 20 mg PO once Route: PO; aa5 19:23 Follow up: Response: No adverse reaction km8 Disposition Summary: 05/16/23 17:47 Discharge Ordered Notes: Location: Home zoe Problem: new zoe Symptoms: have improved zoe Condition: Stable zoe Diagnosis - Type 2 diabetes mellitus with hyperglycemia zoe - Abdominal tenderness zoe - Gastroparesis zoe - GI Bleed/ Gastrointestinal hemorrhage, unspecified - LOWER STABLE zoe - Obesity, unspecified zoe - Hypokalemia zoe - Gastro-esophageal reflux disease with esophagitis zoe - Diverticulosis of large intestine without perforation or abscess with bleeding zoe - Crohn's disease, unspecified, without complications zoe Followup: zoe - With: Gregorio Jaimes MD - When: 2 - 3 days - Reason: Recheck today's complaints, Continuance of care, Re-evaluation by your physician Followup: zoe - With: Justino Gupta MD - When: 2 - 3 days - Reason: Recheck today's complaints, Re-evaluation by your physician Discharge Instructions: - Discharge Summary Sheet zoe - Abdominal Pain, Adult zoe - Crohn's Disease zoe - Food Choices for Gastroesophageal Reflux Disease, Adult zoe - High-Fiber Eating Plan zoe - Potassium Content of Foods zoe - Diverticulosis zoe - Esophagitis zoe - Gastrointestinal Bleeding zoe - Hyperglycemia zoe - Obesity, Adult zoe - Rectal Bleeding zoe - Abdominal Pain, Adult, [id number] zoe - Gastroesophageal Reflux Disease, Adult, [id number]-[id number] zoe - Diabetes Mellitus and Nutrition, Adult zoe - Rectal Bleeding, Lodd-se-Vndy zoe - Obesity, Adult, [id number] zoe - Food Choices for Gastroesophageal Reflux Disease, Adult, Qfaw-[id number]-Rmtw zoe - Lower Gastrointestinal Bleeding zoe Forms: - Medication Reconciliation Form zoe - Thank You Letter zoe - Antibiotic Education zoe - Prescription Opioid Use zoe - Patient Portal Instructions [facility] - Leadership Thank You Letter [facility] Prescriptions: - ondansetron 4 mg Oral Tablet,disintegrating - take 1 tablet ORAL route every 6-8 hours for 5 days as needed for nausea and zoe vomiting; 20 tablet; Refills: 0, Product Selection Permitted - Flagyl 500 mg Oral tablet - take 1 tablet ORAL route every 8 hours for 7 days; 21 tablet; Refills: 0, [facility] Product Selection Permitted - Protonix 40 mg Oral Tablet - take 1 tablet ORAL route once daily; 30 tablet; Refills: 0, Product Selection [facility] Permitted - Cipro 500 mg Oral Tablet - take 1 tablet ORAL route every 12 hours for 7 days; 14 tablet; Refills: 0, [facility] Product Selection Permitted - Medrol (Cezar) 4 mg Oral Tablets, Dose Pack - take 1 tablet ORAL route as directed - follow package instructions; 1 packet; zoe Refills: 0, Product Selection Permitted - dicyclomine 20 mg Oral tablet - take 1 tablet ORAL route 4 times per day; 28 tablet; Refills: 0, Product zoe Selection Permitted Signatures: Dispatcher [employer] Kam Corrales MD MD cha Calderon, Audri RN RN aa5 Shelley Alicea RN RN nj1 Ry Starks RN RN tl4 Patricia Bautista RN km8
--- NOTE | 2023-05-16 17:48 | ER ---
Nurse's Notes [facility] Name: Elly Clarke Age: 53 yrs Sex: Female : 1970 Arrival Date: 05/16/2023 Time: 14:56 Bed 4 Private MD: Diagnosis: Type 2 diabetes mellitus with hyperglycemia;Abdominal tenderness;Gastroparesis;GI Bleed/ Gastrointestinal hemorrhage, unspecified-LOWER STABLE;Obesity, unspecified;Hypokalemia;Gastro-esophageal reflux disease with esophagitis;Diverticulosis of large intestine without perforation or abscess with bleeding;Crohn's disease, unspecified, without complications Presentation: 05/16 15:17 Chief complaint: Patient states: Abdominal pain with nausea, vomiting and diarrhea. nj1 States she has noticed blood in her stool and sometimes in her emesis. Onset about 5 days ago, getting worse. 15:17 Method Of Arrival: Ambulatory [facility] 15:17 Coronavirus screen: Vaccine status: Patient reports receiving the 1st dose of the Covid nj1 vaccine. Ebola Screen: Patient denies travel to an Ebola-affected area in the 21 days before illness onset. Initial Sepsis Screen: Does the patient meet any 2 criteria? HR > 90 bpm. No. Patient's initial sepsis screen is negative. Does the patient have a suspected source of infection? No. Patient's initial sepsis screen is negative. Risk Assessment: Do you want to hurt yourself or someone else? Patient reports no desire to harm self or others. Onset of symptoms was May 11, 2023. 15:17 Acuity: HANNAH 3 nj1 Triage Assessment: 16:18 General: Appears uncomfortable, Behavior is cooperative. Pain: Complains of pain in tl4 abdomen Pain does not radiate. Pain currently is 8 out of 10 on a pain scale. Quality of pain is described as sharp, stabbing, squeezing, "twisting" Pain began gradually, 6 days. EENT: No deficits noted. No signs and/or symptoms were reported regarding the EENT system. Neuro: No deficits noted. Denies weakness dizziness, headache. Cardiovascular: No deficits noted. Denies chest pain, diaphoresis, lightheadedness, nausea, palpitations. Respiratory: No deficits noted. Denies cough, shortness of breath. GI: Bowel sounds present X 4 quads. Abd is soft and non tender X 4 quads. Reports lower abdominal pain, constipation, diarrhea, nausea. : No deficits noted. No signs and/or symptoms were reported regarding the genitourinary system. Derm: No deficits noted. No signs and/or symptoms reported regarding the dermatologic system. Musculoskeletal: No deficits noted. No signs and/or symptoms reported regarding the musculoskeletal system. Historical: - Allergies: 15:17 Claritin (insomnia); nj1 15:17 Compazine (Seizures); nj1 15:17 Demerol (HEART RACING); nj1 15:17 (Hives); nj1 15:17 Morphine (RACING HEART); nj1 - PMHx: 15:17 Anxiety; Arthritis; Chrohns; Chronic pain; Diabetes - NIDDM; Dramatic migraine events; nj1 Gastroparesis; High Cholesterol; Hypertension; insomnia; Migraines; Pancreatitis; spinal stenosis; - PSHx: 15:17 Cholecystectomy; Knee sx x 2; mass removed from breast; Tonsillectomy; Total abdominal nj1 hysterectomy; tumor removed from septum; - Immunization history:: Client reports receiving the 1st dose of the Covid vaccine. - Social history:: Smoking status: Patient denies any tobacco usage or history of. Screenin:22 [facility] ED Fall Risk Assessment (Adult) History of falling in the last 3 months, tl4 including since admission No falls in past 3 months (0 pts) Confusion or Disorientation No (0 pts) Intoxicated or Sedated No (0 pts) Impaired Gait No (0 pts) Mobility Assist Device Used No (0 pt) Altered Elimination No (0 pt) Score/Fall Risk Level 0 - 2 = Low Risk Oriented to surroundings, Maintained a safe environment, Educated pt \\T\\ family on fall prevention, incl call for assistance when getting out of bed, Assessed \\T\\ reinforced patient's understanding of fall precautions, Provided non-skid footwear, Hourly rounding (assess needs \\T\\ fall precautionary measures) done, Used ambulatory aids as needed (educated on \\T\\ assisted with), Used gait belt as appropriate. Abuse screen: Denies threats or abuse. Denies injuries from another. Nutritional screening: No deficits noted. Tuberculosis screening: No symptoms or risk factors identified. Assessment: 15:30 General: Appears uncomfortable, Behavior is calm, cooperative. Pain: Complains of pain aa5 in suprapubic area Pain currently is 9 out of 10 on a pain scale. Quality of pain is described as sharp, Pain began 1 week ago, worse over the last 2-3 days Is continuous. Neuro: Level of Consciousness is awake, alert, obeys commands, Oriented to person, place, time, situation. Cardiovascular: Heart tones S1 S2 present Rhythm is regular. Respiratory: Airway is patent Respiratory effort is even, unlabored, Respiratory pattern is regular, symmetrical. GI: Abdomen is round non-distended, Bowel sounds present X 4 quads. Abd is soft and non tender X 4 quads. Reports diarrhea, bloody stool, nausea, vomiting. : Denies burning with urination, inability to void. EENT: No signs and/or symptoms were reported regarding the EENT system. Derm: Skin is pink, warm \\T\\ dry. Musculoskeletal: Range of motion: intact in all extremities. 16:23 Reassessment: Patient and/or family updated on plan of care and expected duration. Pain tl4 level reassessed. Patient is alert, oriented x 3, equal unlabored respirations, skin warm/dry/pink. GI: Abdomen is flat, non-distended. 16:24 Reassessment: Pt is a hard stick, CN notified, RN to attempt US guided IV. . aa5 16:30 Reassessment: RN at bedside attempting US guided IV insertion. . aa5 16:54 Reassessment: Patient is alert, oriented x 3, equal unlabored respirations, skin aa5 warm/dry/pink. 18:05 Reassessment: Patient is alert, oriented x 3, equal unlabored respirations, skin aa5 warm/dry/pink. 18:30 Reassessment: Awaiting Cipro to complete before d/c home. aa5 19:15 Reassessment: Patient appears in no apparent distress at this time. km8 Vital Signs: 15:17 BP 125 / 45; Pulse 104; Resp 18; Temp 98.1; Pulse Ox 98% on R/A; Weight 105.69 kg; nj1 Height 5 ft. 7 in. ; Pain 9/10; 16:21 BP 137 / 80; Pulse 96; Resp 16; Pulse Ox 97% on R/A; tl4 18:05 BP 139 / 80; Pulse 96; Resp 18 S; Temp 97.8(TE); Pulse Ox 98% on R/A; Pain 6/10; aa5 19:00 BP 160 / 98; Pulse 87; Resp 16; Pulse Ox 99% on R/A; km8 15:17 Body Mass Index 36.49 (105.69 kg, 170.18 cm) nj1 15:17 Pain Scale: Adult nj1 18:05 Pain Scale: Adult aa5 Vitals: 16:21 Cardiac Rhythm Assessment Regular Sinus rhythm. tl4 [place] Coma Score: 16:21 Eye Response: spontaneous(4). Motor Response: obeys commands(6). Verbal Response: tl4 oriented(5). Total: 15. ED Course: 15:00 Patient arrived in ED. ts1 15:19 Kam Parker MD is Attending Physician. [facility] 15:19 Marie Alegria, NAT is Primary Nurse. aa5 15:37 Triage completed. nj1 15:38 Arm band placed on. nj1 15:54 XRAY Chest (1 view) In Process Unspecified. EDMS 15:59 Missed attempt(s): 22 gauge in left antecubital area. Bleeding controlled, band aid aa5 applied, catheter tip intact. 15:59 Initial lab(s) drawn, by me, sent to lab. aa5 16:04 Missed attempt(s): 22 gauge in left wrist. Bleeding controlled, band aid applied, aa5 catheter tip intact. 16:17 Urinalysis w/ reflexes Sent. tl4 16:18 Troponin HS Sent. tl4 16:18 PT-INR Sent. tl4 16:18 NT PRO-BNP Sent. tl4 16:18 Magnesium Sent. tl4 16:18 LFT's Sent. tl4 16:18 Basic Metabolic Panel Sent. tl4 16:18 Lipase Sent. tl4 16:22 Patient has correct armband on for positive identification. Placed in gown. Bed in low tl4 position. Call light in reach. Side rails up X2. Provided Education on: ed process. Client placed on continuous cardiac and pulse oximetry monitoring. NIBP monitoring applied. patient monitor on. Door closed. Lights dimmed. Moved to private room. Warm blanket given. 16:23 No provider procedures requiring assistance completed. tl4 16:39 Inserted saline lock: 20 gauge in left upper arm, using aseptic technique. nj1 17:05 CT Abd/Pelvis - IV Contrast Only In Process Unspecified. EDMS 17:43 Jaimes, Gregorio, MD is Referral Physician. zoe 17:45 Justino Gupta MD is Referral Physician. zoe 19:22 IV discontinued, intact, bleeding controlled, No redness/swelling at site. Pressure km8 dressing applied. Administered Medications: 16:02 Not Given (Patient Refused): morphineor iv 2 mg IVP once over 4 mins zoe 16:54 Drug: NS 0.9% IV 1000 ml IV at 1 bolus Per protocol; 1000 mL bolus Route: IV; Rate: 1 aa5 bolus; Site: left upper arm; 19:22 Follow up: IV Status: Completed infusion; IV Intake: 1000ml [facility] 16:54 Drug: Ondansetron IVP 4 mg IVP once; over 2 minutes Route: IVP; Site: left upper arm; aa5 19:23 Follow up: Response: No adverse reaction 16:54 Drug: HYDROmorphone IVP 1 mg IVP once Route: IVP; Site: left upper arm; aa5 19:23 Follow up: Response: No adverse reaction 8 18:24 Drug: Ciprofloxacin IVPB 400 mg 200 ml IVPB once over 60 mins Volume: 200 ml; Route: tl4 IVPB; Infused Over: 60 mins; Site: left antecubital; 19:22 Follow up: IV Status: Completed infusion 8 18:24 Drug: metroNIDAZOLE IVPB 500 mg 100 ml IVPB at 200 ml/hr once over 30 mins Volume: 100 tl4 ml; Route: IVPB; Rate: 200 ml/hr; Infused Over: 30 mins; Site: left antecubital; 18:24 Follow up: Response: No adverse reaction; IV Status: Completed infusion; IV Intake: tl4 200ml 18:28 Drug: Potassium PO Effervescent Tablet 25 mEq PO once; dissolve in 4 ounces of water or aa5 juice Route: PO; 19:23 Follow up: Response: No adverse reaction 8 18:28 Drug: Pantoprazole IVP 40 mg IVP once Route: IVP; Site: left upper arm; aa5 19:23 Follow up: Response: No adverse reaction 18:28 Drug: MethylPrednisoLONE IVP 125 mg IVP once Route: IVP; Site: left upper arm; aa5 19:23 Follow up: Response: No adverse reaction [facility] 18:29 Drug: HYDROmorphone IVP 1 mg IVP once Route: IVP; Site: left upper arm; aa5 19:23 Follow up: Response: No adverse reaction km8 18:30 Drug: predniSONE PO 20 mg PO once Route: PO; aa5 19:23 Follow up: Response: No adverse reaction km8 Medication: 16:21 VIS not applicable for this client. tl4 Intake: 18:24 IV: 200ml; Total: 200ml. tl4 19:22 IV: 1000ml; Total: 1200ml. km8 Outcome: 17:47 Discharge ordered by . zoe 19:24 Discharged to home ambulatory, km8 19:24 Condition: good 19:24 Discharge instructions given to patient, Instructed on discharge instructions, follow up and referral plans. medication usage, Demonstrated understanding of instructions, follow-up care, medications, Prescriptions given X 6 19:25 Patient left the ED. km8 Signatures: Dispatcher [employer] EDMS Kam Parker MD MD cha Calderon, Audri, RN RN aa5 Shelley Alicea RN RN nj1 Pastora Galan PAS PAS ts1 Patricia Bautista RN RN km8 Ry Starks RN RN tl4 Corrections: (The following items were deleted from the chart) 19:25 19:24 Discharge instructions given to patient, Instructed on discharge instructions, km8 follow up and referral plans. medication usage, Demonstrated understanding of instructions, follow-up care, medications, Prescriptions given X 5 km8
[2023-05-16 19:37] VITALS: BP 160/98; TEMP 97.8; O2SAT 99
--- NOTE | 2023-05-18 11:00 | EKG ---
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
== END ==
LOC: ER 14:56
DX: E11.65 Type 2 diabetes mellitus with hyperglycemia (principal); K31.84 Gastroparesis; K21.00 Gastro-esophageal reflux disease with esophagitis, without bleeding; K57.30 Diverticulosis of large intestine without perforation or abscess without bleeding; E87.6 Hypokalemia; K50.90 Crohn's disease, unspecified, without complications; R10.819 Abdominal tenderness, unspecified site; E66.9 Obesity, unspecified; Z68.36 Body mass index [BMI] 36.0-36.9, adult; I10 Essential (primary) hypertension; Z88.1 Allergy status to other antibiotic agents; Z88.5 Allergy status to narcotic agent; Z88.8 Allergy status to other drugs, medicaments and biological substances
CPT/HCPCS: 93005; 85025; 81001; 80048; 36415; 83735; 85610; 80076; 84484; 83690; 83880; 74177; 71045; 99285; Q9967; J7512; C9113; J1170 ×2; J2930; J2405; J0744; J7030

== ENCOUNTER 2023-11-30 15:33 | Emergency (ER) | payer OTHER ==
[2023-11-30 16:40] LABS: Specific Gravity 1.022 (1.005-1.030); Sqamous Epithelial <5 /HPF (None Seen); Urine Bacteria <20 /HPF (<20); Urine Bilirubin NEGATIVE (Negative); Urine Blood Negative (Negative); Urine Clarity Turbid (Clear); Urine Color Light-Yellow (Yellow); Urine Culture Reflex Order REFLEXED; Urine Glucose 1+ (Negative); Urine Ketones NEGATIVE (Negative); Urine Microscopic Reflex YN ORDER UMIC; Urine Nitrite NEGATIVE (Negative); Urine Protein 1+ (Negative); Urine RBC <5 /HPF (None Seen); Urine Urobilinogen Normal (Normal); Urine pH 6.5 (5.0-7.0)
[2023-11-30] MEDS ORDERED: ONDANSETRON 4 MG/2 ML VIAL ONE (16:52)
[2023-11-30] MEDS ORDERED: FENTANYL CITR 100 MCG/2 ML ONE ×2 (16:52→18:48)
[2023-11-30] MEDS ORDERED: NA CHLORIDE 0.9% 1,000 ML ONE (16:53)
[2023-11-30] MEDS ORDERED: FAMOTIDINE 20 MG/2 ML VIAL IV ONE (16:53)
[2023-11-30 17:20] LABS: Absolute Eosinophils 0.1 K/uL (0-0.5); Absolute Lymphocytes (CBC) 2.6 K/uL (0.7-4.9); Absolute Monocytes 0.7 K/uL (0.1-1.3); Absolute Neutrophil 6.8 K/uL (1.8-8.0); Basophils % 0.3 % (0-1.3); Eosinophils % 1.2 % (0-4.4); Hemoglobin 11.8 g/dL (12.0-15.0); Lymphocytes % 25.7 % (15.3-44.8); MCH 27.4 pg (27.0-35.0); MCHC 32.9 g/dL (32.0-36.0); MCV 83.2 fL (80-100); MPV 8.3 fL (7.6-11.3); Monocytes % 6.4 % (3.3-12.3); Neutrophils % 66.4 % (41.7-73.7); Nucleated Red Blood Cells % 0.1 % (0-0); Platelets 249 thou/uL (152-406); RBC Red Blood Cell Count 4.33 M/uL (3.86-4.86); Red Cell Distribution Width 14.8 % (12.1-15.2)
[2023-11-30 17:34] LABS: ALT/SGPT 25 U/L (13-56); Albumin 2.9 g/dL (3.4-5.0); Albumin/Globulin Ratio 0.8 (1.1-1.8); Alkaline Phosphatase 84 U/L (45-117); Anion Gap 9.1 mEq/L (5.0-15.0); BUN Blood Urea Nitrogen 14 mg/dL (7-18); Bicarbonate 26 mEq/L (21-32); Bilirubin Total 0.3 mg/dL (0.2-1.0); Globulin 3.8 g/dL (2.3-3.5); Glomerular Filtration Rate 79 ml/min (=/>90); Glucose Level 280 mg/dL (74-106); Lipase 301 U/L (13-75); Potassium 3.1 mEq/L (3.5-5.1); Protein, Total 6.7 g/dL (6.4-8.2); Sodium Level 137 mEq/L (136-145)
[2023-11-30 17:40] LABS: AST/SGOT < 10 U/L (15-37)
--- NOTE | 2023-11-30 18:41 | RAD REPORT ---
EXAM DESCRIPTION: CTAbdomen Pelvis W Contrast - 11/30/2023 6:21 pm CLINICAL HISTORY: ABD PAIN COMPARISON: Abdomen Pelvis W Contrast dated 10/15/2023; Abdomen Pelvis W Contrast dated 05/16/2023 ; Abdomen Pelvis W Contrast dated 11/12/2022; Abdomen Pelvis W Contrast dated 01/08/2021 TECHNIQUE: CT of the abdomen and pelvis was performed with IV contrast. All CT scans are performed using dose optimization technique as appropriate and may include automated exposure control or mA/KV adjustment according to patient size. FINDINGS: Lower chest: Circumferential thickened distal esophagus . Liver: No acute abnormality or suspicious lesions. Biliary: No biliary ductal dilatation. Cholecystectomy. Stomach: No significant focal abnormality. Duodenum: No significant focal abnormality. Pancreas: No significant abnormality. Spleen: No significant abnormality. Adrenal: No suspicious lesions. Kidney/ureter: No hydronephrosis. No renal calculi. Retroperitoneum: No retroperitoneal adenopathy. Vascular: No aneurysm. Bowel: Diverticulosis. Fluid present within the colon and portions of small bowel.. No bowel obstruct ion. Diverticulosis without diverticulitis . Mild wall thickening present at the sigmoid. Peritoneum: No ascites or free air. Bladder: Grossly unremarkable. Reproductive: No adnexal masses. Bones: No acute fracture. Shrapnel present in the soft tissues are on the right hip. Other: n/a IMPRESSION: No acute intra-abdominal or pelvic finding. Nonspecific fluid within the small bowel and colon could reflect diarrheal disease. No bowel obstruction.
--- NOTE | 2023-11-30 19:21 | EDPHYS ---
Physician Documentation [facility] Name: Elly Clarke Age: 53 yrs Sex: Female : 1970 Arrival Date: 11/30/2023 Time: 15:33 Bed 13 Private MD: ED Physician Jason Patel HPI: 11/29 16:13 This 53 yrs old Female presents to ER via Ambulatory with complaints of rt Nausea/Vomiting, Abdominal Pain. 16:13 Patient reports a recent admission to a hospital in [facility] for a reported bowel rt obstruction/ileus, managed with an NG tube. Patient states that she got better, went home on Thursday. Subsequently had a return of the pain today about 4 with nausea, vomiting similar in character to the obstruction. Denies other acute complaints at this time, symptoms are moderate in severity, no other aggravating or alleviating factors.. Historical: - Allergies: 15:50 Claritin (insomnia); db 15:50 Demerol (HEART RACING); db 15:50 Compazine (Seizures); db 15:50 Morphine (RACING HEART); db 15:50 (Hives); db - PMHx: 15:50 Chronic pain; Diabetes - NIDDM; Chrohns; Arthritis; High Cholesterol; Gastroparesis; db insomnia; Migraines; Hypertension; Dramatic migraine events; spinal stenosis; Pancreatitis; Anxiety; BOWEL OBSTRUCTION (Anxiety); - Immunization history:: Adult Immunizations unknown. - Infectious Disease History:: Denies. - Social history:: Smoking status: Patient denies any tobacco usage or history of. - Family history:: not pertinent. ROS: 16:13 Constitutional: Negative for fever, chills, and weight loss, Cardiovascular: Negative rt for chest pain, palpitations, and edema, Respiratory: Negative for shortness of breath, cough, wheezing, and pleuritic chest pain, MS/Extremity: Negative for injury and deformity, Skin: Negative for injury, rash, and discoloration, Neuro: Negative for headache, weakness, numbness, tingling, and seizure, 16:13 Abdomen/GI: Positive for abdominal pain, nausea and vomiting, Exam: 16:13 Constitutional: This is a well developed, well nourished patient who is awake, alert, rt and in no acute distress. Head/Face: Normocephalic, atraumatic. Chest/axilla: Normal chest wall appearance and motion. Nontender with no deformity. No lesions are appreciated. Cardiovascular: Regular rate and rhythm with a normal S1 and S2. No gallops, murmurs, or rubs. Normal PMI, no JVD. No pulse deficits. Respiratory: Lungs have equal breath sounds bilaterally, clear to auscultation and percussion. No rales, rhonchi or wheezes noted. No increased work of breathing, no retractions or nasal flaring. Skin: Warm, dry with normal turgor. Normal color with no rashes, no lesions, and no evidence of cellulitis. MS/ Extremity: Pulses equal, no cyanosis. Neurovascular intact. Full, normal range of motion. Neuro: Awake and alert, GCS 15, oriented to person, place, time, and situation. Cranial nerves II-XII grossly intact. Motor strength 5/5 in all extremities. Sensory grossly intact. Cerebellar exam normal. Normal gait. 16:13 Abdomen/GI: Tenderness diffusely with mild distention, no rebound, guarding, Vital Signs: 15:47 BP 146 / 91; Pulse 108; Resp 18; Temp 98.8(O); Pulse Ox 98% ; Weight 106.14 kg; Height db 1 ft. 57 in. ; 16:24 BP 140 / 92; Pulse 98; Pulse Ox 95% on R/A; Pain 7/10; tm6 17:12 BP 140 / 66; Pulse 93; Pulse Ox 94% on R/A; Pain 7/10; tm6 17:34 Pain 5/10; tm6 18:42 BP 128 / 81; Pulse 81; Pulse Ox 99% ; tm6 18:44 Pain 8/10; tm6 19:30 BP 144 / 71; Pulse 83; Resp 19; Temp 98.7; Pulse Ox 100% on R/A; Pain 4/10; tm6 15:47 Body Mass Index 34.56 (106.14 kg, 175.26 cm) db 16:24 Pain Scale: Adult tm6 17:12 Pain Scale: Adult tm6 17:34 Pain Scale: Adult tm6 18:44 Pain Scale: Adult tm6 19:30 Pain Scale: Adult tm6 MDM: 15:54 Patient medically screened. rt 19:57 Differential diagnosis: Gastroenteritis, bowel obstruction, ileus. Data reviewed: vital rt signs, nurses notes, lab test result(s), radiologic studies. I considered the following discharge prescriptions or medication management in the emergency department Medications were administered in the Emergency Department. See MAR. Independent interpretation of the following test(s) in the Emergency Department CT Scan: My interpretation is No bowel obstruction seen on my interpretation of CT scan images. Care significantly affected by the following chronic conditions: Crohn's disease. Counseling: I had a detailed discussion with the patient and/or guardian regarding the historical points, exam findings, and any diagnostic results supporting the discharge/admit diagnosis, lab results, radiology results, the need for outpatient follow up, to return to the emergency department if symptoms worsen or persist or if there are any questions or concerns that arise at home. Response to treatment: the patient's symptoms have markedly improved after treatment. 11/29 15:58 Order name: CBC with Diff; Complete Time: 18:41 rt 11/29 15:58 Order name: CMP; Complete Time: 18:41 rt 11/29 15:58 Order name: Lipase; Complete Time: 18:41 rt 11/29 15:58 Order name: Urinalysis w/ reflexes; Complete Time: 18:41 rt 11/29 16:49 Order name: Urine Culture EDMS 11/29 15:58 Order name: CT Abd/Pelvis - IV Contrast Only; Complete Time: 18:43 rt 11/29 15:58 Order name: IV Saline Lock; Complete Time: 17:03 rt 11/29 15:58 Order name: Labs collected and sent; Complete Time: 17:03 rt Administered Medications: 17:03 Drug: Ondansetron IVP 4 mg IVP once; over 2 minutes Route: IVP; Site: right forearm; tm6 17:30 Follow up: Response: No adverse reaction tm6 17:04 Drug: NS 0.9% IV 1000 ml IV at 1 bolus Per protocol; 1000 mL bolus Route: IV; Rate: 1 tm6 bolus; Site: right forearm; 18:51 Follow up: Response: No adverse reaction; IV Status: Completed infusion; IV Intake: tm6 1000ml 17:04 Drug: Famotidine IVP 20 mg IVP once; dilute with 10 mL 0.9% NaCl; give over 2 minutes tm6 Route: IVP; Site: right forearm; 17:30 Follow up: Response: No adverse reaction tm6 17:04 Drug: fentaNYL (PF) IVP 75 mcg IVP once Route: IVP; Site: right forearm; tm6 17:35 Follow up: Response: No adverse reaction; Pain is decreased tm6 18:46 CANCELLED (Duplicate Order): fentanyl (pf)50 mcg IVP once tm6 18:50 Drug: fentaNYL (PF) IVP 50 mcg IVP once Route: IVP; Site: right antecubital; tm6 19:31 Follow up: Response: No adverse reaction; Pain is decreased tm6 Disposition Summary: 11/30/23 19:21 Discharge Ordered Notes: Location: Home rt Problem: an acute exacerbation rt Symptoms: have improved rt Condition: Stable rt Diagnosis - Abdominal pain, Generalized rt Followup: rt - With: Private Physician - When: 2 - 3 days - Reason: Discharge Instructions: - Discharge Summary Sheet rt - Abdominal Pain, Adult rt - Diarrhea, Adult rt Forms: - Medication Reconciliation Form rt - Antibiotic Education rt - Prescription Opioid Use rt - Patient Portal Instructions rt - Leadership Thank You Letter rt Prescriptions: - ondansetron 4 mg Oral Tablet,disintegrating - take 1 tablet ORAL route every 6 hours as needed for nausea; 18 tablet; rt Refills: 0, Product Selection Permitted - Ultram 50 mg Oral Tablet - take 1 tablet ORAL route every 6 hours As needed; 12 tablet; Refills: 0, rt Product Selection Permitted Signatures: Dispatcher [employer] Shavonne Montanez, RN RN db Jason Patel MD MD rt Luz Maria Irizarry RN RN tm6 Corrections: (The following items were deleted from the chart) 18:46 18:43 fentaNYL (PF) IVP 50 mcg IVP once ordered. rt tm6
--- NOTE | 2023-11-30 19:21 | ER ---
Nurse's Notes [facility] Name: Elly Clarke Age: 53 yrs Sex: Female : 1970 Arrival Date: 11/30/2023 Time: 15:33 Bed 13 Private MD: Diagnosis: Abdominal pain, Generalized Presentation: 11/29 15:47 Chief complaint: Patient states: LOWER ABD PAIN STARTED AT 0400 WITH N/V. FEELS SIMILAR db TO BOWEL OBSTRUCTION. DISCHARGE THURSDAY FOR BOWEL OBSTRUCTION. Coronavirus screen: Client denies travel out of the [place] in the last 14 days. At this time, the client does not indicate any symptoms associated with coronavirus-19. Ebola Screen: Patient negative for fever greater than or equal to 101.5 degrees Fahrenheit, and additional compatible Ebola Virus Disease symptoms Patient denies exposure to infectious person. Patient denies travel to an Ebola-affected area in the 21 days before illness onset. No symptoms or risks identified at this time. Initial Sepsis Screen: Does the patient meet any 2 criteria? No. Patient's initial sepsis screen is negative. Does the patient have a suspected source of infection? No. Patient's initial sepsis screen is negative. Risk Assessment: Do you want to hurt yourself or someone else? Patient reports no desire to harm self or others. Onset of symptoms was November 30, 2023. 15:47 Method Of Arrival: Ambulatory db 15:47 Acuity: HANNAH 3 db Triage Assessment: 15:50 General: Appears in no apparent distress. uncomfortable, Behavior is calm, cooperative. db Pain: Complains of pain in abdomen. Neuro: Level of Consciousness is awake, alert, obeys commands, Oriented to person, place, time, situation. GI: Abdomen is distended, Reports lower abdominal pain. Historical: - Allergies: 15:50 Claritin (insomnia); db 15:50 Demerol (HEART RACING); db 15:50 Compazine (Seizures); db 15:50 Morphine (RACING HEART); db 15:50 (Hives); db - PMHx: 15:50 Chronic pain; Diabetes - NIDDM; Chrohns; Arthritis; High Cholesterol; Gastroparesis; db insomnia; Migraines; Hypertension; Dramatic migraine events; spinal stenosis; Pancreatitis; Anxiety; BOWEL OBSTRUCTION (Anxiety); - Immunization history:: Adult Immunizations unknown. - Infectious Disease History:: Denies. - Social history:: Smoking status: Patient denies any tobacco usage or history of. - Family history:: not pertinent. Screenin:23 [facility] ED Fall Risk Assessment (Adult) History of falling in the last 3 months, tm6 including since admission No falls in past 3 months (0 pts) Confusion or Disorientation No (0 pts) Intoxicated or Sedated No (0 pts) Impaired Gait No (0 pts) Mobility Assist Device Used No (0 pt) Altered Elimination No (0 pt) Score/Fall Risk Level 0 - 2 = Low Risk Oriented to surroundings, Maintained a safe environment, Educated pt \T\ family on fall prevention, incl call for assistance when getting out of bed. Abuse screen: Denies threats or abuse. Denies injuries from another. Nutritional screening: No deficits noted. Tuberculosis screening: No symptoms or risk factors identified. Assessment: 16:23 General: Appears in no apparent distress. Behavior is calm, cooperative. Pain: tm6 Complains of pain in suprapubic area, right lower quadrant and left lower quadrant Pain does not radiate. Pain currently is 7 out of 10 on a pain scale. Neuro: Level of Consciousness is awake, alert, obeys commands, Oriented to person, place, time, situation. Cardiovascular: Patient's skin is warm and dry. Respiratory: Airway is patent Respiratory effort is even, unlabored, Respiratory pattern is regular, symmetrical. GI: Abdomen is round obese, Abd is soft and non tender X 4 quads. Reports lower abdominal pain. : No signs and/or symptoms were reported regarding the genitourinary system. EENT: No signs and/or symptoms were reported regarding the EENT system. Derm: No signs and/or symptoms reported regarding the dermatologic system. Musculoskeletal: No signs and/or symptoms reported regarding the musculoskeletal system. 17:12 Reassessment: Patient and/or family updated on plan of care and expected duration. Pain tm6 level reassessed. Patient is alert, oriented x 3, equal unlabored respirations, skin warm/dry/pink. 18:44 Reassessment: Patient and/or family updated on plan of care and expected duration. Pain tm6 level reassessed. Patient is alert, oriented x 3, equal unlabored respirations, skin warm/dry/pink. 19:31 Reassessment: Patient and/or family updated on plan of care and expected duration. Pain tm6 level reassessed. Patient is alert, oriented x 3, equal unlabored respirations, skin warm/dry/pink. Patient states feeling better. Vital Signs: 15:47 BP 146 / 91; Pulse 108; Resp 18; Temp 98.8(O); Pulse Ox 98% ; Weight 106.14 kg; Height db 1 ft. 57 in. ; 16:24 BP 140 / 92; Pulse 98; Pulse Ox 95% on R/A; Pain 7/10; tm6 17:12 BP 140 / 66; Pulse 93; Pulse Ox 94% on R/A; Pain 7/10; tm6 17:34 Pain 5/10; tm6 18:42 BP 128 / 81; Pulse 81; Pulse Ox 99% ; tm6 18:44 Pain 8/10; tm6 19:30 BP 144 / 71; Pulse 83; Resp 19; Temp 98.7; Pulse Ox 100% on R/A; Pain 4/10; tm6 15:47 Body Mass Index 34.56 (106.14 kg, 175.26 cm) db 16:24 Pain Scale: Adult tm6 17:12 Pain Scale: Adult tm6 17:34 Pain Scale: Adult tm6 18:44 Pain Scale: Adult tm6 19:30 Pain Scale: Adult tm6 ED Course: 15:36 Patient arrived in ED. mr 15:42 Jason Patel MD is Attending Physician. rt 15:50 Triage completed. db 15:51 Arm band placed on Patient placed in an exam room. db 15:59 Luz Maria Irizarry, RN is Primary Nurse. tm6 16:22 Urinalysis w/ reflexes Sent. tm6 16:22 Missed attempt(s): 20 gauge in left antecubital area. Bleeding controlled, band aid tm6 applied, catheter tip intact. 16:23 Patient has correct armband on for positive identification. Bed in low position. Call tm6 light in reach. Side rails up X 1. Provided Education on: use of call rodriguez. Client placed on continuous cardiac and pulse oximetry monitoring. NIBP monitoring applied. Pulse ox on. NIBP on. Door closed. Noise minimized. Warm blanket given. Pillow given. 16:58 Initial lab(s) drawn, by me, sent to lab. Accessed peripheral vein via ultrasound, bp utilizing dynamic ultrasound technique using 20G Nexia IV catheter per hospital protocol. Clean \T\ dry. Dressing intact. Good blood return. Flushes easily. 17:03 Lipase Sent. tm6 17:03 CMP Sent. tm6 17:03 CBC with Diff Sent. tm6 18:23 CT Abd/Pelvis - IV Contrast Only In Process Unspecified. EDMS 19:31 No provider procedures requiring assistance completed. IV discontinued, intact, tm6 bleeding controlled, No redness/swelling at site. Pressure dressing applied. Administered Medications: 17:03 Drug: Ondansetron IVP 4 mg IVP once; over 2 minutes Route: IVP; Site: right forearm; tm6 17:30 Follow up: Response: No adverse reaction tm6 17:04 Drug: NS 0.9% IV 1000 ml IV at 1 bolus Per protocol; 1000 mL bolus Route: IV; Rate: 1 tm6 bolus; Site: right forearm; 18:51 Follow up: Response: No adverse reaction; IV Status: Completed infusion; IV Intake: tm6 1000ml 17:04 Drug: Famotidine IVP 20 mg IVP once; dilute with 10 mL 0.9% NaCl; give over 2 minutes tm6 Route: IVP; Site: right forearm; 17:30 Follow up: Response: No adverse reaction tm6 17:04 Drug: fentaNYL (PF) IVP 75 mcg IVP once Route: IVP; Site: right forearm; tm6 17:35 Follow up: Response: No adverse reaction; Pain is decreased tm6 18:46 CANCELLED (Duplicate Order): fentanyl (pf)50 mcg IVP once tm6 18:50 Drug: fentaNYL (PF) IVP 50 mcg IVP once Route: IVP; Site: right antecubital; tm6 19:31 Follow up: Response: No adverse reaction; Pain is decreased tm6 Medication: 16:23 VIS not applicable for this client. tm6 Intake: 18:51 IV: 1000ml; Total: 1000ml. tm6 Outcome: 19:21 Discharge ordered by . rt 19:31 Discharged to home ambulatory, with family, tm6 19:31 Condition: stable 19:31 Discharge instructions given to patient, Instructed on discharge instructions, follow up and referral plans. medication usage, Demonstrated understanding of instructions, follow-up care, medications, Prescriptions given X 2, 19:32 Patient left the ED. tm6 Signatures: Dispatcher [employer] EDMS Angelika Cardenas, Reg Reg mr Real Muro, RN RN bp Shavonne Quinones, RN RN db Jason Patel MD MD rt Luz Maria Irizarry RN RN tm6
[2023-11-30 19:44] VITALS: BP 144/71; TEMP 98.7; O2SAT 100
== END 2023-11-30 19:32 | disposition home or self-care (01) ==
LOC: ER 15:33
DX: R10.84 Generalized abdominal pain (principal); R11.2 Nausea with vomiting, unspecified
CPT/HCPCS: 87077; 87186; 99285

== ENCOUNTER 2024-03-26 20:14 | Inpatient (IN) | payer OTHER ==
[2024-03-26] MEDS ORDERED: DICYCLOMINE HCL 20 MG/2 ML AMP IM ONE (21:12)
[2024-03-26] MEDS ORDERED: ONDANSETRON 4 MG/2 ML VIAL ONE (21:12)
[2024-03-26] MEDS ORDERED: NA CHLORIDE 0.9% 1,000 ML ONE (21:13)
[2024-03-26] MEDS ORDERED: FAMOTIDINE 20 MG/2 ML VIAL IV ONE (21:13)
[2024-03-26 21:16] LABS: Absolute Eosinophils 0.1 K/uL (0-0.5); Absolute Lymphocytes (CBC) 3.1 K/uL (0.7-4.9); Absolute Monocytes 0.7 K/uL (0.1-1.3); Basophils % 0.4 % (0-1.3); Eosinophils % 1.5 % (0-4.4); Hemoglobin 12.4 g/dL (12.0-15.0); Lymphocytes % 38.7 % (15.3-44.8); MCH 27.5 pg (27.0-35.0); MCHC 32.7 g/dL (32.0-36.0); MCV 84.3 fL (80-100); MPV 9.1 fL (7.6-11.3); Neutrophils % 50.4 % (41.7-73.7); Platelets 219 thou/uL (152-406); RBC Red Blood Cell Count 4.51 M/uL (3.86-4.86); Red Cell Distribution Width 14.7 % (12.1-15.2)
[2024-03-26 21:31] LABS: Specific Gravity > 1.030 (1.005-1.030); Sqamous Epithelial 20-50 /HPF (None Seen); Urine Bacteria 20-50 /HPF (<20); Urine Bilirubin NEGATIVE (Negative); Urine Blood Negative (Negative); Urine Clarity Extremely Turbid (Clear); Urine Color Yellow (Yellow); Urine Culture Reflex Order NOT NEEDED; Urine Glucose NEGATIVE (Negative); Urine Ketones TRACE (Negative); Urine Microscopic Reflex YN ORDER UMIC; Urine Mucus 4+ /HPF (None Seen); Urine Nitrite NEGATIVE (Negative); Urine Protein 3+ (Negative); Urine Urobilinogen 2+ (Normal); Urine WBC >50 /HPF (<5); Urine WBC Clump Occasional /HPF (None Seen)
[2024-03-26 21:44] LABS: Albumin 3.5 g/dL (3.4-5.0); Albumin/Globulin Ratio 0.9 (1.1-1.8); Anion Gap 7.6 mEq/L (5.0-15.0); Bilirubin Total 0.2 mg/dL (0.2-1.0); Globulin 3.7 g/dL (2.3-3.5); Potassium 3.6 mEq/L (3.5-5.1); Protein, Total 7.2 g/dL (6.4-8.2)
[2024-03-26] MEDS ORDERED: HYDROMORPHONE HCL 1 MG/ML INJ ONE (21:53)
--- NOTE | 2024-03-26 22:01 | RAD REPORT ---
EXAM: Chest Single View HISTORY: ABDOMINAL DISTENTION COMPARISON: 05/16/2023 FINDINGS: LUNGS/PLEURA: Relative opacification at the left lung base which is similar to the chest radiograph f rom 05/16/2023 and is probably in part or in whole related to underpenetration. MEDIASTINUM: The mediastinal silhouette is within normal limits. CARDIAC: Within normal limits. UPPER ABDOMEN: No significant abnormality. BONES: No acute fracture. LINES/TUBES/OTHER: N/A IMPRESSION: No evidence of acute cardiopulmonary disease. .
[2024-03-26] MEDS ORDERED: METOCLOPRAMIDE 10 MG/2mL INJ ONE (23:08)
--- NOTE | 2024-03-27 01:24 | ER ---
Nurse's Notes [facility] Name: Elly Clarke Age: 54 yrs Sex: Female : 1970 Arrival Date: 03/26/2024 Time: 20:14 Bed 16 Private MD: Diagnosis: Ileus vs. Possible Partial Small Bowel Obstruction Presentation: 03/26 20:26 Chief complaint: Patient states: nausea and abdominal pain starting today. Went to [facility] [place] earlier, they couldn't do a CT, but were concerned for ileus. I had an ileus in November. They gave toradol and tramadol but it did not help my pain. They also gave me cipro because they said I might have an infection. Coronavirus screen: Client denies travel out of the [place] in the last 14 days. Ebola Screen: Patient negative for fever greater than or equal to 101.5 degrees Fahrenheit, and additional compatible Ebola Virus Disease symptoms Patient denies exposure to infectious person. Patient denies travel to an Ebola-affected area in the 21 days before illness onset. No symptoms or risks identified at this time. Initial Sepsis Screen: Does the patient meet any 2 criteria? No. Patient's initial sepsis screen is negative. Does the patient have a suspected source of infection? No. Patient's initial sepsis screen is negative. Risk Assessment: Do you want to hurt yourself or someone else?. Onset of symptoms was March 26, 2024. 20:26 Method Of Arrival: Ambulatory tm6 20:26 Acuity: HANNAH 3 tm6 Triage Assessment: 20:29 General: Appears in no apparent distress. Behavior is calm, cooperative. Pain: tm6 Complains of pain in abdomen Pain currently is 7 out of 10 on a pain scale. EENT: No signs and/or symptoms were reported regarding the EENT system. Neuro: Level of Consciousness is awake, alert, obeys commands, Oriented to person, place, time, situation. Cardiovascular: Patient's skin is warm and dry. Respiratory: Airway is patent Respiratory effort is even, unlabored, Respiratory pattern is regular, symmetrical. GI: Abdomen is round non-distended, Reports lower abdominal pain, upper abdominal pain, nausea. : No signs and/or symptoms were reported regarding the genitourinary system. Derm: No signs and/or symptoms reported regarding the dermatologic system. Musculoskeletal: No signs and/or symptoms reported regarding the musculoskeletal system. 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 - Hysterectomy, Not rg5 Historical: - Allergies: 20:29 Claritin (insomnia); tm6 20:29 Compazine (Seizures); tm6 20:29 Demerol (HEART RACING); tm6 20:29 (Hives); tm6 20:29 Morphine (RACING HEART); tm6 - PMHx: 20:29 Anxiety; Arthritis; bowel obstruction (Anxiety); Chrohns; Chronic pain; Diabetes - tm6 NIDDM; Dramatic migraine events; Gastroparesis; High Cholesterol; Hypertension; insomnia; Migraines; Pancreatitis; spinal stenosis; - PSHx: 20:29 Cholecystectomy; Knee sx x 2; mass removed from breast; Tonsillectomy; Total abdominal tm6 hysterectomy; tumor removed from septum; - Immunization history:: Flu vaccine is not up to date. - Infectious Disease History:: Denies. - Social history:: Smoking status: Patient denies any tobacco usage or history of. Screenin:39 [facility] ED Fall Risk Assessment (Adult) History of falling in the last 3 months, rg5 including since admission No falls in past 3 months (0 pts) Confusion or Disorientation No (0 pts) Intoxicated or Sedated No (0 pts) Impaired Gait No (0 pts) Mobility Assist Device Used No (0 pt) Altered Elimination No (0 pt) Score/Fall Risk Level 0 - 2 = Low Risk Oriented to surroundings, Maintained a safe environment, Hourly rounding (assess needs \T\ fall precautionary measures) done. Abuse screen: Denies threats or abuse. Nutritional screening: No deficits noted. Tuberculosis screening: No symptoms or risk factors identified. Assessment: 20:39 General: Appears in no apparent distress. comfortable, Behavior is calm, cooperative, rg5 appropriate for age. Pain: Complains of pain in abdomen Pain currently is 8 out of 10 on a pain scale. Quality of pain is described as aching, Pain began 2-3 days ago. Neuro: Level of Consciousness is awake, alert, obeys commands, Oriented to person, place, time. Cardiovascular: Patient's skin is warm and dry. Respiratory: Airway is patent Trachea midline Respiratory effort is even, unlabored, Respiratory pattern is regular, symmetrical. GI: Abdomen is round obese, Bowel sounds present in left lower quadrant Guarding noted Reports lower abdominal pain, upper abdominal pain, constipation. : No signs and/or symptoms were reported regarding the genitourinary system. EENT: No deficits noted. Derm: Skin is intact, Skin is dry, Skin is normal, Skin temperature is warm. Musculoskeletal: Circulation, motion, and sensation intact. Range of motion: intact in all extremities. 21:30 Reassessment: Patient and/or family updated on plan of care and expected duration. Pain rg5 level reassessed. Patient is alert, oriented x 3, equal unlabored respirations, skin warm/dry/pink. 22:30 Reassessment: Patient and/or family updated on plan of care and expected duration. Pain rg5 level reassessed. Patient is alert, oriented x 3, equal unlabored respirations, skin warm/dry/pink. Patient states symptoms have improved. 23:00 Reassessment: Patient and/or family updated on plan of care and expected duration. Pain rg5 level reassessed. Patient is alert, oriented x 3, equal unlabored respirations, skin warm/dry/pink. 03/27 00:00 Reassessment: Patient and/or family updated on plan of care and expected duration. Pain rg5 level reassessed. Patient is alert, oriented x 3, equal unlabored respirations, skin warm/dry/pink. 01:10 Reassessment: No changes from previously documented assessment. Patient and/or family rg5 updated on plan of care and expected duration. Pain level reassessed. Patient is alert, oriented x 3, equal unlabored respirations, skin warm/dry/pink. 03:37 Reassessment: PT ACTIVELY VOMITING, VERBAL ORDER FOR ZOFRAN 4MG IV. br2 03:38 Reassessment: Patient is alert, oriented x 3, equal unlabored respirations, skin br2 warm/dry/pink. Patient states symptoms have improved. Vital Signs: 03/26 20:26 BP 169 / 106; Pulse 98; Resp 18; Temp 97.7(O); Pulse Ox 97% on R/A; MAP 123 mmHg; tm6 Weight 107.05 kg; Height 5 ft. 7 in. ; Pain /; 20:37 BP 169 / 106; Pulse 97; Resp 18; Pulse Ox 97% on R/A; rg5 21:30 BP 165 / 99; Pulse 93; Resp 17; Pulse Ox 96% on R/A; Pain 8/10; rg5 22:30 BP 156 / 92; Pulse 88; Resp 18; Pulse Ox 97% ; Pain 5/10; rg5 03/27 00:00 BP 157 / 92; Pulse 74; Resp 17; Pulse Ox 97% on R/A; Pain 9/10; rg5 01:15 BP 164 / 91; Pulse 73; Resp 17; Temp 98(O); Pulse Ox 97% on R/A; Pain 8/10; rg5 03:02 BP 176 / 99; Pulse 82; Resp 18; Pulse Ox 97% ; br2 03/26 20:26 Body Mass Index 36.96 (107.05 kg, 170.18 cm) tm6 03/26 20:26 Pain Scale: Adult tm6 21:30 Pain Scale: Adult rg5 22:30 Pain Scale: Adult rg5 03/27 00:00 Pain Scale: Adult rg5 01:15 Pain Scale: Adult rg5 ED Course: 03/26 20:16 Patient arrived in ED. im 20:16 Kam Charles PA is PHCP. cp 20:16 Guerrero Rojas MD is Attending Physician. cp 20:18 Kirby Clarke, NAT is Primary Nurse. rg5 20:29 Triage completed. tm6 20:29 Arm band placed on right wrist. tm6 20:39 Patient has correct armband on for positive identification. Bed in low position. Call rg5 light in reach. Side rails up X 1. Door closed. Noise minimized. Warm blanket given. Verbal reassurance given. 20:39 No provider procedures requiring assistance completed. rg5 21:47 XRAY Chest (1 view) In Process Unspecified. EDMS 23:22 CT Abd/Pelvis - PO and IV Contrast In Process Unspecified. EDMS 03/27 01:23 Ramírez Torres MD is Hospitalizing Provider. ec2 01:53 Patient admitted, IV remains in place. rg5 01:54 Provided Education on: need for admitt. rg5 Administered Medications: 03/26 21:21 Drug: Famotidine IVP 20 mg IVP once; dilute with 10 mL 0.9% NaCl; give over 2 minutes rg5 Route: IVP; Site: left antecubital; 21:56 Follow up: Response: No adverse reaction rg5 21:21 Drug: NS 0.9% IV 1000 ml IV at 1 bolus Per protocol; to be given as a bolus over 60 rg5 minutes Route: IV; Rate: 1 bolus; Site: left antecubital; 22:30 Follow up: IV Status: Completed infusion; IV Intake: 1000ml rg5 21:21 Drug: Dicyclomine IM 20 mg IM once Route: IM; Site: left deltoid; rg5 21:56 Follow up: Response: No adverse reaction; Pain is decreased rg5 21:22 Drug: Ondansetron IVP 4 mg IVP once; over 2 minutes Route: IVP; Site: left antecubital; rg5 21:56 Follow up: Response: No adverse reaction rg5 21:55 Drug: HYDROmorphone IVP 1 mg IVP once Route: IVP; Site: left antecubital; rg5 22:00 Follow up: Response: No adverse reaction; Pain is decreased rg5 23:08 Drug: metoCLOPramide IVP 10 mg IVP once; over 1 to 2 minutes Route: IVP; Site: left rg5 antecubital; 03/27 00:04 Follow up: Response: No adverse reaction rg5 01:43 Drug: fentaNYL (PF) IVP 100 mcg IVP once Route: IVP; Site: left antecubital; rg5 02:30 Follow up: Response: No adverse reaction; Pain is decreased br2 03:08 Drug: Ondansetron IVP 4 mg IVP once; over 2 minutes Route: IVP; Site: left antecubital; br2 03:42 Follow up: Response: No adverse reaction; Nausea is decreased; Vomiting decreased br2 Medication: 03/26 20:39 VIS not applicable for this client. rg5 Intake: 22:30 IV: 1000ml; Total: 1000ml. rg5 Outcome: 03/27 01:23 Decision to Hospitalize by Provider. ec2 03:42 Admitted to Med/surg accompanied by tech, via wheelchair, br2 03:42 Condition: stable 03:42 Discharge instructions given to patient, Instructed on the need for admit, Demonstrated understanding of instructions, 03:43 Patient left the ED. br2 Signatures: Dispatcher [employer] Kam Mae PA PA cp Mendoza, Itzel im Corral, Edwin, MD MD ec2 Luz Maria Irizarry, RN RN tm6 Kirby Clarke, RN RN rg5 Sierra Worley, RN RN br2
--- NOTE | 2024-03-27 01:24 | EDPHYS ---
Physician Documentation [facility] Name: Elly Clarke Age: 54 yrs Sex: Female : 1970 Arrival Date: 03/26/2024 Time: 20:14 Bed 16 Private MD: ED Physician Guerrero Rojas HPI: 03/26 20:45 This 54 yrs old Female presents to ER via Ambulatory with complaints of Abdominal Pain. cp 20:45 The patient presents with abdominal pain that is diffuse, abdominal distention that is cp diffuse. Onset: The symptoms/episode began/occurred 1 week(s) ago. Associated signs and symptoms: Pertinent positives: constipation, nausea, Pertinent negatives: diarrhea, fever, vomiting. The symptoms are described as constant. 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 - Hysterectomy, Not rg5 Historical: - Allergies: 20:29 Claritin (insomnia); tm6 20:29 Compazine (Seizures); tm6 20:29 Demerol (HEART RACING); tm6 20:29 (Hives); tm6 20:29 Morphine (RACING HEART); tm6 - PMHx: 20:29 Anxiety; Arthritis; bowel obstruction (Anxiety); Chrohns; Chronic pain; Diabetes - tm6 NIDDM; Dramatic migraine events; Gastroparesis; High Cholesterol; Hypertension; insomnia; Migraines; Pancreatitis; spinal stenosis; - PSHx: 20:29 Cholecystectomy; Knee sx x 2; mass removed from breast; Tonsillectomy; Total abdominal tm6 hysterectomy; tumor removed from septum; - Immunization history:: Flu vaccine is not up to date. - Infectious Disease History:: Denies. - Social history:: Smoking status: Patient denies any tobacco usage or history of. ROS: 20:50 Constitutional: Negative for body aches, chills, fever, poor PO intake, cp 20:50 Eyes: Negative for injury, pain, redness, and discharge, cp 20:50 ENT: Negative for drainage from ear(s), ear pain, sore throat, difficulty swallowing, difficulty handling secretions, 20:50 Cardiovascular: Negative for chest pain, palpitations, 20:50 Respiratory: Negative for cough, shortness of breath, wheezing, 20:50 Abdomen/GI: Positive for abdominal pain, nausea, constipation, Negative for vomiting, diarrhea, 20:50 Back: Negative for pain at rest, pain with movement, 20:50 : Negative for urinary symptoms, 20:50 Neuro: Negative for altered mental status, dizziness, headache, numbness, syncope, weakness, 20:50 All other systems are negative, Exam: 20:55 Constitutional: The patient appears in no acute distress, alert, awake, non-toxic, well cp developed, well nourished, obese, uncomfortable, 20:55 Head/Face: Normocephalic, atraumatic. cp 20:55 Eyes: Periorbital structures: appear normal, Conjunctiva: normal, no exudate, no injection, Sclera: no appreciated abnormality, Lids and lashes: appear normal, bilaterally, 20:55 ENT: External ear(s): are unremarkable, Nose: is normal, Mouth: Lips: moist, Oral mucosa: moist, Posterior pharynx: Airway: no evidence of obstruction, patent, 20:55 Chest/axilla: Inspection: normal, 20:55 Cardiovascular: Rate: normal, Rhythm: regular, 20:55 Respiratory: the patient does not display signs of respiratory distress, Respirations: normal, no use of accessory muscles, no retractions, labored breathing, is not present, Breath sounds: are clear throughout, no decreased breath sounds, no stridor, no wheezing, 20:55 Abdomen/GI: Inspection: distension, that is moderate, Bowel sounds: active, all quadrants, Palpation: soft, in all quadrants, moderate abdominal tenderness, in all quadrants, 20:55 Back: CVA tenderness, is absent, 20:55 Neuro: Orientation: to person, place \T\ time. Mentation: is normal, Motor: moves all fours, strength is normal, Vital Signs: 20:26 BP 169 / 106; Pulse 98; Resp 18; Temp 97.7(O); Pulse Ox 97% on R/A; MAP 123 mmHg; tm6 Weight 107.05 kg; Height 5 ft. 7 in. ; Pain 7/10; 20:37 BP 169 / 106; Pulse 97; Resp 18; Pulse Ox 97% on R/A; rg5 21:30 BP 165 / 99; Pulse 93; Resp 17; Pulse Ox 96% on R/A; Pain 8/10; rg5 22:30 BP 156 / 92; Pulse 88; Resp 18; Pulse Ox 97% ; Pain 5/10; rg5 03/27 00:00 BP 157 / 92; Pulse 74; Resp 17; Pulse Ox 97% on R/A; Pain 9/10; rg5 01:15 BP 164 / 91; Pulse 73; Resp 17; Temp 98(O); Pulse Ox 97% on R/A; Pain 8/10; rg5 03:02 BP 176 / 99; Pulse 82; Resp 18; Pulse Ox 97% ; br2 03/26 20:26 Body Mass Index 36.96 (107.05 kg, 170.18 cm) tm6 03/26 20:26 Pain Scale: Adult tm6 21:30 Pain Scale: Adult rg5 22:30 Pain Scale: Adult rg5 03/27 00:00 Pain Scale: Adult rg5 01:15 Pain Scale: Adult rg5 MDM: 03/26 20:17 Medical Screening Exam initiated cp 21:00 Differential diagnosis: appendicitis, bowel obstruction, diverticulitis, non-specific cp abd pain, pancreatitis, Pyelonephritis, Ureterolithiasis, urinary tract infection, constipation, ileus. 03/27 01:01 Data reviewed: vital signs, nurses notes. ED course: Patient signed out to me pending ec2 CT imaging.. 01:02 ED course: Patient with history of small bowel obstruction arrives today for abdominal ec2 pain. Lab work shows nonactionable metabolic profile. Contaminated urine. Lipase within normal ranges, lactic acid within normal ranges, chest x-ray with no acute intra-abdominal process, reassuring CBC. Plan to follow-up CT imaging.. 01:22 ED course: CT abdomen pelvis shows ileus versus possible small bowel obstruction. Will ec2 admit for symptomatic management.. 03/26 20:42 Order name: CBC with Diff; Complete Time: 21:49 cp 03/26 22:29 Interpretation: Reviewed. cp 03/26 20:42 Order name: CMP; Complete Time: 21:49 cp 03/26 22:28 Interpretation: Normal except: GLUC 140; BUN 20; CRE 1.20; GFR 53; AST 13; GLOB 3.7; cp A/G 0.9. 03/26 20:42 Order name: Lipase; Complete Time: 21:49 cp 03/26 20:42 Order name: Urinalysis w/ reflexes; Complete Time: 21:49 cp 03/26 22:28 Interpretation: Normal except: [facility] Extremely Turbid; Urine SG > 1.030; UKET TRACE; cp UPROT 3+; UUROB 2+; UESTR 500; UWBC >50; URBC 11-20; UBACT 20-50; SQEPI 20-50; REEP 5-10; UWBC Clump Occasional; HYAL >20; MUCUS 4+. 03/26 20:42 Order name: Lactate w/ 2H reflex if indic.; Complete Time: 21:49 03/27 01:43 Order name: Urinalysis w/ reflexes EDUT 03/27 01:43 Order name: CBC with Automated Diff EDUT 03/27 01:43 Order name: CBC with Automated Diff EDUT 03/27 01:43 Order name: Comprehensive Metabolic Panel EDUT 03/27 01:43 Order name: Comprehensive Metabolic Panel EDUT 03/26 20:42 Order name: XRAY Chest (1 view); Complete Time: 22:02 03/26 22:02 Interpretation: Report review. 03/26 20:42 Order name: CT Abd/Pelvis - PO and IV Contrast 03/27 01:43 Order name: CONS Physician Consult EDUT 03/26 20:42 Order name: IV Saline Lock; Complete Time: 21:22 cp 03/26 20:42 Order name: Labs collected and sent; Complete Time: 21:22 cp Administered Medications: 03/26 21:21 Drug: Famotidine IVP 20 mg IVP once; dilute with 10 mL 0.9% NaCl; give over 2 minutes rg5 Route: IVP; Site: left antecubital; 21:56 Follow up: Response: No adverse reaction rg5 21:21 Drug: NS 0.9% IV 1000 ml IV at 1 bolus Per protocol; to be given as a bolus over 60 rg5 minutes Route: IV; Rate: 1 bolus; Site: left antecubital; 22:30 Follow up: IV Status: Completed infusion; IV Intake: 1000ml rg5 21:21 Drug: Dicyclomine IM 20 mg IM once Route: IM; Site: left deltoid; rg5 21:56 Follow up: Response: No adverse reaction; Pain is decreased rg5 21:22 Drug: Ondansetron IVP 4 mg IVP once; over 2 minutes Route: IVP; Site: left antecubital; rg5 21:56 Follow up: Response: No adverse reaction rg5 21:55 Drug: HYDROmorphone IVP 1 mg IVP once Route: IVP; Site: left antecubital; rg5 22:00 Follow up: Response: No adverse reaction; Pain is decreased rg5 23:08 Drug: metoCLOPramide IVP 10 mg IVP once; over 1 to 2 minutes Route: IVP; Site: left rg5 antecubital; 03/27 00:04 Follow up: Response: No adverse reaction rg5 01:43 Drug: fentaNYL (PF) IVP 100 mcg IVP once Route: IVP; Site: left antecubital; rg5 02:30 Follow up: Response: No adverse reaction; Pain is decreased br2 03:08 Drug: Ondansetron IVP 4 mg IVP once; over 2 minutes Route: IVP; Site: left antecubital; br2 03:42 Follow up: Response: No adverse reaction; Nausea is decreased; Vomiting decreased br2 Disposition: 01:23 I agree with the assessment and plan of care. I reviewed the patient's care provided by ec2 Advanced Practice Provider \T\ agree w/ the diagnosis \T\ care plan. I personally saw the pt \T\ performed a substantive portion of the visit, incldng all aspects of the (History/Exam/Medical Decision Making). Disposition Summary: 03/27/24 01:23 Hospitalization Ordered Notes: Hospitalization Status: Inpatient Admission ec2 Provider: Ramírez Torres2 [facility] ec2 Condition: Stable ec2 Problem: new ec2 Symptoms: have improved ec2 Bed/Room Type: Standard ec2 Room Assignment: 402(03/27/24 02:32) cg Diagnosis - Ileus vs. Possible Partial Small Bowel Obstruction ec2 Forms: - Medication Reconciliation Form ec2 - SBAR form ec2 - Leadership Thank You Letter ec2 Signatures: Dispatcher [employer] Kam Mae PA PA cp Garcia, Cindy, RN RN Guerrero Rojas MD MD ec2 Luz Maria Irizarry RN RN tm6 Jennifer Ghosh Rommel, RN RN rg5 Sierra Worley RN RN br2 Corrections: (The following items were deleted from the chart) 03/26 20:43 20:43 CBC+H.LAB.BRZ ordered. EDMS EDMS 20:43 20:43 COMPREHENSIVE METABOLIC PANEL+C.LAB.BRZ ordered. EDMS EDMS 20:43 20:43 LIPASE+C.LAB.BRZ ordered. EDMS EDMS 20:43 20:43 Urinalysis+U.LAB.BRZ ordered. EDMS EDMS 20:43 20:43 LACTATE+C.LAB.BRZ ordered. EDMS EDMS 20:43 20:43 Abdomen Pelvis W Con+CT.RAD.BRZ ordered. EDMS EDMS 03/27 01:37 01:23 ec2 vk 01:42 01:37 211 vk cg 02:32 01:42 cg cg
--- NOTE | 2024-03-27 01:26 | RAD REPORT ---
EXAM DESCRIPTION: Abdomen Pelvis W Contrast CLINICAL HISTORY: Abdominal distention;Abd pain;Constipation COMPARISON: 11/30/2023 TECHNIQUE: CT of the abdomen and pelvis performed following administration of IV contrast. This exa m was performed according to our departmental dose-optimization program, which includes automated exposure control, adjustment of the mA and/or kV according to patient size and/or use of iterative re construction technique. FINDINGS: Lung Bases: Minimal bilateral atelectasis. Abdomen: Liver: Normal contour with homogeneous parenchyma. Liver is enlarged. No suspicious mass. Gallbladder: Surgically absent. Mild biliary prominence may be due to postcholecystectomy state. Spleen, Pancreas, and Adrenal Glands: The spleen, pancreas, and adrenal glands are unremarkable. Kidneys: No suspicious mass. No urinary tract calculi. No hydronephrosis. Vasculature: The aorta and IVC have normal caliber and position. The portal vein is patent. The pro ximal visceral and renal arteries are patent. Stomach: The stomach and duodenum have normal course. Other: No free intraperitoneal air. No free fluid or lymphadenopathy. Pelvis: Bladder: Decompressed. Bowel: There are some mildly dilated small bowel loops throughout the abdomen. Normal caliber small bowel loops distally without definite visualized transition point. Moderate stool in the colon. Colon diverticulosis. Appendix: Not definitively visualized. Pelvis: Status post hysterectomy. No mass. Bones: No destructive bone lesions identified. Metallic density foreign bodies in the right acetabulu m and adjacent musculature. Appearance is stable. IMPRESSION: 1. Mildly dilated small bowel loops throughout the abdomen without definite transition point. Findi ngs could reflect ileus or partial small bowel obstruction. 2. Moderate stool in the colon. Colon diverticulosis. 3. Hepatomegaly. Electronically signed by: Demi Seay MD 03/27/2024 01:18 AM [facility] Due to temporary technical issues with the [employer] reporting system, reports are being keiko d by the in-house radiologist without review as a courtesy to ensure prompt reporting the interpreting radiologist is fully responsible for the content of the report. Transcribed Date/Time: 03/27/2024 1:25 AM
[2024-03-27] MEDS ORDERED: ACETAMINOPHEN 325 MG TABLET PO PRN (01:37)
--- NOTE | 2024-03-27 01:37 | P.HP ---
Certification for Inpatient Patient admitted to: Inpatient With expected LOS: >2 Midnights Practitioner: I am a practitioner with admitting privileges, knowledge of patient current condition, hospital course, and medical plan of care. Services: Services provided to patient in accordance with Admission requirements found in Title 42 Section 412.3 of the Code of Federal Regulations Patient History Date of Service: 03/27/24 Reason for admission: Abdominal Pain History of Present Illness: 54 yrs old Female with past medical history of anxiety, Crohn's disease, chronic pain, diabetes, migraine, hypertension, hyperlipidemia, gastroparesis, insomnia, history of pancreatitis, history of spinal stenosis, SBO who was brought to ER with abdominal pain. Pain is diffuse associated with abdominal distention cramping in type, started 1 week ago and has been progressively getting worse associated with nausea and vomiting. Denies any diarrhea. No fever or chills. No sick contacts. No recent travel. Patient was assessed in the ER and had a CTA which was consistent with partial small bowel obstruction and was admitted for further management and surgical consult. Allergies atropine sulfate [From ] Allergy (Intermediate, Verified 12/03/14 01:08) whelps and breathing problems hyoscyamine sulfate [From ] Allergy (Intermediate, Verified 12/03/14 01:08) whelps and breathing problems loratadine [From Claritin] Allergy (Intermediate, Verified 12/03/14 01:08) insomnia morphine Allergy (Intermediate, Verified 12/03/14 01:08) Hives/Rash phenobarbital [From ] Allergy (Intermediate, Verified 12/03/14 01:08) whelps and breathing problems prochlorperazine edisylate [From Compazine] Allergy (Intermediate, Verified 12/03/14 01:08) seizure prochlorperazine maleate [From Compazine] Allergy (Intermediate, Verified 12/03/14 01:08) seizure scopolamine hydrobromide [From ] Allergy (Intermediate, Verified 12/03/14 01:08) whelps and breathing problems meperidine HCl [From Demerol] Adverse Reaction (Verified 12/10/14 09:47) Rash mushrooms Allergy (Severe, Uncoded 12/03/14 01:09) Anaphylaxis Extentabs Allergy (Intermediate, Uncoded 09/06/15 01:09) Anaphylaxis morphine Allergy (Uncoded 12/14/14 14:19) Unknown Home medications list reviewed: Yes Home Medications: Losartan Potassium [Cozaar] 100 mg PO DAILY 12/03/14 Metformin HCl [Glucophage*] 500 mg PO BIDWM 12/03/14 Propranolol HCl [Inderal LA] 60 mg PO DAILY 12/03/14 ARIPiprazole [Abilify*] 2.5 mg PO DAILY #30 tab 12/05/14 Citalopram [Celexa*] 40 mg PO DAILY #30 tablet 12/05/14 clonazePAM [Klonopin*] 0.5 mg PO BID #60 tab 12/05/14 Butorphanol Tartrate 1 spray IH DAILY PRN 10/17/16 Hydrocodone/Acetaminophen [Hydrocodone-Acetamin 10-325 mg] 1 tab PO TID PRN 10/17/16 Tizanidine HCl 1 tab PO BID 10/17/16 Zolpidem Tartrate [Zolpidem Tartrate ER] 1 tab PO BEDTIME 10/17/16 traMADol HCL [Ultram*] 1 tab PO Q8H PRN 10/17/16 - Past Medical/Surgical History Diabetic: Yes Past Medical History: Reviewed- Non-Contributory -: niddm -: crohns -: migraines -: anxiety -: high blood pressure -: chronic pancreatits -: spastic colon -: IBS -: insomnia Past Surgical History: Reviewed- Non-Contributory -: tonsillectomy -: endometriosis -: appy -: hysterectomy -: left knee surgery -: sinus surgery -: I&D due to spider bite -: agnieszka - Family History Family History: Reviewed- Non-Contributory - Family History Father -: Stroke, Cancer Sister -: Heart disease - Social History Smoking Status: Never smoker Alcohol use: No CD- Drugs: No Caffeine use: No Review of Systems 10-point ROS is otherwise unremarkable Physical Examination - Vital Signs Temperature: 97.7 F Blood Pressure: 168/102 Pulse: 98 Respirations: 18 Pulse Ox (%): 94 - Physical Exam General: Alert, Oriented x3, Mild distress, Obese HEENT: Atraumatic, Normocephalic Neck: Supple Respiratory: Clear to auscultation bilaterally, Normal air movement Cardiovascular: No edema, Regular rate/rhythm Capillary refill: <2 Seconds Gastrointestinal: No masses, Distended, Tenderness Musculoskeletal: No clubbing, No swelling Integumentary: No rashes Neurological: Normal speech, Normal strength at 5/5 x4 extr, Cranial nerves 3-12 intact, Normal reflexes 2+ Lymphatics: No axilla or inguinal lymphadenopathy - Studies Laboratory Data (last 24 hrs) 03/26/24 03/26/24 21:00 21:00 WBC 7.90 Hgb 12.4 Hct 38.0 Plt Count 219 Sodium 138 Potassium 3.6 BUN 20 H Creatinine 1.20 H Glucose 140 H Total Bilirubin 0.2 AST 13 L ALT 19 Alkaline Phosphatase 98 Lipase 39 Assessment and Plan - Plan Intractable abdominal pain Intractable Nausea and vomiting IV hydration Pain control Monitor closely Partial small bowel obstruction No transition point Patient started on conservative management for now Surgical consult hypertension Antihypertensives titrated Continue home medications and titrate as needed Hydralazine as needed Hyperlipidemia Continue statin Diabetes Insulin sliding scale Accu-Chek before every meal and at bedtime GI/DVT prophylaxis Advanced directive full code Discharge Plan: Home Plan to discharge in: 48 Hours - Advance Directives Does patient have a Living Will: No Does patient have a Durable POA for Healthcare: No - Code Status/Comfort Care Code Status: Full Code Time Spent Managing Pts Care (In Minutes): 48
[2024-03-27] MEDS ORDERED: FENTANYL CITR 100 MCG/2 ML ONE (01:38)
[2024-03-27] MEDS ORDERED: GLUCAGON 1 MG/VIAL IM PRN (01:41)
[2024-03-27] MEDS ORDERED: D10W 125 ML IV PRN (01:41)
[2024-03-27] MEDS ORDERED: ONDANSETRON 4 MG/2 ML VIAL ONE (03:05)
[2024-03-27] MEDS ORDERED: SODIUM CHLORIDE 0.9% 10ML INJ IV PRN (04:27)
[2024-03-27] MEDS: NA CHLORIDE 0.9% 1,000 ML IV SCH (04:40)
[2024-03-27] MEDS: INSULIN REGULAR (HUMAN) 100 UNIT/ML SQ SCH (06:00)
[2024-03-27 06:07] VITALS: BMI 36.9
[2024-03-27] MEDS: HYDROMORPHONE HCL 0.5 MG/0.5 ML INJ IV PRN (06:12)
[2024-03-27] MEDS: ONDANSETRON 4 MG/2 ML VIAL IV PRN (06:52)
[2024-03-27] MEDS: HYDRALAZINE HCL 20 MG/ML VIAL IV PRN (08:23)
[2024-03-27] MEDS: PANTOPRAZOLE 40 MG INJ IVP SCH (08:23)
[2024-03-27] MEDS: ENOXAPARIN 40 MG/0.4 ML SQ SCH (08:23)
[2024-03-27] MEDS: FLU (Fluarix Triv) TS24-25(6MOS UP)/PF 45 MCG/0.5 ML Syringe IM ONE (11:53)
[2024-03-27] MEDS: PNEUMOCOCCAL VACCINE 0.5 ML IMVAC ONE (12:00)
[2024-03-27] MEDS ORDERED: INSULIN LISPRO 100 UNIT/1 ML SQ SCH (15:30)
[2024-03-27] MEDS: PROMETHAZINE 25 MG TABLET PO PRN (16:55)
[2024-03-27] MEDS: LACTULOSE 20 GM/30 ML UCUP PO SCH (16:55)
[2024-03-27] MEDS: QUETIAPINE 100MG TAB PO SCH (20:01)
[2024-03-27] MEDS: TIZANIDINE 4 MG TABLET PO SCH (20:01)
[2024-03-27] MEDS: ZOLPIDEM TARTRATE 10 MG TABLET PO SCH (20:01)
[2024-03-27] MEDS: LACTULOSE 20 GM/30 ML UCUP PO PRN (20:02)
[2024-03-27] MEDS: INSULIN LISPRO 100 UNIT/1 ML SQ SCH (20:11)
--- NOTE | 2024-03-28 00:44 | P.PN ---
Date of Service: 03/27/24 Subjective patient still having some nausea but overall improved. Imaging studies with fecal impaction. Laxatives. Repeat x-rays in the morning. Physical Examination - Vital Signs reviewed - Physical Exam General: Alert, Oriented x3, Mild distress, Obese Respiratory: Clear to auscultation bilaterally, Normal air movement Cardiovascular: No edema, Regular rate/rhythm Gastrointestinal: No masses, Distended, Tenderness Musculoskeletal: No clubbing, No swelling Neurological: no focal deficits Assessment and Plan - Assessment/Plan 1. Intractable abdominal pain; intractable nausea and vomiting- continue with IV fluids; continue with pain control. Continue with anti emetics. Repeat imaging in the morning. 2. Partial small bowel obstruction; Most likely related to fecal impaction; will give laxative and reassess in a.m.. 3. Hypertension; continue with antihypertensives 4. Hyperlipidemia; continue statin 5. Diabetes; insulin sliding scale 6. GI/DVT prophylaxis Advanced directive full code Discharge Plan: Home Plan to discharge in: 48 Hours
[2024-03-28] MEDS: cloNIDine HCL 0.1 MG TAB PO ONE (01:04)
[2024-03-28 06:33] LABS: Albumin 2.9 g/dL (3.4-5.0); Albumin/Globulin Ratio 0.8 (1.1-1.8); Bilirubin Total 0.3 mg/dL (0.2-1.0); Globulin 3.7 g/dL (2.3-3.5); Phosphorus 3.3 mg/dL (2.5-4.9); Protein, Total 6.6 g/dL (6.4-8.2)
[2024-03-28 07:31] LABS: Absolute Eosinophils 0.1 K/uL (0-0.5); Absolute Lymphocytes (CBC) 2.5 K/uL (0.7-4.9); Absolute Monocytes 0.6 K/uL (0.1-1.3); Absolute Neutrophil 2.5 K/uL (1.8-8.0); Basophils % 0.4 % (0-1.3); Eosinophils % 1.6 % (0-4.4); Hematocrit 36.8 % (36.0-45.0); Hemoglobin 11.7 g/dL (12.0-15.0); Lymphocytes % 44.5 % (15.3-44.8); MCH 26.9 pg (27.0-35.0); MCHC 31.7 g/dL (32.0-36.0); MCV 84.9 fL (80-100); Neutrophils % 43.5 % (41.7-73.7); Platelets 221 thou/uL (152-406); RBC Red Blood Cell Count 4.33 M/uL (3.86-4.86); Red Cell Distribution Width 14.7 % (12.1-15.2)
--- NOTE | 2024-03-28 07:42 | RAD REPORT ---
EXAM: XR of the abdomen HISTORY: Abdominal pain Partial small-bowel obstruction/ileus COMPARISON: None FINDINGS: XR of the abdomen shows a nonspecific, nonobstructive bowel gas pattern. Significant fecal retention in the colon. No suspicious calcifications are seen. The bones are unremarkable. IMPRESSION: Moderate constipation.
[2024-03-28] MEDS: METOCLOPRAMIDE 10 MG/2mL INJ IV SCH (08:33)
[2024-03-28] MEDS: LOSARTAN POTASSIUM 50 MG TABLET PO SCH (08:35)
[2024-03-28] MEDS: LINACLOTIDE 145 MCG PO SCH (08:36)
[2024-03-28] MEDS: LACTULOSE 20 GM/30 ML UCUP PO SCH (08:51)
[2024-03-28] MEDS: BISACODYL 10 MG RECTAL SUPP PR PRN (09:49)
--- NOTE | 2024-03-28 14:25 | P.PN ---
Subjective Date of Service: 03/28/24 Chief Complaint: Abdominal Pain Subjective: No new changes Patient still complaining of diffuse abdominal pain and nausea but no vomiting. She has not had any bowel movement in spite of the laxatives as needed since admission. She states that her Crohn's disease is in remission for the past 8 months, currently not taking any treatment, never had a surgery for Crohn's but multiple abdominal surgery including cholecystectomy, laparoscopic LYSIS OF ENDOMETRIOSIS. She suffered chronic diarrhea then chronic constipation Review of Systems Other: Consitutional; fever(-), chills (-), rigor(-), night sweat(-), unintentional weight loss(-), malaise (-) HEENT; diplopia (-), rhinorrhea (-), epistaxis (-), otorrhea (-), otalgia (-) Respiratory; shortness of breath (-), wheezing (-), cough (-), sputum (-), pleuritic chest pain (-) Cardiovascular; chest pain (-), peripheral edema (-), paroxysmal nocturnal dyspnea (-), orthopnea (-) Gastrointestinal; nausea (+), vomiting (-), abdominal pain (+), diarrhea (-), c onstipation (+), melena (-), hematochezia (-) Genitourinary; urinary frequency (-), dysuria (-), urgency (-), flank pain (-), gross hematuria (-), incontinence (-) Skin; rash (-), pruritus (-) 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 General: Morbidly obese, not acutely ill looking, in no apparent distress,. HEENT: Normocephalic, atraumatic, nonicteric sclera, nonanemic conjunctive. Neck: Supple, without JVD or goiter or thyroid mass. Respiratory: Normal breathing effort, clear to auscultation bilaterally, no crackles no wheezing or rhonchi. Cardiovascular: Regular rate and rhythm, S1, S2 normal, no murmur no gallop. Gastrointestinal: Multiple old operation scars in midline, distended, mild tender, decreased bowel sound , No ascites, , No masses, no hepatosplenomegaly. Extremities : No clubbing, No peripheral edema, full range of motion, no deformity, no muscle atrophy. Integumentary: No rashes, petechia, suspected lesions. Lymphatics: No axilla or cervical lymphadenopathy. Neurology; alert awake oriented x3, no focal neurologic deficit, normal affection . mood and behavior. Assessment And Plan - Plan 54 yrs old Female with past medical history of anxiety, Crohn's disease in remission, chronic pain, diabetes, migraine, hypertension, hyperlipidemia, gastroparesis, insomnia, history of pancreatitis, history of spinal stenosis, SBO who was brought to ER with abdominal pain. Pain is diffuse associated with abdominal distention cramping in type, started 1 week ago and has been progressi vely getting worse Patient was assessed in the ER and had a CTA which was consistent with partial small bowel obstruction and was admitted for further management and surgical consult. #1 partial small bowel obstruction secondary to postoperative adhesion band or severe obstipation CT of abdomen and pelvis on admission personally reviewed large fecal burden throughout the colon, mildly dilated small bowel, No surgical intervention indicated, will change laxative to scheduled dose and Dulcolax suppository, will order enema if no success Continue clear liquid diet as tolerated.
[2024-03-28 23:32] VITALS: O2SAT 98
--- NOTE | 2024-03-29 10:43 | P.PN ---
Subjective Date of Service: 03/29/24 Chief Complaint: Abdominal Pain Subjective: Improving She had a small amount bowel movement yesterday, hard stool no rectal bleeding. Enema offered but patient wants to try Dulcolax suppository again. She is complaining of nausea but no vomiting tolerating oral diet well. Review of Systems Other: Consitutional; fever(-), chills (-), rigor(-), night sweat(-), unintentional weight loss(-), malaise (-) HEENT; diplopia (-), rhinorrhea (-), epistaxis (-), otorrhea (-), otalgia (-) Respiratory; shortness of breath (-), wheezing (-), cough (-), sputum (-), pleuritic chest pain (-) Cardiovascular; chest pain (-), peripheral edema (-), paroxysmal nocturnal dyspnea (-), orthopnea (-) Gastrointestinal; nausea (+), vomiting (-), abdominal pain (-), diarrhea (-), constipation (+), melena (-), hematochezia (-) Genitourinary; urinary frequency (-), dysuria (-), urgency (-), flank pain (-), gross hematuria (-), incontinence (-) Skin; rash (-), pruritus (-) 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 General: Morbidly obese, not acutely ill looking, in no apparent distress,. HEENT: Normocephalic, atraumatic, nonicteric sclera, nonanemic conjunctive. Neck: Supple, without JVD or goiter or thyroid mass. Respiratory: Normal breathing effort, clear to auscultation bilaterally, no crackles no wheezing or rhonchi. Cardiovascular: Regular rate and rhythm, S1, S2 normal, no murmur no gallop. Gastrointestinal: Multiple old operation scars in midline, distended, soft, mild tender, decreased bowel sound , No ascites, , No masses, no hepatosplenomegaly. Extremities : No clubbing, No peripheral edema, full range of motion, no deformity, no muscle atrophy. Integumentary: No rashes, petechia, suspected lesions. Lymphatics: No axilla or cervical lymphadenopathy. Neurology; alert awake oriented x3, no focal neurologic deficit, normal affection . mood and behavior. Assessment And Plan - Plan 54 yrs old Female with past medical history of anxiety, Crohn's disease in remission, chronic pain, diabetes, migraine, hypertension, hyperlipidemia, gastroparesis, insomnia, history of pancreatitis, history of spinal stenosis, SBO who was brought to ER with abdominal pain. Pain is diffuse associated with abdominal distention cramping in type, started 1 week ago and has been progressively getting worse Patient was assessed in the ER and had a CTA which was consistent with partial small bowel obstruction and was admitted for further management and surgical consult. #1 partial small bowel obstruction secondary to postoperative adhesion band or severe obstipation CT of abdomen and pelvis on admission personally reviewed large fecal burden throughout the colon, mildly dilated small bowel, No surgical intervention indicated, will keep on scheduled laxative and Dulcolax suppository, will order enema if no success Continue clear liquid diet as tolerated.
--- NOTE | 2024-03-30 11:51 | P.PN ---
Subjective Date of Service: 03/30/24 Chief Complaint: Abdominal Pain Subjective: No new changes He only have a small amount of bowel movement after repeat Dulcolax suppository, she is complaining of vomiting x 1 today. Review of Systems Other: Consitutional; fever(-), chills (-), rigor(-), night sweat(-), unintentional weight loss(-), malaise (-) HEENT; diplopia (-), rhinorrhea (-), epistaxis (-), otorrhea (-), otalgia (-) Respiratory; shortness of breath (-), wheezing (-), cough (-), sputum (-), pleuritic chest pain (-) Cardiovascular; chest pain (-), peripheral edema (-), paroxysmal nocturnal dyspnea (-), orthopnea (-) Gastrointestinal; nausea (-), vomiting (+), abdominal pain (+), diarrhea (-), constipation (-), melena (-), hematochezia (-) Genitourinary; urinary frequency (-), dysuria (-), urgency (-), flank pain (-), gross hematuria (-), incontinence (-) Skin; rash (-), pruritus (-) 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 General: Morbidly obese, not acutely ill looking, in no apparent distress,. HEENT: Normocephalic, atraumatic, nonicteric sclera, nonanemic conjunctive. Neck: Supple, without JVD or goiter or thyroid mass. Respiratory: Normal breathing effort, clear to auscultation bilaterally, no crackles no wheezing or rhonchi. Cardiovascular: Regular rate and rhythm, S1, S2 normal, no murmur no gallop. Gastrointestinal: Multiple old operation scars in midline, distended, soft, mild tender, decreased bowel sound , No ascites, , No masses, no hepatosplenomegaly. Extremities : No clubbing, No peripheral edema, full range of motion, no deformity, no muscle atrophy. Integumentary: No rashes, petechia, suspected lesions. Lymphatics: No axilla or cervical lymphadenopathy. Neurology; alert awake oriented x3, no focal neurologic deficit, normal affection . mood and behavior. Assessment And Plan - Plan 54 yrs old Female with past medical history of anxiety, Crohn's disease in remission, chronic pain, diabetes, migraine, hypertension, hyperlipidemia, gastroparesis, insomnia, history of pancreatitis, history of spinal stenosis, SBO who was brought to ER with abdominal pain. Pain is diffuse associated with abdominal distention cramping in type, started 1 week ago and has been progressively getting worse Patient was assessed in the ER and had a CTA which was consistent with partial small bowel obstruction and was admitted for further management and surgical consult. #1 partial small bowel obstruction secondary to postoperative adhesion band or severe obstipation CT of abdomen and pelvis on admission personally reviewed large fecal burden throughout the colon, mildly dilated small bowel, No surgical intervention indicated, will keep on scheduled laxative and Dulcolax suppository, will order enema this afternoon, I will order a follow-up KUB tomorrow morning Continue clear liquid diet as tolerated.
[2024-03-31 06:33] LABS: Anion Gap 11.5 mEq/L (5.0-15.0); Potassium 3.5 mEq/L (3.5-5.1)
--- NOTE | 2024-03-31 07:33 | RAD REPORT ---
Exam:Abdomen 1 View (KUB) Clinical history: Abdominal pain FINDINGS: The bowel gas pattern is unremarkable A moderate amount of stool is present throughout the colon
[2024-03-31] MEDS: POTASSIUM CL SA 10 MEQ TAB PO ONE (07:42)
[2024-03-31] MEDS: MINERAL OIL ENEMA 135 ML BTL PR SCH (11:40)
--- NOTE | 2024-03-31 12:29 | P.PN ---
Subjective Date of Service: 03/31/24 Chief Complaint: Abdominal Pain Subjective: No new changes She reports that she only have a small amount of bowel movement after stopped enema yesterday, will to have another enema today. Denied any nausea and vomiting Review of Systems Other: Consitutional; fever(-), chills (-), rigor(-), night sweat(-), unintentional weight loss(-), malaise (-) HEENT; diplopia (-), rhinorrhea (-), epistaxis (-), otorrhea (-), otalgia (-) Respiratory; shortness of breath (-), wheezing (-), cough (-), sputum (-), pleuritic chest pain (-) Cardiovascular; chest pain (-), peripheral edema (-), paroxysmal nocturnal dyspnea (-), orthopnea (-) Gastrointestinal; nausea (-), vomiting (-), abdominal pain (-), diarrhea (-), constipation (-), melena (-), hematochezia (-) Genitourinary; urinary frequency (-), dysuria (-), urgency (-), flank pain (-), gross hematuria (-), incontinence (-) Skin; rash (-), pruritus (-) 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 General: Morbidly obese, not acutely ill looking, in no apparent distress,. HEENT: Normocephalic, atraumatic, nonicteric sclera, nonanemic conjunctive. Neck: Supple, without JVD or goiter or thyroid mass. Respiratory: Normal breathing effort, clear to auscultation bilaterally, no crackles no wheezing or rhonchi. Cardiovascular: Regular rate and rhythm, S1, S2 normal, no murmur no gallop. Gastrointestinal: Multiple old operation scars in midline, distended, soft, mild tender, decreased bowel sound , No ascites, , No masses, no hepatosplenomegaly. Extremities : No clubbing, No peripheral edema, full range of motion, no deformity, no muscle atrophy. Integumentary: No rashes, petechia, suspected lesions. Lymphatics: No axilla or cervical lymphadenopathy. Neurology; alert awake oriented x3, no focal neurologic deficit, normal affection . mood and behavior. Assessment And Plan - Plan 54 yrs old Female with past medical history of anxiety, Crohn's disease in remission, chronic pain, diabetes, migraine, hypertension, hyperlipidemia, gastroparesis, insomnia, history of pancreatitis, history of spinal stenosis, SBO who was brought to ER with abdominal pain. Pain is diffuse associated with abdominal distention cramping in type, started 1 week ago and has been progressively getting worse Patient was assessed in the ER and had a CTA which was consistent with partial s mall bowel obstruction and was admitted for further management and surgical consult. #1 partial small bowel obstruction secondary to postoperative adhesion band and severe obstipation CT of abdomen and pelvis on admission personally reviewed large fecal burden throughout the colon, mildly dilated small bowel, A follow-up KUB this morning personally reviewed, nonobstructive bowel gas pattern, loss of stool throughout the colon No surgical intervention indicated, will keep on scheduled laxative and Dulcolax suppository, will order mineral oil enema today this afternoon, Continue clear liquid diet as tolerated.
[2024-04-01 07:46] LABS: Albumin 2.9 g/dL (3.4-5.0); Albumin/Globulin Ratio 0.8 (1.1-1.8); Anion Gap 6.7 mEq/L (5.0-15.0); Bilirubin Total 0.3 mg/dL (0.2-1.0); Globulin 3.6 g/dL (2.3-3.5); Magnesium 1.8 mg/dL (1.6-2.4); Phosphorus 3.9 mg/dL (2.5-4.9); Potassium 3.7 mEq/L (3.5-5.1); Protein, Total 6.5 g/dL (6.4-8.2)
[2024-04-01 08:22] VITALS: BP 151/78; TEMP 99.2
--- NOTE | 2024-04-01 09:30 | P.DS ---
Admission Date: 03/27/24 Discharge Date: 04/01/24 Disposition: ROUTINE DISCHARGE Discharge Condition: GOOD Reason for Admission: Abdominal Pain Brief History of Present Illness: 54 yrs old Female with past medical history of anxiety, Crohn's disease in remission, chronic pain, diabetes, migraine, hypertension, hyperlipidemia, gastroparesis, insomnia, history of pancreatitis, history of spinal stenosis, SBO who was brought to ER with abdominal pain. Pain is diffuse associated with abdominal distention cramping in type, started 1 week ago and has been progressively getting worse Patient was assessed in the ER and had a CTA which was consistent with partial small bowel obstruction and was admitted for further management and surgical consult. Hospital Course: Her main medical problem was obstipation with fecal impaction. She was not responding to laxatives or suppositories or IV metoclopramide but reluctant to enema. Finally patient agreed to enema and had moderate amount of rockhard stool evacuated with Fleet mineral enema. She has been passing gas and tolerating oral diet well but complaining of intermittent cramping abdominal pain and taking hydromorphone as needed IV. She fell a lot better and no sign of bowel obstruction clinically and radiologically after hard bowel movements. She is being discharged home. She was instructed to use a Fleet mineral enema at home every other day and follow-up with speech and language assistant for further evaluation and management of severe obstipation with fecal impaction #1 partial small bowel obstruction secondary to postoperative adhesion band and severe obstipation secondary to suspected diabetic autonomic neuropathy CT of abdomen and pelvis on admission large fecal burden throughout the colon, mildly dilated small bowel, A follow-up KUB, nonobstructive bowel gas pattern, loss of stool throughout the colon #2 type 2 diabetes Her latest hemoglobin A1c 8.1 in March 2023, good glycemic control achieved during hospitalization on preprandial lispro 10 units x 3 without any hypoglycemic episode 3. Hypertension Her blood pressure was well-controlled on losartan. Vital Signs/Physical Exam: Temp Pulse Resp BP Pulse Ox 99.2 F 94 H 20 151/78 H 95 04/01/24 08:00 04/01/24 08:00 04/01/24 08:00 04/01/24 08:00 04/01/24 08:00 Other Physical/Emotional Findings: - Physical Exam. General: Morbidly obese, not acutely ill looking, in no apparent distress,. HEENT: Normocephalic, atraumatic, nonicteric sclera, nonanemic conjunctive. Neck: Supple, without JVD or goiter or thyroid mass. Respiratory: Normal breathing effort, clear to auscultation bilaterally, no crackles no wheezing or rhonchi. Cardiovascular: Regular rate and rhythm, S1, S2 normal, no murmur no gallop. Gastrointestinal: Multiple old operation scars in midline, distended, soft, mild tender, decreased bowel sound , No ascites, , No masses, no hepatosplenomegaly. Extremities : No clubbing, No peripheral edema, full range of motion, no deformity, no muscle atrophy. Integumentary: No rashes, petechia, suspected lesions. Lymphatics: No axilla or cervical lymphadenopathy. Neurology; alert awake oriented x3, no focal neurologic deficit, normal affection . mood and behavior. Laboratory Data at Discharge: WBC 5.70 thou/uL (4.3-10.9) 03/28/24 07:16 Hgb 11.7 g/dL (12.0-15.0) L 03/28/24 07:16 Hct 36.8 % (36.0-45.0) 03/28/24 07:16 Plt Count 221 thou/uL (152-406) 03/28/24 07:16 Sodium 137 mEq/L (136-145) 04/01/24 07:13 Potassium 3.7 mEq/L (3.5-5.1) 04/01/24 07:13 BUN 5 mg/dL (7-18) L 04/01/24 07:13 Creatinine 0.78 mg/dL (0.55-1.02) 04/01/24 07:13 Glucose 157 mg/dL (74-106) H 04/01/24 07:13 Phosphorus Cancelled 04/01/24 Unknown Magnesium 1.8 mg/dL (1.6-2.4) 04/01/24 07:13 Total Bilirubin 0.3 mg/dL (0.2-1.0) 04/01/24 07:13 AST 13 U/L (15-37) L 04/01/24 07:13 ALT 19 U/L (13-56) 04/01/24 07:13 Alkaline Phosphatase 76 U/L (45-117) 04/01/24 07:13 Lipase 39 U/L (13-75) 03/26/24 21:00 Home Medications: Tizanidine HCl 1 tab PO BID 10/17/16 Insulin Aspart [Novolog Flexpen] 10 units SQ TID 03/27/24 Linaclotide [Linzess] 145 mcg PO DAILY 03/27/24 Losartan Potassium 50 mg PO DAILY 03/27/24 Ondansetron [Zofran (Odt)*] 4 mg PO Q6HP PRN 03/27/24 Promethazine Tab [Phenergan*] 1 tab PO BID PRN 03/27/24 Quetiapine [Seroquel*] 300 mg PO BID 03/27/24 Zolpidem Tartrate [Ambien*] 10 mg PO BEDTIME 03/27/24 Linaclotide [Linzess] 145 mcg PO DAILY 04/01/24 Mineral Oil Enema [Fleet Mineral Oil Enema] 133 ml RC DAILY PRN #10 btl 04/01/24 New Medications: Mineral Oil Enema [Fleet Mineral Oil Enema] 133 ml RC DAILY PRN #10 btl PRN Reason: Constipation Diet: ADA Activity: Ad tracy Followup: Gregorio Jaimes MD [Primary Care Provider] - rGegorio Minaya MD [ASSOCIATE-ACTIVE - CAN ADMIT] -
[2024-04-01] MEDS: POTASSIUM CL SA 10 MEQ TAB PO ONE (10:11)
== END 2024-04-01 11:25 | disposition home or self-care (01) | DRG 390 ==
LOC: ER 20:14 → ERHOLD 03-27 01:37 → 4TH 03-27 02:33
PROVIDERS: ADMIT Family Medicine; ATTEND Internal Medicine
DX: K91.31 Postprocedural partial intestinal obstruction (principal); I10 Essential (primary) hypertension; E78.00 Pure hypercholesterolemia, unspecified; E11.40 Type 2 diabetes mellitus with diabetic neuropathy, unspecified; E66.01 Morbid (severe) obesity due to excess calories; Z88.5 Allergy status to narcotic agent; Z88.1 Allergy status to other antibiotic agents; Z88.8 Allergy status to other drugs, medicaments and biological substances; Z68.36 Body mass index [BMI] 36.0-36.9, adult; Z79.84 Long term (current) use of oral hypoglycemic drugs; Z90.49 Acquired absence of other specified parts of digestive tract; Z79.899 Other long term (current) drug therapy; Z90.710 Acquired absence of both cervix and uterus
CPT/HCPCS: 36415; 71045; 74018; 74019; 74177; 80048; 80053; 81001; 82947; 83605; 83690; 83735; 84100; 85025; 96361; 96372; 96374; 96375; 99285; J0360; J0500; J1171; J1650; J2405; J2470; J2765; J3010; J7030; Q0169; Q9967

== ENCOUNTER 2024-06-13 16:18 | Emergency (ER) | payer OTHER ==
[2024-06-13] MEDS ORDERED: ONDANSETRON 4 MG/2 ML VIAL ONE (17:26)
[2024-06-13] MEDS ORDERED: NA CHLORIDE 0.9% 1,000 ML ONE (17:27)
[2024-06-13 17:48] LABS: Specific Gravity 1.022 (1.005-1.030); Sqamous Epithelial <5 /HPF (None Seen); Urine Bacteria None Seen /HPF (<20); Urine Bilirubin NEGATIVE (Negative); Urine Blood Negative (Negative); Urine Clarity Turbid (Clear); Urine Color Light-Yellow (Yellow); Urine Culture Reflex Order NOT NEEDED; Urine Glucose NEGATIVE (Negative); Urine Ketones NEGATIVE (Negative); Urine Microscopic Reflex YN ORDER UMIC; Urine Nitrite NEGATIVE (Negative); Urine Protein TRACE (Negative); Urine RBC <5 /HPF (None Seen); Urine Urobilinogen Normal (Normal); Urine WBC Clump Rare /HPF (None Seen); Urine Yeast (Budding) Trace /HPF (None Seen); Urine pH 6.5 (5.0-7.0)
[2024-06-13 18:27] LABS: Absolute Eosinophils 0.1 K/uL (0-0.5); Absolute Lymphocytes (CBC) 2.3 K/uL (0.7-4.9); Absolute Monocytes 0.6 K/uL (0.1-1.3); Absolute Neutrophil 3.6 K/uL (1.8-8.0); Basophils % 0.5 % (0-1.3); Eosinophils % 1.1 % (0-4.4); Hematocrit 37.4 % (36.0-45.0); Hemoglobin 12.6 g/dL (12.0-15.0); Lymphocytes % 34.7 % (15.3-44.8); MCHC 33.6 g/dL (32.0-36.0); MCV 83.4 fL (80-100); Monocytes % 9.2 % (3.3-12.3); Neutrophils % 54.5 % (41.7-73.7); Nucleated Red Blood Cells % 0.1 % (0-0); Platelets 217 thou/uL (152-406); RBC Red Blood Cell Count 4.48 M/uL (3.86-4.86); Red Cell Distribution Width 15.2 % (12.1-15.2)
[2024-06-13 18:43] LABS: Albumin 3.2 g/dL (3.4-5.0); Albumin/Globulin Ratio 0.8 (1.1-1.8); Anion Gap 11.6 mEq/L (5.0-15.0); Bilirubin Total 0.2 mg/dL (0.2-1.0); Globulin 4.1 g/dL (2.3-3.5); Potassium 3.6 mEq/L (3.5-5.1); Protein, Total 7.3 g/dL (6.4-8.2)
--- NOTE | 2024-06-13 19:06 | RAD REPORT ---
EXAMINATION: CT ABDOMEN AND PELVIS WITH CONTRAST CLINICAL INDICATION: Female, 54 years old.ABD PAIN TECHNIQUE: CT abdomen and pelvis was performed, after the administration of IV contrast, as per depar tment protocol. Axial, sagittal and coronal reconstructions were obtained. One or more of the following dose reduction techniques were used: Automated exposure control, adjustment of the mA and/o r kV according to patient size, and/or iterative reconstruction. Unless otherwise specified, incidental findings do not require dedicated imaging follow-up. [id number]. COMPARISON: 03/26/2024 FINDINGS: LOWER CHEST: Trace bilateral pleural effusions and associated atelectasis.No significant pericardial effusion. Mild coronary artery calcifications.Mild circumferential thickening of the distal esophagus which could reflect esophagitis. Small pericardial effusion. UPPER GI: No significant abnormality. LIVER: Hepatomegaly with steatosis. GALLBLADDER/BILE DUCTS: Cholecystectomy. Mild extra-hepatic biliary ductal dilatation is likely relat ed to the post-cholecystectomy state. Consider correlating with LFT's.?Trace pneumobilia the common bile duct. PANCREAS: No mass, ductal dilation, or bharathi-pancreatic fluid. SPLEEN: Unremarkable. ADRENALS: No adrenal masses. KIDNEYS AND URETERS: No hydronephrosis.No suspicious renal mass.No renal calculi. ABDOMINAL AORTA AND OTHER VESSELS: Normal caliber aorta and IVC. PERITONEUM: No abnormal free fluid. No free air. LYMPH NODES: No pathologic lymphadenopathy. ABDOMINAL WALL: Small fat-containing ventral hernia. SMALL BOWEL/COLON: Small bowel has normal course and caliber. No colonic wall thickening or pericolon ic inflammatory changes.Normal appendix. Mild diverticulosis without diverticulitis. Moderate formed stool burden. URINARY BLADDER: Underdistended but grossly unremarkable. REPRODUCTIVE ORGANS: Uterus surgically absent. No adnexal abnormality. MUSCULOSKELETAL: No acute or suspicious osseous abnormality. ADDITIONAL FINDINGS: Shrapnel at the right hip. IMPRESSION: No acute findings within the abdomen or pelvis. No bowel obstruction. Ancillary findings as noted above.
--- NOTE | 2024-06-13 19:09 | EDPHYS ---
Physician Documentation [facility] Name: Elly Clarke Age: 54 yrs Sex: Female : 1970 Arrival Date: 06/13/2024 Time: 16:18 Bed 5 Private MD: ED Physician Zac Parker HPI: 06/13 16:56 This 54 yrs old Female presents to ER via Ambulatory with complaints of Abdominal Pain, sp3 Vomiting. 16:56 54-year-old female with a history of prior SBO and ileus, chronic abdominal pain sp3 multiple prior visits, diabetes, hyperlipidemia, anxiety now presents to the ED with recurrent abdominal pain and vomiting. She states this episode started over the last 24 hours. No blood or mucus reported. She denies any headache, fever, URI symptoms, chest pain, shortness breath, back pain, dysuria, visualized hematuria, syncope, near syncope, focal neurological deficit, travel history, diarrhea, known sick contacts, prolonged immobilization, or any other signs or symptoms on ROS at this time.. 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 LMP N/A - Hysterectomy, Not cm10 Historical: - Allergies: 16:26 Claritin (insomnia); ll1 16:26 Compazine (Seizures); ll1 16:26 Demerol (HEART RACING); ll1 16:26 (Hives); ll1 16:26 Morphine (RACING HEART); ll1 - PMHx: 16:26 Arthritis; Anxiety; Dramatic migraine events; Diabetes - NIDDM; High Cholesterol; ll1 insomnia; bowel obstruction (Anxiety); spinal stenosis; Chronic pain; Pancreatitis; Migraines; Hypertension; Gastroparesis; Chrohns; - PSHx: 16:26 mass removed from breast; Knee sx x 2; Tonsillectomy; Total abdominal hysterectomy; ll1 Cholecystectomy; tumor removed from septum; - Immunization history:: Adult Immunizations up to date. - Infectious Disease History:: Denies. - Social history:: Smoking status: Patient denies any tobacco usage or history of. ROS: 16:58 Constitutional: Negative for fever, chills, and weight loss, Eyes: Negative for injury, sp3 pain, redness, and discharge, ENT: Negative for injury, pain, and discharge, Neck: Negative for injury, pain, and swelling, Cardiovascular: Negative for chest pain, palpitations, and edema, Respiratory: Negative for shortness of breath, cough, wheezing, and pleuritic chest pain, Back: Negative for injury and pain, MS/Extremity: Negative for injury and deformity, Skin: Negative for injury, rash, and discoloration, Neuro: Negative for headache, weakness, numbness, tingling, and seizure, Psych: Negative for depression, anxiety, suicide ideation, homicidal ideation, and hallucinations, Allergy/Immunology: Negative for hives, rash, and allergies, Endocrine: Negative for neck swelling, polydipsia, polyuria, polyphagia, and marked weight changes, 16:58 All other systems are negative, Exam: 16:58 Constitutional: This is a well developed, well nourished patient who is awake, alert, sp3 and in no acute distress. Head/Face: Normocephalic, atraumatic. Eyes: Pupils equal round and reactive to light, extra-ocular motions intact. Lids and lashes normal. Conjunctiva and sclera are non-icteric and not injected. Cornea within normal limits. Periorbital areas with no swelling, redness, or edema. Neck: Trachea midline, no thyromegaly or masses palpated, and no cervical lymphadenopathy. Supple, full range of motion without nuchal rigidity, or vertebral point tenderness. No Meningismus. Chest/axilla: Normal chest wall appearance and motion. Nontender with no deformity. No lesions are appreciated. Cardiovascular: Regular rate and rhythm with a normal S1 and S2. No gallops, murmurs, or rubs. Normal PMI, no JVD. No pulse deficits. Respiratory: Lungs have equal breath sounds bilaterally, clear to auscultation and percussion. No rales, rhonchi or wheezes noted. No increased work of breathing, no retractions or nasal flaring. Back: No spinal tenderness. No costovertebral tenderness. Full range of motion. Skin: Warm, dry with normal turgor. Normal color with no rashes, no lesions, and no evidence of cellulitis. MS/ Extremity: Pulses equal, no cyanosis. Neurovascular intact. Full, normal range of motion. Neuro: Awake and alert, GCS 15, oriented to person, place, time, and situation. Cranial nerves II-XII grossly intact. Motor strength 5/5 in all extremities. Sensory grossly intact. Cerebellar exam normal. Normal gait. Psych: Awake, alert, with orientation to person, place and time. Behavior, mood, and affect are within normal limits. 16:58 Abdomen/GI: Mild diffuse pain to palpation without peritoneal signs, rebound or guarding. No distention noted., Vital Signs: 16:25 BP 123 / 92; Pulse 116; Resp 22; Temp 97.4; Pulse Ox 100% ; Weight 106.14 kg; Height 5 ll1 ft. 7 in. ; Pain 8/10; 18:30 BP 137 / 85; Pulse 95; Resp 16; Pulse Ox 94% ; cm10 19:00 BP 146 / 88; Pulse 90; Resp 15; Pulse Ox 96% ; cm10 16:25 Body Mass Index 36.65 (106.14 kg, 170.18 cm) ll1 16:25 Pain Scale: Adult ll1 MDM: 16:38 Medical Screening Exam initiated sp3 16:59 Data reviewed: vital signs, nurses notes, old medical records, lab test result(s), sp3 radiologic studies. ED course: 54-year-old female with PMH above now with recurrent abdominal pain. Differential diagnosis includes chronic abdominal pain, SBO, ileus, other abdominal pathology, colitis, among others. I am not highly suspicious of pathology, METHODS TIME ANALYST pathology, aortic or vascular pathology, or any other critical process at this time. Workup will include CT scan of the abdomen pelvis, general labs, UA and general supportive care with IV fluids and ondansetron. Patient's heart rate 116 with normal blood pressure. Disposition pending workup patient course.. 19:08 ED course: Negative CT scan of the abdomen. Labs within normal limits. We will safely sp3 discharge patient home at this time. Bentyl Rx will be given.. 06/13 16:37 Order name: CBC with Diff; Complete Time: 18:50 sp3 06/13 16:37 Order name: CMP; Complete Time: 18:50 sp3 06/13 16:37 Order name: Lipase; Complete Time: 18:50 sp3 06/13 16:37 Order name: Urinalysis w/ reflexes; Complete Time: 18:20 sp3 06/13 16:37 Order name: Lactate w/ 2H reflex if indic.; Complete Time: 18:50 sp3 06/13 16:37 Order name: CT Abd/Pelvis - IV Contrast Only; Complete Time: 19:07 sp3 06/13 16:37 Order name: IV Saline Lock; Complete Time: 18:25 sp3 06/13 16:37 Order name: Labs collected and sent; Complete Time: 18:25 sp3 Administered Medications: 18:26 Drug: NS 0.9% IV 1000 ml IV at 1 bolus Per protocol; to be given as a bolus over 60 cm10 minutes Route: IV; Rate: 1 bolus; Site: left upper arm; 19:19 Follow up: Response: No adverse reaction; IV Status: Completed infusion; IV Intake: cm10 1000ml 18:30 Drug: Ondansetron IVP 4 mg IVP once; over 2 minutes Route: IVP; Site: left upper arm; cm10 19:20 Follow up: Response: No adverse reaction cm10 Disposition Summary: 06/13/24 19:08 Discharge Ordered Notes: Location: Home sp3 Condition: Stable sp3 Diagnosis - Abdominal pain sp3 Followup: sp3 - With: Private Physician - When: Upon discharge from the Emergency Department - Reason: Recheck today's complaints Discharge Instructions: - Discharge Summary Sheet sp3 - Abdominal Pain, Adult sp3 Forms: - Medication Reconciliation Form sp3 - Antibiotic Education sp3 - Prescription Opioid Use sp3 - Patient Portal Instructions sp3 - Leadership Thank You Letter sp3 Prescriptions: - dicyclomine 20 mg Oral tablet - take 1 tablet ORAL route 3 times per day; 20 tablet; Refills: 0, Product sp3 Selection Permitted Signatures: Dispatcher [employer] Dimas Lo RN RN ll1 Shirley Pelaez RN RN ld1 Zac Parker MD MD sp3 Luciana Boykin RN RN cm10
--- NOTE | 2024-06-13 19:09 | ER ---
Nurse's Notes [facility] Name: Elly Clarke Age: 54 yrs Sex: Female : 1970 Arrival Date: 06/13/2024 Time: 16:18 Bed 5 Private MD: Diagnosis: Abdominal pain Presentation: 06/13 16:25 Chief complaint: Patient states: Abdominal pain with N/V for 3 days. No fever. ll1 Coronavirus screen: Client denies travel out of the [place] in the last 14 days. At this time, the client does not indicate any symptoms associated with coronavirus-19. Ebola Screen: Patient denies travel to an Ebola-affected area in the 21 days before illness onset. Initial Sepsis Screen: Does the patient meet any 2 criteria? No. Patient's initial sepsis screen is negative. Does the patient have a suspected source of infection? No. Patient's initial sepsis screen is negative. Risk Assessment: Do you want to hurt yourself or someone else? Patient reports no desire to harm self or others. Onset of symptoms was June 11, 2024. 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:19 LMP N/A - Hysterectomy, Not cm10 Historical: - Allergies: 16:26 Claritin (insomnia); ll1 16:26 Compazine (Seizures); ll1 16:26 Demerol (HEART RACING); ll1 16:26 (Hives); ll1 16:26 Morphine (RACING HEART); ll1 - PMHx: 16:26 Arthritis; Anxiety; Dramatic migraine events; Diabetes - NIDDM; High Cholesterol; ll1 insomnia; bowel obstruction (Anxiety); spinal stenosis; Chronic pain; Pancreatitis; Migraines; Hypertension; Gastroparesis; Chrohns; - PSHx: 16:26 mass removed from breast; Knee sx x 2; Tonsillectomy; Total abdominal hysterectomy; ll1 Cholecystectomy; tumor removed from septum; - Immunization history:: Adult Immunizations up to date. - Infectious Disease History:: Denies. - Social history:: Smoking status: Patient denies any tobacco usage or history of. Screenin:[facility] ED Fall Risk Assessment (Adult) History of falling in the last 3 months, ld1 including since admission No falls in past 3 months (0 pts) Confusion or Disorientation No (0 pts) Intoxicated or Sedated No (0 pts) Impaired Gait No (0 pts) Mobility Assist Device Used No (0 pt) Altered Elimination No (0 pt) Score/Fall Risk Level 0 - 2 = Low Risk Oriented to surroundings, Hourly rounding (assess needs \T\ fall precautionary measures) done. Abuse screen: Denies threats or abuse. Denies injuries from another. Nutritional screening: No deficits noted. Tuberculosis screening: No symptoms or risk factors identified. Assessment: 17:51 General: Appears in no apparent distress. uncomfortable, Behavior is calm, cooperative, ld1 appropriate for age. Pain: Complains of pain in suprapubic area Pain does not radiate. Pain currently is 8 out of 10 on a pain scale. Quality of pain is described as sharp, throbbing, Pain began 2-3 days ago. Is continuous. Neuro: Level of Consciousness is awake, alert, obeys commands, Oriented to person, place, time, situation. Cardiovascular: Capillary refill < 3 seconds Patient's skin is warm and dry. Rhythm is sinus rhythm. Respiratory: Airway is patent Respiratory effort is even, unlabored. GI: Abdomen is round non-distended, Bowel sounds present X 4 quads. Abd is soft Abdomen is tender to palpation in suprapubic area, right lower quadrant and left lower quadrant. : No signs and/or symptoms were reported regarding the genitourinary system. EENT: No signs and/or symptoms were reported regarding the EENT system. Derm: No signs and/or symptoms reported regarding the dermatologic system. Musculoskeletal: No signs and/or symptoms reported regarding the musculoskeletal system. 18:51 Reassessment: Patient appears in no apparent distress at this time. No changes from ld1 previously documented assessment. Vital Signs: 16:25 BP 123 / 92; Pulse 116; Resp 22; Temp 97.4; Pulse Ox 100% ; Weight 106.14 kg; Height 5 ll1 ft. 7 in. ; Pain 8/10; 18:30 BP 137 / 85; Pulse 95; Resp 16; Pulse Ox 94% ; cm10 19:00 BP 146 / 88; Pulse 90; Resp 15; Pulse Ox 96% ; cm10 16:25 Body Mass Index 36.65 (106.14 kg, 170.18 cm) ll1 16:25 Pain Scale: Adult ll1 ED Course: 16:21 Patient arrived in ED. mr 16:21 Zac Parker MD is Attending Physician. sp3 16:26 Triage completed. ll1 17:51 Shirley Pelaez, RN is Primary Nurse. ld1 17:51 Patient has correct armband on for positive identification. Placed in gown. Bed in low ld1 position. Call light in reach. Side rails up X2. monitoring manager on. Pulse ox on. NIBP on. Door closed. Noise minimized. Warm blanket given. 17:51 No provider procedures requiring assistance completed. ld1 18:25 CBC with Diff Sent. cm10 18:25 CMP Sent. cm10 18:25 Lipase Sent. cm10 18:25 Lactate w/ 2H reflex if indic. Sent. cm10 18:26 Accessed peripheral vein via ultrasound, utilizing dynamic ultrasound technique Clean \T\ cm10 dry. Dressing loose. Good blood return. Flushes easily. 20g left upper arm. 18:50 CT Abd/Pelvis - IV Contrast Only In Process Unspecified. EDMS 19:18 Provided Education on: Follow-up care. cm10 19:18 IV discontinued, intact, bleeding controlled, No redness/swelling at site. Pressure cm10 dressing applied. 19:19 Arm band placed on. cm10 Administered Medications: 18:26 Drug: NS 0.9% IV 1000 ml IV at 1 bolus Per protocol; to be given as a bolus over 60 cm10 minutes Route: IV; Rate: 1 bolus; Site: left upper arm; 19:19 Follow up: Response: No adverse reaction; IV Status: Completed infusion; IV Intake: cm10 1000ml 18:30 Drug: Ondansetron IVP 4 mg IVP once; over 2 minutes Route: IVP; Site: left upper arm; cm10 19:20 Follow up: Response: No adverse reaction cm10 Medication: 17:51 VIS not applicable for this client. ld1 Intake: 19:19 IV: 1000ml; Total: 1000ml. cm10 Outcome: 19:08 Discharge ordered by . sp3 19:18 Discharged to home ambulatory, cm10 19:18 Condition: good 19:18 Discharge instructions given to patient, Instructed on discharge instructions, follow up and referral plans. medication usage, Demonstrated understanding of instructions, follow-up care, medications, Prescriptions given X 1, 19:19 Patient left the ED. cm10 Signatures: Dispatcher [employer] EDMS CardenasAngelika, Norberto Thornton mr Dimas Tomlin, RN RN ll1 Shirley Pelaez RN RN ld1 Zac Parker MD MD sp3 Luciana Boykin RN RN cm10
[2024-06-13 19:35] VITALS: TEMP 97.4
[2024-06-13 19:38] VITALS: BP 146/88; O2SAT 96
== END 2024-06-13 19:19 | disposition home or self-care (01) ==
LOC: ER 16:18
DX: R10.9 Unspecified abdominal pain (principal); R11.10 Vomiting, unspecified; E11.9 Type 2 diabetes mellitus without complications; E78.5 Hyperlipidemia, unspecified; F41.9 Anxiety disorder, unspecified
CPT/HCPCS: 96361; 85025; 81001; 36415; 83605; 83690; 80053; 74177; 96374; 99285; Q9967; J2405; J7030